=== PATIENT | female | born 1955 | race Caucasian/White ===

== ENCOUNTER 2017-11-15 12:24 | Observation (INO) | payer OTHER ==
[2017-11-15] MEDS ORDERED: HALOPERIDOL LACT 5 MG/ML INJ ONE ×2 (13:40→15:26)
[2017-11-15] MEDS ORDERED: LORazepam 2 MG/ML VIAL ONE (13:40)
--- NOTE | 2017-11-15 14:24 | RAD REPORT ---
EXAM DESCRIPTION: Wandy Single View11/15/2017 2:19 pm CLINICAL HISTORY: Chest pain COMPARISON: August 2017 FINDINGS: The lungs appear clear of acute infiltrate. The heart is normal size IMPRESSION: No acute abnormalities displayed
[2017-11-15 14:28] LABS: Protime INR 0.97
[2017-11-15 14:43] LABS: Absolute Lymphocytes (CBC) 1.6 K/uL (0.7-4.9); Absolute Monocytes 0.4 K/uL (0.1-1.3); Absolute Neutrophil 2.3 K/uL (1.8-8.0); Basophils % 0.8 % (0-1.3); Eosinophils % 2.4 % (0-4.4); Hematocrit 39.3 % (36.0-45.0); Lymphocytes % 36.5 % (15.3-44.8); MCH 28.8 pg (27.0-35.0); MCV 89.6 fL (80-100); MPV 10.2 fL (7.6-11.3); Monocytes % 9.4 % (3.3-12.3); RBC Red Blood Cell Count 4.39 M/uL (3.86-4.86)
[2017-11-15 15:08] LABS: CKMB Creatine Kinase MB 2.2 ng/ml (0.3-4.0); Potassium 3.9 mEq/L (3.6-5.0)
[2017-11-15 15:13] LABS: Albumin 3.6 g/dL (3.2-5.5); Bilirubin Direct 0.1 mg/dL (0-0.2); Bilirubin Total 0.4 mg/dL (0.3-1.2); Magnesium 1.9 mg/dL (1.8-2.5); Protein, Total 7.2 g/dL (6.0-8.3)
[2017-11-15 15:36] LABS: Barbiturates NEGATIVE; Benzodiazepines POSITIVE; Cocaine NEGATIVE; METHAMPHETAM NEGATIVE; Opiates NEGATIVE; Phencyclidine NEGATIVE; THC Cannibis NEGATIVE
[2017-11-15 16:00] LABS: Urine Blood NEGATIVE (NEG); Urine Glucose NEGATIVE (NEG); Urine Protein NEGATIVE (NEG)
--- NOTE | 2017-11-15 16:24 | RAD REPORT ---
EXAM DESCRIPTION: CT - Head Brain Wo Cont - 11/15/2017 4:13 pm CLINICAL HISTORY: Altered consciousness. COMPARISON: 08/15/2017, 06/25/2015 TECHNIQUE: All CT scans are performed using dose optimization technique as appropriate and may inclu de automated exposure control or mA/KV adjustment according to patient size. FINDINGS: No intracranial hemorrhage, hydrocephalus or extra-axial fluid collection.Moderate general ized brain atrophy is present with mild periventricular and deep white matter chronic microvascular i schemic changes.No areas of brain edema or evidence of midline shift. The paranasal sinuses and mastoids are clear. The calvarium is intact. IMPRESSION: No acute intracranial abnormality.
[2017-11-15] MEDS ORDERED: NA CHLORIDE 0.9% 1,000 ML ONE (16:38)
[2017-11-15 16:47] LABS: Urine Bacteria NONE SEEN /HPF (<20); Urine RBC <5 /HPF (NONE SEEN)
[2017-11-15 16:48] LABS: Urine Culture Reflex Order NOT NEEDED
--- NOTE | 2017-11-15 17:06 | ER ---
Nurse's Notes [facility] Name: Heidy Robison Age: 62 yrs Sex: Female : 1955 Arrival Date: 11/15/2017 Time: 12:25 Bed 3 Private MD: Diagnosis: Altered mental status, unspecified Presentation: 11/15 12:17 Presenting complaint: EMS states: pt lives with daughter and daughter left for about 45 sv minutes. Pt was found in her recliner with multiple open pill bottles around her and the counter. Unknown if pt took any pills. Pt was having visual hallucinations. Pt was cursing at EMS staff not wanting to come to the ER. Pt came into the ER with 2 point restraints d/t getting up off the stretcher en route. Pt was not able to hold a conversation with EMS staff. BS-82. Fentanyl patch to abdomen. Pt has confusion but is more confused today per daughter. Medications found around pt were Claritin, Guaifenesin, Sertraline, Excedrin, Doxepin, Ibuprofen, Latuda. Transition of care: patient was not received from another setting of care. Onset of symptoms was November 15, 2017. Care prior to arrival: Glucose check: 82 Restraints applied. 12:17 Method Of Arrival: EMS: [facility] sv 12:17 Acuity: ADELE 2 sv 12:18 Initial Sepsis Screen: Does the patient meet any 2 criteria? Altered Mental Status. No. sv Patient's initial sepsis screen is negative. Does the patient have a suspected source of infection? No. Patient's initial sepsis screen is negative. Triage Assessment: 12:30 General: Appears in no apparent distress. uncomfortable, Behavior is calm, cooperative, sv appropriate for age, Restraints taken off.. Pain: Complains of pain in left hip Pain currently is 3 out of 10 on a pain scale. EENT: No signs and/or symptoms were reported regarding the EENT system. Neuro: Level of Consciousness is awake, alert, obeys commands, Oriented to person, place, time, Speech is normal. Cardiovascular: Patient's skin is warm and dry. Respiratory: Respiratory effort is even, unlabored, Respiratory pattern is regular, symmetrical. GI: No signs and/or symptoms were reported involving the gastrointestinal system. : No signs and/or symptoms were reported regarding the genitourinary system. Derm: Skin is pink, warm \T\ dry. Musculoskeletal: bilateral hands contracted. Historical: - Allergies: 12:32 Abilify; sv 12:32 apremilast; sv 12:32 FLU VACCINE; sv 12:32 Seroquel; sv 12:32 Sulfa (Sulfonamide Antibiotics); sv - PMHx: 12:32 COPD; CVA; MAC; Lupus; RA; sv - PSHx: 12:32 Joint replacement; Gastric Bypass; ; sv - Immunization history:: Adult Immunizations up to date. - Social history:: Smoking status: Patient/guardian denies using tobacco. Screenin:29 Abuse screen: Denies threats or abuse. Denies injuries from another. Nutritional sv screening: No deficits noted. Tuberculosis screening: No symptoms or risk factors identified. Fall Risk No fall in past 12 months (0 pts). Secondary diagnosis (15 points) AMS. IV access (20 points). Ambulatory Aid- None/Bed Rest/Nurse Assist (0 pts). Gait- Normal/Bed Rest/Wheelchair (0 pts) Mental Status- Oriented to own ability (0 pts). Total Chester Fall Scale indicates Low Risk Score (25-44 pts). Fall prevention measures have been instituted. Side Rails Up X 2 Placed close to Nursing Station Frequent Obs/Assesments occuring As available Patient and Family Educated on Fall Prevention Program and strategies. Assessment: 12:35 Reassessment: See triage assessment. sv 13:10 Reassessment: Pt not cooperative, Kp NESS aware and at bedside with Dr Brown as well. sv Pt's daughter at bedside. 13:51 Reassessment: Pt refusing EKG. Pt medicated as ordered. Will try to attempt again. sv 14:00 Reassessment: Poison control called and informed of pt's status and medications she sv possibly took. Recommends 24 hour observation, toxicology workup, EKG, cardiac monitoring, IV fluids, f/u with psych. Case #[id number]. 15:20 Reassessment: Pt continues to not want to do the CT. Pt stated that she won't stay sv still for the pictures. Informed Kp NESS, medication ordered. 16:30 Reassessment: Pt. resting in room \T\ this time... family \T\ bedside. Appears to be in no rk 2 obvious distress \T\ this time. No needs voiced \T\ this time. 17:30 Reassessment: Pt. resting in room \T\ this time... mildly agitated. Iv fluids infusing. rk2 Appears to be in no obvious distress. No needs voiced \T\ this time. 18:31 Reassessment: DAUGHTER NAEEM PH# [phone], DAUGHTER RADHA PH# [phone]. tw2 18:47 Reassessment: Pt. appears to be sleeping \T\ this time, appears to be in no distress. rk2 Sitter outside room. No needs voiced \T\ this time. 19:30 Reassessment: Patient appears in no apparent distress at this time. Reassessment: Pt aa1 remains confused. Attempting to pull out IV and calling for her grand baby. Called 2nd floor to give report but was told nurse will call back. Neuro: Level of Consciousness is awake, alert, confused. Respiratory: Airway is patent Respiratory effort is even, unlabored, Respiratory pattern is regular, symmetrical. Derm: Skin is pink, warm \T\ dry. Vital Signs: 12:32 BP 158 / 98; Pulse 103; Resp 16; Temp 99.3(O); Pulse Ox 95% on R/A; sv 13:45 BP 163 / 86; Pulse 107 MON; Resp 13; Pulse Ox 100% on R/A; sv 15:07 BP 170 / 92; Pulse 112 MON; Resp 12; Pulse Ox 99% ; sv 16:00 BP 160 / 89; Pulse 117; Resp 16; Pulse Ox 99% ; sv 17:30 BP 135 / 69; Pulse 115; Resp 17; Pulse Ox 100% on R/A; rk2 18:00 BP 157 / 78; Pulse 99; Resp 17; rk2 18:30 BP 166 / 87; Pulse 103; Resp 17; rk2 19:30 BP 141 / 95; Pulse 98; Resp 18; Pulse Ox 99% on R/A; Pain 0/10; aa1 13:45 Sinus tachycardia sv 15:07 Sinus tachycardia sv ED Course: 12:25 Patient arrived in ED. sv 12:26 Eden Roblero, RORY is Primary Nurse. sv 12:27 Kp Gonzales PA is PHCP. cp 12:27 Andrei Brown MD is Attending Physician. cp 12:31 Triage completed. sv 12:35 Patient has correct armband on for positive identification. Bed in low position. Side sv rails up X2. Pulse ox on. NIBP on. Warm blanket given. Head of bed elevated. 12:52 Radiology exam delayed due to NURSE IN ROOM. sw 12:59 Patient refused EKG. at1 13:11 UDS Sent. dm5 13:20 Initial lab(s) drawn, by ED staff, sent to lab. Inserted saline lock: 22 gauge in right sv ,using aseptic technique. ankle, done by Dr Brown Blood collected. 13:30 Arm band placed on left ankle. sv 13:46 Basic Metabolic Panel Sent. sv 13:46 BNP Sent. sv 14:14 X-ray completed. Portable x-ray completed in exam room. Patient tolerated procedure sw well. 14:19 XRAY Chest (1 view) In Process Unspecified. EDMS 14:50 EKG done, by ED staff, reviewed by Kp NESS. sv 15:15 Mckeon cath inserted, using sterile technique, 16 Fr., by fl, balloon inflated, to sv gravity drainage, urine specimen collected. returned clear yellow urine. Patient tolerated poorly. 15:37 Radiology exam delayed due to PT UNABLE TO COME DOWN TO CT AT THIS TIME. kc3 16:13 CT Head Brain wo Cont In Process Unspecified. EDMS 16:13 CT completed. Patient tolerated procedure well. Patient moved back from CT. kc3 16:24 Report given to Valentina VALADEZ. sv 16:27 Primary Nurse role handed off by Eden Roblero RN sv 16:36 Valentina Waggoner, RORY is Primary Nurse. rk2 17:04 Roger Lopez DO is Hospitalizing Provider. cp 19:30 No provider procedures requiring assistance completed. Patient admitted, IV remains in aa1 place. Administered Medications: 13:51 Drug: HALdol (as decanoate) 2 mg Route: IM; Site: left gluteus; sv 14:54 Follow up: Response: No adverse reaction sv 13:51 Drug: Ativan 2 mg Route: IM; Site: left gluteus; sv 14:54 Follow up: Response: No adverse reaction sv 15:28 Drug: HALdol (as decanoate) 5 mg Route: IM; Site: left vastus lateralis; sv 16:40 Drug: NS 0.9% 1000 ml Route: IV; Rate: 1 bolus; Site: Other; rk2 19:00 Follow up: IV Status: Completed infusion aa1 Outcome: 17:05 Decision to Hospitalize by Provider. cp 19:54 Admitted to Med/surg accompanied by nurse, via stretcher, room 229, with chart, Report aa1 called to Myriam Virgen RN 19:54 Condition: stable 19:54 Discharge instructions given to patient, family, Instructed on the need for admit. 19:59 Patient left the ED. aa1 Signatures: Dispatcher [employer] EDMS Lamar Salinas, RN RN mariano5 Eden Roblero RN RN Glenys Holland RN RN aa1 Simona robison, waxer tender EKG Tat1 Gayle Johnson Corey, PA PA cp Wise, Tara, RN RN tw2 Valentina Waggoner RN RN rk2 Cindi Rowley kc3 Corrections: (The following items were deleted from the chart) 12:36 12:17 Presenting complaint: EMS states: pt lives with daughter and daughter left for sv about 45 minutes. Pt was found in her recliner with multiple open pill bottles around her and the counter. Unknown if pt took any pills. Pt was having visual hallucinations. Pt was cursing at EMS staff not wanting to come to the ER. Pt came into the ER with 2 point restraints d/t getting up off the stretcher en route. Pt was not able to hold a conversation with EMS staff. BS-82. Fentanyl patch to abdomen. Pt has confusion but is more confused today per daughter. sv
--- NOTE | 2017-11-15 17:06 | EDPHYS ---
Physician Documentation [facility] Name: Heidy Robison Age: 62 yrs Sex: Female : 1955 Arrival Date: 11/15/2017 Time: 12:25 Bed 3 Private MD: ED Physician Andrei Brown HPI: 11/15 12:31 This 62 yrs old Female presents to ER via Unassigned with complaints of cp altered mental status. 12:31 The patient presents with decreased mental status. Onset: The symptoms/episode cp began/occurred at an unknown time. 12:31 Possible causes: drug use, prescription medications. cp 12:31 Associated signs and symptoms: Pertinent negatives: chest pain, fever. Current cp symptoms: In the emergency department the patient's symptoms are unchanged from the initial presentation, despite home interventions. Patient's baseline: Neuro: alert and fully oriented, Motor: no deficits, Ambulation: walks without assistance, Speech: normal, The patient has a previous history of CVA. Daughter reports patient was hospitalized at [facility] in August 2017 for Serotonin Syndrome for approximately 1 week. Patient was discharged to rehab facility and then moved into home of another daughter. Patient was doing well and felt well enough to move back into own home with youngest daughter last week. Daughter believes patient has been taking prescribed meds of youngest daughter as patient began to seem altered for past 3 days. EMS and patient daughter report patient was found with empty bottles of prescribed medications today. Historical: - Allergies: 12:32 Abilify; sv 12:32 apremilast; sv 12:32 FLU VACCINE; sv 12:32 Seroquel; sv 12:32 Sulfa (Sulfonamide Antibiotics); sv - PMHx: 12:32 COPD; CVA; MAC; Lupus; RA; sv - PSHx: 12:32 Joint replacement; Gastric Bypass; ; sv - Immunization history:: Adult Immunizations up to date. - Social history:: Smoking status: Patient/guardian denies using tobacco. ROS: 12:35 Constitutional: Negative for body aches, chills, fever, poor PO intake. cp 12:35 Eyes: Negative for injury, pain, redness, and discharge. cp 12:35 ENT: Negative for drainage from ear(s), ear pain, sore throat, difficulty swallowing, difficulty handling secretions. 12:35 Cardiovascular: Negative for chest pain, edema, palpitations. 12:35 Respiratory: Negative for cough, shortness of breath, wheezing. 12:35 Abdomen/GI: Negative for abdominal pain, nausea, vomiting, and diarrhea, constipation, anorexia, rectal bleeding. 12:35 Back: Negative for pain at rest, pain with movement, radiated pain. 12:35 : Negative for urinary symptoms. 12:35 Skin: Negative for cellulitis, diaphoresis, rash. 12:35 Neuro: Positive for general weakness, Negative for altered mental status, dizziness, headache, syncope, near syncope. 12:35 All other systems are negative. Exam: 12:40 Constitutional: The patient appears in no acute distress, alert, awake, cp non-diaphoretic, non-toxic, well developed, well nourished. 12:40 Head/Face: Normocephalic, atraumatic. cp 12:40 Eyes: Periorbital structures: appear normal, Pupils: equal, round, and reactive to cp light and accomodation, Conjunctiva: normal, no exudate, no injection, Sclera: no appreciated abnormality, Lids and lashes: appear normal, bilaterally. 12:40 ENT: External ear(s): are unremarkable, Ear canal(s): are normal, clear, TM's: bulging, is not appreciated, bilaterally, dullness, bilaterally, erythema, is not appreciated, bilaterally, Nose: is normal, Mouth: Lips: moist, Oral mucosa: moist, Posterior pharynx: Airway: no evidence of obstruction, patent, Uvula: midline, swelling, is not appreciated, erythema, is not appreciated, exudate, is not appreciated. 12:40 Neck: ROM/movement: is normal, is supple, without pain, no range of motions limitations, no meningismus, no nuchal rigidity. 12:40 Chest/axilla: Inspection: normal, Palpation: is normal, no crepitus, no tenderness. 12:40 Cardiovascular: Rate: tachycardic, Rhythm: regular, Pulses: Pulses are 2+ in right radial artery and left radial artery. Edema: is not appreciated, JVD: is not appreciated. 12:40 Respiratory: the patient does not display signs of respiratory distress, Respirations: normal, no use of accessory muscles, no retractions, no splinting, no tachypnea, labored breathing, is not present, Breath sounds: are clear throughout, no decreased breath sounds, no stridor, no wheezing. 12:40 Abdomen/GI: Inspection: abdomen appears normal, Bowel sounds: active, all quadrants, Palpation: abdomen is soft and non-tender, in all quadrants, rebound tenderness, is not appreciated, voluntary guarding, is not appreciated, involuntary guarding, is not appreciated. 12:40 Back: pain, is absent, ROM is normal. 12:40 Musculoskeletal/extremity: Joints: All joints are normal except the bilateral metacarpal phalangeal and metatarsal phalangeal joints displays deformity, limited range of motion. 12:40 Skin: cellulitis, is not appreciated, no rash present. 12:40 Neuro: Orientation: to person, place, Not oriented to situation, Mentation: able to follow commands, slow to respond, confused, Memory: recent memory is impaired, Motor: 12:40 Psych: Behavior/mood is uncooperative. 14:50 ECG was reviewed by the Attending Physician. cp Vital Signs: 12:32 BP 158 / 98; Pulse 103; Resp 16; Temp 99.3(O); Pulse Ox 95% on R/A; sv 13:45 BP 163 / 86; Pulse 107 MON; Resp 13; Pulse Ox 100% on R/A; sv 15:07 BP 170 / 92; Pulse 112 MON; Resp 12; Pulse Ox 99% ; sv 16:00 BP 160 / 89; Pulse 117; Resp 16; Pulse Ox 99% ; sv 17:30 BP 135 / 69; Pulse 115; Resp 17; Pulse Ox 100% on R/A; rk2 18:00 BP 157 / 78; Pulse 99; Resp 17; rk2 18:30 BP 166 / 87; Pulse 103; Resp 17; rk2 19:30 BP 141 / 95; Pulse 98; Resp 18; Pulse Ox 99% on R/A; Pain 0/10; aa1 13:45 Sinus tachycardia sv 15:07 Sinus tachycardia sv MDM: 12:28 Patient medically screened. cp 13:00 Differential Diagnosis: CVA, electrolyte abnormality, alcohol intoxication, meningitis, cp overdose, TIA, UTI, volume depletion. 13:00 ED course: VSS. Patient is not candidate for tpa. Last normal reported by daughter was cp 3 days ago. 16:30 Data reviewed: vital signs, nurses notes, lab test result(s), EKG, radiologic studies, cp CT scan, plain films. 16:30 Response to treatment: the patient's symptoms have mildly improved after treatment. 16:34 Physician consultation: Roger Parraalicia [facility] was contacted at 16:35, regarding admission, cp to the telemetry unit. patient's condition, and will see patient in ED, immediately. 11/15 12:30 Order name: Basic Metabolic Panel 11/15 12:30 Order name: BNP 11/15 12:30 Order name: CBC with Diff; Complete Time: 15:07 11/15 16:05 Interpretation: Within normal limits. 11/15 12:30 Order name: Ckmb; Complete Time: 15:22 11/15 12:30 Order name: CPK; Complete Time: 15:22 11/15 12:30 Order name: LFT's; Complete Time: 15:22 11/15 16:04 Interpretation: Normal except: GLOB 3.6; A/G 1.0. 11/15 12:30 Order name: Magnesium; Complete Time: 15:22 11/15 12:30 Order name: PT-INR; Complete Time: 15:07 11/15 12:30 Order name: Ptt, Activated; Complete Time: 15:07 11/15 12:30 Order name: Troponin (emerg Dept Use Only); Complete Time: 15:07 11/15 12:31 Order name: Basic Metabolic Panel; Complete Time: 15:22 EDMS 11/15 15:22 Interpretation: Normal except: GFR 85. 11/15 12:31 Order name: BNP B-Type Natriuretic Peptide; Complete Time: 15:07 EDMS 11/15 15:07 Interpretation: Abnormal: BNP 145. 11/15 13:01 Order name: UDS 11/15 12:30 Order name: XRAY Chest (1 view); Complete Time: 15:07 11/15 12:30 Order name: Cardiac monitoring; Complete Time: 13:51 cp 11/15 12:30 Order name: CT Head Brain wo Cont; Complete Time: 16:26 cp 11/15 16:27 Interpretation: Report reviewed. 11/15 13:01 Order name: Urine Drug Screen; Complete Time: 16:03 EDMS 11/15 16:03 Interpretation: Normal except: BZO POSITIVE. 11/15 15:29 Order name: Urine Dipstick--Ancillary (enter results); Complete Time: 16:03 ag 11/15 16:04 Interpretation: Normal except: UKET 1+. cp 11/15 16:06 Order name: Urine Microscopic Only; Complete Time: 17:04 cp 11/15 17:04 Interpretation: Reviewed. cp 11/15 16:18 Order name: AMMONIA; Complete Time: 17:27 cp 11/15 17:28 Interpretation: Within normal limits: NASIM 17. cp 11/15 16:18 Order name: Lactate; Complete Time: 17:27 cp 11/15 17:27 Interpretation: LAC 7.6; Reviewed. cp 11/15 16:18 Order name: Procalcitonin cp 11/15 17:05 Order name: Brain Wo Cont EDMS 11/15 12:30 Order name: EKG - Nurse/Tech; Complete Time: 14:50 cp 11/15 12:30 Order name: IV Saline Lock; Complete Time: 13:46 cp 11/15 12:30 Order name: Labs collected and sent; Complete Time: 13:46 cp 11/15 12:30 Order name: O2 Per Protocol; Complete Time: 12:37 cp 11/15 12:30 Order name: O2 Sat Monitoring; Complete Time: 12:37 cp 11/15 12:30 Order name: Cath; Complete Time: 15:28 cp EC:50 Rate is 109 beats/min. Rhythm is regular. SC interval is normal. QRS interval is cp normal. QT interval is normal. No ST changes noted. Interpreted by me. Reviewed by me. Administered Medications: 13:51 Drug: HALdol (as decanoate) 2 mg Route: IM; Site: left gluteus; sv 14:54 Follow up: Response: No adverse reaction sv 13:51 Drug: Ativan 2 mg Route: IM; Site: left gluteus; sv 14:54 Follow up: Response: No adverse reaction sv 15:28 Drug: HALdol (as decanoate) 5 mg Route: IM; Site: left vastus lateralis; sv 16:40 Drug: NS 0.9% 1000 ml Route: IV; Rate: 1 bolus; Site: Other; rk2 19:00 Follow up: IV Status: Completed infusion aa1 Disposition: 11/15/17 17:05 Hospitalization ordered by Roger Lopez for Observation. Preliminary diagnosis is Altered mental status, unspecified. - Bed requested for Telemetry/MedSurg (observation). - Status is Observation. aa1 - Condition is Stable. - Problem is new. - Symptoms have improved. UTI on Admission? No Addendum: 12/01/2017 21:52 Co-signature as Attending Physician, Andrei Brown MD. g s Signatures: Dispatcher [employer] EDKY Eden Roblero RN RN Glenys Garcia RN RN aa1 Mallory Keith ag Kp Gonzales, PA PA cp Andrei Brown MD MD Valentina Waggoner RN RN rk2 Corrections: (The following items were deleted from the chart) 11/15 15:07 12:31 BLOOD CULTURE*+BA.LAB.BRZ ordered. EDKY EDKY 17:05 17:00 Brain With Cont ordered. [facility] EDKY 18:38 17:05 Hospitalization Ordered by Roger Lopez DO for Observation. Preliminary ag diagnosis is Altered mental status, unspecified. Bed requested for Telemetry/MedSurg (observation). Status is Observation. Condition is Stable. Problem is new. Symptoms have improved. UTI on Admission? No. cp 19:59 18:38 11/15/2017 17:05 Hospitalization Ordered by Roger Lopez DO for Observation. aa1 Preliminary diagnosis is Altered mental status, unspecified. Bed requested for Telemetry/MedSurg (observation). Status is Observation. Condition is Stable. Problem is new. Symptoms have improved. UTI on Admission? No. ag
--- NOTE | 2017-11-15 17:07 | P.HP ---
Certification for Inpatient Patient admitted to: Observation With expected LOS: <2 Midnights Patient will require the following post-hospital care: Other Practitioner: I am a practitioner with admitting privileges, knowledge of patient current condition, hospital course, and medical plan of care. Services: Services provided to patient in accordance with Admission requirements found in Title 42 Section 412.3 of the Code of Federal Regulations Patient History Date of Service: 11/15/17 Primary Care Provider: Dr. Campos([facility]); Pain-Dr. Ramey([place]) Reason for admission: Confusion History of Present Illness: 62-year-old female presented emergency room with confusion. Patient was brought in by family due to confusion. Patient had been seen at [facility] in September of 2017 for confusion. At that time she apparently overdosed on 1 of her depression medications causing serotonin syndrome. Since that time she went to rehab and eventually went home. Most recently she is staying with her daughter. She has home health and physical therapy. The patient began to have some confusion over the last several days. It is been worst. There was some concern that the patient may have overdosed on her medication. This could be pain and anxiety medication. Patient was not oriented x3. The patient recently changed to be with 1 of her other daughters. At the current time the patient is giving herself her medication. Prior to this , her daughter was giving the medication to her. In the ER the patient was evaluated. The patient was confused. She did receive Haldol and Ativan in the emergency room. Her fentanyl was taken off. On initial lab work CBC, CMP was unremarkable. Head CT showed no acute changes. Chest x-ray unremarkable. Urinalysis negative. Urine drug screen was positive for benzodiazepine. The patient was stabilize. Due to the nature of her presentation the patient was admitted for observation. I was asked to admit the patient. When I saw the patient in the ER, her confusion had resolved. She was oriented x3. She is very appropriate. Patient with multiple medical problems including mitral valve prolapse, hypertension, chronic pain, rheumatoid Fridays, depression with anxiety, and a history of MAC. Patient does not smoke or drink. She is a . Allergies flu vaccine 2011-(18-64 yrs) Allergy (Unknown, Verified 08/16/17 18:16) Shortness of breath Sulfa (Sulfonamide Antibiotics) Allergy (Unknown, Verified 08/16/17 18:16) Itching apremilast [From Otezla] Allergy (Verified 08/16/17 18:16) Unknown aripiprazole [From Abilify] Allergy (Verified 08/16/17 18:16) Unknown quetiapine fumarate [From Seroquel] Allergy (Verified 08/16/17 18:16) Unknown H1N1 vaccine Allergy (Uncoded 06/25/15 05:09) Unknown Home medications list reviewed: Yes Home Medications: Amitriptyline HCl 75 mg PO BEDTIME 08/15/17 Azithromycin 500 mg PO SEECOM 08/15/17 Baclofen 10 mg PO TIDP PRN 08/15/17 Buspirone HCl 15 mg PO TID 08/15/17 Doxepin HCl 75 mg PO BEDTIME 08/15/17 Eszopiclone [Lunesta*] 3 mg PO BEDTIME 08/15/17 Ethambutol HCl [Myambutol] 400 mg PO SEECOM 08/15/17 Hydrocodone 10/APAP 325 [[place] 10/325*] 1 tab PO Q4HP PRN 08/15/17 Hydroxychloroquine [Plaquenil*] 300 mg PO DAILY 08/15/17 Levetiracetam [Keppra*] 500 mg PO DAILY 08/15/17 Levothyroxine Sodium [Levoxyl] 100 mcg PO DAILY 08/15/17 Lorazepam [Ativan*] 0.5 mg PO TIDP PRN 08/15/17 Pregabalin [Lyrica] 100 mg PO TID 08/15/17 Rifabutin 150 mg PO SEECOM 08/15/17 Sertraline [Zoloft*] 100 mg PO BID 08/15/17 Fentanyl 1 each TD SEECOM 08/16/17 Fentanyl [Duragesic] 1 each TD SEECOM 08/16/17 Melatonin 20 mg PO BEDTIME 08/16/17 Ipratropium Mdi [Atrovent Hf Inhaler*] 200 puff IH TID PRN 08/17/17 Albuterol Neb [Proventil 0.083% Neb Soln] 2.5 mg NEB TID PRN #90 amp 08/18/17 Arformoterol Tartrate [Brovana] 15 mcg NEB BIDRESP #60 vial.neb 08/18/17 Cefuroxime [Ceftin*] 500 mg PO BID #14 tab 08/18/17 Magnesium Oxide [Mag 0X Tab] 400 mg PO DAILY #30 tab 08/18/17 Metoprolol Tartrate [Lopressor*] 25 mg PO BID 6AM 6PM #60 tab 08/18/17 Pantoprazole [Protonix Tab*] 40 mg PO DAILYAC #30 tab 08/18/17 Prednisone [Deltasone*] 10 mg PO SEECOM #15 tab 08/18/17 - Past Medical/Surgical History Diabetic: No -: History of MAC -: HTN -: Mitral valve prolapse -: Chronic pain -: Depression with anxiety -: Rheumatoid arthritis -: History of medication overdose -: History of gastric bypass -: GERD -: Hypothyroidism -: L hip replacement -: Gastric Bypass -: -: Cholecystectomy Psychosocial/ Personal History: The patient currently lives with one of her daughters. She is a . She has 4 children. - Family History Family History: Reviewed- Non-Contributory - Social History Smoking Status: Never smoker Alcohol use: No CD- Drugs: No Caffeine use: Yes Place of Residence: Home Review of Systems General: As per HPI Eyes: Unremarkable ENT: Unremarkable Respiratory: Unremarkable Cardiovascular: Unremarkable Gastrointestinal: Unremarkable Genitourinary: Unremarkable Musculoskeletal: Unremarkable Integumentary: Unremarkable Neurological: Confusion, As per HPI Lymphatics: Unremarkable Physical Examination - Physical Exam General: Alert, In no apparent distress, Oriented x3, Cooperative, Other ( Patient appropriate. Patient not suicidal) HEENT: Atraumatic, Normocephalic, PERRLA, Mucous membr. moist/pink Neck: Supple, No Thyromegaly Respiratory: Clear to auscultation bilaterally, Normal air movement Cardiovascular: Normal pulses, Regular rate/rhythm Gastrointestinal: Normal bowel sounds, Soft and benign, Non-distended, No tenderness, No masses, No rebound, No guarding Musculoskeletal: No erythema, No tenderness, No warmth Integumentary: No tenderness/swelling, No erythema, No warmth, No cyanosis Neurological: Normal speech, Normal strength at 5/5 x4 extr, Normal tone, Normal affect - Studies Laboratory Data (last 24 hrs) 11/15/17 13:30: PT 11.5, INR 0.97, APTT 28.4 11/15/17 13:30: WBC 4.5, Hgb 12.6, Hct 39.3, Plt Count 167 11/15/17 13:30: B-Natriuretic Peptide 145 H 11/15/17 13:30: Sodium 139, Potassium 3.9, BUN 8, Creatinine 0.70, Glucose 86, Magnesium 1.9, Total Bilirubin 0.4, AST 20, ALT 14, Alkaline Phosphatase 77 Assessment and Plan - Problems (Diagnosis) (1) Overdose of drug Current Visit: Yes Status: Acute Plan: Patient likely overdose on her anxiety and pain medication. Patient now back to baseline. Will continue with her normal regimen of medication. Patient not suicidal this time. Will have physical therapy assess ambulation. Will have social worker delinquency prevention reassess her mental status. Patient will need home health and physical therapy at discharge. Will reassess tomorrow. At a long discussion with the family. They understand that they will need to administer her medication to prevent overdose. This has happen once before. Will check MRI stroke protocol to rule out stroke. No signs infection at this time. No need for antibiotic therapy. Patient with history of MAC. Will treat with her medication. Qualifiers: Encounter type: initial encounter Injury intent: accidental or unintentional Qualified Code(s): T50.901A - Poisoning by unspecified drugs, medicaments and biological substances, accidental (unintentional), initial encounter (2) Dehydration Current Visit: Yes Status: Acute Plan: Will start IV fluids. Will monitor closely. (3) Acute encephalopathy Onset Date: 08/16/17 Current Visit: No Status: Acute Plan: Likely from overdose of medication. Will continue as above. (4) Bipolar disorder Current Visit: No Status: Chronic Plan: Patient with bipolar disorder. Will need to restart her medication. Qualifiers: Active/Remission status: remission status unspecified Qualified Code(s): F31.9 - Bipolar disorder, unspecified (5) Chronic pain disorder Current Visit: No Status: Chronic Plan: Patient with chronic pain. Will decrease her fentanyl patch from 125 to 100 mcg. Will provide medication. Will review home medications. (6) GERD (gastroesophageal reflux disease) Current Visit: No Status: Chronic Plan: Will continue with her medication Qualifiers: Esophagitis presence: esophagitis presence not specified Qualified Code(s) : K21.9 - Gastro-esophageal reflux disease without esophagitis (7) History of MAC infection Current Visit: No Status: Chronic Plan: Will continue with her medication (8) Hypertension Current Visit: No Status: Chronic Plan: Will continue with her medication and adjust appropriately. Qualifiers: Hypertension type: essential hypertension Qualified Code(s): I10 - Essential (primary) hypertension (9) Hypothyroidism Current Visit: No Status: Chronic Plan: Will check tsh. Will continue with her medication Qualifiers: Hypothyroidism type: unspecified Qualified Code(s): E03.9 - Hypothyroidism , unspecified (10) Insomnia Current Visit: No Status: Chronic Plan: Will continue with her medication Qualifiers: Insomnia type: unspecified Qualified Code(s): G47.00 - Insomnia, unspecified (11) Rheumatoid arthritis Current Visit: No Status: Chronic Plan: Will continue with her medication. Qualifiers: Rheumatoid arthritis location: unspecified site Rheumatoid factor presence : unspecified presence Qualified Code(s): M06.9 - Rheumatoid arthritis, unspecified Discharge Plan: Home Plan to discharge in: 24 Hours - Advance Directives Does patient have a Living Will: No Does patient have a Durable POA for Healthcare: No - Code Status/Comfort Care Code Status Assessed: Yes Time Spent Managing Pts Care (In Minutes): 55
[2017-11-15] MEDS ORDERED: ZIPRASIDONE MESYLA 20 MG/VIAL IM ONE (19:44)
[2017-11-15] MEDS ORDERED: WATER FOR INJ,STERILE 10 ML ONE (19:45)
[2017-11-15] MEDS ORDERED: ACETAMINOPHEN 500 MG TAB PO PRN (19:53)
[2017-11-15] MEDS ORDERED: WATER FOR INJ,STERILE 10 ML IM PRN (19:53)
[2017-11-15] MEDS ORDERED: LORazepam 2 MG/ML VIAL IV PRN (19:53)
[2017-11-15] MEDS ORDERED: ZIPRASIDONE MESYLA 20 MG/VIAL IM PRN (19:53)
[2017-11-15] MEDS ORDERED: ESZOPICLONE 1 MG TAB PO PRN (19:53)
[2017-11-15] MEDS ORDERED: HYDROCODONE/APAP 7.5/325 MG TAB PO PRN (19:53)
[2017-11-15] MEDS ORDERED: ONDANSETRON 4 MG/2 ML VIAL IV PRN (19:53)
[2017-11-15] MEDS: NA CHLORIDE 0.9% 1,000 ML IV SCH (19:53)
[2017-11-15] MEDS: SUCRALFATE 1 GM TABLET PO SCH (21:51)
--- NOTE | 2017-11-15 21:51 | RAD REPORT ---
EXAM DESCRIPTION: MRI - Brain Wo Cont - 11/15/2017 9:29 pm CLINICAL HISTORY: Alteration of consciousness COMPARISON: November 15 CT TECHNIQUE: Axial, sagittal, and coronal magnetic images of the brain were obtained. Contrast was not requested FINDINGS: Small areas increased signal are present within periventricular and deep white matter like ly secondary to ischemic changes secondary to small vessel disease. Diffusion-weighted/ADC mapping does not reveal evidence of acute infarction. The ventricles are normal caliber. An extra-axial fluid collection is not present The sinuses and mastoids are clear. IMPRESSION: No acute intracranial abnormality seen
[2017-11-15] MEDS: BUSPIRONE HCL 5 MG TABLET PO SCH (21:52)
[2017-11-16 00:20] LABS: Alcohol Serum/Plasma < 10 mg/dl; Salicylates Level < 4.0 mg/dl (<30)
[2017-11-16 05:16] LABS: Absolute Lymphocytes (CBC) 1.4 K/uL (0.7-4.9); Absolute Monocytes 0.4 K/uL (0.1-1.3); Absolute Neutrophil 2.9 K/uL (1.8-8.0); Basophils % 0.9 % (0-1.3); Eosinophils % 1.4 % (0-4.4); Hematocrit 40.8 % (36.0-45.0); Lymphocytes % 28.9 % (15.3-44.8); MCH 28.8 pg (27.0-35.0); MCV 89.4 fL (80-100); MPV 9.6 fL (7.6-11.3); RBC Red Blood Cell Count 4.56 M/uL (3.86-4.86)
[2017-11-16 05:23] VITALS: BMI 20.7
[2017-11-16] MEDS ORDERED: PANTOPRAZOLE 40MG TABLET PO SCH (06:30)
[2017-11-16 06:32] VITALS: O2SAT 95
--- NOTE | 2017-11-16 06:58 | EKG ---
Test Date: 2017-11-15 Test Time: 14:44:13 [employer]: FLORENCIO MEASUREMENT RESULTS: Intervals: Rate: 109 UT: 124 QRSD: 72 QT: 340 QTc: 457 [place]: P: 53 UT: 124 QRS: 15 T: 36 INTERPRETIVE STATEMENTS: Sinus tachycardia with occasional premature ventricular complexes Otherwise normal ECG Compared to ECG 08/15/2017 08:27:55 Ventricular premature complex(es) now present Electronically Signed On 11-16-17 06:58:03 CDT by Roberto Carlos Lal
[2017-11-16 07:07] LABS: Urine Appearance CLEAR; Urine Bilirubin NEGATIVE (NEG); Urine Blood NEGATIVE (NEG); Urine Color YELLOW; Urine Glucose NEGATIVE (NEG); Urine Protein NEGATIVE (NEG); Urine Urobilinogen 0.2 mg/dL (0.2-1.0); Urine pH 6.5 (5.0-7.0)
[2017-11-16 07:22] LABS: Magnesium 1.9 mg/dL (1.8-2.5); Potassium 4.3 mEq/L (3.6-5.0); Thyroid Stimulating Hormone 3.46 uIU/mL (0.34-5.60)
[2017-11-16 07:23] LABS: Urine Microscopic Reflex ORDER UMIC
[2017-11-16 07:48] LABS: Urine Bacteria >50 /HPF (<20); Urine RBC <5 /HPF (NONE SEEN)
[2017-11-16 07:49] LABS: Urine Culture Reflex Order REFLEXED
[2017-11-16] MEDS ORDERED: SERTRALINE HCL 50 MG TAB PO SCH (09:00)
[2017-11-16] MEDS ORDERED: SMZ./TMP. 800/160 MG TABLET PO SCH (09:00)
[2017-11-16] MEDS ORDERED: HYDROXYCHLOROQUINE 200MG TAB PO SCH (09:00)
[2017-11-16] MEDS ORDERED: LISINOPRIL 10 MG TAB PO SCH (09:00)
[2017-11-16] MEDS ORDERED: AMLODIPINE 5 MG TAB PO SCH (09:00)
[2017-11-16] MEDS ORDERED: ENOXAPARIN 40 MG/0.4 ML SQ SCH (09:00)
[2017-11-16] MEDS ORDERED: DULOXETINE 30 MG CAP PO SCH (09:00)
[2017-11-16] MEDS: NA CHLORIDE 0.9% 1,000 ML IV SCH (09:13)
[2017-11-16] MEDS: BUSPIRONE HCL 5 MG TABLET PO SCH ×2 (10:03→15:49)
[2017-11-16] MEDS: SUCRALFATE 1 GM TABLET PO SCH (10:03)
[2017-11-16] MEDS ORDERED: CEFTRIAXONE/SWI 1gm 1 GM/10 ML SYR IV SCH (10:30)
--- NOTE | 2017-11-16 11:42 | P.DS ---
Admission Date: 11/15/17 Discharge Date: 11/16/17 Primary Care Provider: Dr. Campos([facility]); Pain-Dr. Ramey([place]) Disposition: DC HOME/HOME HEALTH CARE Discharge Condition: GOOD Reason for Admission: Confusion Procedures: MRI brain: No acute changes noted. CT head: No acute changes noted. - Problems (1) Overdose of drug Onset Date: 11/16/17 Current Visit: Yes Status: Acute Qualifiers: Encounter type: initial encounter Injury intent: accidental or unintentional Qualified Code(s): T50.901A - Poisoning by unspecified drugs, medicaments and biological substances, accidental (unintentional), initial encounter (2) Dehydration Onset Date: 11/16/17 Current Visit: Yes Status: Acute (3) Acute encephalopathy Onset Date: 08/16/17 Current Visit: No Status: Acute (4) Bipolar disorder Onset Date: 11/16/17 Current Visit: Yes Status: Chronic Qualifiers: Active/Remission status: remission status unspecified Qualified Code(s): F31.9 - Bipolar disorder, unspecified (5) Chronic pain disorder Onset Date: 11/16/17 Current Visit: Yes Status: Chronic (6) GERD (gastroesophageal reflux disease) Onset Date: 11/16/17 Current Visit: Yes Status: Chronic Qualifiers: Esophagitis presence: esophagitis presence not specified Qualified Code(s) : K21.9 - Gastro-esophageal reflux disease without esophagitis (7) History of MAC infection Current Visit: No Status: Chronic (8) Hypertension Onset Date: 11/16/17 Current Visit: Yes Status: Chronic Qualifiers: Hypertension type: essential hypertension Qualified Code(s): I10 - Essential (primary) hypertension (9) Hypothyroidism Onset Date: 11/16/17 Current Visit: Yes Status: Chronic Qualifiers: Hypothyroidism type: unspecified Qualified Code(s): E03.9 - Hypothyroidism , unspecified (10) Insomnia Onset Date: 11/16/17 Current Visit: Yes Status: Chronic Qualifiers: Insomnia type: unspecified Qualified Code(s): G47.00 - Insomnia, unspecified (11) Rheumatoid arthritis Onset Date: 11/16/17 Current Visit: Yes Status: Chronic Qualifiers: Rheumatoid arthritis location: unspecified site Rheumatoid factor presence : unspecified presence Qualified Code(s): M06.9 - Rheumatoid arthritis, unspecified (12) Neuropathic arthritis Current Visit: Yes Status: Chronic (13) Chronic renal disease Current Visit: Yes Status: Chronic Qualifiers: Chronic kidney disease stage: stage 1 Qualified Code(s): N18.1 - Chronic kidney disease, stage 1 (14) Grief reaction Current Visit: Yes Status: Chronic Brief History of Present Illness: 62-year-old female presented emergency room with confusion. Patient was brought in by family due to confusion. Patient had been seen at [facility] in September of 2017 for confusion. At that time she apparently overdosed on 1 of her depression medications causing serotonin syndrome. Since that time she went to rehab and eventually went home. Most recently she is staying with her daughter. She has home health and physical therapy. The patient began to have some confusion over the last several days. It is been worst. There was some concern that the patient may have overdosed on her medication. This could be pain and anxiety medication. Patient was not oriented x3. The patient recently changed to be with 1 of her other daughters. At the current time the patient is giving herself her medication. Prior to this , her daughter was giving the medication to her. In the ER the patient was evaluated. The patient was confused. She did receive Haldol and Ativan in the emergency room. Her fentanyl was taken off. On initial lab work CBC, CMP was unremarkable. Head CT showed no acute changes. Chest x-ray unremarkable. Urinalysis negative. Urine drug screen was positive for benzodiazepine. The patient was stabilize. Due to the nature of her presentation the patient was admitted for observation. I was asked to admit the patient. When I saw the patient in the ER, her confusion had resolved. She was oriented x3. She is very appropriate. Patient with multiple medical problems including mitral valve prolapse, hypertension, chronic pain, rheumatoid Fridays, depression with anxiety, and a history of MAC. Patient does not smoke or drink. She is a . Hospital Course: Patient did well overnight. Patient did not have any further altered mental status changes. Acute encephalopathy likely related to overmedication. This appears to be accidental. One of the daughters reports that she may have taken one of the daughter's psychiatric medication. Family reports that she has had this happen prior. Patient was hospitalized at [facility] for a similar reason early this year. Patient is not suicidal or homicidal at this time. Patient denied suicide ideations during her stay. This was discussed in detail with family present along with geriatric social worker. They understand that the patient does not meet criteria to be hospitalized to a psychiatric facility since the patient is not a danger to herself or to others. Behavioral crisis team was called for recommendations. They explained that the patient does not meet criteria for psychiatric transfer. This was done with family, myself and social work present. They did provide a number to the daughter in the event that the patient is suicidal. This will allow for a mental health officer to come to the home to evaluate the patient. I also tried to get in contact with her psychiatrist. I left a message for the psychiatrist. I will discuss with the psychiatrist to see if the patient can be seen within the next 1-2 days to follow up this hospitalization. Patient likely has underlying bipolar disorder. Patient will be discharged home with arrangements. services tech has arranged for home health for strict monitoring and compliance with medications. Behavioral home health will also be arranged. I had a long discussion with the niece and daughter in detail concerning her case. The daughter will take care of the patient. This daughter had taking care the patient for long period of time without any problems. The daughter had reported that she felt the patient no longer needed to be with her and that is why she was at home recently. Her daughter lives in [place], [place] and is a teacher. It appears that she has been doing a good job of taking care of her. Prior to discharge I did go over medications with the daughter including frequency and dosages. I will update her list. Once I get in contact with a psychiatrist I will make arrangements so that the patient can be seen within 1- 2 days. Family understands instructions. Patient has underlying mental health issues. Patient had recent loss of . Patient may also be going through grief process. I will recommend that the patient see her psychiatrist within the next 1-2 days. Patient may require grief counseling. Patient has hypertension. She will continue with her medication-Lisinopril 10 mg daily and Norvasc 10 mg daily. Recommendation to maintain blood pressures less 150/80. Further adjustment can be done by her PCP. She is to hold her medication if BP less than 110 sys. This remained stable during her stay. Patient has hypothyroidism. Lab unremarkable. She will continue with her medication-levothyroxine 100 mcg daily. Patient likely has underlying bipolar disorder. Patient will continue with her medications. Medications were confirmed with family and pharmacy. Medications include Buspar 10 mg 1 pill 3 times a day, Cymbalta 30 mg once daily, Zoloft 100 mg once daily, Ativan 0.5 mg 1 pill twice daily as needed for anxiety. As directed above patient will need a follow up with psychiatry as an outpatient to further monitor and address. Family is to contact mental health crisis center if patient has increased behavioral changes, suicidal ideation, or homicidal tendencies. Patient has GERD. Patient will continue with her medication-Protonix 40 mg 1 pill once daily and Carafate 1 pill twice daily. Patient with chronic pain management for rheumatoid arthritis and neuropathy. Patient will continue with her current pain regimen-Lyrica 100 mg 1 pill 3 times a day and fentanyl patch 125 mcg every 3 days. Recommendation is to decrease Fentanyl to 100 mcg every 3 days. Patient is taking [place] 10/325 mg one pill 3 times a day as needed for pain. Family is to limit p.r.n. medication. Recommendations for the patient follow up with pain management to further monitor and address her condition. Patient with history of CVA. CT head and MRI of brain showed no acute stroke. She will continue with her medication-aspirin 81 mg daily. Patient with history of MAC. X-ray showed no acute findings. She will continue with her medication medications-Bactrim once daily, Zithromax 500 mg every Tuesday, Wednesdays and Fridays, rifampin 300 mg every Mondays, Wednesdays and Fridays, and Ethambutol 400 mg 4 pills every Mondays, Wednesdays and Fridays. She is to follow up with infectious disease and pulmonology as an outpatient to further monitor. Patient has history of chronic renal disease. Recommendation is to no longer use nonsteroidal anti-inflammatories. Recommend to recheck lab-BMP in 1-2 weeks to monitor progress. I will recommend to discontinue Celebrex. Recommendation for the patient to follow up with nephrology as an outpatient to further monitor. Patient with history of insomnia. Patient to continue with her medication- Lunesta 3 mg every night. Will recommend to discontinue melatonin. Patient with history of migraine headaches. She will continue with Imitrex as needed. Patient has been using p.r.n. medication including [place] and baclofen. I will recommend to limit these medications as much as possible. Fall precautions will be provided. As mentioned above home health services will be arranged to closely monitor her medications and compliance. At discharge recommendation is for the patient to have repeat lab-BMP and CBC in 1 week to monitor progress. Her PCP will need to follow up on the urine culture at discharge. Vital Signs/Physical Exam: Temp Pulse Resp BP Pulse Ox 97.5 F 98 H 18 136/77 95 11/16/17 11:33 11/16/17 11:33 11/16/17 11:33 11/16/17 11:33 11/16/17 11:33 General: Alert, In no apparent distress, Oriented x3, Cooperative HEENT: Atraumatic Neck: Supple Respiratory: Clear to auscultation bilaterally, Normal air movement Cardiovascular: Normal pulses, Regular rate/rhythm Gastrointestinal: Normal bowel sounds, Soft and benign, Non-distended, No tenderness, No masses, No rebound, No guarding Musculoskeletal: No erythema, No tenderness, No warmth Integumentary: No tenderness/swelling, No erythema, No warmth, No cyanosis Neurological: Normal speech, Normal strength at 5/5 x4 extr, Normal tone, Normal affect Lymphatics: No axilla or inguinal lymphadenopathy Laboratory Data at Discharge: WBC 4.8 K/uL (4.3-10.9) 11/16/17 04:52 Hgb 13.2 g/dL (12.0-15.0) 11/16/17 04:52 Hct 40.8 % (36.0-45.0) 11/16/17 04:52 Plt Count 173 K/uL (152-406) 11/16/17 04:52 PT 11.5 SECONDS (9.5-12.5) 11/15/17 13:30 INR 0.97 11/15/17 13:30 APTT 28.4 SECONDS (24.3-36.9) 11/15/17 13:30 Sodium 140 mEq/L (135-145) 11/16/17 04:52 Potassium 4.3 mEq/L (3.6-5.0) 11/16/17 04:52 BUN 7 mg/dL (6-20) 11/16/17 04:52 Creatinine 0.69 mg/dL (0.44-1.00) 11/16/17 04:52 Glucose 73 mg/dL (65-120) 11/16/17 04:52 Magnesium 1.9 mg/dL (1.8-2.5) 11/16/17 04:52 Total Bilirubin 0.4 mg/dL (0.3-1.2) 11/15/17 13:30 AST 20 IU/L (10-42) 11/15/17 13:30 ALT 14 IU/L (10-60) 11/15/17 13:30 Alkaline Phosphatase 77 IU/L (42-121) 11/15/17 13:30 B-Natriuretic Peptide 145 pg/ml (<=100) H 11/15/17 13:30 Home Medications: Azithromycin 500 mg PO SEECOM 08/15/17 Hydrocodone 10/APAP 325 [[place] 10/325*] 1 tab PO Q4HP PRN 08/15/17 Levothyroxine Sodium [Levoxyl] 100 mcg PO DAILY 08/15/17 Lorazepam [Ativan*] 0.5 mg PO TID 08/15/17 Fentanyl 1 each TD SEECOM 08/16/17 Fentanyl [Duragesic] 1 tab TD SEECOM 08/16/17 Pantoprazole [Protonix Tab*] 40 mg PO DAILYAC #30 tab 08/18/17 Amlodipine Besylate 10 mg PO DAILY 11/16/17 Buspirone HCl [Buspar*] 10 mg PO TID tab 11/16/17 Duloxetine HCl 30 mg PO DAILY 11/16/17 Ethambutol HCl [Myambutol] 400 mg PO SEECOM 11/16/17 Hydroxychloroquine [Plaquenil*] 200 mg PO DAILY tab 11/16/17 Lisinopril [Prinivil*] 10 mg PO DAILY tab 11/16/17 Pregabalin [Lyrica*] 100 mg PO TID 11/16/17 Rifampin 300 mg PO SEECOM 11/16/17 Sertraline [Zoloft*] 100 mg PO DAILY tab 11/16/17 Smz./Tmp. [Bactrim Ds 800 MG/160 MG*] 1 tab PO DAILY tab 11/16/17 Sucralfate [Carafate*] 1 gm PO BID tab 11/16/17 Sucralfate [Carafate*] 1 gm PO SEECOM 11/16/17 Patient Discharge Instructions: 1. Patient will need to follow up with her PCP in 1 week to follow up this hospitalization. 2. Patient presented with acute encephalopathy likely related to overmedication. This appears to be accidental. Family reports that she has had this happen prior. Patient is not suicidal or homicidal at this time. Patient denied suicide ideations during her stay. This was discussed in detail with family present along with geriatric social worker. They understand that the patient does not meet criteria to be hospitalized to a psychiatric facility since the patient is not a danger to herself or to others. Behavioral crisis team can be consulted if she has behavioral changes at home. Social work provided the number. Recommendation is the patient to follow up with psychiatry in 1-2 days to follow up this hospitalization. I will get in contact with psychiatry to confirm this. services tech has arranged for home health for strict monitoring and compliance with medications. Behavioral home health will also be arranged. 3. Patient has underlying mental health issues. Patient also had recent loss of . Patient may also be going through grief process. I will recommend that the patient see her psychiatrist within the next 1-2 days. Patient may require grief counseling. 4. Patient has hypertension. This remained stable during her stay. She will continue with her medication-lisinopril 10 mg daily and Norvasc 10 mg daily. Recommendation to maintain blood pressures less 150/ 80. Further adjustment can be done by her PCP. 5. Patient has hypothyroidism. She will continue with her medication-levothyroxine 100 mcg daily. 6. Patient likely has underlying bipolar disorder. Patient will continue with her medications. Medications were confirmed with family and pharmacy. Medications include Buspar 10 mg 1 pill 3 times a day, Cymbalta 30 mg once daily, Zoloft 100 mg once daily, Ativan 0.5 mg 1 pill twice daily as needed for anxiety. These medications will be continued at discharge. As directed above, patient will need a follow up with psychiatry as an outpatient to further monitor and address her mental health illness. Recommendation is for the patient to follow up with psychiatry within the 1-2 days. 7. Patient has GERD. Patient will continue with her medication-Protonix 40 mg 1 pill once daily and Carafate 1 pill twice daily. 8. Patient with chronic pain management for rheumatoid arthritis and neuropathy. At discharge, Patient will continue with her current pain regimen-Lyrica 100 mg 1 pill 3 times a day and fentanyl patch 125 mcg every 3 days. Recommendation is to decrease fentanyl patch to 100 mcg every 3 days. Patient is taking [place] 10/325 one pill 3 times a day as needed for pain. Family is to limit p.r.n. medication. Recommendations for the patient follow up with pain management to further monitor and address her condition. 9. Patient with history of CVA. CT head and MRI of brain showed no acute stroke. She will continue with her medication- aspirin 81 mg daily. 10. Patient with history of MAC. X-ray showed no acute findings. At discharge patient will continue with her medication medications- Bactrim once daily, Zithromax 500 mg every Tuesday, Wednesdays and Fridays, rifampin 300 mg every Mondays, Wednesdays and Fridays, and Ethambutol 400 mg 4 pills every Mondays, Wednesdays and Fridays. She is to follow up with infectious disease and pulmonology as an outpatient to further monitor. 11. Patient has history of chronic renal disease. Recommendation is to no longer use nonsteroidal anti-inflammatories is to recheck lab-BMP in 1-2 weeks to monitor progress. I will recommend to discontinue Celebrex. Recommendation for the patient to follow up with nephrology as an outpatient to further monitor. 12. Patient with history of insomnia. Patient to continue with her medication-Lunesta 3 mg at night. Recommendation to discontinue melatonin. Further adjustment can be done by her psychiatrist. 13. Patient with history of migraine headaches. She will continue with Imitrex as needed. 14. Patient has been using p.r.n. medication including [place] and baclofen. Recommendation is to limit these medications as much as possible. 15. Fall precautions will be provided. As mentioned above home health services will be arranged to closely monitor her medications and compliance. 16. At discharge recommendation is for the patient to have repeat lab-BMP and CBC in 1 week to monitor progress. Her PCP will need to follow up on the urine culture at discharge. Diet: AHA Activity: Fall precautions Time spent managing pt's care (in minutes): 75
[2017-11-16 15:30] VITALS: BP 140/78; TEMP 97.2
[2017-11-18] MEDS ORDERED: FENTANYL 100 MCG/PATCH TD SCH (09:00)
== END 2017-11-16 16:23 | disposition home health service (06) ==
LOC: ER 12:24 → ERHOLD 17:09 → 2ND 19:26
PROVIDERS: ADMIT Family Medicine; ATTEND Family Medicine
DX: G93.40 Encephalopathy, unspecified (principal); T50.901A Poisoning by unspecified drugs, medicaments and biological substances, accidental (unintentional), initial encounter; Y92.009 Unspecified place in unspecified non-institutional (private) residence as the place of occurrence of the external cause; E03.9 Hypothyroidism, unspecified; K21.9 Gastro-esophageal reflux disease without esophagitis; I12.9 Hypertensive chronic kidney disease with stage 1 through stage 4 chronic kidney disease, or unspecified chronic kidney disease; N18.1 Chronic kidney disease, stage 1; M06.9 Rheumatoid arthritis, unspecified; G47.00 Insomnia, unspecified; M14.60 Charcot's joint, unspecified site; F43.20 Adjustment disorder, unspecified; F31.9 Bipolar disorder, unspecified; E86.0 Dehydration; G89.29 Other chronic pain; Z86.73 Personal history of transient ischemic attack (TIA), and cerebral infarction without residual deficits
CPT/HCPCS: 36415; 51702; 70450; 70551; 71045; 80048 ×2; 80076; 80307 ×9; 80320; 80329 ×2; 82140; 82550; 82553; 83605; 83735 ×2; 83880; 84145; 84439; 84443; 84484; 85025 ×2; 85610; 85730; 87077 ×2; 87086; 87088; 87186 ×2; 93005; 96360; 96361; 96372; 97163; 99285; G0378 ×2; J0696; J1630 ×2; J1650; J3486; J7030; 81003; 81015

== ENCOUNTER 2018-05-12 01:16 | Emergency (ER) | payer OTHER ==
[2018-05-12] MEDS ORDERED: NA CHLORIDE 0.9% 1,000 ML ONE (01:51)
[2018-05-12 02:06] LABS: Absolute Lymphocytes (CBC) 0.9 K/uL (0.7-4.9); Absolute Monocytes 0.5 K/uL (0.1-1.3); Basophils % 1.8 % (0-1.3); Eosinophils % 2.4 % (0-4.4); Hematocrit 32.4 % (36.0-45.0); Lymphocytes % 16.1 % (15.3-44.8); MCH 27.6 pg (27.0-35.0); MPV 8.7 fL (7.6-11.3); Monocytes % 9.1 % (3.3-12.3); RBC Red Blood Cell Count 3.86 M/uL (3.86-4.86)
[2018-05-12 02:27] LABS: ALT/SGPT 20 U/L (12-78); AST/SGOT 21 U/L (15-37); Albumin 3.2 g/dL (3.4-5.0); Alkaline Phosphatase 93 U/L (45-117); BUN Blood Urea Nitrogen 14 mg/dL (7-18); Bicarbonate 24 mmol/L (21-32); Bilirubin Total 0.3 mg/dL (0.2-1.0); Glucose Level 121 mg/dL (74-106); Potassium 3.5 mmol/L (3.5-5.1); Protein, Total 7.5 g/dL (6.4-8.2); Sodium Level 140 mmol/L (136-145)
--- NOTE | 2018-05-12 02:48 | EDPHYS ---
Physician Documentation [facility] Name: Heidy Robison Age: 63 yrs Sex: Female : 1955 Arrival Date: 05/12/2018 Time: 01:18 Bed 6 Private MD: ED Physician Elroy Baldwin HPI: 05/12 01:18 This 63 yrs old Female presents to ER via Unassigned with complaints of ps1 unintentional overdose of trazodone. 01:18 Patient was starting trazodone and got her medications confused with her regularly ps1 prescribed medication. She took 5x50 mg tablets. She is presenting with anxiety and palpitations. No SI/HI. . Historical: - Allergies: 01:21 Abilify; bb 01:21 apremilast; bb 01:21 FLU VACCINE; bb 01:21 Seroquel; bb 01:21 Sulfa (Sulfonamide Antibiotics); bb - Home Meds: 01:21 Trazodone Oral [Active]; BuSpar Oral [Active]; amlodipine oral [Active]; Carafate Oral bb [Active]; - PMHx: 01:21 COPD; CVA; Lupus; MAC; RA; bb - Immunization history:: Adult Immunizations up to date. - Social history:: Smoking status: Patient/guardian denies using tobacco, Patient/guardian denies using alcohol. - Ebola Screening: : No symptoms or risks identified at this time. ROS: 01:18 Constitutional: Negative for fever, chills, and weight loss, Eyes: Negative for injury, ps1 pain, redness, and discharge, Respiratory: Negative for shortness of breath, cough, wheezing, and pleuritic chest pain, Abdomen/GI: Negative for abdominal pain, nausea, vomiting, diarrhea, and constipation, MS/Extremity: Negative for injury and deformity, Skin: Negative for injury, rash, and discoloration. 01:18 Cardiovascular: Positive for palpitations. 01:18 Psych: Positive for anxiety. Exam: 01:18 Constitutional: This is a well developed, well nourished patient who is awake, alert, ps1 and in no acute distress. Head/Face: Normocephalic, atraumatic. Eyes: Pupils equal round and reactive to light, extra-ocular motions intact. Lids and lashes normal. Conjunctiva and sclera are non-icteric and not injected. Chest/axilla: Normal chest wall appearance and motion. Nontender with no deformity. No lesions are appreciated. Respiratory: Lungs have equal breath sounds bilaterally, clear to auscultation and percussion. No rales, rhonchi or wheezes noted. No increased work of breathing, no retractions or nasal flaring. Abdomen/GI: Soft, non-tender, with normal bowel sounds. No distension or tympany. No guarding or rebound. No evidence of tenderness throughout. 01:18 Skin: Warm, dry with normal turgor. Normal color with no rashes, no lesions, and no evidence of cellulitis. MS/ Extremity: Pulses equal, no cyanosis. Neurovascular intact. Full, normal range of motion. Neuro: Awake and alert, GCS 15, oriented to person, place, time, and situation. Cranial nerves II-XII grossly intact. Sensory grossly intact. 01:18 Cardiovascular: Rate: tachycardic, Rhythm: regular, Pulses: no pulse deficits are appreciated. 01:18 Psych: Behavior/mood is anxious. Vital Signs: 01:21 BP 143 / 89; Pulse 114; Resp 18 S; Temp 98.2(O); Pulse Ox 96% on R/A; Weight 56.7 kg bb (R); Height 5 ft. 5 in. (165.10 cm) (R); Pain 0/10; 01:56 BP 143 / 78; Pulse 98; Resp 18; Pulse Ox 98% on R/A; tl2 02:46 BP 163 / 73; Pulse 97; Resp 18; Pulse Ox 95% on R/A; tl2 01:21 Body Mass Index 20.80 (56.70 kg, 165.10 cm) bb MDM: 01:29 Patient medically screened. ps1 02:46 Data reviewed: vital signs, nurses notes, lab test result(s), EKG, and as a result, I ps1 will discharge patient, patient took an otherwise prescription strength dose of Trazodone. Symptoms resolved, vitals WNL. Stable for discharge. . Counseling: I had a detailed discussion with the patient and/or guardian regarding: the historical points, exam findings, and any diagnostic results supporting the discharge/admit diagnosis, the presence of at least one elevated blood pressure reading (>120/80) during this emergency department visit, lab results, to return to the emergency department if symptoms worsen or persist or if there are any questions or concerns that arise at home. 05/12 01:23 Order name: CBC with Diff; Complete Time: 02:35 ps1 05/12 01:23 Order name: CMP; Complete Time: 02:35 ps1 05/12 01:24 Order name: Salicylate; Complete Time: 02:44 ps1 05/12 01:24 Order name: Acetaminophen; Complete Time: 02:35 ps1 05/12 01:23 Order name: EKG - Nurse/Tech; Complete Time: 01:31 ps1 05/12 01:24 Order name: EKG; Complete Time: 01:24 ps1 05/12 01:24 Order name: IV Saline Lock; Complete Time: 01:47 ps1 05/12 01:24 Order name: Labs collected and sent; Complete Time: 01:56 ps1 EC:32 Rate is 105 beats/min. Rhythm is regular. QRS [place] is Normal. LA interval is normal. ps1 QRS interval is normal. QT interval is normal at 454 msec. No Q waves. T waves are Normal. T waves are Flattened in lead V2. No ST changes noted. Clinical impression: NSR w/ Non-specific ST/T Changes. Interpreted by me. Administered Medications: 01:47 Drug: NS 0.9% 1000 ml Route: IV; Rate: 1 bolus; Site: Other; tl2 03:15 Follow up: IV Status: Completed infusion tl1 Disposition: 05/12/18 02:48 Discharged to Home. Impression: Accidental or unintentional overdose. - Condition is Stable. - Discharge Instructions: Accidental Overdose. - Medication Reconciliation Form, Thank You Letter, Antibiotic Education, Prescription Opioid Use form. - Follow up: Private Physician; When: As needed; Reason: Recheck today's complaints, Continuance of care, Re-evaluation by your physician. Follow up: Emergency Department; When: As needed; Reason: Worsening of condition. - Problem is new. - Symptoms are resolved. Signatures: Dispatcher [employer] EDMS Janis Bradshaw RN RN Marimar Rojas, RN RN tl1 Kathy Valiente RN RN tl2 Elroy Baldwin MD MD ps1 Corrections: (The following items were deleted from the chart) 01:25 01:24 BASIC METABOLIC PANEL+[id number].LAB.BRZ ordered. EDMS EDMS 03:16 01:24 Urine Dipstick-Ancillary ordered. ps1 tl1 03:17 02:48 05/12/2018 02:48 Discharged to Home. Impression: Accidental or unintentional tl1 overdose. Condition is Stable. Forms are Medication Reconciliation Form, Thank You Letter, Antibiotic Education, Prescription Opioid Use. Follow up: Private Physician; When: As needed; Reason: Recheck today's complaints, Continuance of care, Re-evaluation by your physician. Follow up: Emergency Department; When: As needed; Reason: Worsening of condition. Problem is new. Symptoms are resolved. ps1
--- NOTE | 2018-05-12 02:48 | ER ---
Nurse's Notes [facility] Emergency Department Name: Heidy Robison Age: 63 yrs Sex: Female : 1955 Arrival Date: 05/12/2018 Time: :18 Bed 6 Private MD: Diagnosis: Accidental or unintentional overdose Presentation: 05/12 01:18 Presenting complaint: EMS states: they were toned out for report of pt taking an bb accidental overdose of Trazodone which was 5 of 50 mg tablets pt c/o elevated heart rate. Transition of care: patient was not received from another setting of care. Onset of symptoms was May 12, 2018. Risk Assessment: Do you want to hurt yourself or someone else? Patient reports no desire to harm self or others. Initial Sepsis Screen: Does the patient meet any 2 criteria? No. Patient's initial sepsis screen is negative. Does the patient have a suspected source of infection? No. Patient's initial sepsis screen is negative. Care prior to arrival: Glucose check: 219. 01:18 Method Of Arrival: EMS: [facility] bb 01:18 Acuity: ADELE 3 bb Historical: - Allergies: 01:21 Abilify; bb 01:21 apremilast; bb 01:21 FLU VACCINE; bb 01:21 Seroquel; bb 01:21 Sulfa (Sulfonamide Antibiotics); bb - Home Meds: 01:21 Trazodone Oral [Active]; BuSpar Oral [Active]; amlodipine oral [Active]; Carafate Oral bb [Active]; - PMHx: 01:21 COPD; CVA; Lupus; MAC; RA; bb - Immunization history:: Adult Immunizations up to date. - Social history:: Smoking status: Patient/guardian denies using tobacco, Patient/guardian denies using alcohol. - Ebola Screening: : No symptoms or risks identified at this time. Screenin:18 Abuse screen: Denies threats or abuse. Nutritional screening: No deficits noted. tl2 Tuberculosis screening: No symptoms or risk factors identified. Fall Risk None identified. Assessment: :18 General: Appears in no apparent distress. uncomfortable, Behavior is cooperative, tl2 appropriate for age, anxious. Pain: Complains of pain in headache. Neuro: Level of Consciousness is awake, alert, obeys commands, Oriented to person, place, time, situation. Cardiovascular: Denies chest pain. Respiratory: Airway is patent Respiratory effort is even, unlabored, Respiratory pattern is regular, symmetrical. GI: No signs and/or symptoms were reported involving the gastrointestinal system. : No signs and/or symptoms were reported regarding the genitourinary system. Derm: Skin is pink, warm \T\ dry. 02:47 Reassessment: Patient appears in no apparent distress at this time. No changes from tl2 previously documented assessment. Patient and/or family updated on plan of care and expected duration. Pain level reassessed. Patient is alert, oriented x 3, equal unlabored respirations, skin warm/dry/pink. Pt up to restroom. Vital Signs: 01:21 BP 143 / 89; Pulse 114; Resp 18 S; Temp 98.2(O); Pulse Ox 96% on R/A; Weight 56.7 kg bb (R); Height 5 ft. 5 in. (165.10 cm) (R); Pain 0/10; 01:56 BP 143 / 78; Pulse 98; Resp 18; Pulse Ox 98% on R/A; tl2 02:46 BP 163 / 73; Pulse 97; Resp 18; Pulse Ox 95% on R/A; tl2 01:21 Body Mass Index 20.80 (56.70 kg, 165.10 cm) bb ED Course: 01:18 Patient arrived in ED. am2 01:18 Elroy Baldwin MD is Attending Physician. ps1 01:18 Patient has correct armband on for positive identification. Bed in low position. Call tl2 light in reach. Side rails up X2. 01:19 Triage completed. bb 01:21 Arm band placed on Patient placed in an exam room, on a stretcher, on pulse oximetry. bb 01:37 EKG done, by ED staff, reviewed by Elroy Baldwin MD. ds4 01:50 Inserted saline lock: 20 gauge in left ,using aseptic technique. foot placed by 2 tech. Rao 03:14 No provider procedures requiring assistance completed. IV discontinued, intact, tl1 bleeding controlled, No redness/swelling at site. Pressure dressing applied. Administered Medications: 01:47 Drug: NS 0.9% 1000 ml Route: IV; Rate: 1 bolus; Site: Other; tl2 03:15 Follow up: IV Status: Completed infusion tl1 Outcome: 02:48 Discharge ordered by . ps1 03:14 Discharged to home via Taxi tl1 03:14 Condition: good 03:14 Discharge instructions given to patient, Instructed on discharge instructions, follow up and referral plans. Demonstrated understanding of instructions, follow-up care. 03:17 Patient left the ED. tl1 Signatures: Janis Bradshaw RN RN bb Rao Reveles ds4 Marimar Zepeda RN RN tl1 Kathy Valiente RN RN tl2 Simona Jordan am2 Elroy Baldwin MD MD ps1 Corrections: (The following items were deleted from the chart) 01:50 01:18 Inserted saline lock: 20 gauge in left ,using aseptic technique. foot placed by tl2 Rao, ochoa tl2
[2018-05-12 03:30] VITALS: TEMP 98.2
[2018-05-12 03:31] VITALS: BP 163/73; O2SAT 95
--- NOTE | 2018-05-12 08:57 | EKG ---
Test Date: 2018-05-12 Test Time: 01:32:44 Ground Systems Engineer: JOSE J MEASUREMENT RESULTS: Intervals: Rate: 105 DC: 126 QRSD: 72 QT: 344 QTc: 454 [place]: P: 32 DC: 126 QRS: -2 T: -1 INTERPRETIVE STATEMENTS: Sinus tachycardia Nonspecific T wave abnormality Abnormal ECG Compared to ECG 11/15/2017 14:44:13 T-wave abnormality now present Ventricular premature complex(es) no longer present Electronically Signed On 05-12-18 08:56:52 CDT by Roberto Carlos Lal
== END 2018-05-12 03:17 | disposition home or self-care (01) ==
LOC: ER 01:16
DX: T43.211A Poisoning by selective serotonin and norepinephrine reuptake inhibitors, accidental (unintentional), initial encounter (principal); J44.9 Chronic obstructive pulmonary disease, unspecified; Z88.2 Allergy status to sulfonamides; Z88.7 Allergy status to serum and vaccine; Z88.8 Allergy status to other drugs, medicaments and biological substances
CPT/HCPCS: 36415; 80053; 80329 ×2; 85025; 93005; 96360; 99284; J7030

== ENCOUNTER 2019-03-20 18:00 | Inpatient (IN) | payer OTHER ==
--- OUTSIDE RECORDS SUMMARY | 2019-03-20 18:03 | XMS REPORT | Summary of Care ---
:1955 Author Organization [facility] Address [address] [place] [id number] Care Team Providers Name Role Phone Wally Angulo Primary Care Provider Wally Angulo Insurance [employer] Bernabe Poe MD Unavailable Sophia Fisher [facility] [place] [employer] Operator Unavailable Reason for Visit Reason Comments Rx Concern/Question Encounter Details Date Type Department Care Team Description 02/02/2019 Telephone [facility] Anesthesia Doulatram, Rx Concern/Question [facility] MD Ciro [address] [id number] [place], [place] [id number] Allergies Active Allergy Reactions Severity Noted Date Comments Aripiprazole Unknown - See comments 04/10/2014 Symptoms of tardive dyskinesia Patient states that she is currently taking medication. Quetiapine Fumarate Unknown - See comments 03/05/2014 tremors Sulfasalazine Hives 01/21/2011 documented as of this encounter (statuses as of 02/02/2019) Medications Medication Sig Dispensed Refills Start End Status Date Date MULTIPLE VITAMINS DAILY 2 pills a day 0 Active ORAL TAB fluticasone (FLONASE) Use 1 [place] in each 1 Bottle 2 Active 50 mcg/actuation nasal nostril daily. 4 spray SERTraline (ZOLOFT) 100 Take 2 tablets by 60 tablet 1 Active mg tablet mouth at bedtime. 6 tazarotene (TAZORAC) Apply to area(s) at 60 g 1 Active 0.05 % cream bedtime. For thick 6 plaques not improving with other medications. triamcinolone acetonide Apply to area(s) 2 454 g 2 Active 0.1 % cream (two) times daily as 7 needed (Psoriasis on trunk and extremities). mupirocin (BACTROBAN) 2 Apply to area(s) 22 g 1 Active % ointmentIndications: daily. 7 Bilateral great toes ulcers Mucus Clearing Device Use as directed 1 Device 0 Active (FLUTTER) Rebecca 7 levETIRAcetam (KEPPRA) Take 500 mg by mouth 0 Active 500 mg tablet daily. melatonin 10 mg Take by mouth at 0 Active TabIndications: Take 2 bedtime. tabs Indications: Take 2 tabs magnesium oxide 400 mg TK 1 T PO D 0 Active tablet 8 metoprolol tartrate 25 TK 1 T PO BID AT 6 180 tablet 3 Active mg tablet AM AND AT 6 PM 8 DULoxetine 30 mg Take 30 mg by mouth 0 Active capsule daily. Diclofenac Epolamine Apply to skin once 30 Patch 3 Active (FLECTOR) 1.3 % patch daily as needed for 8 Pain (scale 4-6). triamcinolone acetonide Apply to area(s) 2 454 g 0 Active 0.1 % ointment (two) times daily. 8 As needed. Avoid face, groin, axillae calcipotriene-betametha Apply to area(s) 60 g 1 Active sone (TACLONEX) daily. For scalp 8 0.005-0.064 % external suspension albuterol 90 Inhale 2 Puffs every 8.5 g 11 Active mcg/actuation inhaler 6 (six) hours as 8 needed for Wheezing or Shortness of Breath. albuterol 2.5 mg /3 mL Inhale 3 mL every 6 75 Vial 11 Active (0.083 %) nebulizer (six) hours as 8 solution needed for Wheezing or Shortness of Breath. sodium chloride Inhale 1 Vial 2 60 Vial 11 Active (HYPER-TYLER) 3.5 % Nebu (two) times daily. 8 pantoprazole 40 mg EC Take 1 tablet by 180 tablet 1 Active tablet mouth 2 (two) times 8 daily. ergocalciferol, vitamin Take 1 capsule by 1 capsule 3 Active d2, 50,000 unit mouth every 4 (four) 9 capsuleIndications: weeks. Other osteoporosis without current pathological fracture, Vitamin D deficiency, Essential hypertension, benign, Major depressive disorder, recurrent episode, moderate, Psoriatic arthritis, Psychophysiological insomnia SUCRALFATE 1 gram TAKE 1 TABLET BY 120 tablet 2 Active tablet MOUTH BEFORE MEALS 9 AND AT BEDTIME baclofen 10 mg tablet Take 1 tablet by 90 tablet 2 Active mouth 3 (three) 9 times daily. OTEZLA STARTER 10 mg 0 Active (4)-20 mg (4)-30 mg 9 (47) DsPk cyanocobalamin (VITAMIN 1 mL by 30 mL 0 Active B-12) 1,000 mcg/mL Intramuscular route 9 injectionIndications: weekly. Osteopenia of both hips pregabalin (LYRICA) 150 Take 1 capsule by 90 capsule 3 Active mg capsule mouth 3 (three) 9 times daily. TRAZODONE 100 mg TAKE 1 TABLET BY 30 tablet 0 Active tabletIndications: MOUTH AT BEDTIME 9 Depression, unspecified depression type Diclofenac Sodium Apply to area(s) 2 100 g 3 Active (VOLTAREN) 1 % (two) times daily. 9 gelIndications: Rheumatoid arthritis involving both hands, unspecified rheumatoid factor presence Fluticasone-Salmeterol Inhale 1 Puff every 60 Each 11 Active (ADVAIR DISKUS) 500-50 12 (twelve) hours. 9 mcg/dose inhalation diskIndications: Pulmonary emphysema, unspecified emphysema type fluticasone-salmeterol Inhale 2 Puffs 2 12 g 11 Active (ADVAIR HFA) 230-21 (two) times daily. 9 mcg/actuation inhalerIndications: Dyspnea, unspecified type celecoxib 200 mg Take 1 capsule by 30 capsule 3 Active capsuleIndications: mouth daily. 9 Psoriatic arthritis, Psoriasis, Chronic pain syndrome, Seizure disorder OTEZLA 30 mg tablet TAKE 1 TABLET BY 180 tablet 0 Active MOUTH TWICE DAILY 9 metoclopramide HCl 5 mg Take 1 tablet by 60 tablet 0 Active tabletIndications: mouth 2 (two) times 9 Abdominal pain, daily as needed for unspecified abdominal Nausea and Vomiting location (N/V) or Gastroesophageal reflux. busPIRone 15 mg TAKE 1 TABLET BY 90 tablet 0 Active tabletIndications: MOUTH 3 TIMES DAILY 9 Depression, unspecified depression type ESZOPICLONE 3 mg TAKE 1 TABLET BY 90 tablet 0 Active tabletIndications: MOUTH AT BEDTIME 9 Persistent insomnia NEEDED FOR INSOMNIA LISINOPRIL 10 mg tablet TAKE 2 TABLETS BY 180 tablet 0 Active MOUTH DAILY 9 LEVOTHYROXINE 100 mcg TAKE 1 TABLET BY 90 tablet 1 Active tabletIndications: MOUTH ONCE DAILY 9 Hypothyroidism, unspecified type FENTanyl 100 mcg/hr Apply 1 Patch to 10 Patch 0 Active patchIndications: skin every 72 9 Psoriatic arthropathy (seventy-two) hours. FENTanyl 25 mcg/hr Apply 1 Patch to 10 Patch 0 Active patchIndications: skin every 72 9 Chronic pain syndrome (seventy-two) hours. HYDROcodone-acetaminoph Take 1 pill by mouth 150 tablet 0 Active en (NORCO) 10-325 mg every 4 hours as 9 tabletIndications: needed for pain, Max Psoriatic arthropathy, 6 daily Chronic pain syndrome SUMATRIPTAN 25 mg TAKE 1 TABLET BY 9 tablet 0 Active tabletIndications: MOUTH ONCE DAILY 9 Nonintractable NEEDED FOR MIGRAINE. headache, unspecified REPEAT IN 2HOURS IF chronicity pattern, NO RELIEF. MAX 100MG unspecified headache IN A DAY NO MORE type THAN 400MG PER MONTH AMLODIPINE 10 mg tablet TAKE 1 TABLET BY 90 tablet 1 Active MOUTH DAILY 9 LORAZEPAM 0.5 mg TAKE 1 TABLET BY 60 tablet 0 Active tabletIndications: MOUTH TWICE DAILY 9 Anxiety NEEDED FOR ANXIETY documented as of this encounter (statuses as of 02/02/2019) Active Problems Patient Care Coordination Note Hypertension (High Blood Pressure) Plan of Care My Hypertension Goals are the following: ? Strive for a normal blood pressure of less than 150/90 ? Cholesterol- LDL ( Bad cholesterol )- less than 130 (if I have diabetes and heart disease goal is less than 70) ? Total Cholesterol- less than 200 ? Lose weight if overweight or obese and follow the Weight Loss Care Plan ? Stop smoking and avoid second hand smoke My Hypertension Care Plan includes the following: ? Check and record blood pressure at least once a week and write results on blood pressure log ? Exercise at least 30 minutes a day 5 days a week. This can be in three 10 minute intervals ? Maintain a healthy weight ? Follow a DASH diet (Dietary Approaches to Stop Hypertension) o Eat a diet rich in fruits, vegetables, and low fat dairy products and low in saturated and total fat o Reduce dietary sodium to below 1500mg per day o Limit alcohol to two drinks per day for most men and one drink per day for most women and stack attendant weight men ? If I am a smoker, stop smoking ? Manage stress by identifying three ways to reduce stress ? [employer] ([email or web address]/[employer] LIST) is an online tool that will allow me to review lab results and portions of my health record, and to communicate with healthcare providers as needed. If I do not have a [employer] account, I will discuss this with my healthcare team Problem Noted Date Anemia 08/30/2018 Psychophysiological insomnia 07/26/2018 Immunization counseling 04/28/2018 H/O foreign body aspiration 09/01/2017 Overview: [place] Pneumonia of left lower lobe due to infectious organism 08/29/2017 Esophageal foreign body 08/09/2017 Dyspnea 02/09/2017 Pulmonary Mycobacterium avium complex (MAC) infection 01/17/2017 MARY CARMEN (acute kidney injury) 11/15/2016 Pulmonary emphysema, unspecified emphysema type 05/26/2016 Lumbosacral spondylosis with radiculopathy 02/16/2016 Osteoporosis 12/08/2015 Overview: at wrist. osteopenia at hip and back. 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 Actinic keratoses 12/18/2013 Status post gastric bypass for obesity 01/26/2013 Anxiety disorder 06/05/2012 Hereditary nonpolyposis colorectal cancer syndrome 04/26/2012 S/P total abdominal hysterectomy and bilateral salpingo-oophorectomy 2011 Major depressive disorder, recurrent episode, moderate 12/23/2011 Pelvic floor dysfunction 04/28/2011 Atrophic vaginitis 02/08/2011 Urinary incontinence 02/08/2011 Lupus 01/21/2011 Vitamin D deficiency 04/29/2010 Psoriatic arthritis 02/24/2010 Essential hypertension, benign 11/26/2008 Sicca syndrome 10/29/2008 Mixed incontinence urge and stress (male)(female) 10/09/2002 Ulcerative (chronic) ileocolitis Overview: Pt has history of blood in the stools and was evaluated by a GI library sales consultant in [place] about 10 years ago who told her she had then inflammatory bowel disease. However, she has been basically asymptomatic since except for functional bowel symptoms Chronic pain syndrome Overview: As part of the fibromyalgia Rheumatoid arthritis Overview: ICD10 Diagnosis Term Global Program Director Utility documented as of this encounter (statuses as of 02/02/2019) Resolved Problems Problem Noted Date Resolved Date Troponin I above reference range 11/15/2016 12/01/2016 Hypoxia 11/15/2016 04/18/2017 Acidosis 11/14/2016 04/18/2017 Hypotension 11/14/2016 12/01/2016 COPD (chronic obstructive pulmonary disease) 12/08/2015 05/26/2016 Long-term use of immunosuppressant medication 03/11/2015 12/01/2016 Chronic pain 03/11/2015 07/01/2016 Atypical mycobacterial infection 03/11/2015 09/01/2017 History of pneumonia 03/11/2015 12/01/2016 Osteoporosis 10/02/2014 12/08/2015 COPD exacerbation 07/18/2014 04/18/2017 Breast mass 05/31/2014 12/08/2015 Foot lesion 05/23/2014 05/31/2014 Screening for endocrine, nutritional, metabolic and immunity 05/17/201412/07 disorder H/O atypical mycobacterial infection 02/07/2014 09/01/2017 Mycobacterial disease 10/24/2013 02/07/2014 SOB (shortness of breath) 08/23/2013 04/18/2017 Recurrent UTI 04/04/2013 05/26/2016 Encounter for long-term (current) use of steroids 01/09/2013 12/08/2015 Urinary tract infection, site not specified 12/12/2012 01/26/2013 Overview: Uti Persistent disorder of initiating or maintaining sleep 10/30/2012 12/08/2015 Therapeutic drug monitoring 06/06/2012 12/08/2015 Therapeutic drug monitoring 08/02/2011 12/29/2011 Hip pain, left 08/02/2011 12/29/2011 Rheumatoid arthritis 03/18/2011 04/04/2013 Overview: ICD10 Diagnosis Term Global Program Director Utility Encounter for long-term (current) use of steroids 09/04/2010 12/29/2011 Personal history of other diseases of digestive system 09/04/2010 12/29/2011 Urinary tract infection, site not specified 07/07/2010 12/29/2011 Osteopenia 06/08/2010 12/08/2015 Osteoporosis screening 04/24/2010 12/29/2011 Post-operative state 03/17/2010 12/29/2011 Gangrene 02/17/2010 12/29/2011 Pain in joint, multiple sites 02/09/2010 12/29/2011 Foot infection 11/17/2009 12/29/2011 Feeding difficulties and mismanagement 12/03/2008 12/29/2011 Intestinal bypass or anastomosis status 10/29/2008 01/26/2013 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 Has never received Enbrel or Humira. Rheumatism and fibrositis 10/29/2008 Overview: ICD10 Diagnosis Term Global Program Director Utility Irritable bowel syndrome 12/29/2011 Overview: Has periods of constipation alternating with loose stools off and on. Hypothyroidism 10/05/2015 Overview: ICD10 Diagnosis Term Global Program Director Utility Chronic pain syndrome 12/29/2011 Overview: As part of the fibromyalgia Psoriatic arthropathy 01/05/2015 documented as of this encounter (statuses as of 02/02/2019) Immunizations Name Administration Dates Next Due H1n1 Vaccine 07/03/2009 Influenza High Dose 04/11/2018 Influenza Virus Vaccine 05/16/2012, 03/18/2011, 06/08/2010, 05/10/2007 Influenza Virus Vaccine (3+ yrs) 04/04/2013 Influenza Virus Vaccine Quad ID [id number] 04/11/2018 (Deferred: Vaccine YRS Unavailable) Influenza Virus Vaccine Quad IM 3+ 04/15/2017, 04/24/2014 YRS Pneumococcal 13 Conjugate, PCV13 04/14/2015 (Prevnar 13) Pneumococcal Polysaccharide, PPSV23 08/01/2014, 05/10/2008 (PNEUMOVAX) Tdap 07/24/2012 Zoster(Zostavax)(Shingles) 06/10/2010 documented as of this encounter Social History Tobacco Use Types Packs/Day Years Used Date Former Smoker Smokeless Tobacco: Never Used Comments: Pt smoked only for 5 years, she says, and quit a long time ago. Alcohol Use Drinks/Week oz/Week Comments No Sex Assigned at Date Recorded Not on file Job Start Date Occupation Industry Not on file Not on file Not on file Travel History Travel Start Travel End No recent travel history available. documented as of this encounter Last Filed Vital Signs Not on filedocumented in this encounter Plan of Treatment Date Type Specialty Care Team Description 02/12/2019 Office Visit Pain Medicine Ciro Villanueva MD [id number] [place] [address] [phone] 02/19/2019 Nurse Visit Pain Medicine Rich, Erx 03/19/2019 Nurse Visit Pain Medicine Rich, Erx 03/30/2019 Office Visit Pulmonary Disease Simi Veliz DO [address] [place] [address] [phone] 04/05/2019 Office Visit Internal Medicine Wally Angulo [id number] [place] [address] [phone] 04/16/2019 Nurse Visit Pain Medicine Fede Villanueva 04/17/2019 Office Visit Infectious Disease Sebastian Alberto [id number] [place] [address] [phone] Health Maintenance Due Date Last Done Comments Zoster Recombinant Vaccine 08/05/2010 06/10/2010 (SHINGRIX) (2 of 3) INFLUENZA VACCINE 03/11/2019 04/11/2018, 04/15/2017, 03/25/2015 (Previously completed), Additional history exists MAMMOGRAM 05/30/2019 05/30/2018, 04/15/2017, 08/11/2015, Additional history exists PAP SMEAR 07/13/2019 07/13/2016, 10/16/2013 (Postponed) LUNG CANCER SCREEN: Recommended 01/23/2020 01/22/2019, 04/15/2017, for age 55-80 with 30 + pack year 05/27/2016, Additional history history exists DTaP,Tdap,and Td Vaccines (2 - Td) 07/24/2022 07/24/2012 COLONOSCOPY 12/16/2022 12/16/2012 (Previously completed) HEPATITIS C (HCV) SCREEN Completed 03/25/2010 PNEUMOCOCCAL 0-64 YEARS COMBINED Completed 04/14/2015, 08/01/2014, SERIES 05/10/2008 documented as of this encounter Implants Implanted Type Area Chiropractic Teacher Device Identifier Shelf Expiration Model / Serial Date / Lot Hip HIP documented as of this encounter Results Not on filedocumented in this encounter Insurance Payer Benefit Plan / Subscriber ID Effective Dates Phone Address Type Group MEDICARE MEDICARE PART xxxxxxxxxxx 1992-Ari [phone] Medicare [id number] [place] [id number] documented as of this encounter Advance Directives Type Date Recorded Patient Computer Applications Instructor Explanation Advance Directives and Living 05/14/2014 1:59 PM Will Power of Television Camera Operator 03/07/2015 2:05 PM
--- OUTSIDE RECORDS SUMMARY | 2019-03-20 18:03 | XMS REPORT ---
:1955 [facility] Neptali Ludwig [address] [place] [address] Care Team Providers Name Role Phone Unavailable Unavailable Unavailable Payers Payer Name Policy Type Policy Number Effective Date Expiration Date Problems This patient has no known problems. Allergies, Adverse Reactions, Alerts Allergy Name Allergy Status Severity Reaction(s) Onset Inactive Treating Comments Type Date Date Clinician Sulfa DA Active MO (Sulfonamide 02-05 Antibiotics) 00:00: 00 Influenza DA Active SV Virus Vaccines 02-05 00:00: 00 baclofen DA Active MO 02-05 00:00: 00 levofloxacin DA Active MO 02-05 00:00: 00 Sulfa DA Active U 0 (Sulfonamide -16 Antibiotics) 00:00: 00 No Known Drug DA Active U 2005-0 Intolerances 7 00:00: 00 No Known DA Active U 2005-0 Contrast 7-16 Allergies 00:00: 00 No Known Food DA Active U 2005-0 Allergies 01-23 00:00: 00 No Known Other DA Active U 2005-0 Allergies 01-23 00:00: 00 SULFA DRUGS DA Active U 2005-0 01-23 00:00: 00 Medications This patient has no known medications. Results Test Description Test Time Test Comments Text Results Atomic Results Result Comments SURGICAL 2019-02-12 RUN SPECIMENS 07:36:00 DATE: 02/12/19 [facility] * LIVE* PAGE 1 RUN TIME: 735 Specimen Inquiry RUN USER: INTERFACE LARA ENT: QUINN WILKERSON LOC: SRINATH U #: [id number] AGE/SX: 63/F ROOM: RE02/08/19REG DR: Edward Felder : 53 BED: DIS: STATUS: [facility] TLOC: SPEC #: [id number] RECD: 02/08/19 STATUS: MIL[place]RO REQ #: [id number] QUANG: 02/08/[address]: Edward Felder MD ENTERED: 02/11/19 SP TYPE: SURG SPEC OTHR DR: Wally Angulo MD ORDERED: GM LEVEL 4 CODES: [id number] - STOMACH, NOS COPIES TO: Wally Angulo MD [address] [facility] [address] [id number] Edward Felder MD [address] [place] [address] [address] [place] [address] PROCEDURES: LEVEL 4 (Incomplete) TISSUES: 1. STOMACH, NOS - Stomach, fundus, x. FINAL DIAGNOSIS Stomach, fundus, bx.: Mild chronic gastritis, nonactive; no Helicobacter pylori organisms identified. GROSS AND MICROSCOPIC GROSS EXAMINATION: Received is/are the specimen/s designated with the appropriate dimensions and block designation: 1. Stomach, fundus, bx.: 4 segments of pink-quintero tissue, measuring up to 0.5 cm. in greatest dimension each. MICROSCOPIC EXAMINATION: The gastric mucosa reveals mild foveolar hyperplasia with increased fibrosis and chronic inflammation in the lamina propria. No significant acute inflammation is identified. No Helicobacter pylori organisms are identified with the immunostain, and no intestinal metaplasia is identified with the alcian blue/PAS stain. (When special stains have been reviewed, the appropriate positive/negative controls have been reviewed and are appropriately positive/negative). CONTINUED ON NEXT PAGE RUN DATE: 02/12/19 [facility] *LIVE* PAGE 2 RUN TIME: 735 Specimen Inquiry RUN USER: INTERFACE SPEC #: [id number] PATIENT: QUINN WILKERSON # [id number] (Continued) ------- POST-OP DIAGNOSIS GERD, normal colon PRE-OP DIAGNOSIS Family history of colon cancer, GERD Signed SIGNATURE ON FILE Cole Connell MD 02/12/19 0736 END OF REPORT BASIC METABOLIC PANEL 2019-02-08 07:29:00 Test Item Value Reference Range Comments SODIUM (test code=NA) 134 mEq/L 134-147 POTASSIUM (test code=K) 3.2 mEq/L 3.4-5.0 CHLORIDE (test code=CL) 101 mEq/L 100-108 CARBON DIOXIDE (test code=CO2) 26 mEq/L 21-33 ANION GAP (test code=GAP) 10 0-20 GLUCOSE (test code=GLU) 84 mg/dL 70-110 BLOOD UREA NITROGEN (test code=BUN) 9 mg/dL 7-18 GLOMERULAR FILTRATION RATE (test 72.2 80-90 Units of measure=ml/min/1.73 code=GFR) m2 CREATININE (test code=CREAT) 0.8 mg/dL 0.6-1.3 CALCIUM (test code=CA) 8.5 mg/dL 8.0-10.5 - XR CHEST 1 [id number] 06:16:00 FAX: Yadiel Westfall JR, MD [place]: St: REG FAX: Wally Valles [phone] FAX: Edward Vargas [phone] Name: [facility] Brianne : 1955 Age/S: 63/F [address] [place] [address] Blvd Unit #: [id number] Loc: [place] [address] Phys: Yadiel Mendez JR, MD Acct: [id number] Dis Date: Status: [facility] PHONE #: [phone] Exam Date: 07/2018 06 FAX #: [phone] Reason: PREOP PROTOCOL EXAMS: CPT CODE: [id number] XR CHEST 1 V 84815 EXAM : CR, XR chest one view: 02/08/2019, 0603 hours HISTORY: PREOP PROTOCOL TECHNIQUE: 1 view of the chest. COMPARISON: None available. FINDINGS: Trachea is midline. Heart is normal in size. Pulmonary vascularity is unremarkable. Mild subsegmental atelectasis in the right mid and lower lung There is no pleural effusion or pneumothorax. No significant osseous abnormalities areseen. IMPRESSION: Mild subsegmental atelectasis in the right mid and lower lung . SL: [JSYED-H] at 0616 Reported and signed by: Reyes Lee M.D. CC: Yadiel Mendez JR, MD ; Wally Angulo MD; Edward Feldre MD Technologist: RT Jose(Caitie) Trnscrd Date/ Time/By: 02/08/2019 (0616) : By: [email or web address] Orig Print D/T: S:2018 (0619) PAGE 1 Signed ReportBASI METABOLIC [id number] 14:20:00 Test Item Value Reference Range Comments SODIUM (test code=NA) 141 mEq/L 134-147 POTASSIUM (test code=K) 4.2 mEq/L 3.4-5.0 CHLORIDE (test code=CL) 108 mEq/L 100-108 CARBON DIOXIDE (test code=CO2) 28 mEq/L 21-33 ANION GAP (test code=GAP) 9 0-20 GLUCOSE (test code=GLU) 93 mg/dL 70-110 BLOOD UREA NITROGEN (test 16 mg/dL 7-18 code=BUN) GLOMERULAR FILTRATION RATE 50.0 80-90 Units of measure=ml/min/1.73 (test code=GFR) m2 CREATININE (test code=CREAT) 1.1 mg/dL 0.6-1.3 CALCIUM (test code=CA) 8.9 mg/dL 8.0-10.5 CBC W/AUTO [id number] 14:18:00 Test Item Value Reference Range Comments WHITE BLOOD CELL (test code=WBC) 7.02 x10 3/uL 4.5-11.0 RED BLOOD CELL (test code=RBC) 4.34 x10 6/uL 3.54-5.02 HEMOGLOBIN (test code=HGB) 11.2 g/dL 11.0-15.0 HEMATOCRIT (test code=HCT) 36.1 % 33.0-45.0 MEAN CELL VOLUME (test code=MCV) 83.2 fL 81.0-99.0 MEAN CELL HGB (test code=MCH) 25.8 pg 27.0-33.0 MEAN CELL HGB CONCETRATION (test code=MCHC) 31.0 g/dL 33.0-37.0 RED CELL DISTRIBUTION WIDTH CV (test code=RDW) 17.2 % 11.5-14.5 RED CELL DISTRIBUTION WIDTH SD (test 52.6 fL 37.0-54.0 code=RDW-SD) PLATELET COUNT (test code=PLT) 202 x10 3/uL 150-400 MEAN PLATELET VOLUME (test code=MPV) 10.5 fL 7.0-9.0 NEUTROPHIL % (test code=NT%) 63.4 % 56.0-77.0 IMMATURE GRANULOCYTE % (test code=IG%) 0.1 % 0.0-2.0 LYMPHOCYTE % (test code=LY%) 24.4 % 14.0-32.0 MONOCYTE % (test code=MO%) 8.8 % 4.8-9.0 EOSINOPHIL % (test code=EO%) 2.7 % 0.3-3.7 BASOPHIL % (test code=BA%) 0.6 % 0.0-2.0 NUCLEATED RBC % (test code=NRBC%) 0.0 % 0-0 NEUTROPHIL # (test code=NT#) 4.45 x10 3/uL 2.0-7.6 IMMATURE GRANULOCYTE # (test code=IG#) 0.01 x10 3/uL 0.00-0.03 LYMPHOCYTE # (test code=LY#) 1.71 x10 3/uL 1.0-3.8 MONOCYTE # (test code=MO#) 0.62 x10 3/uL 0.1-0.8 EOSINOPHIL # (test code=EO#) 0.19 x10 3/uL 0.0-0.2 BASOPHIL # (test code=BA#) 0.04 x10 3/uL 0.0-0.2 NUCLEATED RBC # (test code=NRBC#) 0.00 x10 3/uL 0.0-0.1 MANUAL DIFF REQUIRED (test code=MDIFF) NO
--- OUTSIDE RECORDS SUMMARY | 2019-03-20 18:03 | XMS REPORT | Summary of Care ---
:1955 Author Organization [facility] Address [address] [place] [address] Care Team Providers Name Role Phone Wally Angulo Primary Care Provider Wally Angulo Insurance Hmo Bernabe Poe MD Unavailable Sophia Fisher [facility] Services Delivery Driver Unavailable Encounter Details Date Type Department Care Team Description 01/03/2019 Patient Secure [facility] Anesthesia Doulatram, [facility] MD Ciro [address] [address] [id number] [place], [place] [id number] Allergies Active Allergy Reactions Severity Noted Date Comments Aripiprazole Unknown - See comments 04/10/2014 Symptoms of tardive dyskinesia Patient states that she is currently taking medication. 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 If I am a smoker, stop smoking ? Manage stress by identifying three ways to reduce stress ? [employer] (www.[facility]/[employer]) is an online tool that will allow me to review lab results and portions of my health record, and to communicate with healthcare providers as needed. If I do not have a [employer] account, I will discuss this with my [...] woman exam with routine gynecological exam 03/11/2015 shelter current use of opiate analgesic 03/11/2015 Personal [...] stools and was evaluated by a GI automotive consultant in [place] about 10 years ago who told her she had then inflammatory bowel disease. However, she has been basically asymptomatic since except for functional bowel symptoms Chronic pain syndrome Overview: As part of the fibromyalgia Rheumatoid arthritis Overview: ICD10 Diagnosis Term Washhouse Hand Utility documented as of this encounter (statuses as of 02/03/2019) Resolved Problems Problem Noted Date Resolved Date [...] arthritis 03/18/2011 04/04/2013 Overview: ICD10 Diagnosis Term Washhouse Hand Utility Encounter for long-term (current) use of [...] S/p laparoscopic cholecystectomy 09/19/2007 ICD10 Diagnosis Term Washhouse Hand Utility Calculus of bile duct 09/19/2007 11/29/2007 Overview: S/p laparoscopic cholecystectomy 09/19/2007 ICD10 Diagnosis Term Washhouse Hand Utility Psoriatic arthropathy 12/29/2011 Overview: On Remicade infusions. Has never received Enbrel or Humira. Rheumatism and fibrositis 10/29/2008 Overview: ICD10 Diagnosis Term Washhouse Hand Utility Irritable bowel syndrome 12/29/2011 Overview: Has periods of constipation alternating with loose stools off and on. Hypothyroidism 10/05/2015 Overview: ICD10 Diagnosis Term Washhouse Hand Utility Chronic pain syndrome 12/29/2011 Overview: As part of the fibromyalgia Psoriatic arthropathy 01/05/2015 documented as of this encounter (statuses as of 02/03/2019) Immunizations Name Administration Dates Next Due H1n1 [...] Visit Pain Medicine Ciro Villanueva MD [id number] [place] [address] [phone] 02/19/2019 Nurse Visit Pain Medicine Rich, Erx 03/19/2019 Nurse Visit Pain Medicine Rich, Erx 03/30/2019 Office Visit Pulmonary Disease Simi Veliz, DO [address] [place] [phone] 04/05/2019 Office Visit Internal Medicine Wally Angulo [address] [place], [place] [address] 04/16/2019 Nurse Visit Pain Medicine Rich, Erx 04/17/2019 Office Visit Infectious Disease Sebastian Alberto [address] [id number] [place], [place] [address] Health Maintenance Due Date Last Done Comments [...] of this encounter Implants Implanted Type Area Social Staff Worker Device Identifier Shelf Expiration Model / Serial Date / Lot Hip HIP documented as of this encounter Results Not on filedocumented in this encounter Insurance Payer Benefit Plan / Subscriber ID Effective Dates Phone Address Type Group MEDICARE MEDICARE PART xxxxxxxxxxx 1992-[place] [phone] [address] Medicare A & B t 2 [id number] THI CORTÉS [id number] documented as of this encounter Advance Directives Type Date Recorded Patient Roadability Machine Operator Explanation Advance Directives and Living 05/14/2014 1:59 PM Will Power of Ethologist 03/07/2015 2:05 PM
--- OUTSIDE RECORDS SUMMARY | 2019-03-20 18:04 | XMS REPORT | Summary of Care ---
:1955 Author Organization [facility] Address [address] [place] [address] Care Team Providers Name Role Phone Wally Angulo Primary Care Provider Wally Angulo Insurance Hmo Bernabe Poe MD Unavailable Sophia Fisher [facility] Dishroom Attendant Unavailable Encounter Details Date Type Department Care Team Description 12/29/2018 Patient Secure Cog [facility] MyChart Messages Doctor Unassigned, [address] [place] [address] [place] [address] [place] [address] [place] [address] Allergies Active Allergy Reactions Severity Noted Date [...] Active ORAL TAB fluticasone (FLONASE) Use 1 [place] in each 1 Bottle 2 Active 50 [...] drink per day for most women and graduate school 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 If I am a smoker, stop smoking ? Manage stress by identifying three ways to reduce stress ? [employer] (www.[facility]/[employer]) is an online tool that will allow me to review lab results and portions of my health record, and to communicate with healthcare providers as needed. 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 However, she has been basically asymptomatic since except for functional bowel symptoms Chronic pain syndrome Overview: As part of the fibromyalgia Rheumatoid arthritis Overview: ICD10 Diagnosis Term Facility Rehab Director Utility documented as of this encounter [...] arthritis 03/18/2011 04/04/2013 Overview: ICD10 Diagnosis Term Facility Rehab Director Utility Encounter for long-term (current) use [...] S/p laparoscopic cholecystectomy 09/19/2007 ICD10 Diagnosis Term Facility Rehab Director Utility Calculus of bile duct 09/19/2007 11/29/2007 Overview: S/p laparoscopic cholecystectomy 09/19/2007 ICD10 Diagnosis Term Facility Rehab Director Utility Psoriatic arthropathy 12/29/2011 Overview: On Remicade infusions. Has never received Enbrel or Humira. Rheumatism and fibrositis 10/29/2008 Overview: ICD10 Diagnosis Term Facility Rehab Director Utility Irritable bowel syndrome 12/29/2011 Overview: Has periods of constipation alternating with loose stools off and on. Hypothyroidism 10/05/2015 Overview: ICD10 Diagnosis Term Facility Rehab Director Utility Chronic pain syndrome 12/29/2011 Overview: [...] Medicine Ciro Villanueva MD [id number] [place], [place] [phone] 02/19/2019 Nurse Visit Pain Medicine Rich, Erx 03/19/2019 Nurse Visit Pain Medicine Rich, Erx 03/30/2019 Office Visit Pulmonary Disease Simi Veliz DO [address] [place] [phone] 04/05/2019 Office Visit Internal Medicine Wally Angulo [address] [place], [place] [phone] 04/16/2019 Nurse Visit Pain Medicine Rich, Erx 04/17/2019 Office Visit Infectious Disease Sebastian Alberto [address] [id number] [place], [place] [phone] Health Maintenance Due Date Last Done Comments [...] of this encounter Implants Implanted Type Area Mixer Lever Operator Device Identifier Shelf Expiration Model / Serial Date / Lot Hip HIP documented as of this encounter Results Not on filedocumented in this encounter Insurance Payer Benefit Plan / Subscriber ID Effective Dates Phone Address Type Group MEDICARE MEDICARE PART xxxxxxxxxxx 1992-[place] [phone] [address] Medicare A & B t 2 [id number] THI CORTÉS [id number] documented as of this encounter Advance Directives Type Date Recorded Patient Investment Representative Explanation Advance Directives and Living 05/14/2014 1:59 PM Will Power of Drafter Civil Engineering 03/07/2015 2:05 PM
--- OUTSIDE RECORDS SUMMARY | 2019-03-20 18:05 | XMS REPORT | Summary of Care ---
:1955 Author Organization [facility] Address [address] [place] [address] Care Team Providers Name Role Phone Wally Angulo Primary Care Provider Wally Angulo Insurance Hmo Bernabe Poe MD Unavailable Sophia Fisher [facility] Labview Programmer Unavailable Encounter Details Date Type Department Care Team Description 02/05/2019 Patient Secure [facility] Internal Wally Angulo [address] [place] [address] [place] [address] , [address] [place] [address] Allergies Active Allergy Reactions Severity Noted Date Comments Aripiprazole Unknown - See comments 04/10/2014 Symptoms of tardive dyskinesia Patient states that she is currently taking medication. 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 If I am a smoker, stop smoking ? Manage stress by identifying three ways to reduce stress ? [employer] (www.[facility]/[employer]) is an online tool that will allow me to review lab results and portions of my health record, and to communicate with healthcare providers as needed. If I do not have a [employer] account, I will discuss this with my [...] woman exam with routine gynecological exam 03/11/2015 [facility] current use of opiate analgesic 03/11/2015 Personal [...] stools and was evaluated by a GI testing consultant in [place] about 10 years ago who told her she had then inflammatory bowel disease. However, she has been basically asymptomatic since except for functional bowel symptoms Chronic pain syndrome Overview: As part of the fibromyalgia Rheumatoid arthritis Overview: ICD10 Diagnosis Term Freight Conductor Utility documented as of this encounter (statuses as of 02/06/2019) Resolved Problems Problem Noted Date Resolved Date [...] arthritis 03/18/2011 04/04/2013 Overview: ICD10 Diagnosis Term Freight Conductor Utility Encounter for long-term (current) use of [...] S/p laparoscopic cholecystectomy 09/19/2007 ICD10 Diagnosis Term Freight Conductor Utility Calculus of bile duct 09/19/2007 11/29/2007 Overview: S/p laparoscopic cholecystectomy 09/19/2007 ICD10 Diagnosis Term Freight Conductor Utility Psoriatic arthropathy 12/29/2011 Overview: On Remicade infusions. Has never received Enbrel or Humira. Rheumatism and fibrositis 10/29/2008 Overview: ICD10 Diagnosis Term Freight Conductor Utility Irritable bowel syndrome 12/29/2011 Overview: Has periods of constipation alternating with loose stools off and on. Hypothyroidism 10/05/2015 Overview: ICD10 Diagnosis Term Freight Conductor Utility Chronic pain syndrome 12/29/2011 Overview: As part of the fibromyalgia Psoriatic arthropathy 01/05/2015 documented as of this encounter (statuses as of 02/06/2019) Immunizations Name Administration Dates Next Due H1n1 [...] Treatment Date Type Specialty Care Team Description 02/19/2019 Nurse Visit Pain Medicine Fede Villanueva 02/26/2019 Office Visit Pain Medicine Ciro Villanueva MD [address] [facility] [id number] [place] [address] [phone] 03/19/2019 Nurse Visit Pain Medicine Fede Villanueva 03/30/2019 Office Visit Pulmonary Disease Simi Veliz DO [address] [place] [address] [phone] 04/05/2019 Office Visit Internal Medicine Wally Angulo [address] [facility] [address] [place] [address] [phone] 04/16/2019 Nurse Visit Pain Medicine Fede Villanueva 04/17/2019 Office Visit Infectious Disease Sebastian Alberto [facility] TA[address] [place] [address] [phone] Health Maintenance Due Date Last Done Comments [...] of this encounter Implants Implanted Type Area Metal Buildings Assembler Device Identifier Shelf Expiration Model / Serial Date / Lot Hip HIP documented as of this encounter Results Not on filedocumented in this encounter Insurance Payer Benefit Plan / Subscriber ID Effective Dates Phone Address Type Group MEDICARE MEDICARE PART xxxxxxxxxxx 1992-[place] [phone] [address] Medicare A & B t 2 [id number] THI CORTÉS [id number] documented as of this encounter Advance Directives Type Date Recorded Patient Telecommunications Project Manager Explanation Advance Directives and Living 05/14/2014 1:59 PM Will Power of Shellfish Bed Worker 03/07/2015 2:05 PM
--- OUTSIDE RECORDS SUMMARY | 2019-03-20 18:05 | XMS REPORT | Summary of Care ---
:1955 Author Organization [facility] Address [address] [place] [address] Care Team Providers Name Role Phone Wally Angulo Primary Care Provider Wally Angulo Insurance Hmo Bernabe Poe MD Unavailable Sophia Fisher [facility] Roller Hand Unavailable Encounter Details Date Type Department Care Team Description 02/05/2019 Patient Secure [facility] Internal Wally Angulo [address] [place] [address] [place] [address] , [address] [place] [address] Allergies Active Allergy Reactions Severity [...] Active ORAL TAB fluticasone (FLONASE) Use 1 [place] in each 1 Bottle 2 Active 50 [...] drink per day for most women and cover creaser weight men ? If I am a smoker, stop smoking ? Manage stress by identifying three ways to reduce stress ? [employer] (www.[email or web address]/[employer]) is an online tool that will allow me to review lab results and portions of my health record, and to communicate with healthcare providers as needed. If I do not have a [employer] account, I will discuss this with my [...] woman exam with routine gynecological exam 03/11/2015 intermediate current use of opiate analgesic 03/11/2015 Personal [...] stools and was evaluated by a GI acquisition consultant in [place] about 10 years ago who told her she had then inflammatory bowel disease. However, she has been basically asymptomatic since except for functional bowel symptoms Chronic pain syndrome Overview: As part of the fibromyalgia Rheumatoid arthritis Overview: ICD10 Diagnosis Term Pneumatic Drum Sander Utility documented as of this encounter (statuses [...] arthritis 03/18/2011 04/04/2013 Overview: ICD10 Diagnosis Term Pneumatic Drum Sander Utility Encounter for long-term (current) use of [...] S/p laparoscopic cholecystectomy 09/19/2007 ICD10 Diagnosis Term Pneumatic Drum Sander Utility Calculus of bile duct 09/19/2007 11/29/2007 Overview: S/p laparoscopic cholecystectomy 09/19/2007 ICD10 Diagnosis Term Pneumatic Drum Sander Utility Psoriatic arthropathy 12/29/2011 Overview: On Remicade infusions. Has never received Enbrel or Humira. Rheumatism and fibrositis 10/29/2008 Overview: ICD10 Diagnosis Term Pneumatic Drum Sander Utility Irritable bowel syndrome 12/29/2011 Overview: Has periods of constipation alternating with loose stools off and on. Hypothyroidism 10/05/2015 Overview: ICD10 Diagnosis Term Pneumatic Drum Sander Utility Chronic pain syndrome 12/29/2011 Overview: As [...] Visit Pain Medicine Ciro Villanueva MD [address] [facility] [id number] [place] [address] [phone] 03/19/2019 Nurse Visit Pain Medicine Fede Villanueva 03/30/2019 Office Visit Pulmonary Disease Simi Veliz DO [address] [place] [address] [phone] 04/05/2019 Office Visit Internal Medicine Wally Angulo [address] [facility] [address] [place] [address] [phone] 04/16/2019 Nurse Visit Pain Medicine Fede Villanueva 04/17/2019 Office Visit Infectious Disease Sebastian Alberto [facility] [id number] [place] [address] [phone] Health Maintenance Due Date Last Done Comments [...] of this encounter Implants Implanted Type Area Econometrician Device Identifier Shelf Expiration Model / Serial Date / Lot Hip HIP documented as of this encounter Results Not on filedocumented in this encounter Insurance Payer Benefit Plan / Subscriber ID Effective Dates Phone Address Type Group MEDICARE MEDICARE PART xxxxxxxxxxx 1992-[place] [phone] [address] Medicare A & B t 2 [id number] THI CORTÉS [id number] documented as of this encounter Advance Directives Type Date Recorded Patient Print Shop Assistant Explanation Advance Directives and Living 05/14/2014 1:59 PM Will Power of Proofsheet Corrector 03/07/2015 2:05 PM
--- OUTSIDE RECORDS SUMMARY | 2019-03-20 18:06 | XMS REPORT | Summary of Care ---
:1955 Author Organization [facility] Address [address] [place] [address] Care Team Providers Name Role Phone Wally Angulo Primary Care Provider Wally Angulo Insurance Hmo Bernabe Poe MD Unavailable Sophia Fisher [facility] Carton Marker Machine Unavailable Reason for Referral (Routine) Status Reason Specialty Diagnoses / Referred By Referred To Procedures Contact Contact New Request Rheumatology Diagnoses Rheumatoid arthritis, involving unspecified site, unspecified rheumatoid factor presence Psoriatic arthritis Wally Angulo Emilio Procedures CONSULT/REFERRAL RHEUMATOLOGY Dennys Sow MD [address] [place] [address] [address] [id number] [place] [address] Phone: Fax: Encounter Details Date Type Department Care Team Description 02/05/2019 Patient Secure [facility] Internal Wally Angulo Rheumatoid arthritis, involving unspecified site, unspecified rheumatoid factor presence ( Primary Dx); [facility] A Psoriatic arthritis Primary Care [address] [facility] [address], [place], [place] [address] [place] [phone] Allergies Active Allergy Reactions Severity Noted Date [...] Active ORAL TAB fluticasone (FLONASE) Use 1 [place] in each 1 Bottle 2 Active 50 [...] drink per day for most women and sheep herder weight men ? If I am a smoker, stop smoking ? Manage stress by identifying three ways to reduce stress ? [employer] (www.[facility]/[employer]) is an online tool that will allow me to review lab results and portions of my health record, and to communicate with healthcare providers as needed. 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 However, she has been basically asymptomatic since except for functional bowel symptoms Chronic pain syndrome Overview: As part of the fibromyalgia Rheumatoid arthritis Overview: ICD10 Diagnosis Term Grey Iron Molder Utility documented as of this encounter (statuses [...] arthritis 03/18/2011 04/04/2013 Overview: ICD10 Diagnosis Term Grey Iron Molder Utility Encounter for long-term (current) use of [...] S/p laparoscopic cholecystectomy 09/19/2007 ICD10 Diagnosis Term Grey Iron Molder Utility Calculus of bile duct 09/19/2007 11/29/2007 Overview: S/p laparoscopic cholecystectomy 09/19/2007 ICD10 Diagnosis Term Grey Iron Molder Utility Psoriatic arthropathy 12/29/2011 Overview: On Remicade infusions. Has never received Enbrel or Humira. Rheumatism and fibrositis 10/29/2008 Overview: ICD10 Diagnosis Term Grey Iron Molder Utility Irritable bowel syndrome 12/29/2011 Overview: Has periods of constipation alternating with loose stools off and on. Hypothyroidism 10/05/2015 Overview: ICD10 Diagnosis Term Grey Iron Molder Utility Chronic pain syndrome 12/29/2011 Overview: As [...] Care Team Description 02/19/2019 Nurse Visit Pain Fede Smith 02/26/2019 Office Visit Pain Medicine Ciro Villanueva MD [id number] [place] [address] [phone] 03/19/2019 Nurse Visit Pain Medicine Rich, Erx 03/30/2019 Office Visit Pulmonary Disease Simi Veliz DO [address] [place] [address] 04/05/2019 Office Visit Internal Medicine Wally Angulo [address] [place] [address] [phone] 04/16/2019 Nurse Visit Pain Medicine Rich, Erx 04/17/2019 Office Visit Infectious Disease Dolly Sebastian S [id number] [place], [place] [phone] Health Maintenance Due Date Last Done Comments [...] of this encounter Implants Implanted Type Area Computer Graphic Artist Device Identifier Shelf Expiration Model / Serial Date / Lot Hip HIP documented as of this encounter Results Not on filedocumented in this encounter Visit Diagnoses Diagnosis Rheumatoid arthritis, involving unspecified site, unspecified rheumatoid factor presence - Primary Psoriatic arthritis Psoriatic arthropathy documented in this encounter Insurance Payer Benefit Plan / Subscriber ID Effective Dates Phone Address Type Group MEDICARE MEDICARE PART xxxxxxxxxxx 1992-[place] [phone] 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
--- OUTSIDE RECORDS SUMMARY | 2019-03-20 18:06 | XMS REPORT | Summary of Care ---
:1955 Author Organization [facility] Address [address] [place] [address] Care Team Providers Name Role Phone Wally Agnulo Primary Care Provider Wally Angulo Insurance Hmo Beranbe Poe MD Unavailable Sophia Fisher [facility] Wafer Polisher Unavailable Encounter Details Date Type Department Care Team Description 02/02/2019 Patient Secure [facility] Internal Doctor Unassigned, [facility] [address] [place] [address] [address] [facility], [place] [address] [place] [phone] Allergies Active Allergy Reactions Severity Noted Date Comments Aripiprazole Unknown - See comments 04/10/2014 Symptoms of tardive dyskinesia Patient states that she is currently taking medication. Quetiapine Fumarate Unknown - See comments 03/05/2014 tremors Sulfasalazine Hives 01/21/2011 documented as of this encounter (statuses as of 02/08/2019) Medications Medication Sig Dispensed Refills Start End Status Date Date MULTIPLE VITAMINS DAILY 2 pills a day 0 Active ORAL TAB fluticasone (FLONASE) Use 1 [place] in each 1 Bottle 2 Active 50 [...] arthritis, Psoriasis, Chronic pain syndrome, Seizure disorder metoclopramide HCl 5 mg Take 1 tablet [...] TWICE DAILY 9 Anxiety NEEDED FOR ANXIETY OTEZLA 30 mg TAKE 1 TABLET BY 60 tablet 0 Active tabletIndications: MOUTH TWICE DAILY 9 Seropositive rheumatoid arthritis documented as of this encounter (statuses as of 02/08/2019) Active Problems Patient Care Coordination Note Hypertension [...] drink per day for most women and roll grinder weight men ? If I am a smoker, stop smoking ? Manage stress by identifying three ways to reduce stress ? [employer] (www.[facility]/[employer]) is an online tool that will allow me to review lab results and portions of my health record, and to communicate with healthcare providers as needed. 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 However, she has been basically asymptomatic since except for functional bowel symptoms Chronic pain syndrome Overview: As part of the fibromyalgia Rheumatoid arthritis Overview: ICD10 Diagnosis Term Jet Man Utility documented as of this encounter (statuses as of 02/08/2019) Resolved Problems Problem Noted Date Resolved Date [...] arthritis 03/18/2011 04/04/2013 Overview: ICD10 Diagnosis Term Jet Man Utility Encounter for long-term (current) use of [...] S/p laparoscopic cholecystectomy 09/19/2007 ICD10 Diagnosis Term Jet Man Utility Calculus of bile duct 09/19/2007 11/29/2007 Overview: S/p laparoscopic cholecystectomy 09/19/2007 ICD10 Diagnosis Term Jet Man Utility Psoriatic arthropathy 12/29/2011 Overview: On Remicade infusions. Has never received Enbrel or Humira. Rheumatism and fibrositis 10/29/2008 Overview: ICD10 Diagnosis Term Jet Man Utility Irritable bowel syndrome 12/29/2011 Overview: Has periods of constipation alternating with loose stools off and on. Hypothyroidism 10/05/2015 Overview: ICD10 Diagnosis Term Jet Man Utility Chronic pain syndrome 12/29/2011 Overview: As part of the fibromyalgia Psoriatic arthropathy 01/05/2015 documented as of this encounter (statuses as of 02/08/2019) Immunizations Name Administration Dates Next Due H1n1 [...] Team Description 02/19/2019 Nurse Visit Pain Medicine Rich, Erx 02/21/2019 Office Visit Rheumatology Wilfred Leary DO [address] [place], [place] [address] 02/26/2019 Office Visit Pain Medicine Ciro Villanueva MD [id number] [place], [place] [address] 03/19/2019 Nurse Visit Pain Medicine Rich, Erx 03/30/2019 Office Visit Pulmonary Disease Simi Veliz DO [address] [place] [phone] 04/05/2019 Office Visit Internal Medicine Wally Angulo [address] [place], [place] [address] 04/16/2019 Nurse Visit Pain Medicine Fede Villanueva 04/17/2019 Office Visit Infectious Disease Sebastian Alberto [id number] [place], [place] [address] Health Maintenance Due Date Last Done Comments [...] of this encounter Implants Implanted Type Area Analytical Data Scientist Device Identifier Shelf Expiration Model / Serial Date / Lot Hip HIP documented as of this encounter Results Not on filedocumented in this encounter Insurance Payer Benefit Plan / Subscriber ID Effective Dates Phone Address Type Group MEDICARE MEDICARE PART xxxxxxxxxxx 1992-[place] [phone] [address] Medicare A & B t 2 [id number] THI CORTÉS [id number] documented as of this encounter Advance Directives Type Date Recorded Patient Fingerprint Expert Explanation Advance Directives and Living 05/14/2014 1:59 PM Will Power of Rug Backing Stenciler 03/07/2015 2:05 PM
--- OUTSIDE RECORDS SUMMARY | 2019-03-20 18:06 | XMS REPORT | Summary of Care ---
:1955 Author Organization [facility] Address [address] [place] [address] Care Team Providers Name Role Phone Wally Angulo Primary Care Provider Wally Angulo Insurance Hmo Bernabe Poe MD Unavailable Sophia Fisher [facility] Rides Attendant Unavailable Reason for Visit Reason Comments Refill Request Encounter Details Date Type Department Care Team Description 02/02/2019 Refill [facility] Vic Zazueta MD Refill [address] [place] [address] [address] [facility] [phone] [place] [address] [phone] Allergies Active Allergy Reactions Severity Noted Date Comments Aripiprazole Unknown - See comments 04/10/2014 Symptoms of tardive dyskinesia Patient states that she is currently taking medication. Quetiapine Fumarate Unknown - See comments 03/05/2014 tremors Sulfasalazine Hives 01/21/2011 documented as of this encounter (statuses as of 02/06/2019) Medications Medication Sig Dispensed Refills Start End Status Date Date MULTIPLE VITAMINS 2 pills a day 0 Active DAILY ORAL TAB fluticasone (FLONASE) Use 1 [place] in 1 Bottle 2 Active 50 mcg/actuation nasal each nostril 014 spray daily. SERTraline (ZOLOFT) Take 2 tablets by 60 tablet 1 Active 100 mg tablet mouth at bedtime. 016 tazarotene (TAZORAC) Apply to area(s) 60 g 1 Active 0.05 % cream at bedtime. For 016 thick plaques not improving with other medications. triamcinolone Apply to area(s) 454 g 2 Active acetonide 0.1 % cream 2 (two) times 017 daily as needed (Psoriasis on trunk and extremities). mupirocin (BACTROBAN) Apply to area(s) 22 g 1 Active 2 % daily. 017 ointmentIndications: Bilateral great toes ulcers Mucus Clearing Device Use as directed 1 Device 0 Active (FLUTTER) Rebecca 017 levETIRAcetam (KEPPRA) Take 500 mg by 0 Active 500 mg tablet mouth daily. melatonin 10 mg Take by mouth at 0 Active TabIndications: Take 2 bedtime. tabs Indications: Take 2 tabs magnesium oxide 400 mg TK 1 T PO D 0 Active tablet 018 metoprolol tartrate 25 TK 1 T PO BID AT 6 180 tablet 3 Active mg tablet AM AND AT 6 PM 018 DULoxetine 30 mg Take 30 mg by 0 Active capsule mouth daily. Diclofenac Epolamine Apply to skin 30 Patch 3 Active (FLECTOR) 1.3 % patch once daily as 018 needed for Pain (scale 4-6). triamcinolone Apply to area(s) 454 g 0 Active acetonide 0.1 % 2 (two) times 018 ointment daily. As needed. Avoid face, groin, axillae calcipotriene-betameth Apply to area(s) 60 g 1 Active asone (TACLONEX) daily. For scalp 018 0.005-0.064 % external suspension albuterol 90 Inhale 2 Puffs 8.5 g 11 Active mcg/actuation inhaler every 6 (six) 018 hours as needed for Wheezing or Shortness of Breath. albuterol 2.5 mg /3 mL Inhale 3 mL every 75 Vial 11 Active (0.083 %) nebulizer 6 (six) hours as 018 solution needed for Wheezing or Shortness of Breath. sodium chloride Inhale 1 Vial 2 60 Vial 11 Active (HYPER-TYLER) 3.5 % Nebu (two) times daily. 018 pantoprazole 40 mg EC Take 1 tablet by 180 tablet 1 Active tablet mouth 2 (two) 018 times daily. ergocalciferol, Take 1 capsule by 1 capsule 3 Active vitamin d2, 50,000 mouth every 4 019 unit (four) weeks. capsuleIndications: Other osteoporosis without current pathological fracture, Vitamin D deficiency, Essential hypertension, benign, Major depressive disorder, recurrent episode, moderate, Psoriatic arthritis, Psychophysiological insomnia SUCRALFATE 1 gram TAKE 1 TABLET BY 120 tablet 2 Active tablet MOUTH BEFORE MEALS 019 AND AT BEDTIME baclofen 10 mg tablet Take 1 tablet by 90 tablet 2 Active mouth 3 (three) 019 times daily. OTEZLA STARTER 10 mg 0 Active (4)-20 mg (4)-30 mg 019 (47) DsPk cyanocobalamin 1 mL by 30 mL 0 Active (VITAMIN B-12) 1,000 Intramuscular 019 mcg/mL route weekly. injectionIndications: Osteopenia of both hips pregabalin (LYRICA) Take 1 capsule by 90 capsule 3 Active 150 mg capsule mouth 3 (three) 019 times daily. TRAZODONE 100 mg TAKE 1 TABLET BY 30 tablet 0 Active tabletIndications: MOUTH AT BEDTIME 019 Depression, unspecified depression type Diclofenac Sodium Apply to area(s) 100 g 3 Active (VOLTAREN) 1 % 2 (two) times 019 gelIndications: daily. Rheumatoid arthritis involving both hands, unspecified rheumatoid factor presence Fluticasone-Salmeterol Inhale 1 Puff 60 Each 11 Active (ADVAIR DISKUS) 500-50 every 12 (twelve) 019 mcg/dose inhalation hours. diskIndications: Pulmonary emphysema, unspecified emphysema type fluticasone-salmeterol Inhale 2 Puffs 2 12 g 11 Active (ADVAIR HFA) 230-21 (two) times daily. 019 mcg/actuation inhalerIndications: Dyspnea, unspecified type celecoxib 200 mg Take 1 capsule by 30 capsule 3 Active capsuleIndications: mouth daily. 019 Psoriatic arthritis, Psoriasis, Chronic pain syndrome, Seizure disorder metoclopramide HCl 5 Take 1 tablet by 60 tablet 0 11/24/ Active mg tabletIndications: mouth 2 (two) 019 Abdominal pain, times daily as unspecified abdominal needed for Nausea location and Vomiting (N/V) or Gastroesophageal reflux. busPIRone 15 mg TAKE 1 TABLET BY 90 tablet 0 2 Active tabletIndications: MOUTH 3 TIMES 019 Depression, DAILY unspecified depression type ESZOPICLONE 3 mg TAKE 1 TABLET BY 90 tablet 0 Active tabletIndications: MOUTH AT BEDTIME 019 Persistent insomnia NEEDED FOR INSOMNIA LISINOPRIL 10 mg TAKE 2 TABLETS BY 180 tablet 0 Active tablet MOUTH DAILY 019 LEVOTHYROXINE 100 mcg TAKE 1 TABLET BY 90 tablet 1 Active tabletIndications: MOUTH ONCE DAILY 019 Hypothyroidism, unspecified type FENTanyl 100 mcg/hr Apply 1 Patch to 10 Patch 0 Active patchIndications: skin every 72 019 Psoriatic arthropathy (seventy-two) hours. FENTanyl 25 mcg/hr Apply 1 Patch to 10 Patch 0 Active patchIndications: skin every 72 019 Chronic pain syndrome (seventy-two) hours. HYDROcodone-acetaminop Take 1 pill by 150 tablet 0 Active hen (NORCO) 10-325 mg mouth every 4 019 tabletIndications: hours as needed Psoriatic arthropathy, for pain, Max 6 Chronic pain syndrome daily SUMATRIPTAN 25 mg TAKE 1 TABLET BY 9 tablet 0 Active tabletIndications: MOUTH ONCE DAILY 019 Nonintractable NEEDED FOR headache, unspecified MIGRAINE. REPEAT chronicity pattern, IN 2HOURS IF NO unspecified headache RELIEF. MAX 100MG type IN A DAY NO MORE THAN 400MG PER MONTH AMLODIPINE 10 mg TAKE 1 TABLET BY 90 tablet 1 Active tablet MOUTH DAILY 019 LORAZEPAM 0.5 mg TAKE 1 TABLET BY 60 tablet 0 Active tabletIndications: MOUTH TWICE DAILY 019 Anxiety NEEDED FOR ANXIETY OTEZLA 30 mg TAKE 1 TABLET BY 60 tablet 0 07/30/2 Active tabletIndications: MOUTH TWICE DAILY 019 Seropositive rheumatoid arthritis OTEZLA 30 mg tablet TAKE 1 TABLET BY 180 tablet 0 02/02/ MOUTH TWICE DAILY 019 2018 documented as of this encounter (statuses as [...] drink per day for most women and fly frame tender weight men ? If I am a smoker, stop smoking ? Manage stress by identifying three ways to reduce stress ? [employer] (www.[facility]/[employer]) is an online tool that will allow me to review lab results and portions of my health record, and to communicate with healthcare providers as needed. 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 However, she has been basically asymptomatic since except for functional bowel symptoms Chronic pain syndrome Overview: As part of the fibromyalgia Rheumatoid arthritis Overview: ICD10 Diagnosis Term Lead Python Developer Utility documented as of this encounter (statuses [...] arthritis 03/18/2011 04/04/2013 Overview: ICD10 Diagnosis Term Lead Python Developer Utility Encounter for long-term (current) use of [...] S/p laparoscopic cholecystectomy 09/19/2007 ICD10 Diagnosis Term Lead Python Developer Utility Calculus of bile duct 09/19/2007 11/29/2007 Overview: S/p laparoscopic cholecystectomy 09/19/2007 ICD10 Diagnosis Term Lead Python Developer Utility Psoriatic arthropathy 12/29/2011 Overview: On Remicade infusions. Has never received Enbrel or Humira. Rheumatism and fibrositis 10/29/2008 Overview: ICD10 Diagnosis Term Lead Python Developer Utility Irritable bowel syndrome 12/29/2011 Overview: Has periods of constipation alternating with loose stools off and on. Hypothyroidism 10/05/2015 Overview: ICD10 Diagnosis Term Lead Python Developer Utility Chronic pain syndrome 12/29/2011 Overview: As [...] 02/19/2019 Nurse Visit Pain Medicine Rich, Erx 02/26/2019 Office Visit Pain Medicine Ciro Villanueva MD [id number] [place] [address] [phone] 03/19/2019 Nurse Visit Pain Medicine Rich, Erx 03/30/2019 Office Visit Pulmonary Disease Simi Veliz DO [address] [place] [phone] 04/05/2019 Office Visit Internal Medicine Wally Angulo [address] [place], [place] [phone] 04/16/2019 Nurse Visit Pain Medicine Fede Villanueva 04/17/2019 Office Visit Infectious Disease Sebastian Alberto [id number] [place], [place] [phone] Health Maintenance Due Date Last Done Comments [...] of this encounter Implants Implanted Type Area Liability Claims Examiner Device Identifier Shelf Expiration Model / Serial Date / Lot Hip HIP documented as of this encounter Results Not on filedocumented in this encounter Visit Diagnoses Diagnosis Seropositive rheumatoid arthritis - Primary Rheumatoid arthritis documented in this encounter Insurance Payer Benefit Plan / Subscriber ID Effective Dates Phone Address Type Group MEDICARE MEDICARE PART xxxxxxxxxxx 1992-[place] [phone] 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
--- OUTSIDE RECORDS SUMMARY | 2019-03-20 18:07 | XMS REPORT | Summary of Care ---
:1955 Author Organization [facility] Address [address] [place] [address] 114[address] Care Team Providers Name Role Phone Wally Angulo Primary Care Provider Wally Angulo Insurance Hmo Bernabe Poe MD Unavailable Sophia Fisher [facility] Coring Machine Operator Unavailable Encounter Details Date Type Department Care Team Description 02/09/2019 Patient Secure [facility] Anesthesia Doulatram, [facility] MD Ciro [address] [address] [id number] [place], [place] [phone] Allergies Active Allergy Reactions Severity Noted Date Comments Aripiprazole Unknown - See comments 04/10/2014 Symptoms of tardive dyskinesia Patient states that she is currently taking medication. Quetiapine Fumarate Unknown - See comments 03/05/2014 tremors Sulfasalazine Hives 01/21/2011 documented as of this encounter (statuses as of 02/09/2019) Medications Medication Sig Dispensed Refills Start End Status Date Date MULTIPLE VITAMINS DAILY 2 pills a day 0 Active ORAL TAB fluticasone (FLONASE) Use 1 [place] in each 1 Bottle 2 Active 50 [...] as of this encounter (statuses as of 02/09/2019) Active Problems Patient Care Coordination Note Hypertension [...] drink per day for most women and email marketing assistant weight men ? If I am a smoker, stop smoking ? Manage stress by identifying three ways to reduce stress ? [employer] (www.[facility]/Clinked) is an online tool that will allow me to review lab results and portions of my health record, and to communicate with healthcare providers as needed. 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 However, she has been basically asymptomatic since except for functional bowel symptoms Chronic pain syndrome Overview: As part of the fibromyalgia Rheumatoid arthritis Overview: ICD10 Diagnosis Term Personnel Recruiter Utility documented as of this encounter (statuses as of 02/09/2019) Resolved Problems Problem Noted Date Resolved Date [...] arthritis 03/18/2011 04/04/2013 Overview: ICD10 Diagnosis Term Personnel Recruiter Utility Encounter for long-term (current) use of [...] S/p laparoscopic cholecystectomy 09/19/2007 ICD10 Diagnosis Term Personnel Recruiter Utility Calculus of bile duct 09/19/2007 11/29/2007 Overview: S/p laparoscopic cholecystectomy 09/19/2007 ICD10 Diagnosis Term Personnel Recruiter Utility Psoriatic arthropathy 12/29/2011 Overview: On Remicade infusions. Has never received Enbrel or Humira. Rheumatism and fibrositis 10/29/2008 Overview: ICD10 Diagnosis Term Personnel Recruiter Utility Irritable bowel syndrome 12/29/2011 Overview: Has periods of constipation alternating with loose stools off and on. Hypothyroidism 10/05/2015 Overview: ICD10 Diagnosis Term Personnel Recruiter Utility Chronic pain syndrome 12/29/2011 Overview: As part of the fibromyalgia Psoriatic arthropathy 01/05/2015 documented as of this encounter (statuses as of 02/09/2019) Immunizations Name Administration Dates Next Due H1n1 [...] 02/19/2019 Nurse Visit Pain Medicine Fede Villanueva 02/21/2019 Office Visit Rheumatology Wilfred Leary DO [address] [place] [address] [phone] 02/26/2019 Office Visit Pain Medicine Ciro Villanueva MD [address] [id number] [place], [place] [address] 03/19/2019 Nurse Visit Pain Medicine Rich Ersocorro 03/30/2019 Office Visit Pulmonary Disease Simi Veliz DO [address] [place] [phone] 04/05/2019 Office Visit Internal Medicine Wally Angulo [address] [place], [place] [address] 04/16/2019 Nurse Visit Pain Medicine Rich, Erx 04/17/2019 Office Visit Infectious Disease Sebastian Alberto [address] [id number] [place], [place] [address] Health Maintenance Due Date Last Done Comments [...] of this encounter Implants Implanted Type Area Painter Helper Sign Device Identifier Shelf Expiration Model / Serial Date / Lot Hip HIP documented as of this encounter Results Not on filedocumented in this encounter Insurance Payer Benefit Plan / Subscriber ID Effective Dates Phone Address Type Group MEDICARE MEDICARE PART xxxxxxxxxxx 1992-[place] [phone] Medicare A & B t 2 [id number] THI [place]ORT[place]S [id number] documented as of this encounter Advance Directives Type Date Recorded Patient Chicken Handler Explanation Advance Directives and Living 05/14/2014 1:59 PM Will Power of Linux Consultant 03/07/2015 2:05 PM
--- OUTSIDE RECORDS SUMMARY | 2019-03-20 18:07 | XMS REPORT | Summary of Care ---
:1955 Author Organization [facility] Address [address] [place] [address] Care Team Providers Name Role Phone Wally Angulo Primary Care Provider Wally Angulo Insurance Hmo Bernabe Poe MD Unavailable Sophia Fisher [facility] Soaker Soda Worker Unavailable Reason for Visit Reason Comments Refill Request Encounter Details Date Type Department Care Team Description 01/29/2019 Refill [facility] Infectious Dolly Sebastian Kendy Refill Request Diseases- [address] BS[address] [place], [place] [id number] [place] [address] [place] [address] Allergies Active Allergy Reactions Severity Noted Date Comments Aripiprazole Unknown - See comments 04/10/2014 Symptoms of tardive dyskinesia Patient states that she is currently taking medication. Quetiapine Fumarate Unknown - See comments 03/05/2014 tremors Sulfasalazine Hives 01/21/2011 documented as of this encounter (statuses as of 02/12/2019) Medications Medication Sig Dispensed Refills Start End Status Date Date MULTIPLE VITAMINS DAILY 2 pills a day 0 Active ORAL TAB fluticasone (FLONASE) Use 1 [place] in each 1 Bottle 2 Active 50 [...] 90 tablet 1 Active MOUTH DAILY 9 documented as of this encounter (statuses as of 02/12/2019) Active Problems Patient Care Coordination Note Hypertension [...] drink per day for most women and stunt performer weight men ? If I am a smoker, stop smoking ? Manage stress by identifying three ways to reduce stress ? [employer] (www.[facility]/[employer]) is an online tool that will allow me to review lab results and portions of my health record, and to communicate with healthcare providers as needed. If I do not have a [employer] account, I will discuss this with [...] woman exam with routine gynecological exam 03/11/2015 alf current use of opiate analgesic 03/11/2015 Personal [...] stools and was evaluated by a GI financial services education consultant in [place] about 10 years ago who told her she had then inflammatory bowel disease. However, she has been basically asymptomatic since except for functional bowel symptoms Chronic pain syndrome Overview: As part of the fibromyalgia Rheumatoid arthritis Overview: ICD10 Diagnosis Term Pipe Insulator Helper Utility documented as of this encounter (statuses as of 02/12/2019) Resolved Problems Problem Noted Date Resolved Date [...] arthritis 03/18/2011 04/04/2013 Overview: ICD10 Diagnosis Term Pipe Insulator Helper Utility Encounter for long-term (current) use of [...] S/p laparoscopic cholecystectomy 09/19/2007 ICD10 Diagnosis Term Pipe Insulator Helper Utility Calculus of bile duct 09/19/2007 11/29/2007 Overview: S/p laparoscopic cholecystectomy 09/19/2007 ICD10 Diagnosis Term Pipe Insulator Helper Utility Psoriatic arthropathy 12/29/2011 Overview: On Remicade infusions. Has never received Enbrel or Humira. Rheumatism and fibrositis 10/29/2008 Overview: ICD10 Diagnosis Term Pipe Insulator Helper Utility Irritable bowel syndrome 12/29/2011 Overview: Has periods of constipation alternating with loose stools off and on. Hypothyroidism 10/05/2015 Overview: ICD10 Diagnosis Term Pipe Insulator Helper Utility Chronic pain syndrome 12/29/2011 Overview: As part of the fibromyalgia Psoriatic arthropathy 01/05/2015 documented as of this encounter (statuses as of 02/12/2019) Immunizations Name Administration Dates Next Due H1n1 [...] Visit Pain Medicine Ciro Villanueva MD [address] [facility] [id number] [place], [place] [address] 03/19/2019 Nurse Visit Pain Medicine Rich Erx 03/30/2019 Office Visit Pulmonary Disease Simi Veliz DO [address] [place] [phone] 04/05/2019 Office Visit Internal Medicine Wally Angulo [address] [facility] [address] [place] [address] [phone] 04/16/2019 Nurse Visit Pain Medicine Rangel Villanuevax 04/17/2019 Office Visit Infectious Disease Sebastian Alberto [address] [facility] [id number] [place] [address] [phone] Health Maintenance Due Date Last Done Comments [...] of this encounter Implants Implanted Type Area Decatizer Device Identifier Shelf Expiration Model / Serial Date / Lot Hip HIP documented as of this encounter Results Not on filedocumented in this encounter Visit Diagnoses Diagnosis Pneumonia of left lower lobe due to infectious organism documented in this encounter Insurance Payer Benefit Plan / Subscriber ID Effective Dates Phone Address Type Group MEDICARE MEDICARE PART xxxxxxxxxxx 1992-[place] [phone] [address] Medicare A & B t 2 [id number] THI [place]ORT[place]S [id number] documented as of this encounter Advance Directives Type Date Recorded Patient Box Blank Machine Operator Explanation Advance Directives and Living 05/14/2014 1:59 PM Will Power of Community Health Navigator 03/07/2015 2:05 PM
--- OUTSIDE RECORDS SUMMARY | 2019-03-20 18:07 | XMS REPORT | Summary of Care ---
:1955 Author Organization [facility] Address [address] [place] [address] Care Team Providers Name Role Phone Wally Angulo Primary Care Provider Wally Angulo Insurance Hmo Bernabe Poe MD Unavailable Sophia Fisher [facility] Plant Floor Automation Manager Unavailable Encounter Details Date Type Department Care Team Description 02/14/2019 Orders Only [facility] Doctor Unassigned, No [address] [facility] [place] [place] [address] [address] [place] [address] Allergies Active Allergy Reactions Severity Noted Date Comments Aripiprazole Unknown - See comments 04/10/2014 Symptoms of tardive dyskinesia Patient states that she is currently taking medication. Quetiapine Fumarate Unknown - See comments 03/05/2014 tremors Sulfasalazine Hives 01/21/2011 documented as of this encounter (statuses as of 02/14/2019) Medications Medication Sig Dispensed Refills Start End Status Date Date MULTIPLE VITAMINS DAILY 2 pills a day 0 Active ORAL TAB fluticasone (FLONASE) Use 1 [place] in each 1 Bottle 2 Active 50 [...] as of this encounter (statuses as of 02/14/2019) Active Problems Patient Care Coordination Note Hypertension [...] drink per day for most women and commercial energy auditor weight men ? If I am a smoker, stop smoking ? Manage stress by identifying three ways to reduce stress ? [employer] (www.[facility]/[employer]) is an online tool that will allow me to review lab results and portions of my health record, and to communicate with healthcare providers as needed. If I do not have a [employer] account, I will discuss this with my [...] woman exam with routine gynecological exam 03/11/2015 [facility] current use of opiate analgesic 03/11/2015 Personal [...] stools and was evaluated by a GI absence management consultant in [place] about 10 years ago who told her she had then inflammatory bowel disease. However, she has been basically asymptomatic since except for functional bowel symptoms Chronic pain syndrome Overview: As part of the fibromyalgia Rheumatoid arthritis Overview: ICD10 Diagnosis Term Tapper Bit Utility documented as of this encounter (statuses as of 02/14/2019) Resolved Problems Problem Noted Date Resolved Date [...] arthritis 03/18/2011 04/04/2013 Overview: ICD10 Diagnosis Term Tapper Bit Utility Encounter for long-term (current) use of [...] S/p laparoscopic cholecystectomy 09/19/2007 ICD10 Diagnosis Term Tapper Bit Utility Calculus of bile duct 09/19/2007 11/29/2007 Overview: S/p laparoscopic cholecystectomy 09/19/2007 ICD10 Diagnosis Term Tapper Bit Utility Psoriatic arthropathy 12/29/2011 Overview: On Remicade infusions. Has never received Enbrel or Humira. Rheumatism and fibrositis 10/29/2008 Overview: ICD10 Diagnosis Term Tapper Bit Utility Irritable bowel syndrome 12/29/2011 Overview: Has periods of constipation alternating with loose stools off and on. Hypothyroidism 10/05/2015 Overview: ICD10 Diagnosis Term Tapper Bit Utility Chronic pain syndrome 12/29/2011 Overview: As part of the fibromyalgia Psoriatic arthropathy 01/05/2015 documented as of this encounter (statuses as of 02/14/2019) Immunizations Name Administration Dates Next Due H1n1 [...] Medicine Ciro Villanueva MD [address] [facility] [id number] [place], [place] [address] 03/19/2019 Nurse Visit Pain Medicine Rich, Erx 03/30/2019 Office Visit Pulmonary Disease Simi Veliz DO [address] [place] [address] 04/05/2019 Office Visit Internal Medicine Wally Angulo [address] [place] [address] [phone] 04/16/2019 Nurse Visit Pain Medicine Rich, Erx 04/17/2019 Office Visit Infectious Disease Sebastian Alberto [address] [place] [address] [phone] Health Maintenance Due Date Last Done Comments [...] of this encounter Implants Implanted Type Area Speech Therapy Assistant Device Identifier Shelf Expiration Model / Serial Date / Lot Hip HIP documented as of this encounter Procedures Procedure Name Priority Date/Time Associated Diagnosis Comments EXTERNAL PROVIDER Routine 02/14/2019 12:01 AM CDT RECORDS documented in this encounter Results Not on filedocumented in this encounter Insurance Payer Benefit Plan / Subscriber ID Effective Dates Phone Address Type Group MEDICARE MEDICARE PART xxxxxxxxxxx 1992-[place] [phone] [address] Medicare A & B t 2 [id number] THI [place]ORT[place] [id number] documented as of this encounter Advance Directives Type Date Recorded Patient Stem Maker Explanation Advance Directives and Living 05/14/2014 1:59 PM Will Power of Consultant Rn 03/07/2015 2:05 PM
--- OUTSIDE RECORDS SUMMARY | 2019-03-20 18:08 | XMS REPORT | Summary of Care ---
:1955 Author Organization [facility] Address [address] [place] [address] Care Team Providers Name Role Phone Wally Angulo Primary Care Provider Wally Angulo Insurance Hmo Bernabe Poe MD Unavailable Sophia Fisher [facility] Surgical Processor Unavailable Encounter Details Date Type Department Care Team Description 02/14/2019 Patient Secure [facility] Internal Vic Zazueta, Medicine Rheumatology[address] [place] [address] [place] [address] , [address] [place] [address] Allergies Active Allergy Reactions Severity Noted Date [...] Active ORAL TAB fluticasone (FLONASE) Use 1 [place] in each 1 Bottle 2 Active 50 [...] drink per day for most women and spinning frame fixer weight men ? If I am a smoker, stop smoking ? Manage stress by identifying three ways to reduce stress ? [employer] (www.[facility]/[employer]) is an online tool that will allow me to review lab results and portions of my health record, and to communicate with healthcare providers as needed. If I do not have a [employer] account, I will discuss this with my [...] stools and was evaluated by a GI systems consultant in [place] about 10 years ago who told her she had then inflammatory bowel disease. However, she has been basically asymptomatic since except for functional bowel symptoms Chronic pain syndrome Overview: As part of the fibromyalgia Rheumatoid arthritis Overview: ICD10 Diagnosis Term Clinical Exercise Specialist Utility documented as of this encounter (statuses [...] arthritis 03/18/2011 04/04/2013 Overview: ICD10 Diagnosis Term Clinical Exercise Specialist Utility Encounter for long-term (current) use of [...] S/p laparoscopic cholecystectomy 09/19/2007 ICD10 Diagnosis Term Clinical Exercise Specialist Utility Calculus of bile duct 09/19/2007 11/29/2007 Overview: S/p laparoscopic cholecystectomy 09/19/2007 ICD10 Diagnosis Term Clinical Exercise Specialist Utility Psoriatic arthropathy 12/29/2011 Overview: On Remicade infusions. Has never received Enbrel or Humira. Rheumatism and fibrositis 10/29/2008 Overview: ICD10 Diagnosis Term Clinical Exercise Specialist Utility Irritable bowel syndrome 12/29/2011 Overview: Has periods of constipation alternating with loose stools off and on. Hypothyroidism 10/05/2015 Overview: ICD10 Diagnosis Term Clinical Exercise Specialist Utility Chronic pain syndrome 12/29/2011 Overview: As [...] Visit Pain Medicine Ciro Villanueva MD [address] [facility] [address] [place], [place] [phone] 03/19/2019 Nurse Visit Pain Medicine Fede Villanueva 03/30/2019 Office Visit Pulmonary Disease Simi Veliz DO [address] [place] [phone] 04/05/2019 Office Visit Internal Medicine Wally Angulo [address] [facility] [address] [place] [address] [phone] 04/16/2019 Nurse Visit Pain Medicine Fede Villanueva 04/17/2019 Office Visit Infectious Disease Sebastian Alberto [address] VT[address] [place] [address] [phone] Health Maintenance Due Date Last Done Comments [...] of this encounter Implants Implanted Type Area Senior Category Manager Device Identifier Shelf Expiration Model / Serial Date / Lot Hip HIP documented as of this encounter Results Not on filedocumented in this encounter Insurance Payer Benefit Plan / Subscriber ID Effective Dates Phone Address Type Group MEDICARE MEDICARE PART xxxxxxxxxxx 1992-[place] [phone] [address] Medicare A & B t 2 [id number] [place] [id number] documented as of this encounter Advance Directives Type Date Recorded Patient Pantograph Setter Explanation Advance Directives and Living 05/14/2014 1:59 PM Will Power of Electrician 03/07/2015 2:05 PM
--- OUTSIDE RECORDS SUMMARY | 2019-03-20 18:08 | XMS REPORT | Summary of Care ---
:1955 Author Organization [facility] Address [address] [place] [address] Care Team Providers Name Role Phone Wally Angulo Primary Care Provider Wally Angulo Insurance Hmo Bernabe Poe MD Unavailable Sophia Fisher [facility] Screedman/Laborer Unavailable Reason for Visit Reason Comments Orders Recert Encounter Details Date Type Department Care Team Description 02/12/2019 Telephone [facility] Internal Wally Angulo Orders (Recert) [address] [place] [address] [facility] [address], [phone] [facility] [place] [address] Allergies Active Allergy Reactions Severity Noted Date Comments Aripiprazole Unknown - See comments 04/10/2014 Symptoms of tardive dyskinesia Patient states that she is currently taking medication. Quetiapine Fumarate Unknown - See comments 03/05/2014 tremors Sulfasalazine Hives 01/21/2011 documented as of this encounter (statuses as of 02/15/2019) Medications Medication Sig Dispensed Refills Start End Status Date Date MULTIPLE VITAMINS DAILY 2 pills a day 0 Active ORAL TAB fluticasone (FLONASE) Use 1 [place] in each 1 Bottle 2 Active 50 [...] as of this encounter (statuses as of 02/15/2019) Active Problems Patient Care Coordination Note Hypertension [...] drink per day for most women and clinical rehabilitation coordinator weight men ? If I am a smoker, stop smoking ? Manage stress by identifying three ways to reduce stress ? [employer] (www.[facility]/[employer]) is an online tool that will allow me to review lab results and portions of my health record, and to communicate with healthcare providers as needed. 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 However, she has been basically asymptomatic since except for functional bowel symptoms Chronic pain syndrome Overview: As part of the fibromyalgia Rheumatoid arthritis Overview: ICD10 Diagnosis Term Catalyst Operator Utility documented as of this encounter (statuses as of 02/15/2019) Resolved Problems Problem Noted Date Resolved Date [...] arthritis 03/18/2011 04/04/2013 Overview: ICD10 Diagnosis Term Catalyst Operator Utility Encounter for long-term (current) use of [...] S/p laparoscopic cholecystectomy 09/19/2007 ICD10 Diagnosis Term Catalyst Operator Utility Calculus of bile duct 09/19/2007 11/29/2007 Overview: S/p laparoscopic cholecystectomy 09/19/2007 ICD10 Diagnosis Term Catalyst Operator Utility Psoriatic arthropathy 12/29/2011 Overview: On Remicade infusions. Has never received Enbrel or Humira. Rheumatism and fibrositis 10/29/2008 Overview: ICD10 Diagnosis Term Catalyst Operator Utility Irritable bowel syndrome 12/29/2011 Overview: Has periods of constipation alternating with loose stools off and on. Hypothyroidism 10/05/2015 Overview: ICD10 Diagnosis Term Catalyst Operator Utility Chronic pain syndrome 12/29/2011 Overview: As part of the fibromyalgia Psoriatic arthropathy 01/05/2015 documented as of this encounter (statuses as of 02/15/2019) Immunizations Name Administration Dates Next Due H1n1 [...] Pain Medicine Ciro Villanueva MD [address] [facility] [address] [place], [place] [address] 03/19/2019 Nurse Visit Pain Medicine Fede Villanueva 03/30/2019 Office Visit Pulmonary Disease Simi Veliz DO [address] [place] [address] [phone] 04/05/2019 Office Visit Internal Medicine Wally Angulo [address] [place] [address] [phone] 04/16/2019 Nurse Visit Pain Medicine Fede Villanueva 04/17/2019 Office Visit Infectious Disease Sebastian Alberto [address] [id number] [place] [address] [phone] Health Maintenance Due Date Last Done Comments [...] of this encounter Implants Implanted Type Area Traffic Control Technician Device Identifier Shelf Expiration Model / Serial Date / Lot Hip HIP documented as of this encounter Results Not on filedocumented in this encounter Insurance Payer Benefit Plan / Subscriber ID Effective Dates Phone Address Type Group MEDICARE MEDICARE PART xxxxxxxxxxx 1992-rAi [phone] [address] Medicare A & B t 2 [id number] [place] [id number] documented as of this encounter Advance Directives Type Date Recorded Patient Meat Soaker Explanation Advance Directives and Living 05/14/2014 1:59 PM Will Power of Cruller Maker Machine 03/07/2015 2:05 PM
--- OUTSIDE RECORDS SUMMARY | 2019-03-20 18:09 | XMS REPORT | Summary of Care ---
:1955 Author Organization [facility] Address [address] [place] [address] Care Team Providers Name Role Phone Wally Angulo Primary Care Provider Wally Angulo Insurance Hmo Bernabe Poe MD Unavailable Sophia Fisher [facility] Cloth Bleaching Range Tender Unavailable Reason for Visit Reason Comments Refill Request Encounter Details Date Type Department Care Team Description 02/19/2019 Refill [facility] Anesthesia Pain-LC Ciro Villanueva, Refill Request [facility] [id number] [place] [address] [place] [address] Allergies Active Allergy Reactions Severity Noted Date Comments Aripiprazole Unknown - See comments 04/10/2014 Symptoms of tardive dyskinesia Patient states that she is currently taking medication. Quetiapine Fumarate Unknown - See comments 03/05/2014 tremors Sulfasalazine Hives 01/21/2011 documented as of this encounter (statuses as of 02/19/2019) Medications Medication Sig Dispensed Refills Start End Status Date Date MULTIPLE VITAMINS 2 pills a day 0 Active DAILY ORAL TAB fluticasone (FLONASE) Use 1 [place] in 1 Bottle 2 Active 50 mcg/actuation [...] 1 tablet by 60 tablet 0 Active mg tabletIndications: mouth 2 (two) 019 Abdominal pain, times daily as unspecified abdominal needed for Nausea location and Vomiting (N/V) or Gastroesophageal reflux. busPIRone 15 mg TAKE 1 TABLET BY 90 tablet 0 Active tabletIndications: MOUTH 3 TIMES 019 Depression, [...] MOUTH ONCE DAILY 019 Hypothyroidism, unspecified type SUMATRIPTAN 25 mg TAKE 1 TABLET BY [...] 0 Active tabletIndications: MOUTH TWICE DAILY 019 Seropositive rheumatoid arthritis FENTanyl 100 mcg/hr Apply 1 Patch to [...] pain, Max 6 Chronic pain syndrome daily FENTanyl 100 mcg/hr Apply 1 Patch to 10 Patch 0 02/19/ Discontinued patchIndications: skin every 2018 Psoriatic arthropathy (seventy-two) hours. FENTanyl 25 mcg/hr Apply 1 Patch to 10 Patch 0 02/19/ Discontinued patchIndications: skin every 2018 Chronic pain syndrome (seventy-two) hours. HYDROcodone-acetaminop Take 1 pill by 150 tablet 0 02/19/ Discontinued hen (NORCO) 10-325 mg mouth every 2018 tabletIndications: hours as needed Psoriatic arthropathy, for pain, Max 6 Chronic pain syndrome daily documented as of this encounter (statuses as of 02/19/2019) Active Problems Patient Care Coordination Note Hypertension [...] drink per day for most women and commodity analyst weight men ? If I am a smoker, stop smoking ? Manage stress by identifying three ways to reduce stress ? E[employer] (www.[facility]/[employer]) is an online tool that will allow me to review lab results and portions of my health record, and to communicate with healthcare providers as needed. 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 However, she has been basically asymptomatic since except for functional bowel symptoms Chronic pain syndrome Overview: As part of the fibromyalgia Rheumatoid arthritis Overview: ICD10 Diagnosis Term Numerical Control Nesting Operator Utility documented as of this encounter (statuses as of 02/19/2019) Resolved Problems Problem Noted Date Resolved Date [...] arthritis 03/18/2011 04/04/2013 Overview: ICD10 Diagnosis Term Numerical Control Nesting Operator Utility Encounter for long-term (current) use [...] S/p laparoscopic cholecystectomy 09/19/2007 ICD10 Diagnosis Term Numerical Control Nesting Operator Utility Calculus of bile duct 09/19/2007 11/29/2007 Overview: S/p laparoscopic cholecystectomy 09/19/2007 ICD10 Diagnosis Term Numerical Control Nesting Operator Utility Psoriatic arthropathy 12/29/2011 Overview: On Remicade infusions. Has never received Enbrel or Humira. Rheumatism and fibrositis 10/29/2008 Overview: ICD10 Diagnosis Term Numerical Control Nesting Operator Utility Irritable bowel syndrome 12/29/2011 Overview: Has periods of constipation alternating with loose stools off and on. Hypothyroidism 10/05/2015 Overview: ICD10 Diagnosis Term Numerical Control Nesting Operator Utility Chronic pain syndrome 12/29/2011 Overview: As part of the fibromyalgia Psoriatic arthropathy 01/05/2015 documented as of this encounter (statuses as of 02/19/2019) Immunizations Name Administration Dates Next Due H1n1 [...] Treatment Date Type Specialty Care Team Description 02/26/2019 Office Visit Pain Medicine Ciro Villanueva MD [id number] [place] [address] [phone] 03/19/2019 Nurse Visit Pain Medicine Doulatram, Erx 03/30/2019 Office Visit Pulmonary Disease Simi Veliz DO [address] [place] [address] [phone] 04/05/2019 Office Visit Internal Medicine Wally Angulo [address] [place] [address] [phone] 04/06/2019 Office Visit Internal Medicine Wally Angulo [address] [place] [address] [phone] 04/16/2019 Nurse Visit Pain Medicine Rich, Erx 04/17/2019 Office Visit Infectious Disease Sebastian Alberto [id number] [place], [place] [address] Health Maintenance Due Date Last Done Comments [...] of this encounter Implants Implanted Type Area Bobbin Presser Device Identifier Shelf Expiration Model / Serial Date / Lot Hip HIP documented as of this encounter Results Not on filedocumented in this encounter Visit Diagnoses Diagnosis Psoriatic arthropathy Chronic pain syndrome documented in this encounter Insurance Payer Benefit Plan / Subscriber ID Effective Dates Phone Address Type Group MEDICARE MEDICARE PART xxxxxxxxxxx 1993-[place] [phone] Medicare A & B t 2 [id number] [place] [id number] documented as of this encounter Advance Directives Type Date Recorded Patient Customs Port Director Explanation Advance Directives and Living 05/14/2014 1:59 PM Will Power of Service Administrator 03/07/2015 2:05 PM
--- OUTSIDE RECORDS SUMMARY | 2019-03-20 18:09 | XMS REPORT | Summary of Care ---
:1955 Author Organization [facility] Address [address] [place] [address] Care Team Providers Name Role Phone Wally Angulo Primary Care Provider Wally Angulo Insurance Hmo Bernabe Poe MD Unavailable Sophia Fisher [facility] Director Of Program Management Unavailable Reason for Visit Reason Comments Orders Recert Encounter Details Date Type Department Care Team Description 02/12/2019 Telephone [facility] Internal Wally Angulo Orders (Recert) [address] [place] [address] [facility] Carlos Woodard, [phone] [employer] [place] [address] Allergies Active Allergy Reactions Severity Noted Date Comments Aripiprazole Unknown - See comments 04/10/2014 Symptoms of tardive dyskinesia Patient states that she is currently taking medication. Quetiapine Fumarate Unknown - See comments 03/05/2014 tremors Sulfasalazine Hives 01/21/2011 documented as of this encounter (statuses as of 02/20/2019) Medications Medication Sig Dispensed Refills Start End Status Date Date MULTIPLE VITAMINS 2 pills a day 0 Active DAILY ORAL TAB fluticasone (FLONASE) Use 1 Survey[place] in 1 Bottle 2 Active 50 mcg/actuation [...] Patch 0 02/19/ Discontinued patchIndications: skin every 72 2018 Chronic pain syndrome (seventy-two) hours. HYDROcodone-acetaminop Take 1 pill by 150 tablet 0 07/15/2 08/12/ Discontinued hen (NORCO) 10-325 mg mouth every 2018 tabletIndications: hours as needed Psoriatic arthropathy, for pain, Max 6 Chronic pain syndrome daily documented as of this encounter (statuses as of 02/20/2019) Active Problems Patient Care Coordination Note Hypertension [...] drink per day for most women and natural resource manager weight men ? If I am a smoker, stop smoking ? Manage stress by identifying three ways to reduce stress ? [employer] (www.[facility]/[employer]) is an online tool that will allow me to review lab results and portions of my health record, and to communicate with healthcare providers as needed. If I do not have a [employer] account, I will discuss this with my [...] woman exam with routine gynecological exam 03/11/2015 halfway current use of opiate analgesic 03/11/2015 Personal [...] stools and was evaluated by a GI alliance consultant in [place] about 10 years ago who told her she had then inflammatory bowel disease. However, she has been basically asymptomatic since except for functional bowel symptoms Chronic pain syndrome Overview: As part of the fibromyalgia Rheumatoid arthritis Overview: ICD10 Diagnosis Term Telecommunications Line Installer Utility documented as of this encounter (statuses as of 02/20/2019) Resolved Problems Problem Noted Date Resolved Date [...] arthritis 03/18/2011 04/04/2013 Overview: ICD10 Diagnosis Term Telecommunications Line Installer Utility Encounter for long-term (current) use of [...] S/p laparoscopic cholecystectomy 09/19/2007 ICD10 Diagnosis Term Telecommunications Line Installer Utility Calculus of bile duct 09/19/2007 11/29/2007 Overview: S/p laparoscopic cholecystectomy 09/19/2007 ICD10 Diagnosis Term Telecommunications Line Installer Utility Psoriatic arthropathy 12/29/2011 Overview: On Remicade infusions. Has never received Enbrel or Humira. Rheumatism and fibrositis 10/29/2008 Overview: ICD10 Diagnosis Term Telecommunications Line Installer Utility Irritable bowel syndrome 12/29/2011 Overview: Has periods of constipation alternating with loose stools off and on. Hypothyroidism 10/05/2015 Overview: ICD10 Diagnosis Term Telecommunications Line Installer Utility Chronic pain syndrome 12/29/2011 Overview: As part of the fibromyalgia Psoriatic arthropathy 01/05/2015 documented as of this encounter (statuses as of 02/20/2019) Immunizations Name Administration Dates Next Due H1n1 [...] Medicine Ciro Villanueva MD [address] [place], [place] [address] 03/19/2019 Nurse Visit Pain Fede Smith 03/30/2019 Office Visit Pulmonary Disease Simi Veliz DO [address] [place] [phone] 04/05/2019 Office Visit Internal Medicine Wally Angulo [address] [place] [address] [phone] 04/06/2019 Office Visit Internal Medicine SusiyenyWally day [address] [place] [address] [phone] 04/16/2019 Nurse Visit Pain Medicine Rich, Erx 04/17/2019 Office Visit Infectious Disease Sebastian Alberto [address] [place] [address] [phone] Health Maintenance Due Date Last Done Comments [...] of this encounter Implants Implanted Type Area Clinical Informatics Director Device Identifier Shelf Expiration Model / Serial Date / Lot Hip HIP documented as of this encounter Results Not on filedocumented in this encounter Insurance Payer Benefit Plan / Subscriber ID Effective Dates Phone Address Type Group MEDICARE MEDICARE PART xxxxxxxxxxx [id number] [phone] [address] Medicare A & B t 2 [id number] [place] [id number] documented as of this encounter Advance Directives Type Date Recorded Patient Beader Explanation Advance Directives and Living 05/14/2014 1:59 PM Will Power of Switch Inspector 03/07/2015 2:05 PM
--- OUTSIDE RECORDS SUMMARY | 2019-03-20 18:09 | XMS REPORT | Summary of Care ---
:1955 Author Organization [facility] Address [address] [place] [address] Care Team Providers Name Role Phone Wally Angulo Primary Care Provider Wally Angulo Insurance Hmo Bernabe Poe MD Unavailable Sophia Fisher [facility] Consultants Intern Unavailable Reason for Visit Reason Comments Orders Recert Encounter Details Date Type Department Care Team Description 02/12/2019 Telephone [facility] Internal Wally Angulo Orders (Recert) [address] [place] [address] [facility] Carlos Woodard, [address] [phone] [facility] [place] [address] Allergies Active Allergy Reactions Severity [...] DAILY ORAL TAB fluticasone (FLONASE) Use 1 [place] in 1 Bottle 2 Active 50 mcg/actuation [...] drink per day for most women and telegraphic 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 If I am a smoker, stop smoking ? Manage stress by identifying three ways to reduce stress ? Owlr (www.[facility]/[employer]) is an online tool that will allow me to review lab results and portions of my health record, and to communicate with healthcare providers as needed. If I do not have a Owlr account, I will discuss this with my [...] woman exam with routine gynecological exam 03/11/2015 prison current use of opiate analgesic 03/11/2015 Personal [...] stools and was evaluated by a GI hr shared services consultant in [place] about 10 years ago who told her she had then inflammatory bowel disease. However, she has been basically asymptomatic since except for functional bowel symptoms Chronic pain syndrome Overview: As part of the fibromyalgia Rheumatoid arthritis Overview: ICD10 Diagnosis Term Shipping And Receiving Assistant Utility documented as of this encounter (statuses [...] arthritis 03/18/2011 04/04/2013 Overview: ICD10 Diagnosis Term Shipping And Receiving Assistant Utility Encounter for long-term (current) use of [...] S/p laparoscopic cholecystectomy 09/19/2007 ICD10 Diagnosis Term Shipping And Receiving Assistant Utility Calculus of bile duct 09/19/2007 11/29/2007 Overview: S/p laparoscopic cholecystectomy 09/19/2007 ICD10 Diagnosis Term Shipping And Receiving Assistant Utility Psoriatic arthropathy 12/29/2011 Overview: On Remicade infusions. Has never received Enbrel or Humira. Rheumatism and fibrositis 10/29/2008 Overview: ICD10 Diagnosis Term Shipping And Receiving Assistant Utility Irritable bowel syndrome 12/29/2011 Overview: Has periods of constipation alternating with loose stools off and on. Hypothyroidism 10/05/2015 Overview: ICD10 Diagnosis Term Shipping And Receiving Assistant Utility Chronic pain syndrome 12/29/2011 Overview: As [...] Visit Pain Medicine Ciro Villanueva MD [id number] [place], [place] [address] 03/19/2019 Nurse Visit Pain Fede Smith 03/30/2019 Office Visit Pulmonary Disease Simi Veliz DO [address] [place] [phone] 04/05/2019 Office Visit Internal Medicine Wally Angulo [address] [place] [address] [phone] 04/06/2019 Office Visit Internal Medicine SusiyenyWally day [address] [place] [address] [phone] 04/16/2019 Nurse Visit Pain Medicine Rich, Erx 04/17/2019 Office Visit Infectious Disease Sebastian Alberto [id number] [place] [address] [phone] Health Maintenance Due Date Last Done Comments [...] of this encounter Implants Implanted Type Area Corporate Concierge Device Identifier Shelf Expiration Model / Serial Date / Lot Hip HIP documented as of this encounter Results Not on filedocumented in this encounter Insurance Payer Benefit Plan / Subscriber ID Effective Dates Phone Address Type Group MEDICARE MEDICARE PART xxxxxxxxxxx [id number] [phone] [address] Medicare A & B t 2 [id number] [place] [id number] documented as of this encounter Advance Directives Type Date Recorded Patient Cafeteria Worker Explanation Advance Directives and Living 05/14/2014 1:59 PM Will Power of Jacquard Loom Heddles Tier 03/07/2015 2:05 PM
--- OUTSIDE RECORDS SUMMARY | 2019-03-20 18:10 | XMS REPORT | Summary of Care ---
:1955 Author Organization [facility] Address [address] [place] [address] Care Team Providers Name Role Phone Wally Angulo Primary Care Provider Wally Angulo Insurance Hmo Bernabe Poe MD Unavailable Sophia Fisher [facility] Licensed Mass Real Estate Appraiser Unavailable Reason for Visit Reason Comments Orders Recert Encounter Details Date Type Department Care Team Description 02/12/[address] [facility] Internal Wally Angulo Orders (Recert) [address] [place] [address] [facility] [place] Carlos Woodard, [address] [phone] [facility] [place] [address] Allergies Active Allergy Reactions Severity [...] DAILY ORAL TAB fluticasone (FLONASE) Use 1 [place] in 1 Bottle 2 Active 50 mcg/actuation [...] per day for most women and commercial construction superintendent weight men ? If I am a smoker, stop smoking ? Manage stress by identifying three ways to reduce stress ? [employer] (www.[facility]/[employer]) is an online tool that will allow me to review lab results and portions of my health record, and to communicate with healthcare providers as needed. If I do not have a [employer] account, I will discuss this with [...] woman exam with routine gynecological exam 03/11/2015 jail current use of opiate analgesic 03/11/2015 Personal [...] stools and was evaluated by a GI email production consultant in [place] about 10 years ago who told her she had then inflammatory bowel disease. However, she has been basically asymptomatic since except for functional bowel symptoms Chronic pain syndrome Overview: As part of the fibromyalgia Rheumatoid arthritis Overview: ICD10 Diagnosis Term Typo Machine Operator Utility documented as of this encounter [...] arthritis 03/18/2011 04/04/2013 Overview: ICD10 Diagnosis Term Typo Machine Operator Utility Encounter for long-term (current) use [...] S/p laparoscopic cholecystectomy 09/19/2007 ICD10 Diagnosis Term Typo Machine Operator Utility Calculus of bile duct 09/19/2007 11/29/2007 Overview: S/p laparoscopic cholecystectomy 09/19/2007 ICD10 Diagnosis Term Typo Machine Operator Utility Psoriatic arthropathy 12/29/2011 Overview: On Remicade infusions. Has never received Enbrel or Humira. Rheumatism and fibrositis 10/29/2008 Overview: ICD10 Diagnosis Term Typo Machine Operator Utility Irritable bowel syndrome 12/29/2011 Overview: Has periods of constipation alternating with loose stools off and on. Hypothyroidism 10/05/2015 Overview: ICD10 Diagnosis Term Typo Machine Operator Utility Chronic pain syndrome 12/29/2011 Overview: [...] Visit Pain Medicine Ciro Villanueva MD [address] [place], [place] [address] 03/19/2019 Nurse Visit Pain Fede Smith 03/30/2019 Office Visit Pulmonary Disease Simi Veliz DO [address] [place] [phone] 04/05/2019 Office Visit Internal Medicine Wally Angulo [address] [place] [address] [phone] 04/06/2019 Office Visit Internal Medicine SusiyenyWally day [address] [place] [address] [phone] 04/16/2019 Nurse Visit Pain Medicine Rich, Erx 04/17/2019 Office Visit Infectious Disease Sebastian Alberto [address] [place] [address] [phone] Health Maintenance Due Date Last Done Comments [...] of this encounter Implants Implanted Type Area Hatchery Helper Device Identifier Shelf Expiration Model / Serial Date / Lot Hip HIP documented as of this encounter Results Not on filedocumented in this encounter Insurance Payer Benefit Plan / Subscriber ID Effective Dates Phone Address Type Group MEDICARE MEDICARE PART xxxxxxxxxxx [id number] [phone] [address] Medicare A & B t 2 [id number] [place] [id number] documented as of this encounter Advance Directives Type Date Recorded Patient Galvanometer Assembler Explanation Advance Directives and Living 05/14/2014 1:59 PM Will Power of Electrolysis Needle Operator 03/07/2015 2:05 PM
--- OUTSIDE RECORDS SUMMARY | 2019-03-20 18:10 | XMS REPORT | Summary of Care ---
:1955 Author Organization [facility] Address [address] [place] [address] Care Team Providers Name Role Phone Wally Angulo Primary Care Provider Wally Angulo Insurance Hmo Bernabe Poe MD Unavailable Sophia Fisher [facility] Math Professor Unavailable Reason for Visit Reason Comments Orders Recert Encounter Details Date Type Department Care Team Description 02/12/2019 Telephone [facility] Internal Wally Angulo Orders (Recert) [address] [place] [address] [facility] Carlos Woodard, [address] [phone] [facility] [place] [address] Allergies Active Allergy Reactions Severity [...] DAILY ORAL TAB fluticasone (FLONASE) Use 1 [place] in 1 Bottle 2 Active 50 mcg/actuation [...] drink per day for most women and workers compensation defense attorney weight men ? If I am a smoker, stop smoking ? Manage stress by identifying three ways to reduce stress ? Skift (www.[facility]/[employer]) is an online tool that will allow me to review lab results and portions of my health record, and to communicate with healthcare providers as needed. If I do not have a Skift account, I will discuss this with my [...] stools and was evaluated by a GI oracle hrms consultant in [place] about 10 years ago who told her she had then inflammatory bowel disease. However, she has been basically asymptomatic since except for functional bowel symptoms Chronic pain syndrome Overview: As part of the fibromyalgia Rheumatoid arthritis Overview: ICD10 Diagnosis Term Hat Trimmer Utility documented as of this encounter (statuses [...] arthritis 03/18/2011 04/04/2013 Overview: ICD10 Diagnosis Term Hat Trimmer Utility Encounter for long-term (current) use of [...] S/p laparoscopic cholecystectomy 09/19/2007 ICD10 Diagnosis Term Hat Trimmer Utility Calculus of bile duct 09/19/2007 11/29/2007 Overview: S/p laparoscopic cholecystectomy 09/19/2007 ICD10 Diagnosis Term Hat Trimmer Utility Psoriatic arthropathy 12/29/2011 Overview: On Remicade infusions. Has never received Enbrel or Humira. Rheumatism and fibrositis 10/29/2008 Overview: ICD10 Diagnosis Term Hat Trimmer Utility Irritable bowel syndrome 12/29/2011 Overview: Has periods of constipation alternating with loose stools off and on. Hypothyroidism 10/05/2015 Overview: ICD10 Diagnosis Term Hat Trimmer Utility Chronic pain syndrome 12/29/2011 Overview: As [...] Pain Medicine Ciro Villanueva MD [address] [place], [place] [address] 03/19/2019 Nurse Visit Pain Fede Smith 03/30/2019 Office Visit Pulmonary Disease Simi Veliz DO [address] [place] [phone] 04/05/2019 Office Visit Internal Medicine Wally Angulo [address] [place] [address] [phone] 04/06/2019 Office Visit Internal Medicine SusiyenyWally day [address] [place] [address] [phone] 04/16/2019 Nurse Visit Pain Medicine Rich, Erx 04/17/2019 Office Visit Infectious Disease Sebastian Alberto [address] [place] [address] [phone] Health Maintenance Due Date Last Done Comments [...] of this encounter Implants Implanted Type Area Waistline Joiner Overlock Device Identifier Shelf Expiration Model / Serial Date / Lot Hip HIP documented as of this encounter Results Not on filedocumented in this encounter Insurance Payer Benefit Plan / Subscriber ID Effective Dates Phone Address Type Group MEDICARE MEDICARE PART xxxxxxxxxxx [id number] [phone] [address] Medicare A & B t 2 [id number] [place] [id number] documented as of this encounter Advance Directives Type Date Recorded Patient Enthone Solder Stripper Explanation Advance Directives and Living 05/14/2014 1:59 PM Will Power of Hr Administrative Assistant 03/07/2015 2:05 PM
--- OUTSIDE RECORDS SUMMARY | 2019-03-20 18:11 | XMS REPORT | Summary of Care ---
:1955 Author Organization [facility] Address [address] [place] [address] Care Team Providers Name Role Phone Wally Angulo Primary Care Provider Wally Angulo Insurance Hmo Bernabe Poe MD Unavailable Sophia Fisher [facility] Exercise Scientist Unavailable Encounter Details Date Type Department Care Team Description 02/16/2019 Patient Secure [facility] Internal Wally Angulo [address] [place] [address] [place] [address] , [address] [place] [address] Allergies Active Allergy Reactions Severity [...] Active ORAL TAB fluticasone (FLONASE) Use 1 [place] in each 1 Bottle 2 Active 50 [...] MOUTH ONCE DAILY 9 Hypothyroidism, unspecified type SUMATRIPTAN 25 mg TAKE [...] drink per day for most women and job honer weight men ? If I am a smoker, stop smoking ? Manage stress by identifying three ways to reduce stress ? [employer]EL (www.[facility]/[employer]) is an online tool that will allow me to review lab results and portions of my health record, and to communicate with healthcare providers as needed. 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 However, she has been basically asymptomatic since except for functional bowel symptoms Chronic pain syndrome Overview: As part of the fibromyalgia Rheumatoid arthritis Overview: ICD10 Diagnosis Term Order Clerk Utility documented as of this encounter (statuses [...] arthritis 03/18/2011 04/04/2013 Overview: ICD10 Diagnosis Term Order Clerk Utility Encounter for long-term (current) use of [...] S/p laparoscopic cholecystectomy 09/19/2007 ICD10 Diagnosis Term Order Clerk Utility Calculus of bile duct 09/19/2007 11/29/2007 Overview: S/p laparoscopic cholecystectomy 09/19/2007 ICD10 Diagnosis Term Order Clerk Utility Psoriatic arthropathy 12/29/2011 Overview: On Remicade infusions. Has never received Enbrel or Humira. Rheumatism and fibrositis 10/29/2008 Overview: ICD10 Diagnosis Term Order Clerk Utility Irritable bowel syndrome 12/29/2011 Overview: Has periods of constipation alternating with loose stools off and on. Hypothyroidism 10/05/2015 Overview: ICD10 Diagnosis Term Order Clerk Utility Chronic pain syndrome 12/29/2011 Overview: As [...] Medicine Ciro Villanueva MD [id number] [place], [place] [address] 03/19/2019 Nurse Visit Pain Medicine Rich, Erx 03/30/2019 Office Visit Pulmonary Disease Simi Veliz, DO [facility] [place] [address] [phone] 04/05/2019 Office Visit Internal Medicine Wally Angulo [address] [place], [place] [address] 04/06/2019 Office Visit Internal Medicine Wally Angulo [address] [place], [place] [address] 04/16/2019 Nurse Visit Pain Medicine Rich, Erx 04/17/2019 Office Visit Infectious Disease Sebastian Alberto [id number] [place], [place] [address] Health Maintenance Due Date Last Done Comments [...] of this encounter Implants Implanted Type Area Generator Technician Device Identifier Shelf Expiration Model / Serial Date / Lot Hip HIP documented as of this encounter Results Not on filedocumented in this encounter Insurance Payer Benefit Plan / Subscriber ID Effective Dates Phone Address Type Group MEDICARE MEDICARE PART xxxxxxxxxxx 1992-Ari [phone] [address] Medicare A & B t 2 [id number] THI CORTÉS [id number] documented as of this encounter Advance Directives Type Date Recorded Patient Home Mission Worker Explanation Advance Directives and Living 05/14/2014 1:59 PM Will Power of Dumper [employer] 03/07/2015 2:05 PM
--- OUTSIDE RECORDS SUMMARY | 2019-03-20 18:11 | XMS REPORT | Summary of Care ---
:1955 Author Organization [facility] Address [address] [place] [address] Care Team Providers Name Role Phone Wally Angulo Primary Care Provider Wally Angulo Insurance Hmo Bernabe Poe MD Unavailable Sophia Fisher [facility] Control Operator Unavailable Encounter Details Date Type Department Care Team Description 02/20/2019 Patient Secure [facility] Internal Wally Angulo [address] [place] [address] [place] [address] , [address] [place] [address] Allergies Active Allergy Reactions Severity [...] day 0 Active ORAL TAB fluticasone (FLONASE) 50 Use 1 [place] in each 1 Bottle 2 04/25/20 Active mcg/actuation nasal nostril daily. 14 spray SERTraline (ZOLOFT) 100 Take 2 tablets by 60 tablet 1 04/21/20 Active mg tablet mouth at bedtime. 16 tazarotene (TAZORAC) Apply to area(s) at 60 g 1 07/08/20 Active 0.05 % cream bedtime. For thick 16 plaques not improving with other medications. triamcinolone acetonide Apply to area(s) 2 454 g 2 10/07/19 Active 0.1 % cream (two) times daily as 17 needed (Psoriasis on trunk and extremities). mupirocin (BACTROBAN) 2 Apply to area(s) 22 g 1 12/21/19 Active % ointmentIndications: daily. 17 Bilateral great toes ulcers Mucus Clearing Device Use as directed 1 Device 0 02/08/20 Active (FLUTTER) Rebecca 17 levETIRAcetam (KEPPRA) Take 500 mg by mouth 0 Active 500 mg tablet daily. melatonin 10 mg Take by mouth at 0 Active TabIndications: Take 2 bedtime. tabs Indications: Take 2 tabs magnesium oxide 400 mg TK 1 T PO D 0 08/18/19 Active tablet 18 metoprolol tartrate 25 TK 1 T PO BID AT 6 180 tablet 3 10/29/19 Active mg tablet AM AND AT 6 PM 18 DULoxetine 30 mg capsule Take 30 mg by mouth 0 Active daily. Diclofenac Epolamine Apply to skin once 30 Patch 3 12/13/19 Active (FLECTOR) 1.3 % patch daily as needed for 18 Pain (scale 4-6). triamcinolone acetonide Apply to area(s) 2 454 g 0 12/24/19 Active 0.1 % ointment (two) times daily. 18 As needed. Avoid face, groin, axillae calcipotriene-betamethas Apply to area(s) 60 g 1 02/13/20 Active one (TACLONEX) daily. For scalp 18 0.005-0.064 % external suspension albuterol 90 Inhale 2 Puffs every 8.5 g 11 05/22/20 Active mcg/actuation inhaler 6 (six) hours as 18 needed for Wheezing or Shortness of Breath. albuterol 2.5 mg /3 mL Inhale 3 mL every 6 75 Vial 11 05/22/20 Active (0.083 %) nebulizer (six) hours as 18 solution needed for Wheezing or Shortness of Breath. sodium chloride Inhale 1 Vial 2 60 Vial 11 05/22/20 Active (HYPER-TYLER) 3.5 % Nebu (two) times daily. 18 pantoprazole 40 mg EC Take 1 tablet by 180 tablet 1 06/30/20 Active tablet mouth 2 (two) times 18 daily. ergocalciferol, vitamin Take 1 capsule by 1 capsule 3 07/26/19 Active d2, 50,000 unit mouth every 4 (four) 19 capsuleIndications: weeks. Other osteoporosis without current pathological fracture, Vitamin D deficiency, Essential hypertension, benign, Major depressive disorder, recurrent episode, moderate, Psoriatic arthritis, Psychophysiological insomnia SUCRALFATE 1 gram tablet TAKE 1 TABLET BY 120 tablet 2 08/01/19 Active MOUTH BEFORE MEALS 19 AND AT BEDTIME baclofen 10 mg tablet Take 1 tablet by 90 tablet 2 08/28/19 Active mouth 3 (three) 19 times daily. OTEZLA STARTER 10 mg 0 09/14/19 Active (4)-20 mg (4)-30 mg (47) 19 DsPk cyanocobalamin (VITAMIN 1 mL by 30 mL 0 10/10/19 Active B-12) 1,000 mcg/mL Intramuscular route 19 injectionIndications: weekly. Osteopenia of both hips pregabalin (LYRICA) 150 Take 1 capsule by 90 capsule 3 10/12/19 Active mg capsule mouth 3 (three) 19 times daily. TRAZODONE 100 mg TAKE 1 TABLET BY 30 tablet 0 10/13/19 Active tabletIndications: MOUTH AT BEDTIME 19 Depression, unspecified depression type Diclofenac Sodium Apply to area(s) 2 100 g 3 10/13/19 Active (VOLTAREN) 1 % (two) times daily. 19 gelIndications: Rheumatoid arthritis involving both hands, unspecified rheumatoid factor presence Fluticasone-Salmeterol Inhale 1 Puff every 60 Each 11 11/10/19 Active (ADVAIR DISKUS) 500-50 12 (twelve) hours. 19 mcg/dose inhalation diskIndications: Pulmonary emphysema, unspecified emphysema type fluticasone-salmeterol Inhale 2 Puffs 2 12 g 11 11/11/19 Active (ADVAIR HFA) 230-21 (two) times daily. 19 mcg/actuation inhalerIndications: Dyspnea, unspecified type celecoxib 200 mg Take 1 capsule by 30 capsule 3 11/11/19 Active capsuleIndications: mouth daily. 19 Psoriatic arthritis, Psoriasis, Chronic pain syndrome, Seizure disorder metoclopramide HCl 5 mg Take 1 tablet by 60 tablet 0 11/25/19 Active tabletIndications: mouth 2 (two) times 19 Abdominal pain, daily as needed for unspecified abdominal Nausea and Vomiting location (N/V) or Gastroesophageal reflux. busPIRone 15 mg TAKE 1 TABLET BY 90 tablet 0 11/29/19 Active tabletIndications: MOUTH 3 TIMES DAILY 19 Depression, unspecified depression type ESZOPICLONE 3 mg TAKE 1 TABLET BY 90 tablet 0 12/28/19 Active tabletIndications: MOUTH AT BEDTIME 19 Persistent insomnia NEEDED FOR INSOMNIA LISINOPRIL 10 mg tablet TAKE 2 TABLETS BY 180 tablet 0 01/11/20 Active MOUTH DAILY 19 LEVOTHYROXINE 100 mcg TAKE 1 TABLET BY 90 tablet 1 01/11/20 Active tabletIndications: MOUTH ONCE DAILY 19 Hypothyroidism, unspecified type SUMATRIPTAN 25 mg TAKE 1 TABLET BY 9 tablet 0 01/27/20 Active tabletIndications: MOUTH ONCE DAILY 19 Nonintractable headache, NEEDED FOR MIGRAINE. unspecified chronicity REPEAT IN 2HOURS IF pattern, unspecified NO RELIEF. MAX 100MG headache type IN A DAY NO MORE THAN 400MG PER MONTH AMLODIPINE 10 mg tablet TAKE 1 TABLET BY 90 tablet 1 01/27/20 Active MOUTH DAILY 19 LORAZEPAM 0.5 mg TAKE 1 TABLET BY 60 tablet 0 02/01/20 Active tabletIndications: MOUTH TWICE DAILY 19 Anxiety NEEDED FOR ANXIETY OTEZLA 30 mg TAKE 1 TABLET BY 60 tablet 0 02/07/20 Active tabletIndications: MOUTH TWICE DAILY 19 Seropositive rheumatoid arthritis FENTanyl 100 mcg/hr Apply 1 Patch to 10 Patch 0 02/20/20 Active patchIndications: skin every 72 19 Psoriatic arthropathy (seventy-two) hours. FENTanyl 25 mcg/hr Apply 1 Patch to 10 Patch 0 02/20/20 Active patchIndications: skin every 72 19 Chronic pain syndrome (seventy-two) hours. HYDROcodone-acetaminophe Take 1 pill by mouth 150 tablet 0 02/20/20 Active n (NORCO) 10-325 mg every 4 hours as 19 tabletIndications: needed for pain, Max Psoriatic arthropathy, 6 daily Chronic pain syndrome cycloSPORINE (RESTASIS) INSTILL 1 DROP IN 60 Each 1 02/21/20 Active 0.05 % dropsIndications: BOTH EYES EVERY 12 19 Keratoconjunctivitis HOURS sicca of both eyes not due to Sjogren's syndrome documented as of this encounter (statuses as [...] drink per day for most women and land reclamation specialist weight men ? If I am a smoker, stop smoking ? Manage stress by identifying three ways to reduce stress ? [employer] (www.[facility]/[place]) is an online tool that will allow me to review lab results and portions of my health record, and to communicate with healthcare providers as needed. If I do not have a [employer] account, I will discuss this with my [...] woman exam with routine gynecological exam 03/11/2015 detention current use of opiate analgesic 03/11/2015 Personal [...] by a GI construction safety consultant in [place] about 10 years ago who told her she had then inflammatory bowel disease. However, she has been basically asymptomatic since except for functional bowel symptoms Chronic pain syndrome Overview: As part of the fibromyalgia Rheumatoid arthritis Overview: ICD10 Diagnosis Term Insurance Attorney Utility documented as of this encounter (statuses [...] arthritis 03/18/2011 04/04/2013 Overview: ICD10 Diagnosis Term Insurance Attorney Utility Encounter for long-term (current) use of [...] S/p laparoscopic cholecystectomy 09/19/2007 ICD10 Diagnosis Term Insurance Attorney Utility Calculus of bile duct 09/19/2007 11/29/2007 Overview: S/p laparoscopic cholecystectomy 09/19/2007 ICD10 Diagnosis Term Insurance Attorney Utility Psoriatic arthropathy 12/29/2011 Overview: On Remicade infusions. Has never received Enbrel or Humira. Rheumatism and fibrositis 10/29/2008 Overview: ICD10 Diagnosis Term Insurance Attorney Utility Irritable bowel syndrome 12/29/2011 Overview: Has periods of constipation alternating with loose stools off and on. Hypothyroidism 10/05/2015 Overview: ICD10 Diagnosis Term Insurance Attorney Utility Chronic pain syndrome 12/29/2011 Overview: As [...] Medicine Ciro Villanueva MD [id number] [place] [address] [phone] 03/19/2019 Nurse Visit Pain Medicine Fede Villanueva 03/30/2019 Office Visit Pulmonary Disease Simi Veliz DO [address] [place] [phone] 04/05/2019 Office Visit Internal Medicine Wally Angulo [address] [place], [place] [address] 04/06/2019 Office Visit Internal Medicine Wally Angulo [address] [place], [place] [address] 04/16/2019 Nurse Visit Pain Medicine Rich, Erx 04/17/2019 Office Visit Infectious Disease Sebastian Alberto [id number] [place], [place] [address] Health Maintenance Due Date Last Done Comments [...] of this encounter Implants Implanted Type Area Cartridge Assembling Machine Adjuster Device Identifier Shelf Expiration Model / Serial Date / Lot Hip HIP documented as of this encounter Results Not on filedocumented in this encounter Insurance Payer Benefit Plan / Subscriber ID Effective Dates Phone Address Type Group MEDICARE MEDICARE PART xxxxxxxxxxx [id number] [phone] Medicare A & B t 2 [id number] THI CORTÉS [id number] documented as of this encounter Advance Directives Type Date Recorded Patient Test And Balance Engineer Explanation Advance Directives and Living 05/14/2014 1:59 PM Will Power of Speech Therapy Assistant 03/07/2015 2:05 PM
--- OUTSIDE RECORDS SUMMARY | 2019-03-20 18:11 | XMS REPORT | Summary of Care ---
:1955 Author Organization [facility] Address [address] [place] [address] Care Team Providers Name Role Phone Wally Angulo Primary Care Provider Wally Angulo Insurance Hmo Bernabe Poe MD Unavailable Sophia Fisher [facility] Solar Engineer Unavailable Encounter Details Date Type Department Care Team Description 02/20/2019 Patient [facility] Doctor Keratoconjunctivitis sicca Msg Internal Medicine- Unassigned, No of both eyes not due to [place] Name Sjogren's syndrome Primary Care [address] [address] [place], [address] [address] [place] [address] Allergies Active Allergy Reactions Severity Noted Date [...] ORAL TAB fluticasone (FLONASE) 50 Use 1 [place] in each 1 Bottle 2 04/25/20 Active [...] Vial 2 60 Vial 11 05/22/20 Active (HYPER-TYELR) 3.5 % Nebu (two) times daily. 18 [...] drink per day for most women and call taker weight men ? If I am a smoker, stop smoking ? Manage stress by identifying three ways to reduce stress ? [employer] (www.[facility]/[employer]) is an online tool that will allow me to review lab results and portions of my health record, and to communicate with healthcare providers as needed. 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 However, she has been basically asymptomatic since except for functional bowel symptoms Chronic pain syndrome Overview: As part of the fibromyalgia Rheumatoid arthritis Overview: ICD10 Diagnosis Term Product Safety Engineer Utility documented as of this encounter (statuses [...] arthritis 03/18/2011 04/04/2013 Overview: ICD10 Diagnosis Term Product Safety Engineer Utility Encounter for long-term (current) use of [...] S/p laparoscopic cholecystectomy 09/19/2007 ICD10 Diagnosis Term Product Safety Engineer Utility Calculus of bile duct 09/19/2007 11/29/2007 Overview: S/p laparoscopic cholecystectomy 09/19/2007 ICD10 Diagnosis Term Product Safety Engineer Utility Psoriatic arthropathy 12/29/2011 Overview: On Remicade infusions. Has never received Enbrel or Humira. Rheumatism and fibrositis 10/29/2008 Overview: ICD10 Diagnosis Term Product Safety Engineer Utility Irritable bowel syndrome 12/29/2011 Overview: Has periods of constipation alternating with loose stools off and on. Hypothyroidism 10/05/2015 Overview: ICD10 Diagnosis Term Product Safety Engineer Utility Chronic pain syndrome 12/29/2011 Overview: As [...] Medicine Ciro Villanueva MD [id number] [place] [address] [phone] 03/19/2019 Nurse Visit Pain Medicine Fede Villanueva 03/30/2019 Office Visit Pulmonary Disease Simi Veliz DO [address] [place] [phone] 04/05/2019 Office Visit Internal Medicine Wally Angulo [address] [place] [address] [phone] 04/06/2019 Office Visit Internal Medicine Wally Angulo [address] [place] [address] [phone] 04/16/2019 Nurse Visit Pain Medicine Rangel Villanuevax 04/17/2019 Office Visit Infectious Disease Sebastian Alberto [id number] [place], [place] [phone] Health Maintenance Due Date Last Done Comments [...] of this encounter Implants Implanted Type Area Manager Pharmaceutical Device Identifier Shelf Expiration Model / Serial Date / Lot Hip HIP documented as of this encounter Results Not on filedocumented in this encounter Visit Diagnoses Diagnosis Keratoconjunctivitis sicca of both eyes not due to Sjogren's syndrome documented in this encounter Insurance Payer Benefit Plan / Subscriber ID Effective Dates Phone Address Type Group MEDICARE MEDICARE PART xxxxxxxxxxx [id number] [phone] [address] [facility] Medicare A & B t 2 [id number] THI CORTÉS [id number] documented as of this encounter Advance Directives Type Date Recorded Patient Conservation Assistant Explanation Advance Directives and Living 05/14/2014 1:59 PM Will Power of Supervisor Payroll 03/07/2015 2:05 PM
--- OUTSIDE RECORDS SUMMARY | 2019-03-20 18:12 | XMS REPORT | Summary of Care ---
:[address] [facility] Address [address] [place] [address] Care Team Providers Name Role Phone Wally Angulo Primary Care Provider Wally Angulo Insurance Hmo Bernabe Poe MD Unavailable Sophia Fisher [facility] Ballast Cleaning Machine Operator Unavailable Encounter Details Date Type Department Care Team Description 02/20/2019 Patient Secure [facility] Internal Wally Angulo [address] [place] [address] [place] [address] , [address] [place] [address] Allergies Active Allergy Reactions Severity [...] ORAL TAB fluticasone (FLONASE) 50 Use 1 [place] in each 1 Bottle 2 04/25/20 Active [...] drink per day for most women and opto mechanical technician weight men ? If I am a smoker, stop smoking ? Manage stress by identifying three ways to reduce stress ? [employer] (www.[facility]/[employer]) is an online tool that will allow me to review lab results and portions of my health record, and to communicate with healthcare providers as needed. If I do not have a [employer] account, I will discuss this with my [...] woman exam with routine gynecological exam 03/11/2015 custodial current use of opiate analgesic 03/11/2015 Personal [...] and was evaluated by a GI oracle fusion consultant in [place] about 10 years ago who told her she had then inflammatory bowel disease. However, she has been basically asymptomatic since except for functional bowel symptoms Chronic pain syndrome Overview: As part of the fibromyalgia Rheumatoid arthritis Overview: ICD10 Diagnosis Term Account Resolution Specialist Utility documented as of this encounter [...] arthritis 03/18/2011 04/04/2013 Overview: ICD10 Diagnosis Term Account Resolution Specialist Utility Encounter for long-term (current) use [...] S/p laparoscopic cholecystectomy 09/19/2007 ICD10 Diagnosis Term Account Resolution Specialist Utility Calculus of bile duct 09/19/2007 11/29/2007 Overview: S/p laparoscopic cholecystectomy 09/19/2007 ICD10 Diagnosis Term Account Resolution Specialist Utility Psoriatic arthropathy 12/29/2011 Overview: On Remicade infusions. Has never received Enbrel or Humira. Rheumatism and fibrositis 10/29/2008 Overview: ICD10 Diagnosis Term Account Resolution Specialist Utility Irritable bowel syndrome 12/29/2011 Overview: Has periods of constipation alternating with loose stools off and on. Hypothyroidism 10/05/2015 Overview: ICD10 Diagnosis Term Account Resolution Specialist Utility Chronic pain syndrome 12/29/2011 Overview: [...] Medicine Ciro Villanueva MD [id number] [place] [address] [phone] 03/19/2019 Nurse Visit Pain Medicine Fede Villanueva 03/30/2019 Office Visit Pulmonary Disease Simi Veliz DO [address] [place] [phone] 04/05/2019 Office Visit Internal Medicine Wally Angulo [address] [place], [place] [address] 04/06/2019 Office Visit Internal Medicine Wally Angulo [address] [place], [place] [address] 04/16/2019 Nurse Visit Pain Medicine Rich, Erx 04/17/2019 Office Visit Infectious Disease Sebastian Alberto [id number] [place], [place] [address] Health Maintenance Due Date Last Done Comments [...] of this encounter Implants Implanted Type Area Casing Builder Device Identifier Shelf Expiration Model / Serial Date / Lot Hip HIP documented as of this encounter Results Not on filedocumented in this encounter Insurance Payer Benefit Plan / Subscriber ID Effective Dates Phone Address Type Group MEDICARE MEDICARE PART xxxxxxxxxxx [id number] [phone] Medicare A & B t 2 [id number] THI C[place] [id number] documented as of this encounter Advance Directives Type Date Recorded Patient Host/Hostess Explanation Advance Directives and Living 05/14/2014 1:59 PM Will Power of Chiropractic Teacher 03/07/2015 2:05 PM
--- OUTSIDE RECORDS SUMMARY | 2019-03-20 18:12 | XMS REPORT | Summary of Care ---
:1955 Author Organization [facility] Address [address] [place] [address] Care Team Providers Name Role Phone Wally Angulo Primary Care Provider Wally Angulo Insurance Hmo Bernabe Poe MD Unavailable Sophia Fisher [facility] Drum Sealer Unavailable Encounter Details Date Type Department Care Team Description 02/19/2019 Patient Secure [facility] Internal Doctor Unassigned, [facility] [place] [facility] [address] [place] [address] 400 [facility], [place] [address] [place] [address] [phone] Allergies Active Allergy Reactions Severity Noted Date [...] Active ORAL TAB fluticasone (FLONASE) Use 1 [place] in each 1 Bottle 2 Active 50 [...] MOUTH TWICE DAILY 9 Seropositive rheumatoid arthritis FENTanyl 100 mcg/hr Apply [...] Psoriatic arthropathy, 6 daily Chronic pain syndrome documented as of this encounter (statuses [...] drink per day for most women and accessioner weight men ? If I am a smoker, stop smoking ? Manage stress by identifying three ways to reduce stress ? Uniiverse (www.[facility]/RentMineOnline) is an online tool that will allow me to review lab results and portions of my health record, and to communicate with healthcare providers as needed. If I do not have a Uniiverse account, I will discuss this with my [...] woman exam with routine gynecological exam 03/11/2015 senior living current use of opiate analgesic 03/11/2015 Personal [...] stools and was evaluated by a GI customer sales consultant in [place] about 10 years ago who told her she had then inflammatory bowel disease. However, she has been basically asymptomatic since except for functional bowel symptoms Chronic pain syndrome Overview: As part of the fibromyalgia Rheumatoid arthritis Overview: ICD10 Diagnosis Term Cooler Supervisor Utility documented as of this encounter (statuses [...] arthritis 03/18/2011 04/04/2013 Overview: ICD10 Diagnosis Term Cooler Supervisor Utility Encounter for long-term (current) use of [...] S/p laparoscopic cholecystectomy 09/19/2007 ICD10 Diagnosis Term Cooler Supervisor Utility Calculus of bile duct 09/19/2007 11/29/2007 Overview: S/p laparoscopic cholecystectomy 09/19/2007 ICD10 Diagnosis Term Cooler Supervisor Utility Psoriatic arthropathy 12/29/2011 Overview: On Remicade infusions. Has never received Enbrel or Humira. Rheumatism and fibrositis 10/29/2008 Overview: ICD10 Diagnosis Term Cooler Supervisor Utility Irritable bowel syndrome 12/29/2011 Overview: Has periods of constipation alternating with loose stools off and on. Hypothyroidism 10/05/2015 Overview: ICD10 Diagnosis Term Cooler Supervisor Utility Chronic pain syndrome 12/29/2011 Overview: As [...] Medicine Ciro Villanueva MD [id number] [place] [address] [phone] 03/19/2019 Nurse Visit Pain Fede Smith 03/30/2019 Office Visit Pulmonary Disease Simi Veliz DO [address] [place] [phone] 04/05/2019 Office Visit Internal Medicine Wally Angulo [address] [place] [address] [phone] 04/06/2019 Office Visit Internal Medicine Wally Angulo [address] [place] [address] [phone] 04/16/2019 Nurse Visit Pain Medicine Fede Villanueva 04/17/2019 Office Visit Infectious Disease Sebastian Alberto [id number] [place] [address] [phone] Health Maintenance Due Date Last Done Comments [...] of this encounter Implants Implanted Type Area Service Promoter Salesperson Device Identifier Shelf Expiration Model / Serial Date / Lot Hip HIP documented as of this encounter Results Not on filedocumented in this encounter Insurance Payer Benefit Plan / Subscriber ID Effective Dates Phone Address Type Group MEDICARE MEDICARE PART xxxxxxxxxxx 1992-[place] [phone] [address] Medicare A & B t 2 [id number] THI CORTÉS [id number] documented as of this encounter Advance Directives Type Date Recorded Patient Electric Blanket Wirer Explanation Advance Directives and Living 05/14/2014 1:59 PM Will Power of Forest Economics Professor 03/07/2015 2:05 PM
--- OUTSIDE RECORDS SUMMARY | 2019-03-20 18:13 | XMS REPORT | Summary of Care ---
:1955 Author Organization [facility] Address [address] [place] [address] Care Team Providers Name Role Phone Wally Angulo Primary Care Provider Wally Angulo Insurance Hmo Bernabe Poe MD Unavailable Sophia Fisher [facility] Machine Bunch Maker Unavailable Reason for Visit Reason Comments Orders Recert Encounter Details Date Type Department Care Team Description 02/12/2019 Telephone [facility] Internal Wally Angulo Orders (Recert) [address] [place] [address] [facility] Carlos Woodard, [address] [phone] [facility] [place] [phone] Allergies Active Allergy Reactions Severity Noted Date Comments Aripiprazole Unknown - See comments 04/10/2014 Symptoms of tardive dyskinesia Patient states that she is currently taking medication. Quetiapine Fumarate Unknown - See comments 03/05/2014 tremors Sulfasalazine Hives 01/21/2011 documented as of this encounter (statuses as of 02/21/2019) Medications Medication Sig Dispensed Refills Start End Status Date Date MULTIPLE VITAMINS 2 pills a day 0 Active DAILY ORAL TAB fluticasone (FLONASE) Use 1 [place] in 1 Bottle 2 Active 50 mcg/actuation [...] tablet 1 Active tablet MOUTH DAILY 019 OTEZLA 30 mg TAKE 1 TABLET BY [...] pain, Max 6 Chronic pain syndrome daily LORAZEPAM 0.5 mg TAKE 1 TABLET BY 60 tablet 0 2 tabletIndications: MOUTH TWICE DAILY 019 2018 Anxiety NEEDED FOR ANXIETY documented as of this encounter (statuses as of 02/21/2019) Active Problems Patient Care Coordination Note Hypertension [...] drink per day for most women and chief of field operations weight men ? If I am a smoker, stop smoking ? Manage stress by identifying three ways to reduce stress ? Hantele (www.[email or web address]/EZ4U) is an online tool that will allow me to review lab results and portions of my health record, and to communicate with healthcare providers as needed. If I do not have a Hantele account, I will discuss this with my [...] woman exam with routine gynecological exam 03/11/2015 USP current use of opiate analgesic 03/11/2015 Personal [...] stools and was evaluated by a GI forestry consultant in [place] about 10 years ago who told her she had then inflammatory bowel disease. However, she has been basically asymptomatic since except for functional bowel symptoms Chronic pain syndrome Overview: As part of the fibromyalgia Rheumatoid arthritis Overview: ICD10 Diagnosis Term Seafood And Service Meat Manager Utility documented as of this encounter (statuses as of 02/21/2019) Resolved Problems Problem Noted Date Resolved Date [...] arthritis 03/18/2011 04/04/2013 Overview: ICD10 Diagnosis Term Seafood And Service Meat Manager Utility Encounter for long-term (current) use of [...] S/p laparoscopic cholecystectomy 09/19/2007 ICD10 Diagnosis Term Seafood And Service Meat Manager Utility Calculus of bile duct 09/19/2007 11/29/2007 Overview: S/p laparoscopic cholecystectomy 09/19/2007 ICD10 Diagnosis Term Seafood And Service Meat Manager Utility Psoriatic arthropathy 12/29/2011 Overview: On Remicade infusions. Has never received Enbrel or Humira. Rheumatism and fibrositis 10/29/2008 Overview: ICD10 Diagnosis Term Seafood And Service Meat Manager Utility Irritable bowel syndrome 12/29/2011 Overview: Has periods of constipation alternating with loose stools off and on. Hypothyroidism 10/05/2015 Overview: ICD10 Diagnosis Term Seafood And Service Meat Manager Utility Chronic pain syndrome 12/29/2011 Overview: As part of the fibromyalgia Psoriatic arthropathy 01/05/2015 documented as of this encounter (statuses as of 02/21/2019) Immunizations Name Administration Dates Next Due H1n1 [...] Medicine Ciro Villanueva MD [id number] [place] [address] [phone] 03/19/2019 Nurse Visit Pain Medicine Fede Villanueva 03/30/2019 Office Visit Pulmonary Disease Simi Veliz DO [address] [place] [phone] 04/05/2019 Office Visit Internal Medicine Wally Angulo [address] [place] [address] [phone] 04/06/2019 Office Visit Internal Medicine Wally Angulo [address] [place] [address] [phone] 04/16/2019 Nurse Visit Pain Medicine Rangel Villanuevax 04/17/2019 Office Visit Infectious Disease Dolly Sebastian Larry [id number] [place] [address] [phone] Health Maintenance Due Date Last Done Comments [...] of this encounter Implants Implanted Type Area Real Estate Accountant Device Identifier Shelf Expiration Model / Serial Date / Lot Hip HIP documented as of this encounter Results Not on filedocumented in this encounter Insurance Payer Benefit Plan / Subscriber ID Effective Dates Phone Address Type Group MEDICARE MEDICARE PART xxxxxxxxxxx 1992-[place] [phone] [address] Medicare A & B t 2 [id number] THI CORTÉS [id number] documented as of this encounter Advance Directives Type Date Recorded Patient Records Tech Explanation Advance Directives and Living 05/14/2014 1:59 PM Will Power of Digital Imaging Specialist 03/07/2015 2:05 PM
--- OUTSIDE RECORDS SUMMARY | 2019-03-20 18:13 | XMS REPORT | Summary of Care ---
:1955 Author Organization [facility] Address [address] [place] [address] Care Team Providers Name Role Phone Wally Angulo Primary Care Provider Wally Angulo Insurance Hmo Bernabe Poe MD Unavailable Sophia Fisher [facility] Detention Deputy Unavailable Encounter Details Date Type Department Care Team Description 02/21/2019 Patient Secure [facility] Internal Doctor Unassigned, [facility] [place] [facility] [address] [place] [address] 400 [facility] [place], [place] [address] [place] [address] [phone] Allergies Active Allergy Reactions Severity Noted Date [...] ORAL TAB fluticasone (FLONASE) 50 Use 1 [place] in each 1 Bottle 2 04/25/20 Active [...] tablet 1 01/27/20 Active MOUTH DAILY 19 OTEZLA 30 mg TAKE 1 TABLET BY [...] (RESTASIS) INSTILL 1 DROP IN 60 Each 02/21/20 Active 0.05 % dropsIndications: BOTH EYES [...] drink per day for most women and supervisor wet room weight men ? If I am a smoker, stop smoking ? Manage stress by identifying three ways to reduce stress ? Squirro (www.[facility]/Uruut) is an online tool that will allow me to review lab results and portions of my health record, and to communicate with healthcare providers as needed. 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 However, she has been basically asymptomatic since except for functional bowel symptoms Chronic pain syndrome Overview: As part of the fibromyalgia Rheumatoid arthritis Overview: ICD10 Diagnosis Term Lathe Spotter Utility documented as of this encounter (statuses [...] arthritis 03/18/2011 04/04/2013 Overview: ICD10 Diagnosis Term Lathe Spotter Utility Encounter for long-term (current) use of [...] S/p laparoscopic cholecystectomy 09/19/2007 ICD10 Diagnosis Term Lathe Spotter Utility Calculus of bile duct 09/19/2007 11/29/2007 Overview: S/p laparoscopic cholecystectomy 09/19/2007 ICD10 Diagnosis Term Lathe Spotter Utility Psoriatic arthropathy 12/29/2011 Overview: On Remicade infusions. Has never received Enbrel or Humira. Rheumatism and fibrositis 10/29/2008 Overview: ICD10 Diagnosis Term Lathe Spotter Utility Irritable bowel syndrome 12/29/2011 Overview: Has periods of constipation alternating with loose stools off and on. Hypothyroidism 10/05/2015 Overview: ICD10 Diagnosis Term Lathe Spotter Utility Chronic pain syndrome 12/29/2011 Overview: As [...] Visit Pain Medicine Ciro Villanueva MD [id number] [place] [address] [phone] 03/19/2019 Nurse Visit Pain Medicine Fede Villanueva 03/30/2019 Office Visit Pulmonary Disease Simi Veliz DO [address] [place] [phone] 04/05/2019 Office Visit Internal Medicine Wally Angulo [address] [place] [address] [phone] 04/06/2019 Office Visit Internal Medicine Wally Angulo [address] [place], [place] [address] 04/16/2019 Nurse Visit Pain Medicine Fede Villanueva 04/17/2019 Office Visit Infectious Disease Sebastian Alberto [id number] [place], [place] [address] Health Maintenance Due Date Last Done Comments [...] of this encounter Implants Implanted Type Area Insurance Defense Paralegal Device Identifier Shelf Expiration Model / Serial Date / Lot Hip HIP documented as of this encounter Results Not on filedocumented in this encounter Insurance Payer Benefit Plan / Subscriber ID Effective Dates Phone Address Type Group MEDICARE MEDICARE PART xxxxxxxxxxx [id number] [address] Medicare A & B t 2 [id number] THI CORTÉS [id number] documented as of this encounter Advance Directives Type Date Recorded Patient Occupational Medicine Specialist Explanation Advance Directives and Living 05/14/2014 1:59 PM Will Power of Oyster Harvester 03/07/2015 2:05 PM
--- OUTSIDE RECORDS SUMMARY | 2019-03-20 18:13 | XMS REPORT | Summary of Care ---
:1955 Author Organization [facility] Address [address] [place] [address] Care Team Providers Name Role Phone Wally Angulo Primary Care Provider Wally Angulo Insurance Hmo Bernabe Poe MD Unavailable Sophia Fisher [facility] Director Shopper Marketing Unavailable Encounter Details Date Type Department Care Team Description 02/19/2019 Patient Secure [facility] Internal Doctor Unassigned, [facility] [place] [facility] [address] [place] [address] 400 [facility], [place] [address] [place] [phone] Allergies Active Allergy Reactions Severity Noted Date [...] Active ORAL TAB fluticasone (FLONASE) Use 1 [place] in each 1 Bottle 2 Active 50 [...] 90 tablet 1 Active MOUTH DAILY 9 OTEZLA 30 mg TAKE 1 TABLET BY [...] drink per day for most women and radio program director weight men ? If I am a smoker, stop smoking ? Manage stress by identifying three ways to reduce stress ? Domainex (www.[facility]/[employer]) is an online tool that will allow me to review lab results and portions of my health record, and to communicate with healthcare providers as needed. If I do not have a Domainex account, I will discuss this with my [...] woman exam with routine gynecological exam 03/11/2015 long-term current use of opiate analgesic 03/11/2015 Personal [...] stools and was evaluated by a GI obiee consultant in [place] about 10 years ago who told her she had then inflammatory bowel disease. However, she has been basically asymptomatic since except for functional bowel symptoms Chronic pain syndrome Overview: As part of the fibromyalgia Rheumatoid arthritis Overview: ICD10 Diagnosis Term Crm System Administrator Utility documented as of this encounter (statuses [...] arthritis 03/18/2011 04/04/2013 Overview: ICD10 Diagnosis Term Crm System Administrator Utility Encounter for long-term (current) use of [...] S/p laparoscopic cholecystectomy 09/19/2007 ICD10 Diagnosis Term Crm System Administrator Utility Calculus of bile duct 09/19/2007 11/29/2007 Overview: S/p laparoscopic cholecystectomy 09/19/2007 ICD10 Diagnosis Term Crm System Administrator Utility Psoriatic arthropathy 12/29/2011 Overview: On Remicade infusions. Has never received Enbrel or Humira. Rheumatism and fibrositis 10/29/2008 Overview: ICD10 Diagnosis Term Crm System Administrator Utility Irritable bowel syndrome 12/29/2011 Overview: Has periods of constipation alternating with loose stools off and on. Hypothyroidism 10/05/2015 Overview: ICD10 Diagnosis Term Crm System Administrator Utility Chronic pain syndrome 12/29/2011 Overview: As [...] Visit Pain Medicine Ciro Villanueva MD [id number] [place], [place] [phone] 03/19/2019 Nurse Visit Pain Fede Smith 03/30/2019 Office Visit Pulmonary Disease Simi Veliz, DO [address] [place] [address] [phone] 04/05/2019 Office Visit Internal Medicine Wally Angulo [address] [place], [place] [address] 04/06/2019 Office Visit Internal Medicine Wally Angulo [address] [place], [place] [phone] 04/16/2019 Nurse Visit Pain Medicine Doroxann, Erx 04/17/2019 Office Visit Infectious Disease Sebastian Alberto [address] [facility] [id number] [place], [place] [phone] Health Maintenance Due Date Last Done Comments [...] of this encounter Implants Implanted Type Area Door Paneler Device Identifier Shelf Expiration Model / Serial Date / Lot Hip HIP documented as of this encounter Results Not on filedocumented in this encounter Insurance Payer Benefit Plan / Subscriber ID Effective Dates Phone Address Type Group MEDICARE MEDICARE PART xxxxxxxxxxx 1992-[place] [phone] [address] Medicare A & B t 2 [id number] THI CORTÉS [id number] documented as of this encounter Advance Directives Type Date Recorded Patient Desk Assistant Explanation Advance Directives and Living 05/14/2014 1:59 PM Will Power of Pigs Feet Finisher 03/07/2015 2:05 PM
--- OUTSIDE RECORDS SUMMARY | 2019-03-20 18:14 | XMS REPORT | Summary of Care ---
:1955 Author Organization [facility] Address [address] [place] [address] Care Team Providers Name Role Phone Wally Angulo Primary Care Provider Wally Angulo Insurance Hmo Bernabe Poe MD Unavailable Sophia Fisher [facility] Construction Scheduler Unavailable Encounter Details Date Type Department Care Team Description 02/23/2019 Patient Secure [facility] Internal Wally Angulo [address] [place] [address] [place] [address] , [address] [place] [address] Allergies Active Allergy Reactions Severity Noted Date Comments Aripiprazole Unknown - See comments 04/10/2014 Symptoms of tardive dyskinesia Patient states that she is currently taking medication. Quetiapine Fumarate Unknown - See comments 03/05/2014 tremors Sulfasalazine Hives 01/21/2011 documented as of this encounter (statuses as of 02/23/2019) Medications Medication Sig Dispensed Refills Start End Status Date Date MULTIPLE VITAMINS DAILY 2 pills a day 0 Active ORAL TAB fluticasone (FLONASE) 50 Use 1 [place] in each 1 Bottle 2 04/25/20 Active [...] as of this encounter (statuses as of 02/23/2019) Active Problems Patient Care Coordination Note Hypertension [...] drink per day for most women and fig washer weight men ? If I am a smoker, stop smoking ? Manage stress by identifying three ways to reduce stress ? Recommendo (www.[facility]/mobiDEOS) is an online tool that will allow me to review lab results and portions of my health record, and to communicate with healthcare providers as needed. 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 However, she has been basically asymptomatic since except for functional bowel symptoms Chronic pain syndrome Overview: As part of the fibromyalgia Rheumatoid arthritis Overview: ICD10 Diagnosis Term Manager Portable Utility documented as of this encounter (statuses as of 02/23/2019) Resolved Problems Problem Noted Date Resolved Date [...] arthritis 03/18/2011 04/04/2013 Overview: ICD10 Diagnosis Term Manager Portable Utility Encounter for long-term (current) use of [...] S/p laparoscopic cholecystectomy 09/19/2007 ICD10 Diagnosis Term Manager Portable Utility Calculus of bile duct 09/19/2007 11/29/2007 Overview: S/p laparoscopic cholecystectomy 09/19/2007 ICD10 Diagnosis Term Manager Portable Utility Psoriatic arthropathy 12/29/2011 Overview: On Remicade infusions. Has never received Enbrel or Humira. Rheumatism and fibrositis 10/29/2008 Overview: ICD10 Diagnosis Term Manager Portable Utility Irritable bowel syndrome 12/29/2011 Overview: Has periods of constipation alternating with loose stools off and on. Hypothyroidism 10/05/2015 Overview: ICD10 Diagnosis Term Manager Portable Utility Chronic pain syndrome 12/29/2011 Overview: As part of the fibromyalgia Psoriatic arthropathy 01/05/2015 documented as of this encounter (statuses as of 02/23/2019) Immunizations Name Administration Dates Next Due H1n1 [...] Visit Pain Medicine Ciro Villanueva MD [id number] [place], [place] [phone] 03/19/2019 Nurse Visit Pain Fede Smith 03/30/2019 Office Visit Pulmonary Disease Simi Veliz DO [address] [place] [phone] 04/05/2019 Office Visit Internal Medicine Wally Angulo [address] [place] [address] [phone] 04/06/2019 Office Visit Internal Medicine RoshniWally day [address] [place], [place] [address] 04/16/2019 Nurse Visit Pain Medicine Rich Erx 04/17/2019 Office Visit Infectious Disease DollySebastian lazaro [id number] [place], [place] [address] Health Maintenance Due Date Last Done Comments Zoster Recombinant Vaccine 08/05/2010 06/10/2010 (SHINGRIX) (2 of 3) INFLUENZA VACCINE (#1) 2019 04/11/2018, 04/15/2017, 04/24/2014, Additional history exists MAMMOGRAM 05/30/2019 05/30/2018, 04/15/2017, [...] of this encounter Implants Implanted Type Area Facility Manager Histology Device Identifier Shelf Expiration Model / Serial Date / Lot Hip HIP documented as of this encounter Results Not on filedocumented in this encounter Insurance Payer Benefit Plan / Subscriber ID Effective Dates Phone Address Type Group MEDICARE MEDICARE PART xxxxxxxxxxx 1992-[place] [phone] [address] Medicare A & B t 2 [id number] THI CORTÉS [id number] documented as of this encounter Advance Directives Type Date Recorded Patient Volunteer Firefighter Explanation Advance Directives and Living 05/14/2014 1:59 PM Will Power of Pediatric Social Worker 03/07/2015 2:05 PM
--- OUTSIDE RECORDS SUMMARY | 2019-03-20 18:14 | XMS REPORT | Summary of Care ---
:1955 Author Organization [facility] Address [address] [place] [address] Care Team Providers Name Role Phone Wally Angulo Primary Care Provider Wally Angulo Insurance Hmo Bernabe Poe MD Unavailable Sophia Fisher [employer] Research Associate Policy Unavailable Encounter Details Date Type Department Care Team Description 01/31/2019 Patient Secure [facility] Infectious Dolly, Sebastian S Diseases- [address] NH[address] [place] [address] [place] [address], [place] [address] Allergies Active Allergy Reactions Severity [...] DAILY ORAL TAB fluticasone (FLONASE) Use 1 Sunflower in 1 Bottle 2 Active 50 mcg/actuation [...] tablet 1 Active tablet MOUTH DAILY 019 FENTanyl 100 mcg/hr Apply 1 Patch to 10 Patch 0 02/19/ Discontinued patchIndications: skin every 2018 Psoriatic arthropathy (seventy-two) hours. FENTanyl 25 mcg/hr Apply 1 Patch to 10 Patch 0 02/19/ Discontinued patchIndications: skin every 2018 Chronic pain syndrome (seventy-two) hours. HYDROcodone-acetaminop Take 1 pill by 150 tablet 0 02/19/ Discontinued hen (NORCO) 10-325 mg mouth every 4 2018 tabletIndications: hours as needed Psoriatic arthropathy, [...] drink per day for most women and hawk missile air defense artillery weight men ? If I am a smoker, stop smoking ? Manage stress by identifying three ways to reduce stress ? [employer] (www.[facility]/[employer]In) is an online tool that will allow me to review lab results and portions of my health record, and to communicate with healthcare providers as needed. 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 However, she has been basically asymptomatic since except for functional bowel symptoms Chronic pain syndrome Overview: As part of the fibromyalgia Rheumatoid arthritis Overview: ICD10 Diagnosis Term Senior Loss Control Specialist Utility documented as of this encounter [...] arthritis 03/18/2011 04/04/2013 Overview: ICD10 Diagnosis Term Senior Loss Control Specialist Utility Encounter for long-term (current) use [...] S/p laparoscopic cholecystectomy 09/19/2007 ICD10 Diagnosis Term Senior Loss Control Specialist Utility Calculus of bile duct 09/19/2007 11/29/2007 Overview: S/p laparoscopic cholecystectomy 09/19/2007 ICD10 Diagnosis Term Senior Loss Control Specialist Utility Psoriatic arthropathy 12/29/2011 Overview: On Remicade infusions. Has never received Enbrel or Humira. Rheumatism and fibrositis 10/29/2008 Overview: ICD10 Diagnosis Term Senior Loss Control Specialist Utility Irritable bowel syndrome 12/29/2011 Overview: Has periods of constipation alternating with loose stools off and on. Hypothyroidism 10/05/2015 Overview: ICD10 Diagnosis Term Senior Loss Control Specialist Utility Chronic pain syndrome 12/29/2011 Overview: [...] Medicine Ciro Villanueva MD [address] [facility] [id number] [place], [place] [address] 03/19/2019 Nurse Visit Pain Fede Smith 03/30/2019 Office Visit Pulmonary Disease Simi Veliz, DO [address] [place] [address] [phone] 04/05/2019 Office Visit Internal Medicine Wally Angulo [address] [place] [address] [phone] 04/06/2019 Office Visit Internal Medicine Wally Angulo [address] [place], [place] [address] 04/16/2019 Nurse Visit Pain Medicine Rich Erx 04/17/2019 Office Visit Infectious Disease Sebastian Alberto [address] [facility] [id number] [place], [place] [address] Health Maintenance Due Date Last Done Comments [...] of this encounter Implants Implanted Type Area Electric Crane Operator Device Identifier Shelf Expiration Model / Serial Date / Lot Hip HIP documented as of this encounter Results Not on filedocumented in this encounter Insurance Payer Benefit Plan / Subscriber ID Effective Dates Phone Address Type Group MEDICARE MEDICARE PART xxxxxxxxxxx 1992-[place] [phone] [address] Medicare A & B t 2 [id number] THI CORTÉS [id number] documented as of this encounter Advance Directives Type Date Recorded Patient Engineering Design Manager Explanation Advance Directives and Living 05/14/2014 1:59 PM Will Power of Business Services Associate 03/07/2015 2:05 PM
--- OUTSIDE RECORDS SUMMARY | 2019-03-20 18:15 | XMS REPORT | Summary of Care ---
:1955 Author Organization [facility] - [facility] Address [address] [place] [address] Care Team Providers Name Role Phone Wally Angulo Primary Care Provider Wally Angulo Insurance Hmo Bernabe Poe MD Unavailable Sophia Fisher [facility] Multi Needle Machine Operator Unavailable Encounter Details Date Type Department Care Team Description 02/22/2019 Orders Only [facility] Doctor Unassigned, No [address] [facility] [place] [facility] [place] [address] [address] [place] [address] Allergies Active Allergy Reactions Severity Noted Date [...] ORAL TAB fluticasone (FLONASE) 50 Use 1 [place] in each 1 Bottle 2 04/25/20 Active [...] drink per day for most women and biofuels product manager weight men ? If I am a smoker, stop smoking ? Manage stress by identifying three ways to reduce stress ? [employer] (www.[facility]/Rainbow) is an online tool that will allow me to review lab results and portions of my health record, and to communicate with healthcare providers as needed. If I do not have a [employer] account, I will discuss this with my [...] stools and was evaluated by a GI ent consultant in [place] about 10 years ago who told her she had then inflammatory bowel disease. However, she has been basically asymptomatic since except for functional bowel symptoms Chronic pain syndrome Overview: As part of the fibromyalgia Rheumatoid arthritis Overview: ICD10 Diagnosis Term Cover Seamer Utility documented as of this encounter (statuses [...] arthritis 03/18/2011 04/04/2013 Overview: ICD10 Diagnosis Term Cover Seamer Utility Encounter for long-term (current) use of [...] S/p laparoscopic cholecystectomy 09/19/2007 ICD10 Diagnosis Term Cover Seamer Utility Calculus of bile duct 09/19/2007 11/29/2007 Overview: S/p laparoscopic cholecystectomy 09/19/2007 ICD10 Diagnosis Term Cover Seamer Utility Psoriatic arthropathy 12/29/2011 Overview: On Remicade infusions. Has never received Enbrel or Humira. Rheumatism and fibrositis 10/29/2008 Overview: ICD10 Diagnosis Term Cover Seamer Utility Irritable bowel syndrome 12/29/2011 Overview: Has periods of constipation alternating with loose stools off and on. Hypothyroidism 10/05/2015 Overview: ICD10 Diagnosis Term Cover Seamer Utility Chronic pain syndrome 12/29/2011 Overview: As [...] Visit Pain Medicine Ciro Villanueva MD [address] [facility] [id number] [place], [place] [address] 03/19/2019 Nurse Visit Pain Fede Smith 03/30/2019 Office Visit Pulmonary Disease Simi Veliz DO [address] [place] [address] 04/05/2019 Office Visit Internal Medicine Wally Angulo [address] [place] [address] [phone] 04/06/2019 Office Visit Internal Medicine Wally Angulo [address] [place] [address] [phone] 04/16/2019 Nurse Visit Pain Medicine Fede Villanueva 04/17/2019 Office Visit Infectious Disease Sebastian Alberto [id number] [place] [address] [phone] Health Maintenance Due Date Last Done Comments [...] of this encounter Implants Implanted Type Area Clay Dry Press Operator Device Identifier Shelf Expiration Model / Serial Date / Lot Hip HIP documented as of this encounter Procedures Procedure Name Priority Date/Time Associated Diagnosis Comments HOME HEALTH - OTHER Routine 02/22/2019 12:01 AM CDT documented in this encounter Results Not on filedocumented in this encounter Insurance Payer Benefit Plan / Subscriber ID Effective Dates Phone Address Type Group MEDICARE MEDICARE PART xxxxxxxxxxx 1992-[place] [phone] [address] Medicare A & B t 2 [id number] THI [place] [id number] documented as of this encounter Advance Directives Type Date Recorded Patient Online Facilitator Explanation Advance Directives and Living 05/14/2014 1:59 PM Will Power of Jig Hand 03/07/2015 2:05 PM
--- OUTSIDE RECORDS SUMMARY | 2019-03-20 18:15 | XMS REPORT | Summary of Care ---
:1955 Author Organization [facility] Address [address] [place] [address] Care Team Providers Name Role Phone Wally Angulo Primary Care Provider Wally Angulo Insurance Hmo Bernabe Poe MD Unavailable Sophia Fisher [facility] Public Services Assistant Unavailable Encounter Details Date Type Department Care Team Description 01/24/2019 Patient Secure [facility] MyChart Messages Doctor Unassigned, [address] [place] [address] [place] [address] [place] [address] [place] [address] Allergies Active Allergy Reactions Severity Noted Date Comments Aripiprazole Unknown - See comments 04/10/2014 Symptoms of tardive dyskinesia Patient states that she is currently taking medication. Quetiapine Fumarate Unknown - See comments 03/05/2014 tremors Sulfasalazine Hives 01/21/2011 documented as of this encounter (statuses as of 02/24/2019) Medications Medication Sig Dispensed Refills Start End Status Date Date MULTIPLE VITAMINS DAILY 2 pills a day 0 Active ORAL TAB fluticasone (FLONASE) Use 1 [place] in each 1 Bottle 2 Active 50 [...] MOUTH ONCE DAILY 9 Hypothyroidism, unspecified type documented as of this encounter (statuses as of 02/24/2019) Active Problems Patient Care Coordination Note Hypertension [...] drink per day for most women and camera storage clerk weight men ? If I am a smoker, stop smoking ? Manage stress by identifying three ways to reduce stress ? [employer] (www.[email or web address]/Kindling) is an online tool that will allow me to review lab results and portions of my health record, and to communicate with healthcare providers as needed. 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 However, she has been basically asymptomatic since except for functional bowel symptoms Chronic pain syndrome Overview: As part of the fibromyalgia Rheumatoid arthritis Overview: ICD10 Diagnosis Term Fixed Wing Aircraft Flight Mechanic Utility documented as of this encounter (statuses as of 02/24/2019) Resolved Problems Problem Noted Date Resolved Date [...] arthritis 03/18/2011 04/04/2013 Overview: ICD10 Diagnosis Term Fixed Wing Aircraft Flight Mechanic Utility Encounter for long-term (current) use of [...] S/p laparoscopic cholecystectomy 09/19/2007 ICD10 Diagnosis Term Fixed Wing Aircraft Flight Mechanic Utility Calculus of bile duct 09/19/2007 11/29/2007 Overview: S/p laparoscopic cholecystectomy 09/19/2007 ICD10 Diagnosis Term Fixed Wing Aircraft Flight Mechanic Utility Psoriatic arthropathy 12/29/2011 Overview: On Remicade infusions. Has never received Enbrel or Humira. Rheumatism and fibrositis 10/29/2008 Overview: ICD10 Diagnosis Term Fixed Wing Aircraft Flight Mechanic Utility Irritable bowel syndrome 12/29/2011 Overview: Has periods of constipation alternating with loose stools off and on. Hypothyroidism 10/05/2015 Overview: ICD10 Diagnosis Term Fixed Wing Aircraft Flight Mechanic Utility Chronic pain syndrome 12/29/2011 Overview: As part of the fibromyalgia Psoriatic arthropathy 01/05/2015 documented as of this encounter (statuses as of 02/24/2019) Immunizations Name Administration Dates Next Due H1n1 [...] Medicine Ciro Villanueva MD [id number] [place] [address] [phone] 03/19/2019 Nurse Visit Pain Medicine Rich, Erx 03/30/2019 Office Visit Pulmonary Disease Simi Veliz, DO [address] [place] [address] 04/05/2019 Office Visit Internal Medicine Wally Angulo [address] [place] [address] [phone] 04/06/2019 Office Visit Internal Medicine Wally Angulo [address] [place], [place] [address] 04/16/2019 Nurse Visit Pain Medicine Rich, Erx 04/17/2019 Office Visit Infectious Disease Sebastian Alberto [id number] [place], [place] [address] Health Maintenance Due Date Last Done Comments [...] of this encounter Implants Implanted Type Area Steward/Stewardess Economy Class Device Identifier Shelf Expiration Model / Serial Date / Lot Hip HIP documented as of this encounter Results Not on filedocumented in this encounter Insurance Payer Benefit Plan / Subscriber ID Effective Dates Phone Address Type Group MEDICARE MEDICARE PART xxxxxxxxxxx 1992-[place] [phone] [address] [facility] Medicare A & B t 2 [id number] THI CORTÉS [id number] documented as of this encounter Advance Directives Type Date Recorded Patient Methods Examiner Explanation Advance Directives and Living 05/14/2014 1:59 PM Will Power of Service Delivery Management Consultant 03/07/2015 2:05 PM
--- OUTSIDE RECORDS SUMMARY | 2019-03-20 18:15 | XMS REPORT | Summary of Care ---
:1955 Author Organization [facility] Address [address] [place] [address] Care Team Providers Name Role Phone Wally Angulo Primary Care Provider Wally Angulo Insurance Hmo Bernabe Poe MD Unavailable Sophia Fisher [facility] Service Center Coordinator Unavailable Reason for Visit Reason Comments Rx Concern/Question Encounter Details Date Type Department Care Team Description 02/23/2019 Telephone Medicine (ARYAN 10A) Yunior Layne DO Rx Concern/Question [address] [place] [address] [place], [place] [phone] [address] Allergies Active Allergy Reactions Severity Noted Date [...] ORAL TAB fluticasone (FLONASE) 50 Use 1 [place] in each 1 Bottle 2 04/25/20 Active [...] both eyes not due to Sjogren's syndrome cycloSPORINE (RESTASIS) Place 1 Drop in both 30 Each 4 02/24/20 Active 0.05 % dropsIndications: eyes every 12 19 Dry eyes (twelve) hours. documented as of this encounter (statuses as [...] drink per day for most women and trommel tender weight men ? If I am a smoker, stop smoking ? Manage stress by identifying three ways to reduce stress ? [employer] (www.[facility]/Survela) is an online tool that will allow me to review lab results and portions of my health record, and to communicate with healthcare providers as needed. 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 However, she has been basically asymptomatic since except for functional bowel symptoms Chronic pain syndrome Overview: As part of the fibromyalgia Rheumatoid arthritis Overview: ICD10 Diagnosis Term Coal Bagger Utility documented as of this encounter (statuses [...] arthritis 03/18/2011 04/04/2013 Overview: ICD10 Diagnosis Term Coal Bagger Utility Encounter for long-term (current) use of [...] S/p laparoscopic cholecystectomy 09/19/2007 ICD10 Diagnosis Term Coal Bagger Utility Calculus of bile duct 09/19/2007 11/29/2007 Overview: S/p laparoscopic cholecystectomy 09/19/2007 ICD10 Diagnosis Term Coal Bagger Utility Psoriatic arthropathy 12/29/2011 Overview: On Remicade infusions. Has never received Enbrel or Humira. Rheumatism and fibrositis 10/29/2008 Overview: ICD10 Diagnosis Term Coal Bagger Utility Irritable bowel syndrome 12/29/2011 Overview: Has periods of constipation alternating with loose stools off and on. Hypothyroidism 10/05/2015 Overview: ICD10 Diagnosis Term Coal Bagger Utility Chronic pain syndrome 12/29/2011 Overview: As [...] Medicine Ciro Villanueva MD [id number] [place], [place] [address] 03/19/2019 Nurse Visit Pain Medicine Fede Villanueva 03/30/2019 Office Visit Pulmonary Disease Simi Veliz DO [address] [place] [phone] 04/05/2019 Office Visit Internal Medicine Wally Angulo [address] [place] [address] [phone] 04/06/2019 Office Visit Internal Medicine Wally Angulo [address] [place] [address] [phone] 04/16/2019 Nurse Visit Pain Medicine Rangel Villanuevax 04/17/2019 Office Visit Infectious Disease Sebastian Alberto [id number] [place], [place] [address] Health Maintenance Due Date Last Done Comments [...] of this encounter Implants Implanted Type Area Remarketing Rep Device Identifier Shelf Expiration Model / Serial Date / Lot Hip HIP documented as of this encounter Results Not on filedocumented in this encounter Visit Diagnoses Diagnosis Dry eyes - Primary Tear film insufficiency, unspecified documented in this encounter Insurance Payer Benefit Plan / Subscriber ID Effective Dates Phone Address Type Group MEDICARE MEDICARE PART xxxxxxxxxxx 1992-[place] [phone] [address] Medicare A & B t 2 [id number] THI [place] [id number] documented as of this encounter Advance Directives Type Date Recorded Patient Rail Express Clerk Explanation Advance Directives and Living 05/14/2014 1:59 PM Will Power of Fuel System Maintenance Supervisor 03/07/2015 2:05 PM
--- OUTSIDE RECORDS SUMMARY | 2019-03-20 18:16 | XMS REPORT | Summary of Care ---
:1955 Author Organization [facility] Address [address] [place] [address] Care Team Providers Name Role Phone Wally Angulo Primary Care Provider Wally Angulo Insurance Hmo Bernabe Poe MD Unavailable Sophia Fisher [facility] Stick Puller Unavailable Encounter Details Date Type Department Care Team Description 02/25/[address] [facility] Internal Wally Angulo [address] [place] [address] [place] [address] , [address] [place] [address] Allergies Active Allergy Reactions Severity Noted Date Comments Aripiprazole Unknown - See comments 04/10/2014 Symptoms of tardive dyskinesia Patient states that she is currently taking medication. Quetiapine Fumarate Unknown - See comments 03/05/2014 tremors Sulfasalazine Hives 01/21/2011 documented as of this encounter (statuses as of 02/26/2019) Medications Medication Sig Dispensed Refills Start End Status Date Date MULTIPLE VITAMINS DAILY 2 pills a day 0 Active ORAL TAB fluticasone (FLONASE) 50 Use 1 [place] in each 1 Bottle 2 04/25/20 Active [...] MOUTH BEFORE MEALS 19 AND AT BEDTIME OTEZLA STARTER 10 mg 0 09/14/19 Active (4)-20 mg (4)-30 mg (47) 19 DsPk cyanocobalamin (VITAMIN 1 mL by 30 mL 0 10/10/19 Active B-12) 1,000 mcg/mL Intramuscular route 19 injectionIndications: weekly. Osteopenia of both hips TRAZODONE 100 mg TAKE 1 TABLET BY [...] as of this encounter (statuses as of 02/26/2019) Active Problems Patient Care Coordination Note Hypertension [...] drink per day for most women and graphics specialist weight men ? If I am a smoker, stop smoking ? Manage stress by identifying three ways to reduce stress ? [employer] (www.[facility]/[employer]) is an online tool that will allow me to review lab results and portions of my health record, and to communicate with healthcare providers as needed. 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 However, she has been basically asymptomatic since except for functional bowel symptoms Chronic pain syndrome Overview: As part of the fibromyalgia Rheumatoid arthritis Overview: ICD10 Diagnosis Term Funeral Home Location Manager Utility documented as of this encounter (statuses as of 02/26/2019) Resolved Problems Problem Noted Date Resolved Date [...] arthritis 03/18/2011 04/04/2013 Overview: ICD10 Diagnosis Term Funeral Home Location Manager Utility Encounter for long-term (current) use [...] S/p laparoscopic cholecystectomy 09/19/2007 ICD10 Diagnosis Term Funeral Home Location Manager Utility Calculus of bile duct 09/19/2007 11/29/2007 Overview: S/p laparoscopic cholecystectomy 09/19/2007 ICD10 Diagnosis Term Funeral Home Location Manager Utility Psoriatic arthropathy 12/29/2011 Overview: On Remicade infusions. Has never received Enbrel or Humira. Rheumatism and fibrositis 10/29/2008 Overview: ICD10 Diagnosis Term Funeral Home Location Manager Utility Irritable bowel syndrome 12/29/2011 Overview: Has periods of constipation alternating with loose stools off and on. Hypothyroidism 10/05/2015 Overview: ICD10 Diagnosis Term Funeral Home Location Manager Utility Chronic pain syndrome 12/29/2011 Overview: As part of the fibromyalgia Psoriatic arthropathy 01/05/2015 documented as of this encounter (statuses as of 02/26/2019) Immunizations Name Administration Dates Next Due H1n1 [...] Treatment Date Type Specialty Care Team Description 03/19/2019 Nurse Visit Pain Medicine Fede Villanueva 03/30/2019 Office Visit Pulmonary Disease Simi Veliz DO [address] [place] [address] 04/05/2019 Office Visit Internal Medicine Wally Angulo [address] [facility] [address] [place], [place] [address] 04/06/2019 Office Visit Internal Medicine Wally Angulo [address] [place], [place] [address] 04/16/2019 Nurse Visit Pain Medicine Doulatram, Erx 04/17/2019 Office Visit Infectious Disease Sebastian Alberto [address] [facility] [id number] [place], [place] [address] 05/14/2019 Nurse Visit Pain Medicine Doulatram, Erx 06/11/2019 Nurse Visit Pain Medicine Doulatram, Erx 07/09/2019 Nurse Visit Pain Medicine Doulatram, Erx 08/06/2019 Nurse Visit Pain Medicine Doulatram, Erx 08/27/2019 Office Visit Pain Medicine Doulatram, MD Ciro [address] [id number] [place], [place] [address] 09/03/2019 Nurse Visit Pain Medicine Doulatram, Erx Health Maintenance Due Date Last Done Comments [...] of this encounter Implants Implanted Type Area Advertising Designer Device Identifier Shelf Expiration Model / Serial Date / Lot Hip HIP documented as of this encounter Results Not on filedocumented in this encounter Insurance Payer Benefit Plan / Subscriber ID Effective Dates Phone Address Type Group MEDICARE MEDICARE PART xxxxxxxxxxx 1992-[place] [phone] [address] [facility] Medicare A & B t 2 [id number] THI CORTÉS [id number] documented as of this encounter Advance Directives Type Date Recorded Patient Resident Service Coordinator Explanation Advance Directives and Living 05/14/2014 1:59 PM Will Power of Orthopedic Shoes Salesperson 03/07/2015 2:05 PM
--- OUTSIDE RECORDS SUMMARY | 2019-03-20 18:16 | XMS REPORT | Summary of Care ---
:1955 Author Organization [facility] Address [address] [place] [id number] Care Team Providers Name Role Phone Wally Angulo Primary Care Provider Wally Angulo Insurance Hmo Bernabe Poe MD Unavailable Sophia iFsher [facility] 3D Artist Unavailable Encounter Details Date Type Department Care Team Description 01/23/2019 Patient Secure Wyg [facility] MyChart Messages Doctor Unassigned, [address] [place] [address] [place] [address] [place] [address] [place] [address] Allergies Active Allergy Reactions Severity Noted Date [...] Active ORAL TAB fluticasone (FLONASE) Use 1 Sleepy Eye in each 1 Bottle 2 Active 50 [...] drink per day for most women and customer solutions coordinator weight men ? If I am a smoker, stop smoking ? Manage stress by identifying three ways to reduce stress ? [employer] ([email or web address] Information) is an online tool that will allow me to review lab results and portions of my health record, and to communicate with healthcare providers as needed. 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 However, she has been basically asymptomatic since except for functional bowel symptoms Chronic pain syndrome Overview: As part of the fibromyalgia Rheumatoid arthritis Overview: ICD10 Diagnosis Term Fiber Designer Utility documented as of this encounter (statuses [...] arthritis 03/18/2011 04/04/2013 Overview: ICD10 Diagnosis Term Fiber Designer Utility Encounter for long-term (current) use of [...] S/p laparoscopic cholecystectomy 09/19/2007 ICD10 Diagnosis Term Fiber Designer Utility Calculus of bile duct 09/19/2007 11/29/2007 Overview: S/p laparoscopic cholecystectomy 09/19/2007 ICD10 Diagnosis Term Fiber Designer Utility Psoriatic arthropathy 12/29/2011 Overview: On Remicade infusions. Has never received Enbrel or Humira. Rheumatism and fibrositis 10/29/2008 Overview: ICD10 Diagnosis Term Fiber Designer Utility Irritable bowel syndrome 12/29/2011 Overview: Has periods of constipation alternating with loose stools off and on. Hypothyroidism 10/05/2015 Overview: ICD10 Diagnosis Term Fiber Designer Utility Chronic pain syndrome 12/29/2011 Overview: As [...] Medicine Ciro Villanueva MD [id number] [place] [address] [phone] 03/19/2019 Nurse Visit Pain Medicine Rich, Erx 03/30/2019 Office Visit Pulmonary Disease Simi Veliz, DO [address] [place] [id number] 04/05/2019 Office Visit Internal Medicine Wally Angulo [id number] [place] [address] [phone] 04/06/2019 Office Visit Internal Medicine Wally Angulo [id number] [place], [place] [address] 04/16/2019 Nurse Visit Pain Medicine Rich, Erx 04/17/2019 Office Visit Infectious Disease Sebastian Alberto [id number] [place], [place] [id number] Health Maintenance Due Date Last Done Comments [...] of this encounter Implants Implanted Type Area Central Supply Aide Device Identifier Shelf Expiration Model / Serial Date / Lot Hip HIP documented as of this encounter Results Not on filedocumented in this encounter Insurance Payer Benefit Plan / Subscriber ID Effective Dates Phone Address Type Group MEDICARE MEDICARE PART xxxxxxxxxxx 1992-Ari [phone] [facility] Medicare A & B t 2 [id number] [place] [id number] documented as of this encounter Advance Directives Type Date Recorded Patient Iron Installer Explanation Advance Directives and Living 05/14/2014 1:59 PM Will Power of Java [id number] Architect 03/07/2015 2:05 PM
--- OUTSIDE RECORDS SUMMARY | 2019-03-20 18:17 | XMS REPORT | Summary of Care ---
:1955 Author Organization [facility] Address [address] [place] [id number] Care Team Providers Name Role Phone Wally Angulo Primary Care Provider Wally Angulo Insurance [employer] Bernabe Poe MD Unavailable Sophia Fisher [facility] [place] Specialist Unavailable Reason for Referral (Routine) Status Reason Specialty Diagnoses / Referred By Referred To Procedures Contact Contact New Request Neurology Diagnoses Chronic migraine Doulatram, Procedures CONSULT/REFERRAL NEUROLOGY MD Ciro [address] [facility] [id number] [place] [address] Reason for Visit Reason Comments Pain Encounter Details Date Type Department Care Team Description 02/26/2019 Office Visit [facility] Anesthesia Doulatram, Chronic pain syndrome (Primary Dx); Pain-[facility] Multispecialty MD Ciro Psoriatic arthropathy; [facility] [address] [facility] Arthritis/arthropathy of multiple joints; [address] [place] [address] [id number] Contracture of multiple joints; [place], [place] Chronic migraine [id number] [phone] Allergies Active Allergy Reactions Severity Noted Date Comments Aripiprazole Unknown - See comments 04/10/2014 Symptoms of tardive dyskinesia Patient states that she is currently taking medication. Quetiapine Fumarate Unknown - See comments 03/05/2014 tremors Sulfasalazine Hives 01/21/2011 documented as of this encounter (statuses as of 02/27/2019) Medications Medication Sig Dispensed Refills Start End Status Date Date MULTIPLE VITAMINS 2 pills a day 0 Active DAILY ORAL TAB fluticasone (FLONASE) Use 1 [place] in 1 Bottle 2 Active 50 mcg/actuation [...] MOUTH BEFORE MEALS 019 AND AT BEDTIME OTEZLA STARTER 10 mg 0 Active (4)-20 mg (4)-30 mg 019 (47) DsPk cyanocobalamin 1 mL by 30 mL 0 Active (VITAMIN B-12) 1,000 Intramuscular 019 mcg/mL route weekly. injectionIndications: Osteopenia of both hips TRAZODONE 100 mg [...] pain, Max 6 Chronic pain syndrome daily cycloSPORINE INSTILL 1 DROP IN 60 Each 1 Active (RESTASIS) 0.05 % BOTH EYES EVERY 12 019 dropsIndications: HOURS Keratoconjunctivitis sicca of both eyes not due to Sjogren's syndrome cycloSPORINE Place 1 Drop in 30 Each 4 Active (RESTASIS) 0.05 % both eyes every 12 019 dropsIndications: Dry (twelve) hours. eyes pregabalin (LYRICA) Take 1 capsule by 90 capsule 5 Active 150 mg mouth 3 (three) 019 capsuleIndications: times daily. Chronic pain syndrome baclofen 10 mg Take 1 tablet by 90 tablet 5 Active tabletIndications: mouth 3 (three) 019 Chronic pain syndrome times daily. baclofen 10 mg tablet Take 1 tablet by 90 tablet 2 2 02/26/ Discontinued mouth 3 (three) 019 2019 times daily. pregabalin (LYRICA) Take 1 capsule by 90 capsule 3 02/26/ Discontinued 150 mg capsule mouth 3 (three) 019 2019 times daily. 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 If I am a smoker, stop smoking ? Manage stress by identifying three ways to reduce stress ? [employer] ([email or web address]) is an online tool that will allow me to review lab results and portions of my health record, and to communicate with healthcare providers as needed. If I do not have a [employer] account, I will discuss this with my [...] stools and was evaluated by a GI delivery consultant in [place] about 10 years ago who told her she had then inflammatory bowel disease. However, she has been basically asymptomatic since except for functional bowel symptoms Chronic pain syndrome Overview: As part of the fibromyalgia Rheumatoid arthritis Overview: ICD10 Diagnosis Term Housekeeping Coordinator Utility documented as of this encounter (statuses as of 02/27/2019) Resolved Problems Problem Noted Date Resolved Date [...] arthritis 03/18/2011 04/04/2013 Overview: ICD10 Diagnosis Term Housekeeping Coordinator Utility Encounter for long-term (current) use of [...] S/p laparoscopic cholecystectomy 09/19/2007 ICD10 Diagnosis Term Housekeeping Coordinator Utility Calculus of bile duct 09/19/2007 11/29/2007 Overview: S/p laparoscopic cholecystectomy 09/19/2007 ICD10 Diagnosis Term Housekeeping Coordinator Utility Psoriatic arthropathy 12/29/2011 Overview: On Remicade infusions. Has never received Enbrel or Humira. Rheumatism and fibrositis 10/29/2008 Overview: ICD10 Diagnosis Term Housekeeping Coordinator Utility Irritable bowel syndrome 12/29/2011 Overview: Has periods of constipation alternating with loose stools off and on. Hypothyroidism 10/05/2015 Overview: ICD10 Diagnosis Term Housekeeping Coordinator Utility Chronic pain syndrome 12/29/2011 Overview: As part of the fibromyalgia Psoriatic arthropathy 01/05/2015 documented as of this encounter (statuses as of 02/27/2019) Immunizations Name Administration Dates Next Due H1n1 [...] of this encounter Last Filed Vital Signs Vital Sign Reading Time Taken Comments Blood Pressure 110/70 02/26/2019 1:17 PM CDT Pulse 79 02/26/2019 1:17 PM CDT Temperature - - Respiratory Rate - - Oxygen Saturation 96% 02/26/2019 1:17 PM CDT Inhaled Oxygen Concentration - - Weight 61.6 kg (135 lb 14.4 oz) 02/26/2019 1:17 PM CDT Height 165.1 cm (5' 5") 02/26/2019 1:17 PM CDT Body Mass Index 22.61 02/26/2019 1:17 PM CDT documented in this encounter Progress Notes Ciro Villanueva MD - 02/26/2019 1:30 PM CDT PAIN MANAGEMENT CLINIC PROGRESS NOTE 02/26/2019 Check in Time: 12:57 pm Room Time: 1:24 pm Provider in Room: 1:32 pm Chief Complaint: right hip pain History of Present Illness: Heidy Robison is a 63 year old female with psoriatic arthritis with polyarthralgias primarily of the hands, as well as s/p left total hip arthroplasty in 2011. She was last seen 08/21/2018 when shereported that [employer] was working well for her. She was referred to orthopedic surgery for evaluationof her right wrist and directed to continue medications. Her medical history is extensive, including osteoporosis, COPD, IBS, pulmonary fibrosis, and hypothyroidism. She was also hospitalized for a swine flu infection that required an ICU stay. She is being followed by infectious disease for recurrent UTIs and pulmonary non-tuberculous Mycobacterium infection. She saw Dr. Corona on 12/22/18 for an acute right 1st metacarpal fracture that occurred after a fall. She was planned for ORIF of that digit. She is also being followed by rheumatology for her psoriasis and is now on Otezla. She continues to report some continued patches of psoriasis. She continues to have immobility of the fingers. Location: right hip -duration: since noon today -context: unknown, probably arthritis; no prior surgeries to right hip; last fall 1 week ago but hitleft side -radiation: gluteus to back -timing: constant -quality: unknown -improves/worsens: unknown (acute) -associated with: immobility of right leg She wants to see Dr. Robison in Rheumatology. PAIN NRS SCALE 0-10 SCORE OVER LAST WEEK (0=no pain and 10=worst pain imaginable): Best: 3/10 Worst: 8/10 Now: 610 CURRENT PAIN REGIMEN: -Fentanyl 100 mcg/hr patch q72h - as directed -Fentanyl 25 mcg/hr patch q72h - as directed -[place] 10/325 mg q4hr prn - usually 3/day but says she went down to 2/day over last 2 wks. -Lyrica 150 mg TID - as directed -Baclofen 10 mg TID - as directed (only on occasion, 3-4x/week) but states she needs to refill it. -Diclofenac/Flector patch 1.3% QD - taking PRN; not taking this (Rx ) -Lidocaine patch - can't find this in the chart; patient reports that she threw out meds after her -Celecoxib 200mg QD via PCP - reports she may not be able to take anymore due to stomach issues -Duloxetine 30mg QD - doesn't take anymore; she says she hasn't refilled it. ADVERSE EFFECTS FROM CURRENT REGIMEN: None FUNCTIONAL STATUS ON CURRENT REGIMEN: Dependent on others for tasks that require fine hand movements. Dependent on others for medication management - was previously her but now her daughter. OTHER MEDS TRIED (IN BOLD)/ ADVERSE SIDE EFFECTS: Muscle relaxants: Flexeril, Robaxin, Baclofen, Zanaflex Neuropathic agents: Lyrica, Gabapentin, Amitriptyline, Cymbalta NSAIDS: Naproxen, Mobic, Celebrex, Ibuprofen Opioids: [place], Tylenol 3, Tramadol, Fentanyl patches Others: Diclofenac patches, Lidocaine patches, Voltaren (diclofenac) gel * Currently on sumatriptan 25mg QD PRN (migraine headaches, reports limited to 9x/month), eszopiclone 3mg QHS, buspirone 15mg TID, metoclopramide 5mg BID PRN, and sertraline 100mg x2 BID. Appears to have been on Keppra 500mg BID at some point. * Appears to be taking a significant number of medications. Says she doesn't take trazodone 100mg QHS. PAIN INTERVENTIONAL PROCEDURES DONE BY US/ DATES: -She had caudal ADELE, SIJ, & troch injections in 07/2017 with 100% pain relief for a short time. Caudal ADELE and SIJ in 2017. Caudal ADELE in 2016. Current Outpatient Medications Medication Sig Dispense Refill baclofen 10 mg tablet Take 1 tablet by mouth 3 (three) times daily. 90 tablet 5 pregabalin (LYRICA) 150 mg capsule Take 1 capsule by mouth 3 (three) times daily. 90 capsule 5 cycloSPORINE (RESTASIS) 0.05 % drops Place 1 Drop in both eyes every 12 ( twelve) hours. 30 Each 4 cycloSPORINE (RESTASIS) 0.05 % drops INSTILL 1 DROP IN BOTH EYES EVERY 12 HOURS 60 Each 1 FENTanyl 100 mcg/hr patch Apply 1 Patch to skin every 72 (seventy-two) hours. 10 Patch 0 FENTanyl 25 mcg/hr patch Apply 1 Patch to skin every 72 (seventy-two) hours. 10 Patch 0 HYDROcodone-acetaminophen (NORCO) 10-325 mg tablet Take 1 pill by mouth every 4 hours as needed for pain, Max 6 daily 150 tablet 0 OTEZLA 30 mg tablet TAKE 1 TABLET BY MOUTH TWICE DAILY 60 tablet 0 AMLODIPINE 10 mg tablet TAKE 1 TABLET BY MOUTH DAILY 90 tablet 1 SUMATRIPTAN 25 mg tablet TAKE 1 TABLET BY MOUTH ONCE DAILY NEEDED FOR MIGRAINE. REPEAT IN 2HOURS IF NO RELIEF. MAX 100MG IN A DAY NO MORE THAN 400MG PER MONTH 9 tablet 0 LEVOTHYROXINE 100 mcg tablet TAKE 1 TABLET BY MOUTH ONCE DAILY 90 tablet 1 LISINOPRIL 10 mg tablet TAKE 2 TABLETS BY MOUTH DAILY 180 tablet 0 ESZOPICLONE 3 mg tablet TAKE 1 TABLET BY MOUTH AT BEDTIME NEEDED FOR INSOMNIA 90 tablet 0 celecoxib 200 mg capsule Take 1 capsule by mouth daily. 30 capsule 3 OTEZLA STARTER 10 mg (4)-20 mg (4)-30 mg (47) DsPk SUCRALFATE 1 gram tablet TAKE 1 TABLET BY MOUTH BEFORE MEALS AND AT BEDTIME 120 tablet 2 sodium chloride (HYPER-TYLER) 3.5 % Nebu Inhale 1 Vial 2 (two) times daily. 60 Vial 11 Mucus Clearing Device (FLUTTER) Rebecca Use as directed 1 Device 0 busPIRone 15 mg tablet TAKE 1 TABLET BY MOUTH 3 TIMES DAILY 90 tablet 0 metoclopramide HCl 5 mg tablet Take 1 tablet by mouth 2 (two) times daily as needed for Nausea and Vomiting (N/V) or Gastroesophageal reflux. 60 tablet 0 fluticasone-salmeterol (ADVAIR HFA) 230-21 mcg/actuation inhaler Inhale 2 Puffs 2 (two) times daily. 12 g 11 Fluticasone-Salmeterol (ADVAIR DISKUS) 500-50 mcg/dose inhalation disk Inhale 1 Puff every 12 (twelve) hours. 60 Each 11 Diclofenac Sodium (VOLTAREN) 1 % gel Apply to area(s) 2 (two) times daily. 100 g 3 TRAZODONE 100 mg tablet TAKE 1 TABLET BY MOUTH AT BEDTIME 30 tablet 0 cyanocobalamin (VITAMIN B-12) 1,000 mcg/mL injection 1 mL by Intramuscular route weekly. 30 mL 0 ergocalciferol, vitamin d2, 50,000 unit capsule Take 1 capsule by mouth every 4 (four) weeks. 1 capsule 3 pantoprazole 40 mg EC tablet Take 1 tablet by mouth 2 (two) times daily. 180 tablet 1 albuterol 2.5 mg /3 mL (0.083 %) nebulizer solution Inhale 3 mL every 6 (six ) hours as needed for Wheezing or Shortness of Breath. 75 Vial 11 albuterol 90 mcg/actuation inhaler Inhale 2 Puffs every 6 (six) hours as needed for Wheezing or Shortness of Breath. 8.5 g 11 calcipotriene-betamethasone (TACLONEX) 0.005-0.064 % external suspension Apply to area(s) daily. For scalp 60 g 1 triamcinolone acetonide 0.1 % ointment Apply to area(s) 2 (two) times daily. As needed. Avoid face, groin, axillae 454 g 0 Diclofenac Epolamine (FLECTOR) 1.3 % patch Apply to skin once daily as needed for Pain (scale 4-6). 30 Patch 3 DULoxetine 30 mg capsule Take 30 mg by mouth daily. metoprolol tartrate 25 mg tablet TK 1 T PO BID AT 6 AM AND AT 6 PM 180 tablet 3 magnesium oxide 400 mg tablet TK 1 T PO D 0 melatonin 10 mg Tab Take by mouth at bedtime. Indications: Take 2 tabs levETIRAcetam (KEPPRA) 500 mg tablet Take 500 mg by mouth daily. mupirocin (BACTROBAN) 2 % ointment Apply to area(s) daily. 22 g 1 triamcinolone acetonide 0.1 % cream Apply to area(s) 2 (two) times daily as needed (Psoriasis on trunk and extremities). 454 g 2 tazarotene (TAZORAC) 0.05 % cream Apply to area(s) at bedtime. For thick plaques not improving with other medications. 60 g 1 SERTraline (ZOLOFT) 100 mg tablet Take 2 tablets by mouth at bedtime. 60 tablet 1 fluticasone (FLONASE) 50 mcg/actuation nasal spray Use 1 [place] in each nostril daily. 1 Bottle 2 MULTIPLE VITAMINS DAILY ORAL TAB 2 pills a day No current facility-administered medications for this visit. Past Medical History: Diagnosis Date Chronic pain syndrome As part of the fibromyalgia COPD (chronic obstructive pulmonary disease) Esophageal reflux Gangrenes, pulp 54 year old female with significant history of swine flu causing hospitalization resulting in coma,seizures, and hypotension treated with pressors in ICU causing gangrene of digits of hands and toes Irritable bowel syndrome Has periods of constipation alternating with loose stools off and on. Polypharmacy 40 medications listed by July/2014 Psoriatic arthropathy For 17 years has psoriasis and X rays of hands showed changes suggestive of Psoriatic arthritis. previously tried meds: Otezla (had allergic reaction to this). Remicade, Otezala, Arava, MTX. Allergic to SSZ. enbrel Apr 2014 to jul 2014 stopped due to recurrent infections Pulmonary fibrosis, postinflammatory Rheumatoid arthritis(714.0) Seizure none in 7 years Sicca syndrome Ulcerative (chronic) ileocolitis Pt has history of blood in the stools and was evaluated by a GI delivery consultant in [place] about 10 years ago who told her she had then inflammatory bowel disease. However, she has been basically asymptomatic since except for functional bowel symptoms Unspecified hypothyroidism On replacement Rx with Synthroid Past Surgical History: Procedure Laterality Date ABDOMINAL HYSTERECTOMY APPENDECTOMY BLADDER BIOPSY 05/30/2015 CAUDAL EPIDURAL STEROID INJECTION Bilateral 05/07/2015 Surgeon: Ciro Villanueva MD; Location: [facility] CAUDAL EPIDURAL STEROID INJECTION 2016 CAUDAL EPIDURAL STEROID INJECTION Left 2016 Surgeon: Ciro Villanueva MD; Location: [facility] CAUDAL EPIDURAL STEROID INJECTION N/A 07/19/2017 Surgeon: Ciro Villanueva MD; Location: [facility] COLONOSCOPY 09/2015 repeat in 2 years CURLY TOE CORRECTION One on each foot CYSTOSCOPY N/A 05/24/2014 Surgeon: Kirstin Edwards MD; [facility] CYSTOSCOPY N/A 05/30/2015 Surgeon: Kirstin Edwards MD; [facility] ESOPHAGOGASTRODUODENOSCOPY N/A 08/10/2017 Surgeon: Maral Bailey MD; [facility] HIP DECOMPRESSION 11/15/2011 Surgeon: Lucy Boothe MD; [facility] LAP,CHOLECYSTECTOMY 11/15 LAPAROSCOPIC BARIATRIC GASTRIC BYPASS Pt lost over 100 pounds and now weighs about 130 pounds, down from over 220 lbs NAIL BED ABLATION (SHX) 04/14/2011 Surgeon:WHITNEY RODGERS; [facility] RETROGRADE PYELOGRAM Bilateral 05/24/2014 Surgeon: Kirstin Edwards MD; [facility] SACROILIAC JOINT INJECTION Left 05/07/2015 Surgeon: Ciro Villanueva MD; [facility] SACROILIAC JOINT INJECTION N/A 09/09/2015 Surgeon: Ciro Villanueva MD; Location: [facility] SACROILIAC JOINT INJECTION 2016 SACROILIAC JOINT INJECTION Left 07/19/2017 Surgeon: Ciro Villanueva MD; Location: [facility] TOTAL HIP ARTHROPLASTY 03/02/2012 Surgeon: Lucy Boothe MD; [facility] TROCHANTERIC STEROID INJECTION (SHX) Left 07/19/2017 Surgeon: Ciro Villanueva MD; Location: [facility] Review of Systems (BOLDED IF POSITIVE, OTHERWISE NEGATIVE) Other pertinent positives annotated above in HPI. General: Fatigue, Unintentional Weight Loss or Weight Gain HEENT: Dry Mouth Cardio: Myocardial infarction/Heart Attack, Heart Rhythm Abnormalities, Abnormal EKGs, History of Coronary Stents, Blood Thinning Medication (Aspirin, Plavix/Clopidogrel, Heparin/Lovenox) Pulm: Obstructive Sleep Apnea, Snore at night, Use CPAP machine, Smoker, Chronic Obstructive Pulmonary Disease (COPD) GI: Constipation, Diarrhea, Nausea and Peptic Ulcer Disease, Blood in Stool : Difficulty Urinating Endo: Diabetes and Steroid use Neuro: Glaucoma, Difficulty Walking, Headaches, Numbness, Seizures, Strokes and Weakness MS: Neck Pain, Back Pain, Back Surgery and Muscle Aches Heme: Clotting Difficulties and Easy Bleeding Sleep: Daytime Somnolence, Fogginess of Thought, Inability to Complete Tasks, Insomnia Psych: Depression, Anxiety, Thoughts Harming Oneself or Thoughts of Harming Others Physical Exam: BP 110/70 (BP Location: Right arm, Patient Position: Sitting, BP CUFF SIZE: Adult Medium) | Pulse 79 | Ht 5' 5" (1.651 m) | Wt 135 lb 14.4 oz (61.6 kg) | SpO2 96% | BMI 22.61 kg/m Body mass index is 22.61 kg/m. GENERAL: No acute distress HEENT: normocephalic atraumatic and moist mucous membranes, anicteric sclera bilaterally LUNGS: normal excursion, no respiratory distress CARDIOVASCULAR: normal pulse rate, warm extremities, no gross edema noted MUSCULOSKELETAL/NEUROLOGIC EXAM: Mental Status: normal attention span, arousal, orientation, language, fluency, affect, judgement, knowledge and recall. Gait- shuffling Upper Extremities Bilateral hands with deformity and contracture of all digits, painful at the 1st MCP joint with movement. Lower Extremities: Strength: R L Hip flexion (L2) 5 5 Knee flexion (L5) 5 5 Knee extension (L3) 5 5 Dorsiflexion (ankle L4) 5 5 Plantarflexion (ankle S1) 5 5 Spine Exam: Cervical Spinous Process Tenderness: negative Cervical Paraspinous Tenderness: negative Thoracic Spinous Process Tenderness: positive Thoracic Paraspinous Tenderness: positive, states bilateral paraspinous muscle tenderness. Lumbar Spinous Process Tenderness: positive Lumbar Paraspinous Tenderness: positive, states bilateral muscle tenderness. Yadiel's Test (ARNIE): Left: negative Right: positive Hip ROM: Left: negative Right: positive on flexion and extension Greater Troch Tenderness: Left: negative Right: positive Gluteal Tenderness: Left: negative Right: positive Laboratory Last Metabolic Panel (including BUN/Cr and LFTs) CMP NA Date Value 12/20/2018 140 mmol/L 07/17/2014 142 MMOL/L K Date Value 12/20/2018 4.4 mmol/L 07/17/2014 4.6 MMOL/L CALCIUM Date Value 12/20/2018 9.3 mg/dL 07/17/2014 9.5 MG/DL CL Date Value 12/20/2018 106 mmol/L 07/17/2014 104 MMOL/L BUN Date Value 12/20/2018 23 mg/dL 07/17/2014 15 MG/DL CREATININE Date Value 12/20/2018 0.79 mg/dL 07/17/2014 0.84 MG/DL GLUCOSE Date Value 12/20/2018 86 mg/dL 07/17/2014 92 MG/DL CO2 TOTAL Date Value 12/20/2018 26 mmol/L 07/17/2014 26 MMOL/L ALBUMIN Date Value 12/20/2018 3.8 g/dL 07/17/2014 3.7 G/DL T PROTEIN Date Value 12/20/2018 7.7 g/dL 07/17/2014 7.2 G/DL TOTAL BILI Date Value 12/20/2018 0.3 mg/dL 07/17/2014 0.5 MG/DL BILI UNCON Date Value 03/13/2017 0.0 mg/dL (L) 07/17/2014 0.0 MG/DL (L) BILI CONJ Date Value 03/13/2017 0.0 mg/dL 07/17/2014 0.0 MG/DL ALT(SGPT) (U/L) Date Value 12/20/2018 23 07/17/2014 24 AST(SGOT) (U/L) Date Value 12/20/2018 17 07/17/2014 17 ALK PHOS (U/L) Date Value 12/20/2018 102 07/17/2014 116 CBC WBC x10^3 (/uL) Date Value 07/17/2014 6.5 WBC (10*3/L) Date Value 12/20/2018 5.26 RBC x10^6 (/uL) Date Value 07/17/2014 4.18 RBC (10*6/L) Date Value 12/20/2018 4.56 PLT x10^3 (/uL) Date Value 07/17/2014 186 PLT (10*3/L) Date Value 12/20/2018 233 HGB Date Value 12/20/2018 11.3 g/dL (L) 07/17/2014 11.8 G/DL HCT (%) Date Value 12/20/2018 36.4 07/17/2014 36.3 Radiology 12/08/18 R hand 3+ views HISTORY: History of fall. FINDINGS: AP, lateral, oblique views of right hand showed markedly deformed all MCP joints, distal radioulnar joint, radiocarpal and ulnocarpal joints, MCP joint of the thumb. Subluxation of MCP joints of all the fingers noted. MCP joint of the thumb is dislocated with fractures is suspected involving the distal end of the metacarpal bone and base of the proximal phalanx of right thumb. CONCLUSIONS: Markedly deformed right hand and wrist bones and joints. Fractures with dislocation suspected at MCP joint of right thumb. No studies of the right hip. Left hip XR 2 views 06/03/17 *.*.*.*.*.*.*.*.*.*.*.*.*.*FINAL*.*.*.*.*.*.*.*.*.*.*.*.*.*.* Exam: HIP, 2 VIEWS, UNILATERAL-LEFT SIDE HISTORY: S/SX, Dx: hip pain COMPARISON: CR hip 10/27/2015 FINDINGS: Post surgical changes of left total hip arthroplasty are redemonstrated without hardware complications. No acute fracture or dislocation is identified. The soft tissues are unremarkable. LILIA HOWE MD Personally interpreted by: ARASH JEFFERY MD /Signed/ ARASH JEFFERY MD IMPRESSION IMPRESSION: No acute bony abnormality Left hip arthroplasty without hardware complications. Medical Decision Making: Dx: Encounter Diagnoses Name Primary? Chronic pain syndrome Yes Psoriatic arthropathy Arthritis/arthropathy of multiple joints Contracture of multiple joints Chronic migraine Assessment/Plan: Heidy Robison is a 63 year old female with psoriatic arthritis with polyarthralgias primarily of the hands, as well as s/p left total hip arthroplasty in 2011. Additionally, she has multiple comorbidities including non -tuberculous Mycobacterial infection that recently resolved. She presents with continued chronic pain of multiple joints. -Patient requested treatment for chronic migraines. Advised patient about Botox for chronic migraines. -Patient used to have a neurologist in [place]; will refer to neurology for evaluation for migraines. Medications -Continue current medications. Refilled baclofen and Lyrica. -Advised patient that she may stop fentanyl 25mcg/hr patches in order to simplify her medication regimen. Rehab: Physical therapy: Home exercises as tolerated. Interventions: None at this time. Psych: has seen psychiatry previously. Hx of bereavement of . Compliance: UDS 08/21/2018 +hydrocodone +fentanyl +lorazepam, consistent w/ prescriptions at that time. 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 Follow Up: ERX q 4 weeks from 02/19/19. RTC 6 months Yordy Braun MD PGY-2, Anesthesiology Pager: [phone] 02/26/2019 2:34 PM After discussion with Dr Braun on 02/26/19, I examined this patient and I formulated the treatment plan as outlined in the medical decision making section. The risks, benefits, and alternatives of the treatment plan were reviewed with the patient in-depth to the patient's satisfaction. Any pertinent imaging annotated above was also independently reviewedby me. The documentation was edited, as seen in any pertinent revision history, in order to accurately document the diagnosis, pain scores/assessment, functional assessment, and the examination of the clinical encounter. Finally, expectations of outcomes and opioid compliance policies have been reviewed with the patient. Specifically, safe storage of all medications and hazards of operation of machinery and driving while on pain medications were explained and acknowledged by patient in their pain contract as documented Radha Leahy MA - 02/26/2019 1:30 PM Juana Shayna Robison is a 63 year old female here for follow up. Patient appears to be in no acute distress at this time. Nurse reviewed all allergies & medications with patient during this office visit. Pain score communicated to provider. Patient evaluated for fall risk and appropriate interventions taken. documented in this encounter Plan of Treatment Date Type Specialty Care Team Description 03/19/2019 Nurse Visit Pain Medicine Fede Villanueva 03/30/2019 Office Visit Pulmonary Disease Simi Veliz DO [address] [place] [address] [phone] 04/05/2019 Office Visit Internal Medicine Wally Angulo [address] [place] [address] [phone] 04/06/2019 Office Visit Internal Medicine Wally Angulo [address] [place], [place] [address] 04/16/2019 Nurse Visit Pain Medicine Doulatram, Erx 04/17/2019 Office Visit Infectious Disease Sebastian Alberto [address] [id number] [place], [place] [address] 05/14/2019 Nurse Visit Pain Medicine Doulatram, Erx 06/11/2019 Nurse Visit Pain Medicine Doulatram, Erx 07/09/2019 Nurse Visit Pain Medicine Doulatram, Erx 08/06/2019 Nurse Visit Pain Medicine Doulatram, Erx 08/27/2019 Office Visit Pain Medicine Doulatram, MD Ciro [address] [id number] [place], [place] [phone] 09/03/2019 Nurse Visit Pain Medicine Doulatram, Erx [...] of this encounter Implants Implanted Type Area Industrial Diamond Polisher Device Identifier Shelf Expiration Model / Serial Date / Lot Hip HIP documented as of this encounter Results Not on filedocumented in this encounter Visit Diagnoses Diagnosis Chronic pain syndrome - Primary Psoriatic arthropathy Arthritis/arthropathy of multiple joints Unspecified arthropathy, multiple sites Contracture of multiple joints Contracture of joint of multiple sites Chronic migraine Chronic migraine without aura, without mention of intractable migraine without mention of status migrainosus documented in this encounter Insurance Payer Benefit Plan / Subscriber ID Effective Dates Phone Address Type Group MEDICARE MEDICARE PART xxxxxxxxxxx 1992-[place] [phone] [address] Medicare A & B t 2 [id number] THI CORTÉS [id number] documented as of this encounter Advance Directives Type Date Recorded Patient Fixed Assets Accountant Explanation Advance Directives and Living 05/14/2014 1:59 PM Will Power of Marking Machine Tender 03/07/2015 2:05 PM
--- OUTSIDE RECORDS SUMMARY | 2019-03-20 18:17 | XMS REPORT | Summary of Care ---
:1955 Author Organization [facility] Address [address] [place] [address] Care Team Providers Name Role Phone Wally Angulo Primary Care Provider Wally Angulo Insurance Hmo Bernabe Poe MD Unavailable Sophia Fisher [facility] Assistant Farm Operations Manager Unavailable Encounter Details Date Type Department Care Team Description 02/27/2019 Patient Secure [facility] Internal Doctor Unassigned, [facility] [address] [place] [address] [address] [facility], [place] [address] [place] [address] [phone] Allergies Active Allergy Reactions Severity Noted Date [...] ORAL TAB fluticasone (FLONASE) 50 Use 1 [place] in each 1 Bottle 2 04/25/20 Active [...] every 12 19 Dry eyes (twelve) hours. pregabalin (LYRICA) 150 Take 1 capsule by 90 capsule 5 08/19/20 Active mg capsuleIndications: mouth 3 (three) 19 Chronic pain syndrome times daily. baclofen 10 mg Take 1 tablet by 90 tablet 5 02/27/20 Active tabletIndications: mouth 3 (three) 19 Chronic pain syndrome times daily. documented as of this encounter [...] drink per day for most women and fried cake maker weight men ? If I am a smoker, stop smoking ? Manage stress by identifying three ways to reduce stress ? [employer] (www.[facility]/[employer]) is an online tool that will allow me to review lab results and portions of my health record, and to communicate with healthcare providers as needed. If I do not have a [employer] account, I will discuss this with my [...] stools and was evaluated by a GI application packaging consultant in [place] about 10 years ago who told her she had then inflammatory bowel disease. However, she has been basically asymptomatic since except for functional bowel symptoms Chronic pain syndrome Overview: As part of the fibromyalgia Rheumatoid arthritis Overview: ICD10 Diagnosis Term Primary Mill Roller Utility documented as of this encounter (statuses [...] arthritis 03/18/2011 04/04/2013 Overview: ICD10 Diagnosis Term Primary Mill Roller Utility Encounter for long-term (current) use of [...] S/p laparoscopic cholecystectomy 09/19/2007 ICD10 Diagnosis Term Primary Mill Roller Utility Calculus of bile duct 09/19/2007 11/29/2007 Overview: S/p laparoscopic cholecystectomy 09/19/2007 ICD10 Diagnosis Term Primary Mill Roller Utility Psoriatic arthropathy 12/29/2011 Overview: On Remicade infusions. Has never received Enbrel or Humira. Rheumatism and fibrositis 10/29/2008 Overview: ICD10 Diagnosis Term Primary Mill Roller Utility Irritable bowel syndrome 12/29/2011 Overview: Has periods of constipation alternating with loose stools off and on. Hypothyroidism 10/05/2015 Overview: ICD10 Diagnosis Term Primary Mill Roller Utility Chronic pain syndrome 12/29/2011 Overview: As [...] Office Visit Pulmonary Disease Simi Veliz DO [address] [place] [address] 04/05/2019 Office Visit Internal Medicine Wally Angulo [address] [place], [place] [address] 04/06/2019 Office Visit Internal Medicine RoshniWally day [address] [place], [place] [address] 04/16/2019 Nurse Visit Pain Medicine Doulatram, Erx 04/17/2019 Office Visit Infectious Disease Sebastian Alberto [address] [id number] [place], [place] [address] 05/14/2019 Nurse Visit Pain Medicine Doulatram, Erx 06/11/2019 Nurse Visit Pain Medicine Doulatram, Erx 07/09/2019 Nurse Visit Pain Medicine Doulatram, Erx 08/06/2019 Nurse Visit Pain Medicine Doulatram, Erx 08/27/2019 Office Visit Pain Medicine Doulatram, MD Ciro [address] [id number] [place], [place] [phone] 09/03/2019 Nurse Visit Pain Medicine Doulatram, Erx [...] of this encounter Implants Implanted Type Area Car Sales Representative Device Identifier Shelf Expiration Model / Serial Date / Lot Hip HIP documented as of this encounter Results Not on filedocumented in this encounter Insurance Payer Benefit Plan / Subscriber ID Effective Dates Phone Address Type Group MEDICARE MEDICARE PART xxxxxxxxxxx 1992-[place] [phone] [address] Medicare A & B t 2 [id number] THI CORTÉS [id number] documented as of this encounter Advance Directives Type Date Recorded Patient Dispatch Clerk Explanation Advance Directives and Living 05/14/2014 1:59 PM Will Power of Crankshaft Balancer 03/07/2015 2:05 PM
--- OUTSIDE RECORDS SUMMARY | 2019-03-20 18:18 | XMS REPORT | Summary of Care ---
:1955 Author Organization [facility] Address [address] [place] [address] Care Team Providers Name Role Phone Wally Angulo Primary Care Provider Wally Angulo Insurance Hmo Bernabe Poe MD Unavailable Sophia Fisher [facility] Lineman Apprentice Unavailable Reason for Visit Reason Comments Refill Request Encounter Details Date Type Department Care Team Description 02/26/2019 Refill [facility] Internal Wally Angulo Refill Request [address] [place] [address] [facility] Carlos Woodard, [address] [place] [address] [phone] Allergies Active Allergy Reactions Severity Noted Date Comments Aripiprazole Unknown - See comments 04/10/2014 Symptoms of tardive dyskinesia Patient states that she is currently taking medication. Quetiapine Fumarate Unknown - See comments 03/05/2014 tremors Sulfasalazine Hives 01/21/2011 documented as of this encounter (statuses as of 02/28/2019) Medications Medication Sig Dispensed Refills Start End Status Date Date MULTIPLE VITAMINS 2 pills a day 0 Active DAILY ORAL TAB fluticasone (FLONASE) Use 1 [place] in 1 Bottle 2 Active 50 mcg/actuation [...] MOUTH ONCE DAILY 019 Hypothyroidism, unspecified type AMLODIPINE 10 mg TAKE 1 TABLET BY [...] INSTILL 1 DROP IN 60 Each 1 02/20/ Active (RESTASIS) 0.05 % BOTH EYES EVERY 12 019 dropsIndications: HOURS Keratoconjunctivitis sicca of both eyes not due to Sjogren's syndrome cycloSPORINE Place 1 Drop in 30 Each 4 02/23/ Active (RESTASIS) 0.05 % both eyes every 12 019 dropsIndications: Dry (twelve) hours. eyes pregabalin (LYRICA) Take 1 capsule by 90 capsule 5 Active 150 mg mouth 3 (three) 019 capsuleIndications: times daily. Chronic pain syndrome baclofen 10 mg Take 1 tablet by 90 tablet 5 Active tabletIndications: mouth 3 (three) 019 Chronic pain syndrome times daily. ZALEPLON 5 mg TAKE 1 CAPSULE BY 30 capsule 0 Active capsuleIndications: MOUTH AT BEDTIME 019 Major depressive NEEDED FOR disorder, recurrent INSOMNIA episode, moderate, Psychophysiological insomnia, Other osteoporosis without current pathological fracture, Vitamin D deficiency, Essential hypertension, benign, Psoriatic arthritis SUMATRIPTAN 25 mg TAKE 1 TABLET BY 9 tablet 0 Active tabletIndications: MOUTH ONCE DAILY 019 Nonintractable NEEDED FOR headache, unspecified MIGRAINE. REPEAT chronicity pattern, IN 2HOURS IF NO unspecified headache RELIEF. MAX 100MG type IN A DAY NO MORE THAN 400MG PER MONTH SUMATRIPTAN 25 mg TAKE 1 TABLET BY 9 tablet 0 tabletIndications: MOUTH ONCE DAILY 019 2019 Nonintractable NEEDED FOR headache, unspecified MIGRAINE. REPEAT chronicity pattern, IN 2HOURS IF NO unspecified headache RELIEF. MAX 100MG type IN A DAY NO MORE THAN 400MG PER MONTH documented as of this encounter (statuses as of 02/28/2019) Active Problems Patient Care Coordination Note Hypertension [...] drink per day for most women and prep person weight men ? If I am a smoker, stop smoking ? Manage stress by identifying three ways to reduce stress ? [employer] (www.[facility]/[employer]) is an online tool that will allow me to review lab results and portions of my health record, and to communicate with healthcare providers as needed. If I do not have a MyChart account, I will discuss this with my [...] stools and was evaluated by a GI data power consultant in [place] about 10 years ago who told her she had then inflammatory bowel disease. However, she has been basically asymptomatic since except for functional bowel symptoms Chronic pain syndrome Overview: As part of the fibromyalgia Rheumatoid arthritis Overview: ICD10 Diagnosis Term Power Line Installer Utility documented as of this encounter (statuses as of 02/28/2019) Resolved Problems Problem Noted Date Resolved Date [...] arthritis 03/18/2011 04/04/2013 Overview: ICD10 Diagnosis Term Power Line Installer Utility Encounter for long-term (current) [...] S/p laparoscopic cholecystectomy 09/19/2007 ICD10 Diagnosis Term Power Line Installer Utility Calculus of bile duct 09/19/2007 11/29/2007 Overview: S/p laparoscopic cholecystectomy 09/19/2007 ICD10 Diagnosis Term Power Line Installer Utility Psoriatic arthropathy 12/29/2011 Overview: On Remicade infusions. Has never received Enbrel or Humira. Rheumatism and fibrositis 10/29/2008 Overview: ICD10 Diagnosis Term Power Line Installer Utility Irritable bowel syndrome 12/29/2011 Overview: Has periods of constipation alternating with loose stools off and on. Hypothyroidism 10/05/2015 Overview: ICD10 Diagnosis Term Power Line Installer Utility Chronic pain syndrome 12/29/2011 Overview: As part of the fibromyalgia Psoriatic arthropathy 01/05/2015 documented as of this encounter (statuses as of 02/28/2019) Immunizations Name Administration Dates Next Due H1n1 [...] Team Description 03/19/2019 Nurse Visit Pain Medicine Doulatram, Erx 03/30/2019 Office Visit Pulmonary Disease Simi Veliz DO [address] [place] [phone] 04/05/2019 Office Visit Internal Medicine Wally Angulo [address] [place], [place] [address] 04/16/2019 Nurse Visit Pain Medicine Doulatram, Erx 04/17/2019 Office Visit Infectious Disease Sebastian Alberto [address] [id number] [place], [place] [phone] 05/14/2019 Nurse Visit Pain Medicine Doulatram, Erx 06/11/2019 Nurse Visit Pain Medicine Doulatram, Erx 07/09/2019 Nurse Visit Pain Medicine Doulatram, Erx 08/06/2019 Nurse Visit Pain Medicine Doulatram, Erx 08/27/2019 Office Visit Pain Medicine Doulatram, MD Ciro [address] [id number] [place], [place] [address] 09/03/2019 Nurse Visit Pain Medicine Doulatram, Erx [...] of this encounter Implants Implanted Type Area Methods Specialist Engineer Device Identifier Shelf Expiration Model / Serial Date / Lot Hip HIP documented as of this encounter Results Not on filedocumented in this encounter Visit Diagnoses Diagnosis Major depressive disorder, recurrent episode, moderate Psychophysiological insomnia Persistent disorder of initiating or maintaining sleep Other osteoporosis without current pathological fracture Vitamin D deficiency Unspecified vitamin D deficiency Essential hypertension, benign Psoriatic arthritis Psoriatic arthropathy Nonintractable headache, unspecified chronicity pattern, unspecified headache type documented in this encounter Insurance Payer Benefit Plan / Subscriber ID Effective Dates Phone Address Type Group MEDICARE MEDICARE PART xxxxxxxxxxx 1992-[place] [phone] [address] [facility] Medicare A & B t 2 [id number] JENNY CRYSTAL RIVERTHI [id number] documented as of this encounter Advance Directives Type Date Recorded Patient Manager Fashion Explanation Advance Directives and Living 05/14/2014 1:59 PM Will Power of Managed Care Manager 03/07/2015 2:05 PM
--- OUTSIDE RECORDS SUMMARY | 2019-03-20 18:18 | XMS REPORT | Summary of Care ---
:1955 Author Organization [facility] Address [address] [place] [address] Care Team Providers Name Role Phone Wally Angulo Primary Care Provider Wally Angulo Insurance Hmo Bernabe Poe MD Unavailable Sophia Fisher [facility] Electric Container Tester Unavailable Reason for Referral (Routine) Status Reason Specialty Diagnoses / Referred By Referred To Procedures Contact Contact New Request Neurology Diagnoses Chronic migraine Doulatram, Procedures CONSULT/REFERRAL NEUROLOGY MD Ciro [address] [facility] [id number] [place] [address] Reason for Visit Reason Comments Pain Encounter Details Date Type Department Care Team Description 02/26/2019 Office Visit [facility] Anesthesia Doulatram, Chronic pain syndrome (Primary Dx); Pain-[facility] Multispecialty MD Ciro Psoriatic arthropathy; Ctr 301 [facility] Arthritis/arthropathy of multiple joints; [address] [place] [address] [id number] Contracture of multiple joints; [place], [place] Chronic migraine [id number] [phone] Allergies Active Allergy Reactions Severity Noted Date [...] DAILY ORAL TAB fluticasone (FLONASE) Use 1 [place] in 1 Bottle 2 Active 50 mcg/actuation [...] drink per day for most women and tow 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 If I am a smoker, stop smoking ? Manage stress by identifying three ways to reduce stress ? [employer] (www.[facility]/[employer]) is an online tool that will allow me to review lab results and portions of my health record, and to communicate with healthcare providers as needed. If I do not have a [employer] account, I will discuss this with my [...] and was evaluated by a GI senior environmental consultant in [place] about 10 years ago who told her she had then inflammatory bowel disease. However, she has been basically asymptomatic since except for functional bowel symptoms Chronic pain syndrome Overview: As part of the fibromyalgia Rheumatoid arthritis Overview: ICD10 Diagnosis Term Aviculturist Utility documented as of this encounter (statuses [...] arthritis 03/18/2011 04/04/2013 Overview: ICD10 Diagnosis Term Aviculturist Utility Encounter for long-term (current) use of [...] S/p laparoscopic cholecystectomy 09/19/2007 ICD10 Diagnosis Term Aviculturist Utility Calculus of bile duct 09/19/2007 11/29/2007 Overview: S/p laparoscopic cholecystectomy 09/19/2007 ICD10 Diagnosis Term Aviculturist Utility Psoriatic arthropathy 12/29/2011 Overview: On Remicade infusions. Has never received Enbrel or Humira. Rheumatism and fibrositis 10/29/2008 Overview: ICD10 Diagnosis Term Aviculturist Utility Irritable bowel syndrome 12/29/2011 Overview: Has periods of constipation alternating with loose stools off and on. Hypothyroidism 10/05/2015 Overview: ICD10 Diagnosis Term Aviculturist Utility Chronic pain syndrome 12/29/2011 Overview: As [...] was last seen 08/21/2018 when shereported that Modanisa was working well for her. She was [...] 25 mcg/hr patch q72h - as directed -Overbrook 10/325 mg q4hr prn - usually 3/day [...] Cymbalta NSAIDS: Naproxen, Mobic, Celebrex, Ibuprofen Opioids: [place]brook, Tylenol 3, Tramadol, Fentanyl patches Others: Diclofenac [...] (FLONASE) 50 mcg/actuation nasal spray Use 1 [place] in each nostril daily. 1 Bottle 2 [...] and was evaluated by a GI senior environmental consultant in [place] about 10 years ago who told her [...] -Patient used to have a neurologist in [place]; will refer to neurology for evaluation for [...] prescriptions at that time. Pain contract and GROUNDS KEEPER reviewed 02/26/2019. Follow Up: ERX q 4 weeks from 02/19/19. RTC 6 months Yordy Braun MD PGY-2, Anesthesiology Pager: [phone] 02/26/2019 2:34 PM After discussion with Dr [...] Visit Pulmonary Disease Simi Veliz DO [address] [place] [address] [phone] 04/05/2019 Office Visit Internal Medicine Wally Angulo [address] [place] [address] [phone] 04/06/2019 Office Visit Internal Medicine Wally Angulo [address] [place], [place] [address] 04/16/2019 Nurse Visit Pain Medicine Doulatram, Erx 04/17/2019 Office Visit Infectious Disease Sebastian Alberto [address] [id number] [place], [place] [address] 05/14/2019 Nurse Visit Pain Medicine Doulatram, Erx 06/11/2019 Nurse Visit Pain Medicine Doulatram, Erx 07/09/2019 Nurse Visit Pain Medicine Doulatram, Erx 08/06/2019 Nurse Visit Pain Medicine Doulatram, Erx 08/27/2019 Office Visit Pain Medicine Doulatram, MD Ciro [address] [id number] [place], [place] [phone] 09/03/2019 Nurse Visit Pain Medicine Doulatram, Erx [...] of this encounter Implants Implanted Type Area First Cook Device Identifier Shelf Expiration Model / Serial [...] BOX Medicare A & B t 2 [id number] THI CORTÉS [id number] documented as of this encounter Advance Directives Type Date Recorded Patient Inspector Missile Explanation Advance Directives and Living 05/14/2014 1:59 PM Will Power of Technical Service Specialist 03/07/2015 2:05 PM
--- OUTSIDE RECORDS SUMMARY | 2019-03-20 18:19 | XMS REPORT | Summary of Care ---
:1955 Author Organization [facility] Address [address] [place] [address] Care Team Providers Name Role Phone Wally Angulo Primary Care Provider Wally Angulo Insurance Hmo Bernabe Poe MD Unavailable Sophia Fisher [facility] Desulfurizer Operator Unavailable Reason for Visit Reason Comments Refill Request Encounter Details Date Type Department Care Team Description 02/27/2019 Refill [facility] Internal Wally Angulo Refill Request [address] [place] [address] [facility] Carlos Woodard, [address] [place] [address] [phone] Allergies Active Allergy Reactions Severity Noted Date [...] DAILY ORAL TAB fluticasone (FLONASE) Use 1 [place] in 1 Bottle 2 Active 50 mcg/actuation [...] daily. 019 mcg/actuation inhalerIndications: Dyspnea, unspecified type metoclopramide HCl 5 Take 1 tablet by [...] DAY NO MORE THAN 400MG PER MONTH CELECOXIB 200 mg TAKE 1 CAPSULE BY 30 capsule 0 Active capsuleIndications: MOUTH DAILY 019 Psoriatic arthritis, Psoriasis, Chronic pain syndrome, Seizure disorder LORAZEPAM 0.5 mg TAKE 1 TABLET BY 60 tablet 0 Active tabletIndications: MOUTH TWICE DAILY 019 Anxiety NEEDED FOR ANXIETY celecoxib 200 mg Take 1 capsule by 30 capsule 3 2 capsuleIndications: mouth daily. 019 2019 Psoriatic arthritis, Psoriasis, Chronic pain syndrome, Seizure disorder documented as of this encounter (statuses as [...] drink per day for most women and racing manager weight men ? If I am a smoker, stop smoking ? Manage stress by identifying three ways to reduce stress ? [employer] (www.[facility]/[employer]) is an online tool that will allow [...] exam with routine gynecological exam 03/11/2015 terminal superintendent current use of opiate analgesic 03/11/2015 Personal [...] stools and was evaluated by a GI it infrastructure consultant in [place] about 10 years ago who told her she had then inflammatory bowel disease. However, she has been basically asymptomatic since except for functional bowel symptoms Chronic pain syndrome Overview: As part of the fibromyalgia Rheumatoid arthritis Overview: ICD10 Diagnosis Term Adjunct Business Instructor Utility documented as of this encounter (statuses [...] arthritis 03/18/2011 04/04/2013 Overview: ICD10 Diagnosis Term Adjunct Business Instructor Utility Encounter for long-term (current) use of [...] S/p laparoscopic cholecystectomy 09/19/2007 ICD10 Diagnosis Term Adjunct Business Instructor Utility Calculus of bile duct 09/19/2007 11/29/2007 Overview: S/p laparoscopic cholecystectomy 09/19/2007 ICD10 Diagnosis Term Adjunct Business Instructor Utility Psoriatic arthropathy 12/29/2011 Overview: On Remicade infusions. Has never received Enbrel or Humira. Rheumatism and fibrositis 10/29/2008 Overview: ICD10 Diagnosis Term Adjunct Business Instructor Utility Irritable bowel syndrome 12/29/2011 Overview: Has periods of constipation alternating with loose stools off and on. Hypothyroidism 10/05/2015 Overview: ICD10 Diagnosis Term Adjunct Business Instructor Utility Chronic pain syndrome 12/29/2011 Overview: As [...] Doulatram, Erx 03/30/2019 Office Visit Pulmonary Disease VelizRonaldoalthea, DO [address] [place] [phone] 04/05/2019 Office Visit Internal Medicine Wally Angulo [address] [place], [place] [address] 04/16/2019 Nurse Visit Pain Medicine Doulatram, Erx 04/17/2019 Office Visit Infectious Disease Sebastian Alberto Kendy [address] [id number] [place], [place] [address] 05/14/2019 Nurse Visit Pain Medicine Doulatram, Erx 06/11/2019 Nurse Visit Pain Medicine Doulatram, Erx 07/09/2019 Nurse Visit Pain Medicine Doulatram, Erx 08/06/2019 Nurse Visit Pain Medicine Doulatram, Erx 08/27/2019 Office Visit Pain Medicine Doulatram, MD Ciro [address] [id number] [place], [place] [phone] 09/03/2019 Nurse Visit Pain Medicine Doulatram, Erx [...] of this encounter Implants Implanted Type Area Block Cutter Device Identifier Shelf Expiration Model / Serial Date / Lot Hip HIP documented as of this encounter Results Not on filedocumented in this encounter Visit Diagnoses Diagnosis Psoriatic arthritis Psoriatic arthropathy Psoriasis Other psoriasis Chronic pain syndrome Seizure disorder Unspecified epilepsy without mention of intractable epilepsy Anxiety Anxiety state, unspecified documented in this encounter Insurance Payer Benefit Plan / Subscriber ID Effective Dates Phone Address Type Group MEDICARE MEDICARE PART xxxxxxxxxxx 1992-[place] [phone] [address] Medicare A & B t 2 [id number] HTI CORTÉS [id number] documented as of this encounter Advance Directives Type Date Recorded Patient Weigher Alloy Explanation Advance Directives and Living 05/14/2014 1:59 PM Will Power of Wharf Hand 03/07/2015 2:05 PM
--- OUTSIDE RECORDS SUMMARY | 2019-03-20 18:19 | XMS REPORT | Summary of Care ---
:1955 Author Organization [facility] - [facility] Address [address] [place] [address] Care Team Providers Name Role Phone Wally Angulo Primary Care Provider Wally Angulo Insurance Hmo Bernabe Poe MD Unavailable Sophia Fisher [facility] [place] Abstractor Unavailable Encounter Details Date Type Department Care Team Description 01/30/2019 Patient Secure Wag [facility] MyChart Messages Doctor Unassigned, [address] [place] [address] [place] [address] [place] [address] [place] [address] Allergies Active Allergy Reactions Severity Noted Date Comments Aripiprazole Unknown - See comments 04/10/2014 Symptoms of tardive dyskinesia Patient states that she is currently taking medication. Quetiapine Fumarate Unknown - See comments 03/05/2014 tremors Sulfasalazine Hives 01/21/2011 documented as of this encounter (statuses as of 03/03/2019) Medications Medication Sig Dispensed Refills Start End Status Date Date MULTIPLE VITAMINS DAILY 2 pills a day 0 Active ORAL TAB fluticasone (FLONASE) Use 1 [place] in each 1 Bottle 2 Active 50 [...] MOUTH BEFORE MEALS 9 AND AT BEDTIME OTEZLA STARTER 10 mg 0 Active (4)-20 mg (4)-30 mg 9 (47) DsPk cyanocobalamin (VITAMIN 1 mL by 30 mL 0 Active B-12) 1,000 mcg/mL Intramuscular route 9 injectionIndications: weekly. Osteopenia of both hips TRAZODONE [...] daily. 9 mcg/actuation inhalerIndications: Dyspnea, unspecified type metoclopramide HCl 5 mg Take 1 tablet [...] MOUTH ONCE DAILY 9 Hypothyroidism, unspecified type AMLODIPINE 10 mg tablet TAKE 1 TABLET BY 90 tablet 1 Active MOUTH DAILY 9 documented as of this encounter (statuses as of 03/03/2019) Active Problems Patient Care Coordination Note Hypertension [...] drink per day for most women and staff midwife weight men ? If I am a smoker, stop smoking ? Manage stress by identifying three ways to reduce stress ? [employer] ([email or web address]) is an online tool that will allow me to review lab results and portions of my health record, and to communicate with healthcare providers as needed. If I do not have a [employer] account, I will discuss this with my [...] with routine gynecological exam 03/11/2015 long term current use of opiate analgesic 03/11/2015 Personal [...] by a GI application packaging consultant in [place] about 10 years ago who told her she had then inflammatory bowel disease. However, she has been basically asymptomatic since except for functional bowel symptoms Chronic pain syndrome Overview: As part of the fibromyalgia Rheumatoid arthritis Overview: ICD10 Diagnosis Term Online Affiliate Marketing Manager Utility documented as of this encounter (statuses as of 03/03/2019) Resolved Problems Problem Noted Date Resolved Date [...] arthritis 03/18/2011 04/04/2013 Overview: ICD10 Diagnosis Term Online Affiliate Marketing Manager Utility Encounter for long-term (current) use [...] S/p laparoscopic cholecystectomy 09/19/2007 ICD10 Diagnosis Term Online Affiliate Marketing Manager Utility Calculus of bile duct 09/19/2007 11/29/2007 Overview: S/p laparoscopic cholecystectomy 09/19/2007 ICD10 Diagnosis Term Online Affiliate Marketing Manager Utility Psoriatic arthropathy 12/29/2011 Overview: On Remicade infusions. Has never received Enbrel or Humira. Rheumatism and fibrositis 10/29/2008 Overview: ICD10 Diagnosis Term Online Affiliate Marketing Manager Utility Irritable bowel syndrome 12/29/2011 Overview: Has periods of constipation alternating with loose stools off and on. Hypothyroidism 10/05/2015 Overview: ICD10 Diagnosis Term Online Affiliate Marketing Manager Utility Chronic pain syndrome 12/29/2011 Overview: As part of the fibromyalgia Psoriatic arthropathy 01/05/2015 documented as of this encounter (statuses as of 03/03/2019) Immunizations Name Administration Dates Next Due H1n1 [...] Treatment Date Type Specialty Care Team Description 03/06/2019 Appointment Radiology Radiology [address] [place] [address], [place] [address] 03/19/2019 Nurse Visit Pain Medicine Fede Villanueva 03/30/2019 Office Visit Pulmonary Disease Simi Veliz DO [address] [place] [address] 04/05/2019 Office Visit Internal Medicine Roshnibarb Wally Noyola [address] [address] [place] [address] [phone] 04/16/2019 Nurse Visit Pain Medicine Doulatram, Erx 04/17/2019 Office Visit Infectious Disease Sebastian Alberto Kendy [address] [facility] [id number] [place] [address] [phone] 05/14/2019 Nurse Visit Pain Medicine Doulatram, Erx 06/11/2019 Nurse Visit Pain Medicine Doulatram, Erx 07/09/2019 Nurse Visit Pain Medicine Doulatram, Erx 08/06/2019 Nurse Visit Pain Medicine Doulatram, Erx 08/27/2019 Office Visit Pain Medicine DoulatramCiro MD [address] [facility] [address] [place] [address] [phone] 09/03/2019 Nurse Visit Pain Medicine Doulatram, Erx [...] of this encounter Implants Implanted Type Area Ferryboat Operator Helper Device Identifier Shelf Expiration Model / Serial Date / Lot Hip HIP documented as of this encounter Results Not on filedocumented in this encounter Insurance Payer Benefit Plan / Subscriber ID Effective Dates Phone Address Type Group MEDICARE MEDICARE PART xxxxxxxxxxx 1992-[place] [phone] 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
--- OUTSIDE RECORDS SUMMARY | 2019-03-20 18:19 | XMS REPORT | Summary of Care ---
:1955 Author Organization [facility] Address [address] [place] [address] Care Team Providers Name Role Phone Wally Angulo Primary Care Provider Wally Angulo Insurance Hmo Bernabe Poe MD Unavailable Sophia Fisher [facility] Garbage Truck Dispatcher Unavailable Reason for Visit Reason Comments Notification Encounter Details Date Type Department Care Team Description 03/06/2019 Telephone [facility] Internal Wally Angulo Notification [address] [place] [address] [place], [place] [address]lindsay Woodard, [phone] [facility] [address] Allergies Active Allergy Reactions Severity Noted Date Comments Aripiprazole Unknown - See comments 04/10/2014 Symptoms of tardive dyskinesia Patient states that she is currently taking medication. Quetiapine Fumarate Unknown - See comments 03/05/2014 tremors Sulfasalazine Hives 01/21/2011 documented as of this encounter (statuses as of 03/06/2019) Medications Medication Sig Dispensed Refills Start End Status Date Date MULTIPLE VITAMINS DAILY 2 pills a day 0 Active ORAL TAB fluticasone (FLONASE) 50 Use 1 [place] in each 1 Bottle 2 10/16/20 Active mcg/actuation nasal nostril daily. 14 spray [...] daily. 19 mcg/actuation inhalerIndications: Dyspnea, unspecified type metoclopramide HCl [...] MOUTH ONCE DAILY 19 Hypothyroidism, unspecified type AMLODIPINE 10 mg tablet [...] Take 1 capsule by 90 capsule 5 02/27/20 Active mg capsuleIndications: mouth 3 (three) 19 Chronic pain syndrome times daily. baclofen 10 mg Take 1 tablet by 90 tablet 5 02/27/20 Active tabletIndications: mouth 3 (three) 19 Chronic pain syndrome times daily. ZALEPLON 5 mg TAKE 1 CAPSULE BY 30 capsule 0 02/29/20 Active capsuleIndications: MOUTH AT BEDTIME 19 Major depressive NEEDED FOR INSOMNIA disorder, recurrent episode, moderate, Psychophysiological insomnia, Other osteoporosis without current pathological fracture, Vitamin D deficiency, Essential hypertension, benign, Psoriatic arthritis SUMATRIPTAN 25 mg TAKE 1 TABLET BY 9 tablet 0 02/29/20 Active tabletIndications: MOUTH ONCE DAILY 19 Nonintractable headache, NEEDED FOR MIGRAINE. unspecified chronicity REPEAT IN 2HOURS IF pattern, unspecified NO RELIEF. MAX 100MG headache type IN A DAY NO MORE THAN 400MG PER MONTH CELECOXIB 200 mg TAKE 1 CAPSULE BY 30 capsule 0 02/29/20 Active capsuleIndications: MOUTH DAILY 19 Psoriatic arthritis, Psoriasis, Chronic pain syndrome, Seizure disorder LORAZEPAM 0.5 mg TAKE 1 TABLET BY 60 tablet 0 02/29/20 Active tabletIndications: MOUTH TWICE DAILY 19 Anxiety NEEDED FOR ANXIETY documented as of this encounter (statuses as of 03/06/2019) Active Problems Patient Care Coordination Note Hypertension [...] drink per day for most women and ancillary services manager therapy weight men ? If I am a smoker, stop smoking ? Manage stress by identifying three ways to reduce stress ? [employer] (www.[facility]/[employer]) is an online tool that will allow me to review lab results and portions of my health record, and to communicate with healthcare providers as needed. 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 However, she has been basically asymptomatic since except for functional bowel symptoms Chronic pain syndrome Overview: As part of the fibromyalgia Rheumatoid arthritis Overview: ICD10 Diagnosis Term Design Intern Utility documented as of this encounter (statuses as of 03/06/2019) Resolved Problems Problem Noted Date Resolved Date [...] arthritis 03/18/2011 04/04/2013 Overview: ICD10 Diagnosis Term Design Intern Utility Encounter for long-term (current) use of [...] S/p laparoscopic cholecystectomy 09/19/2007 ICD10 Diagnosis Term Design Intern Utility Calculus of bile duct 09/19/2007 11/29/2007 Overview: S/p laparoscopic cholecystectomy 09/19/2007 ICD10 Diagnosis Term Design Intern Utility Psoriatic arthropathy 12/29/2011 Overview: On Remicade infusions. Has never received Enbrel or Humira. Rheumatism and fibrositis 10/29/2008 Overview: ICD10 Diagnosis Term Design Intern Utility Irritable bowel syndrome 12/29/2011 Overview: Has periods of constipation alternating with loose stools off and on. Hypothyroidism 10/05/2015 Overview: ICD10 Diagnosis Term Design Intern Utility Chronic pain syndrome 12/29/2011 Overview: As part of the fibromyalgia Psoriatic arthropathy 01/05/2015 documented as of this encounter (statuses as of 03/06/2019) Immunizations Name Administration Dates Next Due H1n1 [...] Visit Pulmonary Disease Simi Veliz DO [address] [place] [phone] 04/05/2019 Office Visit Internal Medicine Wally Angulo [address] [place], [place] [address] 04/16/2019 Nurse Visit Pain Medicine Doulatram, Erx 04/17/2019 Office Visit Infectious Disease DollySebastian lazaro [id number] [place], [place] [id number] 05/14/2019 Nurse Visit Pain Medicine Doulatram, Erx 06/11/2019 Nurse Visit Pain Medicine Doulatram, Erx 07/09/2019 Nurse Visit Pain Medicine Doulatram, Erx 08/06/2019 Nurse Visit Pain Medicine Doulatram, Erx 08/27/2019 Office Visit Pain Medicine Doulatram, MD Ciro [id number] [place], [place] [phone] 09/03/2019 Nurse Visit Pain Medicine Doulatram, Erx [...] of this encounter Implants Implanted Type Area Foam Rubber Molder Device Identifier Shelf Expiration Model / Serial Date / Lot Hip HIP documented as of this encounter Results Not on filedocumented in this encounter Insurance Payer Benefit Plan / Subscriber ID Effective Dates Phone Address Type Group MEDICARE MEDICARE PART xxxxxxxxxxx 1992-[place] [phone] [address] Medicare A & B t 2 [id number] THI CORT[place] [id number] documented as of this encounter Advance Directives Type Date Recorded Patient Practice Performance Manager Explanation Advance Directives and Living 05/14/2014 1:59 PM Will Power of Personalization Specialist 03/07/2015 2:05 PM
--- OUTSIDE RECORDS SUMMARY | 2019-03-20 18:20 | XMS REPORT | Summary of Care ---
:1955 Author Organization [facility] - [facility] Address [address] [place] [address] Care Team Providers Name Role Phone Wally Angulo Primary Care Provider Wally Angulo Insurance Hmo Bernabe Poe MD Unavailable Sophia Fisher [facility] [place] Unavailable Encounter Details Date Type Department Care Team Description 03/01/2019 Orders Only [facility] Doctor Unassigned, No [address] [facility] [place] [address] [address] [place] [address] Allergies Active Allergy Reactions Severity Noted Date Comments Aripiprazole Unknown - See comments 04/10/2014 Symptoms of tardive dyskinesia Patient states that she is currently taking medication. Quetiapine Fumarate Unknown - See comments 03/05/2014 tremors Sulfasalazine Hives 01/21/2011 documented as of this encounter (statuses as of 03/07/2019) Medications Medication Sig Dispensed Refills Start End Status Date Date MULTIPLE VITAMINS DAILY 2 pills a day 0 Active ORAL TAB fluticasone (FLONASE) 50 Use 1 [place] in each 1 Bottle 2 04/25/20 Active [...] as of this encounter (statuses as of 03/07/2019) Active Problems Patient Care Coordination Note Hypertension [...] drink per day for most women and motor vehicle light assembler weight men ? If I am a smoker, stop smoking ? Manage stress by identifying three ways to reduce stress ? [employer] (www.[facility]/[employer]) is an online tool that will allow me to review lab results and portions of my health record, and to communicate with healthcare providers as needed. If I do not have a [employer] account, I will discuss this with my [...] stools and was evaluated by a GI sales consultant in [place] about 10 years ago who told her she had then inflammatory bowel disease. However, she has been basically asymptomatic since except for functional bowel symptoms Chronic pain syndrome Overview: As part of the fibromyalgia Rheumatoid arthritis Overview: ICD10 Diagnosis Term Machinist Helper Marine Utility documented as of this encounter (statuses as of 03/07/2019) Resolved Problems Problem Noted Date Resolved Date [...] arthritis 03/18/2011 04/04/2013 Overview: ICD10 Diagnosis Term Machinist Helper Marine Utility Encounter for long-term (current) use of [...] S/p laparoscopic cholecystectomy 09/19/2007 ICD10 Diagnosis Term Machinist Helper Marine Utility Calculus of bile duct 09/19/2007 11/29/2007 Overview: S/p laparoscopic cholecystectomy 09/19/2007 ICD10 Diagnosis Term Machinist Helper Marine Utility Psoriatic arthropathy 12/29/2011 Overview: On Remicade infusions. Has never received Enbrel or Humira. Rheumatism and fibrositis 10/29/2008 Overview: ICD10 Diagnosis Term Machinist Helper Marine Utility Irritable bowel syndrome 12/29/2011 Overview: Has periods of constipation alternating with loose stools off and on. Hypothyroidism 10/05/2015 Overview: ICD10 Diagnosis Term Machinist Helper Marine Utility Chronic pain syndrome 12/29/2011 Overview: As part of the fibromyalgia Psoriatic arthropathy 01/05/2015 documented as of this encounter (statuses as of 03/07/2019) Immunizations Name Administration Dates Next Due H1n1 [...] Office Visit Pulmonary Disease Simi Veliz DO [address] [place] [address] 04/05/2019 Office Visit Internal Medicine Kev Wally Noyola [address] [address] [address] [place] [address] [phone] 04/16/2019 Nurse Visit Pain Medicine Doulatram, Erx 04/17/2019 Office Visit Infectious Disease Dolly Sebastian Larry [id number] [place] [address] [phone] 05/14/2019 Nurse Visit Pain Medicine Doulatram, Erx 06/11/2019 Nurse Visit Pain Medicine Doulatram, Erx 07/09/2019 Nurse Visit Pain Medicine Doulatram, Erx 08/06/2019 Nurse Visit Pain Medicine Doulatram, Erx 08/27/2019 Office Visit Pain Medicine Doulatram, MD Ciro [id number] [place], [place] [address] 09/03/2019 Nurse Visit Pain Medicine Doulatram, Erx [...] of this encounter Implants Implanted Type Area Emergency Room Physician Device Identifier Shelf Expiration Model / Serial Date / Lot Hip HIP documented as of this encounter Procedures Procedure Name Priority Date/Time Associated Diagnosis Comments HOME HEALTH - OTHER Routine 03/01/2019 12:01 AM CDT documented in this encounter Results Not on filedocumented in this encounter Insurance Payer Benefit Plan / Subscriber ID Effective Dates Phone Address Type Group MEDICARE MEDICARE PART xxxxxxxxxxx 1992-[place] [phone] 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
--- OUTSIDE RECORDS SUMMARY | 2019-03-20 18:20 | XMS REPORT | Summary of Care ---
:1955 Author Organization [facility] Address [address] [place] [address] Care Team Providers Name Role Phone Wally Angulo Primary Care Provider Wally Angulo Insurance Hmo Bernabe Poe MD Unavailable Sophia Fisher [facility] Consumer Services Advisor Unavailable Reason for Referral (Routine) Status Reason Specialty Diagnoses / Procedures Referred By Referred To Contact Contact Closed Diagnostic Diagnoses Nausea and vomiting, intractability of vomiting not specified, unspecified vomiting type Gastroesophageal reflux disease, esophagitis presence not specified [facility] Procedures FL UPPER GI SERIES [address] [address] (Routine) Status Reason Specialty Diagnoses / Procedures Referred By Referred To Contact Contact Closed Diagnostic Diagnoses Nausea and vomiting, intractability of vomiting not specified, unspecified vomiting type Gastroesophageal reflux disease, esophagitis presence not specified [facility] Procedures FL UPPER GI SERIES [address] [address] Reason for Visit (Routine) Status Reason Specialty Diagnoses / Procedures Referred By Referred To Contact Contact Closed Diagnostic Diagnoses Nausea and vomiting, intractability of vomiting not specified, unspecified vomiting type Gastroesophageal reflux disease, esophagitis presence not specified [facility] Procedures FL UPPER GI SERIES [address] [facility] [address] [place] [address] Encounter Details Date Type Department Care Team Description 03/06/2019 Hospital Encounter [facility] Arrived [facility] [address] [place] [address] [address] [facility] ARETHA Luevano [address] [place] [address] Allergies Active Allergy Reactions Severity Noted Date [...] ORAL TAB fluticasone (FLONASE) 50 Use 1 [place] in each 1 Bottle 2 04/25/20 Active [...] drink per day for most women and line construction superintendent weight men ? If I am a smoker, stop smoking ? Manage stress by identifying three ways to reduce stress ? [employer] (www.[email or web address]/[employer]) is an online tool that will allow me to review lab results and portions of my health record, and to communicate with healthcare providers as needed. If I do not have a [employer] account, I will discuss this with my [...] woman exam with routine gynecological exam 03/11/2015 retirement current use of opiate analgesic 03/11/2015 Personal [...] stools and was evaluated by a GI showroom consultant in [place] about 10 years ago who told her she had then inflammatory bowel disease. However, she has been basically asymptomatic since except for functional bowel symptoms Chronic pain syndrome Overview: As part of the fibromyalgia Rheumatoid arthritis Overview: ICD10 Diagnosis Term Budget Examiner Utility documented as of this encounter (statuses [...] arthritis 03/18/2011 04/04/2013 Overview: ICD10 Diagnosis Term Budget Examiner Utility Encounter for long-term (current) use of [...] S/p laparoscopic cholecystectomy 09/19/2007 ICD10 Diagnosis Term Budget Examiner Utility Calculus of bile duct 09/19/2007 11/29/2007 Overview: S/p laparoscopic cholecystectomy 09/19/2007 ICD10 Diagnosis Term Budget Examiner Utility Psoriatic arthropathy 12/29/2011 Overview: On Remicade infusions. Has never received Enbrel or Humira. Rheumatism and fibrositis 10/29/2008 Overview: ICD10 Diagnosis Term Budget Examiner Utility Irritable bowel syndrome 12/29/2011 Overview: Has periods of constipation alternating with loose stools off and on. Hypothyroidism 10/05/2015 Overview: ICD10 Diagnosis Term Budget Examiner Utility Chronic pain syndrome 12/29/2011 Overview: As [...] Visit Pulmonary Disease Simi Veliz, DO [address] [place] [phone] 04/05/2019 Office Visit Internal Medicine Wally Angulo [address] [place], [place] [address] 04/16/2019 Nurse Visit Pain Medicine Doulatram, Erx 04/17/2019 Office Visit Infectious Disease Sebastian Alberto [id number] [place], [place] [address] 05/14/2019 Nurse Visit Pain Medicine Doulatram, Erx 06/11/2019 Nurse Visit Pain Medicine Doulatram, Erx 07/09/2019 Nurse Visit Pain Medicine Doulatram, Erx 08/06/2019 Nurse Visit Pain Medicine Doulatram, Erx 08/27/2019 Office Visit Pain Medicine Doulatram, Ciro, MD [id number] [place], [place] [address] 09/03/2019 Nurse Visit Pain Medicine Fede Villanueva Health Maintenance Due Date Last Done Comments [...] of this encounter Implants Implanted Type Area Flame Cutting Machine Operator Device Identifier Shelf Expiration Model / Serial Date / Lot Hip HIP documented as of this encounter Procedures Procedure Name Priority Date/Time Associated Diagnosis Comments FL UPPER GI SERIES Routine 03/06/2019 10:14 Nausea and vomiting, Results for this AM CDT intractability of procedure are in vomiting not the results specified, unspecified section. vomiting type Gastroesophageal reflux disease, esophagitis presence not specified CONSENT/REFUSAL FOR Routine 03/06/2019 9:11 DIAGNOSIS AND AM CDT TREATMENT ASSIGNMENT OF Routine 03/06/2019 9:11 BENEFITS AM CDT documented in this encounter Results FL UPPER GI SERIES (03/06/2019 10:14 AM CDT) Specimen Narrative Performed At HISTORY: Nausea, vomiting. PACS/VR/DOSE TECHNIQUE: Upper GI series is completed using barium and gas producing particles. Multiple digital spot images of the gastroesophageal junction, stomach, duodenum and proximal jejunum are obtained the patient in several different positions. FINDINGS: Swallowing function appear normal, however, there was delayed emptying of barium from the lower esophagus into the stomach with mild gastroesophageal reflux also noted. Postoperative changes of gastric bypass surgery noted. Small amount of barium noted refluxing through the gastrojejunostomy site. A filling defect is seen in the small portion of herniated fundus of the stomach into the chest which could be retained food material. Very small amount of barium noted entering the main gastric chamber. The Sara-en-Y anastomotic site is not clearly visualized but I do not see any ulceration or obstruction at the anastomotic site. CONCLUSIONS: 1. Sara-en-Y gastrojejunostomy surgical changes with minimal barium noted entering into the main gastric chamber. Fundus portion of the stomach appears to be herniated within the chest with a filling defect which could be either thickened mucosal folds and/or retained food material. 2. Mild gastroesophageal reflux, sluggish peristalsis in the lower esophagus and mild reflux of barium from the jejunum into the fundus of the stomach. Procedure Note [facility], Radiant Results Inft User - 03/06/2019 10:25 AM CDT HISTORY: Nausea, vomiting. TECHNIQUE: Upper GI series is completed using barium and gas producing particles. Multiple digital spot images of the gastroesophageal junction, stomach, duodenum and proximal jejunum are obtained the patient in several different positions. FINDINGS: Swallowing function appear normal, however, there was delayed emptying of barium from the lower esophagus into the stomach with mild gastroesophageal reflux also noted. Postoperative changes of gastric bypass surgery noted. Small amount of barium noted refluxing through the gastrojejunostomy site. A filling defect is seen in the small portion of herniated fundus of the stomach into the chest which could be retained food material. Very small amount of barium noted entering the main gastric chamber. The Sara-en-Y anastomotic site is not clearly visualized but I do not see any ulceration or obstruction at the anastomotic site. CONCLUSIONS: 1. Sara-en-Y gastrojejunostomy surgical changes with minimal barium noted entering into the main gastric chamber. Fundus portion of the stomach appears to be herniated within the chest with a filling defect which could be either thickened mucosal folds and/or retained food material. 2. Mild gastroesophageal reflux, sluggish peristalsis in the lower esophagus and mild reflux of barium from the jejunum into the fundus of the stomach. Performing Organization Address City/State/Zipcode Phone Number PACS/VR/DOSE documented in this encounter Visit Diagnoses Diagnosis Nausea and vomiting, intractability of vomiting not specified, unspecified vomiting type Gastroesophageal reflux disease, esophagitis presence not specified documented in this encounter Administered Medications Medication Order MAR Action Action Date Dose Rate Site barium sulfate (LIQUID E-Z PAQUE) Given 03/06/2019 9:40 AM CDT 340 g 60 % (w/v) oral suspension 340 g 340 g, Oral, ONCE, 1 dose, 03/06/19 at 1030, Routine documented in this encounter Insurance Payer Benefit Plan / Subscriber ID Effective Dates Phone Address Type Group MEDICARE MEDICARE PART xxxxxxxxxxx 1993[place] [phone] Medicare [address] & B t 2 [id number] [place] [id number] documented as of this encounter Advance Directives Type Date Recorded Patient Hotshot Superintendent Explanation Advance Directives and Living 05/14/2014 1:59 PM Will Power of Brim Pouncer 03/07/2015 2:05 PM
--- OUTSIDE RECORDS SUMMARY | 2019-03-20 18:21 | XMS REPORT | Summary of Care ---
:1955 Author Organization [facility] Address [address] [place] [address] Care Team Providers Name Role Phone Wally Angulo Primary Care Provider Wally Angulo Insurance Hmo Bernabe Poe MD Unavailable Sophia Fisher [facility] Winder Fixer Unavailable Reason for Visit Reason Comments Notification Patient calling to inform she saw her Gastro doctor and he suggest surgery. would like to speak to about the surgery. Please advise [phone] Results Fluoroscopy upper GI Encounter Details Date Type Department Care Team Description 03/02/2019 Telephone [facility] Internal Wally Angulo Notification (Patient Medicine- [place] [address] [facility] [id number] calling to inform [facility] [place] [address] she saw her [address], Gastro doctor and he [address] suggest surgery. [place] [phone] speak to [phone] about the surgery. Please advise [phone]); Results (Fluoroscopy upper GI) Allergies Active Allergy Reactions Severity Noted Date Comments Aripiprazole Unknown - See comments 04/10/2014 Symptoms of tardive dyskinesia Patient states that she is currently taking medication. Quetiapine Fumarate Unknown - See comments 03/05/2014 tremors Sulfasalazine Hives 01/21/2011 documented as of this encounter (statuses as of 03/09/2019) Medications Medication Sig Dispensed Refills Start End Status Date Date MULTIPLE VITAMINS DAILY 2 pills a day 0 Active ORAL TAB fluticasone (FLONASE) 50 Use 1 [place] in each 1 Bottle 2 04/25/20 Active [...] as of this encounter (statuses as of 03/09/2019) Active Problems Patient Care Coordination Note Hypertension [...] drink per day for most women and processor grain weight men ? If I am a smoker, stop smoking ? Manage stress by identifying three ways to reduce stress ? [employer] (www.[email or web address]/[employer]) is an online tool that will allow me to review lab results and portions of my health record, and to communicate with healthcare providers as needed. If I do not have a [employer] account, I will discuss this with my [...] woman exam with routine gynecological exam 03/11/2015 [facility] current use of opiate analgesic 03/11/2015 Personal [...] stools and was evaluated by a GI regulatory affairs consultant in [place] about 10 years ago who told her she had then inflammatory bowel disease. However, she has been basically asymptomatic since except for functional bowel symptoms Chronic pain syndrome Overview: As part of the fibromyalgia Rheumatoid arthritis Overview: ICD10 Diagnosis Term Exceptional Student Education Teacher Utility documented as of this encounter (statuses as of 03/09/2019) Resolved Problems Problem Noted Date Resolved Date [...] arthritis 03/18/2011 04/04/2013 Overview: ICD10 Diagnosis Term Exceptional Student Education Teacher Utility Encounter for long-term (current) use of [...] S/p laparoscopic cholecystectomy 09/19/2007 ICD10 Diagnosis Term Exceptional Student Education Teacher Utility Calculus of bile duct 09/19/2007 11/29/2007 Overview: S/p laparoscopic cholecystectomy 09/19/2007 ICD10 Diagnosis Term Exceptional Student Education Teacher Utility Psoriatic arthropathy 12/29/2011 Overview: On Remicade infusions. Has never received Enbrel or Humira. Rheumatism and fibrositis 10/29/2008 Overview: ICD10 Diagnosis Term Exceptional Student Education Teacher Utility Irritable bowel syndrome 12/29/2011 Overview: Has periods of constipation alternating with loose stools off and on. Hypothyroidism 10/05/2015 Overview: ICD10 Diagnosis Term Exceptional Student Education Teacher Utility Chronic pain syndrome 12/29/2011 Overview: As part of the fibromyalgia Psoriatic arthropathy 01/05/2015 documented as of this encounter (statuses as of 03/09/2019) Immunizations Name Administration Dates Next Due H1n1 [...] Visit Pulmonary Disease Simi Veliz, DO [address] [place] [phone] 04/05/2019 Office Visit Internal Medicine Wally Angulo [address] [place] [address] [phone] 04/16/2019 Nurse Visit Pain Medicine Doulatram, Erx 04/17/2019 Office Visit Infectious Disease Sebastian Alberto [id number] [place], [place] [address] 05/14/2019 Nurse Visit Pain Medicine Doulatram, Erx 06/11/2019 Nurse Visit Pain Medicine Doulatram, Erx 07/09/2019 Nurse Visit Pain Medicine Doulatram, Erx 08/06/2019 Nurse Visit Pain Medicine Doulatram, Erx 08/27/2019 Office Visit Pain Medicine DoulatramCiro MD [id number] [place], [place] [address] 09/03/2019 Nurse Visit Pain Medicine Doulatram, Erx [...] this encounter Implants Implanted Type Area Manager Mining Device Identifier Shelf Expiration Model / Serial Date / Lot Hip HIP documented as of this encounter Results Not on filedocumented in this encounter Insurance Payer Benefit Plan / Subscriber ID Effective Dates Phone Address Type Group MEDICARE MEDICARE PART xxxxxxxxxxx 1992-[place] [phone] [address] Medicare A & B t 2 [id number] [place] [id number] documented as of this encounter Advance Directives Type Date Recorded Patient Director Of Home Care Hospice Explanation Advance Directives and Living 05/14/2014 1:59 PM Will Power of Supervisor Record Press 03/07/2015 2:05 PM
--- OUTSIDE RECORDS SUMMARY | 2019-03-20 18:21 | XMS REPORT | Summary of Care ---
:1955 Author Organization [facility] Address [address] [place] [address] Care Team Providers Name Role Phone Wally Angulo Primary Care Provider Wally Angulo Insurance Hmo Bernabe Poe MD Unavailable Sophia Fisher [facility] Bilingual Social Worker Unavailable Reason for Visit Reason Comments Notification Patient calling to inform she saw her Gastro doctor and he suggest surgery. would like to speak to about the surgery. Please advise [phone] Results Fluoroscopy upper GI Encounter Details Date Type Department Care Team Description 03/02/2019 Telephone [facility] Internal Wally Angulo Notification (Patient Medicine- [place] [address] [facility] [address] calling to inform Primary [facility] [place] [address] she saw her [address], Gastro doctor and he [address] suggest surgery. [place], [place] [phone] speak to [phone] about the surgery. 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 If I am a smoker, stop smoking ? Manage stress by identifying three ways to reduce stress ? [employer] (www.[facility]/[employer]) is an online tool that will allow me to review lab results and portions of my health record, and to communicate with healthcare providers as needed. If I do not have a [employer] account, I will discuss this with my [...] stools and was evaluated by a GI clinical sales consultant in [place] about 10 years ago who told her she had then inflammatory bowel disease. However, she has been basically asymptomatic since except for functional bowel symptoms Chronic pain syndrome Overview: As part of the fibromyalgia Rheumatoid arthritis Overview: ICD10 Diagnosis Term Monotype Operator Utility documented as of this encounter [...] arthritis 03/18/2011 04/04/2013 Overview: ICD10 Diagnosis Term Monotype Operator Utility Encounter for long-term (current) use [...] S/p laparoscopic cholecystectomy 09/19/2007 ICD10 Diagnosis Term Monotype Operator Utility Calculus of bile duct 09/19/2007 11/29/2007 Overview: S/p laparoscopic cholecystectomy 09/19/2007 ICD10 Diagnosis Term Monotype Operator Utility Psoriatic arthropathy 12/29/2011 Overview: On Remicade infusions. Has never received Enbrel or Humira. Rheumatism and fibrositis 10/29/2008 Overview: ICD10 Diagnosis Term Monotype Operator Utility Irritable bowel syndrome 12/29/2011 Overview: Has periods of constipation alternating with loose stools off and on. Hypothyroidism 10/05/2015 Overview: ICD10 Diagnosis Term Monotype Operator Utility Chronic pain syndrome 12/29/2011 Overview: [...] Visit Pulmonary Disease Simi Veliz, DO [address] [place] [phone] 04/05/2019 Office Visit Internal Medicine Wally Angulo [address] [place] [address] [phone] 04/16/2019 Nurse Visit Pain Medicine Doulatram, Erx 04/17/2019 Office Visit Infectious Disease Sebastian Alberto [id number] [place], [place] [address] 05/14/2019 Nurse Visit Pain Medicine Doulatram, Erx 06/11/2019 Nurse Visit Pain Medicine Doulatram, Erx 07/09/2019 Nurse Visit Pain Medicine Doulatram, Erx 08/06/2019 Nurse Visit Pain Medicine Doulatram, Erx 08/27/2019 Office Visit Pain Medicine DoulatramCiro MD [id number] [place], [place] [phone] 09/03/2019 Nurse Visit Pain Medicine Doulatram, Erx [...] of this encounter Implants Implanted Type Area Melt Down Furnace Operator Device Identifier Shelf Expiration Model / Serial Date / Lot Hip HIP documented as of this encounter Results Not on filedocumented in this encounter Insurance Payer Benefit Plan / Subscriber ID Effective Dates Phone Address Type Group MEDICARE MEDICARE PART xxxxxxxxxxx 1992-[place] [phone] [address] Medicare A & B t 2 [id number] [place] [id number] documented as of this encounter Advance Directives Type Date Recorded Patient Invas Tech Explanation Advance Directives and Living 05/14/2014 1:59 PM Will Power of Production Sampler 03/07/2015 2:05 PM
--- OUTSIDE RECORDS SUMMARY | 2019-03-20 18:22 | XMS REPORT | Summary of Care ---
:1955 Author Organization [facility] Address [address] [place] [address] Care Team Providers Name Role Phone Wally Angulo Primary Care Provider Wally Angulo Insurance Hmo Bernabe Poe MD Unavailable Sophia Fisher [facility] Blueprint Reader Unavailable Reason for Visit Reason Comments Refill Request Encounter Details Date Type Department Care Team Description 03/14/2019 Refill [facility] Internal Wally Angulo Refill Request [address] [place] [address] [facility] Carlos Woodard, [address] [place] [address] [phone] Allergies Active Allergy Reactions Severity Noted Date Comments Aripiprazole Unknown - See comments 04/10/2014 Symptoms of tardive dyskinesia Patient states that she is currently taking medication. Quetiapine Fumarate Unknown - See comments 03/05/2014 tremors Sulfasalazine Hives 01/21/2011 documented as of this encounter (statuses as of 03/15/2019) Medications Medication Sig Dispensed Refills Start End Status Date Date MULTIPLE VITAMINS 2 pills a day 0 Active DAILY ORAL TAB fluticasone (FLONASE) Use 1 [place] in 1 Bottle 2 Active 50 mcg/actuation [...] recurrent episode, moderate, Psoriatic arthritis, Psychophysiological insomnia OTEZLA STARTER 10 mg 0 Active (4)-20 [...] TWICE DAILY 019 Anxiety NEEDED FOR ANXIETY SUCRALFATE 1 gram TAKE 1 TABLET BY 120 tablet 0 Active tabletIndications: MOUTH BEFORE MEALS 019 Status post gastric AND AT BEDTIME bypass for obesity SUCRALFATE 1 gram TAKE 1 TABLET BY 120 tablet 2 tablet MOUTH BEFORE MEALS 019 2018 AND AT BEDTIME documented as of this encounter (statuses as of 03/15/2019) Active Problems Patient Care Coordination Note Hypertension [...] drink per day for most women and screwdown 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 If I am a smoker, stop smoking ? Manage stress by identifying three ways to reduce stress ? [employer] (www.[facility]/[employer] is an online tool that will allow [...] stools and was evaluated by a GI compliance consultant in [place] about 10 years ago who told her she had then inflammatory bowel disease. However, she has been basically asymptomatic since except for functional bowel symptoms Chronic pain syndrome Overview: As part of the fibromyalgia Rheumatoid arthritis Overview: ICD10 Diagnosis Term Fryer Operator Utility documented as of this encounter (statuses as of 03/15/2019) Resolved Problems Problem Noted Date Resolved Date [...] arthritis 03/18/2011 04/04/2013 Overview: ICD10 Diagnosis Term Fryer Operator Utility Encounter for long-term (current) use [...] S/p laparoscopic cholecystectomy 09/19/2007 ICD10 Diagnosis Term Fryer Operator Utility Calculus of bile duct 09/19/2007 11/29/2007 Overview: S/p laparoscopic cholecystectomy 09/19/2007 ICD10 Diagnosis Term Fryer Operator Utility Psoriatic arthropathy 12/29/2011 Overview: On Remicade infusions. Has never received Enbrel or Humira. Rheumatism and fibrositis 10/29/2008 Overview: ICD10 Diagnosis Term Fryer Operator Utility Irritable bowel syndrome 12/29/2011 Overview: Has periods of constipation alternating with loose stools off and on. Hypothyroidism 10/05/2015 Overview: ICD10 Diagnosis Term Fryer Operator Utility Chronic pain syndrome 12/29/2011 Overview: As part of the fibromyalgia Psoriatic arthropathy 01/05/2015 documented as of this encounter (statuses as of 03/15/2019) Immunizations Name Administration Dates Next Due H1n1 [...] 03/19/2019 Nurse Visit Pain Medicine Doulatram, Erx 03/21/2019 Office Visit Urology Britt Dana Noyola, LUNCH WAGON OPERATOR [address] [address] [phone] 03/30/2019 Office Visit Pulmonary Disease Simi Veliz, DO [address] [place] [address] 04/05/2019 Office Visit Internal Medicine Wally Angulo [address] [place] [address] [phone] 04/16/2019 Nurse Visit Pain Medicine Doulatram, Erx 04/17/2019 Office Visit Infectious Disease Sebastian Alberto [address] [id number] [place], [place] [address] 05/14/2019 Nurse Visit Pain Medicine Doulatram, Erx 06/11/2019 Nurse Visit Pain Medicine Doulatram, Erx 07/09/2019 Nurse Visit Pain Medicine Doulatram, Erx 08/06/2019 Nurse Visit Pain Medicine Doulatram, Erx 08/27/2019 Office Visit Pain Medicine DoulatramCiro MD [address] [id number] [place], [place] [phone] 09/03/2019 Nurse Visit Pain Medicine Doulatram, Erx [...] of this encounter Implants Implanted Type Area Mainspring Former Device Identifier Shelf Expiration Model / Serial Date / Lot Hip HIP documented as of this encounter Results Not on filedocumented in this encounter Visit Diagnoses Diagnosis Status post gastric bypass for obesity - Primary Bariatric surgery status documented in this encounter Insurance Payer Benefit Plan / Subscriber ID Effective Dates Phone Address Type Group MEDICARE MEDICARE PART xxxxxxxxxxx 1992-[place] [phone] [address] [facility] Medicare A & B t 2 [id number] THI CORTÉS [id number] documented as of this encounter Advance Directives Type Date Recorded Patient Shelf Drier Operator Explanation Advance Directives and Living 05/14/2014 1:59 PM Will Power of Time Study Technician 03/07/2015 2:05 PM
--- OUTSIDE RECORDS SUMMARY | 2019-03-20 18:22 | XMS REPORT | Summary of Care ---
:1955 Author Organization [facility] Address [address] [place] [address] Care Team Providers Name Role Phone Wally Angulo Primary Care Provider Wally Angulo Insurance Hmo Bernabe Poe MD Unavailable Sophia Fisher [facility] Department Clinician Unavailable Reason for Visit Reason Comments Assessment Back Pain Encounter Details Date Type Department Care Team Description 03/14/2019 Telephone [facility] Anesthesia Doulatram, Assessment; [facility] MD Ciro [address] [address] [id number] [place], [place] [phone] Allergies Active Allergy Reactions Severity Noted Date Comments Aripiprazole Unknown - See comments 04/10/2014 Symptoms of tardive dyskinesia Patient states that she is currently taking medication. Quetiapine Fumarate Unknown - See comments 03/05/2014 tremors Sulfasalazine Hives 01/21/2011 documented as of this encounter (statuses as of 03/16/2019) Medications Medication Sig Dispensed Refills Start End Status Date Date MULTIPLE VITAMINS DAILY 2 pills a day 0 Active ORAL TAB fluticasone (FLONASE) 50 Use 1 Kaplan in each 1 Bottle 2 04/25/20 Active [...] Psychophysiological insomnia OTEZLA STARTER 10 mg 0 09/14/19 Active [...] as of this encounter (statuses as of 03/16/2019) Active Problems Patient Care Coordination Note Hypertension [...] drink per day for most women and parquet floor layer weight men ? If I am a smoker, stop smoking ? Manage stress by identifying three ways to reduce stress ? [employer] (www.[facility]/[employer]) is an online tool that will allow me to review lab results and portions of my health record, and to communicate with healthcare providers as needed. If I do not have a [employer] account, I will discuss this with my [...] and was evaluated by a GI data management consultant in [place] about 10 years ago who told her she had then inflammatory bowel disease. However, she has been basically asymptomatic since except for functional bowel symptoms Chronic pain syndrome Overview: As part of the fibromyalgia Rheumatoid arthritis Overview: ICD10 Diagnosis Term Promotions Producer Utility documented as of this encounter (statuses as of 03/16/2019) Resolved Problems Problem Noted Date Resolved Date [...] arthritis 03/18/2011 04/04/2013 Overview: ICD10 Diagnosis Term Promotions Producer Utility Encounter for long-term (current) use of [...] S/p laparoscopic cholecystectomy 09/19/2007 ICD10 Diagnosis Term Promotions Producer Utility Calculus of bile duct 09/19/2007 11/29/2007 Overview: S/p laparoscopic cholecystectomy 09/19/2007 ICD10 Diagnosis Term Promotions Producer Utility Psoriatic arthropathy 12/29/2011 Overview: On Remicade infusions. Has never received Enbrel or Humira. Rheumatism and fibrositis 10/29/2008 Overview: ICD10 Diagnosis Term Promotions Producer Utility Irritable bowel syndrome 12/29/2011 Overview: Has periods of constipation alternating with loose stools off and on. Hypothyroidism 10/05/2015 Overview: ICD10 Diagnosis Term Promotions Producer Utility Chronic pain syndrome 12/29/2011 Overview: As part of the fibromyalgia Psoriatic arthropathy 01/05/2015 documented as of this encounter (statuses as of 03/16/2019) Immunizations Name Administration Dates Next Due H1n1 [...] 03/19/2019 Nurse Visit Pain Medicine Fede Villanueva 03/21/2019 Office Visit Urology Dana De La Torre SPEECH PATHOLOGIST ASSISTANT [address] [address] [phone] 03/30/2019 Office Visit Pulmonary Disease KerenRonaldoalthea, DO [address] [place] [address] 04/05/2019 Office Visit Internal Medicine Wally Angulo [address] [place] [address] [phone] 04/16/2019 Nurse Visit Pain Medicine Doulatram, Erx 04/17/2019 Office Visit Infectious Disease Sebastian Alberto [address] [id number] [place], [place] [address] 05/14/2019 Nurse Visit Pain Medicine Doulatram, Erx 06/11/2019 Nurse Visit Pain Medicine Doulatram, Erx 07/09/2019 Nurse Visit Pain Medicine Doulatram, Erx 08/06/2019 Nurse Visit Pain Medicine Doulatram, Erx 08/27/2019 Office Visit Pain Medicine Doulatram, MD Ciro [address] [id number] [place], [place] [address] 09/03/2019 Nurse Visit Pain Medicine Doulatram, Erx [...] this encounter Implants Implanted Type Area Senior Living Sales Counselor Device Identifier Shelf Expiration Model / Serial Date / Lot Hip HIP documented as of this encounter Results Not on filedocumented in this encounter Insurance Payer Benefit Plan / Subscriber ID Effective Dates Phone Address Type Group MEDICARE MEDICARE PART xxxxxxxxxxx 1992-[place] [phone] [address] Medicare A & B t 2 [id number] THI CORTÉS [id number] documented as of this encounter Advance Directives Type Date Recorded Patient Car Wiper Explanation Advance Directives and Living 05/14/2014 1:59 PM Will Power of Maintenance And Utilities Supervisor 03/07/2015 2:05 PM
--- OUTSIDE RECORDS SUMMARY | 2019-03-20 18:22 | XMS REPORT | Summary of Care ---
:1955 Author Organization [facility] Address [address] [place] [address] Care Team Providers Name Role Phone Wally Angulo Primary Care Provider Wally Angulo Insurance Hmo Bernabe Poe MD Unavailable Sophia Fisher [facility] Coal Deliverer Unavailable Encounter Details Date Type Department Care Team Description 02/05/2019 Patient Secure Tng [facility] MyChart Messages Doctor Unassigned, [address] [place] [address] [place] [address] [place] [address] [place] [address] Allergies Active Allergy Reactions Severity Noted Date Comments Aripiprazole Unknown - See comments 04/10/2014 Symptoms of tardive dyskinesia Patient states that she is currently taking medication. Quetiapine Fumarate Unknown - See comments 03/05/2014 tremors Sulfasalazine Hives 01/21/2011 documented as of this encounter (statuses as of 03/10/2019) Medications Medication Sig Dispensed Refills Start End Status Date Date MULTIPLE VITAMINS DAILY 2 pills a day 0 Active ORAL TAB fluticasone (FLONASE) Use 1 [place] in each 1 Bottle 2 Active 50 [...] as of this encounter (statuses as of 03/10/2019) Active Problems Patient Care Coordination Note Hypertension [...] drink per day for most women and wire technician weight men ? If I am a smoker, stop smoking ? Manage stress by identifying three ways to reduce stress ? [employer] (www.[facility]/[employer]) is an online tool that will allow me to review lab results and portions of my health record, and to communicate with healthcare providers as needed. 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 However, she has been basically asymptomatic since except for functional bowel symptoms Chronic pain syndrome Overview: As part of the fibromyalgia Rheumatoid arthritis Overview: ICD10 Diagnosis Term Rolloff Truck Driver Utility documented as of this encounter (statuses as of 03/10/2019) Resolved Problems Problem Noted Date Resolved Date [...] arthritis 03/18/2011 04/04/2013 Overview: ICD10 Diagnosis Term Rolloff Truck Driver Utility Encounter for long-term (current) use of [...] S/p laparoscopic cholecystectomy 09/19/2007 ICD10 Diagnosis Term Rolloff Truck Driver Utility Calculus of bile duct 09/19/2007 11/29/2007 Overview: S/p laparoscopic cholecystectomy 09/19/2007 ICD10 Diagnosis Term Rolloff Truck Driver Utility Psoriatic arthropathy 12/29/2011 Overview: On Remicade infusions. Has never received Enbrel or Humira. Rheumatism and fibrositis 10/29/2008 Overview: ICD10 Diagnosis Term Rolloff Truck Driver Utility Irritable bowel syndrome 12/29/2011 Overview: Has periods of constipation alternating with loose stools off and on. Hypothyroidism 10/05/2015 Overview: ICD10 Diagnosis Term Rolloff Truck Driver Utility Chronic pain syndrome 12/29/2011 Overview: As part of the fibromyalgia Psoriatic arthropathy 01/05/2015 documented as of this encounter (statuses as of 03/10/2019) Immunizations Name Administration Dates Next Due H1n1 [...] Visit Pulmonary Disease Simi Veliz DO [address] [place] [phone] 04/05/2019 Office Visit Internal Medicine Wally Angulo [address] [place] [address] [phone] 04/16/2019 Nurse Visit Pain Medicine Doulatram, Erx 04/17/2019 Office Visit Infectious Disease DollySebastian lazaro [address] [id number] [place], [place] [address] 05/14/2019 Nurse Visit Pain Medicine Doulatram, Erx 06/11/2019 Nurse Visit Pain Medicine Doulatram, Erx 07/09/2019 Nurse Visit Pain Medicine Doulatram, Erx 08/06/2019 Nurse Visit Pain Medicine Doulatram, Erx 08/27/2019 Office Visit Pain Medicine Doulatram, MD Ciro [address] [id number] [place], [place] [address] 09/03/2019 Nurse Visit Pain Medicine Doulatram, Erx [...] of this encounter Implants Implanted Type Area Harpooner Device Identifier Shelf Expiration Model / Serial Date / Lot Hip HIP documented as of this encounter Results Not on filedocumented in this encounter Insurance Payer Benefit Plan / Subscriber ID Effective Dates Phone Address Type Group MEDICARE MEDICARE PART xxxxxxxxxxx 1992-[place] [phone] [address] Medicare A & B t 2 [id number] THI CORTÉS [id number] documented as of this encounter Advance Directives Type Date Recorded Patient Engineer Conductor Explanation Advance Directives and Living 05/14/2014 1:59 PM Will Power of Hydro Station Operator 03/07/2015 2:05 PM
[2019-03-20] MEDS ORDERED: LORazepam 2 MG/ML VIAL ONE ×2 (18:23→19:23)
--- OUTSIDE RECORDS SUMMARY | 2019-03-20 18:23 | XMS REPORT | Summary of Care ---
:1955 Author Organization [facility] Address [address] [place] [address] Care Team Providers Name Role Phone Wally Angulo Primary Care Provider Wally Angulo Insurance Hmo Bernabe Poe MD Unavailable Sophia Fisher [facility] Shopper'S Aide Unavailable Reason for Visit Reason Comments Assessment Back Pain Encounter Details Date Type Department Care Team Description 03/14/2019 Telephone [facility] Anesthesia Doulatram, Assessment; Back [facility] MD Ciro [address] [address] [id number] [place], [place] [phone] Allergies Active Allergy Reactions Severity Noted Date [...] ORAL TAB fluticasone (FLONASE) 50 Use 1 [place] in each 1 Bottle 2 04/25/20 Active [...] drink per day for most women and nut sheller machine 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 If I am a smoker, stop smoking ? Manage stress by identifying three ways to reduce stress ? [employer] (www.[facility]/[employer]) is an online tool that will allow me to review lab results and portions of my health record, and to communicate with healthcare providers as needed. If I do not have a [employer] account, I will discuss this with my [...] woman exam with routine gynecological exam 03/11/2015 [facility]FP current use of opiate analgesic 03/11/2015 Personal [...] stools and was evaluated by a GI lean process deployment consultant in [place] about 10 years ago who told her she had then inflammatory bowel disease. However, she has been basically asymptomatic since except for functional bowel symptoms Chronic pain syndrome Overview: As part of the fibromyalgia Rheumatoid arthritis Overview: ICD10 Diagnosis Term Internet And E Business Project Manager Utility documented as of this encounter [...] arthritis 03/18/2011 04/04/2013 Overview: ICD10 Diagnosis Term Internet And E Business Project Manager Utility Encounter for long-term (current) use [...] S/p laparoscopic cholecystectomy 09/19/2007 ICD10 Diagnosis Term Internet And E Business Project Manager Utility Calculus of bile duct 09/19/2007 11/29/2007 Overview: S/p laparoscopic cholecystectomy 09/19/2007 ICD10 Diagnosis Term Internet And E Business Project Manager Utility Psoriatic arthropathy 12/29/2011 Overview: On Remicade infusions. Has never received Enbrel or Humira. Rheumatism and fibrositis 10/29/2008 Overview: ICD10 Diagnosis Term Internet And E Business Project Manager Utility Irritable bowel syndrome 12/29/2011 Overview: Has periods of constipation alternating with loose stools off and on. Hypothyroidism 10/05/2015 Overview: ICD10 Diagnosis Term Internet And E Business Project Manager Utility Chronic pain syndrome 12/29/2011 Overview: [...] Office Visit Urology Dana De La Torre ATMOSPHERIC PHYSICIST [address] [address] [phone] 03/30/2019 Office Visit Pulmonary Disease KerenRonaldoalthea, DO [address] [place] [address] 04/05/2019 Office Visit Internal Medicine Wally Angulo [address] [place] [address] [phone] 04/16/2019 Nurse Visit Pain Medicine Doulatram, Erx 04/17/2019 Office Visit Infectious Disease Sebastian Alberto [address] [id number] [place], [place] [address] 05/14/2019 Nurse Visit Pain Medicine Doulatram, Erx 06/11/2019 Nurse Visit Pain Medicine Doulatram, Erx 07/09/2019 Nurse Visit Pain Medicine Doulatram, Erx 08/06/2019 Nurse Visit Pain Medicine Doulatram, Erx 08/27/2019 Office Visit Pain Medicine Doulatram, MD Ciro [address] [id number] [place], [place] [address] 09/03/2019 Nurse Visit Pain Medicine Doulatram, Erx [...] of this encounter Implants Implanted Type Area Roof Cement And Paint Maker Helper Device Identifier Shelf Expiration Model / Serial Date / Lot Hip HIP documented as of this encounter Results Not on filedocumented in this encounter Insurance Payer Benefit Plan / Subscriber ID Effective Dates Phone Address Type Group MEDICARE MEDICARE PART xxxxxxxxxxx 1992-[place] [phone] [address] Medicare A & B t 2 [id number] THI CORTÉS [id number] documented as of this encounter Advance Directives Type Date Recorded Patient Invisible Braces Orthodontist Explanation Advance Directives and Living 05/14/2014 1:59 PM Will Power of Entry Rep 03/07/2015 2:05 PM
--- OUTSIDE RECORDS SUMMARY | 2019-03-20 18:23 | XMS REPORT | Summary of Care ---
:1955 Author Organization [facility] Address [address] [place] [address] Care Team Providers Name Role Phone Wally Angulo Primary Care Provider Wally Angulo Insurance Hmo Bernabe Poe MD Unavailable Sophia Fisher [facility] In Classroom Tutor Unavailable Encounter Details Date Type Department Care Team Description 03/16/2019 Patient Secure [facility] Internal Wally Angulo [address] [place] [address] [place] [address] , [address] [place] [address] Allergies Active Allergy Reactions Severity [...] ORAL TAB fluticasone (FLONASE) 50 Use 1 [place] in each 1 Bottle 2 04/25/20 Active [...] TWICE DAILY 19 Anxiety NEEDED FOR ANXIETY SUCRALFATE 1 gram TAKE 1 TABLET BY 120 tablet 0 03/15/20 Active tabletIndications: MOUTH BEFORE MEALS 19 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 If I am a smoker, stop smoking ? Manage stress by identifying three ways to reduce stress ? [employer] (www.[facility]/[employer]) is an online tool that will allow me to review lab results and portions of my health record, and to communicate with healthcare providers as needed. 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 However, she has been basically asymptomatic since except for functional bowel symptoms Chronic pain syndrome Overview: As part of the fibromyalgia Rheumatoid arthritis Overview: ICD10 Diagnosis Term Install And Repair Technician Utility documented as of this encounter (statuses [...] arthritis 03/18/2011 04/04/2013 Overview: ICD10 Diagnosis Term Install And Repair Technician Utility Encounter for long-term (current) use of [...] S/p laparoscopic cholecystectomy 09/19/2007 ICD10 Diagnosis Term Install And Repair Technician Utility Calculus of bile duct 09/19/2007 11/29/2007 Overview: S/p laparoscopic cholecystectomy 09/19/2007 ICD10 Diagnosis Term Install And Repair Technician Utility Psoriatic arthropathy 12/29/2011 Overview: On Remicade infusions. Has never received Enbrel or Humira. Rheumatism and fibrositis 10/29/2008 Overview: ICD10 Diagnosis Term Install And Repair Technician Utility Irritable bowel syndrome 12/29/2011 Overview: Has periods of constipation alternating with loose stools off and on. Hypothyroidism 10/05/2015 Overview: ICD10 Diagnosis Term Install And Repair Technician Utility Chronic pain syndrome 12/29/2011 Overview: As [...] Medicine Doulatram, Erx 03/21/2019 Office Visit Urology Dana De La Torre, HENRY [address] [address] [phone] 03/30/2019 Office Visit Pulmonary Disease Simi Veliz DO [address] [place] [phone] 04/05/2019 Office Visit Internal Medicine Wally Angulo [address] [place], [place] [address] 04/16/2019 Nurse Visit Pain Medicine Doulatram, Erx 04/17/2019 Office Visit Infectious Disease Sebastian Alberto [address] [id number] [place], [place] [phone] 05/14/2019 Nurse Visit Pain Medicine Doulatram, Erx 06/11/2019 Nurse Visit Pain Medicine Doulatram, Erx 07/09/2019 Nurse Visit Pain Medicine Doulatram, Erx 08/06/2019 Nurse Visit Pain Medicine Doulatram, Erx 08/27/2019 Office Visit Pain Medicine Doulatram, MD Ciro [address] [id number] [place], [place] [phone] 09/03/2019 Nurse Visit Pain Medicine Doulatram, Erx [...] of this encounter Implants Implanted Type Area Fleet Assistant Device Identifier Shelf Expiration Model / Serial Date / Lot Hip HIP documented as of this encounter Results Not on filedocumented in this encounter Insurance Payer Benefit Plan / Subscriber ID Effective Dates Phone Address Type Group MEDICARE MEDICARE PART xxxxxxxxxxx 1992-[place] [phone] [address] Medicare A & B t 2 [id number] THI CORTÉS [id number] documented as of this encounter Advance Directives Type Date Recorded Patient Human Resources Partner Explanation Advance Directives and Living 05/14/2014 1:59 PM Will Power of Poker Manager 03/07/2015 2:05 PM
--- OUTSIDE RECORDS SUMMARY | 2019-03-20 18:24 | XMS REPORT | Summary of Care ---
:1955 Author Organization [facility] Address [address] [place] [address] Care Team Providers Name Role Phone Wally Angulo Primary Care Provider Wally Angulo Insurance Hmo Bernabe Poe MD Unavailable Sophia Fisher [facility] Skate Maker Unavailable Encounter Details Date Type Department Care Team Description 03/14/[address] [facility] Internal Wally Angulo [address] [place] [address] [place] [address] , [address] [place] [address] Allergies Active Allergy Reactions Severity Noted Date Comments Aripiprazole Unknown - See comments 04/10/2014 Symptoms of tardive dyskinesia Patient states that she is currently taking medication. Quetiapine Fumarate Unknown - See comments 03/05/2014 tremors Sulfasalazine Hives 01/21/2011 documented as of this encounter (statuses as of 03/19/2019) Medications Medication Sig Dispensed Refills Start End Status Date Date MULTIPLE VITAMINS DAILY 2 pills a day 0 Active ORAL TAB fluticasone (FLONASE) 50 Use 1 [place] in each 1 Bottle 2 04/25/20 Active [...] MOUTH TWICE DAILY 19 Seropositive rheumatoid arthritis cycloSPORINE (RESTASIS) INSTILL 1 DROP IN 60 [...] as of this encounter (statuses as of 03/19/2019) Active Problems Patient Care Coordination Note Hypertension [...] drink per day for most women and support services rep weight men ? If I am a smoker, stop smoking ? Manage stress by identifying three ways to reduce stress ? [employer] (www.[facility]/[employer]) is an online tool that will allow me to review lab results and portions of my health record, and to communicate with healthcare providers as needed. 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 However, she has been basically asymptomatic since except for functional bowel symptoms Chronic pain syndrome Overview: As part of the fibromyalgia Rheumatoid arthritis Overview: ICD10 Diagnosis Term Braille Proofreader Utility documented as of this encounter (statuses as of 03/19/2019) Resolved Problems Problem Noted Date Resolved Date [...] arthritis 03/18/2011 04/04/2013 Overview: ICD10 Diagnosis Term Braille Proofreader Utility Encounter for long-term (current) use of [...] S/p laparoscopic cholecystectomy 09/19/2007 ICD10 Diagnosis Term Braille Proofreader Utility Calculus of bile duct 09/19/2007 11/29/2007 Overview: S/p laparoscopic cholecystectomy 09/19/2007 ICD10 Diagnosis Term Braille Proofreader Utility Psoriatic arthropathy 12/29/2011 Overview: On Remicade infusions. Has never received Enbrel or Humira. Rheumatism and fibrositis 10/29/2008 Overview: ICD10 Diagnosis Term Braille Proofreader Utility Irritable bowel syndrome 12/29/2011 Overview: Has periods of constipation alternating with loose stools off and on. Hypothyroidism 10/05/2015 Overview: ICD10 Diagnosis Term Braille Proofreader Utility Chronic pain syndrome 12/29/2011 Overview: As part of the fibromyalgia Psoriatic arthropathy 01/05/2015 documented as of this encounter (statuses as of 03/19/2019) Immunizations Name Administration Dates Next Due H1n1 [...] Treatment Date Type Specialty Care Team Description 03/21/2019 Office Visit Urology Dana De La Torre, DAILY RELEASE AND DUPE PRINTER [address] [address] 03/30/2019 Office Visit Pulmonary Disease Simi Veliz DO [address] [place] [address] [phone] 04/05/2019 Office Visit Internal Medicine Wally Angulo [address] [facility] [address] [place] [address] [phone] 04/16/2019 Nurse Visit Pain Medicine Doulatram, Erx 04/17/2019 Office Visit Infectious Disease DollySebastian swan [address] [facility] [address] [place] [address] [phone] 05/14/2019 Nurse Visit Pain Medicine Doulatram, Erx 06/11/2019 Nurse Visit Pain Medicine Doulatram, Erx 07/09/2019 Nurse Visit Pain Medicine Doulatram, Erx 08/06/2019 Nurse Visit Pain Medicine Doulatram, Erx 08/27/2019 Office Visit Pain Medicine Doulatram, MD Ciro [address] [facility] [id number] [place], [place] [address] 09/03/2019 Nurse Visit Pain Medicine Doulatram, Erx [...] of this encounter Implants Implanted Type Area Riveter Pneumatic Device Identifier Shelf Expiration Model / Serial Date / Lot Hip HIP documented as of this encounter Results Not on filedocumented in this encounter Insurance Payer Benefit Plan / Subscriber ID Effective Dates Phone Address Type Group MEDICARE MEDICARE PART xxxxxxxxxxx 1992-[place] [phone] Medicare A & B t 2 [id number] THI CORTÉS [id number] documented as of this encounter Advance Directives Type Date Recorded Patient Food Service Coordinator Explanation Advance Directives and Living 05/14/2014 1:59 PM Will Power of Assembly Machine Tender 03/07/2015 2:05 PM
--- OUTSIDE RECORDS SUMMARY | 2019-03-20 18:24 | XMS REPORT | Summary of Care ---
:1955 Author Organization [facility] Address [address] [place] [address] Care Team Providers Name Role Phone Wally Angulo Primary Care Provider Wally Angulo Insurance Hmo Bernabe Poe MD Unavailable Sophia Fisher [facility] Beveler Unavailable Reason for Visit Reason Comments Refill Request Encounter Details Date Type Department Care Team Description 03/17/2019 Refill [facility] Anesthesia Pain-[facility] Ciro Villanueva, Refill Request [facility] [address] [id number] [place] [address] [place], [place] [address] Allergies Active Allergy Reactions Severity Noted Date Comments Aripiprazole Unknown - See comments 04/10/2014 Symptoms of tardive dyskinesia Patient states that she is currently taking medication. Quetiapine Fumarate Unknown - See comments 03/05/2014 tremors Sulfasalazine Hives 01/21/2011 documented as of this encounter (statuses as of 03/17/2019) Medications Medication Sig Dispensed Refills Start End Status Date Date MULTIPLE VITAMINS 2 pills a day 0 Active DAILY ORAL TAB fluticasone (FLONASE) Use 1 [place] in 1 Bottle 2 Active 50 mcg/actuation [...] MOUTH TWICE DAILY 019 Seropositive rheumatoid arthritis cycloSPORINE INSTILL 1 DROP IN 60 Each [...] gastric AND AT BEDTIME bypass for obesity FENTanyl 100 mcg/hr Apply 1 Patch to 10 Patch 0 Active patchIndications: skin every 72 Psoriatic arthropathy (seventy-two) hours. FENTanyl 25 mcg/hr Apply 1 Patch to 10 Patch 0 Active patchIndications: skin every 72 019 Chronic pain syndrome (seventy-two) hours. HYDROcodone-acetaminop Take 1 pill by 150 tablet 0 Active hen (NORCO) 10-325 mg mouth every tabletIndications: hours as needed Psoriatic arthropathy, for pain, Max 6 Chronic pain syndrome daily FENTanyl 100 mcg/hr Apply 1 Patch to 10 Patch 0 03/17/ Discontinued patchIndications: skin every 72 2018 Psoriatic arthropathy (seventy-two) hours. FENTanyl 25 mcg/hr Apply 1 Patch to 10 Patch 0 03/17/ Discontinued patchIndications: skin every 72 2018 Chronic pain syndrome (seventy-two) hours. HYDROcodone-acetaminop Take 1 pill by 150 tablet 0 03/17/ Discontinued hen (NORCO) 10-325 mg mouth every 2018 tabletIndications: hours as needed Psoriatic arthropathy, for pain, Max 6 Chronic pain syndrome daily documented as of this encounter (statuses as of 03/17/2019) Active Problems Patient Care Coordination Note Hypertension [...] drink per day for most women and bicycle designer weight men ? If I am a smoker, stop smoking ? Manage stress by identifying three ways to reduce stress ? [employer] (www.[facility]/[employer]) is an online tool that will allow me to review lab results and portions of my health record, and to communicate with healthcare providers as needed. 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 However, she has been basically asymptomatic since except for functional bowel symptoms Chronic pain syndrome Overview: As part of the fibromyalgia Rheumatoid arthritis Overview: ICD10 Diagnosis Term Frame Pulley Mortising Machine Operator Utility documented as of this encounter (statuses as of 03/17/2019) Resolved Problems Problem Noted Date Resolved Date [...] arthritis 03/18/2011 04/04/2013 Overview: ICD10 Diagnosis Term Frame Pulley Mortising Machine Operator Utility Encounter for long-term (current) [...] S/p laparoscopic cholecystectomy 09/19/2007 ICD10 Diagnosis Term Frame Pulley Mortising Machine Operator Utility Calculus of bile duct 09/19/2007 11/29/2007 Overview: S/p laparoscopic cholecystectomy 09/19/2007 ICD10 Diagnosis Term Frame Pulley Mortising Machine Operator Utility Psoriatic arthropathy 12/29/2011 Overview: On Remicade infusions. Has never received Enbrel or Humira. Rheumatism and fibrositis 10/29/2008 Overview: ICD10 Diagnosis Term Frame Pulley Mortising Machine Operator Utility Irritable bowel syndrome 12/29/2011 Overview: Has periods of constipation alternating with loose stools off and on. Hypothyroidism 10/05/2015 Overview: ICD10 Diagnosis Term Frame Pulley Mortising Machine Operator Utility Chronic pain syndrome 12/29/2011 Overview: As part of the fibromyalgia Psoriatic arthropathy 01/05/2015 documented as of this encounter (statuses as of 03/17/2019) Immunizations Name Administration Dates Next Due H1n1 [...] Office Visit Urology Dana De La Torre, BUSINESS ANALYST [employer] [address] [address] [phone] 03/30/2019 Office Visit Pulmonary Disease Simi Veliz, DO [address] [place] [address] 04/05/2019 Office Visit Internal Medicine Wally Angulo [address] [place] [address] [phone] 04/16/2019 Nurse Visit Pain Medicine Doulatram, Erx 04/17/2019 Office Visit Infectious Disease Sebastian Alberto [address] [place] [address] [phone] 05/14/2019 Nurse Visit Pain Medicine Doulatram, Erx 06/11/2019 Nurse Visit Pain Medicine Doulatram, Erx 07/09/2019 Nurse Visit Pain Medicine Doulatram, Erx 08/06/2019 Nurse Visit Pain Medicine Doulatram, Erx 08/27/2019 Office Visit Pain Medicine DoulatraCiro null MD [id number] [place], [place] [address] 09/03/2019 Nurse Visit Pain Medicine Rich, Erx Health Maintenance Due Date Last Done [...] of this encounter Implants Implanted Type Area Skills Instructor Device Identifier Shelf Expiration Model / Serial [...] BOX Medicare A & B t 2 [id number] THI CORTÉS [id number] documented as of this encounter Advance Directives Type Date Recorded Patient Retail Inventory Control Clerk Explanation Advance Directives and Living 05/14/2014 1:59 PM Will Power of Olive Grader 03/07/2015 2:05 PM
--- OUTSIDE RECORDS SUMMARY | 2019-03-20 18:24 | XMS REPORT | Summary of Care ---
:1955 Author Organization [facility] Address [address] [place] [address] Care Team Providers Name Role Phone Wally Angulo Primary Care Provider Wally Angulo Insurance Hmo Bernabe Poe MD Unavailable Sophia Fisher [facility] [place] Wet Room Supervisor Unavailable Encounter Details Date Type Department Care Team Description 03/14/2019 Patient Secure [facility] Internal Wally Angulo [address] [place] [address] [place] [address] , [address] [place] [address] Allergies Active Allergy Reactions Severity [...] ORAL TAB fluticasone (FLONASE) 50 Use 1 [place] in each 1 Bottle 2 04/25/20 Active [...] drink per day for most women and gold plater weight men ? If I am a smoker, stop smoking ? Manage stress by identifying three ways to reduce stress ? [employer] (www.[facility]/[employer]) is an online tool that will allow me to review lab results and portions of my health record, and to communicate with healthcare providers as needed. 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 However, she has been basically asymptomatic since except for functional bowel symptoms Chronic pain syndrome Overview: As part of the fibromyalgia Rheumatoid arthritis Overview: ICD10 Diagnosis Term Senior Product Integrity Engineer Utility documented as of this encounter [...] 03/18/2011 04/04/2013 Overview: ICD10 Diagnosis Term Senior Product Integrity Engineer Utility Encounter for long-term (current) use [...] laparoscopic cholecystectomy 09/19/2007 ICD10 Diagnosis Term Senior Product Integrity Engineer Utility Calculus of bile duct 09/19/2007 11/29/2007 Overview: S/p laparoscopic cholecystectomy 09/19/2007 ICD10 Diagnosis Term Senior Product Integrity Engineer Utility Psoriatic arthropathy 12/29/2011 Overview: On Remicade infusions. Has never received Enbrel or Humira. Rheumatism and fibrositis 10/29/2008 Overview: ICD10 Diagnosis Term Senior Product Integrity Engineer Utility Irritable bowel syndrome 12/29/2011 Overview: Has periods of constipation alternating with loose stools off and on. Hypothyroidism 10/05/2015 Overview: ICD10 Diagnosis Term Senior Product Integrity Engineer Utility Chronic pain syndrome 12/29/2011 Overview: [...] Office Visit Urology Dana De La Torre, VEHICLE CONTROLS ENGINEER [address] [address] [phone] 03/30/2019 Office Visit Pulmonary Disease Simi Veliz DO [address] [place] [address] 04/05/2019 Office Visit Internal Medicine Wally Angulo [address] [place], [place] [address] 04/16/2019 Nurse Visit Pain Medicine Doulatram, Erx 04/17/2019 Office Visit Infectious Disease Sebastian Alberto [address] [facility] [id number] [place], [place] [address] 05/14/2019 Nurse Visit Pain Medicine Doulatram, Erx 06/11/2019 Nurse Visit Pain Medicine Doulatram, Erx 07/09/2019 Nurse Visit Pain Medicine Doulatram, Erx 08/06/2019 Nurse Visit Pain Medicine Doulatram, Erx 08/27/2019 Office Visit Pain Medicine Doulatram, MD Ciro [address] [place], [place] [address] 09/03/2019 Nurse Visit Pain Medicine Doulatram, Erx [...] of this encounter Implants Implanted Type Area Community Dietitian Device Identifier Shelf Expiration Model / Serial Date / Lot Hip HIP documented as of this encounter Results Not on filedocumented in this encounter Insurance Payer Benefit Plan / Subscriber ID Effective Dates Phone Address Type Group MEDICARE MEDICARE PART xxxxxxxxxxx 1992-[place] [phone] Medicare A & B t 2 [id number] THI CORTÉS [id number] documented as of this encounter Advance Directives Type Date Recorded Patient Keymodule Assembly Machine Tender Explanation Advance Directives and Living 05/14/2014 1:59 PM Will Power of Baggage Checker 03/07/2015 2:05 PM
--- OUTSIDE RECORDS SUMMARY | 2019-03-20 18:25 | XMS REPORT | Summary of Care ---
:1955 Author Organization [facility] Address [address] [place] [address] Care Team Providers Name Role Phone Wally Angulo Primary Care Provider Wally Angulo Insurance Hmo Bernabe Poe MD Unavailable Sophia Fisher [facility] Casino Attendant Unavailable Encounter Details Date Type Department Care Team Description 03/15/2019 Patient Secure [facility] Internal Wally Angulo [address] [place] [address] [place] [address] , [address] [place] [address] Allergies Active Allergy Reactions Severity [...] ORAL TAB fluticasone (FLONASE) 50 Use 1 [place] in each 1 Bottle 2 04/25/20 Active [...] drink per day for most women and reed man weight men ? If I am a smoker, stop smoking ? Manage stress by identifying three ways to reduce stress ? [employer] (www.[facility]/[employer]) is an online tool that will allow me to review lab results and portions of my health record, and to communicate with healthcare providers as needed. 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 However, she has been basically asymptomatic since except for functional bowel symptoms Chronic pain syndrome Overview: As part of the fibromyalgia Rheumatoid arthritis Overview: ICD10 Diagnosis Term Care Management Coordinator Utility documented as of this encounter [...] arthritis 03/18/2011 04/04/2013 Overview: ICD10 Diagnosis Term Care Management Coordinator Utility Encounter for long-term (current) use [...] S/p laparoscopic cholecystectomy 09/19/2007 ICD10 Diagnosis Term Care Management Coordinator Utility Calculus of bile duct 09/19/2007 11/29/2007 Overview: S/p laparoscopic cholecystectomy 09/19/2007 ICD10 Diagnosis Term Care Management Coordinator Utility Psoriatic arthropathy 12/29/2011 Overview: On Remicade infusions. Has never received Enbrel or Humira. Rheumatism and fibrositis 10/29/2008 Overview: ICD10 Diagnosis Term Care Management Coordinator Utility Irritable bowel syndrome 12/29/2011 Overview: Has periods of constipation alternating with loose stools off and on. Hypothyroidism 10/05/2015 Overview: ICD10 Diagnosis Term Care Management Coordinator Utility Chronic pain syndrome 12/29/2011 Overview: [...] Office Visit Urology Dana De La Torre, RN [facility] [address] [address] 03/30/2019 Office Visit Pulmonary Disease Simi Veliz DO [address] [place] [address] [phone] 04/05/2019 Office Visit Internal Medicine Wally Angulo [address] [facility] [address] [place] [address] [phone] 04/16/2019 Nurse Visit Pain Medicine Doulatram, Erx 04/17/2019 Office Visit Infectious Disease DollySebastian swan [address] [facility] UR9849 [place] [address] [phone] 05/14/2019 Nurse Visit Pain Medicine Doulatram, Erx 06/11/2019 Nurse Visit Pain Medicine Doulatram, Erx 07/09/2019 Nurse Visit Pain Medicine Doulatram, Erx 08/06/2019 Nurse Visit Pain Medicine Doulatram, Erx 08/27/2019 Office Visit Pain Medicine Doulatram, MD Ciro [address] [facility] [id number] [place], [place] [address] 09/03/2019 Nurse Visit Pain Medicine Doulatram, Erx [...] of this encounter Implants Implanted Type Area Managing Consultant Clinical Professor Device Identifier Shelf Expiration Model / Serial Date / Lot Hip HIP documented as of this encounter Results Not on filedocumented in this encounter Insurance Payer Benefit Plan / Subscriber ID Effective Dates Phone Address Type Group MEDICARE MEDICARE PART xxxxxxxxxxx 1992-[place] [phone] Medicare A & B t 2 [id number] THI CORTÉS [id number] documented as of this encounter Advance Directives Type Date Recorded Patient Lead Etl Developer Explanation Advance Directives and Living 05/14/2014 1:59 PM Will Power of Technical Services Assistant 03/07/2015 2:05 PM
--- OUTSIDE RECORDS SUMMARY | 2019-03-20 18:25 | XMS REPORT | Summary of Care ---
:1955 Author Organization [facility] Address [address] [place] [address] Care Team Providers Name Role Phone Wally Angulo Primary Care Provider Wally Angulo Insurance Hmo Bernabe Poe MD Unavailable Sophia Fisher 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 If I am a smoker, stop smoking ? Manage stress by identifying three ways to reduce stress ? [employer] (www.[facility]/[employer]) is an online tool that will allow me to review lab results and portions of my health record, and to communicate with healthcare providers as needed. 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 However, she has been basically asymptomatic since except for functional bowel symptoms Chronic pain syndrome Overview: As part of the fibromyalgia Rheumatoid arthritis Overview: ICD10 Diagnosis Term Returned Case Inspector Utility documented as of this encounter (statuses [...] arthritis 03/18/2011 04/04/2013 Overview: ICD10 Diagnosis Term Returned Case Inspector Utility Encounter for long-term (current) use of [...] S/p laparoscopic cholecystectomy 09/19/2007 ICD10 Diagnosis Term Returned Case Inspector Utility Calculus of bile duct 09/19/2007 11/29/2007 Overview: S/p laparoscopic cholecystectomy 09/19/2007 ICD10 Diagnosis Term Returned Case Inspector Utility Psoriatic arthropathy 12/29/2011 Overview: On Remicade infusions. Has never received Enbrel or Humira. Rheumatism and fibrositis 10/29/2008 Overview: ICD10 Diagnosis Term Returned Case Inspector Utility Irritable bowel syndrome 12/29/2011 Overview: Has periods of constipation alternating with loose stools off and on. Hypothyroidism 10/05/2015 Overview: ICD10 Diagnosis Term Returned Case Inspector Utility Chronic pain syndrome 12/29/2011 Overview: As [...] Office Visit Urology Dana De La Torre, HOME SCHOOL LIAISON OFFICER [address] [address] [phone] 03/30/2019 Office Visit Pulmonary Disease Simi Veliz DO [address] [place] [address] 04/05/2019 Office Visit Internal Medicine Wally Angulo [address] [place], [place] [address] 04/16/2019 Nurse Visit Pain Medicine Doulatram, Erx 04/17/2019 Office Visit Infectious Disease Sebastian Alberto [address] [facility] [address] [place], [place] [address] 05/14/2019 Nurse Visit Pain Medicine Doulatram, Erx 06/11/2019 Nurse Visit Pain Medicine Doulatram, Erx 07/09/2019 Nurse Visit Pain Medicine Doulatram, Erx 08/06/2019 Nurse Visit Pain Medicine Doulatram, Erx 08/27/2019 Office Visit Pain Medicine Doulatram, MD Ciro [id number] [place], [place] [address] 09/03/2019 Nurse Visit Pain Medicine Doulatram, Erx [...] of this encounter Implants Implanted Type Area Bradley Linebacker Crewmember Device Identifier Shelf Expiration Model / Serial Date / Lot Hip HIP documented as of this encounter Results Not on filedocumented in this encounter Insurance Payer Benefit Plan / Subscriber ID Effective Dates Phone Address Type Group MEDICARE MEDICARE PART xxxxxxxxxxx 1992-[place] [phone] Medicare A & B t 2 [id number] THI CORTÉS [id number] documented as of this encounter Advance Directives Type Date Recorded Patient Pearler Explanation Advance Directives and Living 05/14/2014 1:59 PM Will Power of Lead Pharmacy Technician 03/07/2015 2:05 PM
--- OUTSIDE RECORDS SUMMARY | 2019-03-20 18:26 | XMS REPORT | Summary of Care ---
:1955 Author Organization [facility] Address [address] [place] [address] Care Team Providers Name Role Phone Wally Angulo Primary Care Provider Wally Angulo Insurance Hmo Bernabe Poe MD Unavailable Sophia Fisher [facility] [place] Roll Press Operator Unavailable Encounter Details Date Type Department Care Team Description 03/20/2019 Orders Only [facility] Doctor Unassigned, No [address] [facility] [place] [address] [address] [place] [address] Allergies Active Allergy Reactions Severity Noted Date Comments Aripiprazole Unknown - See comments 04/10/2014 Symptoms of tardive dyskinesia Patient states that she is currently taking medication. Quetiapine Fumarate Unknown - See comments 03/05/2014 tremors Sulfasalazine Hives 01/21/2011 documented as of this encounter (statuses as of 03/20/2019) Medications Medication Sig Dispensed Refills Start End Status Date Date MULTIPLE VITAMINS DAILY 2 pills a day 0 Active ORAL TAB fluticasone (FLONASE) 50 Use 1 [place] in each 1 Bottle 2 04/25/20 Active [...] Apply 1 Patch to 10 Patch 0 03/19/20 Active patchIndications: skin every 72 19 Psoriatic arthropathy (seventy-two) hours. FENTanyl 25 mcg/hr Apply 1 Patch to 10 Patch 0 03/19/20 Active patchIndications: skin every 72 19 Chronic pain syndrome (seventy-two) hours. HYDROcodone-acetaminophe Take 1 pill by mouth 150 tablet 0 03/19/20 Active n (NORCO) 10-325 mg every 4 hours as 19 tabletIndications: needed for pain, Max Psoriatic arthropathy, 6 daily Chronic pain syndrome documented as of this encounter (statuses as of 03/20/2019) Active Problems Patient Care Coordination Note Hypertension [...] drink per day for most women and manager of broadcast content weight men ? If I am a smoker, stop smoking ? Manage stress by identifying three ways to reduce stress ? [employer] ([email or web address]/[employer]) is an online tool that will allow me to review lab results and portions of my health record, and to communicate with healthcare providers as needed. If I do not have a [employer] account, I will discuss this with my [...] and was evaluated by a GI [facility] bpm consultant in [place] about 10 years ago who told her she had then inflammatory bowel disease. However, she has been basically asymptomatic since except for functional bowel symptoms Chronic pain syndrome Overview: As part of the fibromyalgia Rheumatoid arthritis Overview: ICD10 Diagnosis Term Battery Assembler Dry Cell Utility documented as of this encounter (statuses as of 03/20/2019) Resolved Problems Problem Noted Date Resolved Date [...] arthritis 03/18/2011 04/04/2013 Overview: ICD10 Diagnosis Term Battery Assembler Dry Cell Utility Encounter for long-term (current) use of [...] S/p laparoscopic cholecystectomy 09/19/2007 ICD10 Diagnosis Term Battery Assembler Dry Cell Utility Calculus of bile duct 09/19/2007 11/29/2007 Overview: S/p laparoscopic cholecystectomy 09/19/2007 ICD10 Diagnosis Term Battery Assembler Dry Cell Utility Psoriatic arthropathy 12/29/2011 Overview: On Remicade infusions. Has never received Enbrel or Humira. Rheumatism and fibrositis 10/29/2008 Overview: ICD10 Diagnosis Term Battery Assembler Dry Cell Utility Irritable bowel syndrome 12/29/2011 Overview: Has periods of constipation alternating with loose stools off and on. Hypothyroidism 10/05/2015 Overview: ICD10 Diagnosis Term Battery Assembler Dry Cell Utility Chronic pain syndrome 12/29/2011 Overview: As part of the fibromyalgia Psoriatic arthropathy 01/05/2015 documented as of this encounter (statuses as of 03/20/2019) Immunizations Name Administration Dates Next Due H1n1 [...] Office Visit Urology Dana De La Torre, LATEX THREAD MACHINE OPERATOR [address] [address] [phone] 03/30/2019 Office Visit Pulmonary Disease Simi Veliz DO [address] [place] [id number] 04/05/2019 Office Visit Internal Medicine Wally Angulo [id number] [place], [place] [id number] 04/16/2019 Nurse Visit Pain Medicine Doulatram, Erx 04/17/2019 Office Visit Infectious Disease DollySebastian lazaro [id number] [place], [place] [phone] 05/14/2019 Nurse Visit Pain Medicine Doulatram, Erx 06/11/2019 Nurse Visit Pain Medicine Doulatram, Erx 07/09/2019 Nurse Visit Pain Medicine Doulatram, Erx 08/06/2019 Nurse Visit Pain Medicine Doulatram, Erx 08/27/2019 Office Visit Pain Medicine Doulatram, MD Ciro [id number] [place], [place] [phone] 09/03/2019 Nurse Visit Pain Medicine Doulatram, Erx [...] of this encounter Implants Implanted Type Area Supervisor [employer] Device Identifier Shelf Expiration Model / Serial Date / Lot Hip HIP documented as of this encounter Procedures Procedure Name Priority Date/Time Associated Diagnosis Comments EXTERNAL PROVIDER Routine 03/20/2019 12:01 AM CDT RECORDS documented in this encounter Results Not on filedocumented in this encounter Insurance Payer Benefit Plan / Subscriber ID Effective Dates Phone Address Type Group MEDICARE MEDICARE PART xxxxxxxxxxx 1992-Ari [phone] [address] Medicare A & B t 2 [id number] [place] [id number] documented as of this encounter Advance Directives Type Date Recorded Patient Senior Qc Technician Explanation Advance Directives and Living 05/14/2014 1:59 PM Will Power of Encoding Clerk 03/07/2015 2:05 PM
--- OUTSIDE RECORDS SUMMARY | 2019-03-20 18:26 | XMS REPORT | Summary of Care ---
:1955 Author Organization [facility] Address [address] [place] [address] Care Team Providers Name Role Phone Wally Angulo Primary Care Provider Wally Angulo Insurance Hmo Bernabe Poe MD Unavailable Sophia Fisher [facility] [place] Operator Unavailable Reason for Visit Reason Comments Assessment Encounter Details Date Type Department Care Team Description 03/20/2019 Telephone [facility] Internal Wally Angulo Assessment Medicine[address] [place] [address] [facility] [address], [address] [place] [address] [phone] Allergies Active Allergy Reactions Severity Noted Date [...] ORAL TAB fluticasone (FLONASE) 50 Use 1 [place] in each 1 Bottle 2 10/16/20 Active [...] drink per day for most women and family coach weight men ? If I am a smoker, stop smoking ? Manage stress by identifying three ways to reduce stress ? [employer] (www.[email or web address]/[employer]) is an online tool that will allow me to review lab results and portions of my health record, and to communicate with healthcare providers as needed. If I do not have a [employer] account, I will discuss this with my [...] woman exam with routine gynecological exam 03/11/2015 [facility] current use of opiate analgesic 03/11/2015 Personal [...] stools and was evaluated by a GI erp consultant in [place] about 10 years ago who told her she had then inflammatory bowel disease. However, she has been basically asymptomatic since except for functional bowel symptoms Chronic pain syndrome Overview: As part of the fibromyalgia Rheumatoid arthritis Overview: ICD10 Diagnosis Term Recovery Auditor Utility documented as of this encounter (statuses [...] arthritis 03/18/2011 04/04/2013 Overview: ICD10 Diagnosis Term Recovery Auditor Utility Encounter for long-term (current) use of [...] S/p laparoscopic cholecystectomy 09/19/2007 ICD10 Diagnosis Term Recovery Auditor Utility Calculus of bile duct 09/19/2007 11/29/2007 Overview: S/p laparoscopic cholecystectomy 09/19/2007 ICD10 Diagnosis Term Recovery Auditor Utility Psoriatic arthropathy 12/29/2011 Overview: On Remicade infusions. Has never received Enbrel or Humira. Rheumatism and fibrositis 10/29/2008 Overview: ICD10 Diagnosis Term Recovery Auditor Utility Irritable bowel syndrome 12/29/2011 Overview: Has periods of constipation alternating with loose stools off and on. Hypothyroidism 10/05/2015 Overview: ICD10 Diagnosis Term Recovery Auditor Utility Chronic pain syndrome 12/29/2011 Overview: As [...] Office Visit Urology Dana De La Torre, PATIENT SERVICE COORDINATOR [address] [id number] 03/30/2019 Office Visit Pulmonary Disease Simi Veliz, DO [address] [place] [phone] 04/05/2019 Office Visit Internal Medicine Wally Angulo [address] [place], [place] [phone] 04/16/2019 Nurse Visit Pain Medicine Doulatram, Erx 04/17/2019 Office Visit Infectious Disease Sebastian Alberto Kendy [id number] [place], [place] [phone] 05/14/2019 Nurse Visit Pain Medicine Doulatram, Erx 06/11/2019 Nurse Visit Pain Medicine Doulatram, Erx 07/09/2019 Nurse Visit Pain Medicine Doulatram, Erx 08/06/2019 Nurse Visit Pain Medicine Doulatram, Erx 08/27/2019 Office Visit Pain Medicine Doulatram, MD Ciro [id number] [place], [place] [phone] 09/03/2019 Nurse Visit Pain Medicine Doulatram, Erx [...] of this encounter Implants Implanted Type Area Gardening Manager Device Identifier Shelf Expiration Model / Serial Date / Lot Hip HIP documented as of this encounter Results Not on filedocumented in this encounter Insurance Payer Benefit Plan / Subscriber ID Effective Dates Phone Address Type Group MEDICARE MEDICARE PART xxxxxxxxxxx 1992-[place] [phone] [address] Medicare A & B t 2 [id number] [place] [id number] documented as of this encounter Advance Directives Type Date Recorded Patient Mail Messenger Explanation Advance Directives and Living 05/14/2014 1:59 PM Will Power of Adjunct Psychology Professor 03/07/2015 2:05 PM
[2019-03-20] MEDS ORDERED: NA CHLORIDE 0.9% 2,000 ML ONE (18:48)
[2019-03-20] MEDS ORDERED: DIPHENHYDRAMINE 50 MG/ML VIAL ONE (18:59)
[2019-03-20 19:00] LABS: Absolute Lymphocytes (CBC) 1.3 K/uL (0.7-4.9); Basophils % 0.5 % (0-1.3); Hematocrit 41.8 % (36.0-45.0); Lymphocytes % 22.3 % (15.3-44.8); MPV 8.9 fL (7.6-11.3); RBC Red Blood Cell Count 5.11 M/uL (3.86-4.86)
[2019-03-20 19:04] LABS: Protime INR 1.06
[2019-03-20 19:21] LABS: ALT/SGPT 19 U/L (12-78); AST/SGOT 20 U/L (15-37); Albumin 3.7 g/dL (3.4-5.0); Alkaline Phosphatase 125 U/L (45-117); BUN Blood Urea Nitrogen 16 mg/dL (7-18); Bicarbonate 25 mmol/L (21-32); Bilirubin Direct 0.1 mg/dL (0-0.2); Bilirubin Total 0.3 mg/dL (0.2-1.0); CKMB Creatine Kinase MB 1.3 ng/mL (0.3-3.6); Creatine Phosphokinase 98 U/L (26-192); Glucose Level 90 mg/dL (74-106); Lipase 47 U/L (73-393); Potassium 4.3 mmol/L (3.5-5.1); Protein, Total 8.6 g/dL (6.4-8.2); Sodium Level 141 mmol/L (136-145); Troponin (Emerg Dept Use Only) < 0.02 ng/mL (0.0-0.045)
--- NOTE | 2019-03-20 19:51 | RAD REPORT ---
EXAM DESCRIPTION: CT - Head Brain Wo Cont - 03/20/2019 7:34 pm CLINICAL HISTORY: Alteration of awareness/confusion COMPARISON: 2018 TECHNIQUE: Computed axial tomography of the head was obtained. IV contrast was not requested. All CT scans are performed using dose optimization technique as appropriate and may include automated exposure control or mA/KV adjustment according to patient size. FINDINGS: An intracranial bleed is not seen . The ventricles are normal in caliber. No extra-axial fluid collection is noted. Mild low-density areas within periventricular, deep and subcortical white matter likely represent isc hemic changes secondary to small vessel disease. Fluid within the sinuses/ mastoids is not seen. IMPRESSION: No acute intracranial abnormality is seen. If patient's symptoms persist MRI of the bra in would be recommended.
--- NOTE | 2019-03-20 20:21 | RAD REPORT ---
EXAM DESCRIPTION: Wandy Single View03/20/2019 6:59 pm CLINICAL HISTORY: Congestion COMPARISON: 2018 FINDINGS: The lungs appear clear of acute infiltrate. The heart is normal size IMPRESSION: No acute abnormalities displayed
[2019-03-20] MEDS ORDERED: CEFTRIAXONE/SWI 1gm 1 GM/10 ML SYR ONE (20:59)
[2019-03-20 21:12] LABS: Urine Blood 1+ (NEG); Urine Glucose NEGATIVE (NEG); Urine Protein 1+ (NEG); Urine pH 7.5 (5.0-7.0)
--- NOTE | 2019-03-20 21:12 | ER ---
Nurse's Notes [facility] Name: Heidy Robison Age: 63 yrs Sex: Female : 1955 Arrival Date: 03/20/2019 Time: 18:10 Bed 5 Private MD: Diagnosis: Cystitis;Altered mental status, unspecified Presentation: 03/20 18:10 Presenting complaint: EMS states: DAUGHTER CALLED IN FOR ALTERED MENTAL STATUS OF THE rv PATIENT. PATIENT IS NORMALLY A AND 0 X 4 AT HOME. TAKES CARE OF HERSELF. HER ROUTINE IS TO GET UP AT 630AM AND WALK THE DOG. TODAY, DAUGHTER CHECKED HER SHE IS ON THE BED ALL DAY. VOMITED AND URINATED ON HER SELF. SHE HAD A HISTORY OF SEROTONIN SYNDROME A YEAR AGO. Transition of care: patient was not received from another setting of care. Onset of symptoms was March 20, 2019 at 06:30. Risk Assessment: Do you want to hurt yourself or someone else? Unable to obtain. Initial Sepsis Screen: Does the patient meet any 2 criteria? No. Patient's initial sepsis screen is negative. Does the patient have a suspected source of infection? No. Patient's initial sepsis screen is negative. Care prior to arrival: None. 18:10 Method Of Arrival: EMS: [facility] rv 18:10 Acuity: ADELE 3 rv Historical: - Allergies: 18:15 Abilify; rv 18:15 apremilast; rv 18:15 FLU VACCINE; rv 18:15 Seroquel; rv 18:15 Sulfa (Sulfonamide Antibiotics); rv - PMHx: 18:15 COPD; CVA; Lupus; RA; MAC; Fibromyalgia; SEROTONIN SYNDROME; INFECTIOUS LUNG DISORDER; rv Depression; Anxiety; - PSHx: 18:15 Hysterectomy; HIP REPLACEMENT; Gastric Bypass; Cholecystectomy; rv - Immunization history:: Adult Immunizations up to date. - Social history:: Smoking status: Patient/guardian denies using tobacco, Patient/guardian denies using alcohol, street drugs, The patient lives with family. - Ebola Screening: : No symptoms or risks identified at this time. - Family history:: not pertinent. Screenin:17 Abuse screen: Denies threats or abuse. Denies injuries from another. Nutritional rv screening: No deficits noted. Tuberculosis screening: No symptoms or risk factors identified. Fall Risk None identified. Assessment: 18:16 General: Appears in no apparent distress. Behavior is combative, uncooperative, rv CONFUSED. Pain: Denies pain. Neuro: Level of Consciousness is confused, Oriented to none. Cardiovascular: Patient's skin is warm and dry. Respiratory: Airway is patent. GI: No signs and/or symptoms were reported involving the gastrointestinal system. : No signs and/or symptoms were reported regarding the genitourinary system. EENT: No signs and/or symptoms were reported regarding the EENT system. Derm: Skin is intact. Musculoskeletal: No signs and/or symptoms reported regarding the musculoskeletal system. 22:00 Reassessment: Patient and/or family updated on plan of care and expected duration. Pain ea level reassessed. Pt alert and oriented to self and place. Respirations even and unlabored. Chest expansions even and symmetrical. No s/s of pain or discomfort noted at this time. Pt denies pain or discomfort at this time. Family remains at bedside. 22:35 Reassessment: Report given to receiving nurse on fourth floor. ea 23:00 Reassessment: Patient and/or family updated on plan of care and expected duration. Pain ea level reassessed. Pt alert and oriented to self and place. Pt admitted to fourth floor, pt taken via stretcher per tech, pt accompanied by family. Pt tolerating well. Vital Signs: 18:19 Weight 54.43 kg; rv 19:34 Pulse 86; Resp 18; Pulse Ox 100% ; rv 20:44 Temp 98.6; rv 20:47 BP 120 / 97; Pulse 79; Resp 16; Pulse Ox 95% ; ea 21:30 BP 142 / 73; Pulse 72; Resp 18; Pulse Ox 97% on R/A; ea 22:15 BP 153 / 77; Pulse 74; Resp 18; Pulse Ox 95% on R/A; ea 23:00 BP 158 / 76; Pulse 67; Resp 18; Temp 98(TE); Pulse Ox 100% ; ea 19:34 PATIENT IS COMBATIVE rv ED Course: 18:10 Patient arrived in ED. rv 18:13 Triage completed. rv 18:16 Cate Nation MD is Attending Physician. ma2 18:17 Patient has correct armband on for positive identification. Bed in low position. Call rv light in reach. Side rails up X 1. Pulse ox on. NIBP on. 18:17 Patient placed in the treatment room, on a stretcher, on pulse oximetry, Patient rv notified of wait time. 18:18 Cornell Ferraro, RN is Primary Nurse. rv 19:07 Chest Single View XRAY In Process Unspecified. EDMS 19:41 CT Head Brain wo Cont In Process Unspecified. EDMS 21:09 Cate Juarez MD is Hospitalizing Provider. ma2 22:53 No provider procedures requiring assistance completed. Patient admitted, IV remains in ea place. Administered Medications: 18:45 Drug: Ativan 1 mg Route: IM; Site: left deltoid; rv 18:55 Drug: NS 0.9% (30 ml/kg) 30 ml/kg Route: IV; Rate: bolus; Site: right forearm; rv 19:03 Drug: Benadryl 50 mg {Note: given iv as ordered verbally.} Route: IM; Site: Other; rv 19:30 Drug: Ativan 2 mg Route: IVP; Site: right forearm; rv 21:04 Drug: Rocephin 1 grams Route: IV; Rate: calculated rate; Site: right forearm; rv Outcome: 21:09 Decision to Hospitalize by Provider. ma2 21:30 Instructed on the need for admit. ea 23:14 Admitted to Med/surg accompanied by tech, via stretcher, with chart, Report called to ea Receiving nurse on fourth floor 23:14 Condition: stable 23:18 Patient left the ED. ea Signatures: Dispatcher [employer] Evi Edwards RN RN ea Alzahri, Mohammad, MD MD riCornell Avendaño, RORY RN rv
--- NOTE | 2019-03-20 21:13 | EDPHYS ---
Physician Documentation [facility] Name: Heidy Robison Age: 63 yrs Sex: Female : 1955 Arrival Date: 03/20/2019 Time: 18:10 Bed 5 Private MD: ED Physician Cate Nation HPI: 03/20 21:07 This 63 yrs old Female presents to ER via EMS with unknown complaint. ma2 21:07 The patient presents with confusion. Onset: The symptoms/episode began/occurred ma2 gradually, 2 day(s) ago. Associated signs and symptoms: Pertinent negatives: agitation, chest pain, confusion, headache. Patient's baseline: Neuro: alert and fully oriented. The patient has experienced similar episodes in the past. Historical: - Allergies: 18:15 Abilify; rv 18:15 apremilast; rv 18:15 FLU VACCINE; rv 18:15 Seroquel; rv 18:15 Sulfa (Sulfonamide Antibiotics); rv - PMHx: 18:15 COPD; CVA; Lupus; RA; MAC; Fibromyalgia; SEROTONIN SYNDROME; INFECTIOUS LUNG DISORDER; rv Depression; Anxiety; - PSHx: 18:15 Hysterectomy; HIP REPLACEMENT; Gastric Bypass; Cholecystectomy; rv - Immunization history:: Adult Immunizations up to date. - Social history:: Smoking status: Patient/guardian denies using tobacco, Patient/guardian denies using alcohol, street drugs, The patient lives with family. - Ebola Screening: : No symptoms or risks identified at this time. - Family history:: not pertinent. ROS: 21:07 Constitutional: Negative for fever, chills, and weight loss. ma2 21:07 All other systems are negative. Exam: 21:07 Constitutional: This is a well developed, well nourished patient who is awake, alert, ma2 and in no acute distress. 21:07 Chest/axilla: Normal chest wall appearance and motion. Nontender with no deformity. No lesions are appreciated. Cardiovascular: Regular rate and rhythm with a normal S1 and S2. No gallops, murmurs, or rubs. Normal PMI, no JVD. No pulse deficits. Respiratory: Lungs have equal breath sounds bilaterally, clear to auscultation and percussion. No rales, rhonchi or wheezes noted. No increased work of breathing, no retractions or nasal flaring. Abdomen/GI: Soft, non-tender, with normal bowel sounds. No distension or tympany. No guarding or rebound. No evidence of tenderness throughout. 21:07 Neuro: Orientation: Not oriented to person, place, time, Mentation: is normal, Memory: Cerebellar function: is grossly normal, Motor: is normal, Sensation: is normal, Deep tendon reflexes are normal. Vital Signs: 18:19 Weight 54.43 kg; rv 19:34 Pulse 86; Resp 18; Pulse Ox 100% ; rv 20:44 Temp 98.6; rv 20:47 BP 120 / 97; Pulse 79; Resp 16; Pulse Ox 95% ; ea 21:30 BP 142 / 73; Pulse 72; Resp 18; Pulse Ox 97% on R/A; ea 22:15 BP 153 / 77; Pulse 74; Resp 18; Pulse Ox 95% on R/A; ea 23:00 BP 158 / 76; Pulse 67; Resp 18; Temp 98(TE); Pulse Ox 100% ; ea 19:34 PATIENT IS COMBATIVE rv MDM: 18:16 Patient medically screened. ma2 21:07 Differential Diagnosis: intracranial bleed, sepsis, TIA, UTI, volume depletion. ma2 Differential Diagnosis: volume depletion, unlikely serotonin syndrome as no fever or regidity . Data reviewed: vital signs, nurses notes. Counseling: I had a detailed discussion with the patient and/or guardian regarding: the historical points, exam findings, and any diagnostic results supporting the discharge/admit diagnosis, the presence of at least one elevated blood pressure reading (>120/80) during this emergency department visit, the need for further work-up and treatment in the hospital. 03/20 18:17 Order name: Basic Metabolic Panel; Complete Time: 20:24 [facility] 03/20 18:17 Order name: Blood Culture Adult (2) [facility] 03/20 18:17 Order name: CBC with Diff; Complete Time: 20:24 [facility] 03/20 18:17 Order name: Ckmb; Complete Time: 20:24 [facility] 03/20 18:17 Order name: CPK; Complete Time: 20:24 [facility] 03/20 18:17 Order name: Lactate; Complete Time: 20:24 [facility] 03/20 18:17 Order name: LFT's; Complete Time: 20:24 [facility] 03/20 18:17 Order name: Lipase; Complete Time: 20:24 [facility] 03/20 18:17 Order name: Procalcitonin; Complete Time: 20:24 [facility] 03/20 18:17 Order name: Protime (+inr); Complete Time: 20:24 [facility] 03/20 18:17 Order name: Ptt, Activated; Complete Time: 20:24 [facility] 03/20 18:17 Order name: Troponin (emerg Dept Use Only); Complete Time: 20:24 [facility] 03/20 18:17 Order name: Urine Microscopic Only [facility] 03/20 21:06 Order name: Urine Dipstick--Ancillary (enter results) [facility] 03/20 18:17 Order name: Chest Single View XRAY; Complete Time: 21:00 [facility] 03/20 18:17 Order name: Accucheck; Complete Time: 18:55 [facility] 03/20 18:17 Order name: CT Head Brain wo Cont; Complete Time: 20:36 [facility] 03/20 21:14 Order name: Urine Dipstick-Ancillary [facility] 03/20 21:27 Order name: Urine Culture [facility] 03/20 21:31 Order name: CONS Pharmacy Consult [facility] 03/20 21:31 Order name: NPO [facility] 03/20 21:32 Order name: CBC with Automated Diff [facility] 03/20 21:32 Order name: CBC with Automated Diff [facility] 03/20 21:32 Order name: Comprehensive Metabolic Panel [facility] 03/20 21:32 Order name: Comprehensive Metabolic Panel [facility] 03/20 18:17 Order name: Cardiac monitoring; Complete Time: 18:55 [facility] 03/20 18:17 Order name: EKG - Nurse/Tech; Complete Time: 20:44 [facility] 03/20 18:17 Order name: IV Saline Lock - Large Bore; Complete Time: 18:55 [facility] 03/20 18:17 Order name: Labs collected and sent; Complete Time: 18:55 [facility] 03/20 18:17 Order name: O2 Per Protocol; Complete Time: 18:55 [facility] 03/20 18:17 Order name: O2 Sat Monitoring; Complete Time: 18:55 [facility] 03/20 18:17 Order name: Urine Dipstick-Ancillary (obtain specimen); Complete Time: 21:06 ma2 Administered Medications: 18:45 Drug: Ativan 1 mg Route: IM; Site: left deltoid; rv 18:55 Drug: NS 0.9% (30 ml/kg) 30 ml/kg Route: IV; Rate: bolus; Site: right forearm; rv 19:03 Drug: Benadryl 50 mg {Note: given iv as ordered verbally.} Route: IM; Site: Other; rv 19:30 Drug: Ativan 2 mg Route: IVP; Site: right forearm; rv 21:04 Drug: Rocephin 1 grams Route: IV; Rate: calculated rate; Site: right forearm; rv Disposition: 03/20/19 21:09 Hospitalization ordered by Cate Juarez for Observation. Preliminary diagnosis are Cystitis, Altered mental status, unspecified. - Bed requested for Telemetry/MedSurg (observation). - Status is Observation. ea - Condition is Stable. - Problem is new. - Symptoms have worsened. UTI on Admission? Yes Signatures: Dispatcher [employer] Ioana Vázquez RN RN Evi Jackson RN RN ea Alzahri, Mohammad, MD MD [facility] Cornell Ferraro RN RN rv Corrections: (The following items were deleted from the chart) 21:44 21:09 Hospitalization Ordered by Cate Juarez MD for Observation. Preliminary cg diagnosis is Cystitis; Altered mental status, unspecified. Bed requested for Telemetry/MedSurg (observation). Status is Observation. Condition is Stable. Problem is new. Symptoms have worsened. UTI on Admission? Yes. [facility] 23:18 21:44 03/20/2019 21:09 Hospitalization Ordered by Cate Juarez MD for Observation. ea Preliminary diagnosis is Cystitis; Altered mental status, unspecified. Bed requested for Telemetry/MedSurg (observation). Status is Observation. Condition is Stable. Problem is new. Symptoms have worsened. UTI on Admission? Yes.
[2019-03-20 21:22] LABS: Urine Bacteria 20-50 /HPF (<20); Urine Culture Reflex Order REFLEXED
[2019-03-20] MEDS ORDERED: ONDANSETRON 4 MG/2 ML VIAL IV PRN (21:26)
[2019-03-20] MEDS ORDERED: ACETAMINOPHEN 500 MG TAB PO PRN (21:26)
[2019-03-20] MEDS ORDERED: MORPHINE 2 MG/ML SYR IV PRN (21:26)
[2019-03-20] MEDS: NA CHLORIDE 0.9% 1,000 ML IV SCH (22:00)
[2019-03-21 02:11] VITALS: BMI 22.4
[2019-03-21 04:15] LABS: Absolute Lymphocytes (CBC) 1.5 K/uL (0.7-4.9); Basophils % 0.8 % (0-1.3); Lymphocytes % 31.9 % (15.3-44.8); MPV 8.8 fL (7.6-11.3); RBC Red Blood Cell Count 4.53 M/uL (3.86-4.86)
[2019-03-21 04:49] LABS: Albumin 3.1 g/dL (3.4-5.0); Bilirubin Total 0.3 mg/dL (0.2-1.0); Potassium 3.7 mmol/L (3.5-5.1); Protein, Total 7.3 g/dL (6.4-8.2)
[2019-03-21] MEDS: LEVOTHYROXINE SOD 0.1 MG TAB PO SCH (05:19)
[2019-03-21] MEDS: BUSPIRONE HCL 5 MG TABLET PO SCH ×3 (08:38→23:46)
[2019-03-21] MEDS: CEFTRIAXONE/SWI 1gm 1 GM/10 ML SYR IV SCH ×2 (08:38→20:16)
[2019-03-21] MEDS: DULOXETINE 30 MG CAP PO SCH ×2 (08:38→08:46)
[2019-03-21] MEDS: NA CHLORIDE 0.9% 1,000 ML IV SCH ×3 (08:39→23:47)
[2019-03-21] MEDS ORDERED: DRISDOL (VITAMIN D=ERGOCALCIFEROL) 50000 UNIT CAP PO SCH (09:00)
[2019-03-21] MEDS ORDERED: CEFTRIAXONE 1 GM/NS 50 ML 1 GM/50 ML BAG IV SCH (09:00)
[2019-03-21 09:06] VITALS: O2SAT 92
--- NOTE | 2019-03-21 10:34 | P.HP ---
Certification for Inpatient Patient admitted to: Observation With expected LOS: <2 Midnights Patient will require the following post-hospital care: None Practitioner: I am a practitioner with admitting privileges, knowledge of patient current condition, hospital course, and medical plan of care. Services: Services provided to patient in accordance with Admission requirements found in Title 42 Section 412.3 of the Code of Federal Regulations Patient History Date of Service: 03/20/19 Reason for admission: ALTERED MENTAL STATUS History of Present Illness: Patient is a 63-year-old female who was admitted to the hospital with altered mental status. Patient states she has a history of rheumatoid arthritis and psoriatic arthritis. Her hands are severely deviated. She has significant arthritis in her joints. She has been having dysuria and came into the ER for evaluation because she was not feeling like herself. In the ER, she was found to have a urinary tract infection. She was started on IV antibiotics. IV hydration as well. Patient will be admitted to the hospital for further treatment. Allergies flu vaccine 2011-(18-64 yrs) Allergy (Unknown, Verified 08/16/17 18:16) Shortness of breath apremilast [From Otezla] Allergy (Verified 08/16/17 18:16) Unknown aripiprazole [From Abilify] Allergy (Verified 08/16/17 18:16) Unknown quetiapine fumarate [From Seroquel] Allergy (Verified 08/16/17 18:16) Unknown Sulfa (Sulfonamide Antibiotics) Allergy (Verified 03/20/19 23:15) Anaphylaxis H1N1 vaccine Allergy (Uncoded 06/25/15 05:09) Unknown Home Medications: Amlodipine Besylate 10 mg PO DAILY 11/16/17 Duloxetine HCl 30 mg PO DAILY 11/16/17 Albuterol Inhaler [Ventolin Inhaler*] 2 puff IH Q6H PRN 03/21/19 Albuterol Neb [Proventil 0.083% Neb Soln] 3 ml IH Q6H PRN 03/21/19 Apremilast [Otezla] 1 tab PO BID 03/21/19 Apremilast [Otezla] 1 tab PO BID 03/21/19 Baclofen 1 tab PO TID 03/21/19 Buspirone HCl 10 mg PO TID 03/21/19 Calcipotriene/Betamethasone [Enstilar 0.005%-0.064% Foam] 1 neetu .ROUTE DAILY 05/29 Celecoxib 1 cap PO DAILY 03/21/19 Cyanocobalamin [Vitamin B-12*] 1 ml IM Q7D 03/21/19 Diclofenac Epolamine 1 neetu TOP DAILY PRN 03/21/19 Diclofenac Sodium [Voltaren] 1 neetu TOP BID 03/21/19 Ergocalciferol (Vitamin D2) [Vitamin D2] 1 cap PO SEECOM 03/21/19 Eszopiclone 1 tab PO BEDTIME PRN 03/21/19 Fentanyl Patch [Duragesic Patch*] 1 patch TD Q72H 03/21/19 Fluticasone Propion/Salmeterol [Fluticasone-Salmeterol 500-50] 1 puff IH Q12H Fluticasone [Flonase 50MCG Nasal [place]*] 1 spray IH DAILY 03/21/19 Fluticasone/Salmeterol [Advair Hfa 230-21 Mcg Inhaler] 2 puff IH BID 03/21/19 Hydrocodone Bit/Acetaminophen [Hydrocodon-Acetaminophn 10-325] 1 tab PO Q4H PRN 03/21/19 Levetiracetam [Keppra] 1 tab PO DAILY 03/21/19 Levothyroxine [Synthroid*] 100 mcg PO DAILY 03/21/19 Lisinopril [Prinivil*] 2 tab PO DAILY 03/21/19 Magnesium Oxide 1 tab PO DAILY 03/21/19 Melatonin 2 tab PO BEDTIME 03/21/19 Metoclopramide HCl 1 tab PO BID PRN 03/21/19 Metoprolol Tartrate 1 tab PO BID 03/21/19 Multivitamin [Multiple Vitamins] 2 tab PO DAILY 03/21/19 Mupirocin Oint [Bactroban 2% Ointment*] 1 neetu TOP DAILY 03/21/19 Pantoprazole [Protonix Tab*] 1 tab PO BID 03/21/19 Pregabalin 1 cap PO TID 03/21/19 Sertraline [Zoloft*] 2 tab PO BEDTIME 03/21/19 Sodium Chloride 3.5% Neb 1 vial IH BID 03/21/19 Sucralfate [Carafate*] 1 gm PO ACHS 03/21/19 Sumatriptan Succinate [Imitrex] 1 tab PO DAILY PRN 03/21/19 Tazarotene 1 neetu TOP BEDTIME 03/21/19 Trazodone [Desyrel*] 100 mg PO BEDTIME 03/21/19 Triamcinolone 0.1% Crm [Kenalog 0.1% Cream*] 1 neetu TOP BID 03/21/19 Triamcinolone 0.1% Oint [Kenalog 0.1% Ointment*] 1 neetu TOP BID 03/21/19 fentaNYL [Fentanyl] 1 patch TD Q72H 03/21/19 - Past Medical/Surgical History Has patient received pneumonia vaccine in the past: Yes Diabetic: No -: History of MAC -: HTN -: Mitral valve prolapse -: Chronic pain -: Depression with anxiety -: Rheumatoid arthritis -: History of medication overdose -: History of gastric bypass -: GERD -: Hypothyroidism -: COPD, lupus, fibromyalgia -: serotonin syndrome -: L hip replacement -: Gastric Bypass -: -: Cholecystectomy Psychosocial/ Personal History: The patient currently lives with one of her daughters. She is a . She has 4 children. - Family History Father Medical History: Lung disease Mother Medical History: Heart disease - Social History Smoking Status: Never smoker Alcohol use: No CD- Drugs: No Caffeine use: No Place of Residence: Home Review of Systems 10-point ROS is otherwise unremarkable Physical Examination - Vital Signs Temperature: 97.7 F Blood Pressure: 160/77 Pulse: 77 Respirations: 18 Pulse Ox (%): 92 - Physical Exam General: Alert, In no apparent distress, Oriented x3 HEENT: Atraumatic, Normocephalic Neck: Supple, 2+ carotid pulse no bruit, JVD not distended Respiratory: Clear to auscultation bilaterally, Normal air movement Cardiovascular: Regular rate/rhythm, Normal S1 S2, Systolic murmur Gastrointestinal: Normal bowel sounds, Soft and benign, Non-distended Musculoskeletal: No clubbing, No swelling Neurological: Normal gait, Normal strength at 5/5 x4 extr, Normal tone, Sensation intact, Cranial nerves 3-12 intact - Studies Laboratory Data (last 24 hrs) 03/20/19 18:45: PT 12.5, INR 1.06, APTT 33.9 03/20/19 18:45: WBC 5.9, Hgb 14.1, Hct 41.8, Plt Count 176 03/20/19 18:45: Sodium 141, Potassium 4.3, BUN 16, Creatinine 0.96, Glucose 90, Total Bilirubin 0.3, AST 20, ALT 19, Alkaline Phosphatase 125 H, Lipase 47 L Microbiology Data (last 24 hrs): 03/20/19 20:52 Blood - Blood Anaerobic Blood Culture - Final Assessment & Plan - Problems (Diagnosis) (1) UTI (urinary tract infection) Current Visit: Yes Status: Acute (2) Acute encephalopathy Onset Date: 08/16/17 Current Visit: No Status: Acute (3) COPD (chronic obstructive pulmonary disease) Onset Date: 08/16/17 Current Visit: No Status: Acute Qualifiers: (4) Dehydration Onset Date: 11/16/17 Current Visit: No Status: Acute (5) Hypertension Onset Date: 11/16/17 Current Visit: No Status: Chronic Qualifiers: (6) Hypothyroidism Onset Date: 11/16/17 Current Visit: No Status: Chronic Qualifiers: (7) Rheumatoid arthritis Onset Date: 11/16/17 Current Visit: No Status: Chronic Qualifiers: - Plan Plan: 1. Gentle hydration 2. IV antibiotics 3. IV steroids for autoimmune diseases 4. Resume home medications 5. Continue with nebs as needed 6. GI DVT prophylaxis Discharge Plan: Home Plan to discharge in: Greater than 2 days - Advance Directives Does patient have a Living Will: No Does patient have a Durable POA for Healthcare: Yes - Code Status/Comfort Care Code Status Assessed: Yes Code Status: Full Code Time Spent Managing PTS Care (In Minutes): 45
[2019-03-21] MEDS ORDERED: METOCLOPRAMIDE 5 MG TAB PO PRN (10:42)
[2019-03-21] MEDS ORDERED: ESZOPICLONE 1 MG TAB PO PRN (10:42)
[2019-03-21] MEDS ORDERED: DICLOFENAC EPOLAMINE TOP PRN (10:42)
[2019-03-21] MEDS ORDERED: SUMATRIPTAN SUCCI 50 MG TAB PO PRN (10:42)
[2019-03-21] MEDS ORDERED: FENTANYL 100 MCG/PATCH TD SCH (11:00)
[2019-03-21] MEDS ORDERED: CYANOCOBALAMIN 1000MCG/ML INJ IM SCH (11:00)
[2019-03-21] MEDS ORDERED: FENTANYL 25 MCG/PATCH TD SCH (11:00)
[2019-03-21] MEDS: SUCRALFATE 1 GM TABLET PO SCH ×3 (11:35→20:15)
[2019-03-21] MEDS: BACLOFEN 10 MG TAB PO SCH ×2 (14:19→20:14)
[2019-03-21] MEDS: PREGABALIN 150 MG CAP PO SCH ×2 (14:19→23:47)
--- NOTE | 2019-03-21 15:27 | P.PN ---
Subjective Date of Service: 03/21/19 Chief Complaint: ALTERED MENTAL STATUS Subjective: Improving Patient seen and examined at bedside. Daughter at bedside. Chart reviewed and case discussed with nursing staff. Patient's mentation improving. No acute events noted overnight. She continues remain hemodynamically stable. Review of Systems 10-point ROS is otherwise unremarkable Physical Examination - Vital Signs Temperature: 97.8 F Blood Pressure: 153/76 Pulse: 89 Respirations: 18 Pulse Ox (%): 97 - Physical Exam General: Alert, In no apparent distress HEENT: Atraumatic, PERRLA, EOMI Neck: Supple, JVD not distended Respiratory: Clear to auscultation bilaterally, Normal air movement Cardiovascular: Regular rate/rhythm, Normal S1 S2 Gastrointestinal: Normal bowel sounds, No tenderness Musculoskeletal: No tenderness Integumentary: No rashes Neurological: Normal speech, Normal tone, Normal affect Lymphatics: No axilla or inguinal lymphadenopathy - Studies Laboratory Data (last 24 hrs) 03/21/19 03:54: Sodium 144, Potassium 3.7, BUN 15, Creatinine 0.81, Glucose 82, Total Bilirubin 0.3, AST 17, ALT 16, Alkaline Phosphatase 105 03/21/19 03:54: WBC 4.7 D, Hgb 12.5, Hct 37.0, Plt Count 156 03/20/19 18:45: PT 12.5, INR 1.06, APTT 33.9 03/20/19 18:45: WBC 5.9, Hgb 14.1, Hct 41.8, Plt Count 176 03/20/19 18:45: Sodium 141, Potassium 4.3, BUN 16, Creatinine 0.96, Glucose 90, Total Bilirubin 0.3, AST 20, ALT 19, Alkaline Phosphatase 125 H, Lipase 47 L Microbiology Data (last 24 hrs): 03/20/19 20:52 Blood - Blood Anaerobic Blood Culture - Final Assessment And Plan - Current Problems (Diagnosis) (1) UTI (urinary tract infection) Current Visit: Yes Status: Acute (2) Acute encephalopathy Onset Date: 08/16/17 Current Visit: No Status: Acute (3) COPD (chronic obstructive pulmonary disease) Onset Date: 08/16/17 Current Visit: No Status: Acute Qualifiers: (4) Chronic pain disorder Onset Date: 11/16/17 Current Visit: No Status: Chronic (5) Chronic renal disease Current Visit: No Status: Chronic Qualifiers: Chronic kidney disease stage: stage 1 Qualified Code(s): N18.1 - Chronic kidney disease, stage 1 (6) GERD (gastroesophageal reflux disease) Onset Date: 11/16/17 Current Visit: No Status: Chronic Qualifiers: Esophagitis presence: esophagitis presence not specified Qualified Code(s) : K21.9 - Gastro-esophageal reflux disease without esophagitis (7) Hypothyroidism Onset Date: 11/16/17 Current Visit: No Status: Chronic Qualifiers: (8) Rheumatoid arthritis Onset Date: 11/16/17 Current Visit: No Status: Chronic Qualifiers: - Plan Plan: 1. Continue Gentle hydration 2. IV antibiotics. Pending cultures 3. IV steroids for autoimmune diseases 4. Resume home medications 5. Continue with nebs as needed 6. GI DVT prophylaxis
--- NOTE | 2019-03-21 15:58 | EKG ---
Test Date: 2019-03-20 Test Time: 19:46:24 Classroom Paraprofessional: EDISON MEASUREMENT RESULTS: Intervals: Rate: 90 LA: 132 QRSD: 72 QT: 378 QTc: 462 Merkel: P: 23 LA: 132 QRS: -11 T: -17 INTERPRETIVE STATEMENTS: Normal sinus rhythm Nonspecific ST abnormality Abnormal ECG Compared to ECG 05/12/2018 01:32:44 ST (T wave) deviation now present Sinus tachycardia no longer present T-wave abnormality no longer present Electronically Signed On 03-21-19 15:54:39 CDT by Kojo Valente
[2019-03-21] MEDS: METOPROLOL TAR 25 MG TAB PO SCH (20:10)
[2019-03-21] MEDS: PANTOPRAZOLE 40MG TABLET PO SCH (20:16)
[2019-03-21] MEDS: APREMILAST PO SCH ×2 (20:17)
[2019-03-21] MEDS: HOME MED 1 EA UNK (Diclofenac Sodium [Voltaren] 1 APP) TOP SCH (20:17)
[2019-03-21] MEDS: SODIUM CHLORIDE IH SCH (20:18)
[2019-03-21] MEDS: TRIAMCINOLONE 0.1% CREAM 15GM TOP SCH (20:18)
[2019-03-21] MEDS ORDERED: SERTRALINE HCL 100 MG TAB PO SCH (21:00)
[2019-03-21] MEDS ORDERED: TRAZODONE 50 MG TABLET PO SCH (21:00)
[2019-03-21] MEDS ORDERED: TRIAMCINOLONE 0.1% OINT 15 GM TOP SCH (21:00)
[2019-03-21] MEDS ORDERED: MELATONIN 5 MG TABLET PO SCH (21:00)
[2019-03-21] MEDS ORDERED: TAZAROTENE TOP SCH (21:00)
[2019-03-21] MEDS: HYDROCODONE/APAP 10/325 TAB PO PRN (21:04)
[2019-03-22] MEDS: LEVOTHYROXINE SOD 0.1 MG TAB PO SCH (06:51)
[2019-03-22 08:27] VITALS: BP 148/69; TEMP 97.9
[2019-03-22] MEDS: HYDROCODONE/APAP 10/325 TAB PO PRN (08:41)
[2019-03-22] MEDS: SUCRALFATE 1 GM TABLET PO SCH (08:42)
[2019-03-22] MEDS: DULOXETINE 30 MG CAP PO SCH (08:43)
[2019-03-22] MEDS: BUSPIRONE HCL 5 MG TABLET PO SCH (08:47)
[2019-03-22] MEDS: METOPROLOL TAR 25 MG TAB PO SCH (08:47)
[2019-03-22] MEDS: BACLOFEN 10 MG TAB PO SCH (08:48)
[2019-03-22] MEDS: PREGABALIN 150 MG CAP PO SCH (08:48)
[2019-03-22] MEDS: PANTOPRAZOLE 40MG TABLET PO SCH (08:48)
[2019-03-22] MEDS: APREMILAST PO SCH ×2 (08:50→08:51)
[2019-03-22] MEDS: TRIAMCINOLONE 0.1% CREAM 15GM TOP SCH (08:50)
[2019-03-22] MEDS: HOME MED 1 EA UNK (Diclofenac Sodium [Voltaren] 1 APP) TOP SCH (08:52)
[2019-03-22] MEDS: SODIUM CHLORIDE IH SCH (08:53)
[2019-03-22] MEDS: CEFTRIAXONE/SWI 1gm 1 GM/10 ML SYR IV SCH (08:53)
[2019-03-22] MEDS ORDERED: LISINOPRIL 20 MG TAB PO SCH (09:00)
[2019-03-22] MEDS ORDERED: MULTIVITAMIN TAB PO SCH (09:00)
[2019-03-22] MEDS ORDERED: AMLODIPINE 10 MG TAB PO SCH ×3 (09:00→21:00)
[2019-03-22] MEDS ORDERED: CALCIPOTRIENE SCH (09:00)
[2019-03-22] MEDS ORDERED: CELECOXIB 100 MG CAPSULE PO SCH (09:00)
[2019-03-22] MEDS ORDERED: levETIRAcetam 500 MG TAB PO SCH (09:00)
[2019-03-22] MEDS ORDERED: LEVOTHYROXINE SOD 0.1 MG TAB PO SCH (09:00)
[2019-03-22] MEDS ORDERED: BETAMETHASONE SCH (09:00)
[2019-03-22] MEDS ORDERED: MUPIROCIN 2% OINT 22GM TUBE TOP SCH (09:00)
[2019-03-22] MEDS ORDERED: MAGNESIUM OXIDE 400 MG TAB PO SCH (09:00)
--- NOTE | 2019-03-22 18:33 | P.DS ---
Admission Date: 03/21/19 Discharge Date: 03/22/19 Disposition: ROUTINE DISCHARGE Discharge Condition: GOOD Reason for Admission: ALTERED MENTAL STATUS - Problems (1) UTI (urinary tract infection) Status: Acute (2) Acute encephalopathy Onset Date: 08/16/17 Status: Acute (3) COPD (chronic obstructive pulmonary disease) Onset Date: 08/16/17 Status: Acute Qualifiers: (4) Chronic pain disorder Onset Date: 11/16/17 Status: Chronic (5) Chronic renal disease Status: Chronic Qualifiers: Chronic kidney disease stage: stage 1 Qualified Code(s): N18.1 - Chronic kidney disease, stage 1 (6) GERD (gastroesophageal reflux disease) Onset Date: 11/16/17 Status: Chronic Qualifiers: Esophagitis presence: esophagitis presence not specified Qualified Code(s) : K21.9 - Gastro-esophageal reflux disease without esophagitis (7) Hypothyroidism Onset Date: 11/16/17 Status: Chronic Qualifiers: (8) Rheumatoid arthritis Onset Date: 11/16/17 Status: Chronic Qualifiers: Brief History of Present Illness: Patient is a 63-year-old female who was admitted to the hospital with altered mental status. Patient states she has a history of rheumatoid arthritis and psoriatic arthritis. Her hands are severely deviated. She has significant arthritis in her joints. She has been having dysuria and came into the ER for evaluation because she was not feeling like herself. In the ER, she was found to have a urinary tract infection. She was started on IV antibiotics. IV hydration as well. Patient will be admitted to the hospital for further treatment. Hospital Course: Patient was admitted for altered mental status. This could have been secondary to the UTI but more likely patient also has a component of side effects of medications that she is currently on. There seems to be some confusion as to what medications she was taking, the ones that she is supposed to be taking in the ones that were prescribed. It seems that after her , patient was not able to take care for medications there for her daughter's or taking care of it and she had been doing really well until recently when she went to be more independent and she started managing her own medications. This may have caused some changes in the medication and leading to her altered mentation. She was admitted for the altered mental status, her urine cultures remained negative. She was given IV antibiotics but the antibiotics were discontinued upon discharge as there is no evidence of any infection. Prior to discharge, her mentation had returned back to her baseline. She ambulated really well with physical therapy, she is tolerating an oral diet. She was doing well hemodynamically as well. Her diagnoses and discharge planning was discussed with her. It was recommended that she take a family member with her to her psychiatry appointment therefore her medications can be sorted out. She was also recommended to take a family member with her primary care physician's office therefore her medications could be managed properly to help improve her safety. Patient verbalized understanding at this time. All of her questions and daughter's questions were answered and she then she was discharged home in a safe and stable manner. Vital Signs/Physical Exam: Temp Pulse Resp BP Pulse Ox 97.9 F 62 18 148/69 H 97 03/22/19 08:00 03/22/19 08:47 03/22/19 08:41 03/22/19 08:47 03/22/19 08:41 General: Alert, In no apparent distress HEENT: Atraumatic, PERRLA, EOMI Neck: Supple, JVD not distended Respiratory: Clear to auscultation bilaterally, Normal air movement Cardiovascular: Regular rate/rhythm, Normal S1 S2 Gastrointestinal: Normal bowel sounds, No tenderness Musculoskeletal: No tenderness Integumentary: No rashes Neurological: Normal speech, Normal tone, Normal affect Lymphatics: No axilla or inguinal lymphadenopathy Laboratory Data at Discharge: WBC 4.7 K/uL (4.3-10.9) D 03/21/19 03:54 Hgb 12.5 g/dL (12.0-15.0) 03/21/19 03:54 Hct 37.0 % (36.0-45.0) 03/21/19 03:54 Plt Count 156 K/uL (152-406) 03/21/19 03:54 PT 12.5 SECONDS (9.5-12.5) 03/20/19 18:45 INR 1.06 03/20/19 18:45 APTT 33.9 SECONDS (24.3-36.9) 03/20/19 18:45 Sodium 144 mmol/L (136-145) 03/21/19 03:54 Potassium 3.7 mmol/L (3.5-5.1) 03/21/19 03:54 BUN 15 mg/dL (7-18) 03/21/19 03:54 Creatinine 0.81 mg/dL (0.55-1.3) 03/21/19 03:54 Glucose 82 mg/dL (74-106) 03/21/19 03:54 Total Bilirubin 0.3 mg/dL (0.2-1.0) 03/21/19 03:54 AST 17 U/L (15-37) 03/21/19 03:54 ALT 16 U/L (12-78) 03/21/19 03:54 Alkaline Phosphatase 105 U/L (45-117) 03/21/19 03:54 Lipase 47 U/L (73-393) L 03/20/19 18:45 Home Medications: Amlodipine Besylate 10 mg PO DAILY 11/16/17 Duloxetine HCl 30 mg PO DAILY 11/16/17 Albuterol Inhaler [Ventolin Inhaler*] 2 puff IH Q6H PRN 03/21/19 Albuterol Neb [Proventil 0.083% Neb Soln] 3 ml IH Q6H PRN 03/21/19 Apremilast [Otezla] 1 tab PO BID 03/21/19 Apremilast [Otezla] 1 tab PO BID 03/21/19 Baclofen 1 tab PO TID 03/21/19 Buspirone HCl 10 mg PO BID 03/21/19 Calcipotriene/Betamethasone [Enstilar 0.005%-0.064% Foam] 1 neetu .ROUTE DAILY 05/29 Celecoxib 1 cap PO DAILY 03/21/19 Cyanocobalamin [Vitamin B-12*] 1 ml IM Q7D 03/21/19 Diclofenac Epolamine 1 neetu TOP DAILY PRN 03/21/19 Diclofenac Sodium [Voltaren] 1 neetu TOP BID 03/21/19 Ergocalciferol (Vitamin D2) [Vitamin D2] 1 cap PO SEECOM 03/21/19 Eszopiclone 1 tab PO BEDTIME PRN 03/21/19 Fentanyl Patch [Duragesic Patch*] 1 patch TD Q72H 03/21/19 Fluticasone Propion/Salmeterol [Fluticasone-Salmeterol 500-50] 1 puff IH Q12H Fluticasone [Flonase 50MCG Nasal [place]*] 1 spray IH DAILY 03/21/19 Fluticasone/Salmeterol [Advair Hfa 230-21 Mcg Inhaler] 2 puff IH BID 03/21/19 Hydrocodone Bit/Acetaminophen [Hydrocodon-Acetaminophn 10-325] 1 tab PO Q4H PRN 03/21/19 Levetiracetam [Keppra] 1 tab PO DAILY 03/21/19 Levothyroxine [Synthroid*] 100 mcg PO DAILY 03/21/19 Lisinopril [Prinivil*] 2 tab PO DAILY 03/21/19 Magnesium Oxide 1 tab PO DAILY 03/21/19 Melatonin 2 tab PO BEDTIME 03/21/19 Metoclopramide HCl 1 tab PO BID PRN 03/21/19 Metoprolol Tartrate 1 tab PO BID 03/21/19 Multivitamin [Multiple Vitamins] 2 tab PO DAILY 03/21/19 Mupirocin Oint [Bactroban 2% Ointment*] 1 neetu TOP DAILY 03/21/19 Pantoprazole [Protonix Tab*] 1 tab PO BID 03/21/19 Pregabalin 1 cap PO TID 03/21/19 Sertraline [Zoloft*] 2 tab PO BEDTIME 03/21/19 Sodium Chloride 3.5% Neb 1 vial IH BID 03/21/19 Sucralfate [Carafate*] 1 gm PO ACHS 03/21/19 Sumatriptan Succinate [Imitrex] 1 tab PO DAILY PRN 03/21/19 Tazarotene 1 neetu TOP BEDTIME 03/21/19 Trazodone [Desyrel*] 100 mg PO BEDTIME 03/21/19 Triamcinolone 0.1% Crm [Kenalog 0.1% Cream*] 1 neetu TOP BID 03/21/19 Triamcinolone 0.1% Oint [Kenalog 0.1% Ointment*] 1 neetu TOP BID 03/21/19 fentaNYL [Fentanyl] 1 patch TD Q72H 03/21/19 Patient Discharge Instructions: Please follow up with your primary care physician in 2-3 days. Please follow up [facility] as scheduled. Return to the ER for worsening symptoms. Diet: Regular Activity: Ad delmi Time spent managing pt's care (in minutes): 55
== END 2019-03-22 10:53 | disposition home or self-care (01) | DRG 93 ==
LOC: ER 18:00 → ERHOLD 21:26 → 4TH 22:55 → OBSVTOIN 03-21 15:04
PROVIDERS: ADMIT Hospitalist; ATTEND Hospitalist
DX: G92 Toxic encephalopathy (principal); T50.905A Adverse effect of unspecified drugs, medicaments and biological substances, initial encounter; Y92.009 Unspecified place in unspecified non-institutional (private) residence as the place of occurrence of the external cause; J44.9 Chronic obstructive pulmonary disease, unspecified; G89.29 Other chronic pain; I12.9 Hypertensive chronic kidney disease with stage 1 through stage 4 chronic kidney disease, or unspecified chronic kidney disease; N18.1 Chronic kidney disease, stage 1; K21.9 Gastro-esophageal reflux disease without esophagitis; E03.9 Hypothyroidism, unspecified; M06.9 Rheumatoid arthritis, unspecified; L40.50 Arthropathic psoriasis, unspecified; Z88.2 Allergy status to sulfonamides; Z88.7 Allergy status to serum and vaccine; Z98.84 Bariatric surgery status; Z96.642 Presence of left artificial hip joint
CPT/HCPCS: 36415; 70450; 71045; 80048; 80053; 80076; 81003; 81015; 82550; 82553; 82962; 83605; 83690; 84145; 84484; 85025; 85610; 85730; 87040; 87077; 87086; 87088; 87186; 93005; 96372; 96374; 96375; 97112; 97116; 97161; 99285; G0378; J0696; J7030

== ENCOUNTER 2021-02-24 12:01 | Emergency (ER) | payer OTHER ==
--- OUTSIDE RECORDS SUMMARY | 2021-02-24 12:04 | XMS REPORT | Continuity of Care Document ---
:1955 Author Organization [facility] t Address [address] [place] [address] Care Team Providers Name Role Phone Dennys Angulo MD Attending Clinician Rich CRAWFORD Attending Clinician Payers Payer Name Policy Type Policy Number Effective Date Expiration Date S ource Problems This patient has no known problems. Allergies, Adverse Reactions, Alerts Allergy Allergy Status Severity Reaction(s) Onset Inactive Treating Comm ents Source Name Type Date Date Clinician Sulfa DA Active [place] [facility] (Sulfona - Clear mide 00:00: Menard Antibiot 00 [facility] Influenz DA Active [facility] a Virus - Clear Vaccines 00:00: Menard 00 [facility] baclofen DA Active [facility] 02-05 Clear 00:00: Menard 00 [facility] levoflox DA Active [facility] acin 02-05 Clear 00:00: Menard 00 [facility] Sulfa DA Active [facility] (Sulfona 01-23 Clear mide 00:00: Menard Antibiot 00 [facility] No Known DA Active [facility] Drug 01-23 Clear Intolera 00:00: Menard nces 00 [facility] No Known DA Active [facility] Contrast 01-23 Clear Allergie 00:00: Menard s 00 [facility] No Known DA Active [facility] Food 01-23 Clear Allergie 00:00: Menard s [facility] No Known DA Active [facility] Other 01-23 Clear Allergie 00:00: Menard s 00 [facility] SULFA DA Active [facility] DRUGS 01-23 Clear 00:00: Menard 00 [facility] Medications This patient has no known medications. Procedures This patient has no known procedures. Encounters Start End Encounter Admission Attending Care Care Encounter Source Date/Time Date/Time Type Type Clinicians Facility Department ID 2021-02-20 2021-02-20 [facility] [id number] 00:00:00 00:00:00 Secure g Wally A PRIMARY [id number] CARE [id number] PAVILLION [id number] 2021-02-17 2021-02-17 Refill Rich [facility] [id number] 00:00:00 00:00:00 Ciro MULTISPEC [id number] IALTY [id number] CENTER [id number] [facility] 2021-02-16 2021-02-16 Office Kev [facility] [id number] 10:03:54 10:47:58 Visit Wally A PRIMARY [id number] CARE [id number] PAVILLION [id number] 2019-08-06 2019-08-06 Outpatient [facility]B [id number] MH 10:08:00 10:08:00 [facility] Results Test Description Test Time Test Comments Results Result Comments Source SURGICAL SPECIMENS 2019-02-12 07:36:00 RUN DATE: 02/12/19 [facility] *LIVE* PAGE 1 RUN TIME: 735 Specimen Inquiry RUN USER: INTERFACE PATIENT: QUINN WILKERSON LOC: SRINATH U #: [id number] AGE/SX: 63/F ROOM: RE02/08/19[facility] DR: Edward Felder : 53 BED: DIS: [place]US[place] [facility] [place]: SPEC #: [id number] RECD: 02/08/19 STATUS: MILAGRO REBrittany #: [id number] QUANG: 02/08/19 [facility] DR: Edward Felder MD ENTERED: 02/11/19 SP TYPE: SURG SPEC OTHR DR: Wally Angulo MD ORDERED: GM LEVEL 4 CODES: [id number] - STOMACH, NOS COPIES TO: Wally Angulo MD [address] [facility] [address] [place], [place] [address] Edward Felder MD [facility] [facility] [address] [place] [address] PROCEDURES: GM LEVEL 4 (Incomplete) TISSUES: 1. STOMACH, NOS [...] CONTINUED ON NEXT PAGE RUN DATE: 02/12/19 [facility] *LIVE* PAGE 2 RUN TIME: 735 Specimen Inquiry RUN USER: INTERFACE SPEC #: [id number] PATIENT: QUINN WILKERSON #[id number] (Continued)--------- --- POST-OP DIAGNOSIS GERD, normal colon PRE-OP DIAGNOSIS Family history of colon cancer, GERD Signed SIGNATURE ON FILE Cole Connell MD 02/12/19 0736 END OF REPORT BASIC METABOLIC PANEL 2019-02-08 07:29:00 Test Item Value Reference Range Interpretation Comme nts SODIUM (test code = NA) 134 mEq/L 134-147 N POTASSIUM (test code = K) 3.2 mEq/L 3.4-5.0 L CHLORIDE (test code = CL) 101 mEq/L 100-108 N CARBON DIOXIDE (test code = CO2) 26 mEq/L 21-33 N ANION GAP (test code = GAP) 10 0-20 N GLUCOSE (test code = GLU) 84 mg/dL 70-110 N BLOOD UREA NITROGEN (test code = 9 mg/dL 7-18 N BUN) GLOMERULAR FILTRATION RATE (test 72.2 80-90 L Units of measure = ml/min/1.73 code = GFR) m2 CREATININE (test code = CREAT) 0.8 mg/dL 0.6-1.3 N CALCIUM (test code = CA) 8.5 mg/dL 8.0-10.5 N - XR CHEST 1 [id number] 06:16:00 FAX: Yadiel Westfall JR, MD [phone] [place]: St: REG FAX: Wally Valles [phone] FAX: Edward Vargas [phone] Name: QUINN WILKERSON [facility] Brianne : 1955 Age/S: 63/F [address] [place] [address] Unit #: [id number] Loc: [place] [address] Phys: Yadiel Mendez JR, MD Acct: [id number] Dis Date: Status: [place] [facility] [place]ONE #: [phone] Exam Date: 02/08/2019 0612 FAX #: [phone] Reason: PREOP PROTOCOL EXAMS: CPT CODE: [id number] XR CHEST 1 V 16243 EXAM: CR, XR chest one view: 02/08/2019, 0603 [...] atelectasis in the right mid and lower ana ng . SL: [JSYED-H] at 0616 Reported and signed by: Reyes Lee M.D. CC: Yadiel Mendez JR, MD; Wally Angulo MD; Edward Felder MD Technologist: RT Jose(Caitie) Trnndrd Date/Time/By: 02/08/2019 (0616) : By: [email or web address] Orig Print D/T: S: 02/08/2019 (0619) PAGE 1 Signed ReportBASIC METABOLIC [id number] 14:20:00 Test Item Value Reference Range Interpretation Comments SODIUM (test code = NA) 141 mEq/L 134-147 N POTASSIUM (test code = 4.2 mEq/L 3.4-5.0 N K) CHLORIDE (test code = 108 mEq/L 100-108 N CL) CARBON DIOXIDE (test 28 mEq/L 21-33 N code = CO2) ANION GAP (test code = 9 0-20 N GAP) GLUCOSE (test code = 93 mg/dL 70-110 N GLU) BLOOD UREA NITROGEN 16 mg/dL 7-18 N (test code = BUN) GLOMERULAR FILTRATION 50.0 80-90 L Units of measure = RATE (test code = GFR) ml/mi n/1.73 m2 CREATININE (test code = 1.1 mg/dL 0.6-1.3 N CREAT) CALCIUM (test code = 8.9 mg/dL 8.0-10.5 N CA) CBC W/AUTO [id number] 14:18:00 Test Item Value Reference Range Interpretation Comments WHITE BLOOD CELL (test code = 7.02 x10 3/uL 4.5-11.0 N WBC) RED BLOOD CELL (test code = 4.34 x10 6/uL 3.54-5.02 N RBC) HEMOGLOBIN (test code = HGB) 11.2 g/dL 11.0-15.0 N HEMATOCRIT (test code = HCT) 36.1 % 33.0-45.0 N MEAN CELL VOLUME (test code = 83.2 fL 81.0-99.0 N MCV) MEAN CELL HGB (test code = MCH) 25.8 pg 27.0-33.0 L MEAN CELL HGB CONCETRATION 31.0 g/dL 33.0-37.0 L (test code = MCHC) RED CELL DISTRIBUTION WIDTH CV 17.2 % 11.5-14.5 H (test code = RDW) RED CELL DISTRIBUTION WIDTH SD 52.6 fL 37.0-54.0 N (test code = RDW-SD) PLATELET COUNT (test code = 202 x10 3/uL 150-400 N PLT) MEAN PLATELET VOLUME (test code 10.5 fL 7.0-9.0 H = MPV) NEUTROPHIL % (test code = NT%) 63.4 % 56.0-77.0 N IMMATURE GRANULOCYTE % (test 0.1 % 0.0-2.0 N code = IG%) LYMPHOCYTE % (test code = LY%) 24.4 % 14.0-32.0 N MONOCYTE % (test code = MO%) 8.8 % 4.8-9.0 N EOSINOPHIL % (test code = EO%) 2.7 % 0.3-3.7 N BASOPHIL % (test code = BA%) 0.6 % 0.0-2.0 N NUCLEATED RBC % (test code = 0.0 % 0-0 N NRBC%) NEUTROPHIL # (test code = NT#) 4.45 x10 3/uL 2.0-7.6 N IMMATURE GRANULOCYTE # (test 0.01 x10 3/uL 0.00-0.03 N code = IG#) LYMPHOCYTE # (test code = LY#) 1.71 x10 3/uL 1.0-3.8 N MONOCYTE # (test code = MO#) 0.62 x10 3/uL 0.1-0.8 N EOSINOPHIL # (test code = EO#) 0.19 x10 3/uL 0.0-0.2 N BASOPHIL # (test code = BA#) 0.04 x10 3/uL 0.0-0.2 N NUCLEATED RBC # (test code = 0.00 x10 3/uL 0.0-0.1 N NRBC#) MANUAL DIFF REQUIRED (test code NO = MDIFF)
[2021-02-24 13:26] LABS: Urine Bacteria <20 /HPF (<20); Urine RBC <5 /HPF (NONE SEEN)
[2021-02-24] MEDS ORDERED: Ringers Lactate 1,000 ML IV ONE (13:41)
[2021-02-24 13:43] LABS: Protime INR 0.97
--- NOTE | 2021-02-24 13:43 | RAD REPORT ---
EXAM DESCRIPTION: RAD - Chest Single View - 02/24/2021 1:39 pm CLINICAL HISTORY: DYSPNEA COMPARISON: Chest Single View dated 03/20/2019; Chest Single View dated 11/15/2017; Chest Single View d ated 08/17/2017; Chest Single View dated 08/15/2017 FINDINGS: No evidence of edema or pneumonia. The heart size is within normal limits.No acute osseous abnormality. No significant pleural effusions or pneumothorax. IMPRESSION: No acute cardiopulmonary disease.
[2021-02-24 13:45] LABS: ALT/SGPT 20 U/L (12-78); AST/SGOT 21 U/L (15-37); Absolute Lymphocytes (CBC) 1.1 K/uL (0.7-4.9); Albumin 3.7 g/dL (3.4-5.0); Alkaline Phosphatase 75 U/L (45-117); BUN Blood Urea Nitrogen 22 mg/dL (7-18); Basophils % 1.1 % (0-1.3); Bicarbonate 27 mmol/L (21-32); Bilirubin Direct 0.2 mg/dL (0-0.2); Bilirubin Total 0.5 mg/dL (0.2-1.0); Glucose Level 83 mg/dL (74-106); Hematocrit 33.4 % (36.0-45.0); Lymphocytes % 22.4 % (15.3-44.8); MPV 9.1 fL (7.6-11.3); Magnesium 2.2 mg/dL (1.8-2.4); NT PRO-BNP 283 pg/mL (<125); Potassium 4.3 mmol/L (3.5-5.1); RBC Red Blood Cell Count 3.56 M/uL (3.86-4.86); Sodium Level 138 mmol/L (136-145); Troponin (Emerg Dept Use Only) < 0.02 ng/mL (0.0-0.045)
[2021-02-24] MEDS ORDERED: NA CHLORIDE 0.9% 1,000 ML ONE (15:04)
--- NOTE | 2021-02-24 15:53 | EDPHYS ---
Physician Documentation [facility] Name: Heidy Robison Age: 65 yrs Sex: Female : 1955 Arrival Date: 02/24/2021 Time: 12:05 Bed 26 Private MD: ED Physician Oneida Myrick HPI: 02/24 14:32 This 65 yrs old Female presents to ER via Wheelchair with complaints of Low jr8 BP,Low O2. 14:32 Associated signs and symptoms: Pertinent positives: Lightheaded. The patient has not jr8 experienced similar symptoms in the past. The patient has been recently seen by a physician:. This is a 65-year-old female who presented to the emergency room with low blood pressure after being seen at her family physician office. Stated that she has been dealing with low blood pressure for the past month. Has been having reduction in her BP meds. Today when they checked her blood pressure it was in the 60s systolic. Was brought to the emergency room at that time. Patient stated that she feels lightheaded especially when having bowel movements. Denies syncope at this time.. Historical: - Allergies: 12:30 Abilify; jl7 12:30 apremilast; jl7 12:30 FLU VACCINE; jl7 12:30 Seroquel; jl7 12:30 Sulfa (Sulfonamide Antibiotics); jl7 - PMHx: 12:30 Anxiety; COPD; CVA; Depression; Fibromyalgia; INFECTIOUS LUNG DISORDER; Lupus; MAC; RA; jl7 SEROTONIN SYNDROME; - Immunization history:: Client reports receiving the 2nd dose of the Covid vaccine. - Social history:: Smoking status: Patient denies any tobacco usage or history of. ROS: 14:32 Eyes: Negative for injury, pain, redness, and discharge, ENT: Negative for injury, jr8 pain, and discharge, Neck: Negative for injury, pain, and swelling, Cardiovascular: Negative for chest pain, palpitations, and edema, Respiratory: Negative for shortness of breath, cough, wheezing, and pleuritic chest pain, Abdomen/GI: Negative for abdominal pain, nausea, vomiting, diarrhea, and constipation, Back: Negative for injury and pain, MS/Extremity: Negative for injury and deformity, Skin: Negative for injury, rash, and discoloration. 14:32 Neuro: Positive for dizziness, near syncope. Exam: 14:32 Constitutional: This is a well developed, well nourished patient who is awake, alert, jr8 and in no acute distress. Cardiovascular: Regular rate and rhythm with a normal S1 and S2. No gallops, murmurs, or rubs. Normal PMI, no JVD. No pulse deficits. Respiratory: Lungs have equal breath sounds bilaterally, clear to auscultation and percussion. No rales, rhonchi or wheezes noted. No increased work of breathing, no retractions or nasal flaring. Abdomen/GI: Soft, non-tender, with normal bowel sounds. No distension or tympany. No guarding or rebound. No evidence of tenderness throughout. Back: No spinal tenderness. No costovertebral tenderness. Full range of motion. Skin: Warm, dry with normal turgor. Normal color with no rashes, no lesions, and no evidence of cellulitis. MS/ Extremity: Pulses equal, no cyanosis. Neurovascular intact. Full, normal range of motion. Neuro: Awake and alert, GCS 15, oriented to person, place, time, and situation. Cranial nerves II-XII grossly intact. Motor strength 5/5 in all extremities. Sensory grossly intact. Cerebellar exam normal. Normal gait. Vital Signs: 12:24 BP 88 / 53; Pulse 65; Resp 17; Temp 98; Pulse Ox 95% ; Weight 58.97 kg; Height 5 ft. 5 jl7 in. (165.10 cm); Pain 6/10; 12:48 BP 87 / 54; Pulse 65; Resp 19; Pulse Ox 90% ; ld1 13:00 BP 83 / 46 Supine; Pulse 62 LA; ld1 13:03 BP 90 / 43 Sitting; Pulse 61 LA; ld1 13:06 BP 81 / 46 Standing; Pulse 59 LA; ld1 14:02 BP 101 / 46; Pulse 58; Resp 18; Pulse Ox 93% on R/A; ld1 15:01 BP 108 / 59; Pulse 71; Resp 18; Pulse Ox 96% on R/A; ld1 16:30 BP 112 / 62; Pulse 73; Resp 18; Pulse Ox 98% on R/A; ld1 12:24 Body Mass Index 21.63 (58.97 kg, 165.10 cm) [facility] MDM: 12:34 Patient medically screened. jr8 15:02 Data reviewed: vital signs, nurses notes, lab test result(s), EKG. Data interpreted: 8 Pulse oximetry: on room air is 96 %. Interpretation: normal. Counseling: I had a detailed discussion with the patient and/or guardian regarding: the historical points, exam findings, and any diagnostic results supporting the discharge/admit diagnosis, lab results, the need for outpatient follow up, a family practitioner, to return to the emergency department if symptoms worsen or persist or if there are any questions or concerns that arise at home. Response to treatment: the patient's symptoms have markedly improved after treatment, patient is well hydrated. ED course: Patient feeling much better. Hemodynamically stable at this point with markedly improved blood pressure. No tilting at this time. Will send home to follow-up with primary care.. 02/24 12:35 Order name: Basic Metabolic Panel; Complete Time: 13:53 [facility] 02/24 12:35 Order name: CBC with Diff; Complete Time: 13:53 [facility] 02/24 12:35 Order name: LFT's; Complete Time: 13:53 [facility] 02/24 12:35 Order name: Magnesium; Complete Time: 13:53 [facility] 02/24 12:35 Order name: NT PRO-BNP; Complete Time: 13:53 [facility] 02/24 12:35 Order name: PT-INR; Complete Time: 13:53 [facility] 02/24 12:35 Order name: Troponin (emerg Dept Use Only); Complete Time: 13:53 [facility] 02/24 12:35 Order name: XRAY Chest (1 view); Complete Time: 13:53 [facility] 02/24 12:35 Order name: EKG; Complete Time: 12:36 02/24 12:35 Order name: Cardiac monitoring; Complete Time: 12:42 [facility] 02/24 12:35 Order name: EKG - Nurse/Tech; Complete Time: 13:30 [facility] 02/24 12:35 Order name: Urine Microscopic Only; Complete Time: 13:35 [facility] 02/24 12:35 Order name: IV Saline Lock; Complete Time: 13:30 [facility] 02/24 12:35 Order name: Labs collected and sent; Complete Time: 13:33 [facility] 02/24 12:35 Order name: O2 Per Protocol; Complete Time: 12:42 [facility] 02/24 12:35 Order name: O2 Sat Monitoring; Complete Time: 12:42 8 02/24 12:35 Order name: Urine Dipstick-Ancillary (obtain specimen); Complete Time: 13:32 8 02/24 12:57 Order name: Orthostatics; Complete Time: 13:32 ld1 Administered Medications: 13:20 Drug: Ringers - Lactated Ringers Solution 1000 ml Route: IV; Rate: bolus; Site: left ld1 forearm; 14:42 Drug: NS 0.9% 1000 ml Route: IV; Rate: 1000 ml; Site: left forearm; ld1 Disposition: 18:57 Co-signature as Attending Physician, Oneida Myrick I agree with the assessment and plan sp3 of care. Disposition Summary: 02/24/21 15:53 Discharge Ordered Location: Home [facility] Problem: new jr8 Symptoms: have improved jr8 Condition: Stable jr8 Diagnosis - Hypotension due to drugs jr8 Followup: jr8 - With: Private Physician - When: 2 - 3 days - Reason: Recheck today's complaints, Continuance of care, Re-evaluation by your physician Discharge Instructions: - Discharge Summary Sheet jr8 - Hypotension jr8 Forms: - Medication Reconciliation Form jr8 - Thank You Letter jr8 - Antibiotic Education jr8 - Prescription Opioid Use jr8 Signatures: Dispatcher [employer] Bridger Chacon PA PA jr8 Priyanka Muniz RN RN jl7 Ruthie Pack RN RN ld1 Ramez, Oneida sp3
--- NOTE | 2021-02-24 15:53 | ER ---
Nurse's Notes [facility] Name: Heidy Robison Age: 65 yrs Sex: Female : 1955 Arrival Date: 02/24/2021 Time: 12:05 Bed 26 Private MD: Diagnosis: Hypotension due to drugs Presentation: 02/24 12:24 Chief complaint: Patient states: PCP sent due to low BP, systolic 60's, and Low O2 at jl7 90%, denies SOB, denies cough, denies N/V/D, reports BP is normally 100 systolic. Coronavirus screen: Client denies travel out of the [place] in the last 14 days. At this time, the client does not indicate any symptoms associated with coronavirus-19. Ebola Screen: No symptoms or risks identified at this time. Initial Sepsis Screen: Does the patient meet any 2 criteria? Systolic BP < 90 mmHg. Mean Arterial Pressure (MAP) < 65. Yes Does the patient have a suspected source of infection? No. Patient's initial sepsis screen is negative. Risk Assessment: Do you want to hurt yourself or someone else? Patient reports no desire to harm self or others. Onset of symptoms was February 24, 2021. Care prior to arrival: None. 12:24 Method Of Arrival: Wheelchair jl7 12:24 Acuity: ADELE 2 jl7 Triage Assessment: 12:30 General: Appears in no apparent distress. uncomfortable, Behavior is calm, cooperative, jl7 appropriate for age. Pain: Complains of pain in chronic back pain. Historical: - Allergies: 12:30 Abilify; jl7 12:30 apremilast; jl7 12:30 FLU VACCINE; jl7 12:30 Seroquel; jl7 12:30 Sulfa (Sulfonamide Antibiotics); jl7 - PMHx: 12:30 Anxiety; COPD; CVA; Depression; Fibromyalgia; INFECTIOUS LUNG DISORDER; Lupus; MAC; RA; jl7 SEROTONIN SYNDROME; - Immunization history:: Client reports receiving the 2nd dose of the Covid vaccine. - Social history:: Smoking status: Patient denies any tobacco usage or history of. Screenin:48 Abuse screen: Denies threats or abuse. Denies injuries from another. Nutritional ld1 screening: No deficits noted. Tuberculosis screening: No symptoms or risk factors identified. Fall Risk None identified. Assessment: 12:31 Reassessment: Pt reports if she's going to be admitted then she is going to [place] [id number] because her records are there. 12:48 General: Appears in no apparent distress. comfortable, Behavior is calm, cooperative, ld1 appropriate for age. Pain: Denies pain. Neuro: Level of Consciousness is awake, alert, obeys commands, Oriented to person, place, time, situation, Appropriate for age. Cardiovascular: Capillary refill < 3 seconds Patient's skin is warm and dry. Rhythm is regular. Respiratory: Airway is patent Respiratory effort is even, unlabored, Respiratory pattern is regular, symmetrical. GI: Abdomen is flat, non-distended. : No signs and/or symptoms were reported regarding the genitourinary system. EENT: No signs and/or symptoms were reported regarding the EENT system. Derm: No signs and/or symptoms reported regarding the dermatologic system. Musculoskeletal: No signs and/or symptoms reported regarding the musculoskeletal system. 14:02 Reassessment: Patient appears in no apparent distress at this time. Patient and/or ld1 family updated on plan of care and expected duration. Pain level reassessed. Patient is alert, oriented x 3, equal unlabored respirations, skin warm/dry/pink. Patient denies pain at this time. 15:01 Reassessment: Patient appears in no apparent distress at this time. No changes from 1 previously documented assessment. Patient and/or family updated on plan of care and expected duration. Pain level reassessed. Patient is alert, oriented x 3, equal unlabored respirations, skin warm/dry/pink. Vital Signs: 12:24 BP 88 / 53; Pulse 65; Resp 17; Temp 98; Pulse Ox 95% ; Weight 58.97 kg; Height 5 ft. 5 7 in. (165.10 cm); Pain 6/10; 12:48 BP 87 / 54; Pulse 65; Resp 19; Pulse Ox 90% ; ld1 13:00 BP 83 / 46 Supine; Pulse 62 LA; ld1 13:03 BP 90 / 43 Sitting; Pulse 61 LA; ld1 13:06 BP 81 / 46 Standing; Pulse 59 LA; ld1 14:02 BP 101 / 46; Pulse 58; Resp 18; Pulse Ox 93% on R/A; ld1 15:01 BP 108 / 59; Pulse 71; Resp 18; Pulse Ox 96% on R/A; ld1 16:30 BP 112 / 62; Pulse 73; Resp 18; Pulse Ox 98% on R/A; ld1 12:24 Body Mass Index 21.63 (58.97 kg, 165.10 cm) jl7 ED Course: 12:05 Patient arrived in ED. mr 12:29 Triage completed. jl7 12:30 Arm band placed on right wrist. Patient placed in an exam room, on a stretcher. jl7 12:34 Bridger Mckeon PA is PHCP. jr8 12:34 Oneida Myrick is Attending Physician. jr8 12:36 Ruthie Pack, RN is Primary Nurse. ld1 12:48 Patient has correct armband on for positive identification. Placed in gown. Bed in low ld1 position. Call light in reach. Side rails up X2. nuclear monitoring technician on. Pulse ox on. NIBP on. Door closed. Noise minimized. Warm blanket given. 12:48 No provider procedures requiring assistance completed. ld1 13:39 XRAY Chest (1 view) In Process Unspecified. EDMS 16:36 IV discontinued, intact, bleeding controlled, No redness/swelling at site. ld1 Administered Medications: 13:20 Drug: Ringers - Lactated Ringers Solution 1000 ml Route: IV; Rate: bolus; Site: left ld1 forearm; 14:42 Drug: NS 0.9% 1000 ml Route: IV; Rate: 1000 ml; Site: left forearm; ld1 Outcome: 15:53 Discharge ordered by MD. wilkes 16:36 Discharged to home ambulatory. ld1 16:36 Condition: stable 16:36 Discharge instructions given to patient, Instructed on discharge instructions, follow up and referral plans. Demonstrated understanding of instructions, follow-up care. 16:37 Patient left the ED. ld1 Signatures: Dispatcher [employer] EDND Heidy Hyde mr Bridger Mckeon PA PA jr8 Priyanka Muniz RN RN jl7 Ruthie Pack, RN RN ld1
[2021-02-24 16:52] VITALS: TEMP 98
[2021-02-24 17:08] VITALS: BP 112/62; O2SAT 98
--- NOTE | 2021-02-25 16:29 | EKG ---
Test Date: 2021-02-24 Test Time: 13:28:27 Fusing Machine Tender: ALBARO MEASUREMENT RESULTS: Intervals: Rate: 59 MT: 124 QRSD: 78 QT: 458 QTc: 453 [place]: P: -15 MT: 124 QRS: 7 T: 22 INTERPRETIVE STATEMENTS: Sinus bradycardia Minimal voltage criteria for LVH, may be normal variant Borderline ECG Compared to ECG 03/20/2019 19:46:24 Left ventricular hypertrophy now present Sinus rhythm no longer present ST (T wave) deviation no longer present Electronically Signed On 02-25-21 16:24:20 CDT by Kojo Valente
== END 2021-02-24 16:37 | disposition home or self-care (01) ==
LOC: ER 12:01
DX: I95.2 Hypotension due to drugs (principal); Z88.2 Allergy status to sulfonamides; Z88.5 Allergy status to narcotic agent; Z88.7 Allergy status to serum and vaccine; Z88.8 Allergy status to other drugs, medicaments and biological substances
CPT/HCPCS: 93005; 85025; 80048; 36415; 83735; 85610; 80076; 81015; 84484; 83880; 71045; 96374; 99284; J7120; J7030

== ENCOUNTER 2023-02-09 04:00 | Emergency (ER) | payer OTHER ==
--- OUTSIDE RECORDS SUMMARY | 2023-02-09 04:49 | XMS REPORT | Continuity of Care Document ---
:1955 Author Organization Formerly [facility] t Address [address] [place] [address] [place] [id number] Care Team Providers Name Role Phone Tod Townsend MD Primary Care Physician RADHA QUINN Attending Clinician Unavailable ZOEY MONSALVE Attending Clinician Unavailable TOD TOWNSEND Attending Clinician Unavailable CIRO BECKMAN Attending Clinician Unavailable Tod Townsend MD Attending Clinician Ciro Beckman MD Attending Clinician Doreen Hardwick Attending Clinician Unavailable Doctor Unassigned, [place] Attending Clinician Unavailable Cheryl CRAWFORD, Ana María Elizabeth Attending Clinician James Rosa MD Attending Clinician JONNY LEONARD Attending Clinician Unavailable Vern CRAWFORD, Roseanna Toure Attending Clinician Jonny Leonard PA-C Attending Clinician Pcp-Lab Attending Clinician Unavailable Elvis Yeboah MD Attending Clinician Unavailable USMAN LOBATO Attending Clinician Unavailable Luis Alfredo BREAST SPLITTER, Usman Pearson Attending Clinician Jeff GNP, Ezequiel Attending Clinician You BREAST SPLITTER, Dana A Attending Clinician Pascale Patel DO Attending Clinician PASCALE PATEL Attending Clinician Unavailable PASCALE PATEL Attending Clinician Unavailable TONNY GUNTER Attending Clinician Unavailable JOS ROSE Attending Clinician Unavailable OTIS MORROW Attending Clinician Unavailable INGE MOONEY Attending Clinician Unavailable YOU DANA A Attending Clinician Unavailable EZEQUIEL KENYON Attending Clinician Unavailable ROJELIO EAST Attending Clinician Unavailable ROJELIO EAST Attending Clinician Unavailable KATIANA MOY Attending Clinician Unavailable CLAUS CASTILLO Attending Clinician Unavailable CLAUS CASTILLO Attending Clinician Unavailable UNKNOWN, ATTENDING Attending Clinician Unavailable RADHA QUINN Admitting Clinician Unavailable Payers Payer Name Policy Type Policy Number Effective Date Expiration Date Kendy venegas MEDICARE PART A [id number] 1992 \\T\\ B 00:00:00 [employer] INDEMNITY [id number] 2019 00:00:00 ICF [id number] 2023 2023 00:00:00 00:00:00 Problems Condition Condition Condition Status Onset Resolution Last Treating Co mments Source Name Details Category Date Date Treatment Clinician Date Respirator Respirator Disease Active U nivers y failure y failure 2-27 ity of 00:00: [place] 00 Medical Branch Eng Eng Disease Active Overview: Univer s syndrome syndrome 2-19 Formattin ity of 00:00: g of this [place] note Medical might be Branch different from the original. Added automatic ally from request for surgery [id number] Anemia Anemia Disease Active Univers 2-20 ity of 00:00: [place] [facility] Psychophys Psychophys Disease Active U nivers iological iological 1-16 ity of insomnia insomnia 00:00: [place] [facility] Immunizati Immunizati Disease Active 2017-07 U nivers on on 0-19 ity of counseling counseling 00:00: [place] 00 [place] H/O H/O Disease Active Overview: Univer s foreign foreign 09-01 Formattin ity o f body body 00:00: g of this [place] aspiration aspiration 00 note Me dical might be Branch different from the original. 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 00:[place] complex complex 00 Medical (MAC) (MAC) Branch infection infection Pulmonary Pulmonary Disease Recurre 2015-07 [place] emphysema, emphysema, nce 1-16 it y of unspecifie unspecifie 00:00: [place] d d 00 Medical emphysema emphysema Bran ch type type Lumbosacra Lumbosacra Disease Active U nivers l l 8-08 ity of spondylosi spondylosi 00:00: [place] with s with 00 Medical radiculopa radiculopa Br anch thy thy Osteoporos Osteoporos Disease Recurre Sachinvie w: Univers is is nce 5-30 Formattin ity of 00:00: g of this [place] 00 note Medical might be Branch different from the original. at wrist. osteopeni a at hip and back. Psoriasis Psoriasis Disease Active Uni vers 5-19 ity of 00:00: [place] [facility] Long-term Long-term Disease Active Uni vers use of use of 5-19 ity of Plaquenil Plaquenil 00:00[place] Seizure Seizure Disease Active Univers disorder disorder 5-19 ity of 00:00: [place] 00 Medical Branch Other Other Disease Active Univers specified specified 3-27 ity of hypothyroi hypothyroi 00:00: [place] dism dism 00 Medical Branch Well woman Well woman Disease Active U nivers exam with exam with 03-11 ity of routine routine 00:00: [place] gynecologi gynecologi 00 Me dical tee exam tee exam Branch alf alf Disease Active Uni vers current current 03-11 ity of use of use of 00:00: [place] opiate opiate 00 Medical analgesic analgesic Bran ch Personal Personal Disease Active Unive rs history of history of 03-11 it y of inflammato inflammato 00:00: [place] ry bowel ry bowel 00 Medica l disease disease Branch Extrapyram Extrapyram Disease Active U nivers idal idal 9-03 ity of movement movement 00:00: [place] disorder disorder 00 Medica l Branch Actinic Actinic Disease Active Univers keratoses keratoses 6-10 ity of 00:00: [place] 00 Medical Branch Status Status Disease Active Univers post post 7-19 ity of gastric gastric 00:00: [place] bypass for bypass for 00 Me dical obesity obesity Branch Anxiety Anxiety Disease Active 2011-07 Univers disorder disorder 1-26 ity of 00:00: [place] 00 Medical Branch 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 00:00: [place] colorectal colorectal 00 Me dical cancer cancer Branch syndrome syndrome S/P total S/P total Disease Active 2011-07 Uni vers abdominal abdominal 0-17 ity of hysterecto hysterecto 00:00: [place] my and my and 00 Medical bilateral bilateral Bran ch salpingo-o salpingo-o ophorectom ophorectom y y 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 6-14 it y of disorder, disorder, 00:00: [place] recurrent recurrent 00 Medi tee episode, episode, Branch moderate moderate Pelvic Pelvic Disease Active 2010-07 Univers floor floor 0-19 ity of dysfunctio dysfunctio 00:00: [place] n n 00 Medical Branch Atrophic Atrophic Disease Active Unive rs vaginitis vaginitis 8- ity of 00:00: [place] 00 Medical Branch Urinary Urinary Disease Active Univers incontinen incontinen 8- it y of ce ce 00:00: [place] 00 Medical Branch Lupus Lupus Disease Active Univers 7-14 ity of 00:00: [place] 00 Medical Branch Vitamin D Vitamin D Disease Active 2009-07 Uni vers deficiency deficiency 0-20 it y of 00:00: [place] [facility] Psoriatic Psoriatic Disease Active Uni vers arthritis arthritis 8-17 ity of 00:00: [place] [facility] Essential Essential Disease Active Uni vers hypertensi hypertensi 5-19 it y of on, benign on, benign 00:00: [place] 00 [place] 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 Pt has history of blood in the stools and was evaluated by a GI consultan t in [place] about 10 years ago who told her she had then inflammat ory bowel disease. However, she has been basically asymptoma tic since except for functiona l bowel symptoms Chronic Chronic Disease Active Overview: Univ ers pain pain Formattin ity of syndrome syndrome g of this [facility] as note Medical might be Branch different from the original. As part of the fibromyal toro Rheumatoid Rheumatoid Disease Active Overview : Univers arthritis arthritis Formattin i ty of g of this [place] note Medical might be Branch different from the original. 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 Allergies, Adverse Reactions, Alerts Allergy Allergy Status Severity Reaction(s) Onset Inactive Treating Comm ents Source Name Type Date Date Clinician Sulfa DA Active [place] [facility] (Sulfona - Clear mide 00:00: [place] Antibiot 00 [facility]) [facility] Influenz DA Active [facility] a Virus - Clear Vaccines 00:00: [place] 00 [facility] baclofen DA Active [place] [facility] 7- Clear 00:00: [place] 00 [facility] levoflox DA Active [place] [facility] acin 02-05 Clear 00:00: [place] 00 [facility] Aripipra Propensi Active Unknown - 2013-07 Symptoms U nivers zole ty to See comments 0-01 of ity of adverse 00:00: tardive [place] reaction 00 dyskinesi Medic al s to a Patient Branch drug states that she is currently taking medicatio n. ARIPIPRA DRUG Active Unknown-Cmnt 2013-07 [place] ZOLE INGREDI 0-01 ity of 00:00: [place] [facility] Quetiapi Propensi Active Unknown - tremors [place] ne ty to See comments 03-05 ity of Fumarate adverse 00:00: [place] reaction Medical s Branch QUETIAPI DRUG Active Unknown-Cmnt [place] NE INGREDI 8 ity of FUMARATE 00:00: [address] Sulfa DA Active U 2005-0 [facility] (Sulfona -16 Clear mide 00:00: [place] Antibiot 00 [facility] No Known DA Active U 2005-0 [facility] Drug 7-16 Clear Intolera 00:00: [place] nces [facility] No Known DA Active U 2006-0 [facility] Contrast 7-16 Clear Allergie 00:00: [facility] No Known DA Active U 2006-0 [facility] Food 7-16 Clear Allergie 00:00: [place] 00 [facility] No Known DA Active U 2006-0 [facility] Other 7-16 Clear Allergie 00:00: [facility] SULFA DA Active U 2006-0 [facility] DRUGS 7-16 Clear 00:00: [place] 00 [facility] Social History Social Habit Start Date Stop Date Quantity Comments Source Gender identity [facility]it y [facility] Sexual orientation Univer sity [facility] History of tobacco Cigarette Smoker University of use [facility] Exposure to 2022-10-08 2022-10-18 Not sure University of SARS-CoV-2 (event) 00:00:00 12:41:00 [facility] Alcohol intake 2022-10-18 2022-10-18 Current University of 00:00:00 00:00:00 non-drinker of [facility] alcohol Branch (finding) Tobacco Comment 2022-04-19 2022-04-19 Pt smoked only Unive rsity of 00:00:00 00:00:00 for 5 years, she Júnior Ga reynaldo says, and quit a Branch long time ago. Cigarettes smoked 2022-04-19 2022-04-19 Univers ity of current (pack per 00:00:00 00:00:00 [facility] ) - Reported Branch Tobacco use and 2022-04-19 2022-04-19 Smokeless Universit y of exposure 00:00:00 00:00:00 tobacco non-user [facility] reynaldo [place] History of Social 2021-11-09 2021-11-09 Univers ity of function 00:00:00 00:00:00 [facility][birth year] [facility] Smoking Status Start Date Stop Date Source Ex-smoker 2022-04-19 00:00:00 2022-04-19 00:00:00 Universi ty [facility] Medications Ordered Filled Start Stop Current Ordering Indication Dosage Frequency Signature Comments Components Source Medication Medication Date Date Medication? Clinician (SIG) Name Name VALACYCLOVI Yes [id number] TAKE 1 Univers R 1 gram 7-25 TABLET BY ity of tablet 00:00: MOUTH [place] 00 TWICE A Medical DAY IN THE Branch MORNING AND IN THE EVENING CELECOXIB Yes [id number] TAKE 1 U nivers 200 mg 7-19 CAPSULE BY ity of capsule 00:00: MOUTH [place] [id number] EVERY Medical MORNING [place] METOPROLOL 0 Yes [id number] TAKE 1 U nivers TARTRATE 25 7-19 TABLET BY ity of mg tablet 00:00: MOUTH [place] 00 TWICE Medical DAILY AT [place] 6AM AND 6PM PHENAZOPYRI Yes [id number] TAKE 1 Univers DINE 100 mg 7-19 TABLET BY ity of tablet 00:00: MOUTH IN [place] 00 THE Medical MORNING AT [place] NOON AND IN THE EVENING cycloSPORIN Yes [id number] 1[drp] Place 1 Univers E 7-19 Drop in ity of (RESTASIS) 00:00: [place] eyes [place] 0.05 % 00 every 12 Medical drops (twelve) Branch hours. cycloSPORIN Yes [id number] 1[drp] Place 1 Univers E 7-19 Drop in ity of (RESTASIS) 00:00: [place] eyes [place] 0.05 % 00 every 12 Medical drops (twelve) Branch hours. CELECOXIB 3-0 Yes [id number] TAKE 1 U nivers 200 mg 7-19 CAPSULE BY ity of capsule 00:00: MOUTH [place] 00 EVERY Medical MORNING Branch METOPROLOL 3-0 Yes [id number] TAKE 1 U nivers TARTRATE 25 7-19 TABLET BY ity of mg tablet 00:00: MOUTH [place] 00 TWICE Medical DAILY AT [place] 6AM AND 6PM PHENAZOPYRI 2023-0 Yes [id number] TAKE 1 Univers DINE 100 mg 7-19 TABLET BY ity of tablet 00:00: MOUTH IN [place] 00 THE Medical MORNING AT [place] NOON AND IN THE EVENING cycloSPORIN 2022-0 Yes [id number] 1[drp] Place 1 Univers E 7-19 Drop in ity of (RESTASIS) 00:00: [place] eyes [place] 0.05 % 00 every 12 Medical drops (twelve) Branch hours. CELECOXIB 2022-0 Yes [id number] TAKE 1 U nivers 200 mg 7-19 CAPSULE BY ity of capsule 00:00: MOUTH [place] 00 EVERY Medical MORNING [place] METOPROLOL 2022-0 Yes [id number] TAKE 1 U nivers TARTRATE 25 7-19 TABLET BY ity of mg tablet 00:00: MOUTH [place] 00 TWICE Medical DAILY AT [place] 6AM AND 6PM PHENAZOPYRI 2023-0 Yes [id number] TAKE 1 Univers DINE 100 mg 7-19 TABLET BY ity of tablet 00:00: MOUTH IN [place] 00 THE Medical MORNING AT [place] NOON AND IN THE EVENING methocarbam 2023-0 Yes [id number] 500mg TAKE 1 Univers oL 500 mg 7-18 TABLET BY ity o f tablet 00:00: MOUTH [place] (FOUR) Medical TIMES [place] DAILY NEEDED (CRAMPS). methocarbam 2023-0 Yes [id number] 500mg TAKE 1 Univers oL 500 mg 7-18 TABLET BY ity o f tablet 00:00: MOUTH 4 [place] (FOUR) Medical TIMES [place] DAILY NEEDED (CRAMPS). methocarbam 2023-0 Yes [id number] 500mg TAKE 1 Univers oL 500 mg 7-18 TABLET BY ity o f tablet 00:00: MOUTH 4 (FOUR) Medical TIMES Branch DAILY NEEDED (CRAMPS). methocarbam 2023-0 Yes [id number] 500mg TAKE 1 Univers oL 500 mg 7-18 TABLET BY ity o f tablet 00:00: MOUTH 4 (FOUR) Medical TIMES Branch DAILY NEEDED (CRAMPS). methocarbam 2023-0 Yes [id number] 500mg TAKE 1 Univers oL 500 mg 7-18 TABLET BY ity o f tablet 00:00: MOUTH (FOUR) Medical TIMES Branch DAILY NEEDED (CRAMPS). methocarbam 3-0 Yes [id number] 500mg TAKE 1 Univers oL 500 mg 7-18 TABLET BY ity o f tablet 00:00: MOUTH (FOUR) Medical TIMES Branch DAILY NEEDED (CRAMPS). HYDROcodone 2022-0 2022- Yes [id number] 1{tbl} Take 1 U nivers -acetaminop 7-18 08-18 tablet by it y of hen (NORCO) 00:00: 04:59 mouth in [place] 10-325 mg 00 :00 the Medical tablet morning Branch and 1 tablet at noon and 1 tablet in the evening. Do all this for 30 days. Indication s: chronic pain HYDROcodone 2022-0 2022- Yes [id number] 1{tbl} Take 1 U nivers -acetaminop 7-18 08-18 tablet by it y of hen (NORCO) 00:00: 04:59 mouth in [place] 10-325 mg 00 :00 the Medical tablet morning Branch and 1 tablet at noon and 1 tablet in the evening. Do all this for 30 days. Indication s: chronic pain HYDROcodone 2022-0 2022- Yes [id number] 1{tbl} Take 1 U nivers -acetaminop 7-18 08-18 tablet by it y of hen (NORCO) 00:00: 04:59 mouth in [place] 10-325 mg 00 :00 the Medical tablet morning Branch and 1 tablet at noon and 1 tablet in the evening. Do all this for 30 days. Indication s: chronic pain HYDROcodone 2022-0 2022- Yes [id number] 1{tbl} Take 1 U nivers -acetaminop 7-18 08-18 tablet by it y of hen (NORCO) 00:00: 04:59 mouth in [place] 10-325 mg 00 :00 the Medical tablet morning Branch and 1 tablet at noon and 1 tablet in the evening. Do all this for 30 days. Indication s: chronic pain HYDROcodone 2022-0 2022- Yes 2745 1{tbl} Take 1 U nivers -acetaminop 7-18 08-18 tablet by it y of hen (NORCO) 00:00: 04:59 mouth in [place] 10-325 mg 00 :00 the Medical tablet morning Branch and 1 tablet at noon and 1 tablet in the evening. Do all this for 30 days. Indication s: chronic pain HYDROcodone 2022-0 2022- Yes 2745 1{tbl} Take 1 U nivers -acetaminop 7-18 08-18 tablet by it y of hen (NORCO) 00:00: 04:59 mouth in [place] 10-325 mg 00 :00 the Medical tablet morning Branch and 1 tablet at noon and 1 tablet in the evening. Do all this for 30 days. Indication s: chronic pain HYDROcodone 2022-0 2022- Yes 2745 1{tbl} Take 1 U nivers -acetaminop 7-18 08-18 tablet by it y of hen (NORCO) 00:00: 04:59 mouth in [place] 10-325 mg 00 :00 the Medical tablet morning Branch and 1 tablet at noon and 1 tablet in the evening. Do all this for 30 days. Indication s: chronic pain HYDROcodone 2022-0 2022- Yes 2745 1{tbl} Take 1 U nivers -acetaminop 7-18 08-18 tablet by it y of hen (NORCO) 00:00: 04:59 mouth in [place] 10-325 mg 00 :00 the Medical tablet morning Branch and 1 tablet at noon and 1 tablet in the evening. Do all this for 30 days. Indication s: chronic pain HYDROcodone 2022-0 2022- Yes 2745 1{tbl} Take 1 U nivers -acetaminop 7-18 08-18 tablet by it y of hen (NORCO) 00:00: 04:59 mouth in [place] 10-325 mg 00 :00 the Medical tablet morning Branch and 1 tablet at noon and 1 tablet in the evening. Do all this for 30 days. Indication s: chronic pain lidocaine 2022- No [id number] 10mL Univers 1% (PF) 01-18 [id number] ity of (XYLOCAINE) 16:30: 16:22 [place] injection 00 :00 Medical 10 mL Branch bupivacaine 2022- No [id number] 2mL Univers (preserv 01-18 [id number] ity of free) 16:30: 16:22 [place] (SENSORCAIN 00 :00 Medical E MPF) 0.25 Branch % (2.5 mg/mL) injection 2 mL sodium 2022- No [id number] 1mL Uni vers bicarbonate 01-18 [id number] ity o f 1 mEq/mL 16:30: 16:22 [place] (8.4 %) 00 :00 Medical injection 1 Branch mL triamcinolo 2022- No [id number] 80mg Univers ne 01-18 [id number] ity of acetonide 16:30: 16:22 [place] (KENALOG) 00 :00 Medical injection Branch 80 mg triamcinolo 2022- No [id number] 80mg 80 mg, Univers ne 01-18 [id number] Infiltrati ity of acetonide 16:30: 16:22 on, ONCE, [place] (KENALOG) 00 :00 1 dose, On Medi tee injection Tue Branch 80 mg 01/18/23 at 1130, Routine sodium 2022- No [id number] 1mL 1 mL, [place] bicarbonate 01-18 [id number] Infiltrati ity of 1 mEq/mL 16:30: 16:22 on, ONCE, [place] (8.4 %) 00 :00 1 dose, On Medica l injection 1 Tue Branch mL 01/18/23 at 1130, Routine bupivacaine 2022- No [id number] 2mL 2 mL, Univers (preserv 01-18 [id number] Infiltrati it y of free) 16:30: 16:22 on, ONCE, [place] (SENSORCAIN 00 :00 1 dose, On Me dical E MPF) 0.25 Tue Branch % (2.5 01/18/23 at mg/mL) 1130, injection 2 Routine mL lidocaine 2022- No [id number] 10mL 10 mL, Univers 1% (PF) 01-18 [id number] Infiltrati ity of (XYLOCAINE) 16:30: 16:22 on, ONCE, [place] injection 00 :00 1 dose, On Medi tee 10 mL Tue Branch 01/18/23 at 1130, Routine lidocaine 2022-0 2022- No [id number] 10mL Univers 1% (PF) 01-18 [id number] ity of (XYLOCAINE) 16:30: 16:22 [place] injection 00 :00 Medical 10 mL Branch bupivacaine 2022- No [id number] 2mL Univers (preserv 01-18 [id number] ity of free) 16:30: 16:22 [place] (SENSORCAIN 00 :00 Medical E MPF) 0.25 Branch % (2.5 mg/mL) injection 2 mL sodium 2022- No [id number] 1mL Uni vers bicarbonate 01-18 [id number] ity o f 1 mEq/mL 16:30: 16:22 [place] (8.4 %) 00 :00 Medical injection 1 Branch mL triamcinolo 2022- No [id number] 80mg Univers ne 01-18 [id number] ity of acetonide 16:30: 16:22 [place] (KENALOG) 00 :00 Medical injection Branch 80 mg triamcinolo 2022- No [id number] 80mg 80 mg, Univers ne 01-18 [id number] Infiltrati ity of acetonide 16:30: 16:22 on, ONCE, [place] (KENALOG) 00 :00 1 dose, On Medi tee injection Tue Branch 80 mg 01/18/23 at 1130, Routine sodium 2022- No [id number] 1mL 1 mL, [place] bicarbonate 01-18 [id number] Infiltrati ity of 1 mEq/mL 16:30: 16:22 on, ONCE, [place] (8.4 %) 00 :00 1 dose, On Medica l injection 1 Tue Branch mL 01/18/23 at 1130, Routine bupivacaine 2022- No [id number] 2mL 2 mL, Univers (preserv 01-18 [id number] Infiltrati it y of free) 16:30: 16:22 on, ONCE, [place] (SENSORCAIN 00 :00 1 dose, On Me dical E MPF) 0.25 Tue Branch % (2.5 01/18/23 at mg/mL) 1130, injection 2 Routine mL lidocaine 2022- No [id number] 10mL 10 mL, Univers 1% (PF) 01-18 [id number] Infiltrati ity of (XYLOCAINE) 16:30: 16:22 on, ONCE, [place] injection 00 :00 1 dose, On Medi tee 10 mL Tue Branch 01/18/23 at 1130, Routine FENTanyl PF 2022- No Slow IV [place] (SUBLIMAZE 01-18 Push, ity of (PF)) 16:25: 16:25 TITRATE - [place] injection 00 :00 FOR Medical PROCEDURE Branch USE, 1 dose, Starting on 01/18/23 at 1125, Until 01/18/23 at 1125, Routine FENTanyl PF 2022- No Slow IV [place] (SUBLIMAZE 01-18 Push, ity of (PF)) 16:25: 16:25 TITRATE - [place] injection 00 :00 FOR Medical PROCEDURE Branch USE, 1 dose, Starting on e 01/18/23 at 1125, Until 01/18/23 at 1125, Routine FENTanyl PF 2022- No Slow IV [place] (SUBLIMAZE 01-18 Push, ity of (PF)) 16:22: 16:22 TITRATE - [place] injection 00 :00 FOR Medical PROCEDURE Branch USE, 1 dose, Starting on e 01/18/23 at 1122, Until 01/18/23 at 1122, Routine FENTanyl PF 2022- No Slow IV [place] (SUBLIMAZE 01-18 Push, ity of (PF)) 16:22: 16:22 TITRATE - [place] injection 00 :00 FOR Medical PROCEDURE Branch USE, 1 dose, Starting on 01/18/23 at 1122, Until 01/18/23 at 1122, Routine FENTanyl PF 2022-2022- No Slow IV [place] (SUBLIMAZE 01-18 Push, ity of (PF)) 16:20: 16:20 TITRATE - [place] injection 00 :00 FOR Medical PROCEDURE Branch USE, 1 dose, Starting on Tue01/18/23 at 1120, Until Tue01/18/23 at 1120, Routine FENTanyl PF 2022- No Slow IV [place] (SUBLIMAZE 01-18 Push, ity of (PF)) 16:20: 16:20 TITRATE - [place] injection 00 :00 FOR Medical PROCEDURE Branch USE, 1 dose, Starting on Tue01/18/23 at 1120, Until Tue01/18/23 at 1120, Routine midazolam 2022- No IV Push, Uni vers (VERSED) 01-18 TITRATE - ity o f injection 16:16: 16:16 FOR [place] 00 :00 PROCEDURE Medical USE, 1 Branch dose, Starting on Tue01/18/23 at 1116, Until Tue01/18/23 at 1116, Routine midazolam 2022- No IV Push, Uni vers (VERSED) 01-18 TITRATE - ity o f injection 16:16: 16:16 FOR [place] 00 :00 PROCEDURE Medical USE, 1 Branch dose, Starting on Tue01/18/23 at 1116, Until Tue01/18/23 at 1116, Routine lactated 2022- No [id number] 500mL Univers ringers IV 01-18 [id number] ity of infusion 15:45: 16:55 [place] 500 mL 00 :00 Medical Branch lactated 2022- No [id number] 500mL at 20 Univers ringers IV 01-18 [id number] mL/hr, 500 ity of infusion 15:45: 16:55 mL, IV [place] 500 mL 00 :00 Infusion, Medical ONCE, 1 Branch dose, On Tue01/18/23 at 1045, Routine lactated 2022- No [id number] 500mL Univers ringers IV 01-18 [id number] ity of infusion 15:45: 16:55 [place] 500 mL 00 :00 Medical Branch lactated 2022- No [id number] 500mL at 20 Univers ringers IV 01-18 [id number] mL/hr, 500 ity of infusion 15:45: 16:55 mL, IV [place] 500 mL 00 :00 Infusion, Medical ONCE, 1 Branch dose, On Tue01/18/23 at 1045, Routine pantoprazol 2023-0 Yes [id number] 40mg Take 1 Univers e 40 mg EC 7-05 tablet by ity of tablet 00:00: mouth in [place] 00 the Medical morning. Branch pantoprazol 2023-0 Yes [id number] 40mg Take 1 Univers e 40 mg EC 7-05 tablet by ity of tablet 00:00: mouth in [place] 00 the Medical morning. Branch pantoprazol 2023-0 Yes [id number] 40mg Take 1 Univers e 40 mg EC 7-05 tablet by ity of tablet 00:00: mouth in [place] 00 the Medical morning. Branch pantoprazol 2023-0 Yes [id number] 40mg Take 1 Univers e 40 mg EC 7-05 tablet by ity of tablet 00:00: mouth in [place] 00 the Medical morning. Branch pantoprazol 2023-0 Yes [id number] 40mg Take 1 Univers e 40 mg EC 7-05 tablet by ity of tablet 00:00: mouth in [place] 00 the Medical morning. Branch pantoprazol 2023-0 Yes [id number] 40mg Take 1 Univers e 40 mg EC 7-05 tablet by ity of tablet 00:00: mouth in [place] 00 the Medical morning. Branch pantoprazol 2023-0 Yes [id number] 40mg Take 1 Univers e 40 mg EC 7-05 tablet by ity of tablet 00:00: mouth in [place] 00 the Medical morning. Branch pantoprazol 2023-0 Yes [id number] 40mg Take 1 Univers e 40 mg EC 7-05 tablet by ity of tablet 00:00: mouth in [place] 00 the Medical morning. Branch pantoprazol 2023-0 Yes [id number] 40mg Take 1 Univers e 40 mg EC 7-05 tablet by ity of tablet 00:00: mouth in [place] 00 the Medical morning. Branch pantoprazol 2023-0 Yes [id number] 40mg Take 1 [facility] 40 mg EC 7-05 tablet by [facility] tablet 00:00: mouth in [place] 00 the Medical morning. Branch pantoprazol 2023-0 Yes [id number] 40mg Take 1 [facility] 40 mg EC 7-05 tablet by [facility] tablet 00:00: mouth in [place] the Medical morning. Branch pantoprazol 2022-0 Yes [id number] 40mg Take 1 [facility] 40 mg EC 7-05 tablet by [facility] tablet 00:00: mouth in [place] the Medical morning. Branch pantoprazol 2022-0 Yes [id number] 40mg Take 1 [facility] 40 mg EC 7-05 tablet by [facility] tablet 00:00: mouth in [place] the Medical morning. Branch pantoprazol 2022-0 Yes [id number] 40mg Take 1 [facility] 40 mg EC 7-05 tablet by [facility] tablet 00:00: mouth in [place] the Medical morning. Branch pantoprazol 2022-0 Yes [id number] 40mg Take 1 [facility] 40 mg EC 7-05 tablet by [facility] tablet 00:00: mouth in [place] the Medical morning. Branch pantoprazol 2022-0 Yes [id number] 40mg Take 1 [facility] 40 mg EC 7-05 tablet by [facility] tablet 00:00: mouth in [place] the Medical morning. Branch pantoprazol 2022-0 Yes [id number] 40mg Take 1 [facility] 40 mg EC 7-05 tablet by [facility] tablet 00:00: mouth in [place] the Medical morning. Branch pantoprazol 2022-0 Yes [id number] 40mg Take 1 [facility] 40 mg EC 7-05 tablet by [facility] tablet 00:00: mouth in [place] the Medical morning. Branch pantoprazol 2022-0 Yes [id number] 40mg Take 1 [facility] 40 mg EC 7-05 tablet by [facility] tablet 00:00: mouth in [place] the Medical morning. Branch pregabalin 2022-0 Yes [id number] 150mg Take 1 [facility] 150 mg 6-25 capsule by [facility] capsule 00:00: mouth in [place] 00 the Medical morning Branch and 1 capsule at noon and 1 capsule in the evening. VALACYCLOVI 3-0 Yes [id number] TAKE 1 [facility] 1 gram 6-25 TABLET BY [facility] tablet 00:00: MOUTH [place] 00 TWICE A Medical DAY IN THE Branch MORNING AND IN THE EVENING FLUCONAZOLE 2023-0 Yes [id number] 150mg TAKE 1 [facility] 150 mg 6-25 TABLET BY [facility] tablet 00:00: MOUTH [place] 00 EVERY Medical OTHER DAY Branch VALACYCLOVI 2023-0 Yes [id number] TAKE 1 [facility] 1 gram 6-25 TABLET BY [facility] tablet 00:00: MOUTH [place] 00 TWICE A Medical DAY IN THE Branch MORNING AND IN THE EVENING FLUCONAZOLE 2022-0 Yes [id number] 150mg TAKE 1 [facility] 150 mg 6-25 TABLET BY [facility] tablet 00:00: MOUTH [place] 00 EVERY Medical OTHER DAY Branch pregabalin 2022-0 Yes [id number] 150mg Take 1 [facility] 150 mg 6-25 capsule by [facility] capsule 00:00: mouth in [place] 00 the Medical morning Branch and 1 capsule at noon and 1 capsule in the evening. VALACYCLOVI 2022-0 Yes [id number] TAKE 1 [facility] 1 gram 6-25 TABLET BY [facility] tablet 00:00: MOUTH [place] 00 TWICE A Medical DAY IN THE Branch MORNING AND IN THE EVENING FLUCONAZOLE 2022-0 Yes [id number] 150mg TAKE 1 [facility] 150 mg 6-25 TABLET BY [facility] tablet 00:00: MOUTH [place] 00 EVERY Medical OTHER DAY Branch pregabalin 2022-0 Yes [id number] 150mg Take 1 [facility] 150 mg 6-25 capsule by [facility] capsule 00:00: mouth in [place] 00 the Medical morning Branch and 1 capsule at noon and 1 capsule in the evening. VALACYCLOVI 2022-0 Yes [id number] TAKE 1 [facility] R 1 gram 6-25 TABLET BY [facility] tablet 00:00: MOUTH [place] 00 TWICE A Medical DAY IN THE Branch MORNING AND IN THE EVENING FLUCONAZOLE 2022-0 Yes [id number] 150mg TAKE 1 [facility] 150 mg 6-25 TABLET BY [facility] tablet 00:00: MOUTH [place] 00 EVERY Medical OTHER DAY Branch pregabalin 2022-0 Yes [id number] 150mg Take 1 [facility] 150 mg 6-25 capsule by [facility] capsule 00:00: mouth in [place] 00 the Medical morning Branch and 1 capsule at noon and 1 capsule in the evening. VALACYCLOVI 2022-0 Yes [id number] TAKE 1 [facility] 1 gram 6-25 TABLET BY [facility] tablet 00:00: MOUTH [place] 00 TWICE A Medical DAY IN THE Branch MORNING AND IN THE EVENING FLUCONAZOLE 2022-0 Yes [id number] 150mg TAKE 1 [facility] 150 mg 6-25 TABLET BY [facility] tablet 00:00: MOUTH [place] 00 EVERY Medical OTHER DAY Branch pregabalin 2022-0 Yes [id number] 150mg Take 1 [facility] 150 mg 6-25 capsule by [facility] capsule 00:00: mouth in [place] 00 the Medical morning Branch and 1 capsule at noon and 1 capsule in the evening. VALACYCLOVI 2022-0 Yes [id number] TAKE 1 [facility] 1 gram 6-25 TABLET BY [facility] tablet 00:00: MOUTH [place] 00 TWICE A Medical DAY IN THE Branch MORNING AND IN THE EVENING FLUCONAZOLE 3-0 Yes [id number] 150mg TAKE 1 [facility] 150 mg 6-25 TABLET BY [facility] tablet 00:00: MOUTH [place] 00 EVERY Medical OTHER DAY Branch pregabalin 2022-0 Yes [id number] 150mg Take 1 [facility] 150 mg 6-25 capsule by [facility] capsule 00:00: mouth in [place] 00 the Medical morning Branch and 1 capsule at noon and 1 capsule in the evening. VALACYCLOVI 2022-0 Yes [id number] TAKE 1 [facility] 1 gram 6-25 TABLET BY [facility] tablet 00:00: MOUTH [place] 00 TWICE A Medical DAY IN THE Branch MORNING AND IN THE EVENING FLUCONAZOLE 2022-0 Yes [id number] 150mg TAKE 1 [facility] 150 mg 6-25 TABLET BY [facility] tablet 00:00: MOUTH [place] 00 EVERY Medical OTHER DAY [place] pregabalin 2022-0 Yes [id number] 150mg Take 1 [facility] 150 mg 6-25 capsule by [facility] capsule 00:00: mouth in [place] the Medical morning Branch and 1 capsule at noon and 1 capsule in the evening. VALACYCLOVI 2022-0 Yes [id number] TAKE 1 [facility] 1 gram 6-25 TABLET BY [facility] tablet 00:00: MOUTH [place] 00 TWICE A Medical DAY IN THE Branch MORNING AND IN THE EVENING FLUCONAZOLE 2022-0 Yes [id number] 150mg TAKE 1 [facility] 150 mg 6-25 TABLET BY [facility] tablet 00:00: MOUTH [place] 00 EVERY Medical OTHER DAY [place] pregabalin 3-0 Yes [id number] 150mg Take 1 [facility] 150 mg 6-25 capsule by [facility] capsule 00:00: mouth in [place] 00 the Medical morning Branch and 1 capsule at noon and 1 capsule in the evening. VALACYCLOVI 2022-0 Yes [id number] TAKE 1 [facility] 1 gram 6-25 TABLET BY [facility] tablet 00:00: MOUTH [place] 00 TWICE A Medical DAY IN THE Branch MORNING AND IN THE EVENING FLUCONAZOLE 3-0 Yes [id number] 150mg TAKE 1 [facility] 150 mg 6-25 TABLET BY [facility] tablet 00:00: MOUTH [place] 00 EVERY Medical OTHER DAY Branch pregabalin 2023-0 Yes [id number] 150mg Take 1 [facility] 150 mg 6-25 capsule by [facility] capsule 00:00: mouth in [place] 00 the Medical morning Branch and 1 capsule at noon and 1 capsule in the evening. VALACYCLOVI 2022-0 Yes [id number] TAKE 1 [facility] 1 gram 6-25 TABLET BY [facility] tablet 00:00: MOUTH [place] 00 TWICE A Medical DAY IN THE Branch MORNING AND IN THE EVENING FLUCONAZOLE 3-0 Yes [id number] 150mg TAKE 1 [facility] 150 mg 6-25 TABLET BY [facility] tablet 00:00: MOUTH [place] 00 EVERY Medical OTHER DAY Branch pregabalin 2022-0 Yes [id number] 150mg Take 1 [facility] 150 mg 6-25 capsule by [facility] capsule 00:00: mouth in [place] 00 the Medical morning Branch and 1 capsule at noon and 1 capsule in the evening. VALACYCLOVI 2022-0 Yes [id number] TAKE 1 [facility] 1 gram 6-25 TABLET BY [facility] tablet 00:00: MOUTH [place] 00 TWICE A Medical DAY IN THE Branch MORNING AND IN THE EVENING FLUCONAZOLE 3-0 Yes [id number] 150mg TAKE 1 [facility] 150 mg 6-25 TABLET BY [facility] tablet 00:00: MOUTH [place] 00 EVERY Medical OTHER DAY Branch pregabalin 3-0 Yes [id number] 150mg Take 1 [facility] 150 mg 6-25 capsule by [facility] capsule 00:00: mouth in [place] 00 the Medical morning Branch and 1 capsule at noon and 1 capsule in the evening. VALACYCLOVI 2022-0 Yes [id number] TAKE 1 [facility] 1 gram 6-25 TABLET BY [facility] tablet 00:00: MOUTH [place] 00 TWICE A Medical DAY IN THE Branch MORNING AND IN THE EVENING FLUCONAZOLE 3-0 Yes [id number] 150mg TAKE 1 [facility] 150 mg 6-25 TABLET BY [facility] tablet 00:00: MOUTH [place] 00 EVERY Medical OTHER DAY Branch pregabalin 2023-0 Yes [id number] 150mg Take 1 [facility] 150 mg 6-25 capsule by [facility] capsule 00:00: mouth in [place] 00 the Medical morning Branch and 1 capsule at noon and 1 capsule in the evening. VALACYCLOVI 2022-0 Yes [id number] TAKE 1 [facility] 1 gram 6-25 TABLET BY [facility] tablet 00:00: MOUTH [place] 00 TWICE A Medical DAY IN THE Branch MORNING AND IN THE EVENING FLUCONAZOLE 2022-0 Yes [id number] 150mg TAKE 1 [facility] 150 mg 6-25 TABLET BY [facility] tablet 00:00: MOUTH [place] 00 EVERY Medical OTHER DAY Branch pregabalin 2022-0 Yes [id number] 150mg Take 1 [facility] 150 mg 6-25 capsule by [facility] capsule 00:00: mouth in [place] 00 the Medical morning Branch and 1 capsule at noon and 1 capsule in the evening. VALACYCLOVI 2022-0 Yes [id number] TAKE 1 [facility] 1 gram 6-25 TABLET BY [facility] tablet 00:00: MOUTH [place] 00 TWICE A Medical DAY IN THE Branch MORNING AND IN THE EVENING FLUCONAZOLE 2022-0 Yes [id number] 150mg TAKE 1 [facility] 150 mg 6-25 TABLET BY [facility] tablet 00:00: MOUTH [place] 00 EVERY Medical OTHER DAY Branch pregabalin 2022-0 Yes [id number] 150mg Take 1 [facility] 150 mg 6-25 capsule by [facility] capsule 00:00: mouth in [place] 00 the Medical morning Branch and 1 capsule at noon and 1 capsule in the evening. VALACYCLOVI 2022-0 Yes [id number] TAKE 1 [facility] 1 gram 6-25 TABLET BY [facility] tablet 00:00: MOUTH [place] 00 TWICE A Medical DAY IN THE Branch MORNING AND IN THE EVENING FLUCONAZOLE 2022-0 Yes [id number] 150mg TAKE 1 [facility] 150 mg 6-25 TABLET BY [facility] tablet 00:00: MOUTH [place] 00 EVERY Medical OTHER DAY Branch pregabalin 2022-0 Yes [id number] 150mg Take 1 [facility] 150 mg 6-25 capsule by [facility] capsule 00:00: mouth in [place] 00 the Medical morning Branch and 1 capsule at noon and 1 capsule in the evening. VALACYCLOVI 2022-0 Yes [id number] TAKE 1 [facility] 1 gram 6-25 TABLET BY [facility] tablet 00:00: MOUTH [place] 00 TWICE A Medical DAY IN THE Branch MORNING AND IN THE EVENING FLUCONAZOLE 2022-0 Yes [id number] 150mg TAKE 1 [facility] 150 mg 6-25 TABLET BY [facility] tablet 00:00: MOUTH [place] 00 EVERY Medical OTHER DAY Branch pregabalin 2022-0 Yes [id number] 150mg Take 1 [facility] 150 mg 6-25 capsule by [facility] capsule 00:00: mouth in [place] 00 the Medical morning Branch and 1 capsule at noon and 1 capsule in the evening. VALACYCLOVI 2022-0 Yes [id number] TAKE 1 [facility] 1 gram 6-25 TABLET BY [facility] of tablet 00:00: MOUTH [place] 00 TWICE A Medical DAY IN THE Branch MORNING AND IN THE EVENING FLUCONAZOLE 3-0 Yes [id number] 150mg TAKE 1 [facility] 150 mg 6-25 TABLET BY [facility] of tablet 00:00: MOUTH [place] 00 EVERY Medical OTHER DAY Branch pregabalin 2022-0 Yes [id number] 150mg Take 1 [facility] 150 mg 6-25 capsule by [facility] capsule 00:00: mouth in [place] 00 the Medical morning Branch and 1 capsule at noon and 1 capsule in the evening. VALACYCLOVI 2022-0 Yes [id number] TAKE 1 [facility] 1 gram 6-25 TABLET BY [facility] of tablet 00:00: MOUTH [place] 00 TWICE A Medical DAY IN THE Branch MORNING AND IN THE EVENING FLUCONAZOLE 2022-0 Yes [id number] 150mg TAKE 1 [facility] 150 mg 6-25 TABLET BY [facility] of tablet 00:00: MOUTH [place] 00 EVERY Medical OTHER DAY [place] pregabalin 2022-0 Yes [id number] 150mg Take 1 [facility] 150 mg 6-25 capsule by [facility] of capsule 00:00: mouth in [place] the Medical morning Branch and 1 capsule at noon and 1 capsule in the evening. VALACYCLOVI 2022-0 Yes [id number] TAKE 1 [facility] R 1 gram 6-25 TABLET BY [facility] of tablet 00:00: MOUTH [place] 00 TWICE A Medical DAY IN THE Branch MORNING AND IN THE EVENING FLUCONAZOLE 2022-0 Yes [id number] 150mg TAKE 1 [facility] 150 mg 6-25 TABLET BY [facility] of tablet 00:00: MOUTH [place] 00 EVERY Medical OTHER DAY [place] pregabalin 3-0 Yes [id number] 150mg Take 1 [facility] 150 mg 6-25 capsule by [facility] of capsule 00:00: mouth in [place] 00 the Medical morning Branch and 1 capsule at noon and 1 capsule in the evening. VALACYCLOVI 2022-0 Yes [id number] TAKE 1 [facility] 1 gram 6-25 TABLET BY [facility] of tablet 00:00: MOUTH [place] 00 TWICE A Medical DAY IN THE Branch MORNING AND IN THE EVENING FLUCONAZOLE 3-0 Yes [id number] 150mg TAKE 1 [facility] 150 mg 6-25 TABLET BY [facility] tablet 00:00: MOUTH [place] 00 EVERY Medical OTHER DAY Branch pregabalin 2023-0 Yes [id number] 150mg Take 1 [facility] 150 mg 6-25 capsule by [facility] of capsule 00:00: mouth in [place] 00 the Medical morning Branch and 1 capsule at noon and 1 capsule in the evening. VALACYCLOVI 3-0 Yes [id number] TAKE 1 [facility] R 1 gram 6-25 TABLET BY [facility] tablet 00:00: MOUTH [place] 00 TWICE A Medical DAY IN THE Branch MORNING AND IN THE EVENING FLUCONAZOLE 3-0 Yes [id number] 150mg TAKE 1 [facility] 150 mg 6-25 TABLET BY [facility] tablet 00:00: MOUTH [place] 00 EVERY Medical OTHER DAY Branch pregabalin 3-0 Yes [id number] 150mg Take 1 [facility] 150 mg 6-25 capsule by [facility] of capsule 00:00: mouth in [place] 00 the Medical morning Branch and 1 capsule at noon and 1 capsule in the evening. FLUCONAZOLE 3-0 Yes [id number] 150mg TAKE 1 [facility] 150 mg 6-25 TABLET BY [facility] of tablet 00:00: MOUTH [place] 00 EVERY Medical OTHER DAY Branch pregabalin 3-0 Yes [id number] 150mg Take 1 [facility] 150 mg 6-25 capsule by [facility] of capsule 00:00: mouth in [place] 00 the Medical morning Branch and 1 capsule at noon and 1 capsule in the evening. pregabalin 2022-0 2023- Yes [id number] 150mg Take 1 [facility] 150 mg 6-25 07-26 capsule by [facility] of capsule 00:00: 04:59 mouth in [place] 00 :00 the Medical morning Branch and 1 capsule at noon and 1 capsule in the evening. Do all this for 30 days. VALACYCLOVI 3-0 2023- No [id number] TAKE 1 [facility] R 1 gram 6-25 07-25 TABLET BY ity o f tablet 00:00: 00:00 MOUTH [place] 00 :00 TWICE A Medical DAY IN THE [place] MORNING AND IN THE EVENING pregabalin 2023-0 2023- No [id number] 150mg Take 1 [facility] 150 mg 6-25 06-22 capsule by [facility] capsule 00:00: 00:00 mouth in [place] 00 :00 the Medical morning Branch and 1 capsule at noon and 1 capsule in the evening. Do all this for 30 days. pantoprazol 2022-0 Yes [id number] 40mg Take 1 [facility] 40 mg EC 6-19 tablet by [facility] tablet 00:00: mouth in [place] 00 the Medical morning. Branch pantoprazol 2022-0 Yes [id number] 40mg Take 1 [facility] 40 mg EC 6-19 tablet by [facility] tablet 00:00: mouth in [place] 00 the Medical morning. Branch pantoprazol 3-0 Yes [id number] 40mg Take 1 [facility] 40 mg EC 6-19 tablet by [facility] tablet 00:00: mouth in [place] 00 the Medical morning. Branch pantoprazol 2022-0 Yes [id number] 40mg Take 1 [facility] 40 mg EC 6-19 tablet by [facility] tablet 00:00: mouth in [place] 00 the Medical morning. Branch pantoprazol 2022-0 Yes [id number] 40mg Take 1 [facility] 40 mg EC 6-19 tablet by [facility] of tablet 00:00: mouth in [place] 00 the Medical morning. Branch pantoprazol 2022-0 Yes [id number] 40mg Take 1 [facility] 40 mg EC 6-19 tablet by [facility] of tablet 00:00: mouth in [place] 00 the Medical morning. Branch pantoprazol 2022-0 Yes [id number] 40mg Take 1 [facility] 40 mg EC 6-19 tablet by [facility] of tablet 00:00: mouth in [place] 00 the Medical morning. Branch pantoprazol 2022-0 2022- No [id number] 40mg Take 1 [facility] 40 mg EC 6-19 07-05 tablet by [facility] tablet 00:00: 00:00 mouth in [place] 00 :00 the Medical morning. Branch HYDROcodone 0 2022- Yes 2745 1{tbl} Take 1 [facility] -acetaminop 6-18 07-19 tablet by [facility] hen ([facility]) 00:00: 04:59 mouth in [place] 10-325 mg 00 :00 the Medical tablet morning Branch and 1 tablet at noon and 1 tablet in the evening. Do all this for 30 days. Indication s: chronic pain HYDROcodone 2022-2022- Yes 2745 1{tbl} Take 1 [facility] -acetaminop 6-18 07-19 tablet by [facility] hen ([facility]) 00:00: 04:59 mouth in [place] 10-325 mg 00 :00 the Medical tablet morning Branch and 1 tablet at noon and 1 tablet in the evening. Do all this for 30 days. Indication s: chronic pain HYDROcodone 2022-0 2022- Yes 2745 1{tbl} Take 1 [facility] -acetaminop 6-18 07-19 tablet by [facility] hen ([facility]) 00:00: 04:59 mouth in [place] 10-325 mg 00 :00 the Medical tablet morning Branch and 1 tablet at noon and 1 tablet in the evening. Do all this for 30 days. Indication s: chronic pain HYDROcodone 2022-0 2022- Yes 2745 1{tbl} Take 1 [facility] -acetaminop 6-18 07-19 tablet by [facility] of hen ([facility]) 00:00: 04:59 mouth in [place] 10-325 mg 00 :00 the Medical tablet morning Branch and 1 tablet at noon and 1 tablet in the evening. Do all this for 30 days. Indication s: chronic pain HYDROcodone 2022-0 2022- Yes 2745 1{tbl} Take 1 [facility] -acetaminop 6-18 07-19 tablet by [facility] hen ([facility]) 00:00: 04:59 mouth in [place] 10-325 mg 00 :00 the Medical tablet morning Branch and 1 tablet at noon and 1 tablet in the evening. Do all this for 30 days. Indication s: chronic pain HYDROcodone 2022-0 2022- Yes 2745 1{tbl} Take 1 [facility] -acetaminop 6-18 07-19 tablet by [facility] hen ([facility]) 00:00: 04:59 mouth in [place] 10-325 mg 00 :00 the Medical tablet morning Branch and 1 tablet at noon and 1 tablet in the evening. Do all this for 30 days. Indication s: chronic pain HYDROcodone 2022-0 2022- Yes 2745 1{tbl} Take 1 [facility] -acetaminop 6-18 07-19 tablet by [facility] of hen ([facility]) 00:00: 04:59 mouth in [place] 10-325 mg 00 :00 the Medical tablet morning Branch and 1 tablet at noon and 1 tablet in the evening. Do all this for 30 days. Indication s: chronic pain HYDROcodone 2022-0 2022- Yes 2745 1{tbl} Take 1 [facility] -acetaminop 6-18 07-19 tablet by [facility] hen ([facility]) 00:00: 04:59 mouth in [place] 10-325 mg 00 :00 the Medical tablet morning Branch and 1 tablet at noon and 1 tablet in the evening. Do all this for 30 days. Indication s: chronic pain HYDROcodone 2022-0 2022- Yes 2745 1{tbl} Take 1 [facility] -acetaminop 6-18 07-19 tablet by [facility] ([facility]) 00:00: 04:59 mouth in [place] 10-325 mg 00 :00 the Medical tablet morning Branch and 1 tablet at noon and 1 tablet in the evening. Do all this for 30 days. Indication s: chronic pain HYDROcodone 2022-0 2022- Yes 2745 1{tbl} Take 1 [facility] -acetaminop 6-18 07-19 tablet by [facility] ([facility]) 00:00: 04:59 mouth in [place] 10-325 mg 00 :00 the Medical tablet morning Branch and 1 tablet at noon and 1 tablet in the evening. Do all this for 30 days. Indication s: chronic pain HYDROcodone 2022-0 2022- Yes 2745 1{tbl} Take 1 [facility] -acetaminop 6-18 07-19 tablet by [facility] ([facility]) 00:00: 04:59 mouth in [place] 10-325 mg 00 :00 the Medical tablet morning Branch and 1 tablet at noon and 1 tablet in the evening. Do all this for 30 days. Indication s: chronic pain HYDROcodone 2022-0 2022- Yes 2745 1{tbl} Take 1 [facility] -acetaminop 6-18 07-19 tablet by [facility] ([facility]) 00:00: 04:59 mouth in [place] 10-325 mg 00 :00 the Medical tablet morning Branch and 1 tablet at noon and 1 tablet in the evening. Do all this for 30 days. Indication s: chronic pain HYDROcodone 3-0 2022- Yes 2745 1{tbl} Take 1 [facility] -acetaminop 6-18 07-19 tablet by [facility] ([facility]) 00:00: 04:59 mouth in [place] 10-325 mg 00 :00 the Medical tablet morning Branch and 1 tablet at noon and 1 tablet in the evening. Do all this for 30 days. Indication s: chronic pain HYDROcodone 2022-0 2022- Yes 2745 1{tbl} Take 1 [facility] -acetaminop 6-18 07-19 tablet by [facility] ([facility]) 00:00: 04:59 mouth in [place] 10-325 mg 00 :00 the Medical tablet morning Branch and 1 tablet at noon and 1 tablet in the evening. Do all this for 30 days. Indication s: chronic pain HYDROcodone 2022-0 2022- Yes 2745 1{tbl} Take 1 [facility] -acetaminop 6-18 07-19 tablet by [facility] ([facility]) 00:00: 04:59 mouth in [place] 10-325 mg 00 :00 the Medical tablet morning Branch and 1 tablet at noon and 1 tablet in the evening. Do all this for 30 days. Indication s: chronic pain HYDROcodone 2022-0 2022- Yes 2745 1{tbl} Take 1 [facility] -acetaminop 6-18 07-19 tablet by [facility] ([facility]) 00:00: 04:59 mouth in [place] 10-325 mg 00 :00 the Medical tablet morning Branch and 1 tablet at noon and 1 tablet in the evening. Do all this for 30 days. Indication s: chronic pain HYDROcodone 2022-0 2022- No 2745 1{tbl} Take 1 [facility] -acetaminop 6-18 07-15 tablet by [facility] ([facility]) 00:00: 00:00 mouth in [place] 10-325 mg 00 :00 the Medical tablet morning Branch and 1 tablet at noon and 1 tablet in the evening. Do all this for 30 days. Indication s: chronic pain HYDROcodone 2022-0 2022- No 2745 1{tbl} Take 1 [facility] -acetaminop 6-18 07-15 tablet by [facility] ([facility]) 00:00: 00:00 mouth in [place] 10-325 mg 00 :00 the Medical tablet morning Branch and 1 tablet at noon and 1 tablet in the evening. Do all this for 30 days. Indication s: chronic pain HYDROcodone 2022-0 Yes 2745 1{tbl} Take 1 [facility] [place] -acetaminop 5-19 tablet by [facility] ([facility]) 00:00: mouth in [place] 10-325 mg 00 the Medical tablet morning Branch and 1 tablet at noon and 1 tablet in the evening. Indication s: chronic pain HYDROcodone 2022-0 Yes 2745 1{tbl} Take 1 [facility] [place] -acetaminop 5-19 tablet by [facility] ([facility]) 00:00: mouth in [place] 10-325 mg 00 the Medical tablet morning Branch and 1 tablet at noon and 1 tablet in the evening. Indication s: chronic pain HYDROcodone 2022-0 Yes 2745 1{tbl} Take 1 [facility] [place] -acetaminop 5-19 tablet by [facility] ([place]) 00:00: mouth in [place] 10-325 mg 00 the Medical tablet morning Branch and 1 tablet at noon and 1 tablet in the evening. Indication s: chronic pain HYDROcodone 2022-0 2022- No 2745 1{tbl} Take 1 [facility] -acetaminop 5-19 06-15 tablet by [facility] ([place]) 00:00: 00:00 mouth in [place] 10-325 mg 00 :00 the Medical tablet morning Branch and 1 tablet at noon and 1 tablet in the evening. Indication s: chronic pain OTEZLA 30 2022-0 Yes [id number] TAKE 1 [facility] mg tablet 5-03 TABLET BY ity o f 00:00: MOUTH 2 [place] 00 TIMES A Medical DAY. Branch OTEZLA 30 2022-0 Yes [id number] TAKE 1 [facility] mg tablet 5-03 TABLET BY ity o f 00:00: MOUTH 2 [place] 00 TIMES A Medical DAY. Branch OTEZLA 30 2022-0 Yes [id number] TAKE 1 [facility] mg tablet 5-03 TABLET BY ity o f 00:00: MOUTH 2 [place] 00 TIMES A Medical DAY. Branch OTEZLA 30 2022-0 Yes [id number] TAKE 1 [facility] mg tablet 5-03 TABLET BY ity o f 00:00: MOUTH 2 [place] 00 TIMES A Medical DAY. Branch OTEZLA 30 2022-0 Yes [id number] TAKE 1 [facility] mg tablet 5-03 TABLET BY ity o f 00:00: MOUTH 2 [place] 00 TIMES A Medical DAY. [place] OTEZLA 0 Yes [id number] TAKE 1 [facility] n[facility] mg tablet 5-03 TABLET BY ity o f 00:00: MOUTH 2 [place] 00 TIMES A Medical DAY. Branch OTEZLA 2022-0 Yes [id number] TAKE 1 [facility] mg tablet 5-03 TABLET BY ity o f 00:00: MOUTH 2 [place] 00 TIMES A Medical DAY. Branch OTEZLA 0 Yes [id number] TAKE 1 [facility] mg tablet 5-03 TABLET BY ity o f 00:00: MOUTH 2 [place] 00 TIMES A Medical DAY. Branch OTEZLA Yes [id number] TAKE 1 [facility] mg tablet 5-03 TABLET BY ity o f 00:00: MOUTH 2 [place] 00 TIMES A Medical DAY. Branch OTEZLA 0 Yes [id number] TAKE 1 [facility] mg tablet 5-03 TABLET BY ity o f 00:00: MOUTH 2 [place] 00 TIMES A Medical DAY. Branch OTEZCA 0 Yes [id number] TAKE 1 [facility] mg tablet 5-03 TABLET BY ity o f 00:00: MOUTH 2 [place] 00 TIMES A Medical DAY. [place] OTEZCA 0 Yes [id number] TAKE 1 [facility] mg tablet 5-03 TABLET BY ity o f 00:00: MOUTH 2 [place] 00 TIMES A Medical DAY. [place] OTEZCA 0 Yes [id number] TAKE 1 [facility] mg tablet 5-03 TABLET BY ity o f 00:00: MOUTH 2 [place] 00 TIMES A Medical DAY. Branch OTEZCA 0 Yes [id number] TAKE 1 [facility] mg tablet 5-03 TABLET BY ity o f 00:00: MOUTH 2 [place] 00 TIMES A Medical DAY. Branch OTEZLA 0 Yes [id number] TAKE 1 [facility] mg tablet 5-03 TABLET BY ity o f 00:00: MOUTH 2 [place] 00 TIMES A Medical DAY. Branch OTEZLA 30 0 Yes [id number] TAKE 1 [facility] mg tablet 5-03 TABLET BY ity o f 00:00: MOUTH 2 [place] 00 TIMES A Medical DAY. Branch OTEZLA 0 Yes [id number] TAKE 1 [facility] nivers mg tablet 5-03 TABLET BY ity o f 00:00: MOUTH 2 [place] 00 TIMES A Medical DAY. Branch OTEZLA 30 2022-0 Yes [id number] TAKE 1 [facility] mg tablet 5-03 TABLET BY ity o f 00:00: MOUTH 2 [place] 00 TIMES A Medical DAY. Branch OTEZLA 30 2022-0 Yes [id number] TAKE 1 [facility] mg tablet 5-03 TABLET BY ity o f 00:00: MOUTH 2 [place] 00 TIMES A Medical DAY. Branch OTEZLA 30 2022-0 Yes [id number] TAKE 1 [facility] mg tablet 5-03 TABLET BY ity o f 00:00: MOUTH 2 [place] 00 TIMES A Medical DAY. Branch OTEZLA 30 2022-0 Yes [id number] TAKE 1 [facility] mg tablet 5-03 TABLET BY ity o f 00:00: MOUTH 2 [place] 00 TIMES A Medical DAY. Branch OTEZCA 2022-0 Yes [id number] TAKE 1 [facility] mg tablet 5-03 TABLET BY ity o f 00:00: MOUTH 2 [place] 00 TIMES A Medical DAY. Branch OTEZCA 0 Yes [id number] TAKE 1 [facility] mg tablet 5-03 TABLET BY ity o f 00:00: MOUTH 2 [place] 00 TIMES A Medical DAY. Branch OTEZCA 0 Yes [id number] TAKE 1 [facility] mg tablet 5-03 TABLET BY ity o f 00:00: MOUTH 2 [place] 00 TIMES A Medical DAY. [place] OTEZCA 2022-0 Yes [id number] TAKE 1 [facility] mg tablet 5-03 TABLET BY ity o f 00:00: MOUTH 2 [place] 00 TIMES A Medical DAY. Branch OTEZLA 30 0 Yes [id number] TAKE 1 [facility] mg tablet 5-03 TABLET BY ity o f 00:00: MOUTH 2 [place] 00 TIMES A Medical DAY. Branch OTEZLA 30 0 Yes [id number] TAKE 1 [facility] mg tablet 5-03 TABLET BY ity o f 00:00: MOUTH 2 [place] 00 TIMES A Medical DAY. Branch OTEZLA 30 2022-0 Yes [id number] TAKE 1 [facility] mg tablet 5-03 TABLET BY ity o f 00:00: MOUTH 2 [place] 00 TIMES A Medical DAY. Branch OTEZLA 30 0 Yes [id number] TAKE 1 [facility] mg tablet 5-03 TABLET BY ity o f 00:00: MOUTH 2 TIMES A Medical DAY. Branch OTEZLA 30 0 Yes [id number] TAKE 1 [facility] mg tablet 5-03 TABLET BY [facility]y o f 00:00: MOUTH 2 00 TIMES A Medical DAY. Branch OTEZLA 30 0 Yes [id number] TAKE 1 [facility] mg tablet 5-03 TABLET BY ity o f 00:00: MOUTH 2 TIMES A Medical DAY. Branch OTEZLA 30 0 Yes [id number] TAKE 1 [facility] mg tablet 5-03 TABLET BY ity o f 00:00: MOUTH 2 TIMES A Medical DAY. Branch METHOCARBAM 2022-0 Yes [id number] 500mg TAKE 1 [facility] 500 mg 4-24 TABLET BY [facility] o f tablet 00:00: MOUTH (FOUR) Medical TIMES Branch DAILY NEEDED (CRAMPS). METHOCARBAM 2022-0 Yes [id number] 500mg TAKE 1 [facility] 500 mg 4-24 TABLET BY ity o f tablet 00:00: MOUTH (FOUR) Medical TIMES Branch DAILY NEEDED (CRAMPS). METHOCARBAM 2022-0 Yes [id number] 500mg TAKE 1 [facility] 500 mg 4-24 TABLET BY ity o f tablet 00:00: MOUTH (FOUR) Medical TIMES Branch DAILY NEEDED (CRAMPS). METHOCARBAM 2022-0 Yes [id number] 500mg TAKE 1 [facility] 500 mg 4-24 TABLET BY ity o f tablet 00:00: MOUTH (FOUR) Medical TIMES Branch DAILY NEEDED (CRAMPS). METHOCARBAM 2022-0 Yes [id number] 500mg TAKE 1 [facility] 500 mg 4-24 TABLET BY ity o f tablet 00:00: MOUTH (FOUR) Medical TIMES Branch DAILY NEEDED (CRAMPS). METHOCARBAM 2022-0 Yes [id number] 500mg TAKE 1 [facility] 500 mg 4-24 TABLET BY ity o f tablet 00:00: MOUTH (FOUR) Medical TIMES Branch DAILY NEEDED (CRAMPS). METHOCARBAM 2023-0 Yes [id number] 500mg TAKE 1 [facility] 500 mg 4-24 TABLET BY ity o f tablet 00:00: MOUTH (FOUR) Medical TIMES Branch DAILY NEEDED (CRAMPS). METHOCARBAM 2023-0 Yes [id number] 500mg TAKE 1 [facility] 500 mg 4-24 TABLET BY ity o f tablet 00:00: MOUTH (FOUR) Medical TIMES Branch DAILY NEEDED (CRAMPS). METHOCARBAM 2023-0 Yes [id number] 500mg TAKE 1 [facility] 500 mg 4-24 TABLET BY ity o f tablet 00:00: MOUTH (FOUR) Medical TIMES Branch DAILY NEEDED (CRAMPS). METHOCARBAM 2023-0 Yes [id number] 500mg TAKE 1 [facility] 500 mg 4-24 TABLET BY ity o f tablet 00:00: MOUTH (FOUR) Medical TIMES Branch DAILY NEEDED (CRAMPS). METHOCARBAM 2023-0 Yes [id number] 500mg TAKE 1 [facility] 500 mg 4-24 TABLET BY ity o f tablet 00:00: MOUTH (FOUR) Medical TIMES Branch DAILY NEEDED (CRAMPS). METHOCARBAM 3-0 Yes [id number] 500mg TAKE 1 [facility] 500 mg 4-24 TABLET BY ity o f tablet 00:00: MOUTH (FOUR) Medical TIMES Branch DAILY NEEDED (CRAMPS). METHOCARBAM 2023-0 Yes [id number] 500mg TAKE 1 [facility] 500 mg 4-24 TABLET BY ity o f tablet 00:00: MOUTH (FOUR) Medical TIMES Branch DAILY NEEDED (CRAMPS). METHOCARBAM 2023-0 Yes [id number] 500mg TAKE 1 [facility] 500 mg 4-24 TABLET BY ity o f tablet 00:00: MOUTH (FOUR) Medical TIMES Branch DAILY NEEDED (CRAMPS). METHOCARBAM 2023-0 Yes [id number] 500mg TAKE 1 [facility] 500 mg 4-24 TABLET BY ity o f tablet 00:00: MOUTH (FOUR) Medical TIMES Branch DAILY NEEDED (CRAMPS). METHOCARBAM 2023-0 Yes [id number] 500mg TAKE 1 [facility] 500 mg 4-24 TABLET BY ity o f tablet 00:00: MOUTH (FOUR) Medical TIMES Branch DAILY NEEDED (CRAMPS). METHOCARBAM 2023-0 Yes [id number] 500mg TAKE 1 [facility] 500 mg 4-24 TABLET BY ity o f tablet 00:00: MOUTH (FOUR) Medical TIMES Branch DAILY NEEDED (CRAMPS). METHOCARBAM 2023-0 Yes [id number] 500mg TAKE 1 [facility] 500 mg 4-24 TABLET BY ity o f tablet 00:00: MOUTH (FOUR) Medical TIMES Branch DAILY NEEDED (CRAMPS). METHOCARBAM 2023-0 Yes [id number] 500mg TAKE 1 [facility] 500 mg 4-24 TABLET BY ity o f tablet 00:00: MOUTH (FOUR) Medical TIMES Branch DAILY NEEDED (CRAMPS). METHOCARBAM 2023-0 Yes [id number] 500mg TAKE 1 [facility] 500 mg 4-24 TABLET BY ity o f tablet 00:00: MOUTH (FOUR) Medical TIMES Branch DAILY NEEDED (CRAMPS). METHOCARBAM 2023-0 Yes [id number] 500mg TAKE 1 [facility] 500 mg 4-24 TABLET BY ity o f tablet 00:00: MOUTH (FOUR) Medical TIMES Branch DAILY NEEDED (CRAMPS). METHOCARBAM 2023-0 Yes [id number] 500mg TAKE 1 [facility] 500 mg 4-24 TABLET BY ity o f tablet 00:00: MOUTH (FOUR) Medical TIMES Branch DAILY NEEDED (CRAMPS). METHOCARBAM 2023-0 Yes [id number] 500mg TAKE 1 [facility] 500 mg 4-24 TABLET BY ity o f tablet 00:00: MOUTH (FOUR) Medical TIMES Branch DAILY NEEDED (CRAMPS). METHOCARBAM 2023-0 2023- No [id number] 500mg TAKE 1 [facility] 500 mg 4-24 07-18 TABLET BY ity of tablet 00:00: 00:00 MOUTH 4 [place] 00 :00 (FOUR) Medical TIMES Branch DAILY NEEDED (CRAMPS). METHOCARBAM 2023-0 2023- No [id number] 500mg TAKE 1 [facility] OL 500 mg 4-24 07-18 TABLET BY ity of tablet 00:00: 00:00 MOUTH 4 [place] 00 :00 (FOUR) Medical TIMES Branch DAILY NEEDED (CRAMPS). METHOCARBAM 2022- No [id number] 500mg TAKE 1 [facility] OL 500 mg 11-01 TABLET BY ity of tablet 00:00: 00:00 MOUTH 4 00 :00 (FOUR) Medical TIMES Branch DAILY NEEDED (CRAMPS). HYDROcodone No 2744 1{tbl} Take 1 [facility] n[facility] -acetaminop 4-18 05-19 tablet by it y of hen ([place]) 00:00: 04:59 [place] 7.5-325 mg 00 :00 every 8 Medica l per tablet (eight) Branch hours as needed for Pain for up to 30 days. Indication s: chronic pain [place]DROcodone No 2744 1{tbl} Take 1 [facility] -acetaminop 4-18 05-19 tablet by it y of hen ([place]) 00:00: 04:59 [place] 7.5-325 mg 00 :00 every 8 Medica l per tablet (eight) Branch hours as needed for Pain for up to 30 days. Indication s: chronic pain HYDROcodone No 274 1{tbl} Take 1 [facility] -acetaminop 4-18 05-19 tablet by it y of hen ([place]) 00:00: 04:59 [place] 7.5-325 mg 00 :00 every 8 Medica l per tablet (eight) Branch hours as needed for Pain for up to 30 days. Indication s: chronic pain [place]DROcodone [place] 2744 1{tbl} Take 1 [facility] -acetaminop 4-18 05-19 tablet by it y of hen ([place]) 00:00: 04:59 [place] 7.5-325 mg 00 :00 every 8 Medica l per tablet (eight) Branch hours as needed for Pain for up to 30 days. Indication s: chronic pain HYDROcodone No 2744 1{tbl} Take 1 [facility] -acetaminop 4-18 05-19 tablet by it y of hen ([place]) 00:00: 04:59 [place] 7.5-325 mg 00 :00 every 8 Medica l per tablet (eight) Branch hours as needed for Pain for up to 30 days. Indication s: chronic pain HYDROcodone 2022-0 2022- No 2745 1{tbl} Take 1 [facility] -acetaminop 4-18 05-19 tablet by it y of hen ([place]) 00:00: 04:59 [place] 7.5-325 mg 00 :00 every 8 Medica l per tablet (eight) Branch hours as needed for Pain for up to 30 days. Indication s: chronic pain HYDROcodone 2022-0 2022- No 2745 1{tbl} Take 1 [facility] -acetaminop 4-18 05-19 tablet by it y of hen ([place]) 00:00: 04:59 [place] 7.5-325 mg 00 :00 every 8 Medica l per tablet (eight) Branch hours as needed for Pain for up to 30 days. Indication s: chronic pain HYDROcodone 2022-0 2022- No 5 1{tbl} Take 1 [facility] -acetaminop 4-18 05-19 tablet by it y of hen ([place]) 00:00: 04:59 [place] 7.5-325 mg 00 :00 every 8 Medica l per tablet (eight) Branch hours as needed for Pain for up to 30 days. Indication s: chronic pain phenazopyri 2023-0 Yes [id number] 100mg Take 1 [facility] dine 3-27 tablet by ity of (PYRIDIUM) 00:00: mouth in [place] 100 mg 00 the Medical tablet morning Branch and 1 tablet at noon and 1 tablet in the evening. phenazopyri 2023-0 Yes [id number] 100mg Take 1 [facility] dine 3-27 tablet by ity of (PYRIDIUM) 00:00: mouth in [place] 100 mg 00 the Medical tablet morning Branch and 1 tablet at noon and 1 tablet in the evening. phenazopyri 2023-0 Yes [id number] 100mg Take 1 [facility] dine 3-27 tablet by ity of (PYRIDIUM) 00:00: mouth in [place] 100 mg 00 the Medical tablet morning Branch and 1 tablet at noon and 1 tablet in the evening. phenazopyri 2023-0 Yes [id number] 100mg Take 1 [facility] dine 3-27 tablet by ity of (PYRIDIUM) 00:00: mouth in [place] 100 mg 00 the Medical tablet morning Branch and 1 tablet at noon and 1 tablet in the evening. phenazopyri 2023-0 Yes [id number] 100mg Take 1 [facility] dine 3-27 tablet by ity of (PYRIDIUM) 00:00: mouth in [place] 100 mg 00 the Medical tablet morning Branch and 1 tablet at noon and 1 tablet in the evening. phenazopyri 2023-0 Yes [id number] 100mg Take 1 [facility] dine 3-27 tablet by ity of (PYRIDIUM) 00:00: mouth in [place] 100 mg 00 the Medical tablet morning Branch and 1 tablet at noon and 1 tablet in the evening. phenazopyri 3-0 Yes [id number] 100mg Take 1 [facility] dine 3-27 tablet by ity of (PYRIDIUM) 00:00: mouth in [place] 100 mg 00 the Medical tablet morning Branch and 1 tablet at noon and 1 tablet in the evening. phenazopyri 3-0 Yes [id number] 100mg Take 1 [facility] dine 3-27 tablet by ity of (PYRIDIUM) 00:00: mouth in [place] 100 mg 00 the Medical tablet morning Branch and 1 tablet at noon and 1 tablet in the evening. phenazopyri 3-0 Yes [id number] 100mg Take 1 [facility] dine 3-27 tablet by ity of (PYRIDIUM) 00:00: mouth in [place] 100 mg 00 the Medical tablet morning Branch and 1 tablet at noon and 1 tablet in the evening. phenazopyri 3-0 Yes [id number] 100mg Take 1 [facility] dine 3-27 tablet by ity of (PYRIDIUM) 00:00: mouth in [place] 100 mg 00 the Medical tablet morning Branch and 1 tablet at noon and 1 tablet in the evening. phenazopyri 2023-0 Yes [id number] 100mg Take 1 [facility] dine 3-27 tablet by ity of (PYRIDIUM) 00:00: mouth in [place] 100 mg 00 the Medical tablet morning Branch and 1 tablet at noon and 1 tablet in the evening. phenazopyri 2023-0 Yes [id number] 100mg Take 1 [facility] dine 3-27 tablet by ity of (PYRIDIUM) 00:00: mouth in [place] 100 mg 00 the Medical tablet morning Branch and 1 tablet at noon and 1 tablet in the evening. phenazopyri 2023-0 Yes [id number] 100mg Take 1 [facility] dine 3-27 tablet by ity of (PYRIDIUM) 00:00: mouth in [place] 100 mg 00 the Medical tablet morning Branch and 1 tablet at noon and 1 tablet in the evening. phenazopyri 2023-0 Yes [id number] 100mg Take 1 [facility] dine 3-27 tablet by ity of (PYRIDIUM) 00:00: mouth in [place] 100 mg 00 the Medical tablet morning Branch and 1 tablet at noon and 1 tablet in the evening. phenazopyri 2023-0 Yes [id number] 100mg Take 1 [facility] dine 3-27 tablet by ity of (PYRIDIUM) 00:00: mouth in [place] 100 mg 00 the Medical tablet morning Branch and 1 tablet at noon and 1 tablet in the evening. phenazopyri 2023-0 Yes [id number] 100mg Take 1 [facility] dine 3-27 tablet by ity of (PYRIDIUM) 00:00: mouth in [place] 100 mg 00 the Medical tablet morning Branch and 1 tablet at noon and 1 tablet in the evening. phenazopyri 2023-0 Yes [id number] 100mg Take 1 [facility] dine 3-27 tablet by ity of (PYRIDIUM) 00:00: mouth in [place] 100 mg 00 the Medical tablet morning Branch and 1 tablet at noon and 1 tablet in the evening. phenazopyri 2023-0 Yes [id number] 100mg Take 1 [facility] dine 3-27 tablet by ity of (PYRIDIUM) 00:00: mouth in [place] 100 mg 00 the Medical tablet morning Branch and 1 tablet at noon and 1 tablet in the evening. phenazopyri 2023-0 Yes [id number] 100mg Take 1 [facility] dine 3-27 tablet by ity of (PYRIDIUM) 00:00: mouth in [place] 100 mg 00 the Medical tablet morning Branch and 1 tablet at noon and 1 tablet in the evening. phenazopyri 2023-0 Yes [id number] 100mg Take 1 [facility] dine 3-27 tablet by ity of (PYRIDIUM) 00:00: mouth in [place] 100 mg 00 the Medical tablet morning Branch and 1 tablet at noon and 1 tablet in the evening. phenazopyri 2023-0 Yes [id number] 100mg Take 1 [facility] dine 3-27 tablet by ity of (PYRIDIUM) 00:00: mouth in [place] 100 mg 00 the Medical tablet morning Branch and 1 tablet at noon and 1 tablet in the evening. phenazopyri 2023-0 Yes [id number] 100mg Take 1 [facility] dine 3-27 tablet by ity of (PYRIDIUM) 00:00: mouth in [place] 100 mg 00 the Medical tablet morning Branch and 1 tablet at noon and 1 tablet in the evening. phenazopyri 2023-0 Yes [id number] 100mg Take 1 [facility] dine 3-27 tablet by ity of (PYRIDIUM) 00:00: mouth in [place] 100 mg 00 the Medical tablet morning Branch and 1 tablet at noon and 1 tablet in the evening. phenazopyri 3-0 Yes [id number] 100mg Take 1 [facility] dine 3-27 tablet by ity of (PYRIDIUM) 00:00: mouth in [place] 100 mg 00 the Medical tablet morning Branch and 1 tablet at noon and 1 tablet in the evening. phenazopyri 3-0 Yes [id number] 100mg Take 1 [facility] dine 3-27 tablet by ity of (PYRIDIUM) 00:00: mouth in [place] 100 mg 00 the Medical tablet morning Branch and 1 tablet at noon and 1 tablet in the evening. phenazopyri 3-0 Yes [id number] 100mg Take 1 [facility] dine 3-27 tablet by ity of (PYRIDIUM) 00:00: mouth in [place] 100 mg 00 the Medical tablet morning Branch and 1 tablet at noon and 1 tablet in the evening. phenazopyri 2023-0 Yes [id number] 100mg Take 1 [facility] dine 3-27 tablet by ity of (PYRIDIUM) 00:00: mouth in [place] 100 mg 00 the Medical tablet morning Branch and 1 tablet at noon and 1 tablet in the evening. phenazopyri 2023-0 Yes [id number] 100mg Take 1 [facility] dine 3-27 tablet by ity of (PYRIDIUM) 00:00: mouth in [place] 100 mg 00 the Medical tablet morning Branch and 1 tablet at noon and 1 tablet in the evening. phenazopyri 2023-0 Yes [id number] 100mg Take 1 [facility] dine 3-27 tablet by ity of (PYRIDIUM) 00:00: mouth in [place] 100 mg 00 the Medical tablet morning Branch and 1 tablet at noon and 1 tablet in the evening. phenazopyri 2022-0 Yes [id number] 100mg Take 1 [facility] dine 3-27 tablet by ity of (PYRIDIUM) 00:00: mouth in [place] 100 mg 00 the Medical tablet morning Branch and 1 tablet at noon and 1 tablet in the evening. phenazopyri 2022-0 Yes [id number] 100mg Take 1 [facility] dine 3-27 tablet by ity of (PYRIDIUM) 00:00: mouth in [place] 100 mg 00 the Medical tablet morning Branch and 1 tablet at noon and 1 tablet in the evening. phenazopyri 2022-0 Yes [id number] 100mg Take 1 [facility] dine 3-27 tablet by ity of (PYRIDIUM) 00:00: mouth in [place] 100 mg 00 the Medical tablet morning Branch and 1 tablet at noon and 1 tablet in the evening. phenazopyri 2022-0 2022- No [id number] 100mg Take 1 [facility] dine 3-27 -19 tablet by ity of (PYRIDIUM) 00:00: 00:00 mouth in [place] 100 mg 00 :00 the Medical tablet morning Branch and 1 tablet at noon and 1 tablet in the evening. phenazopyri 2022-0 2022- No [id number] 100mg Take 1 [facility] dine 3-27 -19 tablet by ity of (PYRIDIUM) 00:00: 00:00 mouth in [place] 100 mg 00 :00 the Medical tablet morning Branch and 1 tablet at noon and 1 tablet in the evening. phenazopyri 2022-0 2022- No [id number] 100mg Take 1 [facility] dine 3-27 -19 tablet by ity of (PYRIDIUM) 00:00: 00:00 mouth in [place] 100 mg 00 :00 the Medical tablet morning Branch and 1 tablet at noon and 1 tablet in the evening. HYDROcodone 2022-0 Yes 2745 1{tbl} Take 1 [facility] [place] -acetaminop 3-18 tablet by [facility] hen ([place]) 00:00: mouth in [place] 10-325 mg 00 the Medical tablet morning Branch and 1 tablet at noon and 1 tablet in the evening. Indication s: chronic pain HYDROcodone 2023-0 Yes 2745 1{tbl} Take 1 [facility] [place] -acetaminop 3-18 tablet by [facility] of hen ([place]) 00:00: mouth in [place] 10-325 mg 00 the Medical tablet morning Branch and 1 tablet at noon and 1 tablet in the evening. Indication s: chronic pain HYDROcodone 2023-0 Yes 2745 1{tbl} Take 1 [facility] [place] -acetaminop 3-18 tablet by [facility] of hen ([place]) 00:00: mouth in [place] 10-325 mg 00 the Medical tablet morning Branch and 1 tablet at noon and 1 tablet in the evening. Indication s: chronic pain HYDROcodone 3-0 Yes 2745 1{tbl} Take 1 [facility] [place] -acetaminop 3-18 tablet by [facility]y of hen ([place]) 00:00: mouth in [place] 10-325 mg 00 the Medical tablet morning Branch and 1 tablet at noon and 1 tablet in the evening. Indication s: chronic pain HYDROcodone 3-0 Yes 2745 1{tbl} Take 1 [facility] [place] -acetaminop 3-18 tablet by [facility] of hen ([place]) 00:00: mouth in [place] 10-325 mg 00 the Medical tablet morning Branch and 1 tablet at noon and 1 tablet in the evening. Indication s: chronic pain HYDROcodone 3-0 Yes 2745 1{tbl} Take 1 [facility] [place] -acetaminop 3-18 tablet by [facility] of hen ([place]) 00:00: mouth in [place] 10-325 mg 00 the Medical tablet morning Branch and 1 tablet at noon and 1 tablet in the evening. Indication s: chronic pain HYDROcodone 2023-0 Yes 2745 1{tbl} Take 1 [facility] [place] -acetaminop 3-18 tablet by [facility] of hen ([place]) 00:00: mouth in [place] 10-325 mg 00 the Medical tablet morning Branch and 1 tablet at noon and 1 tablet in the evening. Indication s: chronic pain HYDROcodone 2023-0 Yes 2745 1{tbl} Take 1 [facility] [place] -acetaminop 3-18 tablet by [facility] of hen ([place]) 00:00: mouth in [place] 10-325 mg 00 the Medical tablet morning Branch and 1 tablet at noon and 1 tablet in the evening. Indication s: chronic pain HYDROcodone 2023-0 Yes 2745 1{tbl} Take 1 [facility] [place] -acetaminop 3-18 tablet by [facility] of hen ([place]) 00:00: mouth in [place] 10-325 mg 00 the Medical tablet morning Branch and 1 tablet at noon and 1 tablet in the evening. Indication s: chronic pain HYDROcodone 2023-0 Yes 2745 1{tbl} Take 1 [facility] [place] -acetaminop 3-18 tablet by [facility] of hen ([place]) 00:00: mouth in [place] 10-325 mg 00 the Medical tablet morning Branch and 1 tablet at noon and 1 tablet in the evening. Indication s: chronic pain HYDROcodone 3-0 Yes 2745 1{tbl} Take 1 [facility] [place] -acetaminop 3-18 tablet by [facility] of hen ([place]) 00:00: mouth in [place] 10-325 mg 00 the Medical tablet morning Branch and 1 tablet at noon and 1 tablet in the evening. Indication s: chronic pain HYDROcodone 3-0 202- No 2745 1{tbl} Take 1 [facility] -acetaminop 3-18 05-08 tablet by it y of hen ([place]) 00:00: 00:00 mouth in [place] 10-325 mg 00 :00 the Medical tablet morning Branch and 1 tablet at noon and 1 tablet in the evening. Indication s: chronic pain fluconazole 3-0 Yes [id number] 150mg TAKE 1 [facility] 150 mg 3-17 TABLET BY ity of tablet 00:00: MOUTH [place] 00 EVERY Medical OTHER DAY Branch VALACYCLOVI 3-0 Yes [id number] TAKE 1 [facility] R 1 gram 3-17 TABLET BY ity of tablet 00:00: MOUTH IN [place] 00 THE Medical MORNING Branch AND IN THE EVENING fluconazole 3-0 Yes [id number] 150mg TAKE 1 [facility] 150 mg 3-17 TABLET BY ity of tablet 00:00: MOUTH [place] 00 EVERY Medical OTHER DAY Branch VALACYCLOVI 3-0 Yes [id number] TAKE 1 [facility] R 1 gram 3-17 TABLET BY ity of tablet 00:00: MOUTH IN [place] 00 THE Medical MORNING Branch AND IN THE EVENING fluconazole 3-0 Yes [id number] 150mg TAKE 1 [facility] 150 mg 3-17 TABLET BY ity of tablet 00:00: MOUTH [place] EVERY Medical OTHER DAY Branch VALACYCLOVI Yes [id number] TAKE 1 [facility] R 1 gram 3-17 TABLET BY ity of tablet 00:00: MOUTH IN [place] THE Medical MORNING Branch AND IN THE EVENING fluconazole Yes [id number] 150mg TAKE 1 [facility] 150 mg 3-17 TABLET BY ity of tablet 00:00: MOUTH [place] EVERY Medical OTHER DAY Branch VALACYCLOVI Yes [id number] TAKE 1 [facility] R 1 gram 3-17 TABLET BY ity of tablet 00:00: MOUTH IN [place] THE Medical MORNING Branch AND IN THE EVENING fluconazole Yes [id number] 150mg TAKE 1 [facility] 150 mg 3-17 TABLET BY ity of tablet 00:00: MOUTH [place] EVERY Medical OTHER DAY Branch VALACYCLOVI Yes [id number] TAKE 1 [facility] R 1 gram 3-17 TABLET BY ity of tablet 00:00: MOUTH IN [place] THE Medical MORNING Branch AND IN THE EVENING fluconazole Yes [id number] 150mg TAKE 1 [facility] 150 mg 3-17 TABLET BY ity of tablet 00:00: MOUTH [place] EVERY Medical OTHER DAY Branch VALACYCLOVI Yes [id number] TAKE 1 [facility] R 1 gram 3-17 TABLET BY ity of tablet 00:00: MOUTH IN [place] THE Medical MORNING Branch AND IN THE EVENING fluconazole Yes [id number] 150mg TAKE 1 [facility] 150 mg 3-17 TABLET BY ity of tablet 00:00: MOUTH [place] EVERY Medical OTHER DAY Branch VALACYCLOVI Yes [id number] TAKE 1 [facility] R 1 gram 3-17 TABLET BY ity of tablet 00:00: MOUTH IN [place] THE Medical MORNING Branch AND IN THE EVENING fluconazole Yes [id number] 150mg TAKE 1 [facility] 150 mg 3-17 TABLET BY ity of tablet 00:00: MOUTH [place] EVERY Medical OTHER DAY Branch VALACYCLOVI Yes [id number] TAKE 1 [facility] R 1 gram 3-17 TABLET BY ity of tablet 00:00: MOUTH IN [place] [address] THE Medical MORNING Branch AND IN THE EVENING fluconazole Yes [id number] 150mg TAKE 1 [facility] 150 mg 3-17 TABLET BY ity of tablet 00:00: MOUTH [place] EVERY Medical OTHER DAY Branch VALACYCLOVI Yes [id number] TAKE 1 [facility] R 1 gram 3-17 TABLET BY ity of tablet 00:00: MOUTH IN [place] THE Medical MORNING Branch AND IN THE EVENING fluconazole Yes [id number] 150mg TAKE 1 [facility] 150 mg 3-17 TABLET BY ity of tablet 00:00: MOUTH [place] EVERY Medical OTHER DAY Branch VALACYCLOVI Yes [id number] TAKE 1 [facility] R 1 gram 3-17 TABLET BY ity of tablet 00:00: MOUTH IN [place] THE Medical MORNING Branch AND IN THE EVENING fluconazole Yes [id number] 150mg TAKE 1 [facility] 150 mg 3-17 TABLET BY ity of tablet 00:00: MOUTH [place] EVERY Medical OTHER DAY Branch VALACYCLOVI Yes [id number] TAKE 1 [facility] R 1 gram 3-17 TABLET BY ity of tablet 00:00: MOUTH IN [place] THE Medical MORNING Branch AND IN THE EVENING fluconazole Yes [id number] 150mg TAKE 1 [facility] 150 mg 3-17 TABLET BY ity of tablet 00:00: MOUTH [place] EVERY Medical OTHER DAY Branch VALACYCLOVI Yes [id number] TAKE 1 [facility] R 1 gram 3-17 TABLET BY ity of tablet 00:00: MOUTH IN [place] THE Medical MORNING Branch AND IN THE EVENING fluconazole Yes [id number] 150mg TAKE 1 [facility] 150 mg 3-17 TABLET BY ity of tablet 00:00: MOUTH [place] EVERY Medical OTHER DAY Branch VALACYCLOVI Yes [id number] TAKE 1 [facility] R 1 gram 3-17 TABLET BY ity of tablet 00:00: MOUTH IN [place] THE Medical MORNING Branch AND IN THE EVENING fluconazole Yes [id number] 150mg TAKE 1 [facility] 150 mg 3-17 TABLET BY ity of tablet 00:00: MOUTH [place] EVERY Medical OTHER DAY Branch VALACYCLOVI Yes [id number] TAKE 1 [facility] R 1 gram 3-17 TABLET BY ity of tablet 00:00: MOUTH IN [place] THE Medical MORNING Branch AND IN THE EVENING fluconazole Yes [id number] 150mg TAKE 1 [facility] 150 mg 3-17 TABLET BY ity of tablet 00:00: MOUTH [place] EVERY Medical OTHER DAY Branch VALACYCLOVI Yes [id number] TAKE 1 [facility] R 1 gram 3-17 TABLET BY ity of tablet 00:00: MOUTH IN [place] 00 THE Medical MORNING Branch AND IN THE EVENING fluconazole 0 Yes [id number] 150mg TAKE 1 [facility] 150 mg 3-17 TABLET BY ity of tablet 00:00: MOUTH [place] 00 EVERY Medical OTHER DAY Branch VALACYCLOVI 2022-0 Yes [id number] TAKE 1 [facility] R 1 gram 3-17 TABLET BY ity of tablet 00:00: MOUTH IN [place] 00 THE Medical MORNING Branch AND IN THE EVENING fluconazole 2022-0 2022- No [id number] 150mg TAKE 1 [facility] 150 mg 3-17 06-25 TABLET BY ity of tablet 00:00: 00:00 MOUTH [place] 00 :00 EVERY Medical OTHER DAY Branch VALACYCLOVI 2022-0 2022- No [id number] TAKE 1 [facility] R 1 gram 3-17 06-25 TABLET BY ity o f tablet 00:00: 00:00 MOUTH IN [place] 00 :00 THE Medical MORNING Branch AND IN THE EVENING OTEZLA 30 Yes [id number] TAKE 1 [facility] mg tablet 2-23 TABLET BY ity o f 00:00: MOUTH 2 [place] 00 TIMES A Medical DAY. Branch OTEZLA 30 Yes [id number] TAKE 1 [facility] mg tablet 2-23 TABLET BY ity o f 00:00: MOUTH 2 [place] 00 TIMES A Medical DAY. Branch OTEZCA 30 0 Yes [id number] TAKE 1 [facility] mg tablet 2-23 TABLET BY ity o f 00:00: MOUTH 2 [place] 00 TIMES A Medical DAY. Branch OTEZLA 30 0 Yes [id number] TAKE 1 [facility] mg tablet 2-23 TABLET BY ity o f 00:00: MOUTH 2 [place] 00 TIMES A Medical DAY. Branch OTEZLA 30 0 Yes [id number] TAKE 1 [facility] mg tablet 2-23 TABLET BY ity o f 00:00: MOUTH 2 [place] 00 TIMES A Medical DAY. Branch OTEZLA 30 0 Yes [id number] TAKE 1 [facility] mg tablet 2-23 TABLET BY ity o f 00:00: MOUTH 2 [place] 00 TIMES A Medical DAY. Branch OTEZLA 30 0 Yes [id number] TAKE 1 [facility] mg tablet 2-23 TABLET BY ity o f 00:00: MOUTH 2 [place] 00 TIMES A Medical DAY. Branch OTEZLA 30 2022-0 Yes [id number] TAKE 1 [facility] mg tablet 2-23 TABLET BY ity o f 00:00: MOUTH 2 [place] 00 TIMES A Medical DAY. Branch OTEZCA 30 2022-0 Yes [id number] TAKE 1 [facility] mg tablet 2-23 TABLET BY ity o f 00:00: MOUTH 2 [place] 00 TIMES A Medical DAY. Branch OTEZCA 30 2022-0 Yes [id number] TAKE 1 [facility] mg tablet 2-23 TABLET BY ity o f 00:00: MOUTH 2 [place] 00 TIMES A Medical DAY. [place] OTEZCA 30 0 2023- No [id number] TAKE 1 [facility] mg tablet 2-23 05-03 TABLET BY ity of 00:00: 00:00 MOUTH 2 [place] 00 :00 TIMES A Medical DAY. Branch valACYclovi 2022-0 Yes [id number] 1g Take 1 [facility] r (VALTREX) 2-22 tablet by ity of 1 gram 00:00: mouth in [place] tablet 00 the Medical morning Branch and 1 tablet in the evening. valACYclovi 2022-0 Yes [id number] 1g Take 1 [facility] r (VALTREX) 2-22 tablet by ity of 1 gram 00:00: mouth in [place] tablet 00 the Medical morning Branch and 1 tablet in the evening. valACYclovi 2022-0 Yes [id number] 1g Take 1 [facility] r (VALTREX) 2-22 tablet by ity of 1 gram 00:00: mouth in [place] tablet 00 the Medical morning Branch and 1 tablet in the evening. valACYclovi 2022-0 Yes [id number] 1g Take 1 [facility] (VALTREX) 2-22 tablet by ity of 1 gram 00:00: mouth in [place] tablet 00 the Medical morning Branch and 1 tablet in the evening. valACYclovi 2022-0 3- No [id number] 1g Take 1 [facility] (VALTREX) 2-22 03-17 tablet by it y of 1 gram 00:00: 00:00 mouth in [place] tablet 00 :00 the Medical morning Branch and 1 tablet in the evening. pregabalin 2022-0 Yes [id number] 150mg Take 1 [facility] 150 mg 2-17 capsule by it[facility] of capsule 00:00: mouth in [place] 00 the Medical morning Branch and 1 capsule at noon and 1 capsule in the evening. pregabalin 2022-0 Yes [id number] 150mg Take 1 [facility] 150 mg 2-17 capsule by ity of capsule 00:00: mouth in [address] and 1 capsule at noon and 1 capsule in the evening. pregabalin 2023-0 Yes [id number] 150mg Take 1 [facility] 150 mg 2-17 capsule by it[facility] of capsule 00:00: mouth in [address] and 1 capsule at noon and 1 capsule in the evening. pregabalin 2023-0 Yes [id number] 150mg Take 1 [facility] 150 mg 2-17 capsule by ity of capsule 00:00: mouth in [address] and 1 capsule at noon and 1 capsule in the evening. pregabalin 2023-0 Yes [id number] 150mg Take 1 [facility] 150 mg 2-17 capsule by it[facility] of capsule 00:00: mouth in [address] and 1 capsule at noon and 1 capsule in the evening. pregabalin 2023-0 Yes [id number] 150mg Take 1 [facility] 150 mg 2-17 capsule by it[facility] of capsule 00:00: mouth in [address] and 1 capsule at noon and 1 capsule in the evening. pregabalin 2023-0 Yes [id number] 150mg Take 1 [facility] 150 mg 2-17 capsule by it[facility] of capsule 00:00: mouth in [address] and 1 capsule at noon and 1 capsule in the evening. pregabalin 2023-0 Yes [id number] 150mg Take 1 [facility] 150 mg 2-17 capsule by ity of capsule 00:00: mouth in [address] and 1 capsule at noon and 1 capsule in the evening. pregabalin 2023-0 Yes [id number] 150mg Take 1 [facility] 150 mg 2-17 capsule by it[facility] of capsule 00:00: mouth in [address] and 1 capsule at noon and 1 capsule in the evening. pregabalin 2023-0 Yes [id number] 150mg Take 1 [facility] 150 mg 2-17 capsule by it[facility] of capsule 00:00: mouth in [address] and 1 capsule at noon and 1 capsule in the evening. pregabalin 2023-0 Yes [id number] 150mg Take 1 [facility] 150 mg 2-17 capsule by ity of capsule 00:00: mouth in [address] morning [place] and 1 capsule at noon and 1 capsule in the evening. pregabalin 2023-0 Yes [id number] 150mg Take 1 [facility] 150 mg 2-17 capsule by ity of capsule 00:00: mouth in [address] and 1 capsule at noon and 1 capsule in the evening. pregabalin 2023-0 Yes [id number] 150mg Take 1 [facility] 150 mg 2-17 capsule by ity of capsule 00:00: mouth in [address] morning [place] and 1 capsule at noon and 1 capsule in the evening. pregabalin 2023-0 Yes [id number] 150mg Take 1 [facility] 150 mg 2-17 capsule by ity of capsule 00:00: mouth in [address] and 1 capsule at noon and 1 capsule in the evening. pregabalin 2023-0 Yes [id number] 150mg Take 1 [facility] 150 mg 2-17 capsule by it[facility] of capsule 00:00: mouth in [address] and 1 capsule at noon and 1 capsule in the evening. pregabalin 2023-0 Yes [id number] 150mg Take 1 [facility] 150 mg 2-17 capsule by ity of capsule 00:00: mouth in [address] and 1 capsule at noon and 1 capsule in the evening. pregabalin 2023-0 Yes [id number] 150mg Take 1 [facility] 150 mg 2-17 capsule by ity of capsule 00:00: mouth in [address] and 1 capsule at noon and 1 capsule in the evening. pregabalin 2023-0 Yes [id number] 150mg Take 1 [facility] 150 mg 2-17 capsule by ity of capsule 00:00: mouth in [address] and 1 capsule at noon and 1 capsule in the evening. pregabalin 2023-0 Yes [id number] 150mg Take 1 [facility] 150 mg 2-17 capsule by ity of capsule 00:00: mouth in [address] and 1 capsule at noon and 1 capsule in the evening. pregabalin 2023-0 Yes [id number] 150mg Take 1 [facility] 150 mg 2-17 capsule by it[facility] of capsule 00:00: mouth in [address] and 1 capsule at noon and 1 capsule in the evening. pregabalin 2023-0 Yes [id number] 150mg Take 1 [facility] 150 mg 2-17 capsule by ity of capsule 00:00: mouth in [place] 00 the Medical morning Branch and 1 capsule at noon and 1 capsule in the evening. pregabalin 2023-0 Yes [id number] 150mg Take 1 [facility] 150 mg 2-17 capsule by it[facility] of capsule 00:00: mouth in [place] 00 the Medical morning Branch and 1 capsule at noon and 1 capsule in the evening. pregabalin 2023-0 2023- No [id number] 150mg Take 1 [facility] 150 mg 2-17 06-21 capsule by ity of capsule 00:00: 00:00 mouth in [place] 00 :00 the Medical morning Branch and 1 capsule at noon and 1 capsule in the evening. pregabalin 2023-0 2023- No [id number] 150mg Take 1 [facility] 150 mg 2-17 06-21 capsule by ity of capsule 00:00: 00:00 mouth in [place] 00 :00 the Medical morning Branch and 1 capsule at noon and 1 capsule in the evening. HYDROcodone 3-0 Yes 2745 1{tbl} Take 1 [place] -acetaminop 2-16 tablet by [facility] of hen ([facility]) 00:00: mouth in [place] 10-325 mg 00 the Medical tablet morning Branch and 1 tablet at noon and 1 tablet in the evening. Indication s: chronic pain HYDROcodone 2023-0 Yes 2745 1{tbl} Take 1 [place] -acetaminop 2-16 tablet by ity of hen ([facility]) 00:00: mouth in [place] 10-325 mg 00 the Medical tablet morning Branch and 1 tablet at noon and 1 tablet in the evening. Indication s: chronic pain HYDROcodone 2023-0 Yes 2745 1{tbl} Take 1 [place] -acetaminop 2-16 tablet by [facility] of hen ([facility]) 00:00: mouth in [place] 10-325 mg 00 the Medical tablet morning Branch and 1 tablet at noon and 1 tablet in the evening. Indication s: chronic pain HYDROcodone 2023-0 Yes 2745 1{tbl} Take 1 [place] -acetaminop 2-16 tablet by [facility] of hen ([place]) 00:00: mouth in [place] 10-325 mg 00 the Medical tablet morning Branch and 1 tablet at noon and 1 tablet in the evening. Indication s: chronic pain HYDROcodone 2023-0 Yes 2745 1{tbl} Take 1 [place] -acetaminop 2-16 tablet by [facility] of hen ([facility]) 00:00: mouth in [place] 10-325 mg 00 the Medical tablet morning Branch and 1 tablet at noon and 1 tablet in the evening. Indication s: chronic pain HYDROcodone 2023-0 Yes 2745 1{tbl} Take 1 [place] -acetaminop 2-16 tablet by [facility] of hen ([facility]) 00:00: mouth in [place] 10-325 mg 00 the Medical tablet morning Branch and 1 tablet at noon and 1 tablet in the evening. Indication s: chronic pain HYDROcodone 2023-0 Yes 2745 1{tbl} Take 1 [place] -acetaminop 2-16 tablet by [facility] of hen ([facility]) 00:00: mouth in [place] 10-325 mg 00 the Medical tablet morning Branch and 1 tablet at noon and 1 tablet in the evening. Indication s: chronic pain HYDROcodone 3-0 Yes 2745 1{tbl} Take 1 [place] -acetaminop 2-16 tablet by [facility] of [facility] ([facility]) 00:00: mouth in [place] 10-325 mg 00 the Medical tablet morning Branch and 1 tablet at noon and 1 tablet in the evening. Indication s: chronic pain HYDROcodone 2023-0 Yes 2745 1{tbl} Take 1 [place] -acetaminop 2-16 tablet by [facility] of hen ([facility]) 00:00: mouth in [place] 10-325 mg 00 the Medical tablet morning Branch and 1 tablet at noon and 1 tablet in the evening. Indication s: chronic pain HYDROcodone 2023-0 2023- No 2745 1{tbl} Take 1 [facility] -acetaminop 2-16 03-16 tablet by it y of hen ([facility]) 00:00: 00:00 mouth in [place] 10-325 mg 00 :00 the Medical tablet morning Branch and 1 tablet at noon and 1 tablet in the evening. Indication s: chronic pain HYDROcodone 2023-0 2023- No 2745 1{tbl} Take 1 [facility] -acetaminop 2-16 03-16 tablet by it y of hen ([facility]) 00:00: 00:00 mouth in [place] 10-325 mg 00 :00 the Medical tablet morning Branch and 1 tablet at noon and 1 tablet in the evening. Indication s: chronic pain HYDROcodone 3- No 2745 1{tbl} Take 1 [facility] -acetaminop 2-16 03-16 tablet by it y of hen ([facility]) 00:00: 00:00 mouth in [place] 10-325 mg 00 :00 the Medical tablet morning Branch and 1 tablet at noon and 1 tablet in the evening. Indication s: chronic pain fluconazole Yes [id number] 150mg Take 1 [facility] 150 mg 2-15 tablet by it[facility] of tablet 00:00: mouth [place] 00 every Medical other day. Branch fluconazole 0 Yes [id number] 150mg Take 1 [facility] 150 mg 2-15 tablet by ity of tablet 00:00: mouth [place] 00 every Medical other day. Branch fluconazole 0 Yes [id number] 150mg Take 1 [facility] 150 mg 2-15 tablet by [facility] of tablet 00:00: mouth [place] 00 every Medical other day. Branch fluconazole 0 Yes [id number] 150mg Take 1 [facility] 150 mg 2-15 tablet by it[facility] of tablet 00:00: mouth [place] 00 every Medical other day. Branch fluconazole 0 Yes [id number] 150mg Take 1 [facility] 150 mg 2-15 tablet by it[facility] of tablet 00:00: mouth [place] 00 every Medical other day. Branch fluconazole 0 Yes [id number] 150mg Take 1 [facility] 150 mg 2-15 tablet by it[facility] of tablet 00:00: mouth [place] 00 every Medical other day. Branch fluconazole 0 Yes [id number] 150mg Take 1 [facility] 150 mg 2-15 tablet by it[facility] of tablet 00:00: mouth [place] 00 every Medical other day. Branch fluconazole 0 2022- No [id number] 150mg Take 1 [facility] 150 mg 2-15 03-17 tablet by ity of tablet 00:00: 00:00 mouth [place] 00 :00 every Medical other day. Branch fluconazole 0 2022- No [id number] 150mg Take 1 [facility] 150 mg 2-15 03-17 tablet by ity of tablet 00:00: 00:00 mouth [place] 00 :00 every Medical other day. Branch fluconazole 2022-0 3- No [id number] 150mg Take 1 [facility] 150 mg 2-15 03-17 tablet by ity of tablet 00:00: 00:00 mouth [place] 00 :00 every Medical other day. Branch METHOCARBAM 2022-0 Yes [id number] 500mg TAKE 1 [facility] 500 mg 2-13 TABLET BY it[facility] o f tablet 00:00: MOUTH (FOUR) Medical TIMES Branch DAILY NEEDED (CRAMPS). METHOCARBAM 2022-0 Yes [id number] 500mg TAKE 1 [facility] 500 mg 2-13 TABLET BY ity o f tablet 00:00: MOUTH (FOUR) Medical TIMES Branch DAILY NEEDED (CRAMPS). METHOCARBAM 2022-0 Yes [id number] 500mg TAKE 1 [facility] 500 mg 2-13 TABLET BY ity o f tablet 00:00: MOUTH (FOUR) Medical TIMES Branch DAILY NEEDED (CRAMPS). METHOCARBAM 2022-0 Yes [id number] 500mg TAKE 1 [facility] 500 mg 2-13 TABLET BY ity o f tablet 00:00: MOUTH (FOUR) Medical TIMES Branch DAILY NEEDED (CRAMPS). METHOCARBAM 2022-0 Yes [id number] 500mg TAKE 1 [facility] 500 mg 2-13 TABLET BY ity o f tablet 00:00: MOUTH (FOUR) Medical TIMES Branch DAILY NEEDED (CRAMPS). METHOCARBAM 2022-0 Yes [id number] 500mg TAKE 1 [facility] 500 mg 2-13 TABLET BY ity o f tablet 00:00: MOUTH (FOUR) Medical TIMES Branch DAILY NEEDED (CRAMPS). METHOCARBAM 2022-0 Yes [id number] 500mg TAKE 1 [facility] 500 mg 2-13 TABLET BY ity o f tablet 00:00: MOUTH (FOUR) Medical TIMES Branch DAILY NEEDED (CRAMPS). METHOCARBAM 3-0 Yes [id number] 500mg TAKE 1 [facility] 500 mg 2-13 TABLET BY ity o f tablet 00:00: MOUTH (FOUR) Medical TIMES Branch DAILY NEEDED (CRAMPS). METHOCARBAM 3-0 Yes [id number] 500mg TAKE 1 [facility] 500 mg 2-13 TABLET BY ity o f tablet 00:00: MOUTH (FOUR) Medical TIMES Branch DAILY NEEDED (CRAMPS). METHOCARBAM 2023-0 Yes [id number] 500mg TAKE 1 [facility] 500 mg 2-13 TABLET BY ity o f tablet 00:00: MOUTH (FOUR) Medical TIMES Branch DAILY NEEDED (CRAMPS). METHOCARBAM 2023-0 Yes [id number] 500mg TAKE 1 [facility] 500 mg 2-13 TABLET BY ity o f tablet 00:00: MOUTH (FOUR) Medical TIMES Branch DAILY NEEDED (CRAMPS). METHOCARBAM 2023-0 Yes [id number] 500mg TAKE 1 [facility] 500 mg 2-13 TABLET BY ity o f tablet 00:00: MOUTH (FOUR) Medical TIMES Branch DAILY NEEDED (CRAMPS). METHOCARBAM 2023-0 Yes [id number] 500mg TAKE 1 [facility] 500 mg 2-13 TABLET BY ity o f tablet 00:00: MOUTH (FOUR) Medical TIMES Branch DAILY NEEDED (CRAMPS). METHOCARBAM 2023-0 Yes [id number] 500mg TAKE 1 [facility] 500 mg 2-13 TABLET BY ity o f tablet 00:00: MOUTH (FOUR) Medical TIMES Branch DAILY NEEDED (CRAMPS). METHOCARBAM 2023-0 Yes [id number] 500mg TAKE 1 [facility] 500 mg 2-13 TABLET BY ity o f tablet 00:00: MOUTH (FOUR) Medical TIMES Branch DAILY NEEDED (CRAMPS). METHOCARBAM 2023-0 Yes [id number] 500mg TAKE 1 [facility] 500 mg 2-13 TABLET BY ity o f tablet 00:00: MOUTH (FOUR) Medical TIMES Branch DAILY NEEDED (CRAMPS). METHOCARBAM 2023-0 Yes [id number] 500mg TAKE 1 [facility] 500 mg 2-13 TABLET BY ity o f tablet 00:00: MOUTH (FOUR) Medical TIMES Branch DAILY NEEDED (CRAMPS). METHOCARBAM 2023-0 Yes [id number] 500mg TAKE 1 [facility] 500 mg 2-13 TABLET BY ity o f tablet 00:00: MOUTH 4 [place] 00 (FOUR) Medical TIMES Branch DAILY NEEDED (CRAMPS). METHOCARBAM 2022-0 2022- No [id number] 500mg TAKE 1 [facility] 500 mg 2-13 -24 TABLET BY ity of tablet 00:00: 00:00 MOUTH 4 [place] 00 :00 (FOUR) Medical TIMES Branch DAILY NEEDED (CRAMPS). HYDROcodone 2022-0 Yes 2745 1{tbl} Take 1 [place] -acetaminop 1-17 tablet by it[facility] of hen ([place]) 00:00: mouth in [place] 10-325 mg 00 the Medical tablet morning Branch and 1 tablet at noon and 1 tablet in the evening. Indication s: chronic pain HYDROcodone 2022-0 Yes 2745 1{tbl} Take 1 [place] -acetaminop 1-17 tablet by ity of hen ([place]) 00:00: mouth in [place] 10-325 mg 00 the Medical tablet morning Branch and 1 tablet at noon and 1 tablet in the evening. Indication s: chronic pain HYDROcodone 2022-0 2022- No 2745 1{tbl} Take 1 [facility] -acetaminop 1-17 01-30 tablet by it y of hen ([place]) 00:00: 00:00 mouth in [place] 10-325 mg 00 :00 the Medical tablet morning Branch and 1 tablet at noon and 1 tablet in the evening. Indication s: chronic pain LISINOPRIL 2022-0 Yes [id number] TAKE 1 [facility] 10 mg 1-09 TABLET BY ity of tablet 00:00: MOUTH 00 DAILY Medical Branch LISINOPRIL 2023-0 Yes [id number] TAKE 1 [facility] 10 mg 1-09 TABLET BY ity of tablet 00:00: MOUTH 00 DAILY Medical Branch LISINOPRIL 2023-0 Yes [id number] TAKE 1 [facility] 10 mg 1-09 TABLET BY ity of tablet 00:00: MOUTH 00 DAILY Medical Branch LISINOPRIL 2023-0 Yes [id number] TAKE 1 [facility] 10 mg 1-09 TABLET BY ity of tablet 00:00: MOUTH [place] 00 DAILY Medical Branch LISINOPRIL 2023-0 Yes [id number] TAKE 1 [facility] 10 mg 1-09 TABLET BY ity of tablet 00:00: MOUTH [place] 00 DAILY Medical Branch LISINOPRIL 2023-0 Yes [id number] TAKE 1 [facility] 10 mg 1-09 TABLET BY ity of tablet 00:00: [facility] DAILY Medical Branch LISINOPRIL 2023-0 Yes [id number] TAKE 1 U nivers 10 mg 1-09 TABLET BY ity of tablet 00:00: [facility] DAILY Medical Branch LISINOPRIL 2023-0 Yes [id number] TAKE 1 [facility] nivers 10 mg 1-09 TABLET BY ity of tablet 00:00: [facility] DAILY Medical Branch LISINOPRIL 2023-0 Yes [id number] TAKE 1 U nivers 10 mg 1-09 TABLET BY ity of tablet 00:00: [facility] DAILY Medical Branch LISINOPRIL 2023-0 Yes [id number] TAKE 1 [facility] nivers 10 mg 1-09 TABLET BY ity of tablet 00:00: [facility] DAILY Medical Branch LISINOPRIL 2023-0 Yes [id number] TAKE 1 [facility] nivers 10 mg 1-09 TABLET BY ity of tablet 00:00: [facility] DAILY Medical Branch LISINOPRIL 2023-0 Yes [id number] TAKE 1 [facility] nivers 10 mg 1-09 TABLET BY ity of tablet 00:00: [facility] DAILY Medical Branch LISINOPRIL 2023-0 Yes [id number] TAKE 1 [facility] nivers 10 mg 1-09 TABLET BY ity of tablet 00:00: [facility] DAILY Medical Branch LISINOPRIL 2023-0 Yes [id number] TAKE 1 [facility] n[facility] 10 mg 1-09 TABLET BY ity of tablet 00:00: [facility] DAILY Medical Branch LISINOPRIL 2023-0 Yes [id number] TAKE 1 [facility] n[facility] 10 mg 1-09 TABLET BY ity of tablet 00:00: [facility] DAILY Medical Branch LISINOPRIL 2023-0 Yes [id number] TAKE 1 [facility] n[facility] 10 mg 1-09 TABLET BY ity of tablet 00:00: [facility] DAILY Medical Branch LISINOPRIL 2023-0 Yes [id number] TAKE 1 [facility] nivers 10 mg 1-09 TABLET BY ity of tablet 00:00: [facility] DAILY Medical Branch LISINOPRIL 2023-0 Yes [id number] TAKE 1 [facility] 10 mg 1-09 TABLET BY ity of tablet 00:00: [facility] DAILY Medical Branch LISINOPRIL 2023-0 Yes [id number] TAKE 1 [facility] n[facility] 10 mg 1-09 TABLET BY ity of tablet 00:00: [facility] DAILY Medical Branch LISINOPRIL 2023-0 Yes [id number] TAKE 1 [facility] nivers 10 mg 1-09 TABLET BY ity of tablet 00:00: [facility] DAILY Medical Branch LISINOPRIL 2023-0 Yes [id number] TAKE 1 [facility] 10 mg 1-09 TABLET BY ity of tablet 00:00: [facility] DAILY Medical Branch LISINOPRIL 2023-0 Yes [id number] TAKE 1 [facility] 10 mg 1-09 TABLET BY ity of tablet 00:00: [facility] DAILY Medical Branch LISINOPRIL 2023-0 Yes [id number] TAKE 1 [facility] 10 mg 1-09 TABLET BY ity of tablet 00:00: [facility] DAILY Medical Branch LISINOPRIL 2023-0 Yes [id number] TAKE 1 [facility] 10 mg 1-09 TABLET BY ity of tablet 00:00: [facility] DAILY Medical Branch LISINOPRIL 2023-0 Yes [id number] TAKE 1 [facility] 10 mg 1-09 TABLET BY ity of tablet 00:00: [facility] DAILY Medical Branch LISINOPRIL 2023-0 Yes [id number] TAKE 1 [facility] 10 mg 1-09 TABLET BY ity of tablet 00:00: [facility] DAILY Medical Branch LISINOPRIL 2023-0 Yes [id number] TAKE 1 [facility] 10 mg 1-09 TABLET BY ity of tablet 00:00: [facility] DAILY Medical Branch LISINOPRIL 2023-0 Yes [id number] TAKE 1 [facility] 10 mg 1-09 TABLET BY ity of tablet 00:00: [facility] DAILY Medical Branch LISINOPRIL 2023-0 Yes [id number] TAKE 1 [facility] 10 mg 1-09 TABLET BY ity of tablet 00:00: [facility] DAILY Medical Branch LISINOPRIL 2023-0 Yes [id number] TAKE 1 [facility] 10 mg 1-09 TABLET BY ity of tablet 00:00: [facility] DAILY Medical Branch LISINOPRIL 2023-0 Yes [id number] TAKE 1 [facility] 10 mg 1-09 TABLET BY ity of tablet 00:00: [facility] DAILY Medical Branch LISINOPRIL 2023-0 Yes [id number] TAKE 1 [facility] n[facility] 10 mg 1-09 TABLET BY ity of tablet 00:00: [facility] DAILY Medical Branch LISINOPRIL 2023-0 Yes [id number] TAKE 1 [facility] 10 mg 1-09 TABLET BY ity of tablet 00:00: [facility] DAILY Medical Branch LISINOPRIL 2023-0 Yes [id number] TAKE 1 [facility] 10 mg 1-09 TABLET BY ity of tablet 00:00: [facility] DAILY Medical Branch LISINOPRIL 2023-0 Yes [id number] TAKE 1 [facility] n[facility] 10 mg 1-09 TABLET BY ity of tablet 00:00: [facility] DAILY Medical Branch LISINOPRIL 2023-0 Yes [id number] TAKE 1 [facility] n[facility] 10 mg 1-09 TABLET BY ity of tablet 00:00: [facility] DAILY Medical Branch LISINOPRIL 2023-0 Yes [id number] TAKE 1 [facility] nivers 10 mg 1-09 TABLET BY ity of tablet 00:00: [facility] DAILY Medical Branch LISINOPRIL 2023-0 Yes [id number] TAKE 1 [facility] nivers 10 mg 1-09 TABLET BY ity of tablet 00:00: [facility] DAILY Medical Branch LISINOPRIL 2023-0 Yes [id number] TAKE 1 [facility] n[facility] 10 mg 1-09 TABLET BY ity of tablet 00:00: [facility] DAILY Medical Branch LISINOPRIL 2023-0 Yes [id number] TAKE 1 [facility] 10 mg 1-09 TABLET BY ity of tablet 00:00: [facility] DAILY Medical Branch LISINOPRIL 2023-0 Yes [id number] TAKE 1 [facility] n[facility] 10 mg 1-09 TABLET BY ity of tablet 00:00: [facility] DAILY Medical Branch LISINOPRIL 2023-0 Yes [id number] TAKE 1 [facility] nivers 10 mg 1-09 TABLET BY ity of tablet 00:00: [facility] DAILY Medical Branch LISINOPRIL 2023-0 Yes [id number] TAKE 1 [facility] n[facility] 10 mg 1-09 TABLET BY ity of tablet 00:00: [facility] DAILY Medical Branch LISINOPRIL 2023-0 Yes [id number] TAKE 1 [facility] nivers 10 mg 1-09 TABLET BY ity of tablet 00:00: [facility] DAILY Medical Branch LISINOPRIL 2023-0 Yes [id number] TAKE 1 [facility] nivers 10 mg 1-09 TABLET BY ity of tablet 00:00: MOUTH [place] 00 DAILY Medical Branch LISINOPRIL 2023-0 Yes [id number] TAKE 1 [facility] 10 mg 1-09 TABLET BY ity of tablet 00:00: MOUTH [place] DAILY Medical Branch LISINOPRIL 2023-0 Yes [id number] TAKE 1 [facility] 10 mg 1-09 TABLET BY ity of tablet 00:00: MOUTH [place] DAILY Medical Branch LISINOPRIL 2023-0 Yes [id number] TAKE 1 [facility] 10 mg 1-09 TABLET BY ity of tablet 00:00: MOUTH [place] DAILY Medical Branch LISINOPRIL 2023-0 Yes [id number] TAKE 1 [facility] 10 mg 1-09 TABLET BY ity of tablet 00:00: MOUTH [place] DAILY Medical Branch LISINOPRIL 2023-0 Yes [id number] TAKE 1 [facility] 10 mg 1-09 TABLET BY ity of tablet 00:00: [facility] DAILY Medical Branch LISINOPRIL 2023-0 Yes [id number] TAKE 1 [facility] n[facility] 10 mg 1-09 TABLET BY ity of tablet 00:00: MOUTH [place] DAILY Medical Branch LISINOPRIL 2023-0 Yes [id number] TAKE 1 [facility] 10 mg 1-09 TABLET BY ity of tablet 00:00: [facility] DAILY Medical Branch LISINOPRIL 2023-0 Yes [id number] TAKE 1 U nivers 10 mg 1-09 TABLET BY ity of tablet 00:00: [facility] DAILY Medical Branch LISINOPRIL 2023-0 Yes [id number] TAKE 1 U nivers 10 mg 1-09 TABLET BY ity of tablet 00:00: MOUTH [place] DAILY Medical Branch LISINOPRIL 2023-0 Yes [id number] TAKE 1 [facility] 10 mg 1-09 TABLET BY ity of tablet 00:00: MOUTH [place] DAILY Medical Branch amLODIPine 2-1 Yes [id number] 10mg Take 1 [facility] 10 mg 2-29 tablet by ity of tablet 00:00: mouth in [place] 00 the Medical morning. Branch amLODIPine 2021- Yes [id number] 10mg Take 1 [facility] 10 mg 2-29 tablet by ity of tablet 00:00: mouth in [place] 00 the Medical morning. Branch amLODIPine 2021- Yes [id number] 10mg Take 1 [facility] 10 mg 2-29 tablet by ity of tablet 00:00: mouth in [place] the Medical morning. Branch amLODIPine 2021-07 Yes [id number] 10mg Take 1 [facility] 10 mg 2-29 tablet by ity of tablet 00:00: mouth in [place] the Medical morning. Branch amLODIPine 2021- Yes [id number] 10mg Take 1 [facility] 10 mg 2-29 tablet by ity of tablet 00:00: mouth in [place] the Medical morning. Branch amLODIPine 2021-07 Yes [id number] 10mg Take 1 [facility] 10 mg 2-29 tablet by ity of tablet 00:00: mouth in [place] the Medical morning. Branch amLODIPine 2021-07 Yes [id number] 10mg Take 1 [facility] 10 mg 2-29 tablet by ity of tablet 00:00: mouth in [place] the Medical morning. Branch amLODIPine 2021- Yes [id number] 10mg Take 1 [facility] 10 mg 2-29 tablet by ity of tablet 00:00: mouth in [place] the Medical morning. Branch amLODIPine 2021-07 Yes [id number] 10mg Take 1 [facility] 10 mg 2-29 tablet by ity of tablet 00:00: mouth in [place] the Medical morning. Branch amLODIPine 2021-07 Yes [id number] 10mg Take 1 [facility] 10 mg 2-29 tablet by ity of tablet 00:00: mouth in [place] the Medical morning. Branch amLODIPine 2021-07 Yes [id number] 10mg Take 1 [facility] 10 mg 2-29 tablet by ity of tablet 00:00: mouth in [place] the Medical morning. Branch amLODIPine 2021- Yes [id number] 10mg Take 1 [facility] 10 mg 2-29 tablet by ity of tablet 00:00: mouth in [place] the Medical morning. Branch amLODIPine 2021- Yes [id number] 10mg Take 1 [facility] 10 mg 2-29 tablet by ity of tablet 00:00: mouth in [place] the Medical morning. Branch amLODIPine 2021- Yes [id number] 10mg Take 1 [facility] 10 mg 2-29 tablet by ity of tablet 00:00: mouth in [place] the Medical morning. Branch amLODIPine 2021- Yes [id number] 10mg Take 1 [facility] 10 mg 2-29 tablet by ity of tablet 00:00: mouth in [place] 00 the Medical morning. Branch amLODIPine 2021- Yes [id number] 10mg Take 1 [facility] 10 mg 2-29 tablet by ity of tablet 00:00: mouth in [place] the Medical morning. Branch amLODIPine 2021- Yes [id number] 10mg Take 1 [facility] 10 mg 2-29 tablet by ity of tablet 00:00: mouth in [place] the Medical morning. Branch amLODIPine 2021- Yes [id number] 10mg Take 1 [facility] 10 mg 2-29 tablet by ity of tablet 00:00: mouth in [place] the Medical morning. Branch amLODIPine 2021- Yes [id number] 10mg Take 1 [facility] 10 mg 2-29 tablet by ity of tablet 00:00: mouth in [place] the Medical morning. Branch amLODIPine 2021- Yes [id number] 10mg Take 1 [facility] 10 mg 2-29 tablet by ity of tablet 00:00: mouth in [place] the Medical morning. Branch amLODIPine 2021- Yes [id number] 10mg Take 1 [facility] 10 mg 2-29 tablet by ity of tablet 00:00: mouth in [place] the Medical morning. Branch amLODIPine 2021- Yes [id number] 10mg Take 1 [facility] 10 mg 2-29 tablet by ity of tablet 00:00: mouth in [place] the Medical morning. Branch amLODIPine 2021- Yes [id number] 10mg Take 1 [facility] 10 mg 2-29 tablet by ity of tablet 00:00: mouth in [place] the Medical morning. Branch amLODIPine 2021- Yes [id number] 10mg Take 1 [facility] 10 mg 2-29 tablet by ity of tablet 00:00: mouth in [place] the Medical morning. Branch amLODIPine 2021- Yes [id number] 10mg Take 1 [facility] 10 mg 2-29 tablet by ity of tablet 00:00: mouth in [place] the Medical morning. Branch amLODIPine 2021-1 Yes [id number] 10mg Take 1 [facility] 10 mg 2-29 tablet by ity of tablet 00:00: mouth in [place] 00 the Medical morning. Branch amLODIPine 2021- Yes [id number] 10mg Take 1 [facility] 10 mg 2-29 tablet by [facility] tablet 00:00: mouth in [place] 00 the Medical morning. Branch amLODIPine 2021-07 Yes [id number] 10mg Take 1 [facility] 10 mg 2-29 tablet by [facility] tablet 00:00: mouth in [place] the Medical morning. Branch amLODIPine 2021-07 Yes [id number] 10mg Take 1 [facility] 10 mg 2-29 tablet by [facility] tablet 00:00: mouth in [place] the Medical morning. Branch amLODIPine 2021-07 Yes [id number] 10mg Take 1 [facility] 10 mg 2-29 tablet by [facility] tablet 00:00: mouth in [place] the Medical morning. Branch amLODIPine 2021-07 Yes [id number] 10mg Take 1 [facility] 10 mg 2-29 tablet by [facility] tablet 00:00: mouth in [place] the Medical morning. Branch amLODIPine 2021-07 Yes [id number] 10mg Take 1 [facility] 10 mg 2-29 tablet by [facility] tablet 00:00: mouth in [place] the Medical morning. Branch amLODIPine 2021-07 Yes [id number] 10mg Take 1 [facility] 10 mg 2-29 tablet by [facility] tablet 00:00: mouth in [place] the Medical morning. Branch amLODIPine 2021-07 Yes [id number] 10mg Take 1 [facility] 10 mg 2-29 tablet by [facility] tablet 00:00: mouth in [place] the Medical morning. Branch amLODIPine 2021-07 Yes [id number] 10mg Take 1 [facility] 10 mg 2-29 tablet by [facility] tablet 00:00: mouth in [place] the Medical morning. Branch amLODIPine 2021-07 Yes [id number] 10mg Take 1 [facility] 10 mg 2-29 tablet by [facility] tablet 00:00: mouth in [place] the Medical morning. Branch amLODIPine 2021-07 Yes [id number] 10mg Take 1 [facility] 10 mg 2-29 tablet by [facility] tablet 00:00: mouth in [place] the Medical morning. Branch amLODIPine 2021-07 Yes [id number] 10mg Take 1 [facility] 10 mg 2-29 tablet by [facility] tablet 00:00: mouth in [place] the Medical morning. Branch amLODIPine 2021- Yes [id number] 10mg Take 1 [facility] 10 mg 2-29 tablet by [facility] tablet 00:00: mouth in [place] the Medical morning. Branch amLODIPine 2021-07 Yes [id number] 10mg Take 1 [facility] 10 mg 2-29 tablet by [facility] tablet 00:00: mouth in [place] 00 the Medical morning. Branch amLODIPine 2021-07 Yes [id number] 10mg Take 1 [facility] 10 mg 2-29 tablet by [facility] tablet 00:00: mouth in [place] 00 the Medical morning. Branch amLODIPine 2021-07 Yes [id number] 10mg Take 1 [facility] 10 mg 2-29 tablet by [facility] tablet 00:00: mouth in [place] the Medical morning. Branch amLODIPine 2021-07 Yes [id number] 10mg Take 1 [facility] 10 mg 2-29 tablet by [facility] tablet 00:00: mouth in [place] 00 the Medical morning. Branch amLODIPine 2021-07 Yes [id number] 10mg Take 1 [facility] 10 mg 2-29 tablet by [facility] tablet 00:00: mouth in [place] 00 the Medical morning. Branch amLODIPine 2021-07 Yes [id number] 10mg Take 1 [facility] 10 mg 2-29 tablet by [facility] tablet 00:00: mouth in [place] the Medical morning. Branch amLODIPine 2021-07 Yes [id number] 10mg Take 1 [facility] 10 mg 2-29 tablet by [facility] tablet 00:00: mouth in [place] the Medical morning. Branch amLODIPine 2021-07 Yes [id number] 10mg Take 1 [facility] 10 mg 2-29 tablet by [facility] tablet 00:00: mouth in [place] the Medical morning. Branch amLODIPine 2021-07 Yes [id number] 10mg Take 1 [facility] 10 mg 2-29 tablet by [facility] tablet 00:00: mouth in [place] the Medical morning. Branch amLODIPine 2021-07 Yes [id number] 10mg Take 1 [facility] 10 mg 2-29 tablet by [facility] tablet 00:00: mouth in [place] 00 the Medical morning. Branch amLODIPine 2021- Yes [id number] 10mg Take 1 [facility] 10 mg 2-29 tablet by [facility] tablet 00:00: mouth in [place] 00 the Medical morning. Branch amLODIPine 2021- Yes [id number] 10mg Take 1 [facility] 10 mg 2-29 tablet by [facility] tablet 00:00: mouth in [place] 00 the Medical morning. Branch amLODIPine 2021 Yes [id number] 10mg Take 1 [facility] 10 mg 2-29 tablet by [facility] tablet 00:00: mouth in [place] the morning. Branch amLODIPine 2021-07 Yes [id number] 10mg Take 1 [facility] 10 mg 2-29 tablet by [facility] tablet 00:00: mouth in [place] the morning. Branch amLODIPine 2021-07 Yes [id number] 10mg Take 1 [facility] 10 mg 2-29 tablet by [facility] tablet 00:00: mouth in [place] the morning. Branch amLODIPine 2021-07 Yes [id number] 10mg Take 1 [facility] 10 mg 2-29 tablet by [facility] tablet 00:00: mouth in [place] the morning. Branch amLODIPine 2021-07 Yes [id number] 10mg Take 1 [facility] 10 mg 2-29 tablet by [facility] tablet 00:00: mouth in [place] the morning. Branch HYDROcodone 2021-07 Yes 2745 1{tbl} Take 1 [facility] [place] -acetaminop 2-18 tablet by [facility] ([facility]CO) 00:00: mouth in [place] 10-325 mg 00 the Medical tablet morning Branch and 1 tablet at noon and 1 tablet in the evening. Indication s: chronic pain HYDROcodone 2021-07 Yes 2745 1{tbl} Take 1 [facility] [place] -acetaminop 2-18 tablet by [facility] ([facility]CO) 00:00: mouth in [place] 10-325 mg 00 the Medical tablet morning Branch and 1 tablet at noon and 1 tablet in the evening. Indication s: chronic pain HYDROcodone 2021-07 Yes 2745 1{tbl} Take 1 [facility] [place] -acetaminop 2-18 tablet by [facility] ([facility]CO) 00:00: mouth in [place] 10-325 mg 00 the Medical tablet morning Branch and 1 tablet at noon and 1 tablet in the evening. Indication s: chronic pain HYDROcodone 2021-07 Yes 2745 1{tbl} Take 1 [facility] [place] -acetaminop 2-18 tablet by [facility] ([facility]CO) 00:00: mouth in [place] 10-325 mg 00 the Medical tablet morning Branch and 1 tablet at noon and 1 tablet in the evening. Indication s: chronic pain HYDROcodone 2021-07 Yes 2745 1{tbl} Take 1 [facility] [place] -acetaminop 2-18 tablet by [facility] ([facility]CO) 00:00: mouth in [place] 10-325 mg 00 the Medical tablet morning Branch and 1 tablet at noon and 1 tablet in the evening. Indication s: chronic pain HYDROcodone 2021-07 Yes 2745 1{tbl} Take 1 [facility] [place] -acetaminop 2-18 tablet by [facility] ([facility]CO) 00:00: mouth in [place] 10-325 mg 00 the Medical tablet morning Branch and 1 tablet at noon and 1 tablet in the evening. Indication s: chronic pain HYDROcodone 2021-07 Yes 2745 1{tbl} Take 1 [facility] [place] -acetaminop 2-18 tablet by [facility] ([facility]CO) 00:00: mouth in [place] 10-325 mg 00 the Medical tablet morning Branch and 1 tablet at noon and 1 tablet in the evening. Indication s: chronic pain HYDROcodone 2021-07 Yes 2745 1{tbl} Take 1 [facility] [place] -acetaminop 2-18 tablet by [facility] ([facility]CO) 00:00: mouth in [place] 10-325 mg 00 the Medical tablet morning Branch and 1 tablet at noon and 1 tablet in the evening. Indication s: chronic pain HYDROcodone 2021-07 Yes 2745 1{tbl} Take 1 [facility] [place] -acetaminop 2-18 tablet by [facility] ([facility]CO) 00:00: mouth in [place] 10-325 mg 00 the Medical tablet morning Branch and 1 tablet at noon and 1 tablet in the evening. Indication s: chronic pain HYDROcodone 2021-07- No 2745 1{tbl} Take 1 [facility] -acetaminop 2-18 01-13 tablet by [facility] ([facility]CO) 00:00: 00:00 mouth in [place] 10-325 mg 00 :00 the Medical tablet morning Branch and 1 tablet at noon and 1 tablet in the evening. Indication s: chronic pain levothyroxi 2021-07 Yes [id number] 100ug Take 1 [facility] 100 mcg 2-16 tablet by [facility] tablet 00:00: mouth [place] 00 every Medical morning. Branch levothyroxi 2021-07 Yes [id number] 100ug Take 1 [facility] 100 mcg 2-16 tablet by [facility] tablet 00:00: mouth [place] 00 every Medical morning. Branch levothyroxi 2021-07 Yes [id number] 100ug Take 1 [facility] 100 mcg 2-16 tablet by [facility] tablet 00:00: mouth [place] 00 every Medical morning. Branch levothyroxi 2021-07 Yes [id number] 100ug Take 1 [facility] 100 mcg 2-16 tablet by [facility] tablet 00:00: mouth [place] 00 every Medical morning. Branch levothyroxi 2021-07 Yes [id number] 100ug Take 1 [facility] 100 mcg 2-16 tablet by [facility] tablet 00:00: mouth [place] 00 every Medical morning. Branch levothyroxi 2021-07 Yes [id number] 100ug Take 1 [facility] 100 mcg 2-16 tablet by [facility] tablet 00:00: mouth [place] 00 every Medical morning. Branch levothyroxi 2021-07 Yes [id number] 100ug Take 1 [facility] 100 mcg 2-16 tablet by [facility] tablet 00:00: mouth [place] 00 every Medical morning. Branch levothyroxi 2021-07 Yes [id number] 100ug Take 1 [facility] 100 mcg 2-16 tablet by [facility] tablet 00:00: mouth [place] 00 every Medical morning. Branch levothyroxi 2021-07 Yes [id number] 100ug Take 1 [facility] 100 mcg 2-16 tablet by [facility] tablet 00:00: mouth [place] 00 every Medical morning. Branch levothyroxi 2021-07 Yes [id number] 100ug Take 1 [facility] 100 mcg 2-16 tablet by [facility] tablet 00:00: mouth [place] 00 every Medical morning. Branch levothyroxi 2021-07 Yes [id number] 100ug Take 1 [facility] 100 mcg 2-16 tablet by [facility] tablet 00:00: mouth [place] 00 every Medical morning. Branch levothyroxi 2021-07 Yes [id number] 100ug Take 1 [facility] 100 mcg 2-16 tablet by [facility] tablet 00:00: mouth [place] 00 every Medical morning. Branch levothyroxi 2021-07 Yes [id number] 100ug Take 1 [facility] 100 mcg 2-16 tablet by [facility] tablet 00:00: mouth [place] 00 every Medical morning. Branch levothyroxi 2021-07 Yes [id number] 100ug Take 1 [facility] 100 mcg 2-16 tablet by [facility] tablet 00:00: mouth [place] 00 every Medical morning. Branch levothyroxi 2021-07 Yes [id number] 100ug Take 1 [facility] 100 mcg 2-16 tablet by [facility] tablet 00:00: mouth [place] 00 every Medical morning. Branch levothyroxi 2021-07 Yes [id number] 100ug Take 1 [facility] 100 mcg 2-16 tablet by [facility] tablet 00:00: mouth [place] 00 every Medical morning. Branch levothyroxi 2021-07 Yes [id number] 100ug Take 1 [facility] 100 mcg 2-16 tablet by [facility] tablet 00:00: mouth [place] 00 every Medical morning. Branch levothyroxi 2021-07 Yes [id number] 100ug Take 1 [facility] 100 mcg 2-16 tablet by [facility] tablet 00:00: mouth [place] 00 every Medical morning. Branch levothyroxi 2021-07 Yes [id number] 100ug Take 1 [facility] 100 mcg 2-16 tablet by [facility] tablet 00:00: mouth [place] 00 every Medical morning. Branch levothyroxi 2021-07 Yes [id number] 100ug Take 1 [facility] 100 mcg 2-16 tablet by [facility] tablet 00:00: mouth [place] 00 every Medical morning. Branch levothyroxi 2021-07 Yes [id number] 100ug Take 1 [facility] 100 mcg 2-16 tablet by [facility] tablet 00:00: mouth [place] 00 every Medical morning. Branch levothyroxi 2021-07 Yes [id number] 100ug Take 1 [facility] 100 mcg 2-16 tablet by [facility] tablet 00:00: mouth [place] 00 every Medical morning. Branch levothyroxi 2021-07 Yes [id number] 100ug Take 1 [facility] 100 mcg 2-16 tablet by [facility] tablet 00:00: mouth [place] 00 every Medical morning. Branch levothyroxi 2021-07 Yes [id number] 100ug Take 1 [facility] 100 mcg 2-16 tablet by [facility] tablet 00:00: mouth [place] 00 every Medical morning. Branch levothyroxi 2021-07 Yes [id number] 100ug Take 1 [facility] 100 mcg 2-16 tablet by [facility] tablet 00:00: mouth [place] 00 every Medical morning. Branch levothyroxi 2021-07 Yes [id number] 100ug Take 1 [facility] 100 mcg 2-16 tablet by [facility] tablet 00:00: mouth [place] 00 every Medical morning. Branch levothyroxi 2021-07 Yes [id number] 100ug Take 1 [facility] 100 mcg 2-16 tablet by [facility] tablet 00:00: mouth [place] 00 every Medical morning. Branch levothyroxi 2021-07 Yes [id number] 100ug Take 1 [facility] 100 mcg 2-16 tablet by [facility] tablet 00:00: mouth [place] 00 every Medical morning. Branch levothyroxi 2021-07 Yes [id number] 100ug Take 1 [facility] 100 mcg 2-16 tablet by [facility] tablet 00:00: mouth [place] 00 every Medical morning. Branch levothyroxi 2021-07 Yes [id number] 100ug Take 1 [facility] 100 mcg 2-16 tablet by [facility] tablet 00:00: mouth [place] 00 every Medical morning. Branch levothyroxi 2021-07 Yes [id number] 100ug Take 1 [facility] 100 mcg 2-16 tablet by [facility] tablet 00:00: mouth [place] 00 every Medical morning. Branch levothyroxi 2021-07 Yes [id number] 100ug Take 1 [facility] 100 mcg 2-16 tablet by [facility] tablet 00:00: mouth [place] 00 every Medical morning. Branch levothyroxi 2021-07 Yes [id number] 100ug Take 1 [facility] 100 mcg 2-16 tablet by [facility] tablet 00:00: mouth [place] 00 every Medical morning. Branch levothyroxi 2021-07 Yes [id number] 100ug Take 1 [facility] 100 mcg 2-16 tablet by [facility] tablet 00:00: mouth [place] 00 every Medical morning. Branch levothyroxi 2021-07 Yes [id number] 100ug Take 1 [facility] 100 mcg 2-16 tablet by [facility] tablet 00:00: mouth [place] 00 every Medical morning. Branch levothyroxi 2021-07 Yes [id number] 100ug Take 1 [facility] 100 mcg 2-16 tablet by [facility] tablet 00:00: mouth [place] 00 every Medical morning. Branch levothyroxi 2021-07 Yes [id number] 100ug Take 1 [facility] 100 mcg 2-16 tablet by [facility] tablet 00:00: mouth [place] 00 every Medical morning. Branch levothyroxi 2021-07 Yes [id number] 100ug Take 1 [facility] 100 mcg 2-16 tablet by [facility] tablet 00:00: mouth [place] 00 every Medical morning. Branch levothyroxi 2021-07 Yes [id number] 100ug Take 1 [facility] 100 mcg 2-16 tablet by [facility] tablet 00:00: mouth [place] 00 every Medical morning. Branch levothyroxi 2021-07 Yes [id number] 100ug Take 1 [facility] 100 mcg 2-16 tablet by [facility] tablet 00:00: mouth [place] 00 every Medical morning. Branch levothyroxi 2021-07 Yes [id number] 100ug Take 1 [facility] 100 mcg 2-16 tablet by [facility] tablet 00:00: mouth [place] 00 every Medical morning. Branch levothyroxi 2021-07 Yes [id number] 100ug Take 1 [facility] 100 mcg 2-16 tablet by [facility] tablet 00:00: mouth [place] 00 every Medical morning. Branch levothyroxi 2021-07 Yes [id number] 100ug Take 1 [facility] 100 mcg 2-16 tablet by [facility] tablet 00:00: mouth [place] 00 every Medical morning. Branch levothyroxi 2021-07 Yes [id number] 100ug Take 1 [facility] 100 mcg 2-16 tablet by [facility] tablet 00:00: mouth [place] 00 every Medical morning. Branch levothyroxi 2021-07 Yes [id number] 100ug Take 1 [facility] 100 mcg 2-16 tablet by [facility] tablet 00:00: mouth [place] 00 every Medical morning. Branch levothyroxi 2021-07 Yes [id number] 100ug Take 1 [facility] 100 mcg 2-16 tablet by [facility] tablet 00:00: mouth [place] 00 every Medical morning. Branch levothyroxi 2021-07 Yes [id number] 100ug Take 1 [facility] 100 mcg 2-16 tablet by [facility] tablet 00:00: mouth [place] 00 every Medical morning. Branch levothyroxi 2021-07 Yes [id number] 100ug Take 1 [facility] 100 mcg 2-16 tablet by [facility] tablet 00:00: mouth [place] 00 every Medical morning. Branch levothyroxi 2021-07 Yes [id number] 100ug Take 1 [facility] 100 mcg 2-16 tablet by [facility] tablet 00:00: mouth [place] 00 every Medical morning. Branch levothyroxi 2021-07 Yes [id number] 100ug Take 1 [facility] 100 mcg 2-16 tablet by [facility] tablet 00:00: mouth [place] 00 every Medical morning. Branch levothyroxi 2021-07 Yes [id number] 100ug Take 1 [facility] 100 mcg 2-16 tablet by [facility] tablet 00:00: mouth [place] 00 every Medical morning. Branch levothyroxi 2021-07 Yes [id number] 100ug Take 1 [facility] 100 mcg 2-16 tablet by [facility] tablet 00:00: mouth [place] 00 every Medical morning. Branch levothyroxi 2021-07 Yes [id number] 100ug Take 1 [facility] 100 mcg 2-16 tablet by [facility] tablet 00:00: mouth [place] 00 every Medical morning. Branch levothyroxi 2021-07 Yes [id number] 100ug Take 1 [facility] 100 mcg 2-16 tablet by [facility] tablet 00:00: mouth [place] 00 every Medical morning. Branch levothyroxi 2021-07 Yes [id number] 100ug Take 1 [facility] 100 mcg 2-16 tablet by [facility] tablet 00:00: mouth [place] 00 every Medical morning. [place] levothyroxi 2021-07 Yes [id number] 100ug Take 1 [facility] ne 100 mcg 2-16 tablet by [facility] tablet 00:00: mouth [place] 00 every Medical morning. Branch levothyroxi 2021-07 Yes [id number] 100ug Take 1 [facility] 100 mcg 2-16 tablet by [facility] tablet 00:00: mouth [place] 00 every Medical morning. Branch levothyroxi 2021-07 Yes [id number] 100ug Take 1 [facility] 100 mcg 2-16 tablet by [facility] tablet 00:00: mouth [place] 00 every Medical morning. [place] levothyroxi 2021-07 Yes [id number] 100ug Take 1 [facility] 100 mcg 2-16 tablet by [facility] tablet 00:00: mouth [place] 00 every Medical morning. [place] levothyroxi 2021-07 Yes [id number] 100ug Take 1 [facility] 100 mcg 2-16 tablet by [facility] tablet 00:00: mouth [place] 00 every Medical morning. [place] methocarbam 2021-07 Yes [id number] 500mg Take 1 [facility] oL 500 mg 2-12 tablet by [facility] o f tablet 00:00: mouth 4 [place] 00 (four) Medical times Branch daily as needed (cramps). methocarbam 2021-07 Yes [id number] 500mg Take 1 [facility] oL 500 mg 2-12 tablet by [facility] o f tablet 00:00: mouth 4 [place] 00 (four) Medical times Branch daily as needed (cramps). methocarbam 2021-07 Yes [id number] 500mg Take 1 [facility] oL 500 mg 2-12 tablet by [facility] o f tablet 00:00: mouth (four) Medical times Branch daily as needed (cramps). methocarbam 2021-07 Yes [id number] 500mg Take 1 [facility] oL 500 mg 2-12 tablet by [facility] f tablet 00:00: mouth (four) Medical times Branch daily as needed (cramps). methocarbam 2021-07 Yes [id number] 500mg Take 1 [facility] oL 500 mg 2-12 tablet by [facility] o f tablet 00:00: mouth (four) Medical times Branch daily as needed (cramps). methocarbam 2021-07 Yes [id number] 500mg Take 1 [facility] oL 500 mg 2-12 tablet by [facility] o f tablet 00:00: mouth (four) Medical times Branch daily as needed (cramps). methocarbam 2021-07 Yes [id number] 500mg Take 1 [facility] oL 500 mg 2-12 tablet by [facility] o f tablet 00:00: mouth (four) Medical times Branch daily as needed (cramps). methocarbam 2021-07 Yes [id number] 500mg Take 1 [facility] oL 500 mg 2-12 tablet by [facility] o f tablet 00:00: mouth (four) Medical times Branch daily as needed (cramps). methocarbam 2021-07 Yes [id number] 500mg Take 1 [facility] oL 500 mg 2-12 tablet by [facility] o f tablet 00:00: mouth (four) Medical times Branch daily as needed (cramps). methocarbam 2021-07 Yes [id number] 500mg Take 1 [facility] oL 500 mg 2-12 tablet by [facility] o f tablet 00:00: mouth (four) Medical times Branch daily as needed (cramps). methocarbam 2021-07 No [id number] 500mg Take 1 [facility] oL 500 mg 2-12 02-13 tablet by [facility] tablet 00:00: 00:00 mouth 4 00 :00 (four) Medical times Branch daily as needed (cramps). methocarbam 2021-07 Yes [id number] 500mg Take 1 [facility] oL 500 mg 2-02 tablet by [facility] o f tablet 00:00: mouth 4 [place] 00 (four) Medical times Branch daily as needed (cramps). methocarbam 2021-07- No [id number] 500mg Take 1 [facility] oL 500 mg 2-02 12-09 tablet by [facility] tablet 00:00: 00:00 mouth 4 [place] 00 :00 (four) Medical times Branch daily as needed (cramps). HYDROcodone 2021-07 Yes 2745 1{tbl} Take 1 [facility] [place] -acetaminop 1-18 tablet by [facility] ([facility]) 00:00: mouth in [place] 10-325 mg 00 the Medical tablet morning Branch and 1 tablet at noon and 1 tablet in the evening. Indication s: chronic pain HYDROcodone 2021-07- No 2745 1{tbl} Take 1 [facility] -acetaminop 1-18 11-22 tablet by [facility] ([facility]) 00:00: 00:00 mouth in [place] 10-325 mg 00 :00 the Medical tablet morning Branch and 1 tablet at noon and 1 tablet in the evening. Indication s: chronic pain apremilast 2021-07 Yes [id number] 30mg Take 1 [facility] (OTEZLA) 30 0-31 tablet by [facility] mg tablet 00:00: mouth [place] 00 the Medical morning Branch and 1 tablet in the evening. apremilast 2021-07 Yes [id number] 30mg Take 1 [facility] (OTEZLA) 30 0-31 tablet by [facility] mg tablet 00:00: mouth [place] 00 the Medical morning Branch and 1 tablet in the evening. apremilast 2021-07 Yes [id number] 30mg Take 1 [facility] (OTEZLA) 30 0-31 tablet by [facility] mg tablet 00:00: mouth [place] 00 the Medical morning Branch and 1 tablet in the evening. apremilast 2021-07 Yes [id number] 30mg Take 1 [facility] (OTEZLA) 30 0-31 tablet by [facility] mg tablet 00:00: mouth [place] 00 the Medical morning Branch and 1 tablet in the evening. apremilast 2021-07 Yes [id number] 30mg Take 1 [facility] (OTEZLA) 30 0-31 tablet by [facility] mg tablet 00:00: mouth [place] 00 the Medical morning Branch and 1 tablet in the evening. apremilast 2021-07 Yes [id number] 30mg Take 1 [facility] (OTEZLA) 30 0-31 tablet by [facility] mg tablet 00:00: mouth [place] 00 the Medical morning Branch and 1 tablet in the evening. apremilast 2021-07 Yes [id number] 30mg Take 1 [facility] (OTEZLA) 30 0-31 tablet by [facility] mg tablet 00:00: mouth [place] 00 the Medical morning Branch and 1 tablet in the evening. apremilast 2021-07 Yes [id number] 30mg Take 1 [facility] (OTEZLA) 30 0-31 tablet by [facility] mg tablet 00:00: mouth [place] 00 the Medical morning Branch and 1 tablet in the evening. apremilast 2021-07 Yes [id number] 30mg Take 1 [facility] (OTEZLA) 30 0-31 tablet by [facility] mg tablet 00:00: mouth [place] 00 the Medical morning Branch and 1 tablet in the evening. apremilast 2021-07 Yes [id number] 30mg Take 1 [facility] (OTEZLA) 30 0-31 tablet by [facility] mg tablet 00:00: mouth [place] 00 the Medical morning Branch and 1 tablet in the evening. apremilast 2021-07 Yes [id number] 30mg Take 1 [facility] (OTEZLA) 30 0-31 tablet by [facility] mg tablet 00:00: mouth [place] 00 the Medical morning Branch and 1 tablet in the evening. apremilast 2021-07 Yes [id number] 30mg Take 1 [facility] (OTEZLA) 30 0-31 tablet by [facility] mg tablet 00:00: mouth [place] 00 the Medical morning Branch and 1 tablet in the evening. apremilast 2021-07 Yes [id number] 30mg Take 1 [facility] (OTEZLA) 30 0-31 tablet by [facility] mg tablet 00:00: mouth [place] 00 the Medical morning Branch and 1 tablet in the evening. apremilast 2021-07 Yes [id number] 30mg Take 1 [facility] (OTEZLA) 30 0-31 tablet by [facility] mg tablet 00:00: mouth [place] 00 the Medical morning Branch and 1 tablet in the evening. apremilast 2021-07 Yes [id number] 30mg Take 1 [facility] (OTEZLA) 30 0-31 tablet by [facility] mg tablet 00:00: mouth [place] 00 the Medical morning Branch and 1 tablet in the evening. apremilast 2021-07 Yes [id number] 30mg Take 1 [facility] (OTEZLA) 30 0-31 tablet by [facility] mg tablet 00:00: mouth [place] 00 the Medical morning Branch and 1 tablet in the evening. apremilast 2021-07 Yes [id number] 30mg Take 1 [facility] (OTEZLA) 30 0-31 tablet by [facility] mg tablet 00:00: mouth [place] 00 the Medical morning Branch and 1 tablet in the evening. apremilast 2021-07 Yes [id number] 30mg Take 1 [facility] (OTEZLA) 30 0-31 tablet by [facility] mg tablet 00:00: mouth [place] 00 the Medical morning Branch and 1 tablet in the evening. apremilast 2021-07 Yes [id number] 30mg Take 1 [facility] (OTEZLA) 30 0-31 tablet by [facility] mg tablet 00:00: mouth [place] 00 the Medical morning Branch and 1 tablet in the evening. apremilast 2021-07 Yes [id number] 30mg Take 1 [facility] (OTEZLA) 30 0-31 tablet by [facility] mg tablet 00:00: mouth [place] 00 the Medical morning Branch and 1 tablet in the evening. apremilast 2021-07 Yes [id number] 30mg Take 1 [facility] (OTEZLA) 30 0-31 tablet by [facility] mg tablet 00:00: mouth [place] 00 the Medical morning Branch and 1 tablet in the evening. apremilast 2021-07 Yes [id number] 30mg Take 1 [facility] (OTEZLA) 30 0-31 tablet by [facility] mg tablet 00:00: mouth [place] 00 the Medical morning Branch and 1 tablet in the evening. apremilast 2021-07- No [id number] 30mg Take 1 [facility] (OTEZLA) 30 0-31 02-23 tablet by [facility] y of mg tablet 00:00: 00:00 mouth in [place] 00 :00 the Medical morning Branch and 1 tablet in the evening. apremilast 2021-07- No [id number] 30mg Take 1 [facility] (OTEZLA) 30 0-31 02-23 tablet by [facility] y of mg tablet 00:00: 00:00 mouth in [place] 00 :00 the Medical morning Branch and 1 tablet in the evening. apremilast 2021-07- No [id number] 30mg Take 1 [facility] (OTEZLA) 30 0-31 02-23 tablet by [facility] y of mg tablet 00:00: 00:00 mouth in [place] 00 :00 the Medical morning Branch and 1 tablet in the evening. celecoxib 2021- Yes [id number] 200mg Take 1 [facility] 200 mg 0-21 capsule by [facility] of capsule 00:00: mouth in [place] 00 the Medical morning. Branch celecoxib 2021- Yes [id number] 200mg Take 1 [facility] 200 mg 0-21 capsule by [facility] of capsule 00:00: mouth in [place] 00 the Medical morning. Branch celecoxib 2021- Yes [id number] 200mg Take 1 [facility] 200 mg 0-21 capsule by [facility] of capsule 00:00: mouth in [place] 00 the Medical morning. Branch celecoxib 2021- Yes [id number] 200mg Take 1 [facility] 200 mg 0-21 capsule by [facility] of capsule 00:00: mouth in [place] 00 the Medical morning. Branch celecoxib 2021- Yes [id number] 200mg Take 1 [facility] 200 mg 0-21 capsule by [facility] of capsule 00:00: mouth in [place] 00 the Medical morning. Branch celecoxib 2021- Yes [id number] 200mg Take 1 [facility] 200 mg 0-21 capsule by [facility] of capsule 00:00: mouth in [place] 00 the Medical morning. Branch celecoxib 2021- Yes [id number] 200mg Take 1 [facility] 200 mg 0-21 capsule by [facility] of capsule 00:00: mouth in [place] 00 the Medical morning. Branch celecoxib 2021- Yes [id number] 200mg Take 1 [facility] 200 mg 0-21 capsule by [facility] of capsule 00:00: mouth in [place] 00 the Medical morning. Branch celecoxib 2021- Yes [id number] 200mg Take 1 [facility] 200 mg 0-21 capsule by [facility] of capsule 00:00: mouth in [place] 00 the Medical morning. Branch celecoxib 2022-1 Yes [id number] 200mg Take 1 [facility] 200 mg 0-21 capsule by [facility] capsule 00:00: mouth in [place] the Medical morning. Branch celecoxib 2022-1 Yes [id number] 200mg Take 1 [facility] 200 mg 0-21 capsule by [facility] capsule 00:00: mouth in [place] the Medical morning. Branch celecoxib 2022-1 Yes [id number] 200mg Take 1 [facility] 200 mg 0-21 capsule by [facility] capsule 00:00: mouth in [place] the Medical morning. Branch celecoxib 2022-1 Yes [id number] 200mg Take 1 [facility] 200 mg 0-21 capsule by [facility] capsule 00:00: mouth in [place] the Medical morning. Branch celecoxib 2022-1 Yes [id number] 200mg Take 1 [facility] 200 mg 0-21 capsule by [facility] capsule 00:00: mouth in [place] the Medical morning. Branch celecoxib 2022-1 Yes [id number] 200mg Take 1 [facility] 200 mg 0-21 capsule by [facility] capsule 00:00: mouth in [place] the Medical morning. Branch celecoxib 2022-1 Yes [id number] 200mg Take 1 [facility] 200 mg 0-21 capsule by [facility] capsule 00:00: mouth in [place] the Medical morning. Branch celecoxib 2022-1 Yes [id number] 200mg Take 1 [facility] 200 mg 0-21 capsule by [facility] capsule 00:00: mouth in [place] the Medical morning. Branch celecoxib 2022-1 Yes [id number] 200mg Take 1 [facility] 200 mg 0-21 capsule by [facility] capsule 00:00: mouth in [place] the Medical morning. Branch celecoxib 2022-1 Yes [id number] 200mg Take 1 [facility] 200 mg 0-21 capsule by [facility] capsule 00:00: mouth in [place] the Medical morning. Branch celecoxib 2022-1 Yes [id number] 200mg Take 1 [facility] 200 mg 0-21 capsule by [facility] capsule 00:00: mouth in [place] the Medical morning. Branch celecoxib 2022-1 Yes [id number] 200mg Take 1 [facility] 200 mg 0-21 capsule by [facility] capsule 00:00: mouth in [place] 00 the Medical morning. Branch celecoxib 2022-1 Yes [id number] 200mg Take 1 [facility] 200 mg 0-21 capsule by [facility] capsule 00:00: mouth in [place] 00 the Medical morning. Branch celecoxib 2022-1 Yes [id number] 200mg Take 1 [facility] 200 mg 0-21 capsule by [facility] capsule 00:00: mouth in [place] the Medical morning. Branch celecoxib 2022-1 Yes [id number] 200mg Take 1 [facility] 200 mg 0-21 capsule by [facility] capsule 00:00: mouth in [place] the Medical morning. Branch celecoxib 2022-1 Yes [id number] 200mg Take 1 [facility] 200 mg 0-21 capsule by [facility] capsule 00:00: mouth in [place] the Medical morning. Branch celecoxib 2022-1 Yes [id number] 200mg Take 1 [facility] 200 mg 0-21 capsule by [facility] capsule 00:00: mouth in [place] the Medical morning. Branch celecoxib 2022-1 Yes [id number] 200mg Take 1 [facility] 200 mg 0-21 capsule by [facility] capsule 00:00: mouth in [place] the Medical morning. Branch celecoxib 2022-1 Yes [id number] 200mg Take 1 [facility] 200 mg 0-21 capsule by [facility] capsule 00:00: mouth in [place] the Medical morning. Branch celecoxib 2022-1 Yes [id number] 200mg Take 1 [facility] 200 mg 0-21 capsule by [facility] capsule 00:00: mouth in [place] the Medical morning. Branch celecoxib 2022-1 Yes [id number] 200mg Take 1 [facility] 200 mg 0-21 capsule by [facility] capsule 00:00: mouth in [place] the Medical morning. Branch celecoxib 2022-1 Yes [id number] 200mg Take 1 [facility] 200 mg 0-21 capsule by [facility] capsule 00:00: mouth in [place] the Medical morning. Branch celecoxib 2022-1 Yes [id number] 200mg Take 1 [facility] 200 mg 0-21 capsule by [facility] capsule 00:00: mouth in [place] the Medical morning. Branch celecoxib 2022-1 Yes [id number] 200mg Take 1 [facility] 200 mg 0-21 capsule by [facility] capsule 00:00: mouth in [place] the Medical morning. Branch celecoxib 2022-1 Yes [id number] 200mg Take 1 [facility] 200 mg 0-21 capsule by [facility] capsule 00:00: mouth in [place] the Medical morning. Branch celecoxib 2022-1 Yes [id number] 200mg Take 1 [facility] 200 mg 0-21 capsule by [facility] capsule 00:00: mouth in [place] 00 the Medical morning. Branch celecoxib 2022-1 Yes [id number] 200mg Take 1 [facility] 200 mg 0-21 capsule by [facility] capsule 00:00: mouth in [place] the Medical morning. Branch celecoxib 2-1 Yes [id number] 200mg Take 1 [facility] 200 mg 0-21 capsule by [facility] capsule 00:00: mouth in [place] the Medical morning. Branch celecoxib 2022-1 Yes [id number] 200mg Take 1 [facility] 200 mg 0-21 capsule by [facility] capsule 00:00: mouth in [place] the Medical morning. Branch celecoxib 2-1 Yes [id number] 200mg Take 1 [facility] 200 mg 0-21 capsule by [facility] capsule 00:00: mouth in [place] the Medical morning. Branch celecoxib 2-1 Yes [id number] 200mg Take 1 [facility] 200 mg 0-21 capsule by [facility] capsule 00:00: mouth in [place] the Medical morning. Branch celecoxib 2-1 Yes [id number] 200mg Take 1 [facility] 200 mg 0-21 capsule by [facility] capsule 00:00: mouth in [place] the Medical morning. Branch celecoxib 2-1 Yes [id number] 200mg Take 1 [facility] 200 mg 0-21 capsule by [facility] capsule 00:00: mouth in [place] the Medical morning. Branch celecoxib 2-1 Yes [id number] 200mg Take 1 [facility] 200 mg 0-21 capsule by [facility] capsule 00:00: mouth in [place] the Medical morning. Branch celecoxib 2022-1 Yes [id number] 200mg Take 1 [facility] 200 mg 0-21 capsule by [facility] capsule 00:00: mouth in [place] the Medical morning. Branch celecoxib 2022-1 Yes [id number] 200mg Take 1 [facility] 200 mg 0-21 capsule by [facility] capsule 00:00: mouth in [place] 00 the Medical morning. Branch celecoxib 2022-1 Yes [id number] 200mg Take 1 [facility] 200 mg 0-21 capsule by [facility] of capsule 00:00: mouth in [place] 00 the Medical morning. Branch celecoxib 2022-1 Yes [id number] 200mg Take 1 [facility] 200 mg 0-21 capsule by [facility] of capsule 00:00: mouth in [place] 00 the Medical morning. Branch celecoxib 2022-1 Yes [id number] 200mg Take 1 [facility] 200 mg 0-21 capsule by [facility] of capsule 00:00: mouth in [place] 00 the Medical morning. Branch celecoxib 2022-1 Yes [id number] 200mg Take 1 [facility] 200 mg 0-21 capsule by [facility] of capsule 00:00: mouth in [place] the Medical morning. Branch celecoxib 2022-1 Yes [id number] 200mg Take 1 [facility] 200 mg 0-21 capsule by [facility] capsule 00:00: mouth in [place] the Medical morning. Branch celecoxib 2022-1 Yes [id number] 200mg Take 1 [facility] 200 mg 0-21 capsule by [facility] of capsule 00:00: mouth in [place] the Medical morning. Branch celecoxib 2022-1 Yes [id number] 200mg Take 1 [facility] 200 mg 0-21 capsule by [facility] of capsule 00:00: mouth in [place] the Medical morning. Branch celecoxib 2022-1 Yes [id number] 200mg Take 1 [facility] 200 mg 0-21 capsule by [facility] of capsule 00:00: mouth in [place] the Medical morning. Branch celecoxib 2022-1 Yes [id number] 200mg Take 1 [facility] 200 mg 0-21 capsule by [facility] of capsule 00:00: mouth in [place] the Medical morning. Branch celecoxib 2022-1 Yes [id number] 200mg Take 1 [facility] 200 mg 0-21 capsule by [facility] capsule 00:00: mouth in [place] the Medical morning. Branch celecoxib 2022-1 Yes [id number] 200mg Take 1 [facility] 200 mg 0-21 capsule by [facility] of capsule 00:00: mouth in [place] the Medical morning. Branch celecoxib 2022-1 Yes [id number] 200mg Take 1 [facility] 200 mg 0-21 capsule by [facility] of capsule 00:00: mouth in [place] the Medical morning. Branch celecoxib 2022-1 Yes [id number] 200mg Take 1 [facility] 200 mg 0-21 capsule by [facility] of capsule 00:00: mouth in [place] the Medical morning. Branch celecoxib 2022-1 Yes [id number] 200mg Take 1 [facility] 200 mg 0-21 capsule by [facility] of capsule 00:00: mouth in [place] 00 the Medical morning. Branch celecoxib 2022-1 Yes [id number] 200mg Take 1 [facility] 200 mg 0-21 capsule by [facility] of capsule 00:00: mouth in [place] 00 the Medical morning. Branch celecoxib 2021-07 Yes [id number] 200mg Take 1 [facility] 200 mg 0-21 capsule by [facility] of capsule 00:00: mouth in [place] 00 the Medical morning. Branch celecoxib 2021-2022- No [id number] 200mg Take 1 [facility] 200 mg 0-21 07-19 capsule by [facility] of capsule 00:00: 00:00 mouth in [place] 00 :00 the Medical morning. Branch celecoxib 2021-2022- No [id number] 200mg Take 1 [facility] 200 mg 0-21 07-19 capsule by [facility] of capsule 00:00: 00:00 mouth in [place] 00 :00 the Medical morning. Branch celecoxib 2021-2022- No [id number] 200mg Take 1 [facility] 200 mg 0-21 07-19 capsule by [facility] capsule 00:00: 00:00 mouth in [place] 00 :00 the Medical morning. Branch HYDROcodone 2021-07 Yes 2745 1{tbl} Take 1 [facility] [place] -acetaminop 0-19 tablet by [facility] ([facility]) 00:00: mouth in [place] 10-325 mg 00 the Medical tablet morning Branch and 1 tablet at noon and 1 tablet in the evening. Indication s: chronic pain HYDROcodone 2021-07 Yes 2745 1{tbl} Take 1 [facility] [place] -acetaminop 0-19 tablet by [facility] ([facility]) 00:00: mouth in [place] 10-325 mg 00 the Medical tablet morning Branch and 1 tablet at noon and 1 tablet in the evening. Indication s: chronic pain HYDROcodone 2021-07 Yes 2745 1{tbl} Take 1 [facility] [place] -acetaminop 0-19 tablet by [facility] ([facility]) 00:00: mouth in [place] 10-325 mg 00 the Medical tablet morning Branch and 1 tablet at noon and 1 tablet in the evening. Indication s: chronic pain HYDROcodone 2021-07 Yes 2745 1{tbl} Take 1 [facility] [place] -acetaminop 0-19 tablet by [facility] ([facility]) 00:00: mouth in [place] 10-325 mg 00 the Medical tablet morning Branch and 1 tablet at noon and 1 tablet in the evening. Indication s: chronic pain HYDROcodone 2021- Yes 2745 1{tbl} Take 1 [facility] [place] -acetaminop 0-19 tablet by [facility] hen ([facility]) 00:00: mouth in [place] 10-325 mg 00 the Medical tablet morning Branch and 1 tablet at noon and 1 tablet in the evening. Indication s: chronic pain HYDROcodone 2021-07 Yes 2745 1{tbl} Take 1 [facility] [place] -acetaminop 0-19 tablet by [facility] hen ([facility]) 00:00: mouth in [place] 10-325 mg 00 the Medical tablet morning Branch and 1 tablet at noon and 1 tablet in the evening. Indication s: chronic pain HYDROcodone 2021-07 Yes 2745 1{tbl} Take 1 [facility] [place] -acetaminop 0-19 tablet by [facility] hen ([facility]) 00:00: mouth in [place] 10-325 mg 00 the Medical tablet morning Branch and 1 tablet at noon and 1 tablet in the evening. Indication s: chronic pain HYDROcodone 2021-07 No 2745 1{tbl} Take 1 [facility] -acetaminop 0-19 11-17 tablet by [facility] of hen ([facility]CO) 00:00: 00:00 mouth in [place] 10-325 mg 00 :00 the Medical tablet morning Branch and 1 tablet at noon and 1 tablet in the evening. Indication s: chronic pain pregabalin 2021-07 Yes [id number] 150mg Take 1 [facility] 150 mg 0-12 capsule by [facility] of capsule 00:00: mouth in [place] [address] the Medical morning Branch and 1 capsule at noon and 1 capsule in the evening. pregabalin 2021-07 Yes [id number] 150mg Take 1 [facility] 150 mg 0-12 capsule by [facility] of capsule 00:00: mouth in [place] [address] the Medical morning Branch and 1 capsule at noon and 1 capsule in the evening. pregabalin 2021-07 Yes [id number] 150mg Take 1 [facility] 150 mg 0-12 capsule by [facility] of capsule 00:00: mouth in [place] [address] the Medical morning Branch and 1 capsule at noon and 1 capsule in the evening. pregabalin 2021-07 Yes [id number] 150mg Take 1 [facility] 150 mg 0-12 capsule by [facility] of capsule 00:00: mouth in [place] [address] the Medical morning Branch and 1 capsule at noon and 1 capsule in the evening. pregabalin 202- Yes [id number] 150mg Take 1 [facility] 150 mg 0-12 capsule by [facility] of capsule 00:00: mouth in [address] morning [place] and 1 capsule at noon and 1 capsule in the evening. pregabalin 2021-1 Yes [id number] 150mg Take 1 [facility] 150 mg 0-12 capsule by [facility] of capsule 00:00: mouth in [address] morning [place] and 1 capsule at noon and 1 capsule in the evening. pregabalin 2021- Yes [id number] 150mg Take 1 [facility] 150 mg 0-12 capsule by [facility] of capsule 00:00: mouth in [address] morning [place] and 1 capsule at noon and 1 capsule in the evening. pregabalin 2021- Yes [id number] 150mg Take 1 [facility] 150 mg 0-12 capsule by [facility] of capsule 00:00: mouth in [address] and 1 capsule at noon and 1 capsule in the evening. pregabalin 2021-1 Yes [id number] 150mg Take 1 [facility] 150 mg 0-12 capsule by [facility] of capsule 00:00: mouth in [address] and 1 capsule at noon and 1 capsule in the evening. pregabalin 2021-1 Yes [id number] 150mg Take 1 [facility] 150 mg 0-12 capsule by [facility] of capsule 00:00: mouth in [address] and 1 capsule at noon and 1 capsule in the evening. pregabalin 2021-1 Yes [id number] 150mg Take 1 [facility] 150 mg 0-12 capsule by [facility] of capsule 00:00: mouth in [address] and 1 capsule at noon and 1 capsule in the evening. pregabalin 2021-1 Yes [id number] 150mg Take 1 [facility] 150 mg 0-12 capsule by [facility] of capsule 00:00: mouth in [address] and 1 capsule at noon and 1 capsule in the evening. pregabalin 2021-1 Yes [id number] 150mg Take 1 [facility] 150 mg 0-12 capsule by [facility] of capsule 00:00: mouth in [address] and 1 capsule at noon and 1 capsule in the evening. pregabalin 202-1 Yes [id number] 150mg Take 1 [facility] 150 mg 0-12 capsule by [facility] of capsule 00:00: mouth in [address] morning [place] and 1 capsule at noon and 1 capsule in the evening. pregabalin 2021- Yes [id number] 150mg Take 1 [facility] 150 mg 0-12 capsule by [facility] of capsule 00:00: mouth in [address] morning [place] and 1 capsule at noon and 1 capsule in the evening. pregabalin 2021- Yes [id number] 150mg Take 1 [facility] 150 mg 0-12 capsule by [facility] of capsule 00:00: mouth in [address] morning [place] and 1 capsule at noon and 1 capsule in the evening. pregabalin 2021- Yes [id number] 150mg Take 1 [facility] 150 mg 0-12 capsule by [facility] of capsule 00:00: mouth in [address] morning [place] and 1 capsule at noon and 1 capsule in the evening. pregabalin 2021- Yes [id number] 150mg Take 1 [facility] 150 mg 0-12 capsule by [facility] of capsule 00:00: mouth in [address] and 1 capsule at noon and 1 capsule in the evening. pregabalin 2021-07 Yes [id number] 150mg Take 1 [facility] 150 mg 0-12 capsule by [facility] of capsule 00:00: mouth in [address] morning [place] and 1 capsule at noon and 1 capsule in the evening. pregabalin 2021- Yes [id number] 150mg Take 1 [facility] 150 mg 0-12 capsule by [facility] of capsule 00:00: mouth in [address] and 1 capsule at noon and 1 capsule in the evening. pregabalin 2021-1 Yes [id number] 150mg Take 1 [facility] 150 mg 0-12 capsule by [facility] of capsule 00:00: mouth in [address] morning [place] and 1 capsule at noon and 1 capsule in the evening. pregabalin 2021-1 Yes [id number] 150mg Take 1 [facility] 150 mg 0-12 capsule by [facility] of capsule 00:00: mouth in [address] morning [place] and 1 capsule at noon and 1 capsule in the evening. pregabalin 2021- 2023- No [id number] 150mg Take 1 [facility] 150 mg 0-12 -16 capsule by [facility] of capsule 00:00: 00:00 mouth in [place] 00 :00 the Medical morning Branch and 1 capsule at noon and 1 capsule in the evening. pregabalin 2021-07- No [id number] 150mg Take 1 [facility] 150 mg 0-12 02-16 capsule by [facility] of capsule 00:00: 00:00 mouth in [place] 00 :00 the Medical morning Branch and 1 capsule at noon and 1 capsule in the evening. pregabalin 2021-07- No [id number] 150mg Take 1 [facility] 150 mg 0-12 02-16 capsule by [facility] of capsule 00:00: 00:00 mouth in [place] 00 :00 the Medical morning Branch and 1 capsule at noon and 1 capsule in the evening. pantoprazol 2021-07 Yes [id number] 40mg Take 1 [facility] e 40 mg EC 0-07 tablet by [facility] of tablet 00:00: mouth in [place] 00 the Medical morning. Branch pantoprazol 2021-07 Yes [id number] 40mg Take 1 [facility] e 40 mg EC 0-07 tablet by [facility] of tablet 00:00: mouth in [place] the Medical morning. Branch pantoprazol 2021-07 Yes [id number] 40mg Take 1 [facility] e 40 mg EC 0-07 tablet by [facility] of tablet 00:00: mouth in [place] the Medical morning. Branch pantoprazol 2021-07 Yes [id number] 40mg Take 1 [facility] e 40 mg EC 0-07 tablet by [facility] of tablet 00:00: mouth in [place] the Medical morning. Branch pantoprazol 2021-07 Yes [id number] 40mg Take 1 [facility] e 40 mg EC 0-07 tablet by [facility] of tablet 00:00: mouth in [place] the Medical morning. Branch pantoprazol 2021-07 Yes [id number] 40mg Take 1 [facility] e 40 mg EC 0-07 tablet by [facility] of tablet 00:00: mouth in [place] the Medical morning. Branch pantoprazol 2021-07 Yes [id number] 40mg Take 1 [facility] e 40 mg EC 0-07 tablet by [facility] of tablet 00:00: mouth in [place] the Medical morning. Branch pantoprazol 2021-07 Yes [id number] 40mg Take 1 [facility] e 40 mg EC 0-07 tablet by [facility] of tablet 00:00: mouth in [place] 00 the Medical morning. Branch pantoprazol 2021-07 Yes [id number] 40mg Take 1 [facility] e 40 mg EC 0-07 tablet by [facility] of tablet 00:00: mouth in [place] 00 the Medical morning. Branch pantoprazol 2021-07 Yes [id number] 40mg Take 1 [facility] e 40 mg EC 0-07 tablet by [facility] of tablet 00:00: mouth in [place] 00 the Medical morning. Branch pantoprazol 2021-07 Yes [id number] 40mg Take 1 [facility] e 40 mg EC 0-07 tablet by [facility] of tablet 00:00: mouth in [place] 00 the Medical morning. Branch pantoprazol 2021-07 Yes [id number] 40mg Take 1 [facility] e 40 mg EC 0-07 tablet by [facility] of tablet 00:00: mouth in [place] 00 the Medical morning. Branch pantoprazol 2021-07 Yes [id number] 40mg Take 1 [facility] e 40 mg EC 0-07 tablet by [facility] of tablet 00:00: mouth in [place] the Medical morning. Branch pantoprazol 2021-07 Yes [id number] 40mg Take 1 [facility] e 40 mg EC 0-07 tablet by [facility] of tablet 00:00: mouth in [place] the Medical morning. Branch pantoprazol 2021-07 Yes [id number] 40mg Take 1 [facility] e 40 mg EC 0-07 tablet by [facility] of tablet 00:00: mouth in [place] the Medical morning. Branch pantoprazol 2021-07 Yes [id number] 40mg Take 1 [facility] e 40 mg EC 0-07 tablet by [facility] of tablet 00:00: mouth in [place] the Medical morning. Branch pantoprazol 2021-07 Yes [id number] 40mg Take 1 [facility] e 40 mg EC 0-07 tablet by [facility] of tablet 00:00: mouth in [place] the Medical morning. Branch pantoprazol 2021-07 Yes [id number] 40mg Take 1 [facility] e 40 mg EC 0-07 tablet by [facility] of tablet 00:00: mouth in [place] 00 the Medical morning. Branch pantoprazol 2021-07 Yes [id number] 40mg Take 1 [facility] e 40 mg EC 0-07 tablet by [facility] of tablet 00:00: mouth in [place] 00 the Medical morning. Branch pantoprazol 2021-07 Yes [id number] 40mg Take 1 [facility] e 40 mg EC 0-07 tablet by [facility] of tablet 00:00: mouth in [place] 00 the Medical morning. Branch pantoprazol 2021-07 Yes [id number] 40mg Take 1 [facility] e 40 mg EC 0-07 tablet by [facility] of tablet 00:00: mouth in [place] 00 the Medical morning. Branch pantoprazol 2021-07 Yes [id number] 40mg Take 1 [facility] e 40 mg EC 0-07 tablet by [facility] of tablet 00:00: mouth in [place] 00 the Medical morning. Branch pantoprazol 2021-07 Yes [id number] 40mg Take 1 [facility] e 40 mg EC 0-07 tablet by it[facility] of tablet 00:00: mouth in [place] 00 the Medical morning. Branch pantoprazol 2021-07 Yes [id number] 40mg Take 1 [facility] e 40 mg EC 0-07 tablet by [facility] of tablet 00:00: mouth in [place] 00 the Medical morning. Branch pantoprazol 2021-07 Yes [id number] 40mg Take 1 [facility] e 40 mg EC 0-07 tablet by it[facility] of tablet 00:00: mouth in [place] the Medical morning. Branch pantoprazol 2021-07 Yes [id number] 40mg Take 1 [facility] e 40 mg EC 0-07 tablet by [facility] of tablet 00:00: mouth in [place] the Medical morning. Branch pantoprazol 2021-07 Yes [id number] 40mg Take 1 [facility] e 40 mg EC 0-07 tablet by [facility] of tablet 00:00: mouth in [place] the Medical morning. Branch pantoprazol 2021-07 Yes [id number] 40mg Take 1 [facility] e 40 mg EC 0-07 tablet by [facility] of tablet 00:00: mouth in [place] the Medical morning. Branch pantoprazol 2021-07 Yes [id number] 40mg Take 1 [facility] e 40 mg EC 0-07 tablet by [facility] of tablet 00:00: mouth in [place] 00 the Medical morning. Branch pantoprazol 2021-07 Yes [id number] 40mg Take 1 [facility] e 40 mg EC 0-07 tablet by [facility] of tablet 00:00: mouth in [place] 00 the Medical morning. Branch pantoprazol 2021-07 Yes [id number] 40mg Take 1 [facility] e 40 mg EC 0-07 tablet by [facility] of tablet 00:00: mouth in [place] 00 the Medical morning. Branch pantoprazol 2021-07 Yes [id number] 40mg Take 1 [facility] e 40 mg EC 0-07 tablet by [facility] of tablet 00:00: mouth in [place] 00 the Medical morning. Branch pantoprazol 2021-07 Yes [id number] 40mg Take 1 [facility] e 40 mg EC 0-07 tablet by [facility] of tablet 00:00: mouth in [place] 00 the Medical morning. Branch pantoprazol 2021-07 Yes [id number] 40mg Take 1 [facility] e 40 mg EC 0-07 tablet by [facility] of tablet 00:00: mouth in [place] 00 the Medical morning. Branch pantoprazol 2021-07 Yes [id number] 40mg Take 1 [facility] e 40 mg EC 0-07 tablet by [facility] of tablet 00:00: mouth in [place] 00 the Medical morning. Branch pantoprazol 2021-07 Yes [id number] 40mg Take 1 [facility] e 40 mg EC 0-07 tablet by [facility] of tablet 00:00: mouth in [place] 00 the Medical morning. Branch pantoprazol 2021-07 Yes [id number] 40mg Take 1 [facility] e 40 mg EC 0-07 tablet by [facility] of tablet 00:00: mouth in [place] the Medical morning. Branch pantoprazol 2021-07 Yes [id number] 40mg Take 1 [facility] e 40 mg EC 0-07 tablet by [facility] of tablet 00:00: mouth in [place] the Medical morning. Branch pantoprazol 2021-07 Yes [id number] 40mg Take 1 [facility] e 40 mg EC 0-07 tablet by [facility] of tablet 00:00: mouth in [place] 00 the Medical morning. Branch pantoprazol 2021-07 Yes [id number] 40mg Take 1 [facility] e 40 mg EC 0-07 tablet by it[facility] of tablet 00:00: mouth in [place] 00 the Medical morning. Branch pantoprazol 2021-07 Yes [id number] 40mg Take 1 [facility] e 40 mg EC 0-07 tablet by [facility] of tablet 00:00: mouth in [place] 00 the Medical morning. Branch pantoprazol 2021-07 Yes [id number] 40mg Take 1 [facility] e 40 mg EC 0-07 tablet by [facility] of tablet 00:00: mouth in [place] 00 the Medical morning. Branch pantoprazol 2021-07 Yes [id number] 40mg Take 1 [facility] e 40 mg EC 0-07 tablet by [facility] of tablet 00:00: mouth in [place] 00 the Medical morning. Branch pantoprazol 2021-07 Yes [id number] 40mg Take 1 [facility] e 40 mg EC 0-07 tablet by [facility] of tablet 00:00: mouth in [place] 00 the morning. Branch pantoprazol 2021-07 Yes [id number] 40mg Take 1 [facility] e 40 mg EC 0-07 tablet by [facility] of tablet 00:00: mouth in [place] 00 the morning. Branch pantoprazol 2021-07 Yes [id number] 40mg Take 1 [facility] e 40 mg EC 0-07 tablet by [facility] of tablet 00:00: mouth in [place] 00 the morning. Branch pantoprazol 2021-07- No [id number] 40mg Take 1 [facility] e 40 mg EC 0-07 06-19 tablet by [facility] of tablet 00:00: 00:00 mouth in [place] 00 :00 the Medical morning. Branch pregabalin 2021-07 Yes [id number] 150mg Take 1 [facility] 150 mg 0-06 capsule by [facility] of capsule 00:00: mouth in [place] 00 the Medical morning Branch and 1 capsule at noon and 1 capsule in the evening. pregabalin 2021-07 Yes [id number] 150mg Take 1 [facility] 150 mg 0-06 capsule by [facility] of capsule 00:00: mouth in [place] the Medical morning Branch and 1 capsule at noon and 1 capsule in the evening. pregabalin 2021-07- No [id number] 150mg Take 1 [facility] 150 mg 0-06 10-12 capsule by [facility] of capsule 00:00: 00:00 mouth in [place] 00 :00 the Medical morning Branch and 1 capsule at noon and 1 capsule in the evening. pregabalin 2021-07- No [id number] 150mg Take 1 [facility] 150 mg 0-06 10-12 capsule by [facility] of capsule 00:00: 00:00 mouth in [place] 00 :00 the Medical morning Branch and 1 capsule at noon and 1 capsule in the evening. HYDROcodone Yes 2745 1{tbl} Take 1 [facility] [place] -acetaminop 9-18 tablet by [facility] ([facility]) 00:00: mouth in [place] 10-325 mg 00 the Medical tablet morning Branch and 1 tablet at noon and 1 tablet in the evening. Indication s: chronic pain HYDROcodone Yes 2745 1{tbl} Take 1 [facility] [place] -acetaminop 9-18 tablet by [facility] ([facility]) 00:00: mouth in [place] 10-325 mg 00 the Medical tablet morning Branch and 1 tablet at noon and 1 tablet in the evening. Indication s: chronic pain HYDROcodone 2022-0 Yes 2745 1{tbl} Take 1 [facility] [place] -acetaminop 9-18 tablet by [facility] of hen ([facility]) 00:00: mouth in [place] 10-325 mg 00 the Medical tablet morning Branch and 1 tablet at noon and 1 tablet in the evening. Indication s: chronic pain HYDROcodone 2-0 2021- No 2745 1{tbl} Take 1 [facility] -acetaminop 9-18 10-12 tablet by [facility] y of hen ([facility]) 00:00: 00:00 mouth in [place] 10-325 mg 00 :00 the Medical tablet morning Branch and 1 tablet at noon and 1 tablet in the evening. Indication s: chronic pain HYDROcodone 2-0 2021- No 2745 1{tbl} Take 1 [facility] -acetaminop 9-18 10-12 tablet by [facility] of hen ([facility]) 00:00: 00:00 mouth in [place] 10-325 mg 00 :00 the Medical tablet morning Branch and 1 tablet at noon and 1 tablet in the evening. Indication s: chronic pain metoclopram 2022-0 Yes [id number] 5mg Take 1 [facility] lindsay HCl 9-06 tablet by ity of (REGLAN) 5 00:00: mouth in [place] mg tablet 00 the Medical morning. Branch metoclopram 2022-0 Yes [id number] 5mg Take 1 [facility] lindsay HCl 9-06 tablet by ity of (REGLAN) 5 00:00: mouth in [place] as mg tablet 00 the Medical morning. Branch metoclopram 2022-0 Yes [id number] 5mg Take 1 [facility] lindsay HCl 9-06 tablet by ity of (REGLAN) 5 00:00: mouth in [place] mg tablet 00 the Medical morning. Branch metoclopram 2022-0 Yes [id number] 5mg Take 1 [facility] l[facility] HCl 9-06 tablet by ity of (REGLAN) 5 00:00: mouth in [place] mg tablet 00 the Medical morning. Branch metoclopram 2022-0 Yes [id number] 5mg Take 1 [facility] l[facility] HCl 9-06 tablet by ity of (REGLAN) 5 00:00: mouth in [place] mg tablet 00 the Medical morning. Branch metoclopram 2022-0 Yes [id number] 5mg Take 1 [facility] l[facility] HCl 9-06 tablet by ity of (REGLAN) 5 00:00: mouth in [place] mg tablet 00 the Medical morning. Branch metoclopram 2022-0 Yes [id number] 5mg Take 1 [facility] l[facility] HCl 9-06 tablet by ity of (REGLAN) 5 00:00: mouth in [place] mg tablet 00 the Medical morning. Branch metoclopram 2022-0 Yes [id number] 5mg Take 1 [facility] HCl 9-06 tablet by ity of (REGLAN) 5 00:00: mouth in [place] mg tablet 00 the Medical morning. Branch metoclopram 2022-0 Yes [id number] 5mg Take 1 [facility] HCl 9-06 tablet by ity of (REGLAN) 5 00:00: mouth in [place] mg tablet 00 the Medical morning. Branch metoclopram 2022-0 Yes [id number] 5mg Take 1 [facility] HCl 9-06 tablet by ity of (REGLAN) 5 00:00: mouth in [place] mg tablet 00 the Medical morning. Branch metoclopram 2022-0 Yes [id number] 5mg Take 1 [facility] HCl 9-06 tablet by ity of (REGLAN) 5 00:00: mouth in [place] mg tablet 00 the Medical morning. Branch metoclopram 2022-0 Yes [id number] 5mg Take 1 [facility] HCl 9-06 tablet by ity of (REGLAN) 5 00:00: mouth in [place] mg tablet 00 the Medical morning. Branch metoclopram 2022-0 Yes [id number] 5mg Take 1 [facility] HCl 9-06 tablet by ity of (REGLAN) 5 00:00: mouth in [place] mg tablet 00 the Medical morning. Branch metoclopram 2022-0 Yes [id number] 5mg Take 1 [facility] HCl 9-06 tablet by ity of (REGLAN) 5 00:00: mouth in [place] mg tablet 00 the Medical morning. Branch metoclopram 2022-0 Yes [id number] 5mg Take 1 [facility] HCl 9-06 tablet by ity of (REGLAN) 5 00:00: mouth in [place] mg tablet 00 the Medical morning. Branch metoclopram 2022-0 Yes [id number] 5mg Take 1 [facility] HCl 9-06 tablet by ity of (REGLAN) 5 00:00: mouth in [place] mg tablet 00 the Medical morning. Branch metoclopram 2022-0 Yes [id number] 5mg Take 1 [facility] HCl 9-06 tablet by ity of (REGLAN) 5 00:00: mouth in [place] mg tablet 00 the Medical morning. Branch metoclopram 2022-0 Yes [id number] 5mg Take 1 [facility] HCl 9-06 tablet by ity of (REGLAN) 5 00:00: mouth in [place] mg tablet 00 the Medical morning. Branch metoclopram 2022-0 Yes [id number] 5mg Take 1 [facility] HCl 9-06 tablet by ity of (REGLAN) 5 00:00: mouth in [place] mg tablet 00 the Medical morning. Branch metoclopram 2022-0 Yes [id number] 5mg Take 1 [facility] HCl 9-06 tablet by ity of (REGLAN) 5 00:00: mouth in [place] mg tablet 00 the Medical morning. Branch metoclopram 2022-0 Yes [id number] 5mg Take 1 [facility] HCl 9-06 tablet by ity of (REGLAN) 5 00:00: mouth in [place] mg tablet 00 the Medical morning. Branch metoclopram 2022-0 Yes [id number] 5mg Take 1 [facility] HCl 9-06 tablet by ity of (REGLAN) 5 00:00: mouth in [place] mg tablet 00 the Medical morning. Branch metoclopram 2022-0 Yes [id number] 5mg Take 1 [facility] HCl 9-06 tablet by ity of (REGLAN) 5 00:00: mouth in [place] mg tablet 00 the Medical morning. Branch metoclopram 2022-0 Yes [id number] 5mg Take 1 [facility] HCl 9-06 tablet by ity of (REGLAN) 5 00:00: mouth in [place] mg tablet 00 the Medical morning. Branch metoclopram 2022-0 Yes [id number] 5mg Take 1 [facility] HCl 9-06 tablet by ity of (REGLAN) 5 00:00: mouth in [place] mg tablet 00 the Medical morning. Branch metoclopram 2021-0 Yes [id number] 5mg Take 1 [facility] HCl 9-06 tablet by ity of (REGLAN) 5 00:00: mouth in [place] mg tablet 00 the Medical morning. Branch metoclopram 2021-0 2022- No [id number] 5mg Take 1 [facility] HCl 9-06 02-15 tablet by ity of (REGLAN) 5 00:00: 00:00 mouth in [place] mg tablet 00 :00 the Medical morning. Branch metoclopram 2021-0 2022- No [id number] 5mg Take 1 [facility] lindsay HCl 9-06 02-15 tablet by ity of (REGLAN) 5 00:00: 00:00 mouth in [place] mg tablet 00 :00 the Medical morning. Branch cycloSPORIN 2021-0 Yes [id number] 1[drp] Place 1 [facility] E 9-05 Drop in ity of (RESTASIS) 00:00: both eyes [place] 0.05 % 00 every 12 Medical drops (twelve) Branch hours. cycloSPORIN 2021-0 Yes [id number] 1[drp] Place 1 [facility] E 9-05 Drop in ity of (RESTASIS) 00:00: both eyes [place] 0.05 % 00 every 12 Medical drops (twelve) Branch hours. cycloSPORIN 2021-0 Yes [id number] 1[drp] Place 1 [facility] E 9-05 Drop in ity of (RESTASIS) 00:00: both eyes [place] 0.05 % 00 every 12 Medical drops (twelve) Branch hours. cycloSPORIN 2021-0 Yes [id number] 1[drp] Place 1 [facility] E 9-05 Drop in ity of (RESTASIS) 00:00: both eyes [place] 0.05 % 00 every 12 Medical drops (twelve) Branch hours. cycloSPORIN 2022-0 Yes [id number] 1[drp] Place 1 [facility] E 9-05 Drop in ity of (RESTASIS) 00:00: both eyes [place] 0.05 % 00 every 12 Medical drops (twelve) Branch hours. cycloSPORIN 2021-0 Yes [id number] 1[drp] Place 1 [facility] E 9-05 Drop in ity of (RESTASIS) 00:00: both eyes [place] 0.05 % 00 every 12 Medical drops (twelve) Branch hours. cycloSPORIN 2021-0 Yes [id number] 1[drp] Place 1 [facility] E 9-05 Drop in ity of (RESTASIS) 00:00: both eyes [place] 0.05 % 00 every 12 Medical drops (twelve) Branch hours. cycloSPORIN 2022-0 Yes [id number] 1[drp] Place 1 [facility] E 9-05 Drop in ity of (RESTASIS) 00:00: both eyes [place] 0.05 % 00 every 12 Medical drops (twelve) Branch hours. cycloSPORIN 2022-0 Yes [id number] 1[drp] Place 1 [facility] E 9-05 Drop in ity of (RESTASIS) 00:00: both eyes [place] 0.05 % 00 every 12 Medical drops (twelve) Branch hours. cycloSPORIN 2022-0 Yes [id number] 1[drp] Place 1 [facility] E 9-05 Drop in ity of (RESTASIS) 00:00: both eyes [place] 0.05 % 00 every 12 Medical drops (twelve) Branch hours. cycloSPORIN 2022-0 Yes [id number] 1[drp] Place 1 [facility] E 9-05 Drop in ity of (RESTASIS) 00:00: both eyes [place] 0.05 % 00 every 12 Medical drops (twelve) Branch hours. cycloSPORIN 2022-0 Yes [id number] 1[drp] Place 1 [facility] E 9-05 Drop in ity of (RESTASIS) 00:00: both eyes [place] 0.05 % 00 every 12 Medical drops (twelve) Branch hours. cycloSPORIN 2022-0 Yes [id number] 1[drp] Place 1 [facility] E 9-05 Drop in ity of (RESTASIS) 00:00: both eyes [place] 0.05 % 00 every 12 Medical drops (twelve) Branch hours. cycloSPORIN 2022-0 Yes [id number] 1[drp] Place 1 [facility] E 9-05 Drop in ity of (RESTASIS) 00:00: both eyes [place] 0.05 % 00 every 12 Medical drops (twelve) Branch hours. cycloSPORIN 2022-0 Yes [id number] 1[drp] Place 1 [facility] E 9-05 Drop in ity of (RESTASIS) 00:00: both eyes [place] 0.05 % 00 every 12 Medical drops (twelve) Branch hours. cycloSPORIN 2022-0 Yes [id number] 1[drp] Place 1 [facility] E 9-05 Drop in ity of (RESTASIS) 00:00: both eyes [place] 0.05 % 00 every 12 Medical drops (twelve) Branch hours. cycloSPORIN 2021-0 Yes [id number] 1[drp] Place 1 [facility] E 9-05 Drop in ity of (RESTASIS) 00:00: both eyes [place] 0.05 % 00 every 12 Medical drops (twelve) Branch hours. cycloSPORIN 2-0 Yes [id number] 1[drp] Place 1 [facility] E 9-05 Drop in ity of (RESTASIS) 00:00: both eyes [place] 0.05 % 00 every 12 Medical drops (twelve) Branch hours. cycloSPORIN 2021-0 Yes [id number] 1[drp] Place 1 [facility] E 9-05 Drop in ity of (RESTASIS) 00:00: both eyes [place] 0.05 % 00 every 12 Medical drops (twelve) Branch hours. cycloSPORIN 2021-0 Yes [id number] 1[drp] Place 1 [facility] E 9-05 Drop in ity of (RESTASIS) 00:00: both eyes [place] 0.05 % 00 every 12 Medical drops (twelve) Branch hours. cycloSPORIN 2021-0 Yes [id number] 1[drp] Place 1 [facility] E 9-05 Drop in ity of (RESTASIS) 00:00: both eyes [place] 0.05 % 00 every 12 Medical drops (twelve) Branch hours. cycloSPORIN 2021-0 Yes [id number] 1[drp] Place 1 [facility] E 9-05 Drop in ity of (RESTASIS) 00:00: both eyes [place] 0.05 % 00 every 12 Medical drops (twelve) Branch hours. cycloSPORIN 2022-0 Yes [id number] 1[drp] Place 1 [facility] E 9-05 Drop in ity of (RESTASIS) 00:00: both eyes [place] 0.05 % 00 every 12 Medical drops (twelve) Branch hours. cycloSPORIN 2-0 Yes [id number] 1[drp] Place 1 [facility] E 9-05 Drop in ity of (RESTASIS) 00:00: both eyes [place] 0.05 % 00 every 12 Medical drops (twelve) Branch hours. cycloSPORIN 2-0 Yes [id number] 1[drp] Place 1 [facility] E 9-05 Drop in ity of (RESTASIS) 00:00: both eyes [place] 0.05 % 00 every 12 Medical drops (twelve) Branch hours. cycloSPORIN 2022-0 Yes [id number] 1[drp] Place 1 [facility] E 9-05 Drop in ity of (RESTASIS) 00:00: both eyes [place] 0.05 % 00 every 12 Medical drops (twelve) Branch hours. cycloSPORIN 2022-0 Yes [id number] 1[drp] Place 1 [facility] E 9-05 Drop in ity of (RESTASIS) 00:00: both eyes [place] 0.05 % 00 every 12 Medical drops (twelve) Branch hours. cycloSPORIN 2022-0 Yes [id number] 1[drp] Place 1 [facility] E 9-05 Drop in ity of (RESTASIS) 00:00: both eyes [place] 0.05 % 00 every 12 Medical drops (twelve) Branch hours. cycloSPORIN 2-0 Yes [id number] 1[drp] Place 1 [facility] E 9-05 Drop in ity of (RESTASIS) 00:00: both eyes [place] 0.05 % 00 every 12 Medical drops (twelve) Branch hours. cycloSPORIN 2022-0 Yes [id number] 1[drp] Place 1 [facility] E 9-05 Drop in ity of (RESTASIS) 00:00: both eyes [place] 0.05 % 00 every 12 Medical drops (twelve) Branch hours. cycloSPORIN 2022-0 Yes [id number] 1[drp] Place 1 [facility] E 9-05 Drop in ity of (RESTASIS) 00:00: both eyes [place] 0.05 % 00 every 12 Medical drops (twelve) Branch hours. cycloSPORIN 2022-0 Yes [id number] 1[drp] Place 1 [facility] E 9-05 Drop in ity of (RESTASIS) 00:00: both eyes [place] 0.05 % 00 every 12 Medical drops (twelve) Branch hours. cycloSPORIN 2022-0 Yes [id number] 1[drp] Place 1 [facility] E 9-05 Drop in ity of (RESTASIS) 00:00: both eyes [place] 0.05 % 00 every 12 Medical drops (twelve) Branch hours. cycloSPORIN 2022-0 Yes [id number] 1[drp] Place 1 [facility] E 9-05 Drop in ity of (RESTASIS) 00:00: both eyes [place] 0.05 % 00 every 12 Medical drops (twelve) Branch hours. cycloSPORIN 2022-0 Yes [id number] 1[drp] Place 1 [facility] E 9-05 Drop in ity of (RESTASIS) 00:00: both eyes [place] 0.05 % 00 every 12 Medical drops (twelve) Branch hours. cycloSPORIN 2022-0 Yes [id number] 1[drp] Place 1 [facility] E 9-05 Drop in ity of (RESTASIS) 00:00: both eyes [place] 0.05 % 00 every 12 Medical drops (twelve) Branch hours. cycloSPORIN 2022-0 Yes [id number] 1[drp] Place 1 [facility] E 9-05 Drop in ity of (RESTASIS) 00:00: both eyes [place] 0.05 % 00 every 12 Medical drops (twelve) Branch hours. cycloSPORIN 2022-0 Yes [id number] 1[drp] Place 1 [facility] E 9-05 Drop in ity of (RESTASIS) 00:00: both eyes [place] 0.05 % 00 every 12 Medical drops (twelve) Branch hours. cycloSPORIN 2022-0 Yes [id number] 1[drp] Place 1 [facility] E 9-05 Drop in ity of (RESTASIS) 00:00: both eyes [place] 0.05 % 00 every 12 Medical drops (twelve) Branch hours. cycloSPORIN 2022-0 Yes [id number] 1[drp] Place 1 [facility] E 9-05 Drop in ity of (RESTASIS) 00:00: both eyes [place] 0.05 % 00 every 12 Medical drops (twelve) Branch hours. cycloSPORIN 2022-0 Yes [id number] 1[drp] Place 1 [facility] E 9-05 Drop in ity of (RESTASIS) 00:00: both eyes [place] 0.05 % 00 every 12 Medical drops (twelve) Branch hours. cycloSPORIN 2022-0 Yes [id number] 1[drp] Place 1 [facility] E 9-05 Drop in ity of (RESTASIS) 00:00: both eyes [place] 0.05 % 00 every 12 Medical drops (twelve) Branch hours. cycloSPORIN 2022-0 Yes [id number] 1[drp] Place 1 [facility] E 9-05 Drop in ity of (RESTASIS) 00:00: both eyes [place] 0.05 % 00 every 12 Medical drops (twelve) Branch hours. cycloSPORIN 2022-0 Yes [id number] 1[drp] Place 1 [facility] E 9-05 Drop in ity of (RESTASIS) 00:00: both eyes [place] 0.05 % 00 every 12 Medical drops (twelve) Branch hours. cycloSPORIN 2022-0 Yes [id number] 1[drp] Place 1 [facility] E 9-05 Drop in ity of (RESTASIS) 00:00: both eyes [place] 0.05 % 00 every 12 Medical drops (twelve) Branch hours. cycloSPORIN 2022-0 Yes [id number] 1[drp] Place 1 [facility] E 9-05 Drop in ity of (RESTASIS) 00:00: both eyes [place] 0.05 % 00 every 12 Medical drops (twelve) Branch hours. cycloSPORIN 2022-0 Yes [id number] 1[drp] Place 1 [facility] E 9-05 Drop in ity of (RESTASIS) 00:00: both eyes [place] 0.05 % 00 every 12 Medical drops (twelve) Branch hours. cycloSPORIN 2022-0 Yes [id number] 1[drp] Place 1 [facility] E 9-05 Drop in ity of (RESTASIS) 00:00: both eyes [place] 0.05 % 00 every 12 Medical drops (twelve) Branch hours. cycloSPORIN 2022-0 Yes [id number] 1[drp] Place 1 [facility] E 9-05 Drop in ity of (RESTASIS) 00:00: both eyes [place] 0.05 % 00 every 12 Medical drops (twelve) Branch hours. cycloSPORIN 2022-0 Yes [id number] 1[drp] Place 1 [facility] E 9-05 Drop in ity of (RESTASIS) 00:00: both eyes [place] 0.05 % 00 every 12 Medical drops (twelve) Branch hours. cycloSPORIN 2022-0 Yes [id number] 1[drp] Place 1 [facility] E 9-05 Drop in ity of (RESTASIS) 00:00: both eyes [place] 0.05 % 00 every 12 Medical drops (twelve) Branch hours. cycloSPORIN 2022-0 Yes [id number] 1[drp] Place 1 [facility] E 9-05 Drop in ity of (RESTASIS) 00:00: both eyes [place] 0.05 % 00 every 12 Medical drops (twelve) Branch hours. cycloSPORIN 2022-0 Yes [id number] 1[drp] Place 1 [facility] E 9-05 Drop in ity of (RESTASIS) 00:00: both eyes [place] 0.05 % 00 every 12 Medical drops (twelve) Branch hours. cycloSPORIN 2022-0 Yes [id number] 1[drp] Place 1 [facility] E 9-05 Drop in ity of (RESTASIS) 00:00: both eyes [place] 0.05 % 00 every 12 Medical drops (twelve) Branch hours. cycloSPORIN 2022-0 Yes [id number] 1[drp] Place 1 [facility] E 9-05 Drop in ity of (RESTASIS) 00:00: both eyes [place] 0.05 % 00 every 12 Medical drops (twelve) Branch hours. cycloSPORIN 2022-0 Yes [id number] 1[drp] Place 1 [facility] E 9-05 Drop in ity of (RESTASIS) 00:00: both eyes [place] 0.05 % 00 every 12 Medical drops (twelve) Branch hours. cycloSPORIN 2022-0 Yes [id number] 1[drp] Place 1 [facility] E 9-05 Drop in ity of (RESTASIS) 00:00: both eyes [place] 0.05 % 00 every 12 Medical drops (twelve) Branch hours. cycloSPORIN 2022-0 Yes [id number] 1[drp] Place 1 [facility] E 9-05 Drop in ity of (RESTASIS) 00:00: both eyes [place] 0.05 % 00 every 12 Medical drops (twelve) Branch hours. cycloSPORIN 2022-0 Yes [id number] 1[drp] Place 1 [facility] E 9-05 Drop in ity of (RESTASIS) 00:00: both eyes [place] 0.05 % 00 every 12 Medical drops (twelve) Branch hours. cycloSPORIN 2022-0 Yes [id number] 1[drp] Place 1 [facility] E 9-05 Drop in ity of (RESTASIS) 00:00: both eyes [place] 0.05 % 00 every 12 Medical drops (twelve) Branch hours. cycloSPORIN 2022-0 Yes [id number] 1[drp] Place 1 [facility] E 9-05 Drop in ity of (RESTASIS) 00:00: both eyes [place] 0.05 % 00 every 12 Medical drops (twelve) Branch hours. cycloSPORIN 2022-0 Yes [id number] 1[drp] Place 1 [facility] E 9-05 Drop in ity of (RESTASIS) 00:00: both eyes [place] 0.05 % 00 every 12 Medical drops (twelve) Branch hours. cycloSPORIN 2022-0 Yes [id number] 1[drp] Place 1 [facility] E 9-05 Drop in ity of (RESTASIS) 00:00: both eyes [place] 0.05 % 00 every 12 Medical drops (twelve) Branch hours. cycloSPORIN 2022-0 Yes [id number] 1[drp] Place 1 [facility] E 9-05 Drop in ity of (RESTASIS) 00:00: both eyes [place] 0.05 % 00 every 12 Medical drops (twelve) Branch hours. cycloSPORIN 2022-0 Yes [id number] 1[drp] Place 1 [facility] E 9-05 Drop in ity of (RESTASIS) 00:00: both eyes [place] 0.05 % 00 every 12 Medical drops (twelve) Branch hours. cycloSPORIN 2022-0 Yes [id number] 1[drp] Place 1 [facility] E 9-05 Drop in ity of (RESTASIS) 00:00: both eyes [place] 0.05 % 00 every 12 Medical drops (twelve) Branch hours. cycloSPORIN 2022-0 Yes [id number] 1[drp] Place 1 [facility] E 9-05 Drop in ity of (RESTASIS) 00:00: both eyes [place] 0.05 % 00 every 12 Medical drops (twelve) Branch hours. cycloSPORIN 2022-0 Yes [id number] 1[drp] Place 1 [facility] E 9-05 Drop in ity of (RESTASIS) 00:00: both eyes [place] 0.05 % 00 every 12 Medical drops (twelve) Branch hours. cycloSPORIN 2022-0 Yes [id number] 1[drp] Place 1 [facility] E 9-05 Drop in ity of (RESTASIS) 00:00: both eyes [place] 0.05 % 00 every 12 Medical drops (twelve) Branch hours. cycloSPORIN 2022-0 Yes [id number] 1[drp] Place 1 [facility] E 9-05 Drop in ity of (RESTASIS) 00:00: both eyes [place] 0.05 % 00 every 12 Medical drops (twelve) Branch hours. cycloSPORIN 2021-0 Yes [id number] 1[drp] Place 1 [facility] E 9-05 Drop in ity of (RESTASIS) 00:00: both eyes [place] 0.05 % 00 every 12 Medical drops (twelve) Branch hours. cycloSPORIN 2021-0 Yes [id number] 1[drp] Place 1 [facility] E 9-05 Drop in ity of (RESTASIS) 00:00: both eyes [place] 0.05 % 00 every 12 Medical drops (twelve) Branch hours. cycloSPORIN 0 2023- No [id number] 1[drp] Place 1 [facility] E 9-05 07-19 Drop in ity of (RESTASIS) 00:00: 00:00 both eyes [place] 0.05 % 00 :00 every 12 Medical drops (twelve) Branch hours. cyanocobala Yes [id number] 1000ug 1 mL by [facility] min 1,000 8-31 Intramuscu ity of mcg/mL 00:00: lar route [place] injection 00 once every [facility] month. Branch metoprolol 0 Yes [id number] TAKE 1 U nivers tartrate 25 8-31 TABLET BY ity of mg tablet 00:00: MOUTH [place] 00 TWICE Medical DAILY AT Branch 6AM AND 6PM Fluticasone 2021-0 Yes [id number] 1{puff} Inhale 1 [facility] -Salmeterol 8-31 Puff every it y of (ADVAIR 00:00: 12 [place] DISKUS) 00 (twelve) Medical 500-50 hours. Branch mcg/dose inhalation disk ranitidine 2021-0 Yes [id number] 150mg Take 1 [facility] 150 mg 8-31 tablet by ity of tablet 00:00: mouth in [place] 00 the Medical morning Branch and 1 tablet in the evening. cyanocobala 2021-0 Yes [id number] 1000ug 1 mL by [facility] min 1,000 8-31 Intramuscu ity of mcg/mL 00:00: lar route [place] injection 00 once every [facility] month. Branch metoprolol 2021-0 Yes [id number] TAKE 1 U nivers tartrate 25 8-31 TABLET BY ity of mg tablet 00:00: MOUTH [place] 00 TWICE Medical DAILY AT Branch 6AM AND 6PM Fluticasone 2021-0 Yes [id number] 1{puff} Inhale 1 [facility] -Salmeterol 8-31 Puff every it y of (ADVAIR 00:00: 12 [place] DISKUS) 00 (twelve) Medical 500-50 hours. Branch mcg/dose inhalation disk ranitidine 2021-0 Yes [id number] 150mg Take 1 [facility] 150 mg 8-31 tablet by ity of tablet 00:00: mouth in [place] 00 the Medical morning Branch and 1 tablet in the evening. cyanocobala 2021-0 Yes [id number] 1000ug 1 mL by [facility] min 1,000 8-31 Intramuscu ity of mcg/mL 00:00: lar route [place] injection 00 once every [facility] month. Branch metoprolol 2021-0 Yes [id number] TAKE 1 U nivers tartrate 25 8-31 TABLET BY ity of mg tablet 00:00: MOUTH [place] 00 TWICE Medical DAILY AT Branch 6AM AND 6PM Fluticasone 2021-0 Yes [id number] 1{puff} Inhale 1 [facility] -Salmeterol 8-31 Puff every it y of (ADVAIR 00:00: 12 [place] DISKUS) 00 (twelve) Medical 500-50 hours. Branch mcg/dose inhalation disk ranitidine 2021-0 Yes [id number] 150mg Take 1 [facility] 150 mg 8-31 tablet by ity of tablet 00:00: mouth in [place] 00 the Medical morning Branch and 1 tablet in the evening. cyanocobala 2021-0 Yes [id number] 1000ug 1 mL by [facility] min 1,000 8-31 Intramuscu ity of mcg/mL 00:00: lar route [place] injection 00 once every [facility] month. Branch metoprolol 2021-0 Yes [id number] TAKE 1 U nivers tartrate 25 8-31 TABLET BY ity of mg tablet 00:00: MOUTH [place] 00 TWICE Medical DAILY AT Branch 6AM AND 6PM Fluticasone 2021-0 Yes [id number] 1{puff} Inhale 1 [facility] -Salmeterol 8-31 Puff every it y of (ADVAIR 00:00: 12 [place] DISKUS) 00 (twelve) Medical 500-50 hours. Branch mcg/dose inhalation disk ranitidine 2021-0 Yes [id number] 150mg Take 1 [facility] 150 mg 8-31 tablet by ity of tablet 00:00: mouth in [place] 00 the Medical morning Branch and 1 tablet in the evening. cyanocobala 2021-0 Yes [id number] 1000ug 1 mL by [facility] min 1,000 8-31 Intramuscu ity of mcg/mL 00:00: lar route [place] injection 00 once every [facility] month. Branch metoprolol 2021-0 Yes [id number] TAKE 1 U nivers tartrate 25 8-31 TABLET BY ity of mg tablet 00:00: MOUTH [place] 00 TWICE Medical DAILY AT Branch 6AM AND 6PM Fluticasone 202-0 Yes [id number] 1{puff} Inhale 1 [facility] -Salmeterol 8-31 Puff every it y of (ADVAIR 00:00: 12 [place] DISKUS) 00 (twelve) Medical 500-50 hours. Branch mcg/dose inhalation disk ranitidine 2021-0 Yes [id number] 150mg Take 1 [facility] 150 mg 8-31 tablet by ity of tablet 00:00: mouth in [place] 00 the Medical morning Branch and 1 tablet in the evening. cyanocobala 2021-0 Yes [id number] 1000ug 1 mL by [facility] min 1,000 8-31 Intramuscu ity of mcg/mL 00:00: lar route [place] injection 00 once every [facility] month. Branch metoprolol 2021-0 Yes [id number] TAKE 1 U nivers tartrate 25 8-31 TABLET BY ity of mg tablet 00:00: MOUTH [place] 00 TWICE Medical DAILY AT Branch 6AM AND 6PM Fluticasone 2021-0 Yes [id number] 1{puff} Inhale 1 [facility] -Salmeterol 8-31 Puff every it y of (ADVAIR 00:00: 12 [place] DISKUS) 00 (twelve) Medical 500-50 hours. Branch mcg/dose inhalation disk ranitidine 2021-0 Yes [id number] 150mg Take 1 [facility] 150 mg 8-31 tablet by ity of tablet 00:00: mouth in [place] 00 the Medical morning Branch and 1 tablet in the evening. cyanocobala 2021-0 Yes [id number] 1000ug 1 mL by [facility] min 1,000 8-31 Intramuscu ity of mcg/mL 00:00: lar route [place] injection 00 once every [facility] month. Branch metoprolol 2021-0 Yes [id number] TAKE 1 U nivers tartrate 25 8-31 TABLET BY ity of mg tablet 00:00: MOUTH [place] 00 TWICE Medical DAILY AT Branch 6AM AND 6PM Fluticasone 2021-0 Yes [id number] 1{puff} Inhale 1 [facility] -Salmeterol 8-31 Puff every it y of (ADVAIR 00:00: 12 [place] DISKUS) 00 (twelve) Medical 500-50 hours. Branch mcg/dose inhalation disk ranitidine 2021-0 Yes [id number] 150mg Take 1 [facility] 150 mg 8-31 tablet by ity of tablet 00:00: mouth in [place] 00 the Medical morning Branch and 1 tablet in the evening. cyanocobala 2021-0 Yes [id number] 1000ug 1 mL by [facility] min 1,000 8-31 Intramuscu ity of mcg/mL 00:00: lar route [place] injection 00 once every Medi tee month. Branch metoprolol 2021-0 Yes [id number] TAKE 1 U nivers tartrate 25 8-31 TABLET BY ity of mg tablet 00:00: MOUTH [place] 00 TWICE Medical DAILY AT Branch 6AM AND 6PM Fluticasone 2021-0 Yes [id number] 1{puff} Inhale 1 [facility] -Salmeterol 8-31 Puff every it y of (ADVAIR 00:00: 12 [place] DISKUS) 00 (twelve) Medical 500-50 hours. Branch mcg/dose inhalation disk ranitidine 2021-0 Yes [id number] 150mg Take 1 [facility] 150 mg 8-31 tablet by ity of tablet 00:00: mouth in [place] 00 the Medical morning Branch and 1 tablet in the evening. cyanocobala 2021-0 Yes [id number] 1000ug 1 mL by [facility] min 1,000 8-31 Intramuscu ity of mcg/mL 00:00: lar route [place] injection 00 once every Medi tee month. Branch metoprolol 2021-0 Yes [id number] TAKE 1 U nivers tartrate 25 8-31 TABLET BY ity of mg tablet 00:00: MOUTH [place] 00 TWICE Medical DAILY AT Branch 6AM AND 6PM Fluticasone 2-0 Yes [id number] 1{puff} Inhale 1 [facility] -Salmeterol 8-31 Puff every it y of (ADVAIR 00:00: 12 [place] DISKUS) 00 (twelve) Medical 500-50 hours. Branch mcg/dose inhalation disk ranitidine 2021-0 Yes [id number] 150mg Take 1 [facility] 150 mg 8-31 tablet by ity of tablet 00:00: mouth in [place] 00 the Medical morning Branch and 1 tablet in the evening. cyanocobala 2-0 Yes [id number] 1000ug 1 mL by [facility] min 1,000 8-31 Intramuscu ity of mcg/mL 00:00: lar route [place] injection 00 once every [facility] month. Branch metoprolol 2-0 Yes [id number] TAKE 1 U nivers tartrate 25 8-31 TABLET BY ity of mg tablet 00:00: MOUTH [place] 00 TWICE Medical DAILY AT Branch 6AM AND 6PM Fluticasone 2021-0 Yes [id number] 1{puff} Inhale 1 [facility] -Salmeterol 8-31 Puff every it y of (ADVAIR 00:00: 12 [place] DISKUS) 00 (twelve) Medical 500-50 hours. Branch mcg/dose inhalation disk ranitidine 2021-0 Yes [id number] 150mg Take 1 [facility] 150 mg 8-31 tablet by ity of tablet 00:00: mouth in [place] 00 the Medical morning Branch and 1 tablet in the evening. cyanocobala 2021-0 Yes [id number] 1000ug 1 mL by [facility] min 1,000 8-31 Intramuscu ity of mcg/mL 00:00: lar route [place] injection 00 once every [facility] month. Branch metoprolol 2-0 Yes [id number] TAKE 1 U nivers tartrate 25 8-31 TABLET BY ity of mg tablet 00:00: MOUTH [place] 00 TWICE Medical DAILY AT Branch 6AM AND 6PM Fluticasone 2022-0 Yes [id number] 1{puff} Inhale 1 [facility] -Salmeterol 8-31 Puff every it y of (ADVAIR 00:00: 12 [place] DISKUS) 00 (twelve) Medical 500-50 hours. Branch mcg/dose inhalation disk ranitidine 2-0 Yes [id number] 150mg Take 1 [facility] 150 mg 8-31 tablet by [facility] of tablet 00:00: mouth in [place] 00 the Medical morning Branch and 1 tablet in the evening. cyanocobala 2-0 Yes [id number] 1000ug 1 mL by [facility] min 1,000 8-31 [facility] of mcg/mL 00:00: lar route [place] injection 00 once every [facility] month. Branch metoprolol 2021-0 Yes [id number] TAKE 1 U nivers tartrate 25 8-31 TABLET BY ity of mg tablet 00:00: MOUTH [place] 00 TWICE Medical DAILY AT Branch 6AM AND 6PM Fluticasone 2021-0 Yes [id number] 1{puff} Inhale 1 [facility] -Salmeterol 8-31 Puff every it y of (ADVAIR 00:00: 12 [place] DISKUS) 00 (twelve) Medical 500-50 hours. Branch mcg/dose inhalation disk ranitidine 2021-0 Yes [id number] 150mg Take 1 [facility] 150 mg 8-31 tablet by it[facility] of tablet 00:00: mouth in [place] 00 the Medical morning Branch and 1 tablet in the evening. cyanocobala 2021-0 Yes [id number] 1000ug 1 mL by [facility] min 1,000 8-31 [facility] of mcg/mL 00:00: lar route [place] injection 00 once every [facility] month. Branch metoprolol 2021-0 Yes [id number] TAKE 1 U nivers tartrate 25 8-31 TABLET BY ity of mg tablet 00:00: MOUTH [place] 00 TWICE Medical DAILY AT Branch 6AM AND 6PM Fluticasone 2021-0 Yes [id number] 1{puff} Inhale 1 [facility] -Salmeterol 8-31 Puff every it y of (ADVAIR 00:00: 12 [place] DISKUS) 00 (twelve) Medical 500-50 hours. Branch mcg/dose inhalation disk ranitidine 2021-0 Yes [id number] 150mg Take 1 [facility] 150 mg 8-31 tablet by ity of tablet 00:00: mouth in [place] 00 the Medical morning Branch and 1 tablet in the evening. cyanocobala 2021-0 Yes [id number] 1000ug 1 mL by [facility] min 1,000 8-31 [facility] of mcg/mL 00:00: lar route [place] injection 00 once every [facility] month. Branch metoprolol 2021-0 Yes [id number] TAKE 1 U nivers tartrate 25 8-31 TABLET BY ity of mg tablet 00:00: MOUTH [place] 00 TWICE Medical DAILY AT Branch 6AM AND 6PM Fluticasone 2021-0 Yes [id number] 1{puff} Inhale 1 [facility] -Salmeterol 8-31 Puff every it y of (ADVAIR 00:00: 12 [place] DISKUS) 00 (twelve) Medical 500-50 hours. Branch mcg/dose inhalation disk ranitidine 2021-0 Yes [id number] 150mg Take 1 [facility] 150 mg 8-31 tablet by ity of tablet 00:00: mouth in [place] 00 the Medical morning Branch and 1 tablet in the evening. cyanocobala 2021-0 Yes [id number] 1000ug 1 mL by [facility] min 1,000 8-31 [facility] of mcg/mL 00:00: lar route [place] injection 00 once every [facility] month. Branch metoprolol 2021-0 Yes [id number] TAKE 1 U nivers tartrate 25 8-31 TABLET BY ity of mg tablet 00:00: MOUTH [place] 00 TWICE Medical DAILY AT Branch 6AM AND 6PM Fluticasone 2021-0 Yes [id number] 1{puff} Inhale 1 [facility] -Salmeterol 8-31 Puff every it y of (ADVAIR 00:00: 12 [place] DISKUS) 00 (twelve) Medical 500-50 hours. Branch mcg/dose inhalation disk ranitidine 2021-0 Yes [id number] 150mg Take 1 [facility] 150 mg 8-31 tablet by ity of tablet 00:00: mouth in [place] 00 the Medical morning Branch and 1 tablet in the evening. cyanocobala 2021-0 Yes [id number] 1000ug 1 mL by [facility] min 1,000 8-31 [facility] of mcg/mL 00:00: lar route [place] injection 00 once every [facility] month. Branch metoprolol 2021-0 Yes [id number] TAKE 1 U nivers tartrate 25 8-31 TABLET BY ity of mg tablet 00:00: MOUTH [place] 00 TWICE Medical DAILY AT Branch 6AM AND 6PM Fluticasone 2021-0 Yes [id number] 1{puff} Inhale 1 [facility] -Salmeterol 8-31 Puff every it y of (ADVAIR 00:00: 12 [place] DISKUS) 00 (twelve) Medical 500-50 hours. Branch mcg/dose inhalation disk ranitidine 2021-0 Yes [id number] 150mg Take 1 [facility] 150 mg 8-31 tablet by ity of tablet 00:00: mouth in [place] 00 the Medical morning Branch and 1 tablet in the evening. cyanocobala 2021-0 Yes [id number] 1000ug 1 mL by [facility] min 1,000 8-31 [facility] of mcg/mL 00:00: lar route [place] injection 00 once every [facility] month. Branch metoprolol 2021-0 Yes [id number] TAKE 1 U nivers tartrate 25 8-31 TABLET BY ity of mg tablet 00:00: MOUTH [place] 00 TWICE Medical DAILY AT [place] 6AM AND 6PM Fluticasone 2022-0 Yes [id number] 1{puff} Inhale 1 [facility] -Salmeterol 8-31 Puff every it y of (ADVAIR 00:00: 12 [place] DISKUS) 00 (twelve) Medical 500-50 hours. Branch mcg/dose inhalation disk ranitidine 2021-0 Yes [id number] 150mg Take 1 [facility] 150 mg 8-31 tablet by ity of tablet 00:00: mouth in [place] 00 the Medical morning [place] and 1 tablet in the evening. cyanocobala 2021-0 Yes [id number] 1000ug 1 mL by [facility] min 1,000 8-31 [facility] ity of mcg/mL 00:00: lar route [place] injection 00 once every [facility] month. Branch metoprolol 2021-0 Yes [id number] TAKE 1 U nivers tartrate 25 8-31 TABLET BY ity of mg tablet 00:00: MOUTH [place] 00 TWICE Medical DAILY AT [place] 6AM AND 6PM Fluticasone 202-0 Yes [id number] 1{puff} Inhale 1 [facility] -Salmeterol 8-31 Puff every it y of (ADVAIR 00:00: 12 [place] DISKUS) 00 (twelve) Medical 500-50 hours. Branch mcg/dose inhalation disk ranitidine 2021-0 Yes [id number] 150mg Take 1 [facility] 150 mg 8-31 tablet by ity of tablet 00:00: mouth in [place] 00 the Medical morning Branch and 1 tablet in the evening. cyanocobala 2021-0 Yes [id number] 1000ug 1 mL by [facility] min 1,000 8-31 [facility]y of mcg/mL 00:00: lar route [place] injection 00 once every [facility] month. Branch metoprolol 2021-0 Yes [id number] TAKE 1 U nivers tartrate 25 8-31 TABLET BY ity of mg tablet 00:00: MOUTH [place] 00 TWICE Medical DAILY AT Branch 6AM AND 6PM Fluticasone 2021-0 Yes [id number] 1{puff} Inhale 1 [facility] -Salmeterol 8-31 Puff every it y of (ADVAIR 00:00: 12 [place] DISKUS) 00 (twelve) Medical 500-50 hours. Branch mcg/dose inhalation disk ranitidine 2021-0 Yes [id number] 150mg Take 1 [facility] 150 mg 8-31 tablet by ity of tablet 00:00: mouth in [place] 00 the Medical morning Branch and 1 tablet in the evening. cyanocobala 2021-0 Yes [id number] 1000ug 1 mL by [facility] min 1,000 8-31 [facility]y of mcg/mL 00:00: lar route [place] injection 00 once every [facility] month. Branch metoprolol 2021-0 Yes [id number] TAKE 1 U nivers tartrate 25 8-31 TABLET BY ity of mg tablet 00:00: MOUTH [place] 00 TWICE Medical DAILY AT Branch 6AM AND 6PM Fluticasone 2021-0 Yes [id number] 1{puff} Inhale 1 [facility] -Salmeterol 8-31 Puff every it y of (ADVAIR 00:00: 12 [place] DISKUS) 00 (twelve) Medical 500-50 hours. Branch mcg/dose inhalation disk ranitidine 2021-0 Yes [id number] 150mg Take 1 [facility] 150 mg 8-31 tablet by ity of tablet 00:00: mouth in [place] 00 the Medical morning Branch and 1 tablet in the evening. cyanocobala 2021-0 Yes [id number] 1000ug 1 mL by [facility] min 1,000 8-31 [facility]y of mcg/mL 00:00: lar route [place] injection 00 once every [facility] month. Branch metoprolol 2021-0 Yes [id number] TAKE 1 U nivers tartrate 25 8-31 TABLET BY ity of mg tablet 00:00: MOUTH [place] 00 TWICE Medical DAILY AT Branch 6AM AND 6PM Fluticasone 2021-0 Yes [id number] 1{puff} Inhale 1 [facility] -Salmeterol 8-31 Puff every it y of (ADVAIR 00:00: 12 [place] DISKUS) 00 (twelve) Medical 500-50 hours. Branch mcg/dose inhalation disk ranitidine 2021-0 Yes [id number] 150mg Take 1 [facility] 150 mg 8-31 tablet by ity of tablet 00:00: mouth in [place] 00 the Medical morning Branch and 1 tablet in the evening. cyanocobala 2021-0 Yes [id number] 1000ug 1 mL by [facility] min 1,000 8-31 [facility]y of mcg/mL 00:00: lar route [place] injection 00 once every [facility] month. Branch metoprolol 2021-0 Yes [id number] TAKE 1 U nivers tartrate 25 8-31 TABLET BY ity of mg tablet 00:00: MOUTH [place] 00 TWICE Medical DAILY AT Branch 6AM AND 6PM Fluticasone 2021-0 Yes [id number] 1{puff} Inhale 1 [facility] -Salmeterol 8-31 Puff every it y of (ADVAIR 00:00: 12 [place] DISKUS) 00 (twelve) Medical 500-50 hours. Branch mcg/dose inhalation disk ranitidine 2021-0 Yes [id number] 150mg Take 1 [facility] 150 mg 8-31 tablet by ity of tablet 00:00: mouth in [place] 00 the Medical morning Branch and 1 tablet in the evening. cyanocobala 2021-0 Yes [id number] 1000ug 1 mL by [facility] min 1,000 8-31 [facility] ity of mcg/mL 00:00: lar route [place] injection 00 once every [facility] month. Branch metoprolol 2-0 Yes [id number] TAKE 1 U nivers tartrate 25 8-31 TABLET BY ity of mg tablet 00:00: MOUTH [place] 00 TWICE Medical DAILY AT Branch 6AM AND 6PM Fluticasone 2021-0 Yes [id number] 1{puff} Inhale 1 [facility] -Salmeterol 8-31 Puff every it y of (ADVAIR 00:00: 12 [place] DISKUS) 00 (twelve) Medical 500-50 hours. Branch mcg/dose inhalation disk ranitidine 2-0 Yes [id number] 150mg Take 1 [facility] 150 mg 8-31 tablet by ity of tablet 00:00: mouth in [place] 00 the Medical morning Branch and 1 tablet in the evening. cyanocobala 2-0 Yes [id number] 1000ug 1 mL by [facility] min 1,000 8-31 [facility] ity of mcg/mL 00:00: lar route [place] injection 00 once every [facility] month. Branch metoprolol 2021-0 Yes [id number] TAKE 1 U nivers tartrate 25 8-31 TABLET BY ity of mg tablet 00:00: MOUTH [place] 00 TWICE Medical DAILY AT Branch 6AM AND 6PM Fluticasone 202-0 Yes [id number] 1{puff} Inhale 1 [facility] -Salmeterol 8-31 Puff every it y of (ADVAIR 00:00: 12 [place] DISKUS) 00 (twelve) Medical 500-50 hours. Branch mcg/dose inhalation disk ranitidine 2021-0 Yes [id number] 150mg Take 1 [facility] 150 mg 8-31 tablet by ity of tablet 00:00: mouth in [place] 00 the Medical morning Branch and 1 tablet in the evening. cyanocobala 2021-0 Yes [id number] 1000ug 1 mL by [facility] min 1,000 8-31 Intr[facility] ity of mcg/mL 00:00: lar route [place] injection 00 once every [facility] month. Branch metoprolol 2021-0 Yes [id number] TAKE 1 U nivers tartrate 25 8-31 TABLET BY ity of mg tablet 00:00: MOUTH [place] 00 TWICE Medical DAILY AT Branch 6AM AND 6PM Fluticasone 2021-0 Yes [id number] 1{puff} Inhale 1 [facility] -Salmeterol 8-31 Puff every it y of (ADVAIR 00:00: 12 [place] DISKUS) 00 (twelve) Medical 500-50 hours. Branch mcg/dose inhalation disk ranitidine 2021-0 Yes [id number] 150mg Take 1 [facility] 150 mg 8-31 tablet by ity of tablet 00:00: mouth in [place] 00 the Medical morning Branch and 1 tablet in the evening. cyanocobala 2021-0 Yes [id number] 1000ug 1 mL by [facility] min 1,000 8-31 [facility] ity of mcg/mL 00:00: lar route [place] injection 00 once every [facility] month. Branch metoprolol 2021-0 Yes [id number] TAKE 1 U nivers tartrate 25 8-31 TABLET BY ity of mg tablet 00:00: MOUTH [place] 00 TWICE Medical DAILY AT Branch 6AM AND 6PM Fluticasone 2021-0 Yes [id number] 1{puff} Inhale 1 [facility] -Salmeterol 8-31 Puff every it y of (ADVAIR 00:00: 12 [place] DISKUS) 00 (twelve) Medical 500-50 hours. Branch mcg/dose inhalation disk ranitidine 2021-0 Yes [id number] 150mg Take 1 [facility] 150 mg 8-31 tablet by ity of tablet 00:00: mouth in [place] 00 the Medical morning Branch and 1 tablet in the evening. cyanocobala 2021-0 Yes [id number] 1000ug 1 mL by [facility] min 1,000 8-31 [facility] ity of mcg/mL 00:00: lar route [place] injection 00 once every [facility] month. Branch metoprolol 2021-0 Yes [id number] TAKE 1 U nivers tartrate 25 8-31 TABLET BY ity of mg tablet 00:00: MOUTH [place] 00 TWICE Medical DAILY AT Branch 6AM AND 6PM Fluticasone 2021-0 Yes [id number] 1{puff} Inhale 1 [facility] -Salmeterol 8-31 Puff every it y of (ADVAIR 00:00: 12 [place] DISKUS) 00 (twelve) Medical 500-50 hours. Branch mcg/dose inhalation disk ranitidine 2021-0 Yes [id number] 150mg Take 1 [facility] 150 mg 8-31 tablet by ity of tablet 00:00: mouth in [place] 00 the Medical morning Branch and 1 tablet in the evening. cyanocobala 2021-0 Yes [id number] 1000ug 1 mL by [facility] min 1,000 8-31 Intr[facility] ity of mcg/mL 00:00: lar route [place] injection 00 once every [facility] month. Branch metoprolol 2021-0 Yes [id number] TAKE 1 U nivers tartrate 25 8-31 TABLET BY ity of mg tablet 00:00: MOUTH [place] 00 TWICE Medical DAILY AT Branch 6AM AND 6PM Fluticasone 2021-0 Yes [id number] 1{puff} Inhale 1 [facility] -Salmeterol 8-31 Puff every it y of (ADVAIR 00:00: 12 [place] DISKUS) 00 (twelve) Medical 500-50 hours. Branch mcg/dose inhalation disk ranitidine 2021-0 Yes [id number] 150mg Take 1 [facility] 150 mg 8-31 tablet by ity of tablet 00:00: mouth in [place] 00 the Medical morning Branch and 1 tablet in the evening. cyanocobala 2021-0 Yes [id number] 1000ug 1 mL by [facility] min 1,000 8-31 Intr[facility] ity of mcg/mL 00:00: lar route [place] injection 00 once every [facility] month. Branch metoprolol 2021-0 Yes [id number] TAKE 1 U nivers tartrate 25 8-31 TABLET BY ity of mg tablet 00:00: MOUTH [place] 00 TWICE Medical DAILY AT Branch 6AM AND 6PM Fluticasone 2021-0 Yes [id number] 1{puff} Inhale 1 [facility] -Salmeterol 8-31 Puff every it y of (ADVAIR 00:00: 12 [place] DISKUS) 00 (twelve) Medical 500-50 hours. Branch mcg/dose inhalation disk ranitidine 2021-0 Yes [id number] 150mg Take 1 [facility] 150 mg 8-31 tablet by ity of tablet 00:00: mouth in [place] 00 the Medical morning Branch and 1 tablet in the evening. cyanocobala 2021-0 Yes [id number] 1000ug 1 mL by [facility] min 1,000 8-31 Intr[facility] ity of mcg/mL 00:00: lar route [place] injection 00 once every [facility] month. Branch metoprolol 2021-0 Yes [id number] TAKE 1 U nivers tartrate 25 8-31 TABLET BY ity of mg tablet 00:00: MOUTH [place] 00 TWICE Medical DAILY AT Branch 6AM AND 6PM Fluticasone 2021-0 Yes [id number] 1{puff} Inhale 1 [facility] -Salmeterol 8-31 Puff every it y of (ADVAIR 00:00: 12 [place] DISKUS) 00 (twelve) Medical 500-50 hours. Branch mcg/dose inhalation disk ranitidine 2021-0 Yes [id number] 150mg Take 1 [facility] 150 mg 8-31 tablet by ity of tablet 00:00: mouth in [place] 00 the Medical morning Branch and 1 tablet in the evening. cyanocobala 2021-0 Yes [id number] 1000ug 1 mL by [facility] min 1,000 8-31 Intr[facility] ity of mcg/mL 00:00: lar route [place] injection 00 once every [facility] month. Branch metoprolol 2021-0 Yes [id number] TAKE 1 U nivers tartrate 25 8-31 TABLET BY ity of mg tablet 00:00: MOUTH [place] 00 TWICE Medical DAILY AT Branch 6AM AND 6PM Fluticasone 202-0 Yes [id number] 1{puff} Inhale 1 [facility] -Salmeterol 8-31 Puff every it y of (ADVAIR 00:00: 12 [place] DISKUS) 00 (twelve) Medical 500-50 hours. Branch mcg/dose inhalation disk ranitidine 2021-0 Yes [id number] 150mg Take 1 [facility] 150 mg 8-31 tablet by ity of tablet 00:00: mouth in [place] 00 the Medical morning Branch and 1 tablet in the evening. cyanocobala 2021-0 Yes [id number] 1000ug 1 mL by [facility] min 1,000 8-31 Intr[facility] ity of mcg/mL 00:00: lar route [place] injection 00 once every [facility] month. Branch metoprolol 2021-0 Yes [id number] TAKE 1 U nivers tartrate 25 8-31 TABLET BY ity of mg tablet 00:00: MOUTH [place] 00 TWICE Medical DAILY AT Branch 6AM AND 6PM Fluticasone 2021-0 Yes [id number] 1{puff} Inhale 1 [facility] -Salmeterol 8-31 Puff every it y of (ADVAIR 00:00: 12 [place] DISKUS) 00 (twelve) Medical 500-50 hours. Branch mcg/dose inhalation disk ranitidine 2021-0 Yes [id number] 150mg Take 1 [facility] 150 mg 8-31 tablet by ity of tablet 00:00: mouth in [place] 00 the Medical morning Branch and 1 tablet in the evening. cyanocobala 2021-0 Yes [id number] 1000ug 1 mL by [facility] min 1,000 8-31 Intr[facility] ity of mcg/mL 00:00: lar route [place] injection 00 once every Medi tee month. Branch metoprolol 2021-0 Yes [id number] TAKE 1 U nivers tartrate 25 8-31 TABLET BY ity of mg tablet 00:00: MOUTH [place] 00 TWICE Medical DAILY AT Branch 6AM AND 6PM Fluticasone 2021-0 Yes [id number] 1{puff} Inhale 1 [facility] -Salmeterol 8-31 Puff every it y of (ADVAIR 00:00: 12 [place] DISKUS) 00 (twelve) Medical 500-50 hours. Branch mcg/dose inhalation disk ranitidine 2021-0 Yes [id number] 150mg Take 1 [facility] 150 mg 8-31 tablet by ity of tablet 00:00: mouth in [place] 00 the Medical morning Branch and 1 tablet in the evening. cyanocobala 2021-0 Yes [id number] 1000ug 1 mL by [facility] min 1,000 8-31 [facility] ity of mcg/mL 00:00: lar route [place] injection 00 once every [facility] month. Branch metoprolol 2021-0 Yes [id number] TAKE 1 U nivers tartrate 25 8-31 TABLET BY ity of mg tablet 00:00: MOUTH [place] 00 TWICE Medical DAILY AT [place] 6AM AND 6PM Fluticasone 2021-0 Yes [id number] 1{puff} Inhale 1 [facility] -Salmeterol 8-31 Puff every it y of (ADVAIR 00:00: 12 [place] DISKUS) 00 (twelve) Medical 500-50 hours. Branch mcg/dose inhalation disk ranitidine 2021-0 Yes [id number] 150mg Take 1 [facility] 150 mg 8-31 tablet by ity of tablet 00:00: mouth in [place] 00 the Medical morning Branch and 1 tablet in the evening. cyanocobala 2021-0 Yes [id number] 1000ug 1 mL by [facility] min 1,000 8-31 [facility] ity of mcg/mL 00:00: lar route [place] injection 00 once every [facility] month. Branch metoprolol 2021-0 Yes [id number] TAKE 1 U nivers tartrate 25 8-31 TABLET BY ity of mg tablet 00:00: MOUTH [place] 00 TWICE Medical DAILY AT Branch 6AM AND 6PM Fluticasone 2021-0 Yes [id number] 1{puff} Inhale 1 [facility] -Salmeterol 8-31 Puff every it y of (ADVAIR 00:00: 12 [place] DISKUS) 00 (twelve) Medical 500-50 hours. Branch mcg/dose inhalation disk ranitidine 2021-0 Yes [id number] 150mg Take 1 [facility] 150 mg 8-31 tablet by ity of tablet 00:00: mouth in [place] 00 the Medical morning Branch and 1 tablet in the evening. cyanocobala 2-0 Yes [id number] 1000ug 1 mL by [facility] min 1,000 8-31 [facility] ity of mcg/mL 00:00: lar route [place] injection 00 once every [facility] month. Branch metoprolol 2021-0 Yes [id number] TAKE 1 U nivers tartrate 25 8-31 TABLET BY ity of mg tablet 00:00: MOUTH [place] 00 TWICE Medical DAILY AT Branch 6AM AND 6PM Fluticasone 2021-0 Yes [id number] 1{puff} Inhale 1 [facility] -Salmeterol 8-31 Puff every it y of (ADVAIR 00:00: 12 [place] DISKUS) 00 (twelve) Medical 500-50 hours. Branch mcg/dose inhalation disk ranitidine 2021-0 Yes [id number] 150mg Take 1 [facility] 150 mg 8-31 tablet by ity of tablet 00:00: mouth in [place] 00 the Medical morning Branch and 1 tablet in the evening. cyanocobala 2021-0 Yes [id number] 1000ug 1 mL by [facility] min 1,000 8-31 [facility] ity of mcg/mL 00:00: lar route [place] injection 00 once every [facility] month. Branch metoprolol 2021-0 Yes [id number] TAKE 1 U nivers tartrate 25 8-31 TABLET BY ity of mg tablet 00:00: MOUTH [place] 00 TWICE Medical DAILY AT Branch 6AM AND 6PM Fluticasone 2021-0 Yes [id number] 1{puff} Inhale 1 [facility] -Salmeterol 8-31 Puff every it y of (ADVAIR 00:00: 12 [place] DISKUS) 00 (twelve) Medical 500-50 hours. Branch mcg/dose inhalation disk ranitidine 2021-0 Yes [id number] 150mg Take 1 [facility] 150 mg 8-31 tablet by ity of tablet 00:00: mouth in [place] 00 the Medical morning Branch and 1 tablet in the evening. cyanocobala 2021-0 Yes [id number] 1000ug 1 mL by [facility] min 1,000 8-31 [facility] ity of mcg/mL 00:00: lar route [place] injection 00 once every [facility] month. Branch metoprolol 2021-0 Yes [id number] TAKE 1 U nivers tartrate 25 8-31 TABLET BY ity of mg tablet 00:00: MOUTH [place] 00 TWICE Medical DAILY AT Branch 6AM AND 6PM Fluticasone 2022-0 Yes [id number] 1{puff} Inhale 1 [facility] -Salmeterol 8-31 Puff every it y of (ADVAIR 00:00: 12 [place] DISKUS) 00 (twelve) Medical 500-50 hours. Branch mcg/dose inhalation disk ranitidine 2021-0 Yes [id number] 150mg Take 1 [facility] 150 mg 8-31 tablet by ity of tablet 00:00: mouth in [place] 00 the Medical morning Branch and 1 tablet in the evening. cyanocobala 2021-0 Yes [id number] 1000ug 1 mL by [facility] min 1,000 8-31 [facility] ity of mcg/mL 00:00: lar route [place] injection 00 once every [facility] month. Branch metoprolol 2021-0 Yes [id number] TAKE 1 U nivers tartrate 25 8-31 TABLET BY ity of mg tablet 00:00: MOUTH [place] 00 TWICE Medical DAILY AT Branch 6AM AND 6PM Fluticasone 2021-0 Yes [id number] 1{puff} Inhale 1 [facility] -Salmeterol 8-31 Puff every it y of (ADVAIR 00:00: 12 [place] DISKUS) 00 (twelve) Medical 500-50 hours. Branch mcg/dose inhalation disk ranitidine 2021-0 Yes [id number] 150mg Take 1 [facility] 150 mg 8-31 tablet by ity of tablet 00:00: mouth in [place] 00 the Medical morning Branch and 1 tablet in the evening. cyanocobala 2021-0 Yes [id number] 1000ug 1 mL by [facility] min 1,000 8-31 [facility] ity of mcg/mL 00:00: lar route [place] injection 00 once every [facility] month. Branch metoprolol 2021-0 Yes [id number] TAKE 1 U nivers tartrate 25 8-31 TABLET BY ity of mg tablet 00:00: MOUTH [place] 00 TWICE Medical DAILY AT Branch 6AM AND 6PM Fluticasone 2021-0 Yes [id number] 1{puff} Inhale 1 [facility] -Salmeterol 8-31 Puff every it y of (ADVAIR 00:00: 12 [place] DISKUS) 00 (twelve) Medical 500-50 hours. Branch mcg/dose inhalation disk ranitidine 2021-0 Yes [id number] 150mg Take 1 [facility] 150 mg 8-31 tablet by ity of tablet 00:00: mouth in [place] 00 the Medical morning Branch and 1 tablet in the evening. cyanocobala 2021-0 Yes [id number] 1000ug 1 mL by [facility] min 1,000 8-31 [facility] ity of mcg/mL 00:00: lar route [place] injection 00 once every [facility] month. Branch metoprolol 2021-0 Yes [id number] TAKE 1 U nivers tartrate 25 8-31 TABLET BY ity of mg tablet 00:00: MOUTH [place] 00 TWICE Medical DAILY AT Branch 6AM AND 6PM Fluticasone 2021-0 Yes [id number] 1{puff} Inhale 1 [facility] -Salmeterol 8-31 Puff every it y of (ADVAIR 00:00: 12 [place] DISKUS) 00 (twelve) Medical 500-50 hours. Branch mcg/dose inhalation disk ranitidine 2021-0 Yes [id number] 150mg Take 1 [facility] 150 mg 8-31 tablet by ity of tablet 00:00: mouth in [place] 00 the Medical morning Branch and 1 tablet in the evening. cyanocobala 2021-0 Yes [id number] 1000ug 1 mL by [facility] min 1,000 8-31 [facility] ity of mcg/mL 00:00: lar route [place] injection 00 once every [facility] month. Branch metoprolol 2021-0 Yes [id number] TAKE 1 U nivers tartrate 25 8-31 TABLET BY ity of mg tablet 00:00: MOUTH [place] 00 TWICE Medical DAILY AT Branch 6AM AND 6PM Fluticasone 2021-0 Yes [id number] 1{puff} Inhale 1 [facility] -Salmeterol 8-31 Puff every it y of (ADVAIR 00:00: 12 [place] DISKUS) 00 (twelve) Medical 500-50 hours. Branch mcg/dose inhalation disk ranitidine 2021-0 Yes [id number] 150mg Take 1 [facility] 150 mg 8-31 tablet by ity of tablet 00:00: mouth in [place] 00 the Medical morning Branch and 1 tablet in the evening. cyanocobala 2021-0 Yes [id number] 1000ug 1 mL by [facility] min 1,000 8-31 [facility] ity of mcg/mL 00:00: lar route [place] injection 00 once every [facility] month. Branch metoprolol 2021-0 Yes [id number] TAKE 1 U nivers tartrate 25 8-31 TABLET BY ity of mg tablet 00:00: MOUTH [place] 00 TWICE Medical DAILY AT Branch 6AM AND 6PM Fluticasone 2021-0 Yes [id number] 1{puff} Inhale 1 [facility] -Salmeterol 8-31 Puff every it y of (ADVAIR 00:00: 12 [place] DISKUS) 00 (twelve) Medical 500-50 hours. Branch mcg/dose inhalation disk ranitidine 2021-0 Yes [id number] 150mg Take 1 [facility] 150 mg 8-31 tablet by ity of tablet 00:00: mouth in [place] 00 the Medical morning Branch and 1 tablet in the evening. cyanocobala 2021-0 Yes [id number] 1000ug 1 mL by [facility] min 1,000 8-31 [facility] ity of mcg/mL 00:00: lar route [place] injection 00 once every Medi tee month. Branch metoprolol 2021-0 Yes [id number] TAKE 1 U nivers tartrate 25 8-31 TABLET BY ity of mg tablet 00:00: MOUTH [place] 00 TWICE Medical DAILY AT Branch 6AM AND 6PM Fluticasone 2021-0 Yes [id number] 1{puff} Inhale 1 [facility] -Salmeterol 8-31 Puff every it y of (ADVAIR 00:00: 12 [place] DISKUS) 00 (twelve) Medical 500-50 hours. Branch mcg/dose inhalation disk ranitidine 2021-0 Yes [id number] 150mg Take 1 [facility] 150 mg 8-31 tablet by ity of tablet 00:00: mouth in [place] 00 the Medical morning Branch and 1 tablet in the evening. cyanocobala 2021-0 Yes [id number] 1000ug 1 mL by [facility] min 1,000 8-31 [facility] ity of mcg/mL 00:00: lar route [place] injection 00 once every Medi tee month. Branch metoprolol 2021-0 Yes [id number] TAKE 1 U nivers tartrate 25 8-31 TABLET BY ity of mg tablet 00:00: MOUTH [place] 00 TWICE Medical DAILY AT Branch 6AM AND 6PM Fluticasone 2021-0 Yes [id number] 1{puff} Inhale 1 [facility] -Salmeterol 8-31 Puff every it y of (ADVAIR 00:00: 12 [place] DISKUS) 00 (twelve) Medical 500-50 hours. Branch mcg/dose inhalation disk ranitidine 2021-0 Yes [id number] 150mg Take 1 [facility] 150 mg 8-31 tablet by ity of tablet 00:00: mouth in [place] 00 the Medical morning Branch and 1 tablet in the evening. cyanocobala 2021-0 Yes [id number] 1000ug 1 mL by [facility] min 1,000 8-31 [facility] ity of mcg/mL 00:00: lar route [place] injection 00 once every [facility] month. Branch metoprolol 2021-0 Yes [id number] TAKE 1 U nivers tartrate 25 8-31 TABLET BY ity of mg tablet 00:00: MOUTH [place] 00 TWICE Medical DAILY AT Branch 6AM AND 6PM Fluticasone 2021-0 Yes [id number] 1{puff} Inhale 1 [facility] -Salmeterol 8-31 Puff every it y of (ADVAIR 00:00: 12 [place] DISKUS) 00 (twelve) Medical 500-50 hours. Branch mcg/dose inhalation disk ranitidine 2021-0 Yes [id number] 150mg Take 1 [facility] 150 mg 8-31 tablet by it[facility] of tablet 00:00: mouth in [place] 00 the Medical morning Branch and 1 tablet in the evening. cyanocobala 2021-0 Yes [id number] 1000ug 1 mL by [facility] min 1,000 8-31 Intramuscu ity of mcg/mL 00:00: lar route [place] injection 00 once every [facility] month. Branch metoprolol 2021-0 Yes [id number] TAKE 1 U nivers tartrate 25 8-31 TABLET BY ity of mg tablet 00:00: MOUTH [place] 00 TWICE Medical DAILY AT Branch 6AM AND 6PM Fluticasone 2021-0 Yes [id number] 1{puff} Inhale 1 [facility] -Salmeterol 8-31 Puff every it y of (ADVAIR 00:00: 12 [place] DISKUS) 00 (twelve) Medical 500-50 hours. Branch mcg/dose inhalation disk ranitidine 2021-0 Yes [id number] 150mg Take 1 [facility] 150 mg 8-31 tablet by ity of tablet 00:00: mouth in [place] 00 the Medical morning Branch and 1 tablet in the evening. cyanocobala 2-0 Yes [id number] 1000ug 1 mL by [facility] min 1,000 8-31 Intramuscu ity of mcg/mL 00:00: lar route [place] injection 00 once every [facility] month. Branch Fluticasone 2-0 Yes [id number] 1{puff} Inhale 1 [facility] -Salmeterol 8-31 Puff every it y of (ADVAIR 00:00: 12 [place] DISKUS) 00 (twelve) Medical 500-50 hours. Branch mcg/dose inhalation disk ranitidine 2022-0 Yes [id number] 150mg Take 1 [facility] 150 mg 8-31 tablet by ity of tablet 00:00: mouth in [place] 00 the Medical morning Branch and 1 tablet in the evening. cyanocobala 2-0 Yes [id number] 1000ug 1 mL by [facility] min 1,000 8-31 Intramuscu ity of mcg/mL 00:00: lar route [place] injection 00 once every [facility] month. Branch Fluticasone 2-0 Yes [id number] 1{puff} Inhale 1 [facility] -Salmeterol 8-31 Puff every it y of (ADVAIR 00:00: 12 [place] DISKUS) 00 (twelve) Medical 500-50 hours. Branch mcg/dose inhalation disk ranitidine 2021-0 Yes [id number] 150mg Take 1 [facility] 150 mg 8-31 tablet by ity of tablet 00:00: mouth in [place] 00 the Medical morning Branch and 1 tablet in the evening. cyanocobala 2-0 Yes [id number] 1000ug 1 mL by [facility] min 1,000 8-31 Intramuscu ity of mcg/mL 00:00: lar route [place] injection 00 once every [facility] month. Branch Fluticasone 2-0 Yes [id number] 1{puff} Inhale 1 [facility] -Salmeterol 8-31 Puff every it y of (ADVAIR 00:00: 12 [place] DISKUS) 00 (twelve) Medical 500-50 hours. Branch mcg/dose inhalation disk ranitidine 2-0 Yes [id number] 150mg Take 1 [facility] 150 mg 8-31 tablet by ity of tablet 00:00: mouth in [place] 00 the Medical morning Branch and 1 tablet in the evening. cyanocobala 2022-0 Yes [id number] 1000ug 1 mL by [facility] min 1,000 8-31 Intramuscu ity of mcg/mL 00:00: lar route [place] injection 00 once every [facility] month. Branch Fluticasone 2022-0 Yes [id number] 1{puff} Inhale 1 [facility] -Salmeterol 8-31 Puff every it y of (ADVAIR 00:00: 12 [place] DISKUS) 00 (twelve) Medical 500-50 hours. Branch mcg/dose inhalation disk ranitidine 2022-0 Yes [id number] 150mg Take 1 [facility] 150 mg 8-31 tablet by ity of tablet 00:00: mouth in [place] 00 the Medical morning Branch and 1 tablet in the evening. cyanocobala 2022-0 Yes [id number] 1000ug 1 mL by [facility] min 1,000 8-31 Intramuscu ity of mcg/mL 00:00: lar route [place] injection 00 once every [facility] month. Branch Fluticasone 2021-0 Yes [id number] 1{puff} Inhale 1 [facility] -Salmeterol 8-31 Puff every it y of (ADVAIR 00:00: 12 [place] DISKUS) 00 (twelve) Medical 500-50 hours. Branch mcg/dose inhalation disk ranitidine 2021-0 Yes [id number] 150mg Take 1 [facility] 150 mg 8-31 tablet by ity of tablet 00:00: mouth in [place] 00 the Medical morning Branch and 1 tablet in the evening. cyanocobala 2-0 Yes [id number] 1000ug 1 mL by [facility] min 1,000 8-31 Intramuscu ity of mcg/mL 00:00: lar route [place] injection 00 once every [facility] month. Branch Fluticasone 2-0 Yes [id number] 1{puff} Inhale 1 [facility] -Salmeterol 8-31 Puff every it y of (ADVAIR 00:00: 12 [place] DISKUS) 00 (twelve) Medical 500-50 hours. Branch mcg/dose inhalation disk ranitidine 2-0 Yes [id number] 150mg Take 1 [facility] 150 mg 8-31 tablet by ity of tablet 00:00: mouth in [place] 00 the Medical morning Branch and 1 tablet in the evening. celecoxib 2022-0 Yes [id number] 200mg Take 1 [facility] 200 mg 8-31 capsule by ity of capsule 00:00: mouth in [place] 00 the Medical morning. Branch pantoprazol 2-0 Yes [id number] 40mg Take 1 [facility] e 40 mg EC 8-31 tablet by ity of tablet 00:00: mouth in [place] 00 the Medical morning. Branch levothyroxi 2021-0 Yes [id number] 100ug Take 1 [facility] ne 100 mcg 8-31 tablet by ity of tablet 00:00: mouth [place] 00 every Medical morning. Branch amLODIPine 2021-0 Yes [id number] 10mg Take 1 [facility] nivers 10 mg 8-31 tablet by ity of tablet 00:00: mouth in [place] 00 the Medical morning. Branch cyanocobala 2021-0 Yes [id number] 1000ug 1 mL by [facility] min 1,000 8-31 Intramuscu ity of mcg/mL 00:00: lar route [place] injection 00 once every [facility] month. Branch apremilast 2021-0 Yes [id number] 30mg Take 1 [facility] (OTEZLA) 30 8-31 tablet by ity of mg tablet 00:00: mouth in [facility] 00 the Medical morning Branch and 1 tablet in the evening. metoprolol 2021-0 Yes [id number] TAKE 1 U nivers tartrate 25 8-31 TABLET BY ity of mg tablet 00:00: MOUTH [place] 00 TWICE Medical DAILY AT [place] 6AM AND 6PM lisinopriL 2021-0 Yes [id number] 10mg Take 1 U nivers 10 mg 8-31 tablet by ity of tablet 00:00: mouth in [place] 00 the Medical morning. Branch Fluticasone 0 Yes [id number] 1{puff} Inhale 1 [facility] -Salmeterol 8-31 Puff every it y of (ADVAIR 00:00: 12 [place] DISKUS) 00 (twelve) Medical 500-50 hours. Branch mcg/dose inhalation disk ranitidine 2021-0 Yes [id number] 150mg Take 1 [facility] 150 mg 8-31 tablet by ity of tablet 00:00: mouth in [place] 00 the Medical morning Branch and 1 tablet in the evening. celecoxib 2021-0 Yes [id number] 200mg Take 1 [facility] 200 mg 8-31 capsule by ity of capsule 00:00: mouth in [place] 00 the Medical morning. Branch pantoprazol 2021-0 Yes [id number] 40mg Take 1 [facility] e 40 mg EC 8-31 tablet by ity of tablet 00:00: mouth in [place] 00 the Medical morning. Branch levothyroxi 2021-0 Yes [id number] 100ug Take 1 [facility] ne 100 mcg 8-31 tablet by ity of tablet 00:00: mouth [place] 00 every Medical morning. Branch amLODIPine 2021-0 Yes [id number] 10mg Take 1 U nivers 10 mg 8-31 tablet by ity of tablet 00:00: mouth in [place] 00 the Medical morning. Branch cyanocobala 2021-0 Yes [id number] 1000ug 1 mL by [facility] min 1,000 8-31 Intramuscu ity of mcg/mL 00:00: lar route [place] injection 00 once every [facility] month. Branch apremilast 2021-0 Yes [id number] 30mg Take 1 [facility] (OTEZLA) 30 8-31 tablet by ity of mg tablet 00:00: mouth in [facility] 00 the Medical morning Branch and 1 tablet in the evening. metoprolol 2021-0 Yes [id number] TAKE 1 U nivers tartrate 25 8-31 TABLET BY ity of mg tablet 00:00: MOUTH [place] 00 TWICE Medical DAILY AT [place] 6AM AND 6PM lisinopriL 2021-0 Yes [id number] 10mg Take 1 U nivers 10 mg 8-31 tablet by ity of tablet 00:00: mouth in [place] 00 the Medical morning. Branch Fluticasone 0 Yes [id number] 1{puff} Inhale 1 [facility] -Salmeterol 8-31 Puff every it y of (ADVAIR 00:00: 12 [place] DISKUS) 00 (twelve) Medical 500-50 hours. Branch mcg/dose inhalation disk ranitidine 2021-0 Yes [id number] 150mg Take 1 [facility] 150 mg 8-31 tablet by ity of tablet 00:00: mouth in [place] 00 the Medical morning Branch and 1 tablet in the evening. celecoxib 2021-0 Yes [id number] 200mg Take 1 [facility] 200 mg 8-31 capsule by ity of capsule 00:00: mouth in [place] 00 the Medical morning. Branch pantoprazol 2021-0 Yes [id number] 40mg Take 1 [facility] e 40 mg EC 8-31 tablet by ity of tablet 00:00: mouth in [place] 00 the Medical morning. Branch levothyroxi 2021-0 Yes [id number] 100ug Take 1 [facility] ne 100 mcg 8-31 tablet by ity of tablet 00:00: mouth [place] 00 every Medical morning. Branch amLODIPine 2021-0 Yes [id number] 10mg Take 1 U nivers 10 mg 8-31 tablet by ity of tablet 00:00: mouth in [place] 00 the Medical morning. Branch cyanocobala 2021-0 Yes [id number] 1000ug 1 mL by [facility] min 1,000 8-31 Intramuscu ity of mcg/mL 00:00: lar route [place] injection 00 once every [facility] month. Branch apremilast 2021-0 Yes [id number] 30mg Take 1 [facility] (OTEZLA) 30 8-31 tablet by ity of mg tablet 00:00: mouth in [facility] 00 the Medical morning Branch and 1 tablet in the evening. metoprolol 2021-0 Yes [id number] TAKE 1 U nivers tartrate 25 8-31 TABLET BY ity of mg tablet 00:00: MOUTH [place] 00 TWICE Medical DAILY AT [place] 6AM AND 6PM lisinopriL 2021-0 Yes [id number] 10mg Take 1 U nivers 10 mg 8-31 tablet by ity of tablet 00:00: mouth in [place] 00 the Medical morning. Branch Fluticasone 0 Yes [id number] 1{puff} Inhale 1 [facility] -Salmeterol 8-31 Puff every it y of (ADVAIR 00:00: 12 [place] DISKUS) 00 (twelve) Medical 500-50 hours. Branch mcg/dose inhalation disk ranitidine 2021-0 Yes [id number] 150mg Take 1 [facility] 150 mg 8-31 tablet by ity of tablet 00:00: mouth in [place] 00 the Medical morning Branch and 1 tablet in the evening. celecoxib 2021-0 Yes [id number] 200mg Take 1 [facility] 200 mg 8-31 capsule by ity of capsule 00:00: mouth in [place] 00 the Medical morning. Branch pantoprazol 2021-0 Yes [id number] 40mg Take 1 [facility] e 40 mg EC 8-31 tablet by ity of tablet 00:00: mouth in [place] 00 the Medical morning. Branch levothyroxi 2021-0 Yes [id number] 100ug Take 1 [facility] ne 100 mcg 8-31 tablet by ity of tablet 00:00: mouth [place] [address] every Medical morning. Branch amLODIPine 2021-0 Yes [id number] 10mg Take 1 U nivers 10 mg 8-31 tablet by ity of tablet 00:00: mouth in [place] 00 the Medical morning. Branch cyanocobala 0 Yes [id number] 1000ug 1 mL by [facility] min 1,000 8-31 Intramuscu ity of mcg/mL 00:00: lar route [place] injection 00 once every Medi tee month. Branch apremilast 2021-0 Yes [id number] 30mg Take 1 [facility] (OTEZLA) 30 8-31 tablet by ity of mg tablet 00:00: mouth in [facility] 00 the Medical morning Branch and 1 tablet in the evening. metoprolol 2021-0 Yes [id number] TAKE 1 U nivers tartrate 25 8-31 TABLET BY ity of mg tablet 00:00: MOUTH [place] 00 TWICE Medical DAILY AT [place] 6AM AND 6PM lisinopriL 2021-0 Yes [id number] 10mg Take 1 U nivers 10 mg 8-31 tablet by ity of tablet 00:00: mouth in [place] 00 the Medical morning. Branch Fluticasone 2021-0 Yes [id number] 1{puff} Inhale 1 [facility] -Salmeterol 8-31 Puff every it y of (ADVAIR 00:00: 12 [place] DISKUS) 00 (twelve) Medical 500-50 hours. Branch mcg/dose inhalation disk ranitidine 2021-0 Yes [id number] 150mg Take 1 [facility] 150 mg 8-31 tablet by ity of tablet 00:00: mouth in [place] 00 the Medical morning Branch and 1 tablet in the evening. celecoxib 2021-0 Yes [id number] 200mg Take 1 [facility] 200 mg 8-31 capsule by ity of capsule 00:00: mouth in [place] 00 the Medical morning. Branch pantoprazol 2021-0 Yes [id number] 40mg Take 1 [facility] e 40 mg EC 8-31 tablet by ity of tablet 00:00: mouth in [place] 00 the Medical morning. Branch levothyroxi 2021-0 Yes [id number] 100ug Take 1 [facility] ne 100 mcg 8-31 tablet by ity of tablet 00:00: mouth [place] 00 every Medical morning. Branch amLODIPine 2021-0 Yes [id number] 10mg Take 1 U nivers 10 mg 8-31 tablet by ity of tablet 00:00: mouth in [place] 00 the Medical morning. Branch cyanocobala 2021-0 Yes [id number] 1000ug 1 mL by [facility] min 1,000 8-31 Intramuscu ity of mcg/mL 00:00: lar route [place] injection 00 once every [facility] month. Branch apremilast 2021-0 Yes [id number] 30mg Take 1 [facility] (OTEZLA) 30 8-31 tablet by ity of mg tablet 00:00: mouth in [facility] 00 the Medical morning Branch and 1 tablet in the evening. metoprolol 2021-0 Yes [id number] TAKE 1 U nivers tartrate 25 8-31 TABLET BY ity of mg tablet 00:00: MOUTH [place] 00 TWICE Medical DAILY AT [place] 6AM AND 6PM lisinopriL 2021-0 Yes [id number] 10mg Take 1 U nivers 10 mg 8-31 tablet by ity of tablet 00:00: mouth in [place] 00 the Medical morning. Branch Fluticasone 0 Yes [id number] 1{puff} Inhale 1 [facility] -Salmeterol 8-31 Puff every it y of (ADVAIR 00:00: 12 [place] DISKUS) 00 (twelve) Medical 500-50 hours. Branch mcg/dose inhalation disk ranitidine 2021-0 Yes [id number] 150mg Take 1 [facility] 150 mg 8-31 tablet by ity of tablet 00:00: mouth in [place] 00 the Medical morning Branch and 1 tablet in the evening. celecoxib 2021-0 Yes [id number] 200mg Take 1 [facility] 200 mg 8-31 capsule by ity of capsule 00:00: mouth in [place] 00 the Medical morning. Branch pantoprazol 2021-0 Yes [id number] 40mg Take 1 [facility] e 40 mg EC 8-31 tablet by ity of tablet 00:00: mouth in [place] 00 the Medical morning. Branch levothyroxi 2021-0 Yes [id number] 100ug Take 1 [facility] ne 100 mcg 8-31 tablet by ity of tablet 00:00: mouth [place] 00 every Medical morning. Branch amLODIPine 2021-0 Yes [id number] 10mg Take 1 U nivers 10 mg 8-31 tablet by ity of tablet 00:00: mouth in [place] 00 the Medical morning. Branch cyanocobala 2021-0 Yes [id number] 1000ug 1 mL by [facility] min 1,000 8-31 Intramuscu ity of mcg/mL 00:00: lar route [place] injection 00 once every month. Branch apremilast 2021-0 Yes [id number] 30mg Take 1 [facility] (OTEZLA) 30 8-31 tablet by ity of mg tablet 00:00: mouth in [facility] 00 the Medical morning Branch and 1 tablet in the evening. metoprolol 2021-0 Yes [id number] TAKE 1 U nivers tartrate 25 8-31 TABLET BY ity of mg tablet 00:00: MOUTH [place] 00 TWICE Medical DAILY AT [place] 6AM AND 6PM lisinopriL 2021-0 Yes [id number] 10mg Take 1 U nivers 10 mg 8-31 tablet by ity of tablet 00:00: mouth in [place] 00 the Medical morning. Branch Fluticasone 2021-0 Yes [id number] 1{puff} Inhale 1 [facility] -Salmeterol 8-31 Puff every it y of (ADVAIR 00:00: 12 [place] DISKUS) 00 (twelve) Medical 500-50 hours. Branch mcg/dose inhalation disk ranitidine 2021-0 Yes [id number] 150mg Take 1 [facility] 150 mg 8-31 tablet by ity of tablet 00:00: mouth in [place] 00 the Medical morning Branch and 1 tablet in the evening. celecoxib 2021-0 Yes [id number] 200mg Take 1 [facility] 200 mg 8-31 capsule by ity of capsule 00:00: mouth in [place] 00 the Medical morning. Branch pantoprazol 2021-0 Yes [id number] 40mg Take 1 [facility] e 40 mg EC 8-31 tablet by ity of tablet 00:00: mouth in [place] 00 the Medical morning. Branch levothyroxi 2021-0 Yes [id number] 100ug Take 1 [facility] ne 100 mcg 8-31 tablet by ity of tablet 00:00: mouth [place] 00 every Medical morning. Branch amLODIPine 2021-0 Yes [id number] 10mg Take 1 U nivers 10 mg 8-31 tablet by ity of tablet 00:00: mouth in [place] 00 the Medical morning. Branch cyanocobala 2021-0 Yes [id number] 1000ug 1 mL by [facility] min 1,000 8-31 Intramuscu ity of mcg/mL 00:00: lar route [place] injection 00 once every Medi tee month. Branch apremilast 2021-0 Yes [id number] 30mg Take 1 [facility] (OTEZLA) 30 8-31 tablet by ity of mg tablet 00:00: mouth in [facility] 00 the Medical morning Branch and 1 tablet in the evening. metoprolol 2021-0 Yes [id number] TAKE 1 U nivers tartrate 25 8-31 TABLET BY ity of mg tablet 00:00: MOUTH [place] 00 TWICE Medical DAILY AT [place] 6AM AND 6PM lisinopriL 2021-0 Yes [id number] 10mg Take 1 U nivers 10 mg 8-31 tablet by ity of tablet 00:00: mouth in [place] 00 the Medical morning. Branch Fluticasone 2021-0 Yes [id number] 1{puff} Inhale 1 [facility] -Salmeterol 8-31 Puff every it y of (ADVAIR 00:00: 12 [place] DISKUS) 00 (twelve) [facility] 500-50 hours. Branch mcg/dose inhalation disk ranitidine 2021-0 Yes [id number] 150mg Take 1 [facility] 150 mg 8-31 tablet by ity of tablet 00:00: mouth in [place] 00 the Medical morning Branch and 1 tablet in the evening. celecoxib 2021-0 Yes [id number] 200mg Take 1 [facility] 200 mg 8-31 capsule by ity of capsule 00:00: mouth in [place] 00 the Medical morning. Branch pantoprazol 2021-0 Yes [id number] 40mg Take 1 [facility] e 40 mg EC 8-31 tablet by ity of tablet 00:00: mouth in [place] 00 the Medical morning. Branch levothyroxi 2021-0 Yes [id number] 100ug Take 1 [facility] ne 100 mcg 8-31 tablet by ity of tablet 00:00: mouth [place] [address] every Medical morning. Branch amLODIPine 2021-0 Yes [id number] 10mg Take 1 U nivers 10 mg 8-31 tablet by ity of tablet 00:00: mouth in [place] 00 the Medical morning. Branch cyanocobala 2021-0 Yes [id number] 1000ug 1 mL by [facility] min 1,000 8-31 Intramuscu ity of mcg/mL 00:00: lar route [place] injection 00 once every [facility] month. Branch apremilast 2021-0 Yes [id number] 30mg Take 1 [facility] (OTEZLA) 30 8-31 tablet by ity of mg tablet 00:00: mouth in [facility] 00 the Medical morning Branch and 1 tablet in the evening. metoprolol 2021-0 Yes [id number] TAKE 1 U nivers tartrate 25 8-31 TABLET BY ity of mg tablet 00:00: MOUTH [place] 00 TWICE Medical DAILY AT [place] 6AM AND 6PM lisinopriL 2021-0 Yes [id number] 10mg Take 1 U nivers 10 mg 8-31 tablet by ity of tablet 00:00: mouth in [place] 00 the Medical morning. Branch Fluticasone 0 Yes [id number] 1{puff} Inhale 1 [facility] -Salmeterol 8-31 Puff every it y of (ADVAIR 00:00: 12 [place] DISKUS) 00 (twelve) Medical 500-50 hours. Branch mcg/dose inhalation disk ranitidine 0 Yes [id number] 150mg Take 1 [facility] 150 mg 8-31 tablet by ity of tablet 00:00: mouth in [place] 00 the Medical morning Branch and 1 tablet in the evening. celecoxib 2021-0 Yes [id number] 200mg Take 1 [facility] 200 mg 8-31 capsule by ity of capsule 00:00: mouth in [place] 00 the Medical morning. Branch levothyroxi 0 Yes [id number] 100ug Take 1 [facility] ne 100 mcg 8-31 tablet by ity of tablet 00:00: mouth [place] 00 every Medical morning. Branch amLODIPine 0 Yes [id number] 10mg Take 1 U nivers 10 mg 8-31 tablet by ity of tablet 00:00: mouth in [place] 00 the Medical morning. Branch cyanocobala 0 Yes [id number] 1000ug 1 mL by [facility] min 1,000 8-31 Intramuscu ity of mcg/mL 00:00: lar route [place] injection 00 once every [facility] month. Branch apremilast 0 Yes [id number] 30mg Take 1 [facility] (OTEZLA) 30 8-31 tablet by ity of mg tablet 00:00: mouth in [facility] 00 the Medical morning Branch and 1 tablet in the evening. metoprolol 2021-0 Yes [id number] TAKE 1 U nivers tartrate 25 8-31 TABLET BY ity of mg tablet 00:00: MOUTH [place] 00 TWICE Medical DAILY AT [place] 6AM AND 6PM lisinopriL 2021-0 Yes [id number] 10mg Take 1 U nivers 10 mg 8-31 tablet by ity of tablet 00:00: mouth in [place] 00 the Medical morning. Branch Fluticasone 2021-0 Yes [id number] 1{puff} Inhale 1 [facility] -Salmeterol 8-31 Puff every it y of (ADVAIR 00:00: 12 [place] DISKUS) 00 (twelve) Medical 500-50 hours. Branch mcg/dose inhalation disk ranitidine 2021-0 Yes [id number] 150mg Take 1 [facility] 150 mg 8-31 tablet by ity of tablet 00:00: mouth in [place] 00 the Medical morning Branch and 1 tablet in the evening. celecoxib 2021-0 Yes [id number] 200mg Take 1 [facility] 200 mg 8-31 capsule by ity of capsule 00:00: mouth in [place] 00 the Medical morning. Branch levothyroxi 2021-0 Yes [id number] 100ug Take 1 [facility] ne 100 mcg 8-31 tablet by ity of tablet 00:00: mouth [place] 00 every Medical morning. Branch amLODIPine 2021-0 Yes [id number] 10mg Take 1 U nivers 10 mg 8-31 tablet by ity of tablet 00:00: mouth in [place] 00 the Medical morning. Branch cyanocobala 2021-0 Yes [id number] 1000ug 1 mL by [facility] min 1,000 8-31 Intramuscu ity of mcg/mL 00:00: lar route [place] injection 00 once every [facility] month. Branch apremilast 2021-0 Yes [id number] 30mg Take 1 [facility] (OTEZLA) 30 8-31 tablet by ity of mg tablet 00:00: mouth in [facility] 00 the Medical morning Branch and 1 tablet in the evening. metoprolol 2021-0 Yes [id number] TAKE 1 U nivers tartrate 25 8-31 TABLET BY ity of mg tablet 00:00: MOUTH [place] 00 TWICE Medical DAILY AT [place] 6AM AND 6PM lisinopriL 2021-0 Yes [id number] 10mg Take 1 U nivers 10 mg 8-31 tablet by ity of tablet 00:00: mouth in [place] 00 the Medical morning. Branch Fluticasone 2021-0 Yes [id number] 1{puff} Inhale 1 [facility] -Salmeterol 8-31 Puff every it y of (ADVAIR 00:00: 12 [place] DISKUS) 00 (twelve) Medical 500-50 hours. Branch mcg/dose inhalation disk ranitidine 2021-0 Yes [id number] 150mg Take 1 [facility] 150 mg 8-31 tablet by ity of tablet 00:00: mouth in [place] 00 the Medical morning Branch and 1 tablet in the evening. celecoxib 2021-0 Yes [id number] 200mg Take 1 [facility] 200 mg 8-31 capsule by ity of capsule 00:00: mouth in [place] 00 the Medical morning. Branch levothyroxi 2021-0 Yes [id number] 100ug Take 1 [facility] ne 100 mcg 8-31 tablet by ity of tablet 00:00: mouth [place] 00 every Medical morning. Branch amLODIPine 2021-0 Yes [id number] 10mg Take 1 U nivers 10 mg 8-31 tablet by ity of tablet 00:00: mouth in [place] 00 the Medical morning. Branch cyanocobala 2021-0 Yes [id number] 1000ug 1 mL by [facility] min 1,000 8-31 Intramuscu ity of mcg/mL 00:00: lar route [place] injection 00 once every [facility] month. Branch apremilast 2021-0 Yes [id number] 30mg Take 1 [facility] (OTEZLA) 30 8-31 tablet by ity of mg tablet 00:00: mouth in [facility] 00 the Medical morning Branch and 1 tablet in the evening. metoprolol 2021-0 Yes [id number] TAKE 1 U nivers tartrate 25 8-31 TABLET BY ity of mg tablet 00:00: MOUTH [place] 00 TWICE Medical DAILY AT [place] 6AM AND 6PM lisinopriL 2021-0 Yes [id number] 10mg Take 1 U nivers 10 mg 8-31 tablet by ity of tablet 00:00: mouth in [place] 00 the Medical morning. Branch Fluticasone 2021-0 Yes [id number] 1{puff} Inhale 1 [facility] -Salmeterol 8-31 Puff every it y of (ADVAIR 00:00: 12 [place] DISKUS) 00 (twelve) Medical 500-50 hours. Branch mcg/dose inhalation disk ranitidine 2021-0 Yes [id number] 150mg Take 1 [facility] 150 mg 8-31 tablet by ity of tablet 00:00: mouth in [place] 00 the Medical morning Branch and 1 tablet in the evening. celecoxib 2021-0 Yes [id number] 200mg Take 1 [facility] 200 mg 8-31 capsule by ity of capsule 00:00: mouth in [place] 00 the Medical morning. Branch levothyroxi 2021-0 Yes [id number] 100ug Take 1 [facility] ne 100 mcg 8-31 tablet by ity of tablet 00:00: mouth [place] 00 every Medical morning. Branch amLODIPine 2021-0 Yes [id number] 10mg Take 1 U nivers 10 mg 8-31 tablet by ity of tablet 00:00: mouth in [place] 00 the Medical morning. Branch cyanocobala 2021-0 Yes [id number] 1000ug 1 mL by [facility] min 1,000 8-31 Intramuscu ity of mcg/mL 00:00: lar route [place] injection 00 once every [facility] month. Branch apremilast 2021-0 Yes [id number] 30mg Take 1 [facility] (OTEZLA) 30 8-31 tablet by ity of mg tablet 00:00: mouth in [facility] 00 the Medical morning Branch and 1 tablet in the evening. metoprolol 2021-0 Yes [id number] TAKE 1 U nivers tartrate 25 8-31 TABLET BY ity of mg tablet 00:00: MOUTH [place] 00 TWICE Medical DAILY AT [place] 6AM AND 6PM lisinopriL 2021-0 Yes [id number] 10mg Take 1 U nivers 10 mg 8-31 tablet by ity of tablet 00:00: mouth in [place] 00 the Medical morning. Branch Fluticasone 2021-0 Yes [id number] 1{puff} Inhale 1 [facility] -Salmeterol 8-31 Puff every it y of (ADVAIR 00:00: 12 [place] DISKUS) 00 (twelve) Medical 500-50 hours. Branch mcg/dose inhalation disk ranitidine 2021-0 Yes [id number] 150mg Take 1 [facility] 150 mg 8-31 tablet by ity of tablet 00:00: mouth in [place] 00 the Medical morning Branch and 1 tablet in the evening. levothyroxi 2021-0 Yes [id number] 100ug Take 1 [facility] ne 100 mcg 8-31 tablet by ity of tablet 00:00: mouth [place] 00 every Medical morning. Branch amLODIPine 2021-0 Yes [id number] 10mg Take 1 U nivers 10 mg 8-31 tablet by ity of tablet 00:00: mouth in [place] 00 the Medical morning. Branch cyanocobala 2021-0 Yes [id number] 1000ug 1 mL by [facility] min 1,000 8-31 Intramuscu ity of mcg/mL 00:00: lar route [place] injection 00 once every month. Branch apremilast 2021-0 Yes [id number] 30mg Take 1 [facility] (OTEZLA) 30 8-31 tablet by [facility] of mg tablet 00:00: [place] 00 the Medical morning Branch and 1 tablet in the evening. metoprolol 2021-0 Yes [id number] TAKE 1 U nivers tartrate 25 8-31 TABLET BY ity of mg tablet 00:00: MOUTH [place] 00 TWICE Medical DAILY AT [place] 6AM AND 6PM lisinopriL 2021-0 Yes [id number] 10mg Take 1 [facility] nivers 10 mg 8-31 tablet by ity of tablet 00:00: mouth in [place] 00 the Medical morning. Branch Fluticasone 2021-0 Yes [id number] 1{puff} Inhale 1 [facility] -Salmeterol 8-31 Puff every it y of (ADVAIR 00:00: 12 [place] DISKUS) 00 (twelve) Medical 500-50 hours. Branch mcg/dose inhalation disk ranitidine 2021-0 Yes [id number] 150mg Take 1 [facility] 150 mg 8-31 tablet by ity of tablet 00:00: mouth in [place] 00 the Medical morning Branch and 1 tablet in the evening. levothyroxi 2021-0 Yes [id number] 100ug Take 1 [facility] ne 100 mcg 8-31 tablet by ity of tablet 00:00: mouth [place] 00 every Medical morning. Branch amLODIPine 2021-0 Yes [id number] 10mg Take 1 [facility] 10 mg 8-31 tablet by ity of tablet 00:00: mouth in [place] 00 the Medical morning. Branch cyanocobala 2021-0 Yes [id number] 1000ug 1 mL by [facility] min 1,000 8-31 Intramuscu ity of mcg/mL 00:00: lar route [place] injection 00 once every month. Branch apremilast 2021-0 Yes [id number] 30mg Take 1 [facility] (OTEZLA) 30 8-31 tablet by ity of mg tablet 00:00: [place] 00 the Medical morning Branch and 1 tablet in the evening. metoprolol 2021-0 Yes [id number] TAKE 1 [facility] nivers tartrate 25 8-31 TABLET BY ity of mg tablet 00:00: MOUTH [place] 00 TWICE Medical DAILY AT Branch 6AM AND 6PM lisinopriL 2021-0 Yes [id number] 10mg Take 1 [facility] nivers 10 mg 8-31 tablet by ity of tablet 00:00: mouth in [place] 00 the Medical morning. Branch Fluticasone 2021-0 Yes [id number] 1{puff} Inhale 1 [facility] -Salmeterol 8-31 Puff every it y of (ADVAIR 00:00: 12 [place] DISKUS) 00 (twelve) Medical 500-50 hours. Branch mcg/dose inhalation disk ranitidine 2021-0 Yes [id number] 150mg Take 1 [facility] 150 mg 8-31 tablet by ity of tablet 00:00: mouth in [place] 00 the Medical morning Branch and 1 tablet in the evening. levothyroxi 2021-0 Yes [id number] 100ug Take 1 [facility] ne 100 mcg 8-31 tablet by ity of tablet 00:00: mouth [place] 00 every Medical morning. Branch amLODIPine 2021-0 Yes [id number] 10mg Take 1 [facility] nivers 10 mg 8-31 tablet by ity of tablet 00:00: mouth in [place] 00 the Medical morning. Branch cyanocobala 2021-0 Yes [id number] 1000ug 1 mL by [facility] min 1,000 8-31 Intramuscu ity of mcg/mL 00:00: lar route [place] injection 00 once every [facility] month. Branch metoprolol 2021-0 Yes [id number] TAKE 1 U nivers tartrate 25 8-31 TABLET BY ity of mg tablet 00:00: MOUTH [place] 00 TWICE Medical DAILY AT Branch 6AM AND 6PM lisinopriL 2021-0 Yes [id number] 10mg Take 1 [facility] nivers 10 mg 8-31 tablet by ity of tablet 00:00: mouth in [place] 00 the Medical morning. Branch Fluticasone 2-0 Yes [id number] 1{puff} Inhale 1 [facility] -Salmeterol 8-31 Puff every it y of (ADVAIR 00:00: 12 [place] DISKUS) 00 (twelve) Medical 500-50 hours. Branch mcg/dose inhalation disk ranitidine 2-0 Yes [id number] 150mg Take 1 [facility] 150 mg 8-31 tablet by ity of tablet 00:00: mouth in [place] 00 the Medical morning Branch and 1 tablet in the evening. levothyroxi 2021-0 Yes [id number] 100ug Take 1 [facility] ne 100 mcg 8-31 tablet by ity of tablet 00:00: mouth [place] 00 every Medical morning. Branch amLODIPine 2021-0 Yes [id number] 10mg Take 1 [facility] n[facility] 10 mg 8-31 tablet by ity of tablet 00:00: mouth in [place] 00 the Medical morning. Branch cyanocobala 2021-0 Yes [id number] 1000ug 1 mL by [facility] min 1,000 8-31 Intramuscu ity of mcg/mL 00:00: lar route [place] injection 00 once every [facility] month. Branch metoprolol 2021-0 Yes [id number] TAKE 1 [facility] nivers tartrate 25 8-31 TABLET BY ity of mg tablet 00:00: MOUTH [place] 00 TWICE Medical DAILY AT [place] 6AM AND 6PM lisinopriL 2021-0 Yes [id number] 10mg Take 1 [facility] nivers 10 mg 8-31 tablet by ity of tablet 00:00: mouth in [place] 00 the Medical morning. Branch Fluticasone 2021-0 Yes [id number] 1{puff} Inhale 1 [facility] -Salmeterol 8-31 Puff every it y of (ADVAIR 00:00: 12 [place] DISKUS) 00 (twelve) Medical 500-50 hours. Branch mcg/dose inhalation disk ranitidine 2021-0 Yes [id number] 150mg Take 1 [facility] 150 mg 8-31 tablet by ity of tablet 00:00: mouth in [place] 00 the Medical morning Branch and 1 tablet in the evening. levothyroxi 2021-0 Yes [id number] 100ug Take 1 [facility] ne 100 mcg 8-31 tablet by ity of tablet 00:00: mouth [place] 00 every Medical morning. Branch amLODIPine 2021-0 Yes [id number] 10mg Take 1 [facility] nivers 10 mg 8-31 tablet by ity of tablet 00:00: mouth in [place] 00 the Medical morning. Branch cyanocobala 2021-0 Yes [id number] 1000ug 1 mL by [facility] min 1,000 8-31 Intramuscu ity of mcg/mL 00:00: lar route [place] injection 00 once every [facility] month. Branch metoprolol 2021-0 Yes [id number] TAKE 1 U nivers tartrate 25 8-31 TABLET BY ity of mg tablet 00:00: MOUTH [place] 00 TWICE Medical DAILY AT Branch 6AM AND 6PM lisinopriL 2-0 Yes [id number] 10mg Take 1 [facility] nivers 10 mg 8-31 tablet by ity of tablet 00:00: mouth in [place] 00 the Medical morning. Branch Fluticasone 2021-0 Yes [id number] 1{puff} Inhale 1 [facility] -Salmeterol 8-31 Puff every it y of (ADVAIR 00:00: 12 [place] DISKUS) 00 (twelve) Medical 500-50 hours. Branch mcg/dose inhalation disk ranitidine 2021-0 Yes [id number] 150mg Take 1 [facility] 150 mg 8-31 tablet by ity of tablet 00:00: mouth in [place] 00 the Medical morning Branch and 1 tablet in the evening. levothyroxi 2021-0 Yes [id number] 100ug Take 1 [facility] ne 100 mcg 8-31 tablet by ity of tablet 00:00: mouth [place] 00 every Medical morning. Branch amLODIPine 2021-0 Yes [id number] 10mg Take 1 [facility] nivers 10 mg 8-31 tablet by ity of tablet 00:00: mouth in [place] 00 the Medical morning. Branch cyanocobala 2021-0 Yes [id number] 1000ug 1 mL by [facility] min 1,000 8-31 Intramuscu ity of mcg/mL 00:00: lar route [place] injection 00 once every [facility] month. Branch metoprolol 2021-0 Yes [id number] TAKE 1 U nivers tartrate 25 8-31 TABLET BY ity of mg tablet 00:00: MOUTH [place] 00 TWICE Medical DAILY AT Branch 6AM AND 6PM lisinopriL 2-0 Yes [id number] 10mg Take 1 U nivers 10 mg 8-31 tablet by ity of tablet 00:00: mouth in [place] 00 the Medical morning. Branch Fluticasone 2-0 Yes [id number] 1{puff} Inhale 1 [facility] -Salmeterol 8-31 Puff every it y of (ADVAIR 00:00: 12 [place] DISKUS) 00 (twelve) Medical 500-50 hours. Branch mcg/dose inhalation disk ranitidine 2-0 Yes [id number] 150mg Take 1 [facility] 150 mg 8-31 tablet by ity of tablet 00:00: mouth in [place] 00 the Medical morning Branch and 1 tablet in the evening. levothyroxi 2021-0 Yes [id number] 100ug Take 1 [facility] ne 100 mcg 8-31 tablet by ity of tablet 00:00: mouth [place] 00 every Medical morning. Branch amLODIPine 2021-0 Yes [id number] 10mg Take 1 [facility] nivers 10 mg 8-31 tablet by ity of tablet 00:00: mouth in [place] 00 the Medical morning. Branch cyanocobala 2021-0 Yes [id number] 1000ug 1 mL by [facility] min 1,000 8-31 Intramuscu ity of mcg/mL 00:00: lar route [place] injection 00 once every [facility] month. Branch metoprolol 2021-0 Yes [id number] TAKE 1 U nivers tartrate 25 8-31 TABLET BY ity of mg tablet 00:00: MOUTH [place] 00 TWICE Medical DAILY AT [place] 6AM AND 6PM lisinopriL 2021-0 Yes [id number] 10mg Take 1 U nivers 10 mg 8-31 tablet by ity of tablet 00:00: mouth in [place] 00 the Medical morning. Branch Fluticasone 2021-0 Yes [id number] 1{puff} Inhale 1 [facility] -Salmeterol 8-31 Puff every it y of (ADVAIR 00:00: 12 [place] DISKUS) 00 (twelve) Medical 500-50 hours. Branch mcg/dose inhalation disk ranitidine 2021-0 Yes [id number] 150mg Take 1 [facility] 150 mg 8-31 tablet by ity of tablet 00:00: mouth in [place] 00 the Medical morning Branch and 1 tablet in the evening. levothyroxi 2021-0 Yes [id number] 100ug Take 1 [facility] ne 100 mcg 8-31 tablet by ity of tablet 00:00: mouth [place] 00 every Medical morning. Branch amLODIPine 2021-0 Yes [id number] 10mg Take 1 [facility] nivers 10 mg 8-31 tablet by ity of tablet 00:00: mouth in [place] 00 the Medical morning. Branch cyanocobala 2021-0 Yes [id number] 1000ug 1 mL by [facility] min 1,000 8-31 Intramuscu ity of mcg/mL 00:00: lar route [place] injection 00 once every [facility] month. Branch metoprolol 2021-0 Yes [id number] TAKE 1 U nivers tartrate 25 8-31 TABLET BY ity of mg tablet 00:00: MOUTH [place] 00 TWICE Medical DAILY AT Branch 6AM AND 6PM lisinopriL 2021-0 Yes [id number] 10mg Take 1 U nivers 10 mg 8-31 tablet by ity of tablet 00:00: mouth in [place] 00 the Medical morning. Branch Fluticasone 2021-0 Yes [id number] 1{puff} Inhale 1 [facility] -Salmeterol 8-31 Puff every it y of (ADVAIR 00:00: 12 [place] DISKUS) 00 (twelve) Medical 500-50 hours. Branch mcg/dose inhalation disk ranitidine 2021-0 Yes [id number] 150mg Take 1 [facility] 150 mg 8-31 tablet by ity of tablet 00:00: mouth in [place] 00 the Medical morning Branch and 1 tablet in the evening. amLODIPine 2021-0 Yes [id number] 10mg Take 1 U nivers 10 mg 8-31 tablet by ity of tablet 00:00: mouth in [place] 00 the Medical morning. Branch cyanocobala 2021-0 Yes [id number] 1000ug 1 mL by [facility] min 1,000 8-31 Intramuscu ity of mcg/mL 00:00: lar route [place] injection 00 once every [facility] month. Branch metoprolol 2021-0 Yes [id number] TAKE 1 U nivers tartrate 25 8-31 TABLET BY ity of mg tablet 00:00: MOUTH [place] 00 TWICE Medical DAILY AT Branch 6AM AND 6PM lisinopriL 2021-0 Yes [id number] 10mg Take 1 U nivers 10 mg 8-31 tablet by ity of tablet 00:00: mouth in [place] 00 the Medical morning. Branch Fluticasone 2021-0 Yes [id number] 1{puff} Inhale 1 [facility] -Salmeterol 8-31 Puff every it y of (ADVAIR 00:00: 12 [place] DISKUS) 00 (twelve) Medical 500-50 hours. Branch mcg/dose inhalation disk ranitidine 2021-0 Yes [id number] 150mg Take 1 [facility] 150 mg 8-31 tablet by ity of tablet 00:00: mouth in [place] 00 the Medical morning Branch and 1 tablet in the evening. amLODIPine 2021-0 Yes [id number] 10mg Take 1 U nivers 10 mg 8-31 tablet by ity of tablet 00:00: mouth in [place] 00 the Medical morning. Branch cyanocobala 2021-0 Yes [id number] 1000ug 1 mL by [facility] min 1,000 8-31 Intramuscu ity of mcg/mL 00:00: lar route [place] injection 00 once every [facility] month. Branch metoprolol 2-0 Yes [id number] TAKE 1 U nivers tartrate 25 8-31 TABLET BY ity of mg tablet 00:00: MOUTH [place] 00 TWICE Medical DAILY AT Branch 6AM AND 6PM lisinopriL 2022-0 Yes [id number] 10mg Take 1 U nivers 10 mg 8-31 tablet by ity of tablet 00:00: mouth in [place] 00 the Medical morning. Branch Fluticasone 2021-0 Yes [id number] 1{puff} Inhale 1 [facility] -Salmeterol 8-31 Puff every it y of (ADVAIR 00:00: 12 [place] DISKUS) 00 (twelve) Medical 500-50 hours. Branch mcg/dose inhalation disk ranitidine 2021-0 Yes [id number] 150mg Take 1 [facility] 150 mg 8-31 tablet by ity of tablet 00:00: mouth in [place] 00 the Medical morning Branch and 1 tablet in the evening. amLODIPine 2021-0 Yes [id number] 10mg Take 1 U nivers 10 mg 8-31 tablet by ity of tablet 00:00: mouth in [place] 00 the Medical morning. Branch cyanocobala 2021-0 Yes [id number] 1000ug 1 mL by [facility] min 1,000 8-31 Intramuscu ity of mcg/mL 00:00: lar route [place] injection 00 once every [facility] month. Branch metoprolol 2-0 Yes [id number] TAKE 1 U nivers tartrate 25 8-31 TABLET BY ity of mg tablet 00:00: MOUTH [place] 00 TWICE Medical DAILY AT Branch 6AM AND 6PM lisinopriL 2022-0 Yes [id number] 10mg Take 1 U nivers 10 mg 8-31 tablet by ity of tablet 00:00: mouth in [place] 00 the Medical morning. Branch Fluticasone 2-0 Yes [id number] 1{puff} Inhale 1 [facility] -Salmeterol 8-31 Puff every it y of (ADVAIR 00:00: 12 [place] DISKUS) 00 (twelve) Medical 500-50 hours. Branch mcg/dose inhalation disk ranitidine 2021-0 Yes [id number] 150mg Take 1 [facility] 150 mg 8-31 tablet by ity of tablet 00:00: mouth in [place] 00 the Medical morning Branch and 1 tablet in the evening. amLODIPine 2021-0 Yes [id number] 10mg Take 1 U nivers 10 mg 8-31 tablet by ity of tablet 00:00: mouth in [place] 00 the Medical morning. Branch cyanocobala 2021-0 Yes [id number] 1000ug 1 mL by [facility] min 1,000 8-31 Intramuscu ity of mcg/mL 00:00: lar route [place] injection 00 once every Medi tee month. Branch metoprolol 2021-0 Yes [id number] TAKE 1 U nivers tartrate 25 8-31 TABLET BY ity of mg tablet 00:00: MOUTH [place] 00 TWICE Medical DAILY AT Branch 6AM AND 6PM lisinopriL 2021-0 Yes [id number] 10mg Take 1 U nivers 10 mg 8-31 tablet by ity of tablet 00:00: mouth in [place] 00 the Medical morning. Branch Fluticasone 2021-0 Yes [id number] 1{puff} Inhale 1 [facility] -Salmeterol 8-31 Puff every it y of (ADVAIR 00:00: 12 [place] DISKUS) 00 (twelve) Medical 500-50 hours. Branch mcg/dose inhalation disk ranitidine 2021-0 Yes [id number] 150mg Take 1 [facility] 150 mg 8-31 tablet by ity of tablet 00:00: mouth in [place] 00 the Medical morning Branch and 1 tablet in the evening. cyanocobala 2021-0 Yes [id number] 1000ug 1 mL by [facility] min 1,000 8-31 Intramuscu ity of mcg/mL 00:00: lar route [place] injection 00 [facility]. Branch metoprolol 2021-0 Yes [id number] TAKE 1 U nivers tartrate 25 8-31 TABLET BY ity of mg tablet 00:00: MOUTH [place] 00 TWICE Medical DAILY AT Branch 6AM AND 6PM lisinopriL 2-0 Yes [id number] 10mg Take 1 U nivers 10 mg 8-31 tablet by ity of tablet 00:00: mouth in [place] 00 the Medical morning. Branch Fluticasone 2021-0 Yes [id number] 1{puff} Inhale 1 [facility] -Salmeterol 8-31 Puff every it y of (ADVAIR 00:00: 12 [place] DISKUS) 00 (twelve) Medical 500-50 hours. Branch mcg/dose inhalation disk ranitidine 2021-0 Yes [id number] 150mg Take 1 [facility] 150 mg 8-31 tablet by ity of tablet 00:00: mouth in [place] 00 the Medical morning Branch and 1 tablet in the evening. cyanocobala 2021-0 Yes [id number] 1000ug 1 mL by [facility] min 1,000 8-31 Intramuscu ity of mcg/mL 00:00: lar route [place] injection 00 once every Medi tee month. Branch metoprolol 2021-0 Yes [id number] TAKE 1 U nivers tartrate 25 8-31 TABLET BY ity of mg tablet 00:00: MOUTH [place] 00 TWICE Medical DAILY AT Branch 6AM AND 6PM Fluticasone 2021-0 Yes [id number] 1{puff} Inhale 1 [facility] -Salmeterol 8-31 Puff every it y of (ADVAIR 00:00: 12 [place] DISKUS) 00 (twelve) Medical 500-50 hours. Branch mcg/dose inhalation disk ranitidine 2021-0 Yes [id number] 150mg Take 1 [facility] 150 mg 8-31 tablet by ity of tablet 00:00: mouth in [place] 00 the Medical morning Branch and 1 tablet in the evening. cyanocobala 2021-0 Yes [id number] 1000ug 1 mL by [facility] min 1,000 8-31 Intramuscu ity of mcg/mL 00:00: lar route [place] injection 00 once every [facility] month. Branch metoprolol 2021-0 Yes [id number] TAKE 1 U nivers tartrate 25 8-31 TABLET BY ity of mg tablet 00:00: MOUTH [place] 00 TWICE Medical DAILY AT Branch 6AM AND 6PM Fluticasone 202-0 Yes [id number] 1{puff} Inhale 1 [facility] -Salmeterol 8-31 Puff every it y of (ADVAIR 00:00: 12 [place] DISKUS) 00 (twelve) Medical 500-50 hours. Branch mcg/dose inhalation disk ranitidine 2-0 Yes [id number] 150mg Take 1 [facility] 150 mg 8-31 tablet by ity of tablet 00:00: mouth in [place] 00 the Medical morning Branch and 1 tablet in the evening. metoprolol 2022- No [id number] TAKE 1 [facility] tartrate 25 03-10- TABLET BY it y of mg tablet 00:00: 00:00 MOUTH [place] 00 :00 TWICE Medical DAILY AT Branch 6AM AND 6PM metoprolol 2022- No [id number] TAKE 1 [facility] tartrate 25 03-10- TABLET BY it y of mg tablet 00:00: 00:00 MOUTH [place] 00 :00 TWICE Medical DAILY AT Branch 6AM AND 6PM metoprolol 2022- No [id number] TAKE 1 [facility] tartrate 25 03-10- TABLET BY it y of mg tablet 00:00: 00:00 MOUTH [place] 00 :00 TWICE Medical DAILY AT [place] 6AM AND 6PM lisinopriL 2022- No [id number] 10mg Take 1 [facility] 10 mg 03-10 tablet by ity of tablet 00:00: 00:00 mouth in [place] 00 :00 the Medical morning. [place] amLODIPine 2021- No [id number] 10mg Take 1 [facility] 10 mg 03-10 tablet by ity of tablet 00:00: 00:00 mouth in [place] 00 :00 the Medical morning. [place] levothyroxi 2021- No [id number] 100ug Take 1 [facility] ne 100 mcg 03-10-16 tablet by ity of tablet 00:00: 00:00 mouth [place] 00 :00 every Medical morning. [place] apremilast 2021- No [id number] 30mg Take 1 [facility] (OTEZLA) 30 03-10 tablet by it y of mg tablet 00:00: 00:00 mouth in [facility] as 00 :00 the Medical morning Branch and 1 tablet in the evening. celecoxib 2021- No [id number] 200mg Take 1 [facility] 200 mg 03-10 capsule by ity of capsule 00:00: 00:00 mouth in [place] 00 :00 the Medical morning. [place] pantoprazol 2021- No [id number] 40mg Take 1 [facility] e 40 mg EC 03-10-07 tablet by ity of tablet 00:00: 00:00 mouth in [place] 00 :00 the Medical morning. Branch HYDROcodone 2-0 Yes [id number] 1{tbl} Take 1 [facility] [place] -acetaminop 8-19 tablet by ity of hen ([place]) 00:00: mouth in [place] 10-325 mg 00 the Medical tablet morning Branch and 1 tablet at noon and 1 tablet in the evening. Indication s: chronic pain HYDROcodone 2-0 Yes [id number] 1{tbl} Take 1 [facility] [place] -acetaminop 8-19 tablet by ity of hen ([place]) 00:00: mouth in [place] 10-325 mg 00 the Medical tablet morning Branch and 1 tablet at noon and 1 tablet in the evening. Indication s: chronic pain HYDROcodone 2-0 Yes [id number] 1{tbl} Take 1 [facility] [place] -acetaminop 8-19 tablet by ity of hen ([place]) 00:00: mouth in [place] 10-325 mg 00 the Medical tablet morning Branch and 1 tablet at noon and 1 tablet in the evening. Indication s: chronic pain HYDROcodone 2-0 Yes [id number] 1{tbl} Take 1 [facility] [place] -acetaminop 8-19 tablet by ity of hen ([place]) 00:00: mouth in [place] 10-325 mg 00 the Medical tablet morning Branch and 1 tablet at noon and 1 tablet in the evening. Indication s: chronic pain HYDROcodone 2-0 Yes [id number] 1{tbl} Take 1 [facility] [place] -acetaminop 8-19 tablet by ity of hen ([place]) 00:00: mouth in [place] 10-325 mg 00 the Medical tablet morning Branch and 1 tablet at noon and 1 tablet in the evening. Indication s: chronic pain HYDROcodone 2-0 Yes 2745 1{tbl} Take 1 [facility] [place] -acetaminop 8-19 tablet by ity of hen ([place]) 00:00: mouth in [place] 10-325 mg 00 the Medical tablet morning Branch and 1 tablet at noon and 1 tablet in the evening. Indication s: chronic pain HYDROcodone 2022-0 2- No 2745 1{tbl} Take 1 U nivers -acetaminop 8-19 09-16 tablet by it y of hen ([place]) 00:00: 00:00 mouth in [place] 10-325 mg 00 :00 the Medical tablet morning Branch and 1 tablet at noon and 1 tablet in the evening. Indication s: chronic pain HYDROcodone 2021-0 2021- No 2745 1{tbl} Take 1 U nivers -acetaminop 8-19 -16 tablet by it y of hen ([place]) 00:00: 00:00 mouth in [place] 10-325 mg 00 :00 the Medical tablet morning Branch and 1 tablet at noon and 1 tablet in the evening. Indication s: chronic pain HYDROcodone 2021-0 2021- No 2745 1{tbl} Take 1 U nivers -acetaminop 8-19 -16 tablet by it y of hen ([place]) 00:00: 00:00 mouth in [place] 10-325 mg 00 :00 the Medical tablet morning Branch and 1 tablet at noon and 1 tablet in the evening. Indication s: chronic pain eszopiclone 0 Yes Univer s 3 mg tablet 8-15 ity of 00:00: Medical Branch eszopiclone 0 Yes Univer s 3 mg tablet 8-15 ity of 00:00: Medical Branch eszopiclone 2021-0 Yes Univer s 3 mg tablet 8-15 ity of 00:00: Medical Branch eszopiclone 2021-0 Yes Univer s 3 mg tablet 8-15 ity of 00:00: Medical Branch eszopiclone 2021-0 Yes Univer s 3 mg tablet 8-15 ity of 00:00: Medical Branch eszopiclone 2021-0 Yes Univer s 3 mg tablet 8-15 ity of 00:00: Medical Branch eszopiclone 2021-0 Yes Univer s 3 mg tablet 8-15 ity of 00:00: Medical Branch eszopiclone 2021-0 Yes Univer s 3 mg tablet 8-15 ity of 00:00: Medical Branch eszopiclone 2021-0 Yes Univer s 3 mg tablet 8-15 ity of 00:00: Medical Branch eszopiclone 2021-0 Yes Univer s 3 mg tablet 8-15 ity of 00:00: Medical Branch eszopiclone 0 Yes Univer s 3 mg tablet 8-15 ity of 00:00: [place] Medical Branch eszopiclone 2021-0 Yes Univer s 3 mg tablet 8-15 ity of 00:00: [place] Medical Branch eszopiclone 2021-0 Yes Univer s 3 mg tablet 8-15 ity of 00:00: [place] Medical Branch eszopiclone 2021-0 Yes Univer s 3 mg tablet 8-15 ity of 00:00: [place] Medical Branch eszopiclone 2021-0 Yes Univer s 3 mg tablet 8-15 ity of 00:00: [place] Medical Branch eszopiclone 2021-0 Yes Univer s 3 mg tablet 8-15 ity of 00:00: [place] Medical Branch eszopiclone 2021-0 Yes Univer s 3 mg tablet 8-15 ity of 00:00: [place] Medical Branch eszopiclone 2021-0 Yes Univer s 3 mg tablet 8-15 ity of 00:00: [place] Medical Branch eszopiclone 2021-0 Yes Univer s 3 mg tablet 8-15 ity of 00:00: [place] Medical Branch eszopiclone 2021-0 Yes Univer s 3 mg tablet 8-15 ity of 00:00: [place] Medical Branch eszopiclone 2021-0 Yes Univer s 3 mg tablet 8-15 ity of 00:00: [place] Medical Branch eszopiclone 2021-0 Yes Univer s 3 mg tablet 8-15 ity of 00:00: [place] Medical Branch eszopiclone 2021-0 Yes Univer s 3 mg tablet 8-15 ity of 00:00: [place] Medical Branch eszopiclone 2021-0 Yes Univer s 3 mg tablet 8-15 ity of 00:00: [place] Medical Branch eszopiclone 2021-0 Yes Univer s 3 mg tablet 8-15 ity of 00:00: [place] Medical Branch eszopiclone 2021-0 Yes Univer s 3 mg tablet 8-15 ity of 00:00: [place] Medical Branch eszopiclone 2021-0 Yes Univer s 3 mg tablet 8-15 ity of 00:00: [place] Medical Branch eszopiclone 2021-0 Yes Univer s 3 mg tablet 8-15 ity of 00:00: [place] Medical Branch eszopiclone 2021-0 Yes Univer s 3 mg tablet 8-15 ity of 00:00: [place] Medical Branch eszopiclone 2021-0 Yes Univer s 3 mg tablet 8-15 ity of 00:00: [place] Medical Branch eszopiclone 2021-0 Yes Univer s 3 mg tablet 8-15 ity of 00:00: [place] Medical Branch eszopiclone 2021-0 Yes Univer s 3 mg tablet 8-15 ity of 00:00: [place] Medical Branch eszopiclone 2021-0 Yes Univer s 3 mg tablet 8-15 ity of 00:00: [place] [facility] Branch eszopiclone 2021-0 Yes Univer s 3 mg tablet 8-15 ity of 00:00: [place] [facility] Branch eszopiclone 2021-0 Yes Univer s 3 mg tablet 8-15 ity of 00:00: [place] [facility] Branch eszopiclone 2021-0 Yes Univer s 3 mg tablet 8-15 ity of 00:00: [place] [facility] Branch eszopiclone 2021-0 Yes Univer s 3 mg tablet 8-15 ity of 00:00: [place] [facility] Branch eszopiclone 2021-0 Yes Univer s 3 mg tablet 8-15 ity of 00:00: [place] [facility] Branch eszopiclone 2021-0 Yes Univer s 3 mg tablet 8-15 ity of 00:00: [place] [facility] Branch eszopiclone 2021-0 Yes Univer s 3 mg tablet 8-15 ity of 00:00: [place] [facility] Branch eszopiclone 2021-0 Yes Univer s 3 mg tablet 8-15 ity of 00:00: [place] [facility] Branch eszopiclone 2021-0 Yes Univer s 3 mg tablet 8-15 ity of 00:00: [place] [facility] Branch eszopiclone 2021-0 Yes Univer s 3 mg tablet 8-15 ity of 00:00: [place] [facility] Branch eszopiclone 2021-0 Yes Univer s 3 mg tablet 8-15 ity of 00:00: [place] [facility] Branch eszopiclone 2-0 Yes Univer s 3 mg tablet 8-15 ity of 00:00: [place] [facility] Branch eszopiclone 2021-0 Yes Univer s 3 mg tablet 8-15 ity of 00:00: [place] [facility] Branch eszopiclone 2021-0 Yes Univer s 3 mg tablet 8-15 ity of 00:00: [place] [facility] Branch eszopiclone 2021-0 Yes Univer s 3 mg tablet 8-15 ity of 00:00: [place] [facility] Branch eszopiclone 2021-0 Yes Univer s 3 mg tablet 8-15 ity of 00:00: [place] [facility] Branch eszopiclone 2021-0 Yes Univer s 3 mg tablet 8-15 ity of 00:00: [place] [facility] Branch eszopiclone 2021-0 Yes Univer s 3 mg tablet 8-15 ity of 00:00: [place] [facility] Branch eszopiclone 2021-0 Yes Univer s 3 mg tablet 8-15 ity of 00:00: [place] [facility] eszopiclone 2021-0 Yes Univer s 3 mg tablet 8-15 ity of 00:00: [place] [facility] eszopiclone 2021-0 Yes Univer s 3 mg tablet 8-15 ity of 00:00: [place] [facility] eszopiclone 2021-0 Yes Univer s 3 mg tablet 8-15 ity of 00:00: [place] [facility] eszopiclone 2021-0 Yes Univer s 3 mg tablet 8-15 ity of 00:00: [place] [facility] eszopiclone 2021-0 Yes Univer s 3 mg tablet 8-15 ity of 00:00: [place] [facility] eszopiclone 2021-0 Yes Univer s 3 mg tablet 8-15 ity of 00:00: [place] [facility] eszopiclone 2021-0 Yes Univer s 3 mg tablet 8-15 ity of 00:00: [place] [facility] Branch eszopiclone 2021-0 Yes Univer s 3 mg tablet 8-15 ity of 00:00: Medical Branch eszopiclone 0 Yes Univer s 3 mg tablet 8-15 ity of 00:00: [place] [facility] Branch eszopiclone 2021-0 Yes Univer s 3 mg tablet 8-15 ity of 00:00: [place] [facility] eszopiclone 2021-0 Yes Univer s 3 mg tablet 8-15 ity of 00:00: [place] [facility] eszopiclone 2021-0 Yes Univer s 3 mg tablet 8-15 ity of 00:00: [place] [facility] Branch eszopiclone 2021-0 Yes Univer s 3 mg tablet 8-15 ity of 00:00: [place] [facility] Branch eszopiclone 2021-0 Yes [facility] 3 mg tablet 8-15 ity of 00:00: [facility] eszopiclone 2021-0 Yes [facility] 3 mg tablet 8-15 ity of 00:00: [facility] eszopiclone 2021-0 Yes [facility] 3 mg tablet 8-15 ity of 00:00: [facility] eszopiclone 2021-0 Yes [facility] 3 mg tablet 8-15 ity of 00:00: [facility] eszopiclone 2021-0 Yes [facility] 3 mg tablet 8-15 ity of 00:00: [facility] eszopiclone 2021-0 Yes [facility] 3 mg tablet 8-15 ity of 00:00: [facility] eszopiclone 2021-0 Yes [facility] 3 mg tablet 8-15 ity of 00:00: [facility] eszopiclone 2021-0 Yes [facility] 3 mg tablet 8-15 ity of 00:00: [facility] eszopiclone 2021-0 Yes [facility] 3 mg tablet 8-15 ity of 00:00: [facility] eszopiclone 2021-0 Yes [facility] 3 mg tablet 8-15 ity of 00:00: [facility] eszopiclone 2021-0 Yes [facility] 3 mg tablet 8-15 ity of 00:00: [facility] eszopiclone 2021-0 Yes [facility] 3 mg tablet 8-15 ity of 00:00: [place] 00 [facility] eszopiclone 2021-0 Yes [facility] 3 mg tablet 8-15 ity of 00:00: [place] 00 [facility] eszopiclone 2021-0 Yes [facility] 3 mg tablet 8-15 ity of 00:00: [place] 00 [facility] eszopiclone 2021-0 Yes [facility] 3 mg tablet 8-15 ity of 00:00: [place] 00 [facility] Branch celecoxib 2-0 Yes [id number] 200mg Take 1 [facility] 200 mg 8-02 capsule by it[facility] of capsule 00:00: mouth in [place] 00 the Medical morning. Branch celecoxib 2-0 Yes [id number] 200mg Take 1 [facility] 200 mg 8-02 capsule by [facility] of capsule 00:00: mouth in [place] the Medical morning. Branch celecoxib 2-0 Yes [id number] 200mg Take 1 [facility] 200 mg 8-02 capsule by it[facility] of capsule 00:00: mouth in [place] the Medical morning. Branch celecoxib 2021-0 Yes [id number] 200mg Take 1 [facility] 200 mg 8-02 capsule by it[facility] of capsule 00:00: mouth in [place] the Medical morning. Branch celecoxib 2-0 Yes [id number] 200mg Take 1 [facility] 200 mg 8-02 capsule by it[facility] of capsule 00:00: mouth in [place] the Medical morning. Branch celecoxib 2-0 Yes [id number] 200mg Take 1 [facility] 200 mg 8-02 capsule by ity of capsule 00:00: mouth in [place] the Medical morning. Branch celecoxib 2-0 2022- No [id number] 200mg Take 1 [facility] 200 mg 8-02 08-31 capsule by ity of capsule 00:00: 00:00 mouth in [place] 00 :00 the Medical morning. Branch celecoxib 2-0 2022- No [id number] 200mg Take 1 [facility] 200 mg 8-02 -31 capsule by ity of capsule 00:00: 00:00 mouth in [place] 00 :00 the Medical morning. Branch HYDROcodone 2021-0 Yes 2745 1{tbl} Take 1 [facility] [place] -acetaminop 7-20 tablet by [facility] hen ([place]) 00:00: mouth [place] 10-325 mg 00 the Medical tablet morning Branch and 1 tablet at noon and 1 tablet in the evening. Indication s: chronic pain HYDROcodone 2021-0 Yes 2745 1{tbl} Take 1 [facility] [place] -acetaminop 7-20 tablet by [facility] of hen ([place]) 00:00: mouth in [place] 10-325 mg 00 the Medical tablet morning Branch and 1 tablet at noon and 1 tablet in the evening. Indication s: chronic pain methocarbam 2021-0 Yes [id number] 500mg Take 1 [facility] oL 500 mg 7-20 tablet by ity o f tablet 00:00: mouth 4 00 (four) Medical times Branch daily as needed (cramps). HYDROcodone 2021-0 Yes 2745 1{tbl} Take 1 [facility] [place] -acetaminop 7-20 tablet by it[facility] of hen ([place]) 00:00: mouth in [place] 10-325 mg 00 the Medical tablet morning Branch and 1 tablet at noon and 1 tablet in the evening. Indication s: chronic pain methocarbam 2021-0 Yes [id number] 500mg Take 1 [facility] oL 500 mg 7-20 tablet by ity o f tablet 00:00: mouth 4 (four) Medical times Branch daily as needed (cramps). HYDROcodone 2021-0 Yes 2745 1{tbl} Take 1 [facility] [place] -acetaminop 7-20 tablet by [facility] of hen ([place]) 00:00: mouth in [place] 10-325 mg 00 the Medical tablet morning Branch and 1 tablet at noon and 1 tablet in the evening. Indication s: chronic pain methocarbam 2021-0 Yes [id number] 500mg Take 1 [facility] oL 500 mg 7-20 tablet by ity o f tablet 00:00: mouth 4 00 (four) Medical times Branch daily as needed (cramps). HYDROcodone 2021-0 Yes 2745 1{tbl} Take 1 [facility] [place] -acetaminop 7-20 tablet by [facility] of hen ([place]) 00:00: mouth in [place] 10-325 mg 00 the Medical tablet morning Branch and 1 tablet at noon and 1 tablet in the evening. Indication s: chronic pain methocarbam 2021-0 Yes [id number] 500mg Take 1 [facility] oL 500 mg 7-20 tablet by ity o f tablet 00:00: mouth 4 [place] 00 (four) Medical times Branch daily as needed (cramps). HYDROcodone 2021-0 Yes 2745 1{tbl} Take 1 [facility] [place] -acetaminop 7-20 tablet by it[facility] of hen ([place]) 00:00: mouth in [place] 10-325 mg 00 the Medical tablet morning Branch and 1 tablet at noon and 1 tablet in the evening. Indication s: chronic pain methocarbam 2021-0 Yes [id number] 500mg Take 1 [facility] oL 500 mg 7-20 tablet by ity o f tablet 00:00: mouth 4 (four) Medical times Branch daily as needed (cramps). HYDROcodone 2021-0 Yes 2745 1{tbl} Take 1 [facility] [place] -acetaminop 7-20 tablet by [facility] of hen ([place]) 00:00: mouth in [place] 10-325 mg 00 the Medical tablet morning Branch and 1 tablet at noon and 1 tablet in the evening. Indication s: chronic pain methocarbam 2021-0 Yes [id number] 500mg Take 1 [facility] oL 500 mg 7-20 tablet by ity o f tablet 00:00: mouth 4 (four) Medical times Branch daily as needed (cramps). HYDROcodone 2021-0 Yes 2745 1{tbl} Take 1 [facility] [place] -acetaminop 7-20 tablet by it[facility] of hen ([place]) 00:00: mouth in [place] 10-325 mg 00 the Medical tablet morning Branch and 1 tablet at noon and 1 tablet in the evening. Indication s: chronic pain methocarbam 2021-0 Yes [id number] 500mg Take 1 [facility] oL 500 mg 7-20 tablet by ity o f tablet 00:00: mouth 4 (four) Medical times Branch daily as needed (cramps). HYDROcodone 2021-0 Yes 2745 1{tbl} Take 1 [facility] [place] -acetaminop 7-20 tablet by [facility] of hen ([place]) 00:00: mouth in [place] 10-325 mg 00 the Medical tablet morning Branch and 1 tablet at noon and 1 tablet in the evening. Indication s: chronic pain methocarbam 2021-0 Yes [id number] 500mg Take 1 [facility] oL 500 mg 7-20 tablet by ity o f tablet 00:00: mouth 4 (four) Medical times Branch daily as needed (cramps). methocarbam 2-0 Yes [id number] 500mg Take 1 [facility] oL 500 mg 7-20 tablet by ity o f tablet 00:00: mouth (four) Medical times Branch daily as needed (cramps). methocarbam 2-0 Yes [id number] 500mg Take 1 [facility] oL 500 mg 7-20 tablet by ity o f tablet 00:00: mouth (four) Medical times Branch daily as needed (cramps). methocarbam 2-0 Yes [id number] 500mg Take 1 [facility] oL 500 mg 7-20 tablet by ity o f tablet 00:00: mouth (four) Medical times Branch daily as needed (cramps). methocarbam 2022-0 Yes [id number] 500mg Take 1 [facility] oL 500 mg 7-20 tablet by ity o f tablet 00:00: mouth (four) Medical times Branch daily as needed (cramps). methocarbam 2-0 Yes [id number] 500mg Take 1 [facility] oL 500 mg 7-20 tablet by ity o f tablet 00:00: mouth (four) Medical times Branch daily as needed (cramps). methocarbam 2-0 Yes [id number] 500mg Take 1 [facility] oL 500 mg 7-20 tablet by ity o f tablet 00:00: mouth (four) Medical times Branch daily as needed (cramps). methocarbam 2-0 Yes [id number] 500mg Take 1 [facility] oL 500 mg 7-20 tablet by ity o f tablet 00:00: mouth (four) Medical times Branch daily as needed (cramps). methocarbam 2022-0 Yes [id number] 500mg Take 1 [facility] oL 500 mg 7-20 tablet by ity o f tablet 00:00: mouth (four) Medical times Branch daily as needed (cramps). methocarbam 2022-0 Yes [id number] 500mg Take 1 [facility] oL 500 mg 7-20 tablet by ity o f tablet 00:00: mouth (four) Medical times Branch daily as needed (cramps). methocarbam 2022-0 Yes [id number] 500mg Take 1 [facility] oL 500 mg 7-20 tablet by ity o f tablet 00:00: mouth (four) Medical times Branch daily as needed (cramps). methocarbam 2021-0 Yes [id number] 500mg Take 1 [facility] oL 500 mg 7-20 tablet by ity o f tablet 00:00: mouth (four) Medical times Branch daily as needed (cramps). methocarbam 2021-0 Yes [id number] 500mg Take 1 [facility] oL 500 mg 7-20 tablet by ity o f tablet 00:00: mouth (four) Medical times Branch daily as needed (cramps). methocarbam 2021-0 Yes [id number] 500mg Take 1 [facility] oL 500 mg 7-20 tablet by ity o f tablet 00:00: mouth (four) Medical times Branch daily as needed (cramps). methocarbam 2021-0 Yes [id number] 500mg Take 1 [facility] oL 500 mg 7-20 tablet by ity o f tablet 00:00: mouth (four) Medical times Branch daily as needed (cramps). methocarbam 2021-0 Yes [id number] 500mg Take 1 [facility] oL 500 mg 7-20 tablet by ity o f tablet 00:00: mouth (four) Medical times Branch daily as needed (cramps). methocarbam 2021-0 Yes [id number] 500mg Take 1 [facility] oL 500 mg 7-20 tablet by ity o f tablet 00:00: mouth (four) Medical times Branch daily as needed (cramps). methocarbam 2021-0 Yes [id number] 500mg Take 1 [facility] oL 500 mg 7-20 tablet by ity o f tablet 00:00: mouth (four) Medical times Branch daily as needed (cramps). methocarbam 2-0 Yes [id number] 500mg Take 1 [facility] oL 500 mg 7-20 tablet by ity o f tablet 00:00: mouth (four) Medical times Branch daily as needed (cramps). methocarbam 2-0 Yes [id number] 500mg Take 1 [facility] oL 500 mg 7-20 tablet by ity o f tablet 00:00: mouth [place] 00 (four) Medical times Branch daily as needed (cramps). methocarbam 2021-0 Yes [id number] 500mg Take 1 [facility] oL 500 mg 7-20 tablet by ity o f tablet 00:00: mouth 4 [place] 00 (four) Medical times Branch daily as needed (cramps). methocarbam 2021-0 2021- No [id number] 500mg Take 1 [facility] oL 500 mg 7-20 -02 tablet by ity of tablet 00:00: 00:00 mouth 4 [place] 00 :00 (four) Medical times Branch daily as needed (cramps). HYDROcodone 2021-2021- No 2745 1{tbl} Take 1 U nivers -acetaminop 7-20 - tablet by it y of hen ([place]) 00:00: 00:00 mouth in [place] 10-325 mg 00 :00 the Medical tablet morning Branch and 1 tablet at noon and 1 tablet in the evening. Indication s: chronic pain pantoprazol 2021-0 Yes [id number] 40mg Take 1 [facility] e 40 mg EC 7-19 tablet by ity of tablet 00:00: mouth in [place] 00 the Medical morning. Branch pantoprazol 2021-0 Yes [id number] 40mg Take 1 [facility] e 40 mg EC 7-19 tablet by ity of tablet 00:00: mouth in [place] 00 the Medical morning. Branch pantoprazol 2021-0 Yes [id number] 40mg Take 1 [facility] e 40 mg EC 7-19 tablet by ity of tablet 00:00: mouth in [place] 00 the Medical morning. Branch pantoprazol 2021-0 Yes [id number] 40mg Take 1 [facility] e 40 mg EC 7-19 tablet by ity of tablet 00:00: mouth in [place] 00 the Medical morning. Branch pantoprazol 2021-0 Yes [id number] 40mg Take 1 [facility] e 40 mg EC 7-19 tablet by ity of tablet 00:00: mouth in [place] 00 the Medical morning. Branch pantoprazol 2021-0 Yes [id number] 40mg Take 1 [facility] e 40 mg EC 7-19 tablet by ity of tablet 00:00: mouth in [place] 00 the Medical morning. Branch pantoprazol 2021-0 Yes [id number] 40mg Take 1 [facility] e 40 mg EC 7-19 tablet by ity of tablet 00:00: mouth in [place] 00 the Medical morning. Branch pantoprazol 2021-0 Yes [id number] 40mg Take 1 [facility] e 40 mg EC 7-19 tablet by ity of tablet 00:00: mouth in [place] 00 the Medical morning. Branch pantoprazol 2021-0 Yes [id number] 40mg Take 1 [facility] e 40 mg EC 7-19 tablet by ity of tablet 00:00: mouth in [place] 00 the Medical morning. Branch pantoprazol 2021-0 Yes [id number] 40mg Take 1 [facility] e 40 mg EC 7-19 tablet by ity of tablet 00:00: mouth in [place] 00 the Medical morning. Branch pantoprazol 2021-0 Yes [id number] 40mg Take 1 [facility] e 40 mg EC 7-19 tablet by ity of tablet 00:00: mouth in [place] 00 the Medical morning. Branch pantoprazol 2021-0 2- No [id number] 40mg Take 1 [facility] e 40 mg EC 7-19 -31 tablet by ity of tablet 00:00: 00:00 mouth in [place] 00 :00 the Medical morning. Branch pantoprazol 2021-0 2- No [id number] 40mg Take 1 [facility] e 40 mg EC 7-19 08-31 tablet by ity of tablet 00:00: 00:00 mouth in [place] 00 :00 the Medical morning. Branch LEVOTHYROXI 2021-0 Yes [id number] 100ug TAKE 1 [facility] [place] 100 mcg 7-04 TABLET BY ity of tablet 00:00: MOUTH [place] 00 EVERY Medical MORNING. Branch AMLODIPINE 2-0 Yes [id number] 10mg TAKE 1 U nivers 10 mg 7-04 TABLET BY ity of tablet 00:00: MOUTH [place] 00 DAILY. Medical Branch LEVOTHYROXI 2-0 Yes [id number] 100ug TAKE 1 [facility] NE 100 mcg 7-04 TABLET BY ity of tablet 00:00: MOUTH [place] 00 EVERY Medical MORNING. Branch AMLODIPINE 2-0 Yes [id number] 10mg TAKE 1 [facility] nivers 10 mg 7-04 TABLET BY ity of tablet 00:00: MOUTH [place] 00 DAILY. Medical Branch LEVOTHYROXI 2-0 Yes [id number] 100ug TAKE 1 [facility] NE 100 mcg 7-04 TABLET BY ity of tablet 00:00: MOUTH [place] 00 EVERY Medical MORNING. Branch AMLODIPINE 2-0 Yes [id number] 10mg TAKE 1 [facility] nivers 10 mg 7-04 TABLET BY ity of tablet 00:00: MOUTH [place] 00 DAILY. Medical Branch LEVOTHYROXI 2-0 Yes [id number] 100ug TAKE 1 [facility] NE 100 mcg 7-04 TABLET BY ity of tablet 00:00: MOUTH [place] 00 EVERY Medical MORNING. Branch AMLODIPINE 2-0 Yes [id number] 10mg TAKE 1 [facility] nivers 10 mg 7-04 TABLET BY ity of tablet 00:00: MOUTH [place] 00 DAILY. Medical Branch LEVOTHYROXI 2-0 Yes [id number] 100ug TAKE 1 [facility] 100 mcg 7-04 TABLET BY ity of tablet 00:00: MOUTH [place] 00 EVERY Medical MORNING. Branch AMLODIPINE 2-0 Yes [id number] 10mg TAKE 1 [facility] nivers 10 mg 7-04 TABLET BY ity of tablet 00:00: MOUTH [place] 00 DAILY. Medical Branch LEVOTHYROXI 2-0 Yes [id number] 100ug TAKE 1 [facility] NE 100 mcg 7-04 TABLET BY ity of tablet 00:00: MOUTH [place] 00 EVERY Medical MORNING. Branch AMLODIPINE 2021-0 Yes [id number] 10mg TAKE 1 [facility] nivers 10 mg 7-04 TABLET BY ity of tablet 00:00: MOUTH [place] 00 DAILY. Medical Branch LEVOTHYROXI 2-0 Yes [id number] 100ug TAKE 1 [facility] 100 mcg 7-04 TABLET BY ity of tablet 00:00: MOUTH [place] 00 EVERY Medical MORNING. Branch AMLODIPINE 2-0 Yes [id number] 10mg TAKE 1 [facility] nivers 10 mg 7-04 TABLET BY ity of tablet 00:00: MOUTH [place] 00 DAILY. Medical Branch LEVOTHYROXI 2-0 Yes [id number] 100ug TAKE 1 [facility] 100 mcg 7-04 TABLET BY ity of tablet 00:00: MOUTH [place] 00 EVERY Medical MORNING. Branch AMLODIPINE 2-0 Yes [id number] 10mg TAKE 1 [facility] nivers 10 mg 7-04 TABLET BY ity of tablet 00:00: MOUTH [place] 00 DAILY. Medical Branch LEVOTHYROXI 2-0 Yes [id number] 100ug TAKE 1 [facility] 100 mcg 7-04 TABLET BY ity of tablet 00:00: MOUTH [place] 00 EVERY Medical MORNING. Branch AMLODIPINE 2-0 Yes [id number] 10mg TAKE 1 [facility] nivers 10 mg 7-04 TABLET BY ity of tablet 00:00: MOUTH [place] 00 DAILY. Medical Branch LEVOTHYROXI 2021-0 Yes [id number] 100ug TAKE 1 [facility] 100 mcg 7-04 TABLET BY ity of tablet 00:00: MOUTH [place] 00 EVERY Medical MORNING. Branch AMLODIPINE 2021-0 Yes [id number] 10mg TAKE 1 [facility] nivers 10 mg 7-04 TABLET BY ity of tablet 00:00: MOUTH [place] 00 DAILY. Medical Branch LEVOTHYROXI 2021-0 Yes [id number] 100ug TAKE 1 [facility] 100 mcg 7-04 TABLET BY ity of tablet 00:00: MOUTH [place] 00 EVERY Medical MORNING. Branch AMLODIPINE 2021-0 Yes [id number] 10mg TAKE 1 [facility] nivers 10 mg 7-04 TABLET BY ity of tablet 00:00: MOUTH [place] 00 DAILY. Medical Branch LEVOTHYROXI 2021-0 Yes [id number] 100ug TAKE 1 [facility] 100 mcg 7-04 TABLET BY ity of tablet 00:00: MOUTH [place] 00 EVERY Medical MORNING. Branch AMLODIPINE 2021-0 Yes [id number] 10mg TAKE 1 [facility] nivers 10 mg 7-04 TABLET BY ity of tablet 00:00: MOUTH [place] 00 DAILY. Medical Branch LEVOTHYROXI 2021-0 Yes [id number] 100ug TAKE 1 [facility] 100 mcg 7-04 TABLET BY ity of tablet 00:00: MOUTH [place] 00 EVERY Medical MORNING. Branch AMLODIPINE 2021-0 Yes [id number] 10mg TAKE 1 [facility] nivers 10 mg 7-04 TABLET BY ity of tablet 00:00: MOUTH [place] 00 DAILY. Medical Branch LEVOTHYROXI 2021-0 2021- No [id number] 100ug TAKE 1 [facility] NE 100 mcg 7-04 08-31 TABLET BY ity of tablet 00:00: 00:00 MOUTH [place] 00 :00 EVERY Medical MORNING. Branch AMLODIPINE 2021-0 2021- No [id number] 10mg TAKE 1 [facility] 10 mg 7-04 08-31 TABLET BY ity of tablet 00:00: 00:00 MOUTH [place] 00 :00 DAILY. Medical Branch LEVOTHYROXI 2-0 2021- No [id number] 100ug TAKE 1 [facility] NE 100 mcg 7-04 08-31 TABLET BY ity of tablet 00:00: 00:00 MOUTH [place] 00 :00 EVERY Medical MORNING. Branch AMLODIPINE 2021-0 2022- No [id number] 10mg TAKE 1 [facility] 10 mg 01-11 TABLET BY ity of tablet 00:00: 00:00 MOUTH [place] 00 :00 DAILY. Medical Branch pregabalin 2022-0 Yes [id number] 150mg Take 1 [facility] 150 mg 7-01 capsule by ity of capsule 00:00: mouth (three) Medical times Branch daily. pregabalin 2022-0 Yes [id number] 150mg Take 1 [facility] 150 mg 7-01 capsule by ity of capsule 00:00: mouth (three) Medical times Branch daily. pregabalin 2022-0 Yes [id number] 150mg Take 1 [facility] 150 mg 7-01 capsule by ity of capsule 00:00: mouth [place] () Medical times Branch daily. pregabalin 2-0 Yes [id number] 150mg Take 1 [facility] 150 mg 7-01 capsule by ity of capsule 00:00: mouth [place] () Medical times Branch daily. pregabalin 2-0 Yes [id number] 150mg Take 1 [facility] 150 mg 7-01 capsule by ity of capsule 00:00: mouth [place] () Medical times Branch daily. pregabalin 2022-0 Yes [id number] 150mg Take 1 [facility] 150 mg 7-01 capsule by ity of capsule 00:00: mouth [place] () Medical times Branch daily. pregabalin 2022-0 Yes [id number] 150mg Take 1 [facility] 150 mg 7-01 capsule by ity of capsule 00:00: mouth [place] () Medical times Branch daily. pregabalin 2022-0 Yes [id number] 150mg Take 1 [facility] 150 mg 7-01 capsule by ity of capsule 00:00: mouth [place] (three) Medical times Branch daily. pregabalin 2022-0 Yes [id number] 150mg Take 1 [facility] 150 mg 7-01 capsule by ity of capsule 00:00: mouth [place] ([facility]) Medical times Branch daily. pregabalin 2022-0 Yes [id number] 150mg Take 1 [facility] 150 mg 7-01 capsule by ity of capsule 00:00: mouth [address] [place] [address] (three) Medical times Branch daily. pregabalin 2022-0 Yes [id number] 150mg Take 1 [facility] 150 mg 7-01 capsule by ity of capsule 00:00: mouth [place] (three) Medical times Branch daily. pregabalin 2022-0 Yes [id number] 150mg Take 1 [facility] 150 mg 7-01 capsule by ity of capsule 00:00: mouth (three) Medical times Branch daily. pregabalin 2022-0 Yes [id number] 150mg Take 1 [facility] 150 mg 7-01 capsule by ity of capsule 00:00: mouth () Medical times Branch daily. pregabalin 2022-0 Yes [id number] 150mg Take 1 [facility] 150 mg 7-01 capsule by ity of capsule 00:00: mouth [place] () Medical times Branch daily. pregabalin 2022-0 Yes [id number] 150mg Take 1 [facility] 150 mg 7-01 capsule by ity of capsule 00:00: mouth [place] () Medical times Branch daily. pregabalin 2022-0 Yes [id number] 150mg Take 1 [facility] 150 mg 7-01 capsule by ity of capsule 00:00: mouth [place] () Medical times Branch daily. pregabalin 2022-0 Yes [id number] 150mg Take 1 [facility] 150 mg 7-01 capsule by ity of capsule 00:00: mouth [place] () Medical times Branch daily. pregabalin 2022-0 Yes [id number] 150mg Take 1 [facility] 150 mg 7-01 capsule by ity of capsule 00:00: mouth [place] () Medical times Branch daily. pregabalin 2022-0 Yes [id number] 150mg Take 1 [facility] 150 mg 7-01 capsule by ity of capsule 00:00: mouth [place] (three) Medical times Branch daily. pregabalin 2022-0 Yes [id number] 150mg Take 1 [facility] 150 mg 7-01 capsule by ity of capsule 00:00: mouth [place] (three) Medical times Branch daily. pregabalin 2022-0 2022- No [id number] 150mg Take 1 [facility] 150 mg 7-01 10-06 capsule by ity of capsule 00:00: 00:[address] [place] [address] 00 :00 (three) Medical times Branch daily. cyanocobala 2022-0 Yes [id number] 1000ug 1 mL by [facility] min 1,000 6-28 [facility] it[facility] of mcg/mL 00:00: lar route [place] injection 00 once every [facility] month. Branch cyanocobala 2021-0 Yes [id number] 1000ug 1 mL by [facility] min 1,000 6-28 [facility] ity of mcg/mL 00:00: lar route [place] injection 00 once every [facility] month. Branch cyanocobala 2-0 Yes [id number] 1000ug 1 mL by [facility] min 1,000 6-28 [facility] ity of mcg/mL 00:00: lar route [place] injection 00 once every [facility] month. Branch cyanocobala 2-0 Yes [id number] 1000ug 1 mL by [facility] min 1,000 6-28 [facility] ity of mcg/mL 00:00: lar route [place] injection 00 once every [facility] month. Branch cyanocobala 2021-0 Yes [id number] 1000ug 1 mL by [facility] min 1,000 6-28 [facility] ity of mcg/mL 00:00: lar route [place] injection 00 once every [facility] month. Branch cyanocobala 2021-0 Yes [id number] 1000ug 1 mL by [facility] min 1,000 6-28 [facility] ity of mcg/mL 00:00: lar route [place] injection 00 once every [facility] month. Branch cyanocobala 2021-0 Yes [id number] 1000ug 1 mL by [facility] min 1,000 6-28 [facility] ity of mcg/mL 00:00: lar route [place] injection 00 once every [facility] month. Branch cyanocobala 2-0 Yes [id number] 1000ug 1 mL by [facility] min 1,000 6-28 [facility] ity of mcg/mL 00:00: lar route [place] injection 00 once every [facility] month. Branch cyanocobala 2-0 Yes [id number] 1000ug 1 mL by [facility] min 1,000 6-28 [facility] ity of mcg/mL 00:00: lar route [place] injection 00 once every [facility] month. Branch cyanocobala 2-0 Yes [id number] 1000ug 1 mL by [facility] min 1,000 6-28 [facility] ity of mcg/mL 00:00: lar route [place] injection 00 once every [facility] month. Branch cyanocobala 2-0 Yes [id number] 1000ug 1 mL by [facility] min 1,000 6-28 [facility] ity of mcg/mL 00:00: lar route [place] injection 00 once every [facility] month. Branch cyanocobala 2021-0 Yes [id number] 1000ug 1 mL by [facility] min 1,000 6-28 [facility] ity of mcg/mL 00:00: lar route [place] injection 00 once every [facility] month. Branch cyanocobala 2021-0 Yes [id number] 1000ug 1 mL by [facility] min 1,000 6-28 [facility] ity of mcg/mL 00:00: lar route [place] injection 00 once every [facility] month. Branch cyanocobala 2021-0 Yes [id number] 1000ug 1 mL by [facility] min 1,000 6-28 [facility] ity of mcg/mL 00:00: lar route [place] injection 00 once every [facility] month. Branch cyanocobala 2021-0 2022- No [id number] 1000ug 1 mL by [facility] min 1,000 6-28 08-31 [facility] ity of mcg/mL 00:00: 00:00 lar route [place] injection 00 :00 once every [facility] month. Branch cyanocobala 2021-0 2022- No [id number] 1000ug 1 mL by [facility] min 1,000 6-28 08-31 [facility] ity of mcg/mL 00:00: 00:00 lar route [place] injection 00 :00 once every [facility] month. Branch ethambutol 2021-0 2022- No 400mg Take 400 U nivers HCl 6-27 06-27 mg by ity of (ETHAMBUTOL 11:41: 00:00 mouth [place]AL) 49 :00 every Medical Tuesday, Branch Tuesday and Tuesday. ziprasidone 2022-0 Yes 60mg Take 1 Univ ers (GEODON) 60 6-27 capsule by it y of mg capsule 00:00: mouth 2 [place] 00 (two) Medical times Branch daily with meals. ziprasidone 2022-0 Yes 60mg Take 1 [facility] ers (GEODON) 60 6-27 capsule by it y of mg capsule 00:00: mouth 2 [place] 00 (two) Medical times Branch daily with meals. ziprasidone 2022-0 Yes 60mg Take 1 [facility] ers (GEODON) 60 6-27 capsule by it y of mg capsule 00:00: mouth 2 [place] 00 (two) Medical times Branch daily with meals. ziprasidone 2022-0 Yes 60mg Take 1 [facility] ers (GEODON) 60 6-27 capsule by it y of mg capsule 00:00: mouth 2 [place] 00 (two) Medical times Branch daily with meals. ziprasidone 2022-0 Yes 60mg Take 1 [facility] ers (GEODON) 60 6-27 capsule by it y of mg capsule 00:00: mouth 2 [place] 00 (two) Medical times Branch daily with meals. ziprasidone 2022-0 Yes 60mg Take 1 [facility] ers (GEODON) 60 6-27 capsule by it y of mg capsule 00:00: mouth 2 [place] 00 (two) Medical times Branch daily with meals. ziprasidone 2022-0 Yes 60mg Take 1 [facility] ers (GEODON) 60 6-27 capsule by it y of mg capsule 00:00: mouth 2 [place] 00 (two) Medical times Branch daily with meals. ziprasidone 2022-0 Yes 60mg Take 1 Univ ers (GEODON) 60 6-27 capsule by it y of mg capsule 00:00: mouth 2 [place] 00 (two) Medical times Branch daily with meals. ziprasidone 2022-0 Yes 60mg Take 1 [facility] ers (GEODON) 60 6-27 capsule by it y of mg capsule 00:00: mouth 2 [place] 00 (two) Medical times Branch daily with meals. ziprasidone 2022-0 Yes 60mg Take 1 Univ ers (GEODON) 60 6-27 capsule by it y of mg capsule 00:00: mouth 2 [place] 00 (two) Medical times Branch daily with meals. ziprasidone 2022-0 Yes 60mg Take 1 Univ ers (GEODON) 60 6-27 capsule by it y of mg capsule 00:00: mouth 2 [place] 00 (two) Medical times Branch daily with meals. ziprasidone 2022-0 Yes 60mg Take 1 Univ ers (GEODON) 60 6-27 capsule by it y of mg capsule 00:00: mouth 2 [place] 00 (two) Medical times Branch daily with meals. ziprasidone 2022-0 Yes 60mg Take 1 Univ ers (GEODON) 60 6-27 capsule by it y of mg capsule [place] ([place] [facility] daily with meals. ziprasidone 2022-0 Yes 60mg Take 1 [facility] ([facility] 60 6-27 capsule by [facility] capsule [place]:[facility]: [place] (two) [facility] times [facility] daily with meals. ziprasidone 2022-0 Yes 60mg Take 1 [facility] ([facility]) 60 6-27 capsule by [facility] mg capsule 00:00: mouth [place] (two) [facility] times [facility] daily with meals. ziprasidone 2022-0 Yes 60mg Take 1 [facility] ([facility]) 60 6-27 capsule by [facility] mg capsule 00:00: mouth [place] (two) [facility] times [facility] daily with meals. ziprasidone 2022-0 Yes 60mg Take 1 [facility] ([facility]) 60 6-27 capsule by [facility] mg capsule 00:00: mouth [place] (two) [facility] times [facility] daily with meals. ziprasidone 2022-0 Yes 60mg Take 1 [facility] ([facility]) 60 6-27 capsule by [facility] mg capsule 00:00: mouth [place] (two) [facility] times [facility] daily with meals. ziprasidone 2022-0 Yes 60mg Take 1 [facility] ([facility]) 60 6-27 capsule by [facility] mg capsule 00:00: mouth [place] (two) [facility] times [facility] daily with meals. ziprasidone 2022-0 Yes 60mg Take 1 [facility] ([facility]) 60 6-27 capsule by [facility] mg capsule 00:00: mouth [place] (two) [facility] times [facility] daily with meals. ziprasidone 2022-0 Yes 60mg Take 1 [facility] ([facility]) 60 6-27 capsule by [facility] mg capsule 00:00: mouth [place] (two) [facility] times [facility] daily with meals. ziprasidone 2022-0 Yes 60mg Take 1 [facility] ([facility]) 60 6-27 capsule by [facility] mg capsule 00:00: mouth [place] (two) [facility] times [facility] daily with meals. ziprasidone 2022-0 Yes 60mg Take 1 [facility] ([facility]) 60 6-27 capsule by [facility] mg capsule 00:00: mouth 2 [place] (two) [facility] times [facility] daily with meals. ziprasidone 2022-0 Yes 60mg Take 1 [facility] ([facility]) 60 6-27 capsule by [facility] mg capsule 00:00: mouth [place] (two) [facility] times [facility] daily with meals. ziprasidone 2022-0 Yes 60mg Take 1 [facility] ([facility]) 60 6-27 capsule by [facility] mg capsule 00:00: mouth [place] (two) [facility] times [facility] daily with meals. ziprasidone 2022-0 Yes 60mg Take 1 [facility] ([facility]) 60 6-27 capsule by [facility] mg capsule 00:00: mouth [place] (two) [facility] times [facility] daily with meals. ziprasidone 2022-0 Yes 60mg Take 1 [facility] ([facility]) 60 6-27 capsule by [facility] mg capsule 00:00: mouth 2 [place] 00 (two) [facility] times [facility] daily with meals. ziprasidone 2022-0 Yes 60mg Take 1 [facility] ([facility]) 60 6-27 capsule by [facility] mg capsule 00:00: mouth 2 [place] 00 (two) [facility] times [facility] daily with meals. ziprasidone 2022-0 Yes 60mg Take 1 [facility] ([facility]) 60 6-27 capsule by [facility] mg capsule 00:00: mouth [place] 00 (two) [facility] times [facility] daily with meals. ziprasidone 2022-0 Yes 60mg Take 1 [facility] ([facility]) 60 6-27 capsule by [facility] mg capsule 00:00: mouth [place] 00 (two) [facility] times [facility] daily with meals. ziprasidone 2022-0 Yes 60mg Take 1 [facility] ([facility]) 60 6-27 capsule by [facility] mg capsule 00:00: mouth 2 [place] 00 (two) [facility] times [facility] daily with meals. ziprasidone 2022-0 Yes 60mg Take 1 [facility] ([facility]) 60 6-27 capsule by [facility] mg capsule 00:00: mouth 2 [place] 00 (two) [facility] times [facility] daily with meals. ziprasidone 2022-0 Yes 60mg Take 1 [facility] ([facility]) 60 6-27 capsule by [facility] mg capsule 00:00: mouth 2 [place] 00 (two) [facility] times [facility] daily with meals. ziprasidone 2022-0 Yes 60mg Take 1 [facility] ([facility]) 60 6-27 capsule by [facility] mg capsule 00:00: mouth 2 [place] 00 (two) [facility] times [facility] daily with meals. ziprasidone 2022-0 Yes 60mg Take 1 [facility] ([facility]) 60 6-27 capsule by [facility] mg capsule 00:00: mouth 2 [place] 00 (two) [facility] times [facility] daily with meals. ziprasidone 2022-0 Yes 60mg Take 1 [facility] ([facility]) 60 6-27 capsule by [facility] mg capsule 00:00: mouth 2 [place] 00 (two) [facility] times [facility] daily with meals. ziprasidone 2022-0 Yes 60mg Take 1 [facility] ([facility]) 60 6-27 capsule by [facility] mg capsule 00:00: mouth 2 [place] 00 (two) [facility] times [facility] daily with meals. ziprasidone 2022-0 Yes 60mg Take 1 [facility] ([facility]) 60 6-27 capsule by [facility] mg capsule 00:00: mouth 2 [place] 00 (two) [facility] times [facility] daily with meals. ziprasidone 2022-0 Yes 60mg Take 1 [facility] ([facility]) 60 6-27 capsule by [facility] mg capsule 00:00: mouth 2 [place] 00 (two) [facility] times [facility] daily with meals. ziprasidone 2022-0 Yes 60mg Take 1 [facility] ([facility]) 60 6-27 capsule by [facility] mg capsule 00:00: mouth 2 [place] 00 (two) [facility] times [facility] daily with meals. ziprasidone 2022-0 Yes 60mg Take 1 [facility] ([facility]) 60 6-27 capsule by [facility] mg capsule 00:00: mouth 2 [place] 00 (two) [facility] times [facility] daily with meals. ziprasidone 2022-0 Yes 60mg Take 1 [facility] ([facility]) 60 6-27 capsule by [facility] mg capsule 00:00: mouth 2 [place] 00 (two) [facility] times [facility] daily with meals. ziprasidone 2022-0 Yes 60mg Take 1 [facility] ([facility]) 60 6-27 capsule by [facility] mg capsule 00:00: mouth 2 [place] 00 (two) [facility] times [facility] daily with meals. ziprasidone 2022-0 Yes 60mg Take 1 [facility] ([facility]) 60 6-27 capsule by [facility] mg capsule 00:00: mouth 2 [place] 00 (two) [facility] times [facility] daily with meals. ziprasidone 2022-0 Yes 60mg Take 1 [facility] ([facility]) 60 6-27 capsule by [facility] mg capsule 00:00: mouth 2 [place] 00 (two) [facility] times [facility] daily with meals. ziprasidone 2022-0 Yes 60mg Take 1 [facility] ([facility]) 60 6-27 capsule by [facility] mg capsule 00:00: mouth 2 [place] 00 (two) [facility] times [facility] daily with meals. ziprasidone 2022-0 Yes 60mg Take 1 [facility] ([facility]) 60 6-27 capsule by [facility] mg capsule 00:00: mouth 2 [place] 00 (two) [facility] times [facility] daily with meals. ziprasidone 2022-0 Yes 60mg Take 1 [facility] ([facility]) 60 6-27 capsule by [facility] mg capsule 00:00: mouth 2 [place] 00 (two) [facility] times [facility] daily with meals. ziprasidone 2022-0 Yes 60mg Take 1 [facility] ([facility]) 60 6-27 capsule by [facility] mg capsule 00:00: mouth 2 [place] 00 (two) [facility] times [facility] daily with meals. ziprasidone 2022-0 Yes 60mg Take 1 [facility] ([facility]) 60 6-27 capsule by [facility] mg capsule 00:00: mouth 2 [place] 00 (two) [facility] times [facility] daily with meals. ziprasidone 2022-0 Yes 60mg Take 1 [facility] ([facility]) 60 6-27 capsule by [facility] mg capsule 00:00: mouth 2 [place] 00 (two) [facility] times [facility] daily with meals. ziprasidone 2022-0 Yes 60mg Take 1 [facility] ([facility]) 60 6-27 capsule by [facility] mg capsule 00:00: mouth 2 [place] 00 (two) [facility] times [facility] daily with meals. ziprasidone 2022-0 Yes 60mg Take 1 [facility] ([facility]) 60 6-27 capsule by [facility] mg capsule 00:00: mouth 2 [place] 00 (two) [facility] times [facility] daily with meals. ziprasidone 2022-0 Yes 60mg Take 1 [facility] ([facility]) 60 6-27 capsule by [facility] mg capsule 00:00: mouth 2 [place] 00 (two) [facility] times [facility] daily with meals. ziprasidone 2022-0 Yes 60mg Take 1 [facility] ([facility]) 60 6-27 capsule by [facility] mg capsule 00:00: mouth 2 [place] 00 (two) [facility] times [facility] daily with meals. ziprasidone 2022-0 Yes 60mg Take 1 [facility] ([facility]) 60 6-27 capsule by [facility] mg capsule 00:00: mouth 2 [place] 00 (two) [facility] times [facility] daily with meals. ziprasidone 2022-0 Yes 60mg Take 1 [facility] ([facility]) 60 6-27 capsule by [facility] mg capsule 00:00: mouth 2 [place] 00 (two) [facility] times [facility] daily with meals. ziprasidone 2022-0 Yes 60mg Take 1 [facility] ([facility]) 60 6-27 capsule by [facility] mg capsule 00:00: mouth 2 [place] 00 (two) [facility] times [facility] daily with meals. ziprasidone 2022-0 Yes 60mg Take 1 [facility] ([facility]) 60 6-27 capsule by [facility] mg capsule 00:00: mouth 2 [place] 00 (two) [facility] times [facility] daily with meals. ziprasidone 2022-0 Yes 60mg Take 1 [facility] ([facility]) 60 6-27 capsule by [facility] mg capsule 00:00: mouth 2 [place] 00 (two) [facility] times [facility] daily with meals. ziprasidone 2022-0 Yes 60mg Take 1 [facility] ([facility]) 60 6-27 capsule by [facility] mg capsule 00:00: mouth 2 [place] 00 (two) [facility] times [facility] daily with meals. ziprasidone 2022-0 Yes 60mg Take 1 [facility] ([facility]) 60 6-27 capsule by [facility] mg capsule 00:00: mouth 2 [place] 00 (two) [facility] times [facility] daily with meals. ziprasidone 2022-0 Yes 60mg Take 1 [facility] ([facility]) 60 6-27 capsule by [facility] mg capsule 00:00: mouth 2 [place] 00 (two) [facility] times [facility] daily with meals. ziprasidone 2022-0 Yes 60mg Take 1 [facility] ([facility]) 60 6-27 capsule by [facility] mg capsule 00:00: mouth 2 [place] 00 (two) [facility] times [facility] daily with meals. ziprasidone 2022-0 Yes 60mg Take 1 [facility] ([facility]) 60 6-27 capsule by [facility] mg capsule 00:00: mouth 2 [place] 00 (two) [facility] times [facility] daily with meals. ziprasidone 2022-0 Yes 60mg Take 1 [facility] ([facility]) 60 6-27 capsule by [facility] mg capsule 00:00: mouth 2 [place] 00 (two) [facility] times [facility] daily with meals. ziprasidone 2022-0 Yes 60mg Take 1 [facility] ([facility]) 60 6-27 capsule by [facility] mg capsule 00:00: mouth 2 [place] 00 (two) [facility] times [facility] daily with meals. ziprasidone 2022-0 Yes 60mg Take 1 [facility] ([facility]) 60 6-27 capsule by [facility] mg capsule 00:00: mouth 2 [place] 00 (two) [facility] times [facility] daily with meals. ziprasidone 2022-0 Yes 60mg Take 1 [facility] ([facility]) 60 6-27 capsule by [facility] mg capsule 00:00: mouth 2 [place] 00 (two) [facility] times [facility] daily with meals. ziprasidone 2022-0 Yes 60mg Take 1 [facility] ([facility]) 60 6-27 capsule by [facility] mg capsule 00:00: mouth 2 [place] 00 (two) [facility] times [facility] daily with meals. ziprasidone 2022-0 Yes 60mg Take 1 [facility] ([facility]) 60 6-27 capsule by [facility] mg capsule 00:00: mouth 2 [place] 00 (two) [facility] times [facility] daily with meals. ziprasidone 2022-0 Yes 60mg Take 1 [facility] ([facility]) 60 6-27 capsule by [facility] mg capsule 00:00: mouth 2 [place] 00 (two) [facility] times [facility] daily with meals. ziprasidone 2022-0 Yes 60mg Take 1 [facility] ([facility]) 60 6-27 capsule by [facility] mg capsule 00:00: mouth 2 [place] 00 (two) [facility] times [facility] daily with meals. ziprasidone 2022-0 Yes 60mg Take 1 [facility] ([facility]) 60 6-27 capsule by [facility] mg capsule 00:00: mouth 2 [place] 00 (two) [facility] times [facility] daily with meals. ziprasidone 2022-0 Yes 60mg Take 1 [facility] ([facility]) 60 6-27 capsule by [facility] mg capsule 00:00: mouth 2 [place] 00 (two) [facility] times [facility] daily with meals. ziprasidone 2022-0 Yes 60mg Take 1 [facility] ([facility]) 60 6-27 capsule by [facility] mg capsule 00:00: mouth 2 [place] 00 (two) [facility] times [facility] daily with meals. ziprasidone 2022-0 Yes 60mg Take 1 [facility] ([facility]) 60 6-27 capsule by [facility] mg capsule 00:00: mouth 2 [place] 00 (two) [facility] times [facility] daily with meals. ziprasidone 2022-0 Yes 60mg Take 1 [facility] ([facility]) 60 6-27 capsule by [facility] mg capsule 00:00: mouth 2 [place] 00 (two) [facility] times [facility] daily with meals. ziprasidone 2022-0 Yes 60mg Take 1 [facility] ([facility]) 60 6-27 capsule by [facility] mg capsule 00:00: mouth 2 [place] 00 (two) [facility] times [facility] daily with meals. ziprasidone 2022-0 Yes 60mg Take 1 [facility] ([facility]) 60 6-27 capsule by [facility] mg capsule 00:00: mouth 2 [place] 00 (two) [facility] times [facility] daily with meals. ziprasidone 2022-0 Yes 60mg Take 1 [facility] ([facility]) 60 6-27 capsule by [facility] mg capsule 00:00: mouth 2 [place] 00 (two) [facility] times [facility] daily with meals. ziprasidone 2022-0 Yes 60mg Take 1 [facility] ([facility]) 60 6-27 capsule by [facility] mg capsule 00:00: mouth 2 [place] 00 (two) [facility] times [facility] daily with meals. ziprasidone 2022-0 Yes 60mg Take 1 [facility] ([facility]) 60 6-27 capsule by [facility] mg capsule 00:00: mouth 2 [place] 00 (two) [facility] times [facility] daily with meals. ziprasidone 2022-0 Yes 60mg Take 1 [facility] ([facility]) 60 6-27 capsule by [facility] mg capsule 00:00: mouth 2 [place] 00 (two) [facility] times [facility] daily with meals. ziprasidone 2022-0 Yes 60mg Take 1 [facility] ([facility]) 60 6-27 capsule by [facility] mg capsule 00:00: mouth 2 [place] 00 (two) [facility] times [facility] daily with meals. ziprasidone 2022-0 Yes 60mg Take 1 [facility] ([facility]) 60 6-27 capsule by [facility] mg capsule 00:00: mouth 2 [place] 00 (two) [facility] times [facility] daily with meals. ziprasidone 2022-0 Yes 60mg Take 1 [facility] ([facility]) 60 6-27 capsule by [facility] mg capsule 00:00: mouth 2 [place] 00 (two) [facility] times [facility] daily with meals. ziprasidone 2022-0 Yes 60mg Take 1 [facility] ([facility]) 60 6-27 capsule by [facility] mg capsule 00:00: mouth 2 [place] 00 (two) [facility] times [facility] daily with meals. ziprasidone 2022-0 Yes 60mg Take 1 [facility] ([facility]) 60 6-27 capsule by [facility] mg capsule 00:00: mouth 2 [place] 00 (two) [facility] times [facility] daily with meals. ziprasidone 2022-0 Yes 60mg Take 1 [facility] ([facility]) 60 6-27 capsule by [facility] mg capsule 00:00: mouth 2 [place] 00 (two) [facility] times [facility] daily with meals. ziprasidone 2022-0 Yes 60mg Take 1 [facility] ([facility]) 60 6-27 capsule by [facility] mg capsule 00:00: mouth 2 [place] 00 (two) [facility] times [facility] daily with meals. ziprasidone 2022-0 Yes 60mg Take 1 [facility] ([facility]) 60 6-27 capsule by [facility] mg capsule 00:00: mouth 2 [place] 00 (two) [facility] times [facility] daily with meals. ziprasidone 2022-0 Yes 60mg Take 1 [facility] ([facility]) 60 6-27 capsule by [facility] mg capsule 00:00: mouth 2 [place] 00 (two) [facility] times [facility] daily with meals. ziprasidone 2022-0 Yes 60mg Take 1 [facility] ([facility]) 60 6-27 capsule by [facility] mg capsule 00:00: mouth 2 [place] 00 (two) [facility] times [facility] daily with meals. ziprasidone 2022-0 Yes 60mg Take 1 [facility] ([facility]) 60 6-27 capsule by [facility] mg capsule 00:00: mouth 2 [place] 00 (two) [facility] times [facility] daily with meals. HYDROcodone Yes 2745 1{tbl} Take 1 [facility] [place] -acetaminop 6-20 tablet by [facility] ([place]) 00:00: mouth 3 [place] 10-325 mg 00 (three) Medical tablet times [facility] daily. Indication s: chronic pain HYDROcodone 2021-0 Yes 2745 1{tbl} Take 1 [facility] [place] -acetaminop 6-20 tablet by [facility] ([place]) 00:00: mouth 3 [place] 10-325 mg 00 (three) Medical tablet times [facility] daily. Indication s: chronic pain HYDROcodone 2021- Yes 2745 1{tbl} Take 1 [facility] [place] -acetaminop 6-20 tablet by [facility] ([place]) 00:00: mouth 3 [place] 10-325 mg 00 (three) Medical tablet times [facility] daily. Indication s: chronic pain HYDROcodone Yes 2745 1{tbl} Take 1 [facility] [place] -acetaminop 6-20 tablet by [facility] ([place]) 00:00: mouth 3 [place] 10-325 mg 00 (three) Medical tablet times [facility] daily. Indication s: chronic pain HYDROcodone 2021- No 2745 1{tbl} Take 1 [facility] -acetaminop 6-20 07-18 tablet by [facility] ([place]) 00:00: 00:00 mouth 3 [place] 10-325 mg 00 :00 (three) Medical tablet times Branch daily. Indication s: chronic pain conjugated 2021- Yes 1g Insert 1 g [facility] est[facility] 6-06 into [facility] of 0.625 00:00: vagina [place] mg/gram 00 SEE-INSTRU [facility] vaginal CTIONS. Branch cream Apply small amount to vaginal opening 2 times a week phenazopyri Yes [id number] 200mg Take 2 [facility] 6-06 tablets by [facility] of (P[place]IDI[place]) 00:00: mouth 3 [place] 100 mg 00 (three) Medical tablet times [facility] daily. conjugated 2021- Yes 1g Insert 1 g [facility] 6-06 into [facility] of 0.625 00:00: vagina [place] mg/gram 00 SEE-INSTRU [facility] vaginal CTIONS. Branch cream Apply small amount to vaginal opening 2 times a week phenazopyri 2021-0 Yes [id number] 200mg Take 2 [facility] 6-06 tablets by [facility] ([place]) 00:00: mouth 3 [place] 100 mg 00 (three) Medical tablet times [facility] daily. conjugated 2021-0 Yes 1g Insert 1 g [facility] 6-06 into [facility] of 0.625 00:00: vagina [place] mg/gram 00 SEE-INSTRU Medica [facility] vaginal CTIONS. Branch cream Apply small amount to vaginal opening 2 times a week phenazopyri 2021-0 Yes [id number] 200mg Take 2 [facility] 6-06 tablets by [facility] of ([place]UM) 00:00: mouth 3 [place] 100 mg 00 (three) Medical tablet times Branch daily. conjugated 2021-0 Yes 1g Insert 1 g [facility] 6-06 into [facility] of 0.625 00:00: vagina [place] mg/gram 00 SEE-INSTRU Medica [facility] vaginal CTIONS. Branch cream Apply small amount to vaginal opening 2 times a week phenazopyri 2021-0 Yes [id number] 200mg Take 2 [facility] 6-06 tablets by [facility] of (P[place]UM) 00:00: mouth 3 [place] 100 mg 00 (three) Medical tablet times Branch daily. conjugated 2021-0 Yes 1g Insert 1 g [facility] est[facility] 6-06 into [facility] of 0.625 00:00: vagina [place] mg/gram 00 SEE-INSTRU Medica [facility] vaginal CTIONS. Branch cream Apply small amount to vaginal opening 2 times a week phenazopyri 2021-0 Yes [id number] 200mg Take 2 [facility] 6-06 tablets by [facility] of ([place]UM) 00:00: mouth 3 [place] 100 mg 00 (three) Medical tablet times Branch daily. conjugated 2021-0 Yes 1g Insert 1 g [facility] 6-06 into [facility] of 0.625 00:00: vagina [place] mg/gram 00 SEE-INSTRU Med[facility] vaginal CTIONS. Branch cream Apply small amount to vaginal opening 2 times a week phenazopyri 2021-0 Yes [id number] 200mg Take 2 [facility] 6-06 tablets by [facility] of ([place]) 00:00: mouth 3 [place] 100 mg 00 (three) Medical tablet times Branch daily. conjugated 2021-0 Yes 1g Insert 1 g [facility] 6-06 into [facility] of 0.625 00:00: vagina [place] mg/gram 00 SEE-INSTRU Medica [facility] vaginal CTIONS. Branch cream Apply small amount to vaginal opening 2 times a week phenazopyri 2021-0 Yes [id number] 200mg Take 2 [facility] 6-06 tablets by [facility] of ([place]) 00:00: mouth 3 [place] 100 mg 00 (three) Medical tablet times Branch daily. conjugated 2021-0 Yes 1g Insert 1 g [facility] 6-06 into [facility] of 0.625 00:00: vagina [place] mg/gram 00 SEE-INSTRU Medica [facility] vaginal CTIONS. Branch cream Apply small amount to vaginal opening 2 times a week phenazopyri 2021-0 Yes [id number] 200mg Take 2 [facility] 6-06 tablets by [facility] of ([place]UM) 00:00: mouth 3 [place] 100 mg 00 (three) Medical tablet times Branch daily. conjugated 2021-0 Yes 1g Insert 1 g [facility] 6-06 into [facility] of 0.625 00:00: vagina [place] mg/gram 00 SEE-INSTRU Med[facility] vaginal CTIONS. Branch cream Apply small amount to vaginal opening 2 times a week phenazopyri 2021-0 Yes [id number] 200mg Take 2 [facility] 6-06 tablets by [facility] of ([place]) 00:00: mouth 3 [place] 100 mg 00 (three) Medical tablet times Branch daily. conjugated 2021-0 Yes 1g Insert 1 g [facility] 6-06 into [facility] of 0.625 00:00: vagina [place] mg/gram 00 SEE-INSTRU Med[facility] vaginal CTIONS. Branch cream Apply small amount to vaginal opening 2 times a week phenazopyri 2021-0 Yes [id number] 200mg Take 2 [facility] 6-06 tablets by [facility] of ([place]) 00:00: mouth 3 [place] 100 mg 00 (three) Medical tablet times Branch daily. conjugated 2021-0 Yes 1g Insert 1 g [facility] est[facility] 6-06 into [facility] of 0.625 00:00: vagina [place] mg/gram 00 SEE-INSTRU Medica [facility] vaginal CTIONS. Branch cream Apply small amount to vaginal opening 2 times a week phenazopyri 2021-0 Yes [id number] 200mg Take 2 [facility] 6-06 tablets by [facility] of (P[place]ID[place]UM) 00:00: mouth 3 [place] 100 mg 00 (three) Medical tablet times Branch daily. conjugated 2021-0 Yes 1g Insert 1 g [facility] est[facility] 6-06 into [facility]y of 0.625 00:00: vagina [place] mg/gram 00 SEE-INSTRU Medica [facility] vaginal CTIONS. Branch cream Apply small amount to vaginal opening 2 times a week phenazopyri 2021-0 Yes [id number] 200mg Take 2 [facility] 6-06 tablets by [facility] of ([place]) 00:00: mouth 3 [place] 100 mg 00 (three) Medical tablet times Branch daily. conjugated 2021-0 Yes 1g Insert 1 g [facility] 6-06 into [facility] of 0.625 00:00: vagina [place] mg/gram 00 SEE-INSTRU Medica [facility] vaginal CTIONS. Branch cream Apply small amount to vaginal opening 2 times a week phenazopyri 2021-0 Yes [id number] 200mg Take 2 [facility] 6-06 tablets by [facility] of ([place]UM) 00:00: mouth 3 [place] 100 mg 00 (three) Medical tablet times Branch daily. conjugated 2021-0 Yes 1g Insert 1 g [facility] 6-06 into [facility] of 0.625 00:00: vagina [place] mg/gram 00 SEE-INSTRU Med[facility] vaginal CTIONS. Branch cream Apply small amount to vaginal opening 2 times a week phenazopyri 2021-0 Yes [id number] 200mg Take 2 [facility] 6-06 tablets by [facility] of ([place]) 00:00: mouth 3 [place] 100 mg 00 (three) Medical tablet times Branch daily. conjugated 2021-0 Yes 1g Insert 1 g [facility] 6-06 into [facility]y of 0.625 00:00: vagina [place] mg/gram 00 SEE-INSTRU Medica [facility] vaginal CTIONS. Branch cream Apply small amount to vaginal opening 2 times a week phenazopyri 2021-0 Yes [id number] 200mg Take 2 [facility] 6-06 tablets by [facility] of ([place]UM) 00:00: mouth 3 [place] 100 mg 00 (three) Medical tablet times Branch daily. conjugated 2021- Yes 1g Insert 1 g [facility] 6-06 into [facility]y of 0.625 00:00: vagina [place] mg/gram 00 SEE-INSTRU Med[facility] vaginal CTIONS. Branch cream Apply small amount to vaginal opening 2 times a week conjugated 2021-0 Yes 1g Insert 1 g [facility] 6-06 into [facility]y of 0.625 00:00: vagina [place] mg/gram 00 SEE-INSTRU Med[facility] vaginal CTIONS. Branch cream Apply small amount to vaginal opening 2 times a week conjugated 2021-0 Yes 1g Insert 1 g [facility] 6-06 into ity of 0.625 00:00: vagina [place] mg/gram 00 SEE-INSTRU Med[facility] vaginal CTIONS. Branch cream Apply small amount to vaginal opening 2 times a week conjugated 2021-0 Yes 1g Insert 1 g [facility] est[facility] 6-06 into [facility]y of 0.625 00:00: vagina [place] mg/gram 00 SEE-INSTRU Med[facility] vaginal CTIONS. Branch cream Apply small amount to vaginal opening 2 times a week conjugated 2021-0 Yes 1g Insert 1 g [facility] est[facility] 6-06 into ity of 0.625 00:00: vagina [place] mg/gram 00 SEE-INSTRU Medica [facility] vaginal CTIONS. Branch cream Apply small amount to vaginal opening 2 times a week conjugated 2021-0 Yes 1g Insert 1 g [facility] est[facility] 6-06 into ity of 0.625 00:00: vagina [place] mg/gram 00 SEE-INSTRU Medica [facility] vaginal CTIONS. Branch cream Apply small amount to vaginal opening 2 times a week conjugated 2021-0 Yes 1g Insert 1 g [facility] 6-06 into ity of 0.625 00:00: vagina [place] mg/gram 00 SEE-INSTRU Medica [facility] vaginal CTIONS. Branch cream Apply small amount to vaginal opening 2 times a week conjugated 2021-0 Yes 1g Insert 1 g [facility] 6-06 into ity of 0.625 00:00: vagina [place] mg/gram 00 SEE-INSTRU Medica [facility] vaginal CTIONS. Branch cream Apply small amount to vaginal opening 2 times a week conjugated 2021-0 Yes 1g Insert 1 g [facility] 6-06 into ity of 0.625 00:00: vagina [place] mg/gram 00 SEE-INSTRU Medica [facility] vaginal CTIONS. Branch cream Apply small amount to vaginal opening 2 times a week conjugated 2021-0 Yes 1g Insert 1 g [facility] est[facility] 6-06 into ity of 0.625 00:00: vagina [place] mg/gram 00 SEE-INSTRU Medica [facility] vaginal CTIONS. Branch cream Apply small amount to vaginal opening 2 times a week conjugated 2021-0 Yes 1g Insert 1 g [facility] est[facility] 6-06 into ity of 0.625 00:00: vagina [place] mg/gram 00 SEE-INSTRU Medica [facility] vaginal CTIONS. Branch cream Apply small amount to vaginal opening 2 times a week conjugated 2021-0 Yes 1g Insert 1 g [facility] est[facility] 6-06 into ity of 0.625 00:00: vagina [place] mg/gram 00 SEE-INSTRU Medica [facility] vaginal CTIONS. Branch cream Apply small amount to vaginal opening 2 times a week conjugated 2021-0 Yes 1g Insert 1 g [facility] estrogens 6-06 into ity of 0.625 00:00: vagina [place] mg/gram 00 SEE-INSTRU Medica [facility] vaginal CTIONS. Branch cream Apply small amount to vaginal opening 2 times a week conjugated 2021-0 Yes 1g Insert 1 g [facility] estrogens 6-06 into ity of 0.625 00:00: vagina [place] mg/gram 00 SEE-INSTRU Medica [facility] vaginal CTIONS. Branch cream Apply small amount to vaginal opening 2 times a week conjugated 2021-0 Yes 1g Insert 1 g [facility] estrogens 6-06 into ity of 0.625 00:00: vagina [place] mg/gram 00 SEE-INSTRU Medica [facility] vaginal CTIONS. Branch cream Apply small amount to vaginal opening 2 times a week conjugated 2021-0 Yes 1g Insert 1 g [facility] estrogens 6-06 into ity of 0.625 00:00: vagina [place] mg/gram 00 SEE-INSTRU Medica l vaginal CTIONS. Branch cream Apply small amount to vaginal opening 2 times a week conjugated 2021-0 Yes 1g Insert 1 g [facility] estrogens 6-06 into ity of 0.625 00:00: vagina [place] mg/gram 00 SEE-INSTRU Medica l vaginal CTIONS. Branch cream Apply small amount to vaginal opening 2 times a week conjugated 2021-0 Yes 1g Insert 1 g [facility] estrogens 6-06 into ity of 0.625 00:00: vagina [place] mg/gram 00 SEE-INSTRU Medica [facility] vaginal CTIONS. Branch cream Apply small amount to vaginal opening 2 times a week conjugated 2021-0 Yes 1g Insert 1 g [facility] estrogens 6-06 into ity of 0.625 00:00: vagina [place] mg/gram 00 SEE-INSTRU Medica [facility] vaginal CTIONS. Branch cream Apply small amount to vaginal opening 2 times a week conjugated 2021-0 Yes 1g Insert 1 g [facility] estrogens 6-06 into ity of 0.625 00:00: vagina [place] mg/gram 00 SEE-INSTRU [facility] vaginal CTIONS. Branch cream Apply small amount to vaginal opening 2 times a week conjugated 2021-0 Yes 1g Insert 1 g [facility] estrogens 6-06 into ity of 0.625 00:00: vagina [place] mg/gram 00 SEE-INSTRU [facility] vaginal CTIONS. Branch cream Apply small amount to vaginal opening 2 times a week conjugated 2021-0 Yes 1g Insert 1 g [facility] estrogens 6-06 into ity of 0.625 00:00: vagina [place] mg/gram 00 SEE-INSTRU [facility] vaginal CTIONS. Branch cream Apply small amount to vaginal opening 2 times a week conjugated 2021-0 Yes 1g Insert 1 g [facility] estrogens 6-06 into ity of 0.625 00:00: vagina [place] mg/gram 00 SEE-INSTRU [facility] vaginal CTIONS. Branch cream Apply small amount to vaginal opening 2 times a week conjugated 2021-0 Yes 1g Insert 1 g [facility] estrogens 6-06 into ity of 0.625 00:00: vagina [place] mg/gram 00 SEE-INSTRU [facility] vaginal CTIONS. Branch cream Apply small amount to vaginal opening 2 times a week conjugated 2021-0 Yes 1g Insert 1 g [facility] estrogens 6-06 into ity of 0.625 00:00: vagina [place] mg/gram 00 SEE-INSTRU [facility] vaginal CTIONS. Branch cream Apply small amount to vaginal opening 2 times a week conjugated 2021-0 Yes 1g Insert 1 g [facility] estrogens 6-06 into ity of 0.625 00:00: vagina [place] mg/gram 00 SEE-INSTRU [facility] vaginal CTIONS. Branch cream Apply small amount to vaginal opening 2 times a week conjugated 2021-0 Yes 1g Insert 1 g [facility] estrogens 6-06 into ity of 0.625 00:00: vagina [place] mg/gram 00 SEE-INSTRU [facility] vaginal CTIONS. Branch cream Apply small amount to vaginal opening 2 times a week conjugated 2021-0 Yes 1g Insert 1 g [facility] estrogens 6-06 into ity of 0.625 00:00: vagina [place] mg/gram 00 SEE-INSTRU [facility] vaginal CTIONS. Branch cream Apply small amount to vaginal opening 2 times a week conjugated 2021-0 Yes 1g Insert 1 g [facility] estrogens 6-06 into ity of 0.625 00:00: vagina [place] mg/gram 00 SEE-INSTRU [facility] vaginal CTIONS. Branch cream Apply small amount to vaginal opening 2 times a week conjugated 2021-0 Yes 1g Insert 1 g [facility] estrogens 6-06 into ity of 0.625 00:00: vagina [place] mg/gram 00 SEE-INSTRU [facility] vaginal CTIONS. Branch cream Apply small amount to vaginal opening 2 times a week conjugated 2021-0 Yes 1g Insert 1 g [facility] estrogens 6-06 into ity of 0.625 00:00: vagina [place] mg/gram 00 SEE-INSTRU Med[facility] vaginal CTIONS. Branch cream Apply small amount to vaginal opening 2 times a week conjugated 2021-0 Yes 1g Insert 1 g [facility] estrogens 6-06 into ity of 0.625 00:00: vagina [place] mg/gram 00 SEE-INSTRU [facility] vaginal CTIONS. Branch cream Apply small amount to vaginal opening 2 times a week conjugated 2-0 Yes 1g Insert 1 g [facility] estrogens 6-06 into ity of 0.625 00:00: vagina [place] mg/gram 00 SEE-INSTRU [facility] vaginal CTIONS. Branch cream Apply small amount to vaginal opening 2 times a week conjugated 2021-0 Yes 1g Insert 1 g [facility] estrogens 6-06 into ity of 0.625 00:00: vagina [place] mg/gram 00 SEE-INSTRU [facility] vaginal CTIONS. Branch cream Apply small amount to vaginal opening 2 times a week conjugated 2022-0 Yes 1g Insert 1 g [facility] estrogens 6-06 into ity of 0.625 00:00: vagina [place] mg/gram 00 SEE-INSTRU [facility] vaginal CTIONS. Branch cream Apply small amount to vaginal opening 2 times a week conjugated 2021-0 Yes 1g Insert 1 g [facility] estrogens 6-06 into ity of 0.625 00:00: vagina [place] mg/gram 00 SEE-INSTRU [facility] vaginal CTIONS. Branch cream Apply small amount to vaginal opening 2 times a week conjugated 2021-0 Yes 1g Insert 1 g [facility] estrogens 6-06 into ity of 0.625 00:00: vagina [place] mg/gram 00 SEE-INSTRU [facility] vaginal CTIONS. Branch cream Apply small amount to vaginal opening 2 times a week conjugated 2021-0 Yes 1g Insert 1 g [facility] estrogens 6-06 into ity of 0.625 00:00: vagina [place] mg/gram 00 SEE-INSTRU [facility] vaginal CTIONS. Branch cream Apply small amount to vaginal opening 2 times a week conjugated 2021-0 Yes 1g Insert 1 g [facility] estrogens 6-06 into ity of 0.625 00:00: vagina [place] mg/gram 00 SEE-INSTRU [facility] vaginal CTIONS. Branch cream Apply small amount to vaginal opening 2 times a week phenazopyri 2021-0 Yes [id number] 200mg Take 2 [facility] dine 6-06 tablets by ity of (PYRIDIUM) 00:00: mouth 3 [place] 100 mg 00 (three) Medical tablet times Branch daily. conjugated 2021-0 Yes 1g Insert 1 g [facility] estrogens 6-06 into ity of 0.625 00:00: vagina [place] mg/gram 00 SEE-INSTRU [facility] vaginal CTIONS. [facility] cream Apply small amount to vaginal opening 2 times a week phenazopyri 2021-0 Yes [id number] 200mg Take 2 [facility] dine 6-06 tablets by ity of (PYRIDIUM) 00:00: mouth 3 [place] 100 mg 00 (three) Medical tablet times Branch daily. conjugated 2021-0 Yes 1g Insert 1 g [facility] estrogens 6-06 into ity of 0.625 00:00: vagina [place] mg/gram 00 SEE-INSTRU [facility] vaginal CTIONS. [facility] cream Apply small amount to vaginal opening 2 times a week phenazopyri 2021-0 Yes [id number] 200mg Take 2 [facility] dine 6-06 tablets by ity of (PYRIDIUM) 00:00: mouth 3 [place] 100 mg 00 (three) Medical tablet times Branch daily. conjugated 2021-0 Yes 1g Insert 1 g [facility] estrogens 6-06 into ity of 0.625 00:00: vagina [place] mg/gram 00 SEE-INSTRU [facility] vaginal CTIONS. [facility] cream Apply small amount to vaginal opening 2 times a week phenazopyri 2021-0 Yes [id number] 200mg Take 2 [facility] dine 6-06 tablets by ity of (PYRIDIUM) 00:00: mouth 3 [place] 100 mg 00 (three) Medical tablet times Branch daily. conjugated 2021-0 Yes 1g Insert 1 g [facility] estrogens 6-06 into ity of 0.625 00:00: vagina [place] mg/gram 00 SEE-INSTRU [facility] vaginal CTIONS. [facility] cream Apply small amount to vaginal opening 2 times a week phenazopyri 2021-0 Yes [id number] 200mg Take 2 [facility] dine 6-06 tablets by ity of (PYRIDIUM) 00:00: mouth 3 [place] 100 mg 00 (three) Medical tablet times Branch daily. conjugated 2021-0 Yes 1g Insert 1 g [facility] estrogens 6-06 into ity of 0.625 00:00: vagina [place] mg/gram 00 SEE-INSTRU [facility] vaginal CTIONS. [facility] cream Apply small amount to vaginal opening 2 times a week phenazopyri 2021-0 Yes [id number] 200mg Take 2 [facility] dine 6-06 tablets by ity of (PYRIDIUM) 00:00: mouth 3 [place] 100 mg 00 (three) Medical tablet times Branch daily. conjugated 2021-0 Yes 1g Insert 1 g [facility] estrogens 6-06 into ity of 0.625 00:00: vagina [place] mg/gram 00 SEE-INSTRU Med[facility] vaginal CTIONS. [facility] cream Apply small amount to vaginal opening 2 times a week phenazopyri 2021-0 Yes [id number] 200mg Take 2 [facility] dine 6-06 tablets by ity of (PYRIDIUM) 00:00: mouth 3 [place] 100 mg 00 (three) Medical tablet times Branch daily. conjugated 2021-0 Yes 1g Insert 1 g [facility] estrogens 6-06 into ity of 0.625 00:00: vagina [place] mg/gram 00 SEE-INSTRU [facility] vaginal CTIONS. [facility] cream Apply small amount to vaginal opening 2 times a week phenazopyri 2021-0 Yes [id number] 200mg Take 2 [facility] dine 6-06 tablets by ity of (PYRIDIUM) 00:00: mouth 3 [place] 100 mg 00 (three) Medical tablet times Branch daily. conjugated 2021-0 Yes 1g Insert 1 g [facility] estrogens 6-06 into ity of 0.625 00:00: vagina [place] mg/gram 00 SEE-INSTRU [facility] vaginal CTIONS. [facility] cream Apply small amount to vaginal opening 2 times a week phenazopyri 2021-0 Yes [id number] 200mg Take 2 [facility] dine 6-06 tablets by ity of (PYRIDIUM) 00:00: mouth 3 [place] 100 mg 00 (three) Medical tablet times Branch daily. conjugated 2021-0 Yes 1g Insert 1 g [facility] estrogens 6-06 into ity of 0.625 00:00: vagina [place] mg/gram 00 SEE-INSTRU Med[facility] vaginal CTIONS. [facility] cream Apply small amount to vaginal opening 2 times a week phenazopyri 2021-0 Yes [id number] 200mg Take 2 [facility] dine 6-06 tablets by ity of (PYRIDIUM) 00:00: mouth 3 [place] 100 mg 00 (three) Medical tablet times Branch daily. conjugated 2021-0 Yes 1g Insert 1 g [facility] estrogens 6-06 into ity of 0.625 00:00: vagina [place] mg/gram 00 SEE-INSTRU Med[facility] vaginal CTIONS. [facility] cream Apply small amount to vaginal opening 2 times a week phenazopyri 2021-0 Yes [id number] 200mg Take 2 [facility] dine 6-06 tablets by ity of (PYRIDIUM) 00:00: mouth 3 [place] 100 mg 00 (three) Medical tablet times Branch daily. conjugated 2021-0 Yes 1g Insert 1 g [facility] estrogens 6-06 into ity of 0.625 00:00: vagina [place] mg/gram 00 SEE-INSTRU Med[facility] vaginal CTIONS. Branch cream Apply small amount to vaginal opening 2 times a week phenazopyri 2021-0 Yes [id number] 200mg Take 2 [facility] dine 6-06 tablets by ity of (PYRIDIUM) 00:00: mouth 3 [place] 100 mg 00 (three) Medical tablet times Branch daily. conjugated 2-0 Yes 1g Insert 1 g [facility] estrogens 6-06 into ity of 0.625 00:00: vagina [place] mg/gram 00 SEE-INSTRU [facility] vaginal CTIONS. Branch cream Apply small amount to vaginal opening 2 times a week phenazopyri 2021-0 Yes [id number] 200mg Take 2 [facility] dine 6-06 tablets by ity of (PYRIDIUM) 00:00: mouth 3 [place] 100 mg 00 (three) Medical tablet times Branch daily. conjugated 2021-0 Yes 1g Insert 1 g [facility] estrogens 6-06 into ity of 0.625 00:00: vagina [place] mg/gram 00 SEE-INSTRU Med[facility] vaginal CTIONS. Branch cream Apply small amount to vaginal opening 2 times a week phenazopyri 2021-0 Yes [id number] 200mg Take 2 [facility] dine 6-06 tablets by ity of (PYRIDIUM) 00:00: mouth 3 [place] 100 mg 00 (three) Medical tablet times Branch daily. conjugated 2021-0 Yes 1g Insert 1 g [facility] estrogens 6-06 into ity of 0.625 00:00: vagina [place] mg/gram 00 SEE-INSTRU Med[facility] vaginal CTIONS. Branch cream Apply small amount to vaginal opening 2 times a week phenazopyri 2021-0 Yes [id number] 200mg Take 2 [facility] dine 6-06 tablets by ity of (PYRIDIUM) 00:00: mouth 3 [place] 100 mg 00 (three) Medical tablet times Branch daily. conjugated 2-0 Yes 1g Insert 1 g [facility] estrogens 6-06 into ity of 0.625 00:00: vagina [place] mg/gram 00 SEE-INSTRU Med[facility] vaginal CTIONS. Branch cream Apply small amount to vaginal opening 2 times a week phenazopyri 2021-0 Yes [id number] 200mg Take 2 [facility] dine 6-06 tablets by ity of (PYRIDIUM) 00:00: mouth 3 [place] 100 mg 00 (three) Medical tablet times Branch daily. conjugated 2021-0 Yes 1g Insert 1 g [facility] estrogens 6-06 into ity of 0.625 00:00: vagina [place] mg/gram 00 SEE-INSTRU Med[facility] vaginal CTIONS. [facility] cream Apply small amount to vaginal opening 2 times a week phenazopyri 2021-0 Yes [id number] 200mg Take 2 [facility] dine 6-06 tablets by ity of (PYRIDIUM) 00:00: mouth 3 [place] 100 mg 00 (three) Medical tablet times Branch daily. conjugated 2021-0 Yes 1g Insert 1 g [facility] estrogens 6-06 into ity of 0.625 00:00: vagina [place] mg/gram 00 SEE-INSTRU Medica l vaginal CTIONS. Branch cream Apply small amount to vaginal opening 2 times a week phenazopyri 2021-0 Yes [id number] 200mg Take 2 [facility] dine 6-06 tablets by ity of (PYRIDIUM) 00:00: mouth 3 [place] 100 mg 00 (three) Medical tablet times Branch daily. conjugated 2021-0 Yes 1g Insert 1 g [facility] estrogens 6-06 into ity of 0.625 00:00: vagina [place] mg/gram 00 SEE-INSTRU Med[facility] vaginal CTIONS. Branch cream Apply small amount to vaginal opening 2 times a week phenazopyri 2021-0 Yes [id number] 200mg Take 2 [facility] dine 6-06 tablets by ity of (PYRIDIUM) 00:00: mouth 3 [place] 100 mg 00 (three) Medical tablet times Branch daily. conjugated 2021-0 Yes 1g Insert 1 g [facility] estrogens 6-06 into ity of 0.625 00:00: vagina [place] mg/gram 00 SEE-INSTRU Med[facility] vaginal CTIONS. [facility] cream Apply small amount to vaginal opening 2 times a week phenazopyri 2021-0 Yes [id number] 200mg Take 2 [facility] dine 6-06 tablets by ity of (PYRIDIUM) 00:00: mouth 3 [place] 100 mg 00 (three) Medical tablet times Branch daily. conjugated 2021-0 Yes 1g Insert 1 g [facility] estrogens 6-06 into ity of 0.625 00:00: vagina [place] mg/gram 00 SEE-INSTRU Med[facility] vaginal CTIONS. Branch cream Apply small amount to vaginal opening 2 times a week phenazopyri 2021-0 Yes [id number] 200mg Take 2 [facility] dine 6-06 tablets by ity of (PYRIDIUM) 00:00: mouth 3 [place] 100 mg 00 (three) Medical tablet times Branch daily. conjugated 2021-0 Yes 1g Insert 1 g [facility] estrogens 6-06 into ity of 0.625 00:00: vagina [place] mg/gram 00 SEE-INSTRU Medica [facility] vaginal CTIONS. Branch cream Apply small amount to vaginal opening 2 times a week phenazopyri 2021-0 Yes [id number] 200mg Take 2 [facility] dine 6-06 tablets by ity of (PYRIDIUM) 00:00: mouth 3 [place] 100 mg 00 (three) Medical tablet times Branch daily. conjugated 2021-0 Yes 1g Insert 1 g [facility] estrogens 6-06 into ity of 0.625 00:00: vagina [place] mg/gram 00 SEE-INSTRU Med[facility] vaginal CTIONS. Branch cream Apply small amount to vaginal opening 2 times a week phenazopyri 2021-0 Yes [id number] 200mg Take 2 [facility] dine 6-06 tablets by ity of (PYRIDIUM) 00:00: mouth 3 [place] 100 mg 00 (three) Medical tablet times Branch daily. conjugated 2021-0 Yes 1g Insert 1 g [facility] estrogens 6-06 into ity of 0.625 00:00: vagina [place] mg/gram 00 SEE-INSTRU Med[facility] vaginal CTIONS. Branch cream Apply small amount to vaginal opening 2 times a week phenazopyri 2021-0 Yes [id number] 200mg Take 2 [facility] dine 6-06 tablets by ity of (PYRIDIUM) 00:00: mouth 3 [place] 100 mg 00 (three) Medical tablet times Branch daily. conjugated 2021-0 Yes 1g Insert 1 g [facility] estrogens 6-06 into ity of 0.625 00:00: vagina [place] mg/gram 00 SEE-INSTRU Medica [facility] vaginal CTIONS. Branch cream Apply small amount to vaginal opening 2 times a week phenazopyri 2021-0 Yes [id number] 200mg Take 2 [facility] dine 6-06 tablets by ity of (PYRIDIUM) 00:00: mouth 3 [place] 100 mg 00 (three) Medical tablet times Branch daily. conjugated 2021-0 Yes 1g Insert 1 g [facility] estrogens 6-06 into ity of 0.625 00:00: vagina [place] mg/gram 00 SEE-INSTRU Medica [facility] vaginal CTIONS. Branch cream Apply small amount to vaginal opening 2 times a week phenazopyri 2021-0 Yes [id number] 200mg Take 2 [facility] dine 6-06 tablets by ity of (PYRIDIUM) 00:00: mouth 3 [place] 100 mg 00 (three) Medical tablet times Branch daily. conjugated 2021-0 Yes 1g Insert 1 g [facility] estrogens 6-06 into ity of 0.625 00:00: vagina [place] mg/gram 00 SEE-INSTRU Med[facility] vaginal CTIONS. Branch cream Apply small amount to vaginal opening 2 times a week phenazopyri 2021-0 Yes [id number] 200mg Take 2 [facility] dine 6-06 tablets by ity of (PYRIDIUM) 00:00: mouth 3 [place] 100 mg 00 (three) Medical tablet times Branch daily. conjugated 2021-0 Yes 1g Insert 1 g [facility] estrogens 6-06 into ity of 0.625 00:00: vagina [place] mg/gram 00 SEE-INSTRU Med[facility] vaginal CTIONS. Branch cream Apply small amount to vaginal opening 2 times a week phenazopyri 2021-0 Yes [id number] 200mg Take 2 [facility] dine 6-06 tablets by ity of (PYRIDIUM) 00:00: mouth 3 [place] 100 mg 00 (three) Medical tablet times Branch daily. conjugated 2021-0 Yes 1g Insert 1 g [facility] estrogens 6-06 into ity of 0.625 00:00: vagina [place] mg/gram 00 SEE-INSTRU Medica l vaginal CTIONS. Branch cream Apply small amount to vaginal opening 2 times a week phenazopyri 2021-0 Yes [id number] 200mg Take 2 [facility] dine 6-06 tablets by ity of (PYRIDIUM) 00:00: mouth 3 [place] 100 mg 00 (three) Medical tablet times Branch daily. conjugated 2021-0 Yes 1g Insert 1 g [facility] estrogens 6-06 into ity of 0.625 00:00: vagina [place] mg/gram 00 SEE-INSTRU Med[facility] vaginal CTIONS. Branch cream Apply small amount to vaginal opening 2 times a week phenazopyri 2021-0 Yes [id number] 200mg Take 2 [facility] dine 6-06 tablets by ity of (PYRIDIUM) 00:00: mouth 3 [place] 100 mg 00 (three) Medical tablet times Branch daily. conjugated 2021-0 Yes 1g Insert 1 g [facility] estrogens 6-06 into ity of 0.625 00:00: vagina [place] mg/gram 00 SEE-INSTRU Medica l vaginal CTIONS. Branch cream Apply small amount to vaginal opening 2 times a week phenazopyri 2021-0 Yes [id number] 200mg Take 2 [facility] dine 6-06 tablets by ity of (PYRIDIUM) 00:00: mouth 3 [place] 100 mg 00 (three) Medical tablet times Branch daily. conjugated 2021-0 Yes 1g Insert 1 g [facility] estrogens 6-06 into ity of 0.625 00:00: vagina [place] mg/gram 00 SEE-INSTRU Medica l vaginal CTIONS. Branch cream Apply small amount to vaginal opening 2 times a week phenazopyri 2021-0 Yes [id number] 200mg Take 2 [facility] dine 6-06 tablets by ity of (PYRIDIUM) 00:00: mouth 3 [place] 100 mg 00 (three) Medical tablet times Branch daily. conjugated 2021-0 Yes 1g Insert 1 g [facility] estrogens 6-06 into ity of 0.625 00:00: vagina [place] mg/gram 00 SEE-INSTRU Medica l vaginal CTIONS. Branch cream Apply small amount to vaginal opening 2 times a week phenazopyri 2021-0 Yes [id number] 200mg Take 2 [facility] dine 6-06 tablets by ity of (PYRIDIUM) 00:00: mouth 3 [place] 100 mg 00 (three) Medical tablet times Branch daily. conjugated 2021-0 Yes 1g Insert 1 g [facility] estrogens 6-06 into ity of 0.625 00:00: vagina [place] mg/gram 00 SEE-INSTRU Medica l vaginal CTIONS. Branch cream Apply small amount to vaginal opening 2 times a week phenazopyri 2021-0 Yes [id number] 200mg Take 2 [facility] dine 6-06 tablets by ity of (PYRIDIUM) 00:00: mouth 3 [place] 100 mg 00 (three) Medical tablet times Branch daily. conjugated 2021-0 Yes 1g Insert 1 g [facility] estrogens 6-06 into ity of 0.625 00:00: vagina [place] mg/gram 00 SEE-INSTRU Medica l vaginal CTIONS. Branch cream Apply small amount to vaginal opening 2 times a week phenazopyri 2021-0 Yes [id number] 200mg Take 2 [facility] dine 6-06 tablets by ity of (PYRIDIUM) 00:00: mouth 3 [place] 100 mg 00 (three) Medical tablet times Branch daily. conjugated 2021-0 Yes 1g Insert 1 g [facility] estrogens 6-06 into ity of 0.625 00:00: vagina [place] mg/gram 00 SEE-INSTRU Medica l vaginal CTIONS. Branch cream Apply small amount to vaginal opening 2 times a week phenazopyri 2021-0 Yes [id number] 200mg Take 2 [facility] dine 6-06 tablets by ity of (PYRIDIUM) 00:00: mouth 3 [place] 100 mg 00 (three) Medical tablet times Branch daily. conjugated 2021-0 Yes 1g Insert 1 g [facility] estrogens 6-06 into ity of 0.625 00:00: vagina [place] mg/gram 00 SEE-INSTRU Medica l vaginal CTIONS. Branch cream Apply small amount to vaginal opening 2 times a week phenazopyri 2021-0 Yes [id number] 200mg Take 2 [facility] dine 6-06 tablets by ity of (PYRIDIUM) 00:00: mouth 3 [place] 100 mg 00 (three) Medical tablet times Branch daily. conjugated 2021-0 Yes 1g Insert 1 g [facility] estrogens 6-06 into ity of 0.625 00:00: vagina [place] mg/gram 00 SEE-INSTRU Medica l vaginal CTIONS. Branch cream Apply small amount to vaginal opening 2 times a week phenazopyri 2021-0 Yes [id number] 200mg Take 2 [facility] dine 6-06 tablets by ity of (PYRIDIUM) 00:00: mouth 3 [place] 100 mg 00 (three) Medical tablet times Branch daily. conjugated 2021-0 Yes 1g Insert 1 g [facility] estrogens 6-06 into ity of 0.625 00:00: vagina [place] mg/gram 00 SEE-INSTRU Medica l vaginal CTIONS. Branch cream Apply small amount to vaginal opening 2 times a week phenazopyri 2021-0 Yes [id number] 200mg Take 2 [facility] dine 6-06 tablets by ity of (PYRIDIUM) 00:00: mouth 3 [place] 100 mg 00 (three) Medical tablet times Branch daily. conjugated 2021-0 Yes [id number] 1g Insert 1 g [facility] estrogens 6-06 into ity of 0.625 00:00: vagina [place] mg/gram 00 SEE-INSTRU Medica l vaginal CTIONS. Branch cream Apply small amount to vaginal opening 2 times a week phenazopyri 2021-0 Yes [id number] 200mg Take 2 [facility] dine 6-06 tablets by ity of (PYRIDIUM) 00:00: mouth 3 [place] 100 mg 00 (three) Medical tablet times Branch daily. conjugated 2021-0 Yes [id number] 1g Insert 1 g [facility] estrogens 6-06 into ity of 0.625 00:00: vagina [place] mg/gram 00 SEE-INSTRU Medica l vaginal CTIONS. [facility] cream Apply small amount to vaginal opening 2 times a week phenazopyri 2021-0 Yes [id number] 200mg Take 2 [facility] dine 6-06 tablets by ity of (PYRIDIUM) 00:00: mouth 3 [place] 100 mg 00 (three) Medical tablet times Branch daily. conjugated 2021-0 Yes [id number] 1g Insert 1 g [facility] estrogens 6-06 into ity of 0.625 00:00: vagina [place] mg/gram 00 SEE-INSTRU Medica l vaginal CTIONS. [facility] cream Apply small amount to vaginal opening 2 times a week phenazopyri 2021-0 Yes [id number] 200mg Take 2 [facility] dine 6-06 tablets by ity of (PYRIDIUM) 00:00: mouth 3 [place] 100 mg 00 (three) Medical tablet times Branch daily. phenazopyri 2021-0 3- No [id number] 200mg Take 2 [facility] dine 6-06 03-27 tablets by ity of (PYRIDIUM) 00:00: 00:00 mouth 3 [place] 100 mg 00 :00 (three) Medical tablet times Branch daily. pregabalin 2021-0 2- No [id number] 150mg Take 1 [facility] 150 mg 5-27 -30 capsule by ity of capsule 00:00: 00:00 mouth 3 [place] 00 :00 (three) Medical times Branch daily. celecoxib 2022-0 Yes [id number] 200mg Take 1 [facility] 200 mg 5-09 capsule by ity of capsule 00:00: mouth [place] 00 daily. Medical Branch celecoxib 2022-0 Yes [id number] 200mg Take 1 [facility] 200 mg 5-09 capsule by ity of capsule 00:00: mouth [place] 00 daily. Medical Branch celecoxib 2022-0 Yes [id number] 200mg Take 1 [facility] 200 mg 5-09 capsule by ity of capsule 00:00: mouth [place] 00 daily. Medical [facility] celecoxib 2022-0 Yes [id number] 200mg Take 1 [facility] 200 mg 5-09 capsule by ity of capsule 00:00: mouth [place] 00 daily. Medical Branch celecoxib 2022-0 Yes [id number] 200mg Take 1 [facility] 200 mg 5-09 capsule by ity of capsule 00:00: mouth [place] 00 daily. Medical [facility] celecoxib 2022-0 Yes [id number] 200mg Take 1 [facility] 200 mg 5-09 capsule by ity of capsule 00:00: mouth [place] 00 daily. Medical [facility] celecoxib 2022-0 Yes [id number] 200mg Take 1 [facility] 200 mg 5-09 capsule by ity of capsule 00:00: mouth [place] 00 daily. Medical [facility] celecoxib 2022-0 Yes [id number] 200mg Take 1 [facility] 200 mg 5-09 capsule by ity of capsule 00:00: mouth [place] 00 daily. Medical [facility] celecoxib 2022-0 2022- No [id number] 200mg Take 1 [facility] 200 mg 5-09 07-28 capsule by ity of capsule 00:00: 00:00 mouth [place] 00 :00 daily. Medical [facility] methocarbam 2022-0 Yes [id number] 500mg Take 1 [facility] oL 500 mg 5-02 tablet by ity o f tablet 00:00: mouth 4 00 (four) Medical times Branch daily as needed (cramps). methocarbam 2022-0 Yes [id number] 500mg Take 1 [facility] oL 500 mg 5-02 tablet by ity o f tablet 00:00: mouth 4 00 (four) Medical times Branch daily as needed (cramps). methocarbam 2022-0 Yes [id number] 500mg Take 1 [facility] oL 500 mg 5-02 tablet by ity o f tablet 00:00: mouth 4 00 (four) Medical times Branch daily as needed (cramps). methocarbam Yes [id number] 500mg Take 1 [facility] oL 500 mg 5-02 tablet by ity o f tablet 00:00: mouth 4 (four) Medical times Branch daily as needed (cramps). methocarbam Yes [id number] 500mg Take 1 [facility] oL 500 mg 5-02 tablet by ity o f tablet 00:00: mouth 4 (four) Medical times Branch daily as needed (cramps). methocarbam 2021- No [id number] 500mg Take 1 [facility] oL 500 mg 5-08 17- tablet by ity of tablet 00:00: 00:00 mouth 4 [place] 00 :00 (four) Medical times Branch daily as needed (cramps). levothyroxi Yes [id number] 100ug Take 1 [facility] ne 100 mcg 4- tablet by ity of tablet 00:00: mouth [place] 00 every Medical morning. Branch amLODIPine Yes [id number] 10mg Take 1 [facility] 10 mg 4-06 tablet by ity of tablet 00:00: mouth [place] 00 daily. Medical Branch levothyroxi 2021- No [id number] 100ug Take 1 [facility] ne 100 mcg 10-14- tablet by ity of tablet 00:00: 00:00 mouth [place] 00 :00 every Medical morning. Branch amLODIPine 2021- No [id number] 10mg Take 1 [facility] 10 mg 10-14- tablet by ity of tablet 00:00: 00:00 mouth [place] 00 :00 daily. Medical Branch OTEZLA 30 Yes [id number] TAKE 1 [facility] n[facility] mg tablet 4-01 TABLET BY ity o f 00:00: MOUTH [place] 00 TWICE Medical DAILY Branch OTEZLA 30 Yes [id number] TAKE 1 [facility] mg tablet 4-01 TABLET BY ity o f 00:00: MOUTH [place] 00 TWICE Medical DAILY Branch OTEZLA 30 Yes [id number] TAKE 1 [facility] mg tablet 4-01 TABLET BY ity o f 00:00: MOUTH [place] 00 TWICE Medical DAILY Branch OTEZLA 30 Yes [id number] TAKE 1 [facility] mg tablet 4-01 TABLET BY ity o f 00:00: MOUTH [place] 00 TWICE Medical DAILY Branch OTEZLA 30 2021-0 Yes [id number] TAKE 1 [facility] mg tablet 4-01 TABLET BY ity o f 00:00: MOUTH [place] 00 TWICE Medical DAILY Branch OTEZLA 30 2021-0 Yes [id number] TAKE 1 [facility] mg tablet 4-01 TABLET BY ity o f 00:00: MOUTH [place] 00 TWICE Medical DAILY Branch OTEZLA 30 2021-0 Yes [id number] TAKE 1 [facility] mg tablet 4-01 TABLET BY ity o f 00:00: MOUTH [place] 00 TWICE Medical DAILY Branch OTEZLA 30 2021-0 Yes [id number] TAKE 1 [facility] mg tablet 4-01 TABLET BY ity o f 00:00: MOUTH [place] 00 TWICE Medical DAILY Branch OTEZLA 30 2021-0 Yes [id number] TAKE 1 [facility] mg tablet 4-01 TABLET BY ity o f 00:00: MOUTH [place] 00 TWICE Medical DAILY Branch OTEZLA 30 2021-0 Yes [id number] TAKE 1 [facility] mg tablet 4-01 TABLET BY ity o f 00:00: MOUTH [place] 00 TWICE Medical DAILY Branch OTEZLA 30 2021-0 Yes [id number] TAKE 1 [facility] mg tablet 4-01 TABLET BY ity o f 00:00: MOUTH [place] 00 TWICE Medical DAILY Branch OTEZLA 30 2021-0 Yes [id number] TAKE 1 [facility] mg tablet 4-01 TABLET BY ity o f 00:00: MOUTH [place] 00 TWICE Medical DAILY Branch OTEZLA 30 2021-0 Yes [id number] TAKE 1 [facility] mg tablet 4-01 TABLET BY ity o f 00:00: MOUTH [place] 00 TWICE Medical DAILY Branch OTEZLA 30 2021-0 Yes [id number] TAKE 1 [facility] mg tablet 4-01 TABLET BY ity o f 00:00: MOUTH [place] 00 TWICE Medical DAILY Branch OTEZLA 30 2021-0 2021- No [id number] TAKE 1 [facility] mg tablet 4-07 18- TABLET BY ity of 00:00: 00:00 MOUTH [place] 00 :00 TWICE Medical DAILY Branch OTEZLA 30 2021-0 2021- No [id number] TAKE 1 [facility] mg tablet 4-03-10 TABLET BY ity of 00:00: 00:00 MOUTH [place] 00 :00 TWICE Medical DAILY Branch metoprolol 2022-0 Yes [id number] TAKE 1 [facility] tartrate 25 3-22 TABLET BY ity of mg tablet 00:00: MOUTH 00 TWICE Medical DAILY AT Branch 6AM AND 6PM metoprolol 2022-0 Yes [id number] TAKE 1 [facility] tartrate 25 3-22 TABLET BY ity of mg tablet 00:00: MOUTH 00 TWICE Medical DAILY AT Branch 6AM AND 6PM metoprolol 2022-0 Yes [id number] TAKE 1 [facility] tartrate 25 3-22 TABLET BY ity of mg tablet 00:00: MOUTH 00 TWICE Medical DAILY AT Branch 6AM AND 6PM metoprolol 2022-0 Yes [id number] TAKE 1 [facility] tartrate 25 3-22 TABLET BY ity of mg tablet 00:00: MOUTH 00 TWICE Medical DAILY AT Branch 6AM AND 6PM metoprolol 2022-0 Yes [id number] TAKE 1 [facility] tartrate 25 3-22 TABLET BY ity of mg tablet 00:00: MOUTH 00 TWICE Medical DAILY AT Branch 6AM AND 6PM metoprolol 2022-0 Yes [id number] TAKE 1 [facility] tartrate 25 3-22 TABLET BY ity of mg tablet 00:00: MOUTH 00 TWICE Medical DAILY AT Branch 6AM AND 6PM metoprolol 2022-0 Yes [id number] TAKE 1 [facility] tartrate 25 3-22 TABLET BY ity of mg tablet 00:00: MOUTH 00 TWICE Medical DAILY AT Branch 6AM AND 6PM metoprolol 2022-0 Yes [id number] TAKE 1 [facility] tartrate 25 3-22 TABLET BY ity of mg tablet 00:00: MOUTH 00 TWICE Medical DAILY AT Branch 6AM AND 6PM metoprolol 2022-0 Yes [id number] TAKE 1 [facility] tartrate 25 3-22 TABLET BY ity of mg tablet 00:00: MOUTH 00 TWICE Medical DAILY AT Branch 6AM AND 6PM metoprolol 2022-0 Yes [id number] TAKE 1 [facility] tartrate 25 3-22 TABLET BY ity of mg tablet 00:00: MOUTH 00 TWICE Medical DAILY AT Branch 6AM AND 6PM metoprolol 2022-0 Yes [id number] TAKE 1 [facility] nivers tartrate 25 3-22 TABLET BY ity of mg tablet 00:00: MOUTH [place] 00 TWICE Medical DAILY AT Branch 6AM AND 6PM metoprolol 0 Yes [id number] TAKE 1 [facility]ivers tartrate 25 3-22 TABLET BY ity of mg tablet 00:00: MOUTH [place] 00 TWICE Medical DAILY AT Branch 6AM AND 6PM metoprolol 2021-0 Yes [id number] TAKE 1 [facility]ivers tartrate 25 3-22 TABLET BY ity of mg tablet 00:00: MOUTH [place] 00 TWICE Medical DAILY AT Branch 6AM AND 6PM metoprolol 2021-0 Yes [id number] TAKE 1 [facility] tartrate 25 3-22 TABLET BY ity of mg tablet 00:00: MOUTH [place] 00 TWICE Medical DAILY AT Branch 6AM AND 6PM metoprolol 0 2021- No [id number] TAKE 1 [facility] tartrate 25 3-22 08-31 TABLET BY it y of mg tablet 00:00: 00:00 MOUTH [place] 00 :00 TWICE Medical DAILY AT Branch 6AM AND 6PM metoprolol 2021-0 2021- No [id number] TAKE 1 [facility] tartrate 25 3-22 08-31 TABLET BY it y of mg tablet 00:00: 00:00 MOUTH [place] 00 :00 TWICE Medical DAILY AT Branch 6AM AND 6PM metoclopram 2021-0 2021- No [id number] 5mg Take 1 [facility] lindsay HCl 3-16 06-27 tablet by ity of (REGLAN) 5 00:00: 00:00 mouth [place] mg tablet 00 :00 daily. [facility] pantoprazol Yes [id number] 40mg Take 1 [facility] e 40 mg EC 2-09 tablet by ity of tablet 00:00: mouth [place] 00 daily. [facility] pantoprazol Yes [id number] 40mg Take 1 [facility] e 40 mg EC 2-09 tablet by ity of tablet 00:00: mouth [place] 00 daily. [facility] pantoprazol Yes [id number] 40mg Take 1 [facility] e 40 mg EC 2-09 tablet by ity of tablet 00:00: mouth [place] 00 daily. [facility] pantoprazol 2021- No [id number] 40mg Take 1 [facility] e 40 mg EC 2-09 07-18 tablet by ity of tablet 00:00: 00:00 mouth [place] 00 :00 daily. [facility] lisinopriL 2020-07 Yes [id number] 10mg Take 1 [facility] 10 mg 2-22 tablet by ity of tablet 00:00: mouth [place] 00 daily. Medical Branch lisinopriL 2020-07 Yes [id number] 10mg Take 1 [facility] 10 mg 2-22 tablet by ity of tablet 00:00: mouth [place] 00 daily. Medical Branch lisinopriL 2020-07 Yes [id number] 10mg Take 1 [facility] 10 mg 2-22 tablet by ity of tablet 00:00: mouth [place] 00 daily. Medical Branch lisinopriL 2020-07 Yes [id number] 10mg Take 1 [facility] 10 mg 2-22 tablet by ity of tablet 00:00: mouth [place] 00 daily. Medical Branch lisinopriL 2020-07 Yes [id number] 10mg Take 1 [facility] 10 mg 2-22 tablet by ity of tablet 00:00: mouth [place] 00 daily. Medical Branch lisinopriL 2020-07 Yes [id number] 10mg Take 1 [facility] 10 mg 2-22 tablet by ity of tablet 00:00: mouth [place] 00 daily. Medical Branch lisinopriL 2020-07 Yes [id number] 10mg Take 1 [facility] 10 mg 2-22 tablet by ity of tablet 00:00: mouth [place] 00 daily. Medical Branch lisinopriL 2020-07 Yes [id number] 10mg Take 1 [facility] 10 mg 2-22 tablet by ity of tablet 00:00: mouth [place] 00 daily. Medical Branch lisinopriL 2020-07 Yes [id number] 10mg Take 1 [facility] 10 mg 2-22 tablet by ity of tablet 00:00: mouth [place] 00 daily. Medical Branch lisinopriL 2020-07 Yes [id number] 10mg Take 1 [facility] 10 mg 2-22 tablet by ity of tablet 00:00: mouth [place] 00 daily. Medical Branch lisinopriL 2020-07 Yes [id number] 10mg Take 1 [facility] 10 mg 2-22 tablet by ity of tablet 00:00: mouth [place] 00 daily. Medical Branch lisinopriL 2020-07 Yes [id number] 10mg Take 1 [facility] 10 mg 2-22 tablet by ity of tablet 00:00: mouth [place] 00 daily. Medical Branch lisinopriL 2020-07 Yes [id number] 10mg Take 1 [facility] 10 mg 2-22 tablet by ity of tablet 00:00: mouth [place] 00 daily. [facility] Branch lisinopriL 2020-07 Yes [id number] 10mg Take 1 [facility] nivers 10 mg 2-22 tablet by ity of tablet 00:00: mouth [place] 00 daily. [facility] lisinopriL 2020-07- No [id number] 10mg Take 1 [facility] 10 mg 2-22 -31 tablet by ity of tablet 00:00: 00:00 mouth [place] 00 :00 daily. [facility] lisinopriL 2020-07- No [id number] 10mg Take 1 [facility] 10 mg 2-22 -31 tablet by ity of tablet 00:00: 00:00 mouth [place] 00 :00 daily. [facility] miconazole 2020-07 Yes [id number] 100mg Insert 1 [facility] 100 mg 1-15 Suppositor ity of vaginal 00:00: y into [place] suppository 00 vagina at [facility]. Branch miconazole 2020-07 Yes [id number] 100mg Insert 1 [facility] 100 mg 1-15 Suppositor ity of vaginal 00:00: y into [place] suppository 00 vagina at [facility]. Branch miconazole 2020-07 Yes [id number] 100mg Insert 1 [facility] 100 mg 1-15 Suppositor ity of vaginal 00:00: y into [place] suppository 00 vagina at [facility]. Branch miconazole 2020-07 Yes [id number] 100mg Insert 1 [facility] 100 mg 1-15 Suppositor ity of vaginal 00:00: y into [place] suppository 00 vagina at [facility]. Branch miconazole 2020-07 Yes [id number] 100mg Insert 1 [facility] 100 mg 1-15 Suppositor ity of vaginal 00:00: y into [place] suppository 00 vagina at [facility]. Branch miconazole 2020-07 Yes [id number] 100mg Insert 1 [facility] 100 mg 1-15 Suppositor ity of vaginal 00:00: y into [place] suppository 00 vagina at [facility]. Branch miconazole 2020-07 Yes [id number] 100mg Insert 1 [facility] 100 mg 1-15 Suppositor ity of vaginal 00:00: y into [place] suppository 00 vagina at [facility]. Branch miconazole 2020-07 Yes [id number] 100mg Insert 1 [facility] 100 mg 1-15 Suppositor ity of vaginal 00:00: y into [place] suppository 00 vagina at [facility]. Branch miconazole 2020-07 Yes [id number] 100mg Insert 1 [facility] 100 mg 1-15 Suppositor ity of vaginal 00:00: y into [place] suppository 00 vagina at [facility]. Branch miconazole 2020-07 Yes [id number] 100mg Insert 1 [facility] 100 mg 1-15 Suppositor ity of vaginal 00:00: y into [place] suppository 00 vagina at [facility]. Branch miconazole 2020-07 Yes [id number] 100mg Insert 1 [facility] 100 mg 1-15 Suppositor ity of vaginal 00:00: y into [place] suppository 00 vagina at [facility]. Branch miconazole 2020-07 Yes [id number] 100mg Insert 1 [facility] 100 mg 1-15 Suppositor ity of vaginal 00:00: y into [place] suppository 00 vagina at [facility]. Branch miconazole 2020-07 Yes [id number] 100mg Insert 1 [facility] 100 mg 1-15 Suppositor ity of vaginal 00:00: y into [place] suppository 00 vagina at [facility]. Branch miconazole 2020-07 Yes [id number] 100mg Insert 1 [facility] 100 mg 1-15 Suppositor ity of vaginal 00:00: y into [place] suppository 00 vagina at [facility]. Branch miconazole 2020-07 Yes [id number] 100mg Insert 1 [facility] 100 mg 1-15 Suppositor ity of vaginal 00:00: y into [place] suppository 00 vagina at [facility]. Branch miconazole 2020-07 Yes [id number] 100mg Insert 1 [facility] 100 mg 1-15 Suppositor ity of vaginal 00:00: y into [place] suppository 00 vagina at [facility]. Branch miconazole 2020-07 Yes [id number] 100mg Insert 1 [facility] 100 mg 1-15 Suppositor ity of vaginal 00:00: y into [place] suppository 00 vagina at [facility]. Branch miconazole 2020-07 Yes [id number] 100mg Insert 1 [facility] 100 mg 1-15 Suppositor ity of vaginal 00:00: y into [place] suppository 00 vagina at [facility]. Branch miconazole 2020-07 Yes [id number] 100mg Insert 1 [facility] 100 mg 1-15 Suppositor ity of vaginal 00:00: y into [place] suppository 00 vagina at [facility]. Branch miconazole 2020-07 Yes [id number] 100mg Insert 1 [facility] 100 mg 1-15 Suppositor ity of vaginal 00:00: y into [place] suppository 00 vagina at [facility]. Branch miconazole 2020-07 Yes [id number] 100mg Insert 1 [facility] 100 mg 1-15 Suppositor ity of vaginal 00:00: y into [place] suppository 00 vagina at [facility]. Branch miconazole 2020-07 Yes [id number] 100mg Insert 1 [facility] 100 mg 1-15 Suppositor ity of vaginal 00:00: y into [place] suppository 00 vagina at [facility]. Branch miconazole 2020-07 Yes [id number] 100mg Insert 1 [facility] 100 mg 1-15 Suppositor ity of vaginal 00:00: y into [place] suppository 00 vagina at [facility]. Branch miconazole 2020-07 Yes [id number] 100mg Insert 1 [facility] 100 mg 1-15 Suppositor ity of vaginal 00:00: y into [place] suppository 00 vagina at [facility]. Branch miconazole 2020-07 Yes [id number] 100mg Insert 1 [facility] 100 mg 1-15 Suppositor ity of vaginal 00:00: y into [place] suppository 00 vagina at [facility]. Branch miconazole 2020-07 Yes [id number] 100mg Insert 1 [facility] 100 mg 1-15 Suppositor ity of vaginal 00:00: y into [place] suppository 00 vagina at [facility]. Branch miconazole 2020-07 Yes [id number] 100mg Insert 1 [facility] 100 mg 1-15 Suppositor ity of vaginal 00:00: y into [place] suppository 00 vagina at [facility]. Branch miconazole 2020-07 Yes [id number] 100mg Insert 1 [facility] 100 mg 1-15 Suppositor ity of vaginal 00:00: y into [place] suppository 00 vagina at [facility]. Branch miconazole 2020-07 Yes [id number] 100mg Insert 1 [facility] 100 mg 1-15 Suppositor ity of vaginal 00:00: y into [place] suppository 00 vagina at [facility]. Branch miconazole 2020-07 Yes [id number] 100mg Insert 1 [facility] 100 mg 1-15 Suppositor ity of vaginal 00:00: y into [place] suppository 00 vagina at [facility]. Branch miconazole 2020-07 Yes [id number] 100mg Insert 1 [facility] 100 mg 1-15 Suppositor ity of vaginal 00:00: y into [place] suppository 00 vagina at [facility]. Branch miconazole 2020-07 Yes [id number] 100mg Insert 1 [facility] 100 mg 1-15 Suppositor ity of vaginal 00:00: y into [place] suppository 00 vagina at [facility]. Branch miconazole 2020-07 Yes [id number] 100mg Insert 1 [facility] 100 mg 1-15 Suppositor ity of vaginal 00:00: y into [place] suppository 00 vagina at [facility]. Branch miconazole 2020-07 Yes [id number] 100mg Insert 1 [facility] 100 mg 1-15 Suppositor ity of vaginal 00:00: y into [place] suppository 00 vagina at [facility]. Branch miconazole 2020-07 Yes [id number] 100mg Insert 1 [facility] 100 mg 1-15 Suppositor ity of vaginal 00:00: y into [place] suppository 00 vagina at [facility]. Branch miconazole 2020-07 Yes [id number] 100mg Insert 1 [facility] 100 mg 1-15 Suppositor ity of vaginal 00:00: y into [place] suppository 00 vagina at [facility]. Branch miconazole 2020-07 Yes [id number] 100mg Insert 1 [facility] 100 mg 1-15 Suppositor ity of vaginal 00:00: y into [place] suppository 00 vagina at [facility]. Branch miconazole 2020-07 Yes [id number] 100mg Insert 1 [facility] 100 mg 1-15 Suppositor ity of vaginal 00:00: y into [place] suppository 00 vagina at [facility]. Branch miconazole 2020-07 Yes [id number] 100mg Insert 1 [facility] 100 mg 1-15 Suppositor ity of vaginal 00:00: y into [place] suppository 00 vagina at [facility]. Branch miconazole 2020-07 Yes [id number] 100mg Insert 1 [facility] 100 mg 1-15 Suppositor ity of vaginal 00:00: y into [place] suppository 00 vagina at [facility]. Branch miconazole 2020-07 Yes [id number] 100mg Insert 1 [facility] 100 mg 1-15 Suppositor ity of vaginal 00:00: y into [place] suppository 00 vagina at [facility]. Branch miconazole 2020-07 Yes [id number] 100mg Insert 1 [facility] 100 mg 1-15 Suppositor ity of vaginal 00:00: y into [place] suppository 00 vagina at [facility]. Branch miconazole 2020-07 Yes [id number] 100mg Insert 1 [facility] 100 mg 1-15 Suppositor ity of vaginal 00:00: y into [place] suppository 00 vagina at [facility]. Branch miconazole 2020-07 Yes [id number] 100mg Insert 1 [facility] 100 mg 1-15 Suppositor ity of vaginal 00:00: y into [place] suppository 00 vagina at [facility]. Branch miconazole 2020-07 Yes [id number] 100mg Insert 1 [facility] 100 mg 1-15 Suppositor ity of vaginal 00:00: y into [place] suppository 00 vagina at [facility]. Branch miconazole 2020-07 Yes [id number] 100mg Insert 1 [facility] 100 mg 1-15 Suppositor ity of vaginal 00:00: y into [place] suppository 00 vagina at [facility]. Branch miconazole 2020-07 Yes [id number] 100mg Insert 1 [facility] 100 mg 1-15 Suppositor ity of vaginal 00:00: y into [place] suppository 00 vagina at [facility]. Branch miconazole 2020-07 Yes [id number] 100mg Insert 1 [facility] 100 mg 1-15 Suppositor ity of vaginal 00:00: y into [place] suppository 00 vagina at [facility]. Branch miconazole 2020-07 Yes [id number] 100mg Insert 1 [facility] 100 mg 1-15 Suppositor ity of vaginal 00:00: y into [place] suppository 00 vagina at [facility]. Branch miconazole 2020-07 Yes [id number] 100mg Insert 1 [facility] 100 mg 1-15 Suppositor ity of vaginal 00:00: y into [place] suppository 00 vagina at [facility]. Branch miconazole 2020-07 Yes [id number] 100mg Insert 1 [facility] 100 mg 1-15 Suppositor ity of vaginal 00:00: y into [place] suppository 00 vagina at [facility]. Branch miconazole 2020-07 Yes [id number] 100mg Insert 1 [facility] 100 mg 1-15 Suppositor ity of vaginal 00:00: y into [place] suppository 00 vagina at [facility]. Branch miconazole 2020-07 Yes [id number] 100mg Insert 1 [facility] 100 mg 1-15 Suppositor ity of vaginal 00:00: y into [place] suppository 00 vagina at [facility]. Branch miconazole 2020-07 Yes [id number] 100mg Insert 1 [facility] 100 mg 1-15 Suppositor ity of vaginal 00:00: y into [place] suppository 00 vagina at [facility]. Branch miconazole 2020-07 Yes [id number] 100mg Insert 1 [facility] 100 mg 1-15 Suppositor ity of vaginal 00:00: y into [place] suppository 00 vagina at [facility]. Branch miconazole 2020-07 Yes [id number] 100mg Insert 1 [facility] 100 mg 1-15 Suppositor ity of vaginal 00:00: y into [place] suppository 00 vagina at [facility]. Branch miconazole 2020-07 Yes [id number] 100mg Insert 1 [facility] 100 mg 1-15 Suppositor ity of vaginal 00:00: y into [place] suppository 00 vagina at [facility]. Branch miconazole 2020-07 Yes [id number] 100mg Insert 1 [facility] 100 mg 1-15 Suppositor ity of vaginal 00:00: y into [place] suppository 00 vagina at [facility]. Branch miconazole 2020-07 Yes [id number] 100mg Insert 1 [facility] 100 mg 1-15 Suppositor ity of vaginal 00:00: y into [place] suppository 00 vagina at [facility]. Branch miconazole 2020-07 Yes [id number] 100mg Insert 1 [facility] 100 mg 1-15 Suppositor ity of vaginal 00:00: y into [place] suppository 00 vagina at [facility]. Branch miconazole 2020-07 Yes [id number] 100mg Insert 1 [facility] 100 mg 1-15 Suppositor ity of vaginal 00:00: y into [place] suppository 00 vagina at [facility]. Branch miconazole 2020-07 Yes [id number] 100mg Insert 1 [facility] 100 mg 1-15 Suppositor ity of vaginal 00:00: y into [place] suppository 00 vagina at [facility]. Branch miconazole 2020-07 Yes [id number] 100mg Insert 1 [facility] 100 mg 1-15 Suppositor ity of vaginal 00:00: y into [place] suppository 00 vagina at [facility]. Branch miconazole 2020-07 Yes [id number] 100mg Insert 1 [facility] 100 mg 1-15 Suppositor ity of vaginal 00:00: y into [place] suppository 00 vagina at [facility]. Branch miconazole 2020-07 Yes [id number] 100mg Insert 1 [facility] 100 mg 1-15 Suppositor ity of vaginal 00:00: y into [place] suppository 00 vagina at [facility]. Branch miconazole 2020-07 Yes [id number] 100mg Insert 1 [facility] 100 mg 1-15 Suppositor ity of vaginal 00:00: y into [place] suppository 00 vagina at [facility]. Branch miconazole 2020-07 Yes [id number] 100mg Insert 1 [facility] 100 mg 1-15 Suppositor ity of vaginal 00:00: y into [place] suppository 00 vagina at [facility]. Branch miconazole 2020-07 Yes [id number] 100mg Insert 1 [facility] 100 mg 1-15 Suppositor ity of vaginal 00:00: y into [place] suppository 00 vagina at [facility]. Branch miconazole 2020-07 Yes [id number] 100mg Insert 1 [facility] 100 mg 1-15 Suppositor ity of vaginal 00:00: y into [place] suppository 00 vagina at [facility]. Branch miconazole 2020-07 Yes [id number] 100mg Insert 1 [facility] 100 mg 1-15 Suppositor ity of vaginal 00:00: y into [place] suppository 00 vagina at [facility]. Branch miconazole 2020-07 Yes [id number] 100mg Insert 1 [facility] 100 mg 1-15 Suppositor ity of vaginal 00:00: y into [place] suppository 00 vagina at [facility]. Branch miconazole 2020-07 Yes [id number] 100mg Insert 1 [facility] 100 mg 1-15 Suppositor ity of vaginal 00:00: y into [place] suppository 00 vagina at [facility]. Branch miconazole 2020-07 Yes [id number] 100mg Insert 1 [facility] 100 mg 1-15 Suppositor ity of vaginal 00:00: y into [place] suppository 00 vagina at [facility]. Branch miconazole 2020-07 Yes [id number] 100mg Insert 1 [facility] 100 mg 1-15 Suppositor ity of vaginal 00:00: y into [place] suppository 00 vagina at [facility]. Branch miconazole 2020-07 Yes [id number] 100mg Insert 1 [facility] 100 mg 1-15 Suppositor ity of vaginal 00:00: y into [place] suppository 00 vagina at [facility]. Branch miconazole 2020-07 Yes [id number] 100mg Insert 1 [facility] 100 mg 1-15 Suppositor ity of vaginal 00:00: y into [place] suppository 00 vagina at [facility]. Branch miconazole 2020-07 Yes [id number] 100mg Insert 1 [facility] 100 mg 1-15 Suppositor ity of vaginal 00:00: y into [place] suppository 00 vagina at [facility]. Branch miconazole 2020-07 Yes [id number] 100mg Insert 1 [facility] 100 mg 1-15 Suppositor ity of vaginal 00:00: y into [place] suppository 00 vagina at [facility]. Branch miconazole 2020-07 Yes [id number] 100mg Insert 1 [facility] 100 mg 1-15 Suppositor ity of vaginal 00:00: y into [place] suppository 00 vagina at [facility]. Branch miconazole 2020-07 Yes [id number] 100mg Insert 1 [facility] 100 mg 1-15 Suppositor ity of vaginal 00:00: y into [place] suppository 00 vagina at [facility]. Branch miconazole 2020-07 Yes [id number] 100mg Insert 1 [facility] 100 mg 1-15 Suppositor ity of vaginal 00:00: y into [place] suppository 00 vagina at [facility]. Branch miconazole 2020-07 Yes [id number] 100mg Insert 1 [facility] 100 mg 1-15 Suppositor ity of vaginal 00:00: y into [place] suppository 00 vagina at [facility]. Branch miconazole 2020-07 Yes [id number] 100mg Insert 1 [facility] 100 mg 1-15 Suppositor ity of vaginal 00:00: y into [place] suppository 00 vagina at [facility]. Branch miconazole 2020-07 Yes [id number] 100mg Insert 1 [facility] 100 mg 1-15 Suppositor ity of vaginal 00:00: y into [place] suppository 00 vagina at [facility]. Branch miconazole 2020-07 Yes [id number] 100mg Insert 1 [facility] 100 mg 1-15 Suppositor ity of vaginal 00:00: y into [place] suppository 00 vagina at [facility]. Branch miconazole 2020-07 Yes [id number] 100mg Insert 1 [facility] 100 mg 1-15 Suppositor ity of vaginal 00:00: y into [place] suppository 00 vagina at [facility]. Branch miconazole 2020-07 Yes [id number] 100mg Insert 1 [facility] 100 mg 1-15 Suppositor ity of vaginal 00:00: y into [place] suppository 00 vagina at [facility]. Branch miconazole 2020-07 Yes [id number] 100mg Insert 1 [facility] 100 mg 1-15 Suppositor ity of vaginal 00:00: y into [place] suppository 00 vagina at [facility]. Branch miconazole 2020-07 Yes [id number] 100mg Insert 1 [facility] 100 mg 1-15 Suppositor ity of vaginal 00:00: y into [place] suppository 00 vagina at [facility]. Branch miconazole 2020-07 Yes [id number] 100mg Insert 1 [facility] 100 mg 1-15 Suppositor ity of vaginal 00:00: y into [place] suppository 00 vagina at Med ical bedtime. Branch miconazole 2020-07 Yes [id number] 100mg Insert 1 [facility] 100 mg 1-15 Suppositor ity of vaginal 00:00: y into [place] suppository 00 vagina at [facility] bedtime. Branch miconazole 2020-07 Yes [id number] 100mg Insert 1 [facility] 100 mg 1-15 Suppositor ity of vaginal 00:00: y into [place] suppository 00 vagina at [facility] bedtime. Branch miconazole 2020-07 Yes [id number] 100mg Insert 1 [facility] 100 mg 1-15 Suppositor ity of vaginal 00:00: y into [place] suppository 00 vagina at [facility] bedtime. Branch miconazole 2020-07 Yes [id number] 100mg Insert 1 [facility] 100 mg 1-15 Suppositor ity of vaginal 00:00: y into [place] suppository 00 vagina at [facility] bedtime. Branch miconazole 2020-07 Yes [id number] 100mg Insert 1 [facility] 100 mg 1-15 Suppositor ity of vaginal 00:00: y into [place] suppository 00 vagina at [facility] bedtime. Branch MULTIPLE 2020-07 Yes 2 pills a [facility] ers VITAMINS 1-03 day ity of DAILY ORAL 13:48: [place] [address] 2020-07 Yes 15ug Use 15 mcg [facility] L 15 mcg/2 1-03 as ity of mL 13:48: directed 2 [place] nebulizer 16 (two) Medical solution times Branch daily. MULTIPLE 2020-07 Yes 2 pills a [facility] ers VITAMINS 1-03 day ity of DAILY ORAL 13:48: [place] [facility] [address] [place], [place] [address]ormotero 2020-07 Yes 15ug Use 15 mcg [facility] L 15 mcg/2 1-03 as ity of mL 13:48: directed 2 [place] nebulizer 16 (two) Medical solution times Branch daily. MULTIPLE 2020-07 Yes 2 pills a [facility] ers VITAMINS 1-03 day ity of DAILY ORAL 13:48: [place] [facility] [address] [place], [place] [address]ormotero 2020-07 Yes 15ug Use 15 mcg [facility] L 15 mcg/2 1-03 as ity of mL 13:48: directed 2 [place] nebulizer 16 (two) Medical solution times Branch daily. MULTIPLE 2020-07 Yes 2 pills a [facility] ers VITAMINS 1-03 day ity of DAILY ORAL 13:48: [place] [address]-07 Yes 15ug Use 15 mcg [facility] L 15 mcg/2 1-03 as ity of mL 13:48: directed 2 [place] nebulizer 16 (two) Medical solution times Branch daily. MULTIPLE 2020-07 Yes 2 pills a [facility] ers VITAMINS 1-03 day ity of DAILY ORAL 13:48: [place] [facility] Use 15 mcg [facility] L 15 mcg/2 1-03 as ity of mL 13:48: directed 2 [place] nebulizer 16 (two) Medical solution times Branch daily. MULTIPLE 2020-07 Yes 2 pills a [facility] ers VITAMINS 1-03 day ity of DAILY ORAL 13:48: [place] [facility] 16 Medical Branch arformotero 2020-07 Yes 15ug Use 15 mcg [facility] L 15 mcg/2 1-03 as ity of mL 13:48: directed 2 [place] nebulizer 16 (two) Medical solution times Branch daily. MULTIPLE 2020-07 Yes 2 pills a [facility] ers VITAMINS 1-03 day ity of DAILY ORAL 13:48: [place] [facility] 16 [facility] Yes 15ug Use 15 mcg [facility] L 15 mcg/2 1-03 as ity of mL 13:48: directed 2 [place] nebulizer 16 (two) Medical solution times Branch daily. MULTIPLE 2020-07 Yes 2 pills a [facility] ers VITAMINS 1-03 day ity of DAILY ORAL 13:48: [place] [facility] 16 [facility] Yes 15ug Use 15 mcg [facility] L 15 mcg/2 1-03 as ity of mL 13:48: directed 2 [place] nebulizer 16 (two) Medical solution times Branch daily. MULTIPLE 2020-07 Yes 2 pills a [facility] ers VITAMINS 1-03 day ity of DAILY ORAL 13:48: [place] [facility] 16 [facility] Yes 15ug Use 15 mcg [facility] L 15 mcg/2 1-03 as ity of mL 13:48: directed 2 [place] nebulizer 16 (two) Medical solution times Branch daily. MULTIPLE 2020-07 Yes 2 pills a [facility] ers VITAMINS 1-03 day ity of DAILY ORAL 13:48: [place] [facility] 16 [facility] Yes 15ug Use 15 mcg [facility] L 15 mcg/2 1-03 as ity of mL 13:48: directed 2 [place] nebulizer 16 (two) Medical solution times Branch daily. MULTIPLE 2020-07 Yes 2 pills a [facility] ers VITAMINS 1-03 day ity of DAILY ORAL 13:48: [place] [facility] 16 [facility] Yes 15ug Use 15 mcg [facility] L 15 mcg/2 1-03 as ity of mL 13:48: directed 2 [place] nebulizer 16 (two) Medical solution times Branch daily. MULTIPLE 2020-07 Yes 2 pills a [facility] ers VITAMINS 1-03 day ity of DAILY ORAL 13:48: [place] TAB 16 Medical Branch arformotero 2020-07 Yes 15ug Use 15 mcg [facility] L 15 mcg/2 1-03 as ity of mL 13:48: directed 2 [place] nebulizer 16 (two) Medical solution times Branch daily. MULTIPLE 2020-07 Yes 2 pills a [facility] ers VITAMINS 1-03 day ity of DAILY ORAL 13:48: [place] [facility] 16 [facility] Yes 15ug Use 15 mcg [facility] L 15 mcg/2 1-03 as ity of mL 13:48: directed 2 [place] nebulizer 16 (two) Medical solution times Branch daily. MULTIPLE 2020-07 Yes 2 pills a [facility] ers VITAMINS 1-03 day ity of DAILY ORAL 13:48: [place] [facility] 16 [facility] Yes 15ug Use 15 mcg [facility] L 15 mcg/2 1-03 as ity of mL 13:48: directed 2 [place] nebulizer 16 (two) Medical solution times Branch daily. MULTIPLE 2020-07 Yes 2 pills a [facility] ers VITAMINS 1-03 day ity of DAILY ORAL 13:48: [place] [facility] 16 [facility] Yes 15ug Use 15 mcg [facility] L 15 mcg/2 1-03 as ity of mL 13:48: directed 2 [place] nebulizer 16 (two) Medical solution times Branch daily. MULTIPLE 2020-07 Yes 2 pills a [facility] ers VITAMINS 1-03 day ity of DAILY ORAL 13:48: [place] [facility] 16 [facility] Yes 15ug Use 15 mcg [facility] L 15 mcg/2 1-03 as ity of mL 13:48: directed 2 [place] nebulizer 16 (two) Medical solution times Branch daily. MULTIPLE 2020-07 Yes 2 pills a [facility] ers VITAMINS 1-03 day ity of DAILY ORAL 13:48: [place] [facility] 16 [facility] Yes 15ug Use 15 mcg [facility] L 15 mcg/2 1-03 as ity of mL 13:48: directed 2 [place] nebulizer 16 (two) Medical solution times Branch daily. MULTIPLE 2020-07 Yes 2 pills a [facility] ers VITAMINS 1-03 day ity of DAILY ORAL 13:48: [place] [facility] 16 [facility] Yes 15ug Use 15 mcg [facility] L 15 mcg/2 1-03 as ity of mL 13:48: directed 2 [place] nebulizer 16 (two) Medical solution times Branch daily. MULTIPLE 2020-07 Yes 2 pills a [facility] ers VITAMINS 1-03 day ity of DAILY ORAL 13:48: [place] [facility] 16 [facility] Yes 15ug Use 15 mcg [facility] L 15 mcg/2 1-03 as ity of mL 13:48: directed 2 [place] nebulizer 16 (two) Medical solution times Branch daily. MULTIPLE 2020-07 Yes 2 pills a [facility] ers VITAMINS 1-03 day ity of DAILY ORAL 13:48: [place] [facility] 16 [facility] Yes 15ug Use 15 mcg [facility] L 15 mcg/2 1-03 as ity of mL 13:48: directed 2 [place] nebulizer 16 (two) Medical solution times Branch daily. MULTIPLE 2020-07 Yes 2 pills a [facility] ers VITAMINS 1-03 day ity of DAILY ORAL 13:48: [place] [facility] Yes 15ug Use 15 mcg [facility] L 15 mcg/2 1-03 as ity of mL 13:48: directed 2 [place] nebulizer 16 (two) Medical solution times Branch daily. MULTIPLE 2020-07 Yes 2 pills a [facility] ers VITAMINS 1-03 day ity of DAILY ORAL 13:48: [place] [facility] 16 [facility] Yes 15ug Use 15 mcg [facility] L 15 mcg/2 1-03 as ity of mL 13:48: directed 2 [place] nebulizer 16 (two) Medical solution times Branch daily. MULTIPLE 2020-07 Yes 2 pills a [facility] ers VITAMINS 1-03 day ity of DAILY ORAL 13:48: [place] [facility] 16 [facility] Yes 15ug Use 15 mcg [facility] L 15 mcg/2 1-03 as ity of mL 13:48: directed 2 [place] nebulizer 16 (two) Medical solution times Branch daily. MULTIPLE 2020-07 Yes 2 pills a [facility] ers VITAMINS 1-03 day ity of DAILY ORAL 13:48: [place] [facility] 16 Medical Branch arformotero 2020-07 Yes 15ug Use 15 mcg [facility] L 15 mcg/2 1-03 as ity of mL 13:48: directed 2 [place] nebulizer 16 (two) Medical solution times Branch daily. MULTIPLE 2020-07 Yes 2 pills a [facility] ers VITAMINS 1-03 day ity of DAILY ORAL 13:48: [place] TAB 16 Medical Branch arform[facility]ero 2020-07 Yes 15ug Use 15 mcg [facility] L 15 mcg/2 1-03 as ity of mL 13:48: directed 2 [place] nebulizer 16 (two) Medical solution times Branch daily. MULTIPLE 2020-07 Yes 2 pills a [facility] ers VITAMINS 1-03 day ity of DAILY ORAL 13:48: [place] TAB 16 Medical Branch ar[facility] 2020-07 Yes 15ug Use 15 mcg [facility] L 15 mcg/2 1-03 as ity of mL 13:48: directed 2 [place] nebulizer 16 (two) Medical solution times Branch daily. MULTIPLE 2020-07 Yes 2 pills a [facility] ers VITAMINS 1-03 day ity of DAILY ORAL 13:48: [place] TAB 16 Medical Branch ar[facility] 2020-07 Yes 15ug Use 15 mcg [facility] L 15 mcg/2 1-03 as ity of mL 13:48: directed 2 [place] nebulizer 16 (two) Medical solution times Branch daily. MULTIPLE 2020-07 Yes 2 pills a [facility] ers VITAMINS 1-03 day ity of DAILY ORAL 13:48: [place] TAB 16 Medical Branch ar[facility] 2020-07 Yes 15ug Use 15 mcg [facility] L 15 mcg/2 1-03 as ity of mL 13:48: directed 2 [place] nebulizer 16 (two) Medical solution times Branch daily. MULTIPLE 2020-07 Yes 2 pills a [facility] ers VITAMINS 1-03 day ity of DAILY ORAL 13:48: [place] TAB 16 Medical Branch ar[facility] 2020-07 Yes 15ug Use 15 mcg [facility] L 15 mcg/2 1-03 as ity of mL 13:48: directed 2 [place] nebulizer 16 (two) Medical solution times Branch daily. MULTIPLE 2020-07 Yes 2 pills a [facility] ers VITAMINS 1-03 day ity of DAILY ORAL 13:48: [place] TAB 16 Medical Branch ar[facility] 2020-07 Yes 15ug Use 15 mcg [facility] L 15 mcg/2 1-03 as ity of mL 13:48: directed 2 [place] nebulizer 16 (two) Medical solution times Branch daily. MULTIPLE 2020-07 Yes 2 pills a [facility] ers VITAMINS 1-03 day ity of DAILY ORAL 13:48: [place] [facility] 16 [facility] Yes 15ug Use 15 mcg [facility] L 15 mcg/2 1-03 as ity of mL 13:48: directed 2 [place] nebulizer 16 (two) Medical solution times Branch daily. MULTIPLE 2020-07 Yes 2 pills a [facility] ers VITAMINS 1-03 day ity of DAILY ORAL 13:48: [place] [facility] 16 [facility] Yes 15ug Use 15 mcg [facility] L 15 mcg/2 1-03 as ity of mL 13:48: directed 2 [place] nebulizer 16 (two) Medical solution times Branch daily. MULTIPLE 2020-07 Yes 2 pills a [facility] ers VITAMINS 1-03 day ity of DAILY ORAL 13:48: [place] [facility] Yes 15ug Use 15 mcg [facility] L 15 mcg/2 1-03 as ity of mL 13:48: directed 2 [place] nebulizer 16 (two) Medical solution times Branch daily. MULTIPLE 2020-07 Yes 2 pills a [facility] ers VITAMINS 1-03 day ity of DAILY ORAL 13:48: [place] [facility] Yes 15ug Use 15 mcg [facility] L 15 mcg/2 1-03 as ity of mL 13:48: directed 2 [place] nebulizer 16 (two) Medical solution times Branch daily. MULTIPLE 2020-07 Yes 2 pills a [facility] ers VITAMINS 1-03 day ity of DAILY ORAL 13:48: [place] [facility] Yes 15ug Use 15 mcg [facility] L 15 mcg/2 1-03 as ity of mL 13:48: directed 2 [place] nebulizer 16 (two) Medical solution times Branch daily. MULTIPLE 2020-07 Yes 2 pills a [facility] ers VITAMINS 1-03 day ity of DAILY ORAL 13:48: [place] [facility] Medical Branch arformotero 2020-07 Yes 15ug Use 15 mcg [facility] L 15 mcg/2 1-03 as ity of mL 13:48: directed 2 [place] nebulizer 16 (two) Medical solution times Branch daily. MULTIPLE 2020-07 Yes 2 pills a Univ ers VITAMINS 1-03 day ity of DAILY ORAL 13:48: [place] TAB 16 Medical Branch arform[facility]ero 2020-07 Yes 15ug Use 15 mcg [facility] L 15 mcg/2 1-03 as ity of mL 13:48: directed 2 [place] nebulizer 16 (two) Medical solution times Branch daily. MULTIPLE 2020-07 Yes 2 pills a [facility] ers VITAMINS 1-03 day ity of DAILY ORAL 13:48: [place] TAB 16 Medical Branch ar[facility] 2020-07 Yes 15ug Use 15 mcg [facility] L 15 mcg/2 1-03 as ity of mL 13:48: directed 2 [place] nebulizer 16 (two) Medical solution times Branch daily. MULTIPLE 2020-07 Yes 2 pills a [facility] ers VITAMINS 1-03 day ity of DAILY ORAL 13:48: [place] TAB 16 Medical Branch ar[facility] 2020-07 Yes 15ug Use 15 mcg [facility] L 15 mcg/2 1-03 as ity of mL 13:48: directed 2 [place] nebulizer 16 (two) Medical solution times Branch daily. MULTIPLE 2020-07 Yes 2 pills a [facility] ers VITAMINS 1-03 day ity of DAILY ORAL 13:48: [place] TAB 16 Medical Branch ar[facility] 2020-07 Yes 15ug Use 15 mcg [facility] L 15 mcg/2 1-03 as ity of mL 13:48: directed 2 [place] nebulizer 16 (two) Medical solution times Branch daily. MULTIPLE 2020-07 Yes 2 pills a Univ ers VITAMINS 1-03 day ity of DAILY ORAL 13:48: [place] TAB 16 Medical Branch ar[facility]ero 2020-07 Yes 15ug Use 15 mcg [facility] L 15 mcg/2 1-03 as ity of mL 13:48: directed 2 [place] nebulizer 16 (two) Medical solution times Branch daily. MULTIPLE 2020-07 Yes 2 pills a [facility] ers VITAMINS 1-03 day ity of DAILY ORAL 13:48: [place] TAB 16 Medical Branch ar[facility] 2020-07 Yes 15ug Use 15 mcg [facility] L 15 mcg/2 1-03 as ity of mL 13:48: directed 2 [place] nebulizer 16 (two) Medical solution times Branch daily. MULTIPLE 2020-07 Yes 2 pills a Univ ers VITAMINS 1-03 day ity of DAILY ORAL 13:48: [place] TAB 16 Medical Branch ar[facility] 2020-07 Yes 15ug Use 15 mcg [facility] L 15 mcg/2 1-03 as ity of mL 13:48: directed 2 [place] nebulizer 16 (two) Medical solution times Branch daily. MULTIPLE 2020-07 Yes 2 pills a Univ ers VITAMINS 1-03 day ity of DAILY ORAL 13:48: [place] TAB 16 [facility] Yes 15ug Use 15 mcg [facility] L 15 mcg/2 1-03 as ity of mL 13:48: directed 2 [place] nebulizer 16 (two) Medical solution times Branch daily. MULTIPLE 2020-07 Yes 2 pills a Univ ers VITAMINS 1-03 day ity of DAILY ORAL 13:48: [place] [facility] Yes 15ug Use 15 mcg [facility] L 15 mcg/2 1-03 as ity of mL 13:48: directed 2 [place] nebulizer 16 (two) Medical solution times Branch daily. MULTIPLE 2020-07 Yes 2 pills a Univ ers VITAMINS 1-03 day ity of DAILY ORAL 13:48: [place] [facility] Yes 15ug Use 15 mcg [facility] L 15 mcg/2 1-03 as ity of mL 13:48: directed 2 [place] nebulizer 16 (two) Medical solution times Branch daily. MULTIPLE 2020-07 Yes 2 pills a Univ ers VITAMINS 1-03 day ity of DAILY ORAL 13:48: [place] [facility] Yes 15ug Use 15 mcg [facility] L 15 mcg/2 1-03 as ity of mL 13:48: directed 2 [place] nebulizer 16 (two) Medical solution times Branch daily. MULTIPLE 2020-07 Yes 2 pills a Univ ers VITAMINS 1-03 day ity of DAILY ORAL 13:48: [place] [facility] Yes 15ug Use 15 mcg [facility] L 15 mcg/2 1-03 as ity of mL 13:48: directed 2 [place] nebulizer 16 (two) Medical solution times Branch daily. MULTIPLE 2020-07 Yes 2 pills a Univ ers VITAMINS 1-03 day ity of DAILY ORAL 13:48: [place] [facility] Yes 15ug Use 15 mcg [facility] L 15 mcg/2 1-03 as ity of mL 13:48: directed 2 [place] nebulizer 16 (two) Medical solution times Branch daily. MULTIPLE 2020-07 Yes 2 pills a Univ ers VITAMINS 1-03 day ity of DAILY ORAL 13:48: [place] TAB 16 Medical Branch ar[facility] 2020-07 Yes 15ug Use 15 mcg [facility] L 15 mcg/2 1-03 as ity of mL 13:48: directed 2 [place] nebulizer 16 (two) Medical solution times Branch daily. MULTIPLE 2020-07 Yes 2 pills a Univ ers VITAMINS 1-03 day ity of DAILY ORAL 13:48: [place] TAB 16 Medical Branch ar[facility] 2020-07 Yes 15ug Use 15 mcg [facility] L 15 mcg/2 1-03 as ity of mL 13:48: directed 2 [place] nebulizer 16 (two) Medical solution times Branch daily. MULTIPLE 2020-07 Yes 2 pills a [facility] ers VITAMINS 1-03 day ity of DAILY ORAL 13:48: [place] TAB 16 Medical Branch ar[facility] 2020-07 Yes 15ug Use 15 mcg [facility] L 15 mcg/2 1-03 as ity of mL 13:48: directed 2 [place] nebulizer 16 (two) Medical solution times Branch daily. MULTIPLE 2020-07 Yes 2 pills a Univ ers VITAMINS 1-03 day ity of DAILY ORAL 13:48: [place] [facility] 16 Medical Branch arformotero 2020-07 Yes 15ug Use 15 mcg [facility] L 15 mcg/2 1-03 as ity of mL 13:48: directed 2 [place] nebulizer 16 (two) Medical solution times Branch daily. MULTIPLE 2020-07 Yes 2 pills a Univ ers VITAMINS 1-03 day ity of DAILY ORAL 13:48: [place] TAB 16 Medical Branch ar[facility] 2020-07 Yes 15ug Use 15 mcg [facility] L 15 mcg/2 1-03 as ity of mL 13:48: directed 2 [place] nebulizer 16 (two) Medical solution times Branch daily. MULTIPLE 2020-07 Yes 2 pills a Univ ers VITAMINS 1-03 day ity of DAILY ORAL 13:48: [place] [facility] 16 Medical Branch arformotero 2020-07 Yes 15ug Use 15 mcg Univers L 15 mcg/2 1-03 as ity of mL 13:48: directed 2 [place] nebulizer 16 (two) Medical solution times Branch daily. MULTIPLE 2020-07 Yes 2 pills a Univ ers VITAMINS 1-03 day ity of DAILY ORAL 13:48: [place] TAB 16 Medical Branch ar[facility] 2020-07 Yes 15ug Use 15 mcg [facility] L 15 mcg/2 1-03 as ity of mL 13:48: directed 2 [place] nebulizer 16 (two) Medical solution times Branch daily. MULTIPLE 2020-07 Yes 2 pills a Univ ers VITAMINS 1-03 day ity of DAILY ORAL 13:48: [place] [facility] Yes 15ug Use 15 mcg [facility] L 15 mcg/2 1-03 as ity of mL 13:48: directed 2 [place] nebulizer 16 (two) Medical solution times Branch daily. MULTIPLE 2020-07 Yes 2 pills a Univ ers VITAMINS 1-03 day ity of DAILY ORAL 13:48: [place] [facility] Yes 15ug Use 15 mcg [facility] L 15 mcg/2 1-03 as ity of mL 13:48: directed 2 [place] nebulizer 16 (two) Medical solution times Branch daily. MULTIPLE 2020-07 Yes 2 pills a Univ ers VITAMINS 1-03 day ity of DAILY ORAL 13:48: [place] [facility] Yes 15ug Use 15 mcg [facility] L 15 mcg/2 1-03 as ity of mL 13:48: directed 2 [place] nebulizer 16 (two) Medical solution times Branch daily. MULTIPLE 2020-07 Yes 2 pills a Univ ers VITAMINS 1-03 day ity of DAILY ORAL 13:48: [place] [id number] [facility] Yes 15ug Use 15 mcg [facility] L 15 mcg/2 1-03 as ity of mL 13:48: directed 2 [place] nebulizer 16 (two) Medical solution times Branch daily. MULTIPLE 2020-07 Yes 2 pills a Univ ers VITAMINS 1-03 day ity of DAILY ORAL 13:48: [place] [address] [facility] Yes 15ug Use 15 mcg [facility] L 15 mcg/2 1-03 as ity of mL 13:48: directed 2 [place] nebulizer 16 (two) Medical solution times Branch daily. MULTIPLE 2020-07 Yes 2 pills a Univ ers VITAMINS 1-03 day ity of DAILY ORAL 13:48: [place] [facility] Yes 15ug Use 15 mcg [facility] L 15 mcg/2 1-03 as ity of mL 13:48: directed 2 [place] nebulizer 16 (two) Medical solution times Branch daily. MULTIPLE 2020-07 Yes 2 pills a Univ ers VITAMINS 1-03 day ity of DAILY ORAL 13:48: [place] [facility] 16 [facility] Yes 15ug Use 15 mcg [facility] L 15 mcg/2 1-03 as ity of mL 13:48: directed 2 [place] nebulizer 16 (two) Medical solution times Branch daily. MULTIPLE 2020-07 Yes 2 pills a Univ ers VITAMINS 1-03 day ity of DAILY ORAL 13:48: [place] TAB 16 Medical Branch arformotero 2020-07 Yes 15ug Use 15 mcg [facility] L 15 mcg/2 1-03 as ity of mL 13:48: directed 2 [place] nebulizer 16 (two) Medical solution times Branch daily. MULTIPLE 2020-07 Yes 2 pills a Univ ers VITAMINS 1-03 day ity of DAILY ORAL 13:48: [place] [address] [facility] Yes 15ug Use 15 mcg [facility] L 15 mcg/2 1-03 as ity of mL 13:48: directed 2 [place] nebulizer 16 (two) Medical solution times Branch daily. MULTIPLE 2020-07 Yes 2 pills a Univ ers VITAMINS 1-03 day ity of DAILY ORAL 13:48: [facility] 16 [facility] [place] [facility]07 Yes 15ug Use 15 mcg [facility] L 15 mcg/2 1-03 as ity of mL 13:48: directed 2 [place] nebulizer 16 (two) Medical solution times Branch daily. MULTIPLE 2020-07 Yes 2 pills a Univ ers VITAMINS 1-03 day ity of DAILY ORAL 13:48: [place] [facility] 16 [facility] Yes 15ug Use 15 mcg [facility] L 15 mcg/2 1-03 as ity of mL 13:48: directed 2 [place] nebulizer 16 (two) Medical solution times Branch daily. MULTIPLE 2020-07 Yes 2 pills a Univ ers VITAMINS 1-03 day ity of DAILY ORAL 13:48: [place] [facility] 16 [facility] Yes 15ug Use 15 mcg [facility] L 15 mcg/2 1-03 as ity of mL 13:48: directed 2 [place] nebulizer 16 (two) Medical solution times Branch daily. MULTIPLE 2020-07 Yes 2 pills a [facility] ers VITAMINS 1-03 day ity of DAILY ORAL 13:48: [place] [facility] 16 [facility] Yes 15ug Use 15 mcg [facility] L 15 mcg/2 1-03 as ity of mL 13:48: directed 2 [place] nebulizer 16 (two) Medical solution times Branch daily. MULTIPLE 2020-07 Yes 2 pills a Univ ers VITAMINS 1-03 day ity of DAILY ORAL 13:48: [place] [facility] 16 [facility] Yes 15ug Use 15 mcg [facility] L 15 mcg/2 1-03 as ity of mL 13:48: directed 2 [place] nebulizer 16 (two) Medical solution times Branch daily. MULTIPLE 2020-07 Yes 2 pills a Univ ers VITAMINS 1-03 day ity of DAILY ORAL 13:48: [place] [facility] Yes 15ug Use 15 mcg [facility] L 15 mcg/2 1-03 as ity of mL 13:48: directed 2 [place] nebulizer 16 (two) Medical solution times Branch daily. MULTIPLE 2020-07 Yes 2 pills a Univ ers VITAMINS 1-03 day ity of DAILY ORAL 13:48: [place] [facility] Yes 15ug Use 15 mcg [facility] L 15 mcg/2 1-03 as ity of mL 13:48: directed 2 [place] nebulizer 16 (two) Medical solution times Branch daily. MULTIPLE 2020-07 Yes 2 pills a Univ ers VITAMINS 1-03 day ity of DAILY ORAL 13:48: [place] [facility] Use 15 mcg [facility] L 15 mcg/2 1-03 as ity of mL 13:48: directed 2 [place] nebulizer 16 (two) Medical solution times Branch daily. MULTIPLE 2020-07 Yes 2 pills a Univ ers VITAMINS 1-03 day ity of DAILY ORAL 13:48: [place] [facility] Yes 15ug Use 15 mcg [facility] L 15 mcg/2 1-03 as ity of mL 13:48: directed 2 [place] nebulizer 16 (two) Medical solution times Branch daily. MULTIPLE 2020-07 Yes 2 pills a Univ ers VITAMINS 1-03 day ity of DAILY ORAL 13:48: [place] [facility] Yes 15ug Use 15 mcg [facility] L 15 mcg/2 1-03 as ity of mL 13:48: directed 2 [place] nebulizer 16 (two) Medical solution times Branch daily. MULTIPLE 2020-07 Yes 2 pills a Univ ers VITAMINS 1-03 day ity of DAILY ORAL 13:48: [place] [facility] 16 [facility] Yes 15ug Use 15 mcg [facility] L 15 mcg/2 1-03 as ity of mL 13:48: directed 2 [place] nebulizer 16 (two) Medical solution times Branch daily. MULTIPLE 2020-07 Yes 2 pills a Univ ers VITAMINS 1-03 day ity of DAILY ORAL 13:48: [place] [facility] 16 [facility] Yes 15ug Use 15 mcg [facility] L 15 mcg/2 1-03 as ity of mL 13:48: directed 2 [place] nebulizer 16 (two) Medical solution times Branch daily. MULTIPLE 2020-07 Yes 2 pills a Univ ers VITAMINS 1-03 day ity of DAILY ORAL 13:48: [place] [id number] [facility] Yes 15ug Use 15 mcg [facility] L 15 mcg/2 1-03 as ity of mL 13:48: directed 2 [place] nebulizer 16 (two) Medical solution times Branch daily. MULTIPLE 2020-07 Yes 2 pills a Univ ers VITAMINS 1-03 day ity of DAILY ORAL 13:48: [place] [facility] 16 [facility] Yes 15ug Use 15 mcg Univers L 15 mcg/2 1-03 as ity of mL 13:48: directed 2 [place] nebulizer 16 (two) Medical solution times Branch daily. MULTIPLE 2020-07 Yes 2 pills a Univ ers VITAMINS 1-03 day ity of DAILY ORAL 13:48: [place] [facility] 16 Medical Branch [facility] Use 15 mcg [facility] L 15 mcg/2 1-03 as ity of mL 13:48: directed 2 [place] nebulizer 16 (two) Medical solution times Branch daily. MULTIPLE 2020-07 Yes 2 pills a [facility] ers VITAMINS 1-03 day ity of DAILY ORAL 13:48: [place] [facility] 15 m[facility] L 15 mcg/2 1-03 as ity of mL 13:48: directed 2 [place] nebulizer 16 (two) Medical solution times Branch daily. MULTIPLE 2020-07 Yes 2 pills a [facility] ers VITAMINS 1-03 day ity of DAILY ORAL 13:48: [place] [facility] Yes [facility] Use 15 mcg [facility] L 15 mcg/2 1-03 as ity of mL 13:48: directed 2 [place] nebulizer 16 (two) Medical solution times Branch daily. MULTIPLE 2020-07 Yes 2 pills a [facility] ers VITAMINS 1-03 day ity of DAILY ORAL 13:48: [place] TAB 16 [facility] Yes 15ug Use 15 mcg [facility] L 15 mcg/2 1-03 as ity of mL 13:48: directed 2 [place] nebulizer 16 (two) Medical solution times Branch daily. MULTIPLE 2020-07 Yes 2 pills a [facility] ers VITAMINS 1-03 day ity of DAILY ORAL 13:48: [place] [facility] Yes 15ug Use 15 mcg [facility] L 15 mcg/2 1-03 as ity of mL 13:48: directed 2 [place] nebulizer 16 (two) Medical solution times Branch daily. MULTIPLE 2020-07 Yes 2 pills a [facility] ers VITAMINS 1-03 day ity of DAILY ORAL 13:48: [place] [facility] Yes 15ug Use 15 mcg [facility] L 15 mcg/2 1-03 as ity of mL 13:48: directed 2 [place] nebulizer 16 (two) Medical solution times Branch daily. MULTIPLE 2020-07 Yes 2 pills a [facility] ers VITAMINS 1-03 day ity of DAILY ORAL 13:48: [place] [facility] Yes 15ug Use 15 mcg [facility] L 15 mcg/2 1-03 as ity of mL 13:48: directed 2 [place] nebulizer 16 (two) Medical solution times Branch daily. MULTIPLE 2020-07 Yes 2 pills a [facility] ers VITAMINS 1-03 day ity of DAILY ORAL 13:48: [place] TAB 16 [facility] Yes 15ug Use 15 mcg [facility] L 15 mcg/2 1-03 as ity of mL 13:48: directed 2 [place] nebulizer 16 (two) Medical solution times Branch daily. MULTIPLE 2020-07 Yes 2 pills a [facility] ers VITAMINS 1-03 day ity of DAILY ORAL 13:48: [place] [facility] Yes 15ug Use 15 mcg [facility] L 15 mcg/2 1-03 as ity of mL 13:48: directed 2 [place] nebulizer 16 (two) Medical solution times Branch daily. MULTIPLE 2020-07 Yes 2 pills a [facility] ers VITAMINS 1-03 day ity of DAILY ORAL 13:48: [place] TAB 16 [facility] Yes 15ug Use 15 mcg [facility] L 15 mcg/2 1-03 as ity of mL 13:48: directed 2 [place] nebulizer 16 (two) Medical solution times Branch daily. MULTIPLE 2020-07 Yes 2 pills a [facility] ers VITAMINS 1-03 day ity of DAILY ORAL 13:48: [place] TAB 16 [facility] Yes 15ug Use 15 mcg [facility] L 15 mcg/2 1-03 as ity of mL 13:48: directed 2 [place] nebulizer 16 (two) Medical solution times Branch daily. MULTIPLE 2020-07 Yes 2 pills a [facility] ers VITAMINS 1-03 day ity of DAILY ORAL 13:48: [place] TAB 16 [facility] Yes 15ug Use 15 mcg [facility] L 15 mcg/2 1-03 as ity of mL 13:48: directed 2 [place] nebulizer 16 (two) Medical solution times Branch daily. MULTIPLE 2020-07 Yes 2 pills a [facility] ers VITAMINS 1-03 day ity of DAILY ORAL 13:48: [place] [facility] Use 15 mcg [facility] L 15 mcg/2 1-03 as ity of mL 13:48: directed 2 [place] nebulizer 16 (two) Medical solution times Branch daily. MULTIPLE 2020-07 Yes 2 pills a [facility] ers VITAMINS 1-03 day ity of DAILY ORAL 13:48: [place] TAB [facility] Yes 15ug Use 15 mcg [facility] L 15 mcg/2 1-03 as ity of mL 13:48: directed 2 [place] nebulizer 16 (two) Medical solution times Branch daily. MULTIPLE 2020-07 Yes 2 pills a [facility] ers VITAMINS 1-03 day ity of DAILY ORAL 13:48: [place] TAB [facility] Yes [facility] Use 15 mcg [facility] L 15 mcg/2 1-03 as ity of mL 13:48: directed 2 [place] nebulizer 16 (two) Medical solution times Branch daily. MULTIPLE 2020-07 Yes 2 pills a [facility] ers VITAMINS 1-03 day ity of DAILY ORAL 13:48: [place] TAB 16 Medical [facility] 2020-07 Yes 15ug Use 15 mcg [facility] L 15 mcg/2 07-13 as ity of mL 13:48: directed 2 [place] nebulizer 16 (two) Medical solution times Branch daily. denosumab 202- No [id number] INJECT 1ML [facility] (PROLIA) 60 02-10 06-27 UNDER THE it y of mg/mL 00:00: 00:00 SKIN ONCE [place] injection 00 :00 NOW FOR 1 Medic al DOSE Branch SUMAtriptan Yes [id number] 50mg Take 1 [facility] 50 mg 7-28 tablet by ity of tablet 00:00: mouth once [place] 00 daily as Medical needed for Branch Migraine (do not exceed 10 pills per month). Can treat up to 3 migraines a week SUMAtriptan Yes [id number] 50mg Take 1 [facility] 50 mg 7-28 tablet by ity of tablet 00:00: mouth once [place] 00 daily as Medical needed for Branch Migraine (do not exceed 10 pills per month). Can treat up to 3 migraines a week SUMAtriptan Yes [id number] 50mg Take 1 [facility] 50 mg 7-28 tablet by ity of tablet 00:00: mouth once [place] 00 daily as Medical needed for Branch Migraine (do not exceed 10 pills per month). Can treat up to 3 migraines a week SUMAtriptan Yes [id number] 50mg Take 1 [facility] 50 mg 7-28 tablet by ity of tablet 00:00: mouth once [place] 00 daily as Medical needed for Branch Migraine (do not exceed 10 pills per month). Can treat up to 3 migraines a week SUMAtriptan Yes [id number] 50mg Take 1 [facility] 50 mg 7-28 tablet by ity of tablet 00:00: mouth once [place] 00 daily as Medical needed for Branch Migraine (do not exceed 10 pills per month). Can treat up to 3 migraines a week SUMAtriptan Yes [id number] 50mg Take 1 [facility] 50 mg 7-28 tablet by ity of tablet 00:00: mouth once [place] 00 daily as Medical needed for Branch Migraine (do not exceed 10 pills per month). Can treat up to 3 migraines a week SUMAtriptan Yes [id number] 50mg Take 1 [facility] 50 mg 7-28 tablet by ity of tablet 00:00: mouth once [place] 00 daily as Medical needed for Branch Migraine (do not exceed 10 pills per month). Can treat up to 3 migraines a week SUMAtriptan Yes [id number] 50mg Take 1 [facility] 50 mg 7-28 tablet by ity of tablet 00:00: mouth once [place] 00 daily as Medical needed for Branch Migraine (do not exceed 10 pills per month). Can treat up to 3 migraines a week SUMAtriptan Yes [id number] 50mg Take 1 [facility] 50 mg 7-28 tablet by ity of tablet 00:00: mouth once [place] 00 daily as Medical needed for Branch Migraine (do not exceed 10 pills per month). Can treat up to 3 migraines a week SUMAtriptan Yes [id number] 50mg Take 1 [facility] 50 mg 7-28 tablet by ity of tablet 00:00: mouth once [place] 00 daily as Medical needed for Branch Migraine (do not exceed 10 pills per month). Can treat up to 3 migraines a week SUMAtriptan Yes [id number] 50mg Take 1 [facility] 50 mg 7-28 tablet by ity of tablet 00:00: mouth once [place] 00 daily as Medical needed for Branch Migraine (do not exceed 10 pills per month). Can treat up to 3 migraines a week SUMAtriptan Yes [id number] 50mg Take 1 [facility] 50 mg 7-28 tablet by ity of tablet 00:00: mouth once [place] 00 daily as Medical needed for Branch Migraine (do not exceed 10 pills per month). Can treat up to 3 migraines a week SUMAtriptan Yes [id number] 50mg Take 1 [facility] 50 mg 7-28 tablet by ity of tablet 00:00: mouth once [place] 00 daily as Medical needed for Branch Migraine (do not exceed 10 pills per month). Can treat up to 3 migraines a week SUMAtriptan Yes [id number] 50mg Take 1 [facility] 50 mg 7-28 tablet by ity of tablet 00:00: mouth once [place] 00 daily as Medical needed for Branch Migraine (do not exceed 10 pills per month). Can treat up to 3 migraines a week SUMAtriptan Yes [id number] 50mg Take 1 [facility] 50 mg 7-28 tablet by ity of tablet 00:00: mouth once [place] 00 daily as Medical needed for Branch Migraine (do not exceed 10 pills per month). Can treat up to 3 migraines a week SUMAtriptan Yes [id number] 50mg Take 1 [facility] 50 mg 7-28 tablet by ity of tablet 00:00: mouth once [place] 00 daily as Medical needed for Branch Migraine (do not exceed 10 pills per month). Can treat up to 3 migraines a week SUMAtriptan Yes [id number] 50mg Take 1 [facility] 50 mg 7-28 tablet by ity of tablet 00:00: mouth once [place] 00 daily as Medical needed for Branch Migraine (do not exceed 10 pills per month). Can treat up to 3 migraines a week SUMAtriptan Yes [id number] 50mg Take 1 [facility] 50 mg 7-28 tablet by ity of tablet 00:00: mouth once [place] 00 daily as Medical needed for Branch Migraine (do not exceed 10 pills per month). Can treat up to 3 migraines a week SUMAtriptan Yes [id number] 50mg Take 1 [facility] 50 mg 7-28 tablet by ity of tablet 00:00: mouth once [place] 00 daily as Medical needed for Branch Migraine (do not exceed 10 pills per month). Can treat up to 3 migraines a week SUMAtriptan Yes [id number] 50mg Take 1 [facility] 50 mg 7-28 tablet by ity of tablet 00:00: mouth once [place] 00 daily as Medical needed for Branch Migraine (do not exceed 10 pills per month). Can treat up to 3 migraines a week SUMAtriptan Yes [id number] 50mg Take 1 [facility] 50 mg 7-28 tablet by ity of tablet 00:00: mouth once [place] 00 daily as Medical needed for Branch Migraine (do not exceed 10 pills per month). Can treat up to 3 migraines a week SUMAtriptan Yes [id number] 50mg Take 1 [facility] 50 mg 7-28 tablet by ity of tablet 00:00: mouth once [place] 00 daily as Medical needed for Branch Migraine (do not exceed 10 pills per month). Can treat up to 3 migraines a week SUMAtriptan Yes [id number] 50mg Take 1 [facility] 50 mg 7-28 tablet by ity of tablet 00:00: mouth once [place] 00 daily as Medical needed for Branch Migraine (do not exceed 10 pills per month). Can treat up to 3 migraines a week SUMAtriptan Yes [id number] 50mg Take 1 [facility] 50 mg 7-28 tablet by ity of tablet 00:00: mouth once [place] 00 daily as Medical needed for Branch Migraine (do not exceed 10 pills per month). Can treat up to 3 migraines a week SUMAtriptan Yes [id number] 50mg Take 1 [facility] 50 mg 7-28 tablet by ity of tablet 00:00: mouth once [place] 00 daily as Medical needed for Branch Migraine (do not exceed 10 pills per month). Can treat up to 3 migraines a week SUMAtriptan Yes [id number] 50mg Take 1 [facility] 50 mg 7-28 tablet by ity of tablet 00:00: mouth once [place] 00 daily as Medical needed for Branch Migraine (do not exceed 10 pills per month). Can treat up to 3 migraines a week SUMAtriptan Yes [id number] 50mg Take 1 [facility] 50 mg 7-28 tablet by ity of tablet 00:00: mouth once [place] 00 daily as Medical needed for Branch Migraine (do not exceed 10 pills per month). Can treat up to 3 migraines a week SUMAtriptan Yes [id number] 50mg Take 1 [facility] 50 mg 7-28 tablet by ity of tablet 00:00: mouth once [place] 00 daily as Medical needed for Branch Migraine (do not exceed 10 pills per month). Can treat up to 3 migraines a week SUMAtriptan Yes [id number] 50mg Take 1 [facility] 50 mg 7-28 tablet by ity of tablet 00:00: mouth once [place] 00 daily as Medical needed for Branch Migraine (do not exceed 10 pills per month). Can treat up to 3 migraines a week SUMAtriptan Yes [id number] 50mg Take 1 [facility] 50 mg 7-28 tablet by ity of tablet 00:00: mouth once [place] 00 daily as Medical needed for Branch Migraine (do not exceed 10 pills per month). Can treat up to 3 migraines a week SUMAtriptan Yes [id number] 50mg Take 1 [facility] 50 mg 7-28 tablet by ity of tablet 00:00: mouth once [place] 00 daily as Medical needed for Branch Migraine (do not exceed 10 pills per month). Can treat up to 3 migraines a week SUMAtriptan Yes [id number] 50mg Take 1 [facility] 50 mg 7-28 tablet by ity of tablet 00:00: mouth once [place] 00 daily as Medical needed for Branch Migraine (do not exceed 10 pills per month). Can treat up to 3 migraines a week SUMAtriptan Yes [id number] 50mg Take 1 [facility] 50 mg 7-28 tablet by ity of tablet 00:00: mouth once [place] 00 daily as Medical needed for Branch Migraine (do not exceed 10 pills per month). Can treat up to 3 migraines a week SUMAtriptan Yes [id number] 50mg Take 1 [facility] 50 mg 7-28 tablet by ity of tablet 00:00: mouth once [place] 00 daily as Medical needed for Branch Migraine (do not exceed 10 pills per month). Can treat up to 3 migraines a week SUMAtriptan Yes [id number] 50mg Take 1 [facility] 50 mg 7-28 tablet by ity of tablet 00:00: mouth once [place] 00 daily as Medical needed for Branch Migraine (do not exceed 10 pills per month). Can treat up to 3 migraines a week SUMAtriptan Yes [id number] 50mg Take 1 [facility] 50 mg 7-28 tablet by ity of tablet 00:00: mouth once [place] 00 daily as Medical needed for Branch Migraine (do not exceed 10 pills per month). Can treat up to 3 migraines a week SUMAtriptan Yes [id number] 50mg Take 1 [facility] 50 mg 7-28 tablet by ity of tablet 00:00: mouth once [place] 00 daily as Medical needed for Branch Migraine (do not exceed 10 pills per month). Can treat up to 3 migraines a week SUMAtriptan Yes [id number] 50mg Take 1 [facility] 50 mg 7-28 tablet by ity of tablet 00:00: mouth once [place] 00 daily as Medical needed for Branch Migraine (do not exceed 10 pills per month). Can treat up to 3 migraines a week SUMAtriptan Yes [id number] 50mg Take 1 [facility] 50 mg 7-28 tablet by ity of tablet 00:00: mouth once [place] 00 daily as Medical needed for Branch Migraine (do not exceed 10 pills per month). Can treat up to 3 migraines a week SUMAtriptan Yes [id number] 50mg Take 1 [facility] 50 mg 7-28 tablet by ity of tablet 00:00: mouth once [place] 00 daily as Medical needed for Branch Migraine (do not exceed 10 pills per month). Can treat up to 3 migraines a week SUMAtriptan Yes [id number] 50mg Take 1 [facility] 50 mg 7-28 tablet by ity of tablet 00:00: mouth once [place] 00 daily as Medical needed for Branch Migraine (do not exceed 10 pills per month). Can treat up to 3 migraines a week SUMAtriptan Yes [id number] 50mg Take 1 [facility] 50 mg 7-28 tablet by ity of tablet 00:00: mouth once [place] 00 daily as Medical needed for Branch Migraine (do not exceed 10 pills per month). Can treat up to 3 migraines a week SUMAtriptan Yes [id number] 50mg Take 1 [facility] 50 mg 7-28 tablet by ity of tablet 00:00: mouth once [place] 00 daily as Medical needed for Branch Migraine (do not exceed 10 pills per month). Can treat up to 3 migraines a week SUMAtriptan Yes [id number] 50mg Take 1 [facility] 50 mg 7-28 tablet by ity of tablet 00:00: mouth once [place] 00 daily as Medical needed for Branch Migraine (do not exceed 10 pills per month). Can treat up to 3 migraines a week SUMAtriptan Yes [id number] 50mg Take 1 [facility] 50 mg 7-28 tablet by ity of tablet 00:00: mouth once [place] 00 daily as Medical needed for Branch Migraine (do not exceed 10 pills per month). Can treat up to 3 migraines a week SUMAtriptan Yes [id number] 50mg Take 1 [facility] 50 mg 7-28 tablet by ity of tablet 00:00: mouth once [place] 00 daily as Medical needed for Branch Migraine (do not exceed 10 pills per month). Can treat up to 3 migraines a week SUMAtriptan Yes [id number] 50mg Take 1 [facility] 50 mg 7-28 tablet by ity of tablet 00:00: mouth once [place] 00 daily as Medical needed for Branch Migraine (do not exceed 10 pills per month). Can treat up to 3 migraines a week SUMAtriptan Yes [id number] 50mg Take 1 [facility] 50 mg 7-28 tablet by ity of tablet 00:00: mouth once [place] 00 daily as Medical needed for Branch Migraine (do not exceed 10 pills per month). Can treat up to 3 migraines a week SUMAtriptan Yes [id number] 50mg Take 1 [facility] 50 mg 7-28 tablet by ity of tablet 00:00: mouth once [place] 00 daily as Medical needed for Branch Migraine (do not exceed 10 pills per month). Can treat up to 3 migraines a week SUMAtriptan Yes [id number] 50mg Take 1 [facility] 50 mg 7-28 tablet by ity of tablet 00:00: mouth once [place] 00 daily as Medical needed for Branch Migraine (do not exceed 10 pills per month). Can treat up to 3 migraines a week SUMAtriptan Yes [id number] 50mg Take 1 [facility] 50 mg 7-28 tablet by ity of tablet 00:00: mouth once [place] 00 daily as Medical needed for Branch Migraine (do not exceed 10 pills per month). Can treat up to 3 migraines a week SUMAtriptan Yes [id number] 50mg Take 1 [facility] 50 mg 7-28 tablet by ity of tablet 00:00: mouth once [place] 00 daily as Medical needed for Branch Migraine (do not exceed 10 pills per month). Can treat up to 3 migraines a week SUMAtriptan Yes [id number] 50mg Take 1 [facility] 50 mg 7-28 tablet by ity of tablet 00:00: mouth once [place] 00 daily as Medical needed for Branch Migraine (do not exceed 10 pills per month). Can treat up to 3 migraines a week SUMAtriptan Yes [id number] 50mg Take 1 [facility] 50 mg 7-28 tablet by ity of tablet 00:00: mouth once [place] 00 daily as Medical needed for Branch Migraine (do not exceed 10 pills per month). Can treat up to 3 migraines a week SUMAtriptan Yes [id number] 50mg Take 1 [facility] 50 mg 7-28 tablet by ity of tablet 00:00: mouth once [place] 00 daily as Medical needed for Branch Migraine (do not exceed 10 pills per month). Can treat up to 3 migraines a week SUMAtriptan Yes [id number] 50mg Take 1 [facility] 50 mg 7-28 tablet by ity of tablet 00:00: mouth once [place] 00 daily as Medical needed for Branch Migraine (do not exceed 10 pills per month). Can treat up to 3 migraines a week SUMAtriptan Yes [id number] 50mg Take 1 [facility] 50 mg 7-28 tablet by ity of tablet 00:00: mouth once [place] 00 daily as Medical needed for Branch Migraine (do not exceed 10 pills per month). Can treat up to 3 migraines a week SUMAtriptan Yes [id number] 50mg Take 1 [facility] 50 mg 7-28 tablet by ity of tablet 00:00: mouth once [place] 00 daily as Medical needed for Branch Migraine (do not exceed 10 pills per month). Can treat up to 3 migraines a week SUMAtriptan Yes [id number] 50mg Take 1 [facility] 50 mg 7-28 tablet by ity of tablet 00:00: mouth once [place] 00 daily as Medical needed for Branch Migraine (do not exceed 10 pills per month). Can treat up to 3 migraines a week SUMAtriptan Yes [id number] 50mg Take 1 [facility] 50 mg 7-28 tablet by ity of tablet 00:00: mouth once [place] 00 daily as Medical needed for Branch Migraine (do not exceed 10 pills per month). Can treat up to 3 migraines a week SUMAtriptan Yes [id number] 50mg Take 1 [facility] 50 mg 7-28 tablet by ity of tablet 00:00: mouth once [place] 00 daily as Medical needed for Branch Migraine (do not exceed 10 pills per month). Can treat up to 3 migraines a week SUMAtriptan Yes [id number] 50mg Take 1 [facility] 50 mg 7-28 tablet by ity of tablet 00:00: mouth once [place] 00 daily as Medical needed for Branch Migraine (do not exceed 10 pills per month). Can treat up to 3 migraines a week SUMAtriptan Yes [id number] 50mg Take 1 [facility] 50 mg 7-28 tablet by ity of tablet 00:00: mouth once [place] 00 daily as Medical needed for Branch Migraine (do not exceed 10 pills per month). Can treat up to 3 migraines a week SUMAtriptan Yes [id number] 50mg Take 1 [facility] 50 mg 7-28 tablet by ity of tablet 00:00: mouth once [place] 00 daily as Medical needed for Branch Migraine (do not exceed 10 pills per month). Can treat up to 3 migraines a week SUMAtriptan Yes [id number] 50mg Take 1 [facility] 50 mg 7-28 tablet by ity of tablet 00:00: mouth once [place] 00 daily as Medical needed for Branch Migraine (do not exceed 10 pills per month). Can treat up to 3 migraines a week SUMAtriptan Yes [id number] 50mg Take 1 [facility] 50 mg 7-28 tablet by ity of tablet 00:00: mouth once [place] 00 daily as Medical needed for Branch Migraine (do not exceed 10 pills per month). Can treat up to 3 migraines a week SUMAtriptan Yes [id number] 50mg Take 1 [facility] 50 mg 7-28 tablet by ity of tablet 00:00: mouth once [place] 00 daily as Medical needed for Branch Migraine (do not exceed 10 pills per month). Can treat up to 3 migraines a week SUMAtriptan Yes [id number] 50mg Take 1 [facility] 50 mg 7-28 tablet by ity of tablet 00:00: mouth once [place] 00 daily as Medical needed for Branch Migraine (do not exceed 10 pills per month). Can treat up to 3 migraines a week SUMAtriptan Yes [id number] 50mg Take 1 [facility] 50 mg 7-28 tablet by ity of tablet 00:00: mouth once [place] 00 daily as Medical needed for Branch Migraine (do not exceed 10 pills per month). Can treat up to 3 migraines a week SUMAtriptan Yes [id number] 50mg Take 1 [facility] 50 mg 7-28 tablet by ity of tablet 00:00: mouth once [place] 00 daily as Medical needed for Branch Migraine (do not exceed 10 pills per month). Can treat up to 3 migraines a week SUMAtriptan Yes [id number] 50mg Take 1 [facility] 50 mg 7-28 tablet by ity of tablet 00:00: mouth once [place] 00 daily as Medical needed for Branch Migraine (do not exceed 10 pills per month). Can treat up to 3 migraines a week SUMAtriptan Yes [id number] 50mg Take 1 [facility] 50 mg 7-28 tablet by ity of tablet 00:00: mouth once [place] 00 daily as Medical needed for Branch Migraine (do not exceed 10 pills per month). Can treat up to 3 migraines a week SUMAtriptan Yes [id number] 50mg Take 1 [facility] 50 mg 7-28 tablet by ity of tablet 00:00: mouth once [place] 00 daily as Medical needed for Branch Migraine (do not exceed 10 pills per month). Can treat up to 3 migraines a week SUMAtriptan Yes [id number] 50mg Take 1 [facility] 50 mg 7-28 tablet by ity of tablet 00:00: mouth once [place] 00 daily as Medical needed for Branch Migraine (do not exceed 10 pills per month). Can treat up to 3 migraines a week SUMAtriptan Yes [id number] 50mg Take 1 [facility] 50 mg 7-28 tablet by ity of tablet 00:00: mouth once [place] 00 daily as Medical needed for Branch Migraine (do not exceed 10 pills per month). Can treat up to 3 migraines a week SUMAtriptan Yes [id number] 50mg Take 1 [facility] 50 mg 7-28 tablet by ity of tablet 00:00: mouth once [place] 00 daily as Medical needed for Branch Migraine (do not exceed 10 pills per month). Can treat up to 3 migraines a week SUMAtriptan Yes [id number] 50mg Take 1 [facility] 50 mg 7-28 tablet by ity of tablet 00:00: mouth once [place] 00 daily as Medical needed for Branch Migraine (do not exceed 10 pills per month). Can treat up to 3 migraines a week SUMAtriptan Yes [id number] 50mg Take 1 [facility] 50 mg 7-28 tablet by ity of tablet 00:00: mouth once [place] 00 daily as Medical needed for Branch Migraine (do not exceed 10 pills per month). Can treat up to 3 migraines a week SUMAtriptan Yes [id number] 50mg Take 1 [facility] 50 mg 7-28 tablet by ity of tablet 00:00: mouth once [place] 00 daily as Medical needed for Branch Migraine (do not exceed 10 pills per month). Can treat up to 3 migraines a week SUMAtriptan Yes [id number] 50mg Take 1 [facility] 50 mg 7-28 tablet by ity of tablet 00:00: mouth once [place] 00 daily as Medical needed for Branch Migraine (do not exceed 10 pills per month). Can treat up to 3 migraines a week SUMAtriptan Yes [id number] 50mg Take 1 [facility] 50 mg 7-28 tablet by ity of tablet 00:00: mouth once [place] 00 daily as Medical needed for Branch Migraine (do not exceed 10 pills per month). Can treat up to 3 migraines a week SUMAtriptan Yes [id number] 50mg Take 1 [facility] 50 mg 7-28 tablet by ity of tablet 00:00: mouth once [place] 00 daily as Medical needed for Branch Migraine (do not exceed 10 pills per month). Can treat up to 3 migraines a week SUMAtriptan Yes [id number] 50mg Take 1 [facility] 50 mg 7-28 tablet by ity of tablet 00:00: mouth once [place] 00 daily as Medical needed for Branch Migraine (do not exceed 10 pills per month). Can treat up to 3 migraines a week SUMAtriptan Yes [id number] 50mg Take 1 [facility] 50 mg 7-28 tablet by ity of tablet 00:00: mouth once [place] 00 daily as Medical needed for Branch Migraine (do not exceed 10 pills per month). Can treat up to 3 migraines a week SUMAtriptan Yes [id number] 50mg Take 1 [facility] 50 mg 7-28 tablet by ity of tablet 00:00: mouth once [place] 00 daily as Medical needed for Branch Migraine (do not exceed 10 pills per month). Can treat up to 3 migraines a week SUMAtriptan Yes [id number] 50mg Take 1 [facility] 50 mg 7-28 tablet by ity of tablet 00:00: mouth once [place] 00 daily as Medical needed for Branch Migraine (do not exceed 10 pills per month). Can treat up to 3 migraines a week SUMAtriptan Yes [id number] 50mg Take 1 [facility] 50 mg 7-28 tablet by ity of tablet 00:00: mouth once [place] 00 daily as Medical needed for Branch Migraine (do not exceed 10 pills per month). Can treat up to 3 migraines a week SUMAtriptan Yes [id number] 50mg Take 1 [facility] 50 mg 7-28 tablet by ity of tablet 00:00: mouth once [place] 00 daily as Medical needed for Branch Migraine (do not exceed 10 pills per month). Can treat up to 3 migraines a week SUMAtriptan Yes [id number] 50mg Take 1 [facility] 50 mg 7-28 tablet by ity of tablet 00:00: mouth once [place] 00 daily as Medical needed for Branch Migraine (do not exceed 10 pills per month). Can treat up to 3 migraines a week SUMAtriptan Yes [id number] 50mg Take 1 [facility] 50 mg 7-28 tablet by ity of tablet 00:00: mouth once [place] 00 daily as Medical needed for Branch Migraine (do not exceed 10 pills per month). Can treat up to 3 migraines a week SUMAtriptan Yes [id number] 50mg Take 1 [facility] 50 mg 7-28 tablet by ity of tablet 00:00: mouth once [place] 00 daily as Medical needed for Branch Migraine (do not exceed 10 pills per month). Can treat up to 3 migraines a week SUMAtriptan Yes [id number] 50mg Take 1 [facility] 50 mg 7-28 tablet by ity of tablet 00:00: mouth once [place] 00 daily as Medical needed for Branch Migraine (do not exceed 10 pills per month). Can treat up to 3 migraines a week SUMAtriptan Yes [id number] 50mg Take 1 [facility] 50 mg 7-28 tablet by ity of tablet 00:00: mouth once [place] 00 daily as Medical needed for Branch Migraine (do not exceed 10 pills per month). Can treat up to 3 migraines a week SUMAtriptan Yes [id number] 50mg Take 1 [facility] 50 mg 7-28 tablet by ity of tablet 00:00: mouth once [place] 00 daily as Medical needed for Branch Migraine (do not exceed 10 pills per month). Can treat up to 3 migraines a week SUMAtriptan Yes [id number] 50mg Take 1 [facility] 50 mg 7-28 tablet by ity of tablet 00:00: mouth once [place] 00 daily as Medical needed for Branch Migraine (do not exceed 10 pills per month). Can treat up to 3 migraines a week cycloSPORIN 2020-0 Yes [id number] 1[drp] Place 1 [facility] E 7-15 Drop in ity of (RESTASIS) 00:00: both eyes [place] 0.05 % 00 every 12 Medical drops (twelve) Branch hours. cycloSPORIN 2020-0 Yes [id number] 1[drp] Place 1 [facility] E 7-15 Drop in ity of (RESTASIS) 00:00: both eyes [place] 0.05 % 00 every 12 Medical drops (twelve) Branch hours. cycloSPORIN 2020-0 Yes [id number] 1[drp] Place 1 [facility] E 7-15 Drop in ity of (RESTASIS) 00:00: both eyes [place] 0.05 % 00 every 12 Medical drops (twelve) Branch hours. cycloSPORIN 2020-0 Yes [id number] 1[drp] Place 1 [facility] E 7-15 Drop in ity of (RESTASIS) 00:00: both eyes [place] 0.05 % 00 every 12 Medical drops (twelve) Branch hours. cycloSPORIN 2020- Yes [id number] 1[drp] Place 1 [facility] E 7-15 Drop in ity of (RESTASIS) 00:00: both eyes [place] 0.05 % 00 every 12 Medical drops (twelve) Branch hours. cycloSPORIN 2020-0 Yes [id number] 1[drp] Place 1 [facility] E 7-15 Drop in ity of (RESTASIS) 00:00: both eyes [place] 0.05 % 00 every 12 Medical drops (twelve) Branch hours. cycloSPORIN 2020-0 Yes [id number] 1[drp] Place 1 [facility] E 7-15 Drop in ity of (RESTASIS) 00:00: both eyes [place] 0.05 % 00 every 12 Medical drops (twelve) Branch hours. cycloSPORIN 2020-0 Yes [id number] 1[drp] Place 1 [facility] E 7-15 Drop in ity of (RESTASIS) 00:00: both eyes [place] 0.05 % 00 every 12 Medical drops (twelve) Branch hours. cycloSPORIN 2020-0 Yes [id number] 1[drp] Place 1 [facility] E 7-15 Drop in ity of (RESTASIS) 00:00: both eyes [place] 0.05 % 00 every 12 Medical drops (twelve) Branch hours. cycloSPORIN 2020-0 Yes [id number] 1[drp] Place 1 [facility] E 7-15 Drop in ity of (RESTASIS) 00:00: both eyes [place] 0.05 % 00 every 12 Medical drops (twelve) Branch hours. cycloSPORIN 2020-0 Yes [id number] 1[drp] Place 1 [facility] E 7-15 Drop in ity of (RESTASIS) 00:00: both eyes [place] 0.05 % 00 every 12 Medical drops (twelve) Branch hours. cycloSPORIN 2020-0 Yes [id number] 1[drp] Place 1 [facility] E 7-15 Drop in ity of (RESTASIS) 00:00: both eyes [place] 0.05 % 00 every 12 Medical drops (twelve) Branch hours. cycloSPORIN 2020-0 Yes [id number] 1[drp] Place 1 [facility] E 7-15 Drop in ity of (RESTASIS) 00:00: both eyes [place] 0.05 % 00 every 12 Medical drops (twelve) Branch hours. cycloSPORIN 2020-0 Yes [id number] 1[drp] Place 1 [facility] E 7-15 Drop in ity of (RESTASIS) 00:00: both eyes [place] 0.05 % 00 every 12 Medical drops (twelve) Branch hours. cycloSPORIN 2020-0 Yes [id number] 1[drp] Place 1 [facility] E 7-15 Drop in ity of (RESTASIS) 00:00: both eyes [place] 0.05 % 00 every 12 Medical drops (twelve) Branch hours. cycloSPORIN 2020-0 Yes [id number] 1[drp] Place 1 [facility] E 7-15 Drop in ity of (RESTASIS) 00:00: both eyes [place] 0.05 % 00 every 12 Medical drops (twelve) Branch hours. cycloSPORIN 2020-0 Yes [id number] 1[drp] Place 1 [facility] E 7-15 Drop in ity of (RESTASIS) 00:00: both eyes [place] 0.05 % 00 every 12 Medical drops (twelve) Branch hours. cycloSPORIN 2020-0 2021- No [id number] 1[drp] Place 1 [facility] E 7-15 09-01 Drop in ity of (RESTASIS) 00:00: 00:00 both eyes [place] 0.05 % 00 :00 every 12 Medical drops (twelve) Branch hours. cycloSPORIN 2021- No [id number] 1[drp] Place 1 [facility] E 01-22 Drop in ity of (RESTASIS) 00:00: 00:00 both eyes [place] 0.05 % 00 :00 every 12 Medical drops (twelve) Branch hours. cycloSPORIN 2021- No [id number] 1[drp] Place 1 [facility] E 01-22 Drop in ity of (RESTASIS) 00:00: 00:00 both eyes [place] 0.05 % 00 :00 every 12 Medical drops (twelve) Branch hours. cycloSPORIN 2021- No [id number] 1[drp] Place 1 [facility] E 01-22 Drop in ity of (RESTASIS) 00:00: 00:00 both eyes [place] 0.05 % 00 :00 every 12 Medical drops (twelve) Branch hours. FLUTICASONE Yes [id number] INSTILL 2 [facility] PROPIONATE 6-16 SPRAYS IN ity of 50 00:00: EACH [place] mcg/actuati 00 NOSTRIL Medic al on nasal DAILY Branch spray FLUTICASONE Yes [id number] INSTILL 2 [facility] PROPIONATE 6-16 SPRAYS IN ity of 50 00:00: EACH [place] mcg/actuati 00 NOSTRIL Medic al on nasal DAILY Branch spray FLUTICASONE 0 Yes [id number] INSTILL 2 [facility] PROPIONATE 6-16 SPRAYS IN ity of 50 00:00: EACH [place] mcg/actuati 00 NOSTRIL Medic al on nasal DAILY Branch spray FLUTICASONE 0 Yes [id number] INSTILL 2 [facility] PROPIONATE 6-16 SPRAYS IN ity of 50 00:00: EACH [place] mcg/actuati 00 NOSTRIL Medic al on nasal DAILY Branch spray FLUTICASONE 0 Yes [id number] INSTILL 2 [facility] PROPIONATE 6-16 SPRAYS IN ity of 50 00:00: EACH [place] mcg/actuati 00 NOSTRIL Medic al on nasal DAILY Branch spray FLUTICASONE 0 Yes [id number] INSTILL 2 [facility] PROPIONATE 6-16 SPRAYS IN ity of 50 00:00: EACH [place] mcg/actuati 00 NOSTRIL Medic al on nasal DAILY Branch spray FLUTICASONE 0 Yes [id number] INSTILL 2 [facility] PROPIONATE 6-16 SPRAYS IN ity of 50 00:00: EACH [place] mcg/actuati NOSTRIL Medic al on nasal DAILY Branch spray FLUTICASONE 0 Yes [id number] INSTILL 2 [facility] PROPIONATE 6-16 SPRAYS IN ity of 50 00:00: EACH [place] mcg/actuati NOSTRIL Medic al on nasal DAILY Branch spray FLUTICASONE 0 Yes [id number] INSTILL 2 [facility] PROPIONATE 6-16 SPRAYS IN ity of 50 00:00: EACH [place] mcg/actuati NOSTRIL Medic al on nasal DAILY Branch spray FLUTICASONE 0 Yes [id number] INSTILL 2 [facility] PROPIONATE 6-16 SPRAYS IN ity of 50 00:00: EACH [place] mcg/actuati NOSTRIL Medic al on nasal DAILY Branch spray FLUTICASONE 0 Yes [id number] INSTILL 2 [facility] PROPIONATE 6-16 SPRAYS IN ity of 50 00:00: EACH [place] mcg/actuati NOSTRIL Medic al on nasal DAILY Branch spray FLUTICASONE 0 Yes [id number] INSTILL 2 [facility] PROPIONATE 6-16 SPRAYS IN ity of 50 00:00: EACH [place] mcg/actuati NOSTRIL Medic al on nasal DAILY Branch spray FLUTICASONE 0 Yes [id number] INSTILL 2 [facility] PROPIONATE 6-16 SPRAYS IN ity of 50 00:00: EACH [place] mcg/actuati NOSTRIL Medic al on nasal DAILY Branch spray FLUTICASONE 0 Yes [id number] INSTILL 2 [facility] PROPIONATE 6-16 SPRAYS IN ity of 50 00:00: EACH [place] mcg/actuati NOSTRIL Medic al on nasal DAILY Branch spray FLUTICASONE 0 Yes [id number] INSTILL 2 [facility] PROPIONATE 6-16 SPRAYS IN ity of 50 00:00: EACH [place] mcg/actuati 00 NOSTRIL Medic al on nasal DAILY Branch spray FLUTICASONE 0 Yes [id number] INSTILL 2 [facility] PROPIONATE 6-16 SPRAYS IN ity of 50 00:00: EACH [place] mcg/actuati 00 NOSTRIL Medic al on nasal DAILY Branch spray FLUTICASONE 0 Yes [id number] INSTILL 2 [facility] PROPIONATE 6-16 SPRAYS IN ity of 50 00:00: EACH [place] mcg/actuati NOSTRIL Medic al on nasal DAILY Branch spray FLUTICASONE 0 Yes [id number] INSTILL 2 [facility] PROPIONATE 6-16 SPRAYS IN ity of 50 00:00: EACH [place] mcg/actuati NOSTRIL Medic al on nasal DAILY Branch spray FLUTICASONE 0 Yes [id number] INSTILL 2 [facility] PROPIONATE 6-16 SPRAYS IN ity of 50 00:00: EACH [place] mcg/actuati NOSTRIL Medic al on nasal DAILY Branch spray FLUTICASONE 0 Yes [id number] INSTILL 2 [facility] PROPIONATE 6-16 SPRAYS IN ity of 50 00:00: EACH [place] mcg/actuati NOSTRIL Medic al on nasal DAILY Branch spray FLUTICASONE 0 Yes [id number] INSTILL 2 [facility] PROPIONATE 6-16 SPRAYS IN ity of 50 00:00: EACH [place] mcg/actuati NOSTRIL Medic al on nasal DAILY Branch spray FLUTICASONE 0 Yes [id number] INSTILL 2 [facility] PROPIONATE 6-16 SPRAYS IN ity of 50 00:00: EACH [place] mcg/actuati NOSTRIL Medic al on nasal DAILY Branch spray FLUTICASONE 0 Yes [id number] INSTILL 2 [facility] PROPIONATE 6-16 SPRAYS IN ity of 50 00:00: EACH [place] mcg/actuati NOSTRIL Medic al on nasal DAILY Branch spray FLUTICASONE 0 Yes [id number] INSTILL 2 [facility] PROPIONATE 6-16 SPRAYS IN ity of 50 00:00: EACH [place] mcg/actuati 00 NOSTRIL Medic al on nasal DAILY Branch spray FLUTICASONE 0 Yes [id number] INSTILL 2 [facility] PROPIONATE 6-16 SPRAYS IN ity of 50 00:00: EACH [place] mcg/actuati 00 NOSTRIL Medic al on nasal DAILY Branch spray FLUTICASONE 0 Yes [id number] INSTILL 2 [facility] PROPIONATE 6-16 SPRAYS IN ity of 50 00:00: EACH [place] mcg/actuati 00 NOSTRIL Medic al on nasal DAILY Branch spray FLUTICASONE 0 Yes [id number] INSTILL 2 [facility] PROPIONATE 6-16 SPRAYS IN ity of 50 00:00: EACH [place] mcg/actuati NOSTRIL Medic al on nasal DAILY Branch spray FLUTICASONE 2020-0 Yes [id number] INSTILL 2 [facility] PROPIONATE 6-16 SPRAYS IN ity of 50 00:00: EACH [place] mcg/actuati NOSTRIL Medic al on nasal DAILY Branch spray FLUTICASONE 2020-0 Yes [id number] INSTILL 2 [facility] PROPIONATE 6-16 SPRAYS IN ity of 50 00:00: EACH [place] mcg/actuati NOSTRIL Medic al on nasal DAILY Branch spray FLUTICASONE 2020-0 Yes [id number] INSTILL 2 [facility] PROPIONATE 6-16 SPRAYS IN ity of 50 00:00: EACH [place] mcg/actuati NOSTRIL Medic al on nasal DAILY Branch spray FLUTICASONE 2020-0 Yes [id number] INSTILL 2 [facility] PROPIONATE 6-16 SPRAYS IN ity of 50 00:00: EACH [place] mcg/actuati NOSTRIL Medic al on nasal DAILY Branch spray FLUTICASONE 0 Yes [id number] INSTILL 2 [facility] PROPIONATE 6-16 SPRAYS IN ity of 50 00:00: EACH [place] mcg/actuati NOSTRIL Medic al on nasal DAILY Branch spray FLUTICASONE 0 Yes [id number] INSTILL 2 [facility] PROPIONATE 6-16 SPRAYS IN ity of 50 00:00: EACH [place] mcg/actuati NOSTRIL Medic al on nasal DAILY Branch spray FLUTICASONE 2020-0 Yes [id number] INSTILL 2 [facility] PROPIONATE 6-16 SPRAYS IN ity of 50 00:00: EACH [place] mcg/actuati NOSTRIL Medic al on nasal DAILY Branch spray FLUTICASONE 2020-0 Yes [id number] INSTILL 2 [facility] PROPIONATE 6-16 SPRAYS IN ity of 50 00:00: EACH [place] mcg/actuati 00 NOSTRIL Medic al on nasal DAILY Branch spray FLUTICASONE 2020-0 Yes [id number] INSTILL 2 [facility] PROPIONATE 6-16 SPRAYS IN ity of 50 00:00: EACH [place] mcg/actuati 00 NOSTRIL Medic al on nasal DAILY Branch spray FLUTICASONE 2020-0 Yes [id number] INSTILL 2 [facility] PROPIONATE 6-16 SPRAYS IN ity of 50 00:00: EACH [place] mcg/actuati 00 NOSTRIL Medic al on nasal DAILY Branch spray FLUTICASONE 0 Yes [id number] INSTILL 2 [facility] PROPIONATE 6-16 SPRAYS IN ity of 50 00:00: EACH [place] mcg/actuati NOSTRIL Medic al on nasal DAILY Branch spray FLUTICASONE 2020-0 Yes [id number] INSTILL 2 [facility] PROPIONATE 6-16 SPRAYS IN ity of 50 00:00: EACH [place] mcg/actuati NOSTRIL Medic al on nasal DAILY Branch spray FLUTICASONE 2020-0 Yes [id number] INSTILL 2 [facility] PROPIONATE 6-16 SPRAYS IN ity of 50 00:00: EACH [place] mcg/actuati NOSTRIL Medic al on nasal DAILY Branch spray FLUTICASONE 2020-0 Yes [id number] INSTILL 2 [facility] PROPIONATE 6-16 SPRAYS IN ity of 50 00:00: EACH [place] mcg/actuati NOSTRIL Medic al on nasal DAILY Branch spray FLUTICASONE 0 Yes [id number] INSTILL 2 [facility] PROPIONATE 6-16 SPRAYS IN ity of 50 00:00: EACH [place] mcg/actuati NOSTRIL Medic al on nasal DAILY Branch spray FLUTICASONE 0 Yes [id number] INSTILL 2 [facility] PROPIONATE 6-16 SPRAYS IN ity of 50 00:00: EACH [place] mcg/actuati NOSTRIL Medic al on nasal DAILY Branch spray FLUTICASONE 2020-0 Yes [id number] INSTILL 2 [facility] PROPIONATE 6-16 SPRAYS IN ity of 50 00:00: EACH [place] mcg/actuati NOSTRIL Medic al on nasal DAILY Branch spray FLUTICASONE 2020-0 Yes [id number] INSTILL 2 [facility] PROPIONATE 6-16 SPRAYS IN ity of 50 00:00: EACH [place] mcg/actuati NOSTRIL Medic al on nasal DAILY Branch spray FLUTICASONE 2020-0 Yes [id number] INSTILL 2 [facility] PROPIONATE 6-16 SPRAYS IN ity of 50 00:00: EACH [place] mcg/actuati 00 NOSTRIL Medic al on nasal DAILY Branch spray FLUTICASONE 2020-0 Yes [id number] INSTILL 2 [facility] PROPIONATE 6-16 SPRAYS IN ity of 50 00:00: EACH [place] mcg/actuati NOSTRIL Medic al on nasal DAILY Branch spray FLUTICASONE 0 Yes [id number] INSTILL 2 [facility] PROPIONATE 6-16 SPRAYS IN ity of 50 00:00: EACH [place] mcg/actuati NOSTRIL Medic al on nasal DAILY Branch spray FLUTICASONE 0 Yes [id number] INSTILL 2 [facility] PROPIONATE 6-16 SPRAYS IN ity of 50 00:00: EACH [place] mcg/actuati NOSTRIL Medic al on nasal DAILY Branch spray FLUTICASONE 0 Yes [id number] INSTILL 2 [facility] PROPIONATE 6-16 SPRAYS IN ity of 50 00:00: EACH [place] mcg/actuati NOSTRIL Medic al on nasal DAILY Branch spray FLUTICASONE 0 Yes [id number] INSTILL 2 [facility] PROPIONATE 6-16 SPRAYS IN ity of 50 00:00: EACH [place] mcg/actuati NOSTRIL Medic al on nasal DAILY Branch spray FLUTICASONE 0 Yes [id number] INSTILL 2 [facility] PROPIONATE 6-16 SPRAYS IN ity of 50 00:00: EACH [place] mcg/actuati NOSTRIL Medic al on nasal DAILY Branch spray FLUTICASONE 0 Yes [id number] INSTILL 2 [facility] PROPIONATE 6-16 SPRAYS IN ity of 50 00:00: EACH [place] mcg/actuati NOSTRIL Medic al on nasal DAILY Branch spray FLUTICASONE 0 Yes [id number] INSTILL 2 [facility] PROPIONATE 6-16 SPRAYS IN ity of 50 00:00: EACH [place] mcg/actuati NOSTRIL Medic al on nasal DAILY Branch spray FLUTICASONE 0 Yes [id number] INSTILL 2 [facility] PROPIONATE 6-16 SPRAYS IN ity of 50 00:00: EACH [place] mcg/actuati NOSTRIL Medic al on nasal DAILY Branch spray FLUTICASONE 0 Yes [id number] INSTILL 2 [facility] PROPIONATE 6-16 SPRAYS IN ity of 50 00:00: EACH [place] mcg/actuati 00 NOSTRIL Medic al on nasal DAILY Branch spray FLUTICASONE 0 Yes [id number] INSTILL 2 [facility] PROPIONATE 6-16 SPRAYS IN ity of 50 00:00: EACH [place] mcg/actuati 00 NOSTRIL Medic al on nasal DAILY Branch spray FLUTICASONE 0 Yes [id number] INSTILL 2 [facility] PROPIONATE 6-16 SPRAYS IN ity of 50 00:00: EACH [place] mcg/actuati NOSTRIL Medic al on nasal DAILY Branch spray FLUTICASONE 0 Yes [id number] INSTILL 2 [facility] PROPIONATE 6-16 SPRAYS IN ity of 50 00:00: EACH [place] mcg/actuati NOSTRIL Medic al on nasal DAILY Branch spray FLUTICASONE 0 Yes [id number] INSTILL 2 [facility] PROPIONATE 6-16 SPRAYS IN ity of 50 00:00: EACH [place] mcg/actuati NOSTRIL Medic al on nasal DAILY Branch spray FLUTICASONE 0 Yes [id number] INSTILL 2 [facility] PROPIONATE 6-16 SPRAYS IN ity of 50 00:00: EACH [place] mcg/actuati NOSTRIL Medic al on nasal DAILY Branch spray FLUTICASONE 0 Yes [id number] INSTILL 2 [facility] PROPIONATE 6-16 SPRAYS IN ity of 50 00:00: EACH [place] mcg/actuati NOSTRIL Medic al on nasal DAILY Branch spray FLUTICASONE 0 Yes [id number] INSTILL 2 [facility] PROPIONATE 6-16 SPRAYS IN ity of 50 00:00: EACH [place] mcg/actuati NOSTRIL Medic al on nasal DAILY Branch spray FLUTICASONE 0 Yes [id number] INSTILL 2 [facility] PROPIONATE 6-16 SPRAYS IN ity of 50 00:00: EACH [place] mcg/actuati NOSTRIL Medic al on nasal DAILY Branch spray FLUTICASONE 0 Yes [id number] INSTILL 2 [facility] PROPIONATE 6-16 SPRAYS IN ity of 50 00:00: EACH [place] mcg/actuati NOSTRIL Medic al on nasal DAILY Branch spray FLUTICASONE 0 Yes [id number] INSTILL 2 [facility] PROPIONATE 6-16 SPRAYS IN ity of 50 00:00: EACH [place] mcg/actuati 00 NOSTRIL Medic al on nasal DAILY Branch spray FLUTICASONE 0 Yes [id number] INSTILL 2 [facility] PROPIONATE 6-16 SPRAYS IN ity of 50 00:00: EACH [place] mcg/actuati 00 NOSTRIL Medic al on nasal DAILY Branch spray FLUTICASONE 0 Yes [id number] INSTILL 2 [facility] PROPIONATE 6-16 SPRAYS IN ity of 50 00:00: EACH [place] mcg/actuati NOSTRIL Medic al on nasal DAILY Branch spray FLUTICASONE 0 Yes [id number] INSTILL 2 [facility] PROPIONATE 6-16 SPRAYS IN ity of 50 00:00: EACH [place] mcg/actuati NOSTRIL Medic al on nasal DAILY Branch spray FLUTICASONE 0 Yes [id number] INSTILL 2 [facility] PROPIONATE 6-16 SPRAYS IN ity of 50 00:00: EACH [place] mcg/actuati NOSTRIL Medic al on nasal DAILY Branch spray FLUTICASONE 0 Yes [id number] INSTILL 2 [facility] PROPIONATE 6-16 SPRAYS IN ity of 50 00:00: EACH [place] mcg/actuati NOSTRIL Medic al on nasal DAILY Branch spray FLUTICASONE 0 Yes [id number] INSTILL 2 [facility] PROPIONATE 6-16 SPRAYS IN ity of 50 00:00: EACH [place] mcg/actuati NOSTRIL Medic al on nasal DAILY Branch spray FLUTICASONE 0 Yes [id number] INSTILL 2 [facility] PROPIONATE 6-16 SPRAYS IN ity of 50 00:00: EACH [place] mcg/actuati NOSTRIL Medic al on nasal DAILY Branch spray FLUTICASONE 0 Yes [id number] INSTILL 2 [facility] PROPIONATE 6-16 SPRAYS IN ity of 50 00:00: EACH [place] mcg/actuati NOSTRIL Medic al on nasal DAILY Branch spray FLUTICASONE 0 Yes [id number] INSTILL 2 [facility] PROPIONATE 6-16 SPRAYS IN ity of 50 00:00: EACH [place] mcg/actuati 00 NOSTRIL Medic al on nasal DAILY Branch spray FLUTICASONE 0 Yes [id number] INSTILL 2 [facility] PROPIONATE 6-16 SPRAYS IN ity of 50 00:00: EACH [place] mcg/actuati 00 NOSTRIL Medic al on nasal DAILY Branch spray FLUTICASONE 0 Yes [id number] INSTILL 2 [facility] PROPIONATE 6-16 SPRAYS IN ity of 50 00:00: EACH [place] mcg/actuati 00 NOSTRIL Medic al on nasal DAILY Branch spray FLUTICASONE 2020-0 Yes [id number] INSTILL 2 [facility] PROPIONATE 6-16 SPRAYS IN ity of 50 00:00: EACH [place] mcg/actuati NOSTRIL Medic al on nasal DAILY Branch spray FLUTICASONE 0 Yes [id number] INSTILL 2 [facility] PROPIONATE 6-16 SPRAYS IN ity of 50 00:00: EACH [place] mcg/actuati NOSTRIL Medic al on nasal DAILY Branch spray FLUTICASONE 2020-0 Yes [id number] INSTILL 2 [facility] PROPIONATE 6-16 SPRAYS IN ity of 50 00:00: EACH [place] mcg/actuati NOSTRIL Medic al on nasal DAILY Branch spray FLUTICASONE 2020-0 Yes [id number] INSTILL 2 [facility] PROPIONATE 6-16 SPRAYS IN ity of 50 00:00: EACH [place] mcg/actuati NOSTRIL Medic al on nasal DAILY Branch spray FLUTICASONE 0 Yes [id number] INSTILL 2 [facility] PROPIONATE 6-16 SPRAYS IN ity of 50 00:00: EACH [place] mcg/actuati NOSTRIL Medic al on nasal DAILY Branch spray FLUTICASONE 0 Yes [id number] INSTILL 2 [facility] PROPIONATE 6-16 SPRAYS IN ity of 50 00:00: EACH [place] mcg/actuati NOSTRIL Medic al on nasal DAILY Branch spray FLUTICASONE 0 Yes [id number] INSTILL 2 [facility] PROPIONATE 6-16 SPRAYS IN ity of 50 00:00: EACH [place] mcg/actuati NOSTRIL Medic al on nasal DAILY Branch spray FLUTICASONE 2020-0 Yes [id number] INSTILL 2 [facility] PROPIONATE 6-16 SPRAYS IN ity of 50 00:00: EACH [place] mcg/actuati NOSTRIL Medic al on nasal DAILY Branch spray FLUTICASONE 2020-0 Yes [id number] INSTILL 2 [facility] PROPIONATE 6-16 SPRAYS IN ity of 50 00:00: EACH [place] mcg/actuati 00 NOSTRIL Medic al on nasal DAILY Branch spray FLUTICASONE 0 Yes [id number] INSTILL 2 [facility] PROPIONATE 6-16 SPRAYS IN ity of 50 00:00: EACH [place] mcg/actuati 00 NOSTRIL Medic al on nasal DAILY Branch spray FLUTICASONE 2020-0 Yes [id number] INSTILL 2 [facility] PROPIONATE 6-16 SPRAYS IN ity of 50 00:00: EACH [place] mcg/actuati 00 NOSTRIL Medic al on nasal DAILY Branch spray FLUTICASONE 0 Yes [id number] INSTILL 2 [facility] PROPIONATE 6-16 SPRAYS IN ity of 50 00:00: EACH [place] mcg/actuati NOSTRIL Medic al on nasal DAILY Branch spray FLUTICASONE 2020-0 Yes [id number] INSTILL 2 [facility] PROPIONATE 6-16 SPRAYS IN ity of 50 00:00: EACH [place] mcg/actuati NOSTRIL Medic al on nasal DAILY Branch spray FLUTICASONE 0 Yes [id number] INSTILL 2 [facility] PROPIONATE 6-16 SPRAYS IN ity of 50 00:00: EACH [place] mcg/actuati NOSTRIL Medic al on nasal DAILY Branch spray FLUTICASONE 0 Yes [id number] INSTILL 2 [facility] PROPIONATE 6-16 SPRAYS IN ity of 50 00:00: EACH [place] mcg/actuati NOSTRIL Medic al on nasal DAILY Branch spray FLUTICASONE 0 Yes [id number] INSTILL 2 [facility] PROPIONATE 6-16 SPRAYS IN ity of 50 00:00: EACH [place] mcg/actuati NOSTRIL Medic al on nasal DAILY Branch spray FLUTICASONE 0 Yes [id number] INSTILL 2 [facility] PROPIONATE 6-16 SPRAYS IN ity of 50 00:00: EACH [place] mcg/actuati NOSTRIL Medic al on nasal DAILY Branch spray FLUTICASONE 2020-0 Yes [id number] INSTILL 2 [facility] PROPIONATE 6-16 SPRAYS IN ity of 50 00:00: EACH [place] mcg/actuati NOSTRIL Medic al on nasal DAILY Branch spray DAYVIGO Yes 10mg Take 10 mg [facility] nivers mg Tab 6-07 by mouth ity of 00:00: at [place] [address] bedtime. Medical Branch DAYVIGO Yes 10mg Take 10 mg U nivers mg Tab 6-07 by mouth ity of 00:00: at [place] [address] bedtime. Medical Branch DAYVIGO 0 Yes 10mg Take 10 mg [facility] nivers mg Tab 6-07 by mouth ity of 00:00: at [place] [address] bedtime. Medical Branch DAYVIGO Yes 10mg Take 10 mg [facility] nivers mg Tab 6-07 by mouth ity of 00:00: at [place] [address] bedtime. Medical Branch DAYVIGO 10 Yes 10mg Take 10 mg [facility] nivers mg Tab 6-07 by mouth ity of 00:00: at [place] [address] bedtime. Medical Branch DAYVIGO 10 Yes 10mg Take 10 mg [facility] n[facility] mg Tab 6-07 by mouth ity of 00:00: at [place] [address] bedtime. Medical Branch DAYVIGO 10 Yes 10mg Take 10 mg [facility] n[facility] mg Tab 6-07 by mouth ity of 00:00: at [place] [address] bedtime. Medical Branch DAYVIGO 10 Yes 10mg Take 10 mg [facility] mg Tab 6-07 by mouth ity of 00:00: at [place] [address] bedtime. Medical Branch DAYVIGO 10 Yes 10mg Take 10 mg [facility] mg Tab 6-07 by mouth ity of 00:00: at [place] [address] bedtime. Medical Branch DAYVIGO 10 Yes 10mg Take 10 mg [facility] n[facility] mg Tab 6-07 by mouth ity of 00:00: at [place] [address] bedtime. Medical Branch DAYVIGO 10 Yes 10mg Take 10 mg [facility] n[facility] mg Tab 6-07 by mouth ity of 00:00: at [place] [address] bedtime. Medical Branch DAYVIGO 10 Yes 10mg Take 10 mg [facility] n[facility] mg Tab 6-07 by mouth ity of 00:00: at [place] [address] bedtime. Medical Branch DAYVIGO 10 Yes 10mg Take 10 mg [facility] n[facility] mg Tab 6-07 by mouth ity of 00:00: at [place] [address] bedtime. Medical Branch DAYVIGO 10 Yes 10mg Take 10 mg [facility] nivers mg Tab 6-07 by mouth ity of 00:00: at [place] [address] bedtime. Medical Branch DAYVIGO 10 2021- No 10mg Take 10 mg [facility] mg Tab 6-07 - by mouth ity of 00:00: 00:00 at [place] 00 :00 bedtime. Medical Branch DAYVIGO 10 2021- No 10mg Take 10 mg [facility] mg Tab 6-07 - by mouth ity of 00:00: 00:00 at [place] 00 :00 bedtime. Medical Branch SERTraline 2021- No 100mg Take 100 U nivers 100 mg 5 06-27 mg by ity of tablet 00:00: 00:00 mouth 2 [place] 00 :00 (two) Medical times Branch daily. CLONIDINE 2021- No [id number] TAKE 1 U nivers 0.1 mg 5-27 TABLET BY ity of tablet 00:00: 00:00 MOUTH [place] 00 :00 DAILY Medical NEEDED Branch (HEADACHE ASSOCIATED WITH BLOOD PRESSURE) azelastine Yes 1{spray Use 1 [facility] vers 137 mcg 4-05 } [place] in ity of (0.1 %) 00:00: each [place] nasal spray 00 nostril Medic al daily. Branch azelastine Yes 1{spray Use 1 [facility] vers 137 mcg 4-05 } [place] in ity of (0.1 %) 00:00: each [place] nasal spray 00 nostril Medic al daily. Branch azelastine Yes 1{spray Use 1 [facility] vers 137 mcg 4-05 } [place] in ity of (0.1 %) 00:00: each [place] nasal spray 00 nostril Medic al daily. Branch azelastine Yes 1{spray Use 1 [facility] vers 137 mcg 4-05 } [place] in ity of (0.1 %) 00:00: each [place] nasal spray 00 nostril Medic al daily. Branch azelastine Yes 1{spray Use 1 [facility] vers 137 mcg 4-05 } [place] in ity of (0.1 %) 00:00: each [place] nasal spray 00 nostril Medic al daily. Branch azelastine Yes 1{spray Use 1 [facility] vers 137 mcg 4-05 } [place] in ity of (0.1 %) 00:00: each [place] nasal spray 00 nostril Medic al daily. Branch azelastine Yes 1{spray Use 1 [facility] vers 137 mcg 4-05 } [place] in ity of (0.1 %) 00:00: each [place] nasal spray 00 nostril Medic al daily. Branch azelastine Yes 1{spray Use 1 [facility] vers 137 mcg 4-05 } [facility] (0.1 %) 00:00: each [place] nasal spray 00 nostril Medic al daily. Branch azelastine 2020-0 Yes 1{spray Use 1 [facility] vers 137 mcg 4-05 } [facility] (0.1 %) 00:00: each [place] nasal spray 00 nostril Medic al daily. Branch azelastine 2020-0 Yes 1{spray Use 1 [facility] vers 137 mcg 4-05 } [facility] (0.1 %) 00:00: each [place] nasal spray 00 nostril Medic al daily. Branch azelastine 2020-0 Yes 1{spray Use 1 [facility] vers 137 mcg 4-05 } [facility] (0.1 %) 00:00: each [place] nasal spray 00 nostril Medic al daily. [facility] azelastine 2020-0 Yes 1{spray Use 1 [facility] vers 137 mcg 4-05 } [facility] (0.1 %) 00:00: each [place] nasal spray 00 nostril Medic al daily. Branch azelastine 2020-0 Yes 1{spray Use 1 [facility] vers 137 mcg 4-05 } [facility] (0.1 %) 00:00: each [place] nasal spray 00 nostril Medic al daily. Branch azelastine 2020-0 Yes 1{spray Use 1 [facility] vers 137 mcg 4-05 } [facility] (0.1 %) 00:00: each [place] nasal spray 00 nostril Medic al daily. Branch azelastine 2020-0 Yes 1{spray Use 1 [facility] vers 137 mcg 4-05 } [facility] of (0.1 %) 00:00: each [place] nasal spray 00 nostril Medic al daily. Branch azelastine 2020-0 Yes 1{spray Use 1 [facility] vers 137 mcg 4-05 } [facility] of (0.1 %) 00:00: each [place] nasal spray 00 nostril Medic al daily. Branch azelastine 2020-0 Yes 1{spray Use 1 [facility] vers 137 mcg 4-05 } [facility] of (0.1 %) 00:00: each [place] nasal spray 00 nostril Medic al daily. Branch azelastine 2020-0 Yes 1{spray Use 1 [facility] vers 137 mcg 4-05 } [facility] (0.1 %) 00:00: each [place] nasal spray 00 nostril Medic al daily. [facility] azelastine 2020-0 Yes 1{spray Use 1 [facility] vers 137 mcg 4-05 } [facility] (0.1 %) 00:00: each [place] nasal spray 00 nostril Medic al daily. Branch azelastine 2020-0 Yes 1{spray Use 1 [facility] vers 137 mcg 4-05 } [facility] (0.1 %) 00:00: each [place] nasal spray 00 nostril Medic al daily. Branch azelastine 2020-0 Yes 1{spray Use 1 [facility] vers 137 mcg 4-05 } [facility] of (0.1 %) 00:00: each [place] nasal spray 00 nostril Medic al daily. [facility] azelastine 2020-0 Yes 1{spray Use 1 [facility] vers 137 mcg 4-05 } [facility] (0.1 %) 00:00: each [place] nasal spray 00 nostril Medic al daily. [facility] azelastine 2020-0 Yes 1{spray Use 1 [facility] vers 137 mcg 4-05 } [facility] (0.1 %) 00:00: each [place] nasal spray 00 nostril Medic al daily. [facility] azelastine 2020-0 Yes 1{spray Use 1 [facility] vers 137 mcg 4-05 } [facility] (0.1 %) 00:00: each [place] nasal spray 00 nostril Medic al daily. [facility] azelastine 2020-0 Yes 1{spray Use 1 [facility] vers 137 mcg 4-05 } [facility] (0.1 %) 00:00: each [place] nasal spray 00 nostril Medic al daily. [facility] azelastine 2020-0 Yes 1{spray Use 1 [facility] vers 137 mcg 4-05 } [facility] (0.1 %) 00:00: each [place] nasal spray 00 nostril Medic al daily. [facility] azelastine 2020-0 Yes 1{spray Use 1 [facility] vers 137 mcg 4-05 } [facility] of (0.1 %) 00:00: each [place] nasal spray 00 nostril Medic al daily. [facility] azelastine 2020-0 Yes 1{spray Use 1 [facility] vers 137 mcg 4-05 } [facility] (0.1 %) 00:00: each [place] nasal spray 00 nostril Medic al daily. [facility] azelastine 2020-0 Yes 1{spray Use 1 [facility] vers 137 mcg 4-05 } [facility] (0.1 %) 00:00: each [place] nasal spray 00 nostril Medic al daily. [facility] azelastine 2020-0 Yes 1{spray Use 1 [facility] vers 137 mcg 4-05 } [facility] (0.1 %) 00:00: each [place] nasal spray 00 nostril Medic al daily. [facility] azelastine 2020-0 Yes 1{spray Use 1 [facility] vers 137 mcg 4-05 } [facility] of (0.1 %) 00:00: each [place] nasal spray 00 nostril Medic al daily. [facility] azelastine 2020-0 Yes 1{spray Use 1 [facility] vers 137 mcg 4-05 } [facility] (0.1 %) 00:00: each [place] nasal spray 00 nostril Medic al daily. [facility] azelastine 2020-0 Yes 1{spray Use 1 [facility] vers 137 mcg 4-05 } [facility] (0.1 %) 00:00: each [place] nasal spray 00 nostril Medic al daily. [facility] azelastine 2020-0 Yes 1{spray Use 1 [facility] vers 137 mcg 4-05 } [facility] (0.1 %) 00:00: each [place] nasal spray 00 nostril Medic al daily. [facility] azelastine 2020-0 Yes 1{spray Use 1 [facility] vers 137 mcg 4-05 } [facility] (0.1 %) 00:00: each [place] nasal spray 00 nostril Medic al daily. [facility] azelastine 2020-0 Yes 1{spray Use 1 [facility] vers 137 mcg 4-05 } [facility] (0.1 %) 00:00: each [place] nasal spray 00 nostril Medic al daily. [facility] azelastine 2020-0 Yes 1{spray Use 1 [facility] vers 137 mcg 4-05 } [facility] (0.1 %) 00:00: each [place] nasal spray 00 nostril Medic al daily. [facility] azelastine 2020-0 Yes 1{spray Use 1 [facility] vers 137 mcg 4-05 } [facility] (0.1 %) 00:00: each [place] nasal spray 00 nostril Medic al daily. [facility] azelastine 2020-0 Yes 1{spray Use 1 [facility] vers 137 mcg 4-05 } [facility] (0.1 %) 00:00: each [place] nasal spray 00 nostril Medic al daily. [facility] azelastine 2020-0 Yes 1{spray Use 1 [facility] vers 137 mcg 4-05 } [facility] (0.1 %) 00:00: each [place] nasal spray 00 nostril Medic al daily. [facility] azelastine 2020-0 Yes 1{spray Use 1 [facility] vers 137 mcg 4-05 } [facility] (0.1 %) 00:00: each [place] nasal spray 00 nostril Medic al daily. [facility] azelastine 2020-0 Yes 1{spray Use 1 [facility] vers 137 mcg 4-05 } [facility] (0.1 %) 00:00: each [place] nasal spray 00 nostril Medic al daily. [facility] azelastine 2020-0 Yes 1{spray Use 1 [facility] vers 137 mcg 4-05 } [facility] (0.1 %) 00:00: each [place] nasal spray 00 nostril Medic al daily. [facility] azelastine 2020-0 Yes 1{spray Use 1 [facility] vers 137 mcg 4-05 } [facility] (0.1 %) 00:00: each [place] nasal spray 00 nostril Medic al daily. [facility] azelastine 2020-0 Yes 1{spray Use 1 [facility] vers 137 mcg 4-05 } [facility] (0.1 %) 00:00: each [place] nasal spray 00 nostril Medic al daily. [facility] azelastine 2020-0 Yes 1{spray Use 1 [facility] vers 137 mcg 4-05 } [facility] (0.1 %) 00:00: each [place] nasal spray 00 nostril Medic al daily. [facility] azelastine 2020-0 Yes 1{spray Use 1 [facility] vers 137 mcg 4-05 } [facility] (0.1 %) 00:00: each [place] nasal spray 00 nostril Medic al daily. [facility] azelastine 2020-0 Yes 1{spray Use 1 [facility] vers 137 mcg 4-05 } [facility] (0.1 %) 00:00: each [place] nasal spray 00 nostril Medic al daily. [facility] azelastine 2020-0 Yes 1{spray Use 1 [facility] vers 137 mcg 4-05 } [facility] (0.1 %) 00:00: each [place] nasal spray 00 nostril Medic al daily. [facility] azelastine 2020-0 Yes 1{spray Use 1 [facility] vers 137 mcg 4-05 } [facility] (0.1 %) 00:00: each [place] nasal spray 00 nostril Medic al daily. [facility] azelastine 2020-0 Yes 1{spray Use 1 [facility] vers 137 mcg 4-05 } [facility] (0.1 %) 00:00: each [place] nasal spray 00 nostril Medic al daily. [facility] azelastine 2020-0 Yes 1{spray Use 1 [facility] vers 137 mcg 4-05 } [facility] (0.1 %) 00:00: each [place] nasal spray 00 nostril Medic al daily. [facility] azelastine 2020-0 Yes 1{spray Use 1 [facility] vers 137 mcg 4-05 } [facility] (0.1 %) 00:00: each [place] nasal spray 00 nostril Medic al daily. [facility] azelastine 2020-0 Yes 1{spray Use 1 [facility] vers 137 mcg 4-05 } [facility] (0.1 %) 00:00: each [place] nasal spray 00 nostril Medic al daily. [facility] azelastine 2020-0 Yes 1{spray Use 1 [facility] vers 137 mcg 4-05 } [facility] (0.1 %) 00:00: each [place] nasal spray 00 nostril Medic al daily. [facility] azelastine 2020-0 Yes 1{spray Use 1 [facility] vers 137 mcg 4-05 } [facility] (0.1 %) 00:00: each [place] nasal spray 00 nostril Medic al daily. [facility] azelastine 2020-0 Yes 1{spray Use 1 [facility] vers 137 mcg 4-05 } [facility] (0.1 %) 00:00: each [place] nasal spray 00 nostril Medic al daily. [facility] azelastine 2020-0 Yes 1{spray Use 1 [facility] vers 137 mcg 4-05 } [facility] (0.1 %) 00:00: each [place] nasal spray 00 nostril Medic al daily. [facility] azelastine 2020-0 Yes 1{spray Use 1 [facility] vers 137 mcg 4-05 } [facility] (0.1 %) 00:00: each [place] nasal spray 00 nostril Medic al daily. [facility] azelastine 2020-0 Yes 1{spray Use 1 [facility] vers 137 mcg 4-05 } [facility] (0.1 %) 00:00: each [place] nasal spray 00 nostril Medic al daily. [facility] azelastine 2020-0 Yes 1{spray Use 1 [facility] vers 137 mcg 4-05 } [facility] (0.1 %) 00:00: each [place] nasal spray 00 nostril Medic al daily. [facility] azelastine 2020-0 Yes 1{spray Use 1 [facility] vers 137 mcg 4-05 } [facility] (0.1 %) 00:00: each [place] nasal spray 00 nostril Medic al daily. [facility] azelastine 2020-0 Yes 1{spray Use 1 [facility] vers 137 mcg 4-05 } [facility] (0.1 %) 00:00: each [place] nasal spray 00 nostril Medic al daily. [facility] azelastine 2020-0 Yes 1{spray Use 1 [facility] vers 137 mcg 4-05 } [facility] (0.1 %) 00:00: each [place] nasal spray 00 nostril Medic al daily. [facility] azelastine 2020-0 Yes 1{spray Use 1 [facility] vers 137 mcg 4-05 } [facility] (0.1 %) 00:00: each [place] nasal spray 00 nostril Medic al daily. [facility] azelastine 2020-0 Yes 1{spray Use 1 [facility] vers 137 mcg 4-05 } [facility] (0.1 %) 00:00: each [place] nasal spray 00 nostril Medic al daily. [facility] azelastine 2020-0 Yes 1{spray Use 1 [facility] vers 137 mcg 4-05 } [facility] (0.1 %) 00:00: each [place] nasal spray 00 nostril Medic al daily. [facility] azelastine 2020-0 Yes 1{spray Use 1 [facility] vers 137 mcg 4-05 } [facility] (0.1 %) 00:00: each [place] nasal spray 00 nostril Medic al daily. [facility] azelastine 2020-0 Yes 1{spray Use 1 [facility] vers 137 mcg 4-05 } [facility] (0.1 %) 00:00: each [place] nasal spray 00 nostril Medic al daily. [facility] azelastine 2020-0 Yes 1{spray Use 1 [facility] vers 137 mcg 4-05 } [facility] (0.1 %) 00:00: each [place] nasal spray 00 nostril Medic al daily. [facility] azelastine 2020-0 Yes 1{spray Use 1 [facility] vers 137 mcg 4-05 } [facility] (0.1 %) 00:00: each [place] nasal spray 00 nostril Medic al daily. [facility] azelastine 2020-0 Yes 1{spray Use 1 [facility] vers 137 mcg 4-05 } [facility] (0.1 %) 00:00: each [place] nasal spray 00 nostril Medic al daily. [facility] azelastine 2020-0 Yes 1{spray Use 1 [facility] vers 137 mcg 4-05 } [facility] (0.1 %) 00:00: each [place] nasal spray 00 nostril Medic al daily. [facility] azelastine 2020-0 Yes 1{spray Use 1 [facility] vers 137 mcg 4-05 } [facility] (0.1 %) 00:00: each [place] nasal spray 00 nostril Medic al daily. [facility] azelastine 2020-0 Yes 1{spray Use 1 [facility] vers 137 mcg 4-05 } [facility] (0.1 %) 00:00: each [place] nasal spray 00 nostril Medic al daily. [facility] azelastine 2020-0 Yes 1{spray Use 1 [facility] vers 137 mcg 4-05 } [facility] (0.1 %) 00:00: each [place] nasal spray 00 nostril Medic al daily. [facility] azelastine 2020-0 Yes 1{spray Use 1 [facility] vers 137 mcg 4-05 } [facility] (0.1 %) 00:00: each [place] nasal spray 00 nostril Medic al daily. [facility] azelastine 2020-0 Yes 1{spray Use 1 [facility] vers 137 mcg 4-05 } [facility] (0.1 %) 00:00: each [place] nasal spray 00 nostril Medic al daily. [facility] azelastine 2020-0 Yes 1{spray Use 1 [facility] vers 137 mcg 4-05 } [facility] (0.1 %) 00:00: each [place] nasal spray 00 nostril Medic al daily. [facility] azelastine 2020-0 Yes 1{spray Use 1 [facility] vers 137 mcg 4-05 } [facility] (0.1 %) 00:00: each [place] nasal spray 00 nostril Medic al daily. [facility] azelastine 2020-0 Yes 1{spray Use 1 [facility] vers 137 mcg 4-05 } [facility] (0.1 %) 00:00: each [place] nasal spray 00 nostril Medic al daily. [facility] azelastine 2020-0 Yes 1{spray Use 1 [facility] vers 137 mcg 4-05 } [facility] (0.1 %) 00:00: each [place] nasal spray 00 nostril Medic al daily. [facility] azelastine 2020-0 Yes 1{spray Use 1 [facility] vers 137 mcg 4-05 } [facility] (0.1 %) 00:00: each [place] nasal spray 00 nostril Medic al daily. [facility] azelastine 2020-0 Yes 1{spray Use 1 [facility] vers 137 mcg 4-05 } [facility] (0.1 %) 00:00: each [place] nasal spray 00 nostril Medic al daily. [facility] azelastine 2020-0 Yes 1{spray Use 1 [facility] vers 137 mcg 4-05 } [facility] (0.1 %) 00:00: each [place] nasal spray 00 nostril Medic al daily. [facility] azelastine 2020-0 Yes 1{spray Use 1 [facility] vers 137 mcg 4-05 } [facility] (0.1 %) 00:00: each [place] nasal spray 00 nostril Medic al daily. [facility] azelastine 2020-0 Yes 1{spray Use 1 [facility] vers 137 mcg 4-05 } [facility] (0.1 %) 00:00: each [place] nasal spray 00 nostril Medic al daily. [facility] azelastine 2020-0 Yes 1{spray Use 1 [facility] vers 137 mcg 4-05 } [facility] (0.1 %) 00:00: each [place] nasal spray 00 nostril Medic al daily. [facility] azelastine Yes 1{spray Use 1 [facility] vers 137 mcg 4-05 } [facility] (0.1 %) 00:00: each [place] nasal spray 00 nostril Medic al daily. [facility] azelastine 0 Yes 1{spray Use 1 [facility] vers 137 mcg 4-05 } [facility] (0.1 %) 00:00: each [place] nasal spray 00 nostril Medic al daily. [facility] azelastine Yes 1{spray Use 1 [facility] vers 137 mcg 4-05 } [facility] (0.1 %) 00:00: each [place] nasal spray 00 nostril Medic al daily. [facility] azelastine Yes 1{spray Use 1 [facility] vers 137 mcg 4-05 } [facility] (0.1 %) 00:00: each [place] nasal spray 00 nostril Medic al daily. [facility] azelastine Yes 1{spray Use 1 [facility] vers 137 mcg 4-05 } [facility] (0.1 %) 00:00: each [place] nasal spray 00 nostril Medic al daily. [facility] azelastine Yes 1{spray Use 1 [facility] vers 137 mcg 4-05 } [facility] (0.1 %) 00:00: each [place] nasal spray 00 nostril Medic al daily. [facility] azelastine Yes 1{spray Use 1 [facility] vers 137 mcg 4-05 } [facility] (0.1 %) 00:00: each [place] nasal spray 00 nostril Medic al daily. Branch albuterol 2019-07 Yes [id number] 2{puff} Inhale 2 [facility] 90 2-17 Puffs [facility] of mcg/actuati 00:00: every 6 [place] [facility] inhaler 00 (six) Medical hours as Branch needed for Wheezing or Shortness of Breath. albuterol 2019-07 Yes [id number] 2{puff} Inhale 2 [facility] 90 2-17 Puffs [facility] of mcg/actuati 00:00: every 6 [place] [facility] inhaler 00 (six) Medical hours as [facility] needed for Wheezing or Shortness of Breath. albuterol 2019-07 Yes [id number] 2{puff} Inhale 2 [facility] 90 2-17 Puffs [facility]y of mcg/actuati 00:00: every 6 [place] [facility] [place] inhaler 00 (six) Medical hours as Branch needed for Wheezing or Shortness of Breath. albuterol 2019-07 Yes [id number] 2{puff} Inhale 2 [facility] 90 2-17 Puffs [facility] of mcg/actuati 00:00: every 6 [place] inhaler 00 (six) Medical hours as Branch needed for Wheezing or Shortness of Breath. albuterol 2019-07 Yes [id number] 2{puff} Inhale 2 [facility] 90 2-17 Puffs [facility]y of mcg/actuati 00:00: every 6 [place] [facility] inhaler 00 (six) Medical hours as Branch needed for Wheezing or Shortness of Breath. albuterol 2019-07 Yes [id number] 2{puff} Inhale 2 [facility] 90 2-17 Puffs ity of mcg/actuati 00:00: every 6 [place] inhaler 00 (six) Medical hours as Branch needed for Wheezing or Shortness of Breath. albuterol 2019-07 Yes [id number] 2{puff} Inhale 2 [facility] 90 2-17 Puffs [facility]y of mcg/actuati 00:00: every 6 [place] [facility] inhaler 00 (six) Medical hours as Branch needed for Wheezing or Shortness of Breath. albuterol 2019-07 Yes [id number] 2{puff} Inhale 2 [facility] 90 2-17 Puffs ity of mcg/actuati 00:00: every 6 [place] [facility] [place] inhaler 00 (six) Medical hours as Branch needed for Wheezing or Shortness of Breath. albuterol 2019-07 Yes [id number] 2{puff} Inhale 2 [facility] 90 2-17 Puffs [facility]y of mcg/actuati 00:00: every 6 [place] [facility] inhaler 00 (six) Medical hours as Branch needed for Wheezing or Shortness of Breath. albuterol 2019-07 Yes [id number] 2{puff} Inhale 2 [facility] 90 2-17 Puffs [facility]y of mcg/actuati 00:00: every 6 [place] [facility] inhaler 00 (six) Medical hours as Branch needed for Wheezing or Shortness of Breath. albuterol 2019-07 Yes [id number] 2{puff} Inhale 2 [facility] 90 2-17 Puffs [facility]y of mcg/actuati 00:00: every 6 [place] [facility] inhaler 00 (six) Medical hours as Branch needed for Wheezing or Shortness of Breath. albuterol 2019-07 Yes [id number] 2{puff} Inhale 2 [facility] 90 2-17 Puffs [facility]y of mcg/actuati 00:00: every 6 [place] [facility] inhaler 00 (six) Medical hours as Branch needed for Wheezing or Shortness of Breath. albuterol 2019-07 Yes [id number] 2{puff} Inhale 2 [facility] 90 2-17 Puffs ity of mcg/actuati 00:00: every 6 [place] [facility] inhaler 00 (six) Medical hours as Branch needed for Wheezing or Shortness of Breath. albuterol 2019-07 Yes [id number] 2{puff} Inhale 2 [facility] 90 2-17 Puffs ity of mcg/actuati 00:00: every 6 [place] [facility] inhaler 00 (six) Medical hours as Branch needed for Wheezing or Shortness of Breath. albuterol 2019-07 Yes [id number] 2{puff} Inhale 2 [facility] 90 2-17 Puffs [facility]y of mcg/actuati 00:00: every 6 [place] [facility] inhaler 00 (six) Medical hours as Branch needed for Wheezing or Shortness of Breath. albuterol 2019-07 Yes [id number] 2{puff} Inhale 2 [facility] 90 2-17 Puffs ity of mcg/actuati 00:00: every 6 [place] [facility] inhaler 00 (six) Medical hours as Branch needed for Wheezing or Shortness of Breath. albuterol 2019-07 Yes [id number] 2{puff} Inhale 2 [facility] 90 2-17 Puffs [facility]y of mcg/actuati 00:00: every 6 [place] [facility] inhaler 00 (six) Medical hours as Branch needed for Wheezing or Shortness of Breath. albuterol 2019-07 Yes [id number] 2{puff} Inhale 2 [facility] 90 2-17 Puffs ity of mcg/actuati 00:00: every 6 [place] [facility] inhaler 00 (six) Medical hours as Branch needed for Wheezing or Shortness of Breath. albuterol 2019-07 Yes [id number] 2{puff} Inhale 2 [facility] 90 2-17 Puffs ity of mcg/actuati 00:00: every 6 [place] [facility] inhaler 00 (six) Medical hours as Branch needed for Wheezing or Shortness of Breath. albuterol 2019-07 Yes [id number] 2{puff} Inhale 2 [facility] 90 2-17 Puffs ity of mcg/actuati 00:00: every 6 [place] [facility] inhaler 00 (six) Medical hours as Branch needed for Wheezing or Shortness of Breath. albuterol 2019-07 Yes [id number] 2{puff} Inhale 2 [facility] 90 2-17 Puffs ity of mcg/actuati 00:00: every 6 [place] [facility] inhaler 00 (six) Medical hours as Branch needed for Wheezing or Shortness of Breath. albuterol 2019-07 Yes [id number] 2{puff} Inhale 2 [facility] 90 2-17 Puffs ity of mcg/actuati 00:00: every 6 [place] [facility] inhaler 00 (six) Medical hours as Branch needed for Wheezing or Shortness of Breath. albuterol 2019-07 Yes [id number] 2{puff} Inhale 2 [facility] 90 2-17 Puffs ity of mcg/actuati 00:00: every 6 [place] [facility] inhaler 00 (six) Medical hours as Branch needed for Wheezing or Shortness of Breath. albuterol 2019-07 Yes [id number] 2{puff} Inhale 2 [facility] 90 2-17 Puffs [facility]y of mcg/actuati 00:00: every 6 [place] [facility] on inhaler 00 (six) Medical hours as Branch needed for Wheezing or Shortness of Breath. albuterol 2019-07 Yes [id number] 2{puff} Inhale 2 [facility] 90 2-17 Puffs ity of mcg/actuati 00:00: every 6 [place] [facility] on inhaler 00 (six) Medical hours as Branch needed for Wheezing or Shortness of Breath. albuterol 2019-07 Yes [id number] 2{puff} Inhale 2 [facility] 90 2-17 Puffs ity of mcg/actuati 00:00: every 6 [place] [facility] on inhaler 00 (six) Medical hours as Branch needed for Wheezing or Shortness of Breath. albuterol 2019-07 Yes [id number] 2{puff} Inhale 2 [facility] 90 2-17 Puffs ity of mcg/actuati 00:00: every 6 [place] [facility] inhaler 00 (six) Medical hours as Branch needed for Wheezing or Shortness of Breath. albuterol 2019-07 Yes [id number] 2{puff} Inhale 2 [facility] 90 2-17 Puffs ity of mcg/actuati 00:00: every 6 [place] [facility] on inhaler 00 (six) Medical hours as Branch needed for Wheezing or Shortness of Breath. albuterol 2019-07 Yes [id number] 2{puff} Inhale 2 [facility] 90 2-17 Puffs ity of mcg/actuati 00:00: every 6 [place] [facility] on inhaler 00 (six) Medical hours as Branch needed for Wheezing or Shortness of Breath. albuterol 2019-07 Yes [id number] 2{puff} Inhale 2 [facility] 90 2-17 Puffs [facility]y of mcg/actuati 00:00: every 6 [place] [facility] on inhaler 00 (six) Medical hours as Branch needed for Wheezing or Shortness of Breath. albuterol 2019-07 Yes [id number] 2{puff} Inhale 2 [facility] 90 2-17 Puffs ity of mcg/actuati 00:00: every 6 [place] [facility] on inhaler 00 (six) Medical hours as Branch needed for Wheezing or Shortness of Breath. albuterol 2019-07 Yes [id number] 2{puff} Inhale 2 [facility] 90 2-17 Puffs ity of mcg/actuati 00:00: every 6 [place] [facility] on inhaler 00 (six) Medical hours as Branch needed for Wheezing or Shortness of Breath. albuterol 2019-07 Yes [id number] 2{puff} Inhale 2 [facility] 90 2-17 Puffs [facility]y of mcg/actuati 00:00: every 6 [place] [facility] on inhaler 00 (six) Medical hours as Branch needed for Wheezing or Shortness of Breath. albuterol 2019-07 Yes [id number] 2{puff} Inhale 2 [facility] 90 2-17 Puffs ity of mcg/actuati 00:00: every 6 [place] [facility] on inhaler 00 (six) Medical hours as Branch needed for Wheezing or Shortness of Breath. albuterol 2019-07 Yes [id number] 2{puff} Inhale 2 [facility] 90 2-17 Puffs ity of mcg/actuati 00:00: every 6 [place] as on inhaler 00 (six) Medical hours as Branch needed for Wheezing or Shortness of Breath. albuterol 2019-07 Yes [id number] 2{puff} Inhale 2 [facility] 90 2-17 Puffs ity of mcg/actuati 00:00: every 6 [place] as on inhaler 00 (six) Medical hours as Branch needed for Wheezing or Shortness of Breath. albuterol 2019-07 Yes [id number] 2{puff} Inhale 2 [facility] 90 2-17 Puffs ity of mcg/actuati 00:00: every 6 [place] as on inhaler 00 (six) Medical hours as Branch needed for Wheezing or Shortness of Breath. albuterol 2019-07 Yes [id number] 2{puff} Inhale 2 [facility] 90 2-17 Puffs ity of mcg/actuati 00:00: every 6 [place] as on inhaler 00 (six) Medical hours as Branch needed for Wheezing or Shortness of Breath. albuterol 2019-07 Yes [id number] 2{puff} Inhale 2 [facility] 90 2-17 Puffs ity of mcg/actuati 00:00: every 6 [place] as on inhaler 00 (six) Medical hours as Branch needed for Wheezing or Shortness of Breath. albuterol 2019-07 Yes [id number] 2{puff} Inhale 2 [facility] 90 2-17 Puffs ity of mcg/actuati 00:00: every 6 [place] as on inhaler 00 (six) Medical hours as Branch needed for Wheezing or Shortness of Breath. albuterol 2019-07 Yes [id number] 2{puff} Inhale 2 [facility] 90 2-17 Puffs ity of mcg/actuati 00:00: every 6 [place] as on inhaler 00 (six) Medical hours as Branch needed for Wheezing or Shortness of Breath. albuterol 2019-07 Yes [id number] 2{puff} Inhale 2 [facility] 90 2-17 Puffs ity of mcg/actuati 00:00: every 6 [place] as on inhaler 00 (six) Medical hours as Branch needed for Wheezing or Shortness of Breath. albuterol 2019-07 Yes [id number] 2{puff} Inhale 2 [facility] 90 2-17 Puffs ity of mcg/actuati 00:00: every 6 [place] as on inhaler 00 (six) Medical hours as Branch needed for Wheezing or Shortness of Breath. albuterol 2019-07 Yes [id number] 2{puff} Inhale 2 [facility] 90 2-17 Puffs ity of mcg/actuati 00:00: every 6 [place] as on inhaler 00 (six) Medical hours as Branch needed for Wheezing or Shortness of Breath. albuterol 2019-07 Yes [id number] 2{puff} Inhale 2 [facility] 90 2-17 Puffs ity of mcg/actuati 00:00: every 6 [place] as on inhaler 00 (six) Medical hours as Branch needed for Wheezing or Shortness of Breath. albuterol 2019-07 Yes [id number] 2{puff} Inhale 2 [facility] 90 2-17 Puffs ity of mcg/actuati 00:00: every 6 [place] as on inhaler 00 (six) Medical hours as Branch needed for Wheezing or Shortness of Breath. albuterol 2019-07 Yes [id number] 2{puff} Inhale 2 [facility] 90 2-17 Puffs ity of mcg/actuati 00:00: every 6 [place] as on inhaler 00 (six) Medical hours as Branch needed for Wheezing or Shortness of Breath. albuterol 2019-07 Yes [id number] 2{puff} Inhale 2 [facility] 90 2-17 Puffs ity of mcg/actuati 00:00: every 6 [place] as on inhaler 00 (six) Medical hours as Branch needed for Wheezing or Shortness of Breath. albuterol 2019-07 Yes [id number] 2{puff} Inhale 2 [facility] 90 2-17 Puffs ity of mcg/actuati 00:00: every 6 [place] as on inhaler 00 (six) Medical hours as Branch needed for Wheezing or Shortness of Breath. albuterol 2019-07 Yes [id number] 2{puff} Inhale 2 [facility] 90 2-17 Puffs ity of mcg/actuati 00:00: every 6 [place] as on inhaler 00 (six) Medical hours as Branch needed for Wheezing or Shortness of Breath. albuterol 2019-07 Yes [id number] 2{puff} Inhale 2 [facility] 90 2-17 Puffs ity of mcg/actuati 00:00: every 6 [place] as on inhaler 00 (six) Medical hours as Branch needed for Wheezing or Shortness of Breath. albuterol 2019-07 Yes [id number] 2{puff} Inhale 2 [facility] 90 2-17 Puffs ity of mcg/actuati 00:00: every 6 [place] as on inhaler 00 (six) Medical hours as Branch needed for Wheezing or Shortness of Breath. albuterol 2020- Yes [id number] 2{puff} Inhale 2 [facility] 90 2-17 Puffs ity of mcg/actuati 00:00: every 6 [place] as on inhaler 00 (six) Medical hours as Branch needed for Wheezing or Shortness of Breath. Fluticasone 2020- Yes [id number] 1{puff} Inhale 1 [facility] -Salmeterol 2-17 Puff every it y of (ADVAIR 00:00: 12 [place] DISKUS) 00 (twelve) Medical 500-50 hours. Branch mcg/dose inhalation disk albuterol 2020- Yes [id number] 2{puff} Inhale 2 [facility] 90 2-17 Puffs ity of mcg/actuati 00:00: every 6 [place] as on inhaler 00 (six) Medical hours as Branch needed for Wheezing or Shortness of Breath. Fluticasone 2020- Yes [id number] 1{puff} Inhale 1 [facility] -Salmeterol 2-17 Puff every it y of (ADVAIR 00:00: 12 [place] DISKUS) 00 (twelve) Medical 500-50 hours. Branch mcg/dose inhalation disk albuterol 2020- Yes [id number] 2{puff} Inhale 2 [facility] 90 2-17 Puffs ity of mcg/actuati 00:00: every 6 [place] as on inhaler 00 (six) Medical hours as Branch needed for Wheezing or Shortness of Breath. Fluticasone 2020- Yes [id number] 1{puff} Inhale 1 [facility] -Salmeterol 2-17 Puff every it y of (ADVAIR 00:00: 12 [place] DISKUS) 00 (twelve) Medical 500-50 hours. Branch mcg/dose inhalation disk albuterol 2020- Yes [id number] 2{puff} Inhale 2 [facility] 90 2-17 Puffs ity of mcg/actuati 00:00: every 6 [place] as on inhaler 00 (six) Medical hours as Branch needed for Wheezing or Shortness of Breath. Fluticasone 2020- Yes [id number] 1{puff} Inhale 1 [facility] -Salmeterol 2-17 Puff every it y of (ADVAIR 00:00: 12 [place] DISKUS) 00 (twelve) Medical 500-50 hours. Branch mcg/dose inhalation disk albuterol 2020-1 Yes [id number] 2{puff} Inhale 2 [facility] 90 2-17 Puffs ity of mcg/actuati 00:00: every 6 [place] as on inhaler 00 (six) Medical hours as Branch needed for Wheezing or Shortness of Breath. Fluticasone 2020-1 Yes [id number] 1{puff} Inhale 1 [facility] -Salmeterol 2-17 Puff every it y of (ADVAIR 00:00: 12 [place] DISKUS) 00 (twelve) Medical 500-50 hours. Branch mcg/dose inhalation disk albuterol 2020-1 Yes [id number] 2{puff} Inhale 2 [facility] 90 2-17 Puffs ity of mcg/actuati 00:00: every 6 [place] as on inhaler 00 (six) Medical hours as Branch needed for Wheezing or Shortness of Breath. Fluticasone 2020-1 Yes [id number] 1{puff} Inhale 1 [facility] -Salmeterol 2-17 Puff every it y of (ADVAIR 00:00: 12 [place] DISKUS) 00 (twelve) Medical 500-50 hours. Branch mcg/dose inhalation disk albuterol 2020-1 Yes [id number] 2{puff} Inhale 2 [facility] 90 2-17 Puffs ity of mcg/actuati 00:00: every 6 [place] as on inhaler 00 (six) Medical hours as Branch needed for Wheezing or Shortness of Breath. Fluticasone 2020-1 Yes [id number] 1{puff} Inhale 1 [facility] -Salmeterol 2-17 Puff every it y of (ADVAIR 00:00: 12 [place] DISKUS) 00 (twelve) Medical 500-50 hours. Branch mcg/dose inhalation disk albuterol 2020-1 Yes [id number] 2{puff} Inhale 2 [facility] 90 2-17 Puffs ity of mcg/actuati 00:00: every 6 [place] as on inhaler 00 (six) Medical hours as Branch needed for Wheezing or Shortness of Breath. Fluticasone 2020-1 Yes [id number] 1{puff} Inhale 1 [facility] -Salmeterol 2-17 Puff every it y of (ADVAIR 00:00: 12 [place] DISKUS) 00 (twelve) Medical 500-50 hours. Branch mcg/dose inhalation disk albuterol 2020-1 Yes [id number] 2{puff} Inhale 2 [facility] 90 2-17 Puffs ity of mcg/actuati 00:00: every 6 [place] as on inhaler 00 (six) Medical hours as Branch needed for Wheezing or Shortness of Breath. Fluticasone 2020-1 Yes [id number] 1{puff} Inhale 1 [facility] -Salmeterol 2-17 Puff every it y of (ADVAIR 00:00: 12 [place] DISKUS) 00 (twelve) Medical 500-50 hours. Branch mcg/dose inhalation disk albuterol 2020-1 Yes [id number] 2{puff} Inhale 2 [facility] 90 2-17 Puffs ity of mcg/actuati 00:00: every 6 [place] as on inhaler 00 (six) Medical hours as Branch needed for Wheezing or Shortness of Breath. Fluticasone 2020-1 Yes [id number] 1{puff} Inhale 1 [facility] -Salmeterol 2-17 Puff every it y of (ADVAIR 00:00: 12 [place] DISKUS) 00 (twelve) Medical 500-50 hours. Branch mcg/dose inhalation disk albuterol 2020-1 Yes [id number] 2{puff} Inhale 2 [facility] 90 2-17 Puffs ity of mcg/actuati 00:00: every 6 [place] as on inhaler 00 (six) Medical hours as Branch needed for Wheezing or Shortness of Breath. Fluticasone 2020-1 Yes [id number] 1{puff} Inhale 1 [facility] -Salmeterol 2-17 Puff every it y of (ADVAIR 00:00: 12 [place] DISKUS) 00 (twelve) Medical 500-50 hours. Branch mcg/dose inhalation disk albuterol 2020-1 Yes [id number] 2{puff} Inhale 2 [facility] 90 2-17 Puffs ity of mcg/actuati 00:00: every 6 [place] as on inhaler 00 (six) Medical hours as Branch needed for Wheezing or Shortness of Breath. Fluticasone 2020-1 Yes [id number] 1{puff} Inhale 1 [facility] -Salmeterol 2-17 Puff every it y of (ADVAIR 00:00: 12 [place] DISKUS) 00 (twelve) Medical 500-50 hours. Branch mcg/dose inhalation disk albuterol 2020- Yes [id number] 2{puff} Inhale 2 [facility] 90 2-17 Puffs ity of mcg/actuati 00:00: every 6 [place] as on inhaler 00 (six) Medical hours as Branch needed for Wheezing or Shortness of Breath. Fluticasone 2020- Yes [id number] 1{puff} Inhale 1 [facility] -Salmeterol 2-17 Puff every it y of (ADVAIR 00:00: 12 [place] DISKUS) 00 (twelve) Medical 500-50 hours. Branch mcg/dose inhalation disk albuterol 2020- Yes [id number] 2{puff} Inhale 2 [facility] 90 2-17 Puffs ity of mcg/actuati 00:00: every 6 [place] as on inhaler 00 (six) Medical hours as Branch needed for Wheezing or Shortness of Breath. Fluticasone 2020- Yes [id number] 1{puff} Inhale 1 [facility] -Salmeterol 2-17 Puff every it y of (ADVAIR 00:00: 12 [place] DISKUS) 00 (twelve) Medical 500-50 hours. Branch mcg/dose inhalation disk albuterol 2020- Yes [id number] 2{puff} Inhale 2 [facility] 90 2-17 Puffs ity of mcg/actuati 00:00: every 6 [place] as on inhaler 00 (six) Medical hours as Branch needed for Wheezing or Shortness of Breath. albuterol 2020- Yes [id number] 2{puff} Inhale 2 [facility] 90 2-17 Puffs ity of mcg/actuati 00:00: every 6 [place] as on inhaler 00 (six) Medical hours as Branch needed for Wheezing or Shortness of Breath. albuterol 2020- Yes [id number] 2{puff} Inhale 2 [facility] 90 2-17 Puffs ity of mcg/actuati 00:00: every 6 [place] as on inhaler 00 (six) Medical hours as Branch needed for Wheezing or Shortness of Breath. albuterol 2020- Yes [id number] 2{puff} Inhale 2 [facility] 90 2-17 Puffs ity of mcg/actuati 00:00: every 6 [place] as on inhaler 00 (six) Medical hours as Branch needed for Wheezing or Shortness of Breath. albuterol 2019-07 Yes [id number] 2{puff} Inhale 2 [facility] 90 2-17 Puffs ity of mcg/actuati 00:00: every 6 [place] as on inhaler 00 (six) Medical hours as Branch needed for Wheezing or Shortness of Breath. albuterol 2019-07 Yes [id number] 2{puff} Inhale 2 [facility] 90 2-17 Puffs ity of mcg/actuati 00:00: every 6 [place] as on inhaler 00 (six) Medical hours as Branch needed for Wheezing or Shortness of Breath. albuterol 2019-07 Yes [id number] 2{puff} Inhale 2 [facility] 90 2-17 Puffs ity of mcg/actuati 00:00: every 6 [place] as on inhaler 00 (six) Medical hours as Branch needed for Wheezing or Shortness of Breath. albuterol 2019-07 Yes [id number] 2{puff} Inhale 2 [facility] 90 2-17 Puffs ity of mcg/actuati 00:00: every 6 [place] as on inhaler 00 (six) Medical hours as Branch needed for Wheezing or Shortness of Breath. albuterol 2019-07 Yes [id number] 2{puff} Inhale 2 [facility] 90 2-17 Puffs ity of mcg/actuati 00:00: every 6 [place] as on inhaler 00 (six) Medical hours as Branch needed for Wheezing or Shortness of Breath. albuterol 2019-07 Yes [id number] 2{puff} Inhale 2 [facility] 90 2-17 Puffs ity of mcg/actuati 00:00: every 6 [place] as on inhaler 00 (six) Medical hours as Branch needed for Wheezing or Shortness of Breath. albuterol 2019-07 Yes [id number] 2{puff} Inhale 2 [facility] 90 2-17 Puffs ity of mcg/actuati 00:00: every 6 [place] as on inhaler 00 (six) Medical hours as Branch needed for Wheezing or Shortness of Breath. albuterol 2019-07 Yes [id number] 2{puff} Inhale 2 [facility] 90 2-17 Puffs ity of mcg/actuati 00:00: every 6 [place] as on inhaler 00 (six) Medical hours as Branch needed for Wheezing or Shortness of Breath. albuterol 2019-07 Yes [id number] 2{puff} Inhale 2 [facility] 90 2-17 Puffs ity of mcg/actuati 00:00: every 6 [place] as on inhaler 00 (six) Medical hours as Branch needed for Wheezing or Shortness of Breath. albuterol 2019-07 Yes [id number] 2{puff} Inhale 2 [facility] 90 2-17 Puffs ity of mcg/actuati 00:00: every 6 [place] as on inhaler 00 (six) Medical hours as Branch needed for Wheezing or Shortness of Breath. albuterol 2019-07 Yes [id number] 2{puff} Inhale 2 [facility] 90 2-17 Puffs ity of mcg/actuati 00:00: every 6 [place] as on inhaler 00 (six) Medical hours as Branch needed for Wheezing or Shortness of Breath. albuterol 2019-07 Yes [id number] 2{puff} Inhale 2 [facility] 90 2-17 Puffs ity of mcg/actuati 00:00: every 6 [place] as on inhaler 00 (six) Medical hours as Branch needed for Wheezing or Shortness of Breath. albuterol 2019-07 Yes [id number] 2{puff} Inhale 2 [facility] 90 2-17 Puffs ity of mcg/actuati 00:00: every 6 [place] as on inhaler 00 (six) Medical hours as Branch needed for Wheezing or Shortness of Breath. albuterol 2019-07 Yes [id number] 2{puff} Inhale 2 [facility] 90 2-17 Puffs ity of mcg/actuati 00:00: every 6 [place] as on inhaler 00 (six) Medical hours as Branch needed for Wheezing or Shortness of Breath. albuterol 2019-07 Yes [id number] 2{puff} Inhale 2 [facility] 90 2-17 Puffs ity of mcg/actuati 00:00: every 6 [place] as on inhaler 00 (six) Medical hours as Branch needed for Wheezing or Shortness of Breath. albuterol 2019-07 Yes [id number] 2{puff} Inhale 2 [facility] 90 2-17 Puffs ity of mcg/actuati 00:00: every 6 [place] as on inhaler 00 (six) Medical hours as Branch needed for Wheezing or Shortness of Breath. albuterol 2019-07 Yes [id number] 2{puff} Inhale 2 [facility] 90 2-17 Puffs ity of mcg/actuati 00:00: every 6 [place] as on inhaler 00 (six) Medical hours as Branch needed for Wheezing or Shortness of Breath. albuterol 2019-07 Yes [id number] 2{puff} Inhale 2 [facility] 90 2-17 Puffs ity of mcg/actuati 00:00: every 6 [place] as on inhaler 00 (six) Medical hours as Branch needed for Wheezing or Shortness of Breath. albuterol 2019-07 Yes [id number] 2{puff} Inhale 2 [facility] 90 2-17 Puffs ity of mcg/actuati 00:00: every 6 [place] as on inhaler 00 (six) Medical hours as Branch needed for Wheezing or Shortness of Breath. albuterol 2019-07 Yes [id number] 2{puff} Inhale 2 [facility] 90 2-17 Puffs ity of mcg/actuati 00:00: every 6 [place] as on inhaler 00 (six) Medical hours as Branch needed for Wheezing or Shortness of Breath. albuterol 2019-07 Yes [id number] 2{puff} Inhale 2 [facility] 90 2-17 Puffs ity of mcg/actuati 00:00: every 6 [place] as on inhaler 00 (six) Medical hours as Branch needed for Wheezing or Shortness of Breath. albuterol 2019-07 Yes [id number] 2{puff} Inhale 2 [facility] 90 2-17 Puffs ity of mcg/actuati 00:00: every 6 [place] as on inhaler 00 (six) Medical hours as Branch needed for Wheezing or Shortness of Breath. albuterol 2019-07 Yes [id number] 2{puff} Inhale 2 [facility] 90 2-17 Puffs ity of mcg/actuati 00:00: every 6 [place] as on inhaler 00 (six) Medical hours as Branch needed for Wheezing or Shortness of Breath. albuterol 2019-07 Yes [id number] 2{puff} Inhale 2 [facility] 90 2-17 Puffs ity of mcg/actuati 00:00: every 6 [place] as on inhaler 00 (six) Medical hours as Branch needed for Wheezing or Shortness of Breath. albuterol 2019-07 Yes [id number] 2{puff} Inhale 2 [facility] 90 2-17 Puffs ity of mcg/actuati 00:00: every 6 [place] as on inhaler 00 (six) Medical hours as Branch needed for Wheezing or Shortness of Breath. Fluticasone 2019-2021- No [id number] 1{puff} Inhale 1 [facility] -Salmeterol 2-17 08-31 Puff every i ty of (ADVAIR 00:00: 00:00 12 [place] DISKUS) 00 :00 (twelve) Medical 500-50 hours. Branch mcg/dose inhalation disk Fluticasone 2019-07- No [id number] 1{puff} Inhale 1 [facility] -Salmeterol 2-17 08-31 Puff every i ty of (ADVAIR 00:00: 00:00 12 [place] DISKUS) 00 :00 (twelve) Medical 500-50 hours. Branch mcg/dose inhalation disk leflunomide 2019-07 Yes 20mg Take 20 mg [facility] 20 mg 2-09 by mouth ity of tablet 00:00: daily. [place] [address] Medical Branch leflunomide 2019- Yes 20mg Take 20 mg [facility] 20 mg 2-09 by mouth ity of tablet 00:00: daily. [place] [address] Medical Branch leflunomide 2020- Yes 20mg Take 20 mg [facility] 20 mg 2-09 by mouth ity of tablet 00:00: daily. [place] [address] Medical Branch leflunomide 2020- Yes 20mg Take 20 mg [facility] 20 mg 2-09 by mouth ity of tablet 00:00: daily. [place] [address] Medical Branch leflunomide 2019- Yes 20mg Take 20 mg [facility] 20 mg 2-09 by mouth ity of tablet 00:00: daily. [place] [address] Medical Branch leflunomide 2020- Yes 20mg Take 20 mg [facility] 20 mg 2-09 by mouth ity of tablet 00:00: daily. [place] [address] Medical Branch leflunomide 2020- Yes 20mg Take 20 mg [facility] 20 mg 2-09 by mouth ity of tablet 00:00: daily. [place] [address] Medical Branch leflunomide 2020-1 Yes 20mg Take 20 mg [facility] 20 mg 2-09 by mouth ity of tablet 00:00: daily. [place] [address] Medical Branch leflunomide 2020- Yes 20mg Take 20 mg [facility] 20 mg 2-09 by mouth ity of tablet 00:00: daily. [facility] leflunomide 2019-07 Yes 20mg Take 20 mg Univers 20 mg 2-09 by mouth ity of tablet 00:00: daily. [facility] leflunomide 2019-07 Yes 20mg Take 20 mg Univers 20 mg 2-09 by mouth ity of tablet 00:00: daily. [facility] leflunomide 2019-07 Yes 20mg Take 20 mg Univers 20 mg 2-09 by mouth ity of tablet 00:00: daily. [facility] leflunomide 2019-07 Yes 20mg Take 20 mg Univers 20 mg 2-09 by mouth ity of tablet 00:00: daily. [facility] leflunomide 2019-07 Yes 20mg Take 20 mg Univers 20 mg 2-09 by mouth ity of tablet 00:00: daily. [facility] leflunomide 2019-07- No 20mg Take 20 mg Univers 20 mg 08-19 by mouth ity of tablet 00:00: 00:00 daily. [place] 00 : [facility] leflunomide 2019-07- No 20mg Take 20 mg Univers 20 mg 08-19 by mouth ity of tablet 00:00: 00:00 daily. [place] 00 :00 [facility] zaleplon 10 2019-07- No 10mg Take 10 mg Univers mg capsule 08-14 by mouth 2 it y of 00:00: 00:00 (two) [place] 00 :00 times Medical daily. Branch cyanocobala 2019-07- No [id number] 1000ug 1 mL by Univers min 1,000 1-25 06-28 Intramuscu ity of mcg/mL 00:00: 00:00 lar route [place] injection 00 :00 once every Medi tee month. Branch albuterol 2019-07 Yes 2.5mg Inhale 3 Uni vers 2.5 mg /3 1-19 mL every 6 ity of mL (0.083 00:00: (six) [place] %) 00 hours as Medical nebulizer needed for Bran ch solution Wheezing or Shortness of Breath. R06.02, R06.2 Nebulizer & 2019-07 Yes Use as Univ ers Compressor 1-19 directed ity o f For Neb 00:00: [place] [facility] Medical Branch sodium 2019-07 Yes [id number] 4mL Inhale 4 Un antonio chloride 3 1-19 mL 2 (two) ity of % nebulizer 00:00: times [place] solution 00 daily. Medical Branch albuterol 2019- Yes 2.5mg Inhale 3 Uni vers 2.5 mg /3 1-19 mL every 6 ity of mL (0.083 00:00: (six) [place] %) 00 hours as Medical nebulizer needed for Bran ch solution Wheezing or Shortness of Breath. R06.02, R06.2 Nebulizer & 2019- Yes Use as Univ ers Compressor 1-19 directed ity o f For Neb 00:00: [place] [facility] sodium 2019- Yes [id number] 4mL Inhale 4 Un antonio chloride 3 1-19 mL 2 (two) ity of % nebulizer 00:00: times [place] solution 00 daily. Medical Branch albuterol 2019-07 Yes 2.5mg Inhale 3 Uni vers 2.5 mg /3 1-19 mL every 6 ity of mL (0.083 00:00: (six) [place] %) 00 hours as Medical nebulizer needed for Bran ch solution Wheezing or Shortness of Breath. R06.02, R06.2 Nebulizer & 2019-07 Yes Use as Univ ers Compressor 1-19 directed ity o f For Neb 00:00: [place] [facility] sodium 2019- Yes [id number] 4mL Inhale 4 Un anton[place] chloride 3 1-19 mL 2 (two) ity of % nebulizer 00:00: times [place] solution 00 daily. Medical Branch albuterol 2019- Yes 2.5mg Inhale 3 Uni vers 2.5 mg /3 1-19 mL every 6 ity of mL (0.083 00:00: (six) [place] %) 00 hours as Medical nebulizer needed for Bran ch solution Wheezing or Shortness of Breath. R06.02, R06.2 Nebulizer & 2019-07 Yes Use as Univ ers Compressor 1-19 directed ity o f For Neb 00:00: [place] [facility] sodium 2019- Yes [id number] 4mL Inhale 4 Un anton[place] chloride 3 1-19 mL 2 (two) ity of % nebulizer 00:00: times [place] solution 00 daily. Medical Branch albuterol 2019- Yes 2.5mg Inhale 3 Uni vers 2.5 mg /3 1-19 mL every 6 ity of mL (0.083 00:00: (six) [place] %) 00 hours as Medical nebulizer needed for Bran ch solution Wheezing or Shortness of Breath. R06.02, R06.2 Nebulizer & 2019- Yes Use as Univ ers Compressor 1-19 directed ity o f For Neb 00:00: [place] [facility] 00 Medical Branch sodium 2019- Yes [id number] 4mL Inhale 4 Un antonio chloride 3 1-19 mL 2 (two) ity of % nebulizer 00:00: times [place] solution 00 daily. Medical Branch albuterol 2019-07 Yes 2.5mg Inhale 3 Uni vers 2.5 mg /3 1-19 mL every 6 ity of mL (0.083 00:00: (six) [place] %) 00 hours as Medical nebulizer needed for Bran ch solution Wheezing or Shortness of Breath. R06.02, R06.2 Nebulizer & 2019-07 Yes Use as Univ ers Compressor 1-19 directed ity o f For Neb 00:00: [place] [facility] sodium 2019- Yes [id number] 4mL Inhale 4 Un [place] chloride 3 1-19 mL 2 (two) ity of % nebulizer 00:00: times [place] solution 00 daily. Medical Branch albuterol 2019- Yes 2.5mg Inhale 3 Uni vers 2.5 mg /3 1-19 mL every 6 ity of mL (0.083 00:00: (six) [place] %) 00 hours as Medical nebulizer needed for Bran ch solution Wheezing or Shortness of Breath. R06.02, R06.2 Nebulizer & 2019- Yes Use as Univ ers Compressor 1-19 directed ity o f For Neb 00:00: [place] [facility] 00 Medical Branch sodium 2019- Yes [id number] 4mL Inhale 4 Un an[place] chloride 3 1-19 mL 2 (two) ity of % nebulizer 00:00: times [place] solution 00 daily. Medical Branch albuterol 2019-07 Yes 2.5mg Inhale 3 Uni vers 2.5 mg /3 1-19 mL every 6 ity of mL (0.083 00:00: (six) [place] %) 00 hours as Medical nebulizer needed for Bran ch solution Wheezing or Shortness of Breath. R06.02, R06.2 Nebulizer & 2019- Yes Use as Univ ers Compressor 1-19 directed ity o f For Neb 00:00: [place] [facility] sodium 2019- Yes [id number] 4mL Inhale 4 Un [place] chloride 3 1-19 mL 2 (two) ity of % nebulizer 00:00: times [place] solution 00 daily. Medical Branch albuterol 2019- Yes 2.5mg Inhale 3 Uni vers 2.5 mg /3 1-19 mL every 6 ity of mL (0.083 00:00: (six) [place] %) 00 hours as Medical nebulizer needed for Bran ch solution Wheezing or Shortness of Breath. R06.02, R06.2 Nebulizer & 2019-07 Yes Use as Univ ers Compressor 1-19 directed ity o f For Neb 00:00: [place] [facility] sodium 2019- Yes [id number] 4mL Inhale 4 Un an[place] chloride 3 1-19 mL 2 (two) ity of % nebulizer 00:00: times [place] solution 00 daily. Medical Branch albuterol 2019-07 Yes 2.5mg Inhale 3 Uni vers 2.5 mg /3 1-19 mL every 6 ity of mL (0.083 00:00: (six) [place] %) 00 hours as Medical nebulizer needed for Bran ch solution Wheezing or Shortness of Breath. R06.02, R06.2 Nebulizer & 2019- Yes Use as Univ ers Compressor 1-19 directed ity o f For Neb 00:00: [place] [facility] sodium 2019- Yes [id number] 4mL Inhale 4 Un an[place] chloride 3 1-19 mL 2 (two) ity of % nebulizer 00:00: times [place] solution 00 daily. Medical Branch albuterol 2019-07 Yes 2.5mg Inhale 3 Uni vers 2.5 mg /3 1-19 mL every 6 ity of mL (0.083 00:00: (six) [place] %) 00 hours as Medical nebulizer needed for Bran ch solution Wheezing or Shortness of Breath. R06.02, R06.2 Nebulizer & 2019- Yes Use as Univ ers Compressor 1-19 directed ity o f For Neb 00:00: [place] [facility] 00 Medical Branch sodium 2019- Yes [id number] 4mL Inhale 4 Un [place] chloride 3 1-19 mL 2 (two) ity of % nebulizer 00:00: times [place] solution 00 daily. Medical Branch albuterol 2019- Yes 2.5mg Inhale 3 Uni vers 2.5 mg /3 1-19 mL every 6 ity of mL (0.083 00:00: (six) [place] %) 00 hours as Medical nebulizer needed for Bran ch solution Wheezing or Shortness of Breath. R06.02, R06.2 Nebulizer & 2019- Yes Use as Univ ers Compressor 1-19 directed ity o f For Neb 00:00: [place] [facility] sodium 2019- Yes [id number] 4mL Inhale 4 Un [place] chloride 3 1-19 mL 2 (two) ity of % nebulizer 00:00: times [place] solution 00 daily. Medical Branch albuterol 2019-07 Yes 2.5mg Inhale 3 Uni vers 2.5 mg /3 1-19 mL every 6 ity of mL (0.083 00:00: (six) [place] %) 00 hours as Medical nebulizer needed for Bran ch solution Wheezing or Shortness of Breath. R06.02, R06.2 Nebulizer & 2019-07 Yes Use as Univ ers Compressor 1-19 directed ity o f For Neb 00:00: [place] [facility] sodium 2019- Yes [id number] 4mL Inhale 4 Un [place] chloride 3 1-19 mL 2 (two) ity of % nebulizer 00:00: times [place] solution 00 daily. Medical Branch albuterol 2019- Yes 2.5mg Inhale 3 Uni vers 2.5 mg /3 1-19 mL every 6 ity of mL (0.083 00:00: (six) [place] %) 00 hours as Medical nebulizer needed for Bran ch solution Wheezing or Shortness of Breath. R06.02, R06.2 Nebulizer & 2019-07 Yes Use as Univ ers Compressor 1-19 directed ity o f For Neb 00:00: [place] [facility] sodium 2019- Yes [id number] 4mL Inhale 4 Un an[place] chloride 3 1-19 mL 2 (two) ity of % nebulizer 00:00: times [place] solution 00 daily. Medical Branch albuterol 2019- Yes 2.5mg Inhale 3 Uni vers 2.5 mg /3 1-19 mL every 6 ity of mL (0.083 00:00: (six) [place] %) 00 hours as Medical nebulizer needed for Bran ch solution Wheezing or Shortness of Breath. R06.02, R06.2 Nebulizer & 2019- Yes Use as Univ ers Compressor 1-19 directed ity o f For Neb 00:00: [place] [facility] 00 Medical Branch sodium 2019- Yes [id number] 4mL Inhale 4 Un [place] chloride 3 1-19 mL 2 (two) ity of % nebulizer 00:00: times [place] solution 00 daily. Medical Branch albuterol 2019-07 Yes 2.5mg Inhale 3 Uni vers 2.5 mg /3 1-19 mL every 6 ity of mL (0.083 00:00: (six) [place] %) 00 hours as Medical nebulizer needed for Bran ch solution Wheezing or Shortness of Breath. R06.02, R06.2 Nebulizer & 2019-07 Yes Use as Univ ers Compressor 1-19 directed ity o f For Neb 00:00: [place] [facility] sodium 2019- Yes [id number] 4mL Inhale 4 Un anton[place] chloride 3 1-19 mL 2 (two) ity of % nebulizer 00:00: times [place] solution 00 daily. Medical Branch albuterol 2019- Yes 2.5mg Inhale 3 Uni vers 2.5 mg /3 1-19 mL every 6 ity of mL (0.083 00:00: (six) [place] %) 00 hours as Medical nebulizer needed for Bran ch solution Wheezing or Shortness of Breath. R06.02, R06.2 Nebulizer & 2019- Yes Use as Univ ers Compressor 1-19 directed ity o f For Neb 00:00: [place] [facility] 00 Medical Branch sodium 2019- Yes [id number] 4mL Inhale 4 Un anton[place] chloride 3 1-19 mL 2 (two) ity of % nebulizer 00:00: times [place] solution 00 daily. Medical Branch albuterol 2019-07 Yes 2.5mg Inhale 3 Uni vers 2.5 mg /3 1-19 mL every 6 ity of mL (0.083 00:00: (six) [place] %) 00 hours as Medical nebulizer needed for Bran ch solution Wheezing or Shortness of Breath. R06.02, R06.2 Nebulizer & 2019- Yes Use as Univ ers Compressor 1-19 directed ity o f For Neb 00:00: [place] [facility] sodium 2019- Yes [id number] 4mL Inhale 4 Un an[place] chloride 3 1-19 mL 2 (two) ity of % nebulizer 00:00: times [place] solution 00 daily. Medical Branch albuterol 2019- Yes 2.5mg Inhale 3 Uni vers 2.5 mg /3 1-19 mL every 6 ity of mL (0.083 00:00: (six) [place] %) 00 hours as Medical nebulizer needed for Bran ch solution Wheezing or Shortness of Breath. R06.02, R06.2 Nebulizer & 2019-07 Yes Use as Univ ers Compressor 1-19 directed ity o f For Neb 00:00: [place] [facility] sodium 2019- Yes [id number] 4mL Inhale 4 Un anton[place] chloride 3 1-19 mL 2 (two) ity of % nebulizer 00:00: times [place] solution 00 daily. Medical Branch albuterol 2019-07 Yes 2.5mg Inhale 3 Uni vers 2.5 mg /3 1-19 mL every 6 ity of mL (0.083 00:00: (six) [place] %) 00 hours as Medical nebulizer needed for Bran ch solution Wheezing or Shortness of Breath. R06.02, R06.2 Nebulizer & 2019- Yes Use as Univ ers Compressor 1-19 directed ity o f For Neb 00:00: [place] [facility] sodium 2019- Yes [id number] 4mL Inhale 4 Un antonio chloride 3 1-19 mL 2 (two) ity of % nebulizer 00:00: times [place] solution 00 daily. Medical Branch albuterol 2019-07 Yes 2.5mg Inhale 3 Uni vers 2.5 mg /3 1-19 mL every 6 ity of mL (0.083 00:00: (six) [place] %) 00 hours as Medical nebulizer needed for Bran ch solution Wheezing or Shortness of Breath. R06.02, R06.2 Nebulizer & 2019- Yes Use as Univ ers Compressor 1-19 directed ity o f For Neb 00:00: [place] [facility] 00 Medical Branch sodium 2019- Yes [id number] 4mL Inhale 4 Un [place] chloride 3 1-19 mL 2 (two) ity of % nebulizer 00:00: times [place] solution 00 daily. Medical Branch albuterol 2019- Yes 2.5mg Inhale 3 Uni vers 2.5 mg /3 1-19 mL every 6 ity of mL (0.083 00:00: (six) [place] %) 00 hours as Medical nebulizer needed for Bran ch solution Wheezing or Shortness of Breath. R06.02, R06.2 Nebulizer & 2019- Yes Use as Univ ers Compressor 1-19 directed ity o f For Neb 00:00: [place] [facility] sodium 2019- Yes [id number] 4mL Inhale 4 Un antonio chloride 3 1-19 mL 2 (two) ity of % nebulizer 00:00: times [place] solution 00 daily. [facility] albuterol 2019-07 Yes 2.5mg Inhale 3 Uni vers 2.5 mg /3 1-19 mL every 6 ity of mL (0.083 00:00: (six) [place] %) 00 hours as Medical nebulizer needed for Bran ch solution Wheezing or Shortness of Breath. R06.02, R06.2 Nebulizer & 2019-07 Yes Use as [facility] ers Compressor 1-19 directed ity o f For Neb 00:00: [place] [facility] sodium 2019- Yes [id number] 4mL Inhale 4 Un antonio chloride 3 1-19 mL 2 (two) ity of % nebulizer 00:00: times [place] solution 00 daily. [facility] albuterol 2019- Yes 2.5mg Inhale 3 Uni vers 2.5 mg /3 1-19 mL every 6 ity of mL (0.083 00:00: (six) [place] %) 00 hours as Medical nebulizer needed for Bran ch solution Wheezing or Shortness of Breath. R06.02, R06.2 Nebulizer & 2019-07 Yes Use as [facility] ers Compressor 1-19 directed ity o f For Neb 00:00: [place] [facility] sodium 2019- Yes [id number] 4mL Inhale 4 Un antonio chloride 3 1-19 mL 2 (two) ity of % nebulizer 00:00: times [place] solution 00 daily. [facility] albuterol 2019- Yes 2.5mg Inhale 3 Uni vers 2.5 mg /3 1-19 mL every 6 ity of mL (0.083 00:00: (six) [place] %) 00 hours as Medical nebulizer needed for Bran ch solution Wheezing or Shortness of Breath. R06.02, R06.2 Nebulizer & 2019- Yes Use as [facility] ers Compressor 1-19 directed ity o f For Neb 00:00: [place] [facility] 00 [facility] sodium 2019- Yes [id number] 4mL Inhale 4 Un antonio chloride 3 1-19 mL 2 (two) ity of % nebulizer 00:00: times [place] solution 00 daily. [facility] albuterol 2019-07 Yes 2.5mg Inhale 3 Uni vers 2.5 mg /3 1-19 mL every 6 ity of mL (0.083 00:00: (six) [place] %) 00 hours as Medical nebulizer needed for Bran ch solution Wheezing or Shortness of Breath. R06.02, R06.2 Nebulizer & 2019-07 Yes Use as [facility] ers Compressor 1-19 directed ity o f For Neb 00:00: [place] [facility] sodium 2019- Yes [id number] 4mL Inhale 4 Un antonio chloride 3 1-19 mL 2 (two) ity of % nebulizer 00:00: times [place] solution 00 daily. [facility] albuterol 2019- Yes 2.5mg Inhale 3 Uni vers 2.5 mg /3 1-19 mL every 6 ity of mL (0.083 00:00: (six) [place] %) 00 hours as Medical nebulizer needed for Bran ch solution Wheezing or Shortness of Breath. R06.02, R06.2 Nebulizer & 2019- Yes Use as [facility] ers Compressor 1-19 directed ity o f For Neb 00:00: [place] [facility] 00 [facility] sodium 2019- Yes [id number] 4mL Inhale 4 Un antonio chloride 3 1-19 mL 2 (two) ity of % nebulizer 00:00: times [place] solution 00 daily. [facility] albuterol 2019-07 Yes 2.5mg Inhale 3 Uni vers 2.5 mg /3 1-19 mL every 6 ity of mL (0.083 00:00: (six) [place] %) 00 hours as Medical nebulizer needed for Bran ch solution Wheezing or Shortness of Breath. R06.02, R06.2 Nebulizer & 2019- Yes Use as [facility] ers Compressor 1-19 directed ity o f For Neb 00:00: [place] [facility] sodium 2019- Yes [id number] 4mL Inhale 4 Un antonio chloride 3 1-19 mL 2 (two) ity of % nebulizer 00:00: times [place] solution 00 daily. [facility] albuterol 2019- Yes 2.5mg Inhale 3 Uni vers 2.5 mg /3 1-19 mL every 6 ity of mL (0.083 00:00: (six) [place] %) 00 hours as Medical nebulizer needed for Bran ch solution Wheezing or Shortness of Breath. R06.02, R06.2 Nebulizer & 2019-07 Yes Use as [facility] ers Compressor 1-19 directed ity o f For Neb 00:00: [place] [facility] sodium 2019- Yes [id number] 4mL Inhale 4 Un antonio chloride 3 1-19 mL 2 (two) ity of % nebulizer 00:00: times [place] solution 00 daily. [facility] albuterol 2019-07 Yes 2.5mg Inhale 3 Uni vers 2.5 mg /3 1-19 mL every 6 ity of mL (0.083 00:00: (six) [place] %) 00 hours as Medical nebulizer needed for Bran ch solution Wheezing or Shortness of Breath. R06.02, R06.2 Nebulizer & 2019- Yes Use as [facility] ers Compressor 1-19 directed ity o f For Neb 00:00: [place] [facility] sodium 2019- Yes [id number] 4mL Inhale 4 Un antonio chloride 3 1-19 mL 2 (two) ity of % nebulizer 00:00: times [place] solution 00 daily. [facility] albuterol 2019-07 Yes 2.5mg Inhale 3 Uni vers 2.5 mg /3 1-19 mL every 6 ity of mL (0.083 00:00: (six) [place] %) 00 hours as Medical nebulizer needed for Bran ch solution Wheezing or Shortness of Breath. R06.02, R06.2 Nebulizer & 2019- Yes Use as [facility] ers Compressor 1-19 directed ity o f For Neb 00:00: [place] [facility] 00 [facility] sodium 2019- Yes [id number] 4mL Inhale 4 Un antonio chloride 3 1-19 mL 2 (two) ity of % nebulizer 00:00: times [place] solution 00 daily. [facility] albuterol 2019- Yes 2.5mg Inhale 3 Uni vers 2.5 mg /3 1-19 mL every 6 ity of mL (0.083 00:00: (six) [place] %) 00 hours as Medical nebulizer needed for Bran ch solution Wheezing or Shortness of Breath. R06.02, R06.2 Nebulizer & 2019- Yes Use as [facility] ers Compressor 1-19 directed ity o f For Neb 00:00: [place] [facility] sodium 2019- Yes [id number] 4mL Inhale 4 Un antonio chloride 3 1-19 mL 2 (two) ity of % nebulizer 00:00: times [place] solution 00 daily. [facility] albuterol 2019-07 Yes 2.5mg Inhale 3 Uni vers 2.5 mg /3 1-19 mL every 6 ity of mL (0.083 00:00: (six) [place] %) 00 hours as Medical nebulizer needed for Bran ch solution Wheezing or Shortness of Breath. R06.02, R06.2 Nebulizer & 2019-07 Yes Use as [facility] ers Compressor 1-19 directed ity o f For Neb 00:00: [place] [facility] sodium 2019- Yes [id number] 4mL Inhale 4 Un antonio chloride 3 1-19 mL 2 (two) ity of % nebulizer 00:00: times [place] solution 00 daily. [facility] albuterol 2019- Yes 2.5mg Inhale 3 Uni vers 2.5 mg /3 1-19 mL every 6 ity of mL (0.083 00:00: (six) [place] %) 00 hours as Medical nebulizer needed for Bran ch solution Wheezing or Shortness of Breath. R06.02, R06.2 Nebulizer & 2019-07 Yes Use as [facility] ers Compressor 1-19 directed ity o f For Neb 00:00: [place] [facility] sodium 2019- Yes [id number] 4mL Inhale 4 Un antonio chloride 3 1-19 mL 2 (two) ity of % nebulizer 00:00: times [place] solution 00 daily. [facility] albuterol 2019- Yes 2.5mg Inhale 3 Uni vers 2.5 mg /3 1-19 mL every 6 ity of mL (0.083 00:00: (six) [place] %) 00 hours as Medical nebulizer needed for Bran ch solution Wheezing or Shortness of Breath. R06.02, R06.2 Nebulizer & 2019- Yes Use as [facility] ers Compressor 1-19 directed ity o f For Neb 00:00: [place] [facility] 00 [facility] sodium 2019- Yes [id number] 4mL Inhale 4 Un antonio chloride 3 1-19 mL 2 (two) ity of % nebulizer 00:00: times [place] solution 00 daily. [facility] albuterol 2019-07 Yes 2.5mg Inhale 3 Uni vers 2.5 mg /3 1-19 mL every 6 ity of mL (0.083 00:00: (six) [place] %) 00 hours as Medical nebulizer needed for Bran ch solution Wheezing or Shortness of Breath. R06.02, R06.2 Nebulizer & 2019-07 Yes Use as [facility] ers Compressor 1-19 directed ity o f For Neb 00:00: [place] [facility] sodium 2019- Yes [id number] 4mL Inhale 4 Un antonio chloride 3 1-19 mL 2 (two) ity of % nebulizer 00:00: times [place] solution 00 daily. [facility] albuterol 2019- Yes 2.5mg Inhale 3 Uni vers 2.5 mg /3 1-19 mL every 6 ity of mL (0.083 00:00: (six) [place] %) 00 hours as Medical nebulizer needed for Bran ch solution Wheezing or Shortness of Breath. R06.02, R06.2 Nebulizer & 2019- Yes Use as [facility] ers Compressor 1-19 directed ity o f For Neb 00:00: [place] [facility] 00 [facility] sodium 2019- Yes [id number] 4mL Inhale 4 Un antonio chloride 3 1-19 mL 2 (two) ity of % nebulizer 00:00: times [place] solution 00 daily. [facility] albuterol 2019-07 Yes 2.5mg Inhale 3 Uni vers 2.5 mg /3 1-19 mL every 6 ity of mL (0.083 00:00: (six) [place] %) 00 hours as Medical nebulizer needed for Bran ch solution Wheezing or Shortness of Breath. R06.02, R06.2 Nebulizer & 2019- Yes Use as [facility] ers Compressor 1-19 directed ity o f For Neb 00:00: [place] [facility] sodium 2019- Yes [id number] 4mL Inhale 4 Un antonio chloride 3 1-19 mL 2 (two) ity of % nebulizer 00:00: times [place] solution 00 daily. [facility] albuterol 2019- Yes 2.5mg Inhale 3 Uni vers 2.5 mg /3 1-19 mL every 6 ity of mL (0.083 00:00: (six) [place] %) 00 hours as Medical nebulizer needed for Bran ch solution Wheezing or Shortness of Breath. R06.02, R06.2 Nebulizer & 2019-07 Yes Use as [facility] ers Compressor 1-19 directed ity o f For Neb 00:00: [place] [facility] sodium 2019- Yes [id number] 4mL Inhale 4 Un antonio chloride 3 1-19 mL 2 (two) ity of % nebulizer 00:00: times [place] solution 00 daily. [facility] albuterol 2019-07 Yes 2.5mg Inhale 3 Uni vers 2.5 mg /3 1-19 mL every 6 ity of mL (0.083 00:00: (six) [place] %) 00 hours as Medical nebulizer needed for Bran ch solution Wheezing or Shortness of Breath. R06.02, R06.2 Nebulizer & 2019- Yes Use as [facility] ers Compressor 1-19 directed ity o f For Neb 00:00: [place] [facility] sodium 2019- Yes [id number] 4mL Inhale 4 Un antonio chloride 3 1-19 mL 2 (two) ity of % nebulizer 00:00: times [place] solution 00 daily. [facility] albuterol 2019-07 Yes 2.5mg Inhale 3 Uni vers 2.5 mg /3 1-19 mL every 6 ity of mL (0.083 00:00: (six) [place] %) 00 hours as Medical nebulizer needed for Bran ch solution Wheezing or Shortness of Breath. R06.02, R06.2 Nebulizer & 2019- Yes Use as [facility] ers Compressor 1-19 directed ity o f For Neb 00:00: [place] [facility] 00 [facility] sodium 2019- Yes [id number] 4mL Inhale 4 Un antonio chloride 3 1-19 mL 2 (two) ity of % nebulizer 00:00: times [place] solution 00 daily. [facility] albuterol 2019- Yes 2.5mg Inhale 3 Uni vers 2.5 mg /3 1-19 mL every 6 ity of mL (0.083 00:00: (six) [place] %) 00 hours as Medical nebulizer needed for Bran ch solution Wheezing or Shortness of Breath. R06.02, R06.2 Nebulizer & 2019- Yes Use as [facility] ers Compressor 1-19 directed ity o f For Neb 00:00: [place] [facility] sodium 2019- Yes [id number] 4mL Inhale 4 Un antonio chloride 3 1-19 mL 2 (two) ity of % nebulizer 00:00: times [place] solution 00 daily. [facility] albuterol 2019-07 Yes 2.5mg Inhale 3 Uni vers 2.5 mg /3 1-19 mL every 6 ity of mL (0.083 00:00: (six) [place] %) 00 hours as Medical nebulizer needed for Bran ch solution Wheezing or Shortness of Breath. R06.02, R06.2 Nebulizer & 2019-07 Yes Use as [facility] ers Compressor 1-19 directed ity o f For Neb 00:00: [place] [facility] sodium 2019- Yes [id number] 4mL Inhale 4 Un antonio chloride 3 1-19 mL 2 (two) ity of % nebulizer 00:00: times [place] solution 00 daily. [facility] albuterol 2019- Yes 2.5mg Inhale 3 Uni vers 2.5 mg /3 1-19 mL every 6 ity of mL (0.083 00:00: (six) [place] %) 00 hours as Medical nebulizer needed for Bran ch solution Wheezing or Shortness of Breath. R06.02, R06.2 Nebulizer & 2019-07 Yes Use as [facility] ers Compressor 1-19 directed ity o f For Neb 00:00: [place] [facility] sodium 2019- Yes [id number] 4mL Inhale 4 Un antonio chloride 3 1-19 mL 2 (two) ity of % nebulizer 00:00: times [place] solution 00 daily. [facility] albuterol 2019- Yes 2.5mg Inhale 3 Uni vers 2.5 mg /3 1-19 mL every 6 ity of mL (0.083 00:00: (six) [place] %) 00 hours as Medical nebulizer needed for Bran ch solution Wheezing or Shortness of Breath. R06.02, R06.2 Nebulizer & 2019- Yes Use as [facility] ers Compressor 1-19 directed ity o f For Neb 00:00: [place] [facility] 00 [facility] sodium 2019- Yes [id number] 4mL Inhale 4 Un antonio chloride 3 1-19 mL 2 (two) ity of % nebulizer 00:00: times [place] solution 00 daily. [facility] albuterol 2019-07 Yes 2.5mg Inhale 3 Uni vers 2.5 mg /3 1-19 mL every 6 ity of mL (0.083 00:00: (six) [place] %) 00 hours as Medical nebulizer needed for Bran ch solution Wheezing or Shortness of Breath. R06.02, R06.2 Nebulizer & 2019-07 Yes Use as [facility] ers Compressor 1-19 directed ity o f For Neb 00:00: [place] [facility] sodium 2019- Yes [id number] 4mL Inhale 4 Un antonio chloride 3 1-19 mL 2 (two) ity of % nebulizer 00:00: times [place] solution 00 daily. [facility] albuterol 2019- Yes 2.5mg Inhale 3 Uni vers 2.5 mg /3 1-19 mL every 6 ity of mL (0.083 00:00: (six) [place] %) 00 hours as Medical nebulizer needed for Bran ch solution Wheezing or Shortness of Breath. R06.02, R06.2 Nebulizer & 2019- Yes Use as [facility] ers Compressor 1-19 directed ity o f For Neb 00:00: [place] [facility] 00 [facility] sodium 2019- Yes [id number] 4mL Inhale 4 Un antonio chloride 3 1-19 mL 2 (two) ity of % nebulizer 00:00: times [place] solution 00 daily. [facility] albuterol 2019-07 Yes 2.5mg Inhale 3 Uni vers 2.5 mg /3 1-19 mL every 6 ity of mL (0.083 00:00: (six) [place] %) 00 hours as Medical nebulizer needed for Bran ch solution Wheezing or Shortness of Breath. R06.02, R06.2 Nebulizer & 2019- Yes Use as [facility] ers Compressor 1-19 directed ity o f For Neb 00:00: [place] [facility] sodium 2019- Yes [id number] 4mL Inhale 4 Un antonio chloride 3 1-19 mL 2 (two) ity of % nebulizer 00:00: times [place] solution 00 daily. [facility] albuterol 2019- Yes 2.5mg Inhale 3 Uni vers 2.5 mg /3 1-19 mL every 6 ity of mL (0.083 00:00: (six) [place] %) 00 hours as Medical nebulizer needed for Bran ch solution Wheezing or Shortness of Breath. R06.02, R06.2 Nebulizer & 2019-07 Yes Use as [facility] ers Compressor 1-19 directed ity o f For Neb 00:00: [place] [facility] sodium 2019- Yes [id number] 4mL Inhale 4 Un antonio chloride 3 1-19 mL 2 (two) ity of % nebulizer 00:00: times [place] solution 00 daily. [facility] albuterol 2019-07 Yes 2.5mg Inhale 3 Uni vers 2.5 mg /3 1-19 mL every 6 ity of mL (0.083 00:00: (six) [place] %) 00 hours as Medical nebulizer needed for Bran ch solution Wheezing or Shortness of Breath. R06.02, R06.2 Nebulizer & 2019- Yes Use as [facility] ers Compressor 1-19 directed ity o f For Neb 00:00: [place] [facility] sodium 2019- Yes [id number] 4mL Inhale 4 Un antonio chloride 3 1-19 mL 2 (two) ity of % nebulizer 00:00: times [place] solution 00 daily. [facility] albuterol 2019-07 Yes 2.5mg Inhale 3 Uni vers 2.5 mg /3 1-19 mL every 6 ity of mL (0.083 00:00: (six) [place] %) 00 hours as Medical nebulizer needed for Bran ch solution Wheezing or Shortness of Breath. R06.02, R06.2 Nebulizer & 2019- Yes Use as [facility] ers Compressor 1-19 directed ity o f For Neb 00:00: [place] [facility] 00 [facility] sodium 2019- Yes [id number] 4mL Inhale 4 Un antonio chloride 3 1-19 mL 2 (two) ity of % nebulizer 00:00: times [place] solution 00 daily. [facility] albuterol 2019- Yes 2.5mg Inhale 3 Uni vers 2.5 mg /3 1-19 mL every 6 ity of mL (0.083 00:00: (six) [place] %) 00 hours as Medical nebulizer needed for Bran ch solution Wheezing or Shortness of Breath. R06.02, R06.2 Nebulizer & 2019- Yes Use as [facility] ers Compressor 1-19 directed ity o f For Neb 00:00: [place] [facility] sodium 2019- Yes [id number] 4mL Inhale 4 Un antonio chloride 3 1-19 mL 2 (two) ity of % nebulizer 00:00: times [place] solution 00 daily. [facility] albuterol 2019-07 Yes 2.5mg Inhale 3 Uni vers 2.5 mg /3 1-19 mL every 6 ity of mL (0.083 00:00: (six) [place] %) 00 hours as Medical nebulizer needed for Bran ch solution Wheezing or Shortness of Breath. R06.02, R06.2 Nebulizer & 2019-07 Yes Use as [facility] ers Compressor 1-19 directed ity o f For Neb 00:00: [place] [facility] sodium 2019- Yes [id number] 4mL Inhale 4 Un antonio chloride 3 1-19 mL 2 (two) ity of % nebulizer 00:00: times [place] solution 00 daily. [facility] albuterol 2019- Yes 2.5mg Inhale 3 Uni vers 2.5 mg /3 1-19 mL every 6 ity of mL (0.083 00:00: (six) [place] %) 00 hours as Medical nebulizer needed for Bran ch solution Wheezing or Shortness of Breath. R06.02, R06.2 Nebulizer & 2019-07 Yes Use as [facility] ers Compressor 1-19 directed ity o f For Neb 00:00: [place] [facility] sodium 2019- Yes [id number] 4mL Inhale 4 Un antonio chloride 3 1-19 mL 2 (two) ity of % nebulizer 00:00: times [place] solution 00 daily. [facility] albuterol 2019- Yes 2.5mg Inhale 3 Uni vers 2.5 mg /3 1-19 mL every 6 ity of mL (0.083 00:00: (six) [place] %) 00 hours as Medical nebulizer needed for Bran ch solution Wheezing or Shortness of Breath. R06.02, R06.2 Nebulizer & 2019- Yes Use as [facility] ers Compressor 1-19 directed ity o f For Neb 00:00: [place] [facility] 00 [facility] sodium 2019- Yes [id number] 4mL Inhale 4 Un antonio chloride 3 1-19 mL 2 (two) ity of % nebulizer 00:00: times [place] solution 00 daily. [facility] albuterol 2019-07 Yes 2.5mg Inhale 3 Uni vers 2.5 mg /3 1-19 mL every 6 ity of mL (0.083 00:00: (six) [place] %) 00 hours as Medical nebulizer needed for Bran ch solution Wheezing or Shortness of Breath. R06.02, R06.2 Nebulizer & 2019-07 Yes Use as [facility] ers Compressor 1-19 directed ity o f For Neb 00:00: [place] [facility] sodium 2019- Yes [id number] 4mL Inhale 4 Un antonio chloride 3 1-19 mL 2 (two) ity of % nebulizer 00:00: times [place] solution 00 daily. [facility] albuterol 2019- Yes 2.5mg Inhale 3 Uni vers 2.5 mg /3 1-19 mL every 6 ity of mL (0.083 00:00: (six) [place] %) 00 hours as Medical nebulizer needed for Bran ch solution Wheezing or Shortness of Breath. R06.02, R06.2 Nebulizer & 2019- Yes Use as [facility] ers Compressor 1-19 directed ity o f For Neb 00:00: [place] [facility] 00 [facility] sodium 2019- Yes [id number] 4mL Inhale 4 Un antonio chloride 3 1-19 mL 2 (two) ity of % nebulizer 00:00: times [place] solution 00 daily. [facility] albuterol 2019-07 Yes 2.5mg Inhale 3 Uni vers 2.5 mg /3 1-19 mL every 6 ity of mL (0.083 00:00: (six) [place] %) 00 hours as Medical nebulizer needed for Bran ch solution Wheezing or Shortness of Breath. R06.02, R06.2 Nebulizer & 2019- Yes Use as [facility] ers Compressor 1-19 directed ity o f For Neb 00:00: [place] [facility] sodium 2019- Yes [id number] 4mL Inhale 4 Un antonio chloride 3 1-19 mL 2 (two) ity of % nebulizer 00:00: times [place] solution 00 daily. [facility] albuterol 2019- Yes 2.5mg Inhale 3 Uni vers 2.5 mg /3 1-19 mL every 6 ity of mL (0.083 00:00: (six) [place] %) 00 hours as Medical nebulizer needed for Bran ch solution Wheezing or Shortness of Breath. R06.02, R06.2 Nebulizer & 2019-07 Yes Use as [facility] ers Compressor 1-19 directed ity o f For Neb 00:00: [place] [facility] sodium 2019- Yes [id number] 4mL Inhale 4 Un antonio chloride 3 1-19 mL 2 (two) ity of % nebulizer 00:00: times [place] solution 00 daily. [facility] albuterol 2019-07 Yes 2.5mg Inhale 3 Uni vers 2.5 mg /3 1-19 mL every 6 ity of mL (0.083 00:00: (six) [place] %) 00 hours as Medical nebulizer needed for Bran ch solution Wheezing or Shortness of Breath. R06.02, R06.2 Nebulizer & 2019- Yes Use as [facility] ers Compressor 1-19 directed ity o f For Neb 00:00: [place] [facility] sodium 2019- Yes [id number] 4mL Inhale 4 Un antonio chloride 3 1-19 mL 2 (two) ity of % nebulizer 00:00: times [place] solution 00 daily. [facility] albuterol 2019-07 Yes 2.5mg Inhale 3 Uni vers 2.5 mg /3 1-19 mL every 6 ity of mL (0.083 00:00: (six) [place] %) 00 hours as Medical nebulizer needed for Bran ch solution Wheezing or Shortness of Breath. R06.02, R06.2 Nebulizer & 2019- Yes Use as [facility] ers Compressor 1-19 directed ity o f For Neb 00:00: [place] [facility] 00 [facility] sodium 2019- Yes [id number] 4mL Inhale 4 Un antonio chloride 3 1-19 mL 2 (two) ity of % nebulizer 00:00: times [place] solution 00 daily. [facility] albuterol 2019- Yes 2.5mg Inhale 3 Uni vers 2.5 mg /3 1-19 mL every 6 ity of mL (0.083 00:00: (six) [place] %) 00 hours as Medical nebulizer needed for Bran ch solution Wheezing or Shortness of Breath. R06.02, R06.2 Nebulizer & 2019- Yes Use as [facility] ers Compressor 1-19 directed ity o f For Neb 00:00: [place] [facility] sodium 2019- Yes [id number] 4mL Inhale 4 Un antonio chloride 3 1-19 mL 2 (two) ity of % nebulizer 00:00: times [place] solution 00 daily. [facility] albuterol 2019-07 Yes 2.5mg Inhale 3 Uni vers 2.5 mg /3 1-19 mL every 6 ity of mL (0.083 00:00: (six) [place] %) 00 hours as Medical nebulizer needed for Bran ch solution Wheezing or Shortness of Breath. R06.02, R06.2 Nebulizer & 2019-07 Yes Use as [facility] ers Compressor 1-19 directed ity o f For Neb 00:00: [place] [facility] sodium 2019- Yes [id number] 4mL Inhale 4 Un antonio chloride 3 1-19 mL 2 (two) ity of % nebulizer 00:00: times [place] solution 00 daily. [facility] albuterol 2019- Yes 2.5mg Inhale 3 Uni vers 2.5 mg /3 1-19 mL every 6 ity of mL (0.083 00:00: (six) [place] %) 00 hours as Medical nebulizer needed for Bran ch solution Wheezing or Shortness of Breath. R06.02, R06.2 Nebulizer & 2019-07 Yes Use as [facility] ers Compressor 1-19 directed ity o f For Neb 00:00: [place] [facility] sodium 2019- Yes [id number] 4mL Inhale 4 Un antonio chloride 3 1-19 mL 2 (two) ity of % nebulizer 00:00: times [place] solution 00 daily. [facility] albuterol 2019- Yes 2.5mg Inhale 3 Uni vers 2.5 mg /3 1-19 mL every 6 ity of mL (0.083 00:00: (six) [place] %) 00 hours as Medical nebulizer needed for Bran ch solution Wheezing or Shortness of Breath. R06.02, R06.2 Nebulizer & 2019- Yes Use as [facility] Compressor 1-19 directed ity o f For Neb 00:00: [place] [facility] 00 [facility] sodium 2019- Yes [id number] 4mL Inhale 4 Un antonio chloride 3 1-19 mL 2 (two) ity of % nebulizer 00:00: times [place] solution 00 daily. [facility] albuterol 2019-07 Yes 2.5mg Inhale 3 Uni vers 2.5 mg /3 1-19 mL every 6 ity of mL (0.083 00:00: (six) [place] %) 00 hours as Medical nebulizer needed for Bran ch solution Wheezing or Shortness of Breath. R06.02, R06.2 Nebulizer & 2019-07 Yes Use as [facility] ers Compressor 1-19 directed ity o f For Neb 00:00: [place] [facility] sodium 2019- Yes [id number] 4mL Inhale 4 Un antonio chloride 3 1-19 mL 2 (two) ity of % nebulizer 00:00: times [place] solution 00 daily. [facility] albuterol 2019- Yes 2.5mg Inhale 3 Uni vers 2.5 mg /3 1-19 mL every 6 ity of mL (0.083 00:00: (six) [place] %) 00 hours as Medical nebulizer needed for Bran ch solution Wheezing or Shortness of Breath. R06.02, R06.2 Nebulizer & 2019- Yes Use as [facility] ers Compressor 1-19 directed ity o f For Neb 00:00: [place] [facility] 00 [facility] sodium 2019- Yes [id number] 4mL Inhale 4 Un antonio chloride 3 1-19 mL 2 (two) ity of % nebulizer 00:00: times [place] solution 00 daily. [facility] albuterol 2019-07 Yes 2.5mg Inhale 3 Uni vers 2.5 mg /3 1-19 mL every 6 ity of mL (0.083 00:00: (six) [place] %) 00 hours as Medical nebulizer needed for Bran ch solution Wheezing or Shortness of Breath. R06.02, R06.2 Nebulizer & 2019- Yes Use as [facility] ers Compressor 1-19 directed ity o f For Neb 00:00: [place] [facility] sodium 2019- Yes [id number] 4mL Inhale 4 Un antonio chloride 3 1-19 mL 2 (two) ity of % nebulizer 00:00: times [place] solution 00 daily. [facility] albuterol 2019- Yes 2.5mg Inhale 3 Uni vers 2.5 mg /3 1-19 mL every 6 ity of mL (0.083 00:00: (six) [place] %) 00 hours as Medical nebulizer needed for Bran ch solution Wheezing or Shortness of Breath. R06.02, R06.2 Nebulizer & 2019-07 Yes Use as [facility] ers Compressor 1-19 directed ity o f For Neb 00:00: [place] [facility] sodium 2019- Yes [id number] 4mL Inhale 4 Un antonio chloride 3 1-19 mL 2 (two) ity of % nebulizer 00:00: times [place] solution 00 daily. [facility] albuterol 2019-07 Yes 2.5mg Inhale 3 Uni vers 2.5 mg /3 1-19 mL every 6 ity of mL (0.083 00:00: (six) [place] %) 00 hours as Medical nebulizer needed for Bran ch solution Wheezing or Shortness of Breath. R06.02, R06.2 Nebulizer & 2019- Yes Use as [facility] ers Compressor 1-19 directed ity o f For Neb 00:00: [place] [facility] sodium 2019- Yes [id number] 4mL Inhale 4 Un antonio chloride 3 1-19 mL 2 (two) ity of % nebulizer 00:00: times [place] solution 00 daily. [facility] albuterol 2019-07 Yes 2.5mg Inhale 3 Uni vers 2.5 mg /3 1-19 mL every 6 ity of mL (0.083 00:00: (six) [place] %) 00 hours as Medical nebulizer needed for Bran ch solution Wheezing or Shortness of Breath. R06.02, R06.2 Nebulizer & 2019- Yes Use as [facility] ers Compressor 1-19 directed ity o f For Neb 00:00: [place] [facility] 00 [facility] sodium 2019- Yes [id number] 4mL Inhale 4 Un antonio chloride 3 1-19 mL 2 (two) ity of % nebulizer 00:00: times [place] solution 00 daily. [facility] albuterol 2019- Yes 2.5mg Inhale 3 Uni vers 2.5 mg /3 1-19 mL every 6 ity of mL (0.083 00:00: (six) [place] %) 00 hours as Medical nebulizer needed for Bran ch solution Wheezing or Shortness of Breath. R06.02, R06.2 Nebulizer & 2019- Yes Use as [facility] ers Compressor 1-19 directed ity o f For Neb 00:00: [place] [facility] sodium 2019- Yes [id number] 4mL Inhale 4 Un antonio chloride 3 1-19 mL 2 (two) ity of % nebulizer 00:00: times [place] solution 00 daily. [facility] albuterol 2019-07 Yes 2.5mg Inhale 3 Uni vers 2.5 mg /3 1-19 mL every 6 ity of mL (0.083 00:00: (six) [place] %) 00 hours as Medical nebulizer needed for Bran ch solution Wheezing or Shortness of Breath. R06.02, R06.2 Nebulizer & 2019-07 Yes Use as [facility] ers Compressor 1-19 directed ity o f For Neb 00:00: [place] [facility] sodium 2019- Yes [id number] 4mL Inhale 4 Un antonio chloride 3 1-19 mL 2 (two) ity of % nebulizer 00:00: times [place] solution 00 daily. [facility] albuterol 2019- Yes 2.5mg Inhale 3 Uni vers 2.5 mg /3 1-19 mL every 6 ity of mL (0.083 00:00: (six) [place] %) 00 hours as Medical nebulizer needed for Bran ch solution Wheezing or Shortness of Breath. R06.02, R06.2 Nebulizer & 2019-07 Yes Use as [facility] ers Compressor 1-19 directed ity o f For Neb 00:00: [place] [facility] sodium 2019- Yes [id number] 4mL Inhale 4 Un antonio chloride 3 1-19 mL 2 (two) ity of % nebulizer 00:00: times [place] solution 00 daily. [facility] albuterol 2019- Yes 2.5mg Inhale 3 Uni vers 2.5 mg /3 1-19 mL every 6 ity of mL (0.083 00:00: (six) [place] %) 00 hours as Medical nebulizer needed for Bran ch solution Wheezing or Shortness of Breath. R06.02, R06.2 Nebulizer & 2019- Yes Use as [facility] ers Compressor 1-19 directed ity o f For Neb 00:00: [place] [facility] 00 [facility] sodium 2019- Yes [id number] 4mL Inhale 4 Un antonio chloride 3 1-19 mL 2 (two) ity of % nebulizer 00:00: times [place] solution 00 daily. [facility] albuterol 2019-07 Yes 2.5mg Inhale 3 Uni vers 2.5 mg /3 1-19 mL every 6 ity of mL (0.083 00:00: (six) [place] %) 00 hours as Medical nebulizer needed for Bran ch solution Wheezing or Shortness of Breath. R06.02, R06.2 Nebulizer & 2019-07 Yes Use as [facility] ers Compressor 1-19 directed ity o f For Neb 00:00: [place] [facility] sodium 2019- Yes [id number] 4mL Inhale 4 Un antonio chloride 3 1-19 mL 2 (two) ity of % nebulizer 00:00: times [place] solution 00 daily. [facility] albuterol 2019- Yes 2.5mg Inhale 3 Uni vers 2.5 mg /3 1-19 mL every 6 ity of mL (0.083 00:00: (six) [place] %) 00 hours as Medical nebulizer needed for Bran ch solution Wheezing or Shortness of Breath. R06.02, R06.2 Nebulizer & 2019- Yes Use as [facility] ers Compressor 1-19 directed ity o f For Neb 00:00: [place] [facility] 00 [facility] sodium 2019- Yes [id number] 4mL Inhale 4 Un antonio chloride 3 1-19 mL 2 (two) ity of % nebulizer 00:00: times [place] solution 00 daily. [facility] albuterol 2019-07 Yes 2.5mg Inhale 3 Uni vers 2.5 mg /3 1-19 mL every 6 ity of mL (0.083 00:00: (six) [place] %) 00 hours as Medical nebulizer needed for Bran ch solution Wheezing or Shortness of Breath. R06.02, R06.2 Nebulizer & 2019- Yes Use as [facility] ers Compressor 1-19 directed ity o f For Neb 00:00: [place] [facility] sodium 2019- Yes [id number] 4mL Inhale 4 Un antonio chloride 3 1-19 mL 2 (two) ity of % nebulizer 00:00: times [place] solution 00 daily. [facility] albuterol 2019- Yes 2.5mg Inhale 3 Uni vers 2.5 mg /3 1-19 mL every 6 ity of mL (0.083 00:00: (six) [place] %) 00 hours as Medical nebulizer needed for Bran ch solution Wheezing or Shortness of Breath. R06.02, R06.2 Nebulizer & 2019-07 Yes Use as [facility] ers Compressor 1-19 directed ity o f For Neb 00:00: [place] [facility] sodium 2019- Yes [id number] 4mL Inhale 4 Un antonio chloride 3 1-19 mL 2 (two) ity of % nebulizer 00:00: times [place] solution 00 daily. [facility] albuterol 2019-07 Yes 2.5mg Inhale 3 Uni vers 2.5 mg /3 1-19 mL every 6 ity of mL (0.083 00:00: (six) [place] %) 00 hours as Medical nebulizer needed for Bran ch solution Wheezing or Shortness of Breath. R06.02, R06.2 Nebulizer & 2019- Yes Use as [facility] ers Compressor 1-19 directed ity o f For Neb 00:00: [place] [facility] sodium 2019- Yes [id number] 4mL Inhale 4 Un antonio chloride 3 1-19 mL 2 (two) ity of % nebulizer 00:00: times [place] solution 00 daily. [facility] albuterol 2019-07 Yes 2.5mg Inhale 3 Uni vers 2.5 mg /3 1-19 mL every 6 ity of mL (0.083 00:00: (six) [place] %) 00 hours as Medical nebulizer needed for Bran ch solution Wheezing or Shortness of Breath. R06.02, R06.2 Nebulizer & 2019- Yes Use as [facility] ers Compressor 1-19 directed ity o f For Neb 00:00: [place] [facility] 00 [facility] sodium 2019- Yes [id number] 4mL Inhale 4 Un antonio chloride 3 1-19 mL 2 (two) ity of % nebulizer 00:00: times [place] solution 00 daily. [facility] albuterol 2019- Yes 2.5mg Inhale 3 Uni vers 2.5 mg /3 1-19 mL every 6 ity of mL (0.083 00:00: (six) [place] %) 00 hours as Medical nebulizer needed for Bran ch solution Wheezing or Shortness of Breath. R06.02, R06.2 Nebulizer & 2019- Yes Use as [facility] ers Compressor 1-19 directed ity o f For Neb 00:00: [place] [facility] sodium 2019- Yes [id number] 4mL Inhale 4 Un antonio chloride 3 1-19 mL 2 (two) ity of % nebulizer 00:00: times [place] solution 00 daily. [facility] albuterol 2019-07 Yes 2.5mg Inhale 3 Uni vers 2.5 mg /3 1-19 mL every 6 ity of mL (0.083 00:00: (six) [place] %) 00 hours as Medical nebulizer needed for Bran ch solution Wheezing or Shortness of Breath. R06.02, R06.2 Nebulizer & 2019-07 Yes Use as [facility] ers Compressor 1-19 directed ity o f For Neb 00:00: [place] [facility] sodium 2019- Yes [id number] 4mL Inhale 4 Un antonio chloride 3 1-19 mL 2 (two) ity of % nebulizer 00:00: times [place] solution 00 daily. [facility] albuterol 2019- Yes 2.5mg Inhale 3 Uni vers 2.5 mg /3 1-19 mL every 6 ity of mL (0.083 00:00: (six) [place] %) 00 hours as Medical nebulizer needed for Bran ch solution Wheezing or Shortness of Breath. R06.02, R06.2 Nebulizer & 2019-07 Yes Use as [facility] ers Compressor 1-19 directed ity o f For Neb 00:00: [place] [facility] sodium 2019- Yes [id number] 4mL Inhale 4 Un antonio chloride 3 1-19 mL 2 (two) ity of % nebulizer 00:00: times [place] solution 00 daily. [facility] albuterol 2019- Yes 2.5mg Inhale 3 Uni vers 2.5 mg /3 1-19 mL every 6 ity of mL (0.083 00:00: (six) [place] %) 00 hours as Medical nebulizer needed for Bran ch solution Wheezing or Shortness of Breath. R06.02, R06.2 Nebulizer & 2019- Yes Use as [facility] ers Compressor 1-19 directed ity o f For Neb 00:00: [place] [facility] 00 [facility] sodium 2019- Yes [id number] 4mL Inhale 4 Un antonio chloride 3 1-19 mL 2 (two) ity of % nebulizer 00:00: times [place] solution 00 daily. [facility] albuterol 2019-07 Yes 2.5mg Inhale 3 Uni vers 2.5 mg /3 1-19 mL every 6 ity of mL (0.083 00:00: (six) [place] %) 00 hours as Medical nebulizer needed for Bran ch solution Wheezing or Shortness of Breath. R06.02, R06.2 Nebulizer & 2019-07 Yes Use as [facility] ers Compressor 1-19 directed ity o f For Neb 00:00: [place] [facility] sodium 2019- Yes [id number] 4mL Inhale 4 Un antonio chloride 3 1-19 mL 2 (two) ity of % nebulizer 00:00: times [place] solution 00 daily. [facility] albuterol 2019- Yes 2.5mg Inhale 3 Uni vers 2.5 mg /3 1-19 mL every 6 ity of mL (0.083 00:00: (six) [place] %) 00 hours as Medical nebulizer needed for Bran ch solution Wheezing or Shortness of Breath. R06.02, R06.2 Nebulizer & 2019- Yes Use as [facility] ers Compressor 1-19 directed ity o f For Neb 00:00: [place] [facility] 00 [facility] sodium 2019- Yes [id number] 4mL Inhale 4 Un antonio chloride 3 1-19 mL 2 (two) ity of % nebulizer 00:00: times [place] solution 00 daily. [facility] albuterol 2019-07 Yes 2.5mg Inhale 3 Uni vers 2.5 mg /3 1-19 mL every 6 ity of mL (0.083 00:00: (six) [place] %) 00 hours as Medical nebulizer needed for Bran ch solution Wheezing or Shortness of Breath. R06.02, R06.2 Nebulizer & 2019- Yes Use as [facility] ers Compressor 1-19 directed ity o f For Neb 00:00: [place] [facility] sodium 2019- Yes [id number] 4mL Inhale 4 Un antonio chloride 3 1-19 mL 2 (two) ity of % nebulizer 00:00: times [place] solution 00 daily. [facility] albuterol 2019- Yes 2.5mg Inhale 3 [facility] vers 2.5 mg /3 1-19 mL every 6 ity of mL (0.083 00:00: (six) [place] %) 00 hours as Medical nebulizer needed for Bran ch solution Wheezing or Shortness of Breath. R06.02, R06.2 Nebulizer & 2019-07 Yes Use as [facility] ers Compressor 1-19 directed ity o f For Neb 00:00: [place] [facility] sodium 2019- Yes [id number] 4mL Inhale 4 Un antonio chloride 3 1-19 mL 2 (two) ity of % nebulizer 00:00: times [place] solution 00 daily. [facility] albuterol 2019-07 Yes 2.5mg Inhale 3 Uni vers 2.5 mg /3 1-19 mL every 6 ity of mL (0.083 00:00: (six) [place] %) 00 hours as Medical nebulizer needed for Bran ch solution Wheezing or Shortness of Breath. R06.02, R06.2 Nebulizer & 2019- Yes Use as [facility] ers Compressor 1-19 directed ity o f For Neb 00:00: [place] [facility] sodium 2019- Yes [id number] 4mL Inhale 4 Un antonio chloride 3 1-19 mL 2 (two) ity of % nebulizer 00:00: times [place] solution 00 daily. [facility] albuterol 2019-07 Yes 2.5mg Inhale 3 Uni vers 2.5 mg /3 1-19 mL every 6 ity of mL (0.083 00:00: (six) [place] %) 00 hours as Medical nebulizer needed for Bran ch solution Wheezing or Shortness of Breath. R06.02, R06.2 Nebulizer & 2019- Yes Use as [facility] ers Compressor 1-19 directed ity o f For Neb 00:00: [place] [facility] 00 [facility] sodium 2019- Yes [id number] 4mL Inhale 4 Un antonio chloride 3 1-19 mL 2 (two) ity of % nebulizer 00:00: times [place] solution 00 daily. [facility] albuterol 2019- Yes 2.5mg Inhale 3 Uni vers 2.5 mg /3 1-19 mL every 6 ity of mL (0.083 00:00: (six) [place] %) 00 hours as Medical nebulizer needed for Bran ch solution Wheezing or Shortness of Breath. R06.02, R06.2 Nebulizer & 2019- Yes Use as [facility] ers Compressor 1-19 directed ity o f For Neb 00:00: [place] [facility] sodium 2019- Yes [id number] 4mL Inhale 4 Un antonio chloride 3 1-19 mL 2 (two) ity of % nebulizer 00:00: times [place] solution 00 daily. [facility] albuterol 2019-07 Yes 2.5mg Inhale 3 Uni vers 2.5 mg /3 1-19 mL every 6 ity of mL (0.083 00:00: (six) [place] %) 00 hours as Medical nebulizer needed for Bran ch solution Wheezing or Shortness of Breath. R06.02, R06.2 Nebulizer & 2019-07 Yes Use as [facility] ers Compressor 1-19 directed ity o f For Neb 00:00: [place] [facility] sodium 2019- Yes [id number] 4mL Inhale 4 Un antonio chloride 3 1-19 mL 2 (two) ity of % nebulizer 00:00: times [place] solution 00 daily. [facility] albuterol 2019- Yes 2.5mg Inhale 3 Uni vers 2.5 mg /3 1-19 mL every 6 ity of mL (0.083 00:00: (six) [place] %) 00 hours as Medical nebulizer needed for Bran ch solution Wheezing or Shortness of Breath. R06.02, R06.2 Nebulizer & 2019-07 Yes Use as [facility] ers Compressor 1-19 directed ity o f For Neb 00:00: [place] [facility] sodium 2019- Yes [id number] 4mL Inhale 4 Un antonio chloride 3 1-19 mL 2 (two) ity of % nebulizer 00:00: times [place] solution 00 daily. [facility] albuterol 2019-07 Yes 2.5mg Inhale 3 Uni vers 2.5 mg /3 1-19 mL every 6 ity of mL (0.083 00:00: (six) [place] %) 00 hours as Medical nebulizer needed for Bran ch solution Wheezing or Shortness of Breath. R06.02, R06.2 Nebulizer & 2019-07 Yes Use as [facility] ers Compressor 1-19 directed ity o f For Neb 00:00: [place] [facility] 00 [facility] sodium 2019-07 Yes [id number] 4mL Inhale 4 Un antonio chloride 3 1-19 mL 2 (two) ity of % nebulizer 00:00: times [place] solution 00 daily. [facility] mirtazapine 2019-07 No 15mg Take 15 mg [facility] 15 mg - by mouth ity of tablet 00:00: 00:00 daily. [place] 00 :00 [facility] lifitegrast 2019-07 Yes [id number] 1[drp] Place 1 [facility] (XIIDRA) 5 0-23 9102 Drop in ity of % Dpet 00:00: each eye 2 [place] (two) Medical times Branch daily. lifitegrast 2019-07 Yes [id number] 1[drp] Place 1 [facility] (XIIDRA) 5 0-23 9102 Drop in ity of % Dpet 00:00: each eye 2 [place] (two) Medical times Branch daily. lifitegrast 2019-07 Yes [id number] 1[drp] Place 1 [facility] (XIIDRA) 5 0-23 9102 Drop in ity of % Dpet 00:00: each eye 2 [place] 00 (two) Medical times Branch daily. lifitegrast 2019-07 Yes [id number] 1[drp] Place 1 [facility] (XIIDRA) 5 0-23 9102 Drop in ity of % Dpet 00:00: each eye 2 [place] (two) Medical times Branch daily. lifitegrast 2019-07 Yes [id number] 1[drp] Place 1 [facility] (XIIDRA) 5 0-23 9102 Drop in ity of % Dpet 00:00: each eye 2 [place] (two) Medical times Branch daily. lifitegrast 2019-07 Yes [id number] 1[drp] Place 1 [facility] (XIIDRA) 5 0-23 9102 Drop in ity of % Dpet 00:00: each eye 2 [place] [address] (two) Medical times Branch daily. lifitegrast 2020-1 Yes [id number] 1[drp] Place 1 [facility] (XIIDRA) 5 0-23 9102 Drop in ity of % Dpet 00:00: each eye 2 [place] [address] (two) Medical times Branch daily. lifitegrast 2020-1 Yes [id number] 1[drp] Place 1 [facility] (XIIDRA) 5 0-23 9102 Drop in ity of % Dpet 00:00: each eye 2 [place] [address] (two) Medical times Branch daily. lifitegrast 2020-1 Yes [id number] 1[drp] Place 1 [facility] (XIIDRA) 5 0-23 9102 Drop in ity of % Dpet 00:00: each eye 2 [place] [address] (two) Medical times Branch daily. lifitegrast 2020-1 Yes [id number] 1[drp] Place 1 [facility] (XIIDRA) 5 0-23 9102 Drop in ity of % Dpet 00:00: each eye 2 [place] [address] (two) Medical times Branch daily. lifitegrast 2020-1 Yes [id number] 1[drp] Place 1 [facility] (XIIDRA) 5 0-23 9102 Drop in ity of % Dpet 00:00: each eye 2 [place] [address] (two) Medical times Branch daily. lifitegrast 2020-1 Yes [id number] 1[drp] Place 1 [facility] (XIIDRA) 5 0-23 9102 Drop in ity of % Dpet 00:00: each eye 2 [place] [address] (two) Medical times Branch daily. lifitegrast 2020-1 Yes [id number] 1[drp] Place 1 [facility] (XIIDRA) 5 0-23 9102 Drop in ity of % Dpet 00:00: each eye 2 [place] [address] (two) Medical times Branch daily. lifitegrast 2020-1 Yes [id number] 1[drp] Place 1 [facility] (XIIDRA) 5 0-23 9102 Drop in ity of % Dpet 00:00: each eye 2 [place] [address] (two) Medical times Branch daily. lifitegrast 2020-1 Yes [id number] 1[drp] Place 1 [facility] (XIIDRA) 5 0-23 9102 Drop in ity of % Dpet 00:00: each eye 2 [place] [address] (two) Medical times Branch daily. lifitegrast 2020-1 Yes [id number] 1[drp] Place 1 [facility] (XIIDRA) 5 0-23 9102 Drop in ity of % Dpet 00:00: each eye 2 [place] [address] (two) Medical times Branch daily. lifitegrast 2020-1 Yes [id number] 1[drp] Place 1 [facility] (XIIDRA) 5 0-23 9102 Drop in ity of % Dpet 00:00: each eye 2 [place] [address] (two) Medical times Branch daily. lifitegrast 2020-1 Yes [id number] 1[drp] Place 1 [facility] (XIIDRA) 5 0-23 9102 Drop in ity of % Dpet 00:00: each eye 2 [place] [address] (two) Medical times Branch daily. lifitegrast 2020-1 Yes [id number] 1[drp] Place 1 [facility] (XIIDRA) 5 0-23 9102 Drop in ity of % Dpet 00:00: each eye 2 [place] [address] (two) Medical times Branch daily. lifitegrast 2020-1 Yes [id number] 1[drp] Place 1 [facility] (XIIDRA) 5 0-23 9102 Drop in ity of % Dpet 00:00: each eye 2 [place] [address] (two) Medical times Branch daily. lifitegrast 2020-1 Yes [id number] 1[drp] Place 1 [facility] (XIIDRA) 5 0-23 9102 Drop in ity of % Dpet 00:00: each eye 2 [place] [address] (two) Medical times Branch daily. lifitegrast 2020-1 Yes [id number] 1[drp] Place 1 [facility] (XIIDRA) 5 0-23 9102 Drop in ity of % Dpet 00:00: each eye 2 [place] [address] (two) Medical times Branch daily. lifitegrast 2020-1 Yes [id number] 1[drp] Place 1 [facility] (XIIDRA) 5 0-23 9102 Drop in ity of % Dpet 00:00: each eye 2 [place] [address] (two) Medical times Branch daily. lifitegrast 2020-1 Yes [id number] 1[drp] Place 1 [facility] (XIIDRA) 5 0-23 9102 Drop in ity of % Dpet 00:00: each eye 2 [place] [address] (two) Medical times Branch daily. lifitegrast 2020-1 Yes [id number] 1[drp] Place 1 [facility] (XIIDRA) 5 0-23 9102 Drop in ity of % Dpet 00:00: each eye 2 [place] [address] (two) Medical times Branch daily. lifitegrast 2020-1 Yes [id number] 1[drp] Place 1 [facility] (XIIDRA) 5 0-23 9102 Drop in ity of % Dpet 00:00: each eye 2 [place] 00 (two) Medical times Branch daily. lifitegrast 2020-1 Yes [id number] 1[drp] Place 1 [facility] (XIIDRA) 5 0-23 9102 Drop in ity of % Dpet 00:00: each eye 2 [place] [address] (two) Medical times Branch daily. lifitegrast 2020-1 Yes [id number] 1[drp] Place 1 [facility] (XIIDRA) 5 0-23 9102 Drop in ity of % Dpet 00:00: each eye 2 [place] [address] (two) Medical times Branch daily. lifitegrast 2020-1 Yes [id number] 1[drp] Place 1 [facility] (XIIDRA) 5 0-23 9102 Drop in ity of % Dpet 00:00: each eye 2 [place] 00 (two) Medical times Branch daily. lifitegrast 2020-1 Yes [id number] 1[drp] Place 1 [facility] (XIIDRA) 5 0-23 9102 Drop in ity of % Dpet 00:00: each eye 2 [place] 00 (two) Medical times Branch daily. lifitegrast 2020-1 Yes [id number] 1[drp] Place 1 [facility] (XIIDRA) 5 0-23 9102 Drop in ity of % Dpet 00:00: each eye 2 [place] 00 (two) Medical times Branch daily. lifitegrast 2020-1 Yes [id number] 1[drp] Place 1 [facility] (XIIDRA) 5 0-23 9102 Drop in ity of % Dpet 00:00: each eye 2 [place] [address] (two) Medical times Branch daily. lifitegrast 2020-1 Yes [id number] 1[drp] Place 1 [facility] (XIIDRA) 5 0-23 9102 Drop in ity of % Dpet 00:00: each eye 2 [place] [address] (two) Medical times Branch daily. lifitegrast 2020-1 Yes [id number] 1[drp] Place 1 [facility] (XIIDRA) 5 0-23 9102 Drop in ity of % Dpet 00:00: each eye 2 [place] [address] (two) Medical times Branch daily. lifitegrast 2020-1 Yes [id number] 1[drp] Place 1 [facility] (XIIDRA) 5 0-23 9102 Drop in ity of % Dpet 00:00: each eye 2 [place] [address] (two) Medical times Branch daily. lifitegrast 2020-1 Yes [id number] 1[drp] Place 1 [facility] (XIIDRA) 5 0-23 9102 Drop in ity of % Dpet 00:00: each eye 2 [place] [address] (two) Medical times Branch daily. lifitegrast 2020-1 Yes [id number] 1[drp] Place 1 [facility] (XIIDRA) 5 0-23 9102 Drop in ity of % Dpet 00:00: each eye 2 [place] [address] (two) Medical times Branch daily. lifitegrast 2020-1 Yes [id number] 1[drp] Place 1 [facility] (XIIDRA) 5 0-23 9102 Drop in ity of % Dpet 00:00: each eye 2 [place] 00 (two) Medical times Branch daily. lifitegrast 2020-1 Yes [id number] 1[drp] Place 1 [facility] (XIIDRA) 5 0-23 9102 Drop in ity of % Dpet 00:00: each eye 2 [place] [address] (two) Medical times Branch daily. lifitegrast 2020-1 Yes [id number] 1[drp] Place 1 [facility] (XIIDRA) 5 0-23 9102 Drop in ity of % Dpet 00:00: each eye 2 [place] 00 (two) Medical times Branch daily. lifitegrast 2020-1 Yes [id number] 1[drp] Place 1 [facility] (XIIDRA) 5 0-23 9102 Drop in ity of % Dpet 00:00: each eye 2 [place] [address] (two) Medical times Branch daily. lifitegrast 2020-1 Yes [id number] 1[drp] Place 1 [facility] (XIIDRA) 5 0-23 9102 Drop in ity of % Dpet 00:00: each eye 2 [place] 00 (two) Medical times Branch daily. lifitegrast 2020- Yes [id number] 1[drp] Place 1 [facility] (XIIDRA) 5 0-23 9102 Drop in ity of % Dpet 00:00: each eye 2 [place] 00 (two) Medical times Branch daily. lifitegrast 2020- Yes [id number] 1[drp] Place 1 [facility] (XIIDRA) 5 0-23 9102 Drop in ity of % Dpet 00:00: each eye 2 [place] 00 (two) Medical times Branch daily. lifitegrast 2020- Yes [id number] 1[drp] Place 1 [facility] (XIIDRA) 5 0-23 9102 Drop in ity of % Dpet 00:00: each eye 2 [place] [address] (two) Medical times Branch daily. lifitegrast 2020- Yes [id number] 1[drp] Place 1 [facility] (XIIDRA) 5 0-23 9102 Drop in ity of % Dpet 00:00: each eye 2 [place] [address] (two) Medical times Branch daily. lifitegrast 2020- Yes [id number] 1[drp] Place 1 [facility] (XIIDRA) 5 0-23 9102 Drop in ity of % Dpet 00:00: each eye 2 [place] 00 (two) Medical times Branch daily. lifitegrast 2020- Yes [id number] 1[drp] Place 1 [facility] (XIIDRA) 5 0-23 9102 Drop in ity of % Dpet 00:00: each eye 2 [place] 00 (two) Medical times Branch daily. lifitegrast 2020-1 Yes [id number] 1[drp] Place 1 [facility] (XIIDRA) 5 0-23 9102 Drop in ity of % Dpet 00:00: each eye 2 [place] 00 (two) Medical times Branch daily. lifitegrast 2020-1 Yes [id number] 1[drp] Place 1 [facility] (XIIDRA) 5 0-23 9102 Drop in ity of % Dpet 00:00: each eye 2 [place] 00 (two) Medical times Branch daily. lifitegrast 2020- Yes [id number] 1[drp] Place 1 [facility] (XIIDRA) 5 0-23 9102 Drop in ity of % Dpet 00:00: each eye 2 [place] 00 (two) Medical times Branch daily. lifitegrast 2020-1 Yes [id number] 1[drp] Place 1 [facility] (XIIDRA) 5 0-23 9102 Drop in ity of % Dpet 00:00: each eye 2 [place] 00 (two) Medical times Branch daily. lifitegrast 2020-1 Yes [id number] 1[drp] Place 1 [facility] (XIIDRA) 5 0-23 9102 Drop in ity of % Dpet 00:00: each eye 2 [place] [address] (two) Medical times Branch daily. lifitegrast 2020-1 Yes [id number] 1[drp] Place 1 [facility] (XIIDRA) 5 0-23 9102 Drop in ity of % Dpet 00:00: each eye 2 [place] [address] (two) Medical times Branch daily. lifitegrast 2020-1 Yes [id number] 1[drp] Place 1 [facility] (XIIDRA) 5 0-23 9102 Drop in ity of % Dpet 00:00: each eye 2 [place] [address] (two) Medical times Branch daily. lifitegrast 2020-1 Yes [id number] 1[drp] Place 1 [facility] (XIIDRA) 5 0-23 9102 Drop in ity of % Dpet 00:00: each eye 2 [place] [address] (two) Medical times Branch daily. lifitegrast 2020-1 Yes [id number] 1[drp] Place 1 [facility] (XIIDRA) 5 0-23 9102 Drop in ity of % Dpet 00:00: each eye 2 [place] 00 (two) Medical times Branch daily. lifitegrast 2020-1 Yes [id number] 1[drp] Place 1 [facility] (XIIDRA) 5 0-23 9102 Drop in ity of % Dpet 00:00: each eye 2 [place] 00 (two) Medical times Branch daily. lifitegrast 2020-1 Yes [id number] 1[drp] Place 1 [facility] (XIIDRA) 5 0-23 9102 Drop in ity of % Dpet 00:00: each eye 2 [place] [address] (two) Medical times Branch daily. lifitegrast 2020-1 Yes [id number] 1[drp] Place 1 [facility] (XIIDRA) 5 0-23 9102 Drop in ity of % Dpet 00:00: each eye 2 [place] [address] (two) Medical times Branch daily. lifitegrast 2020-1 Yes [id number] 1[drp] Place 1 [facility] (XIIDRA) 5 0-23 9102 Drop in ity of % Dpet 00:00: each eye 2 [place] 00 (two) Medical times Branch daily. lifitegrast 2020-1 Yes [id number] 1[drp] Place 1 [facility] (XIIDRA) 5 0-23 9102 Drop in ity of % Dpet 00:00: each eye 2 [place] [address] (two) Medical times Branch daily. lifitegrast 2020- Yes [id number] 1[drp] Place 1 [facility] (XIIDRA) 5 0-23 9102 Drop in ity of % Dpet 00:00: each eye 2 [place] [address] (two) Medical times Branch daily. lifitegrast 2020-1 Yes [id number] 1[drp] Place 1 [facility] (XIIDRA) 5 0-23 9102 Drop in ity of % Dpet 00:00: each eye 2 [place] [address] (two) Medical times Branch daily. lifitegrast 2020-1 Yes [id number] 1[drp] Place 1 [facility] (XIIDRA) 5 0-23 9102 Drop in ity of % Dpet 00:00: each eye 2 [place] 00 (two) Medical times Branch daily. lifitegrast 2020-1 Yes [id number] 1[drp] Place 1 [facility] (XIIDRA) 5 0-23 9102 Drop in ity of % Dpet 00:00: each eye 2 [place] [address] (two) Medical times Branch daily. lifitegrast 2020-1 Yes [id number] 1[drp] Place 1 [facility] (XIIDRA) 5 0-23 9102 Drop in ity of % Dpet 00:00: each eye 2 [place] 00 (two) Medical times Branch daily. lifitegrast 2020- Yes [id number] 1[drp] Place 1 [facility] (XIIDRA) 5 0-23 9102 Drop in ity of % Dpet 00:00: each eye 2 [place] [address] (two) Medical times Branch daily. lifitegrast 2020-1 Yes [id number] 1[drp] Place 1 [facility] (XIIDRA) 5 0-23 9102 Drop in ity of % Dpet 00:00: each eye 2 [place] [address] (two) Medical times Branch daily. lifitegrast 2020-1 Yes [id number] 1[drp] Place 1 [facility] (XIIDRA) 5 0-23 9102 Drop in ity of % Dpet 00:00: each eye 2 [place] [address] (two) Medical times Branch daily. lifitegrast 2020-1 Yes [id number] 1[drp] Place 1 [facility] (XIIDRA) 5 0-23 9102 Drop in ity of % Dpet 00:00: each eye 2 [place] [address] (two) Medical times Branch daily. lifitegrast 2020-1 Yes [id number] 1[drp] Place 1 [facility] (XIIDRA) 5 0-23 9102 Drop in ity of % Dpet 00:00: each eye 2 [place] [address] (two) Medical times Branch daily. lif[facility]ast 2020-1 Yes [id number] 1[drp] Place 1 [facility] 5 0-23 9102 Drop in ity of % Dpet 00:00: each eye 2 [place] [address] (two) Medical times Branch daily. lif[facility]grast 2020-1 Yes [id number] 1[drp] Place 1 [facility] ([facility]) 5 0-23 9102 Drop in ity of % Dpet 00:00: each eye 2 [place] [address] (two) Medical times Branch daily. lif[facility]ast 2020-1 Yes [id number] 1[drp] Place 1 [facility] ([facility]) 5 0-23 9102 Drop in ity of % Dpet 00:00: each eye 2 [place] [address] (two) Medical times Branch daily. lif[facility] 2020-1 Yes [id number] 1[drp] Place 1 [facility] ([facility]) 5 0-23 9102 Drop in ity of % Dpet 00:00: each eye 2 [place] [address] (two) Medical times Branch daily. lif[facility] 2020-1 Yes [id number] 1[drp] Place 1 [facility] ([facility]) 5 0-23 9102 Drop in ity of % Dpet 00:00: each eye 2 [place] [address] (two) Medical times Branch daily. lif[facility] 2020-1 Yes [id number] 1[drp] Place 1 [facility] ([facility]) 5 0-23 9102 Drop in ity of % Dpet 00:00: each eye 2 [place] [address] (two) Medical times Branch daily. lif[facility] 2020-1 Yes [id number] 1[drp] Place 1 [facility] ([facility]) 5 0-23 9102 Drop in ity of % Dpet 00:00: each eye 2 [place] [address] (two) Medical times Branch daily. lif[facility] 2020-1 Yes [id number] 1[drp] Place 1 [facility] ([facility]) 5 0-23 9102 Drop in ity of % Dpet 00:00: each eye 2 [place] [address] (two) Medical times Branch daily. lif[facility]ast 2020-1 Yes [id number] 1[drp] Place 1 [facility] ([facility]) 5 0-23 9102 Drop in ity of % Dpet 00:00: each eye 2 [place] [address] (two) Medical times Branch daily. lif[facility] 2020-1 Yes [id number] 1[drp] Place 1 [facility] ([facility]) 5 0-23 9102 Drop in ity of % Dpet 00:00: each eye 2 [place] [address] (two) Medical times Branch daily. lif[facility]ast 2020-1 Yes [id number] 1[drp] Place 1 [facility] ([facility]) 5 0-23 9102 Drop in ity of % Dpet 00:00: each eye 2 [place] [address] (two) Medical times Branch daily. lif[facility]ast 2020-1 Yes [id number] 1[drp] Place 1 [facility] ([facility]) 5 0-23 9102 Drop in ity of % Dpet 00:00: each eye 2 [place] [address] (two) Medical times Branch daily. lif[facility]ast 2020-1 Yes [id number] 1[drp] Place 1 [facility] ([facility]) 5 0-23 9102 Drop in ity of % Dpet 00:00: each eye 2 [place] [address] (two) Medical times Branch daily. lif[facility]ast 2020-1 Yes [id number] 1[drp] Place 1 [facility] ([facility]) 5 0-23 9102 Drop in ity of % Dpet 00:00: each eye 2 [place] [address] (two) Medical times Branch daily. lif[facility]ast 2020-1 Yes [id number] 1[drp] Place 1 [facility] ([facility]) 5 0-23 9102 Drop in ity of % Dpet 00:00: each eye 2 [place] [address] (two) Medical times Branch daily. lif[facility]grast 2020-1 Yes [id number] 1[drp] Place 1 [facility] ([facility]) 5 0-23 9102 Drop in ity of % Dpet 00:00: each eye 2 [place] [address] (two) Medical times Branch daily. lif[facility]grast 2020-1 Yes [id number] 1[drp] Place 1 [facility] ([facility]) 5 0-23 9102 Drop in ity of % Dpet 00:00: each eye 2 [place] [address] (two) Medical times Branch daily. lif[facility]ast 2020-1 Yes [id number] 1[drp] Place 1 [facility] ([facility]) 5 0-23 9102 Drop in ity of % Dpet 00:00: each eye 2 [place] [address] (two) Medical times Branch daily. lif[facility]ast 2020-1 Yes [id number] 1[drp] Place 1 [facility] ([facility]) 5 0-23 9102 Drop in ity of % Dpet 00:00: each eye 2 [place] [address] (two) Medical times Branch daily. lif[facility]grast 2020-1 Yes [id number] 1[drp] Place 1 [facility] ([facility]) 5 0-23 9102 Drop in ity of % Dpet 00:00: each eye 2 [place] [address] (two) Medical times Branch daily. lif[facility]grast 2020-1 Yes [id number] 1[drp] Place 1 [facility] ([facility]) 5 0-23 9102 Drop in ity of % Dpet 00:00: each eye 2 [place] [address] (two) Medical times Branch daily. lifitegrast 2020-1 Yes [id number] 1[drp] Place 1 [facility] ([facility]) 5 0-23 9102 Drop in ity of % Dpet 00:00: each eye 2 [place] [address] (two) Medical times Branch daily. lifitegrast 2020-1 Yes [id number] 1[drp] Place 1 [facility] ([facility]) 5 0-23 9102 Drop in ity of % Dpet 00:00: each eye 2 [place] 00 (two) Medical times Branch daily. ipratropium 2020-0 Yes [id number] 2{spray Use 2 [facility] 0.03 % 5-22 } Sprays in ity of nasal spray 00:00: each [place] nostril Medical every 12 Branch (twelve) hours. ipratropium 2020-0 Yes [id number] 2{spray Use 2 [facility] 0.03 % 5-22 } Sprays in ity of nasal spray 00:00: each [place] [address] nostril Medical every 12 Branch (twelve) hours. ipratropium 2020-0 Yes [id number] 2{spray Use 2 [facility] 0.03 % 5-22 } Sprays in ity of nasal spray 00:00: each [place] [address] nostril Medical every 12 Branch (twelve) hours. ipratropium 2020-0 Yes [id number] 2{spray Use 2 [facility] 0.03 % 5-22 } Sprays in ity of nasal spray 00:00: each [place] [address] nostril Medical every 12 Branch (twelve) hours. ipratropium 2020-0 Yes [id number] 2{spray Use 2 [facility] 0.03 % 5-22 } Sprays in ity of nasal spray 00:00: each [place] [address] nostril Medical every 12 Branch (twelve) hours. ipratropium 2020-0 Yes [id number] 2{spray Use 2 [facility] 0.03 % 5-22 } Sprays in ity of nasal spray 00:00: each [place] [address] nostril Medical every 12 Branch (twelve) hours. ipratropium 2020-0 Yes [id number] 2{spray Use 2 [facility] 0.03 % 5-22 } Sprays in ity of nasal spray 00:00: each [place] [address] nostril Medical every 12 Branch (twelve) hours. ipratropium 2020-0 Yes [id number] 2{spray Use 2 [facility] 0.03 % 5-22 } Sprays in ity of nasal spray 00:00: each [place] [address] nostril Medical every 12 Branch (twelve) hours. ipratropium 2020-0 Yes [id number] 2{spray Use 2 [facility] 0.03 % 5-22 } Sprays in ity of nasal spray 00:00: each [place] [address] nostril Medical every 12 Branch (twelve) hours. ipratropium 2020-0 Yes [id number] 2{spray Use 2 [facility] 0.03 % 5-22 } Sprays in ity of nasal spray 00:00: each [place] nostril Medical every 12 Branch (twelve) hours. ipratropium 2020-0 Yes [id number] 2{spray Use 2 [facility] 0.03 % 5-22 } Sprays in ity of nasal spray 00:00: each [place] nostril Medical every 12 Branch (twelve) hours. ipratropium 2020-0 Yes [id number] 2{spray Use 2 [facility] 0.03 % 5-22 } Sprays in ity of nasal spray 00:00: each [place] nostril Medical every 12 Branch (twelve) hours. ipratropium 2020-0 Yes [id number] 2{spray Use 2 [facility] 0.03 % 5-22 } Sprays in ity of nasal spray 00:00: each [place] nostril Medical every 12 Branch (twelve) hours. ipratropium 2020-0 Yes [id number] 2{spray Use 2 [facility] 0.03 % 5-22 } Sprays in ity of nasal spray 00:00: each [place] nostril Medical every 12 Branch (twelve) hours. ipratropium 2020-0 Yes [id number] 2{spray Use 2 [facility] 0.03 % 5-22 } Sprays in ity of nasal spray 00:00: each [place] nostril Medical every 12 Branch (twelve) hours. ipratropium 2020-0 Yes [id number] 2{spray Use 2 [facility] 0.03 % 5-22 } Sprays in ity of nasal spray 00:00: each [place] nostril Medical every 12 Branch (twelve) hours. ipratropium 2020-0 Yes [id number] 2{spray Use 2 [facility] 0.03 % 5-22 } Sprays in ity of nasal spray 00:00: each [place] nostril Medical every 12 Branch (twelve) hours. ipratropium 2020-0 Yes [id number] 2{spray Use 2 [facility] 0.03 % 5-22 } Sprays in ity of nasal spray 00:00: each [place] nostril Medical every 12 Branch (twelve) hours. ipratropium 2020-0 Yes [id number] 2{spray Use 2 [facility] 0.03 % 5-22 } Sprays in ity of nasal spray 00:00: each [place] nostril Medical every 12 Branch (twelve) hours. ipratropium 2020-0 Yes [id number] 2{spray Use 2 [facility] 0.03 % 5-22 } Sprays in ity of nasal spray 00:00: each [place] nostril Medical every 12 Branch (twelve) hours. ipratropium 2020-0 Yes [id number] 2{spray Use 2 [facility] 0.03 % 5-22 } Sprays in ity of nasal spray 00:00: each [place] nostril Medical every 12 Branch (twelve) hours. ipratropium 2020-0 Yes [id number] 2{spray Use 2 [facility] 0.03 % 5-22 } Sprays in ity of nasal spray 00:00: each [place] nostril Medical every 12 Branch (twelve) hours. ipratropium 2020-0 Yes [id number] 2{spray Use 2 [facility] 0.03 % 5-22 } Sprays in ity of nasal spray 00:00: each [place] nostril Medical every 12 Branch (twelve) hours. ipratropium 2020-0 Yes [id number] 2{spray Use 2 [facility] 0.03 % 5-22 } Sprays in ity of nasal spray 00:00: each [place] nostril Medical every 12 Branch (twelve) hours. ipratropium 2020-0 Yes [id number] 2{spray Use 2 [facility] 0.03 % 5-22 } Sprays in ity of nasal spray 00:00: each [place] nostril Medical every 12 Branch (twelve) hours. ipratropium 2020-0 Yes [id number] 2{spray Use 2 [facility] 0.03 % 5-22 } Sprays in ity of nasal spray 00:00: each [place] nostril Medical every 12 Branch (twelve) hours. ipratropium 2020-0 Yes [id number] 2{spray Use 2 [facility] 0.03 % 5-22 } Sprays in ity of nasal spray 00:00: each [place] nostril Medical every 12 Branch (twelve) hours. ipratropium 2020-0 Yes [id number] 2{spray Use 2 [facility] 0.03 % 5-22 } Sprays in ity of nasal spray 00:00: each [place] nostril Medical every 12 Branch (twelve) hours. ipratropium 2020-0 Yes [id number] 2{spray Use 2 [facility] 0.03 % 5-22 } Sprays in ity of nasal spray 00:00: each [place] nostril Medical every 12 Branch (twelve) hours. ipratropium 2020-0 Yes [id number] 2{spray Use 2 [facility] 0.03 % 5-22 } Sprays in ity of nasal spray 00:00: each [place] nostril Medical every 12 Branch (twelve) hours. ipratropium 2020-0 Yes [id number] 2{spray Use 2 [facility] 0.03 % 5-22 } Sprays in ity of nasal spray 00:00: each [place] nostril Medical every 12 Branch (twelve) hours. ipratropium 2020-0 Yes [id number] 2{spray Use 2 [facility] 0.03 % 5-22 } Sprays in ity of nasal spray 00:00: each [place] nostril Medical every 12 Branch (twelve) hours. ipratropium 2020-0 Yes [id number] 2{spray Use 2 [facility] 0.03 % 5-22 } Sprays in ity of nasal spray 00:00: each [place] nostril Medical every 12 Branch (twelve) hours. ipratropium 2020-0 Yes [id number] 2{spray Use 2 [facility] 0.03 % 5-22 } Sprays in ity of nasal spray 00:00: each [place] nostril Medical every 12 Branch (twelve) hours. ipratropium 2020-0 Yes [id number] 2{spray Use 2 [facility] 0.03 % 5-22 } Sprays in ity of nasal spray 00:00: each [place] nostril Medical every 12 Branch (twelve) hours. ipratropium 2020-0 Yes [id number] 2{spray Use 2 [facility] 0.03 % 5-22 } Sprays in ity of nasal spray 00:00: each [place] nostril Medical every 12 Branch (twelve) hours. ipratropium 2020-0 Yes [id number] 2{spray Use 2 [facility] 0.03 % 5-22 } Sprays in ity of nasal spray 00:00: each [place] nostril Medical every 12 Branch (twelve) hours. ipratropium 2020-0 Yes [id number] 2{spray Use 2 [facility] 0.03 % 5-22 } Sprays in ity of nasal spray 00:00: each [place] nostril Medical every 12 Branch (twelve) hours. ipratropium 2020-0 Yes [id number] 2{spray Use 2 [facility] 0.03 % 5-22 } Sprays in ity of nasal spray 00:00: each [place] nostril Medical every 12 Branch (twelve) hours. ipratropium 2020-0 Yes [id number] 2{spray Use 2 [facility] 0.03 % 5-22 } Sprays in ity of nasal spray 00:00: each [place] nostril Medical every 12 Branch (twelve) hours. ipratropium 2020-0 Yes [id number] 2{spray Use 2 [facility] 0.03 % 5-22 } Sprays in ity of nasal spray 00:00: each [place] nostril Medical every 12 Branch (twelve) hours. ipratropium 2020-0 Yes [id number] 2{spray Use 2 [facility] 0.03 % 5-22 } Sprays in ity of nasal spray 00:00: each [place] nostril Medical every 12 Branch (twelve) hours. ipratropium 2020-0 Yes [id number] 2{spray Use 2 [facility] 0.03 % 5-22 } Sprays in ity of nasal spray 00:00: each [place] nostril Medical every 12 Branch (twelve) hours. ipratropium 2020-0 Yes [id number] 2{spray Use 2 [facility] 0.03 % 5-22 } Sprays in ity of nasal spray 00:00: each [place] nostril Medical every 12 Branch (twelve) hours. ipratropium 2020-0 Yes [id number] 2{spray Use 2 [facility] 0.03 % 5-22 } Sprays in ity of nasal spray 00:00: each [place] nostril Medical every 12 Branch (twelve) hours. ipratropium 2020-0 Yes [id number] 2{spray Use 2 [facility] 0.03 % 5-22 } Sprays in ity of nasal spray 00:00: each [place] nostril Medical every 12 Branch (twelve) hours. ipratropium 2020-0 Yes [id number] 2{spray Use 2 [facility] 0.03 % 5-22 } Sprays in ity of nasal spray 00:00: each [place] nostril Medical every 12 Branch (twelve) hours. ipratropium 2020-0 Yes [id number] 2{spray Use 2 [facility] 0.03 % 5-22 } Sprays in ity of nasal spray 00:00: each [place] 00 nostril Medical every 12 Branch (twelve) hours. ipratropium 2020-0 Yes [id number] 2{spray Use 2 [facility] 0.03 % 5-22 } Sprays in ity of nasal spray 00:00: each [place] nostril Medical every 12 Branch (twelve) hours. ipratropium 2020-0 Yes [id number] 2{spray Use 2 [facility] 0.03 % 5-22 } Sprays in ity of nasal spray 00:00: each [place] nostril Medical every 12 Branch (twelve) hours. ipratropium 2020-0 Yes [id number] 2{spray Use 2 [facility] 0.03 % 5-22 } Sprays in ity of nasal spray 00:00: each [place] nostril Medical every 12 Branch (twelve) hours. ipratropium 2020-0 Yes [id number] 2{spray Use 2 [facility] 0.03 % 5-22 } Sprays in ity of nasal spray 00:00: each [place] nostril Medical every 12 Branch (twelve) hours. ipratropium 2020-0 Yes [id number] 2{spray Use 2 [facility] 0.03 % 5-22 } Sprays in ity of nasal spray 00:00: each [place] nostril Medical every 12 Branch (twelve) hours. ipratropium 2020-0 Yes [id number] 2{spray Use 2 [facility] 0.03 % 5-22 } Sprays in ity of nasal spray 00:00: each [place] nostril Medical every 12 Branch (twelve) hours. ipratropium 2020-0 Yes [id number] 2{spray Use 2 [facility] 0.03 % 5-22 } Sprays in ity of nasal spray 00:00: each [place] nostril Medical every 12 Branch (twelve) hours. ipratropium 2020-0 Yes [id number] 2{spray Use 2 [facility] 0.03 % 5-22 } Sprays in ity of nasal spray 00:00: each [place] nostril Medical every 12 Branch (twelve) hours. ipratropium 2020-0 Yes [id number] 2{spray Use 2 [facility] 0.03 % 5-22 } Sprays in ity of nasal spray 00:00: each [place] nostril Medical every 12 Branch (twelve) hours. ipratropium 2020-0 Yes [id number] 2{spray Use 2 [facility] 0.03 % 5-22 } Sprays in ity of nasal spray 00:00: each [place] nostril Medical every 12 Branch (twelve) hours. ipratropium 2020-0 Yes [id number] 2{spray Use 2 [facility] 0.03 % 5-22 } Sprays in ity of nasal spray 00:00: each [place] nostril Medical every 12 Branch (twelve) hours. ipratropium 2020-0 Yes [id number] 2{spray Use 2 [facility] 0.03 % 5-22 } Sprays in ity of nasal spray 00:00: each [place] nostril Medical every 12 Branch (twelve) hours. ipratropium 2020-0 Yes [id number] 2{spray Use 2 [facility] 0.03 % 5-22 } Sprays in ity of nasal spray 00:00: each [place] nostril Medical every 12 Branch (twelve) hours. ipratropium 2020-0 Yes [id number] 2{spray Use 2 [facility] 0.03 % 5-22 } Sprays in ity of nasal spray 00:00: each [place] nostril Medical every 12 Branch (twelve) hours. ipratropium 2020-0 Yes [id number] 2{spray Use 2 [facility] 0.03 % 5-22 } Sprays in ity of nasal spray 00:00: each [place] nostril Medical every 12 Branch (twelve) hours. ipratropium 2020-0 Yes [id number] 2{spray Use 2 [facility] 0.03 % 5-22 } Sprays in ity of nasal spray 00:00: each [place] nostril Medical every 12 Branch (twelve) hours. ipratropium 2020-0 Yes [id number] 2{spray Use 2 [facility] 0.03 % 5-22 } Sprays in ity of nasal spray 00:00: each [place] nostril Medical every 12 Branch (twelve) hours. ipratropium 2020-0 Yes [id number] 2{spray Use 2 [facility] 0.03 % 5-22 } Sprays in ity of nasal spray 00:00: each [place] 00 nostril Medical every 12 Branch (twelve) hours. ipratropium 2020-0 Yes [id number] 2{spray Use 2 [facility] 0.03 % 5-22 } Sprays in ity of nasal spray 00:00: each [place] nostril Medical every 12 Branch (twelve) hours. ipratropium 2020-0 Yes [id number] 2{spray Use 2 [facility] 0.03 % 5-22 } Sprays in ity of nasal spray 00:00: each [place] nostril Medical every 12 Branch (twelve) hours. ipratropium 2020-0 Yes [id number] 2{spray Use 2 [facility] 0.03 % 5-22 } Sprays in ity of nasal spray 00:00: each [place] nostril Medical every 12 Branch (twelve) hours. ipratropium 2020-0 Yes [id number] 2{spray Use 2 [facility] 0.03 % 5-22 } Sprays in ity of nasal spray 00:00: each [place] nostril Medical every 12 Branch (twelve) hours. ipratropium 2020-0 Yes [id number] 2{spray Use 2 [facility] 0.03 % 5-22 } Sprays in ity of nasal spray 00:00: each [place] nostril Medical every 12 Branch (twelve) hours. ipratropium 2020-0 Yes [id number] 2{spray Use 2 [facility] 0.03 % 5-22 } Sprays in ity of nasal spray 00:00: each [place] nostril Medical every 12 Branch (twelve) hours. ipratropium 2020-0 Yes [id number] 2{spray Use 2 [facility] 0.03 % 5-22 } Sprays in ity of nasal spray 00:00: each [place] nostril Medical every 12 Branch (twelve) hours. ipratropium 2020-0 Yes [id number] 2{spray Use 2 [facility] 0.03 % 5-22 } Sprays in ity of nasal spray 00:00: each [place] nostril Medical every 12 Branch (twelve) hours. ipratropium 2020-0 Yes [id number] 2{spray Use 2 [facility] 0.03 % 5-22 } Sprays in ity of nasal spray 00:00: each [place] nostril Medical every 12 Branch (twelve) hours. ipratropium 2020-0 Yes [id number] 2{spray Use 2 [facility] 0.03 % 5-22 } Sprays in ity of nasal spray 00:00: each [place] nostril Medical every 12 Branch (twelve) hours. ipratropium 2020-0 Yes [id number] 2{spray Use 2 [facility] 0.03 % 5-22 } Sprays in ity of nasal spray 00:00: each [place] nostril Medical every 12 Branch (twelve) hours. ipratropium 2020-0 Yes [id number] 2{spray Use 2 [facility] 0.03 % 5-22 } Sprays in ity of nasal spray 00:00: each [place] nostril Medical every 12 Branch (twelve) hours. ipratropium 2020-0 Yes [id number] 2{spray Use 2 [facility] 0.03 % 5-22 } Sprays in ity of nasal spray 00:00: each [place] nostril Medical every 12 Branch (twelve) hours. ipratropium 2020-0 Yes [id number] 2{spray Use 2 [facility] 0.03 % 5-22 } Sprays in ity of nasal spray 00:00: each [place] nostril Medical every 12 Branch (twelve) hours. ipratropium 2020-0 Yes [id number] 2{spray Use 2 [facility] 0.03 % 5-22 } Sprays in ity of nasal spray 00:00: each [place] nostril Medical every 12 Branch (twelve) hours. ipratropium 2020-0 Yes [id number] 2{spray Use 2 [facility] 0.03 % 5-22 } Sprays in ity of nasal spray 00:00: each [place] nostril Medical every 12 Branch (twelve) hours. ipratropium 2020-0 Yes [id number] 2{spray Use 2 [facility] 0.03 % 5-22 } Sprays in ity of nasal spray 00:00: each [place] nostril Medical every 12 Branch (twelve) hours. ipratropium 2020-0 Yes [id number] 2{spray Use 2 [facility] 0.03 % 5-22 } Sprays in ity of nasal spray 00:00: each [place] nostril Medical every 12 Branch (twelve) hours. ipratropium 2020-0 Yes [id number] 2{spray Use 2 [facility] 0.03 % 5-22 } Sprays in ity of nasal spray 00:00: each [place] nostril Medical every 12 Branch (twelve) hours. ipratropium 2020-0 Yes [id number] 2{spray Use 2 [facility] 0.03 % 5-22 } Sprays in ity of nasal spray 00:00: each [place] nostril Medical every 12 Branch (twelve) hours. ipratropium 2020-0 Yes [id number] 2{spray Use 2 [facility] 0.03 % 5-22 } Sprays in ity of nasal spray 00:00: each [place] nostril Medical every 12 Branch (twelve) hours. ipratropium 2020-0 Yes [id number] 2{spray Use 2 [facility] 0.03 % 5-22 } Sprays in ity of nasal spray 00:00: each [place] nostril Medical every 12 Branch (twelve) hours. ipratropium 2020-0 Yes [id number] 2{spray Use 2 [facility] 0.03 % 5-22 } Sprays in ity of nasal spray 00:00: each [place] nostril Medical every 12 Branch (twelve) hours. ipratropium 2020-0 Yes [id number] 2{spray Use 2 [facility] 0.03 % 5-22 } Sprays in ity of nasal spray 00:00: each [place] nostril Medical every 12 Branch (twelve) hours. ipratropium 2020-0 Yes [id number] 2{spray Use 2 [facility] 0.03 % 5-22 } Sprays in ity of nasal spray 00:00: each [place] nostril Medical every 12 Branch (twelve) hours. ipratropium 2020-0 Yes [id number] 2{spray Use 2 [facility] 0.03 % 5-22 } Sprays in ity of nasal spray 00:00: each [place] nostril Medical every 12 Branch (twelve) hours. ipratropium 2020-0 Yes [id number] 2{spray Use 2 [facility] 0.03 % 5-22 } Sprays in ity of nasal spray 00:00: each [place] nostril Medical every 12 Branch (twelve) hours. ipratropium 2020-0 Yes [id number] 2{spray Use 2 [facility] 0.03 % 5-22 } Sprays in ity of nasal spray 00:00: each [place] nostril Medical every 12 Branch (twelve) hours. ipratropium 2020-0 Yes [id number] 2{spray Use 2 [facility] 0.03 % 5-22 } Sprays in ity of nasal spray 00:00: each [place] 00 nostril Medical every 12 Branch (twelve) hours. cetirizine 2020-0 Yes [id number] 5mg Take 1 U nivers 5 mg tablet 1-31 tablet by ity of 00:00: mouth [place] 00 daily. Medical Branch cetirizine 2020-0 Yes [id number] 5mg Take 1 U nivers 5 mg tablet 1-31 tablet by ity of 00:00: mouth [place] 00 daily. Medical Branch cetirizine 2020-0 Yes [id number] 5mg Take 1 U nivers 5 mg tablet 1-31 tablet by ity of 00:00: mouth [place] 00 daily. Medical Branch cetirizine 2020-0 Yes [id number] 5mg Take 1 [facility] n[facility] 5 mg tablet 1-31 tablet by ity of 00:00: mouth [place] 00 daily. Medical Branch cetirizine 2020-0 Yes [id number] 5mg Take 1 [facility] nivers 5 mg tablet 1-31 tablet by ity of 00:00: mouth [place] 00 daily. Medical Branch cetirizine 2020-0 Yes [id number] 5mg Take 1 [facility] n[facility] 5 mg tablet 1-31 tablet by ity of 00:00: mouth [place] 00 daily. Medical Branch cetirizine 2020-0 Yes [id number] 5mg Take 1 [facility] n[facility] 5 mg tablet 1-31 tablet by ity of 00:00: mouth [place] 00 daily. Medical Branch cetirizine 2020-0 Yes [id number] 5mg Take 1 [facility] n[facility] 5 mg tablet 1-31 tablet by ity of 00:00: mouth [place] 00 daily. Medical Branch cetirizine 2020-0 Yes [id number] 5mg Take 1 [facility] n[facility] 5 mg tablet 1-31 tablet by ity of 00:00: mouth [place] 00 daily. Medical Branch cetirizine 2020-0 Yes [id number] 5mg Take 1 [facility] nivers 5 mg tablet 1-31 tablet by ity of 00:00: mouth [place] 00 daily. Medical Branch cetirizine 2020-0 Yes [id number] 5mg Take 1 [facility] n[facility] 5 mg tablet 1-31 tablet by ity of 00:00: mouth [place] 00 daily. Medical Branch cetirizine 2020-0 Yes [id number] 5mg Take 1 [facility] nivers 5 mg tablet 1-31 tablet by ity of 00:00: mouth [place] 00 daily. Medical Branch cetirizine 2020-0 Yes [id number] 5mg Take 1 [facility] n[facility] 5 mg tablet 1-31 tablet by ity of 00:00: mouth [place] 00 daily. Medical Branch cetirizine 2020-0 Yes [id number] 5mg Take 1 [facility] nivers 5 mg tablet 1-31 tablet by ity of 00:00: mouth [place] 00 daily. Medical Branch cetirizine 2020-0 Yes [id number] 5mg Take 1 [facility] n[facility] 5 mg tablet 1-31 tablet by ity of 00:00: mouth [place] 00 daily. Medical Branch cetirizine 2020-0 Yes [id number] 5mg Take 1 [facility] n[facility] 5 mg tablet 1-31 tablet by ity of 00:00: mouth [place] 00 daily. Medical Branch cetirizine 2020-0 Yes [id number] 5mg Take 1 [facility] n[facility] 5 mg tablet 1-31 tablet by ity of 00:00: mouth [place] 00 daily. Medical Branch cetirizine 2020-0 Yes [id number] 5mg Take 1 [facility] n[facility] 5 mg tablet 1-31 tablet by ity of 00:00: mouth [place] 00 daily. Medical Branch cetirizine 2020-0 Yes [id number] 5mg Take 1 [facility] n[facility] 5 mg tablet 1-31 tablet by ity of 00:00: mouth [place] 00 daily. Medical Branch cetirizine 2020-0 Yes [id number] 5mg Take 1 [facility] nivers 5 mg tablet 1-31 tablet by ity of 00:00: mouth [place] 00 daily. Medical Branch cetirizine 2020-0 Yes [id number] 5mg Take 1 [facility] n[facility] 5 mg tablet 1-31 tablet by ity of 00:00: mouth [place] 00 daily. Medical Branch cetirizine 2020-0 Yes [id number] 5mg Take 1 [facility] nivers 5 mg tablet 1-31 tablet by ity of 00:00: mouth [place] 00 daily. Medical Branch cetirizine 2020-0 Yes [id number] 5mg Take 1 [facility] 5 mg tablet 1-31 tablet by ity of 00:00: mouth [place] 00 daily. Medical Branch cetirizine 2020-0 Yes [id number] 5mg Take 1 [facility] n[facility] 5 mg tablet 1-31 tablet by ity of 00:00: mouth [place] 00 daily. Medical Branch cetirizine 2020-0 Yes [id number] 5mg Take 1 [facility] n[facility] 5 mg tablet 1-31 tablet by ity of 00:00: mouth [place] 00 daily. Medical Branch cetirizine 2020-0 Yes [id number] 5mg Take 1 [facility] 5 mg tablet 1-31 tablet by ity of 00:00: mouth [place] 00 daily. Medical Branch cetirizine 2020-0 Yes [id number] 5mg Take 1 [facility] n[facility] 5 mg tablet 1-31 tablet by ity of 00:00: mouth [place] 00 daily. Medical Branch cetirizine 2020-0 Yes [id number] 5mg Take 1 [facility] n[facility] 5 mg tablet 1-31 tablet by ity of 00:00: mouth [place] 00 daily. Medical Branch cetirizine 2020-0 Yes [id number] 5mg Take 1 [facility] n[facility] 5 mg tablet 1-31 tablet by ity of 00:00: mouth [place] 00 daily. Medical Branch cetirizine 2020-0 Yes [id number] 5mg Take 1 [facility] 5 mg tablet 1-31 tablet by ity of 00:00: mouth [place] 00 daily. Medical Branch cetirizine 2020-0 Yes [id number] 5mg Take 1 [facility] n[facility] 5 mg tablet 1-31 tablet by ity of 00:00: mouth [place] 00 daily. Medical Branch cetirizine 2020-0 Yes [id number] 5mg Take 1 [facility] nivers 5 mg tablet 1-31 tablet by ity of 00:00: mouth [place] 00 daily. Medical Branch cetirizine 2020-0 Yes [id number] 5mg Take 1 [facility] 5 mg tablet 1-31 tablet by [facility] 00:00: mouth [place] 00 daily. [facility] cetirizine 2020-0 Yes [id number] 5mg Take 1 [facility] 5 mg tablet 1-31 tablet by [facility] 00:00: mouth [place] 00 daily. [facility] cetirizine 2020-0 Yes [id number] 5mg Take 1 [facility] 5 mg tablet 1-31 tablet by [facility] 00:00: mouth [place] 00 daily. [facility] cetirizine 2020-0 Yes [id number] 5mg Take 1 [facility] 5 mg tablet 1-31 tablet by [facility] 00:00: mouth [place] 00 daily. [facility] cetirizine 2020-0 Yes [id number] 5mg Take 1 [facility] 5 mg tablet 1-31 tablet by [facility] 00:00: mouth [place] 00 daily. [facility] cetirizine 2020-0 Yes [id number] 5mg Take 1 [facility] 5 mg tablet 1-31 tablet by [facility] 00:00: mouth [place] 00 daily. [facility] cetirizine 2020-0 Yes [id number] 5mg Take 1 [facility] 5 mg tablet 1-31 tablet by [facility] 00:00: mouth [place] 00 daily. [facility] cetirizine 2020-0 Yes [id number] 5mg Take 1 [facility] 5 mg tablet 1-31 tablet by [facility] 00:00: mouth [place] 00 daily. [facility] cetirizine 2020-0 Yes [id number] 5mg Take 1 [facility] 5 mg tablet 1-31 tablet by [facility] 00:00: mouth [place] 00 daily. [facility] cetirizine 2020-0 Yes [id number] 5mg Take 1 [facility] 5 mg tablet 1-31 tablet by [facility] 00:00: mouth [place] 00 daily. [facility] cetirizine 2020-0 Yes [id number] 5mg Take 1 [facility] 5 mg tablet 1-31 tablet by [facility] 00:00: mouth [place] 00 daily. [facility] cetirizine 2020-0 Yes [id number] 5mg Take 1 [facility] 5 mg tablet 1-31 tablet by [facility] 00:00: mouth [place] 00 daily. [facility] cetirizine 2020-0 Yes [id number] 5mg Take 1 [facility] 5 mg tablet 1-31 tablet by [facility] 00:00: mouth [place] 00 daily. [facility] cetirizine 2020-0 Yes [id number] 5mg Take 1 [facility] 5 mg tablet 1-31 tablet by [facility] 00:00: mouth [place] 00 daily. [facility] cetirizine 2020-0 Yes [id number] 5mg Take 1 [facility] 5 mg tablet 1-31 tablet by [facility] 00:00: mouth [place] 00 daily. [facility] cetirizine 2020-0 Yes [id number] 5mg Take 1 [facility] 5 mg tablet 1-31 tablet by [facility] 00:00: mouth [place] 00 daily. [facility] cetirizine 2020-0 Yes [id number] 5mg Take 1 [facility] 5 mg tablet 1-31 tablet by [facility] 00:00: mouth [place] 00 daily. [facility] cetirizine 2020-0 Yes [id number] 5mg Take 1 [facility] 5 mg tablet 1-31 tablet by [facility] 00:00: mouth [place] 00 daily. [facility] cetirizine 2020-0 Yes [id number] 5mg Take 1 [facility] 5 mg tablet 1-31 tablet by [facility] 00:00: mouth [place] 00 daily. [facility] cetirizine 2020-0 Yes [id number] 5mg Take 1 [facility] 5 mg tablet 1-31 tablet by [facility] 00:00: mouth [place] 00 daily. [facility] cetirizine 2020-0 Yes [id number] 5mg Take 1 [facility] 5 mg tablet 1-31 tablet by [facility] 00:00: mouth [place] 00 daily. [facility] cetirizine 2020-0 Yes [id number] 5mg Take 1 [facility] 5 mg tablet 1-31 tablet by [facility] 00:00: mouth [place] 00 daily. [facility] cetirizine 2020-0 Yes [id number] 5mg Take 1 [facility] 5 mg tablet 1-31 tablet by [facility] 00:00: mouth [place] 00 daily. [facility] cetirizine 2020-0 Yes [id number] 5mg Take 1 [facility] 5 mg tablet 1-31 tablet by [facility] 00:00: mouth [place] 00 daily. [facility] cetirizine 2020-0 Yes [id number] 5mg Take 1 [facility] 5 mg tablet 1-31 tablet by [facility] 00:00: mouth [place] 00 daily. [facility] cetirizine 2020-0 Yes [id number] 5mg Take 1 [facility] 5 mg tablet 1-31 tablet by [facility] 00:00: mouth [place] 00 daily. [facility] cetirizine 2020-0 Yes [id number] 5mg Take 1 [facility] 5 mg tablet 1-31 tablet by [facility] 00:00: mouth [place] 00 daily. [facility] cetirizine 2020-0 Yes [id number] 5mg Take 1 [facility] 5 mg tablet 1-31 tablet by [facility] 00:00: mouth [place] 00 daily. [facility] cetirizine 2020-0 Yes [id number] 5mg Take 1 [facility] 5 mg tablet 1-31 tablet by [facility] 00:00: mouth [place] 00 daily. [facility] cetirizine 2020-0 Yes [id number] 5mg Take 1 [facility] 5 mg tablet 1-31 tablet by [facility] 00:00: mouth [place] 00 daily. [facility] cetirizine 2020-0 Yes [id number] 5mg Take 1 [facility] 5 mg tablet 1-31 tablet by [facility] 00:00: mouth [place] 00 daily. [facility] cetirizine 2020-0 Yes [id number] 5mg Take 1 [facility] 5 mg tablet 1-31 tablet by [facility] 00:00: mouth [place] 00 daily. [facility] cetirizine 2020-0 Yes [id number] 5mg Take 1 [facility] 5 mg tablet 1-31 tablet by [facility] 00:00: mouth [place] 00 daily. [facility] cetirizine 2020-0 Yes [id number] 5mg Take 1 [facility] 5 mg tablet 1-31 tablet by [facility] 00:00: mouth [place] 00 daily. [facility] cetirizine 2020-0 Yes [id number] 5mg Take 1 [facility] 5 mg tablet 1-31 tablet by [facility] 00:00: mouth [place] 00 daily. [facility] cetirizine 2020-0 Yes [id number] 5mg Take 1 [facility] 5 mg tablet 1-31 tablet by [facility] 00:00: mouth [place] 00 daily. [facility] cetirizine 2020-0 Yes [id number] 5mg Take 1 [facility] 5 mg tablet 1-31 tablet by [facility] 00:00: mouth [place] 00 daily. [facility] cetirizine 2020-0 Yes [id number] 5mg Take 1 [facility] 5 mg tablet 1-31 tablet by [facility] 00:00: mouth [place] 00 daily. [facility] cetirizine 2020-0 Yes [id number] 5mg Take 1 [facility] 5 mg tablet 1-31 tablet by [facility] 00:00: mouth [place] 00 daily. [facility] cetirizine 2020-0 Yes [id number] 5mg Take 1 [facility] 5 mg tablet 1-31 tablet by [facility] 00:00: mouth [place] 00 daily. [facility] cetirizine 2020-0 Yes [id number] 5mg Take 1 [facility] 5 mg tablet 1-31 tablet by [facility] 00:00: mouth [place] 00 daily. [facility] cetirizine 2020-0 Yes [id number] 5mg Take 1 [facility] 5 mg tablet 1-31 tablet by [facility] 00:00: mouth [place] 00 daily. [facility] cetirizine 2020-0 Yes [id number] 5mg Take 1 [facility] 5 mg tablet 1-31 tablet by [facility] 00:00: mouth [place] 00 daily. [facility] cetirizine 2020-0 Yes [id number] 5mg Take 1 [facility] 5 mg tablet 1-31 tablet by [facility] 00:00: mouth [place] 00 daily. [facility] cetirizine 2020-0 Yes [id number] 5mg Take 1 [facility] 5 mg tablet 1-31 tablet by [facility] 00:00: mouth [place] 00 daily. [facility] cetirizine 2020-0 Yes [id number] 5mg Take 1 [facility] 5 mg tablet 1-31 tablet by [facility] 00:00: mouth [place] 00 daily. [facility] cetirizine 2020-0 Yes [id number] 5mg Take 1 [facility] 5 mg tablet 1-31 tablet by [facility] 00:00: mouth [place] 00 daily. [facility] cetirizine 2020-0 Yes [id number] 5mg Take 1 [facility] 5 mg tablet 1-31 tablet by [facility] 00:00: mouth [place] 00 daily. [facility] cetirizine 2020-0 Yes [id number] 5mg Take 1 [facility] 5 mg tablet 1-31 tablet by [facility] 00:00: mouth [place] 00 daily. [facility] cetirizine 2020-0 Yes [id number] 5mg Take 1 [facility] 5 mg tablet 1-31 tablet by [facility] 00:00: mouth [place] 00 daily. [facility] cetirizine 2020-0 Yes [id number] 5mg Take 1 [facility] 5 mg tablet 1-31 tablet by [facility] 00:00: mouth [place] 00 daily. [facility] cetirizine 2020-0 Yes [id number] 5mg Take 1 [facility] 5 mg tablet 1-31 tablet by [facility] 00:00: mouth [place] 00 daily. [facility] cetirizine 2020-0 Yes [id number] 5mg Take 1 [facility] 5 mg tablet 1-31 tablet by [facility] 00:00: mouth [place] 00 daily. [facility] cetirizine 2020-0 Yes [id number] 5mg Take 1 [facility] 5 mg tablet 1-31 tablet by [facility] 00:00: mouth [place] 00 daily. [facility] cetirizine 2020-0 Yes [id number] 5mg Take 1 [facility] 5 mg tablet 1-31 tablet by [facility] 00:00: mouth [place] 00 daily. [facility] cetirizine 2020-0 Yes [id number] 5mg Take 1 [facility] 5 mg tablet 1-31 tablet by [facility] of 00:00: mouth [place] 00 daily. [facility] cetirizine 2020-0 Yes [id number] 5mg Take 1 [facility] 5 mg tablet 1-31 tablet by [facility] of 00:00: mouth [place] 00 daily. [facility] cetirizine 2020-0 Yes [id number] 5mg Take 1 [facility] 5 mg tablet 1-31 tablet by [facility] of 00:00: mouth [place] 00 daily. [facility] cetirizine 2020-0 Yes [id number] 5mg Take 1 [facility] 5 mg tablet 1-31 tablet by [facility] of 00:00: mouth [place] 00 daily. [facility] cetirizine 2020-0 Yes [id number] 5mg Take 1 [facility] 5 mg tablet 1-31 tablet by [facility] of 00:00: mouth [place] 00 daily. [facility] cetirizine 2020-0 Yes [id number] 5mg Take 1 [facility] 5 mg tablet 1-31 tablet by [facility] of 00:00: mouth [place] 00 daily. [facility] cetirizine 2020-0 Yes [id number] 5mg Take 1 [facility] 5 mg tablet 1-31 tablet by [facility] of 00:00: mouth [place] 00 daily. [facility] cetirizine 2020-0 Yes [id number] 5mg Take 1 [facility] 5 mg tablet 1-31 tablet by [facility] of 00:00: mouth [place] 00 daily. [facility] ergocalcife 2019-0 Yes [id number] Take 1 [facility], 1-16 capsule by [facility] of vitamin d2, 00:00: mouth [place] 50,000 unit 00 every 4 Medic al capsule (four) Branch weeks. ergocalcife 2019-0 Yes [id number] Take 1 [facility], 1-16 capsule by [facility] of vitamin d2, 00:00: mouth [place] 50,000 unit 00 every 4 Medic al capsule (four) Branch weeks. ergocalcife 2019-0 Yes [id number] Take 1 [facility], 1-16 capsule by [facility] of vitamin d2, 00:00: mouth [place] 50,000 unit 00 every 4 Medic al capsule (four) Branch weeks. ergocalcife 2019-0 Yes [id number] Take 1 [facility], 1-16 capsule by [facility] of vitamin d2, 00:00: mouth [place] 50,000 unit 00 every 4 Medic al capsule (four) Branch weeks. ergocalcife 2019-0 Yes [id number] Take 1 [facility], 1-16 capsule by [facility] of vitamin d2, 00:00: mouth [place] 50,000 unit 00 every 4 Medic al capsule (four) Branch weeks. ergocalcife 2019-0 Yes [id number] Take 1 [facility], 1-16 capsule by [facility] of vitamin d2, 00:00: mouth [place] 50,000 unit 00 every 4 Medic al capsule (four) Branch weeks. ergocalcife 2019-0 Yes [id number] Take 1 [facility], 1-16 capsule by [facility] of vitamin d2, 00:00: mouth [place] 50,000 unit 00 every 4 Medic al capsule (four) Branch weeks. ergocalcife 2019-0 Yes [id number] Take 1 [facility], 1-16 capsule by [facility] of vitamin d2, 00:00: mouth [place] 50,000 unit 00 every 4 Medic al capsule (four) Branch weeks. ergocalcife 2019-0 Yes [id number] Take 1 [facility], 1-16 capsule by [facility] of vitamin d2, 00:00: mouth [place] 50,000 unit 00 every 4 Medic al capsule (four) Branch weeks. ergocalcife 2019-0 Yes [id number] Take 1 [facility], 1-16 capsule by [facility] of vitamin d2, 00:00: mouth [place] 50,000 unit 00 every 4 Medic al capsule (four) Branch weeks. ergocalcife 2019-0 Yes [id number] Take 1 [facility], 1-16 capsule by [facility] of vitamin d2, 00:00: mouth [place] 50,000 unit 00 every 4 Medic al capsule (four) Branch weeks. ergocalcife 2019-0 Yes [id number] Take 1 [facility], 1-16 capsule by [facility] of vitamin d2, 00:00: mouth [place] 50,000 unit 00 every 4 Medic al capsule (four) Branch weeks. ergocalcife 2019-0 Yes [id number] Take 1 [facility], 1-16 capsule by [facility] of vitamin d2, 00:00: mouth [place] 50,000 unit 00 every 4 Medic al capsule (four) Branch weeks. ergocalcife 2019-0 Yes [id number] Take 1 [facility], 1-16 capsule by [facility] of vitamin d2, 00:00: mouth [place] 50,000 unit 00 every 4 Medic al capsule (four) Branch weeks. ergocalcife 2019-0 Yes [id number] Take 1 [facility], 1-16 capsule by [facility]y of vitamin d2, 00:00: mouth [place] 50,000 unit 00 every 4 Medic al capsule (four) Branch weeks. ergocalcife 2019-0 Yes [id number] Take 1 [facility], 1-16 capsule by ity of vitamin d2, 00:00: mouth [place] 50,000 unit 00 every 4 Medic al capsule (four) Branch weeks. ergocalcife 2019-0 Yes [id number] Take 1 [facility], 1-16 capsule by ity of vitamin d2, 00:00: mouth [place] 50,000 unit 00 every 4 Medic al capsule (four) Branch weeks. ergocalcife 2019-0 Yes [id number] Take 1 [facility], 1-16 capsule by ity of vitamin d2, 00:00: mouth [place] 50,000 unit 00 every 4 Medic al capsule (four) Branch weeks. ergocalcife 2019-0 Yes [id number] Take 1 [facility], 1-16 capsule by [facility] of vitamin d2, 00:00: mouth [place] 50,000 unit 00 every 4 Medic al capsule (four) Branch weeks. ergocalcife 2019-0 Yes [id number] Take 1 [facility], 1-16 capsule by [facility] of vitamin d2, 00:00: mouth [place] 50,000 unit 00 every 4 Medic al capsule (four) Branch weeks. ergocalcife 2019-0 Yes [id number] Take 1 [facility], 1-16 capsule by [facility]y of vitamin d2, 00:00: mouth [place] 50,000 unit 00 every 4 Medic al capsule (four) Branch weeks. ergocalcife 2019-0 Yes [id number] Take 1 [facility], 1-16 capsule by [facility] of vitamin d2, 00:00: mouth [place] 50,000 unit 00 every 4 Medic al capsule (four) Branch weeks. ergocalcife 2019-0 Yes [id number] Take 1 [facility], 1-16 capsule by [facility] of vitamin d2, 00:00: mouth [place] 50,000 unit 00 every 4 Medic al capsule (four) Branch weeks. ergocalcife 2019-0 Yes [id number] Take 1 [facility], 1-16 capsule by [facility] of vitamin d2, 00:00: mouth [place] 50,000 unit 00 every 4 Medic al capsule (four) Branch weeks. ergocalcife 2019-0 Yes [id number] Take 1 [facility], 1-16 capsule by [facility] of vitamin d2, 00:00: mouth [place] 50,000 unit 00 every 4 Medic al capsule (four) Branch weeks. ergocalcife 2019-0 Yes [id number] Take 1 [facility], 1-16 capsule by [facility] of vitamin d2, 00:00: mouth [place] 50,000 unit 00 every 4 Medic al capsule (four) Branch weeks. ergocalcife 2019-0 Yes [id number] Take 1 [facility], 1-16 capsule by [facility] of vitamin d2, 00:00: mouth [place] 50,000 unit 00 every 4 Medic al capsule (four) Branch weeks. ergocalcife 2019-0 Yes [id number] Take 1 [facility], 1-16 capsule by [facility] of vitamin d2, 00:00: mouth [place] 50,000 unit 00 every 4 Medic al capsule (four) Branch weeks. ergocalcife 2019-0 Yes [id number] Take 1 [facility], 1-16 capsule by [facility] of vitamin d2, 00:00: mouth [place] 50,000 unit 00 every 4 Medic al capsule (four) Branch weeks. ergocalcife 2019-0 Yes [id number] Take 1 [facility], 1-16 capsule by ity of vitamin d2, 00:00: mouth [place] 50,000 unit 00 every 4 Medic al capsule (four) Branch weeks. ergocalcife 2019-0 Yes [id number] Take 1 [facility], 1-16 capsule by ity of vitamin d2, 00:00: mouth [place] 50,000 unit 00 every 4 Medic al capsule (four) Branch weeks. ergocalcife 2019-0 Yes [id number] Take 1 [facility], 1-16 capsule by ity of vitamin d2, 00:00: mouth [place] 50,000 unit 00 every 4 Medic al capsule (four) Branch weeks. ergocalcife 2019-0 Yes [id number] Take 1 [facility], 1-16 capsule by ity of vitamin d2, 00:00: mouth [place] 50,000 unit 00 every 4 Medic al capsule (four) Branch weeks. ergocalcife 2019-0 Yes [id number] Take 1 [facility], 1-16 capsule by ity of vitamin d2, 00:00: mouth [place] 50,000 unit 00 every 4 Medic al capsule (four) Branch weeks. ergocalcife 2019-0 Yes [id number] Take 1 [facility], 1-16 capsule by [facility] of vitamin d2, 00:00: mouth [place] 50,000 unit 00 every 4 Medic al capsule (four) Branch weeks. ergocalcife 2019-0 Yes [id number] Take 1 [facility], 1-16 capsule by ity of vitamin d2, 00:00: mouth [place] 50,000 unit 00 every 4 Medic al capsule (four) Branch weeks. ergocalcife 2019-0 Yes [id number] Take 1 [facility], 1-16 capsule by ity of vitamin d2, 00:00: mouth [place] 50,000 unit 00 every 4 Medic al capsule (four) Branch weeks. ergocalcife 2019-0 Yes [id number] Take 1 [facility], 1-16 capsule by ity of vitamin d2, 00:00: mouth [place] 50,000 unit 00 every 4 Medic al capsule (four) Branch weeks. ergocalcife 2019-0 Yes [id number] Take 1 [facility], 1-16 capsule by ity of vitamin d2, 00:00: mouth [place] 50,000 unit 00 every 4 Medic al capsule (four) Branch weeks. ergocalcife 2019-0 Yes [id number] Take 1 [facility], 1-16 capsule by ity of vitamin d2, 00:00: mouth [place] 50,000 unit 00 every 4 Medic al capsule (four) Branch weeks. ergocalcife 2019-0 Yes [id number] Take 1 [facility], 1-16 capsule by ity of vitamin d2, 00:00: mouth [place] 50,000 unit 00 every 4 Medic al capsule (four) Branch weeks. ergocalcife 2019-0 Yes [id number] Take 1 [facility], 1-16 capsule by ity of vitamin d2, 00:00: mouth [place] 50,000 unit 00 every 4 Medic al capsule (four) Branch weeks. ergocalcife 2019-0 Yes [id number] Take 1 [facility], 1-16 capsule by ity of vitamin d2, 00:00: mouth [place] 50,000 unit 00 every 4 Medic al capsule (four) Branch weeks. ergocalcife 2019-0 Yes [id number] Take 1 [facility], 1-16 capsule by ity of vitamin d2, 00:00: mouth [place] 50,000 unit 00 every 4 Medic al capsule (four) Branch weeks. ergocalcife 2019-0 Yes [id number] Take 1 [facility], 1-16 capsule by ity of vitamin d2, 00:00: mouth [place] 50,000 unit 00 every 4 Medic al capsule (four) Branch weeks. ergocalcife 2019-0 Yes [id number] Take 1 [facility], 1-16 capsule by ity of vitamin d2, 00:00: mouth [place] 50,000 unit 00 every 4 Medic al capsule (four) Branch weeks. ergocalcife 2019-0 Yes [id number] Take 1 [facility], 1-16 capsule by ity of vitamin d2, 00:00: mouth [place] 50,000 unit 00 every 4 Medic al capsule (four) Branch weeks. ergocalcife 2019-0 Yes [id number] Take 1 [facility] ro[facility], 1-16 capsule by ity of vitamin d2, 00:00: mouth [place] 50,000 unit 00 every 4 Medic al capsule (four) Branch weeks. ergocalcife 2019-0 Yes [id number] Take 1 [facility], 1-16 capsule by ity of vitamin d2, 00:00: mouth [place] 50,000 unit 00 every 4 Medic al capsule (four) Branch weeks. ergocalcife 2019-0 Yes [id number] Take 1 [facility], 1-16 capsule by ity of vitamin d2, 00:00: mouth [place] 50,000 unit 00 every 4 Medic al capsule (four) Branch weeks. ergocalcife 2019-0 Yes [id number] Take 1 [facility], 1-16 capsule by ity of vitamin d2, 00:00: mouth [place] 50,000 unit 00 every 4 Medic al capsule (four) Branch weeks. ergocalcife 2019-0 Yes [id number] Take 1 [facility], 1-16 capsule by ity of vitamin d2, 00:00: mouth [place] 50,000 unit 00 every 4 Medic al capsule (four) Branch weeks. ergocalcife 2019-0 Yes [id number] Take 1 [facility] ro[facility], 1-16 capsule by ity of vitamin d2, 00:00: mouth [place] 50,000 unit 00 every 4 Medic al capsule (four) Branch weeks. ergocalcife 2019-0 Yes [id number] Take 1 [facility] ro[facility], 1-16 capsule by ity of vitamin d2, 00:00: mouth [place] 50,000 unit 00 every 4 Medic al capsule (four) Branch weeks. ergocalcife 2019-0 Yes [id number] Take 1 [facility] ro[facility], 1-16 capsule by ity of vitamin d2, 00:00: mouth [place] 50,000 unit 00 every 4 Medic al capsule (four) Branch weeks. ergocalcife 2019-0 Yes [id number] Take 1 [facility] ro[facility], 1-16 capsule by ity of vitamin d2, 00:00: mouth [place] 50,000 unit 00 every 4 Medic al capsule (four) Branch weeks. ergocalcife 2019-0 Yes [id number] Take 1 [facility] rol, 1-16 capsule by ity of vitamin d2, 00:00: mouth [place] 50,000 unit 00 every 4 Medic al capsule (four) Branch weeks. ergocalcife 2019-0 Yes [id number] Take 1 [facility] rol, 1-16 capsule by ity of vitamin d2, 00:00: mouth [place] 50,000 unit 00 every 4 Medic al capsule (four) Branch weeks. ergocalcife 2019-0 Yes [id number] Take 1 [facility] rol, 1-16 capsule by ity of vitamin d2, 00:00: mouth [place] 50,000 unit 00 every 4 Medic al capsule (four) Branch weeks. ergocalcife 2019-0 Yes [id number] Take 1 [facility] rol, 1-16 capsule by ity of vitamin d2, 00:00: mouth [place] 50,000 unit 00 every 4 Medic al capsule (four) Branch weeks. ergocalcife 2019-0 Yes [id number] Take 1 [facility] rol, 1-16 capsule by ity of vitamin d2, 00:00: mouth [place] 50,000 unit 00 every 4 Medic al capsule (four) Branch weeks. ergocalcife 2019-0 Yes [id number] Take 1 [facility] rol, 1-16 capsule by ity of vitamin d2, 00:00: mouth [place] 50,000 unit 00 every 4 Medic al capsule (four) Branch weeks. ergocalcife 2019-0 Yes [id number] Take 1 [facility] rol, 1-16 capsule by ity of vitamin d2, 00:00: mouth [place] 50,000 unit 00 every 4 Medic al capsule (four) Branch weeks. ergocalcife 2019-0 Yes [id number] Take 1 [facility] rol, 1-16 capsule by ity of vitamin d2, 00:00: mouth [place] 50,000 unit 00 every 4 Medic al capsule (four) Branch weeks. ergocalcife 2019-0 Yes [id number] Take 1 [facility] ro[facility], 1-16 capsule by ity of vitamin d2, 00:00: mouth [place] 50,000 unit 00 every 4 Medic al capsule (four) Branch weeks. ergocalcife 2019-0 Yes [id number] Take 1 [facility] ro[facility], 1-16 capsule by ity of vitamin d2, 00:00: mouth [place] 50,000 unit 00 every 4 Medic al capsule (four) Branch weeks. ergocalcife 2019-0 Yes [id number] Take 1 [facility] ro[facility], 1-16 capsule by ity of vitamin d2, 00:00: mouth [place] 50,000 unit 00 every 4 Medic al capsule (four) Branch weeks. ergocalcife 2019-0 Yes [id number] Take 1 [facility] rol, 1-16 capsule by ity of vitamin d2, 00:00: mouth [place] 50,000 unit 00 every 4 Medic al capsule (four) Branch weeks. ergocalcife 2019-0 Yes [id number] Take 1 [facility] rol, 1-16 capsule by ity of vitamin d2, 00:00: mouth [place] 50,000 unit 00 every 4 Medic al capsule (four) Branch weeks. ergocalcife 2019-0 Yes [id number] Take 1 [facility] rol, 1-16 capsule by ity of vitamin d2, 00:00: mouth [place] 50,000 unit 00 every 4 Medic al capsule (four) Branch weeks. ergocalcife 2019-0 Yes [id number] Take 1 [facility] rol, 1-16 capsule by ity of vitamin d2, 00:00: mouth [place] 50,000 unit 00 every 4 Medic al capsule (four) Branch weeks. ergocalcife 2019-0 Yes [id number] Take 1 [facility] rol, 1-16 capsule by ity of vitamin d2, 00:00: mouth [place] 50,000 unit 00 every 4 Medic al capsule (four) Branch weeks. ergocalcife 2019-0 Yes [id number] Take 1 [facility] rol, 1-16 capsule by ity of vitamin d2, 00:00: mouth [place] 50,000 unit 00 every 4 Medic al capsule (four) Branch weeks. ergocalcife 2019-0 Yes [id number] Take 1 [facility] rol, 1-16 capsule by ity of vitamin d2, 00:00: mouth [place] 50,000 unit 00 every 4 Medic al capsule (four) Branch weeks. ergocalcife 2019-0 Yes [id number] Take 1 [facility] rol, 1-16 capsule by ity of vitamin d2, 00:00: mouth [place] 50,000 unit 00 every 4 Medic al capsule (four) Branch weeks. ergocalcife 2019-0 Yes [id number] Take 1 [facility] rol, 1-16 capsule by ity of vitamin d2, 00:00: mouth [place] 50,000 unit 00 every 4 Medic al capsule (four) Branch weeks. ergocalcife 2019-0 Yes [id number] Take 1 [facility] rol, 1-16 capsule by ity of vitamin d2, 00:00: mouth [place] 50,000 unit 00 every 4 Medic al capsule (four) Branch weeks. ergocalcife 2019-0 Yes [id number] Take 1 [facility] rol, 1-16 capsule by ity of vitamin d2, 00:00: mouth [place] 50,000 unit 00 every 4 Medic al capsule (four) Branch weeks. ergocalcife 2019-0 Yes [id number] Take 1 [facility] rol, 1-16 capsule by ity of vitamin d2, 00:00: mouth [place] 50,000 unit 00 every 4 Medic al capsule (four) Branch weeks. ergocalcife 2019-0 Yes [id number] Take 1 [facility] rol, 1-16 capsule by ity of vitamin d2, 00:00: mouth [place] 50,000 unit 00 every 4 Medic al capsule (four) Branch weeks. ergocalcife 2019-0 Yes [id number] Take 1 [facility] rol, 1-16 capsule by ity of vitamin d2, 00:00: mouth [place] 50,000 unit 00 every 4 Medic al capsule (four) Branch weeks. ergocalcife 2019-0 Yes [id number] Take 1 [facility] rol, 1-16 capsule by ity of vitamin d2, 00:00: mouth [place] 50,000 unit 00 every 4 Medic al capsule (four) Branch weeks. ergocalcife 2019-0 Yes [id number] Take 1 [facility] rol, 1-16 capsule by ity of vitamin d2, 00:00: mouth [place] 50,000 unit 00 every 4 Medic al capsule (four) Branch weeks. ergocalcife 2019-0 Yes [id number] Take 1 [facility] rol, 1-16 capsule by ity of vitamin d2, 00:00: mouth [place] 50,000 unit 00 every 4 Medic al capsule (four) Branch weeks. ergocalcife 2019-0 Yes [id number] Take 1 [facility] rol, 1-16 capsule by ity of vitamin d2, 00:00: mouth [place] 50,000 unit 00 every 4 Medic al capsule (four) Branch weeks. ergocalcife 2019-0 Yes [id number] Take 1 [facility] rol, 1-16 capsule by ity of vitamin d2, 00:00: mouth [place] 50,000 unit 00 every 4 Medic al capsule (four) Branch weeks. ergocalcife 2019-0 Yes [id number] Take 1 [facility] rol, 1-16 capsule by ity of vitamin d2, 00:00: mouth [place] 50,000 unit 00 every 4 Medic al capsule (four) Branch weeks. ergocalcife 2019-0 Yes [id number] Take 1 [facility] rol, 1-16 capsule by ity of vitamin d2, 00:00: mouth [place] 50,000 unit 00 every 4 Medic al capsule (four) Branch weeks. ergocalcife 2019-0 Yes [id number] Take 1 [facility] rol, 1-16 capsule by ity of vitamin d2, 00:00: mouth [place] 50,000 unit 00 every 4 Medic al capsule (four) Branch weeks. ergocalcife 2019-0 Yes [id number] Take 1 [facility] rol, 1-16 capsule by ity of vitamin d2, 00:00: mouth [place] 50,000 unit 00 every 4 Medic al capsule (four) Branch weeks. ergocalcife 2019-0 Yes [id number] Take 1 [facility] ro[facility], 1-16 capsule by ity of vitamin d2, 00:00: mouth [place] 50,000 unit 00 every 4 Medic al capsule (four) Branch weeks. ergocalcife 2019-0 Yes [id number] Take 1 [facility], 1-16 capsule by [facility]y of vitamin d2, 00:00: mouth [place] 50,000 unit 00 every 4 Medic al capsule (four) Branch weeks. ergocalcife 2019-0 Yes [id number] Take 1 [facility] ro[facility], 1-16 capsule by ity of vitamin d2, 00:00: mouth [place] 50,000 unit 00 every 4 Medic al capsule (four) Branch weeks. ergocalcife 2019-0 Yes [id number] Take 1 [facility] ro[facility], 1-16 capsule by ity of vitamin d2, 00:00: mouth [place] 50,000 unit 00 every 4 Medic al capsule (four) Branch weeks. ergocalcife 2019-0 Yes [id number] Take 1 [facility] ro[facility], 1-16 capsule by ity of vitamin d2, 00:00: mouth [place] 50,000 unit 00 every 4 Medic al capsule (four) Branch weeks. magnesium 2018-0 Yes TK 1 T PO [facility] vers oxide 400 2-08 D ity of mg tablet 00:00: [place] 00 [facility] magnesium 2018-0 Yes TK 1 T PO [facility] vers oxide 400 2-08 D ity of mg tablet 00:00: 00 [facility] magnesium 2018-0 Yes TK 1 T PO [facility] vers oxide 400 2-08 D ity of mg tablet 00:00: [facility] magnesium 2018-0 Yes TK 1 T PO [facility] vers oxide 400 2-08 D ity of mg tablet 00:00: [place] 00 [facility] magnesium 2018-0 Yes TK 1 T PO [facility] vers oxide 400 2-08 D ity of mg tablet 00:00: [place] 00 [facility] magnesium 2018-0 Yes TK 1 T PO [facility] vers oxide 400 2-08 D ity of mg tablet 00:00: [place] 00 [facility] magnesium 2018-0 Yes TK 1 T PO [facility] vers oxide 400 2-08 D ity of mg tablet 00:00: [place] 00 [facility] magnesium 2018-0 Yes TK 1 T PO [facility] vers oxide 400 2-08 D ity of mg tablet 00:00: [place] [address] [facility] magnesium 2018-0 Yes TK 1 T PO [facility] vers oxide 400 2-08 D ity of mg tablet 00:00: [place] [address] [facility] magnesium 2018-0 Yes TK 1 T PO [facility] vers oxide 400 2-08 D ity of mg tablet 00:00: [place] [address] [facility] magnesium 2018-0 Yes TK 1 T PO [facility] vers oxide 400 2-08 D ity of mg tablet 00:00: [place] [address] [facility] magnesium 2018-0 Yes TK 1 T PO [facility] vers oxide 400 2-08 D ity of mg tablet 00:00: [place] [address] [facility] magnesium 2018-0 Yes TK 1 T PO [facility] vers oxide 400 2-08 D ity of mg tablet 00:00: [place] [address] [facility] magnesium 2018-0 Yes TK 1 T PO [facility] vers oxide 400 2-08 D ity of mg tablet 00:00: [place] [address] [facility] magnesium 2018-0 Yes TK 1 T PO [facility] vers oxide 400 2-08 D ity of mg tablet 00:00: [place] [address] [facility] magnesium 2018-0 Yes TK 1 T PO [facility] vers oxide 400 2-08 D ity of mg tablet 00:00: [place] 00 [facility] magnesium 2018-0 Yes TK 1 T PO [facility] vers oxide 400 2-08 D ity of mg tablet 00:00: [place] [address] [facility] magnesium 2018-0 Yes TK 1 T PO [facility] vers oxide 400 2-08 D ity of mg tablet 00:00: [place] [address] [facility] magnesium 2018-0 Yes TK 1 T PO [facility] vers oxide 400 2-08 D ity of mg tablet 00:00: [place] [address] [facility] magnesium 2018-0 Yes TK 1 T PO [facility] vers oxide 400 2-08 D ity of mg tablet 00:00: [place] [address] [facility] magnesium 2018-0 Yes TK 1 T PO [facility] vers oxide 400 2-08 D ity of mg tablet 00:00: [place] 00 [facility] magnesium 2018-0 Yes TK 1 T PO [facility] vers oxide 400 2-08 D ity of mg tablet 00:00: [place] [facility] magnesium 2018-0 Yes TK 1 T PO [facility] vers oxide 400 2-08 D ity of mg tablet 00:00: [place] [facility] magnesium 2018-0 Yes TK 1 T PO [facility] vers oxide 400 2-08 D ity of mg tablet 00:00: [place] [facility] magnesium 2018-0 Yes TK 1 T PO [facility] vers oxide 400 2-08 D ity of mg tablet 00:00: [place] [address] [facility] magnesium 2018-0 Yes TK 1 T PO [facility] vers oxide 400 2-08 D ity of mg tablet 00:00: [place] [address] [facility] magnesium 2018-0 Yes TK 1 T PO [facility] vers oxide 400 2-08 D ity of mg tablet 00:00: [place] [address] [facility] magnesium 2018-0 Yes TK 1 T PO [facility] vers oxide 400 2-08 D ity of mg tablet 00:00: [place] [address] [facility] magnesium 2018-0 Yes TK 1 T PO [facility] vers oxide 400 2-08 D ity of mg tablet 00:00: [place] [address] [facility] magnesium 2018-0 Yes TK 1 T PO [facility] vers oxide 400 2-08 D ity of mg tablet 00:00: [address] Branch magnesium 2018-0 Yes TK 1 T PO [facility] vers oxide 400 2-08 D ity of mg tablet 00:00: [place] [address] [facility] magnesium 2018-0 Yes TK 1 T PO [facility] vers oxide 400 2-08 D ity of mg tablet 00:00: [place] [address] [facility] magnesium 2018-0 Yes TK 1 T PO [facility] vers oxide 400 2-08 D ity of mg tablet 00:00: [place] [address] [facility] magnesium 2018-0 Yes TK 1 T PO [facility] vers oxide 400 2-08 D ity of mg tablet 00:00: [place] [address] [facility] magnesium 2018-0 Yes TK 1 T PO [facility] vers oxide 400 2-08 D ity of mg tablet 00:00: [place] [address] [facility] magnesium 2018-0 Yes TK 1 T PO [facility] vers oxide 400 2-08 D ity of mg tablet 00:00: [place] [address] [facility] magnesium 2018-0 Yes TK 1 T PO [facility] vers oxide 400 2-08 D ity of mg tablet 00:00: [place] [address] [facility] magnesium 2018-0 Yes TK 1 T PO [facility] vers oxide 400 2-08 D ity of mg tablet 00:00: [place] 00 [facility] magnesium 2018-0 Yes TK 1 T PO [facility] vers oxide 400 2-08 D ity of mg tablet 00:00: [place] 00 [facility] magnesium 2018-0 Yes TK 1 T PO [facility] vers oxide 400 2-08 D ity of mg tablet 00:00: [place] 00 [facility] magnesium 2018-0 Yes TK 1 T PO [facility] vers oxide 400 2-08 D ity of mg tablet 00:00: [place] 00 [facility] magnesium 2018-0 Yes TK 1 T PO [facility] vers oxide 400 2-08 D ity of mg tablet 00:00: [place] [address] [facility] Branch magnesium 2018-0 Yes TK 1 T PO [facility] vers oxide 400 2-08 D ity of mg tablet 00:00: [place] [address] [facility] Branch magnesium 2018-0 Yes TK 1 T PO [facility] vers oxide 400 2-08 D ity of mg tablet 00:00: [place] [address] [facility] Branch magnesium 2018-0 Yes TK 1 T PO [facility] vers oxide 400 2-08 D ity of mg tablet 00:00: [place] [facility] magnesium 2018-0 Yes TK 1 T PO [facility] vers oxide 400 2-08 D ity of mg tablet 00:00: [place] [address] [facility] magnesium 2018-0 Yes TK 1 T PO [facility] vers oxide 400 2-08 D ity of mg tablet 00:00: [place] 00 [facility] magnesium 2018-0 Yes TK 1 T PO [facility] vers oxide 400 2-08 D ity of mg tablet 00:00: [place] [address] [facility] Branch magnesium 2018-0 Yes TK 1 T PO [facility] vers oxide 400 2-08 D ity of mg tablet 00:00: [place] 00 [facility] magnesium 2018-0 Yes TK 1 T PO [facility] vers oxide 400 2-08 D ity of mg tablet 00:00: [place] 00 [facility] magnesium 2018-0 Yes TK 1 T PO [facility] vers oxide 400 2-08 D ity of mg tablet 00:00: [place] 00 [facility] magnesium 2018-0 Yes TK 1 T PO [facility] vers oxide 400 2-08 D ity of mg tablet 00:00: [place] 00 [facility] magnesium 2018-0 Yes TK 1 T PO [facility] vers oxide 400 2-08 D ity of mg tablet 00:00: [place] [address] [facility] magnesium 2018-0 Yes TK 1 T PO [facility] vers oxide 400 2-08 D ity of mg tablet 00:00: [place] 00 [facility] magnesium 2018-0 Yes TK 1 T PO [facility] vers oxide 400 2-08 D ity of mg tablet 00:00: [place] 00 [facility] magnesium 2018-0 Yes TK 1 T PO [facility] vers oxide 400 2-08 D ity of mg tablet 00:00: [place] 00 [facility] magnesium 2018-0 Yes TK 1 T PO [facility] vers oxide 400 2-08 D ity of mg tablet 00:00: [place] 00 [facility] magnesium 2018-0 Yes TK 1 T PO [facility] vers oxide 400 2-08 D ity of mg tablet 00:00: [place] [address] [facility] magnesium 2018-0 Yes TK 1 T PO [facility] vers oxide 400 2-08 D ity of mg tablet 00:00: [place] [address] [facility] magnesium 2018-0 Yes TK 1 T PO [facility] vers oxide 400 2-08 D ity of mg tablet 00:00: [place] [address] [facility] magnesium 2018-0 Yes TK 1 T PO [facility] vers oxide 400 2-08 D ity of mg tablet 00:00: [place] [address] [facility] magnesium 2018-0 Yes TK 1 T PO [facility] vers oxide 400 2-08 D ity of mg tablet 00:00: [place] [address] [facility] magnesium 2018-0 Yes TK 1 T PO [facility] vers oxide 400 2-08 D ity of mg tablet 00:00: [place] [address] [facility] magnesium 2018-0 Yes TK 1 T PO [facility] vers oxide 400 2-08 D ity of mg tablet 00:00: [place] [address] [facility] magnesium 2018-0 Yes TK 1 T PO [facility] vers oxide 400 2-08 D ity of mg tablet 00:00: [place] [address] [facility] magnesium 2018-0 Yes TK 1 T PO [facility] vers oxide 400 2-08 D ity of mg tablet 00:00: [place] 00 [facility] magnesium 2018-0 Yes TK 1 T PO [facility] vers oxide 400 2-08 D ity of mg tablet 00:00: [place] [address] [facility] magnesium 2018-0 Yes TK 1 T PO [facility] vers oxide 400 2-08 D ity of mg tablet 00:00: [place] [address] [facility] Branch magnesium 2018-0 Yes TK 1 T PO [facility] vers oxide 400 2-08 D ity of mg tablet 00:00: [place] [address] [facility] magnesium 2018-0 Yes TK 1 T PO [facility] vers oxide 400 2-08 D ity of mg tablet 00:00: [place] [address] [facility] magnesium 2018-0 Yes TK 1 T PO [facility] vers oxide 400 2-08 D ity of mg tablet 00:00: [place] 00 [facility] magnesium 2018-0 Yes TK 1 T PO [facility] vers oxide 400 2-08 D ity of mg tablet 00:00: [place] [facility] magnesium 2018-0 Yes TK 1 T PO [facility] vers oxide 400 2-08 D ity of mg tablet 00:00: [place] [facility] magnesium 2018-0 Yes TK 1 T PO [facility] vers oxide 400 2-08 D ity of mg tablet 00:00: [place] [facility] magnesium 2018-0 Yes TK 1 T PO [facility] vers oxide 400 2-08 D ity of mg tablet 00:00: [place] [address] [facility] magnesium 2018-0 Yes TK 1 T PO [facility] vers oxide 400 2-08 D ity of mg tablet 00:00: [place] [address] [facility] magnesium 2018-0 Yes TK 1 T PO [facility] vers oxide 400 2-08 D ity of mg tablet 00:00: [place] [address] [facility] magnesium 2018-0 Yes TK 1 T PO [facility] vers oxide 400 2-08 D ity of mg tablet 00:00: [place] [address] [facility] magnesium 2018-0 Yes TK 1 T PO [facility] vers oxide 400 2-08 D ity of mg tablet 00:00: [place] [address] [facility] magnesium 2018-0 Yes TK 1 T PO [facility] vers oxide 400 2-08 D ity of mg tablet 00:00: [address] Branch magnesium 2018-0 Yes TK 1 T PO [facility] vers oxide 400 2-08 D ity of mg tablet 00:00: [place] [address] [facility] magnesium 2018-0 Yes TK 1 T PO [facility] vers oxide 400 2-08 D ity of mg tablet 00:00: [place] [address] [facility] magnesium 2018-0 Yes TK 1 T PO [facility] vers oxide 400 2-08 D ity of mg tablet 00:00: [place] [address] [facility] magnesium 2018-0 Yes TK 1 T PO [facility] vers oxide 400 2-08 D ity of mg tablet 00:00: [place] [address] [facility] magnesium 2018-0 Yes TK 1 T PO [facility] vers oxide 400 2-08 D ity of mg tablet 00:00: [place] [address] [facility] magnesium 2018-0 Yes TK 1 T PO [facility] vers oxide 400 2-08 D ity of mg tablet 00:00: [place] [address] [facility] magnesium 2018-0 Yes TK 1 T PO [facility] vers oxide 400 2-08 D ity of mg tablet 00:00: [place] [address] [facility] magnesium 2018-0 Yes TK 1 T PO [facility] vers oxide 400 2-08 D ity of mg tablet 00:00: [place] 00 [facility] magnesium 2018-0 Yes TK 1 T PO [facility] vers oxide 400 2-08 D ity of mg tablet 00:00: [place] 00 [facility] magnesium 2018-0 Yes TK 1 T PO [facility] vers oxide 400 2-08 D ity of mg tablet 00:00: [place] 00 [facility] magnesium 2018-0 Yes TK 1 T PO [facility] vers oxide 400 2-08 D ity of mg tablet 00:00: [place] 00 [facility] magnesium 2018-0 Yes TK 1 T PO [facility] vers oxide 400 2-08 D ity of mg tablet 00:00: [place] 00 [facility] magnesium 2018-0 Yes TK 1 T PO [facility] vers oxide 400 2-08 D ity of mg tablet 00:00: [place] 00 [facility] magnesium 2018-0 Yes TK 1 T PO [facility] vers oxide 400 2-08 D ity of mg tablet 00:00: [place] 00 [facility] magnesium 2018-0 Yes TK 1 T PO [facility] vers oxide 400 2-08 D ity of mg tablet 00:00: [place] 00 [facility] Mucus 2017-0 Yes Use as [facility] Clearing 02-07 directed ity of Device 00:00: [place] (FLUTTER) 00 [facility] Mucus 2017-0 Yes Use as [facility] Clearing 02-07 directed ity of Device 00:00: [place] (FLUTTER) 00 [facility] Mucus 2017-0 Yes Use as [facility] Clearing 02-07 directed ity of Device 00:00: [place] (TTER) 00 [facility] Mucus 2017-0 Yes Use as [facility] Clearing 02-07 directed ity of Device 00:00: [place] (FLUTTER) 00 [facility] Mucus 2017-0 Yes Use as [facility] Clearing 02-07 directed ity of Device 00:00: [place] (FLUTTER) 00 [facility] Mucus 2017-0 Yes Use as [facility] Clearing 02-07 directed ity of Device 00:00: [place] (FLUTTER) 00 [facility] Mucus 2017-0 Yes Use as [facility] Clearing 02-07 directed ity of Device 00:00: [place] (FLUTTER) 00 [facility] Mucus 2017-0 Yes Use as [facility] Clearing 7 directed ity of Device 00:00: [place] (FLUTTER) 00 [facility] Mucus 2017-0 Yes Use as [facility] Clearing 7 directed ity of Device 00:00: [place] (FLUTTER) 00 [facility] Mucus 2017-0 Yes Use as [facility] Clearing 7 directed ity of Device 00:00: [place] (FLUTTER) 00 [facility] Mucus 2017-0 Yes Use as [facility] Clearing 7 directed ity of Device 00:00: [place] (FLUTTER) 00 [facility] Mucus 2017-0 Yes Use as [facility] Clearing 7 directed ity of Device 00:00: [place] (FLUTTER) 00 [facility] Mucus 2017-0 Yes Use as [facility] Clearing 7 directed ity of Device 00:00: [place] (FLUTTER) 00 [facility] Mucus 2017-0 Yes Use as [facility] Clearing 02-07 directed ity of Device 00:00: [place] (FLUTTER) 00 [facility] Mucus 2017-0 Yes Use as [facility] Clearing 02-07 directed ity of Device 00:00: [place] (FLUTTER) 00 [facility] Mucus 2017-0 Yes Use as [facility] Clearing 02-07 directed ity of Device 00:00: [place] (FLUTTER) 00 [facility] Mucus 2017-0 Yes Use as [facility] Clearing 02-07 directed ity of Device 00:00: [place] (FLUTTER) 00 [facility] Mucus 2017-0 Yes Use as [facility] Clearing 02-07 directed ity of Device 00:00: [place] (FLUTTER) 00 [facility] Mucus 2017-0 Yes Use as [facility] Clearing 02-07 directed ity of Device 00:00: [place] (FLUTTER) 00 [facility] Mucus 2017-0 Yes Use as [facility] Clearing 7 directed ity of Device 00:00: [place] (FLUTTER) 00 [facility] Mucus 2017-0 Yes Use as [facility] Clearing 7 directed ity of Device 00:00: [place] (FLUTTER) 00 [facility] Mucus 2017-0 Yes Use as [facility] Clearing 7 directed ity of Device 00:00: [place] (FLUTTER) 00 [facility] Mucus 2017-0 Yes Use as [facility] Clearing 7 directed ity of Device 00:00: [place] (FLUTTER) 00 [facility] Mucus 2017-0 Yes Use as [facility] Clearing 7 directed ity of Device 00:00: [place] (FLUTTER) 00 [facility] Mucus 2017-0 Yes Use as [facility] Clearing 7 directed ity of Device 00:00: [place] (FLUTTER) 00 [facility] Mucus 2017-0 Yes Use as [facility] Clearing 7 directed ity of Device 00:00: [place] (FLUTTER) 00 [facility] Mucus 2017-0 Yes Use as [facility] Clearing 02-07 directed ity of Device 00:00: [place] (FLUTTER) 00 [facility] Mucus 2017-0 Yes Use as [facility] Clearing 02-07 directed ity of Device 00:00: [place] (FLUTTER) 00 [facility] Mucus 2017-0 Yes Use as [facility] Clearing 7 directed ity of Device 00:00: [place] (FLUTTER) 00 [facility] Mucus 2017-0 Yes Use as [facility] Clearing 02-07 directed ity of Device 00:00: [place] (FLUTTER) 00 [facility] Mucus 2017-0 Yes Use as [facility] Clearing 02-07 directed ity of Device 00:00: [place] (FLUTTER) 00 [facility] Mucus 2017-0 Yes Use as [facility] Clearing 02-07 directed ity of Device 00:00: [place] (FLUTTER) 00 [facility] Mucus 2017-0 Yes Use as [facility] Clearing 02-07 directed ity of Device 00:00: [place] (FLUTTER) 00 [facility] Mucus 2017-0 Yes Use as [facility] Clearing 02-07 directed ity of Device 00:00: [place] (FLUTTER) 00 [facility] Mucus 2017-0 Yes Use as [facility] Clearing 02-07 directed ity of Device 00:00: [place] (FLUTTER) 00 [facility] Mucus 2017-0 Yes Use as [facility] Clearing 02-07 directed ity of Device 00:00: [place] (FLUTTER) 00 [facility] Mucus 2017-0 Yes Use as [facility] Clearing 7 directed ity of Device 00:00: [place] (FLUTTER) 00 [facility] Mucus 2017-0 Yes Use as [facility] Clearing 02-07 directed ity of Device 00:00: [place] (FLUTTER) 00 [facility] Mucus 2017-0 Yes Use as [facility] Clearing 7 directed ity of Device 00:00: [place] (FLUTTER) 00 [facility] Mucus 2017-0 Yes Use as [facility] Clearing 7 directed ity of Device 00:00: [place] (FLUTTER) 00 [facility] Mucus 2017-0 Yes Use as [facility] Clearing 7 directed ity of Device 00:00: [place] (FLUTTER) 00 [facility] Mucus 2017-0 Yes Use as [facility] Clearing 02-07 directed ity of Device 00:00: [place] (FLUTTER) 00 [facility] Mucus 2017-0 Yes Use as [facility] Clearing 02-07 directed ity of Device 00:00: [place] (FLUTTER) 00 [facility] Mucus 2017-0 Yes Use as [facility] Clearing 02-07 directed ity of Device 00:00: [place] (FLUTTER) 00 [facility] Mucus 2017-0 Yes Use as [facility] Clearing 02-07 directed ity of Device 00:00: [place] (FLUTTER) 00 [facility] Mucus 2017-0 Yes Use as [facility] Clearing 02-07 directed ity of Device 00:00: [place] (FLUTTER) 00 [facility] Mucus 2017-0 Yes Use as [facility] Clearing 02-07 directed ity of Device 00:00: [place] (FLUTTER) 00 [facility] Mucus 2017-0 Yes Use as [facility] Clearing 02-07 directed ity of Device 00:00: [place] (FLUTTER) 00 [facility] Mucus 2017-0 Yes Use as [facility] Clearing 02-07 directed ity of Device 00:00: [place] (FLUTTER) 00 [facility] Mucus 2017-0 Yes Use as [facility] Clearing 02-07 directed ity of Device 00:00: [place] (FLUTTER) 00 [facility] Mucus 2017-0 Yes Use as [facility] Clearing 02-07 directed ity of Device 00:00: [place] (FLUTTER) 00 [facility] Mucus 2017-0 Yes Use as [facility] Clearing 02-07 directed ity of Device 00:00: [place] (FLUTTER) 00 [facility] Mucus 2017-0 Yes Use as [facility] Clearing 02-07 directed ity of Device 00:00: [place] (FLUTTER) 00 [facility] Mucus 2017-0 Yes Use as [facility] Clearing 02-07 directed ity of Device 00:00: [place] (FLUTTER) 00 [facility] Mucus 2017-0 Yes Use as [facility] Clearing 7 directed ity of Device 00:00: [place] (FLUTTER) 00 [facility] Mucus 2017-0 Yes Use as [facility] Clearing 02-07 directed ity of Device 00:00: [place] (FLUTTER) 00 [facility] Mucus 2017-0 Yes Use as [facility] Clearing 7 directed ity of Device 00:00: [place] (FLUTTER) 00 [facility] Mucus 2017-0 Yes Use as [facility] Clearing 02-07 directed ity of Device 00:00: [place] (FLUTTER) 00 [facility] Mucus 2017-0 Yes Use as [facility] Clearing 02-07 directed ity of Device 00:00: [place] (FLUTTER) 00 [facility] Mucus 2017-0 Yes Use as [facility] Clearing 02-07 directed ity of Device 00:00: [place] (FLUTTER) 00 [facility] Mucus 2017-0 Yes Use as [facility] Clearing 02-07 directed ity of Device 00:00: [place] (FLUTTER) 00 [facility] Mucus 2017-0 Yes Use as [facility] Clearing 02-07 directed ity of Device 00:00: [place] (FLUTTER) 00 [facility] Mucus 2017-0 Yes Use as [facility] Clearing 02-07 directed ity of Device 00:00: [place] (FLUTTER) 00 [facility] Mucus 2017-0 Yes Use as [facility] Clearing 02-07 directed ity of Device 00:00: [place] (FLUTTER) 00 [facility] Mucus 2017-0 Yes Use as [facility] Clearing 02-07 directed ity of Device 00:00: [place] (FLUTTER) 00 [facility] Mucus 2017-0 Yes Use as [facility] Clearing 02-07 directed ity of Device 00:00: [place] (FLUTTER) 00 [facility] Mucus 2017-0 Yes Use as [facility] Clearing 02-07 directed ity of Device 00:00: [place] (FLUTTER) 00 [facility] Mucus 2017-0 Yes Use as [facility] Clearing 02-07 directed ity of Device 00:00: [place] (FLUTTER) 00 [facility] Mucus 2017-0 Yes Use as [facility] Clearing 02-07 directed ity of Device 00:00: [place] (FLUTTER) 00 [facility] Mucus 2017-0 Yes Use as [facility] Clearing 02-07 directed ity of Device 00:00: [place] (FLUTTER) 00 [facility] Mucus 2017-0 Yes Use as [facility] Clearing 02-07 directed ity of Device 00:00: [place] (FLUTTER) 00 [facility] Mucus 2017-0 Yes Use as [facility] Clearing 02-07 directed ity of Device 00:00: [place] (FLUTTER) 00 [facility] Mucus 2017-0 Yes Use as [facility] Clearing 02-07 directed ity of Device 00:00: [place] (FLUTTER) 00 [facility] Mucus 2017-0 Yes Use as [facility] Clearing 02-07 directed ity of Device 00:00: [place] (FLUTTER) 00 [facility] Mucus 2017-0 Yes Use as [facility] Clearing 02-07 directed ity of Device 00:00: [place] (FLUTTER) 00 [facility] Mucus 2017-0 Yes Use as [facility] Clearing 02-07 directed ity of Device 00:00: [place] (FLUTTER) 00 [facility] Mucus 2017-0 Yes Use as [facility] Clearing 02-07 directed ity of Device 00:00: [place] (FLUTTER) 00 [facility] Mucus 2017-0 Yes Use as [facility] Clearing 02-07 directed ity of Device 00:00: [place] (FLUTTER) 00 [facility] Mucus 2017-0 Yes Use as [facility] Clearing 02-07 directed ity of Device 00:00: [place] (FLUTTER) 00 [facility] Mucus 2017-0 Yes Use as [facility] Clearing 02-07 directed ity of Device 00:00: [place] (FLUTTER) 00 [facility] Mucus 2017-0 Yes Use as [facility] Clearing 02-07 directed ity of Device 00:00: [place] (FLUTTER) 00 [facility] Mucus 2017-0 Yes Use as [facility] Clearing 02-07 directed ity of Device 00:00: [place] (FLUTTER) 00 [facility] Mucus 2017-0 Yes Use as [facility] Clearing 02-07 directed ity of Device 00:00: [place] (FLUTTER) 00 [facility] Mucus 2017-0 Yes Use as [facility] Clearing 02-07 directed ity of Device 00:00: [place] (FLUTTER) 00 [facility] Mucus 2017-0 Yes Use as [facility] Clearing 02-07 directed ity of Device 00:00: [place] (FLUTTER) 00 [facility] Mucus 2017-0 Yes Use as [facility] Clearing 02-07 directed ity of Device 00:00: [place] (FLUTTER) 00 [facility] Mucus 2017-0 Yes Use as [facility] Clearing 02-07 directed ity of Device 00:00: [place] (FLUTTER) 00 [facility] Mucus 2017-0 Yes Use as [facility] Clearing 02-07 directed ity of Device 00:00: [place] (FLUTTER) 00 [facility] Mucus 2017-0 Yes Use as [facility] Clearing 02-07 directed ity of Device 00:00: [place] (FLUTTER) 00 [facility] Mucus 2017-0 Yes Use as [facility] Clearing 02-07 directed ity of Device 00:00: [place] (FLUTTER) [facility] Mucus 2017-0 Yes Use as [facility] Clearing 7 directed ity of Device 00:00: [place] (FLUTTER) [facility] Mucus 2017-0 Yes Use as [facility] Clearing 7 directed ity of Device 00:00: [place] (FLUTTER) [facility] Mucus 2017-0 Yes Use as [facility] Clearing 7 directed ity of Device 00:00: [place] (FLUTTER) [facility] Mucus 2017-0 Yes Use as [facility] Clearing 7 directed ity of Device 00:00: [place] (FLUTTER) [facility] Mucus 2017-0 Yes Use as [facility] Clearing 7 directed ity of Device 00:00: [place] (FLUTTER) 00 [facility] mupirocin 2017-0 Yes [id number] Apply to [facility] (BACTROBAN) 6-12 area(s) ity o f 2 % 00:00: daily. [place] ointment 00 [facility] mupirocin 2017-0 Yes [id number] Apply to [facility] (BACTROBAN) 6-12 area(s) ity o f 2 % 00:00: daily. [place] ointment 00 [facility] mupirocin 2017-0 Yes [id number] Apply to [facility] (BACTROBAN) 6-12 area(s) ity o f 2 % 00:00: daily. [place] ointment 00 [facility] mupirocin 2017-0 Yes [id number] Apply to [facility] (BACTROBAN) 6-12 area(s) ity o f 2 % 00:00: daily. [place] ointment 00 [facility] mupirocin 2017-0 Yes [id number] Apply to [facility] (BACTROBAN) 6-12 area(s) ity o f 2 % 00:00: daily. [place] ointment 00 [facility] mupirocin 2017-0 Yes [id number] Apply to [facility] (BACTROBAN) 6-12 area(s) ity o f 2 % 00:00: daily. [place] ointment 00 [facility] mupirocin 2017-0 Yes [id number] Apply to [facility] (BACTROBAN) 6-12 area(s) ity o f 2 % 00:00: daily. [place] ointment 00 [facility] mupirocin 2017-0 Yes [id number] Apply to [facility] (BACTROBAN) 6-12 area(s) ity o f 2 % 00:00: daily. [place] ointment 00 [facility] mupirocin 0 Yes [id number] Apply to [facility] (BACTROBAN) 6-12 area(s) ity o f 2 % 00:00: daily. [place] ointment 00 [facility] mupirocin 0 Yes [id number] Apply to [facility] (BACTROBAN) 6-12 area(s) ity o f 2 % 00:00: daily. [place] ointment 00 [facility] mupirocin Yes [id number] Apply to [facility] (BACTROBAN) 6-12 area(s) ity o f 2 % 00:00: daily. [place] ointment [facility] mupirocin Yes [id number] [facility] to [facility] 6-12 area(s) ity o f 2 % 00:00: daily. [place] ointment [facility] mupirocin Yes [id number] Apply to [facility] ([facility]) 6-12 area(s) ity o f 2 % 00:00: daily. [place] [facility]int[facility] mupirocin 2016-0 Yes [id number] Apply to [facility] ([facility]) 6-12 area(s) ity o f 2 % 00:00: daily. [place] ointment [facility] mupirocin 2016-0 Yes [id number] Apply to [facility] ([facility]) 6-12 area(s) ity o f 2 % 00:00: daily. [place] ointment 00 [facility] mupirocin 0 Yes [id number] Apply to [facility] ([facility]) 6-12 area(s) ity o f 2 % 00:00: daily. [place] ointment 00 [facility] mupirocin 2017-0 Yes [id number] Apply to [facility] ([facility]) 6-12 area(s) ity o f 2 % 00:00: daily. [place] ointment 00 [facility] mupirocin 2016-0 Yes [id number] Apply to [facility] ([facility]) 6-12 area(s) ity o f 2 % 00:00: daily. [place] ointment 00 [facility] mupirocin 2017- Yes [id number] Apply to [facility] ([facility]) 6-12 area(s) ity o f 2 % 00:00: daily. [place] ointment 00 [facility] mupirocin 20170 Yes [id number] Apply to [facility] ([facility]) 6-12 area(s) ity o f 2 % 00:00: daily. [place] ointment 00 [facility] mupirocin 2016-0 Yes [id number] Apply to [facility] ([facility]) 6-12 area(s) ity o f 2 % 00:00: daily. [place] ointment 00 [facility] mupirocin Yes [id number] Apply to [facility] ([facility]) 6-12 area(s) ity o f 2 % 00:00: daily. [place] ointment 00 [facility] mupirocin Yes [id number] Apply to [facility] ([facility]) 6-12 area(s) ity o f 2 % 00:00: daily. [place] ointment 00 [facility] mupirocin Yes [id number] Apply to [facility] ([facility]) 6-12 area(s) ity o f 2 % 00:00: daily. [place] ointment 00 [facility] mupirocin 2016-0 Yes [id number] Apply to [facility] ([facility]) 6-12 area(s) ity o f 2 % 00:00: daily. [place] ointment 00 [facility] mupirocin 2016-0 Yes [id number] Apply to [facility] ([facility]) 6-12 area(s) ity o f 2 % 00:00: daily. [place] ointment 00 [facility] mupirocin 0 Yes [id number] Apply to [facility] ([facility]) 6-12 area(s) ity o f 2 % 00:00: daily. [place] ointment 00 [facility] mupirocin 2017-0 Yes [id number] Apply to [facility] ([facility]) 6-12 area(s) ity o f 2 % 00:00: daily. [place] ointment 00 [facility] mupirocin 2017-0 Yes [id number] Apply to [facility] ([facility]) 6-12 area(s) ity o f 2 % 00:00: daily. [place] ointment 00 [facility] mupirocin 2017-0 Yes [id number] Apply to [facility] ([facility]) 6-12 area(s) ity o f 2 % 00:00: daily. [place] ointment 00 [facility] mupirocin 2017-0 Yes [id number] Apply to [facility] ([facility]) 6-12 area(s) ity o f 2 % 00:00: daily. [place] ointment 00 [facility] mupirocin 2017-0 Yes [id number] Apply to [facility] ([facility]) 6-12 area(s) ity o f 2 % 00:00: daily. [place] ointment 00 [facility] mupirocin 2017-0 Yes [id number] Apply to [facility] ([facility]) 6-12 area(s) ity o f 2 % 00:00: daily. [place] ointment 00 [facility] mupirocin 2017-0 Yes [id number] Apply to [facility] ([facility]) 6-12 area(s) ity o f 2 % 00:00: daily. [place] ointment 00 [facility] mupirocin 2016-0 Yes [id number] Apply to [facility] ([facility]) 6-12 area(s) ity o f 2 % 00:00: daily. [place] ointment [facility] mupirocin 2017-0 Yes [id number] Apply to [facility] ([facility]) 6-12 area(s) ity o f 2 % 00:00: daily. [place] ointment 00 [facility] mupirocin 2017-0 Yes [id number] Apply to [facility] ([facility]) 6-12 area(s) ity o f 2 % 00:00: daily. [place] ointment 00 [facility] mupirocin 2017-0 Yes [id number] Apply to [facility] ([facility]) 6-12 area(s) ity o f 2 % 00:00: daily. [place] ointment 00 [facility] mupirocin 2017-0 Yes [id number] Apply to [facility] ([facility]) 6-12 area(s) ity o f 2 % 00:00: daily. [place] ointment 00 [facility] mupirocin 2017-0 Yes [id number] Apply to [facility] ([facility]) 6-12 area(s) ity o f 2 % 00:00: daily. [place] ointment 00 [facility] mupirocin 2017-0 Yes [id number] Apply to [facility] ([facility]) 6-12 area(s) ity o f 2 % 00:00: daily. [place] ointment 00 [facility] mupirocin 2017-0 Yes [id number] Apply to [facility] ([facility]) 6-12 area(s) ity o f 2 % 00:00: daily. [place] ointment 00 [facility] mupirocin 0 Yes [id number] Apply to [facility] ([facility]) 6-12 area(s) ity o f 2 % 00:00: daily. [place] ointment 00 [facility] mupirocin 2017- Yes [id number] Apply to [facility] ([facility]) 6-12 area(s) ity o f 2 % 00:00: daily. [place] ointment 00 [facility] mupirocin Yes [id number] [facility] to [facility] ([facility]) 6-12 area(s) ity o f 2 % 00:00: daily. [place] ointment 00 [facility] mupirocin Yes [id number] [facility] to [facility] ([facility]) 6-12 area(s) ity o f 2 % 00:00: daily. [place] ointment 00 [facility] mupirocin 2016-0 Yes [id number] Apply to [facility] ([facility]) 6-12 area(s) ity o f 2 % 00:00: daily. [place] ointment 00 [facility] mupirocin 2017-0 Yes [id number] Apply to [facility] ([facility]) 6-12 area(s) ity o f 2 % 00:00: daily. [place] ointment 00 [facility] mupirocin 2017-0 Yes [id number] Apply to [facility] ([facility]) 6-12 area(s) ity o f 2 % 00:00: daily. [place] ointment 00 [facility] mupirocin 2017-0 Yes [id number] Apply to [facility] ([facility]) 6-12 area(s) ity o f 2 % 00:00: daily. [place] ointment 00 [facility] mupirocin 2016-0 Yes [id number] Apply to [facility] ([facility]) 6-12 area(s) ity o f 2 % 00:00: daily. [place] ointment 00 [facility] mupirocin 2017-0 Yes [id number] [facility] to [facility] ([facility]) 6-12 area(s) ity o f 2 % 00:00: daily. [place] ointment 00 [facility] mupirocin 2017-0 Yes [id number] Apply to [facility] ([facility]) 6-12 area(s) ity o f 2 % 00:00: daily. [place] ointment 00 [facility] mupirocin 20170 Yes [id number] Apply to [facility] ([facility]) 6-12 area(s) ity o f 2 % 00:00: daily. [place] ointment 00 [facility] mupirocin 2017-0 Yes [id number] Apply to [facility] ([facility]) 6-12 area(s) ity o f 2 % 00:00: daily. [place] ointment 00 [facility] mupirocin 2017-0 Yes [id number] Apply to [facility] ([facility]) 6-12 area(s) ity o f 2 % 00:00: daily. [place] ointment 00 [facility] mupirocin 0 Yes [id number] Apply to [facility] ([facility]) 6-12 area(s) ity o f 2 % 00:00: daily. [place] ointment 00 [facility] mupirocin 2017-0 Yes [id number] Apply to [facility] ([facility]) 6-12 area(s) ity o f 2 % 00:00: daily. [place] ointment 00 [facility] mupirocin 2017-0 Yes [id number] Apply to [facility] ([facility]) 6-12 area(s) ity o f 2 % 00:00: daily. [place] ointment 00 [facility] mupirocin 2017-0 Yes [id number] Apply to [facility] ([facility]) 6-12 area(s) ity o f 2 % 00:00: daily. [place] ointment 00 [facility] mupirocin 2017-0 Yes [id number] [facility] to [facility] ([facility]) 6-12 area(s) ity o f 2 % 00:00: daily. [place] ointment 00 [facility] mupirocin 2017-0 Yes [id number] Apply to [facility] ([facility]) 6-12 area(s) ity o f 2 % 00:00: daily. [place] ointment 00 [facility] mupirocin 2017-0 Yes [id number] Apply to [facility] ([facility]) 6-12 area(s) ity o f 2 % 00:00: daily. [place] ointment 00 [facility] mupirocin 2017 Yes [id number] Apply to [facility] ([facility]) 6-12 area(s) ity o f 2 % 00:00: daily. [place] ointment 00 [facility] mupirocin 2017 Yes [id number] Apply to [facility] ([facility]) 6-12 area(s) ity o f 2 % 00:00: daily. [place] ointment 00 [facility] mupirocin Yes [id number] Apply to [facility] ([facility]) 6-12 area(s) ity o f 2 % 00:00: daily. [place] ointment 00 [facility] mupirocin 2016- Yes [id number] Apply to [facility] ([facility]) 6-12 area(s) ity o f 2 % 00:00: daily. [place] ointment 00 [facility] mupirocin Yes [id number] Apply to [facility] ([facility]) 6-12 area(s) ity o f 2 % 00:00: daily. [place] ointment 00 [facility] mupirocin 0 Yes [id number] [facility] to [facility] ([facility]) 6-12 area(s) ity o f 2 % 00:00: daily. [place] ointment 00 [facility] mupirocin Yes [id number] Apply to [facility] ([facility]) 6-12 area(s) ity o f 2 % 00:00: daily. [place] ointment 00 [facility] mupirocin 20170 Yes [id number] Apply to [facility] ([facility]) 6-12 area(s) ity o f 2 % 00:00: daily. [place] ointment 00 [facility] mupirocin 2017-0 Yes [id number] Apply to [facility] ([facility]) 6-12 area(s) ity o f 2 % 00:00: daily. [place] ointment 00 [facility] mupirocin 2016- Yes [id number] Apply to [facility] ([facility]) 6-12 area(s) ity o f 2 % 00:00: daily. [place] ointment 00 [facility] mupirocin 2017-0 Yes [id number] Apply to [facility] ([facility]) 6-12 area(s) ity o f 2 % 00:00: daily. [place] ointment 00 [facility] mupirocin 20170 Yes [id number] Apply to [facility] ([facility]) 6-12 area(s) ity o f 2 % 00:00: daily. [place] ointment 00 [facility] mupirocin 0 Yes [id number] Apply to [facility] ([facility]) 6-12 area(s) ity o f 2 % 00:00: daily. [place] ointment 00 [facility] mupirocin Yes [id number] Apply to [facility] ([facility]) 6-12 area(s) ity o f 2 % 00:00: daily. [place] ointment 00 [facility] mupirocin 2016- Yes [id number] Apply to [facility] ([facility]) 6-12 area(s) ity o f 2 % 00:00: daily. [place] ointment 00 [facility] mupirocin 20170 Yes [id number] Apply to [facility] ([facility]) 6-12 area(s) ity o f 2 % 00:00: daily. [place] ointment 00 [facility] mupirocin 0 Yes [id number] Apply to [facility] ([facility]) 6-12 area(s) ity o f 2 % 00:00: daily. [place] ointment 00 [facility] mupirocin 2017-0 Yes [id number] Apply to [facility] ([facility]) 6-12 area(s) ity o f 2 % 00:00: daily. [place] ointment 00 [facility] mupirocin 2017-0 Yes [id number] Apply to [facility] ([facility]) 6-12 area(s) ity o f 2 % 00:00: daily. [place] ointment 00 [facility] mupirocin 2017-0 Yes [id number] Apply to [facility] ([facility]) 6-12 area(s) ity o f 2 % 00:00: daily. [place] ointment 00 [facility] mupirocin 2017-0 Yes [id number] Apply to [facility] ([facility]) 6-12 area(s) ity o f 2 % 00:00: daily. [place] ointment 00 [facility] mupirocin Yes [id number] Apply to [facility] ([facility]) 6-12 area(s) ity o f 2 % 00:00: daily. [place] ointment 00 [facility] mupirocin Yes [id number] Apply to [facility] ([facility]) 6-12 area(s) ity o f 2 % 00:00: daily. [place] ointment 00 [facility] mupirocin Yes [id number] Apply to [facility] ([facility]) 6-12 area(s) ity o f 2 % 00:00: daily. [place] ointment [facility] mupirocin Yes [id number] Apply to [facility] ([facility]) 6-12 area(s) ity o f 2 % 00:00: daily. [place] ointment [facility] mupirocin Yes [id number] Apply to [facility] ([facility]) 6-12 area(s) ity o f 2 % 00:00: daily. [place] ointment [facility] mupirocin Yes [id number] Apply to [facility] ([facility]) 6-12 area(s) ity o f 2 % 00:00: daily. [place] ointment [facility] mupirocin Yes [id number] Apply to [facility] ([facility]) 6-12 area(s) ity o f 2 % 00:00: daily. [place] ointment 00 [facility] mupirocin Yes [id number] Apply to [facility] ([facility]) 6-12 area(s) ity o f 2 % 00:00: daily. [place] ointment 00 [facility] mupirocin 20170 Yes [id number] Apply to [facility] ([facility]) 6-12 area(s) ity o f 2 % 00:00: daily. [place] ointment 00 [facility] mupirocin Yes [id number] Apply to [facility] ([facility]) 6-12 area(s) ity o f 2 % 00:00: daily. [place] ointment 00 [facility] mupirocin Yes [id number] Apply to [facility] ([facility]) 6-12 area(s) ity o f 2 % 00:00: daily. 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 tazarotene 2015-07 Yes Apply to [facility] (TAZORAC) 2-29 area(s) at ity of 0.05 % 00:00: bedtime. [place] cream 00 For thick Medical plaques Branch not improving with other medication s. tazarotene 2015-07 Yes Apply to [facility] (TAZORAC) 2-29 area(s) at ity of 0.05 % 00:00: bedtime. [place] cream 00 For thick Medical plaques Branch not improving with other medication s. tazarotene 2015-07 Yes Apply to [facility] (TAZORAC) 2-29 area(s) at ity of 0.05 % 00:00: bedtime. [place] cream 00 For thick Medical plaques Branch not improving with other medication s. tazarotene 2015-07 Yes Apply to [facility] (TAZORAC) 2-29 area(s) at ity of 0.05 % 00:00: bedtime. [place] cream 00 For thick Medical plaques Branch not improving with other medication s. tazarotene 2015-07 Yes Apply to [facility] (TAZORAC) 2-29 area(s) at ity of 0.05 % 00:00: bedtime. [place] cream 00 For thick Medical plaques Branch not improving with other medication s. tazarotene 2015-07 Yes Apply to [facility] (TAZORAC) 2-29 area(s) at ity of 0.05 % 00:00: bedtime. [place] cream 00 For thick Medical plaques Branch not improving with other medication s. tazarotene 2015-07 Yes Apply to [facility] (TAZORAC) 2-29 area(s) at ity of 0.05 % 00:00: bedtime. [place] cream 00 For thick Medical plaques Branch not improving with other medication s. tazarotene 2015-07 Yes Apply to [facility] (TAZORAC) 2-29 area(s) at ity of 0.05 % 00:00: bedtime. [place] cream 00 For thick Medical plaques Branch not improving with other medication s. tazarotene 2015-07 Yes Apply to [facility] (TAZORAC) 2-29 area(s) at ity of 0.05 % 00:00: bedtime. [place] cream 00 For thick Medical plaques Branch not improving with other medication s. tazarotene 2016- Yes Apply to [facility] (TAZORAC) 2-29 area(s) at ity of 0.05 % 00:00: bedtime. [place] cream 00 For thick Medical plaques Branch not improving with other medication s. tazarotene 2016- Yes Apply to [facility] (TAZORAC) 2-29 area(s) at ity of 0.05 % 00:00: bedtime. [place] cream 00 For thick Medical plaques Branch not improving with other medication s. tazarotene 2016- Yes Apply to [facility] (TAZORAC) 2-29 area(s) at ity of 0.05 % 00:00: bedtime. [place] cream 00 For thick Medical plaques Branch not improving with other medication s. tazarotene 2016 Yes Apply to [facility] (TAZORAC) 2-29 area(s) at ity of 0.05 % 00:00: bedtime. [place] cream 00 For thick Medical plaques Branch not improving with other medication s. tazarotene 2015-07 Yes Apply to [facility] [place] (TAZORAC) 2-29 area(s) at ity of 0.05 % 00:00: bedtime. [place] cream 00 For thick Medical plaques Branch not improving with other medication s. tazarotene 2016 Yes Apply to [facility] (TAZORAC) 2-29 area(s) at ity of 0.05 % 00:00: bedtime. [place] cream 00 For thick Medical plaques Branch not improving with other medication s. tazarotene 2016- Yes Apply to [facility] (TAZORAC) 2-29 area(s) at ity of 0.05 % 00:00: bedtime. [place] cream 00 For thick Medical plaques Branch not improving with other medication s. tazarotene 2016- Yes Apply to [facility] (TAZORAC) 2-29 area(s) at ity of 0.05 % 00:00: bedtime. [place] cream 00 For thick Medical plaques Branch not improving with other medication s. tazarotene 2016- Yes Apply to [facility] (TAZORAC) 2-29 area(s) at ity of 0.05 % 00:00: bedtime. [place] cream 00 For thick Medical plaques Branch not improving with other medication s. tazarotene 2016- Yes Apply to [facility] (TAZORAC) 2-29 area(s) at ity of 0.05 % 00:00: bedtime. [place] cream 00 For thick Medical plaques Branch not improving with other medication s. tazarotene 2015-07 Yes Apply to [facility] (TAZORAC) 2-29 area(s) at ity of 0.05 % 00:00: bedtime. [place] cream 00 For thick Medical plaques Branch not improving with other medication s. tazarotene 2015-07 Yes Apply to [facility] (TAZORAC) 2-29 area(s) at ity of 0.05 % 00:00: bedtime. [place] cream 00 For thick Medical plaques Branch not improving with other medication s. tazarotene 2015-07 Yes Apply to [facility] (TAZORAC) 2-29 area(s) at ity of 0.05 % 00:00: bedtime. [place] cream 00 For thick Medical plaques Branch not improving with other medication s. tazarotene 2015-07 Yes Apply to [facility] (TAZORAC) 2-29 area(s) at ity of 0.05 % 00:00: bedtime. [place] cream 00 For thick Medical plaques Branch not improving with other medication s. tazarotene 2015-07 Yes Apply to [facility] (TAZORAC) 2-29 area(s) at ity of 0.05 % 00:00: bedtime. [place] cream 00 For thick Medical plaques Branch not improving with other medication s. tazarotene 2015-07 Yes Apply to [facility] (TAZORAC) 2-29 area(s) at ity of 0.05 % 00:00: bedtime. [place] cream 00 For thick Medical plaques Branch not improving with other medication s. tazarotene 2015- Yes Apply to [facility] (TAZORAC) 2-29 area(s) at ity of 0.05 % 00:00: bedtime. [place] cream 00 For thick Medical plaques Branch not improving with other medication s. tazarotene 2016 Yes Apply to [facility] (TAZORAC) 2-29 area(s) at ity of 0.05 % 00:00: bedtime. [place] cream 00 For thick Medical plaques Branch not improving with other medication s. tazarotene 2016- Yes Apply to [facility] (TAZORAC) 2-29 area(s) at ity of 0.05 % 00:00: bedtime. [place] cream 00 For thick Medical plaques Branch not improving with other medication s. tazarotene 2015-07 Yes Apply to [facility] (TAZORAC) 2-29 area(s) at ity of 0.05 % 00:00: bedtime. [place] cream 00 For thick Medical plaques Branch not improving with other medication s. tazarotene 2015-07 Yes Apply to [facility] (TAZORAC) 2-29 area(s) at ity of 0.05 % 00:00: bedtime. [place] cream 00 For thick Medical plaques Branch not improving with other medication s. tazarotene 2015-07 Yes Apply to [facility] (TAZORAC) 2-29 area(s) at ity of 0.05 % 00:00: bedtime. [place] cream 00 For thick Medical plaques Branch not improving with other medication s. tazarotene 2016 Yes Apply to [facility] (TAZORAC) 2-29 area(s) at ity of 0.05 % 00:00: bedtime. [place] cream 00 For thick Medical plaques Branch not improving with other medication s. tazarotene 2015-07 Yes Apply to [facility] (TAZORAC) 2-29 area(s) at ity of 0.05 % 00:00: bedtime. [place] cream 00 For thick Medical plaques Branch not improving with other medication s. tazarotene 2015- Yes Apply to [facility] (TAZORAC) 2-29 area(s) at ity of 0.05 % 00:00: bedtime. [place] cream 00 For thick Medical plaques Branch not improving with other medication s. tazarotene 2015- Yes Apply to [facility] (TAZORAC) 2-29 area(s) at ity of 0.05 % 00:00: bedtime. [place] cream 00 For thick Medical plaques Branch not improving with other medication s. tazarotene 2016- Yes Apply to [facility] (TAZORAC) 2-29 area(s) at ity of 0.05 % 00:00: bedtime. [place] cream 00 For thick Medical plaques Branch not improving with other medication s. tazarotene 2016- Yes Apply to [facility] (TAZORAC) 2-29 area(s) at ity of 0.05 % 00:00: bedtime. [place] cream 00 For thick Medical plaques Branch not improving with other medication s. tazarotene 2016 Yes Apply to [facility] (TAZORAC) 2-29 area(s) at ity of 0.05 % 00:00: bedtime. [place] cream 00 For thick Medical plaques Branch not improving with other medication s. tazarotene 2016 Yes Apply to [facility] (TAZORAC) 2-29 area(s) at ity of 0.05 % 00:00: bedtime. [place] cream 00 For thick Medical plaques Branch not improving with other medication s. tazarotene 2015-07 Yes Apply to [facility] (TAZORAC) 2-29 area(s) at ity of 0.05 % 00:00: bedtime. [place] cream 00 For thick Medical plaques Branch not improving with other medication s. tazarotene 2015-07 Yes Apply to [facility] (TAZORAC) 2-29 area(s) at ity of 0.05 % 00:00: bedtime. [place] cream 00 For thick Medical plaques Branch not improving with other medication s. tazarotene 2015-07 Yes Apply to [facility] (TAZORAC) 2-29 area(s) at ity of 0.05 % 00:00: bedtime. [place] cream 00 For thick Medical plaques Branch not improving with other medication s. tazarotene 2015- Yes Apply to [facility] (TAZORAC) 2-29 area(s) at ity of 0.05 % 00:00: bedtime. [place] cream 00 For thick Medical plaques Branch not improving with other medication s. tazarotene 2016- Yes Apply to [facility] (TAZORAC) 2-29 area(s) at ity of 0.05 % 00:00: bedtime. [place] cream 00 For thick Medical plaques Branch not improving with other medication s. tazarotene 2015- Yes Apply to [facility] (TAZORAC) 2-29 area(s) at ity of 0.05 % 00:00: bedtime. [place] cream 00 For thick Medical plaques Branch not improving with other medication s. tazarotene 2015- Yes Apply to [facility] (TAZORAC) 2-29 area(s) at ity of 0.05 % 00:00: bedtime. [place] cream 00 For thick Medical plaques Branch not improving with other medication s. tazarotene 2016- Yes Apply to [facility] (TAZORAC) 2-29 area(s) at ity of 0.05 % 00:00: bedtime. [place] cream 00 For thick Medical plaques Branch not improving with other medication s. tazarotene 2016 Yes Apply to [facility] (TAZORAC) 2-29 area(s) at ity of 0.05 % 00:00: bedtime. [place] cream 00 For thick Medical plaques Branch not improving with other medication s. tazarotene 2016 Yes Apply to [facility] (TAZORAC) 2-29 area(s) at ity of 0.05 % 00:00: bedtime. [place] cream 00 For thick Medical plaques Branch not improving with other medication s. tazarotene 2015-07 Yes Apply to [facility] (TAZORAC) 2-29 area(s) at ity of 0.05 % 00:00: bedtime. [place] cream 00 For thick Medical plaques Branch not improving with other medication s. tazarotene 2015-07 Yes Apply to [facility] (TAZORAC) 2-29 area(s) at ity of 0.05 % 00:00: bedtime. [place] cream 00 For thick Medical plaques Branch not improving with other medication s. tazarotene 2015-07 Yes Apply to [facility] (TAZORAC) 2-29 area(s) at ity of 0.05 % 00:00: bedtime. [place] cream 00 For thick Medical plaques Branch not improving with other medication s. tazarotene 2016- Yes Apply to [facility] (TAZORAC) 2-29 area(s) at ity of 0.05 % 00:00: bedtime. [place] cream 00 For thick Medical plaques Branch not improving with other medication s. tazarotene 2016- Yes Apply to [facility] (TAZORAC) 2-29 area(s) at ity of 0.05 % 00:00: bedtime. [place] cream 00 For thick Medical plaques Branch not improving with other medication s. tazarotene 2016- Yes Apply to [facility] (TAZORAC) 2-29 area(s) at ity of 0.05 % 00:00: bedtime. [place] cream 00 For thick Medical plaques Branch not improving with other medication s. tazarotene 2016- Yes Apply to [facility] (TAZORAC) 2-29 area(s) at ity of 0.05 % 00:00: bedtime. [place] cream 00 For thick Medical plaques Branch not improving with other medication s. tazarotene 2016 Yes Apply to [facility] (TAZORAC) 2-29 area(s) at ity of 0.05 % 00:00: bedtime. [place] cream 00 For thick Medical plaques Branch not improving with other medication s. tazarotene 2015-07 Yes Apply to [facility] (TAZORAC) 2-29 area(s) at ity of 0.05 % 00:00: bedtime. [place] cream 00 For thick Medical plaques Branch not improving with other medication s. tazarotene 2015-07 Yes Apply to [facility] (TAZORAC) 2-29 area(s) at ity of 0.05 % 00:00: bedtime. [place] cream 00 For thick Medical plaques Branch not improving with other medication s. tazarotene 2015-07 Yes Apply to [facility] (TAZORAC) 2-29 area(s) at ity of 0.05 % 00:00: bedtime. [place] cream 00 For thick Medical plaques Branch not improving with other medication s. tazarotene 2015-07 Yes Apply to [facility] (TAZORAC) 2-29 area(s) at ity of 0.05 % 00:00: bedtime. [place] cream 00 For thick Medical plaques Branch not improving with other medication s. tazarotene 2016- Yes Apply to [facility] (TAZORAC) 2-29 area(s) at ity of 0.05 % 00:00: bedtime. [place] cream 00 For thick Medical plaques Branch not improving with other medication s. tazarotene 2016- Yes Apply to [facility] (TAZORAC) 2-29 area(s) at ity of 0.05 % 00:00: bedtime. [place] cream 00 For thick Medical plaques Branch not improving with other medication s. tazarotene 2016- Yes Apply to [facility] (TAZORAC) 2-29 area(s) at ity of 0.05 % 00:00: bedtime. [place] cream 00 For thick Medical plaques Branch not improving with other medication s. tazarotene 2016- Yes Apply to [facility] (TAZORAC) 2-29 area(s) at ity of 0.05 % 00:00: bedtime. [place] cream 00 For thick Medical plaques Branch not improving with other medication s. tazarotene 2015-07 Yes Apply to [facility] (TAZORAC) 2-29 area(s) at ity of 0.05 % 00:00: bedtime. [place] cream 00 For thick Medical plaques Branch not improving with other medication s. tazarotene 2015-07 Yes Apply to [facility] (TAZORAC) 2-29 area(s) at ity of 0.05 % 00:00: bedtime. [place] cream 00 For thick Medical plaques Branch not improving with other medication s. tazarotene 2015-07 Yes Apply to [facility] (TAZORAC) 2-29 area(s) at ity of 0.05 % 00:00: bedtime. [place] cream 00 For thick Medical plaques Branch not improving with other medication s. tazarotene 2015-07 Yes Apply to [facility] (TAZORAC) 2-29 area(s) at ity of 0.05 % 00:00: bedtime. [place] cream 00 For thick Medical plaques Branch not improving with other medication s. tazarotene 2015-07 Yes Apply to [facility] (TAZORAC) 2-29 area(s) at ity of 0.05 % 00:00: bedtime. [place] cream 00 For thick Medical plaques Branch not improving with other medication s. tazarotene 2015-07 Yes Apply to [facility] (TAZORAC) 2-29 area(s) at ity of 0.05 % 00:00: bedtime. [place] cream 00 For thick Medical plaques Branch not improving with other medication s. tazarotene 2015-07 Yes Apply to [facility] (TAZORAC) 2-29 area(s) at ity of 0.05 % 00:00: bedtime. [place] cream 00 For thick Medical plaques Branch not improving with other medication s. tazarotene 2016 Yes Apply to [facility] (TAZORAC) 2-29 area(s) at ity of 0.05 % 00:00: bedtime. [place] cream 00 For thick Medical plaques Branch not improving with other medication s. tazarotene 2015-07 Yes Apply to [facility] (TAZORAC) 2-29 area(s) at ity of 0.05 % 00:00: bedtime. [place] cream 00 For thick Medical plaques Branch not improving with other medication s. tazarotene 2016 Yes Apply to [facility] (TAZORAC) 2-29 area(s) at ity of 0.05 % 00:00: bedtime. [place] cream 00 For thick Medical plaques Branch not improving with other medication s. tazarotene 2016 Yes Apply to [facility] (TAZORAC) 2-29 area(s) at ity of 0.05 % 00:00: bedtime. [place] cream 00 For thick Medical plaques Branch not improving with other medication s. tazarotene 2015-07 Yes Apply to [facility] (TAZORAC) 2-29 area(s) at ity of 0.05 % 00:00: bedtime. [place] cream 00 For thick Medical plaques Branch not improving with other medication s. tazarotene 2015-07 Yes Apply to [facility] (TAZORAC) 2-29 area(s) at ity of 0.05 % 00:00: bedtime. [place] cream 00 For thick Medical plaques Branch not improving with other medication s. tazarotene 2015-07 Yes Apply to [facility] (TAZORAC) 2-29 area(s) at ity of 0.05 % 00:00: bedtime. [place] cream 00 For thick Medical plaques Branch not improving with other medication s. tazarotene 2015- Yes Apply to [facility] (TAZORAC) 2-29 area(s) at ity of 0.05 % 00:00: bedtime. [place] cream 00 For thick Medical plaques Branch not improving with other medication s. tazarotene 2016- Yes Apply to [facility] (TAZORAC) 2-29 area(s) at ity of 0.05 % 00:00: bedtime. [place] cream 00 For thick Medical plaques Branch not improving with other medication s. tazarotene 2015- Yes Apply to [facility] (TAZORAC) 2-29 area(s) at ity of 0.05 % 00:00: bedtime. [place] cream 00 For thick Medical plaques Branch not improving with other medication s. tazarotene 2016- Yes Apply to [facility] (TAZORAC) 2-29 area(s) at ity of 0.05 % 00:00: bedtime. [place] cream 00 For thick Medical plaques Branch not improving with other medication s. tazarotene 2016- Yes Apply to [facility] (TAZORAC) 2-29 area(s) at ity of 0.05 % 00:00: bedtime. [place] cream 00 For thick Medical plaques Branch not improving with other medication s. tazarotene 2016 Yes Apply to [facility] (TAZORAC) 2-29 area(s) at ity of 0.05 % 00:00: bedtime. [place] cream 00 For thick Medical plaques Branch not improving with other medication s. tazarotene 2015-07 Yes Apply to [facility] (TAZORAC) 2-29 area(s) at ity of 0.05 % 00:00: bedtime. [place] cream 00 For thick Medical plaques Branch not improving with other medication s. tazarotene 2015-07 Yes Apply to [facility] (TAZORAC) 2-29 area(s) at ity of 0.05 % 00:00: bedtime. [place] cream 00 For thick Medical plaques Branch not improving with other medication s. tazarotene 2015-07 Yes Apply to [facility] (TAZORAC) 2-29 area(s) at ity of 0.05 % 00:00: bedtime. [place] cream 00 For thick Medical plaques Branch not improving with other medication s. tazarotene 2015-07 Yes Apply to [facility] (TAZORAC) 2-29 area(s) at ity of 0.05 % 00:00: bedtime. [place] cream 00 For thick Medical plaques Branch not improving with other medication s. tazarotene 2016 Yes Apply to [facility] (TAZORAC) 2-29 area(s) at ity of 0.05 % 00:00: bedtime. [place] cream 00 For thick Medical plaques Branch not improving with other medication s. tazarotene 2016- Yes Apply to [facility] (TAZORAC) 2-29 area(s) at ity of 0.05 % 00:00: bedtime. [place] cream 00 For thick Medical plaques Branch not improving with other medication s. tazarotene 2016- Yes Apply to [facility] (TAZORAC) 2-29 area(s) at ity of 0.05 % 00:00: bedtime. [place] cream 00 For thick Medical plaques Branch not improving with other medication s. tazarotene 2015-07 Yes Apply to [facility] (TAZORAC) 2-29 area(s) at ity of 0.05 % 00:00: bedtime. [place] cream 00 For thick Medical plaques Branch not improving with other medication s. tazarotene 2015-07 Yes Apply to [facility] (TAZORAC) 2-29 area(s) at ity of 0.05 % 00:00: bedtime. [place] cream 00 For thick Medical plaques Branch not improving with other medication s. tazarotene 2015-07 Yes Apply to [facility] (TAZORAC) 2-29 area(s) at ity of 0.05 % 00:00: bedtime. [place] cream 00 For thick Medical plaques Branch not improving with other medication s. fluticasone 2013-07 Yes 1{spray Use 1 [place] (FLONASE) 0-16 } [place] in ity of 50 00:00: each [place] mcg/actuati 00 nostril Medic al on nasal daily. Branch spray fluticasone 2013-07 Yes 1{spray Use 1 [place] (FLONASE) 0-16 } [place] in ity of 50 00:00: each [place] mcg/actuati 00 nostril Medic al on nasal daily. Branch spray fluticasone 2013-07 Yes 1{spray Use 1 [place] (FLONASE) 0-16 } [place] in ity of 50 00:00: each [place] mcg/actuati 00 nostril Medic al on nasal daily. Branch spray fluticasone 2013-07 Yes 1{spray Use 1 [place] (FLONASE) 0-16 } [place] in ity of 50 00:00: each [place] mcg/actuati 00 nostril Medic al on nasal daily. Branch spray fluticasone 2013-07 Yes 1{spray Use 1 [place] (FLONASE) 0-16 } [place] in ity of 50 00:00: each [place] mcg/actuati 00 nostril Medic al on nasal daily. Branch spray fluticasone 2013-07 Yes 1{spray Use 1 [place] (FLONASE) 0-16 } [place] in ity of 50 00:00: each [place] mcg/actuati 00 nostril Medic al on nasal daily. Branch spray fluticasone 2013-07 Yes 1{spray Use 1 [place] (FLONASE) 0-16 } [place] in ity of 50 00:00: each [place] mcg/actuati 00 nostril Medic al on nasal daily. Branch spray fluticasone 2013-07 Yes 1{spray Use 1 [place] (FLONASE) 0-16 } [place] in ity of 50 00:00: each [place] mcg/actuati 00 nostril Medic al on nasal daily. Branch spray fluticasone 2013-07 Yes 1{spray Use 1 [place] (FLONASE) 0-16 } [place] in ity of 50 00:00: each [place] mcg/actuati 00 nostril Medic al on nasal daily. Branch spray fluticasone 2013-07 Yes 1{spray Use 1 [place] (FLONASE) 0-16 } [place] in ity of 50 00:00: each [place] mcg/actuati 00 nostril Medic al on nasal daily. Branch spray fluticasone 2013-07 Yes 1{spray Use 1 [place] (FLONASE) 0-16 } [place] in ity of 50 00:00: each [place] mcg/actuati 00 nostril Medic al on nasal daily. Branch spray fluticasone 2013-07 Yes 1{spray Use 1 [place] (FLONASE) 0-16 } [place] in ity of 50 00:00: each [place] mcg/actuati 00 nostril Medic al on nasal daily. Branch spray fluticasone 2013-07 Yes 1{spray Use 1 [place] (FLONASE) 0-16 } [place] in [facility]y of 50 00:00: each [place] mcg/actuati 00 nostril Medic al on nasal daily. Branch spray fluticasone 2013-07 Yes 1{spray Use 1 [place] (FLONASE) 0-16 } [place] in [facility] 50 00:00: each [place] mcg/actuati 00 nostril Medic al on nasal daily. Branch spray fluticasone 2013-07 Yes 1{spray Use 1 [place] (FLONASE) 0-16 } [facility] in [facility] of 50 00:00: each [place] mcg/actuati 00 nostril Medic al on nasal daily. Branch spray fluticasone 2013-07 Yes 1{spray Use 1 [place] (FLONASE) 0-16 } [facility] in [facility] 50 00:00: each [place] mcg/actuati 00 nostril Medic al on nasal daily. Branch spray fluticasone 2013-07 Yes 1{spray Use 1 [place] (FLONASE) 0-16 } [facility] in [facility]y of 50 00:00: each [place] mcg/actuati 00 nostril Medic al on nasal daily. Branch spray fluticasone 2013-07 Yes 1{spray Use 1 [place] (FLONASE) 0-16 } [facility] in [facility]y of 50 00:00: each [place] mcg/actuati 00 nostril Medic al on nasal daily. Branch spray fluticasone 2013-07 Yes 1{spray Use 1 [place] (FLONASE) 0-16 } [facility] in [facility]y of 50 00:00: each [place] mcg/actuati 00 nostril Medic al on nasal daily. Branch spray fluticasone 2013-07 Yes 1{spray Use 1 [place] (FLONASE) 0-16 } [facility] in [facility]y of 50 00:00: each [place] mcg/actuati 00 nostril Medic al on nasal daily. Branch spray fluticasone 2013-07 Yes 1{spray Use 1 [place] (FLONASE) 0-16 } [facility] in [facility]y of 50 00:00: each [place] mcg/actuati 00 nostril Medic al on nasal daily. Branch spray fluticasone 2013-07 Yes 1{spray Use 1 [place] (FLONASE) 0-16 } [facility] in [facility]y of 50 00:00: each [place] mcg/actuati 00 nostril Medic al on nasal daily. Branch spray fluticasone 2013-07 Yes 1{spray Use 1 [place] (FLONASE) 0-16 } [facility] in [facility]y of 50 00:00: each [place] mcg/actuati 00 nostril Medic al on nasal daily. Branch spray fluticasone 2013-07 Yes 1{spray Use 1 [place] (FLONASE) 0-16 } [facility] in [facility]y of 50 00:00: each [place] mcg/actuati 00 nostril Medic al on nasal daily. Branch spray fluticasone 2013-07 Yes 1{spray Use 1 [place] (FLONASE) 0-16 } [facility] in [facility]y of 50 00:00: each [place] mcg/actuati 00 nostril Medic al on nasal daily. Branch spray fluticasone 2013-07 Yes 1{spray Use 1 [place] (FLONASE) 0-16 } [facility] in [facility]y of 50 00:00: each [place] mcg/actuati 00 nostril Medic al on nasal daily. Branch spray fluticasone 2013-07 Yes 1{spray Use 1 [place] (FLONASE) 0-16 } [facility] in [facility]y of 50 00:00: each [place] mcg/actuati 00 nostril Medic al on nasal daily. Branch spray fluticasone 2013-07 Yes 1{spray Use 1 [place] (FLONASE) 0-16 } [facility] in [facility]y of 50 00:00: each [place] mcg/actuati 00 nostril Medic al on nasal daily. Branch spray fluticasone 2013-07 Yes 1{spray Use 1 [place] (FLONASE) 0-16 } [facility] in [facility]y of 50 00:00: each [place] mcg/actuati 00 nostril Medic al on nasal daily. Branch spray fluticasone 2013-07 Yes 1{spray Use 1 [place] (FLONASE) 0-16 } [facility] in [facility]y of 50 00:00: each [place] mcg/actuati 00 nostril Medic al on nasal daily. Branch spray fluticasone 2013-07 Yes 1{spray Use 1 [place] (FLONASE) 0-16 } [facility] in [facility]y of 50 00:00: each [place] mcg/actuati 00 nostril Medic al on nasal daily. Branch spray fluticasone 2013-07 Yes 1{spray Use 1 [place] (FLONASE) 0-16 } [facility] in [facility]y of 50 00:00: each [place] mcg/actuati 00 nostril Medic al on nasal daily. Branch spray fluticasone 2013-07 Yes 1{spray Use 1 [place] (FLONASE) 0-16 } [facility] in ity of 50 00:00: each [place] mcg/actuati 00 nostril Medic al on nasal daily. Branch spray fluticasone 2013-07 Yes 1{spray Use 1 [place] (FLONASE) 0-16 } [facility] in ity of 50 00:00: each [place] mcg/actuati 00 nostril Medic al on nasal daily. Branch spray fluticasone 2013-07 Yes 1{spray Use 1 [place] (FLONASE) 0-16 } [facility] in [facility]y of 50 00:00: each [place] mcg/actuati 00 nostril Medic al on nasal daily. Branch spray fluticasone 2013-07 Yes 1{spray Use 1 [place] (FLONASE) 0-16 } [facility] in [facility]y of 50 00:00: each [place] mcg/actuati 00 nostril Medic al on nasal daily. Branch spray fluticasone 2013-07 Yes 1{spray Use 1 [place] (FLONASE) 0-16 } [facility] in [facility]y of 50 00:00: each [place] mcg/actuati 00 nostril Medic al on nasal daily. Branch spray fluticasone 2013-07 Yes 1{spray Use 1 [place] (FLONASE) 0-16 } [facility] in ity of 50 00:00: each [place] mcg/actuati 00 nostril Medic al on nasal daily. Branch spray fluticasone 2013-07 Yes 1{spray Use 1 [place] (FLONASE) 0-16 } [facility] in ity of 50 00:00: each [place] mcg/actuati 00 nostril Medic al on nasal daily. Branch spray fluticasone 2013-07 Yes 1{spray Use 1 [place] (FLONASE) 0-16 } [facility] in ity of 50 00:00: each [place] mcg/actuati 00 nostril Medic al on nasal daily. Branch spray fluticasone 2013-07 Yes 1{spray Use 1 [place] (FLONASE) 0-16 } [facility] in ity of 50 00:00: each [place] mcg/actuati 00 nostril Medic al on nasal daily. Branch spray fluticasone 2013-07 Yes 1{spray Use 1 [place] (FLONASE) 0-16 } [facility] in ity of 50 00:00: each [place] mcg/actuati 00 nostril Medic al on nasal daily. Branch spray fluticasone 2013-07 Yes 1{spray Use 1 [place] (FLONASE) 0-16 } [facility] in ity of 50 00:00: each [place] mcg/actuati 00 nostril Medic al on nasal daily. Branch spray fluticasone 2013-07 Yes 1{spray Use 1 [place] (FLONASE) 0-16 } [facility] in ity of 50 00:00: each [place] mcg/actuati 00 nostril Medic al on nasal daily. Branch spray fluticasone 2013-07 Yes 1{spray Use 1 [place] (FLONASE) 0-16 } [facility] in ity of 50 00:00: each [place] mcg/actuati 00 nostril Medic al on nasal daily. Branch spray fluticasone 2013-07 Yes 1{spray Use 1 [place] (FLONASE) 0-16 } [facility] in ity of 50 00:00: each [place] mcg/actuati 00 nostril Medic al on nasal daily. Branch spray fluticasone 2013-07 Yes 1{spray Use 1 [place] (FLONASE) 0-16 } [facility] in ity of 50 00:00: each [place] mcg/actuati 00 nostril Medic al on nasal daily. Branch spray fluticasone 2013-07 Yes 1{spray Use 1 [place] (FLONASE) 0-16 } [facility] in [facility]y of 50 00:00: each [place] mcg/actuati 00 nostril Medic al on nasal daily. Branch spray fluticasone 2013-07 Yes 1{spray Use 1 [place] (FLONASE) 0-16 } [facility] in ity of 50 00:00: each [place] mcg/actuati 00 nostril Medic al on nasal daily. Branch spray fluticasone 2013-07 Yes 1{spray Use 1 [place] (FLONASE) 0-16 } [facility] in ity of 50 00:00: each [place] mcg/actuati 00 nostril Medic al on nasal daily. Branch spray fluticasone 2013-07 Yes 1{spray Use 1 [place] (FLONASE) 0-16 } [facility] in ity of 50 00:00: each [place] mcg/actuati 00 nostril Medic al on nasal daily. Branch spray fluticasone 2013-07 Yes 1{spray Use 1 [place] (FLONASE) 0-16 } [facility] in ity of 50 00:00: each [place] mcg/actuati 00 nostril Medic al on nasal daily. Branch spray fluticasone 2013-07 Yes 1{spray Use 1 [place] (FLONASE) 0-16 } [facility] in ity of 50 00:00: each [place] mcg/actuati 00 nostril Medic al on nasal daily. Branch spray fluticasone 2013-07 Yes 1{spray Use 1 [place] (FLONASE) 0-16 } [facility] in ity of 50 00:00: each [place] mcg/actuati 00 nostril Medic al on nasal daily. Branch spray fluticasone 2013-07 Yes 1{spray Use 1 [place] (FLONASE) 0-16 } [facility] in ity of 50 00:00: each [place] mcg/actuati 00 nostril Medic al on nasal daily. Branch spray fluticasone 2013-07 Yes 1{spray Use 1 [place] (FLONASE) 0-16 } [facility] in [facility]y of 50 00:00: each [place] mcg/actuati 00 nostril Medic al on nasal daily. Branch spray fluticasone 2013-07 Yes 1{spray Use 1 [place] (FLONASE) 0-16 } [facility] in ity of 50 00:00: each [place] mcg/actuati 00 nostril Medic al on nasal daily. Branch spray fluticasone 2013-07 Yes 1{spray Use 1 [place] (FLONASE) 0-16 } [facility] in ity of 50 00:00: each [place] mcg/actuati 00 nostril Medic al on nasal daily. Branch spray fluticasone 2013-07 Yes 1{spray Use 1 [place] (FLONASE) 0-16 } [facility] in ity of 50 00:00: each [place] mcg/actuati 00 nostril Medic al on nasal daily. Branch spray fluticasone 2013-07 Yes 1{spray Use 1 [place] (FLONASE) 0-16 } [facility] in ity of 50 00:00: each [place] mcg/actuati 00 nostril Medic al on nasal daily. Branch spray fluticasone 2013-07 Yes 1{spray Use 1 [place] (FLONASE) 0-16 } [facility] in ity of 50 00:00: each [place] mcg/actuati 00 nostril Medic al on nasal daily. Branch spray fluticasone 2013-07 Yes 1{spray Use 1 [place] (FLONASE) 0-16 } [facility] in ity of 50 00:00: each [place] mcg/actuati 00 nostril Medic al on nasal daily. Branch spray fluticasone 2013-07 Yes 1{spray Use 1 [place] (FLONASE) 0-16 } [facility] in ity of 50 00:00: each [place] mcg/actuati 00 nostril Medic al on nasal daily. Branch spray fluticasone 2013-07 Yes 1{spray Use 1 [place] (FLONASE) 0-16 } [facility] in ity of 50 00:00: each [place] mcg/actuati 00 nostril Medic al on nasal daily. Branch spray fluticasone 2013-07 Yes 1{spray Use 1 [place] (FLONASE) 0-16 } [facility] in ity of 50 00:00: each [place] mcg/actuati 00 nostril Medic al on nasal daily. Branch spray fluticasone 2013-07 Yes 1{spray Use 1 [place] (FLONASE) 0-16 } [facility] in ity of 50 00:00: each [place] mcg/actuati 00 nostril Medic al on nasal daily. Branch spray fluticasone 2013-07 Yes 1{spray Use 1 [place] (FLONASE) 0-16 } [facility] in ity of 50 00:00: each [place] mcg/actuati 00 nostril Medic al on nasal daily. Branch spray fluticasone 2013-07 Yes 1{spray Use 1 [place] (FLONASE) 0-16 } [facility] in ity of 50 00:00: each [place] mcg/actuati 00 nostril Medic al on nasal daily. Branch spray fluticasone 2013-07 Yes 1{spray Use 1 [place] (FLONASE) 0-16 } [facility] in ity of 50 00:00: each [place] mcg/actuati 00 nostril Medic al on nasal daily. Branch spray fluticasone 2013-07 Yes 1{spray Use 1 [place] (FLONASE) 0-16 } [facility] in ity of 50 00:00: each [place] mcg/actuati 00 nostril Medic al on nasal daily. Branch spray fluticasone 2013-07 Yes 1{spray Use 1 [place] (FLONASE) 0-16 } [facility] in ity of 50 00:00: each [place] mcg/actuati 00 nostril Medic al on nasal daily. Branch spray fluticasone 2013-07 Yes 1{spray Use 1 [place] (FLONASE) 0-16 } [facility] in ity of 50 00:00: each [place] mcg/actuati 00 nostril Medic al on nasal daily. Branch spray fluticasone 2013-07 Yes 1{spray Use 1 [place] (FLONASE) 0-16 } [facility] in ity of 50 00:00: each [place] mcg/actuati 00 nostril Medic al on nasal daily. Branch spray fluticasone 2013-07 Yes 1{spray Use 1 [place] (FLONASE) 0-16 } [facility] in ity of 50 00:00: each [place] mcg/actuati 00 nostril Medic al on nasal daily. Branch spray fluticasone 2013-07 Yes 1{spray Use 1 [place] (FLONASE) 0-16 } [facility] in ity of 50 00:00: each [place] mcg/actuati 00 nostril Medic al on nasal daily. Branch spray fluticasone 2013-07 Yes 1{spray Use 1 [place] (FLONASE) 0-16 } [facility] in ity of 50 00:00: each [place] mcg/actuati 00 nostril Medic al on nasal daily. Branch spray fluticasone 2013-07 Yes 1{spray Use 1 [place] (FLONASE) 0-16 } [facility] in ity of 50 00:00: each [place] mcg/actuati 00 nostril Medic al on nasal daily. Branch spray fluticasone 2013-07 Yes 1{spray Use 1 [place] (FLONASE) 0-16 } [facility] in ity of 50 00:00: each [place] mcg/actuati 00 nostril Medic al on nasal daily. Branch spray fluticasone 2013-07 Yes 1{spray Use 1 [place] (FLONASE) 0-16 } [facility] in ity of 50 00:00: each [place] mcg/actuati 00 nostril Medic al on nasal daily. Branch spray fluticasone 2013-07 Yes 1{spray Use 1 [place] (FLONASE) 0-16 } [facility] in ity of 50 00:00: each [place] mcg/actuati 00 nostril Medic al on nasal daily. Branch spray fluticasone 2013-07 Yes 1{spray Use 1 [place] (FLONASE) 0-16 } [facility] in ity of 50 00:00: each [place] mcg/actuati 00 nostril Medic al on nasal daily. Branch spray fluticasone 2013-07 Yes 1{spray Use 1 [place] (FLONASE) 0-16 } [facility] in ity of 50 00:00: each [place] mcg/actuati 00 nostril Medic al on nasal daily. Branch spray fluticasone 2013-07 Yes 1{spray Use 1 [place] (FLONASE) 0-16 } [facility] in ity of 50 00:00: each [place] mcg/actuati 00 nostril Medic al on nasal daily. Branch spray fluticasone 2013-07 Yes 1{spray Use 1 [place] (FLONASE) 0-16 } [facility] in ity of 50 00:00: each [place] mcg/actuati 00 nostril Medic al on nasal daily. Branch spray fluticasone 2013-07 Yes 1{spray Use 1 [place] (FLONASE) 0-16 } [facility] in ity of 50 00:00: each [place] mcg/actuati 00 nostril Medic al on nasal daily. Branch spray fluticasone 2013-07 Yes 1{spray Use 1 [place] (FLONASE) 0-16 } [facility] in ity of 50 00:00: each [place] mcg/actuati 00 nostril Medic al on nasal daily. Branch spray fluticasone 2013-07 Yes 1{spray Use 1 [place] (FLONASE) 0-16 } [facility] in ity of 50 00:00: each [place] mcg/actuati 00 nostril Medic al on nasal daily. Branch spray fluticasone 2013-07 Yes 1{spray Use 1 [place] (FLONASE) 0-16 } [facility] in ity of 50 00:00: each [place] mcg/actuati 00 nostril Medic al on nasal daily. Branch spray fluticasone 2013-07 Yes 1{spray Use 1 [place] (FLONASE) 0-16 } [facility] in ity of 50 00:00: each [place] mcg/actuati 00 nostril Medic al on nasal daily. Branch spray fluticasone 2013-07 Yes 1{spray Use 1 [place] (FLONASE) 0-16 } [facility] in ity of 50 00:00: each [place] mcg/actuati 00 nostril Medic al on nasal daily. Branch spray fluticasone 2013-07 Yes 1{spray Use 1 [place] (FLONASE) 0-16 } [facility] in ity of 50 00:00: each [place] mcg/actuati 00 nostril Medic al on nasal daily. Branch spray fluticasone 2013-07 Yes 1{spray Use 1 [place] (FLONASE) 0-16 } [facility] in ity of 50 00:00: each [place] mcg/actuati 00 nostril Medic al on nasal daily. Branch spray fluticasone 2013-07 Yes 1{spray Use 1 [place] (FLONASE) 0-16 } [facility] in ity of 50 00:00: each [place] mcg/actuati 00 nostril Medic al on nasal daily. Branch spray fluticasone 2013-07 Yes 1{spray Use 1 [place] (FLONASE) 0-16 } [facility] in ity of 50 00:00: each [place] mcg/actuati 00 nostril Medic al on nasal daily. Branch spray fluticasone 2013-07 Yes 1{spray Use 1 [place] (FLONASE) 0-16 } [place] in ity of 50 00:00: each [place] mcg/actuati 00 nostril Medic al on nasal daily. Branch spray Immunizations Ordered Filled Immunization Date Status Comments [facility] e Immunization Name Name SARS-COV-2 COVID-19 2021-11-23 Completed Un[facility] of PFIZER VACCINE 00:00:00 [facility] SARS-COV-2 COVID-19 2021-11-23 Completed [facility]ive [facility] of PFIZER VACCINE 00:00:00 [facility] SARS-COV-2 COVID-19 2021-11-23 Completed [facility]ive [facility] of PFIZER VACCINE 00:00:00 [facility] SARS-COV-2 COVID-19 2021-11-23 Completed Unive [facility] of PFIZER VACCINE 00:00:00 [facility] SARS-COV-2 COVID-19 2021-11-23 Completed Unive [facility] of PFIZER VACCINE 00:00:00 [facility] SARS-COV-2 COVID-19 2021-11-23 Completed [facility]ive [facility] of PFIZER VACCINE 00:00:00 [facility] SARS-COV-2 COVID-19 2021-11-23 Completed [facility]ive [facility] of PFIZER VACCINE 00:00:00 [facility] SARS-COV-2 COVID-19 2021-11-23 Completed [facility] of PFIZER VACCINE 00:00:00 [facility] SARS-COV-2 COVID-19 2021-11-23 Completed [facility] of PFIZER VACCINE 00:00:00 [facility] SARS-COV-2 COVID-19 2021-11-23 Completed [facility]ive [facility] of PFIZER VACCINE 00:00:00 [facility] SARS-COV-2 COVID-19 2021-11-23 Completed [facility]ive [facility] of PFIZER VACCINE 00:00:00 [facility] SARS-COV-2 COVID-19 2021-11-23 Completed [facility]ive [facility] of PFIZER VACCINE 00:00:00 [facility] SARS-COV-2 COVID-19 2021-11-23 Completed [facility]ive [facility] of PFIZER VACCINE 00:00:00 [facility] SARS-COV-2 COVID-19 2021-11-23 Completed Unive [facility] of PFIZER VACCINE 00:00:00 [facility] SARS-COV-2 COVID-19 2021-11-23 Completed Unive [facility] of PFIZER VACCINE 00:00:00 [facility] SARS-COV-2 COVID-19 2021-11-23 Completed Unive [facility] of PFIZER VACCINE 00:00:00 [facility] SARS-COV-2 COVID-19 2021-11-23 Completed Unive [facility] of PFIZER VACCINE 00:00:00 [facility] SARS-COV-2 COVID-19 2021-11-23 Completed Unive [facility] of PFIZER VACCINE 00:00:00 [facility] SARS-COV-2 COVID-19 2021-11-23 Completed Unive [facility] of PFIZER VACCINE 00:00:00 [facility] SARS-COV-2 COVID-19 2021-11-23 Completed Unive [facility] of PFIZER VACCINE 00:00:00 [facility] SARS-COV-2 COVID-19 2021-11-23 Completed Unive [facility] of PFIZER VACCINE 00:00:00 [facility] SARS-COV-2 COVID-19 2021-11-23 Completed [facility]ive [facility] of PFIZER VACCINE 00:00:00 [facility] SARS-COV-2 COVID-19 2021-11-23 Completed Unive [facility] of PFIZER VACCINE 00:00:00 [facility] SARS-COV-2 COVID-19 2021-11-23 Completed Unive [facility] of PFIZER VACCINE 00:00:00 [facility] SARS-COV-2 COVID-19 2021-11-23 Completed [facility]ive [facility] of PFIZER VACCINE 00:00:00 [facility] SARS-COV-2 COVID-19 2021-11-23 Completed [facility] of PFIZER VACCINE 00:00:00 [facility] SARS-COV-2 COVID-19 2021-11-23 Completed [facility] of PFIZER VACCINE 00:00:00 [facility] SARS-COV-2 COVID-19 2021-11-23 Completed [facility] of PFIZER VACCINE 00:00:00 [facility] SARS-COV-2 COVID-19 2021-11-23 Completed [facility] of PFIZER VACCINE 00:00:00 [facility] SARS-COV-2 COVID-19 2021-11-23 Completed Unive [facility] of PFIZER VACCINE 00:00:00 [facility] SARS-COV-2 COVID-19 2021-11-23 Completed [facility] of PFIZER VACCINE 00:00:00 [facility] SARS-COV-2 COVID-19 2021-11-23 Completed Unive [facility] of PFIZER VACCINE 00:00:00 [facility] SARS-COV-2 COVID-19 2021-11-23 Completed Unive [facility] of PFIZER VACCINE 00:00:00 [facility] SARS-COV-2 COVID-19 2021-11-23 Completed Unive [facility] of PFIZER VACCINE 00:00:00 [facility] SARS-COV-2 COVID-19 2021-11-23 Completed Unive [facility] of PFIZER VACCINE 00:00:00 [facility] SARS-COV-2 COVID-19 2021-11-23 Completed Unive [facility] of PFIZER VACCINE 00:00:00 [facility] SARS-COV-2 COVID-19 2021-11-23 Completed [facility]ive [facility] of PFIZER VACCINE 00:00:00 [facility] SARS-COV-2 COVID-19 2021-11-23 Completed [facility]ive [facility] of PFIZER VACCINE 00:00:00 [facility] SARS-COV-2 COVID-19 2021-11-23 Completed Unive [facility] of PFIZER VACCINE 00:00:00 [facility] SARS-COV-2 COVID-19 2021-11-23 Completed [facility] of PFIZER VACCINE 00:00:00 [facility] SARS-COV-2 COVID-19 2021-11-23 Completed [facility] of PFIZER VACCINE 00:00:00 [facility] SARS-COV-2 COVID-19 2021-11-23 Completed Unive rs[facility] of PFIZER VACCINE 00:00:00 [facility] SARS-COV-2 COVID-19 2021-11-23 Completed [facility]ive [facility] of PFIZER VACCINE 00:00:00 [facility] SARS-COV-2 COVID-19 2021-11-23 Completed Unive [facility] of PFIZER VACCINE 00:00:00 [facility] SARS-COV-2 COVID-19 2021-11-23 Completed Unive [facility] of PFIZER VACCINE 00:00:00 [facility] SARS-COV-2 COVID-19 2021-11-23 Completed [facility] of PFIZER VACCINE 00:00:00 [facility] SARS-COV-2 COVID-19 2021-11-23 Completed [facility] of PFIZER VACCINE 00:00:00 [facility] SARS-COV-2 COVID-19 2021-11-23 Completed Unive [facility] of PFIZER VACCINE 00:00:00 [facility] SARS-COV-2 COVID-19 2021-11-23 Completed [facility] of PFIZER VACCINE 00:00:00 [facility] SARS-COV-2 COVID-19 2021-11-23 Completed [facility]ive [facility] of PFIZER VACCINE 00:00:00 [facility] SARS-COV-2 COVID-19 2021-11-23 Completed [facility]ive [facility] of PFIZER VACCINE 00:00:00 [facility] SARS-COV-2 COVID-19 2021-11-23 Completed Unive [facility] of PFIZER VACCINE 00:00:00 [facility] SARS-COV-2 COVID-19 2021-11-23 Completed Unive [facility] of PFIZER VACCINE 00:00:00 [facility] SARS-COV-2 COVID-19 2021-11-23 Completed Unive [facility] of PFIZER VACCINE 00:00:00 [facility] SARS-COV-2 COVID-19 2021-11-23 Completed Unive [facility] of PFIZER VACCINE 00:00:00 [facility] SARS-COV-2 COVID-19 2021-11-23 Completed [facility] of PFIZER VACCINE 00:00:00 [facility] SARS-COV-2 COVID-19 2021-11-23 Completed Unive rsity of PFIZER VACCINE 00:00:00 [facility] SARS-COV-2 COVID-19 2021-11-23 Completed Unive [facility] of PFIZER VACCINE 00:00:00 [facility] SARS-COV-2 COVID-19 2021-11-23 Completed Unive [facility] of PFIZER VACCINE 00:00:00 [facility] SARS-COV-2 COVID-19 2021-11-23 Completed Unive [facility] of PFIZER VACCINE 00:00:00 [facility] SARS-COV-2 COVID-19 2021-11-23 Completed Unive [facility] of PFIZER VACCINE 00:00:00 [facility] SARS-COV-2 COVID-19 2021-11-23 Completed Unive rs[facility] of PFIZER VACCINE 00:00:00 [facility] SARS-COV-2 COVID-19 2021-11-23 Completed Unive rs[facility] of PFIZER VACCINE 00:00:00 [facility] SARS-COV-2 COVID-19 2021-11-23 Completed Unive [facility] of PFIZER VACCINE 00:00:00 [facility] SARS-COV-2 COVID-19 2021-11-23 Completed Unive rs[facility] of PFIZER VACCINE 00:00:00 [facility] SARS-COV-2 COVID-19 2021-11-23 Completed Unive [facility] of PFIZER VACCINE 00:00:00 [facility] SARS-COV-2 COVID-19 2021-11-23 Completed Unive [facility] of PFIZER VACCINE 00:00:00 [facility] SARS-COV-2 COVID-19 2021-11-23 Completed Unive rsity of PFIZER VACCINE 00:00:00 [facility] SARS-COV-2 COVID-19 2021-11-23 Completed Unive [facility] of PFIZER VACCINE 00:00:00 [facility] SARS-COV-2 COVID-19 2021-11-23 Completed Unive rs[facility] of PFIZER VACCINE 00:00:00 [facility] SARS-COV-2 COVID-19 2021-11-23 Completed Unive rsity of PFIZER VACCINE 00:00:00 [facility] SARS-COV-2 COVID-19 2021-11-23 Completed Unive rsity of PFIZER VACCINE 00:00:00 [facility] SARS-COV-2 COVID-19 2021-11-23 Completed Unive rs[facility] of PFIZER VACCINE 00:00:00 [facility] SARS-COV-2 COVID-19 2021-11-23 Completed Unive rsity of PFIZER VACCINE 00:00:00 [facility] SARS-COV-2 COVID-19 2021-11-23 Completed Unive rsity of PFIZER VACCINE 00:00:00 [facility] SARS-COV-2 COVID-19 2021-11-23 Completed Unive rsity of PFIZER VACCINE 00:00:00 [facility] SARS-COV-2 COVID-19 2021-11-23 Completed Unive rsity of PFIZER VACCINE 00:00:00 [facility] SARS-COV-2 COVID-19 2021-11-23 Completed Unive rs[facility] of PFIZER VACCINE 00:00:00 [facility] SARS-COV-2 COVID-19 2021-11-23 Completed Unive rs[facility] of PFIZER VACCINE 00:00:00 [facility] SARS-COV-2 COVID-19 2021-11-23 Completed Unive rs[facility] of PFIZER VACCINE 00:00:00 [facility] SARS-COV-2 COVID-19 2021-11-23 Completed Unive rsity of PFIZER VACCINE 00:00:00 [facility] SARS-COV-2 COVID-19 2021-11-23 Completed Unive [facility] of PFIZER VACCINE 00:00:00 [facility] SARS-COV-2 COVID-19 2021-11-23 Completed Unive rs[facility] of PFIZER VACCINE 00:00:00 [facility] SARS-COV-2 COVID-19 2021-11-23 Completed [facility] of PFIZER VACCINE 00:00:00 [facility] [place] [facility] SARS-COV-2 COVID-19 2021-11-23 Completed [facility] PFIZER VACCINE 00:00:00 [facility] SARS-COV-2 COVID-19 2021-11-23 Completed [facility] PFIZER VACCINE 00:00:00 [facility] SARS-COV-2 COVID-19 2021-11-23 Completed [facility] PFIZER VACCINE 00:00:00 [facility] SARS-COV-2 COVID-19 2021-11-23 Completed [facility] PFIZER VACCINE 00:00:00 [facility] SARS-COV-2 COVID-19 2021-11-23 Completed [facility] PFIZER VACCINE 00:00:00 [facility] SARS-COV-2 COVID-19 2021-11-23 Completed [facility] PFIZER VACCINE 00:00:00 [facility] SARS-COV-2 COVID-19 2021-11-23 Completed [facility] PFIZER VACCINE 00:00:00 [facility] SARS-COV-2 COVID-19 2021-11-23 Completed [facility] PFIZER VACCINE 00:00:00 [facility] SARS-COV-2 COVID-19 2021-11-23 Completed [facility] PFIZER VACCINE 00:00:00 [facility] SARS-COV-2 COVID-19 2021-11-23 Completed [facility] PFIZER VACCINE 00:00:00 [facility] SARS-COV-2 COVID-19 2021-11-23 Completed [facility] PFIZER VACCINE 00:00:00 [facility] Influenza Virus 2021-05-13 Completed [facility] Vaccine,quad 00[facility]00:[facility] Influenza Virus 2021-05-13 Completed [facility] Vaccine,quad 00:00:00 [facility] 65+ Influenza Virus 2021-05-13 Completed [facility] Vaccine,quad 00:00:00 [facility] 65+ Influenza Virus 2021-05-13 Completed [facility] Vaccine,quad 00:00:00 [facility] 65+ Influenza Virus 2021-05-13 Completed [facility] Vaccine,quad 00:00:00 [facility] 65+ Influenza Virus 2021-05-13 Completed [facility] Vaccine,quad 00:00:00 [facility] 65+ Influenza Virus 2021-05-13 Completed [facility] Vaccine,quad 00:00:00 [facility] 65+ Influenza Virus 2021-05-13 Completed [facility] Vaccine,quad 00:00:00 [facility] 65+ Influenza Virus 2021-05-13 Completed [facility] Vaccine,quad 00:00:00 [facility] 65+ Influenza Virus 2021-05-13 Completed [facility] Vaccine,quad 00:00:00 [facility] 65+ Influenza Virus 2021-05-13 Completed [facility] Vaccine,quad 00:00:00 [facility] 65+ Influenza Virus 2021-05-13 Completed [facility] Vaccine,quad 00:00:00 [facility] 65+ Influenza Virus 2021-05-13 Completed [facility] Vaccine,quad 00:00:00 [facility] 65+ Influenza Virus 2021-05-13 Completed [facility] Vaccine,quad 00:00:00 [place] [facility] 65+ Influenza Virus 2021-05-13 Completed [facility] Vaccine,quad 00:00:00 [facility] 65+ Influenza Virus 2021-05-13 Completed [facility] Vaccine,quad 00:00:00 [facility] 65+ Influenza Virus 2021-05-13 Completed [facility] Vaccine,quad 00:00:00 [facility] 65+ Influenza Virus 2021-05-13 Completed [facility] Vaccine,quad 00:00:00 [facility] 65+ Influenza Virus 2021-05-13 Completed [facility] Vaccine,quad 00:00:00 [place] [facility] 65+ Influenza Virus 2021-05-13 Completed [facility] Vaccine,quad 00:00:00 [facility] 65+ Influenza Virus 2021-05-13 Completed [facility] Vaccine,quad 00:00:00 [place] [facility] 65+ Influenza Virus 2021-05-13 Completed [facility] Vaccine,quad 00:00:00 [place] [facility] 65+ Influenza Virus 2021-05-13 Completed [facility] Vaccine,quad 00:00:00 [place] [facility] 65+ Influenza Virus 2021-05-13 Completed [facility] Vaccine,quad 00:00:00 [facility] 65+ Influenza Virus 2021-05-13 Completed [facility] Vaccine,quad 00:00:00 [place] [facility] 65+ Influenza Virus 2021-05-13 Completed [facility] Vaccine,quad 00:00:00 [place] [facility] 65+ Influenza Virus 2021-05-13 Completed [facility] Vaccine,quad 00:00:00 [place] [facility] 65+ Influenza Virus 2021-05-13 Completed [facility] Vaccine,quad 00:00:00 [place] [facility] 65+ Influenza Virus 2021-05-13 Completed [facility] Vaccine,quad 00:00:00 [place] [facility] 65+ Influenza Virus 2021-05-13 Completed [facility] Vaccine,quad 00:00:00 [place] [facility] 65+ Influenza Virus 2021-05-13 Completed [facility] Vaccine,quad 00:00:00 [place] [facility] 65+ Influenza Virus 2021-05-13 Completed [facility] Vaccine,quad 00:00:00 [place] [facility] 65+ Influenza Virus 2021-05-13 Completed [facility] Vaccine,quad 00:00:00 [place] [facility] 65+ Influenza Virus 2021-05-13 Completed [facility] Vaccine,quad 00:00:00 [place] [facility] 65+ Influenza Virus 2021-05-13 Completed [facility] Vaccine,quad 00:00:00 [place] [facility] 65+ Influenza Virus 2021-05-13 Completed [facility] Vaccine,quad 00:00:00 [place] [facility] 65+ Influenza Virus 2021-05-13 Completed [facility] Vaccine,quad 00:00:00 [place] [facility] 65+ Influenza Virus 2021-05-13 Completed [facility] Vaccine,quad 00:00:00 [facility] 65+ Influenza Virus 2021-05-13 Completed [facility] Vaccine,quad 00:00:00 [place] [facility] 65+ Influenza Virus 2021-05-13 Completed [facility] Vaccine,quad 00:00:00 [place] [facility] 65+ Influenza Virus 2021-05-13 Completed [facility] Vaccine,quad 00:00:00 [place] [facility] 65+ Influenza Virus 2021-05-13 Completed [facility] Vaccine,quad 00:00:00 [place] [facility] 65+ Influenza Virus 2021-05-13 Completed [facility] Vaccine,quad 00:00:00 [place] [facility] 65+ Influenza Virus 2021-05-13 Completed [facility] Vaccine,quad 00:00:00 [place] [facility] 65+ Influenza Virus 2021-05-13 Completed [facility] Vaccine,quad 00:00:00 [place] [facility] 65+ Influenza Virus 2021-05-13 Completed [facility] Vaccine,quad 00:00:00 [place] [facility] 65+ Influenza Virus 2021-05-13 Completed [facility] Vaccine,quad 00:00:00 [place] [facility] 65+ Influenza Virus 2021-05-13 Completed [facility] Vaccine,quad 00:00:00 [place] [facility] 65+ Influenza Virus 2021-05-13 Completed [facility] Vaccine,quad 00:00:00 [place] [facility] 65+ Influenza Virus 2021-05-13 Completed [facility] Vaccine,quad 00:00:00 [place] [facility] 65+ Influenza Virus 2021-05-13 Completed [facility] Vaccine,quad 00:00:00 [place] [facility] 65+ Influenza Virus 2021-05-13 Completed [facility] Vaccine,quad 00:00:00 [place] [facility] 65+ Influenza Virus 2021-05-13 Completed [facility] Vaccine,quad 00:00:00 [place] [facility] 65+ Influenza Virus 2021-05-13 Completed [facility] Vaccine,quad 00:00:00 [place] [facility] 65+ Influenza Virus 2021-05-13 Completed [facility] Vaccine,quad 00:00:00 [place] [facility] 65+ Influenza Virus 2021-05-13 Completed [facility] Vaccine,quad 00:00:00 [place] [facility] 65+ Influenza Virus 2021-05-13 Completed [facility] Vaccine,quad 00:00:00 [place] [facility] 65+ Influenza Virus 2021-05-13 Completed [facility] Vaccine,quad 00:00:00 [place] [facility] 65+ Influenza Virus 2021-05-13 Completed [facility] Vaccine,quad 00:00:00 [place] [facility] 65+ Influenza Virus 2021-05-13 Completed [facility] Vaccine,quad 00:00:00 [place] [facility] 65+ Influenza Virus 2021-05-13 Completed [facility] Vaccine,quad 00:00:00 [place] [facility] 65+ Influenza Virus 2021-05-13 Completed [facility] Vaccine,quad 00:00:00 [place] [facility] 65+ Influenza Virus 2021-05-13 Completed [facility] Vaccine,quad 00:00:00 [place] [facility] 65+ Influenza Virus 2021-05-13 Completed [facility] Vaccine,quad 00:00:00 [place] [facility] 65+ Influenza Virus 2021-05-13 Completed [facility] Vaccine,quad 00:00:00 [place] [facility] 65+ Influenza Virus 2021-05-13 Completed [facility] Vaccine,quad 00:00:00 [place] [facility] 65+ Influenza Virus 2021-05-13 Completed [facility] Vaccine,quad 00:00:00 [place] [facility] 65+ Influenza Virus 2021-05-13 Completed [facility] Vaccine,quad 00:00:00 [place] [facility] 65+ Influenza Virus 2021-05-13 Completed [facility] Vaccine,quad 00:00:00 [place] [facility] 65+ Influenza Virus 2021-05-13 Completed [facility] Vaccine,quad 00:00:00 [place] [facility] 65+ Influenza Virus 2021-05-13 Completed [facility] Vaccine,quad 00:00:00 [place] [facility] 65+ Influenza Virus 2021-05-13 Completed [facility] Vaccine,quad 00:00:00 [facility] 65+ Influenza Virus 2021-05-13 Completed [facility] Vaccine,quad 00:00:00 [place] [facility] 65+ Influenza Virus 2021-05-13 Completed [facility] Vaccine,quad 00:00:00 [place] [facility] 65+ Influenza Virus 2021-05-13 Completed [facility] Vaccine,quad 00:00:00 [place] [facility] 65+ Influenza Virus 2021-05-13 Completed [facility] Vaccine,quad 00:00:00 [facility] 65+ Influenza Virus 2021-05-13 Completed [facility] Vaccine,quad 00:00:00 [place] [facility] 65+ Influenza Virus 2021-05-13 Completed [facility] Vaccine,quad 00:00:00 [place] [facility] 65+ Influenza Virus 2021-05-13 Completed [facility] Vaccine,quad 00:00:00 [facility] 65+ Influenza Virus 2021-05-13 Completed [facility] Vaccine,quad 00:00:00 [place] [facility] 65+ Influenza Virus 2021-05-13 Completed [facility] Vaccine,quad 00:00:00 [place] [facility] 65+ Influenza Virus 2021-05-13 Completed [facility] Vaccine,quad 00:00:00 [place] [facility] 65+ Influenza Virus 2021-05-13 Completed [facility] Vaccine,quad 00:00:00 [place] [facility] 65+ Influenza Virus 2021-05-13 Completed [facility] Vaccine,quad 00:00:00 [place] [facility] 65+ Influenza Virus 2021-05-13 Completed [facility] Vaccine,quad 00:00:00 [place] [facility] 65+ Influenza Virus 2021-05-13 Completed [facility] Vaccine,quad 00:00:00 [place] [facility] 65+ Influenza Virus 2021-05-13 Completed [facility] Vaccine,quad 00:00:00 [place] [facility] 65+ Influenza Virus 2021-05-13 Completed [facility] Vaccine,quad 00:00:00 [place] [facility] 65+ Influenza Virus 2021-05-13 Completed [facility] Vaccine,quad 00:00:00 [place] [facility] 65+ Influenza Virus 2021-05-13 Completed [facility] Vaccine,quad 00:00:00 [place] [facility] 65+ Influenza Virus 2021-05-13 Completed [facility] Vaccine,quad 00:00:00 [place] [facility] 65+ Influenza Virus 2021-05-13 Completed [facility] Vaccine,quad 00:00:00 [place] [facility] 65+ Influenza Virus 2021-05-13 Completed [facility] Vaccine,quad 00:00:00 [place] [facility] 65+ Influenza Virus 2021-05-13 Completed [facility] Vaccine,quad 00:00:00 [place] [facility] 65+ Influenza Virus 2021-05-13 Completed [facility] Vaccine,quad 00:00:00 [place] [facility]+ SARS-COV-2 COVID-19 2021-03-02 Completed [facility] MODERNA 12+ YRS 00:00:00 [place] [facility] SARS-COV-2 COVID-19 2021-03-02 Completed [facility] of MODERNA 12+ YRS 00:00:00 [place] [facility] SARS-COV-2 COVID-19 2021-03-02 Completed [facility] of MODERNA 12+ YRS 00:00:00 [place] [facility] SARS-COV-2 COVID-19 2021-03-02 Completed [facility] of MODERNA 12+ YRS 00:00:00 [place] [facility] SARS-COV-2 COVID-19 2021-03-02 Completed [facility] of MODERNA 12+ YRS 00:00:00 [place] [facility] SARS-COV-2 COVID-19 2021-03-02 Completed [facility] of MODERNA 12+ YRS 00:00:00 [place] [facility] SARS-COV-2 COVID-19 2021-03-02 Completed [facility] of MODERNA 12+ YRS 00:00:00 [place] [facility] SARS-COV-2 COVID-19 2021-03-02 Completed [facility] of MODERNA 12+ YRS 00:00:00 [place] [facility] SARS-COV-2 COVID-19 2021-03-02 Completed [facility] of MODERNA 12+ YRS 00:00:00 [place] [facility] SARS-COV-2 COVID-19 2021-03-02 Completed [facility] of MODERNA 12+ YRS 00:00:00 [place] [facility] SARS-COV-2 COVID-19 2021-03-02 Completed [facility] of MODERNA 12+ YRS 00:00:00 [place] [facility] SARS-COV-2 COVID-19 2021-03-02 Completed [facility] of MODERNA 12+ YRS 00:00:00 [place] [facility] SARS-COV-2 COVID-19 2021-03-02 Completed [facility] of MODERNA 12+ YRS 00:00:00 [place] [facility] SARS-COV-2 COVID-19 2021-03-02 Completed [facility] of MODERNA 12+ YRS 00:00:00 [place] [facility] SARS-COV-2 COVID-19 2021-03-02 Completed [facility] of MODERNA 12+ YRS 00:00:00 [place] [facility] SARS-COV-2 COVID-19 2021-03-02 Completed [facility] of MODERNA 12+ YRS 00:00:00 [place] [facility] SARS-COV-2 COVID-19 2021-03-02 Completed [facility] of MODERNA 12+ YRS 00:00:00 [place] [facility] SARS-COV-2 COVID-19 2021-03-02 Completed [facility] of MODERNA 12+ YRS 00:00:00 [place] [facility] SARS-COV-2 COVID-19 2021-03-02 Completed [facility] MODERNA 12+ YRS 00:00:00 [place] [facility] SARS-COV-2 COVID-19 2021-03-02 Completed [facility] MODERNA 12+ YRS 00:00:00 [place] [facility] SARS-COV-2 COVID-19 2021-03-02 Completed [facility] MODERNA 12+ YRS 00:00:00 [place] [facility] SARS-COV-2 COVID-19 2021-03-02 Completed [facility] MODERNA 12+ YRS 00:00:00 [place] [facility] SARS-COV-2 COVID-19 2021-03-02 Completed [facility] MODERNA 12+ YRS 00:00:00 [place] [facility] SARS-COV-2 COVID-19 2021-03-02 Completed [facility] of MODERNA 12+ YRS 00:00:00 [place] [facility] SARS-COV-2 COVID-19 2021-03-02 Completed [facility] of MODERNA 12+ YRS 00:00:00 [place] [facility] SARS-COV-2 COVID-19 2021-03-02 Completed [facility] MODERNA 12+ YRS 00:00:00 [place] [facility] SARS-COV-2 COVID-19 2021-03-02 Completed [facility] MODERNA 12+ YRS 00:00:00 [place] [facility] SARS-COV-2 COVID-19 2021-03-02 Completed [facility] of MODERNA 12+ YRS 00:00:00 [place] [facility] SARS-COV-2 COVID-19 2021-03-02 Completed [facility] of MODERNA 12+ YRS 00:00:00 [place] [facility] SARS-COV-2 COVID-19 2021-03-02 Completed [facility] of MODERNA 12+ YRS 00:00:00 [place] [facility] SARS-COV-2 COVID-19 2021-03-02 Completed [facility] of MODERNA 12+ YRS 00:00:00 [place] [facility] SARS-COV-2 COVID-19 2021-03-02 Completed [facility] of MODERNA 12+ YRS 00:00:00 [place] [facility] SARS-COV-2 COVID-19 2021-03-02 Completed [facility] of MODERNA 12+ YRS 00:00:00 [place] [facility] SARS-COV-2 COVID-19 2021-03-02 Completed [facility] of MODERNA 12+ YRS 00:00:00 [place] [facility] SARS-COV-2 COVID-19 2021-03-02 Completed [facility] of MODERNA 12+ YRS 00:00:00 [place] [facility] SARS-COV-2 COVID-19 2021-03-02 Completed [facility] of MODERNA 12+ YRS 00:00:00 [place] [facility] SARS-COV-2 COVID-19 2021-03-02 Completed [facility] of MODERNA 12+ YRS 00:00:00 [place] [facility] SARS-COV-2 COVID-19 2021-03-02 Completed [facility] of MODERNA 12+ YRS 00:00:00 [place] [facility] SARS-COV-2 COVID-19 2021-03-02 Completed [facility] of MODERNA 12+ YRS 00:00:00 [place] [facility] SARS-COV-2 COVID-19 2021-03-02 Completed [facility] MODERNA 12+ YRS 00:00:00 [place] [facility] SARS-COV-2 COVID-19 2021-03-02 Completed [facility] of MODERNA 12+ YRS 00:00:00 [place] [facility] SARS-COV-2 COVID-19 2021-03-02 Completed [facility] of MODERNA 12+ YRS 00:00:00 [place] [facility] SARS-COV-2 COVID-19 2021-03-02 Completed [facility] MODERNA 12+ YRS 00:00:00 [place] [facility] SARS-COV-2 COVID-19 2021-03-02 Completed [facility] MODERNA 12+ YRS 00:00:00 [place] [facility] SARS-COV-2 COVID-19 2021-03-02 Completed [facility] MODERNA 12+ YRS 00:00:00 [place] [facility] SARS-COV-2 COVID-19 2021-03-02 Completed [facility] MODERNA 12+ YRS 00:00:00 [place] [facility] SARS-COV-2 COVID-19 2021-03-02 Completed [facility] MODERNA 12+ YRS 00:00:00 [place] [facility] SARS-COV-2 COVID-19 2021-03-02 Completed [facility] MODERNA 12+ YRS 00:00:00 [place] [facility] SARS-COV-2 COVID-19 2021-03-02 Completed [facility] MODERNA 12+ YRS 00:00:00 [place] [facility] SARS-COV-2 COVID-19 2021-03-02 Completed [facility] MODERNA 12+ YRS 00:00:00 [place] [facility] SARS-COV-2 COVID-19 2021-03-02 Completed [facility] MODERNA 12+ YRS 00:00:00 [place] [facility] SARS-COV-2 COVID-19 2021-03-02 Completed [facility] MODERNA 12+ YRS 00:00:00 [place] [facility] SARS-COV-2 COVID-19 2021-03-02 Completed [facility] MODERNA 12+ YRS 00:00:00 [place] [facility] SARS-COV-2 COVID-19 2021-03-02 Completed [facility] MODERNA 12+ YRS 00:00:00 [place] [facility] SARS-COV-2 COVID-19 2021-03-02 Completed [facility] MODERNA VACCINE 00:00:00 [place] [facility] SARS-COV-2 COVID-19 2021-03-02 Completed [facility] MODERNA VACCINE 00:00:00 [facility] SARS-COV-2 COVID-19 2021-03-02 Completed [facility] MODERNA VACCINE 00:00:00 [facility] SARS-COV-2 COVID-19 2021-03-02 Completed [facility] MODERNA VACCINE 00:00:00 [facility] SARS-COV-2 COVID-19 2021-03-02 Completed [facility] MODERNA VACCINE 00:00:00 [facility] SARS-COV-2 COVID-19 2021-03-02 Completed [facility] MODERNA VACCINE 00:00:00 [facility] SARS-COV-2 COVID-19 2021-03-02 Completed [facility] MODERNA VACCINE 00:00:00 [place] [facility] SARS-COV-2 COVID-19 2021-03-02 Completed [facility] MODERNA VACCINE 00:00:00 [facility] SARS-COV-2 COVID-19 2021-03-02 Completed [facility] MODERNA VACCINE 00:00:00 [facility] SARS-COV-2 COVID-19 2021-03-02 Completed [facility] MODERNA VACCINE 00:00:00 [facility] SARS-COV-2 COVID-19 2021-03-02 Completed [facility] MODERNA VACCINE 00:00:00 [facility] SARS-COV-2 COVID-19 2021-03-02 Completed [facility] MODERNA VACCINE 00:00:00 [facility] SARS-COV-2 COVID-19 2021-03-02 Completed [facility] MODERNA VACCINE 00:00:00 [facility] SARS-COV-2 COVID-19 2021-03-02 Completed [facility] MODERNA VACCINE 00:00:00 [facility] SARS-COV-2 COVID-19 2021-03-02 Completed [facility] MODERNA 12+ YRS 00:00:00 [place] [facility] SARS-COV-2 COVID-19 2021-03-02 Completed [facility] MODERNA 12+ YRS 00:00:00 [facility] SARS-COV-2 COVID-19 2021-03-02 Completed [facility] MODERNA 12+ YRS 00:00:00 [facility] SARS-COV-2 COVID-19 2021-03-02 Completed [facility] MODERNA 12+ YRS 00:00:00 [facility] SARS-COV-2 COVID-19 2021-03-02 Completed [facility] MODERNA 12+ YRS 00:00:00 [facility] SARS-COV-2 COVID-19 2021-03-02 Completed [facility] MODERNA 12+ YRS 00:00:00 [facility] SARS-COV-2 COVID-19 2021-03-02 Completed [facility] MODERNA 12+ YRS 00:00:00 [place] [facility] SARS-COV-2 COVID-19 2021-03-02 Completed [facility] MODERNA 12+ YRS 00:00:00 [place] [facility] SARS-COV-2 COVID-19 2021-03-02 Completed [facility] MODERNA 12+ YRS 00:00:00 [place] [facility] SARS-COV-2 COVID-19 2021-03-02 Completed [facility] MODERNA 12+ YRS 00:00:00 [place] [facility] SARS-COV-2 COVID-19 2021-03-02 Completed [facility] MODERNA 12+ YRS 00:00:00 [place] [facility] SARS-COV-2 COVID-19 2021-03-02 Completed [facility] MODERNA 12+ YRS 00:00:00 [place] [facility] SARS-COV-2 COVID-19 2021-03-02 Completed [facility] MODERNA 12+ YRS 00:00:00 [place] [facility] SARS-COV-2 COVID-19 2021-03-02 Completed [facility] MODERNA 12+ YRS 00:00:00 [place] [facility] SARS-COV-2 COVID-19 2021-03-02 Completed [facility] MODERNA 12+ YRS 00:00:00 [place] [facility] SARS-COV-2 COVID-19 2021-03-02 Completed [facility] MODERNA 12+ YRS 00:00:00 [place] [facility] SARS-COV-2 COVID-19 2021-03-02 Completed [facility] MODERNA 12+ YRS 00:00:00 [place] [facility] SARS-COV-2 COVID-19 2021-03-02 Completed [facility] MODERNA 12+ YRS 00:00:00 [place] [facility] SARS-COV-2 COVID-19 2021-03-02 Completed [facility] MODERNA 12+ YRS 00:00:00 [place] [facility] SARS-COV-2 COVID-19 2021-03-02 Completed [facility] MODERNA 12+ YRS 00:00:00 [place] [facility] SARS-COV-2 COVID-19 2021-03-02 Completed [facility] MODERNA 12+ YRS 00:00:00 [place] [facility] SARS-COV-2 COVID-19 2021-03-02 Completed [facility] of MODERNA 12+ YRS 00:00:00 [place] [facility] SARS-COV-2 COVID-19 2021-03-02 Completed [facility] of MODERNA 12+ YRS 00:00:00 [place] [facility] SARS-COV-2 COVID-19 2021-03-02 Completed [facility] of MODERNA 12+ YRS 00:00:00 [place] [facility] SARS-COV-2 COVID-19 2021-03-02 Completed [facility] of MODERNA 12+ YRS 00:00:00 [place] [facility] SARS-COV-2 COVID-19 2021-03-02 Completed [facility] MODERNA 12+ YRS 00:00:00 [place] [facility] SARS-COV-2 COVID-19 2021-03-02 Completed [facility] MODERNA 12+ YRS 00:00:00 [place] [facility] Pneumococcal 2021-02-16 Completed [facility] Polysaccharide, 00:00:00 [place] [facility] PPSV23 (PNEUMOVAX) [facility] Pneumococcal 2021-02-16 Completed [facility] Polysaccharide, 00:00:00 [place] [facility] PPSV23 (PNEUMOVAX) [facility] Pneumococcal 2021-02-16 Completed [facility] Polysaccharide, 00:00:00 [place] [facility] PPSV23 (PNEUMOVAX) [facility] Pneumococcal 2021-02-16 Completed [facility] Polysaccharide, 00:00:00 [place] [facility] PPSV23 (PNEUMOVAX) [facility] Pneumococcal 2021-02-16 Completed [facility] Polysaccharide, 00:00:00 [place] [facility] PPSV23 (PNEUMOVAX) [facility] Pneumococcal 2021-02-16 Completed [facility] Polysaccharide, 00:00:00 [place] [facility] PPSV23 (PNEUMOVAX) [facility] Pneumococcal 2021-02-16 Completed [facility] Polysaccharide, 00:00:00 [place] [facility] PPSV23 (PNEUMOVAX) [facility] Pneumococcal 2021-02-16 Completed [facility] Polysaccharide, 00:00:00 [place] [facility] PPSV23 (PNEUMOVAX) [facility] Pneumococcal 2021-02-16 Completed [facility] Polysaccharide, 00:00:00 [place] [facility] PPSV23 (PNEUMOVAX) Branch Pneumococcal 2021-02-16 Completed [facility], 00:[facility]:00 [place] [facility] PPSV23 (PNEUMOVAX) Branch Pneumococcal 2021-02-16 Completed [facility], 00:00:00 [place] [facility] PPSV23 (PNEUMOVAX) Branch Pneumococcal 2021-02-16 Completed [facility] Pol[facility], 00:00:00 [place] [facility] PPSV23 (PNEUMOVAX) Branch Pneumococcal 2021-02-16 Completed [facility] Pol[facility], 00:00:00 [place] [facility] PPSV23 (PNEUMOVAX) Branch Pneumococcal 2021-02-16 Completed [facility] Pol[facility], 00:00:00 [place] [facility] PPSV23 (PNEUMOVAX) Branch Pneumococcal 2021-02-16 Completed [facility] Pol[facility], 00:00:00 [place] [facility] PPSV23 (PNEUMOVAX) Branch Pneumococcal 2021-02-16 Completed [facility] Pol[facility], 00:00:00 [place] [facility] PPSV23 (PNEUMOVAX) Branch Pneumococcal 2021-02-16 Completed [facility] Pol[facility], 00:00:00 [place] [facility] PPSV23 (PNEUMOVAX) Branch Pneumococcal 2021-02-16 Completed [facility] Pol[facility], 00:00:00 [place] [facility] PPSV23 (PNEUMOVAX) Branch Pneumococcal 2021-02-16 Completed [facility] Pol[facility]accharide, 00:00:00 [place] [facility] PPSV23 (PNEUMOVAX) Branch Pneumococcal 2021-02-16 Completed [facility] Pol[facility]accharide, 00:00:00 [place] [facility] PPSV23 (PNEUMOVAX) Branch Pneumococcal 2021-02-16 Completed [facility] Pol[facility]accharide, 00:00:00 [place] [facility] PPSV23 (PNEUMOVAX) Branch Pneumococcal 2021-02-16 Completed [facility] Pol[facility]accharide, 00:00:00 [place] [facility] PPSV23 (PNEUMOVAX) Branch Pneumococcal 2021-02-16 Completed [facility] Pol[facility]accharide, 00:00:00 [place] [facility] PPSV23 (PNEUMOVAX) Branch Pneumococcal 2021-02-16 Completed [facility] Pol[facility]accharide, 00:00:00 [place] [facility] PPSV23 (PNEUMOVAX) Branch Pneumococcal 2021-02-16 Completed [facility] Polysaccharide, 00:00:00 [place] [facility] PPSV23 (PNEUMOVAX) Branch Pneumococcal 2021-02-16 Completed [facility] Pol[facility]accharide, 00:00:00 [place] [facility] PPSV23 (PNEUMOVAX) Branch Pneumococcal 2021-02-16 Completed [facility] Pol[facility]accharide, 00:00:00 [place] [facility] PPSV23 (PNEUMOVAX) Branch Pneumococcal 2021-02-16 Completed [facility] Pol[facility]accharide, 00:00:00 [place] [facility] PPSV23 (PNEUMOVAX) Branch Pneumococcal 2021-02-16 Completed [facility] Pol[facility]accharide, 00:00:00 [place] [facility] PPSV23 (PNEUMOVAX) Branch Pneumococcal 2021-02-16 Completed [facility] Polysaccharide, 00:00:00 [place] [facility] PPSV23 (PNEUMOVAX) Branch Pneumococcal 2021-02-16 Completed [facility] Pol[facility]accharide, 00:00:00 [place] [facility] PPSV23 (PNEUMOVAX) Branch Pneumococcal 2021-02-16 Completed [facility] Pol[facility]accharide, 00:00:00 [place] [facility] PPSV23 (PNEUMOVAX) Branch Pneumococcal 2021-02-16 Completed [facility] Pol[facility]accharide, 00:00:00 [place] [facility] PPSV23 (PNEUMOVAX) Branch Pneumococcal 2021-02-16 Completed [facility] Pol[facility]accharide, 00:00:00 [place] [facility] PPSV23 (PNEUMOVAX) Branch Pneumococcal 2021-02-16 Completed [facility] Pol[facility]accharide, 00:00:00 [place] [facility] PPSV23 (PNEUMOVAX) Branch Pneumococcal 2021-02-16 Completed [facility] Pol[facility]accharide, 00:00:00 [place] [facility] PPSV23 (PNEUMOVAX) Branch Pneumococcal 2021-02-16 Completed [facility] Pol[facility]accharide, 00:00:00 [place] [facility] PPSV23 (PNEUMOVAX) Branch Pneumococcal 2021-02-16 Completed [facility] Pol[facility]accharide, 00:00:00 [place] [facility] PPSV23 (PNEUMOVAX) Branch Pneumococcal 2021-02-16 Completed [facility] Pol[facility]accharide, 00:00:00 [place] [facility] PPSV23 (PNEUMOVAX) Branch Pneumococcal 2021-02-16 Completed [facility] Pol[facility]accharide, 00:00:00 [place] [facility] PPSV23 (PNEUMOVAX) Branch Pneumococcal 2021-02-16 Completed [facility] Pol[facility]accharide, 00:00:00 [place] [facility] PPSV23 (PNEUMOVAX) Branch Pneumococcal 2021-02-16 Completed [facility] Pol[facility]accharide, 00:00:00 [place] [facility] PPSV23 (PNEUMOVAX) Branch Pneumococcal 2021-02-16 Completed [facility] Pol[facility]accharide, 00:00:00 [place] [facility] PPSV23 (PNEUMOVAX) Branch Pneumococcal 2021-02-16 Completed [facility] Pol[facility]accharide, 00:00:00 [place] [facility] PPSV23 (PNEUMOVAX) Branch Pneumococcal 2021-02-16 Completed [facility] Pol[facility]accharide, 00:00:00 [place] [facility] PPSV23 (PNEUMOVAX) Branch Pneumococcal 2021-02-16 Completed [facility] Pol[facility]accharide, 00:00:00 [place] [facility] PPSV23 (PNEUMOVAX) Branch Pneumococcal 2021-02-16 Completed [facility] Pol[facility]accharide, 00:00:00 [place] [facility] PPSV23 (PNEUMOVAX) Branch Pneumococcal 2021-02-16 Completed [facility] Pol[facility]accharide, 00:00:00 [place] [facility] PPSV23 (PNEUMOVAX) Branch Pneumococcal 2021-02-16 Completed [facility] Pol[facility]accharide, 00:00:00 [place] [facility] PPSV23 (PNEUMOVAX) Branch Pneumococcal 2021-02-16 Completed [facility] Pol[facility]accharide, 00:00:00 [place] [facility] PPSV23 (PNEUMOVAX) Branch Pneumococcal 2021-02-16 Completed [facility] Pol[facility]accharide, 00:00:00 [place] [facility] PPSV23 (PNEUMOVAX) Branch Pneumococcal 2021-02-16 Completed [facility] Pol[facility]accharide, 00:00:00 [place] [facility] PPSV23 (PNEUMOVAX) Branch Pneumococcal 2021-02-16 Completed [facility] Pol[facility]accharide, 00:00:00 [place] [facility] PPSV23 (PNEUMOVAX) Branch Pneumococcal 2021-02-16 Completed [facility] Pol[facility]accharide, 00:00:00 [place] [facility] PPSV23 (PNEUMOVAX) Branch Pneumococcal 2021-02-16 Completed [facility] Pol[facility]accharide, 00:00:00 [place] [facility] PPSV23 (PNEUMOVAX) Branch Pneumococcal 2021-02-16 Completed [facility] Pol[facility]accharide, 00:00:00 [place] [facility] PPSV23 (PNEUMOVAX) Branch Pneumococcal 2021-02-16 Completed [facility] Pol[facility]accharide, 00:00:00 [place] [facility] PPSV23 (PNEUMOVAX) Branch Pneumococcal 2021-02-16 Completed [facility] Pol[facility]accharide, 00:00:00 [place] [facility] PPSV23 (PNEUMOVAX) Branch Pneumococcal 2021-02-16 Completed [facility] Pol[facility]accharide, 00:00:00 [place] [facility] PPSV23 (PNEUMOVAX) Branch Pneumococcal 2021-02-16 Completed [facility] Pol[facility]accharide, 00:00:00 [place] [facility] PPSV23 (PNEUMOVAX) Branch Pneumococcal 2021-02-16 Completed [facility] Pol[facility]accharide, 00:00:00 [place] [facility] PPSV23 (PNEUMOVAX) Branch Pneumococcal 2021-02-16 Completed [facility] Pol[facility]accharide, 00:00:00 [place] [facility] PPSV23 (PNEUMOVAX) Branch Pneumococcal 2021-02-16 Completed [facility] Pol[facility]accharide, 00:00:00 [place] [facility] PPSV23 (PNEUMOVAX) Branch Pneumococcal 2021-02-16 Completed [facility] Pol[facility]accharide, 00:00:00 [place] [facility] PPSV23 (PNEUMOVAX) Branch Pneumococcal 2021-02-16 Completed [facility] Pol[facility]accharide, 00:00:00 [place] [facility] PPSV23 (PNEUMOVAX) Branch Pneumococcal 2021-02-16 Completed [facility] Pol[facility]accharide, 00:00:00 [place] [facility] PPSV23 (PNEUMOVAX) Branch Pneumococcal 2021-02-16 Completed [facility] Pol[facility]accharide, 00:00:00 [place] [facility] PPSV23 (PNEUMOVAX) Branch Pneumococcal 2021-02-16 Completed [facility] Pol[facility]accharide, 00:00:00 [place] [facility] PPSV23 (PNEUMOVAX) Branch Pneumococcal 2021-02-16 Completed [facility] Pol[facility]accharide, 00:00:00 [place] [facility] PPSV23 (PNEUMOVAX) Branch Pneumococcal 2021-02-16 Completed [facility] Pol[facility]accharide, 00:00:00 [place] [facility] PPSV23 (PNEUMOVAX) Branch Pneumococcal 2021-02-16 Completed [facility] Pol[facility]accharide, 00:00:00 [place] [facility] PPSV23 (PNEUMOVAX) Branch Pneumococcal 2021-02-16 Completed [facility] Pol[facility]accharide, 00:00:00 [place] [facility] PPSV23 (PNEUMOVAX) Branch Pneumococcal 2021-02-16 Completed [facility] Pol[facility]accharide, 00:00:00 [place] [facility] PPSV23 (PNEUMOVAX) Branch Pneumococcal 2021-02-16 Completed [facility] Pol[facility]accharide, 00:00:00 [place] [facility] PPSV23 (PNEUMOVAX) Branch Pneumococcal 2021-02-16 Completed [facility] Pol[facility]accharide, 00:00:00 [place] [facility] PPSV23 (PNEUMOVAX) Branch Pneumococcal 2021-02-16 Completed [facility] Pol[facility]accharide, 00:00:00 [place] [facility] PPSV23 (PNEUMOVAX) Branch Pneumococcal 2021-02-16 Completed [facility] Pol[facility]accharide, 00:00:00 [place] [facility] PPSV23 (PNEUMOVAX) Branch Pneumococcal 2021-02-16 Completed [facility] Pol[facility]accharide, 00:00:00 [place] [facility] PPSV23 (PNEUMOVAX) Branch Pneumococcal 2021-02-16 Completed [facility] Pol[facility]accharide, 00:00:00 [place] [facility] PPSV23 (PNEUMOVAX) Branch Pneumococcal 2021-02-16 Completed [facility] Pol[facility]accharide, 00:00:00 [place] [facility] PPSV23 (PNEUMOVAX) Branch Pneumococcal 2021-02-16 Completed [facility] Pol[facility]accharide, 00:00:00 [place] [facility] PPSV23 (PNEUMOVAX) Branch Pneumococcal 2021-02-16 Completed [facility] Pol[facility]accharide, 00:00:00 [place] [facility] PPSV23 (PNEUMOVAX) Branch Pneumococcal 2021-02-16 Completed [facility] Pol[facility]accharide, 00:00:00 [place] [facility] PPSV23 (PNEUMOVAX) Branch Pneumococcal 2021-02-16 Completed [facility] Pol[facility]accharide, 00:00:00 [place] [facility] PPSV23 (PNEUMOVAX) Branch Pneumococcal 2021-02-16 Completed [facility] Pol[facility]accharide, 00:00:00 [place] [facility] PPSV23 (PNEUMOVAX) Branch Pneumococcal 2021-02-16 Completed [facility] Pol[facility]accharide, 00:00:00 [place] [facility] PPSV23 (PNEUMOVAX) Branch Pneumococcal 2021-02-16 Completed [facility] Pol[facility]accharide, 00:00:00 [place] [facility] PPSV23 (PNEUMOVAX) Branch Pneumococcal 2021-02-16 Completed [facility] Pol[facility]accharide, 00:00:00 [place] [facility] PPSV23 (PNEUMOVAX) Branch Pneumococcal 2021-02-16 Completed [facility] Pol[facility]accharide, 00:00:00 [place] [facility] PPSV23 (PNEUMOVAX) Branch Pneumococcal 2021-02-16 Completed [facility] Pol[facility]accharide, 00:00:00 [place] [facility] PPSV23 (PNEUMOVAX) Branch Pneumococcal 2021-02-16 Completed [facility] Pol[facility]accharide, 00:00:00 [place] [facility] PPSV23 (PNEUMOVAX) Branch Pneumococcal 2021-02-16 Completed [facility] Pol[facility]accharide, 00:00:00 [place] [facility] PPSV23 (PNEUMOVAX) Branch Pneumococcal 2021-02-16 Completed [facility] Polysaccharide, 00:00:00 [place] [facility] PPSV23 (PNEUMOVAX) Branch Pneumococcal 2021-02-16 Completed [facility] Polysaccharide, 00:00:00 [place] [facility] PPSV23 (PNEUMOVAX) Branch Pneumococcal 2021-02-16 Completed [facility] Pol[facility], 00:00:00 [place] [facility] PPSV23 (PNEUMOVAX) Branch SARS-COV-2 COVID-19 2020-08-15 Completed [facility] of MODERNA 12+ YRS 00:00:00 [place] [facility] VACCINE [facility] SARS-COV-2 COVID-19 2020-08-15 Completed [facility] MODERNA 12+ YRS 00:00:00 [place] [facility] VACCINE [facility] SARS-COV-2 COVID-19 2020-08-15 Completed [facility] of MODERNA 12+ YRS 00:00:00 [place] [facility] VACCINE [facility] SARS-COV-2 COVID-19 2020-08-15 Completed [facility] of MODERNA 12+ YRS 00:00:00 [place] [facility] VACCINE [facility] SARS-COV-2 COVID-19 2020-08-15 Completed [facility] of MODERNA 12+ YRS 00:00:00 [place] [facility] VACCINE [facility] SARS-COV-2 COVID-19 2020-08-15 Completed [facility] of MODERNA 12+ YRS 00:00:00 [place] [facility] VACCINE [facility] SARS-COV-2 COVID-19 2020-08-15 Completed [facility] of MODERNA 12+ YRS 00:00:00 [place] [facility] VACCINE [facility] SARS-COV-2 COVID-19 2020-08-15 Completed [facility] of MODERNA 12+ YRS 00:00:00 [place] [facility] VACCINE [facility] SARS-COV-2 COVID-19 2020-08-15 Completed [facility] of MODERNA 12+ YRS 00:00:00 [place] [facility] VACCINE [facility] SARS-COV-2 COVID-19 2020-08-15 Completed [facility] of MODERNA 12+ YRS 00:00:00 [place] [facility] VACCINE [facility] SARS-COV-2 COVID-19 2020-08-15 Completed [facility] of MODERNA 12+ YRS 00:00:00 [place] [facility] VACCINE [facility] SARS-COV-2 COVID-19 2020-08-15 Completed [facility] of MODERNA 12+ YRS 00:00:00 [place] [facility] VACCINE [facility] SARS-COV-2 COVID-19 2020-08-15 Completed [facility] of MODERNA 12+ YRS 00:00:00 [place] [facility] VACCINE [facility] SARS-COV-2 COVID-19 2020-08-15 Completed [facility] of MODERNA 12+ YRS 00:00:00 [place] [facility] VACCINE [facility] SARS-COV-2 COVID-19 2020-08-15 Completed [facility] of MODERNA 12+ YRS 00:00:00 [place] [facility] VACCINE [facility] SARS-COV-2 COVID-19 2020-08-15 Completed [facility] of MODERNA 12+ YRS 00:00:00 [place] [facility] VACCINE [facility] SARS-COV-2 COVID-19 2020-08-15 Completed [facility] of MODERNA 12+ YRS 00:00:00 [place] [facility] VACCINE [facility] SARS-COV-2 COVID-19 2020-08-15 Completed [facility] of MODERNA 12+ YRS 00:00:00 [place] [facility] VACCINE [facility] SARS-COV-2 COVID-19 2020-08-15 Completed [facility] of MODERNA 12+ YRS 00:00:00 [place] [facility] VACCINE [facility] SARS-COV-2 COVID-19 2020-08-15 Completed [facility] of MODERNA 12+ YRS 00:00:00 [place] [facility] VACCINE [facility] SARS-COV-2 COVID-19 2020-08-15 Completed [facility] of MODERNA 12+ YRS 00:00:00 [place] [facility] VACCINE [facility] SARS-COV-2 COVID-19 2020-08-15 Completed [facility] of MODERNA 12+ YRS 00:00:00 [place] [facility] VACCINE [facility] SARS-COV-2 COVID-19 2020-08-15 Completed [facility] of MODERNA 12+ YRS 00:00:00 [place] [facility] VACCINE [facility] SARS-COV-2 COVID-19 2020-08-15 Completed [facility] of MODERNA 12+ YRS 00:00:00 [place] [facility] VACCINE [facility] SARS-COV-2 COVID-19 2020-08-15 Completed [facility] of MODERNA 12+ YRS 00:00:00 [place] [facility] VACCINE [facility] SARS-COV-2 COVID-19 2020-08-15 Completed [facility] of MODERNA 12+ YRS 00:00:00 [place] [facility] VACCINE [facility] SARS-COV-2 COVID-19 2020-08-15 Completed [facility] of MODERNA 12+ YRS 00:00:00 [place] [facility] VACCINE [facility] SARS-COV-2 COVID-19 2020-08-15 Completed [facility] of MODERNA 12+ YRS 00:00:00 [place] [facility] VACCINE [facility] SARS-COV-2 COVID-19 2020-08-15 Completed [facility] of MODERNA 12+ YRS 00:00:00 [place] [facility] VACCINE [facility] SARS-COV-2 COVID-19 2020-08-15 Completed [facility] of MODERNA 12+ YRS 00:00:00 [place] [facility] VACCINE [facility] SARS-COV-2 COVID-19 2020-08-15 Completed [facility] of MODERNA 12+ YRS 00:00:00 [place] [facility] VACCINE [facility] SARS-COV-2 COVID-19 2020-08-15 Completed [facility] of MODERNA 12+ YRS 00:00:00 [place] [facility] VACCINE [facility] SARS-COV-2 COVID-19 2020-08-15 Completed [facility] of MODERNA 12+ YRS 00:00:00 [place] [facility] VACCINE [facility] SARS-COV-2 COVID-19 2020-08-15 Completed [facility] of MODERNA 12+ YRS 00:00:00 [place] [facility] VACCINE [facility] SARS-COV-2 COVID-19 2020-08-15 Completed [facility] of MODERNA 12+ YRS 00:00:00 [place] [facility] VACCINE [facility] SARS-COV-2 COVID-19 2020-08-15 Completed [facility] of MODERNA 12+ YRS 00:00:00 [place] [facility] VACCINE [facility] SARS-COV-2 COVID-19 2020-08-15 Completed [facility] of MODERNA 12+ YRS 00:00:00 [place] [facility] VACCINE [facility] SARS-COV-2 COVID-19 2020-08-15 Completed [facility] of MODERNA 12+ YRS 00:00:00 [place] [facility] VACCINE [facility] SARS-COV-2 COVID-19 2020-08-15 Completed [facility] of MODERNA 12+ YRS 00:00:00 [place] [facility] VACCINE [facility] SARS-COV-2 COVID-19 2020-08-15 Completed [facility] of MODERNA 12+ YRS 00:00:00 [place] [facility] VACCINE [facility] SARS-COV-2 COVID-19 2020-08-15 Completed [facility] of MODERNA 12+ YRS 00:00:00 [place] [facility] VACCINE [facility] SARS-COV-2 COVID-19 2020-08-15 Completed [facility] of MODERNA 12+ YRS 00:00:00 [place] [facility] VACCINE [facility] SARS-COV-2 COVID-19 2020-08-15 Completed [facility] of MODERNA 12+ YRS 00:00:00 [place] [facility] VACCINE [facility] SARS-COV-2 COVID-19 2020-08-15 Completed [facility] of MODERNA 12+ YRS 00:00:00 [place] [facility] VACCINE [facility] SARS-COV-2 COVID-19 2020-08-15 Completed [facility] of MODERNA 12+ YRS 00:00:00 [place] [facility] VACCINE [facility] SARS-COV-2 COVID-19 2020-08-15 Completed [facility] of MODERNA 12+ YRS 00:00:00 [place] [facility] VACCINE [facility] SARS-COV-2 COVID-19 2020-08-15 Completed [facility] of MODERNA 12+ YRS 00:00:00 [place] [facility] VACCINE [facility] SARS-COV-2 COVID-19 2020-08-15 Completed [facility] of MODERNA 12+ YRS 00:00:00 [place] [facility] VACCINE [facility] SARS-COV-2 COVID-19 2020-08-15 Completed [facility] of MODERNA 12+ YRS 00:00:00 [place] [facility] VACCINE [facility] SARS-COV-2 COVID-19 2020-08-15 Completed [facility] of MODERNA 12+ YRS 00:00:00 [place] [facility] VACCINE [facility] SARS-COV-2 COVID-19 2020-08-15 Completed [facility] of MODERNA 12+ YRS 00:00:00 [place] [facility] VACCINE [facility] SARS-COV-2 COVID-19 2020-08-15 Completed [facility] of MODERNA 12+ YRS 00:00:00 [place] [facility] VACCINE [facility] SARS-COV-2 COVID-19 2020-08-15 Completed [facility] of MODERNA 12+ YRS 00:00:00 [place] [facility] VACCINE [facility] SARS-COV-2 COVID-19 2020-08-15 Completed [facility] of MODERNA 12+ YRS 00:00:00 [place] [facility] VACCINE [facility] SARS-COV-2 COVID-19 2020-08-15 Completed [facility] MODERNA VACCINE 00:00:00 [place] [facility] SARS-COV-2 COVID-19 2020-08-15 Completed [facility] MODERNA VACCINE 00:00:00 [place] [facility] SARS-COV-2 COVID-19 2020-08-15 Completed [facility] MODERNA VACCINE 00:00:00 [place] [facility] SARS-COV-2 COVID-19 2020-08-15 Completed [facility] MODERNA VACCINE 00:00:00 [place] [facility] SARS-COV-2 COVID-19 2020-08-15 Completed [facility] MODERNA VACCINE 00:00:00 [place] [facility] SARS-COV-2 COVID-19 2020-08-15 Completed [facility] of MODERNA VACCINE 00:00:00 [place] [facility] SARS-COV-2 COVID-19 2020-08-15 Completed [facility] MODERNA VACCINE 00:00:00 [place] [facility] SARS-COV-2 COVID-19 2020-08-15 Completed [facility] MODERNA VACCINE 00:00:00 [place] [facility] SARS-COV-2 COVID-19 2020-08-15 Completed [facility] of MODERNA VACCINE 00:00:00 [place] [facility] SARS-COV-2 COVID-19 2020-08-15 Completed [facility] MODERNA VACCINE 00:00:00 [place] [facility] SARS-COV-2 COVID-19 2020-08-15 Completed [facility] MODERNA VACCINE 00:00:00 [place] [facility] SARS-COV-2 COVID-19 2020-08-15 Completed [facility] MODERNA VACCINE 00:00:00 [place] [facility] SARS-COV-2 COVID-19 2020-08-15 Completed [facility] MODERNA VACCINE 00:00:00 [place] [facility] SARS-COV-2 COVID-19 2020-08-15 Completed [facility] MODERNA VACCINE 00:00:00 [place] [facility] SARS-COV-2 COVID-19 2020-08-15 Completed [facility] of MODERNA 12+ YRS 00:00:00 [place] [facility] VACCINE [facility] SARS-COV-2 COVID-19 2020-08-15 Completed [facility] of MODERNA 12+ YRS 00:00:00 [place] [facility] VACCINE [facility] SARS-COV-2 COVID-19 2020-08-15 Completed [facility] of MODERNA 12+ YRS 00:00:00 [place] [facility] VACCINE [facility] SARS-COV-2 COVID-19 2020-08-15 Completed [facility] of MODERNA 12+ YRS 00:00:00 [place] [facility] VACCINE [facility] SARS-COV-2 COVID-19 2020-08-15 Completed [facility] of MODERNA 12+ YRS 00:00:00 [place] [facility] VACCINE [facility] SARS-COV-2 COVID-19 2020-08-15 Completed [facility] of MODERNA 12+ YRS 00:00:00 [place] [facility] VACCINE [facility] SARS-COV-2 COVID-19 2020-08-15 Completed [facility] of MODERNA 12+ YRS 00:00:00 [place] [facility] VACCINE [facility] SARS-COV-2 COVID-19 2020-08-15 Completed [facility] of MODERNA 12+ YRS 00:00:00 [place] [facility] VACCINE [facility] SARS-COV-2 COVID-19 2020-08-15 Completed [facility] of MODERNA 12+ YRS 00:00:00 [place] [facility] VACCINE [facility] SARS-COV-2 COVID-19 2020-08-15 Completed [facility] of MODERNA 12+ YRS 00:00:00 [place] [facility] VACCINE [facility] SARS-COV-2 COVID-19 2020-08-15 Completed [facility] of MODERNA 12+ YRS 00:00:00 [place] [facility] VACCINE [facility] SARS-COV-2 COVID-19 2020-08-15 Completed [facility] of MODERNA 12+ YRS 00:00:00 [place] [facility] VACCINE [facility] SARS-COV-2 COVID-19 2020-08-15 Completed [facility] of MODERNA 12+ YRS 00:00:00 [place] [facility] VACCINE [facility] SARS-COV-2 COVID-19 2020-08-15 Completed [facility] of MODERNA 12+ YRS 00:00:00 [place] [facility] VACCINE [facility] SARS-COV-2 COVID-19 2020-08-15 Completed [facility] of MODERNA 12+ YRS 00:00:00 [place] [facility] VACCINE [facility] SARS-COV-2 COVID-19 2020-08-15 Completed [facility] of MODERNA 12+ YRS 00:00:00 [place] [facility] VACCINE [facility] SARS-COV-2 COVID-19 2020-08-15 Completed [facility] of MODERNA 12+ YRS 00:00:00 [place] [facility] VACCINE [facility] SARS-COV-2 COVID-19 2020-08-15 Completed [facility] of MODERNA 12+ YRS 00:00:00 [place] [facility] VACCINE [facility] SARS-COV-2 COVID-19 2020-08-15 Completed [facility] of MODERNA 12+ YRS 00:00:00 [place] [facility] VACCINE [facility] SARS-COV-2 COVID-19 2020-08-15 Completed [facility] of MODERNA 12+ YRS 00:00:00 [place] [facility] VACCINE [facility] SARS-COV-2 COVID-19 2020-08-15 Completed [facility] of MODERNA 12+ YRS 00:00:00 [place] [facility] VACCINE [facility] SARS-COV-2 COVID-19 2020-08-15 Completed [facility] of MODERNA 12+ YRS 00:00:00 [place] [facility] VACCINE [facility] SARS-COV-2 COVID-19 2020-08-15 Completed [facility] of MODERNA 12+ YRS 00:00:00 [place] [facility] VACCINE [facility] SARS-COV-2 COVID-19 2020-08-15 Completed [facility] of MODERNA 12+ YRS 00:00:00 [place] [facility] VACCINE [facility] SARS-COV-2 COVID-19 2020-08-15 Completed [facility] of MODERNA 12+ YRS 00:00:00 [place] [facility] VACCINE [facility] SARS-COV-2 COVID-19 2020-08-15 Completed [facility] of MODERNA 12+ YRS 00:00:00 [place] [facility] VACCINE [facility] SARS-COV-2 COVID-19 2020-08-15 Completed [facility] of MODERNA 12+ YRS 00:00:00 [place] [facility] VACCINE [facility] SARS-COV-2 COVID-19 2020-07-18 Completed [facility] of MODERNA 12+ YRS 00:00:00 [place] [facility] VACCINE [facility] SARS-COV-2 COVID-19 2020-07-18 Completed [facility] of MODERNA 12+ YRS 00:00:00 [place] [facility] VACCINE [facility] SARS-COV-2 COVID-19 2020-07-18 Completed [facility] of MODERNA 12+ YRS 00:00:00 [place] [facility] VACCINE [facility] SARS-COV-2 COVID-19 2020-07-18 Completed [facility] of MODERNA 12+ YRS 00:00:00 [place] [facility] VACCINE [facility] SARS-COV-2 COVID-19 2020-07-18 Completed [facility] of MODERNA 12+ YRS 00:00:00 [place] [facility] VACCINE [facility] SARS-COV-2 COVID-19 2020-07-18 Completed [facility] of MODERNA 12+ YRS 00:00:00 [place] [facility] VACCINE [facility] SARS-COV-2 COVID-19 2020-07-18 Completed [facility] of MODERNA 12+ YRS 00:00:00 [place] [facility] VACCINE [facility] SARS-COV-2 COVID-19 2020-07-18 Completed [facility] of MODERNA 12+ YRS 00:00:00 [place] [facility] VACCINE [facility] SARS-COV-2 COVID-19 2020-07-18 Completed [facility] of MODERNA 12+ YRS 00:00:00 [place] [facility] VACCINE [facility] SARS-COV-2 COVID-19 2020-07-18 Completed [facility] of MODERNA 12+ YRS 00:00:00 [place] [facility] VACCINE [facility] SARS-COV-2 COVID-19 2020-07-18 Completed [facility] of MODERNA 12+ YRS 00:00:00 [place] [facility] VACCINE [facility] SARS-COV-2 COVID-19 2020-07-18 Completed [facility] of MODERNA 12+ YRS 00:00:00 [place] [facility] VACCINE [facility] SARS-COV-2 COVID-19 2020-07-18 Completed [facility] of MODERNA 12+ YRS 00:00:00 [place] [facility] VACCINE [facility] SARS-COV-2 COVID-19 2020-07-18 Completed [facility] of MODERNA 12+ YRS 00:00:00 [place] [facility] VACCINE [facility] SARS-COV-2 COVID-19 2020-07-18 Completed [facility] of MODERNA 12+ YRS 00:00:00 [place] [facility] VACCINE [facility] SARS-COV-2 COVID-19 2020-07-18 Completed [facility] of MODERNA 12+ YRS 00:00:00 [place] [facility] VACCINE [facility] SARS-COV-2 COVID-19 2020-07-18 Completed [facility] of MODERNA 12+ YRS 00:00:00 [place] [facility] VACCINE [facility] SARS-COV-2 COVID-19 2020-07-18 Completed [facility] of MODERNA 12+ YRS 00:00:00 [place] [facility] VACCINE [facility] SARS-COV-2 COVID-19 2020-07-18 Completed [facility] of MODERNA 12+ YRS 00:00:00 [place] [facility] VACCINE [facility] SARS-COV-2 COVID-19 2020-07-18 Completed [facility] of MODERNA 12+ YRS 00:00:00 [place] [facility] VACCINE [facility] SARS-COV-2 COVID-19 2020-07-18 Completed [facility] of MODERNA 12+ YRS 00:00:00 [place] [facility] VACCINE [facility] SARS-COV-2 COVID-19 2020-07-18 Completed [facility] of MODERNA 12+ YRS 00:00:00 [place] [facility] VACCINE [facility] SARS-COV-2 COVID-19 2020-07-18 Completed [facility] of MODERNA 12+ YRS 00:00:00 [place] [facility] VACCINE [facility] SARS-COV-2 COVID-19 2020-07-18 Completed [facility] 12+ YRS 00:00:00 [place] [facility] SARS-COV-2 COVID-19 2020-07-18 Completed [facility] 12+ YRS 00:00:00 [place] [facility] SARS-COV-2 COVID-19 2020-07-18 Completed [facility] 12+ YRS 00:00:00 [place] [facility] SARS-COV-2 COVID-19 2020-07-18 Completed [facility] 12+ YRS 00:00:00 [place] [facility] SARS-COV-2 COVID-19 2020-07-18 Completed [facility] 12+ YRS 00:00:00 [place] [facility] SARS-COV-2 COVID-19 2020-07-18 Completed [facility] 12+ YRS 00:00:00 [place] [facility] SARS-COV-2 COVID-19 2020-07-18 Completed [facility] 12+ YRS 00:00:00 [place] [facility] SARS-COV-2 COVID-19 2020-07-18 Completed [facility] 12+ YRS 00:00:00 [place] [facility] SARS-COV-2 COVID-19 2020-07-18 Completed [facility] 12+ YRS 00:00:00 [place] [facility] SARS-COV-2 COVID-19 2020-07-18 Completed [facility] 12+ YRS 00:00:00 [place] [facility]INE [facility] SARS-COV-2 COVID-19 2020-07-18 Completed [facility] 12+ YRS 00:00:00 [place] [facility] SARS-COV-2 COVID-19 2020-07-18 Completed [facility] 12+ YRS 00:00:00 [place] [facility] SARS-COV-2 COVID-19 2020-07-18 Completed [facility] 12+ YRS 00:00:00 [place] [facility] SARS-COV-2 COVID-19 2020-07-18 Completed [facility] 12+ YRS 00:00:00 [place] [facility] SARS-COV-2 COVID-19 2020-07-18 Completed [facility] 12+ YRS 00:00:00 [place] [facility] SARS-COV-2 COVID-19 2020-07-18 Completed [facility] 12+ YRS 00:00:00 [place] [facility] SARS-COV-2 COVID-19 2020-07-18 Completed [facility] 12+ YRS 00:00:00 [place] [facility] SARS-COV-2 COVID-19 2020-07-18 Completed [facility] 12+ YRS 00:00:00 [place] [facility] SARS-COV-2 COVID-19 2020-07-18 Completed [facility] 12+ YRS 00:00:00 [facility] SARS-COV-2 COVID-19 2020-07-18 Completed [facility] 12+ YRS 00:00:00 [facility] SARS-COV-2 COVID-19 2020-07-18 Completed [facility] 12+ YRS 00:00:00 [facility] SARS-COV-2 COVID-19 2020-07-18 Completed [facility] 12+ YRS 00:00:00 [facility] SARS-COV-2 COVID-19 2020-07-18 Completed [facility] 12+ YRS 00:00:00 [place] [facility] SARS-COV-2 COVID-19 2020-07-18 Completed [facility] 12+ YRS 00:00:00 [place] [facility] SARS-COV-2 COVID-19 2020-07-18 Completed [facility] 12+ YRS 00:00:00 [place] [facility] SARS-COV-2 COVID-19 2020-07-18 Completed [facility] 12+ YRS 00:00:00 [place] [facility] SARS-COV-2 COVID-19 2020-07-18 Completed [facility] 12+ YRS 00:00:00 [place] [facility] SARS-COV-2 COVID-19 2020-07-18 Completed [facility] 12+ YRS 00:00:00 [facility] SARS-COV-2 COVID-19 2020-07-18 Completed [facility] 12+ YRS 00:00:00 [facility] SARS-COV-2 COVID-19 2020-07-18 Completed [facility] 12+ YRS 00:00:00 [facility] SARS-COV-2 COVID-19 2020-07-18 Completed [facility] 12+ YRS 00:00:00 [facility] SARS-COV-2 COVID-19 2020-07-18 Completed [facility] VACCINE 00:00:00 [facility] SARS-COV-2 COVID-19 2020-07-18 Completed [facility] VACCINE 00:00:00 [facility] SARS-COV-2 COVID-19 2020-07-18 Completed [facility] VACCINE 00:00:00 [facility] SARS-COV-2 COVID-19 2020-07-18 Completed [facility] VACCINE 00:00:00 [facility] SARS-COV-2 COVID-19 2020-07-18 Completed [facility] VACCINE 00:00:00 [facility] SARS-COV-2 COVID-19 2020-07-18 Completed [facility] VACCINE 00:00:00 [place] [facility] SARS-COV-2 COVID-19 2020-07-18 Completed [facility] VACCINE 00:00:00 [place] [facility] SARS-COV-2 COVID-19 2020-07-18 Completed [facility] VACCINE 00:00:00 [facility] SARS-COV-2 COVID-19 2020-07-18 Completed [facility] VACCINE 00:00:00 [facility] SARS-COV-2 COVID-19 2020-07-18 Completed [facility] VACCINE 00:00:00 [place] [facility] SARS-COV-2 COVID-19 2020-07-18 Completed [facility] VACCINE 00:00:00 [place] [facility] SARS-COV-2 COVID-19 2020-07-18 Completed [facility] VACCINE 00:00:00 [place] [facility] SARS-COV-2 COVID-19 2020-07-18 Completed [facility] VACCINE 00:00:00 [place] [facility] SARS-COV-2 COVID-19 2020-07-18 Completed [facility] VACCINE 00:00:00 [place] [facility] SARS-COV-2 COVID-19 2020-07-18 Completed [facility] 12+ YRS 00:00:00 [place] [facility] SARS-COV-2 COVID-19 2020-07-18 Completed [facility] 12+ YRS 00:00:00 [place] [facility] SARS-COV-2 COVID-19 2020-07-18 Completed [facility] 12+ YRS 00:00:00 [place] [facility] SARS-COV-2 COVID-19 2020-07-18 Completed [facility] 12+ YRS 00:00:00 [place] [facility] SARS-COV-2 COVID-19 2020-07-18 Completed [facility] 12+ YRS 00:00:00 [place] [facility] SARS-COV-2 COVID-19 2020-07-18 Completed [facility] 12+ YRS 00:00:00 [place] [facility] SARS-COV-2 COVID-19 2020-07-18 Completed [facility] 12+ YRS 00:00:00 [place] [facility] SARS-COV-2 COVID-19 2020-07-18 Completed [facility] 12+ YRS 00:00:00 [place] [facility] SARS-COV-2 COVID-19 2020-07-18 Completed [facility] 12+ YRS 00:00:00 [place] [facility] SARS-COV-2 COVID-19 2020-07-18 Completed [facility] 12+ YRS 00:00:00 [place] [facility] SARS-COV-2 COVID-19 2020-07-18 Completed [facility] 12+ YRS 00:00:00 [place] [facility] SARS-COV-2 COVID-19 2020-07-18 Completed [facility] 12+ YRS 00:00:00 [place] [facility] SARS-COV-2 COVID-19 2020-07-18 Completed [facility] 12+ YRS 00:00:00 [place] [facility] SARS-COV-2 COVID-19 2020-07-18 Completed [facility] 12+ YRS 00:00:00 [place] [facility] SARS-COV-2 COVID-19 2020-07-18 Completed [facility] 12+ YRS 00:00:00 [place] [facility] SARS-COV-2 COVID-19 2020-07-18 Completed [facility] 12+ YRS 00:00:00 [place] [facility] SARS-COV-2 COVID-19 2020-07-18 Completed [facility] 12+ YRS 00:00:00 [place] [facility] SARS-COV-2 COVID-19 2020-07-18 Completed [facility] 12+ YRS 00:00:00 [place] [facility] SARS-COV-2 COVID-19 2020-07-18 Completed [facility] 12+ YRS 00:00:00 [place] [facility] SARS-COV-2 COVID-19 2020-07-18 Completed [facility] 12+ YRS 00:00:00 [place] [facility] SARS-COV-2 COVID-19 2020-07-18 Completed [facility] 12+ YRS 00:00:00 [place] [facility] SARS-COV-2 COVID-19 2020-07-18 Completed [facility] 12+ YRS 00:00:00 [place] [facility] SARS-COV-2 COVID-19 2020-07-18 Completed [facility] 12+ YRS 00:00:00 [facility] ical VACCINE Branch SARS-COV-2 COVID-19 2020-07-18 Completed [facility] 12+ YRS 00:00:00 [facility] ical VACCINE Branch SARS-COV-2 COVID-19 2020-07-18 Completed [facility] 12+ YRS 00:00:00 [facility] ical VACCINE Branch SARS-COV-2 COVID-19 2020-07-18 Completed [facility] 12+ YRS 00:00:00 [facility] ical VACCINE Branch SARS-COV-2 COVID-19 2020-07-18 Completed [facility] 12+ YRS 00:00:00 [facility] VACCINE Branch Influenza High Dose 2020-05-13 Completed [facility] 00:00:00 [facility] Influenza High Dose 2020-05-13 Completed [facility] 00:00:00 [facility] Influenza High Dose 2020-05-13 Completed [facility] 00:00:00 [facility] Influenza High Dose 2020-05-13 Completed [facility] 00:00:00 [facility] Influenza High Dose 2020-05-13 Completed [facility] 00:00:00 [facility] Influenza High Dose 2020-05-13 Completed [facility] 00:00:00 [facility] Influenza High Dose 2020-05-13 Completed [facility] 00:00:00 [facility] Influenza High Dose 2020-05-13 Completed [facility] 00:00:00 [facility] Influenza High Dose 2020-05-13 Completed [facility] 00:00:00 [facility] Influenza High Dose 2020-05-13 Completed [facility] 00:00:00 [facility] Influenza High Dose 2020-05-13 Completed [facility] 00:00:00 [facility] Influenza High Dose 2020-05-13 Completed [facility] 00:00:00 [facility] Influenza High Dose 2020-05-13 Completed [facility] 00:00:00 [facility] Influenza High Dose 2020-05-13 Completed [facility] 00:00:00 [facility] Influenza High Dose 2020-05-13 Completed [facility] 00:00:00 [facility] Influenza High Dose 2020-05-13 Completed [facility] 00:00:00 [facility] Influenza High Dose 2020-05-13 Completed [facility] 00:00:00 [facility] Influenza High Dose 2020-05-13 Completed [facility] 00:00:00 [facility] Influenza High Dose 2020-05-13 Completed [facility] 00:00:00 [facility] Influenza High Dose 2020-05-13 Completed [facility] 00:00:00 [facility] Influenza High Dose 2020-05-13 Completed [facility] 00:00:00 [facility] Influenza High Dose 2020-05-13 Completed [facility] 00:00:00 [facility] Influenza High Dose 2020-05-13 Completed [facility] 00:00:00 [facility] Influenza High Dose 2020-05-13 Completed [facility] 00:00:00 [facility] Influenza High Dose 2020-05-13 Completed [facility] 00:00:00 [facility] Influenza High Dose 2020-05-13 Completed [facility] 00:00:00 [facility] Influenza High Dose 2020-05-13 Completed [facility] 00:00:00 [facility] Influenza High Dose 2020-05-13 Completed [facility] 00:00:00 [facility] Influenza High Dose 2020-05-13 Completed [facility] 00:00:00 [facility] Influenza High Dose 2020-05-13 Completed [facility] 00:00:00 [facility] Influenza High Dose 2020-05-13 Completed [facility] 00:00:00 [facility] Influenza High Dose 2020-05-13 Completed [facility] 00:00:00 [facility] Influenza High Dose 2020-05-13 Completed [facility] 00:00:00 [facility] Influenza High Dose 2020-05-13 Completed [facility] 00:00:00 [facility] Influenza High Dose 2020-05-13 Completed [facility] 00:00:00 [facility] Influenza High Dose 2020-05-13 Completed [facility] 00:00:00 [facility] Influenza High Dose 2020-05-13 Completed [facility] 00:00:00 [facility] Influenza High Dose 2020-05-13 Completed [facility] 00:00:00 [facility] Influenza High Dose 2020-05-13 Completed [facility] 00:00:00 [facility] Influenza High Dose 2020-05-13 Completed [facility] 00:00:00 [facility] Influenza High Dose 2020-05-13 Completed [facility] 00:00:00 [facility] Influenza High Dose 2020-05-13 Completed [facility] 00:00:00 [facility] Influenza High Dose 2020-05-13 Completed [facility] 00:00:00 [facility] Influenza High Dose 2020-05-13 Completed [facility] 00:00:00 [facility] Influenza High Dose 2020-05-13 Completed [facility] 00:00:00 [facility] Influenza High Dose 2020-05-13 Completed [facility] 00:00:00 [facility] Influenza High Dose 2020-05-13 Completed [facility] 00:00:00 [facility] Influenza High Dose 2020-05-13 Completed [facility] 00:00:00 [facility] Influenza High Dose 2020-05-13 Completed [facility] 00:00:00 [facility] Influenza High Dose 2020-05-13 Completed [facility] 00:00:00 [facility] Influenza High Dose 2020-05-13 Completed [facility] 00:00:00 [facility] Influenza High Dose 2020-05-13 Completed [facility] 00:00:00 [facility] Influenza High Dose 2020-05-13 Completed [facility] 00:00:00 [facility] Influenza High Dose 2020-05-13 Completed [facility] 00:00:00 [facility] Influenza High Dose 2020-05-13 Completed [facility] 00:00:00 [facility] Influenza High Dose 2020-05-13 Completed [facility] 00:00:00 [facility] Influenza High Dose 2020-05-13 Completed [facility] 00:00:00 [facility] Influenza High Dose 2020-05-13 Completed [facility] 00:00:00 [facility] Influenza High Dose 2020-05-13 Completed [facility] 00:00:00 [facility] Influenza High Dose 2020-05-13 Completed [facility] 00:00:00 [facility] Influenza High Dose 2020-05-13 Completed [facility] 00:00:00 [facility] Influenza High Dose 2020-05-13 Completed [facility] 00:00:00 [facility] Influenza High Dose 2020-05-13 Completed [facility] 00:00:00 [facility] Influenza High Dose 2020-05-13 Completed [facility] 00:00:00 [facility] Influenza High Dose 2020-05-13 Completed [facility] 00:00:00 [facility] Influenza High Dose 2020-05-13 Completed [facility] 00:00:00 [facility] Influenza High Dose 2020-05-13 Completed [facility] 00:00:00 [facility] Influenza High Dose 2020-05-13 Completed [facility] 00:00:00 [facility] Influenza High Dose 2020-05-13 Completed [facility] 00:00:00 [facility] Influenza High Dose 2020-05-13 Completed [facility] 00:00:00 [facility] Influenza High Dose 2020-05-13 Completed [facility] 00:00:00 [facility] Influenza High Dose 2020-05-13 Completed [facility] 00:00:00 [facility] Influenza High Dose 2020-05-13 Completed [facility] 00:00:00 [facility] Influenza High Dose 2020-05-13 Completed [facility] 00:00:00 [facility] Influenza High Dose 2020-05-13 Completed [facility] 00:00:00 [facility] Influenza High Dose 2020-05-13 Completed [facility] 00:00:00 [facility] Influenza High Dose 2020-05-13 Completed [facility] 00:00:00 [facility] Influenza High Dose 2020-05-13 Completed [facility] 00:00:00 [facility] Influenza High Dose 2020-05-13 Completed [facility] 00:00:00 [facility] Influenza High Dose 2020-05-13 Completed [facility] 00:00:00 [facility] Influenza High Dose 2020-05-13 Completed [facility] 00:00:00 [facility] Influenza High Dose 2020-05-13 Completed [facility] 00:00:00 [facility] Influenza High Dose 2020-05-13 Completed [facility] 00:00:00 [facility] Influenza High Dose 2020-05-13 Completed [facility] 00:00:00 [facility] Influenza High Dose 2020-05-13 Completed [facility] 00:00:00 [facility] Influenza High Dose 2020-05-13 Completed [facility] 00:00:00 [facility] Influenza High Dose 2020-05-13 Completed [facility] 00:00:00 [facility] Influenza High Dose 2020-05-13 Completed [facility] 00:00:00 [facility] Influenza High Dose 2020-05-13 Completed [facility] 00:00:00 [facility] Influenza High Dose 2020-05-13 Completed [facility] 00:00:00 [facility] Influenza High Dose 2020-05-13 Completed [facility] 00:00:00 [facility] Influenza High Dose 2020-05-13 Completed [facility] 00:00:00 [facility] Influenza High Dose 2020-05-13 Completed [facility] 00:00:00 [facility] Influenza High Dose 2020-05-13 Completed [facility] 00:00:00 [facility] Influenza High Dose 2020-05-13 Completed [facility] 00:00:00 [facility] Influenza High Dose 2019-04-06 Completed [facility] of 00:00:00 [facility] Influenza High Dose 2019-04-06 Completed [facility] of 00:00:00 [facility] Influenza High Dose 2019-04-06 Completed [facility] of 00:00:00 [facility] Influenza High Dose 2019-04-06 Completed [facility] of 00:00:00 [facility] Influenza High Dose 2019-04-06 Completed [facility] of 00:00:00 [facility] Influenza High Dose 2019-04-06 Completed [facility] of 00:00:00 [facility] Influenza High Dose 2019-04-06 Completed [facility] of 00:00:00 [facility] Influenza High Dose 2019-04-06 Completed [facility] of 00:00:00 [facility] Influenza High Dose 2019-04-06 Completed [facility] of 00:00:00 [facility] Influenza High Dose 2019-04-06 Completed [facility] of 00:00:00 [facility] Influenza High Dose 2019-04-06 Completed [facility] of 00:00:00 [facility] Influenza High Dose 2019-04-06 Completed [facility] of 00:00:00 [facility] Influenza High Dose 2019-04-06 Completed [facility] of 00:00:00 [facility] Influenza High Dose 2019-04-06 Completed [facility] of 00:00:00 [facility] Influenza High Dose 2019-04-06 Completed [facility] of 00:00:00 [facility] Influenza High Dose 2019-04-06 Completed [facility] of 00:00:00 [facility] Influenza High Dose 2019-04-06 Completed [facility] of 00:00:00 [facility] Influenza High Dose 2019-04-06 Completed [facility] of 00:00:00 [facility] Influenza High Dose 2019-04-06 Completed [facility] of 00:00:00 [facility] Influenza High Dose 2019-04-06 Completed [facility] of 00:00:00 [facility] Influenza High Dose 2019-04-06 Completed [facility] of 00:00:00 [facility] Influenza High Dose 2019-04-06 Completed [facility] of 00:00:00 [facility] Influenza High Dose 2019-04-06 Completed [facility] of 00:00:00 [facility] Influenza High Dose 2019-04-06 Completed [facility] of 00:00:00 [facility] Influenza High Dose 2019-04-06 Completed [facility] of 00:00:00 [facility] Influenza High Dose 2019-04-06 Completed [facility] of 00:00:00 [facility] Influenza High Dose 2019-04-06 Completed [facility] of 00:00:00 [facility] Influenza High Dose 2019-04-06 Completed [facility] of 00:00:00 [facility] Influenza High Dose 2019-04-06 Completed [facility] of 00:00:00 [facility] Influenza High Dose 2019-04-06 Completed [facility] of 00:00:00 [facility] Influenza High Dose 2019-04-06 Completed [facility] of 00:00:00 [facility] Influenza High Dose 2019-04-06 Completed [facility] of 00:00:00 [facility] Influenza High Dose 2019-04-06 Completed [facility] of 00:00:00 [facility] Influenza High Dose 2019-04-06 Completed [facility] of 00:00:00 [facility] Influenza High Dose 2019-04-06 Completed [facility] of 00:00:00 [facility] Influenza High Dose 2019-04-06 Completed [facility] of 00:00:00 [facility] Influenza High Dose 2019-04-06 Completed [facility] of 00:00:00 [facility] Influenza High Dose 2019-04-06 Completed [facility] of 00:00:00 [facility] Influenza High Dose 2019-04-06 Completed [facility] of 00:00:00 [facility] Influenza High Dose 2019-04-06 Completed [facility] of 00:00:00 [facility] Influenza High Dose 2019-04-06 Completed [facility] of 00:00:00 [facility] Influenza High Dose 2019-04-06 Completed [facility] of 00:00:00 [facility] Influenza High Dose 2019-04-06 Completed [facility] of 00:00:00 [facility] Influenza High Dose 2019-04-06 Completed [facility] of 00:00:00 [facility] Influenza High Dose 2019-04-06 Completed [facility] of 00:00:00 [facility] Influenza High Dose 2019-04-06 Completed [facility] of 00:00:00 [facility] Influenza High Dose 2019-04-06 Completed [facility] of 00:00:00 [facility] Influenza High Dose 2019-04-06 Completed [facility] of 00:00:00 [facility] Influenza High Dose 2019-04-06 Completed [facility] of 00:00:00 [facility] Influenza High Dose 2019-04-06 Completed [facility] of 00:00:00 [facility] Influenza High Dose 2019-04-06 Completed [facility] of 00:00:00 [facility] Influenza High Dose 2019-04-06 Completed [facility] of 00:00:00 [facility] Influenza High Dose 2019-04-06 Completed [facility] of 00:00:00 [facility] Influenza High Dose 2019-04-06 Completed [facility] of 00:00:00 [facility] Influenza High Dose 2019-04-06 Completed [facility] of 00:00:00 [facility] Influenza High Dose 2019-04-06 Completed [facility] of 00:00:00 [facility] Influenza High Dose 2019-04-06 Completed [facility] of 00:00:00 [facility] Influenza High Dose 2019-04-06 Completed [facility] of 00:00:00 [facility] Influenza High Dose 2019-04-06 Completed [facility] of 00:00:00 [facility] Influenza High Dose 2019-04-06 Completed [facility] of 00:00:00 [facility] Influenza High Dose 2019-04-06 Completed [facility] of 00:00:00 [facility] Influenza High Dose 2019-04-06 Completed [facility] of 00:00:00 [facility] Influenza High Dose 2019-04-06 Completed [facility] of 00:00:00 [facility] Influenza High Dose 2019-04-06 Completed [facility] of 00:00:00 [facility] Influenza High Dose 2019-04-06 Completed [facility] of 00:00:00 [facility] Influenza High Dose 2019-04-06 Completed [facility] of 00:00:00 [facility] Influenza High Dose 2019-04-06 Completed [facility] of 00:00:00 [facility] Influenza High Dose 2019-04-06 Completed [facility] 00:00:00 [facility] Influenza High Dose 2019-04-06 Completed [facility] 00:00:00 [facility] Influenza High Dose 2019-04-06 Completed [facility] 00:00:00 [facility] Influenza High Dose 2019-04-06 Completed [facility] 00:00:00 [facility] Influenza High Dose 2019-04-06 Completed [facility] 00:00:00 [facility] Influenza High Dose 2019-04-06 Completed [facility] 00:00:00 [facility] Influenza High Dose 2019-04-06 Completed [facility] 00:00:00 [facility] Influenza High Dose 2019-04-06 Completed [facility] 00:00:00 [facility] Influenza High Dose 2019-04-06 Completed [facility] 00:00:00 [facility] Influenza High Dose 2019-04-06 Completed [facility] 00:00:00 [facility] Influenza High Dose 2019-04-06 Completed [facility] 00:00:00 [facility] Influenza High Dose 2019-04-06 Completed [facility] 00:00:00 [facility] Influenza High Dose 2019-04-06 Completed [facility] 00:00:00 [facility] Influenza High Dose 2019-04-06 Completed [facility] 00:00:00 [facility] Influenza High Dose 2019-04-06 Completed [facility] 00:00:00 [facility] Influenza High Dose 2019-04-06 Completed [facility] 00:00:00 [facility] Influenza High Dose 2019-04-06 Completed [facility] 00:00:00 [facility] Influenza High Dose 2019-04-06 Completed [facility] 00:00:00 [facility] Influenza High Dose 2019-04-06 Completed [facility] 00:00:00 [facility] Influenza High Dose 2019-04-06 Completed [facility] 00:00:00 [facility] Influenza High Dose 2019-04-06 Completed [facility] 00:00:00 [facility] Influenza High Dose 2019-04-06 Completed [facility] 00:00:00 [facility] Influenza High Dose 2019-04-06 Completed [facility] 00:00:00 [facility] Influenza High Dose 2019-04-06 Completed [facility] 00:00:00 [facility] Influenza High Dose 2019-04-06 Completed [facility] 00:00:00 [facility] Influenza High Dose 2019-04-06 Completed [facility] 00:00:00 [facility] Influenza High Dose 2019-04-06 Completed [facility] 00:00:00 [facility] Influenza High Dose 2019-04-06 Completed [facility] 00:00:00 [facility] Influenza High Dose 2018-04-11 Completed [facility] 00:00:00 [facility] Influenza High Dose 2018-04-11 Completed [facility] 00:00:00 [facility] Influenza High Dose 2018-04-11 Completed [facility] 00:00:00 [facility] Influenza High Dose 2018-04-11 Completed [facility] 00:00:00 [facility] Influenza High Dose 2018-04-11 Completed [facility] 00:00:00 [facility] Influenza High Dose 2018-04-11 Completed [facility] 00:00:00 [facility] Influenza High Dose 2018-04-11 Completed [facility] 00:00:00 [facility] Influenza High Dose 2018-04-11 Completed [facility] 00:00:00 [facility] Influenza High Dose 2018-04-11 Completed [facility] 00:00:00 [facility] Influenza High Dose 2018-04-11 Completed [facility] 00:00:00 [facility] Influenza High Dose 2018-04-11 Completed [facility] 00:00:00 [facility] Influenza High Dose 2018-04-11 Completed [facility] 00:00:00 [facility] Influenza High Dose 2018-04-11 Completed [facility] 00:00:00 [facility] Influenza High Dose 2018-04-11 Completed [facility] 00:00:00 [facility] Influenza High Dose 2018-04-11 Completed [facility] 00:00:00 [facility] Influenza High Dose 2018-04-11 Completed [facility] 00:00:00 [facility] Influenza High Dose 2018-04-11 Completed [facility] 00:00:00 [facility] Influenza High Dose 2018-04-11 Completed [facility] 00:00:00 [facility] Influenza High Dose 2018-04-11 Completed [facility] 00:00:00 [facility] Influenza High Dose 2018-04-11 Completed [facility] 00:00:00 [facility] Influenza High Dose 2018-04-11 Completed [facility] 00:00:00 [facility] Influenza High Dose 2018-04-11 Completed [facility] 00:00:00 [facility] Influenza High Dose 2018-04-11 Completed [facility] 00:00:00 [facility] Influenza High Dose 2018-04-11 Completed [facility] 00:00:00 [facility] Influenza High Dose 2018-04-11 Completed [facility] 00:00:00 [facility] Influenza High Dose 2018-04-11 Completed [facility] 00:00:00 [facility] Influenza High Dose 2018-04-11 Completed [facility] 00:00:00 [facility] Influenza High Dose 2018-04-11 Completed [facility] 00:00:00 [facility] Influenza High Dose 2018-04-11 Completed [facility] 00:00:00 [facility] Influenza High Dose 2018-04-11 Completed [facility] 00:00:00 [facility] Influenza High Dose 2018-04-11 Completed [facility] 00:00:00 [facility] Influenza High Dose 2018-04-11 Completed [facility] 00:00:00 [facility] Influenza High Dose 2018-04-11 Completed [facility] 00:00:00 [facility] Influenza High Dose 2018-04-11 Completed [facility] 00:00:00 [facility] Influenza High Dose 2018-04-11 Completed [facility] 00:00:00 [facility] Influenza High Dose 2018-04-11 Completed [facility] 00:00:00 [facility] Influenza High Dose 2018-04-11 Completed [facility] 00:00:00 [facility] Influenza High Dose 2018-04-11 Completed [facility] 00:00:00 [facility] Influenza High Dose 2018-04-11 Completed [facility] 00:00:00 [facility] Influenza High Dose 2018-04-11 Completed [facility] 00:00:00 [facility] Influenza High Dose 2018-04-11 Completed [facility] 00:00:00 [facility] Influenza High Dose 2018-04-11 Completed [facility] 00:00:00 [facility] Influenza High Dose 2018-04-11 Completed [facility] 00:00:00 [facility] Influenza High Dose 2018-04-11 Completed [facility] 00:00:00 [facility] Influenza High Dose 2018-04-11 Completed [facility] 00:00:00 [facility] Influenza High Dose 2018-04-11 Completed [facility] 00:00:00 [facility] Influenza High Dose 2018-04-11 Completed [facility] 00:00:00 [facility] Influenza High Dose 2018-04-11 Completed [facility] 00:00:00 [facility] Influenza High Dose 2018-04-11 Completed [facility] 00:00:00 [facility] Influenza High Dose 2018-04-11 Completed [facility] 00:00:00 [facility] Influenza High Dose 2018-04-11 Completed [facility] 00:00:00 [facility] Influenza High Dose 2018-04-11 Completed [facility] 00:00:00 [facility] Influenza High Dose 2018-04-11 Completed [facility] 00:00:00 [facility] Influenza High Dose 2018-04-11 Completed [facility] 00:00:00 [facility] Influenza High Dose 2018-04-11 Completed [facility] 00:00:00 [facility] Influenza High Dose 2018-04-11 Completed [facility] 00:00:00 [facility] Influenza High Dose 2018-04-11 Completed [facility] 00:00:00 [facility] Influenza High Dose 2018-04-11 Completed [facility] 00:00:00 [facility] Influenza High Dose 2018-04-11 Completed [facility] 00:00:00 [facility] Influenza High Dose 2018-04-11 Completed [facility] 00:00:00 [facility] Influenza High Dose 2018-04-11 Completed [facility] 00:00:00 [facility] Influenza High Dose 2018-04-11 Completed [facility] 00:00:00 [facility] Influenza High Dose 2018-04-11 Completed [facility] 00:00:00 [facility] Influenza High Dose 2018-04-11 Completed [facility] 00:00:00 [facility] Influenza High Dose 2018-04-11 Completed [facility] 00:00:00 [facility] Influenza High Dose 2018-04-11 Completed [facility] 00:00:00 [facility] Influenza High Dose 2018-04-11 Completed [facility] 00:00:00 [facility] Influenza High Dose 2018-04-11 Completed [facility] 00:00:00 [facility] Influenza High Dose 2018-04-11 Completed [facility] 00:00:00 [facility] Influenza High Dose 2018-04-11 Completed [facility] 00:00:00 [facility] Influenza High Dose 2018-04-11 Completed [facility] 00:00:00 [facility] Influenza High Dose 2018-04-11 Completed [facility] 00:00:00 [facility] Influenza High Dose 2018-04-11 Completed [facility] 00:00:00 [facility] Influenza High Dose 2018-04-11 Completed [facility] 00:00:00 [facility] Influenza High Dose 2018-04-11 Completed [facility] 00:00:00 [facility] Influenza High Dose 2018-04-11 Completed [facility] 00:00:00 [facility] Influenza High Dose 2018-04-11 Completed [facility] 00:00:00 [facility] Influenza High Dose 2018-04-11 Completed [facility] 00:00:00 [facility] Influenza High Dose 2018-04-11 Completed [facility] 00:00:00 [facility] Influenza High Dose 2018-04-11 Completed [facility] 00:00:00 [facility] Influenza High Dose 2018-04-11 Completed [facility] 00:00:00 [facility] Influenza High Dose 2018-04-11 Completed [facility] 00:00:00 [facility] Influenza High Dose 2018-04-11 Completed [facility] 00:00:00 [facility] Influenza High Dose 2018-04-11 Completed [facility] 00:00:00 [facility] Influenza High Dose 2018-04-11 Completed [facility] 00:00:00 [facility] Influenza High Dose 2018-04-11 Completed [facility] 00:00:00 [facility] Influenza High Dose 2018-04-11 Completed [facility] 00:00:00 [facility] Influenza High Dose 2018-04-11 Completed [facility] 00:00:00 [facility] Influenza High Dose 2018-04-11 Completed [facility] 00:00:00 [facility] Influenza High Dose 2018-04-11 Completed [facility] 00:00:00 [facility] Influenza High Dose 2018-04-11 Completed [facility] 00:00:00 [facility] Influenza High Dose 2018-04-11 Completed [facility] 00:00:00 [facility] Influenza High Dose 2018-04-11 Completed [facility] 00:00:00 [facility] Influenza High Dose 2018-04-11 Completed [facility] 00:00:00 [facility] Influenza High Dose 2018-04-11 Completed [facility] 00:00:00 [facility] Influenza Virus 2017-04-15 Completed [facility] Vaccine Quad IM 3+ 00:00:00 [facility] Influenza Virus 2017-04-15 Completed [facility] Vaccine Quad IM 3+ 00:00:00 [facility] Influenza Virus 2017-04-15 Completed [facility] Vaccine Quad IM 3+ 00:00:00 [facility] Influenza Virus 2017-04-15 Completed [facility] Vaccine Quad IM 3+ 00:00:00 [facility] Influenza Virus 2017-04-15 Completed [facility] Vaccine Quad IM 3+ 00:00:00 [facility] Influenza Virus 2017-04-15 Completed [facility] Vaccine Quad IM 3+ 00:00:00 [facility] Influenza Virus 2017-04-15 Completed [facility] Vaccine Quad IM 3+ 00:00:00 [facility] Influenza Virus 2017-04-15 Completed [facility] Vaccine Quad IM 3+ 00:00:00 [facility] Influenza Virus 2017-04-15 Completed [facility] Vaccine Quad IM 3+ 00:00:00 [facility] Influenza Virus 2017-04-15 Completed [facility] Vaccine Quad IM 3+ 00:00:00 [facility] Influenza Virus 2017-04-15 Completed [facility] Vaccine Quad IM 3+ 00:00:00 [facility] Influenza Virus 2017-04-15 Completed [facility] Vaccine Quad IM 3+ 00:00:00 [facility] Influenza Virus 2017-04-15 Completed [facility] Vaccine Quad IM 3+ 00:00:00 [facility] Influenza Virus 2017-04-15 Completed [facility] Vaccine Quad IM 3+ 00:00:00 [facility] Influenza Virus 2017-04-15 Completed [facility] Vaccine Quad IM 3+ 00:00:00 [facility] Influenza Virus 2017-04-15 Completed [facility] Vaccine Quad IM 3+ 00:00:00 [facility] Influenza Virus 2017-04-15 Completed [facility] Vaccine Quad IM 3+ 00:00:00 [facility] Influenza Virus 2017-04-15 Completed [facility] Vaccine Quad IM 3+ 00:00:00 [facility] Influenza Virus 2017-04-15 Completed [facility] Vaccine Quad IM 3+ 00:00:00 [facility] Influenza Virus 2017-04-15 Completed [facility] Vaccine Quad IM 3+ 00:00:00 [facility] Influenza Virus 2017-04-15 Completed [facility] Vaccine Quad IM 3+ 00:00:00 [facility] Influenza Virus 2017-04-15 Completed [facility] Vaccine Quad IM 3+ 00:00:00 [facility] Influenza Virus 2017-04-15 Completed [facility] Vaccine Quad IM 3+ 00:00:00 [facility] Influenza Virus 2017-04-15 Completed [facility] Vaccine Quad IM 3+ 00:00:00 [facility] Influenza Virus 2017-04-15 Completed [facility] Vaccine Quad IM 3+ 00:00:00 [facility] Influenza Virus 2017-04-15 Completed [facility] Vaccine Quad IM 3+ 00:00:00 [facility] Influenza Virus 2017-04-15 Completed [facility] Vaccine Quad IM 3+ 00:00:00 [facility] Influenza Virus 2017-04-15 Completed [facility] Vaccine Quad IM 3+ 00:00:00 [facility] Influenza Virus 2017-04-15 Completed [facility] Vaccine Quad IM 3+ 00:00:00 [facility] Influenza Virus 2017-04-15 Completed [facility] Vaccine Quad IM 3+ 00:00:00 [facility] Influenza Virus 2017-04-15 Completed [facility] Vaccine Quad IM 3+ 00:00:00 [facility] Influenza Virus 2017-04-15 Completed [facility] Vaccine Quad IM 3+ 00:00:00 [facility] Influenza Virus 2017-04-15 Completed [facility] Vaccine Quad IM 3+ 00:00:00 [facility] Influenza Virus 2017-04-15 Completed [facility] Vaccine Quad IM 3+ 00:00:00 [facility] Influenza Virus 2017-04-15 Completed [facility] Vaccine Quad IM 3+ 00:00:00 [facility] Influenza Virus 2017-04-15 Completed [facility] Vaccine Quad IM 3+ 00:00:00 [facility] Influenza Virus 2017-04-15 Completed [facility] Vaccine Quad IM 3+ 00:00:00 [facility] Influenza Virus 2017-04-15 Completed [facility] Vaccine Quad IM 3+ 00:00:00 [facility] Influenza Virus 2017-04-15 Completed [facility] Vaccine Quad IM 3+ 00:00:00 [facility] Influenza Virus 2017-04-15 Completed [facility] Vaccine Quad IM 3+ 00:00:00 [facility] Influenza Virus 2017-04-15 Completed [facility] Vaccine Quad IM 3+ 00:00:00 [facility] Influenza Virus 2017-04-15 Completed [facility] Vaccine Quad IM 3+ 00:00:00 [facility] Influenza Virus 2017-04-15 Completed [facility] Vaccine Quad IM 3+ 00:00:00 [facility] Influenza Virus 2017-04-15 Completed [facility] Vaccine Quad IM 3+ 00:00:00 [facility] Influenza Virus 2017-04-15 Completed [facility] Vaccine Quad IM 3+ 00:00:00 [facility] Influenza Virus 2017-04-15 Completed [facility] Vaccine Quad IM 3+ 00:00:00 [facility] Influenza Virus 2017-04-15 Completed [facility] Vaccine Quad IM 3+ 00:00:00 [facility] Influenza Virus 2017-04-15 Completed [facility] Vaccine Quad IM 3+ 00:00:00 [facility] Influenza Virus 2017-04-15 Completed [facility] Vaccine Quad IM 3+ 00:00:00 [facility] Influenza Virus 2017-04-15 Completed [facility] Vaccine Quad IM 3+ 00:00:00 [facility] Influenza Virus 2017-04-15 Completed [facility] Vaccine Quad IM 3+ 00:00:00 [facility] Influenza Virus 2017-04-15 Completed [facility] Vaccine Quad IM 3+ 00:00:00 [facility] Influenza Virus 2017-04-15 Completed [facility] Vaccine Quad IM 3+ 00:00:00 [facility] Influenza Virus 2017-04-15 Completed [facility] Vaccine Quad IM 3+ 00:00:00 [facility] Influenza Virus 2017-04-15 Completed [facility] Vaccine Quad IM 3+ 00:00:00 [facility] Influenza Virus 2017-04-15 Completed [facility] Vaccine Quad IM 3+ 00:00:00 [facility] Influenza Virus 2017-04-15 Completed [facility] Vaccine Quad IM 3+ 00:00:00 [facility] Influenza Virus 2017-04-15 Completed [facility] Vaccine Quad IM 3+ 00:00:00 [facility] Influenza Virus 2017-04-15 Completed [facility] Vaccine Quad IM 3+ 00:00:00 [facility] Influenza Virus 2017-04-15 Completed [facility] Vaccine Quad IM 3+ 00:00:00 [facility] Influenza Virus 2017-04-15 Completed [facility] Vaccine Quad IM 3+ 00:00:00 [facility] Influenza Virus 2017-04-15 Completed [facility] Vaccine Quad IM 3+ 00:00:00 [facility] Influenza Virus 2017-04-15 Completed [facility] Vaccine Quad IM 3+ 00:00:00 [facility] Influenza Virus 2017-04-15 Completed [facility] Vaccine Quad IM 3+ 00:00:00 [facility] Influenza Virus 2017-04-15 Completed [facility] Vaccine Quad IM 3+ 00:00:00 [facility] Influenza Virus 2017-04-15 Completed [facility] Vaccine Quad IM 3+ 00:00:00 [facility] Influenza Virus 2017-04-15 Completed [facility] Vaccine Quad IM 3+ 00:00:00 [facility] Influenza Virus 2017-04-15 Completed [facility] Vaccine Quad IM 3+ 00:00:00 [facility] Influenza Virus 2017-04-15 Completed [facility] Vaccine Quad IM 3+ 00:00:00 [facility] Influenza Virus 2017-04-15 Completed [facility] Vaccine Quad IM 3+ 00:00:00 [facility] Influenza Virus 2017-04-15 Completed [facility] Vaccine Quad IM 3+ 00:00:00 [facility] Influenza Virus 2017-04-15 Completed [facility] Vaccine Quad IM 3+ 00:00:00 [facility] Influenza Virus 2017-04-15 Completed [facility] Vaccine Quad IM 3+ 00:00:00 [facility] Influenza Virus 2017-04-15 Completed [facility] Vaccine Quad IM 3+ 00:00:00 [facility] Influenza Virus 2017-04-15 Completed [facility] Vaccine Quad IM 3+ 00:00:00 [facility] Influenza Virus 2017-04-15 Completed [facility] Vaccine Quad IM 3+ 00:00:00 [facility] Influenza Virus 2017-04-15 Completed [facility] Vaccine Quad IM 3+ 00:00:00 [facility] Influenza Virus 2017-04-15 Completed [facility] Vaccine Quad IM 3+ 00:00:00 [facility] Influenza Virus 2017-04-15 Completed [facility] Vaccine Quad IM 3+ 00:00:00 [facility] Influenza Virus 2017-04-15 Completed [facility] Vaccine Quad IM 3+ 00:00:00 [facility] Influenza Virus 2017-04-15 Completed [facility] Vaccine Quad IM 3+ 00:00:00 [facility] Influenza Virus 2017-04-15 Completed [facility] Vaccine Quad IM 3+ 00:00:00 [facility] Influenza Virus 2017-04-15 Completed [facility] Vaccine Quad IM 3+ 00:00:00 [facility] Influenza Virus 2017-04-15 Completed [facility] Vaccine Quad IM 3+ 00:00:00 [facility] Influenza Virus 2017-04-15 Completed [facility] Vaccine Quad IM 3+ 00:00:00 [facility] Influenza Virus 2017-04-15 Completed [facility] Vaccine Quad IM 3+ 00:00:00 [facility] Influenza Virus 2017-04-15 Completed [facility] Vaccine Quad IM 3+ 00:00:00 [facility] Influenza Virus 2017-04-15 Completed [facility] Vaccine Quad IM 3+ 00:00:00 [facility] Influenza Virus 2017-04-15 Completed [facility] Vaccine Quad IM 3+ 00:00:00 [facility] Influenza Virus 2017-04-15 Completed [facility] Vaccine Quad IM 3+ 00:00:00 [facility] Influenza Virus 2017-04-15 Completed [facility] Vaccine Quad IM 3+ 00:00:00 [facility] Influenza Virus 2017-04-15 Completed [facility] Vaccine Quad IM 3+ 00:00:00 [facility] Influenza Virus 2017-04-15 Completed [facility] of Vaccine Quad IM 3+ 00:00:00 [facility] Influenza Virus 2017-04-15 Completed [facility] Vaccine Quad IM 3+ 00:00:00 [facility] Influenza Virus 2017-04-15 Completed [facility] Vaccine Quad IM 3+ 00:00:00 [place] [facility] Pneumococcal 13 2015-04-14 Completed [facility] Conjugate, PCV13 00:00:00 [place] [facility] (Prevnar 13) [facility] Pneumococcal 13 2015-04-14 Completed [facility] Conjugate, PCV13 00:00:00 [place] [facility] (Prevnar 13) [facility] Pneumococcal 13 2015-04-14 Completed [facility] Conjugate, PCV13 00:00:00 [place] [facility] (Prevnar 13) [facility] Pneumococcal 13 2015-04-14 Completed [facility] Conjugate, PCV13 00:00:00 [place] [facility] (Prevnar 13) [facility] Pneumococcal 13 2015-04-14 Completed [facility] Conjugate, PCV13 00:00:00 [place] [facility] (Prevnar 13) [facility] Pneumococcal 13 2015-04-14 Completed [facility] Conjugate, PCV13 00:00:00 [facility] (Prevnar 13) Branch Pneumococcal 13 2015-04-14 Completed [facility] Conjugate, PCV13 00:00:00 [facility] (Prevnar 13) Branch Pneumococcal 13 2015-04-14 Completed [facility] Conjugate, PCV13 00:00:00 [facility] (Prevnar 13) Branch Pneumococcal 13 2015-04-14 Completed [facility] Conjugate, PCV13 00:00:00 [place] [facility] (Prevnar 13) Branch Pneumococcal 13 2015-04-14 Completed [facility] Conjugate, PCV13 00:00:00 [place] [facility] (Prevnar 13) Branch Pneumococcal 13 2015-04-14 Completed [facility] Conjugate, PCV13 00:00:00 [facility] (Prevnar 13) Branch Pneumococcal 13 2015-04-14 Completed [facility] Conjugate, PCV13 00:00:00 [facility] (Prevnar 13) Branch Pneumococcal 13 2015-04-14 Completed [facility] Conjugate, PCV13 00:00:00 [facility] (Prevnar 13) Branch Pneumococcal 13 2015-04-14 Completed [facility] Conjugate, PCV13 00:00:00 [facility] (Prevnar 13) Branch Pneumococcal 13 2015-04-14 Completed [facility] Conjugate, PCV13 00:00:00 [place] [facility] (Prevnar 13) Branch Pneumococcal 13 2015-04-14 Completed [facility] Conjugate, PCV13 00:00:00 [place] [facility] (Prevnar 13) Branch Pneumococcal 13 2015-04-14 Completed [facility] Conjugate, PCV13 00:00:00 [place] [facility] (Prevnar 13) Branch Pneumococcal 13 2015-04-14 Completed [facility] Conjugate, PCV13 00:00:00 [place] [facility] (Prevnar 13) Branch Pneumococcal 13 2015-04-14 Completed [facility] Conjugate, PCV13 00:00:00 [facility] (Prevnar 13) Branch Pneumococcal 13 2015-04-14 Completed [facility] Conjugate, PCV13 00:00:00 [place] [facility] (Prevnar 13) Branch Pneumococcal 13 2015-04-14 Completed [facility] Conjugate, PCV13 00:00:00 [place] [facility] (Prevnar 13) Branch Pneumococcal 13 2015-04-14 Completed [facility] Conjugate, PCV13 00:00:00 [facility] (Prevnar 13) Branch Pneumococcal 13 2015-04-14 Completed [facility] Conjugate, PCV13 00:00:00 [place] [facility] (Prevnar 13) Branch Pneumococcal 13 2015-04-14 Completed [facility] Conjugate, PCV13 00:00:00 [facility] (Prevnar 13) Branch Pneumococcal 13 2015-04-14 Completed [facility] Conjugate, PCV13 00:00:00 [facility] (Prevnar 13) Branch Pneumococcal 13 2015-04-14 Completed [facility] Conjugate, PCV13 00:00:00 [facility] (Prevnar 13) Branch Pneumococcal 13 2015-04-14 Completed [facility] Conjugate, PCV13 00:00:00 [facility] (Prevnar 13) Branch Pneumococcal 13 2015-04-14 Completed [facility] Conjugate, PCV13 00:00:00 [facility] (Prevnar 13) Branch Pneumococcal 13 2015-04-14 Completed [facility] Conjugate, PCV13 00:00:00 [facility] (Prevnar 13) Branch Pneumococcal 13 2015-04-14 Completed [facility] Conjugate, PCV13 00:00:00 [facility] (Prevnar 13) Branch Pneumococcal 13 2015-04-14 Completed [facility] Conjugate, PCV13 00:00:00 [facility] (Prevnar 13) Branch Pneumococcal 13 2015-04-14 Completed [facility] Conjugate, PCV13 00:00:00 [place] [facility] (Prevnar 13) Branch Pneumococcal 13 2015-04-14 Completed [facility] Conjugate, PCV13 00:00:00 [facility] (Prevnar 13) Branch Pneumococcal 13 2015-04-14 Completed [facility] Conjugate, PCV13 00:00:00 [place] [facility] (Prevnar 13) Branch Pneumococcal 13 2015-04-14 Completed [facility] Conjugate, PCV13 00:00:00 [place] [facility] (Prevnar 13) Branch Pneumococcal 13 2015-04-14 Completed [facility] Conjugate, PCV13 00:00:00 [place] [facility] (Prevnar 13) Branch Pneumococcal 13 2015-04-14 Completed [facility] Conjugate, PCV13 00:00:00 [place] [facility] (Prevnar 13) Branch Pneumococcal 13 2015-04-14 Completed [facility] Conjugate, PCV13 00:00:00 [place] [facility] (Prevnar 13) Branch Pneumococcal 13 2015-04-14 Completed [facility] Conjugate, PCV13 00:00:00 [place] [facility] (Prevnar 13) Branch Pneumococcal 13 2015-04-14 Completed [facility] Conjugate, PCV13 00:00:00 [place] [facility] (Prevnar 13) Branch Pneumococcal 13 2015-04-14 Completed [facility] Conjugate, PCV13 00:00:00 [place] [facility] (Prevnar 13) Branch Pneumococcal 13 2015-04-14 Completed [facility] Conjugate, PCV13 00:00:00 [place] [facility] (Prevnar 13) Branch Pneumococcal 13 2015-04-14 Completed [facility] Conjugate, PCV13 00:00:00 [place] [facility] (Prevnar 13) Branch Pneumococcal 13 2015-04-14 Completed [facility] Conjugate, PCV13 00:00:00 [place] [facility] (Prevnar 13) Branch Pneumococcal 13 2015-04-14 Completed [facility] Conjugate, PCV13 00:00:00 [place] [facility] (Prevnar 13) Branch Pneumococcal 13 2015-04-14 Completed [facility] Conjugate, PCV13 00:00:00 [place] [facility] (Prevnar 13) Branch Pneumococcal 13 2015-04-14 Completed [facility] Conjugate, PCV13 00:00:00 [place] [facility] (Prevnar 13) Branch Pneumococcal 13 2015-04-14 Completed [facility] Conjugate, PCV13 00:00:00 [place] [facility] (Prevnar 13) Branch Pneumococcal 13 2015-04-14 Completed [facility] Conjugate, PCV13 00:00:00 [place] [facility] (Prevnar 13) Branch Pneumococcal 13 2015-04-14 Completed [facility] Conjugate, PCV13 00:00:00 [place] [facility] (Prevnar 13) Branch Pneumococcal 13 2015-04-14 Completed [facility] Conjugate, PCV13 00:00:00 [place] [facility] (Prevnar 13) Branch Pneumococcal 13 2015-04-14 Completed [facility] Conjugate, PCV13 00:00:00 [place] [facility] (Prevnar 13) Branch Pneumococcal 13 2015-04-14 Completed [facility] Conjugate, PCV13 00:00:00 [place] [facility] (Prevnar 13) Branch Pneumococcal 13 2015-04-14 Completed [facility] Conjugate, PCV13 00:00:00 [place] [facility] (Prevnar 13) Branch Pneumococcal 13 2015-04-14 Completed [facility] Conjugate, PCV13 00:00:00 [facility] (Prevnar 13) Branch Pneumococcal 13 2015-04-14 Completed [facility] Conjugate, PCV13 00:00:00 [place] [facility] (Prevnar 13) Branch Pneumococcal 13 2015-04-14 Completed [facility] Conjugate, PCV13 00:00:00 [place] [facility] (Prevnar 13) Branch Pneumococcal 13 2015-04-14 Completed [facility] Conjugate, PCV13 00:00:00 [facility] (Prevnar 13) Branch Pneumococcal 13 2015-04-14 Completed [facility] Conjugate, PCV13 00:00:00 [place] [facility] (Prevnar 13) Branch Pneumococcal 13 2015-04-14 Completed [facility] Conjugate, PCV13 00:00:00 [place] [facility] (Prevnar 13) Branch Pneumococcal 13 2015-04-14 Completed [facility] Conjugate, PCV13 00:00:00 [facility] (Prevnar 13) Branch Pneumococcal 13 2015-04-14 Completed [facility] Conjugate, PCV13 00:00:00 [place] [facility] (Prevnar 13) Branch Pneumococcal 13 2015-04-14 Completed [facility] Conjugate, PCV13 00:00:00 [place] [facility] (Prevnar 13) Branch Pneumococcal 13 2015-04-14 Completed [facility] Conjugate, PCV13 00:00:00 [place] [facility] (Prevnar 13) Branch Pneumococcal 13 2015-04-14 Completed [facility] Conjugate, PCV13 00:00:00 [place] [facility] (Prevnar 13) Branch Pneumococcal 13 2015-04-14 Completed [facility] Conjugate, PCV13 00:00:00 [place] [facility] (Prevnar 13) Branch Pneumococcal 13 2015-04-14 Completed [facility] Conjugate, PCV13 00:00:00 [place] [facility] (Prevnar 13) Branch Pneumococcal 13 2015-04-14 Completed [facility] Conjugate, PCV13 00:00:00 [place] [facility] (Prevnar 13) Branch Pneumococcal 13 2015-04-14 Completed [facility] Conjugate, PCV13 00:00:00 [place] [facility] (Prevnar 13) Branch Pneumococcal 13 2015-04-14 Completed [facility] Conjugate, PCV13 00:00:00 [place] [facility] (Prevnar 13) Branch Pneumococcal 13 2015-04-14 Completed [facility] Conjugate, PCV13 00:00:00 [place] [facility] (Prevnar 13) Branch Pneumococcal 13 2015-04-14 Completed [facility] Conjugate, PCV13 00:00:00 [place] [facility] (Prevnar 13) Branch Pneumococcal 13 2015-04-14 Completed [facility] Conjugate, PCV13 00:00:00 [place] [facility] (Prevnar 13) Branch Pneumococcal 13 2015-04-14 Completed [facility] Conjugate, PCV13 00:00:00 [place] [facility] (Prevnar 13) Branch Pneumococcal 13 2015-04-14 Completed [facility] Conjugate, PCV13 00:00:00 [place] [facility] (Prevnar 13) Branch Pneumococcal 13 2015-04-14 Completed [facility] Conjugate, PCV13 00:00:00 [place] [facility] (Prevnar 13) Branch Pneumococcal 13 2015-04-14 Completed [facility] Conjugate, PCV13 00:00:00 [place] [facility] (Prevnar 13) Branch Pneumococcal 13 2015-04-14 Completed [facility] Conjugate, PCV13 00:00:00 [place] [facility] (Prevnar 13) Branch Pneumococcal 13 2015-04-14 Completed [facility] Conjugate, PCV13 00:00:00 [place] [facility] (Prevnar 13) Branch Pneumococcal 13 2015-04-14 Completed [facility] Conjugate, PCV13 00:00:00 [place] [facility] (Prevnar 13) Branch Pneumococcal 13 2015-04-14 Completed [facility] Conjugate, PCV13 00:00:00 [place] [facility] (Prevnar 13) Branch Pneumococcal 13 2015-04-14 Completed [facility] Conjugate, PCV13 00:00:00 [place] [facility] (Prevnar 13) Branch Pneumococcal 13 2015-04-14 Completed [facility] Conjugate, PCV13 00:00:00 [place] [facility] (Prevnar 13) Branch Pneumococcal 13 2015-04-14 Completed [facility] Conjugate, PCV13 00:00:00 [place] [facility] (Prevnar 13) Branch Pneumococcal 13 2015-04-14 Completed [facility] Conjugate, PCV13 00:00:00 [place] [facility] (Prevnar 13) Branch Pneumococcal 13 2015-04-14 Completed [facility] Conjugate, PCV13 00:00:00 [place] [facility] (Prevnar 13) Branch Pneumococcal 13 2015-04-14 Completed [facility] Conjugate, PCV13 00:00:00 [place] [facility] (Prevnar 13) Branch Pneumococcal 13 2015-04-14 Completed [facility] Conjugate, PCV13 00:00:00 [place] [facility] (Prevnar 13) Branch Pneumococcal 13 2015-04-14 Completed [facility] Conjugate, PCV13 00:00:00 [place] [facility] (Prevnar 13) Branch Pneumococcal 13 2015-04-14 Completed [facility] Conjugate, PCV13 00:00:00 [place] [facility] (Prevnar 13) Branch Pneumococcal 13 2015-04-14 Completed [facility] Conjugate, PCV13 00:00:00 [place] [facility] (Prevnar 13) Branch Pneumococcal 13 2015-04-14 Completed [facility] Conjugate, PCV13 00:00:00 [place] [facility] (Prevnar 13) Branch Pneumococcal 13 2015-04-14 Completed [facility] Conjugate, PCV13 00:00:00 [place] [facility] (Prevnar 13) Branch Pneumococcal 13 2015-04-14 Completed [facility] Conjugate, PCV13 00:00:00 [place] [facility] (Prevnar 13) Branch Pneumococcal 13 2015-04-14 Completed [facility] Conjugate, PCV13 00:00:00 [place] [facility] (Prevnar 13) Branch Pneumococcal 2014-08-01 Completed [facility] f Polysaccharide, 00:00:00 [facility] PPSV23 (PNEUMOVAX) Branch Pneumococcal 2014-08-01 Completed [facility] f Polysaccharide, 00:00:00 [facility] PPSV23 (PNEUMOVAX) Branch Pneumococcal 2014-08-01 Completed [facility] f Polysaccharide, 00:00:00 [place] [facility] PPSV23 (PNEUMOVAX) Branch Pneumococcal 2014-08-01 Completed [facility] f Polysaccharide, 00:00:00 [place] [facility] PPSV23 (PNEUMOVAX) Branch Pneumococcal 2014-08-01 Completed [facility] f Polysaccharide, 00:00:00 [place] [facility] PPSV23 (PNEUMOVAX) Branch Pneumococcal 2014-08-01 Completed [facility] f Polysaccharide, 00:00:00 [place] [facility] PPSV23 (PNEUMOVAX) Branch Pneumococcal 2014-08-01 Completed [facility] f Polysaccharide, 00:00:00 [place] [facility] PPSV23 (PNEUMOVAX) Branch Pneumococcal 2014-08-01 Completed [facility] f Polysaccharide, 00:00:00 [place] [facility] PPSV23 (PNEUMOVAX) Branch Pneumococcal 2014-08-01 Completed [facility] f Polysaccharide, 00:00:00 [place] [facility] PPSV23 (PNEUMOVAX) Branch Pneumococcal 2014-08-01 Completed [facility] f Polysaccharide, 00:00:00 [place] [facility] PPSV23 (PNEUMOVAX) Branch Pneumococcal 2014-08-01 Completed [facility] f Polysaccharide, 00:00:00 [place] [facility] PPSV23 (PNEUMOVAX) Branch Pneumococcal 2014-08-01 Completed [facility] f Polysaccharide, 00:00:00 [place] [facility] PPSV23 (PNEUMOVAX) Branch Pneumococcal 2014-08-01 Completed [facility] f Polysaccharide, 00:00:00 [place] [facility] PPSV23 (PNEUMOVAX) Branch Pneumococcal 2014-08-01 Completed [facility] f Polysaccharide, 00:00:00 [place] [facility] PPSV23 (PNEUMOVAX) Branch Pneumococcal 2014-08-01 Completed [facility] f Polysaccharide, 00:00:00 [place] [facility] PPSV23 (PNEUMOVAX) Branch Pneumococcal 2014-08-01 Completed [facility] f Polysaccharide, 00:00:00 [place] [facility] PPSV23 (PNEUMOVAX) Branch Pneumococcal 2014-08-01 Completed [facility] f Polysaccharide, 00:00:00 [place] [facility] PPSV23 (PNEUMOVAX) Branch Pneumococcal 2014-08-01 Completed [facility] f Polysaccharide, 00:00:00 [place] [facility] PPSV23 (PNEUMOVAX) Branch Pneumococcal 2014-08-01 Completed [facility] f Polysaccharide, 00:00:00 [place] [facility] PPSV23 (PNEUMOVAX) Branch Pneumococcal 2014-08-01 Completed [facility] f Polysaccharide, 00:00:00 [place] [facility] PPSV23 (PNEUMOVAX) Branch Pneumococcal 2014-08-01 Completed [facility] f Polysaccharide, 00:00:00 [place] [facility] PPSV23 (PNEUMOVAX) Branch Pneumococcal 2014-08-01 Completed [facility] f Polysaccharide, 00:00:00 [place] [facility] PPSV23 (PNEUMOVAX) Branch Pneumococcal 2014-08-01 Completed [facility] f Polysaccharide, 00:00:00 [place] [facility] PPSV23 (PNEUMOVAX) Branch Pneumococcal 2014-08-01 Completed [facility] f Polysaccharide, 00:00:00 [place] [facility] PPSV23 (PNEUMOVAX) Branch Pneumococcal 2014-08-01 Completed [facility] f Polysaccharide, 00:00:00 [place] [facility] PPSV23 (PNEUMOVAX) Branch Pneumococcal 2014-08-01 Completed [facility] f Polysaccharide, 00:00:00 [place] [facility] PPSV23 (PNEUMOVAX) Branch Pneumococcal 2014-08-01 Completed [facility] f Polysaccharide, 00:00:00 [place] [facility] PPSV23 (PNEUMOVAX) Branch Pneumococcal 2014-08-01 Completed [facility] f Polysaccharide, 00:00:00 [place] [facility] PPSV23 (PNEUMOVAX) Branch Pneumococcal 2014-08-01 Completed [facility] f Polysaccharide, 00:00:00 [place] [facility] PPSV23 (PNEUMOVAX) Branch Pneumococcal 2014-08-01 Completed [facility] f Polysaccharide, 00:00:00 [place] [facility] PPSV23 (PNEUMOVAX) Branch Pneumococcal 2014-08-01 Completed [facility] f Polysaccharide, 00:00:00 [place] [facility] PPSV23 (PNEUMOVAX) Branch Pneumococcal 2014-08-01 Completed [facility] f Polysaccharide, 00:00:00 [place] [facility] PPSV23 (PNEUMOVAX) Branch Pneumococcal 2014-08-01 Completed [facility] f Polysaccharide, 00:00:00 [place] [facility] PPSV23 (PNEUMOVAX) Branch Pneumococcal 2014-08-01 Completed [facility] f Polysaccharide, 00:00:00 [place] [facility] PPSV23 (PNEUMOVAX) Branch Pneumococcal 2014-08-01 Completed [facility] f Polysaccharide, 00:00:00 [place] [facility] PPSV23 (PNEUMOVAX) Branch Pneumococcal 2014-08-01 Completed [facility] f Polysaccharide, 00:00:00 [place] [facility] PPSV23 (PNEUMOVAX) Branch Pneumococcal 2014-08-01 Completed [facility] f Polysaccharide, 00:00:00 [place] [facility] PPSV23 (PNEUMOVAX) Branch Pneumococcal 2014-08-01 Completed [facility] f Polysaccharide, 00:00:00 [place] [facility] PPSV23 (PNEUMOVAX) Branch Pneumococcal 2014-08-01 Completed [facility] f Polysaccharide, 00:00:00 [place] [facility] PPSV23 (PNEUMOVAX) Branch Pneumococcal 2014-08-01 Completed [facility] f Polysaccharide, 00:00:00 [place] [facility] PPSV23 (PNEUMOVAX) Branch Pneumococcal 2014-08-01 Completed [facility] f Polysaccharide, 00:00:00 [place] [facility] PPSV23 (PNEUMOVAX) Branch Pneumococcal 2014-08-01 Completed [facility] f Polysaccharide, 00:00:00 [place] [facility] PPSV23 (PNEUMOVAX) Branch Pneumococcal 2014-08-01 Completed [facility] f Polysaccharide, 00:00:00 [place] [facility] PPSV23 (PNEUMOVAX) Branch Pneumococcal 2014-08-01 Completed [facility] f Polysaccharide, 00:00:00 [place] [facility] PPSV23 (PNEUMOVAX) Branch Pneumococcal 2014-08-01 Completed [facility] f Polysaccharide, 00:00:00 [place] [facility] PPSV23 (PNEUMOVAX) Branch Pneumococcal 2014-08-01 Completed [facility] f Polysaccharide, 00:00:00 [place] [facility] PPSV23 (PNEUMOVAX) Branch Pneumococcal 2014-08-01 Completed [facility] f Polysaccharide, 00:00:00 [place] [facility] PPSV23 (PNEUMOVAX) Branch Pneumococcal 2014-08-01 Completed [facility] f Polysaccharide, 00:00:00 [place] [facility] PPSV23 (PNEUMOVAX) Branch Pneumococcal 2014-08-01 Completed [facility] f Polysaccharide, 00:00:00 [place] [facility] PPSV23 (PNEUMOVAX) Branch Pneumococcal 2014-08-01 Completed [facility] f Polysaccharide, 00:00:00 [place] [facility] PPSV23 (PNEUMOVAX) Branch Pneumococcal 2014-08-01 Completed [facility] f Polysaccharide, 00:00:00 [place] [facility] PPSV23 (PNEUMOVAX) Branch Pneumococcal 2014-08-01 Completed [facility] f Polysaccharide, 00:00:00 [place] [facility] PPSV23 (PNEUMOVAX) Branch Pneumococcal 2014-08-01 Completed [facility] f Polysaccharide, 00:00:00 [place] [facility] PPSV23 (PNEUMOVAX) Branch Pneumococcal 2014-08-01 Completed [facility] f Polysaccharide, 00:00:00 [place] [facility] PPSV23 (PNEUMOVAX) Branch Pneumococcal 2014-08-01 Completed [facility] f Polysaccharide, 00:00:00 [place] [facility] PPSV23 (PNEUMOVAX) Branch Pneumococcal 2014-08-01 Completed [facility] f Polysaccharide, 00:00:00 [place] [facility] PPSV23 (PNEUMOVAX) Branch Pneumococcal 2014-08-01 Completed [facility] f Polysaccharide, 00:00:00 [place] [facility] PPSV23 (PNEUMOVAX) Branch Pneumococcal 2014-08-01 Completed [facility] f Polysaccharide, 00:00:00 [place] [facility] PPSV23 (PNEUMOVAX) Branch Pneumococcal 2014-08-01 Completed [facility] f Polysaccharide, 00:00:00 [place] [facility] PPSV23 (PNEUMOVAX) Branch Pneumococcal 2014-08-01 Completed [facility] f Polysaccharide, 00:00:00 [place] [facility] PPSV23 (PNEUMOVAX) Branch Pneumococcal 2014-08-01 Completed [facility] f Polysaccharide, 00:00:00 [place] [facility] PPSV23 (PNEUMOVAX) Branch Pneumococcal 2014-08-01 Completed [facility] f Polysaccharide, 00:00:00 [place] [facility] PPSV23 (PNEUMOVAX) Branch Pneumococcal 2014-08-01 Completed [facility] f Polysaccharide, 00:00:00 [place] [facility] PPSV23 (PNEUMOVAX) Branch Pneumococcal 2014-08-01 Completed [facility] f Polysaccharide, 00:00:00 [place] [facility] PPSV23 (PNEUMOVAX) Branch Pneumococcal 2014-08-01 Completed [facility] f Polysaccharide, 00:00:00 [place] [facility] PPSV23 (PNEUMOVAX) Branch Pneumococcal 2014-08-01 Completed [facility] f Polysaccharide, 00:00:00 [place] [facility] PPSV23 (PNEUMOVAX) Branch Pneumococcal 2014-08-01 Completed [facility] o f Polysaccharide, 00:00:00 [place] [facility] PPSV23 (PNEUMOVAX) Branch Pneumococcal 2014-08-01 Completed [facility] f Polysaccharide, 00:00:00 [place] [facility] PPSV23 (PNEUMOVAX) Branch Pneumococcal 2014-08-01 Completed [facility] f Polysaccharide, 00:00:00 [place] [facility] PPSV23 (PNEUMOVAX) Branch Pneumococcal 2014-08-01 Completed [facility] f Polysaccharide, 00:00:00 [place] [facility] PPSV23 (PNEUMOVAX) Branch Pneumococcal 2014-08-01 Completed [facility] f Polysaccharide, 00:00:00 [place] [facility] PPSV23 (PNEUMOVAX) Branch Pneumococcal 2014-08-01 Completed [facility] f Polysaccharide, 00:00:00 [place] [facility] PPSV23 (PNEUMOVAX) Branch Pneumococcal 2014-08-01 Completed [facility] f Polysaccharide, 00:00:00 [place] [facility] PPSV23 (PNEUMOVAX) Branch Pneumococcal 2014-08-01 Completed [facility] f Polysaccharide, 00:00:00 [place] [facility] PPSV23 (PNEUMOVAX) Branch Pneumococcal 2014-08-01 Completed [facility] f Polysaccharide, 00:00:00 [place] [facility] PPSV23 (PNEUMOVAX) Branch Pneumococcal 2014-08-01 Completed [facility] f Polysaccharide, 00:00:00 [place] [facility] PPSV23 (PNEUMOVAX) Branch Pneumococcal 2014-08-01 Completed [facility] f Polysaccharide, 00:00:00 [place] [facility] PPSV23 (PNEUMOVAX) Branch Pneumococcal 2014-08-01 Completed [facility] f Polysaccharide, 00:00:00 [place] [facility] PPSV23 (PNEUMOVAX) Branch Pneumococcal 2014-08-01 Completed [facility] f Polysaccharide, 00:00:00 [place] [facility] PPSV23 (PNEUMOVAX) Branch Pneumococcal 2014-08-01 Completed [facility] f Polysaccharide, 00:00:00 [place] [facility] PPSV23 (PNEUMOVAX) Branch Pneumococcal 2014-08-01 Completed [facility] f Polysaccharide, 00:00:00 [place] [facility] PPSV23 (PNEUMOVAX) Branch Pneumococcal 2014-08-01 Completed [facility] f Polysaccharide, 00:00:00 [place] [facility] PPSV23 (PNEUMOVAX) Branch Pneumococcal 2014-08-01 Completed [facility] f Polysaccharide, 00:00:00 [place] [facility] PPSV23 (PNEUMOVAX) Branch Pneumococcal 2014-08-01 Completed [facility] f Polysaccharide, 00:00:00 [place] [facility] PPSV23 (PNEUMOVAX) Branch Pneumococcal 2014-08-01 Completed [facility] f Polysaccharide, 00:00:00 [place] [facility] PPSV23 (PNEUMOVAX) Branch Pneumococcal 2014-08-01 Completed [facility] f Polysaccharide, 00:00:00 [place] [facility] PPSV23 (PNEUMOVAX) Branch Pneumococcal 2014-08-01 Completed [facility] f Polysaccharide, 00:00:00 [place] [facility] PPSV23 (PNEUMOVAX) Branch Pneumococcal 2014-08-01 Completed [facility] f Polysaccharide, 00:00:00 [place] [facility] PPSV23 (PNEUMOVAX) Branch Pneumococcal 2014-08-01 Completed [facility] f Polysaccharide, 00:00:00 [place] [facility] PPSV23 (PNEUMOVAX) Branch Pneumococcal 2014-08-01 Completed [facility] f Polysaccharide, 00:00:00 [place] [facility] PPSV23 (PNEUMOVAX) Branch Pneumococcal 2014-08-01 Completed [facility] f Polysaccharide, 00:00:00 [place] [facility] PPSV23 (PNEUMOVAX) Branch Pneumococcal 2014-08-01 Completed [facility] o f Polysaccharide, 00:00:00 [place] [facility] PPSV23 (PNEUMOVAX) Branch Pneumococcal 2014-08-01 Completed [facility] o f Polysaccharide, 00:00:00 [place] [facility] PPSV23 (PNEUMOVAX) Branch Pneumococcal 2014-08-01 Completed [facility] o f Polysaccharide, 00:00:00 [place] [facility] PPSV23 (PNEUMOVAX) Branch Pneumococcal 2014-08-01 Completed [facility] o f Polysaccharide, 00:00:00 [place] [facility] PPSV23 (PNEUMOVAX) Branch Influenza Virus 2014-04-24 Completed [facility] Vaccine Quad IM 3+ 00:00:00 [facility] Influenza Virus 2014-04-24 Completed [facility] of Vaccine Quad IM 3+ 00:00:00 [facility] Influenza Virus 2014-04-24 Completed [facility] of Vaccine Quad IM 3+ 00:00:00 [facility] Influenza Virus 2014-04-24 Completed [facility] of Vaccine Quad IM 3+ 00:00:00 [facility] Influenza Virus 2014-04-24 Completed [facility] of Vaccine Quad IM 3+ 00:00:00 [facility] Influenza Virus 2014-04-24 Completed [facility] of Vaccine Quad IM 3+ 00:00:00 [facility] Influenza Virus 2014-04-24 Completed [facility] of Vaccine Quad IM 3+ 00:00:00 [facility] Influenza Virus 2014-04-24 Completed [facility] of Vaccine Quad IM 3+ 00:00:00 [facility] Influenza Virus 2014-04-24 Completed [facility] of Vaccine Quad IM 3+ 00:00:00 [facility] Influenza Virus 2014-04-24 Completed [facility] of Vaccine Quad IM 3+ 00:00:00 [facility] Influenza Virus 2014-04-24 Completed [facility] of Vaccine Quad IM 3+ 00:00:00 [facility] Influenza Virus 2014-04-24 Completed [facility] of Vaccine Quad IM 3+ 00:00:00 [facility] Influenza Virus 2014-04-24 Completed [facility] of Vaccine Quad IM 3+ 00:00:00 [facility] Influenza Virus 2014-04-24 Completed [facility] of Vaccine Quad IM 3+ 00:00:00 [facility] Influenza Virus 2014-04-24 Completed [facility] of Vaccine Quad IM 3+ 00:00:00 [facility] Influenza Virus 2014-04-24 Completed [facility] of Vaccine Quad IM 3+ 00:00:00 [facility] Influenza Virus 2014-04-24 Completed [facility] of Vaccine Quad IM 3+ 00:00:00 [facility] Influenza Virus 2014-04-24 Completed [facility] of Vaccine Quad IM 3+ 00:00:00 [facility] Influenza Virus 2014-04-24 Completed [facility] of Vaccine Quad IM 3+ 00:00:00 [facility] Influenza Virus 2014-04-24 Completed [facility] of Vaccine Quad IM 3+ 00:00:00 [facility] Influenza Virus 2014-04-24 Completed [facility] of Vaccine Quad IM 3+ 00:00:00 [facility] Influenza Virus 2014-04-24 Completed [facility] of Vaccine Quad IM 3+ 00:00:00 [facility] Influenza Virus 2014-04-24 Completed [facility] of Vaccine Quad IM 3+ 00:00:00 [facility] Influenza Virus 2014-04-24 Completed [facility] of Vaccine Quad IM 3+ 00:00:00 [facility] Influenza Virus 2014-04-24 Completed [facility] of Vaccine Quad IM 3+ 00:00:00 [facility] Influenza Virus 2014-04-24 Completed [facility] of Vaccine Quad IM 3+ 00:00:00 [facility] Influenza Virus 2014-04-24 Completed [facility] Vaccine Quad IM 3+ 00:00:00 [facility] Influenza Virus 2014-04-24 Completed [facility] Vaccine Quad IM 3+ 00:00:00 [facility] Influenza Virus 2014-04-24 Completed [facility] Vaccine Quad IM 3+ 00:00:00 [facility] Influenza Virus 2014-04-24 Completed [facility] Vaccine Quad IM 3+ 00:00:00 [facility] Influenza Virus 2014-04-24 Completed [facility] Vaccine Quad IM 3+ 00:00:00 [facility] Influenza Virus 2014-04-24 Completed [facility] Vaccine Quad IM 3+ 00:00:00 [facility] Influenza Virus 2014-04-24 Completed [facility] Vaccine Quad IM 3+ 00:00:00 [facility] Influenza Virus 2014-04-24 Completed [facility] Vaccine Quad IM 3+ 00:00:00 [facility] Influenza Virus 2014-04-24 Completed [facility] Vaccine Quad IM 3+ 00:00:00 [facility] Influenza Virus 2014-04-24 Completed [facility] Vaccine Quad IM 3+ 00:00:00 [facility] Influenza Virus 2014-04-24 Completed [facility] Vaccine Quad IM 3+ 00:00:00 [facility] Influenza Virus 2014-04-24 Completed [facility] Vaccine Quad IM 3+ 00:00:00 [facility] Influenza Virus 2014-04-24 Completed [facility] Vaccine Quad IM 3+ 00:00:00 [facility] Influenza Virus 2014-04-24 Completed [facility] Vaccine Quad IM 3+ 00:00:00 [facility] Influenza Virus 2014-04-24 Completed [facility] Vaccine Quad IM 3+ 00:00:00 [facility] Influenza Virus 2014-04-24 Completed [facility] Vaccine Quad IM 3+ 00:00:00 [facility] Influenza Virus 2014-04-24 Completed [facility] Vaccine Quad IM 3+ 00:00:00 [facility] Influenza Virus 2014-04-24 Completed [facility] Vaccine Quad IM 3+ 00:00:00 [facility] Influenza Virus 2014-04-24 Completed [facility] Vaccine Quad IM 3+ 00:00:00 [facility] Influenza Virus 2014-04-24 Completed [facility] Vaccine Quad IM 3+ 00:00:00 [facility] Influenza Virus 2014-04-24 Completed [facility] Vaccine Quad IM 3+ 00:00:00 [facility] Influenza Virus 2014-04-24 Completed [facility] Vaccine Quad IM 3+ 00:00:[address] [facility] Influenza Virus 2014-04-24 Completed [facility] Vaccine Quad IM 3+ 00:00:00 [facility] Influenza Virus 2014-04-24 Completed [facility] Vaccine Quad IM 3+ 00:00:[address] [facility] Influenza Virus 2014-04-24 Completed [facility] Vaccine Quad IM 3+ 00:00:00 [facility] Influenza Virus 2014-04-24 Completed [facility] Vaccine Quad IM 3+ 00:00:00 [facility] Influenza Virus 2014-04-24 Completed [facility] Vaccine Quad IM 3+ 00:00:00 [facility] Influenza Virus 2014-04-24 Completed [facility] Vaccine Quad IM 3+ 00:00:00 [facility] Influenza Virus 2014-04-24 Completed [facility] Vaccine Quad IM 3+ 00:00:00 [facility] Influenza Virus 2014-04-24 Completed [facility] Vaccine Quad IM 3+ 00:00:00 [facility] Influenza Virus 2014-04-24 Completed [facility] Vaccine Quad IM 3+ 00:00:00 [facility] Influenza Virus 2014-04-24 Completed [facility] Vaccine Quad IM 3+ 00:00:00 [facility] Influenza Virus 2014-04-24 Completed [facility] Vaccine Quad IM 3+ 00:00:00 [facility] Influenza Virus 2014-04-24 Completed [facility] Vaccine Quad IM 3+ 00:00:[address] [facility] Influenza Virus 2014-04-24 Completed [facility] Vaccine Quad IM 3+ 00:00:00 [facility] Influenza Virus 2014-04-24 Completed [facility] Vaccine Quad IM 3+ 00:00:00 [facility] Influenza Virus 2014-04-24 Completed [facility] Vaccine Quad IM 3+ 00:00:00 [facility] Influenza Virus 2014-04-24 Completed [facility] Vaccine Quad IM 3+ 00:00:00 [facility] Influenza Virus 2014-04-24 Completed [facility] Vaccine Quad IM 3+ 00:00:00 [facility] Influenza Virus 2014-04-24 Completed [facility] Vaccine Quad IM 3+ 00:00:[address] [facility] Influenza Virus 2014-04-24 Completed [facility] Vaccine Quad IM 3+ 00:00:00 [facility] Influenza Virus 2014-04-24 Completed [facility] Vaccine Quad IM 3+ 00:00:00 [facility] Influenza Virus 2014-04-24 Completed [facility] Vaccine Quad IM 3+ 00:00:[address] [facility] Influenza Virus 2014-04-24 Completed [facility] Vaccine Quad IM 3+ 00:00:00 [facility] Influenza Virus 2014-04-24 Completed [facility] Vaccine Quad IM 3+ 00:00:00 [facility] Influenza Virus 2014-04-24 Completed [facility] Vaccine Quad IM 3+ 00:00:00 [facility] Influenza Virus 2014-04-24 Completed [facility] Vaccine Quad IM 3+ 00:00:00 [facility] Influenza Virus 2014-04-24 Completed [facility] Vaccine Quad IM 3+ 00:00:00 [facility] Influenza Virus 2014-04-24 Completed [facility] Vaccine Quad IM 3+ 00:00:00 [facility] Influenza Virus 2014-04-24 Completed [facility] Vaccine Quad IM 3+ 00:00:[address] [facility] Influenza Virus 2014-04-24 Completed [facility] Vaccine Quad IM 3+ 00:00:00 [facility] Influenza Virus 2014-04-24 Completed [facility] Vaccine Quad IM 3+ 00:00:00 [facility] Influenza Virus 2014-04-24 Completed [facility] Vaccine Quad IM 3+ 00:00:[address] [facility] Influenza Virus 2014-04-24 Completed [facility] Vaccine Quad IM 3+ 00:00:00 [facility] Influenza Virus 2014-04-24 Completed [facility] Vaccine Quad IM 3+ 00:00:00 [facility] Influenza Virus 2014-04-24 Completed [facility] Vaccine Quad IM 3+ 00:00:00 [facility] Influenza Virus 2014-04-24 Completed [facility] Vaccine Quad IM 3+ 00:00:00 [facility] Influenza Virus 2014-04-24 Completed [facility] Vaccine Quad IM 3+ 00:00:00 [facility] Influenza Virus 2014-04-24 Completed [facility] Vaccine Quad IM 3+ 00:00:00 [facility] Influenza Virus 2014-04-24 Completed [facility] Vaccine Quad IM 3+ 00:00:00 [facility] Influenza Virus 2014-04-24 Completed [facility] Vaccine Quad IM 3+ 00:00:00 [facility] Influenza Virus 2014-04-24 Completed [facility] Vaccine Quad IM 3+ 00:00:00 [facility] Influenza Virus 2014-04-24 Completed [facility] Vaccine Quad IM 3+ 00:00:00 [facility] Influenza Virus 2014-04-24 Completed [facility] Vaccine Quad IM 3+ 00:00:00 [facility] Influenza Virus 2014-04-24 Completed [facility] Vaccine Quad IM 3+ 00:00:00 [facility] Influenza Virus 2014-04-24 Completed [facility] of Vaccine Quad IM 3+ 00:00:00 [facility] Influenza Virus 2014-04-24 Completed [facility] Vaccine Quad IM 3+ 00:00:00 [facility] Influenza Virus 2014-04-24 Completed [facility] Vaccine Quad IM 3+ 00:00:00 [facility] Influenza Virus 2014-04-24 Completed [facility] Vaccine Quad IM 3+ 00:00:00 [facility] Influenza Virus 2013-04-04 Completed [facility] of Vaccine (3+ yrs) 00:00:00 [facility] Influenza Virus 2013-04-04 Completed [facility] of Vaccine (3+ yrs) 00:00:00 [facility] Influenza Virus 2013-04-04 Completed [facility] of Vaccine (3+ yrs) 00:00:00 [facility] Influenza Virus 2013-04-04 Completed [facility] Vaccine (3+ yrs) 00:00:00 [facility] Influenza Virus 2013-04-04 Completed [facility] Vaccine (3+ yrs) 00:00:00 [facility] Influenza Virus 2013-04-04 Completed [facility] Vaccine (3+ yrs) 00:00:00 [facility] Influenza Virus 2013-04-04 Completed [facility] Vaccine (3+ yrs) 00:00:00 [facility] Influenza Virus 2013-04-04 Completed [facility] Vaccine (3+ yrs) 00:00:00 [facility] Influenza Virus 2013-04-04 Completed [facility] Vaccine (3+ yrs) 00:00:00 [facility] Influenza Virus 2013-04-04 Completed [facility] Vaccine (3+ yrs) 00:00:00 [facility] Influenza Virus 2013-04-04 Completed [facility] Vaccine (3+ yrs) 00:00:00 [facility] Influenza Virus 2013-04-04 Completed [facility] Vaccine (3+ yrs) 00:00:00 [facility] Influenza Virus 2013-04-04 Completed [facility] Vaccine (3+ yrs) 00:00:00 [facility] Influenza Virus 2013-04-04 Completed [facility] Vaccine (3+ yrs) 00:00:00 [facility] Influenza Virus 2013-04-04 Completed [facility] Vaccine (3+ yrs) 00:00:00 [facility] Influenza Virus 2013-04-04 Completed [facility] Vaccine (3+ yrs) 00:00:00 [facility] Influenza Virus 2013-04-04 Completed [facility] Vaccine (3+ yrs) 00:00:00 [facility] Influenza Virus 2013-04-04 Completed [facility] Vaccine (3+ yrs) 00:00:00 [facility] Influenza Virus 2013-04-04 Completed [facility] Vaccine (3+ yrs) 00:00:00 [facility] Influenza Virus 2013-04-04 Completed [facility] Vaccine (3+ yrs) 00:00:00 [facility] Influenza Virus 2013-04-04 Completed [facility] Vaccine (3+ yrs) 00:00:00 [facility] Influenza Virus 2013-04-04 Completed [facility] Vaccine (3+ yrs) 00:00:00 [facility] Influenza Virus 2013-04-04 Completed [facility] Vaccine (3+ yrs) 00:00:00 [facility] Influenza Virus 2013-04-04 Completed [facility] Vaccine (3+ yrs) 00:00:00 [facility] Influenza Virus 2013-04-04 Completed [facility] Vaccine (3+ yrs) 00:00:00 [facility] Influenza Virus 2013-04-04 Completed [facility] Vaccine (3+ yrs) 00:00:00 [facility] Influenza Virus 2013-04-04 Completed [facility] Vaccine (3+ yrs) 00:00:00 [facility] Influenza Virus 2013-04-04 Completed [facility] Vaccine (3+ yrs) 00:00:00 [facility] Influenza Virus 2013-04-04 Completed [facility] Vaccine (3+ yrs) 00:00:00 [facility] Influenza Virus 2013-04-04 Completed [facility] Vaccine (3+ yrs) 00:00:00 [facility] Influenza Virus 2013-04-04 Completed [facility] Vaccine (3+ yrs) 00:00:00 [facility] Influenza Virus 2013-04-04 Completed [facility] Vaccine (3+ yrs) 00:00:00 [facility] Influenza Virus 2013-04-04 Completed [facility] Vaccine (3+ yrs) 00:00:00 [facility] Influenza Virus 2013-04-04 Completed [facility] Vaccine (3+ yrs) 00:00:00 [facility] Influenza Virus 2013-04-04 Completed [facility] Vaccine (3+ yrs) 00:00:00 [facility] Influenza Virus 2013-04-04 Completed [facility] Vaccine (3+ yrs) 00:00:00 [facility] Influenza Virus 2013-04-04 Completed [facility] Vaccine (3+ yrs) 00:00:00 [facility] Influenza Virus 2013-04-04 Completed [facility] Vaccine (3+ yrs) 00:00:00 [facility] Influenza Virus 2013-04-04 Completed [facility] Vaccine (3+ yrs) 00:00:00 [facility] Influenza Virus 2013-04-04 Completed [facility] Vaccine (3+ yrs) 00:00:00 [facility] Influenza Virus 2013-04-04 Completed [facility] Vaccine (3+ yrs) 00:00:00 [facility] Influenza Virus 2013-04-04 Completed [facility] Vaccine (3+ yrs) 00:00:00 [facility] Influenza Virus 2013-04-04 Completed [facility] Vaccine (3+ yrs) 00:00:00 [facility] Influenza Virus 2013-04-04 Completed [facility] Vaccine (3+ yrs) 00:00:00 [facility] Influenza Virus 2013-04-04 Completed [facility] Vaccine (3+ yrs) 00:00:00 [facility] Influenza Virus 2013-04-04 Completed [facility] Vaccine (3+ yrs) 00:00:00 [facility] Influenza Virus 2013-04-04 Completed [facility] Vaccine (3+ yrs) 00:00:00 [facility] Influenza Virus 2013-04-04 Completed [facility] Vaccine (3+ yrs) 00:00:00 [facility] Influenza Virus 2013-04-04 Completed [facility] Vaccine (3+ yrs) 00:00:00 [facility] Influenza Virus 2013-04-04 Completed [facility] Vaccine (3+ yrs) 00:00:00 [facility] Influenza Virus 2013-04-04 Completed [facility] Vaccine (3+ yrs) 00:00:00 [facility] Influenza Virus 2013-04-04 Completed [facility] Vaccine (3+ yrs) 00:00:00 [facility] Influenza Virus 2013-04-04 Completed [facility] Vaccine (3+ yrs) 00:00:00 [facility] Influenza Virus 2013-04-04 Completed [facility] Vaccine (3+ yrs) 00:00:00 [facility] Influenza Virus 2013-04-04 Completed [facility] Vaccine (3+ yrs) 00:00:00 [facility] Influenza Virus 2013-04-04 Completed [facility] Vaccine (3+ yrs) 00:00:00 [facility] Influenza Virus 2013-04-04 Completed [facility] Vaccine (3+ yrs) 00:00:00 [facility] Influenza Virus 2013-04-04 Completed [facility] Vaccine (3+ yrs) 00:00:00 [facility] Influenza Virus 2013-04-04 Completed [facility] Vaccine (3+ yrs) 00:00:00 [facility] Influenza Virus 2013-04-04 Completed [facility] Vaccine (3+ yrs) 00:00:00 [facility] Influenza Virus 2013-04-04 Completed [facility] Vaccine (3+ yrs) 00:00:00 [facility] Influenza Virus 2013-04-04 Completed [facility] Vaccine (3+ yrs) 00:00:00 [facility] Influenza Virus 2013-04-04 Completed [facility] Vaccine (3+ yrs) 00:00:00 [facility] Influenza Virus 2013-04-04 Completed [facility] Vaccine (3+ yrs) 00:00:00 [facility] Influenza Virus 2013-04-04 Completed [facility] Vaccine (3+ yrs) 00:00:00 [facility] Influenza Virus 2013-04-04 Completed [facility] Vaccine (3+ yrs) 00:00:00 [facility] Influenza Virus 2013-04-04 Completed [facility] Vaccine (3+ yrs) 00:00:00 [facility] Influenza Virus 2013-04-04 Completed [facility] Vaccine (3+ yrs) 00:00:00 [facility] Influenza Virus 2013-04-04 Completed [facility] Vaccine (3+ yrs) 00:00:00 [facility] Influenza Virus 2013-04-04 Completed [facility] Vaccine (3+ yrs) 00:00:00 [facility] Influenza Virus 2013-04-04 Completed [facility] Vaccine (3+ yrs) 00:00:00 [facility] Influenza Virus 2013-04-04 Completed [facility] Vaccine (3+ yrs) 00:00:00 [facility] Influenza Virus 2013-04-04 Completed [facility] Vaccine (3+ yrs) 00:00:00 [facility] Influenza Virus 2013-04-04 Completed [facility] Vaccine (3+ yrs) 00:00:00 [facility] Influenza Virus 2013-04-04 Completed [facility] Vaccine (3+ yrs) 00:00:00 [facility] Influenza Virus 2013-04-04 Completed [facility] Vaccine (3+ yrs) 00:00:00 [facility] Influenza Virus 2013-04-04 Completed [facility] Vaccine (3+ yrs) 00:00:00 [facility] Influenza Virus 2013-04-04 Completed [facility] Vaccine (3+ yrs) 00:00:00 [facility] Influenza Virus 2013-04-04 Completed [facility] Vaccine (3+ yrs) 00:00:00 [facility] Influenza Virus 2013-04-04 Completed [facility] Vaccine (3+ yrs) 00:00:00 [facility] Influenza Virus 2013-04-04 Completed [facility] Vaccine (3+ yrs) 00:00:00 [facility] Influenza Virus 2013-04-04 Completed [facility] Vaccine (3+ yrs) 00:00:00 [facility] Influenza Virus 2013-04-04 Completed [facility] Vaccine (3+ yrs) 00:00:00 [facility] Influenza Virus 2013-04-04 Completed [facility] Vaccine (3+ yrs) 00:00:00 [facility] Influenza Virus 2013-04-04 Completed [facility] Vaccine (3+ yrs) 00:00:00 [facility] Influenza Virus 2013-04-04 Completed [facility] Vaccine (3+ yrs) 00:00:00 [facility] Influenza Virus 2013-04-04 Completed [facility] Vaccine (3+ yrs) 00:00:00 [facility] Influenza Virus 2013-04-04 Completed [facility] Vaccine (3+ yrs) 00:00:00 [facility] Influenza Virus 2013-04-04 Completed [facility] Vaccine (3+ yrs) 00:00:00 [facility] Influenza Virus 2013-04-04 Completed [facility] Vaccine (3+ yrs) 00:00:00 [facility] Influenza Virus 2013-04-04 Completed [facility] Vaccine (3+ yrs) 00:00:00 [facility] Influenza Virus 2013-04-04 Completed [facility] Vaccine (3+ yrs) 00:00:00 [facility] Influenza Virus 2013-04-04 Completed [facility] Vaccine (3+ yrs) 00:00:00 [facility] Influenza Virus 2013-04-04 Completed [facility] Vaccine (3+ yrs) 00:00:00 [facility] Influenza Virus 2013-04-04 Completed [facility] Vaccine (3+ yrs) 00:00:00 [facility] TDAP 2012-07-24 Completed [facility] 00:00:00 [facility] TDAP 2012-07-24 Completed [facility] 00:00:00 [facility] TDAP 2012-07-24 Completed [facility] 00:00:00 [facility] TDAP 2012-07-24 Completed [facility] 00:00:00 [facility] TDAP 2012-07-24 Completed [facility] 00:00:00 [facility] TDAP 2012-07-24 Completed [facility] 00[facility]00:00 [facility] TDAP 2012-07-24 Completed [facility] 00:00:00 [facility] TDAP 2012-07-24 Completed [facility] 00:00:00 [facility] TDAP 2012-07-24 Completed [facility] 00:00:00 [facility] TDAP 2012-07-24 Completed [facility] 00:00:00 [facility] TDAP 2012-07-24 Completed [facility] 00:00:00 [facility] TDAP 2012-07-24 Completed [facility] 00:00:00 [facility] TDAP 2012-07-24 Completed [facility] 00:00:00 [facility] TDAP 2012-07-24 Completed [facility] 00:00:00 [facility] TDAP 2012-07-24 Completed [facility] 00:00:00 [facility] TDAP 2012-07-24 Completed [facility] 00:00:00 [facility] TDAP 2012-07-24 Completed [facility] 00:00:00 [facility] TDAP 2012-07-24 Completed [facility] 00:00:00 [facility] TDAP 2012-07-24 Completed [facility] 00:00:00 [facility] TDAP 2012-07-24 Completed [facility] 00:00:00 [facility] TDAP 2012-07-24 Completed [facility] 00:00:00 [facility] TDAP 2012-07-24 Completed [facility] 00:00:00 [facility] TDAP 2012-07-24 Completed [facility] 00:00:00 [facility] TDAP 2012-07-24 Completed [facility] 00:00:00 [facility] TDAP 2012-07-24 Completed [facility] 00:00:00 [facility] TDAP 2012-07-24 Completed [facility] 00:00:00 [facility] TDAP 2012-07-24 Completed [facility] 00:00:00 [facility] TDAP 2012-07-24 Completed [facility] 00:00:00 [facility] TDAP 2012-07-24 Completed [facility] 00:00:00 [facility] TDAP 2012-07-24 Completed [facility] 00:00:00 [facility] TDAP 2012-07-24 Completed [facility] 00:00:00 [facility] TDAP 2012-07-24 Completed [facility] 00:00:00 [facility] TDAP 2012-07-24 Completed [facility] 00:00:00 [facility] TDAP 2012-07-24 Completed [facility] 00:00:00 [facility] TDAP 2012-07-24 Completed [facility] 00:00:00 [facility] TDAP 2012-07-24 Completed [facility] 00:00:00 [facility] TDAP 2012-07-24 Completed [facility] 00:00:00 [facility] TDAP 2012-07-24 Completed [facility] 00:00:00 [facility] TDAP 2012-07-24 Completed [facility] 00:00:00 [facility] TDAP 2012-07-24 Completed [facility] 00:00:00 [facility] TDAP 2012-07-24 Completed [facility] 00:00:00 [facility] TDAP 2012-07-24 Completed [facility] 00:00:00 [facility] TDAP 2012-07-24 Completed [facility] 00:00:00 [facility] TDAP 2012-07-24 Completed [facility] 00:00:00 [facility] TDAP 2012-07-24 Completed [facility] 00:00:00 [facility] TDAP 2012-07-24 Completed [facility] 00:00:00 [facility] TDAP 2012-07-24 Completed [facility] 00:00:00 [facility] TDAP 2012-07-24 Completed [facility] 00:00:00 [facility] TDAP 2012-07-24 Completed [facility] 00:00:00 [facility] TDAP 2012-07-24 Completed [facility] 00:00:00 [facility] TDAP 2012-07-24 Completed [facility] 00:00:00 [facility] TDAP 2012-07-24 Completed [facility] 00:00:00 [facility] TDAP 2012-07-24 Completed [facility] 00:00:00 [facility] TDAP 2012-07-24 Completed [facility] 00:00:00 [facility] TDAP 2012-07-24 Completed [facility] 00:00:00 [facility] TDAP 2012-07-24 Completed [facility] 00:00:00 [facility] TDAP 2012-07-24 Completed [facility] 00:00:00 [facility] TDAP 2012-07-24 Completed [facility] 00:00:00 [facility] TDAP 2012-07-24 Completed [facility] 00:00:00 [facility] [facility] TDAP 2012-07-24 Completed [facility] 00:00:00 [facility] TDAP 2012-07-24 Completed [facility] 00:00:00 [facility] TDAP 2012-07-24 Completed [facility] 00:00:00 [facility] TDAP 2012-07-24 Completed [facility] 00:00:00 [facility] TDAP 2012-07-24 Completed [facility] 00[facility]00:00 [facility] TDAP 2012-07-24 Completed [facility] 00:00:00 [facility] TDAP 2012-07-24 Completed [facility] 00:00:00 [facility] TDAP 2012-07-24 Completed [facility] 00:00:00 [facility] TDAP 2012-07-24 Completed [facility] 00:00:00 [facility] TDAP 2012-07-24 Completed [facility] 00:00:00 [facility] TDAP 2012-07-24 Completed [facility] 00:00:00 [facility] TDAP 2012-07-24 Completed [facility] 00:00:00 [facility] TDAP 2012-07-24 Completed [facility] 00:00:00 [facility] TDAP 2012-07-24 Completed [facility] 00:00:00 [facility] TDAP 2012-07-24 Completed [facility] 00:00:00 [facility] TDAP 2012-07-24 Completed [facility] 00[facility]00:00 [facility] TDAP 2012-07-24 Completed [facility] 00:00:00 [facility] TDAP 2012-07-24 Completed [facility] 00:00:00 [facility] TDAP 2012-07-24 Completed [facility] 00:00:00 [facility] TDAP 2012-07-24 Completed [facility] 00[facility]00:00 [facility] TDAP 2012-07-24 Completed [facility] 00:00:00 [facility] TDAP 2012-07-24 Completed [facility] 00:00:00 [facility] TDAP 2012-07-24 Completed [facility] 00[facility]00:00 [facility] TDAP 2012-07-24 Completed [facility] 00:00:00 [facility] TDAP 2012-07-24 Completed [facility] 00[facility]00:00 [facility] TDAP 2012-07-24 Completed [facility] 00:00:00 [facility] TDAP 2012-07-24 Completed [facility] 00:00:00 [facility] TDAP 2012-07-24 Completed [facility] 00:00:00 [facility] TDAP 2012-07-24 Completed [facility] 00:00:00 [facility] TDAP 2012-07-24 Completed [facility] 00:00:00 [facility] TDAP 2012-07-24 Completed [facility] 00:00:00 [facility] TDAP 2012-07-24 Completed [facility] 00:00:00 [facility] TDAP 2012-07-24 Completed [facility] 00:00:00 [facility] TDAP 2012-07-24 Completed [facility] 00:00:00 [facility] TDAP 2012-07-24 Completed [facility] 00:00:00 [facility] TDAP 2012-07-24 Completed [facility] 00:00:00 [facility] Influenza Virus 2012-05-16 Completed [facility] Vaccine 00:00:00 [facility] Influenza Virus 2012-05-16 Completed [facility] Vaccine 00:00:00 [facility] Influenza Virus 2012-05-16 Completed [facility] Vaccine 00:00:00 [facility] Influenza Virus 2012-05-16 Completed [facility] Vaccine 00:00:00 [facility] Influenza Virus 2012-05-16 Completed [facility] Vaccine 00:00:00 [facility] Influenza Virus 2012-05-16 Completed [facility] Vaccine 00:00:00 [facility] Influenza Virus 2012-05-16 Completed [facility] Vaccine 00:00:00 [facility] Influenza Virus 2012-05-16 Completed [facility] Vaccine 00:00:00 [facility] Influenza Virus 2012-05-16 Completed [facility] Vaccine 00:00:00 [facility] Influenza Virus 2012-05-16 Completed [facility] Vaccine 00:00:00 [facility] Influenza Virus 2012-05-16 Completed [facility] Vaccine 00:00:00 [facility] Influenza Virus 2012-05-16 Completed [facility] Vaccine 00:00:00 [facility] Influenza Virus 2012-05-16 Completed [facility] Vaccine 00:00:00 [facility] Influenza Virus 2012-05-16 Completed [facility] Vaccine 00:00:00 [facility] Influenza Virus 2012-05-16 Completed [facility] Vaccine 00:00:00 [facility] Influenza Virus 2012-05-16 Completed [facility] Vaccine 00:00:00 [facility] Influenza Virus 2012-05-16 Completed [facility] Vaccine 00:00:00 [facility] Influenza Virus 2012-05-16 Completed [facility] Vaccine 00:00:00 [facility] Influenza Virus 2012-05-16 Completed [facility] Vaccine 00:00:00 [facility] Influenza Virus 2012-05-16 Completed [facility] Vaccine 00:00:00 [facility] Influenza Virus 2012-05-16 Completed [facility] Vaccine 00:00:00 [facility] Influenza Virus 2012-05-16 Completed [facility] Vaccine 00:00:00 [facility] Influenza Virus 2012-05-16 Completed [facility] Vaccine 00:00:00 [facility] Influenza Virus 2012-05-16 Completed [facility] Vaccine 00:00:00 [facility] Influenza Virus 2012-05-16 Completed [facility] Vaccine 00:00:00 [facility] Influenza Virus 2012-05-16 Completed [facility] Vaccine 00:00:00 [facility] Influenza Virus 2012-05-16 Completed [facility] Vaccine 00:00:00 [facility] Influenza Virus 2012-05-16 Completed [facility] Vaccine 00:00:00 [facility] Influenza Virus 2012-05-16 Completed [facility] Vaccine 00:00:00 [facility] Influenza Virus 2012-05-16 Completed [facility] Vaccine 00:00:00 [facility] Influenza Virus 2012-05-16 Completed [facility] Vaccine 00:00:00 [facility] Influenza Virus 2012-05-16 Completed [facility] Vaccine 00:00:00 [facility] Influenza Virus 2012-05-16 Completed [facility] Vaccine 00:00:00 [facility] Influenza Virus 2012-05-16 Completed [facility] Vaccine 00:00:00 [facility] Influenza Virus 2012-05-16 Completed [facility] Vaccine 00:00:00 [facility] Influenza Virus 2012-05-16 Completed [facility] Vaccine 00:00:00 [facility] Influenza Virus 2012-05-16 Completed [facility] Vaccine 00:00:00 [facility] Influenza Virus 2012-05-16 Completed [facility] Vaccine 00:00:00 [facility] Influenza Virus 2012-05-16 Completed [facility] Vaccine 00:00:00 [facility] Influenza Virus 2012-05-16 Completed [facility] Vaccine 00:00:00 [facility] Influenza Virus 2012-05-16 Completed [facility] Vaccine 00:00:00 [facility] Influenza Virus 2012-05-16 Completed [facility] Vaccine 00:00:00 [facility] Influenza Virus 2012-05-16 Completed [facility] Vaccine 00:00:00 [facility] Influenza Virus 2012-05-16 Completed [facility] y of Vaccine 00:00:00 [facility] Influenza Virus 2012-05-16 Completed [facility] Vaccine 00:00:00 [facility] Influenza Virus 2012-05-16 Completed [facility] Vaccine 00:00:00 [facility] Influenza Virus 2012-05-16 Completed [facility] Vaccine 00:00:00 [facility] Influenza Virus 2012-05-16 Completed [facility] Vaccine 00:00:00 [facility] Influenza Virus 2012-05-16 Completed [facility] Vaccine 00:00:00 [facility] Influenza Virus 2012-05-16 Completed [facility] Vaccine 00:00:00 [facility] Influenza Virus 2012-05-16 Completed [facility] Vaccine 00:00:00 [facility] Influenza Virus 2012-05-16 Completed [facility] Vaccine 00:00:00 [facility] Influenza Virus 2012-05-16 Completed [facility] Vaccine 00:00:00 [facility] Influenza Virus 2012-05-16 Completed [facility] Vaccine 00:00:00 [facility] Influenza Virus 2012-05-16 Completed [facility] Vaccine 00:00:00 [facility] Influenza Virus 2012-05-16 Completed [facility] Vaccine 00:00:00 [facility] Influenza Virus 2012-05-16 Completed [facility] Vaccine 00:00:00 [facility] Influenza Virus 2012-05-16 Completed [facility] Vaccine 00:00:00 [facility] Influenza Virus 2012-05-16 Completed [facility] Vaccine 00:00:00 [facility] Influenza Virus 2012-05-16 Completed [facility] Vaccine 00:00:00 [facility] Influenza Virus 2012-05-16 Completed [facility] Vaccine 00:00:00 [facility] Influenza Virus 2012-05-16 Completed [facility] Vaccine 00:00:00 [facility] Influenza Virus 2012-05-16 Completed [facility] Vaccine 00:00:00 [facility] Influenza Virus 2012-05-16 Completed [facility] Vaccine 00:00:00 [facility] Influenza Virus 2012-05-16 Completed [facility] of Vaccine 00:00:00 [facility] Influenza Virus 2012-05-16 Completed [facility] Vaccine 00:00:00 [facility] Influenza Virus 2012-05-16 Completed [facility] Vaccine 00:00:00 [facility] Influenza Virus 2012-05-16 Completed [facility] Vaccine 00:00:00 [facility] Influenza Virus 2012-05-16 Completed [facility] Vaccine 00:00:00 [facility] Influenza Virus 2012-05-16 Completed [facility] Vaccine 00:00:00 [facility] Influenza Virus 2012-05-16 Completed [facility] Vaccine 00:00:00 [facility] Influenza Virus 2012-05-16 Completed [facility] Vaccine 00:00:00 [facility] Influenza Virus 2012-05-16 Completed [facility] Vaccine 00:00:00 [facility] Influenza Virus 2012-05-16 Completed [facility] Vaccine 00:00:00 [facility] Influenza Virus 2012-05-16 Completed [facility] Vaccine 00:00:00 [facility] Influenza Virus 2012-05-16 Completed [facility] Vaccine 00:00:00 [facility] Influenza Virus 2012-05-16 Completed [facility] Vaccine 00:00:00 [facility] Influenza Virus 2012-05-16 Completed [facility] Vaccine 00:00:00 [facility] Influenza Virus 2012-05-16 Completed [facility] Vaccine 00:00:00 [facility] Influenza Virus 2012-05-16 Completed [facility] Vaccine 00:00:00 [facility] Influenza Virus 2012-05-16 Completed [facility] Vaccine 00:00:00 [facility] Influenza Virus 2012-05-16 Completed [facility] Vaccine 00:00:00 [facility] Influenza Virus 2012-05-16 Completed [facility] Vaccine 00:00:00 [facility] Influenza Virus 2012-05-16 Completed [facility] Vaccine 00:00:00 [facility] Influenza Virus 2012-05-16 Completed [facility] Vaccine 00:00:00 [facility] Influenza Virus 2012-05-16 Completed [facility] Vaccine 00:00:00 [facility] Influenza Virus 2012-05-16 Completed [facility] Vaccine 00:00:00 [facility] Influenza Virus 2012-05-16 Completed [facility] Vaccine 00:00:00 [facility] Influenza Virus 2012-05-16 Completed [facility] Vaccine 00:00:00 [facility] Influenza Virus 2012-05-16 Completed [facility] Vaccine 00:00:00 [facility] Influenza Virus 2012-05-16 Completed [facility] Vaccine 00:00:00 [facility] Influenza Virus 2012-05-16 Completed [facility] Vaccine 00:00:00 [facility] Influenza Virus 2012-05-16 Completed [facility] Vaccine 00:00:00 [facility] Influenza Virus 2012-05-16 Completed [facility] Vaccine 00:00:00 [facility] Influenza Virus 2012-05-16 Completed [facility] Vaccine 00:00:00 [facility] Influenza Virus 2011-03-18 Completed [facility] Vaccine 00:00:00 [facility] Influenza Virus 2011-03-18 Completed [facility] Vaccine 00:00:00 [facility] Influenza Virus 2011-03-18 Completed [facility] Vaccine 00:00:00 [facility] Influenza Virus 2011-03-18 Completed [facility] Vaccine 00:00:00 [facility] Influenza Virus 2011-03-18 Completed [facility] Vaccine 00:00:00 [facility] Influenza Virus 2011-03-18 Completed [facility] Vaccine 00:00:00 [facility] Influenza Virus 2011-03-18 Completed [facility] Vaccine 00:00:00 [facility] Influenza Virus 2011-03-18 Completed [facility] Vaccine 00:00:00 [facility] Influenza Virus 2011-03-18 Completed [facility] Vaccine 00:00:00 [facility] Influenza Virus 2011-03-18 Completed [facility] Vaccine 00:00:00 [facility] Influenza Virus 2011-03-18 Completed [facility] Vaccine 00:00:00 [facility] Influenza Virus 2011-03-18 Completed [facility] Vaccine 00:00:00 [facility] Influenza Virus 2011-03-18 Completed [facility] Vaccine 00:00:00 [facility] Influenza Virus 2011-03-18 Completed [facility] Vaccine 00:00:00 [facility] Influenza Virus 2011-03-18 Completed [facility] Vaccine 00:00:00 [facility] Influenza Virus 2011-03-18 Completed [facility] Vaccine 00:00:00 [facility] Influenza Virus 2011-03-18 Completed [facility] Vaccine 00[facility]00:00 [facility] Influenza Virus 2011-03-18 Completed [facility] Vaccine 00:00:00 [facility] Influenza Virus 2011-03-18 Completed [facility] Vaccine 00:00:00 [facility] Influenza Virus 2011-03-18 Completed [facility] Vaccine 00:00:00 [facility] Influenza Virus 2011-03-18 Completed [facility] Vaccine 00:00:00 [facility] Influenza Virus 2011-03-18 Completed [facility] Vaccine 00:00:00 [facility] Influenza Virus 2011-03-18 Completed [facility] Vaccine 00:00:00 [facility] Influenza Virus 2011-03-18 Completed [facility] Vaccine 00:00:00 [facility] Influenza Virus 2011-03-18 Completed [facility] Vaccine 00:00:00 [facility] Influenza Virus 2011-03-18 Completed [facility] Vaccine 00:00:00 [facility] Influenza Virus 2011-03-18 Completed [facility] Vaccine 00:00:00 [facility] Influenza Virus 2011-03-18 Completed [facility] Vaccine 00:00:00 [facility] Influenza Virus 2011-03-18 Completed [facility] Vaccine 00:00:00 [facility] Influenza Virus 2011-03-18 Completed [facility] Vaccine 00:00:00 [facility] Influenza Virus 2011-03-18 Completed [facility] Vaccine 00:00:00 [facility] Influenza Virus 2011-03-18 Completed [facility] Vaccine 00:00:00 [facility] Influenza Virus 2011-03-18 Completed [facility] Vaccine 00:00:00 [facility] Influenza Virus 2011-03-18 Completed [facility] Vaccine 00:00:00 [facility] Influenza Virus 2011-03-18 Completed [facility] Vaccine 00:00:00 [facility] Influenza Virus 2011-03-18 Completed [facility] Vaccine 00:00:00 [facility] Influenza Virus 2011-03-18 Completed [facility] Vaccine 00:00:00 [facility] Influenza Virus 2011-03-18 Completed [facility] Vaccine 00[facility]00:00 [facility] Influenza Virus 2011-03-18 Completed [facility] Vaccine 00:00:00 [facility] Influenza Virus 2011-03-18 Completed [facility] Vaccine 00:00:00 [facility] Influenza Virus 2011-03-18 Completed [facility] Vaccine 00:00:00 [facility] Influenza Virus 2011-03-18 Completed [facility] Vaccine 00:00:00 [facility] Influenza Virus 2011-03-18 Completed [facility] Vaccine 00:00:00 [facility] Influenza Virus 2011-03-18 Completed [facility] Vaccine 00:00:00 [facility] Influenza Virus 2011-03-18 Completed [facility] Vaccine 00:00:00 [facility] Influenza Virus 2011-03-18 Completed [facility] Vaccine 00:00:00 [facility] Influenza Virus 2011-03-18 Completed [facility] Vaccine 00:00:00 [facility] Influenza Virus 2011-03-18 Completed [facility] Vaccine 00:00:00 [facility] Influenza Virus 2011-03-18 Completed [facility] Vaccine 00:00:00 [facility] Influenza Virus 2011-03-18 Completed [facility] Vaccine 00:00:00 [facility] Influenza Virus 2011-03-18 Completed [facility] Vaccine 00:00:00 [facility] Influenza Virus 2011-03-18 Completed [facility] Vaccine 00:00:00 [facility] Influenza Virus 2011-03-18 Completed [facility] Vaccine 00:00:00 [facility] Influenza Virus 2011-03-18 Completed [facility] Vaccine 00:00:00 [facility] Influenza Virus 2011-03-18 Completed [facility] Vaccine 00:00:00 [facility] Influenza Virus 2011-03-18 Completed [facility] Vaccine 00:00:00 [facility] Influenza Virus 2011-03-18 Completed [facility] Vaccine 00:00:00 [facility] Influenza Virus 2011-03-18 Completed [facility] Vaccine 00:00:00 [facility] Influenza Virus 2011-03-18 Completed [facility] Vaccine 00:00:00 [facility] Influenza Virus 2011-03-18 Completed [facility] Vaccine 00:00:00 [facility] Influenza Virus 2011-03-18 Completed [facility] Vaccine 00:00:00 [facility] Influenza Virus 2011-03-18 Completed [facility] Vaccine 00:00:00 [facility] Influenza Virus 2011-03-18 Completed [facility] Vaccine 00:00:00 [facility] Influenza Virus 2011-03-18 Completed [facility] Vaccine 00:00:00 [facility] Influenza Virus 2011-03-18 Completed [facility] Vaccine 00:00:00 [facility] Influenza Virus 2011-03-18 Completed [facility] Vaccine 00:00:00 [facility] Influenza Virus 2011-03-18 Completed [facility] Vaccine 00[facility]00:00 [facility] Influenza Virus 2011-03-18 Completed [facility] Vaccine 00:00:00 [facility] Influenza Virus 2011-03-18 Completed [facility] Vaccine 00[facility]00:00 [facility] Influenza Virus 2011-03-18 Completed [facility] Vaccine 00:00:00 [facility] Influenza Virus 2011-03-18 Completed [facility] Vaccine 00:00:00 [facility] Influenza Virus 2011-03-18 Completed [facility] Vaccine 00:00:00 [facility] Influenza Virus 2011-03-18 Completed [facility] Vaccine 00:00:00 [facility] Influenza Virus 2011-03-18 Completed [facility] Vaccine 00:00:00 [facility] Influenza Virus 2011-03-18 Completed [facility] Vaccine 00:00:00 [facility] Influenza Virus 2011-03-18 Completed [facility] Vaccine 00:00:00 [facility] Influenza Virus 2011-03-18 Completed [facility] Vaccine 00:00:00 [facility] Influenza Virus 2011-03-18 Completed [facility] Vaccine 00:00:00 [facility] Influenza Virus 2011-03-18 Completed [facility] Vaccine 00:00:00 [facility] Influenza Virus 2011-03-18 Completed [facility] Vaccine 00:00:00 [facility] Influenza Virus 2011-03-18 Completed [facility] Vaccine 00:00:00 [facility] Influenza Virus 2011-03-18 Completed [facility] Vaccine 00:00:00 [facility] Influenza Virus 2011-03-18 Completed [facility] Vaccine 00:00:00 [facility] Influenza Virus 2011-03-18 Completed [facility] Vaccine 00:00:00 [facility] Influenza Virus 2011-03-18 Completed [facility] Vaccine 00:00:00 [facility] Influenza Virus 2011-03-18 Completed [facility] Vaccine 00:00:00 [facility] Influenza Virus 2011-03-18 Completed [facility] Vaccine 00:00:00 [facility] Influenza Virus 2011-03-18 Completed [facility] Vaccine 00:00:00 [facility] Influenza Virus 2011-03-18 Completed [facility] Vaccine 00[facility]00:00 [facility] Influenza Virus 2011-03-18 Completed [facility] Vaccine 00:00:00 [facility] Influenza Virus 2011-03-18 Completed [facility] Vaccine 00:00:00 [facility] Influenza Virus 2011-03-18 Completed [facility] Vaccine 00:00:00 [facility] Influenza Virus 2011-03-18 Completed [facility] Vaccine 00:00:00 [facility] Influenza Virus 2011-03-18 Completed [facility] Vaccine 00:00:00 [facility] Influenza Virus 2011-03-18 Completed [facility] Vaccine 00:00:00 [facility] Zoster(Zostavax)( 2010-06-10 Completed [facility]ive rs[facility] of ingles) 00:00:00 [facility] Zoster(Zostavax)( 2010-06-10 Completed [facility] of ingles) 00:00:00 [facility] Zoster(Zostavax)( 2010-06-10 Completed [facility] of ingles) 00:00:00 [facility] Zoster(Zostavax)( 2010-06-10 Completed [facility] of ingles) 00:00:00 [facility] Zoster(Zostavax)( 2010-06-10 Completed [facility] of ingles) 00:00:00 [facility] Zoster(Zostavax)( 2010-06-10 Completed [facility] of ingles) 00:00:00 [facility] Zoster(Zostavax)( 2010-06-10 Completed [facility] ingles) 00[facility]00 [facility] [facility] Z[facility](Zostavax)( 2010-06-10 Completed [facility] ing[facility]) 00:00:00 [facility] Zoster(Zostavax)( 2010-06-10 Completed [facility] ingles) 00:00:00 [facility] Zoster(Zostavax)( 2010-06-10 Completed [facility] ingles) 00:00:00 [facility] Zoster(Zostavax)( 2010-06-10 Completed [facility] ingles) 00:00:00 [facility] Zoster(Zostavax)( 2010-06-10 Completed [facility] ingles) 00:00:00 [facility] Zoster(Zostavax)( 2010-06-10 Completed [facility] ingles) 00:00:00 [facility] Zoster(Zostavax)( 2010-06-10 Completed [facility] ingles) 00:00:00 [facility] Zoster(Zostavax)( 2010-06-10 Completed [facility] ingles) 00:00:00 [facility] Zoster(Zostavax)( 2010-06-10 Completed [facility] ingles) 00:00:00 [facility] Zoster(Zostavax)( 2010-06-10 Completed [facility] ingles) 00:00:00 [facility] Zoster(Zostavax)( 2010-06-10 Completed [facility] ingles) 00:00:00 [facility] Zoster(Zostavax)( 2010-06-10 Completed [facility] ingles) 00:00:00 [facility] Zoster(Zostavax)( 2010-06-10 Completed [facility] ingles) 00:00:00 [facility] Zoster(Zostavax)( 2010-06-10 Completed [facility] ingles) 00:00:00 [facility] Zoster(Zostavax)( 2010-06-10 Completed [facility] ingles) 00:00:00 [facility] Zoster(Zostavax)( 2010-06-10 Completed [facility] ingles) 00:00:00 [facility] Zoster(Zostavax)( 2010-06-10 Completed [facility] ingles) 00:00:00 [facility] Zoster(Zostavax)( 2010-06-10 Completed [facility] ingles) 00:00:00 [facility] Zoster(Zostavax)( 2010-06-10 Completed [facility] ingles) 00:00:00 [facility] Zoster(Zostavax)( 2010-06-10 Completed [facility] ingles) 00:00:00 [facility] Zoster(Zostavax)( 2010-06-10 Completed [facility] ingles) 00:00:00 [facility] Zoster(Zostavax)( 2010-06-10 Completed [facility] ingles) 00:00:00 [facility] Zoster(Zostavax)( 2010-06-10 Completed [facility] ingles) 00:00:00 [facility] Zoster(Zostavax)( 2010-06-10 Completed [facility] ingles) 00:00:00 [facility] Zoster(Zostavax)( 2010-06-10 Completed [facility] ingles) 00:00:00 [facility] Zoster(Zostavax)( 2010-06-10 Completed [facility] ingles) 00:00:00 [facility] Zoster(Zostavax)( 2010-06-10 Completed [facility] ingles) 00:00:00 [facility] Zoster(Zostavax)( 2010-06-10 Completed [facility] ingles) 00:00:00 [facility] Zoster(Zostavax)( 2010-06-10 Completed [facility] ingles) 00:00:00 [facility] Zoster(Zostavax)( 2010-06-10 Completed [facility] ingles) 00:00:00 [facility] Zoster(Zostavax)( 2010-06-10 Completed [facility] ingles) 00:00:00 [facility] Zoster(Zostavax)( 2010-06-10 Completed [facility] ingles) 00:00:00 [facility] Zoster(Zostavax)( 2010-06-10 Completed [facility] ingles) 00:00:00 [facility] Zoster(Zostavax)( 2010-06-10 Completed [facility] ingles) 00:00:00 [facility] Zoster(Zostavax)( 2010-06-10 Completed [facility] ingles) 00:00:00 [facility] Zoster(Zostavax)( 2010-06-10 Completed [facility] ingles) 00:00:00 [facility] Zoster(Zostavax)( 2010-06-10 Completed [facility] ingles) 00:00:00 [facility] Zoster(Zostavax)( 2010-06-10 Completed [facility] ingles) 00:00:00 [facility] Zoster(Zostavax)( 2010-06-10 Completed [facility] ingles) 00:00:00 [facility] Zoster(Zostavax)( 2010-06-10 Completed [facility] ingles) 00:00:00 [facility] Zoster(Zostavax)( 2010-06-10 Completed [facility] ingles) 00:00:00 [facility] Zoster(Zostavax)( 2010-06-10 Completed [facility] ingles) 00:00:00 [facility] Zoster(Zostavax)( 2010-06-10 Completed [facility] ingles) 00:00:00 [facility] Zoster(Zostavax)( 2010-06-10 Completed [facility] ingles) 00:00:00 [facility] Zoster(Zostavax)( 2010-06-10 Completed [facility] ingles) 00:00:00 [facility] Zoster(Zostavax)( 2010-06-10 Completed [facility] ingles) 00:00:00 [facility] Zoster(Zostavax)( 2010-06-10 Completed [facility] ingles) 00:00:00 [facility] Zoster(Zostavax)( 2010-06-10 Completed [facility] ingles) 00:00:00 [facility] Zoster(Zostavax)( 2010-06-10 Completed [facility] ingles) 00:00:00 [facility] Zoster(Zostavax)( 2010-06-10 Completed [facility] ingles) 00:00:00 [facility] Zoster(Zostavax)( 2010-06-10 Completed [facility] ingles) 00:00:00 [facility] Zoster(Zostavax)( 2010-06-10 Completed [facility] ingles) 00:00:00 [facility] Zoster(Zostavax)( 2010-06-10 Completed [facility] ingles) 00:00:00 [facility] Zoster(Zostavax)( 2010-06-10 Completed [facility] ingles) 00:00:00 [facility] Zoster(Zostavax)( 2010-06-10 Completed [facility] ingles) 00:00:00 [facility] Zoster(Zostavax)( 2010-06-10 Completed [facility] ingles) 00:00:00 [facility] Zoster(Zostavax)( 2010-06-10 Completed [facility] ingles) 00:00:00 [facility] Zoster(Zostavax)( 2010-06-10 Completed [facility] ingles) 00:00:00 [facility] Zoster(Zostavax)( 2010-06-10 Completed [facility] ingles) 00:00:00 [facility] Zoster(Zostavax)( 2010-06-10 Completed [facility] ingles) 00:00:00 [facility] Zoster(Zostavax)( 2010-06-10 Completed [facility]les) 00:00:00 [facility] Zoster(Zostavax)( 2010-06-10 Completed [facility] ingles) 00:00:00 [facility] Zoster(Zostavax)( 2010-06-10 Completed [facility] ingles) 00:00:00 [facility] Zoster(Zostavax)( 2010-06-10 Completed [facility] ingles) 00:00:00 [facility] Zoster(Zostavax)( 2010-06-10 Completed [facility] ingles) 00:00:00 [facility] Zoster(Zostavax)( 2010-06-10 Completed [facility] ingles) 00:00:00 [facility] Zoster(Zostavax)( 2010-06-10 Completed [facility] ingles) 00:00:00 [facility] Zoster(Zostavax)( 2010-06-10 Completed [facility] ingles) 00:00:00 [facility] Zoster(Zostavax)( 2010-06-10 Completed [facility] ingles) 00:00:00 [facility] Zoster(Zostavax)( 2010-06-10 Completed [facility] ingles) 00:00:00 [facility] Zoster(Zostavax)( 2010-06-10 Completed [facility] ingles) 00:00:00 [facility] Zoster(Zostavax)( 2010-06-10 Completed [facility] ingles) 00:00:00 [facility] Zoster(Zostavax)( 2010-06-10 Completed [facility] ingles) 00:00:00 [facility] Zoster(Zostavax)( 2010-06-10 Completed [facility] ingles) 00:00:00 [facility] Zoster(Zostavax)( 2010-06-10 Completed [facility] ingles) 00:00:00 [facility] Zoster(Zostavax)( 2010-06-10 Completed [facility] ingles) 00:00:00 [facility] Zoster(Zostavax)( 2010-06-10 Completed [facility] ingles) 00:00:00 [facility] Zoster(Zostavax)( 2010-06-10 Completed [facility] ingles) 00:00:00 [facility] Zoster(Zostavax)( 2010-06-10 Completed [facility] ingles) 00:00:00 [facility] Zoster(Zostavax)( 2010-06-10 Completed [facility] ingles) 00:00:00 [facility] Zoster(Zostavax)( 2010-06-10 Completed [facility] ingles) 00:00:00 [facility] Zoster(Zostavax)( 2010-06-10 Completed [facility] ingles) 00:00:00 [facility] Zoster(Zostavax)( 2010-06-10 Completed [facility] ingles) 00:00:00 [facility] Zoster(Zostavax)( 2010-06-10 Completed [facility] ingles) 00:00:00 [facility] Zoster(Zostavax)( 2010-06-10 Completed [facility] ingles) 00:00:00 [facility] Zoster(Zostavax)( 2010-06-10 Completed [facility] ingles) 00:00:00 [facility] Zoster(Zostavax)( 2010-06-10 Completed [facility] ingles) 00:00:00 [facility] Zoster(Zostavax)( 2010-06-10 Completed [facility]) 00:00:00 [facility] Influenza Virus 2010-06-08 Completed [facility] Vaccine 00:00:00 [facility] Influenza Virus 2010-06-08 Completed [facility] Vaccine 00:00:00 [facility] Influenza Virus 2010-06-08 Completed [facility] Vaccine 00:00:00 [facility] Influenza Virus 2010-06-08 Completed [facility] Vaccine 00:00:00 [facility] Influenza Virus 2010-06-08 Completed [facility] Vaccine 00:00:00 [facility] Influenza Virus 2010-06-08 Completed [facility] Vaccine 00:00:00 [facility] Influenza Virus 2010-06-08 Completed [facility] Vaccine 00:00:00 [facility] Influenza Virus 2010-06-08 Completed [facility] Vaccine 00:00:00 [facility] Influenza Virus 2010-06-08 Completed [facility] Vaccine 00:00:00 [facility] Influenza Virus 2010-06-08 Completed [facility] Vaccine 00:00:00 [facility] Influenza Virus 2010-06-08 Completed [facility] Vaccine 00:00:00 [facility] Influenza Virus 2010-06-08 Completed [facility] Vaccine 00:00:00 [facility] Influenza Virus 2010-06-08 Completed [facility] Vaccine 00:00:00 [facility] Influenza Virus 2010-06-08 Completed [facility] Vaccine 00:00:00 [facility] Influenza Virus 2010-06-08 Completed [facility] Vaccine 00:00:00 [facility] Influenza Virus 2010-06-08 Completed [facility] Vaccine 00:00:00 [facility] Influenza Virus 2010-06-08 Completed [facility] Vaccine 00:00:00 [facility] Influenza Virus 2010-06-08 Completed [facility] Vaccine 00:00:00 [facility] Influenza Virus 2010-06-08 Completed [facility] Vaccine 00:00:00 [facility] Influenza Virus 2010-06-08 Completed [facility] Vaccine 00:00:00 [facility] Influenza Virus 2010-06-08 Completed [facility] Vaccine 00:00:00 [facility] Influenza Virus 2010-06-08 Completed [facility] Vaccine 00:00:00 [facility] Influenza Virus 2010-06-08 Completed [facility] Vaccine 00:00:00 [facility] Influenza Virus 2010-06-08 Completed [facility] Vaccine 00:00:00 [facility] Influenza Virus 2010-06-08 Completed [facility] Vaccine 00:00:00 [facility] Influenza Virus 2010-06-08 Completed [facility] Vaccine 00:00:00 [facility] Influenza Virus 2010-06-08 Completed [facility] Vaccine 00:00:00 [facility] Influenza Virus 2010-06-08 Completed [facility] Vaccine 00:00:00 [facility] Influenza Virus 2010-06-08 Completed [facility] Vaccine 00:00:00 [facility] Influenza Virus 2010-06-08 Completed [facility] Vaccine 00:00:00 [facility] Influenza Virus 2010-06-08 Completed [facility] Vaccine 00:00:00 [facility] Influenza Virus 2010-06-08 Completed [facility] Vaccine 00:00:00 [facility] Influenza Virus 2010-06-08 Completed [facility] Vaccine 00:00:00 [facility] Influenza Virus 2010-06-08 Completed [facility] Vaccine 00:00:00 [facility] Influenza Virus 2010-06-08 Completed [facility] Vaccine 00:00:00 [facility] Influenza Virus 2010-06-08 Completed [facility] Vaccine 00:00:00 [facility] Influenza Virus 2010-06-08 Completed [facility] Vaccine 00:00:00 [facility] Influenza Virus 2010-06-08 Completed [facility] Vaccine 00:00:00 [facility] Influenza Virus 2010-06-08 Completed [facility] Vaccine 00:00:00 [facility] Influenza Virus 2010-06-08 Completed [facility] Vaccine 00:00:00 [facility] Influenza Virus 2010-06-08 Completed [facility] Vaccine 00:00:00 [facility] Influenza Virus 2010-06-08 Completed [facility] Vaccine 00:00:00 [facility] Influenza Virus 2010-06-08 Completed [facility] Vaccine 00:00:00 [facility] Influenza Virus 2010-06-08 Completed [facility] Vaccine 00:00:00 [facility] Influenza Virus 2010-06-08 Completed [facility] Vaccine 00:00:00 [facility] Influenza Virus 2010-06-08 Completed [facility] Vaccine 00:00:00 [facility] Influenza Virus 2010-06-08 Completed [facility] Vaccine 00:00:00 [facility] Influenza Virus 2010-06-08 Completed [facility] Vaccine 00:00:00 [facility] Influenza Virus 2010-06-08 Completed [facility] Vaccine 00:00:00 [facility] Influenza Virus 2010-06-08 Completed [facility] Vaccine 00:00:00 [facility] Influenza Virus 2010-06-08 Completed [facility] Vaccine 00:00:00 [facility] Influenza Virus 2010-06-08 Completed [facility] Vaccine 00:00:00 [facility] Influenza Virus 2010-06-08 Completed [facility] Vaccine 00:00:00 [facility] Influenza Virus 2010-06-08 Completed [facility] Vaccine 00:00:00 [facility] Influenza Virus 2010-06-08 Completed [facility] Vaccine 00:00:00 [facility] Influenza Virus 2010-06-08 Completed [facility] Vaccine 00:00:00 [facility] Influenza Virus 2010-06-08 Completed [facility] Vaccine 00:00:00 [facility] Influenza Virus 2010-06-08 Completed [facility] Vaccine 00:00:00 [facility] Influenza Virus 2010-06-08 Completed [facility] Vaccine 00:00:00 [facility] Influenza Virus 2010-06-08 Completed [facility] Vaccine 00:00:00 [facility] Influenza Virus 2010-06-08 Completed [facility] Vaccine 00:00:00 [facility] Influenza Virus 2010-06-08 Completed [facility] Vaccine 00:00:00 [facility] Influenza Virus 2010-06-08 Completed [facility] Vaccine 00:00:00 [facility] Influenza Virus 2010-06-08 Completed [facility] Vaccine 00:00:00 [facility] Influenza Virus 2010-06-08 Completed [facility] Vaccine 00:00:00 [facility] Influenza Virus 2010-06-08 Completed [facility] Vaccine 00:00:00 [facility] Influenza Virus 2010-06-08 Completed [facility] Vaccine 00:00:00 [facility] Influenza Virus 2010-06-08 Completed [facility] Vaccine 00:00:00 [facility] Influenza Virus 2010-06-08 Completed [facility] Vaccine 00:00:00 [facility] Influenza Virus 2010-06-08 Completed [facility] Vaccine 00:00:00 [facility] Influenza Virus 2010-06-08 Completed [facility] Vaccine 00:00:00 [facility] Influenza Virus 2010-06-08 Completed [facility] Vaccine 00:00:00 [facility] Influenza Virus 2010-06-08 Completed [facility] Vaccine 00:00:00 [facility] Influenza Virus 2010-06-08 Completed [facility] Vaccine 00:00:00 [facility] Influenza Virus 2010-06-08 Completed [facility] Vaccine 00:00:00 [facility] Influenza Virus 2010-06-08 Completed [facility] Vaccine 00:00:00 [facility] Influenza Virus 2010-06-08 Completed [facility] Vaccine 00:00:00 [facility] Influenza Virus 2010-06-08 Completed [facility] Vaccine 00:00:00 [facility] Influenza Virus 2010-06-08 Completed [facility] Vaccine 00:00:00 [facility] Influenza Virus 2010-06-08 Completed [facility] Vaccine 00:00:00 [facility] Influenza Virus 2010-06-08 Completed [facility] Vaccine 00:00:00 [facility] Influenza Virus 2010-06-08 Completed [facility] Vaccine 00:00:00 [facility] Influenza Virus 2010-06-08 Completed [facility] Vaccine 00:00:00 [facility] Influenza Virus 2010-06-08 Completed [facility] Vaccine 00:00:00 [facility] Influenza Virus 2010-06-08 Completed [facility] Vaccine 00:00:00 [facility] Influenza Virus 2010-06-08 Completed [facility] Vaccine 00:00:00 [facility] Influenza Virus 2010-06-08 Completed [facility] Vaccine 00:00:00 [facility] Influenza Virus 2010-06-08 Completed [facility] Vaccine 00:00:00 [facility] Influenza Virus 2010-06-08 Completed [facility] Vaccine 00:00:00 [facility] Influenza Virus 2010-06-08 Completed [facility] Vaccine 00:00:00 [facility] Influenza Virus 2010-06-08 Completed [facility] Vaccine 00:00:00 [facility] Influenza Virus 2010-06-08 Completed [facility] Vaccine 00:00:00 [facility] Influenza Virus 2010-06-08 Completed [facility] Vaccine 00:00:00 [facility] Influenza Virus 2010-06-08 Completed [facility] Vaccine 00:00:00 [facility] Influenza Virus 2010-06-08 Completed [facility] Vaccine 00:00:00 [facility] H1n1 Vaccine 2009-07-03 Completed [facility] 00:00:00 [facility] H1n1 Vaccine 2009-07-03 Completed [facility] 00:00:00 [facility] H1n1 Vaccine 2009-07-03 Completed [facility] 00:00:00 [facility] H1n1 Vaccine 2009-07-03 Completed [facility] 00:00:00 [facility] H1n1 Vaccine 2009-07-03 Completed [facility] 00:00:00 [facility] H1n1 Vaccine 2009-07-03 Completed [facility] 00:00:00 [facility] H1n1 Vaccine 2009-07-03 Completed [facility] 00:00:00 [facility] H1n1 Vaccine 2009-07-03 Completed [facility] 00:00:00 [facility] H1n1 Vaccine 2009-07-03 Completed [facility] 00:00:00 [facility] H1n1 Vaccine 2009-07-03 Completed [facility] 00:00:00 [facility] H1n1 Vaccine 2009-07-03 Completed [facility] 00:00:00 [facility] H1n1 Vaccine 2009-07-03 Completed [facility] 00:00:00 [facility] H1n1 Vaccine 2009-07-03 Completed [facility] 00:00:00 [facility] H1n1 Vaccine 2009-07-03 Completed [facility] 00:00:00 [facility] H1n1 Vaccine 2009-07-03 Completed [facility] 00:00:00 [facility] H1n1 Vaccine 2009-07-03 Completed [facility] 00:00:00 [facility] H1n1 Vaccine 2009-07-03 Completed [facility] 00:00:00 [facility] H1n1 Vaccine 2009-07-03 Completed [facility] 00:00:00 [facility] H1n1 Vaccine 2009-07-03 Completed [facility] 00:00:00 [facility] H1n1 Vaccine 2009-07-03 Completed [facility] 00:00:00 [facility] H1n1 Vaccine 2009-07-03 Completed [facility] 00:00:00 [facility] H1n1 Vaccine 2009-07-03 Completed [facility] 00:00:00 [facility] H1n1 Vaccine 2009-07-03 Completed [facility] 00:00:00 [facility] H1n1 Vaccine 2009-07-03 Completed [facility] 00:00:00 [facility] H1n1 Vaccine 2009-07-03 Completed [facility] 00:00:00 [facility] H1n1 Vaccine 2009-07-03 Completed [facility] 00:00:00 [facility] H1n1 Vaccine 2009-07-03 Completed [facility] 00:00:00 [facility] H1n1 Vaccine 2009-07-03 Completed [facility] 00:00:00 [facility] H1n1 Vaccine 2009-07-03 Completed [facility] 00:00:00 [facility] H1n1 Vaccine 2009-07-03 Completed [facility] 00:00:00 [facility] H1n1 Vaccine 2009-07-03 Completed [facility] 00:00:00 [facility] H1n1 Vaccine 2009-07-03 Completed [facility] 00:00:00 [facility] H1n1 Vaccine 2009-07-03 Completed [facility] 00:00:00 [facility] H1n1 Vaccine 2009-07-03 Completed [facility] 00:00:00 [facility] H1n1 Vaccine 2009-07-03 Completed [facility] 00:00:00 [facility] H1n1 Vaccine 2009-07-03 Completed [facility] 00:00:00 [facility] H1n1 Vaccine 2009-07-03 Completed [facility] 00:00:00 [facility] H1n1 Vaccine 2009-07-03 Completed [facility] 00:00:00 [facility] H1n1 Vaccine 2009-07-03 Completed [facility] 00:00:00 [facility] H1n1 Vaccine 2009-07-03 Completed [facility] 00:00:00 [facility] H1n1 Vaccine 2009-07-03 Completed [facility] 00:00:00 [facility] H1n1 Vaccine 2009-07-03 Completed [facility] 00:00:00 [facility] H1n1 Vaccine 2009-07-03 Completed [facility] 00:00:00 [facility] H1n1 Vaccine 2009-07-03 Completed [facility] 00:00:00 [facility] H1n1 Vaccine 2009-07-03 Completed [facility] 00:00:00 [facility] H1n1 Vaccine 2009-07-03 Completed [facility] 00:00:00 [facility] H1n1 Vaccine 2009-07-03 Completed [facility] 00:00:00 [facility] H1n1 Vaccine 2009-07-03 Completed [facility] 00:[facility]:00 [facility] H1n1 Vaccine 2009-07-03 Completed [facility] 00:00:00 [facility] H1n1 Vaccine 2009-07-03 Completed [facility] 00:00:00 [facility] H1n1 Vaccine 2009-07-03 Completed [facility] 00:00:00 [facility] H1n1 Vaccine 2009-07-03 Completed [facility] 00:00:00 [facility] H1n1 Vaccine 2009-07-03 Completed [facility] 00:00:00 [facility] H1n1 Vaccine 2009-07-03 Completed [facility] 00:00:00 [facility] H1n1 Vaccine 2009-07-03 Completed [facility] 00:00:00 [facility] H1n1 Vaccine 2009-07-03 Completed [facility] 00:00:00 [facility] H1n1 Vaccine 2009-07-03 Completed [facility] 00:00:00 [facility] H1n1 Vaccine 2009-07-03 Completed [facility] 00:00:00 [facility] H1n1 Vaccine 2009-07-03 Completed [facility] 00:00:00 [facility] H1n1 Vaccine 2009-07-03 Completed [facility] 00:00:00 [facility] H1n1 Vaccine 2009-07-03 Completed [facility] 00:00:00 [facility] H1n1 Vaccine 2009-07-03 Completed [facility] 00:00:00 [facility] H1n1 Vaccine 2009-07-03 Completed [facility] 00:00:00 [facility] H1n1 Vaccine 2009-07-03 Completed [facility] 00:00:00 [facility] H1n1 Vaccine 2009-07-03 Completed [facility] 00:00:00 [facility] H1n1 Vaccine 2009-07-03 Completed [facility] 00:00:00 [facility] H1n1 Vaccine 2009-07-03 Completed [facility] 00:00:00 [facility] H1n1 Vaccine 2009-07-03 Completed [facility] 00:00:00 [facility] H1n1 Vaccine 2009-07-03 Completed [facility] 00:00:00 [facility] H1n1 Vaccine 2009-07-03 Completed [facility] 00:00:00 [facility] H1n1 Vaccine 2009-07-03 Completed [facility] 00:00:00 [facility] H1n1 Vaccine 2009-07-03 Completed [facility] 00:00:00 [facility] H1n1 Vaccine 2009-07-03 Completed [facility] 00:00:00 [facility] H1n1 Vaccine 2009-07-03 Completed [facility] 00:00:00 [facility] H1n1 Vaccine 2009-07-03 Completed [facility] 00:00:00 [facility] H1n1 Vaccine 2009-07-03 Completed [facility] 00:00:00 [facility] H1n1 Vaccine 2009-07-03 Completed [facility] 00:00:00 [facility] H1n1 Vaccine 2009-07-03 Completed [facility] 00:00:00 [facility] H1n1 Vaccine 2009-07-03 Completed [facility] 00:00:00 [facility] H1n1 Vaccine 2009-07-03 Completed [facility] 00:00:00 [facility] H1n1 Vaccine 2009-07-03 Completed [facility] 00:00:00 [facility] H1n1 Vaccine 2009-07-03 Completed [facility] 00:00:00 [facility] H1n1 Vaccine 2009-07-03 Completed [facility] 00:00:00 [facility] H1n1 Vaccine 2009-07-03 Completed [facility] 00:00:00 [facility] H1n1 Vaccine 2009-07-03 Completed [facility] 00:00:00 [facility] H1n1 Vaccine 2009-07-03 Completed [facility] 00:00:00 [facility] H1n1 Vaccine 2009-07-03 Completed [facility] 00:00:00 [facility] H1n1 Vaccine 2009-07-03 Completed [facility] 00:00:00 [facility] H1n1 Vaccine 2009-07-03 Completed [facility] 00:00:00 [facility] H1n1 Vaccine 2009-07-03 Completed [facility] 00:00:00 [facility] H1n1 Vaccine 2009-07-03 Completed [facility] 00:00:00 [facility] H1n1 Vaccine 2009-07-03 Completed [facility] 00:00:00 [facility] H1n1 Vaccine 2009-07-03 Completed [facility] 00:00:00 [facility] H1n1 Vaccine 2009-07-03 Completed [facility] 00:00:00 [facility] H1n1 Vaccine 2009-07-03 Completed [facility] 00:00:00 [facility] Pneumococcal 2008-05-10 Completed [facility] Polysaccharide, 00:00:00 [facility] PPSV23 (PNEUMOVAX) [facility] Pneumococcal 2008-05-10 Completed [facility] Polysaccharide, 00:00:00 [facility] PPSV23 (PNEUMOVAX) [facility] Pneumococcal 2008-05-10 Completed [facility] Polysaccharide, 00:00:00 [facility] PPSV23 (PNEUMOVAX) [facility] Pneumococcal 2008-05-10 Completed [facility] Polysaccharide, 00:00:00 [facility] PPSV23 (PNEUMOVAX) [facility] Pneumococcal 2008-05-10 Completed [facility] Polysaccharide, 00:00:00 [facility] PPSV23 (PNEUMOVAX) [facility] Pneumococcal 2008-05-10 Completed [facility] Polysaccharide, 00:00:00 [facility] PPSV23 (PNEUMOVAX) [facility] Pneumococcal 2008-05-10 Completed [facility] Polysaccharide, 00:00:00 [facility] PPSV23 (PNEUMOVAX) [facility] Pneumococcal 2008-05-10 Completed [facility] Polysaccharide, 00:00:00 [facility] PPSV23 (PNEUMOVAX) [facility] Pneumococcal 2008-05-10 Completed [facility] Polysaccharide, 00:00:00 [facility] PPSV23 (PNEUMOVAX) [facility] Pneumococcal 2008-05-10 Completed [facility] Polysaccharide, 00:00:00 [facility] PPSV23 (PNEUMOVAX) [facility] Pneumococcal 2008-05-10 Completed [facility] Polysaccharide, 00:00:00 [facility] PPSV23 (PNEUMOVAX) [facility] Pneumococcal 2008-05-10 Completed [facility] Polysaccharide, 00:00:00 [facility] PPSV23 (PNEUMOVAX) [facility] Pneumococcal 2008-05-10 Completed [facility] Polysaccharide, 00:00:00 [facility] PPSV23 (PNEUMOVAX) [facility] Pneumococcal 2008-05-10 Completed [facility] Polysaccharide, 00:00:00 [facility] PPSV23 (PNEUMOVAX) [facility] Pneumococcal 2008-05-10 Completed [facility] Polysaccharide, 00:00:00 [facility] PPSV23 (PNEUMOVAX) [facility] Pneumococcal 2008-05-10 Completed [facility] Polysaccharide, 00:00:00 [facility] PPSV23 (PNEUMOVAX) [facility] Pneumococcal 2008-05-10 Completed [facility] Polysaccharide, 00:00:00 [facility] PPSV23 (PNEUMOVAX) [facility] Pneumococcal 2008-05-10 Completed [facility] Polysaccharide, 00:00:00 [facility] PPSV23 (PNEUMOVAX) [facility] Pneumococcal 2008-05-10 Completed [facility] Polysaccharide, 00:00:00 [facility] PPSV23 (PNEUMOVAX) [facility] Pneumococcal 2008-05-10 Completed [facility] Polysaccharide, 00:00:00 [facility] PPSV23 (PNEUMOVAX) [facility] Pneumococcal 2008-05-10 Completed [facility] Polysaccharide, 00:00:00 [facility] PPSV23 (PNEUMOVAX) [facility] Pneumococcal 2008-05-10 Completed [facility] Polysaccharide, 00:00:00 [facility] PPSV23 (PNEUMOVAX) [facility] Pneumococcal 2008-05-10 Completed [facility] Polysaccharide, 00:00:00 [facility] PPSV23 (PNEUMOVAX) [facility] Pneumococcal 2008-05-10 Completed [facility] Polysaccharide, 00:00:00 [facility] PPSV23 (PNEUMOVAX) [facility] Pneumococcal 2008-05-10 Completed [facility] Polysaccharide, 00:00:00 [facility] PPSV23 (PNEUMOVAX) [facility] Pneumococcal 2008-05-10 Completed [facility] Polysaccharide, 00:00:00 [facility] PPSV23 (PNEUMOVAX) [facility] Pneumococcal 2008-05-10 Completed [facility] Polysaccharide, 00:00:00 [facility] PPSV23 (PNEUMOVAX) [facility] Pneumococcal 2008-05-10 Completed [facility] Polysaccharide, 00:00:00 [facility] PPSV23 (PNEUMOVAX) [facility] Pneumococcal 2008-05-10 Completed [facility] Polysaccharide, 00:00:00 [facility] PPSV23 (PNEUMOVAX) [facility] Pneumococcal 2008-05-10 Completed [facility] Polysaccharide, 00:00:00 [facility] PPSV23 (PNEUMOVAX) [facility] Pneumococcal 2008-05-10 Completed [facility] Polysaccharide, 00:00:00 [facility] PPSV23 (PNEUMOVAX) [facility] Pneumococcal 2008-05-10 Completed [facility] Polysaccharide, 00:00:00 [facility] PPSV23 (PNEUMOVAX) Branch Pneumococcal 2008-05-10 Completed [facility] Polysaccharide, 00:00:00 [facility] PPSV23 (PNEUMOVAX) [facility] Pneumococcal 2008-05-10 Completed [facility] Polysaccharide, 00:00:00 [facility] PPSV23 (PNEUMOVAX) [facility] Pneumococcal 2008-05-10 Completed [facility] Polysaccharide, 00:00:00 [facility] PPSV23 (PNEUMOVAX) [facility] Pneumococcal 2008-05-10 Completed [facility] Polysaccharide, 00:00:00 [facility] PPSV23 (PNEUMOVAX) [facility] Pneumococcal 2008-05-10 Completed [facility] Polysaccharide, 00:00:00 [facility] PPSV23 (PNEUMOVAX) [facility] Pneumococcal 2008-05-10 Completed [facility] Polysaccharide, 00:00:00 [facility] PPSV23 (PNEUMOVAX) Branch Pneumococcal 2008-05-10 Completed [facility] Polysaccharide, 00:00:00 [facility] PPSV23 (PNEUMOVAX) Branch Pneumococcal 2008-05-10 Completed [facility] Polysaccharide, 00:00:00 [facility] PPSV23 (PNEUMOVAX) Branch Pneumococcal 2008-05-10 Completed [facility] Polysaccharide, 00:00:00 [facility] PPSV23 (PNEUMOVAX) Branch Pneumococcal 2008-05-10 Completed [facility] Polysaccharide, 00:00:00 [facility] PPSV23 (PNEUMOVAX) [facility] Pneumococcal 2008-05-10 Completed [facility] Polysaccharide, 00:00:00 [facility] PPSV23 (PNEUMOVAX) Branch Pneumococcal 2008-05-10 Completed [facility] Polysaccharide, 00:00:00 [facility] PPSV23 (PNEUMOVAX) Branch Pneumococcal 2008-05-10 Completed [facility] Polysaccharide, 00:00:00 [facility] PPSV23 (PNEUMOVAX) [facility] Pneumococcal 2008-05-10 Completed [facility] Polysaccharide, 00:00:00 [facility] PPSV23 (PNEUMOVAX) Branch Pneumococcal 2008-05-10 Completed [facility] Polysaccharide, 00:00:00 [facility] PPSV23 (PNEUMOVAX) Branch Pneumococcal 2008-05-10 Completed [facility] Polysaccharide, 00:00:00 [facility] PPSV23 (PNEUMOVAX) Branch Pneumococcal 2008-05-10 Completed [facility] Polysaccharide, 00:00:00 [facility] PPSV23 (PNEUMOVAX) Branch Pneumococcal 2008-05-10 Completed [facility] Polysaccharide, 00:00:00 [facility] PPSV23 (PNEUMOVAX) Branch Pneumococcal 2008-05-10 Completed [facility] Polysaccharide, 00:00:00 [facility] PPSV23 (PNEUMOVAX) Branch Pneumococcal 2008-05-10 Completed [facility] Polysaccharide, 00:00:00 [facility] PPSV23 (PNEUMOVAX) Branch Pneumococcal 2008-05-10 Completed [facility] Polysaccharide, 00:00:00 [facility] PPSV23 (PNEUMOVAX) Branch Pneumococcal 2008-05-10 Completed [facility] Polysaccharide, 00:00:00 [facility] PPSV23 (PNEUMOVAX) Branch Pneumococcal 2008-05-10 Completed [facility] Polysaccharide, 00:00:00 [facility] PPSV23 (PNEUMOVAX) Branch Pneumococcal 2008-05-10 Completed [facility] Polysaccharide, 00:00:00 [facility] PPSV23 (PNEUMOVAX) Branch Pneumococcal 2008-05-10 Completed [facility] Polysaccharide, 00:00:00 [facility] PPSV23 (PNEUMOVAX) Branch Pneumococcal 2008-05-10 Completed [facility] Polysaccharide, 00:00:00 [facility] PPSV23 (PNEUMOVAX) Branch Pneumococcal 2008-05-10 Completed [facility] Polysaccharide, 00:00:00 [facility] PPSV23 (PNEUMOVAX) Branch Pneumococcal 2008-05-10 Completed [facility] Polysaccharide, 00:00:00 [facility] PPSV23 (PNEUMOVAX) Branch Pneumococcal 2008-05-10 Completed [facility] Polysaccharide, 00:00:00 [facility] PPSV23 (PNEUMOVAX) Branch Pneumococcal 2008-05-10 Completed [facility] Polysaccharide, 00:00:00 [facility] PPSV23 (PNEUMOVAX) Branch Pneumococcal 2008-05-10 Completed [facility] Polysaccharide, 00:00:00 [facility] PPSV23 (PNEUMOVAX) Branch Pneumococcal 2008-05-10 Completed [facility] Polysaccharide, 00:00:00 [facility] PPSV23 (PNEUMOVAX) Branch Pneumococcal 2008-05-10 Completed [facility] Polysaccharide, 00:00:00 [facility] PPSV23 (PNEUMOVAX) Branch Pneumococcal 2008-05-10 Completed [facility] Polysaccharide, 00:00:00 [facility] PPSV23 (PNEUMOVAX) Branch Pneumococcal 2008-05-10 Completed [facility] Polysaccharide, 00:00:00 [facility] PPSV23 (PNEUMOVAX) Branch Pneumococcal 2008-05-10 Completed [facility] Polysaccharide, 00:00:00 [facility] PPSV23 (PNEUMOVAX) Branch Pneumococcal 2008-05-10 Completed [facility] Polysaccharide, 00:00:00 [facility] PPSV23 (PNEUMOVAX) Branch Pneumococcal 2008-05-10 Completed [facility] Polysaccharide, 00:00:00 [facility] PPSV23 (PNEUMOVAX) Branch Pneumococcal 2008-05-10 Completed [facility] Polysaccharide, 00:00:00 [facility] PPSV23 (PNEUMOVAX) Branch Pneumococcal 2008-05-10 Completed [facility] Polysaccharide, 00:00:00 [facility] PPSV23 (PNEUMOVAX) Branch Pneumococcal 2008-05-10 Completed [facility] Polysaccharide, 00:00:00 [facility] PPSV23 (PNEUMOVAX) Branch Pneumococcal 2008-05-10 Completed [facility] Polysaccharide, 00:00:00 [facility] PPSV23 (PNEUMOVAX) Branch Pneumococcal 2008-05-10 Completed [facility] Polysaccharide, 00:00:00 [facility] PPSV23 (PNEUMOVAX) Branch Pneumococcal 2008-05-10 Completed [facility] Polysaccharide, 00:00:00 [facility] PPSV23 (PNEUMOVAX) Branch Pneumococcal 2008-05-10 Completed [facility] Polysaccharide, 00:00:00 [facility] PPSV23 (PNEUMOVAX) Branch Pneumococcal 2008-05-10 Completed [facility] Polysaccharide, 00:00:00 [facility] PPSV23 (PNEUMOVAX) Branch Pneumococcal 2008-05-10 Completed [facility] Polysaccharide, 00:00:00 [facility] PPSV23 (PNEUMOVAX) Branch Pneumococcal 2008-05-10 Completed [facility] Polysaccharide, 00:00:00 [facility] PPSV23 (PNEUMOVAX) Branch Pneumococcal 2008-05-10 Completed [facility] Polysaccharide, 00:00:00 [facility] PPSV23 (PNEUMOVAX) Branch Pneumococcal 2008-05-10 Completed [facility] Polysaccharide, 00:00:00 [facility] PPSV23 (PNEUMOVAX) Branch Pneumococcal 2008-05-10 Completed [facility] Polysaccharide, 00:00:00 [facility] PPSV23 (PNEUMOVAX) Branch Pneumococcal 2008-05-10 Completed [facility] Polysaccharide, 00:00:00 [facility] PPSV23 (PNEUMOVAX) Branch Pneumococcal 2008-05-10 Completed [facility] Polysaccharide, 00:00:00 [facility] PPSV23 (PNEUMOVAX) Branch Pneumococcal 2008-05-10 Completed [facility] Polysaccharide, 00:00:00 [facility] PPSV23 (PNEUMOVAX) Branch Pneumococcal 2008-05-10 Completed [facility] Polysaccharide, 00:00:00 [facility] PPSV23 (PNEUMOVAX) Branch Pneumococcal 2008-05-10 Completed [facility] Polysaccharide, 00:00:00 [facility] PPSV23 (PNEUMOVAX) Branch Pneumococcal 2008-05-10 Completed [facility] Polysaccharide, 00:00:00 [facility] PPSV23 (PNEUMOVAX) Branch Pneumococcal 2008-05-10 Completed [facility] Polysaccharide, 00:00:00 [facility] PPSV23 (PNEUMOVAX) Branch Pneumococcal 2008-05-10 Completed [facility] Polysaccharide, 00:00:00 [facility] PPSV23 (PNEUMOVAX) Branch Pneumococcal 2008-05-10 Completed [facility] Polysaccharide, 00:00:00 [facility] PPSV23 (PNEUMOVAX) Branch Pneumococcal 2008-05-10 Completed [facility] Polysaccharide, 00:00:00 [facility] PPSV23 (PNEUMOVAX) Branch Pneumococcal 2008-05-10 Completed [facility] Polysaccharide, 00:00:00 [facility] PPSV23 (PNEUMOVAX) Branch Pneumococcal 2008-05-10 Completed [facility] Polysaccharide, 00:00:00 [facility] PPSV23 (PNEUMOVAX) [facility] Influenza Virus 2007-05-10 Completed [facility] Vaccine 00:00:00 [facility] Influenza Virus 2007-05-10 Completed [facility] Vaccine 00:00:00 [facility] Influenza Virus 2007-05-10 Completed [facility] Vaccine 00:00:00 [facility] Influenza Virus 2007-05-10 Completed [facility] Vaccine 00:00:00 [facility] Influenza Virus 2007-05-10 Completed [facility] Vaccine 00:00:00 [facility] Influenza Virus 2007-05-10 Completed [facility] Vaccine 00:00:00 [facility] Influenza Virus 2007-05-10 Completed [facility] Vaccine 00:00:00 [facility] Influenza Virus 2007-05-10 Completed [facility] Vaccine 00:00:00 [facility] Influenza Virus 2007-05-10 Completed [facility] Vaccine 00:00:00 [facility] Influenza Virus 2007-05-10 Completed [facility] Vaccine 00:00:00 [facility] Influenza Virus 2007-05-10 Completed [facility] Vaccine 00:00:00 [facility] Influenza Virus 2007-05-10 Completed [facility] Vaccine 00:00:00 [facility] Influenza Virus 2007-05-10 Completed [facility] Vaccine 00:00:00 [facility] Influenza Virus 2007-05-10 Completed [facility] Vaccine 00:00:00 [facility] Influenza Virus 2007-05-10 Completed [facility] Vaccine 00:00:00 [facility] Influenza Virus 2007-05-10 Completed [facility] Vaccine 00:00:00 [facility] Influenza Virus 2007-05-10 Completed [facility] Vaccine 00:00:00 [facility] Influenza Virus 2007-05-10 Completed [facility] Vaccine 00:00:00 [facility] Influenza Virus 2007-05-10 Completed [facility] Vaccine 00:00:00 [facility] Influenza Virus 2007-05-10 Completed [facility] Vaccine 00:00:00 [facility] Influenza Virus 2007-05-10 Completed [facility] Vaccine 00:00:00 [facility] Influenza Virus 2007-05-10 Completed [facility] Vaccine 00:00:00 [facility] Influenza Virus 2007-05-10 Completed [facility] Vaccine 00:00:00 [facility] Influenza Virus 2007-05-10 Completed [facility] Vaccine 00:00:00 [facility] Influenza Virus 2007-05-10 Completed [facility] Vaccine 00:00:00 [facility] Influenza Virus 2007-05-10 Completed [facility] Vaccine 00:00:00 [facility] Influenza Virus 2007-05-10 Completed [facility] Vaccine 00:00:00 [facility] Influenza Virus 2007-05-10 Completed [facility] Vaccine 00:00:00 [facility] Influenza Virus 2007-05-10 Completed [facility] Vaccine 00:00:00 [facility] Influenza Virus 2007-05-10 Completed [facility] Vaccine 00:00:00 [facility] Influenza Virus 2007-05-10 Completed [facility] Vaccine 00:00:00 [facility] Influenza Virus 2007-05-10 Completed [facility] Vaccine 00:00:00 [facility] Influenza Virus 2007-05-10 Completed [facility] Vaccine 00:00:00 [facility] Influenza Virus 2007-05-10 Completed [facility] Vaccine 00:00:00 [facility] Influenza Virus 2007-05-10 Completed [facility] Vaccine 00:00:00 [facility] Influenza Virus 2007-05-10 Completed [facility] Vaccine 00:00:00 [facility] Influenza Virus 2007-05-10 Completed [facility] Vaccine 00:00:00 [facility] Influenza Virus 2007-05-10 Completed [facility] Vaccine 00:00:00 [facility] Influenza Virus 2007-05-10 Completed [facility] Vaccine 00:00:00 [facility] Influenza Virus 2007-05-10 Completed [facility] Vaccine 00:00:00 [facility] Influenza Virus 2007-05-10 Completed [facility] Vaccine 00:00:00 [facility] Influenza Virus 2007-05-10 Completed [facility] Vaccine 00:00:00 [facility] Influenza Virus 2007-05-10 Completed [facility] Vaccine 00:00:00 [facility] Influenza Virus 2007-05-10 Completed [facility] Vaccine 00:00:00 [facility] Influenza Virus 2007-05-10 Completed [facility] Vaccine 00:00:00 [facility] Influenza Virus 2007-05-10 Completed [facility] Vaccine 00:00:00 [facility] Influenza Virus 2007-05-10 Completed [facility] Vaccine 00:00:00 [facility] Influenza Virus 2007-05-10 Completed [facility] Vaccine 00:00:00 [facility] Influenza Virus 2007-05-10 Completed [facility] Vaccine 00:00:00 [facility] Influenza Virus 2007-05-10 Completed [facility] Vaccine 00:00:00 [facility] Influenza Virus 2007-05-10 Completed [facility] Vaccine 00:00:00 [facility] Influenza Virus 2007-05-10 Completed [facility] Vaccine 00:00:00 [facility] Influenza Virus 2007-05-10 Completed [facility] Vaccine 00:00:00 [facility] Influenza Virus 2007-05-10 Completed [facility] Vaccine 00:00:00 [facility] Influenza Virus 2007-05-10 Completed [facility] Vaccine 00:00:00 [facility] Influenza Virus 2007-05-10 Completed [facility] Vaccine 00:00:00 [facility] Influenza Virus 2007-05-10 Completed [facility] Vaccine 00:00:00 [facility] Influenza Virus 2007-05-10 Completed [facility] Vaccine 00:00:00 [facility] Influenza Virus 2007-05-10 Completed [facility] Vaccine 00:00:00 [facility] Influenza Virus 2007-05-10 Completed [facility] Vaccine 00:00:00 [facility] Influenza Virus 2007-05-10 Completed [facility] Vaccine 00:00:00 [facility] Influenza Virus 2007-05-10 Completed [facility] Vaccine 00:00:00 [facility] Influenza Virus 2007-05-10 Completed [facility] Vaccine 00:00:00 [facility] Influenza Virus 2007-05-10 Completed [facility] Vaccine 00:00:00 [facility] Influenza Virus 2007-05-10 Completed [facility] Vaccine 00:00:00 [facility] Influenza Virus 2007-05-10 Completed [facility] Vaccine 00:00:00 [facility] Influenza Virus 2007-05-10 Completed [facility] Vaccine 00:00:00 [facility] Influenza Virus 2007-05-10 Completed [facility] Vaccine 00:00:00 [facility] Influenza Virus 2007-05-10 Completed [facility] Vaccine 00:00:00 [facility] Influenza Virus 2007-05-10 Completed [facility] Vaccine 00:00:00 [facility] Influenza Virus 2007-05-10 Completed [facility] Vaccine 00:00:00 [facility] Influenza Virus 2007-05-10 Completed [facility] Vaccine 00:00:00 [facility] Influenza Virus 2007-05-10 Completed [facility] Vaccine 00:00:00 [facility] Influenza Virus 2007-05-10 Completed [facility] Vaccine 00:00:00 [facility] Influenza Virus 2007-05-10 Completed [facility] Vaccine 00:00:00 [facility] Influenza Virus 2007-05-10 Completed [facility] Vaccine 00:00:00 [facility] Influenza Virus 2007-05-10 Completed [facility] Vaccine 00:00:00 [facility] Influenza Virus 2007-05-10 Completed [facility] Vaccine 00:00:00 [facility] Influenza Virus 2007-05-10 Completed [facility] Vaccine 00:00:00 [facility] Influenza Virus 2007-05-10 Completed [facility] Vaccine 00:00:00 [facility] Influenza Virus 2007-05-10 Completed [facility] Vaccine 00:00:00 [facility] Influenza Virus 2007-05-10 Completed [facility] Vaccine 00:00:00 [facility] Influenza Virus 2007-05-10 Completed [facility] Vaccine 00:00:00 [facility] Influenza Virus 2007-05-10 Completed Universit y of Vaccine 00:00:00 [facility] Influenza Virus 2007-05-10 Completed Universit y of Vaccine 00:00:00 [facility] Influenza Virus 2007-05-10 Completed Universit y of Vaccine 00:00:00 [facility] Influenza Virus 2007-05-10 Completed Universit y of Vaccine 00:00:00 [facility] Influenza Virus 2007-05-10 Completed Universit y of Vaccine 00:00:00 [facility] Influenza Virus 2007-05-10 Completed Universit y of Vaccine 00:00:00 [facility] Influenza Virus 2007-05-10 Completed Universit y of Vaccine 00:00:00 [facility] Influenza Virus 2007-05-10 Completed Universit y of Vaccine 00:00:00 [facility] Influenza Virus 2007-05-10 Completed Universit y of Vaccine 00:00:00 [facility] Influenza Virus 2007-05-10 Completed Universit y of Vaccine 00:00:00 [facility] Influenza Virus 2007-05-10 Completed Universit y of Vaccine 00:00:00 [facility] Influenza Virus 2007-05-10 Completed Universit y of Vaccine 00:00:00 [facility] Vital Signs Vital Name Observation Time Observation Value Comments Source Systolic blood 2023-01-18 16:55:00 130 mm[Hg] Univer sity of pressure [facility] Diastolic blood 2023-01-18 16:55:00 59 mm[Hg] Unive rsity of pressure [facility] Heart rate 2023-01-18 16:55:00 66 /min [facility] Respiratory rate 2023-01-18 16:55:00 16 /min [facility] in 2023-01-18 16:55:00 92 /min [facility] Arterial blood by [facility] Pulse oximetry [place] Body height 2023-01-18 15:29:00 [facility] Body weight 2023-01-18 15:29:00 61.236 kg [facility] BMI 2023-01-18 15:29:00 22.47 kg/m2 [facility] Systolic blood 2022-10-18 18:01:00 94 mm[Hg] Univer sity of pressure [facility] Diastolic blood 2022-10-18 18:01:00 56 mm[Hg] Unive rsity of pressure [facility] Heart rate 2022-10-18 18:01:00 56 /min [facility] Respiratory rate 2022-10-18 18:01:00 14 /min [facility] Body height 2022-10-18 18:01:00 167.6 cm [facility] Body weight 2022-10-18 18:01:00 56.246 kg [facility] BMI 2022-10-18 18:01:00 20.01 kg/m2 [facility] Oxygen saturation in 2022-10-18 18:01:00 96 /min University of Arterial blood by [place] [facility]ulse oxim[facility] Systolic blood 2022-08-25 16:46:00 112 mm[Hg] Univer sity of pressure [facility] Diastolic blood 2022-08-25 16:46:00 72 mm[Hg] Unive rsity of pressure [facility] Heart rate 2022-08-25 16:46:00 65 /min [facility] Body temperature 2022-08-25 16:46:00 36.28 Tess [facility] Respiratory rate 2022-08-25 16:46:00 16 /min Univ [facility] Body height 2022-08-25 16:46:00 165.1 cm [facility] Body weight 2022-08-25 16:46:00 56.246 kg [facility] BMI 2022-08-25 16:46:00 20.63 kg/m2 [facility] Oxygen saturation in 2022-08-25 16:46:00 93 /min University of Arterial blood by [place] [facility] Pulse oximetry [facility] Systolic blood 2022-04-19 16:26:00 112 mm[Hg] Univer sity of pressure [facility] Diastolic blood 2022-04-19 16:26:00 74 mm[Hg] Unive rsity of pressure [facility] Heart rate 2022-04-19 16:26:00 66 /min [facility] Respiratory rate 2022-04-19 16:26:00 12 /min Univ [facility] Body height 2022-04-19 16:26:00 165.1 cm [facility] Body weight 2022-04-19 16:26:00 49.896 kg [facility] BMI 2022-04-19 16:26:00 18.30 kg/m2 [facility] Oxygen saturation in 2022-04-19 16:26:00 92 /min University of Arterial blood by [facility] Pulse oximetry Branch Systolic blood 2022-03-10 16:10:00 147 mm[Hg] Univer sity of pressure [facility] Diastolic blood 2022-03-10 16:10:00 71 mm[Hg] Unive rsity of pressure [facility] Heart rate 2022-03-10 16:10:00 58 /min [facility] Body temperature 2022-03-10 16:10:00 36.39 Tess [facility] Body height 2022-03-10 16:10:00 165.1 cm [facility] Body weight 2022-03-10 16:10:00 49.896 kg [facility] BMI 2022-03-10 16:10:00 18.30 kg/m2 [facility] Systolic blood 2022-01-04 16:23:00 135 mm[Hg] Univer sity of pressure [facility] Diastolic blood 2022-01-04 16:23:00 65 mm[Hg] Unive rsity of pressure [facility] Heart rate 2022-01-04 16:23:00 64 /min [facility] Body temperature 2022-01-04 16:23:00 36.39 Tess [facility] Body height 2022-01-04 16:23:00 166.4 cm [facility] Body weight 2022-01-04 16:23:00 52.164 kg [facility] BMI 2022-01-04 16:23:00 18.85 kg/m2 [facility] Oxygen saturation in 2022-01-04 16:23:00 90 /min University of Arterial blood by [facility] Pulse oximetry Branch Procedures Procedure Date / Time Performed Performing Clinician Dylan e [place] TIME OR 2023-01-18 16:35:00 Ciro Beckman [facility] (NON-REPORTABLE) Medical Branch [facility] PATIENT FINANCIAL 2022-10-18 17:42:05 Doctor Unassigned, No [facility] POLICY Name Medical Branch ASSIGNMENT OF BENEFITS 2022-08-25 16:36:41 Doctor Unassigned, No [facility] Name [facility] PAIN MANAGEMENT 2022-05-20 06:01:00 Doctor Unassigned, No [facility] AGREEMENT & INFORMED Name Medical Bra [facility] CONSENT Encounters Start End Encounter Admission Attending Care Care Encounter Source Date/Time Date/Time Type Type Clinicians Facility Department ID 2021-05-10 Emergency [facility] [id number] Univers [facility]:54[facility] 2021-05-09 Emergency [facility] [id number] Univers 16:19:43 [facility] 2021-05-07 [facility] [id number] Univers 10:54:28 RADHA [facility] 2023-05-05 2023-05-05 [facility] [id number] Univers 13:45:00 13:45:00 ZOEY [facility] 2023-02-21 2023-02-21 [facility] [id number] Univers 14:30:00 14:30:00 CIRO [facility] 2023-01-31 2023-01-31 [facility] 1.2.840.114 [id number] Univers 00:00:00 00:00:00 Tod A PRIMARY 350.1.13.10 [place] [id number] [address] 2023-01-31 2023-01-31 [facility] 1.2.840.114 [id number] Univers 00:00:00 00:00:00 Tod A PRIMARY 350.1.13.10 [place] [id number] [address] 2023-01-25 2023-01-25 [facility] 1.2.840.114 [id number] Univers 00:00:00 00:00:00 Tod A PRIMARY 350.1.13.10 [place] [id number] Ga dical [address] 2023-01-24 2023-01-24 [facility] 1.2.840.114 [id number] Univers 00:00:00 00:00:00 Ciro MULTISPEC 350.1.13.10 [place]2.[place] [id number] [address] [facility] 2023-01-24 2023-01-24 Patient [facility] 1.2.840.114 [id number] Univers 00:00:00 00:00:00 Secure Msg Tod A PRIMARY 350.1.13.10 [place]2.[place].2.[place] [id number] Ga dical [address] [place] 2023-01-24 2023-01-24 Patient [facility] 1.2.840.114 [id number] Univers 00:00:00 00:00:00 Secure Msg Tod A PRIMARY 350.1.13.10 it[place]2.[place] [id number] [place] dical [address] [place] 2023-01-24 2023-01-24 Telephone [facility] 1.2.840.114 [id number] Univers 00:00:00 00:00:00 Tod A PRIMARY 350.1.13.10 [place] [id number] Ga dical [address] [place] 2023-01-22 2023-01-22 [facility] DoCritical access hospital 1.2.840.114 [id number] Univers 00:00:00 00:00:00 Ciro MULTISPEC 350.1.13.10 [place] I[place]TY [place]2.[place] [id number] [facility] [place] [address] [place] [facility] 2023-01-22 2023-01-22 Telephone [facility] 1.2.840.114 [id number] Univers 00:00:00 00:00:00 Tod A PRIMARY 350.1.13.10 it[place]2.[place].2.[place] [id number] Ga dical [address] 2023-01-20 2023-01-20 Patient Roverto [facility] 1.2.039.974 [id number] Univers 00:00:00 00:00:00 Outreach Doreen Montemayor PRIMARY 350.1.13.10 [place]2.[place] [id number] Ga dical [address] 2023-01-20 2023-01-20 [facility] 1.2.840.114 [id number] Univers 00:00:00 00:00:00 Ciro MULTISPEC 350.1.13.10 [place]TY [place]2.[place] [id number] [facility] AND [place] [address] [place] [facility] 2023-01-19 2023-01-19 [facility] 1.2.840.114 [id number] [facility] 00:00:00 00:00:00 Secure g Tod A PRIMARY 350.1.13.10 [place]2.[place] [id number] Ga dical [address] [place] 2023-01-18 2023-01-18 [facility] 1.2.840.114 [id number] Univers 11:08:10 23:59:00 [facility] 350.1.13.10 [place].2.[place].2.[place] [id number] [facility] AND [place] [address] [place] [facility] 2023-01-18 2023-01-18 [facility] 1.2.840.114 [id number] Univers 11:00:00 11:30:00 Visit Ciro GOMEZPEC 350.1.13.10 it[place].2.7.2.[place] [id number] [facility] AND [place] [address] [place] [facility] 2023-01-18 2023-01-18 Outpatient [facility] [id number] Univers 11:00:00 11:00:00 [facility] ity of [facility] 2023-01-18 2023-01-18 Telephone [facility] 1.2.840.114 [id number] Univers 00:00:00 00:00:00 Doreen M PRIMARY 350.1.13.10 [place]2.7.2.[place] [id number] Ga dical [address] 2023-01-18 2023-01-18 Telephone [facility] 1.2.840.114 [id number] Univers 00:00:00 00:00:00 [facility] MULTISPEC 350.1.13.10 [place]2.[place].2.[place] [id number] [facility] AND [place] [address] [place] [facility] 2023-01-14 2023-01-14 Telephone [facility] 1.2.840.114 [id number] Univers 00:00:00 00:00:00 [facility] MULTISPEC 350.1.13.10 [place]2.[place].2.[place] [id number] [facility] AND [place] [address] [place] [facility] 2023-01-10 2023-01-10 Telephone [facility] 1.2.840.114 104 [id number] Univers 00:00:00 00:00:00 Tod A PRIMARY 350.1.13.10 it[place] C[place] 4.2.7.2.[place] [id number] Ga dical [address] [place] 2023-01-09 2023-01-09 Patient [facility] 1.2.840.114 [id number] Univers 00:00:00 00:00:00 Secure Msg Tod A PRIMARY 350.1.13.10 [place] C[place] 4.2.7.2.[place] [id number] Ga dical [address] 2023-01-07 2023-01-07 Refill [facility] 1.2.840.114 [id number] Univers 00:00:00 00:00:00 Tod A PRIMARY 350.1.13.10 it[place]2.[place] [id number] Ga dical [address] 2022-12-30 2022-12-30 Refill Dogeri, [facility] 1.2.840.114 [id number] Univers 00:00:00 00:00:00 [facility] MULTISPEC 350.1.13.10 [place]TY [place].2.[place].2.[place] [id number] [address] [facility] 2022-12-29 2022-12-29 [facility] 1.2.840.114 [id number] Univers 00:00:00 00:00:00 Tod A PRIMARY 350.1.13.10 it[place] C[place] 4.2.7.2.[place] [id number] Ga dical [address] 2022-12-29 2022-12-29 Refill [facility] 1.2.840.114 [id number] Univers 00:00:00 00:00:00 [facility] MULTISPEC 350.1.13.10 [place]TY 4.2.[place].2.[place] [id number] [address] [facility] 2022-12-27 2022-12-27 [facility] 1.2.840.114 [id number] Univers 00:00:00 00:00:00 Tod A PRIMARY 350.1.13.10 it[place] of C[place] 4.2.7.2.[place] [id number] Ga dical [address] 2022-12-27 2022-12-27 [facility] 1.2.840.114 [id number] Univers 00:00:00 00:00:00 Tod A PRIMARY 350.1.13.10 it[place] of C[place] 4.2.7.2.[place] [id number] Ga dical [address] 2022-12-23 2022-12-23 [facility] 1.2.840.114 [id number] Univers 00:00:00 00:00:00 [facility] MULTISPEC 350.1.13.10 ity of IALTY 4.2.7.2.686 [facility] [place] [id number] [facility] AND [address] [facility] 2022-12-17 2022-12-17 Telephone [facility] 1.2.840.114 [id number] Univers 00:00:00 00:00:00 Tod A PRIMARY 350.1.13.10 ity of CARE 4.2.7.2.686 [facility] [phone] [facility] Branch 2022-11-18 2022-11-18 [facility] [id number] Univers 10:00:00 10:00:00 [facility] 2022-11-15 2022-11-15 Patient [facility] 1.2.840.114 [id number] Univers 00:00:00 00:00:00 Secure Msg [facility] 350.1.13.10 ity of IALTY 4.2.7.2.686 [facility] [place] [id number] [address] [facility] 2022-11-15 2022-11-15 [facility] 1.2.840.114 [id number] Univers 00:00:00 00:00:00 [facility] 350.1.13.10 ity of IALTY 4.2.7.2.686 [facility] [place] [id number] [address] [facility] 2022-11-12 2022-11-12 Telephone [facility] 1.2.840.114 1 [id number] Univers 00:00:00 00:00:00 [facility] 350.1.13.10 ity of IALTY 4.2.7.2.686 [facility] [place] [id number] [facility] AND [address] [facility] 2022-11-09 2022-11-09 Refill [facility] 1.2.840.114 [id number] Univers 00:00:00 00:00:00 Tod A PRIMARY 350.1.13.10 [place] C[place].2.7.2.[place] [id number] Ga dictn [address] [place] 2022-10-31 2022-10-31 [facility] 1.2.840.114 [id number] Univers 00:00:00 00:00:00 [facility] 350.1.13.10 [place]TY 4.2.[place].2.[place] [id number] [address] [facility] 2022-10-19 2022-10-19 Patient [facility] 1.2.840.114 [id number] Univers 00:00:00 00:00:00 Secure Msg Tod A PRIMARY 350.1.13.10 [place] C[place]2.7.2.[place] [id number] [address] 2022-10-18 2022-10-18 [facility] [id number] Univers 13:00:00 14:14:11 [facility] 2022-10-18 2022-10-18 Office [facility] 1.2.840.114 [id number] Univers 13:00:00 14:14:[address] [facility] 350.1.13.10 it[place] 4.2.7.2.[place] [id number] [address] [facility] 2022-10-18 2022-10-18 Orders Doctor PERI 1.2.840.114 [id number] Univers 00:00:00 00:00:00 Only Unassigned, NAVI 350.1.13.10 ity of [facility] [place] [facility] 4.2.7.2.686 Arie as [id number] [facility] [address] 2022-10-12 2022-10-12 [id number] Univers 13:00:00 13:00:00 [facility] 2022-09-29 2022-09-29 Outpatient [facility] [id number] Univers 00:00:00 00:00:00 TOD ity of [facility] 2022-09-23 2022-09-23 Telephone [facility] 1.2.840.114 [id number] Univers 00:00:00 00:00:00 Ciro MULTISPEC 350.1.13.10 it[place] 4.2.7.2.[place] [id number] [address] [facility] 2022-09-23 2022-09-23 [facility] 1.2.840.114 [id number] Univers 00:00:00 00:00:00 Tod A PRIMARY 350.1.13.10 it[place] of C[place] 4.2.7.2.[place] [id number] Ga dical [address] 2022-09-23 2022-09-23 Patient [facility] 1.2.840.114 [id number] Univers 00:00:00 00:00:00 Secure Msg Tod A PRIMARY 350.1.13.10 it[place] of C[place] 4.2.7.2.[place] [id number] Ga dical [address] 2022-09-02 2022-09-02 [facility] 1.2.840.114 [id number] Univers 00:00:00 00:00:00 Tod A PRIMARY 350.1.13.10 it[place] of C[place] 4.2.7.2.[place] [id number] Ga dical [address] 2022-09-02 2022-09-02 [facility] 1.2.840.114 [id number] Univers 00:00:00 00:00:00 Tod A PRIMARY 350.1.13.10 it[place] of CARE 4.2.7.2.[place] [id number] Ga dical [address] 2022-08-31 2022-08-31 Patient [facility] 1.2.840.114 [id number] Univers 00:00:00 00:00:00 Secure Msg Tod A PRIMARY 350.1.13.10 it[place] of C[place] 4.2.7.2.[place] [id number] Ga dical [address] 2022-08-27 2022-08-27 Telephone [facility] 1.2.840.114 1 [id number] Univers 00:00:00 00:00:00 [facility] MULTISPEC 350.1.13.10 it[place] IALTY 4.2.7.2.[place] [id number] [facility] AND [address] [facility] 2022-08-26 2022-08-26 Refill [facility] 1.2.840.114 [id number] Univers 00:00:00 00:00:00 [facility] MULTISPEC 350.1.13.10 [place]TY 4.2.7.2.[place] [id number] [address] [facility] 2022-08-26 2022-08-26 Patient [facility] 1.2.840.114 [id number] Univers 00:00:00 00:00:00 Secure Msg Tod A PRIMARY 350.1.13.10 it[place] C[place] 4.2.7.2.[place] [id number] [address] 2022-08-25 2022-08-25 Outpatient R [facility] [id number] Univers 11:15:00 11:55:08 TOD ity of [facility] 2022-08-25 2022-08-25 Office [facility] 1.2.840.114 [id number] Univers 11:15:00 11:55:08 Visit Tod A PRIMARY 350.1.13.10 it[place] of C[place] 4.2.7.2.[place] [id number] Ga dictn [address] [place] 2022-08-25 2022-08-25 Orders Doctor PERI 1.2.840.114 [id number] Univers 00:00:00 00:00:00 Only Unassigned, NAVI 350.1.13.10 ity of [facility] [place] [facility] 4.2.7.2.686 Arie as [id number] [facility] [address] 2022-08-23 2022-08-23 Outpatient R KARUNA [facility] [id number] Univers 13:00:00 13:00:00 CIRO ity of [facility] 2022-08-20 2022-08-20 [facility] 1.2.840.114 [id number] Univers 00:00:00 00:00:00 Ana María MULTISPEC 350.1.13.10 ity of [place]2.7.2.[place] [id number] [address] [facility] 2022-08-09 2022-08-09 [facility] 1.2.840.114 [id number] Univers 00:00:00 00:00:00 Ciro GOMEZPEC 350.1.13.10 ity of IALTY 4.2.7.2.[place] [id number] [address] [facility] 2022-07-27 2022-07-27 [facility] 1.2.840.114 [id number] Univers 00:00:00 00:00:00 Tod A PRIMARY 350.1.13.10 it[place] of C[place] 4.2.7.2.[place] [id number] Ga dictn [address] 2022-07-23 2022-07-23 [facility] 1.2.840.114 [id number] Univers 00:00:00 00:00:00 Ciro GOMEZPEC 350.1.13.10 ity of IALTY 4.2.7.2.686 [facility] [id number] [address] [facility] 2022-07-16 2022-07-16 [facility] 1.2.840.114 [id number] Univers 00:00:00 00:00:00 Tod A PRIMARY 350.1.13.10 it[place] of CARE 4.2.7.2.[place] [id number] Ga dical [address] 2022-07-08 2022-07-08 [facility] 1.2.840.114 [id number] Univers 00:00:00 00:00:00 Tod A PRIMARY 350.1.13.10 [place] of C[place] 4.2.7.2.[place] 565.2073955 Ga dical [address] 2022-07-06 2022-07-06 [facility] 1.2.840.114 [id number] Univers 00:00:00 00:00:00 Tod A PRIMARY 350.1.13.10 ity of CARE 4.2.7.2.[place] [id number] Ga dical [address] 2022-07-06 2022-07-06 [facility] 1.2.840.114 [id number] Univers 00:00:00 00:00:00 Tod A PRIMARY 350.1.13.10 ity of CARE 4.2.7.2.[place] [id number] Ga dical [address] 2022-06-25 2022-06-25 [facility] 1.2.840.114 [id number] Univers 00:00:00 00:00:00 Tod A PRIMARY 350.1.13.10 ity of CARE 4.2.7.2.[place] [id number] Ga dical [address] 2022-06-25 2022-06-25 [facility] 1.2.840.114 [id number] Univers 00:00:00 00:00:00 Tod A PRIMARY 350.1.13.10 ity of CARE 4.2.7.2.[place] [id number] Ga dical [address] 2022-06-18 2022-06-18 [facility] 1.2.840.114 [id number] Univers 00:00:00 00:00:00 James Lujan MULTISPEC 350.1.13.10 ity [place] I[place] 4.2.7.2.[place] [id number] [facility] [address] [facility] 2022-06-11 2022-06-11 [facility] 1.2.840.114 [id number] Univers 00:00:00 00:00:00 [facility] 350.1.13.10 ity of IALTY 4.2.7.2.686 [facility] [place] [id number] [address] [facility] 2022-06-01 2022-06-01 [facility] 1.2.840.114 [id number] Univers 00:00:00 00:00:00 [facility] 350.1.13.10 ity of IALTY 4.2.7.2.686 [facility] [id number] [address] [facility]ES [facility]IC 2022-05-27 2022-05-27 [facility] 1.2.840.114 [id number] Univers 00:00:00 00:00:00 [facility] 350.1.13.10 ity of IALTY 4.2.7.2.686 [facility] [id number] [address] [facility] 2022-05-20 2022-05-20 Orders Doctor PERI 1.2.840.114 [id number] Univers 00:00:00 00:00:00 Only Unassigned, NAVI 350.1.13.10 [facility] 4.2.7.2.686 [facility] [id number] [place] [address] [address] 2022-05-17 2022-05-17 Outpatient R AISHA, [facility] [id number] Univers 13:00:00 13:00:00 JONNY ity of [facility] 2022-05-08 2022-05-08 [facility] 1.2.840.114 [id number] Univers 00:00:00 00:00:00 Tod A PRIMARY 350.1.13.10 ity of CARE 4.2.7.2.686 [facility] [phone] [address] 2022-04-30 2022-04-30 [facility] 1.2.840.114 [id number] Univers 00:00:00 00:00:00 Tod A PRIMARY 350.1.13.10 [place] 4[place]7.2.686 [place] [id number] [place] [address] 2022-04-28 2022-04-28 [facility] 1.2.840.114 [id number] Univers 00:00:00 00:00:00 Tod A PRIMARY 350.1.13.10 [place] 4[place]7.2.[place] [id number] [place] [address] 2022-04-28 2022-04-28 [facility] 1.2.840.114 [id number] Univers 00:00:00 00:00:00 [facility] 350.1.13.10 [place] [id number] [address] [facility] 2022-04-19 2022-04-19 [facility] R [facility] [id number] Univers 11:00:00 11:54:55 [facility] ity [facility] 2022-04-19 2022-04-19 [facility] 1.2.840.114 [id number] Univers 11:00:00 11:54:[address] [facility] 350.1.13.10 [place] [phone] [address] [facility] 2022-04-15 2022-04-15 [facility] 1.2.840.114 [id number] Univers 00:00:00 00:00:00 Tod A PRIMARY 350.1.13.10 [place] [id number] Ga dical [address] 2022-04-14 2022-04-14 [facility] 1.2.840.114 [id number] [id number] Univers 00:00:00 00:00:00 [facility] 350.1.13.10 [place] [id number] [facility] AND [place] [address] [facility] 2022-03-26 2022-03-26 [facility] 1.2.840.114 [id number] [id number] Univers 00:00:00 00:00:00 [facility] 350.1.13.10 [place] [id number] [facility] [address] [facility] 2022-03-16 2022-03-16 Outpatient R KARUNA [facility] 1039 [id number] Univers 11:00:00 11:00:00 [facility] 2022-03-16 2022-03-16 Outpatient [facility] 1039 [id number] Univers 11:00:00 11:00:00 [facility] 2022-03-11 2022-03-11 RefRoseanna Casanova [facility] 1.2.949.157 [id number] [id number] Univers 00:00:00 00:00:00 Mesfin CARDOZA 350.1.13.10 i ty of [place] [phone] Ga dical [facility] 134 [facility] 2022-03-11 2022-03-11 [facility] 1.2.871.025 [id number] [id number] Univers 00:00:00 00:00:00 Jonny CARDOZA 350.1.13.10 i ty of [place] [phone] Ga dical NAL 134 [facility] 2022-03-11 2022-03-11 [facility] 1.2.840.114 [id number] 264 Univers 00:00:00 00:00:00 Tod A PRIMARY 350.1.13.10 [place] [id number] [address] 2022-03-11 2022-03-11 Rowena [facility] 1.2.840.114 [id number] [id number] Univers 00:00:00 00:00:00 Tod A PRIMARY 350.1.13.10 it[place] [phone] Ga dical [address] 2022-03-10 2022-03-10 Outpatient R [facility] [id number] Univers 11:15:00 11:42:40 TOD ity of [facility] 2022-03-10 2022-03-10 Office [facility] 1.2.840.114 [id number] 917 Univers 11:15:00 11:42:40 Visit Tod A PRIMARY 350.1.13.10 it[place] [id number] Ga dical [address] 2022-03-03 2022-03-03 [facility] 1.2.521.559 [id number] [id number] Univers 00:00:00 00:00:00 Jonny CARDOZA 350.1.13.10 i ty of [place].2.[place] [phone] Ga dical NAL [address] BUILDING 2022-02-26 2022-02-26 Telephone [facility] 1.2.840.114 [id number] [id number] Univers 00:00:00 00:00:00 Tod A PRIMARY 350.1.13.10 it[place] C[place] [id number] Ga dical [address] 2022-02-24 2022-02-24 [facility] 1.2.840.114 [id number] [id number] Univers 00:00:00 00:00:00 Ciro MULTISPEC 350.1.13.10 it[place] [id number] [facility] AND [address] [facility]ETES [facility]IC 2022-02-13 2022-02-13 [facility] 1.2.840.114 [id number] 774 Univers 00:00:00 00:00:00 Tod A PRIMARY 350.1.13.10 it[place].2.[place] 580.5137354 Ga dical [address] 2022-02-05 2022-02-05 [facility] 1.2.840.114 75903 626 Univers 00:00:00 00:00:00 Tod A PRIMARY 350.1.13.10 it[place] 4.2.[place] [id number] Ga dical [address] 2022-02-04 2022-02-04 [facility] Claud[facility]ilanMEMORIAL [facility] 1.2.840.114 42422 613 Univers 00:00:00 00:00:00 Tod A PRIMARY 350.1.13.10 it[place] C[place] 4.2.[place] [phone] Ga dical [address] 2022-02-04 2022-02-04 [facility] 1.2.840.114 [id number] 766 Univers 00:00:00 00:00:00 Tod A PRIMARY 350.1.13.10 it[place] C[place] 4.2.[place] 261.0448031 Ga dical [address] 2022-01-30 2022-01-30 [facility] 1.2.840.114 22204 998 Univers 00:00:00 00:00:00 Tod A PRIMARY 350.1.13.10 it[place]2.[place] 461.6021421 Ga dical [address] 2022-01-28 2022-01-28 [facility] 1.2.840.114 72000 997 Univers 00:00:00 00:00:00 Tod A PRIMARY 350.1.13.10 [place] 4.2.[place].2.[place] [id number] Ga dical [address] 2022-01-26 2022-01-26 Refill Doctor [facility] 1.2.840.114 [id number] Univers 00:00:00 00:00:00 Unassigned, MULTISPEC 350.1.13.10 ity of [place] IALTY 4.2.7.2.686 [facility] [id number] [facility] AND [address] DIAB[facility]ES [facility]INIC 2022-01-25 2022-01-25 [facility] Roshnie, [facility] 1.2.840.114 [id number] 832 Univers 00:00:00 00:00:00 Tod A PRIMARY 350.1.13.10 [place] [id number] Ga dical [address] 2022-01-25 2022-01-25 [facility] Dojorytra, [facility] 1.2.840.114 [id number] [id number] Univers 00:00:00 00:00:00 [facility] 350.1.13.10 ity of IALTY 4.2.7.2.686 [facility] [id number] [address] DIABETES CLINIC 2022-01-07 2022-01-07 [facility] DoulatramMEM[facility]IAL [facility] 1.2.840.114 946 [id number] Univers 00:00:00 00:00:00 [facility] 350.1.13.10 ity of IALTY 4.2.7.2.686 [facility] [id number] [address] DIABETES CLINIC 2022-01-07 2022-01-07 [facility] 1.2.840.114 946 [id number] Univers 00:00:00 00:00:00 [facility] 350.1.13.10 ity of IALTY 4.2.7.2.686 [facility] [phone] [address] DIABETES CLINIC 2022-01-07 2022-01-07 [facility] [place], [facility] 1.2.840.114 [id number] 053 Univers 00:00:00 00:00:00 Tod A PRIMARY 350.1.13.10 it[place] C[place] [id number] Ga dical [address] 2022-01-07 2022-01-07 Refill [place], [facility] 1.2.840.114 55702 042 Univers 00:00:00 00:00:00 Tod A PRIMARY 350.1.13.10 it[place] C[place].2.[place] 132.8085255 Ga dical [address] 2022-01-05 2022-01-05 [facility] 1.2.840.114 07664 850 Univers 00:00:00 00:00:00 Tod Noyola PRIMARY 350.1.13.10 it[place] of C[place] 4.2.7.2.[place] 217.3749052 Ga dical [address] 2022-01-04 2022-01-04 [facility] Pcp-Lab [facility] 1.2.840.114 [id number] [id number] Univers 12:00:00 12:15:00 Visit Tod Townsend PRIMARY 350.1.13.10 it[place] of C[place] 4.2.[place].2.[place] 154.2870644 Ga dical [address] 2022-01-04 2022-01-04 Outpatient Caitie TOWNSEND [facility] [id number] Univers 12:00:00 12:00:00 TOD [facility] 2022-01-04 2022-01-04 Office [facility] 1.2.840.114 [id number] [id number] Univers 11:15:00 11:45:00 Visit Tod Noyola PRIMARY 350.1.13.10 it[place] C[place].2.[place] [phone] [facility] [address] 2022-01-04 2022-01-04 Outpatient Caitie TOWNSEND [facility] [id number] Univers 11:15:00 11:15:00 TOD [facility] 2022-01-04 2022-01-04 Outpatient Caitie [facility] [id number] Univers 11:15:00 11:15:00 TOD [facility] 2021-12-25 2021-12-25 [facility] 1.2.840.114 [id number] Univers 00:00:00 00:00:00 Ciro GOMEZPEC 350.1.13.10 it[place].2.[place] [id number] [address] DIABETES CLINIC 2021-12-21 2021-12-21 [facility] 1.2.840.114 95639 518 Univers 00:00:00 00:00:00 Tod A PRIMARY 350.1.13.10 it[place] of C[place].2.[place].2.[place] 611.6034514 Ga dical [address] 2021-12-21 2021-12-21 [facility] 1.2.840.114 54205 245 Univers 00:00:00 00:00:00 Tod A PRIMARY 350.1.13.10 it[place] C[place] 4.2.[place].2.[place] 439.7289839 Ga dical [address] 2021-12-14 2021-12-14 [facility] 1.2.538.569 6013 0288 Univers 00:00:00 00:00:00 Jonny CARDOZA 350.1.13.10 i ty of [place].2.[place] [phone] Ga dical NAL 134 [facility] 2021-12-03 2021-12-03 Karen [facility] 1.2.840.114 [id number] [id number] Univers 00:00:00 00:00:00 Ciro MULTISPEC 350.1.13.10 it[place].2.[place].2.[place] [id number] [address] [facility]ES CLINIC 2021-11-26 2021-11-26 Karen [facility] 1.2.840.114 936 [id number] Univers 00:00:00 00:00:00 Ciro MULTISPEC 350.1.13.10 it[place].2.[place].2.[place] [id number] [address] [facility]ETES [facility]IN[facility] 2021-11-13 2021-11-13 [facility] 1.2.840.114 26078 840 Univers 00:00:00 00:00:00 Tod A PRIMARY 350.1.13.10 it[place] C[place] 4.2.7.2.[place] 742.8555903 Ga dical [address] 2021-11-13 2021-11-13 Karen Townsend ALDARIO 1.2.840.114 82089 964 Univers 00:00:00 00:00:00 Tod A PRIMARY 350.1.13.10 [place] C[place].2.[place] [id number] [facility] [address] 2021-11-12 2021-11-12 Orders Doctor PERI 1.2.840.114 [id number] Univers 00:00:00 00:00:00 Only Unassigned, NAVI 350.1.13.10 [facility] 4.2.7.2.686 Arie as [id number] [facility] [address] 2021-11-09 2021-11-09 Outpatient Caitie BECKMAN [facility] [id number] [id number] Univers 11:00:00 11:58:28 [facility] 2021-11-09 2021-11-09 Office [facility] 1.2.840.114 919 [id number] Univers 11:00:00 11:58:28 Visit [facility] JULIAN 350.1.13.10 it[place] of [place].2.[place] [id number] [facility] [address] DIABETES CLINIC 2021-11-09 2021-11-09 Outpatient Caitie BECKMAN [facility] [id number] [id number] Univers 11:00:00 11:58:28 [facility] 2021-10-27 2021-10-27 Refhenrik BeckmanMEMORIAL MEDICAL [facility] 1.2.840.114 [id number] [id number] Univers 00:00:00 00:00:00 [facility] JULIAN 350.1.13.10 it[place] [id number] [facility] AND [place] [address] DI[facility]ES CLINIC 2021-10-15 2021-10-15 Outpatient Caitie BECKMAN [facility] [id number] Univers 09:00:00 09:00:00 CIRO ity of [facility] 2021-10-13 2021-10-13 [facility] 1.2.840.114 [id number] [id number] Univers 00:00:00 00:00:00 Ciro MULTISPEC 350.1.13.10 it[place] [id number] [address] DIABETES [facility]INIC 2021-10-13 2021-10-13 [facility] 1.2.840.114 [id number] 865 Univers 00:00:00 00:00:00 Tod A PRIMARY 350.1.13.10 it[place] of C[place]2.7.2.[place] 999.2658455 Ga dical [address] 2021-10-13 2021-10-13 [facility] 1.2.840.114 87875 935 Univers 00:00:00 00:00:00 Tod A PRIMARY 350.1.13.10 ity of C[place] 4.2.7.2.[place] 511.0589973 Ga dical [address] 2021-10-12 2021-10-12 [facility] 1.2.840.114 [id number] Univers 00:00:00 00:00:00 Tod A PRIMARY 350.1.13.10 it[place] of C[place] 4.2.7.2.[place] 891.0830143 Ga dical [address] 2021-10-03 2021-10-03 [facility] 1.2.840.114 [id number] Univers 00:00:00 00:00:00 Tod A PRIMARY 350.1.13.10 it[place] of C[place]2.7.2.[place] 264.1528817 Ga dical [address] 2021-10-03 2021-10-03 [facility] 1.2.840.114 [id number] Univers 00:00:00 00:00:00 Tod A PRIMARY 350.1.13.10 it[place] of C[place].2.7.2.[place] 861.8849159 Ga dical [address] 2021-09-29 2021-09-29 Patient [facility] 1.2.840.114 [id number] [id number] Univers 00:00:00 00:00:00 Secure Msg Ciro MULTISPEC 350.1.13.10 it[place] of [place].2.[place].2.[place] [id number] [facility] AND [address] DIABETES CLINIC 2021-09-29 2021-09-29 Telephone [facility] 1.2.840.114 [id number] Univers 00:00:00 00:00:00 [facility] MULTISPEC 350.1.13.10 [place]2.[place] [id number] [address] DIABETES CLINIC 2021-09-29 2021-09-29 Telephone [facility] 1.2.840.114 [id number] Univers 00:00:00 00:00:00 [facility] MULTISPEC 350.1.13.10 [place] [id number] [address] DIABETES [facility]INIC 2021-09-28 2021-09-28 Outpatient R [facility] [id number] Univers 09:00:00 09:00:00 ity of [facility] 2021-09-28 2021-09-28 Refhenrik [facility]MEM[facility] 1.2.840.114 [id number] [id number] Univers 00:00:00 00:00:00 [facility] 350.1.13.10 ity of IALTY 4.2.7.2.686 [facility] [id number] [address] DIABETES CLINIC 2021-09-28 2021-09-28 Refhenrik Townsend [facility] 1.2.840.114 [id number] [id number] Univers 00:00:00 00:00:00 Tod A PRIMARY 350.1.13.10 [place].2.7.2.[place] [id number] Ga dical [address] 2021-09-28 2021-09-28 Refhenrik [facility]IAL [facility] 1.2.840.114 [id number] Univers 00:00:00 00:00:00 Elvis PRIMARY 350.1.13.10 it y of C[place] 4.2.7.2.[place] 966.2237475 Ga dical [address] 2021-09-25 2021-09-25 Patient [facility] 1.2.840.114 [id number] [id number] Univers 00:00:00 00:00:00 Secure Msg [facility] MULTISPEC 350.1.13.10 it[place] 4.2.7.2.[place] [id number] [facility] AND [place] [address] [facility] 2021-09-21 2021-09-21 Refhenrik [facility]sendMEM[facility]IAL [facility] 1.2.840.114 [id number] [id number] Univers 00:00:00 00:00:00 Tod A PRIMARY 350.1.13.10 [place]2.7.2.[place] 319.6367101 Ga dical [address] 2021-09-02 2021-09-02 Telephone [facility] 1.2.840.114 [id number] [id number] Univers 00:00:00 00:00:00 Tod A PRIMARY 350.1.13.10 [place] 459.5452920 Ga dical [address] 2021-09-02 2021-09-02 Telephone [facility] 1.2.840.114 [id number] Univers 00:00:00 00:00:00 [facility] MULTISPEC 350.1.13.10 [place].2.[place]2.[place] [id number] [facility] AND [place] [address] [facility] 2021-09-01 2021-09-01 Telephone [facility] 1.2.840.114 [id number] Univers 00:00:00 00:00:00 [facility] MULTISPEC 350.1.13.10 [place]2.[place] [id number] [facility] AND [place] [address] [facility] 2021-08-28 2021-08-28 [facility] 1.2.840.114 [id number] [id number] Univers 00:00:00 00:00:00 [facility] 350.1.13.10 ity of [facility] 4.2.7.2.686 [facility] [phone] [facility] [address] [facility] 2021-08-20 2021-08-20 Outpatient Caitie [facility] 1036 [id number] Univers 13:00:00 13:00:00 [facility] 2021-08-19 2021-08-19 [facility] 1.2.840.114 [id number] Univers 00:00:00 00:00:00 Tod A PRIMARY 350.1.13.10 ity of CARE 4.2.7.2.686 [facility] [id number] Ga dical [address] 2021-08-19 2021-08-19 [facility] 1.2.840.114 [id number] [id number] Univers 00:00:00 00:00:00 Tod A PRIMARY 350.1.13.10 ity of CARE 4.2.7.2.686 [facility] 282.7241864 Ga dical [address] 2021-08-11 2021-08-11 [facility] 1.2.840.114 [id number] Univers 14:34:23 23:59:00 Encounter Jonny CARDOZA 350.1.13.10 ity [facility] 4.2.7.2.686 [facility] [id number] [facility] [address] 2021-08-11 2021-08-11 Outpatient Caitie [facility] 92445 [id number] Univers 14:33:29 14:33:00 JONNY itmike [facility] 2021-08-11 2021-08-11 [facility] 1.2.840.114 [id number] Univers 14:30:00 14:33:00 Encounter Jonny CARDOZA 350.1.13.10 it[place]2.7.2.[place] [id number] [facility] [address] 2021-07-31 2021-07-31 [facility] 1.2.840.114 51356 330 Univers 00:00:00 00:00:00 Tod A PRIMARY 350.1.13.10 [place] 4.2.7.2.[place] 654.6968180 Ga dical [address] 2021-07-30 2021-07-30 Karen [facility] 1.2.840.114 [id number] [id number] Univers 00:00:00 00:00:00 [facility] MULTISPEC 350.1.13.10 ity of I[place] 4.2.7.2.686 [place] [id number] [facility] AND [place] [address] [facility] 2021-07-27 2021-07-27 [facility] 1.2.840.114 [id number] 078 Univers 00:00:00 00:00:00 Tod A PRIMARY 350.1.13.10 [place].2.[place].2.[place] 506.7221833 Ga dictn [address] 2021-07-06 2021-07-06 Outpatient Caitie BECKMAN [facility] [id number] Univers 09:00:00 09:00:00 [facility] 2021-07-06 2021-07-06 Outpatient Caitie BECKMAN [facility] [id number] Univers 09:00:00 09:00:00 [facility] 2021-07-06 2021-07-06 Outpatient Caitie BECKMAN [facility] [id number] [id number] Univers 09:00:00 09:00:00 [facility] 2021-07-06 2021-07-06 Outpatient Caitie BECKMAN [facility] [id number] [id number] Univers 09:00:00 09:00:00 [facility] 2021-07-06 2021-07-06 Telephone Karuna [facility] 1.2.840.114 [id number] Univers 00:00:00 00:00:00 [facility] MULTISPEC 350.1.13.10 [place]2.[place].2.[place] [id number] [facility] [address] [facility] 2021-07-01 2021-07-01 [employer] [employer] Pcp-Lab [facility] 1.2.840.114 [id number] Univers 14:30:00 14:45:00 Visit Tod Townsend PRIMARY 350.1.13.10 it[place].2.[place] 474.0183800 Ga dical [address] 2021-07-01 2021-07-01 Outpatient Caitie ROSHNICharlieSELECT [facility] [id number] Univers 14:30:00 14:30:00 TOD [facility] 2021-07-01 2021-07-01 Office [facility] 1.2.840.114 [id number] Univers 11:15:00 11:54:09 Visit Tod Noyola PRIMARY 350.1.13.10 [place] 607.2195400 [facility] [address] 2021-07-01 2021-07-01 Outpatient Caitie CLAUDYMILAN [facility] [id number] Univers 11:15:00 11:54:09 TOD [facility] 2021-07-01 2021-07-01 Outpatient Caitie TOWNSEND [facility] [id number] Univers 11:15:00 11:54:[address] [facility] 2021-07-01 2021-07-01 Outpatient Caitie SKELTONCharlie [facility] [id number] Univers 11:15:00 11:15:[address] [facility] 2021-06-30 2021-06-30 Telephone Karuna [facility] 1.2.840.114 [id number] Univers 00:00:00 00:00:00 Ciro MULTISPEC 350.1.13.10 [place] [id number] [address] [facility] 2021-06-29 2021-06-29 Outpatient R LUIS ALFREDO [facility] [id number] Univers 13:00:00 13:00:00 USMAN medina [facility] 2021-06-26 2021-06-26 Outpatient R LUIS ALFREDO [facility] [id number] Univers 11:30:00 12:32:48 USMAN medina [facility] 2021-06-26 2021-06-26 Office Luis [facility] 1.2.840.114 [id number] Univers 11:30:00 12:32:48 Visit Usman Pearson MULTISPEC 350.1.13.10 ity of IALTY 4.2.7.2.686 [facility] [place] [id number] [address] [facility]ETES [facility] 2021-06-26 2021-06-26 Outpatient R LUIS ALFREDO [facility] [id number] Univers 11:30:00 12:32:48 USMAN medina [facility] 2021-06-26 2021-06-26 Outpatient R LUIS ALFREDO [facility] [id number] Univers 11:30:00 12:32:48 USMAN echevarria [facility] 2021-06-09 2021-06-09 Telephone [facility] 1.2.840.114 [id number] Univers 00:00:00 00:00:00 Ciro GOMEZPEC 350.1.13.10 ity of IALTY 4.2.7.2.686 [facility] [place] [id number] [address] [facility] 2021-06-08 2021-06-08 Karen [facility] 1.2.840.114 [id number] Univers 00:00:00 00:00:00 Ezequiel MULTISPEC 350.1.13.10 ity of IALTY 4.2.7.2.686 [facility] [place] [id number] [address] [facility] 2021-06-08 2021-06-08 Karen [facility] 1.2.255.971 [id number] Univers 00:00:00 00:00:00 Jonny CARDOZA 350.1.13.10 i ty of [facility] 4.2.7.2.[place] [id number] Ga dical NAL 134 [facility] 2021-05-29 2021-05-29 [facility] 1.2.840.114 [id number] Univers 00:00:00 00:00:00 Tod A PRIMARY 350.1.13.10 it[place].2.[place] 763.0154215 Ga dical [address] 2021-05-25 2021-05-25 Case [facility] 1.2.689.464 [id number] Univers 00:00:00 00:00:00 Management Jonny CARDOZA 350.1.13.10 ity of [facility] 4.2.7.[place] [phone] [facility] NAL [address] [place] [address] 2021-05-25 2021-05-25 [facility] 1.2.840.114 [id number] Univers 00:00:00 00:00:00 Tod A PRIMARY 350.1.13.10 [place] [id number] [facility] [address] 2021-05-21 2021-05-21 Out[facility] [id number] Univers 11:15:00 11:15:00 TOD ity of [facility] 2021-05-21 2021-05-21 [facility] 1.2.234.143 [id number] Univers 00:00:00 00:00:00 Secure Msg Jonny CARDOZA 350.1.13.10 ity [facility] 4[place] [phone] [place] dictn NAL [address] [facility] 2021-05-19 2021-05-19 [facility] 1.2.840.114 [id number] Univers 00:00:00 00:00:00 Tod A PRIMARY 350.1.13.10 [place] [id number] [place] [address] 2021-05-13 2021-05-13 [facility] 1.2.025.192 [id number] Univers 13:16:34 14:47:42 Visit Jonny NANI 350.1.13.10 i ty [facility] 4[place]2.[place] [phone] [place]ical NAL [address] [facility] 2021-05-13 2021-05-13 Outpatient R AISHA [facility] [id number] Univers 13:00:00 14:47:42 JONNY [facility] 2021-05-13 2021-05-13 Outpatient Caitie LEONARD [facility] [id number] Univers 13:00:00 14:47:42 [facility] 2021-05-13 2021-05-13 Outpatient R AISHA [facility] [id number] Univers 13:00:00 14:47:42 [facility] 2021-05-13 2021-05-13 Outpatient R AISHA [facility] [id number] Univers 13:00:00 13:00:00 [facility] 2021-05-13 2021-05-13 Outpatient R AISHA [facility] [id number] Univers 13:00:00 13:00:00 [facility] 2021-05-13 2021-05-13 Orders Doctor PERI 1.2.840.114 [id number] Univers 00:00:00 00:00:00 Only Unassigned, NAVI 350.1.13.10 ity of [facility] 4.2.7.2.686 Arie as [phone] [place] [address] [address] 2021-05-12 2021-05-12 Patient Roshnicharlie [facility] 1.2.840.114 [id number] Univers 00:00:00 00:00:00 Secure Msg Tod A PRIMARY 350.1.13.10 [place] [phone] [place] 2021-05-11 2021-05-11 [facility] 1.2.840.114 [id number] Univers 00:00:00 00:00:00 Ciro MULTISPEC 350.1.13.10 [place] [id number] [facility] [address] [facility] 2021-05-08 2021-05-08 Patient [facility] 1.2.840.114 [id number] Univers 00:00:00 00:00:00 Secure Msg Tod A PRIMARY 350.1.13.10 [place] [phone] [place] [address] 2021-04-29 2021-04-29 [facility] 1.2.840.114 [id number] Univers 00:00:00 00:00:00 Tod A PRIMARY 350.1.13.10 [place] [phone] [place] [address] 2021-04-28 2021-04-28 [facility] 1.2.840.114 [id number] Univers 00:00:00 00:00:00 Tod A PRIMARY 350.1.13.10 it[place] [phone] [place] dical [address] 2021-04-28 2021-04-28 Telephone [facility] 1.2.840.114 [id number] Univers 00:00:00 00:00:00 Jonny Cardoza 350.1.13.10 i ty of [place] [phone] Ga dical nal [address] [facility] 2021-04-27 2021-04-27 [facility] 1.2.840.114 [id number] Univers 00:00:00 00:00:00 Tod A PRIMARY 350.1.13.10 it[place] [phone] Ga dical [address] 2021-04-27 2021-04-27 Refill Roshnie, [facility] 1.2.840.114 [id number] Univers 00:00:00 00:00:00 Tod A PRIMARY 350.1.13.10 [place] [facility] [phone] Ga dical [address] 2021-04-27 2021-04-27 Refill Jeff, [facility] 1.2.840.114 [id number] Univers 00:00:00 00:00:00 Ezequiel MULTISPEC 350.1.13.10 it[place] of IALTY [place].2.[place].2.686 [place] [phone] [address] [facility] 2021-04-13 2021-04-13 Refill Dogeri, [facility] 1.2.840.114 [id number] Univers 00:00:00 00:00:00 Ciro MULTISPEC 350.1.13.10 ity of IALTY 4.2.7.2.686 [facility] [place] [phone] [address] [facility] 2021-04-09 2021-04-09 [facility], [facility] 1.2.840.114 [id number] Univers 00:00:00 00:00:00 Ciro MULTISPEC 350.1.13.10 ity of IALTY 4.2.7.2.686 [facility] [phone] [address] [facility] 2021 2021 Refhenrik [facility] 1.2.840.114 [id number] Univers 00:00:00 00:00:00 Ezequiel MULTISPEC 350.1.13.10 [place] [phone] [address] [facility] 2021-03-22 2021-03-22 Refill Dogerim, [facility] 1.2.840.114 [id number] Univers 00:00:00 00:00:00 Ciro MULTISPEC 350.1.13.10 it[place] of [place] [phone] [facility] [place] [address] [facility] 2021-03-19 2021-03-19 Outpatient Caitie BECKMAN [facility] [id number] Univers 13:00:00 13:00:00 CIRO ity of [facility] 2021-03-19 2021-03-19 [facility] 1.2.840.114 [id number] Univers 00:00:00 00:00:00 Secure Msg Dana Estradaton 350.1.13.10 it[place] [phone] Ga dical nal 204 [facility] 2021-03-17 2021-03-17 [facility] 1.2.840.114 [id number] Univers 00:00:00 00:00:00 Secure Msg Tod A PRIMARY 350.1.13.10 it[place] of C[place]2.[place].2.[place] [phone] Ga dical [address] 2021-03-17 2021-03-17 [facility]rik [facility] 1.2.840.114 [id number] Univers 00:00:00 00:00:00 Ciro MULTISPEC 350.1.13.10 it[place] of [place].2.7.2.[place] [phone] [facility] [address] [facility] 2021-03-17 2021-03-17 [facility]rik [facility] 1.2.840.114 [id number] Univers 00:00:00 00:00:00 Ezequiel MULTISPEC 350.1.13.10 it[place] of [place].2.[place].2.[place] C[place] [phone] [facility] [address] [facility] 2021-03-06 2021-03-06 [facility] 1.2.840.114 [id number] Univers 00:00:00 00:00:00 Secure Msg Tod A PRIMARY 350.1.13.10 it[place]2.[place].2.[place] [phone] Ga dical [address] 2021-03-05 2021-03-05 Telemedici [facility] 1.2.840.114 [id number] Univers 13:14:47 13:44:47 ne Visit Pascale Cardoza 350.1.13.10 it[place] of [place]2.7.2.[place] [phone] Ga dical nal 085 [facility] 2021-03-05 2021-03-05 Outpatient R PASCALE PATEL [facility] [id number] Univers 13:00:00 13:00:00 PASCALE PATEL [facility] 2021-03-05 2021-03-05 [facility] 1.2.840.114 [id number] Univers 00:00:00 00:00:00 Secure Msg Tod A PRIMARY 350.1.13.10 it[place]2.[place] [phone] Ga dical [address] 2021-03-05 2021-03-05 Patient [facility] 1.2.840.114 [id number] Univers 00:00:00 00:00:00 Secure Msg Tod A PRIMARY 350.1.13.10 it[place] [phone] Ga dical [address] 2021-03-03 2021-03-03 [facility] 1.2.840.114 [id number] Univers 00:00:00 00:00:00 Secure Msg Tod A PRIMARY 350.1.13.10 it[place]2.[place] [phone] Ga dical [address] [place] 2021-03-02 2021-03-02 Outpatient Caitie GUNTER [facility] [id number] Univers 12:40:00 12:40:00 TONNY menjivar [facility] 2021-03-02 2021-03-02 Outpatient Caitie GUNTER [facility] [id number] Univers 10:50:00 10:50:00 TONNY menjivar [facility] 2021-03-02 2021-03-02 Outpatient Caitie LYRIC [facility] [id number] Univers 10:50:00 10:18:51 TONNY mike [facility] 2021-03-02 2021-03-02 Outpatient Caitie LYRIC [facility] [id number] Univers 10:50:00 10:18:51 TONNY mike [facility] 2021-02-27 2021-02-27 Outpatient Caitie CARY [facility] [id number] Univers 16:15:00 16:15:[address] [facility] 2021-02-27 2021-02-27 Outpatient Caitie CARY [facility] [id number] Univers 16:15:00 16:15:[address] [facility] 2021-02-27 2021-02-27 [facility] [id number] Univers 16:15:00 16:15:[address] [facility] 2021-02-20 2021-02-20 Patient [facility] 1.2.840.114 [id number] 00:00:00 00:00:00 Secure Msg Tod A PRIMARY 350.1.13.10 CARE 4.2.7.2.686 PAVILLION [id number] 390 2021-02-17 2021-02-17 [facility] 1.2.840.114 [id number] 00:00:00 00:00:00 Ciro MULTISPEC 350.1.13.10 IALTY 4.2.7.2.686 [place] [phone] [facility] E[facility]E [facility] 2021-02-16 2021-02-16 Office [facility] 1.2.840.114 [id number] 10:03:54 10:47:58 Visit Tod A PRIMARY 350.1.13.10 CARE 4.2.7.2.686 PAVILLION [id number] 390 2021-02-16 2021-02-16 Outpatient [facility] [id number] Univers 10:15:00 10:15:[address] [facility] 2020-11-11 2020-11-11 Outpatient R HEIDISim [facility] [id number] Univers 15:00:00 16:05:12 CIRO [facility] 2020-11-11 2020-11-11 Outpatient R HEIDISim [facility] [id number] Univers 15:00:00 15:00:00 CIRO [facility] 2020-10-31 2020-10-31 Outpatient R PASCALE PATEL [facility] [id number] Univers 08:30:00 08:30:00 PASCALE PATEL i [facility] 2020-10-23 2020-10-23 Outpatient R AISHA [facility] [id number] Univers 13:45:00 13:45:00 [facility] 2020-10-08 2020-10-08 Outpatient Caitie ROSE [facility] [id number] Univers 15:00:00 15:00:00 [facility] 2020-09-29 2020-09-29 Outpatient Caitie BECKMAN [facility] [id number] Univers 13:00:00 13:00:00 CIRO [facility] 2020-09-25 2020-09-25 Outpatient R AISHA [facility] [id number] Univers 14:00:00 14:00:00 [facility] 2020-09-24 2020-09-24 Outpatient Caitie TOWNSEND [facility] [id number] Univers 15:15:00 15:15:00 TOD [facility] 2020-09-18 2020-09-18 Outpatient Caitie LEONARD [facility] [id number] Univers 14:15:00 14:15:00 [facility] 2020-09-11 2020-09-11 Outpatient Caitie MORROW [facility] [id number] Univers 13:00:00 13:00:00 OTIS [facility] 2020-09-03 2020-09-03 Outpatient Caitie ROSE [facility] [id number] Univers 13:00:00 13:00:00 [facility] 2020-08-21 2020-08-21 Outpatient R AISHA, [facility] [id number] Univers 14:00:00 14:00:00 JONNY menjivar [facility] 2020-08-20 2020-08-20 Outpatient R MITLON, [facility] [id number] Univers 13:15:00 13:15:00 [facility] 2020-08-15 2020-08-15 Outpatient Caitie MOONEY, [facility] [id number] Univers 11:40:00 14:50:31 INGE [facility] 2020-08-15 2020-08-15 Outpatient Caitie MOONEY, [facility] [id number] Univers 11:40:00 11:40:00 INGE [facility] 2020-08-08 2020-08-08 Outpatient Caitie ORTA, [facility] [id number] Univers 09:30:00 09:30:00 [facility] 2020-08-05 2020-08-05 Outpatient Caitie ORTA, [facility] [id number] Univers 10:00:00 10:00:00 [facility] 2020-07-31 2020-07-31 Outpatient Caitie LOBATO [facility] [id number] Univers 11:00:00 11:00:00 USMAN ity o f [facility] 2020-07-30 2020-07-30 Outpatient Caitie ORTA, [facility] [id number] Univers 11:00:00 11:00:00 [facility] 2020-07-29 2020-07-29 Outpatient Caitie ORTA, [facility] [id number] Univers 11:00:00 11:00:00 DANA [facility] 2020-07-23 2020-07-23 Outpatient Caitie ROSE, [facility] [id number] Univers 15:30:00 15:30:00 [facility] 2020-07-23 2020-07-23 Outpatient Caitie KENYON, [facility] [id number] Univers 13:00:00 13:00:00 EZEQUIEL [facility] 2020-07-18 2020-07-18 Outpatient R VINICIO [facility] [id number] Univers 11:00:00 11:00:00 INGE ity [facility] 2020-07-17 2020-07-17 Outpatient R GERTRUDE EASTNDAndrew [facility] [id number] Univers 12:00:00 12:00:00 ROJELIO EAST ity [facility] 2020-07-15 2020-07-15 Outpatient R [facility] [id number] Univers 13:30:00 13:30:00 ity [facility] 2020-07-15 2020-07-15 Outpatient R [facility] [id number] Univers 11:30:00 11:30:00 ity [facility] 2020-07-14 2020-07-14 Outpatient R KARUNA, [facility] [id number] Univers 09:00:00 09:00:00 CIRO [facility] 2020-07-09 2020-07-09 [facility] [id number] Univers 14:06:30 14:06:30 BILAL ity [facility] 2020-06-30 2020-06-30 Outpatient R KATIANA MOY [facility] [id number] Univers 14:30:00 14:30:00 ity [facility] 2020-06-26 2020-06-26 Outpatient R PASCALE PATEL [facility] [id number] Univers 13:20:00 13:20:00 PASCALE PATEL i ty [facility] 2020-06-11 2020-06-11 Outpatient R CRUZITORCAndrew [facility] [id number] Univers 16:00:00 16:00:00 AXELROJELIO CHICAS ity [facility] 2020-06-10 2020-06-10 Outpatient R MILTON [facility] [id number] Univers 09:45:00 09:45:00 BILAL ity [facility] 2020-06-04 2020-06-04 Outpatient R CARY [facility] [id number] Univers 16:15:00 16:15:00 [facility] 2020-05-29 2020-05-29 Outpatient R KARUNA [facility] [id number] Univers 13:00:00 14:29:09 CIRO [facility] 2020-05-28 2020-05-28 Outpatient R MILTON [facility] [id number] Univers 00:00:00 00:00:00 JOS [facility] 2020-05-23 2020-05-23 Outpatient R CARY [facility] [id number] Univers 15:45:00 15:45:00 TOD [facility] 2020-05-15 2020-05-15 [facility] [id number] Univers 12:00:00 12:00:00 GERTRUDE EASTNDAndrew [facility] 2020-05-13 2020-05-13 Outpatient R AISHA [facility] [id number] Univers 13:00:00 14:17:14 JONNY [facility] 2020-05-09 2020-05-09 Outpatient R CARY [facility] [id number] Univers 13:15:00 13:15:00 TOD [facility] 2020-04-30 2020-04-30 Outpatient R GERTRUDE EASTNDAndrew [facility] [id number] Univers 16:00:00 16:00:00 GERTRUDE EASTNDAndrew [facility] 2020-04-21 2020-04-21 Outpatient R [facility] [id number] Univers 09:00:00 09:00:00 [facility] 2020-04-16 2020-04-16 Outpatient R MILTON [facility] [id number] Univers 15:15:00 15:15:00 JOS [facility] 2020-04-08 2020-04-08 Outpatient R KARUNA [facility] [id number] Univers 11:00:00 11:00:00 CIRO [facility] 2020-04-04 2020-04-04 Outpatient R JONATHAN CLAUS [facility] [id number] Univers 13:30:00 13:30:00 CLAUS CASTILLO [facility] 2020-04-01 2020-04-01 Outpatient R BRENDEN, [facility] [id number] Univers 11:10:00 11:10:00 [facility] 2020-03-14 2020-03-14 Outpatient Caitie LOCOLOVELYCharlie [facility] [id number] Univers 14:15:00 14:15:00 TOD [facility] 2020-03-10 2020-03-10 Outpatient Caitie TOWNSEND [facility] [id number] Univers 10:45:00 10:45:00 TOD [facility] 2020-02-12 2020-02-12 Outpatient R CLAUS CASTILLO [facility] [id number] Univers 13:00:00 13:00:00 JONATHAN CLAUS [facility] 2020-02-11 2020-02-11 Outpatient R HEIDISim [facility] [id number] Univers 15:00:00 15:00:00 [facility] 2020-01-10 2020-01-10 Outpatient Caitie ROSE [facility] [id number] Univers 09:30:00 09:30:00 [facility] 2020-01-01 2020-01-01 Outpatient Caitie MILTON [facility] [id number] Univers 13:15:00 13:15:00 [facility] 2019-12-17 2019-12-17 Outpatient Caitie BECKMAN [facility] [id number] Univers 15:00:00 15:00:00 [facility] 2019-11-30 2019-11-30 Outpatient R PASCALE PATEL [facility] [id number] Univers 10:55:00 10:55:00 PASCALE PATEL i [facility] 2019-10-29 2019-10-29 Outpatient Caitie TOWNSEND [facility] [id number] Univers 11:15:00 11:15:00 TOD [facility] 2019-09-06 2019-09-08 Inpatient R KAI [facility] [id number] Univers 06:30:00 09:14:00 RADHA [facility] 2019-09-04 2019-09-04 Outpatient [facility] [id number] Univers 00:00:00 00:00:00 ity [facility] 2019-09-04 2019-09-04 Outpatient [facility] [id number] Univers 00:00:00 00:00:00 [facility] 2019-08-27 2019-08-27 Outpatient Caitie BECKMAN, [facility] [id number] Univers 13:00:00 14:04:53 CIRO [facility] 2019-08-06 2019-08-06 Outpatient MHSE BARB [id number] 10:08:00 10:08:00 [facility] 2019-07-27 2019-07-27 Outpatient Caitie QUINN, [facility] [id number] Univers 15:30:00 16:42:02 RADHA [facility] Results Test Description Test Time Test Comments Results Result Comments Source SURGICAL SPECIMENS 2019-02-12 07:36:00 RUN DATE: 02/12/19 [facility] *LIVE* PAGE 1 RUN TIME: 735 Specimen Inquiry RUN USER: INTERFACE PATIENT: HEIDY ROBISON LOC: SRINATH #: [id number] AGE/SX: 63/F ROOM: RE02/08/19SEAN DR: Edward Felder : 53 BED: DIS: STATUS: DEP [facility] TLOC: SPEC #: [id number] RECD: 02/08/19 STATUS: MILAGRO RAMIREZ #: [id number] QUANG: 02/08/19 [facility] DR: Edward Felder MD ENTERED: 02/11/19 SP TYPE: SURG SPEC OTHR DR: Tod Townsend MD ORDERED: LEVEL 4 CODES: [id number] - STOMACH, NOS COPIES TO: Tod Townsend MD [address] [facility] [address] [place] [address] Edward Felder MD [facility] [address] [place] [address] PROCEDURES: LEVEL 4 (Incomplete) TISSUES: 1. STOMACH, [...] CONTINUED ON NEXT PAGE RUN DATE: 02/12/19 [facility] *LIVE* PAGE 2 RUN TIME: 735 Specimen Inquiry RUN USER: INTERFACE SPEC #: [id number] PATIENT: HEIDY ROBISON #[id number] (Continued)--------- --- POST-OP DIAGNOSIS GERD, normal colon [...] mg/dL 8.0-10.5 N - XR CHEST 1 [id number] 06:16:00 FAX: Yadiel Westfall JR, MD [phone] [place]: St: REG FAX: Tod Valles [phone] FAX: Edward Vargas [phone] Name: HEIDY ROBISON [facility] : 1955 Age/S: 63/F [address] [place] [address] Unit #: [id number] Loc: [place] [address] Phys: Yadiel Mendez JR, MD Acct: [id number] Dis Date: Status: REG [facility] PHONE #: [phone] Exam Date: 02/08/2019 06 FAX #: [phone] Reason: PREOP PROTOCOL EXAMS: CPT CODE: [id number] XR CHEST 1 V [id number] EXAM: CR, XR chest one view: 02/08/2019, 0603 hours HISTORY: PREOP PROTOCOL TECHNIQUE: 1 view of the chest. COMPARISON: None available. FINDINGS: Trachea is midline. Heart is normal in size. Pulmonary vascularity is unremarkable. Mild subsegmental atelectasis in the right mid and lower lung There is no pleural effusion or pneumothorax. No significant osseous abnormalities are seen. IMPRESSION: Mild subsegmental atelectasis in the right mid and lower lung . SL: [[id number]] at 0616 Reported and signed by: Reyes Lee M.D. CC: Yadiel Mendez JR, MD; Tod Townsend MD; Edward Felder MD Technologist: Natalie Styles RT(R) Trnscrd Date/Time/By: 02/08/2019 (06) : By: [email or web address] Orig Print D/T: S: 02/08/2019 (06) PAGE 1 Signed ReportBASIC METABOLIC [id number] 14:20:00 Test Item Value Reference Range Interpretation [...] 8.9 mg/dL 8.0-10.5 N CA) CBC W/AUTO [id number] 14:18:00 Test Item Value Reference Range Interpretation [...] DIFF REQUIRED (test code NO = MDIFF) Notes Date/Time Note Provider Source 2023-02-01 Formatting of this note might be differe nt from the original. Eden Salazar MA [facility] 08:06:39-00:00 Routing for approval/denial 2023-01-31 Formatting of this note might be differe nt from the original. Faith Maya LVN [facility] 15:42:52-00:00 Placed letter in mail out iwona x and notified pt, she verbalized understanding Electronically signed by Faith Maya LVN at 0 01/31/2023 3:43 PM CDT 2023-01-31 Formatting of this note might be differe nt from the original. 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 [facility] [address] Electronically signed by Hoa Calix at 12:35 PM CDT 2023-01-26 Formatting of this note might be differe nt from the original. Faith Maya NUTTER UP [facility] 16:03:33-00:00 Letter complete and placed into PCP box Electronically signed by Faith Maya LVN at 0 01/26/2023 4:04 PM CDT 2023-01-26 [facility] 12:48:59-00:00 Routing to PCP for assistance Electronically signed by Faith Maya LVN at 0 01/26/2023 12:49 PM CDT 2023-01-24 Formatting of this note might be differe nt from the original. 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 Patient also stating she sub mitted another request last week and last month, she would like to know status. Please advise [phone] (home) Electronically signed by Heidy Monsalve at 3:14 PM CDT 2023-01-22 Formatting of this note might be differe nt from the original. Manohar Rodarte [facility] 18:53:04-00:00 Heidy Robison is a 67 year old female Pt called requesting to have medication sent to [facility] in [place]. Please advise. cycloSPORINE (RESTASIS) 0.05 % drops [Tod Townsend] [facility]/pharmacy #[id number] - [place], [place] - [facility] [address] [facility] [address] [facility] [address] Electronically signed by Manohar Rodarte I at 6:54 PM CDT 2023-01-19 Formatting of this note might be differe nt from the original. Nicholas Ely [facility] 08:57:00-00:00 Returned call to patient. Pt stated she spoke with Medicare last night and was told the procedure was called elective and should have deemed "medically necessary". Informed patient pain procedures are e RN lective meaning they are not life or . "This pain could kill me, the pain could get so bad that I could have a heart attack, I had chest pain from being upset all last night, now medicare refuses t o pay so someone needs to go back and put it is medically necessary". Stated her daughter is upset that she had to pay over $1000. Stated she was not called and told she needed to pay that much. Informe d patient that [facility] policy h as changed this year and requires all procedures to have patient portion paid up front. "I dont care what [facility] decides on their part, [place] needs to make it medically nec essary". She also spoke to rina palmer and was told that was our clinic she needed to speak with. Clarified no procedure was d ocumented that did not happen, stated she was confused after sedation. Also confirmed it was medication not covered just the procedure. 2023-01-18 [facility] 18:02:02-00:00 I dont have control over pay ment- can someone from billing talk to patient 2023-01-18 Formatting of this note might be differe nt from the original. Manohar Rodarte [facility] 16:37:48-00:00 Heidy Robison is a 67 year old female Patient states that someone placed a message on [employer] of a service that she did not receive. She also stated that she is suppose to receive a steroid injection at her sacral joint but this was deemed "non medical necessity" and this should be consi dered from medicare. She states her daughter had to pay for the injection and she is upset that her medication is not covered. She is upset and I had my lead Breezy Timmons Speak t o her. Patient refused to speak to Patient Services. Tried to get in contact with office but no answe r. Please call pt [facility]. [phone] (home) Electronically signed by Manohar Rodarte I at 4:45 PM CDT 2019-02-08 [id number] [facility] 07:09:00-00:[address] [place] [id number] PATIENT NAME: HEIDY ROBISON ADMIT DATE: ACCOUNT NO: [id number] ROOM NO: AGE: 63 REPORT TYPE: ENDOSCOPY REPORT SEX: F ADMITTING PHYSICIAN: ATTENDING PHYSICIAN:Edward Felder MD Gastroenterology Patient Name: Heidy Robison Procedure Date: 2018 7:09 AM Date of : 1955 Procedure: Colonoscopy Indications: Screening in patient at increased r isk: Family history of 1st-degree relative with colorectal cancer Providers: Edward Felder MD Referring MD: Edward Felder MD Requesting Provider: Medicines: See the Anesthesia note for documenta tion of the administered medications Procedure: Pre-Anesthesia Assessment: - Prior to the procedure, a History and Physica l was performed, and patient medications and allergie s were reviewed. The patient is competent. The risks a nd benefits of the procedure and the sedation opti ons and risks were discussed with the patient. All ques tions were answered and informed consent was obtained . Patient identification and proposed procedure were veri fied by the physician, the nurse and the high court justice in the endoscopy suite. Prophylactic Antibiotics: The patient does not require prophylactic antibiotics. Prio r Anticoagulants: The patient has taken no previo us anticoagulant or antiplatelet agents. ASA Grad e Assessment: III - A patient with severe systemi c disease. After reviewing the risks and benefits , the patient was deemed in satisfactory condition to undergo the procedure. The [facility] Immediately prior to administration of medications, the patient was re-assessed for adequacy to receive sedatives. The heart rate, respiratory rate, oxygen saturations, blo od pressure, adequacy of pulmonary ventilation, an d response to care were monitored throughout the procedure. The physical status of the patient w as re-assessed after the procedure. - Prior to the procedure, a History and Physica l was performed, and patient medications and allergie s were reviewed. The patient is competent. The risks a nd PATIENT NAME: HEIDY ROBISON [id number] benefits of the procedure and the sedation opti ons and risks were discussed with the patient. All que stions were answered and informed consent was obtained . Patient identification and proposed procedure were veri fied by the physician, the nurse and the high court justice in the endoscopy suite. Prophylactic Antibiotics: The patient does not require prophylactic antibiotics. Saima or Anticoagulants: The patient has taken no previo us anticoagulant or antiplatelet agents. ASA Grade Assessment: III - A patient with severe systemi c disease. After reviewing the risks and benefits , the patient was deemed in satisfactory condition to undergo the procedure. The anesthesia plan was to use m onitored anesthesia care (MAC). Immediately prior to administration of medications, the patient was re-assessed for adequacy to receive sedatives. The heart rate, respiratory rate, oxygen saturations, blo od pressure, adequacy of pulmonary ventilation, an d response to care were monitored throughout the procedure. The physical status of the patient was re-assessed after the procedure. After I obtained informed consent, the scope wa s passed under direct vision. Throughout the procedure, the patient's blood pressure, pulse, and oxygen sat urations were monitored continuously. The Colonoscope wa s introduced through the anus and advanced to the cecum, identified by appendiceal orifice and ileocecal valve. The colonoscopy was performed without difficul ty. The patient tolerated the procedure well. The quali ty of the bowel preparation was good. Findings: The perianal and digital rectal examinations we re normal. Complications: No immediate complications. Estimated Blood Loss: Estimated blood loss: none. Impression: - No specimens collected. - The entire examined colon is normal. Recommendation: - Discharge patient to home. - Resume previous diet. - Continue present medications. - No recommendation at this time regarding repe at colonoscopy. Procedure Code(s): --- Professional --- G0105, Colorectal cancer screening; colonoscop y on individual at high risk CPT copyright 2017 [employer]. All rights reserved. The codes documented in this report are prelimin lorenza and upon physician coder review may be revised to meet current compliance requiremen ts. PATIENT NAME: HEIDY ROBISON [id number] Edward Felder MD Edward Felder MD 02/08/2019 7:47:01 AM This report has been signed electronically. Number of Addenda: 0 Note Initiated On: 02/08/2019 7:09 AM at 0747 PATIENT NAME: HEIDY ROBISON [id number] 2019-02-08 [id number] [facility] 06:48:00-00:[address] [place] [address] PATIENT NAME: HEIDY ROBISON ADMIT DATE: ACCOUNT NO: [id number] ROOM NO: AGE: 63 REPORT TYPE: ENDOSCOPY REPORT SEX: F ADMITTING PHYSICIAN: ATTENDING PHYSICIAN:Edward Felder MD Gastroenterology Patient Name: Heidy Robison Procedure Date: 2018 6:48 AM Date of : 1955 Procedure: Upper GI endoscopy Indications: Suspected gastro-esophageal reflux disease Providers: Edward Felder MD Referring MD: Edward Felder MD Requesting Provider: Medicines: See the Anesthesia note for document ation of the administered medications Procedure: Pre-Anesthesia Assessment: - Prior to the procedure, a History and Physica l was performed, and patient medications and allergie s were reviewed. The patient is competent. The risks a nd benefits of the procedure and the sedation opt ions and risks were discussed with the patient. All ques tions were answered and informed consent was obtained . Patient identification and proposed procedure were veri fied by the physician, the nurse and the high court justice in the endoscopy suite. Prophylactic Antibiotics: The patient does not require prophylactic antibiotics. Prio r Anticoagulants: The patient has taken no previo us anticoagulant or antiplatelet agents. ASA Grade Assessment: III - A patient with severe systemi c disease. After reviewing the risks and benefits , the patient was deemed in satisfactory condition to undergo the procedure. The [facility] Immediately prior to administration of medications, the patient was re-assessed for adequacy to receive sedatives. The heart rate, respiratory rate, oxygen saturations, blo od pressure, adequacy of pulmonary ventilation, an d response to care were monitored throughout the procedure. The physical status of the patient w as re-assessed after the procedure. After obtaining informed consent, the endoscope was passed under direct vision. Throughout the proc edure, the patient's blood pressure, pulse, and oxygen saturations were monitored continuously. The En doscope PATIENT NAME: HEIDY ROBISON [id number] was introduced through the mouth, and advanced to the second part of duodenum. The upper GI endoscopy was accomplished without difficulty. The patient to lerated the procedure well. Findings: The examined esophagus was normal. THERE IS A SMALL GASTRIC REMNANT WITH GASTROJEJ UNOSTOMY CONSISTENT WITH HISTORY OF PREVIOUS GASTRIC BYPASS SURGERY, Thi s was biopsied with a cold forceps for histology. Verification of pat ient identification for the specimen was done. Estimated blood loss: no ne. The examined jejunum was normal. Complications: No immediate complications. Estimated Blood Loss: Estimated blood loss: none. Impression: - Normal esophagus. - Normal examined jejunum. Recommendation: - Discharge patient to home. - Resume previous diet. - Continue present medications. - Await pathology results. Procedure Code(s): --- Professional --- 56787, Esophagogastroduodenoscopy, flexible, tr ansoral; with biopsy, single or multiple CPT copyright 2017 [employer]. All rights reserved. The codes documented in this report are prelimin lorenza and upon physician coder review may be revised to meet current compliance requiremen ts. Edward Felder MD Edward Felder MD 02/08/2019 7:44:02 AM This report has been signed electronically. Number of Addenda: 0 Note Initiated On: 02/08/2019 6:48 AM at 0744 PATIENT NAME: HEIDY ROBISON [id number] 2019-02-05 [id number] [facility] 14:25:00-00:[address] [place] [address] PATIENT NAME: HEIDY ROBISON ADMIT DATE: ACCOUNT NO: [id number] ROOM NO: AGE: 63 REPORT TYPE: eELECTROCARDIOGRAM REPORT SEX: F ADMITTING PHYSICIAN: ATTENDING PHYSICIAN:Edward Felder MD Order: [id number] Test Reason : PRE OP Test Date/Time Stamp: TueFeb 05 2019 14:25:53 Blood Pressure : / mmHG Vent. Rate : 062 BPM Atrial Rate : 062 BPM P-R Int : 150 ms QRS Dur : 088 ms QT Int : 432 ms P-R-T Axes : 072 048 034 degree s QTc Int : 438 ms Normal sinus rhythm Minimal voltage criteria for LVH, may be normal variant Borderline ECG PRE_OP Confirmed by TARIK GARDNER MD ([id number]) on 02/06/20 19 3:37:27 PM Referred By: Edward Felder Confirmed by:TARIK GARDNER MD at 1722 PATIENT NAME: HEIDY ROBISON [id number]
[2023-02-09 04:51] LABS: Absolute Lymphocytes (CBC) 1.4 K/uL (0.7-4.9); Hematocrit 30.2 % (36.0-45.0); Lymphocytes % 26.7 % (15.3-44.8); MCV 74.8 fL (80-100); MPV 7.8 fL (7.6-11.3); RBC Red Blood Cell Count 4.04 M/uL (3.86-4.86)
[2023-02-09] MEDS ORDERED: NA CHLORIDE 0.9% 1,000 ML ONE (04:57)
[2023-02-09 05:03] LABS: Protime INR 0.95
[2023-02-09 05:15] LABS: ALT/SGPT 20 U/L (13-56); Albumin 3.2 g/dL (3.4-5.0); Alkaline Phosphatase 70 U/L (45-117); BUN Blood Urea Nitrogen 21 mg/dL (7-18); Bicarbonate 22 mEq/L (21-32); Bilirubin Total 0.2 mg/dL (0.2-1.0); Glomerular Filtration Rate 64 ml/min (=/>90); Glucose Level 107 mg/dL (74-106); Sodium Level 140 mEq/L (136-145)
[2023-02-09 05:21] LABS: AST/SGOT 21 U/L (15-37); Bilirubin Direct < 0.1 mg/dL (0-0.2); Bilirubin Indirect, Calculated ND mg/dL (0.2-0.8); Potassium 3.7 mEq/L (3.5-5.1)
--- NOTE | 2023-02-09 07:36 | EDPHYS ---
Physician Documentation [facility] Name: Heidy Robison Age: 67 yrs Sex: Female : 1955 Arrival Date: 02/09/2023 Time: 04:00 Bed 19 Private MD: ED Physician Quang Anderson HPI: 02/09 07:29 This 67 yrs old Female presents to ER via EMS with complaints of overdose of sp4 [place]. 07:29 I 67-year-old female with history anxiety, COPD, CVA, depression, fibromyalgia, on sp4 opiate medications daily presents with possible overdose of [place] and muscle relaxant. Patient went walking in the middle of the night and was found sitting in a ditch. EMS reported that patient has signs of intoxication. Patient states she took no more than 1 hydrocodone and 1 muscle relaxant at home. Patient's family was apparently concerned that she took more of a necessary of her regular medication. States she has insomnia and she could not fall asleep social went walking at nighttime. . PMH - 30Anxiety; COPD; CVA; Depression; Fibromyalgia; INFECTIOUS LUNG DISORDER; Lupus; MAC; RA; SEROTONIN SYNDROME;. 07:40 Patient herself states that she took [place] last time at about 4 PM yesterday and before sp4 bedtime she took Ambien and doxepin. She denied taking any excess medication. Historical: - Allergies: 04:18 Abilify; vc1 04:18 apremilast; vc1 04:18 FLU VACCINE; vc1 04:18 Seroquel; vc1 04:18 Sulfa (Sulfonamide Antibiotics); vc1 04:18 Doxepin; vc1 04:18 Ambien CR; vc1 - PMHx: 04:18 Anxiety; COPD; CVA; Depression; Fibromyalgia; INFECTIOUS LUNG DISORDER; Lupus; MAC; RA; vc1 SEROTONIN SYNDROME; - PSHx: 04:18 None; vc1 - Immunization history:: Client reports receiving the 2nd dose of the Covid vaccine. - Social history:: Smoking status: Patient denies any tobacco usage or history of. - Family history:: not pertinent. ROS: 07:40 Constitutional: Negative for fever, chills, and weight loss. sp4 07:40 All other systems are negative. Exam: 07:40 Constitutional: This is a well developed, well nourished patient who is awake, alert, sp4 and in no acute distress. Head/Face: Normocephalic, atraumatic. Eyes: Pupils equal round and reactive to light, extra-ocular motions intact. Lids and lashes normal. Conjunctiva and sclera are not injected. Cornea within normal limits. Periorbital areas with no swelling, redness, or edema. ENT: Nares patent. No nasal discharge, no septal abnormalities noted. Tympanic membranes are normal and external auditory canals are clear. Oropharynx with no redness, swelling, or masses, exudates, or evidence of obstruction, uvula midline. Mucous membranes moist. Neck: Trachea midline, no thyromegaly or masses palpated, and no cervical lymphadenopathy. Supple, full range of motion without nuchal rigidity, or vertebral point tenderness. Chest/axilla: Normal chest wall appearance and motion. Nontender with no deformity. No lesions are appreciated. Cardiovascular: Regular rate and rhythm with a normal S1 and S2. No gallops, murmurs, or rubs. Normal PMI, no JVD. No pulse deficits. Respiratory: Lungs have equal breath sounds bilaterally, clear to auscultation and percussion. No rales, rhonchi or wheezes noted. No increased work of breathing, no retractions or nasal flaring. Abdomen/GI: Soft, non-tender, with normal bowel sounds. No distension or tympany. No guarding or rebound. No evidence of tenderness throughout. Back: No spinal tenderness. No costovertebral tenderness. Skin: Warm, dry with normal turgor. Normal color with no rashes, no lesions, and no evidence of cellulitis. MS/ Extremity: Pulses equal, no cyanosis. Neurovascular intact. Full, normal range of motion. Neuro: Awake and alert, GCS 15, oriented to person, place, time, and situation. Cranial nerves II-XII grossly intact. Motor strength 5/5 in all extremities. Sensory grossly intact. Psych: Awake, alert, with orientation to person, place and time. Behavior, mood, and affect are within normal limits Vital Signs: 04:10 BP 102 / 44; Pulse 61; Resp 13; Temp 98.3; Pulse Ox 96% on R/A; Weight 68.04 kg; Height vc1 5 ft. 5 in. ; Pain 0/10; 06:17 BP 96 / 46; Pulse 56; Resp 13; Pulse Ox 98% on R/A; rv1 07:45 BP 116 / 61; Pulse 61; Resp 18; Pulse Ox 100% on R/A; ld1 04:10 Body Mass Index 24.96 (68.04 kg, 165.1 cm) vc1 04:10 Pain Scale: Adult vc1 06:17 Nurse and Provider aware of BP rv1 MDM: 04:10 Patient medically screened. sp4 07:31 ED course: EXAM DESCRIPTION: CT of the head without contrast CLINICAL HISTORY: CONFUSED sp4 COMPARISON: 03/20/2019 TECHNIQUE: Axial CT of the head obtained from the skull apex to the skull base without contrast. This exam was performed according to our departmental dose-optimization program, which includes automated exposure control, adjustment of the mA and/or kV according to patient size and/or use of iterative reconstruction technique. FINDINGS: No acute intracranial hemorrhage identified. No mass, mass effect, shift of the midline, abnormal extra-axial fluid collection or CT evidence of acute ischemic change identified. The ventricular system and sulcal spaces are mildly enlarged compatible with mild cerebral atrophy. Scattered areas of hypodensity throughout the supratentorial white matter are nonspecific and may be related to chronic small vessel ischemic change. The visualized paranasal sinuses and mastoid air cells are well aerated. No skull fracture identified. Visualized orbits and globes are unremarkable. Atherosclerotic calcification of the intracranial internal carotid arteries. IMPRESSION: 1. No acute intracranial abnormality by CT criteria.. 07:40 Differential Diagnosis altered mental status, flu, Medication overdose. Data reviewed: sp4 vital signs, nurses notes, EMS record, old medical records, lab test result(s), EKG, radiologic studies. ED course: Lab work today is unremarkable. Patient denied taking any overdose of any medications. CT head is unremarkable. Patient is stable for discharge home. Condition is stable. 02/09 04:10 Order name: Acetaminophen; Complete Time: 4 02/09 04:10 Order name: Basic Metabolic Panel; Complete Time: : 4 02/09 04:10 Order name: CBC with Diff; Complete Time: : 4 02/09 04:10 Order name: ETOH Level; Complete Time: 4 02/09 04:10 Order name: Hepatic Function; Complete Time: : sp4 02/09 04:10 Order name: PT-INR; Complete Time: 07: sp4 02/09 04:10 Order name: Ptt, Activated; Complete Time: : sp4 02/09 04:10 Order name: Salicylate; Complete Time: 07: sp4 02/09 04:10 Order name: CT Head Brain wo Cont sp4 02/09 04:10 Order name: EKG; Complete Time: 04:11 sp4 02/09 04:10 Order name: EKG - Nurse/Tech; Complete Time: 04:38 sp4 02/09 04:10 Order name: IV Saline Lock; Complete Time: 04: sp4 02/09 04:10 Order name: Labs collected and sent; Complete Time: : sp4 02/09 04:10 Order name: Suicide Screening ([place]); Complete Time: 04:42 sp4 Administered Medications: 04:54 Drug: NS 0.9% IV 1000 ml Route: IV; Rate: 125 ml/hr; Site: right antecubital; vc1 Disposition Summary: 02/09/23 07:35 Discharge Ordered Location: Home sp4 Problem: new sp4 Symptoms: have improved sp4 Condition: Stable sp4 Diagnosis - Insomnia sp4 Followup: sp4 - With: Private Physician - When: 7 - 10 days - Reason: Recheck today's complaints Discharge Instructions: - Discharge Summary Sheet sp4 - Insomnia sp4 Forms: - Patient Portal Instructions sp4 Signatures: Dispatcher [employer] Mackenzie Gómez RN RN vc1 Quang Anderson MD MD sp4
--- NOTE | 2023-02-09 07:36 | ER ---
Nurse's Notes [facility] Name: Heidy Robison Age: 67 yrs Sex: Female : 1955 Arrival Date: 02/09/2023 Time: 04:00 Bed 19 Private MD: Diagnosis: Insomnia Presentation: 02/09 04:06 Chief complaint: EMS states: Pt was found in a ditch, family reports she has a history jb4 of over taking her medications at night. When asking the pt, she reports only taking 1 of her hydrocodone and 1 of her muscle relaxer. her BGL was 99, last blood pressure was 100/55 and hr was 62-66. 04:06 Method Of Arrival: EMS: [facility] jb4 04:10 Chief complaint: Patient states: I took my Doxepin and ambien CR. Coronavirus screen: vc1 Vaccine status: Patient reports receiving the 2nd dose of the covid vaccine. [employer] Client denies travel out of the [place] in the last 14 days. At this time, the client does not indicate any symptoms associated with coronavirus-19. Ebola Screen: Patient negative for fever greater than or equal to 101.5 degrees Fahrenheit, and additional compatible Ebola Virus Disease symptoms Patient denies exposure to infectious person. Patient denies travel to an Ebola-affected area in the 21 days before illness onset. No symptoms or risks identified at this time. Initial Sepsis Screen: Does the patient meet any 2 criteria? No. Patient's initial sepsis screen is negative. Does the patient have a suspected source of infection? No. Patient's initial sepsis screen is negative. Risk Assessment: Do you want to hurt yourself or someone else? Patient reports no desire to harm self or others. Onset of symptoms was February 09, 2023. 04:10 Acuity: ADELE 3 vc1 Triage Assessment: 04:21 General: Appears in no apparent distress. comfortable, Behavior is cooperative, drowsy. vc1 Pain: Denies pain. EENT: No deficits noted. No signs and/or symptoms were reported regarding the EENT system. Neuro: Level of Consciousness is obeys commands, lethargic, Oriented to person, place, time, situation, Appropriate for age. Cardiovascular: No deficits noted. Respiratory: Airway is patent Respiratory effort is even, unlabored, Respiratory pattern is regular, symmetrical. GI: No deficits noted. No signs and/or symptoms were reported involving the gastrointestinal system. : No deficits noted. No signs and/or symptoms were reported regarding the genitourinary system. Derm: No deficits noted. No signs and/or symptoms reported regarding the dermatologic system. Musculoskeletal: No deficits noted. No signs and/or symptoms reported regarding the musculoskeletal system. Historical: - Allergies: 04:18 Abilify; vc1 04:18 apremilast; vc1 04:18 FLU VACCINE; vc1 04:18 Seroquel; vc1 04:18 Sulfa (Sulfonamide Antibiotics); vc1 04:18 Doxepin; vc1 04:18 Ambien CR; vc1 - PMHx: 04:18 Anxiety; COPD; CVA; Depression; Fibromyalgia; INFECTIOUS LUNG DISORDER; Lupus; MAC; RA; vc1 SEROTONIN SYNDROME; - PSHx: 04:18 None; vc1 - Immunization history:: Client reports receiving the 2nd dose of the Covid vaccine. - Social history:: Smoking status: Patient denies any tobacco usage or history of. - Family history:: not pertinent. Screenin:20 [facility] ED Fall Risk Assessment (Adult) History of falling in the last 3 months, vc1 including since admission No falls in past 3 months (0 pts) Confusion or Disorientation Yes (5 pts) Intoxicated or Sedated Yes (3 pts) Impaired Gait No (0 pts) Mobility Assist Device Used Yes (1 pt) Altered Elimination No (0 pt) Score/Fall Risk Level 0 - 2 = Low Risk Oriented to surroundings, Maintained a safe environment, Educated pt \T\ family on fall prevention, incl call for assistance when getting out of bed. Abuse screen: Denies threats or abuse. Nutritional screening: No deficits noted. Tuberculosis screening: No symptoms or risk factors identified. Assessment: 06:25 Reassessment: No changes from previously documented assessment. Patient and/or family vc1 updated on plan of care and expected duration. Pain level reassessed. 06:25 Neuro: Level of Consciousness is lethargic. vc1 07:45 Reassessment: No changes from previously documented assessment. Patient and/or family ld1 updated on plan of care and expected duration. Pain level reassessed. Patient is alert, oriented x 3, equal unlabored respirations, skin warm/dry/pink. Patient states symptoms have improved. Vital Signs: 04:10 BP 102 / 44; Pulse 61; Resp 13; Temp 98.3; Pulse Ox 96% on R/A; Weight 68.04 kg; Height vc1 5 ft. 5 in. ; Pain 0/10; 06:17 BP 96 / 46; Pulse 56; Resp 13; Pulse Ox 98% on R/A; rv1 07:45 BP 116 / 61; Pulse 61; Resp 18; Pulse Ox 100% on R/A; ld1 04:10 Body Mass Index 24.96 (68.04 kg, 165.1 cm) vc1 04:10 Pain Scale: Adult vc1 06:17 Nurse and Provider aware of BP rv1 ED Course: 04:02 Patient arrived in ED. rv1 04:10 Quang Anderson MD is Attending Physician. sp4 04:15 Missed attempt(s): 22 gauge in left antecubital area. bc6 04:18 Triage completed. vc1 04:19 Arm band placed on left wrist. vc1 04:21 Patient has correct armband on for positive identification. Bed in low position. Call vc1 light in reach. Client placed on continuous cardiac and pulse oximetry monitoring. NIBP monitoring applied. 04:38 Acetaminophen Sent. bc6 04:38 Basic Metabolic Panel Sent. bc6 04:38 CBC with Diff Sent. bc6 04:38 ETOH Level Sent. bc6 04:38 Hepatic Function Sent. bc6 04:38 PT-INR Sent. bc6 04:38 Ptt, Activated Sent. bc6 04:38 Salicylate Sent. bc6 04:38 Inserted saline lock: 22 gauge in right forearm, using aseptic technique. Blood bc6 collected. 05:19 CT Head Brain wo Cont In Process Unspecified. EDMS 08:19 No provider procedures requiring assistance completed. IV discontinued, intact, ld1 bleeding controlled, No redness/swelling at site. Administered Medications: 04:54 Drug: NS 0.9% IV 1000 ml Route: IV; Rate: 125 ml/hr; Site: right antecubital; vc1 Medication: 04:20 VIS not applicable for this client. vc1 Outcome: 07:35 Discharge ordered by . sp4 08:19 Discharged to home ambulatory. ld1 08:19 Condition: stable 08:19 Discharge instructions given to patient, Instructed on discharge instructions, follow up and referral plans. Demonstrated understanding of instructions, follow-up care. 08:19 Patient left the ED. ld1 Signatures: Dispatcher [employer] EDMS Suresh Gibson RN RN jb4 Ruthie Fregoso RN RN ld1 Mackenzie Benz RN RN vc1 Laila Thapa rv1 Sujatha Patel bc6 Quang Anderson MD MD sp4 Corrections: (The following items were deleted from the chart) 06:20 06:17 BP 96 / 46; Pulse 56bpm; Resp 13bpm; Pulse Ox 98% RA; rv1 rv1 06:20 06:17 BP 96 / 46; Pulse 56bpm; Resp 13bpm; Pulse Ox 98% RA; Nurse and Provider aware of rv1 BP; rv1 06:21 06:17 BP 96 / 46; Pulse 56bpm; Resp 13bpm; Pulse Ox 98% RA; Temp 98F; Nurse and rv1 Provider aware of BP; rv1 06:26 06:25 Reassessment: Patient and/or family updated on plan of care and expected vc1 duration. Pain level reassessed. Patient is alert, oriented x 3, equal unlabored respirations, skin warm/dry/pink. Patient states feeling better. Patient states symptoms have improved. vc1
[2023-02-09 08:27] VITALS: TEMP 98.3
[2023-02-09 08:40] VITALS: BP 116/61; O2SAT 100
--- NOTE | 2023-02-09 11:56 | RAD REPORT ---
EXAM DESCRIPTION: CT - Head Brain Wo Cont - 02/09/2023 6:26 am CLINICAL HISTORY: CONFUSED COMPARISON: 03/20/2019 TECHNIQUE: Axial CT of the head obtained from the skull apex to the skull base without contrast. Thi s exam was performed according to our departmental dose-optimization program, which includes automate d exposure control, adjustment of the mA and/or kV according to patient size and/or use of iterative reconstruction technique. FINDINGS: No acute intracranial hemorrhage identified. No mass, mass effect, shift of the midline, a bnormal extra-axial fluid collection or CT evidence of acute ischemic change identified. The ventricu lar system and sulcal spaces are mildly enlarged compatible with mild cerebral atrophy. Scattered a reas of hypodensity throughout the supratentorial white matter are nonspecific and may be related to chronic small vessel ischemic change. The visualized paranasal sinuses and mastoid air cells are well aerated. No skull fracture identifi ed. Visualized orbits and globes are unremarkable. Atherosclerotic calcification of the intracranial internal carotid arteries. IMPRESSION: 1. No acute intracranial abnormality by CT criteria. Electronically signed by: Shane Alas 02/09/2023 5:29 AM CDT Due to temporary technical issues with the PACS/Fluency reporting system, reports are being signed by the in house radiologists without review as a courtesy to insure prompt reporting. The interpreting radiologist is fully responsible for the content of the report.
--- NOTE | 2023-02-09 17:31 | EKG ---
Test Date: 2023-02-09 Test Time: 04:14:11 Personal Lines Underwriter: BJORN MEASUREMENT RESULTS: Intervals: Rate: 60 TN: 148 QRSD: 82 QT: 428 QTc: 428 [place]: P: 67 TN: 148 QRS: 25 T: 45 INTERPRETIVE STATEMENTS: Normal sinus rhythm Normal ECG Compared to ECG 02/24/2021 13:28:27 Sinus bradycardia no longer present Left ventricular hypertrophy no longer present Electronically Signed On 02-09-23 17:30:38 CDT by Beau Perkins
== END 2023-02-09 08:19 | disposition home or self-care (01) ==
LOC: ER 04:00
DX: G47.00 Insomnia, unspecified (principal); J44.9 Chronic obstructive pulmonary disease, unspecified; F41.9 Anxiety disorder, unspecified; Z86.73 Personal history of transient ischemic attack (TIA), and cerebral infarction without residual deficits; Z88.2 Allergy status to sulfonamides; Z88.7 Allergy status to serum and vaccine; Z88.8 Allergy status to other drugs, medicaments and biological substances
CPT/HCPCS: 93005; 85025; 80048; 36415; 85610; 80076; 85730; 70450; 80143; 80179; 82077; J7030

== ENCOUNTER 2024-08-25 20:30 | Emergency (ER) | payer OTHER ==
--- NOTE | 2024-08-25 21:13 | RAD REPORT ---
EXAM: CT brain without contrast HISTORY: TRAUMA COMPARISON: None TECHNIQUE: Multiple contiguous axial images were obtained and a CT of the brain without contrast. Sag ittal and coronal reformats were performed. One or more of the following dose reduction techniques were used: Automated exposure control, adjust ment of the mA and/or kV according to patient size, and/or iterative reconstruction. FINDINGS: 4 mm left-sided intermediate density subdural fluid collection likely hygroma and similar to prior re mote study. No acute hemorrhage seen. No hydrocephalus or midline shift. Old left 6 mm pontine infarct. Mild brain atrophy with mild periventricular and deep white matter chronic microvascular isc hemic changes present. No evidence of midline shift or areas of brain edema. The calvarium is intact. The visualized paranasal sinuses and mastoid air cells are essentially clear . IMPRESSION: No evidence of acute intracranial abnormality. EXAM: CT of the cervical spine without contrast HISTORY: Neck pain, injury TRAUMA TECHNIQUE: Multiple contiguous axial images were obtained in a CT of the cervical spine without contr ast. Sagittal and coronal reformats were performed. FINDINGS: The vertebral bodies demonstrate normal height and alignment. No evidence of acute fracture or subluxation.. No degenerative changes are present. No prevertebral soft tissue swelling is seen. The posterior facets are well aligned. Normal alignment of the skull base with the cervical spine is seen. Bilateral carotid atherosclerosis. The lung apices are unremarkable. IMPRESSION: No evidence of acute osseous abnormality of the cervical spine.
--- NOTE | 2024-08-25 21:27 | RAD REPORT ---
EXAM: CT CHEST, ABDOMEN AND PELVIS WITHOUT CONTRAST CLINICAL INDICATION: TRAUMA TECHNIQUE: CT chest, abdomen and pelvis was performed without contrast, as per department protocol. A xial, sagittal and coronal reconstructions were obtained. One or more of the following dose reduction techniques were used: Automated exposure control, adjustment of the mA and/or kV according to patient size, and/or iterative reconstruction. Unless otherwise specified, incidental findings do not require dedicated imaging follow-up. Examination is limited by the lack of intravenous contrast material. COMPARISON: No prior exam. FINDINGS: LUNGS: Emphysematous changes are present with areas of linear scarring. PLEURA: No pleural effusion. No pneumothorax. MEDIASTINUM AND LYMPH NODES: No mediastinal mass or fluid collection. Normal size mediastinal, hilar, and axillary lymph nodes. Patulous esophagus with moderate hiatal hernia. Postsurgical changes at the gastroesophageal junction. OSSEOUS STRUCTURES AND CHEST WALL: Intact. LIVER: Normal in size and contour. No focal lesion or biliary dilatation. Grossly unremarkable gallbl adder. PANCREAS: No mass, ductal dilation, or geraldine-pancreatic fluid. SPLEEN: Normal size. No focal lesion. ADRENALS: Normal; no mass. KIDNEYS: Normal size and contour. No hydronephrosis. URINARY BLADDER: Normal contour. GASTROINTESTINAL TRACT: No bowel obstruction, free air, significant free fluid or abscess. APPENDIX: Normal appendix. LYMPH NODES: No lymphadenopathy. MUSCULOSKELETAL: Left total hip arthroplasty. Degenerative levoscoliosis of the lumbar spine. Moderat e degenerative change affecting the thoracolumbar articulation. OTHER: Significant fecal retention IMPRESSION: No acute abnormalities seen in the chest, abdomen or pelvis.
--- NOTE | 2024-08-25 21:40 | ER ---
Nurse's Notes [facility] Name: Heidy Robison Age: 69 yrs Sex: Female : 1955 Arrival Date: 08/25/2024 Time: 20:30 Bed 7 Private MD: Diagnosis: Fall on same level, unspecified;Unspecified injury of head, initial encounter Presentation: 08/25 20:32 Chief complaint: Patient states: I was going up my stairs in my house and missed a step bm8 falling back wards, and I hit the back of my head. 20:32 Coronavirus screen: At this time, the client does not indicate any symptoms associated bm8 with coronavirus-19. Ebola Screen: Patient negative for fever greater than or equal to 101.5 degrees Fahrenheit, and additional compatible Ebola Virus Disease symptoms Patient denies exposure to infectious person. Patient denies travel to an Ebola-affected area in the 21 days before illness onset. No symptoms or risks identified at this time. Initial Sepsis Screen: Does the patient meet any 2 criteria? No. Patient's initial sepsis screen is negative. Does the patient have a suspected source of infection? No. Patient's initial sepsis screen is negative. Risk Assessment: Do you want to hurt yourself or someone else? Patient reports no desire to harm self or others. Onset of symptoms was August 25, 2024 at 20:00. 20:32 Method Of Arrival: EMS: [facility] bm8 20:32 Acuity: ADELE 3 bm8 Triage Assessment: 20:48 General: Appears in no apparent distress. comfortable, Behavior is calm, cooperative, bm8 appropriate for age. Pain: Complains of pain in scalp Pain currently is 4 out of 10 on a pain scale. EENT: No deficits noted. No signs and/or symptoms were reported regarding the EENT system. Neuro: Level of Consciousness is awake, alert, obeys commands, Oriented to person, place, time, situation, Appropriate for age Moves all extremities. Speech is normal, Facial symmetry appears normal, Pupils are PERRLA, Pupil Size: 3 mm Reports a fogginess across her vision. Cardiovascular: Denies chest pain, Capillary refill < 3 seconds in bilateral fingers Patient's skin is warm and dry. Respiratory: Airway is patent Respiratory effort is even, unlabored, Respiratory pattern is regular, symmetrical. GI: No signs and/or symptoms were reported involving the gastrointestinal system. : No signs and/or symptoms were reported regarding the genitourinary system. Derm: pt has quarter sized hematoma on back of scalp around the occipital region. Musculoskeletal: No signs and/or symptoms reported regarding the musculoskeletal system. Historical: - Allergies: 20:46 Abilify; bm8 20:46 Ambien CR; bm8 20:46 apremilast; bm8 20:46 Doxepin; bm8 20:46 FLU VACCINE; bm8 20:46 Seroquel; bm8 20:46 Sulfa (Sulfonamide Antibiotics); bm8 - Home Meds: 20:46 meclizine 25 mg oral tablet 1 tab 3 times per day [Active]; pregabalin 150 mg Oral bm8 capsule 1 cap 2 times per day [Active]; 20:48 Sherman 5/325 Oral 2 tablets as needed [Active]; amlodipine 5 mg tablet 1 tab daily bm8 [Active]; Otezla 30 mg oral tablet 1 tab once [Active]; celecoxib 200 mg Oral capsule 1 cap 2 times per day [Active]; Robaxin Oral every 6 hours [Active]; - PMHx: 20:46 Anxiety; COPD; CVA; Depression; Fibromyalgia; INFECTIOUS LUNG DISORDER; Lupus; MAC; RA; bm8 SEROTONIN SYNDROME; 20:48 4 bulging discs; HTN; bm8 - PSHx: 20:48 g bypass; Cholecystectomy; hysterectomy; c section; Tonsillectomy; bm8 - Immunization history:: Adult Immunizations unknown. - Infectious Disease History:: Denies. - Social history:: Smoking status: Patient denies any tobacco usage or history of. Screenin:57 [facility] ED Fall Risk Assessment (Adult) History of falling in the last 3 months, bm8 including since admission Yes- single mechanical fall (1 pt) Confusion or Disorientation No (0 pts) Intoxicated or Sedated No (0 pts) Impaired Gait Yes (1 pt) Mobility Assist Device Used No (0 pt) Altered Elimination No (0 pt) Score/Fall Risk Level 3 or more points = High Risk Oriented to surroundings, Maintained a safe environment, Educated pt \T\ family on fall prevention, incl call for assistance when getting out of bed, Assessed \T\ reinforced patient's understanding of fall precautions, Hourly rounding (assess needs \T\ fall precautionary measures) done, Used ambulatory aids as needed (educated on \T\ assisted with), Used gait belt as appropriate Implemented a Fall Risk Plan of Care. Abuse screen: Denies threats or abuse. Nutritional screening: No deficits noted. Tuberculosis screening: No symptoms or risk factors identified. Assessment: 20:57 Reassessment: see triage note. bm8 21:36 Reassessment: Patient appears in no apparent distress at this time. Patient and/or bm8 family updated on plan of care and expected duration. Pain level reassessed. Patient is alert, oriented x 3, equal unlabored respirations, skin warm/dry/pink. Patient denies pain at this time. Patient states feeling better. Patient states symptoms have improved. Vital Signs: 20:32 BP 142 / 65; Pulse 94; Resp 18; Temp 99; Pulse Ox 97% ; Weight 61.23 kg; Height 5 ft. 5 bm8 in. ; Pain 4/10; 21:36 BP 136 / 73; Pulse 86; Resp 18; Temp 99; Pulse Ox 95% ; Pain 0/10; bm8 20:32 Body Mass Index 22.46 (61.23 kg, 165.1 cm) bm8 20:32 Pain Scale: Adult bm8 21:36 Pain Scale: Adult bm8 Satnam Coma Score: 20:57 Eye Response: spontaneous(4). Motor Response: obeys commands(6). Verbal Response: bm8 oriented(5). Total: 15. 21:36 Eye Response: spontaneous(4). Motor Response: obeys commands(6). Verbal Response: bm8 oriented(5). Total: 15. ED Course: 20:32 Patient arrived in ED. vk 20:33 Brynn Christie PA-C is PHCP. sb4 20:33 Kp Oneil MD is Attending Physician. sb4 20:43 Jimmy Nicole, RORY is Primary Nurse. bm8 20:46 Triage completed. bm8 20:48 Arm band placed on right wrist. bm8 20:57 Patient has correct armband on for positive identification. Bed in low position. Call bm8 light in reach. Side rails up X 1. Client placed on continuous cardiac and pulse oximetry monitoring. NIBP monitoring applied. front desk monitor on. Pulse ox on. NIBP on. Door closed. Noise minimized. Warm blanket given. Pillow given. Verbal reassurance given. Head of bed elevated. 20:57 No provider procedures requiring assistance completed. bm8 21:18 Head C Spine MPR Wo Con CT In Process Unspecified. EDMS 21:18 CT Chest Abdomen Pelvis W/O Contrast In Process Unspecified. EDMS 21:36 Provided Education on: post er care. bm8 21:36 Patient did not have IV access during this emergency room visit. bm8 Administered Medications: No medications were administered Medication: 20:57 VIS not applicable for this client. bm8 Outcome: 21:36 Discharged to home ambulatory, bm8 21:36 Condition: stable 21:36 Discharge instructions given to patient, Instructed on discharge instructions, follow up and referral plans. no drinking with medication, no driving heavy equipment, medication usage, safety practices, Demonstrated understanding of instructions, follow-up care, medications, 21:39 Discharge ordered by . sb4 21:57 Patient left the ED. bm8 Signatures: Dispatcher [employer] EDBrynn Lemus PA-C PA-C sb4 Krupa Pierson Brad, RN RN bm8
--- NOTE | 2024-08-25 21:40 | EDPHYS ---
Physician Documentation [facility] Name: Heidy Robison Age: 69 yrs Sex: Female : 1955 Arrival Date: 08/25/2024 Time: 20:30 Bed 7 Private MD: ED Physician Kp Oneil HPI: 08/25 22:02 This 69 yrs old Female presents to ER via EMS with complaints of Fall Injury. sb4 22:02 mechanical fall due to a step in her entryway. states she was trying to prevent her cat sb4 from getting outside when she tripped and fell back, striking the back of her head. no loc, not on any blood thinners. states she has a mild headache but no other symptoms. Historical: - Allergies: 20:46 Abilify; bm8 20:46 Ambien CR; bm8 20:46 apremilast; bm8 20:46 Doxepin; bm8 20:46 FLU VACCINE; bm8 20:46 Seroquel; bm8 20:46 Sulfa (Sulfonamide Antibiotics); bm8 - Home Meds: 20:46 meclizine 25 mg oral tablet 1 tab 3 times per day [Active]; pregabalin 150 mg Oral bm8 capsule 1 cap 2 times per day [Active]; 20:48 [place] 5/325 Oral 2 tablets as needed [Active]; amlodipine 5 mg tablet 1 tab daily bm8 [Active]; Otezla 30 mg oral tablet 1 tab once [Active]; celecoxib 200 mg Oral capsule 1 cap 2 times per day [Active]; Robaxin Oral every 6 hours [Active]; - PMHx: 20:46 Anxiety; COPD; CVA; Depression; Fibromyalgia; INFECTIOUS LUNG DISORDER; Lupus; MAC; RA; bm8 SEROTONIN SYNDROME; 20:48 4 bulging discs; HTN; bm8 - PSHx: 20:48 g bypass; Cholecystectomy; hysterectomy; c section; Tonsillectomy; bm8 - Immunization history:: Adult Immunizations unknown. - Infectious Disease History:: Denies. - Social history:: Smoking status: Patient denies any tobacco usage or history of. ROS: 22:02 Constitutional: Negative for fever, chills, and weight loss, sb4 22:02 Neuro: Positive for headache, 22:02 All other systems are negative, Exam: 22:02 Constitutional: This is a well developed, well nourished patient who is awake, alert, sb4 and in no acute distress. Eyes: Extra-ocular motions intact. Periorbital areas with no swelling, redness, or edema. ENT: Mucous membranes moist. Cardiovascular: Regular rate and rhythm with a normal S1 and S2. Respiratory: No increased work of breathing, no retractions or nasal flaring. Abdomen/GI: Soft, non-tender, no distension. Skin: Warm, dry with normal turgor. Normal color with no rashes, no lesions, and no evidence of cellulitis. MS/ Extremity: Pulses equal, no cyanosis. Neurovascular intact. Full, normal range of motion. Neuro: Awake and alert, GCS 15, oriented to person, place, time, and situation. Motor strength 5/5 in all extremities. Sensory grossly intact. 22:02 Head/face: Noted is hematoma, that is mild, of the left occipital area and right occipital area, Vital Signs: 20:32 BP 142 / 65; Pulse 94; Resp 18; Temp 99; Pulse Ox 97% ; Weight 61.23 kg; Height 5 ft. 5 bm8 in. ; Pain 4/10; 21:36 BP 136 / 73; Pulse 86; Resp 18; Temp 99; Pulse Ox 95% ; Pain 0/10; bm8 20:32 Body Mass Index 22.46 (61.23 kg, 165.1 cm) bm8 20:32 Pain Scale: Adult bm8 21:36 Pain Scale: Adult bm8 Wideman Coma Score: 20:57 Eye Response: spontaneous(4). Motor Response: obeys commands(6). Verbal Response: bm8 oriented(5). Total: 15. 21:36 Eye Response: spontaneous(4). Motor Response: obeys commands(6). Verbal Response: bm8 oriented(5). Total: 15. MDM: 20:33 Medical Screening Exam initiated sb4 22:03 Data reviewed: vital signs, nurses notes, EMS record, radiologic studies, and as a sb4 result, I will discharge patient. Counseling: I had a detailed discussion with the patient and/or guardian regarding the historical points, exam findings, and any diagnostic results supporting the discharge/admit diagnosis, radiology results, the need for outpatient follow up, for definitive care, to return to the emergency department if symptoms worsen or persist or if there are any questions or concerns that arise at home. 08/25 20:38 Order name: Head C Spine MPR Wo Con CT; Complete Time: 21:20 sb4 08/25 20:38 Order name: CT Chest Abdomen Pelvis W/O Contrast; Complete Time: 21:28 sb4 Administered Medications: No medications were administered Disposition: 08/26 08:44 Co-signature as Attending Physician, Kp Oneil MD I agree with the assessment and christa plan of care. Disposition Summary: 08/25/24 21:39 Discharge Ordered Notes: Location: Home sb4 Problem: new sb4 Symptoms: are unchanged sb4 Condition: Stable sb4 Diagnosis - Fall on same level, unspecified sb4 - Unspecified injury of head, initial encounter sb4 Followup: sb4 - With: Emergency Department - When: As needed - Reason: Trouble breathing, Worsening of condition Discharge Instructions: - Discharge Summary Sheet sb4 - Fall Prevention in the Home, Adult, [id number] sb4 - Concussion, Adult, [id number] sb4 - Head Injury, Adult, [id number] sb4 - Facial or Scalp Contusion, [id number] sb4 Forms: - Patient Portal Instructions sb4 - Leadership Thank You Letter sb4 Signatures: Dispatcher [employer] Kp Keith MD MD cha Brown, Sophia, PATangC PATangC sb4 Jimmy Nicole, RN RN bm8
[2024-08-25 22:05] VITALS: BP 136/73; TEMP 99; O2SAT 95
== END 2024-08-25 21:57 | disposition home or self-care (01) ==
LOC: ER 20:30
DX: S00.83XA Contusion of other part of head, initial encounter (principal); W01.0XXA Fall on same level from slipping, tripping and stumbling without subsequent striking against object, initial encounter; I10 Essential (primary) hypertension; J44.9 Chronic obstructive pulmonary disease, unspecified; Z86.73 Personal history of transient ischemic attack (TIA), and cerebral infarction without residual deficits
CPT/HCPCS: 70450; 71250; 72125; 74176; 99284

== ENCOUNTER 2025-03-10 11:40 | Inpatient (IN) | payer OTHER ==
[2025-03-10] MEDS ORDERED: CALCIUM CARBONATE CHEW 500MG TAB PO PRN (14:44)
[2025-03-10] MEDS ORDERED: TRIAMCINOLONE ACET 0.1% CREAM 80 GM TOP PRN (15:00)
[2025-03-10] MEDS ORDERED: MELATONIN 3 MG TABLET PO PRN (15:04)
[2025-03-10] MEDS: METOPROLOL TAR 25 MG TAB PO SCH ×2 (17:36→20:39)
[2025-03-10] MEDS: IPRATROPIUM BROM 0.5MG/2.5ML NEB SCH (19:58)
[2025-03-10] MEDS: MAGNESIUM OXIDE 400 MG TAB PO SCH (20:00)
[2025-03-10] MEDS ORDERED: VERAPAMIL HCL 120 MG TAB PO SCH (20:00)
[2025-03-10] MEDS: DOXEPIN HCL 25 MG CAP PO SCH (20:33)
[2025-03-10] MEDS: OLANZapine 2.5 MG TAB PO SCH (20:33)
[2025-03-10] MEDS: DOCUSATE NA/SENNA CONC 1 TAB PO PRN (20:34)
[2025-03-10] MEDS: BUSPIRONE HCL 15 MG TABLET PO SCH (20:34)
[2025-03-10] MEDS: PREGABALIN 150 MG CAP PO SCH (20:34)
[2025-03-10] MEDS: APIXABAN 5 MG TABLET PO SCH (20:34)
[2025-03-10] MEDS: AMOX/K CLAV 875 MG TAB PO SCH (20:34)
[2025-03-10 21:13] LABS: Urine Microscopic Reflex YN NO UMIC
[2025-03-11] MEDS: HYDROCODONE/APAP 10/325 TAB PO PRN (00:59)
[2025-03-11] MEDS: LEVOTHYROXINE SOD 0.1 MG TAB PO SCH (06:09)
[2025-03-11 06:33] LABS: Absolute Lymphocytes (CBC) 0.9 K/uL (0.7-4.9); Hematocrit 28.4 % (36.0-45.0); Hemoglobin 9.2 g/dL (12.0-15.0); MCH 28.0 pg (27.0-35.0); MCHC 32.4 g/dL (32.0-36.0); MCV 86.4 fL (80-100); MPV 8.3 fL (7.6-11.3); Nucleated RBC Absolute Count 0.0 (0-0); Nucleated Red Blood Cells % 0.2 % (0-0); RBC Red Blood Cell Count 3.29 M/uL (3.86-4.86); White Blood Count 3.00 thou/uL (4.3-10.9)
[2025-03-11 07:05] LABS: Albumin 1.7 g/dL (3.4-5.0); Anion Gap 6.1 mEq/L (5.0-15.0); BUN Blood Urea Nitrogen 5.0 mg/dL (7-18); Glucose Level 81.0 mg/dL (74-106); Magnesium 1.8 mg/dL (1.6-2.4); Potassium 3.1 mEq/L (3.5-5.1); Prealbumin 16.5 mg/dL (20-40)
--- NOTE | 2025-03-11 07:13 | RAD REPORT ---
EXAM: Chest Single View HISTORY: 69 years Female sob COMPARISON: 02/24/2021 FINDINGS: LUNGS/PLEURA: Blunted costophrenic angles. Scarring bilaterally in the lung bases. Background of emph ysema. New right basilar opacity CARDIAC/MEDIASTINUM: Mild cardiomegaly UPPER ABDOMEN: Surgical clips in right upper quadrant. BONES: No acute abnormality. LINES/TUBES/OTHER: N/A IMPRESSION: Ill-defined right basilar opacity could reflect atelectasis and/or consolidation. Suggest 4-6 week fo llow-up to ensure resolution. Chronic changes including emphysema and scarring.
[2025-03-11 07:17] LABS: Anisocytosis 3+; Blood Morphology Comment NOTED (NOT SEEN); White Blood Cell Scan OK (OK)
[2025-03-11] MEDS: PANTOPRAZOLE 40MG TABLET PO SCH (07:36)
[2025-03-11] MEDS: CYANOCOBALAMIN 1,000 MCG TAB PO SCH (07:39)
[2025-03-11] MEDS: AMLODIPINE 10 MG TAB PO SCH (20:01)
--- NOTE | 2025-03-12 01:15 | HP ---
Date of Admission: 03/10/2025 Time: 12 noon. History Of Present Illness: Ms. Robison is a 69-year-old patient with history of COPD, requiring oxygen at least 3 L at night; pulmonary fibrosis; psoriatic arthritis; hypothyroidism; and mixed connective tissue disease who was admitted to Hospital in January 2025 with a right lower lobe pulmonary embolism, necrotizing pneumonia, and an enlarged loculated right pleural effusion concerning for empyema. She was treated with therapeutic Lovenox and had a chest tube placed. Pleural fluid cultures were taken and drawn and she was initiated on linezolid. After her first round of the intrapleural tPA therapy, she developed hypotension that was refractory to IV fluids and midodrine. She required MICU transfer and pressure support. She did require 5 additional rounds of thrombolysis with tPA/dornase without recurrent hypotension. She was eventually successfully weaned off pressors. On February 19, she was transferred back to medical floor, completed her intrapleural therapy, and her chest tube was removed without complications. She was seen by the infectious disease service after determining the pleural fluid culture represented contamination. She was transitioned to Unasyn and then Zosyn due to concern for aspiration pneumonia. Her hospital course was complicated by septic shock with anemia, hemoglobin down to 6.7; moderate protein-calorie malnutrition with dysphagia; high risk of aspiration; cognitive decline, and short-term memory loss. Despite these, no significant concerns, she was discharged to a skilled facility on 02/27. At the skilled facility, she received maximal therapy, continued to require substantial assistance and functionally did not thrive. She now requires moderate assistance for showers, moderate to max assistance for toileting, minimum assistance for lower body dressing, maximum assistance for donning and doffing footwear. She requires ongoing speech due to dysphasia, cognitive impairment, and difficulty with simple conversations. She requires physical therapy. At this point, she is standby assistance to contact guard assistance for bed mobility, transfers, ambulation with a rolling walker. Prior to her illness and hospitalization, Ms. Robison was independent performing all activities of daily living without difficulty without assistive device. However, given her significant decline and multiple comorbid conditions, anemia, malnutrition, risk of aspiration, infection, potential sepsis, and pulmonary embolus, she is found to be an appropriate candidate for aggressive inpatient rehabilitation where she will have 24 hours care and supervision by nursing and physician evaluation and will have therapy to improve her condition. She does require cardiopulmonary monitoring, nutrition optimization, and monitoring for blood sugar levels. Furthermore, wounds need to be monitored. This will be done while she is in intensive physical, occupational, and speech therapy for returning her to her prior level of functioning and reduce risk of hospitalization. Allergies: VACCINE, OTEZLA, ABILIFY, SEROQUEL, SULFA, AND H1N1 VACCINE. Current Medications: Tylenol 325 mg every 6 hours as needed, Augmentin 875/125 mg twice daily, Eliquis 2.5 mg twice daily, buspirone 15 mg twice daily, Tums 500 mg 4 times daily as needed, B12 1000 mcg daily, doxepin at bedtime, Walton 10/325 every 6 hours, Atrovent 0.5 mg nebulizer every 6 hours, Synthroid 0.1 mg daily, magnesium oxide 400 mg twice daily, melatonin 3 mg at bedtime, Robaxin 500 mg 3 times daily, Lopressor 25 mg twice daily, Zyprexa 7.5 mg daily, Protonix 40 mg daily, GlycoLax 17 g daily, Lyrica 100 mg twice daily, Senokot S 2 at bedtime, Kenalog cream apply topically to wound twice daily. Laboratory Studies: White blood cell count 3.0, hemoglobin 9.2, platelets are 196. Sodium 143, potassium 3.1, chloride 111, carbon dioxide 29, BUN 5, creatinine 0.57, glucose 81, calcium 7.9. Magnesium 1.8. Albumin 1.7, prealbumin 16.5. Urinalysis from the completely normal. X-ray/imaging: A chest x-ray done today shows ill-defined right basilar opacity, could reflect atelectasis and/or consolidation suggesting 4-6 week followup to ensure resolution. Also, chronic changes including emphysema and scarring noted. Family History: Noncontributory. Social History: No alcohol, tobacco, or IV drug use. Lives with family in single family home. Review of Systems: Mild shortness of breath. Some mild surgical site pain. No fevers or chills. No nausea or vomiting. Mild swelling, but no significant edema in the lower extremities. Current Level Of Functioning: Currently, she is supervision for eating and grooming; moderate assistance for bathing; independent for upper body dressing; moderate assistance for lower body dressing and donning and doffing of footwear; supervision for transferring from bed to chair, to wheelchair, and to toilet; supervision for ambulation of 200 feet with a rolling walker and wheelchair 15 feet with moderate assistance required. Physical Examination: Vital Signs: Blood pressure 116/57, pulse of 82, respiratory rate 16, temperature 98, oxygen saturation 93%. Pain level around 5. Weight 117 pounds, height 5 feet 5 inches, BMI 19.5. General: Ms. Robison is resting comfortably, is in no significant distress. HEENT: Normocephalic, atraumatic. Sclerae anicteric. Oropharynx moist. Neck: Supple. Good air movement. Abdomen: Soft. Extremities: She has marked bilateral ulnar deviation for advanced rheumatoid arthritis. No significant edema, cyanosis, or clubbing. Surgical sites with good hemostasis. Rehab And Medical Assessment And Plan: Ms. Robison is a 69-year-old patient admitted to the inpatient rehabilitation unit with impairment category 20, miscellaneous. Impairment group code is 16, debility. Etiologic diagnoses gangrene and necrosis of the lungs. In addition, she has comorbids, decreased mobility, decreased physical functioning, moderate pain. She is treated for pulmonary embolus and pneumonia along with sepsis. Also, has DVT prophylaxis along with the pulmonary embolus treatment as Eliquis 5 mg twice daily. She has Vitamin B12 for energy. She has doxepin for itching, Tums for upset stomach, Synthroid for hypothyroidism, Prinivil for blood pressure control, melatonin for insomnia, Robaxin for muscle spasms, Lopressor for heart rate and blood pressure control, Protonix for GE reflux. She has Lyrica for neuropathic pain. Kenalog cream to apply to wound twice daily. She has Senokot for constipation. In addition, her decreased mobility and decreased mental functioning as noted. In terms of her plan, she will have physical, occupational, and speech therapy 3.5 hours, 5-7 days. She will have her comorbid conditions, which have been noted and medications also noted will be continued. She will have incentive spirometry and SCDs as appropriate along with abdominal binder. If she has orthostatic changes, will have clonidine 0.1 mg every 6 hourly, blood pressure greater than 170 and that will be every 4 hours. Rehab Specific Plan: Ms. Robison will have physical, occupational, and speech therapy 3.5 hours, 5 of 7 days to improve her ability to transfer from bed to a chair, to a wheelchair, to a toilet on and off and in and out of shower, to dress upper and lower body, donning and doffing footwear, to mobilize more than household distances, and perform cognitive functioning and safety awareness and medication management. Ms. Robison has a good understanding of the process of admission to the inpatient rehabilitation unit and how she will be benefit from physical, occupational, and speech therapy. She will have 24 hours a day, 7 days a week skilled rehabilitation and nursing, daily physician evaluation and management, and clinical social worker evaluation and management for discharge planning, home equipment, and to continue therapy after discharge. If need be, the pulmonary service, hospitalist service, and cardiology service will be consulted. Barriers To Discharge: She has had multiple comorbid conditions, pulmonary embolus including possibility of pneumonia, sepsis, so those will be carefully watched for. These may require extended stay, but at this point, patient should be able to do well and thrive in inpatient rehabilitation, go back home to continue therapy via Home Health. Length Of Stay: About 2 weeks. Disposition: Expected to be back home to continue therapy via Home Health. Prognosis: Fair. Code Status: Full. Rehab Specific Plan: 1. Become independent with upper and lower body dressing and donning and doffing footwear. 2. Independently perform all activities of daily living. 3. Independently mobilize a wheelchair 200 feet, rolling walker 250 feet, and up and down 10 steps with bilateral hand rails. 4. To be able to perform cognitive functioning independently, manage all medications, physician followup. The above goals were reviewed with Ms. Robison and she is in agreement. By signing this document, I acknowledge I personally performed a full physical examination on Ms. Robison no later than 24 hours after her admission to the inpatient rehabilitation unit and determined that she is able to tolerate the above course of treatment at an intensive level for reasonable period of time. A detailed individualized plan of care for her will be completed by hospital day 4 based on the preadmission screen, history and physical, and therapy evaluations. ABDI Voice ID: [id number] JORGE
--- NOTE | 2025-03-12 07:58 | RAD REPORT ---
EXAM: XR of the abdomen HISTORY: Abdominal pain r/o constipation COMPARISON: None FINDINGS: XR of the abdomen shows a moderate amount of stool retained throughout the colon.. No bowel obstruction. No suspicious calcifications are seen. Cholecystectomy clips. Moderate levoscoliosis of lumbar spine. Left hip arthroplasty. IMPRESSION: Moderate constipation.
[2025-03-12] MEDS: POLYETHYL GLY 3350 17 GM/DOSE PO PRN (08:12)
[2025-03-12] MEDS: DOCUSATE NA/SENNA CONC 1 TAB PO SCH (08:12)
[2025-03-12] MEDS: MAGNESIUM CITRATE 300 ML BOT PO SCH (14:00)
[2025-03-12] MEDS: ACETAMINOPHEN 325 MG TABLET PO PRN (18:26)
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
[2025-03-13] MEDS: PANTOPRAZOLE 40MG TABLET PO SCH (07:20)
[2025-03-13] MEDS: ONDANSETRON 4 MG (ODT) TAB PO PRN ×2 (09:39→17:30)
[2025-03-13] MEDS: CYANOCOBALAMIN 1000MCG/ML INJ SQ ONE (14:23)
[2025-03-13] MEDS: BISACODYL E.C. 5 MG TAB PO PRN (14:52)
[2025-03-13] MEDS: MAGNESIUM CITRATE 300 ML BOT PO SCH (17:00)
[2025-03-13] MEDS: PROMETHAZINE INJ 25 MG/ML AMP IM PRN (19:57)
--- NOTE | 2025-03-14 00:26 | PN ---
Date of Progress Note: 03/13/2025 Time Of Service: 1:20. Subjective: Ms. Robison is mobilizing on the unit with physical therapist, ambulating well. The pa franciscant again yesterday did slide down to the floor and no injury. She said did not feel any pain in a ny part of her body which she has had before. Objective: No fevers, chills, nausea, vomiting, myalgias, arthralgias. Still has significant rheuma toid arthritis in both scans was marked ulnar deviation making very difficult to close the hand, but she is still able to hold on to a rolling walker and mobilize. Physical Examination: Vital Signs: Blood pressure 141/67, pulse 81, respiratory rate 18, temperature 97.6, oxygen saturati on 91%. General: Ms. Robison resting comfortably, in no significant distress. As noted she has marked ulna r deviation bilaterally and she has no significant focal deficits, is excited in terms of her therapy and recovery. Laboratory Studies: No new laboratory studies. X-rays and imaging, no new x-rays or imaging. Medications: Have been reviewed and are unchanged. Progress Made With Physical, Occupational, And Speech Therapy: With physical therapy today, she did multiple tnzlsw-cz-ryg transfers independently, multiple ynd-lb-egjul transfers independently, simula daksha car transfer done independently. She ambulated 500 feet, 165 feet twice and 650 with standby ass istance. Able to ascend and descend 15 steps with bilateral handrails with standby assistance. With occupational therapy, independent with upper body dressing, contact required for lower body dressing . She was independent for ambulation with a rolling walker from room to shower and to tub e. With speech able to recall 4 of 4 unrelated items after 3 minutes delay and minimum assistance. However, problem-solving skills were at 90% accurate with minimum assistance. She was independent fo r organized thinking activity at 100% accuracy. Assessment: Ms. Robison is a 69-year-old patient in rehabilitation unit with gangrene and necrosis of the lungs. She has done very well with very little with any decreased mobility and physical funct ioning. She has hypertension and risk of deep vein thrombus, slight pulmonary embolus and also hypot hyroidism, hypertension, muscle spasms, severe rheumatoid arthritis and was on multimodality pain med ications. Her plans continue with physical and occupational therapy and speech therapy while she is in the hospital. She will continue with her comorbid condition, medications reviewed and noted after discharge. Recommended the patient continue therapy via Home Health and it is likely to be a very _ for her to be able to outpatient facility, therapy strongly recommended to be continued. ABDI Voice ID: [id number] Report ID: [id number]
[2025-03-14 04:53] LABS: Absolute Lymphocytes (CBC) 1.4 K/uL (0.7-4.9); Hematocrit 30.0 % (36.0-45.0); Hemoglobin 10.0 g/dL (12.0-15.0); MCH 29.5 pg (27.0-35.0); MCHC 33.3 g/dL (32.0-36.0); MCV 88.6 fL (80-100); MPV 7.6 fL (7.6-11.3); Nucleated RBC Absolute Count 0.0 (0-0); Nucleated Red Blood Cells % 0.2 % (0-0); RBC Red Blood Cell Count 3.39 M/uL (3.86-4.86); White Blood Count 3.70 thou/uL (4.3-10.9)
[2025-03-14 05:09] LABS: Anion Gap 6.1 mEq/L (5.0-15.0); BUN Blood Urea Nitrogen 8.0 mg/dL (7-18); Glucose Level 91.0 mg/dL (74-106); Potassium 4.1 mEq/L (3.5-5.1)
[2025-03-14 05:17] LABS: Albumin 1.9 g/dL (3.4-5.0); Magnesium 2.2 mg/dL (1.6-2.4); Prealbumin 15.4 mg/dL (20-40)
--- NOTE | 2025-03-15 02:07 | PN ---
Date of Progress Note: 03/14/2025 Time Of Service: 1:15. Subjective: Ms. Robison is doing very well, mobilizing well in the unit. No recent falls aside fro m as mentioned previously. She is so far happy with her therapy and happy with her progress. Objective: No fevers, chills, nausea, vomiting. Still has of course significant ulnar deviation fro m her rheumatoid arthritis. Physical Examination: Vital Signs: Blood pressure is 157/72, pulse 76, respirations 17, temperature 97.6, oxygen saturatio n 95%. General: Ms. Robison is mobilizing well in the unit. She was noted to mobilize in the room with th e rolling walker. HEENT: Normocephalic, atraumatic. Sclerae anicteric and marked deviation of both the fingers of the ulnar side, but she is still able to hold onto the rolling walker and to mobilize. Laboratory Studies: White blood cell count 3.7, hemoglobin 10.0, platelets 144. Sodium 140, potassi um 4.1, chloride 107, carbon dioxide 31, BUN 8, creatinine 0.62, glucose 91, calcium 7.9. Medications: Have been reviewed and are unchanged. X-ray/imaging: There were no x-rays or imaging done in the last day. Progress Made With Physical, Occupational, And Speech Therapy: With physical therapy today, she did perform jbiwhi-qh-taw transfers independently, multiple eakoa-vd-nwtad transfers independently. She ambulated 250 feet independently with a rolling walker and mobilized a wheelchair 250 feet twice in t he home. With occupational therapy, she was independent with wheelchair to edge of bed transfers and also able to get into a supine position. With her speech, she was planning on having a modified bar ium study, but it was canceled pertaining to her request as she is not feeling well, had nausea. She was able to recall 80% of a passage presented to her with moderate assistance. She recalled 4/4 unr elated items after 1 minute, but only 2/4 after 2 minutes. Assessment And Plan: Ms. Robison is a 69-year-old patient in rehabilitation unit with gangrene and necrosis of the lungs, was doing very well with her physical and occupational therapy. Still awaitin g a modified barium swallow study. Otherwise, her comorbidities are well controlled. Pain is manage d. She has DVT risk and stroke risk management, Eliquis, blood pressure control with Norvasc, and sh barb has Lyrica for neuropathic pain, Kenalog cream for topical fungal infection, Senokot for constipati on. She had some nausea that is improved with Phenergan and Zofran. Plan will be physical, occupati onal, and speech therapy 3.5 hours, 5 of 7 days, and to do a modified barium swallow nause a is improved. Plan again to go home to continue therapy with home health within a week. RAMA/AMARI Voice ID: [id number] Report ID: [id number]
[2025-03-15] MEDS: DULOXETINE 20 MG CAP PO SCH (08:13)
[2025-03-15] MEDS: NALOXONE 0.4 MG/ML VIAL IM ONE (12:13)
[2025-03-15 13:07] LABS: Blood O2 Saturation 95.8 % (92.0-98.5)
[2025-03-15 13:08] LABS: Arterial Blood Carboxyhemoglob 2.4 % (0.0-1.5); Blood Gas Inspired Oxygen 21.0 %; Blood Gas Oxyhemoglobin 93.1 % (94.0-97.0)
--- NOTE | 2025-03-15 13:31 | P.RH.PN ---
Estimated Length of Stay: 9 Expected Discharge Date: 03/19/25 Discharge Disposition Plan: Home Family Support: Yes [employer] Area Supervisor Goal: Mobility, Transfers, Self Care Vital Signs: Last Vital Signs Temp 98.1 F 03/15/25 07:52 Pulse 76 03/15/25 08:15 Resp 16 03/15/25 09:19 BP 150/68 H 03/15/25 08:15 Pulse Ox 92 03/15/25 09:19 Laboratory: Laboratory Last Values WBC 3.70 thou/uL (4.3-10.9) L 03/14/25 04:26 RBC 3.39 M/uL (3.86-4.86) L 03/14/25 04:26 Hgb 10.0 g/dL (12.0-15.0) L 03/14/25 04:26 Hct 30.0 % (36.0-45.0) L 03/14/25 04:26 MCV 88.6 fL (80-100) 03/14/25 04:26 MCH 29.5 pg (27.0-35.0) 03/14/25 04:26 MCHC 33.3 g/dL (32.0-36.0) 03/14/25 04:26 RDW 24.0 % (12.1-15.2) H 03/14/25 04:26 Plt Count 144 thou/uL (152-406) L 03/14/25 04:26 MPV 7.6 fL (7.6-11.3) 03/14/25 04:26 Neutrophils % 46.5 % (41.7-73.7) 03/14/25 04:26 Lymphocytes % 39.3 % (15.3-44.8) 03/14/25 04:26 Monocytes % 13.5 % (3.3-12.3) H 03/14/25 04:26 Eosinophils % 0.7 % (0-4.4) 03/14/25 04:26 Basophils % 0.0 % (0-1.3) 03/14/25 04:26 Absolute Neutrophils 1.7 K/uL (1.8-8.0) L 03/14/25 04:26 Absolute Lymphocytes 1.4 K/uL (0.7-4.9) 03/14/25 04:26 Absolute Monocytes 0.5 K/uL (0.1-1.3) 03/14/25 04:26 Absolute Eosinophils 0.0 K/uL (0-0.5) 03/14/25 04:26 Absolute Basophils 0.0 K/uL (0-0.5) 03/14/25 04:26 Platelet Estimate Adeq 03/11/25 05:55 Anisocytosis 3+ 03/11/25 05:55 Morphology Comment Noted (NOT SEEN) 03/11/25 05:55 pH 7.42 (7.35-7.45) 03/15/25 11:40 pCO2 41 mmHg (35-45) 03/15/25 11:40 pO2 78 mmHg (75-100) 03/15/25 11:40 HCO3 26.6 mmol/L (22.0-28.0) 03/15/25 11:40 Base Excess 2.1 mmol/L (-2.0-3.0) 03/15/25 11:40 Oxyhemoglobin 93.1 % (94.0-97.0) L 03/15/25 11:40 ABG O2 Sat (Measured) 95.8 % (92.0-98.5) 03/15/25 11:40 ABG Carboxyhemoglobin 2.4 % (0.0-1.5) H 03/15/25 11:40 ABG Methemoglobin 0.8 % (0.0-1.5) 03/15/25 11:40 Other Total Hgb 10.8 g/dL (12.0-18.0) L 03/15/25 11:40 Inspired O2 21.0 % 03/15/25 11:40 Sodium 140 mEq/L (136-145) 03/14/25 04:26 Potassium 4.1 mEq/L (3.5-5.1) 03/14/25 04:26 Chloride 107 mEq/L (98-107) 03/14/25 04:26 Carbon Dioxide 31 mEq/L (21-32) 03/14/25 04:26 Anion Gap 6.1 mEq/L (5.0-15.0) 03/14/25 04:26 BUN 8 mg/dL (7-18) 03/14/25 04:26 Creatinine 0.62 mg/dL (0.55-1.02) 03/14/25 04:26 Est GFR (CKD-EPI) 96 ml/min (=/>90) 03/14/25 04:26 Glucose 91 mg/dL (74-106) 03/14/25 04:26 Calcium 7.9 mg/dL (8.5-10.1) L 03/14/25 04:26 Magnesium 2.2 mg/dL (1.6-2.4) 03/14/25 04:26 Albumin 1.9 g/dL (3.4-5.0) L 03/14/25 04:26 Prealbumin 15.4 mg/dL (20-40) L 03/14/25 04:26 Urine Color Light-yellow (Yellow) 03/10/25 21:00 Urine Clarity Clear (Clear) 03/10/25 21:00 Urine pH 7.0 (5.0-7.0) 03/10/25 21:00 Ur Specific Lang[place] 1.011 (1.005-1.030) 03/10/25 21:00 Glucose (UA)(Auto) Negative (Negative) 03/10/25 21:00 Urine Ketones Negative (Negative) 03/10/25 21:00 Urine Blood Negative (Negative) 03/10/25 21:00 Urine Nitrite Negative (Negative) 03/10/25 21:00 Urine Bilirubin Negative (Negative) 03/10/25 21:00 Urine Urobilinogen Normal (Normal) 03/10/25 21:00 Ur Leukocyte Esterase Negative Tova/uL (Negative) 03/10/25 21:00 Urine Total Protein Negative (Negative) 03/10/25 21:00 Smear Scan Ok (OK) 03/11/25 05:55 Weight: 117 lb Wound Present: No Closed Surgical Incision Present: No Negative Pressure Wound Therapy Present: No Physician Update: Labs reviewed and are stable. She apparently took an extra [employer] today plus the scheduled 10/325 mg and became very sleepy. She received Narcan with symptom reversal. BIMS 15, SLUMS 28. With PT independent with RW 500', WC 250' x 2 yesterday. Independent with ADLs. Summary: Patient's care plan and long goods drier goals have been reviewed and revised as necessary. Please see the Rehabilitation Signature page for all necessary signatures.
[2025-03-16 05:07] VITALS: BMI 18.3
[2025-03-16 09:18] LABS: Sqamous Epithelial <5 /HPF (None Seen); Urine Crystals Unidentified Few /HPF (None Seen); Urine Culture Reflex Order NOT NEEDED; Urine Microscopic Reflex YN ORDER UMIC; Urine WBC Clump Rare /HPF (None Seen); Urine Yeast (Budding) Trace /HPF (None Seen)
[2025-03-16] MEDS: APREMILAST 30 MG PO SCH (19:17)
[2025-03-18 05:33] LABS: Hematocrit 26.0 % (36.0-45.0); Hemoglobin 8.7 g/dL (12.0-15.0); MCH 30.7 pg (27.0-35.0); MCHC 33.7 g/dL (32.0-36.0); MCV 91.1 fL (80-100); MPV 7.6 fL (7.6-11.3); RBC Red Blood Cell Count 2.85 M/uL (3.86-4.86); White Blood Count 3.50 thou/uL (4.3-10.9)
[2025-03-18 05:34] LABS: Absolute Lymphocytes (CBC) 1.4 K/uL (0.7-4.9); Nucleated RBC Absolute Count 0.0 (0-0); Nucleated Red Blood Cells % 0.2 % (0-0)
[2025-03-18 05:57] LABS: Albumin 1.8 g/dL (3.4-5.0); Anion Gap 7.1 mEq/L (5.0-15.0); BUN Blood Urea Nitrogen 8.0 mg/dL (7-18); Glucose Level 86.0 mg/dL (74-106); Magnesium 2.1 mg/dL (1.6-2.4); Potassium 4.1 mEq/L (3.5-5.1); Prealbumin 13.8 mg/dL (20-40)
--- NOTE | 2025-03-19 01:39 | PN ---
Date of Progress Note: 03/18/2025 Time: 1:15. Subjective: Ms. Robison is mobilizing well. She is ambulating around the unit. Going outside as w ell with a rolling walker . She is feeling very good about her therapy so far. She has no new complaints today. Objective: No fevers, chills, nausea, or vomiting. Rheumatoid arthritis with ulnar deviation at bot h hands, but still can hold the walker and mobilize. Physical Examination: Vital Signs: Blood pressure 129/63, pulse 85, respiratory rate 18, temperature 97.2, oxygen saturati on 94%. General: Ms. Robison is standing, using a rolling walker, mobilizing in the unit. HEENT: She appears normocephalic, atraumatic. She does have ortho changes as noted above in her tomas ds. LUNGS: She is oxygenating well despite the gangrene and necrosis of lungs. She is ready for discharge in the morning. Laboratory Studies: White blood cell count 3.5, hemoglobin 8.7, platelets 117. Sodium 141, potassiu m 4.1, chloride 110, carbon dioxide 28, BUN 8, creatinine 0.5, glucose 86, calcium 8.1, magnesium 2.1 , albumin 1.8, prealbumin 13.8. X-ray imaging, no new x-rays or imaging. Medications: Have been reviewed and are unchanged. Therapy: For physical therapy, she did multiple xqmafo-nl-vtu transfers independently, and multiple ueg-sy-uhjch transfers independently, qgyxl-nc-oadlt transfers also done independently, simulated car transfer was done independently. She ambulated 250 feet twice and 500 feet twice independently with a rolling walker. She was up and down 15 steps with bilateral handrails independently. With occupa tional therapy, supervision for verbal cues for using a catheter bag which patient actually does have . It was noted that over the weekend, she had urinary retention after trying to void. She did have about 900 cc of urine retained and she does have a Mckeon in place. She is to be followed up by the rologist Dr. Robert Ramirez, regarding urinary retention for further evaluation and management. Bello kenzie, she will be going home short-term with that. In the past, she did apparently do self-catheteriz ations. She may resume that until she is following up with the urologist. Regarding speech, she rec alled 4/4 unrelated items after 2 minutes with moderate assistance. She for problem tucker ng, had 100% accuracy, required moderate assistance to recall passages details with 70% accuracy. Or ganized thinking skill done with a 100% accuracy and independently. Assessment And Plan: Ms. Robison is a 69-year-old patient, admitted in rehabilitation unit with sandra grene and necrosis of the lungs. She is much improved, very little, in terms of decreased mobility a nd decreased physical functioning. Still has rheumatoid arthritis with ulnar deviation, completing a moxicillin clavulanic acid 875 mg twice daily from 03/10/25 to 04/05/25, Eliquis 5 mg twice daily. S he has Norvasc, [place] from home, and she will continue that. She also has B12 on board, Tums for ref lux, and doxepin as an antipruritic that is anti-itch and for sleep. She has Cymbalta for depression , levothyroxine onboard for hypothyroidism, lisinopril and metoprolol for blood pressure control. Sh barb has Phenergan for nausea, Lyrica for neuropathic pain. Plan is to continue therapy until her disch arge which will be tomorrow and she will be continuing therapy with home health, following up with he r primary care physician for comorbid conditions. RAMA/AMARI Voice ID: [id number] Report ID: [id number]
[2025-03-19 06:54] VITALS: BP 153/70; TEMP 97.6
--- NOTE | 2025-04-15 00:02 | DS ---
Date of Discharge: 03/19/2025 Allergies: FLU VACCINE, APREMILAST, SEROQUEL, SULFA ANTIBIOTICS, H1N1 VACCINE. Diagnoses: Gangrene, necrosis of the lungs, decreased mobility, decreased physical functioning, pulm onary embolus, pneumonia, and sepsis. Condition: Fair. Activity: Weightbearing as tolerated. Diet: Heart healthy. Medications: Otezla 30 mg twice daily, Robaxin 500 mg 3 times daily, Prinivil 1 tablet daily, triamc inolone cream applied topically daily as needed, Senna-S 1 at bedtime, pregabalin 1 capsule twice altaf ly, omeprazole 20 mg daily, Zyprexa 7.5 mg daily, metoprolol 1 tablet twice daily, Synthroid 100 mcg daily, [place] 10/325 one tablet every 6 hours as needed, doxepin 150 mg daily, buspirone 50 mg twice d aily, Aerosphere inhaler 2 puffs twice daily, Eliquis 5 mg twice daily, duloxetine 20 mg daily, Tylen ol 325 mg every 6 hours as needed. Laboratory Studies: White blood cell count 2.9, hemoglobin 8.7, platelets 117. Arterial blood gas f rom 03/15 shows pH 7.42, pCO2 41, pO2 78, HC03 26.6. Sodium 141, potassium 4.1, chloride 110, carbon dioxide 28, BUN 8, creatinine 0.5, glucose 86, calcium 8.1, magnesium 2.1, albumin 1.8, prealbumin 1 3.8. Urinalysis from 03/16/2025 shows turbid clarity, trace budding yeast, otherwise unremarkable. X-ray/imaging: A KUB x-ray on 03/12/2025 showed moderate constipation. Chest x-ray from 03/11/2025 showed ill-defined right basilar opacity, could reflect atelectasis or consolidation. Chronic change s include emphysema and scarring. Synopsis Of Events That Led To Admission: Ms. Robison is a 69-year-old patient, who was in January with right lower lobe pneumonia. She had an embolism and necrotizing area of a large loculated rig ht pleural effusion. She did receive therapeutic Lovenox. Chest tube was placed and fluid cultures taken. She was initially started on linezolid. After the first round of the intrapleural tPA therap y, she developed hypotension that was refractory to IV fluids and midodrine. She required MICU trans meet and pressure support. She had 5 additional rounds of thrombolysis with tPA without recurrent hyp otension. She was eventually weaned off pressors. On February 28, she was transferred back to the [facility], completed her intrapleural therapy. Chest tube was removed without complications. She was see n by Infectious Disease, determined that the pleural fluid cultures represented a contamination. She was transitioned to Unasyn and then Zosyn due to concerns of aspiration pneumonia. Her hospital cou rse was further complicated by significantly low hemoglobin down to 6.7, moderate protein calorie mal nutrition, dysphagia, risk of aspiration, cognitive decline with short-term memory loss. She did go to skilled and received maximal therapy. Continued to require substantial assistance and functionall y did not thrive. As a result, she required moderate assistance for showering, moderate to maximum a ssistance for toileting and lower body dressing, maximal assistance for donning and doffing footwear. As a result, she was determined to be a good candidate for aggressive inpatient rehabilitation, whe re she would have her comorbid conditions addressed and have physical and occupational therapy as nee ded. Hospital Course: During hospitalization, she did well. White blood cell count did not elevate beyon d 3.7. Her hemoglobin remained stable. Arterial blood gas is essentially unremarkable. She did hav e a slight decrease in her free albumin from protein malnutrition from 16.5 to 13.8 prealbumin. Did have a mildly low albumin of 1.8. Urinalysis unremarkable and urine cultures were negative. Progress Made With Physical, Occupational, And Speech Therapy: At her discharge regarding physical t herapy, she ambulated 500 feet within functional limits, using a rolling walker. She was up and down 15 steps with good safety awareness and mobilized wheelchair 250 feet without significant difficulty . She did meet all of her long-term and 5 of 6 short-term goals. She completed gait training for 50 0 feet with a Rollator independently as noted. With occupational therapy at discharge, she was able to do toilet transfer with contact guard supervision, tub and shower transfers supervision, eating in dependent, grooming independent. Supervision for showering, lower body dressing is at a minimum assi stance level. Supervision for toileting tasks. She was discharged home to continue therapy via home health and durable medical equipment needs were met. With speech, she was independent for attention , memory, pragmatics, comprehension. Her expression independent as well. Intelligibility was 100%. She scored 15/15 on the BIMS and 20/30 on the SLUMS, indicating no significant cognitive impairment and she will follow up with primary care physician as scheduled in addition to the Pulmonology Servic e and Hematology/Oncology. RAMA/AMARI Voice ID: [id number] Report ID: [id number]
== END 2025-03-19 14:26 | disposition home health service (06) | DRG 947 ==
LOC: 5TH 13:33
PROVIDERS: ADMIT Psychiatry & Neurology Neurology with Special Qualifications in Child Neurology; ATTEND Psychiatry & Neurology Neurology with Special Qualifications in Child Neurology
DX: R53.81 Other malaise (principal); I26.99 Other pulmonary embolism without acute cor pulmonale; J85.0 Gangrene and necrosis of lung; E44.0 Moderate protein-calorie malnutrition; Z68.1 Body mass index [BMI] 19.9 or less, adult; R47.02 Dysphasia; R13.10 Dysphagia, unspecified; M62.838 Other muscle spasm; M06.842 Other specified rheumatoid arthritis, left hand; M06.841 Other specified rheumatoid arthritis, right hand; G31.84 Mild cognitive impairment of uncertain or unknown etiology; E03.9 Hypothyroidism, unspecified; I10 Essential (primary) hypertension; G47.00 Insomnia, unspecified; K21.9 Gastro-esophageal reflux disease without esophagitis; R11.0 Nausea; K59.00 Constipation, unspecified; J44.9 Chronic obstructive pulmonary disease, unspecified; L40.50 Arthropathic psoriasis, unspecified; D64.9 Anemia, unspecified; J43.9 Emphysema, unspecified; B36.9 Superficial mycosis, unspecified; R33.9 Retention of urine, unspecified; F32.A Depression, unspecified; Z99.81 Dependence on supplemental oxygen; Z79.01 Long term (current) use of anticoagulants
CPT/HCPCS: 36415; 36600; 71045; 74018; 80048; 81001; 81003; 82040; 82805; 83735; 84134; 85025; 92523; 94640; 97110; 97112; 97116; 97129; 97162; 97165; 97530; 97542; J2312; J2550; J3420; J7644; Q0162

== ENCOUNTER 2025-04-30 09:15 | Observation (INO) | payer OTHER ==
--- OUTSIDE RECORDS SUMMARY | 2025-04-30 09:18 | XMS REPORT | Clinical Summary ---
Author Name Unknown Organization 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
[2025-04-30 10:25] LABS: Absolute Lymphocytes (CBC) 0.8 K/uL (0.7-4.9); Hematocrit 32.3 % (36.0-45.0); Hemoglobin 10.7 g/dL (12.0-15.0); MCH 28.3 pg (27.0-35.0); MCHC 32.9 g/dL (32.0-36.0); MCV 85.8 fL (80-100); MPV 8.2 fL (7.6-11.3); Nucleated RBC Absolute Count 0.0 (0-0); Nucleated Red Blood Cells % 0.0 % (0-0); RBC Red Blood Cell Count 3.77 M/uL (3.86-4.86); White Blood Count 7.30 thou/uL (4.3-10.9)
[2025-04-30 10:46] LABS: ALT/SGPT 21 U/L (13-56); AST/SGOT 13 U/L (15-37); Albumin 2.7 g/dL (3.4-5.0); Albumin/Globulin Ratio 0.8 (1.1-1.8); Alkaline Phosphatase 54 U/L (45-117); Anion Gap 6.0 mEq/L (5.0-15.0); BUN Blood Urea Nitrogen 12 mg/dL (7-18); Globulin 3.5 g/dL (2.3-3.5); Glucose Level 75 mg/dL (74-106); Magnesium 1.7 mg/dL (1.6-2.4); NT PRO-BNP 905 pg/mL (<125); Potassium 3.0 mEq/L (3.5-5.1); Troponin High Sensitivity 9.8 pg/mL (<58.9)
[2025-04-30 10:47] LABS: Bilirubin Indirect, Calculated 0.0 mg/dL (0.2-0.8)
--- NOTE | 2025-04-30 11:39 | RAD REPORT ---
Procedure: Chest Single View HISTORY: Shortness of breath COMPARISON: March 2025 FINDINGS: Mild bilateral pulmonary opacities. Lungs are mildly hyperaerated. No significant pleural effusion noted. The heart is normal size. IMPRESSION: Mild bilateral pulmonary opacities probably a combination of pneumonitis/pneumonia or interstitial pu lmonary edema superimposed over chronic changes.
--- NOTE | 2025-04-30 13:03 | ER ---
Nurse's Notes [facility] Name: Heidy Robison Age: 70 yrs Sex: Female : 1955 Arrival Date: 04/30/2025 Time: 09:15 Bed 20 Private MD: Diagnosis: Heart failure, unspecified;Shortness of breath Presentation: 04/30 09:24 Chief complaint: EMS states: "pt experiencing shortness of breath even after use of zm inhaler and at home oxygen administration of 2LPM". Coronavirus screen: Vaccine status: Patient reports receiving the 2nd dose of the covid vaccine. Client denies travel out of the [place] in the last 14 days. At this time, the client does not indicate any symptoms associated with coronavirus-19. Ebola Screen: Patient denies travel to an Ebola-affected area in the 21 days before illness onset. No symptoms or risks identified at this time. Initial Sepsis Screen: Does the patient meet any 2 criteria? No. Patient's initial sepsis screen is negative. Does the patient have a suspected source of infection? No. Patient's initial sepsis screen is negative. Risk Assessment: Do you want to hurt yourself or someone else? Patient reports no desire to harm self or others. Onset of symptoms was April 30, 2025 at 08:30. 09:24 Method Of Arrival: EMS: [facility] 09:24 Acuity: ADELE 3 zm Triage Assessment: 09:28 General: Appears in no apparent distress. comfortable, Behavior is calm, cooperative. zm Pain: Complains of pain in generalized chronic joint pain Pain currently is 6 out of 10 on a pain scale. Is chronic. EENT: No signs and/or symptoms were reported regarding the EENT system. Neuro: Level of Consciousness is awake, alert, obeys commands, Oriented to person, place, time, situation. Cardiovascular: Denies chest pain, Patient's skin is warm and dry. Respiratory: Reports shortness of breath at rest air hunger Airway is patent Respiratory effort is even, unlabored, Respiratory pattern is symmetrical, tachypnea Breath sounds are clear bilaterally. in right upper lobe, left upper lobe, left lower lobe and right lower lobe. GI: No signs and/or symptoms were reported involving the gastrointestinal system. : No signs and/or symptoms were reported regarding the genitourinary system. Derm: No signs and/or symptoms reported regarding the dermatologic system. Musculoskeletal: No signs and/or symptoms reported regarding the musculoskeletal system. Historical: - Allergies: : Sulfa (Sulfonamide Antibiotics); zm : Seroquel; zm : FLU VACCINE; zm Doxepin; zm Ambien CR; zm : Abilify; zm : apremilast; zm - PMHx: :28 4 bulging discs; Anxiety; COPD; CVA; Fibromyalgia; Depression; INFECTIOUS LUNG zm DISORDER; Lupus; RA; MAC; HTN; SEROTONIN SYNDROME; - PSHx: : c section; g bypass; Cholecystectomy; Tonsillectomy; hysterectomy; zm - Immunization history:: Adult Immunizations up to date. - Infectious Disease History:: Denies. - Social history:: Smoking status: Patient denies any tobacco usage or history of. Patient/guardian denies using alcohol, IV drugs. Screenin:36 Abuse screen: Denies threats or abuse. Denies injuries from another. Nutritional zm screening: No deficits noted. Tuberculosis screening: No symptoms or risk factors identified. 09:52 [facility] ED Fall Risk Assessment (Adult) History of falling in the last 3 months, zm including since admission Yes- fall prone (multiple falls) (3 pts) Confusion or Disorientation No (0 pts) Intoxicated or Sedated No (0 pts) Impaired Gait Yes (1 pt) Mobility Assist Device Used Yes (1 pt) Altered Elimination No (0 pt) Score/Fall Risk Level 3 or more points = High Risk Oriented to surroundings, Maintained a safe environment, Educated pt \\T\\ family on fall prevention, incl call for assistance when getting out of bed, Assessed \\T\\ reinforced patient's understanding of fall precautions, Hourly rounding (assess needs \\T\\ fall precautionary measures) done, Used ambulatory aids as needed (educated on \\T\\ assisted with), Used gait belt as appropriate Implemented a Fall Risk Plan of Care, Remained w/in arm's length of patient and in sight while toileting, Offered frequent toileting (1:1 observation), Remained with patient while ambulating. Assessment: 09:35 Reassessment: see triage assessment. zm 11:21 Reassessment: Patient appears in no apparent distress at this time. No changes from zm previously documented assessment. Patient and/or family updated on plan of care and expected duration. Pain level reassessed. Patient is alert, oriented x 3, equal unlabored respirations, skin warm/dry/pink. Patient states feeling better. Patient states symptoms have improved. 12:30 General: Appears in no apparent distress. comfortable, Behavior is calm. Respiratory: rg5 Reports shortness of breath Airway is patent Respiratory effort is even, unlabored. 13:27 Reassessment: No changes from previously documented assessment. Patient and/or family rg5 updated on plan of care and expected duration. Pain level reassessed. Patient is alert, oriented x 3, equal unlabored respirations, skin warm/dry/pink. 14:34 Reassessment: No changes from previously documented assessment. Patient and/or family rg5 updated on plan of care and expected duration. Pain level reassessed. Patient is alert, oriented x 3, equal unlabored respirations, skin warm/dry/pink. Vital Signs: 09:24 BP 152 / 76; Pulse 86; Resp 25; Temp 98; Pulse Ox 97% on 2 lpm NC; Weight 52.62 kg; zm Height 5 ft. 5 in. ; Pain 6/10; 11:23 BP 143 / 86; Pulse 79; Resp 19; Temp 98.1; Pulse Ox 100% on 2 lpm NC; zm 12:30 BP 142 / 78; Pulse 90; Resp 18; Pulse Ox 98% on 2 lpm NC; rg5 13:25 BP 149 / 71; Pulse 82; Resp 18; Pulse Ox 96% on 2 lpm NC; rg5 14:33 BP 153 / 83; Pulse 87; Resp 18; Pulse Ox 98% on 2 lpm NC; rg5 09:24 Body Mass Index 19.30 (52.62 kg, 165.1 cm) zm 09:24 Pain Scale: Adult zm Satnam Coma Score: 11:23 Eye Response: spontaneous(4). Motor Response: obeys commands(6). Verbal Response: zm oriented(5). Total: 15. ED Course: 09:24 Patient arrived in ED. ll1 09:24 Jules Fregoso DO is Attending Physician. ms3 09:24 Rafia Layne, RN is Primary Nurse. zm 09:28 Triage completed. zm 09:28 Arm band placed on right wrist. zm 09:30 EKG done, by ED staff, reviewed by Jules Fregoso DO. 09:35 Patient has correct armband on for positive identification. Bed in low position. Call zm light in reach. Side rails up X2. Provided Education on: call light use. Client placed on continuous cardiac and pulse oximetry monitoring. NIBP monitoring applied. finance analyst on. Door closed. Noise minimized. Warm blanket given. Verbal reassurance given. 10:42 X-ray completed. Portable x-ray completed in exam room. Patient tolerated procedure mh1 well. 10:45 XRAY Chest (1 view) In Process Unspecified. EDMS 12:03 Report given to RORY Jiménez. 13:02 Wilfred Finch MD is Hospitalizing Provider. ms3 15:54 No provider procedures requiring assistance completed. Patient admitted, IV remains in rg5 place. intact, No redness/swelling at site. Administered Medications: 13:35 Drug: Furosemide IVP 20 mg IVP once; give over 2 minutes Route: IVP; Site: right rg5 forearm; 15:54 Follow up: Response: No adverse reaction 5 13:51 Drug: [place] PO 10 mg-325 mg 1 tabs PO once Route: PO; rg5 15:54 Follow up: Response: No adverse reaction rg5 Medication: 09:36 VIS not applicable for this client. Outcome: 13:03 Decision to Hospitalize by Provider. ms3 15:54 Admitted to 5 15:54 Condition: stable 15:54 Instructed on the need for admit, 15:54 Patient left the ED. 5 Signatures: Dispatcher [employer] EDMS Bere Jj 1 Karine Hanley, RN RN [facility] Jules Fregoso DO DO ms3 Rafia Layne, RORY RN Tino Keith RN RN 5 Corrections: (The following items were deleted from the chart) 09:35 09:24 BP 152 / 76; Pulse 86bpm; Resp 20bpm; Pulse Ox 97% 2 lpm Nasal Cannula; Temp 98F; zm 52.62 kg; Height 5 ft. 5 in.; BMI: 19.3; Pain 6/10, Adult; zm
--- NOTE | 2025-04-30 13:03 | EDPHYS ---
Physician Documentation [facility] Name: Heidy Robison Age: 70 yrs Sex: Female : 1955 Arrival Date: 04/30/2025 Time: 09:15 Bed 20 Private MD: ED Physician Jules Fregoso HPI: 04/30 09:40 This 70 yrs old Female presents to ER via EMS with complaints of shortness of ms3 breath. 09:40 70-year-old female with past medical history of chronic back pain, anxiety, COPD, CVA, ms3 fibromyalgia, depression, rheumatoid arthritis, hypertension presents to the emergency department via [facility] for shortness of breath. Patient states she is having 7/10 discomfort. Patient states her shortness of breath began approximate 30 minutes prior to calling EMS when she was walking from her recliner to her bed. Patient used her rescue inhaler and put herself on her home oxygen without relief. EMS notes patient's oxygen saturation 96% on 2 L. Historical: - Allergies: 09:28 Sulfa (Sulfonamide Antibiotics); zm 09:28 Seroquel; zm 09:28 FLU VACCINE; zm 09:28 Doxepin; zm 09:28 Ambien CR; zm 09:28 Abilify; zm 09:28 apremilast; zm - PMHx: :28 4 bulging discs; Anxiety; COPD; CVA; Fibromyalgia; Depression; INFECTIOUS LUNG zm DISORDER; Lupus; RA; MAC; HTN; SEROTONIN SYNDROME; - PSHx: 09:28 c section; g bypass; Cholecystectomy; Tonsillectomy; hysterectomy; zm - Immunization history:: Adult Immunizations up to date. - Infectious Disease History:: Denies. - Social history:: Smoking status: Patient denies any tobacco usage or history of. Patient/guardian denies using alcohol, IV drugs. ROS: 09:40 Constitutional: Negative for fever, and chills. Cardiovascular: Negative for chest ms3 pain, and palpitations. Abdomen/GI: Negative for abdominal pain, nausea, vomiting, diarrhea, and constipation, 09:40 Skin: Negative for injury, rash, and discoloration, 09:40 Respiratory: Positive for shortness of breath, Exam: 09:40 Constitutional: This is a well developed, well nourished patient who is awake, alert, ms3 and in no acute distress. Cardiovascular: Regular rate and rhythm with a normal S1 and S2. No gallops, murmurs, or rubs. Normal PMI, no JVD. No pulse deficits. Respiratory: Lungs have equal breath sounds bilaterally, clear to auscultation and percussion. No rales, rhonchi or wheezes noted. No increased work of breathing, no retractions or nasal flaring. Abdomen/GI: Soft, non-tender, with normal bowel sounds. No distension or tympany. No guarding or rebound. No evidence of tenderness throughout. Skin: Warm, dry with normal turgor. Normal color with no rashes, no lesions, and no evidence of cellulitis. MS/ Extremity: Pulses equal, no cyanosis. Neurovascular intact. Full, normal range of motion. 09:43 ECG was reviewed by the Attending Physician. ms3 Vital Signs: 09:24 BP 152 / 76; Pulse 86; Resp 25; Temp 98; Pulse Ox 97% on 2 lpm NC; Weight 52.62 kg; zm Height 5 ft. 5 in. ; Pain 6/10; 11:23 BP 143 / 86; Pulse 79; Resp 19; Temp 98.1; Pulse Ox 100% on 2 lpm NC; zm 12:30 BP 142 / 78; Pulse 90; Resp 18; Pulse Ox 98% on 2 lpm NC; rg5 13:25 BP 149 / 71; Pulse 82; Resp 18; Pulse Ox 96% on 2 lpm NC; rg5 14:33 BP 153 / 83; Pulse 87; Resp 18; Pulse Ox 98% on 2 lpm NC; rg5 09:24 Body Mass Index 19.30 (52.62 kg, 165.1 cm) 09:24 Pain Scale: Adult zm Sheridan Coma Score: 11:23 Eye Response: spontaneous(4). Motor Response: obeys commands(6). Verbal Response: oriented(5). Total: 15. MDM: 09:24 Medical Screening Exam initiated ms3 09:40 Differential diagnosis: Anemia Chronic Obstructive Pulmonary Disease Myocardial ms3 Infarction pulmonary edema. 16:28 Data reviewed: vital signs, nurses notes, lab test result(s), EKG, radiologic studies, ms3 and as a result, I will admit patient. Consideration of Admission/Observation Patient was admitted/placed on observation. Management of patient was discussed with the following: Hospitalist: . I considered the following discharge prescriptions or medication management in the emergency department Medications were administered in the Emergency Department. See MAR. Counseling: I had a detailed discussion with the patient and/or guardian regarding the historical points, exam findings, and any diagnostic results supporting the discharge/admit diagnosis, lab results, radiology results, the need for outpatient follow up, to return to the emergency department if symptoms worsen or persist or if there are any questions or concerns that arise at home. ED course: Discussed plan for admission with patient. Patient understands and agrees with plan. All questions were answered. Return precautions were discussed include worsening discussed plan with hospitalist team and they accept admission. 04/30 09:24 Order name: Basic Metabolic Panel; Complete Time: 11:04 ms3 04/30 09:24 Order name: CBC with Diff; Complete Time: 11:04 ms3 04/30 09:24 Order name: LFT's; Complete Time: 11:04 ms3 04/30 09:24 Order name: Magnesium; Complete Time: 11:04 ms3 04/30 09:24 Order name: NT PRO-BNP; Complete Time: 11:04 ms3 04/30 09:24 Order name: Troponin HS; Complete Time: 11:04 ms3 04/30 14:04 Order name: Basic Metabolic Panel EDMS 04/30 14:04 Order name: Basic Metabolic Panel EDMS 04/30 14:04 Order name: Basic Metabolic Panel EDMS 04/30 14:04 Order name: Basic Metabolic Panel EDMS 04/30 14:04 Order name: CBC with Automated Diff EDMS 04/30 14:04 Order name: CBC with Automated Diff EDMS 04/30 14:04 Order name: CBC with Automated Diff EDMS 04/30 14:04 Order name: CBC with Automated Diff EDMS 04/30 09:24 Order name: XRAY Chest (1 view); Complete Time: 12:56 ms3 04/30 09:24 Order name: EKG; Complete Time: 09:25 ms3 04/30 09:24 Order name: Cardiac monitoring; Complete Time: 09:36 ms3 04/30 09:24 Order name: EKG - Nurse/Tech; Complete Time: 09:30 ms3 04/30 09:24 Order name: IV Saline Lock; Complete Time: 10:20 ms3 04/30 09:24 Order name: Labs collected and sent; Complete Time: 10:20 ms3 04/30 09:24 Order name: O2 Per Protocol; Complete Time: 09:36 ms3 04/30 09:24 Order name: O2 Sat Monitoring; Complete Time: 09:37 ms3 EC:43 Rate is 84 beats/min. Rhythm is regular. QRS Drury is Normal. MD interval is normal. QRS ms3 interval is normal. Clinical impression: Normal ECG. Interpreted by me. Reviewed by me. Administered Medications: 13:35 Drug: Furosemide IVP 20 mg IVP once; give over 2 minutes Route: IVP; Site: right rg5 forearm; 15:54 Follow up: Response: No adverse reaction rg5 13:51 Drug: Lena PO 10 mg-325 mg 1 tabs PO once Route: PO; rg5 15:54 Follow up: Response: No adverse reaction rg5 Disposition Summary: 04/30/25 13:03 Hospitalization Ordered Notes: Hospitalization Status: Inpatient Admission ms3 Provider: Wilfred Finch ms3 Location: Telemetry/[facility] (Inpatient) ms3 Condition: Stable ms3 Problem: new ms3 Symptoms: are unchanged ms3 Bed/Room Type: Standard ms3 Room Assignment: 210(04/30/25 14:24) bd Diagnosis - Heart failure, unspecified ms3 - Shortness of breath ms3 Forms: - Medication Reconciliation Form ms3 - SBAR form ms3 - Leadership Thank You Letter ms3 Signatures: Dispatcher [employer] EDNunu Hanson Lee, HENRY-C HENRY-Jules Neumann DO DO ms3 Rafia Layne, RN RORY Tino Keith, RORY RN rg5 Corrections: (The following items were deleted from the chart) 14: 13:03 ms3 bd
[2025-04-30] MEDS ORDERED: FUROSEMIDE 20 MG/ 2ML VIAL ONE (13:32)
[2025-04-30] MEDS ORDERED: HYDROCODONE/APAP 10/325 TAB ONE (13:48)
[2025-04-30] MEDS ORDERED: IPRATROPIUM BROM 0.5MG/2.5ML NEB PRN (13:58)
[2025-04-30] MEDS ORDERED: ONDANSETRON 4 MG/2 ML VIAL IV PRN (13:58)
[2025-04-30] MEDS ORDERED: ALBUTEROL 2.5 MG/3 ML NEB SOL NEB PRN (13:58)
--- NOTE | 2025-04-30 16:02 | P.HP ---
Certification for Inpatient Patient admitted to: Observation With expected LOS: <2 Midnights Patient will require the following post-hospital care: None Practitioner: I am a practitioner with admitting privileges, knowledge of patient current condition, hospital course, and medical plan of care. Services: Services provided to patient in accordance with Admission requirements found in Title 42 Section 412.3 of the Code of Federal Regulations Patient History Date of Service: 04/30/25 Reason for admission: COPD exacerbation History of Present Illness: 70-year-old female with history of COPD, pulmonary fibrosis, MAC,, arthritis, hypothyroidism presents emergency department chief complaint of shortness of breath. She reports that her shortness of breath has persisted despite use of her breathing treatments at home. She had a hospitalization last year which was very complex at [facility] for septic shock, necrotizing pneumonia, PE. She has been on Eliquis since then. She reports that for the last 2 to 3 days she has had an increasing cough with white/greenish sputum. Denies fever or chills. Denies any leg swelling. Patient was evaluated in the emergency department labs were significant for a normal white blood cell count hemoglobin 10.7 hematocrit 33.3 potassium 3.0 chloride 108 BNP 905 chest x-ray shows mild bilateral pulmonary passes probably a combination of pneumonia pneumonitis/pneumonia or interstitial pulmonary edema superimposed over chronic changes. Patient does not appear grossly overloaded, likely chronic changes versus po ssible pneumonia. Patient will be admitted for COPD exacerbation. Allergies flu vaccine 2011-(18-64 yrs) Allergy (Unknown, Verified 08/16/17 18:16) Shortness of breath apremilast [From Otezla] Allergy (Verified 08/16/17 18:16) Unknown aripiprazole [From Abilify] Allergy (Verified 08/16/17 18:16) Unknown quetiapine fumarate [From Seroquel] Allergy (Verified 08/16/17 18:16) Unknown Sulfa (Sulfonamide Antibiotics) Allergy (Verified 03/20/19 23:15) Anaphylaxis H1N1 vaccine Allergy (Uncoded 06/25/15 05:09) Unknown Home Medications: Buspirone HCl 15 mg PO BID 03/21/19 Hydrocodone Bit/Acetaminophen [Hydrocodon-Acetaminophn 10-325] 1 tab PO Q6H PRN 03/21/19 Levothyroxine [Synthroid*] 100 mcg PO DAILY 03/21/19 Metoprolol Tartrate 1 tab PO BID 03/21/19 Pregabalin 1 cap PO BID 03/21/19 Triamcinolone 0.1% Crm [Kenalog 0.1% Cream*] 1 neetu TOP BID 03/21/19 lisinopriL [Prinivil*] 1 tab PO DAILY 03/21/19 Acetaminophen [Tylenol] 325 mg PO Q6H PRN 03/10/25 Apixaban [Eliquis *] 5 mg PO BID 03/10/25 Budesonide/Glycopyr/Formoterol [Breztri Aerosphere Inhaler] 2 puff IH BID 03/10/25 Doxepin HCl [Sinequan*] 150 mg PO BEDTIME 03/10/25 Ipratropium/Albuterol Sulfate [Iprat-Albut 0.5-3(2.5) mg/3 ml] 3 ml IH Q6H PRN 03/10/25 OLANZapine [Zyprexa*] 7.5 mg PO BEDTIME 03/10/25 Omeprazole 20 mg PO DAILY 03/10/25 Polyethyl Gly 3350 [Glycolax*] 17 mg PO DAILY PRN 03/10/25 Sennosides/Docusate Sodium [Senna-S Tablet] 1 each PO BEDTIME 03/10/25 methocarbamoL [Robaxin*] 500 mg PO TID PRN 03/10/25 Apremilast [Otezla] 30 mg PO BID 03/16/25 Duloxetine HCl 20 mg PO DAILY #30 tab 03/19/25 - Past Medical/Surgical History Diabetic: No -: History of MAC -: HTN -: Mitral valve prolapse -: Chronic pain -: Depression with anxiety -: Rheumatoid arthritis -: History of medication overdose -: History of gastric bypass -: GERD -: Hypothyroidism -: COPD, lupus, fibromyalgia -: serotonin syndrome -: L hip replacement -: Gastric Bypass -: -: Cholecystectomy Psychosocial/ Personal History: The patient currently lives with one of her daughters. She is a . She has 4 children. - Family History Father -: Hypertension, Lung disease Notes: copd Mother -: Heart disease, Hypertension, Blood disorders - Social History Alcohol use: No CD- Drugs: Yes Caffeine use: No Review of Systems 10-point ROS is otherwise unremarkable Respiratory: Cough, Shortness of Breath, Sputum Physical Examination - Physical Exam General: Alert, In no apparent distress, Oriented x3 HEENT: Atraumatic, PERRLA, EOMI Neck: Supple, 2+ carotid pulse no bruit, No LAD Respiratory: Diminished Cardiovascular: Regular rate/rhythm, Normal S1 S2 Gastrointestinal: Normal bowel sounds, No tenderness Musculoskeletal: No tenderness Integumentary: No rashes Neurological: Normal gait, Normal speech, Normal strength at 5/5 x4 extr, Normal tone, Normal affect Lymphatics: No axilla or inguinal lymphadenopathy - Studies Laboratory Data (last 24 hrs) 04/30/25 04/30/25 10:14 10:14 WBC 7.30 Hgb 10.7 L Hct 32.3 L Plt Count 113 L Sodium 139 Potassium 3.0 L BUN 12 Creatinine 0.58 Glucose 75 Magnesium 1.7 Total Bilirubin 0.2 AST 13 L ALT 21 Alkaline Phosphatase 54 Assessment and Plan - Plan Assessment: COPD/pulmonary fibrosis with exacerbation on chronic home O2 History of MAC History of PE on chronic anticoagulation Hypokalemia Rheumatoid arthritis Hypertension Chronic pain Plan: COPD/pulmonary fibrosis with exacerbation on chronic home O2 History of MAC History of PE on chronic anticoagulation Continue steroids, nebs Continue Breztri Empiric levofloxacin Reassess respiratory status tomorrow Continue Eliquis Hypokalemia Replacement protocol in place Rheumatoid arthritis Hypertension Chronic pain Continue medications DVT PPX: Eliquis Code status: Full code Discharge Plan: Home - Advance Directives Does patient have a Living Will: No Does patient have a Durable POA for Healthcare: Yes Critical Care: No Time Spent Managing Pts Care (In Minutes): 70
[2025-04-30] MEDS: predniSONE 20 MG TAB PO SCH (17:40)
[2025-04-30] MEDS: HYDROCODONE/APAP 10/325 TAB PO PRN (17:41)
[2025-04-30 18:26] VITALS: BMI 19.3
[2025-04-30] MEDS ORDERED: PNEUMOCOCCAL VACCINE 0.5 ML IMVAC ONE (20:00)
[2025-04-30 20:21] VITALS: O2SAT 94
[2025-04-30] MEDS: APIXABAN 5 MG TABLET PO SCH (21:13)
[2025-04-30] MEDS: OLANZapine 2.5 MG TAB PO ONE (21:43)
[2025-04-30] MEDS: DOXEPIN HCL 25 MG CAP PO ONE (21:43)
[2025-04-30] MEDS: AMITRIPTYLINE 25 MG TAB PO ONE (21:44)
[2025-05-01 07:56] LABS: Anion Gap 7.4 mEq/L (5.0-15.0); BUN Blood Urea Nitrogen 13.0 mg/dL (7-18); Glucose Level 121.0 mg/dL (74-106); Potassium 3.4 mEq/L (3.5-5.1)
[2025-05-01 07:57] LABS: Absolute Lymphocytes (CBC) 0.9 K/uL (0.7-4.9); Hematocrit 30.8 % (36.0-45.0); Hemoglobin 10.4 g/dL (12.0-15.0); MCH 28.6 pg (27.0-35.0); MCHC 33.7 g/dL (32.0-36.0); MCV 84.9 fL (80-100); MPV 9.2 fL (7.6-11.3); Nucleated RBC Absolute Count 0.0 (0-0); Nucleated Red Blood Cells % 0.0 % (0-0); RBC Red Blood Cell Count 3.62 M/uL (3.86-4.86); White Blood Count 6.00 thou/uL (4.3-10.9)
--- NOTE | 2025-05-01 08:18 | P.DS ---
Admission Date: 04/30/25 Discharge Date: 05/01/25 Disposition: ROUTINE DISCHARGE Discharge Condition: GOOD Reason for Admission: COPD exacerbation Brief History of Present Illness: 70-year-old female with history of COPD, pulmonary fibrosis, MAC,, arthritis, hypothyroidism presents emergency department chief complaint of shortness of breath. She reports that her shortness of breath has persisted despite use of her breathing treatments at home. She had a hospitalization last year which was very complex at [facility] for septic shock, necrotizing pneumonia, PE. She has been on Eliquis since then. She reports that for the last 2 to 3 days she has had an increasing cough with white/greenish sputum. Denies fever or chills. Denies any leg swelling. Patient was evaluated in the emergency department labs were significant for a normal white blood cell count hemoglobin 10.7 hematocrit 33.3 potassium 3.0 chloride 108 BNP 905 chest x-ray shows mild bilateral pulmonary passes probably a combination of pneumonia pneumonitis/pneumonia or interstitial pulmonary edema superimposed over chronic changes. Patient does not appear grossly overloaded, likely chronic changes versus possible pneumonia. Patient will be admitted for COPD exacerbation. Hospital Course: Assessment: COPD/pulmonary fibrosis with exacerbation on chronic home O2 History of MAC History of PE on chronic anticoagulation Hypokalemia Rheumatoid arthritis Hypertension Chronic pain Patient was admitted to hospital for COPD exacerbation. She was having shortness of breath and expiratory wheezing when she was in the ER, her symptoms improved after receiving steroids, Levaquin, nebulizer treatments. She is breathing well on her 2 L per nasal cannula at home which she typically wears. No expiratory wheezing noted on exam this morning patient feeling much better. Stable for discharge outpatient follow-up with her primary bi data architect Continue home medications as previously prescribed Prescriptions for prednisone and levofloxacin to be sent to her pharmacy [facility] in [place]. Vital Signs/Physical Exam: Temp Pulse Resp BP Pulse Ox 98.5 F 94 H 18 136/63 95 04/30/25 20:00 04/30/25 20:00 04/30/25 20:00 04/30/25 20:00 04/30/25 20:00 General: Alert, In no apparent distress, Oriented x3 HEENT: Atraumatic, PERRLA Neck: Supple, JVD not distended Respiratory: Diminished Cardiovascular: Regular rate/rhythm, Normal S1 S2 Gastrointestinal: Normal bowel sounds, No tenderness Musculoskeletal: No tenderness Integumentary: No rashes Neurological: Normal speech, Normal affect Laboratory Data at Discharge: WBC 6.00 thou/uL (4.3-10.9) 05/01/25 05:00 Hgb 10.4 g/dL (12.0-15.0) L 05/01/25 05:00 Hct 30.8 % (36.0-45.0) L 05/01/25 05:00 Plt Count 119 thou/uL (152-406) L 05/01/25 05:00 Sodium 139 mEq/L (136-145) 04/30/25 10:14 Potassium 3.0 mEq/L (3.5-5.1) L 04/30/25 10:14 BUN 12 mg/dL (7-18) 04/30/25 10:14 Creatinine 0.58 mg/dL (0.55-1.02) 04/30/25 10:14 Glucose 75 mg/dL (74-106) 04/30/25 10:14 Magnesium 1.7 mg/dL (1.6-2.4) 04/30/25 10:14 Total Bilirubin 0.2 mg/dL (0.2-1.0) 04/30/25 10:14 AST 13 U/L (15-37) L 04/30/25 10:14 ALT 21 U/L (13-56) 04/30/25 10:14 Alkaline Phosphatase 54 U/L (45-117) 04/30/25 10:14 Home Medications: Buspirone HCl 15 mg PO BID 03/21/19 Hydrocodone Bit/Acetaminophen [Hydrocodon-Acetaminophn 10-325] 1 tab PO Q6H PRN 03/21/19 Levothyroxine [Synthroid*] 100 mcg PO DAILY 03/21/19 Metoprolol Tartrate 1 tab PO BID 03/21/19 Pregabalin 1 cap PO BID 03/21/19 Triamcinolone 0.1% Crm [Kenalog 0.1% Cream*] 1 neetu TOP BID 03/21/19 Acetaminophen [Tylenol] 325 mg PO Q6H PRN 03/10/25 Apixaban [Eliquis *] 5 mg PO BID 03/10/25 Budesonide/Glycopyr/Formoterol [Breztri Aerosphere Inhaler] 2 puff IH BID 03/10/25 Doxepin HCl [Sinequan*] 150 mg PO BEDTIME 03/10/25 Ipratropium/Albuterol Sulfate [Iprat-Albut 0.5-3(2.5) mg/3 ml] 3 ml IH Q6H PRN 03/10/25 OLANZapine [Zyprexa*] 7.5 mg PO BEDTIME 03/10/25 Omeprazole 20 mg PO DAILY 03/10/25 Polyethyl Gly 3350 [Glycolax*] 17 mg PO DAILY PRN 03/10/25 Sennosides/Docusate Sodium [Senna-S Tablet] 1 each PO BEDTIME 03/10/25 methocarbamoL [Robaxin*] 500 mg PO TID PRN 03/10/25 Apremilast [Otezla] 30 mg PO BID 03/16/25 Duloxetine HCl 20 mg PO DAILY #30 tab 03/19/25 Celecoxib [Celebrex] 200 mg PO DAILY 04/30/25 levoFLOXacin [Levofloxacin] 750 mg PO DAILY #5 tab 05/01/25 predniSONE [Deltasone*] 10 mg PO BID 7 Days #14 tab 05/01/25 New Medications: predniSONE [Deltasone*] 10 mg PO BID 7 Days #14 tab levoFLOXacin [Levofloxacin] 750 mg PO DAILY #5 tab Physician Discharge Instructions: Patient was admitted to hospital for COPD exacerbation. She was having shortness of breath and expiratory wheezing when she was in the ER, her symptoms improved after receiving steroids, Levaquin, nebulizer treatments. She is breathing well on her 2 L per nasal cannula at home which she typically wears. No expiratory wheezing noted on exam this morning patient feeling much better. Stable for discharge outpatient follow-up with her primary bi data architect Continue home medications as previously prescribed Prescriptions for prednisone and levofloxacin to be sent to her pharmacy [facility] in [place]. Diet: Regular Activity: Ad delmi Followup: NONE,NONE [Primary Care Provider] - 1-2 Weeks Time spent managing pt's care (in minutes): 35
[2025-05-01 08:42] VITALS: BP 164/79; TEMP 97.9
[2025-05-01] MEDS ORDERED: DOXEPIN HCL 25 MG CAP PO SCH (21:00)
[2025-05-01] MEDS ORDERED: OLANZapine 2.5 MG TAB PO SCH (21:00)
== END 2025-05-01 09:58 | disposition home or self-care (01) ==
LOC: ER 09:15 → ERHOLD 13:58 → 2ND 14:37
PROVIDERS: ADMIT Hospitalist; ATTEND Hospitalist
DX: J44.1 Chronic obstructive pulmonary disease with (acute) exacerbation (principal); J84.10 Pulmonary fibrosis, unspecified; E03.9 Hypothyroidism, unspecified; M19.90 Unspecified osteoarthritis, unspecified site; I34.81 Nonrheumatic mitral (valve) annulus calcification; R05.9 Cough, unspecified; I10 Essential (primary) hypertension; G89.29 Other chronic pain; E87.6 Hypokalemia; Z88.2 Allergy status to sulfonamides; Z88.8 Allergy status to other drugs, medicaments and biological substances; Z88.7 Allergy status to serum and vaccine; Z79.01 Long term (current) use of anticoagulants; Z23 Encounter for immunization
CPT/HCPCS: 93005; 85025 ×2; 80048 ×2; 36415; 83735; 80076; 84484; 83880; 71045; J7512 ×3; J1938; 90732; G0378

== ENCOUNTER 2025-05-04 00:42 | Emergency (ER) | payer OTHER ==
[2025-05-04] MEDS ORDERED: HYDROCODONE/APAP 7.5/325 MG TAB ONE (01:12)
--- NOTE | 2025-05-04 02:07 | RAD REPORT ---
Procedure description: XR PELVIS 1-2 VIEWS HISTORY: BLUNT TRAUMA COMPARISON: None Findings: Pelvis: One view Left hip prosthesis in good alignment. The pelvic bones and hips are without evidence of fracture or dislocation. Impression: No acute finding. Electronically signed by: Malik Stinson MD 05/04/2025 01:52 AM CDT RP Due to temporary technical issues with the PACS/9facts reporting system, reports are being chuck d by the in-house radiologist without review as a courtesy to ensure prompt reporting the interpreting radiologist is fully responsible for the content of the report Transcribed Date/Time: 05/04/2025 2:06 AM
--- NOTE | 2025-05-04 02:15 | RAD REPORT ---
EXAM DESCRIPTION: Head C Spine Mpr Wo Con CLINICAL HISTORY: TRAUMA TECHNIQUE: Axial imaging obtained through the head and cervical spine without IV contrast. Sagittal and coronal reconstructions were obtained. COMPARISON: CT head August 25, 2024 FINDINGS: CT head: The paranasal sinuses and mastoid air cells are clear. No apparent skull fracture. The ventricles are normal size. Age-related cerebral small vessel white matter changes are present. S mall area of previous ischemia in the yusef is stable. There is atrophy or previous ischemia involving the left lateral cerebellar hemisphere which is stable. Small focal area of dural thickenin g over the left sylvian fissure and lower posterior frontal region is stable. No acute intracranial hemorrhage is demonstrated. The cerebellar tonsils are in the appropriate position. The pituitary gla nd is normal size. CT cervical spine: Levoconvex curvature with no acute malalignment. No fracture is demonstrated. IMPRESSION: 1: Stable CT head. No acute intracranial finding. 2: No evidence of acute traumatic injury to the cervical spine. RADIATION DOSE REDUCTION: This exam was performed according to our departmental dose-optimization pro gram which includes automated exposure control, adjustment of the mA and/or kV according to patient size and/or use of iterative reconstruction technique. Electronically signed by: Malik Stinson MD 05/04/2025 02:12 AM CDT RP Due to temporary technical issues with the PACS/[employer] reporting system, reports are being chuck d by the in-house radiologist without review as a courtesy to ensure prompt reporting the interpreting radiologist is fully responsible for the content of the report. Transcribed Date/Time: 05/04/2025 2:15 AM
--- NOTE | 2025-05-04 02:19 | ER ---
Nurse's Notes [facility] Name: Heidy Robison Age: 70 yrs Sex: Female : 1955 Arrival Date: 05/04/2025 Time: 00:42 Bed 19 Private MD: Diagnosis: Unspecified injury of head, initial encounter;Pain in right hip;Fall on same level, unspecified Presentation: 05/04 00:46 Chief complaint: EMS states: FELL DOWN AROUND 1130. REPORTS HEADACHE AND HEMATOMA ON ha1 THE BACK OF HEAD. NO LOC. ON BLOOD THINNERS. 00:46 Coronavirus screen: Client denies travel out of the [place] in the last 14 days. Ebola ha1 Screen: No symptoms or risks identified at this time. Initial Sepsis Screen: Does the patient meet any 2 criteria? No. Patient's initial sepsis screen is negative. Does the patient have a suspected source of infection? No. Patient's initial sepsis screen is negative. Risk Assessment: Do you want to hurt yourself or someone else? Patient reports no desire to harm self or others. Onset of symptoms was May 04, 2025. 00:46 Method Of Arrival: EMS: [facility] ha1 00:46 Acuity: ADELE 3 ha1 Triage Assessment: 00:55 General: Appears comfortable, Behavior is calm, cooperative. Pain: Complains of pain in ha1 BACK OF HEAD Pain currently is 6 out of 10 on a pain scale. Quality of pain is described as aching. Neuro: Level of Consciousness is awake, alert, obeys commands, Oriented to person, place, time, situation. Cardiovascular: Patient's skin is warm and dry. Respiratory: Airway is patent Respiratory effort is even, unlabored, Respiratory pattern is regular, symmetrical. Historical: - Allergies: 00:55 Abilify; ha1 00:55 Ambien CR; ha1 00:55 apremilast; ha1 00:55 Doxepin; ha1 00:55 FLU VACCINE; ha1 00:55 Seroquel; ha1 00:55 Sulfa (Sulfonamide Antibiotics); ha1 - PMHx: 00:55 4 bulging discs; Anxiety; COPD; CVA; Depression; Fibromyalgia; HTN; INFECTIOUS LUNG ha1 DISORDER; Lupus; MAC; RA; SEROTONIN SYNDROME; - PSHx: 00:55 c section; Cholecystectomy; g bypass; hysterectomy; Tonsillectomy; ha1 - Immunization history:: Adult Immunizations up to date. - Infectious Disease History:: Denies. - Social history:: Smoking status: Patient/guardian denies using tobacco, the patient reports quitting approximately 20 years ago. Screenin:10 [facility] ED Fall Risk Assessment (Adult) History of falling in the last 3 months, ss12 including since admission Yes- single mechanical fall (1 pt) Confusion or Disorientation No (0 pts) Intoxicated or Sedated No (0 pts) Impaired Gait No (0 pts) Mobility Assist Device Used No (0 pt) Altered Elimination No (0 pt) Score/Fall Risk Level 0 - 2 = Low Risk Oriented to surroundings, Maintained a safe environment, Educated pt \T\ family on fall prevention, incl call for assistance when getting out of bed, Assessed \T\ reinforced patient's understanding of fall precautions. Abuse screen: Denies threats or abuse. Denies injuries from another. Abuse screen: Denies threats or abuse. Denies injuries from another. Nutritional screening: No deficits noted. Tuberculosis screening: No symptoms or risk factors identified. Assessment: 00:50 General: Appears in no apparent distress. comfortable, Behavior is calm, cooperative, ss12 quiet. Pain: Complains of pain in headache, right hip pain Pain currently is 7 out of 10 on a pain scale. Neuro: Level of Consciousness is awake, alert, obeys commands, Oriented to person, place, time, situation. Cardiovascular: Patient's skin is warm and dry. Rhythm is regular. Respiratory: Airway is patent Respiratory effort is even, unlabored, Respiratory pattern is regular, symmetrical. GI: No deficits noted. : No deficits noted. EENT: No deficits noted. Derm: Skin is intact, Skin is dry, Skin is pink, warm \T\ dry. normal. Injury Description: had fall at home from standing position. hematoma on right temporal lobe approximately golf ball size noted. 01:50 Reassessment: Patient and/or family updated on plan of care and expected duration. Pain ss12 level reassessed. Patient is alert, oriented x 3, equal unlabored respirations, skin warm/dry/pink. 02:45 Reassessment: Patient and/or family updated on plan of care and expected duration. Pain ss12 level reassessed. Patient is alert, oriented x 3, equal unlabored respirations, skin warm/dry/pink. Vital Signs: 00:46 BP 108 / 94; Pulse 62; Resp 18 S; Temp 97.6(O); Pulse Ox 99% on R/A; Weight 52.62 kg; ha1 Height 5 ft. 4 in. ; Pain 6/10; 01:15 BP 159 / 69; Pulse 59; Resp 16 S; Pulse Ox 98% on R/A; ss12 02:30 BP 134 / 74; Pulse 59; Resp 16 S; Pulse Ox 97% on R/A; ss12 00:46 Body Mass Index 19.91 (52.62 kg, 162.56 cm) ha1 00:46 Pain Scale: Adult ha1 ED Course: 00:46 Patient arrived in ED. rv1 00:47 Jaspreet Vogel RN is Primary Nurse. ss12 00:48 Parish Moralez DO is Attending Physician. tt7 00:55 Triage completed. ha1 01:26 XRAY Pelvis In Process Unspecified. EDMS 01:41 CT Head C Spine In Process Unspecified. EDMS 02:11 Arm band placed on right wrist. ss12 02:11 Patient has correct armband on for positive identification. Provided Education on: plan ss12 of care discussed with the patient. 02:12 No provider procedures requiring assistance completed. ss12 02:46 Patient did not have IV access during this emergency room visit. ss12 Administered Medications: 01:10 Drug: Hydrocodone-Acetaminophen PO (7.5 mg-325 mg) 1 tabs PO once Route: PO; ss12 02:32 Follow up: Response: No adverse reaction; Pain is decreased ss12 Medication: 02:11 VIS not applicable for this client. ss12 Outcome: 02:19 Discharge ordered by MD. tt7 02:46 Discharged to home ambulatory, ss12 02:46 Condition: stable 02:46 Discharge instructions given to patient, Instructed on discharge instructions, follow up and referral plans. Demonstrated understanding of instructions, follow-up care, Prescriptions given X 02:47 Patient left the ED. ss12 Signatures: Dispatcher [employer] EDMS Brandi Jones RN RN ha1 Laila Thapa rv1 Jaspreet Vogel RN RN ss12 Parish Moralez DO DO tt7 Corrections: (The following items were deleted from the chart) 02:13 00:50 Injury Description: hematoma on right temporal lobe approximately golf ball size ss12 ss12
--- NOTE | 2025-05-04 02:19 | EDPHYS ---
Physician Documentation [facility] Name: Heidy Robison Age: 70 yrs Sex: Female : 1955 Arrival Date: 05/04/2025 Time: 00:42 Bed 19 Private MD: ED Physician Parish Moralez HPI: 05/04 00:57 This 70 yrs old Female presents to ER via EMS with complaints of head injury. tt7 00:57 Patient reports that she was having difficulty sleeping this evening so she went to go tt7 sleep in her recliner when she tripped and fell hitting the back of the right side of her head, she denies loss of consciousness but reports feeling disoriented and "seeing stars". She reports being on chronic anticoagulation with Eliquis and last took a dose at 6 AM. Historical: - Allergies: 00:55 Abilify; ha1 00:55 Ambien CR; ha1 00:55 apremilast; ha1 00:55 Doxepin; ha1 00:55 FLU VACCINE; ha1 00:55 Seroquel; ha1 00:55 Sulfa (Sulfonamide Antibiotics); ha1 - PMHx: 00:55 4 bulging discs; Anxiety; COPD; CVA; Depression; Fibromyalgia; HTN; INFECTIOUS LUNG ha1 DISORDER; Lupus; MAC; RA; SEROTONIN SYNDROME; - PSHx: 00:55 c section; Cholecystectomy; g bypass; hysterectomy; Tonsillectomy; ha1 - Immunization history:: Adult Immunizations up to date. - Infectious Disease History:: Denies. - Social history:: Smoking status: Patient/guardian denies using tobacco, the patient reports quitting approximately 20 years ago. ROS: 01:00 Constitutional: negative for fever. Cardiovascular: negative for chest pain. tt7 Respiratory: negative for shortness of breath. Abdomen/GI: negative for abdominal pain, nausea, vomiting, diarrhea. MS/Extremity: negative for injury and deformity. Skin: negative for rash. Neuro: negative for focal weakness. Exam: 01:00 Constitutional: vital signs reviewed, well appearing. Head/Face: Moderate right sided tt7 parieto-occipital hematoma, no palpable skull fracture, no Pedro sign or raccoon eyes Eyes: PERRL, EOMI, no conjunctival injection, anicteric sclerae. ENT: mucus membranes moist, no oral trauma. Neck: No cervical spine tenderness, trachea midline, no JVD, no meningismus. Chest/axilla: normal chest wall appearance and motion, nontender, no crepitus. Cardiovascular: regular rate and rhythm, no murmurs, no rubs, no lower extremity edema. Respiratory: normal respiratory effort, no accessory muscle use, lungs CTAB. Abdomen/GI: soft, nondistended, nontender, no guarding or rebound, negative Chapin's sign, no McBurney point tenderness. Back: normal ROM. Skin: warm, dry, intact, normal turgor, normal color, no rash. MS/ Extremity: normal ROM of extremities, no gross deformities. Neuro: alert and oriented with appropriate mental status, normal speech, follows commands, no focal neurologic deficits. Psych: appropriate mood and affect. Vital Signs: 00:46 BP 108 / 94; Pulse 62; Resp 18 S; Temp 97.6(O); Pulse Ox 99% on R/A; Weight 52.62 kg; ha1 Height 5 ft. 4 in. ; Pain 6/10; 01:15 BP 159 / 69; Pulse 59; Resp 16 S; Pulse Ox 98% on R/A; ss12 02:30 BP 134 / 74; Pulse 59; Resp 16 S; Pulse Ox 97% on R/A; ss12 00:46 Body Mass Index 19.91 (52.62 kg, 162.56 cm) ha1 00:46 Pain Scale: Adult ha1 MDM: 00:48 Medical Screening Exam initiated tt7 01:01 Differential diagnosis: closed head injury, extremity fracture, C spine fracture, tt7 Intracranial hemorrhage. Data reviewed: vital signs, nurses notes, radiologic studies. ED course: Well-appearing 70-year-old with trip and fall and closed head injury, chronically anticoagulated on Eliquis, will obtain CT imaging of the head and cervical spine to rule out serious acute traumatic injury, patient also having some soreness to the right hip so we'll obtain x-ray imaging although I have very low suspicion for acute fracture of this, patient's pain treated with Mikado. 01:11 ED course: I called CT to bring patient back immediately for CT imaging of the head to tt7 rule out intracranial hemorrhage. 02:10 ED course: On my independent interpretation of x-ray imaging of the pelvis, there is no tt7 acute fracture or dislocation. 02:10 ED course: On my independent interpretation of the patient's CT imaging of the head, tt7 there is no evidence of acute intracranial hemorrhage. 02:17 ED course: After completion of the patient's emergency department evaluation, I do not tt7 suspect a life-threatening or disabling process. Patient is medically stable and not in need of emergent medical intervention. I had a detailed discussion with the patient regarding the historical points, exam findings, emergency department evaluation, diagnostic results, and the discharge diagnosis. I instructed the patient on outpatient management of their condition. I discussed the need for outpatient follow-up with a primary care physician. I informed the patient on return precautions, including the need to return to the ED if symptoms do not improve, worsen, or if there are any questions or concerns that arise at home. The patient was discharged in stable condition. 05/04 00:48 Order name: CT Head C Spine tt7 05/04 00:55 Order name: XRAY Pelvis tt7 Administered Medications: 01:10 Drug: Hydrocodone-Acetaminophen PO (7.5 mg-325 mg) 1 tabs PO once Route: PO; ss12 02:32 Follow up: Response: No adverse reaction; Pain is decreased ss12 Disposition: 02:19 Co-signature as Attending Physician, Parish Moralez DO. tt7 Disposition Summary: 05/04/25 02:19 Discharge Ordered Notes: Location: Home tt7 Problem: new tt7 Symptoms: have improved tt7 Condition: Stable tt7 Diagnosis - Unspecified injury of head, initial encounter tt7 - Pain in right hip tt7 - Fall on same level, unspecified tt7 Followup: tt7 - With: Emergency Department - When: As needed - Reason: Followup: tt7 - With: Private Physician - When: 1 - 2 days - Reason: Recheck today's complaints, Re-evaluation by your physician Discharge Instructions: - Discharge Summary Sheet tt7 - Head Injury, Adult, [id number] tt7 Forms: - Medication Reconciliation Form tt7 - Antibiotic Education tt7 - Prescription Opioid Use tt7 - Patient Portal Instructions tt7 - Leadership Thank You Letter tt7 Signatures: Dispatcher [facility] Brandi Emmanuel RN RN ha1 Jaspreet Vogel RN RN ss12 [place], Parish, DO DO tt7 Corrections: (The following items were deleted from the chart) 02:18 02:10 ED course: On my independent interpretation of the patient's CT imaging of the tt7 head, there is. tt7
[2025-05-04 09:13] VITALS: TEMP 97.6
[2025-05-04 09:16] VITALS: BP 134/74; O2SAT 97
== END 2025-05-04 02:47 | disposition home or self-care (01) ==
LOC: ER 00:42
DX: S09.90XA Unspecified injury of head, initial encounter (principal); M25.551 Pain in right hip; W18.09XA Striking against other object with subsequent fall, initial encounter; Z79.01 Long term (current) use of anticoagulants
CPT/HCPCS: 70450; 72125; 72170; 99284